=== PATIENT | female | born 1975 | race Hispanic/Latino ===

== ENCOUNTER 2020-02-18 09:48 | Emergency (ER) | payer OTHER ==
[2020-02-18] MEDS ORDERED: KETOROLAC 30 MG/ML INJ ONE (10:41)
[2020-02-18 10:46] LABS: Absolute Lymphocytes (CBC) 1.8 K/uL (0.7-4.9); Basophils % 0.7 % (0-1.3); Hematocrit 38.1 % (36.0-45.0); Lymphocytes % 20.5 % (15.3-44.8); MPV 9.2 fL (7.6-11.3); RBC Red Blood Cell Count 4.45 M/uL (3.86-4.86)
[2020-02-18 11:02] LABS: Potassium 4.1 mmol/L (3.5-5.1)
--- NOTE | 2020-02-18 11:31 | RAD REPORT ---
EXAM DESCRIPTION: CT - Chest For Pe Angio - 02/18/2020 11:22 am CLINICAL HISTORY: CHEST PAIN COMPARISON: Chest Single View dated 02/18/2020 TECHNIQUE: Dynamically enhanced 3 mm thick images of the chest were obtained during administration o f approximately 150mL Isovue 370 IV contrast. Coronal and oblique MIP reconstruction images were gene rated and reviewed. Exam utilizes a protocol to evaluate the pulmonary arterial tree. All CT scans are performed using dose optimization technique as appropriate and may include automated exposure control or mA/KV adjustment according to patient size. FINDINGS: No pulmonary emboli are identified. The aorta as imaged shows no acute or suspicious finding. No pericardial thickening or effusion. No infiltrate or suspicious mass lesion identified. No interstitial edema suspected. Patient has a fe w small subpleural nodules 4 mm or less in size. The size these are not regarded as significant. No p leural effusion or pleural thickening. No mediastinal or hilar suspicious masses. No chest wall masses or abnormal axillary lymphadenopathy. No sub clinical rib fracture or pathologic rib process identifiable. IMPRESSION: No pulmonary emboli identified. As detailed above, no acute or significant findings identifiable.
[2020-02-18] MEDS ORDERED: ONDANSETRON 4 MG/2 ML VIAL ONE (11:43)
[2020-02-18] MEDS ORDERED: MEPERIDINE HCL 25 MG/ML SYR ONE (11:43)
--- NOTE | 2020-02-18 12:06 | RAD REPORT ---
EXAM DESCRIPTION: RAD - Chest Single View - 02/18/2020 11:07 am CLINICAL HISTORY: CHEST PAIN, left-sided rib pain COMPARISON: June 2014 TECHNIQUE: AP portable chest image was obtained 02/18/2020 11:07 am . FINDINGS: Lungs are clear. Heart and vasculature are normal. No measurable pleural effusion and no p neumothorax. No acute bony abnormality seen. No acute aortic findings suspected. IMPRESSION: No acute cardiopulmonary process. No significant interval change.
--- NOTE | 2020-02-18 12:12 | EDPHYS ---
Physician Documentation [facility] Name: Rody Carroll Age: 44 yrs Sex: Female : 1975 Arrival Date: 02/18/2020 Time: 09:49 Bed 5 Private MD: ED Physician Nic Bates HPI: 02/17 10:26 This 44 yrs old Female presents to ER via Ambulatory with complaints of Back rn Pain, Rib Pain. 10:26 This 44 yrs old Female presents to ER via Ambulatory with complaints of rib rn pain. 10:26 The patient presents with pain that is acute, with no known mechanism of injury. rn 10:27 The patient or guardian reports chest pain that is located primarily in the left rn lateral posterior chest. Onset: 2 week(s) ago. The pain does not radiate. Associated signs and symptoms: Pertinent positives: cough, Pertinent negatives: abdominal pain, diaphoresis, lightheadedness, near syncope, recent travel, shortness of breath, syncope. The chest pain is described as sharp, stabbing. Duration: The patient or guardian reports multiple episodes, that are intermittent. Modifying factors: The symptoms are alleviated by nothing. the symptoms are aggravated by deep breath, movement, palpation of area. Severity of pain: At its worst the pain was moderate in the emergency department the pain is unchanged. The patient has not experienced similar symptoms in the past. Reports left posterior lateral rib pain, no trauma, + smoker, no hemoptysis. Reports pain with deep breath and palpation. Does not feel ill. . 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 - Social history:: Smoking status: Patient reports the use of cigarette tobacco products, smokes one pack cigarettes per day. - Family history:: not pertinent. - Hospitalizations: : No recent hospitalization is reported. ROS: 10:27 Constitutional: Negative for fever, chills, and weight loss, Eyes: Negative for injury, rn pain, redness, and discharge, Cardiovascular: Negative for palpitations, and edema, Respiratory: Negative for shortness of breath, wheezing Abdomen/GI: Negative for abdominal pain, nausea, vomiting, diarrhea, and constipation, Back: Negative for injury and pain, MS/Extremity: Negative for injury and deformity, Skin: Negative for injury, rash, and discoloration, Neuro: Negative for headache, weakness, numbness, tingling, and seizure. Exam: 10:27 Constitutional: This is a well developed, well nourished patient who is awake, alert, rn and in no acute distress. Head/Face: Normocephalic, atraumatic. Chest/axilla: Normal chest wall appearance and motion. Cardiovascular: Regular rate and rhythm. No pulse deficits. Respiratory: No increased work of breathing, no retractions or nasal flaring. Clear bilateral breath sounds. Abdomen/GI: soft, non-tender Back: No spinal tenderness. No costovertebral tenderness. Full range of motion. Skin: Warm, dry with normal turgor. Normal color with no rashes, no lesions, and no evidence of cellulitis. MS/ Extremity: Pulses equal, no cyanosis. Neurovascular intact. Full, normal range of motion. Equal circumference. Neuro: Awake and alert, GCS 15 Vital Signs: 09:55 BP 138 / 86; Pulse 101; Resp 19; Temp 98.0(O); Pulse Ox 99% on R/A; Weight 90.72 kg; ss Height 5 ft. 5 in. (165.10 cm); Pain 10/10; 10:40 BP 109 / 98; Pulse 89; Resp 18; Pulse Ox 98% on R/A; tw2 11:00 BP 111 / 84; Pulse 87; Resp 17; Pulse Ox 100% on R/A; tw2 11:27 Pain 9/10; tw2 12:00 BP 104 / 72; Pulse 85; Resp 20; Pulse Ox 98% ; tw2 09:55 Body Mass Index 33.28 (90.72 kg, 165.10 cm) ss MDM: 09:58 Patient medically screened. rn 12:09 Differential diagnosis: acute pericarditis, anxiety, chest wall pain, costochondritis, rn gastroesophageal reflux disease (GERD), pericarditis, pleurisy, pneumonia, pneumothorax, pulmonary embolus. Data reviewed: vital signs, nurses notes, lab test result(s), EKG, radiologic studies, CT scan, plain films, and as a result, I will discharge patient. Counseling: I had a detailed discussion with the patient and/or guardian regarding: the historical points, exam findings, and any diagnostic results supporting the discharge/admit diagnosis, lab results, radiology results, the need for outpatient follow up, to return to the emergency department if symptoms worsen or persist or if there are any questions or concerns that arise at home. Response to treatment: the patient's symptoms have mildly improved after treatment, and as a result, I will discharge patient. Special discussion: I discussed with the patient/guardian in detail that at this point there is no indication for admission to the hospital. It is understood, however, that if the symptoms persist or worsen the patient needs to return immediately for re-evaluation. ED course: No acute findings on bloodwork or CT PE protocol. Will dc home with recommendation to quit smoking and anti-inflammatories. . 12:12 Counseling: I had a detailed discussion with the patient and/or guardian regarding: rn smoking cessation. 02/17 10:16 Order name: CBC with Diff; Complete Time: 11: rn 02/17 10:16 Order name: Basic Metabolic Panel; Complete Time: 11: rn 02/17 10:16 Order name: XRAY Chest (1 view); Complete Time: 12:07 rn 02/17 10:16 Order name: D-Dimer; Complete Time: 11: rn 02/17 11:03 Order name: CT Chest For PE Angio; Complete Time: 12:07 rn 02/17 10:16 Order name: IV Start; Complete Time: 10:38 rn 02/17 10:16 Order name: EKG; Complete Time: 10:17 rn 02/17 10:16 Order name: EKG - Nurse/Tech; Complete Time: 11:02 rn Administered Medications: 10:38 Drug: TORadol - Ketorolac 15 mg Route: IVP; Site: left antecubital; tw2 11:27 Follow up: Pain 12/24 Adult; Response: No adverse reaction; Pain is unchanged, physician tw2 notified 11:32 Drug: Zofran (Ondansetron) 4 mg Route: IVP; Site: left antecubital; tw2 12:00 Follow up: Response: No adverse reaction tw2 11:34 Drug: Demerol 25 mg {Note: RASS 0.} Route: IVP; Site: left antecubital; tw2 12:00 Follow up: Response: No adverse reaction; Pain is decreased; RASS: Alert and Calm (0) tw2 Disposition: 02/18/20 12:11 Discharged to Home. Impression: Pleurisy. - Condition is Stable. - Discharge Instructions: Pleurisy. - Prescriptions for Ibuprofen 800 mg Oral Tablet - take 1 tablet by ORAL route every 12 hours As needed take with food; 20 tablet. - Medication Reconciliation Form, Thank You Letter, Antibiotic Education, Prescription Opioid Use, Work release form form. - Follow up: Private Physician; When: As needed; Reason: Recheck today's complaints, Re-evaluation by your physician. - Problem is new. - Symptoms have improved. Signatures: Dispatcher [employer] EDMS Nic Bates MD MD rn Smirch, Shelby, RN RN ss Wise, Tara, RN RN tw2 Corrections: (The following items were deleted from the chart) 12:29 12:11 02/18/2020 12:11 Discharged to Home. Impression: Pleurisy. Condition is Stable. tw2 Forms are Medication Reconciliation Form, Thank You Letter, Antibiotic Education, Prescription Opioid Use. Follow up: Private Physician; When: As needed; Reason: Recheck today's complaints, Re-evaluation by your physician. Problem is new. Symptoms have improved. rn
--- NOTE | 2020-02-18 12:12 | ER ---
Nurse's Notes [facility] Name: Rody Carroll Age: 44 yrs Sex: Female : 1975 Arrival Date: 02/18/2020 Time: 09:49 Bed 5 Private MD: Diagnosis: Pleurisy Presentation: 02/17 09:55 Chief complaint: Patient states: pain to L side of ribs x 2 weeks. No known injury. Pt ss states. "I just woke up like this one day." Denies fever, cough and/or SOB. Coronavirus screen: Client denies travel out of the [place] in the last 14 days. At this time, the client does not indicate any symptoms associated with coronavirus-19. Ebola Screen: Patient denies exposure to infectious person. Patient denies travel to an Ebola-affected area in the 21 days before illness onset. Initial Sepsis Screen: Does the patient meet any 2 criteria? HR > 90 bpm. No. Patient's initial sepsis screen is negative. Does the patient have a suspected source of infection? No. Patient's initial sepsis screen is negative. Risk Assessment: Do you want to hurt yourself or someone else? Patient reports no desire to harm self or others. Onset of symptoms was February 04, 2020. 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 - Social history:: Smoking status: Patient reports the use of cigarette tobacco products, smokes one pack cigarettes per day. - Family history:: not pertinent. - Hospitalizations: : No recent hospitalization is reported. Screenin:00 Abuse screen: Denies threats or abuse. Nutritional screening: No deficits noted. tw2 Tuberculosis screening: No symptoms or risk factors identified. Fall Risk None identified. Assessment: 10:10 General: Appears in no apparent distress. well groomed, Behavior is calm, cooperative, tw2 appropriate for age. Pain: Complains of pain in left lateral posterior chest. Neuro: Level of Consciousness is awake, alert, obeys commands, Oriented to person, place, time, situation. Cardiovascular: Heart tones S1 S2 Capillary refill < 3 seconds Patient's skin is warm and dry. Respiratory: Airway is patent Respiratory effort is even, unlabored, Respiratory pattern is regular, agonal Breath sounds are clear bilaterally. Respiratory: Reports cough that is non-productive. GI: No signs and/or symptoms were reported involving the gastrointestinal system. Abdomen is round non-distended, Bowel sounds present X 4 quads. : No signs and/or symptoms were reported regarding the genitourinary system. EENT: No signs and/or symptoms were reported regarding the EENT system. Derm: No signs and/or symptoms reported regarding the dermatologic system. Musculoskeletal: Reports pain in left lateral posterior chest. 11:00 Reassessment: Patient appears in no apparent distress at this time. No changes from tw2 previously documented assessment. Patient and/or family updated on plan of care and expected duration. Pain level reassessed. Patient is alert, oriented x 3, equal unlabored respirations, skin warm/dry/pink. xray at bedside at this time. 11:27 Reassessment: pt back from CT at this time, states "my pain is still the same not tw2 better, can i get something else for pain", provider notified and medicated as ordered. 12:15 Reassessment: Patient appears in no apparent distress at this time. No changes from tw2 previously documented assessment. Patient and/or family updated on plan of care and expected duration. Pain level reassessed. Patient is alert, oriented x 3, equal unlabored respirations, skin warm/dry/pink. 12:15 Reassessment: provider at bedside at this time discussing results. tw2 12:20 Reassessment: pt in restroom at this time. tw2 12:28 Reassessment: Patient appears in no apparent distress at this time. No changes from tw2 previously documented assessment. Patient and/or family updated on plan of care and expected duration. Pain level reassessed. Patient is alert, oriented x 3, equal unlabored respirations, skin warm/dry/pink. Vital Signs: 09:55 BP 138 / 86; Pulse 101; Resp 19; Temp 98.0(O); Pulse Ox 99% on R/A; Weight 90.72 kg; ss Height 5 ft. 5 in. (165.10 cm); Pain 10/10; 10:40 BP 109 / 98; Pulse 89; Resp 18; Pulse Ox 98% on R/A; tw2 11:00 BP 111 / 84; Pulse 87; Resp 17; Pulse Ox 100% on R/A; tw2 11:27 Pain 9/10; tw2 12:00 BP 104 / 72; Pulse 85; Resp 20; Pulse Ox 98% ; tw2 09:55 Body Mass Index 33.28 (90.72 kg, 165.10 cm) ED Course: 09:49 Patient arrived in ED. as 09:56 Triage completed. ss 09:57 Arm band placed on right wrist. ss 09:58 Nic Bates MD is Attending Physician. rn 09:59 Kaley Blanco RN is Primary Nurse. tw2 10:00 Placed in gown. Bed in low position. Call light in reach. Pulse ox on. NIBP on. Warm tw2 blanket given. 10:35 Inserted saline lock: 20 gauge in left antecubital area, using aseptic technique. Blood tw2 collected. 10:59 Notified ED physician of a critical lab result(s). D-Dimer 815 per Mer Morales Tech. tw2 11:07 XRAY Chest (1 view) In Process Unspecified. EDMS 11:23 CT Chest For PE Angio In Process Unspecified. EDMS 12:29 No provider procedures requiring assistance completed. IV discontinued, intact, tw2 bleeding controlled, No redness/swelling at site. Pressure dressing applied. Administered Medications: 10:38 Drug: TORadol - Ketorolac 15 mg Route: IVP; Site: left antecubital; tw2 11:27 Follow up: Pain 9/10 Adult; Response: No adverse reaction; Pain is unchanged, physician tw2 notified 11:32 Drug: Zofran (Ondansetron) 4 mg Route: IVP; Site: left antecubital; tw2 12:00 Follow up: Response: No adverse reaction tw2 11:34 Drug: Demerol 25 mg {Note: RASS 0.} Route: IVP; Site: left antecubital; tw2 12:00 Follow up: Response: No adverse reaction; Pain is decreased; RASS: Alert and Calm (0) tw2 Outcome: 12:11 Discharge ordered by . rn 12:29 Discharged to home ambulatory, with friend. tw2 12:29 Condition: stable 12:29 Discharge instructions given to patient, friend, Instructed on discharge instructions, follow up and referral plans. medication usage, Demonstrated understanding of instructions, follow-up care, medications, Prescriptions given X 1. 12:29 Patient left the ED. tw2 Signatures: Dispatcher [employer] EDAyleen Palencia Roman, MD MD rn Smirch, Shelby, RN RN Kaley Blanco RN RN tw2 Corrections: (The following items were deleted from the chart) 11:35 10:34 Demerol 25 mg IVP in left antecubital tw2 tw2
[2020-02-18 12:59] VITALS: TEMP 98
[2020-02-18 13:12] VITALS: BP 104/72; O2SAT 98
--- NOTE | 2020-02-19 07:35 | EKG ---
Test Date: 2020-02-18 Test Time: 10:30:34 Driver Wheelchair: BONITA MEASUREMENT RESULTS: Intervals: Rate: 81 CO: 132 QRSD: 76 QT: 376 QTc: 436 [place]: P: 62 CO: 132 QRS: 70 T: 51 INTERPRETIVE STATEMENTS: Normal sinus rhythm Normal ECG Compared to ECG 01/31/2015 20:56:26 No significant changes Electronically Signed On 02-19-20 07:32:34 PORTABLE PINCH RIVETER by Saji Heard
== END 2020-02-18 12:29 | disposition home or self-care (01) ==
LOC: ER 09:48
DX: R09.1 Pleurisy (principal); I10 Essential (primary) hypertension; F17.210 Nicotine dependence, cigarettes, uncomplicated
CPT/HCPCS: 93005; 85025; 80048; 36415; 85379; 71275; 71045; 96375; 96374; 99284; Q9967; J2175; J2405

== ENCOUNTER 2020-03-29 19:21 | Emergency (ER) | payer OTHER ==
--- OUTSIDE RECORDS SUMMARY | 2020-03-29 19:22 | XMS REPORT | Summary of Care ---
:1975 Author Organization [address] [address] Care Team Providers Name Role Phone Pcp, Does Not Have A Primary Care Provider Reason for Visit Reason Comments Refill Request Encounter Details Date Type Department Care Team Description 01/27/2020 Refill [facility] Internal Yolande Saldivar, AGRONOMY LOCATION MANAGER Refill Request Medicine- [address] [facility] [place] [address] [facility] Baljit Kate, [address] [place] [address] Allergies No Known Allergiesdocumented as of this encounter (statuses as of 01/29/2020) Medications Medication Sig Dispensed Refills Start End Status Date Date albuterol 90 Inhale 2 8.5 g 2 Active mcg/actuation inhaler Puffs every 6 8 (six) hours as needed for Wheezing or Shortness of Breath. famotidine (PEPCID AC) Take 1 tablet 60 tablet 2 Active 20 mg by mouth 2 0 tabletIndications: (two) times Gastroesophageal reflux daily. disease, esophagitis presence not specified phenytoin Extended Take 4 360 capsule 3 Active (DILANTIN) 100 mg capsules by 0 capsuleIndications: mouth daily. Schizophrenia, unspecified type levothyroxine 150 mcg Take 1 tablet 90 tablet 3 Active tabletIndications: by mouth 0 Hypothyroidism, every unspecified type morning. cholestyramine 4 gram Take 0.5 180 g 2 Active powderIndications: Packets by 0 Postcholecystectomy mouth 3 diarrhea (three) times daily with meals. lithium carbonate 300 Take 100 mg 0 Active mg tablet by mouth 2 0 (two) times daily. FLUoxetine 60 mg tablet Take 60 mg by 0 Active mouth daily. 0 QUEtiapine 200 mg Take 200 mg 0 Active tablet by mouth at 0 bedtime. pantoprazole 40 mg EC Take 1 tablet 90 tablet 1 Active tabletIndications: by mouth once 0 Gastroesophageal reflux daily as disease, esophagitis needed for presence not specified Indigestion. LORazepam 1 mg Take 1 tablet 10 tablet 0 A ctive tabletIndications: by mouth once 0 Panic disorder daily as needed for Anxiety or Agitation. doxycycline monohydrate Take 1 28 capsule 0 Active 100 mg capsule by 0 capsuleIndications: mouth 2 (two) Hidradenitis times daily. suppurativa FLUTICASONE PROPIONATE SHAKE LIQUID 16 g 3 Active 50 mcg/actuation nasal AND USE 2 0 sprayIndications: SPRAYS IN Allergic rhinitis, EACH NOSTRIL unspecified DAILY seasonality, unspecified trigger fluticasone propionate Use 2 Sprays 16 g 3 01/14 5/2 Discontinued (FLONASE ALLERGY in each 0 020 RELIEF) 50 nostril mcg/actuation nasal daily. sprayIndications: Allergic rhinitis, unspecified seasonality, unspecified trigger documented as of this encounter (statuses as of 01/29/2020) Active Problems Problem Noted Date Other specified complication of , unspecified as to episode of 11/05/2008 care documented as of this encounter (statuses as of 01/29/2020) Social History Tobacco Use Types Packs/Day Years Used Date Current Every Day Smoker Smokeless Tobacco: Never Used Alcohol Use Drinks/Week oz/Week Comments No Sex Assigned at Date Recorded Not on file documented as of this encounter Last Filed Vital Signs Not on filedocumented in this encounter Plan of Treatment Health Maintenance Due Date Last Done Comments PNEUMOCOCCAL 0-64 YEARS COMBINED SERIES (1 1982 of 1 - PPSV23) DTaP,Tdap,and Td Vaccines (1 - Tdap) 12/12/1995 Breast Cancer Screening (MAMMOGRAM) 04/05/2019 04/05/2018 INFLUENZA VACCINE (#1) 2019 Depression Screening 04/04/2020 04/04/2019, 04/04/2019 PAP SMEAR 03/16/2021 03/16/2018 documented as of this encounter Results Not on filedocumented in this encounter Visit Diagnoses Diagnosis Allergic rhinitis, unspecified seasonali ty, unspecified trigger documented in this encounter Insurance Payer Benefit Plan / Subscriber ID Effective Phone Address T ype Group Dates [facility] MEDICAID OF [id number] 2019-Pres [phone] [facility] [id number] [place] [address] [facility] MEDICAID OF [id number] 2019-Pres [phone] [address] Medi [facility] ent [phone] [place] [address] [employer] [id number] 2019-Pres [address] [place] [id number] [place] [address] [employer] VISION - [employer] VISION [id number] 2017-Pre ELKR IDGE Vision MANAGED sent [address] MEDICAID [address] [place] [id number] [facility] TDCJ [id number] 2018-Pres [place] [address] documented as of this encounter
--- OUTSIDE RECORDS SUMMARY | 2020-03-29 19:22 | XMS REPORT | Continuity of Care Document ---
:1975 Author Organization [facility] t Address [address] [place] [address] [address] [place] [address] Care Team Providers Name Role Phone Liyah Pinto Attending Clinician Saba CARLOS Attending Clinician Samuel Rice Attending Clinician Problems This patient has no known problems. Allergies, Adverse Reactions, Alerts This patient has no known allergies or adverse reactions. Medications This patient has no known medications. Procedures This patient has no known procedures. Encounters Start End Encounter Admission Attending Care Care Encounter Source Date/Time Date/Time Type Type Clinicians Facility Department ID 2020-03-09 2020-03-09 Refill Yariel [facility] [id number] 00:00:00 00:00:00 Qi Pelletier PRIMARY [id number] CARE [id number] PAVILLION [id number] 2020-01-27 2020-01-27 Refill Yariel [facility] [id number] 00:00:00 00:00:00 Qi M PRIMARY [id number] CARE [id number] PAVILLION [id number] 2019-12-28 2019-12-28 RefKENDAL Reynaga [id number] 00:00:00 00:00:00 Magda PRIMARY [id number] CARE [id number] PAVILLION [id number] 2019-12-24 2019-12-24 [facility] [id number] 00:00:00 00:00:00 Magda PRIMARY [id number] CARE [id number] PAVILLION [id number] 2019-12-12 2019-12-12 Refill Nba, [facility] [id number] 00:00:00 00:00:00 Maria L J PRIMARY [id number] CARE [id number] PAVILLION [id number] 2019-12-09 2019-12-09 Refill Nba, [facility] [id number] 00:00:00 00:00:00 Maria L J PRIMARY [id number] CARE [id number] PAVILLION [id number] 2019-12-09 2019-12-09 [facility] [id number] 00:00:00 00:00:00 Qi M PRIMARY [id number] CARE [id number] PAVILLION [id number] 2019-12-04 2019-12-04 [place] [facility] [id number] 00:00:00 00:00:00 Magda PRIMARY [id number] CARE [id number] PAVILLION [id number] 2019-12-02 2019-12-02 [facility] [id number] 09:06:15 10:45:17 Visit Maria L J PRIMARY [id number] CARE [id number] PAVILLION [id number] 2017-09-05 2017-10-23 [facility] [id number] [place] 00:00:00 00:00:00 [facility] 2017-10-18 2017-10-18 [facility] [id number] [place] 21:09:01 21:09:01 [facility] 2016-04-27 2016-09-27 Outpatient [facility] [id number] [address] [place] [address] 00:00:00 00:00:00 [facility] Results This patient has no known results.
--- OUTSIDE RECORDS SUMMARY | 2020-03-29 19:23 | XMS REPORT | Summary of Care ---
:1975 Author Organization [address] [address] Care Team Providers Name Role Phone Pcp, Does Not Have A Primary Care Provider Reason for Visit Reason Comments Refill Request Encounter Details Date Type Department Care Team Description 03/09/2020 Refill [facility] [place] Internal Yolande Saldivar, ACCOUNTS OFFICER Refill Request Medicine- [address] [facility] [place] [address] [facility] Baljit Kate, [address] [place] [address] Allergies No Known Allergiesdocumented as of this encounter (statuses as of 03/09/2020) Medications Medication Sig Dispensed Refills Start Date End Date Status albuterol 90 Inhale 2 Puffs 8.5 g 2 08/30/2017 A ctive mcg/actuation inhaler every 6 (six) hours as needed for Wheezing or Shortness of Breath. famotidine (PEPCID AC) 20 Take 1 tablet 60 tablet 2 07/08/2019 Active mg tabletIndications: by mouth 2 Gastroesophageal reflux (two) times disease, esophagitis daily. presence not specified phenytoin Extended Take 4 360 capsule 3 09/02/2019 Active (DILANTIN) 100 mg capsules by capsuleIndications: mouth daily. Schizophrenia, unspecified type levothyroxine 150 mcg Take 1 tablet 90 tablet 3 09/02/2019 Active tabletIndications: by mouth every Hypothyroidism, morning. unspecified type cholestyramine 4 gram Take 0.5 180 g 2 09/02/2019 Active powderIndications: Packets by Postcholecystectomy mouth 3 diarrhea (three) times daily with meals. lithium carbonate 300 mg Take 100 mg by 0 09/28/2019 Active tablet mouth 2 (two) times daily. FLUoxetine 60 mg tablet Take 60 mg by 0 11/06/2019 Active mouth daily. QUEtiapine 200 mg tablet Take 200 mg by 0 11/04/2019 Active mouth at bedtime. pantoprazole 40 mg EC Take 1 tablet 90 tablet 1 12/02/2019 Active tabletIndications: by mouth once Gastroesophageal reflux daily as disease, esophagitis needed for presence not specified Indigestion. LORazepam 1 mg Take 1 tablet 10 tablet 0 12/02/2019 Active tabletIndications: Panic by mouth once disorder daily as needed for Anxiety or Agitation. doxycycline monohydrate Take 1 capsule 28 capsule 0 12/04/2019 Active 100 mg by mouth 2 capsuleIndications: (two) times Hidradenitis suppurativa daily. FLUTICASONE PROPIONATE 50 SHAKE LIQUID 16 g 3 01/29/2020 Active mcg/actuation nasal AND USE 2 sprayIndications: SPRAYS IN EACH Allergic rhinitis, NOSTRIL DAILY unspecified seasonality, unspecified trigger documented as of this encounter (statuses as of 03/09/2020) Active Problems Problem Noted Date Other specified complication of , unspecified as to episode of 11/05/2008 care documented as of this encounter (statuses as of 03/09/2020) Social History Tobacco Use Types Packs/Day Years Used Date Current Every Day Smoker Smokeless Tobacco: Never Used Alcohol Use Drinks/Week oz/Week Comments No Sex Assigned at Date Recorded Not on file documented as of this encounter Last Filed Vital Signs Not on filedocumented in this encounter Miscellaneous Notes Telephone Encounter - Dannie Gonzalez MA - 03/09/2020 1:07 PM 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ICA[facility] OF [id number] 2019-Pres [phone] [facility] ent [phone] [place] [address] [facility] [id number] 2019-Pres [phone] [facility] ent [phone] [place] [address] [employer] [id number] 2019-Pres [address] [place] [id number] [place] [address] BLOCK VISION - BLOCK VISION [id number] 2017-Pre ELKR IDGE Vision MANAGED sent [address] MEDICAID [address] [place] [id number] [facility] TDCJ [id number] 2018-Pres [address] [place] [address] [place] [address] documented as of this encounter
--- NOTE | 2020-03-29 21:23 | RAD REPORT ---
EXAM DESCRIPTION: RAD - Hip Right 2 View - 03/29/2020 9:16 pm CLINICAL HISTORY: PAIN COMPARISON: Hip Right 2 View dated 06/19/2012 FINDINGS: No fracture, dislocation or AVN.
--- NOTE | 2020-03-29 21:24 | RAD REPORT ---
EXAM DESCRIPTION: RAD - Pelvis - 03/29/2020 9:16 pm CLINICAL HISTORY: PAIN COMPARISON: No comparisons FINDINGS: Metallic clip like structure superimposed on the midline of the sacrum. No acute bony abno rmality of the pelvis is seen. No AVN pattern.
[2020-03-29 21:28] LABS: Basophils % 0.9 % (0-1.3); Hematocrit 32.6 % (36.0-45.0); Lymphocytes % 21.9 % (15.3-44.8); MPV 9.1 fL (7.6-11.3); RBC Red Blood Cell Count 3.77 M/uL (3.86-4.86)
[2020-03-29] MEDS ORDERED: MEPERIDINE HCL 50 MG/ML ONE (21:34)
[2020-03-29] MEDS ORDERED: dexAMETHasone 10 MG/ML VIAL ONE (21:34)
[2020-03-29 21:41] LABS: C-Reactive Protein 8.49 mg/L (<3.00); Potassium 3.9 mmol/L (3.5-5.1)
[2020-03-29] MEDS ORDERED: MORPHINE 4 MG/ML SYR ONE (22:16)
--- NOTE | 2020-03-29 23:28 | ER ---
Nurse's Notes [facility] Name: Rody Doan Age: 44 yrs Sex: Female : 1975 Arrival Date: 03/29/2020 Time: 19:21 Bed 7 Private MD: Diagnosis: Radiculopathy, lumbosacral region;Pain in right hip Presentation: 03/29 19:35 Chief complaint: Patient states: R hip pain x 3 days. Hurts more with movement. Started ca1 with stiffness and sore, now I can't even walk. Denies injury. Pt crying in triage. Coronavirus screen: Client denies travel out of the [place] in the last 14 days. At this time, the client does not indicate any symptoms associated with coronavirus-19. Ebola Screen: Patient negative for fever greater than or equal to 101.5 degrees Fahrenheit, and additional compatible Ebola Virus Disease symptoms Patient denies exposure to infectious person. Patient denies travel to an Ebola-affected area in the 21 days before illness onset. No symptoms or risks identified at this time. Initial Sepsis Screen: Does the patient meet any 2 criteria? No. Patient's initial sepsis screen is negative. Does the patient have a suspected source of infection? No. Patient's initial sepsis screen is negative. Risk Assessment: Do you want to hurt yourself or someone else? Patient reports no desire to harm self or others. Onset of symptoms was March 29, 2020. 19:35 Method Of Arrival: Wheelchair ca1 19:35 Acuity: MEGHA 3 wh [employer]: 19:38 LMP N/A - Hysterectomy ca1 Historical: - Allergies: 23:43 Toradol; mg2 - PMHx: 19:37 Anxiety; Bipolar disorder; Depression; Hypertension; Hypothyroidism; ca1 - PSHx: 19:37 Cholecystectomy; Hysterectomy; ca1 - Immunization history:: Adult Immunizations up to date, Flu vaccine is not up to date. - Social history:: Smoking status: Patient reports the use of cigarette tobacco products, smokes one pack cigarettes per day. - Family history:: not pertinent. - Hospitalizations: : No recent hospitalization is reported. Screenin:00 Abuse screen: Denies threats or abuse. Denies injuries from another. Nutritional wh screening: No deficits noted. Tuberculosis screening: No symptoms or risk factors identified. Fall Risk None identified. Assessment: 21:00 General: Appears in no apparent distress. uncomfortable, Behavior is calm, cooperative, wh appropriate for age. Pain: Complains of pain in RIGHT HIP Pain radiates to right leg Pain currently is 9 out of 10 on a pain scale. Quality of pain is described as stabbing, Pain began 2-3 days ago. Neuro: Level of Consciousness is awake, alert, obeys commands, Oriented to person, place, time, situation, Appropriate for age. Cardiovascular: Capillary refill < 3 seconds. Respiratory: Airway is patent Respiratory effort is even, unlabored, Respiratory pattern is regular, symmetrical. GI: Abdomen is non-distended. : No signs and/or symptoms were reported regarding the genitourinary system. EENT: No signs and/or symptoms were reported regarding the EENT system. Derm: Skin is intact, is healthy with good turgor, Skin is pink, warm \T\ dry. normal. Musculoskeletal: Circulation, motion, and sensation intact. 21:52 Reassessment: Patient appears in no apparent distress at this time. No changes from previously documented assessment. Patient and/or family updated on plan of care and expected duration. Pain level reassessed. Patient is alert, oriented x 3, equal unlabored respirations, skin warm/dry/pink. 22:07 Reassessment: Ultrasound at bedside. 23:30 Reassessment: Patient appears in no apparent distress at this time. Patient and/or family updated on plan of care and expected duration. Pain level reassessed. Patient is alert, oriented x 3, equal unlabored respirations, skin warm/dry/pink. Vital Signs: 19:35 BP 120 / 79; Pulse 96; Resp 16 S; Temp 98.7(TE); Pulse Ox 99% on R/A; Weight 90.72 kg ca1 (R); Height 5 ft. 4 in. (162.56 cm) (R); Pain 10/10; 22:00 BP 117 / 63; Pulse 91; Resp 18; Pulse Ox 96% on R/A; wh 23:15 BP 115 / 75; Pulse 86; Resp 18; Pulse Ox 100% on R/A; wh 19:35 Body Mass Index 34.33 (90.72 kg, 162.56 cm) ca1 ED Course: 19:21 Patient arrived in ED. cl3 19:37 Triage completed. ca1 19:37 Arm band placed on right wrist. ca1 20:50 Nic Bates MD is Attending Physician. rn 20:59 Kathi Wallace is Primary Nurse. wh 21:00 Patient has correct armband on for positive identification. Bed in low position. Call light in reach. Side rails up X 1. Pulse ox on. NIBP on. 21:16 XRAY Hip RIGHT 2 view In Process Unspecified. EDMS 21:16 XRAY Pelvis In Process Unspecified. EDMS 21:20 Inserted saline lock: 20 gauge in right antecubital area, using aseptic technique. Blood collected. 22:21 US Extrmty Nonvasular Limited In Process Unspecified. EDMS 22:52 Hip Right W Con In Process Unspecified. EDMS 23:51 No provider procedures requiring assistance completed. IV discontinued, intact, mg2 bleeding controlled, No redness/swelling at site. Pressure dressing applied. 23:51 Crutch training done. mg2 Administered Medications: 21:24 Drug: Demerol 50 mg {Note: RASS 0.} Route: IVP; Site: right antecubital; 22:07 Follow up: Response: No adverse reaction; Pain is decreased; RASS: Alert and Calm (0) 21:26 Drug: Decadron - Dexamethasone 10 mg Route: IVP; Site: right antecubital; 22:07 Follow up: Response: No adverse reaction 22:07 Drug: morphine 4 mg {Note: RASS 0.} Route: IVP; Site: right antecubital; 23:04 Follow up: Response: No adverse reaction mg2 23:42 Not Given (Physician Discretion): TORadol - Ketorolac 15 mg IVP once mg2 23:48 CANCELLED (intended to order one): [place] 5 mg-325 mg 2 tabs PO once; RASS on ADMIN: ll2 Combtv4, Very Agttd3, Agttd2, Rstlss1, AlertClm0, Drwsy-1, Lt Sdtn-2, Mod Sdtn-3, Dp Sdtn-4, UnArsble-5 23:48 Drug: [place] 5 mg-325 mg 1 tabs Route: PO; ll2 Outcome: 23:27 Discharge ordered by . rn 23:51 Discharged to home via wheelchair, with crutches, with family. mg2 23:51 Condition: stable 23:51 Discharge instructions given to patient, family, Instructed on discharge instructions, follow up and referral plans. medication usage, crutch walking, Demonstrated understanding of instructions, follow-up care, medications, crutch walking, Prescriptions given X 2. 23:51 Patient left the ED. mg2 Signatures: Dispatcher [employer] EDMS Nic Bates MD MD rn [place], [facility] João Joiner RN RN mg2 Nicole Howe RN RN ca1 Virginia Maier cl3 Amanda Lynne RN RN ll2 Corrections: (The following items were deleted from the chart) 19:38 19:35 Pulse 105bpm; Resp 16bpm; Spontaneous; Pulse Ox 99% RA; Temp 98.7F Temporal; ca1 90.72 kg Reported; Height 5 ft. 4 in. Reported; BMI: 34.3; Pain 10/10; ca1 20:59 19:35 Acuity: MEGHA 4 [facility] 23:41 21:54 BP 117 / 63; Pulse 91bpm; Resp 18bpm; Pulse Ox 96% RA; [facility] 23:43 19:37 Allergies: No Known Allergies; ca1 mg2
--- NOTE | 2020-03-29 23:28 | EDPHYS ---
Physician Documentation [facility] Name: Rody Doan Age: 44 yrs Sex: Female : 1975 Arrival Date: 03/29/2020 Time: 19:21 Bed 7 Private MD: ED Physician Nic Bates HPI: 03/29 21:00 This 44 yrs old Female presents to ER via Wheelchair with complaints of Hip rn Pain. 21:00 The patient or guardian reports pain. that occurred at home, sustained from unknown rn reason, There is no obvious deformity, The patient is able to ambulate with assistance. The patient is able to bear partial body weight. The complaints affect the right hip. Onset: The symptoms/episode began/occurred 3 day(s) ago. Modifying factors: The symptoms are alleviated by nothing, the symptoms are aggravated by weight bearing. Associated signs and symptoms: Pertinent negatives: dysuria, fever, weakness. Severity of symptoms: At their worst the symptoms were moderate, in the emergency department the symptoms are unchanged. The patient has not experienced similar symptoms in the past. The patient has not recently seen a physician. Reports right hip pain, no injury, began 3 days ago, no fever. Reports worse with ambulating. Better when sitting. No hx of joint infections or inflammatory processes. Reports chronically bad back. No recent injury, began slow and getting worse. Taking baclofen and not helping. . 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 - Social history:: Smoking status: Patient reports the use of cigarette tobacco products, smokes one pack cigarettes per day. - Family history:: not pertinent. - Hospitalizations: : No recent hospitalization is reported. ROS: 21:00 Constitutional: Negative for fever, chills, and weight loss, Eyes: Negative for injury, rn pain, redness, and discharge, Neck: Negative for injury, pain, and swelling, Cardiovascular: Negative for chest pain, palpitations, and edema, Respiratory: Negative for shortness of breath, cough, wheezing, and pleuritic chest pain, Abdomen/GI: Negative for abdominal pain, nausea, vomiting, diarrhea, and constipation, Back: Negative for injury and pain, : Negative for injury, bleeding, discharge, and swelling, MS/Extremity: + right hip and thigh pain Skin: Negative for injury, rash, and discoloration, Neuro: Negative for headache, weakness, numbness, tingling, and seizure. Exam: 21:00 Constitutional: This is a well developed, well nourished patient who is awake, alert, rn seems uncomfortable when walking. Head/Face: Normocephalic, atraumatic. Neck: Trachea midline, no masses palpated, and no cervical lymphadenopathy. Supple, full range of motion without nuchal rigidity, or vertebral point tenderness. No Meningismus. Cardiovascular: Regular rate and rhythm. No pulse deficits. Respiratory: No increased work of breathing, no retractions or nasal flaring. Abdomen/GI: soft, non-tender Back: No spinal tenderness. No costovertebral tenderness. Full range of motion. Skin: Warm, dry, no lesions or fluctuance near hip MS/ Extremity: Pulses equal, no cyanosis. Neurovascular intact. Pain with ambulation, but able to let me flex/extend passively without pain. Neuro: Awake and alert, GCS 15, oriented to person, place, time, and situation. Cranial nerves II-XII grossly intact. Motor strength 5/5 in all extremities. Sensory grossly intact. Vital Signs: 19:35 BP 120 / 79; Pulse 96; Resp 16 S; Temp 98.7(TE); Pulse Ox 99% on R/A; Weight 90.72 kg ca1 (R); Height 5 ft. 4 in. (162.56 cm) (R); Pain 10/10; 22:00 BP 117 / 63; Pulse 91; Resp 18; Pulse Ox 96% on R/A; wh 23:15 BP 115 / 75; Pulse 86; Resp 18; Pulse Ox 100% on R/A; wh 19:35 Body Mass Index 34.33 (90.72 kg, 162.56 cm) ca1 MDM: 20:51 Patient medically screened. rn 21:55 Differential diagnosis: bursitis, arthritis, strain, radiculopathy, hip effusion. Data rn reviewed: vital signs, nurses notes, lab test result(s). ED course: WBC normal, slight elevation of CRP, ordered ct hip and u/s right hip to eval for effusion/possible infection right hip.. 23:00 ED course: P[place] checked, 190/351/151/340. No active pain medication currently. rn Will dc home with tramadol and steroids. has muscle relaxers. No fluid collection on U/S, WBC and procal neg. . 23:27 ED course: No acute findings on CT either. Will dc home with return precautions. . rn 03/29 20:59 Order name: CBC with Diff; Complete Time: 21:37 rn 03/29 20:59 Order name: Basic Metabolic Panel; Complete Time: 21:52 rn 03/29 19:44 Order name: XRAY Hip RIGHT 2 view; Complete Time: 21:30 rn 03/29 19:44 Order name: XRAY Pelvis; Complete Time: 21:30 rn 03/29 20:59 Order name: Procalcitonin; Complete Time: 22:12 rn 03/29 20:59 Order name: CRP; Complete Time: 21:52 rn 03/29 21:55 Order name: US Extrmty Nonvasular Limited rn 03/29 21:57 Order name: Hip Right W Con EDMS 03/29 20:59 Order name: IV Start; Complete Time: 21:18 rn 03/29 23:31 Order name: Crutches; Complete Time: 23:40 Administered Medications: 21:24 Drug: Demerol 50 mg {Note: RASS 0.} Route: IVP; Site: right antecubital; 22:07 Follow up: Response: No adverse reaction; Pain is decreased; RASS: Alert and Calm (0) 21:26 Drug: Decadron - Dexamethasone 10 mg Route: IVP; Site: right antecubital; 22:07 Follow up: Response: No adverse reaction 22:07 Drug: morphine 4 mg {Note: RASS 0.} Route: IVP; Site: right antecubital; 23:04 Follow up: Response: No adverse reaction mg2 23:42 Not Given (Physician Discretion): TORadol - Ketorolac 15 mg IVP once mg2 23:48 CANCELLED (intended to order one): [place] 5 mg-325 mg 2 tabs PO once; RASS on ADMIN: ll2 Combtv4, Very Agttd3, Agttd2, Rstlss1, AlertClm0, Drwsy-1, Lt Sdtn-2, Mod Sdtn-3, Dp Sdtn-4, UnArsble-5 23:48 Drug: [place] 5 mg-325 mg 1 tabs Route: PO; ll2 Disposition: 03/29/20 23:27 Discharged to Home. Impression: Radiculopathy, lumbosacral region, Pain in right hip. - Condition is Stable. - Discharge Instructions: Joint Pain, Lumbosacral Radiculopathy, Musculoskeletal Pain. - Prescriptions for Tramadol 50 mg Oral Tablet - take 1 tablet by ORAL route every 8 hours as needed; 15 tablet. Medrol (Chente) 4 mg Oral Tablets, Dose Pack - take 1 tablet by ORAL route as directed - follow package instructions; 1 packet. - Medication Reconciliation Form, Thank You Letter, Antibiotic Education, Prescription Opioid Use form. - Follow up: Private Physician; When: As needed; Reason: Recheck today's complaints, Re-evaluation by your physician. - Problem is new. - Symptoms have improved. Signatures: Dispatcher [employer] EDMS Nic Bates MD MD rn [place], João Hampton RN RN mg2 Nicole Howe RN RN ca1 Amanda Lynne RN RN ll2 Corrections: (The following items were deleted from the chart) 23:43 19:37 Allergies: No Known Allergies; ca1 mg2 23:48 23:42 [place] 5 mg-325 mg 2 tabs PO once; RASS on ADMIN: Combtv4, Very Agttd3, Agttd2, ll2 Rstlss1, AlertClm0, Drwsy-1, Lt Sdtn-2, Mod Sdtn-3, Dp Sdtn-4, UnArsble-5 ordered. mg2 23:51 23:27 03/29/2020 23:27 Discharged to Home. Impression: Radiculopathy, lumbosacral mg2 region; Pain in right hip. Condition is Stable. Discharge Instructions: Joint Pain, Lumbosacral Radiculopathy, Musculoskeletal Pain. Prescriptions for Tramadol 50 mg Oral Tablet - take 1 tablet by ORAL route every 8 hours as needed; 15 tablet, Medrol (Chente) 4 mg Oral Tablets, Dose Pack - take 1 tablet by ORAL route as directed - follow package instructions; 1 packet. and Forms are Medication Reconciliation Form, Thank You Letter, Antibiotic Education, Prescription Opioid Use. Follow up: Private Physician; When: As needed; Reason: Recheck today's complaints, Re-evaluation by your physician. Problem is new. Symptoms have improved. rn
[2020-03-29] MEDS ORDERED: KETOROLAC 30 MG/ML INJ ONE (23:51)
[2020-03-29] MEDS ORDERED: HYDROCODONE/APAP 5/325 MG TAB ONE (23:58)
--- NOTE | 2020-03-30 11:26 | RAD REPORT ---
EXAM DESCRIPTION: CT - Hip Right W Con - 03/30/2020 6:54 am CLINICAL HISTORY: 44-year-old female with hip pain. COMPARISON: RIGHT hip sonography. TECHNIQUE: CT of the RIGHT side pelvis was performed following intravenous administration of contras t. Oral contrast was not administered. Multiplanar reformatted images were provided. This exam was pe rformed according to our departmental dose optimization program which includes use of automated expos ure control, adjustment of the mA and/or kV according to patient size and/or use of iterative reconst ruction technique. FINDINGS: Visualized pelvic contents: The vessels are patent and normal in caliber. No abdominopelvic lymph nodes are noted to be pathologically enlarged by CT measurement criteria. The bowel is within normal limits without abnormal bowel wall thickness or bowel dilation. No free air. No free abdominopelvic fluid collections. The appendix is not identified. RIGHT adnexal cyst versus dominant follicle measures 2 cm. Bones/soft tissues: The osseous structures are within normal limits. The soft tissues appear to be wi thin normal limits of a contrast-enhanced CT examination. IMPRESSION: 1. No specific acute intra-abdominal findings are noted to suggest etiology of the patie nt's right-sided hip pain. If the patient's symptoms persist, increase sensitivity evaluation follow- up MRI may be considered. 2. 2 cm benign appearing ovarian cyst. No follow-up imaging is recommended. Reference: J Am Lloyd Radiol 2013;10:[id number] Electronically signed by: Sofia Cazares MD 03/29/2020 11:18 PM FURNACE ERECTOR Due to temporary technical issues with the PACS/Fluency reporting system, reports are being signed by the in house radiologist without review as a courtesy to ensure prompt reporting. The interpreting r adiologist is fully responsible for the content of the report.
--- NOTE | 2020-03-30 11:35 | RAD REPORT ---
EXAM DESCRIPTION: US - Extremity Nonvascular Limited - 03/29/2020 10:28 pm CLINICAL HISTORY: Hip pain, eval for hip effusion TECHNIQUE: Real time mcconnell scale sonographic images of the right hip were submitted. COMPARISON: None available for comparison FINDINGS: No appreciable joint effusion. No focal fluid collection. IMPRESSION: No focal fluid collection or joint effusion. Electronically signed by: Cat Michel MD 03/29/2020 10:46 PM TOOL DRESSER Due to temporary technical issues with the PACS/Fluency reporting system, reports are being signed by the in house radiologist without review as a courtesy to ensure prompt reporting. The interpreting r adiologist is fully responsible for the content of the report.
[2020-04-01 14:19] VITALS: TEMP 98.7
[2020-04-01 14:22] VITALS: BP 115/75; O2SAT 100
== END 2020-03-29 23:51 | disposition home or self-care (01) ==
LOC: ER 19:21
DX: M54.17 Radiculopathy, lumbosacral region (principal); I10 Essential (primary) hypertension; F17.210 Nicotine dependence, cigarettes, uncomplicated; Z88.5 Allergy status to narcotic agent
CPT/HCPCS: 85025; 80048; 36415; 84145; 86140; 73701; 72170; 73502; 76882; 96375; 96374; 99284; Q9967; J1100; J2175

== ENCOUNTER 2020-03-31 08:16 | Emergency (ER) | payer OTHER ==
--- OUTSIDE RECORDS SUMMARY | 2020-03-31 08:18 | XMS REPORT | Continuity of Care Document ---
:1975 Author Organization [facility] t Address [address] [place] [address] Care Team Providers Name Role Phone Liyah [...] Type Clinicians Facility Department ID 2020-03-09 2020-03-09 RefKENDAL Casas 1.2.840.114 [id number] 00:00:00 00:00:00 Qi Pelletier PRIMARY [id number] CARE [id number] PAVILLION [id number] 2020-01-27 2020-01-27 RefKENDAL Casas 1.2.840.114 [id number] 00:00:00 00:00:00 [place] M PRIMARY [id number] CARE [id number] PAVILLION [id number] 2019-12-28 2019-12-28 KENDAL Pizarro 1.2.840.114 [id number] 00:00:00 00:00:00 Magda PRIMARY [id number] CARE [id number] PAVILLION [id number] 2019-12-24 2019-12-24 KENDAL Pizarro 1.2.840.114 [id number] 00:00:00 00:00:00 Magda PRIMARY [id number] CARE [id number] PAVILLION [id number] 2019-12-12 2019-12-12 Refill Nba, [facility] 1.2.840.114 [id number] 00:00:00 00:00:00 Maria L J PRIMARY [id number] CARE [id number] PAVILLION [id number] 2019-12-09 2019-12-09 Refill Nba, [facility] 1.2.840.114 [id number] 00:00:00 00:00:00 Maria L J PRIMARY [id number] CARE [id number] PAVILLION [id number] 2019-12-09 2019-12-09 Refill Yariel, [facility] 1.2.840.114 [id number] 00:00:00 00:00:00 [place] M PRIMARY [id number] CARE [id number] PAVILLION [id number] 2019-12-04 2019-12-04 [place] Saba [facility] 1.2.840.114 [id number] 00:00:00 00:00:00 Magda PRIMARY [id number] CARE [id number] PAVILLION [id number] 2019-12-02 2019-12-[address] [facility] 1.2.840.114 [id number] 09:06:15 10:45:17 Visit Maria L J PRIMARY [id number] CARE [id number] PAVILLION [id number] 2017-09-05 2017-10-23 [facility] [id number] [place] 00:00:00 00:00:00 [facility] 2017-10-18 2017-10-18 Out[facility] [id number] [place] 21:09:01 21:09:01 [facility] 2016-04-27 2016-09-27 [facility] [id number] [address] [place] [address] 00:00:00 00:00:00 [facility] Results This patient has no known results.
--- NOTE | 2020-03-31 09:36 | RAD REPORT ---
EXAM DESCRIPTION: CT - Spine Lumbar Wo Con - 03/31/2020 9:14 am CLINICAL HISTORY: Radiculopathy. Pain;Radiculopathy COMPARISON: No comparisons TECHNIQUE: Axial noncontrast CT imaging of the lumbar spine was performed with coronal and sagittal re-formatted images. All CT scans are performed using dose optimization technique as appropriate and may include automated exposure control or mA/KV adjustment according to patient size. FINDINGS: No acute lumbar spine fracture seen. No aggressive marrow pattern or malalignment. Paraspinal tissues are normal in thickness. No paraspinal abscess or hematoma seen. Vacuum disc degeneration with a posterior disc bulge at L5-S1 seen. There is mild narrowing of both e xit foramina caused by this. Severe canal or foraminal stenosis not seen at any level. IMPRESSION: No acute lumbar spine abnormality. Mild spondylosis L5-S1.
[2020-03-31] MEDS ORDERED: MORPHINE 4 MG/ML SYR ONE (09:46)
[2020-03-31] MEDS ORDERED: dexAMETHasone 10 MG/ML VIAL ONE (09:46)
[2020-03-31] MEDS ORDERED: NA CHLORIDE 0.9% 1,000 ML ONE (09:47)
[2020-03-31] MEDS ORDERED: KETOROLAC 30 MG/ML INJ ONE (09:47)
[2020-03-31] MEDS ORDERED: ONDANSETRON 4 MG/2 ML VIAL ONE (09:47)
[2020-03-31] MEDS ORDERED: DIAZEPAM 5 MG TABLET ONE (09:48)
[2020-03-31 09:55] LABS: Absolute Lymphocytes (CBC) 1.7 K/uL (0.7-4.9); Basophils % 0.7 % (0-1.3); Hematocrit 36.5 % (36.0-45.0); Lymphocytes % 14.4 % (15.3-44.8); MPV 9.6 fL (7.6-11.3); RBC Red Blood Cell Count 4.22 M/uL (3.86-4.86)
[2020-03-31 10:02] LABS: Albumin 4.5 g/dL (3.4-5.0); Bilirubin Total 0.4 mg/dL (0.2-1.0); Potassium 3.1 mmol/L (3.5-5.1); Protein, Total 8.8 g/dL (6.4-8.2)
--- NOTE | 2020-03-31 11:22 | ER ---
Nurse's Notes [facility] Name: Rody Doan Age: 44 yrs Sex: Female : 1975 Arrival Date: 03/31/2020 Time: 08:18 Bed 18 Private MD: Diagnosis: Sciatica, right side;Spondylolysis, lumbar region;Bipolar disorder;Hypokalemia Presentation: 03/31 08:40 Chief complaint: Patient states: "I am in so much pain. I was seen recently and was jd3 told I have a pinched nerve and it is getting worse. I was given Tramadol and Ibuprofen and it is not helping.". Coronavirus screen: At this time, the client does not indicate any symptoms associated with coronavirus-19. Ebola Screen: Patient negative for fever greater than or equal to 101.5 degrees Fahrenheit, and additional compatible Ebola Virus Disease symptoms. Initial Sepsis Screen: Does the patient meet any 2 criteria? No. Patient's initial sepsis screen is negative. Does the patient have a suspected source of infection? No. Patient's initial sepsis screen is negative. Risk Assessment: Do you want to hurt yourself or someone else? Patient reports no desire to harm self or others. Onset of symptoms was March 30, 2020. 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 - Social history:: Smoking status: unknown. - Family history:: not pertinent. Screenin:49 Abuse screen: Denies threats or abuse. Denies injuries from another. Nutritional zb screening: No deficits noted. Tuberculosis screening: No symptoms or risk factors identified. Fall Risk None identified. Fall in past 12 months (25 points). No secondary diagnosis (0 pts). IV access (20 points). Ambulatory Aid- Crutches/Cane/Walker (15 pts). Gait- Weak (10 pts.). Mental Status- Oriented to own ability (0 pts). Total Cobb Fall Scale indicates High Risk Score (45 or more points). Fall prevention measures have been instituted. Side Rails Up X 2 Placed Close to Nursing Station Frequent Obs/Assessments Occuring Family Present and informed to notify staff if the need to leave the bedside As available patient and family educated on Fall Prevention Program and Strategies. Assessment: 09:30 General: Appears in no apparent distress. uncomfortable, Behavior is cooperative, zb anxious, fussy. Pain: Complains of pain in Right low back Pain radiates to Right leg Pain currently is 10 out of 10 on a pain scale. Quality of pain is described as radiating, sharp, Pain began 3 hours ago. Is continuous, Alleviated by nothing. Aggravated by increased activity, repositioning, weight bearing. Neuro: Level of Consciousness is awake, alert, obeys commands, Oriented to person, place, time, situation. Cardiovascular: Capillary refill < 3 seconds in bilateral fingers Patient's skin is warm and dry. Respiratory: Airway is patent Respiratory effort is even, unlabored, Respiratory pattern is regular, symmetrical. GI: Abdomen is round non-distended. : No signs and/or symptoms were reported regarding the genitourinary system. EENT: No signs and/or symptoms were reported regarding the EENT system. Derm: No signs and/or symptoms reported regarding the dermatologic system. Skin is intact, is healthy with good turgor, Skin is normal. Musculoskeletal: Circulation, motion, and sensation intact. Capillary refill Range of motion: limited in RLE. 10:30 Reassessment: Patient appears in no apparent distress at this time. No changes from zb previously documented assessment. Patient is alert, oriented x 3, equal unlabored respirations, skin warm/dry/pink. pt expresses pain. friend at bedside. 11:30 Reassessment: Patient appears in no apparent distress at this time. No changes from zb previously documented assessment. Patient is alert, oriented x 3, equal unlabored respirations, skin warm/dry/pink. pt talking with friend at bedside. states her pain is feeling better Patient states feeling better. Patient states symptoms have improved. Vital Signs: 08:44 BP 129 / 99; Pulse 110; Resp 20 S; Temp 97.3(TE); Pulse Ox 100% on R/A; Weight 90.72 kg jd3 (R); Height 5 ft. 5 in. (165.10 cm) (R); Pain 10/10; 11:54 BP 147 / 65; Pulse 120; Resp 18; Pulse Ox 100% on R/A; zb 08:44 Body Mass Index 33.28 (90.72 kg, 165.10 cm) jd3 ED Course: 08:18 Patient arrived in ED. as 08:35 Perry Rueda MD is Attending Physician. olya 08:43 Triage completed. jd3 08:44 Arm band placed on. jd3 08:59 Christie Baird, BONIFACIO is Primary Nurse. zb 09:[address] via wheelchair. sw 09:12 CT completed. Pt tolerated procedure poorly. Patient moved back from CT. sw 09:13 CT Lumbar Spine Wo Con In Process Unspecified. EDMS 09:30 Inserted saline lock: 20 gauge in right antecubital area, using aseptic technique. zb 09:50 No provider procedures requiring assistance completed. zb 09:52 Patient has correct armband on for positive identification. Bed in low position. Call zb light in reach. Side rails up X 1. Door closed. Noise minimized. Warm blanket given. 11:21 Vince Kohli MD is Referral Physician. olya 11:56 IV discontinued, intact, bleeding controlled, No redness/swelling at site. Pressure zb dressing applied. Administered Medications: 09:43 Drug: morphine 4 mg Route: IVP; Site: right antecubital; zb 11:47 Follow up: Response: Pain is decreased; RASS: Alert and Calm (0) zb 09:43 Drug: Zofran (Ondansetron) 4 mg Route: IVP; Site: right antecubital; zb 10:00 Follow up: Response: No adverse reaction zb 09:43 Drug: Valium 5 mg Route: PO; zb 10:00 Follow up: Response: No adverse reaction zb 09:44 Drug: TORadol 30 mg Route: IVP; Site: right antecubital; zb 10:00 Follow up: Response: No adverse reaction; Pain is decreased zb 11:47 Follow up: Response: No adverse reaction zb 09:46 Drug: NS 0.9% 1000 ml Route: IV; Rate: 1 bolus; Site: right antecubital; zb 10:30 Follow up: Response: No adverse reaction; IV Status: Completed infusion; IV Intake: zb 1000ml 09:46 Drug: Decadron - Dexamethasone 10 mg Route: IVP; Site: right antecubital; zb 11:48 Follow up: Response: No adverse reaction zb 11:45 Drug: Potassium Effervescent Tablet 50 mEq Route: PO; zb 11:48 Follow up: Response: No adverse reaction zb Intake: 10:30 IV: 1000ml; Total: 1000ml. zb Outcome: 11:21 Discharge ordered by MD. dobson 11:55 Discharged to home ambulatory, via wheelchair, with family. zb 11:55 Condition: good 11:55 Discharge instructions given to patient, Instructed on discharge instructions, follow up and referral plans. medication usage, Demonstrated understanding of instructions, follow-up care, medications, Prescriptions given X 3. 11:57 Patient left the ED. zb Signatures: Dispatcher [employer] Perry Maguire MD MD cha Martinez, Ayleen Hawkins, Sonny Johnson RN RN Christie Medina RN BONIFACIO white
--- NOTE | 2020-03-31 11:22 | EDPHYS ---
Physician Documentation [facility] Name: Rody Doan Age: 44 yrs Sex: Female : 1975 Arrival Date: 03/31/2020 Time: 08:18 Bed 18 Private MD: JOSHUA Physician Perry Rueda HPI: 03/31 09:40 This 44 yrs old Female presents to ER via Wheelchair with complaints of olya Sciatica. 09:40 The patient presents with pain that is acute, with no known mechanism of injury, and olya decreased range of motion. The symptoms are located in the low back. Onset: The symptoms/episode began/occurred 2 day(s) ago. The pain radiates to the right low back. Associated signs and symptoms: The patient has no apparent associated signs or symptoms. The problem was sustained from unknown cause. Modifying factors: The patient symptoms are alleviated by nothing, remaining still, the patient symptoms are aggravated by any movement, bending. Severity of symptoms: At their worst the symptoms were moderate, severe, in the emergency department the symptoms are unchanged. The patient has experienced similar episodes in the past, several times. 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 - Social history:: Smoking status: unknown. - Family history:: not pertinent. ROS: 09:40 Constitutional: Negative for fever, chills, and weight loss, Eyes: Negative for injury, olya pain, redness, and discharge, ENT: Negative for injury, pain, and discharge, Neck: Negative for injury, pain, and swelling, Cardiovascular: Negative for chest pain, palpitations, and edema, Respiratory: Negative for shortness of breath, cough, wheezing, and pleuritic chest pain, Abdomen/GI: Negative for abdominal pain, nausea, vomiting, diarrhea, and constipation, : Negative for injury, bleeding, discharge, and swelling, MS/Extremity: Negative for injury and deformity, Skin: Negative for injury, rash, and discoloration, Neuro: Negative for headache, weakness, numbness, tingling, and seizure, Psych: Negative for depression, anxiety, suicide ideation, homicidal ideation, and hallucinations, Allergy/Immunology: Negative for hives, rash, and allergies, Endocrine: Negative for neck swelling, polydipsia, polyuria, polyphagia, and marked weight changes, Hematologic/Lymphatic: Negative for swollen nodes, abnormal bleeding, and unusual bruising. 09:40 Back: Positive for decreased range of motion, radiated pain. Exam: 09:40 Constitutional: This is a well developed, well nourished patient who is awake, alert, olya and in no acute distress. Head/Face: Normocephalic, atraumatic. Eyes: Pupils equal round and reactive to light, extra-ocular motions intact. Lids and lashes normal. Conjunctiva and sclera are non-icteric and not injected. Cornea within normal limits. Periorbital areas with no swelling, redness, or edema. ENT: Nares patent. No nasal discharge, no septal abnormalities noted. Tympanic membranes are normal and external auditory canals are clear. Oropharynx with no redness, swelling, or masses, exudates, or evidence of obstruction, uvula midline. Mucous membranes moist. Neck: Trachea midline, no thyromegaly or masses palpated, and no cervical lymphadenopathy. Supple, full range of motion without nuchal rigidity, or vertebral point tenderness. No Meningismus. Chest/axilla: Normal chest wall appearance and motion. Nontender with no deformity. No lesions are appreciated. Cardiovascular: Regular rate and rhythm with a normal S1 and S2. No gallops, murmurs, or rubs. Normal PMI, no JVD. No pulse deficits. Respiratory: Lungs have equal breath sounds bilaterally, clear to auscultation and percussion. No rales, rhonchi or wheezes noted. No increased work of breathing, no retractions or nasal flaring. Abdomen/GI: Soft, non-tender, with normal bowel sounds. No distension or tympany. No guarding or rebound. No evidence of tenderness throughout. Skin: Warm, dry with normal turgor. Normal color with no rashes, no lesions, and no evidence of cellulitis. MS/ Extremity: Pulses equal, no cyanosis. Neurovascular intact. Full, normal range of motion. Neuro: Awake and alert, GCS 15, oriented to person, place, time, and situation. Cranial nerves II-XII grossly intact. Motor strength 5/5 in all extremities. Sensory grossly intact. Cerebellar exam normal. Normal gait. Psych: Awake, alert, with orientation to person, place and time. Behavior, mood, and affect are within normal limits. 09:40 Back: pain, that is mild, ROM is painful, normal spinal alignment noted, CVA tenderness, is absent, vertebral tenderness, is not appreciated, muscle spasm, is appreciated in the right mid back and right low back. Vital Signs: 08:44 BP 129 / 99; Pulse 110; Resp 20 S; Temp 97.3(TE); Pulse Ox 100% on R/A; Weight 90.72 kg jd3 (R); Height 5 ft. 5 in. (165.10 cm) (R); Pain 10/10; 11:54 BP 147 / 65; Pulse 120; Resp 18; Pulse Ox 100% on R/A; zb 08:44 Body Mass Index 33.28 (90.72 kg, 165.10 cm) jd3 MDM: 08:35 Patient medically screened. olya 09:42 Differential diagnosis: chronic back pain, Fatigue Fracture Obesity ruptured disc, olya Scoliosis spinal injury, Ureterolithiasis vertebral fracture. Data reviewed: vital signs, nurses notes, lab test result(s), radiologic studies, CT scan. Data interpreted: shelter monitor: rate is 110 beats/min, rhythm is regular, Pulse oximetry: on. Counseling: I had a detailed discussion with the patient and/or guardian regarding: the historical points, exam findings, and any diagnostic results supporting the discharge/admit diagnosis, lab results, radiology results, the need for outpatient follow up, for definitive care, a family practitioner, a neurologist. 03/31 08:38 Order name: CBC with Diff; Complete Time: 11:19 [facility] 03/31 08:38 Order name: Comprehensive Metabolic Panel; Complete Time: 11:19 [facility] 03/31 08:38 Order name: CT Lumbar Spine Wo Con; Complete Time: 11:19 [facility] 03/31 09:40 Order name: [place]; Complete Time: 11:19 [facility] 03/31 09:40 Order name: Dilantin; Complete Time: 11:19 [facility] Administered Medications: 09:43 Drug: morphine 4 mg Route: IVP; Site: right antecubital; zb 11:47 Follow up: Response: Pain is decreased; RASS: Alert and Calm (0) zb 09:43 Drug: Zofran (Ondansetron) 4 mg Route: IVP; Site: right antecubital; zb 10:00 Follow up: Response: No adverse reaction zb 09:43 Drug: Valium 5 mg Route: PO; zb 10:00 Follow up: Response: No adverse reaction zb 09:44 Drug: TORadol 30 mg Route: IVP; Site: right antecubital; zb 10:00 Follow up: Response: No adverse reaction; Pain is decreased zb 11:47 Follow up: Response: No adverse reaction zb 09:46 Drug: NS 0.9% 1000 ml Route: IV; Rate: 1 bolus; Site: right antecubital; zb 10:30 Follow up: Response: No adverse reaction; IV Status: Completed infusion; IV Intake: zb 1000ml 09:46 Drug: Decadron - Dexamethasone 10 mg Route: IVP; Site: right antecubital; zb 11:48 Follow up: Response: No adverse reaction zb 11:45 Drug: Potassium Effervescent Tablet 50 mEq Route: PO; zb 11:48 Follow up: Response: No adverse reaction zb Disposition: 03/31/20 11:21 Discharged to Home. Impression: Sciatica, right side, Spondylolysis, lumbar region, Bipolar disorder, Hypokalemia. - Condition is Stable. - Discharge Instructions: Potassium Content of Foods, Sciatica, Sciatica, [id number], Hypokalemia, Radicular Pain, Back Exercises. - Prescriptions for Ibuprofen 600 mg Oral Tablet - take 1 tablet by ORAL route every 8 hours As needed take with food; 21 tablet. Medrol (Chente) 4 mg Oral Tablets, Dose Pack - take 1 tablet by ORAL route as directed - follow package instructions; 1 packet. Cyclobenzaprine 5 mg Oral Tablet - take 1 tablet by ORAL route 3 times per day As needed; 15 tablet. - Medication Reconciliation Form, Thank You Letter, Antibiotic Education, Prescription Opioid Use form. - Follow up: Private Physician; When: 2 - 3 days; Reason: Recheck today's complaints, Continuance of care, Re-evaluation by your physician. Follow up: Vince Kohli MD; When: 5 - 6 days; Reason: Recheck today's complaints, Re-evaluation by your physician. - Problem is new. - Symptoms have improved. Signatures: Dispatcher [employer] EDPerry Mcgill MD MD cha Davies, Jonathon RN RN Christie Medina RN RN zb Corrections: (The following items were deleted from the chart) 11:57 11:21 03/31/2020 11:21 Discharged to Home. Impression: Sciatica, right side; zb Spondylolysis, lumbar region; Bipolar disorder; Hypokalemia. Condition is Stable. Forms are Medication Reconciliation Form, Thank You Letter, Antibiotic Education, Prescription Opioid Use. Follow up: Private Physician; When: 2 - 3 days; Reason: Recheck today's complaints, Continuance of care, Re-evaluation by your physician. Follow up: Vince Kohli; When: 5 - 6 days; Reason: Recheck today's complaints, Re-evaluation by your physician. Problem is new. Symptoms have improved. olya
[2020-03-31] MEDS ORDERED: POTASSIUM 25 MEQ EFFERV TAB ONE (11:42)
[2020-04-02 02:14] VITALS: TEMP 97.3; O2SAT 100
[2020-04-02 02:15] VITALS: BP 147/65
== END 2020-03-31 11:57 | disposition home or self-care (01) ==
LOC: ER 08:16
DX: M54.31 Sciatica, right side (principal); M47.896 Other spondylosis, lumbar region; E87.6 Hypokalemia; F31.9 Bipolar disorder, unspecified; I10 Essential (primary) hypertension; Z88.5 Allergy status to narcotic agent
CPT/HCPCS: 96361; 85025; 36415; 80178; 80185; 80053; 72131; 96375; 96374; 99284; J1100; J7030; J2405

== ENCOUNTER 2020-07-14 07:13 | Emergency (ER) | payer OTHER ==
--- OUTSIDE RECORDS SUMMARY | 2020-07-14 07:15 | XMS REPORT | Continuity of Care Document ---
:1975 Author Organization [facility] t Address [address] [place] [address] Care Team Providers Name Role Phone Josep Montgomery DO Attending Clinician Liyah Pinto Attending Clinician Saba CARLOS Attending [...] Date/Time Type Type Clinicians Facility Department ID 2020-07-01 2020-07-01 Patient Ulises [facility] 1.2.840.114 [id number] 00:00:00 00:00:00 Outreach Kirk PRIMARY [id number] Josep CARE [id number] PAVILLION [id number] 2020-03-09 2020-03-09 [facility] 1.2.840.114 [id number] 00:00:00 00:00:00 Qi Pelletier PRIMARY [id number] CARE [id number] PAVILLION [id number] 2020-01-27 2020-01-27 [facility] 1.2.840.114 [id number] 00:00:00 00:00:00 Qi Pelletier PRIMARY 350.1.13.10 CARE [id number] PAVILLION [id number] 2019-12-28 2019-12-28 [facility] 1.2.840.114 [id number] 00:00:00 00:00:00 Magda PRIMARY 350.1.13.10 CARE [id number] PAVILLION [id number] 2019-12-24 2019-12-24 [facility] 1.2.840.114 [id number] 00:00:00 00:00:00 Magda PRIMARY 350.1.13.10 CARE [id number] PAVILLION [id number] 2019-12-12 2019-12-12 [facility] 1.2.840.114 [id number] 00:00:00 00:00:00 Maria L J PRIMARY 350.1.13.10 CARE [id number] PAVILLION [id number] 2019-12-09 2019-12-09 [facility] 1.2.840.114 [id number] 00:00:00 00:00:00 Maria L J PRIMARY 350.1.13.10 CARE [id number] PAVILLION [id number] 2019-12-09 2019-12-09 [facility] 1.2.840.114 [id number] 00:00:00 00:00:00 Qi M PRIMARY 350.1.13.10 CARE [id number] PAVILLION [id number] 2019-12-04 2019-12-04 [place] [facility] 1.2.840.114 [id number] 00:00:00 00:00:00 Magda PRIMARY 350.1.13.10 CARE [id number] PAVILLION [id number] 2019-12-02 2019-12-02 Office [facility] 1.2.840.114 [id number] 09:06:15 10:45:17 Visit Maria L J PRIMARY [id number] CARE [id number] PAVILLION [id number] 2017-09-05 2017-10-23 Outpatient [facility] [id number] [place] 00:00:00 00:00:00 [facility] 2017-10-18 2017-10-18 [facility] [id number] [place] 21:09:01 21:09:01 [facility] 2016-04-27 2016-09-27 Outpatient [facility] [id number] [place] 00:00:00 00:00:00 [facility] Results This patient has no known results.
--- NOTE | 2020-07-14 08:30 | RAD REPORT ---
EXAM DESCRIPTION: RAD - Chest Pa And Lat (2 Views) - 07/14/2020 8:21 am CLINICAL HISTORY: Cough;Congestion Chest pain. COMPARISON: Chest Single View dated 02/18/2020; CHEST SINGLE VIEW dated 07/12/2014; CHEST SINGLE VIEW dated 02/06/2014; CHEST SINGLE VIEW dated 08/03/2012 FINDINGS: The lungs are clear. The heart is normal in size. No displaced fractures. IMPRESSION: No acute or concerning finding suspected.
--- NOTE | 2020-07-14 08:48 | ER ---
Nurse's Notes [facility] Name: Rody Doan Age: 44 yrs Sex: Female : 1975 Arrival Date: 07/14/2020 Time: 07:20 Bed 2 Private MD: Diagnosis: Cough;Bronchitis, not specified as acute or chronic;Tobacco abuse counseling;Tobacco use;Chronic laryngitis Presentation: 07/14 07:32 Chief complaint: Patient states: headache \T\ dry cough x 2 months. Hoarseness and chest ss soreness that began 3 weeks ago. Denies fever. Coronavirus screen: Client denies travel out of the [place] in the last 14 days. Client presents with at least one sign or symptom that may indicate coronavirus-19. Standard/surgical mask placed on the client. Provider contacted for isolation considerations. Ebola Screen: Patient denies exposure to infectious person. Patient denies travel to an Ebola-affected area in the 21 days before illness onset. Initial Sepsis Screen: Does the patient meet any 2 criteria? No. Patient's initial sepsis screen is negative. Does the patient have a suspected source of infection? No. Patient's initial sepsis screen is negative. Risk Assessment: Do you want to hurt yourself or someone else? Patient reports no desire to harm self or others. Onset of symptoms was May 15, 2020. 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 - Social history:: Smoking status: Patient reports the use of cigarette tobacco products, smokes one pack cigarettes per day. - Family history:: not pertinent. Screenin:55 Abuse screen: Denies threats or abuse. Denies injuries from another. Nutritional sv screening: No deficits noted. Tuberculosis screening: No symptoms or risk factors identified. Fall Risk None identified. Assessment: 08:40 General: Appears in no apparent distress. uncomfortable, well developed, Behavior is sv calm, cooperative, appropriate for age. Pain: Complains of pain in chest Pain currently is 7 out of 10 on a pain scale. Neuro: Level of Consciousness is awake, alert, obeys commands, Oriented to person, place, time, situation, Moves all extremities. Full function. Respiratory: Respiratory effort is even, unlabored, Respiratory pattern is regular, symmetrical. Derm: Skin is intact, Skin is pink, warm \T\ dry. Musculoskeletal: Range of motion: intact in all extremities. 09:05 Reassessment: Patient appears in no apparent distress at this time. No changes from sv previously documented assessment. Patient and/or family updated on plan of care and expected duration. Pain level reassessed. Patient is alert, oriented x 3, equal unlabored respirations, skin warm/dry/pink. Vital Signs: 07:32 BP 142 / 92; Pulse 68; Resp 16; Temp 97.7(O); Pulse Ox 100% on R/A; Weight 90.72 kg; ss Height 5 ft. 4 in. (162.56 cm); Pain 7/10; 07:32 Body Mass Index 34.33 (90.72 kg, 162.56 cm) ss ED Course: 07:20 Patient arrived in ED. ds1 07:35 Triage completed. ss 07:35 Arm band placed on right wrist. ss 07:41 Karla Morley, BONIFACIO is Primary Nurse. sv 07:43 Perry Rueda MD is Attending Physician. olya 07:55 ED physician to see patient. sv 07:55 Patient has correct armband on for positive identification. Bed in low position. Call sv light in reach. Door closed. Head of bed elevated. 08:22 Chest Pa And Lat (2 Views) XRAY In Process Unspecified. EDMS 08:39 EKG done, by ED staff, reviewed by Perry Rueda MD. sv 08:47 London Heredia MD is Referral Physician. olya 09:05 No provider procedures requiring assistance completed. Patient did not have IV access sv during this emergency room visit. Administered Medications: 08:44 Drug: Zithromax (azithromycin) 500 mg Route: PO; sv 09:04 Follow up: Response: No adverse reaction sv 08:45 Drug: Xopenex 1.25 mg Route: Inhalation; sv 08:45 Drug: AtroVENT Aerosol 0.5 mg Route: Inhalation; sv 09:04 Drug: Tussionex Pennkinetic ER (chlorpheniramine-hydrocodone) 5 ml Route: PO; sv 09:04 Follow up: Response: Medication administered at discharge. Outcome: 08:47 Discharge ordered by . olya 09:05 Patient left the ED. sv 09:05 Condition: good ss 09:05 Discharge instructions given to patient, Instructed on discharge instructions, follow up and referral plans. medication usage, Demonstrated understanding of instructions, follow-up care, medications, Prescriptions given X 4. Signatures: Dispatcher [employer] Karla Peres RN RN Perry Amos MD MD cha Sanford, Demi ds1 Earlene Osei RN RN ss Corrections: (The following items were deleted from the chart) 07:36 07:32 Chief complaint: Patient states: dry cough x 2 months. Hoarseness and chest ss soreness that began 3 weeks ago. Denies fever. ss
--- NOTE | 2020-07-14 08:49 | EDPHYS ---
Physician Documentation [facility] Name: Rody Doan Age: 44 yrs Sex: Female : 1975 Arrival Date: 07/14/2020 Time: 07:20 Bed 2 Private MD: JOSHUA Physician Perry Rueda HPI: 07/14 07:57 This 44 yrs old Female presents to ER via Wheelchair with complaints of Cough. olya 07:57 The patient or guardian reports cough, described as mild, difficulty breathing. Onset: olya The symptoms/episode began/occurred 14 day(s) ago. Severity of symptoms: At their worst the symptoms were mild, in the emergency department the symptoms are unchanged. Associated signs and symptoms: Pertinent positives: rhinorrhea, sore throat. The patient has experienced similar episodes in the past, several times. 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 - Social history:: Smoking status: Patient reports the use of cigarette tobacco products, smokes one pack cigarettes per day. - Family history:: not pertinent. ROS: 07:57 Constitutional: Negative for fever, chills, and weight loss, Eyes: Negative for injury, olya pain, redness, and discharge, ENT: Negative for injury, pain, and discharge, Neck: Negative for injury, pain, and swelling, Cardiovascular: Negative for chest pain, palpitations, and edema, Abdomen/GI: Negative for abdominal pain, nausea, vomiting, diarrhea, and constipation, Back: Negative for injury and pain, : Negative for injury, bleeding, discharge, and swelling, MS/Extremity: Negative for injury and deformity, Skin: Negative for injury, rash, and discoloration, Neuro: Negative for headache, weakness, numbness, tingling, and seizure, Psych: Negative for depression, anxiety, suicide ideation, homicidal ideation, and hallucinations, Allergy/Immunology: Negative for hives, rash, and allergies, Endocrine: Negative for neck swelling, polydipsia, polyuria, polyphagia, and marked weight changes, Hematologic/Lymphatic: Negative for swollen nodes, abnormal bleeding, and unusual bruising. 07:57 Respiratory: Positive for cough, shortness of breath, at rest. Exam: 07:57 Constitutional: This is a well developed, well nourished patient who is awake, alert, olya and in no acute distress. Head/Face: Normocephalic, atraumatic. Eyes: Pupils equal round and reactive to light, extra-ocular motions intact. Lids and lashes normal. Conjunctiva and sclera are non-icteric and not injected. Cornea within normal limits. Periorbital areas with no swelling, redness, or edema. ENT: Nares patent. No nasal discharge, no septal abnormalities noted. Tympanic membranes are normal and external auditory canals are clear. Oropharynx with no redness, swelling, or masses, exudates, or evidence of obstruction, uvula midline. Mucous membranes moist. Neck: Trachea midline, no thyromegaly or masses palpated, and no cervical lymphadenopathy. Supple, full range of motion without nuchal rigidity, or vertebral point tenderness. No Meningismus. Chest/axilla: Normal chest wall appearance and motion. Nontender with no deformity. No lesions are appreciated. Cardiovascular: Regular rate and rhythm with a normal S1 and S2. No gallops, murmurs, or rubs. Normal PMI, no JVD. No pulse deficits. Abdomen/GI: Soft, non-tender, with normal bowel sounds. No distension or tympany. No guarding or rebound. No evidence of tenderness throughout. Back: No spinal tenderness. No costovertebral tenderness. Full range of motion. Pelvic Exam: Normal external genitalia. Speculum exam with closed cervical os, no discharge or bleeding noted. Bimanual exam with normal adnexa, no adnexal or cervical motion tenderness. Normal uterus. Female : Normal external genitalia. Skin: Warm, dry with normal turgor. Normal color with no rashes, no lesions, and no evidence of cellulitis. MS/ Extremity: Pulses equal, no cyanosis. Neurovascular intact. Full, normal range of motion. Neuro: Awake and alert, GCS 15, oriented to person, place, time, and situation. Cranial nerves II-XII grossly intact. Motor strength 5/5 in all extremities. Sensory grossly intact. Cerebellar exam normal. Normal gait. Psych: Awake, alert, with orientation to person, place and time. Behavior, mood, and affect are within normal limits. 07:57 Respiratory: the patient does not display signs of respiratory distress, Respirations: normal, no acute changes, labored breathing, is not present, Breath sounds: rhonchi, that are mild, are scattered, Respiratory rate: 16 08:05 Musculoskeletal/extremity: DVT Exam: No signs of deep vein thrombosis. no pain, no olya swelling, no tenderness, negative Homans' sign noted on exam, no appreciated bluish discoloration, no erythema, no increased warmth. 08:47 ECG was reviewed by the Attending Physician. [facility] Vital Signs: 07:32 BP 142 / 92; Pulse 68; Resp 16; Temp 97.7(O); Pulse Ox 100% on R/A; Weight 90.72 kg; ss Height 5 ft. 4 in. (162.56 cm); Pain 7/10; 07:32 Body Mass Index 34.33 (90.72 kg, 162.56 cm) ss MDM: 07:43 Patient medically screened. [facility] 08:03 Differential Diagnosis: Bronchitis Upper Respiratory Infection Sinusitis Pharyngitis olya Viral Syndrome Pneumonia. Data reviewed: vital signs, nurses notes, radiologic studies, plain films. Data interpreted: zoning assistant: rate is 68 beats/min, rhythm is regular, Pulse oximetry: on room air is 100 %. Test interpretation: by ED physician or midlevel provider: ECG, plain radiologic studies. Counseling: I had a detailed discussion with the patient and/or guardian regarding: the historical points, exam findings, and any diagnostic results supporting the discharge/admit diagnosis, lab results, radiology results, the need for outpatient follow up, for definitive care, a family practitioner, a director airport operations. 07/14 07:57 Order name: Chest Pa And Lat (2 Views) XRAY; Complete Time: 08:34 [facility] 07/14 07:57 Order name: EKG; Complete Time: 07:57 [facility] 07/14 07:57 Order name: EKG - Nurse/Tech; Complete Time: 08:45 [facility] EC:47 Rate is 54 beats/min. Rhythm is regular. QRS [place] is Normal. MI interval is normal. QRS olya interval is normal. QT interval is normal. No Q waves. T waves are Normal. No ST changes noted. Clinical impression: Normal ECG and No evidence of ischemia. Interpreted by me. Reviewed by me. Administered Medications: 08:44 Drug: Zithromax (azithromycin) 500 mg Route: PO; sv 09:04 Follow up: Response: No adverse reaction sv 08:45 Drug: Xopenex 1.25 mg Route: Inhalation; sv 08:45 Drug: AtroVENT Aerosol 0.5 mg Route: Inhalation; sv 09:04 Drug: Tussionex Pennkinetic ER (chlorpheniramine-hydrocodone) 5 ml Route: PO; sv 09:04 Follow up: Response: Medication administered at discharge. sv Disposition: 07/14/20 08:47 Discharged to Home. Impression: Cough, Bronchitis, not specified as acute or chronic, Tobacco abuse counseling, Tobacco use, Chronic laryngitis. - Condition is Stable. - Discharge Instructions: Acute Bronchitis, Adult, Steps to Quit Smoking, Upper Respiratory Infection, Adult, Cool Mist Vaporizer, Cough, Adult, [id number], Cough, Adult. - Prescriptions for Bromfed DM 2- 30-10 mg/5 mL Oral syrup - take 10 milliliter by ORAL route every 6 hours; 180 milliliter. dexamethasone 2 mg Oral tablet - take 1 tablet by ORAL route 3 times per day; 15 tablet. Albuterol Sulfate 90 mcg/actuation - inhale 1-2 puff by INHALATION route every 4-6 hours; 1 Inhaler. Zithromax 500 mg Oral Tablet - take 1 tablet by ORAL route once daily for 4 days; 4 tablet. - Medication Reconciliation Form, Thank You Letter, Antibiotic Education, Prescription Opioid Use form. - Follow up: Private Physician; When: 2 - 3 days; Reason: Recheck today's complaints, Continuance of care, Re-evaluation by your physician. Follow up: London Heredia; When: 2 - 3 days; Reason: Recheck today's complaints, Re-evaluation by your physician. - Problem is new. - Symptoms have improved. Signatures: Dispatcher [employer] Karla Peres, BONIFACIO RN Perry Amos MD MD cha Smirch, Shelby, RN RN ss Corrections: (The following items were deleted from the chart) 09:05 08:47 07/14/2020 08:47 Discharged to Home. Impression: Cough; Bronchitis, not specified sv as acute or chronic; Tobacco abuse counseling; Tobacco use; Chronic laryngitis. Condition is Stable. Discharge Instructions: Acute Bronchitis, Adult, Steps to Quit Smoking, Upper Respiratory Infection, Adult, Cool Mist Vaporizer, Cough, Adult, [id number], Cough, Adult. Prescriptions for Bromfed DM 2-30-10 mg/5 mL Oral syrup - take 10 milliliter by ORAL route every 6 hours; 180 milliliter, dexamethasone 2 mg Oral tablet - take 1 tablet by ORAL route 3 times per day; 15 tablet, Albuterol Sulfate 90 mcg/actuation - inhale 1-2 puff by INHALATION route every 4-6 hours; 1 Inhaler, Zithromax 500 mg Oral Tablet - take 1 tablet by ORAL route once daily for 4 days; 4 tablet. and Forms are Medication Reconciliation Form, Thank You Letter, Antibiotic Education, Prescription Opioid Use. Follow up: Private Physician; When: 2 - 3 days; Reason: Recheck today's complaints, Continuance of care, Re-evaluation by your physician. Follow up: London Heredia; When: 2 - 3 days; Reason: Recheck today's complaints, Re-evaluation by your physician. Problem is new. Symptoms have improved. olya
[2020-07-14] MEDS ORDERED: LEVALBUTEROL 1.25 MG/3 ML NEB ONE (08:50)
[2020-07-14] MEDS ORDERED: AZITHROMYCIN 250 MG TAB ONE (08:50)
[2020-07-14] MEDS ORDERED: IPRATROPIUM BROM 0.5MG/2.5ML ONE (08:50)
[2020-07-14] MEDS ORDERED: HYDROCODONE/CHLORPHEN 5 ML/OSYR ONE (09:18)
[2020-07-14 09:23] VITALS: BP 142/92; TEMP 97.7; O2SAT 100
--- NOTE | 2020-07-15 06:54 | EKG ---
Test Date: 2020-07-14 Test Time: 08:39:28 Titrator: SV MEASUREMENT RESULTS: Intervals: Rate: 54 ID: [id number] QRSD: 76 QT: 422 QTc: 400 Mccamey: P: 49 ID: [id number] QRS: 54 T: 50 INTERPRETIVE STATEMENTS: Sinus bradycardia Otherwise normal ECG Compared to ECG 11/29/2014 03:26:35 No significant changes Electronically Signed On 07-15-20 06:52:52 CDT by Saji Heard
== END 2020-07-14 09:05 | disposition home or self-care (01) ==
LOC: ER 07:13
DX: J40 Bronchitis, not specified as acute or chronic (principal); J37.0 Chronic laryngitis; Z72.0 Tobacco use; Z71.6 Tobacco abuse counseling; I10 Essential (primary) hypertension; Z88.5 Allergy status to narcotic agent; Z88.6 Allergy status to analgesic agent
CPT/HCPCS: 71046; 93005; 99284

== ENCOUNTER 2021-11-29 07:07 | Emergency (ER) | payer OTHER ==
--- OUTSIDE RECORDS SUMMARY | 2021-11-29 07:20 | XMS REPORT | Continuity of Care Document ---
:1975 Author Organization [facility] t Address [address] [place] [address] Care Team Providers Name Role Phone PCP, PATIENT DOES NOT HAVE A Primary Care Physician UnavailQI Hood Attending Clinician Unavailable UNKNOWN, ATTENDING Attending Clinician Unavailable Kirk Montgomery DO Attending Clinician SREEKANTH MONSALVE Attending Clinician Unavailable JUAN CARLOS ARANGO Attending Clinician Unavailable Qi Pinto Attending Clinician Lynda Shultz MD Attending Clinician STEFANIA HOPKINS Attending Clinician Unavailable Juan Carlos Rice Attending Clinician LYNDA SHULTZ Attending Clinician Unavailable [facility] Attending Clinician Unavailable JV RANDHAWA Attending Clinician Unavailable Mick Jaime MD Attending Clinician KAYA ZAMORA Attending Clinician Unavailable Kaya Zamora MD Attending Clinician Mariangel Vogel RN Attending Clinician Unavailable Gee Baptiste MD Attending Clinician BRADEN DEAN Attending Clinician Unavailable Yolande CARLOS, [facility] Attending Clinician Aparna Rowley Attending Clinician Payers Payer Name Policy Type Policy Number Effective Date Expiration Date S chelsey [facility] CRISTINA WALLACE [id number] 2020 00:00:00 PLUS Problems Condition Condition Condition Status Onset Resolution Last Treating Co mments Source Name Details Category Date Date Treatment Clinician Date Other Other Disease Active Univers specified specified 11-05 [facility] complic[place] [facility] unspecifie unspecifie d as to d as to episode of episode of care care Allergies, Adverse Reactions, Alerts Allergy Allergy Status Severity Reaction(s) Onset Inactive Treating Comm ents Source Name Type Date Date Clinician NO KNOWN Drug Active Univers ALLERGIE Class ity of [facility] Social History Social Habit Start Date Stop Date Quantity Comments Source Exposure to Not sure [facility] SARS-CoV-2 [facility] (event) Branch Alcohol intake 2019-12-02 2019-12-02 Current [facility] 00:00:00 00:00:00 non-drinker of [facility] alcohol Frakes (finding) Tobacco use and 2019-12-02 2019-12-02 Never used Universit y of exposure 00:00:00 00:00:00 [facility] Sex Ass[birth year] At [birth year] [facility] 00:00:00 00:00:00 [facility] Smoking Status Start Date Stop Date Source Current every day smoker 2019-12-02 00:00:00 Uni versity of [facility] Medications Ordered Filled Start Stop Current Ordering Indication Dosage Frequency Signature Comments Components Source Medication Medication Date Date Medication? Clinician (SIG) Name Name Miralax 17 0 No gram/do gram/dose 8-12 se oral powder 00:00: 00 ProAir HFA 2021-0 No 2mcg/ac 90 8-12 tuation mcg/actuati 00:00: on aerosol 00 inhaler docusate 2021-0 No 1mg sodium 100 8-12 mg capsule 00:00: 00 &lt 2021-0 No 400 8-12 00:00: 00 TAKE 1 TAB 2021-0 No 10 ONCE A DAY 8-12 (DAILY) FOR 00:00: HYPERTENSIO 00 N TAKE 1 2021-0 No 5 TABLET BY 8-12 MOUTH EVERY 00:00: DAY 00 &lt 2021-0 No 400 8-12 00:00: 00 TAKE 1 2021-0 No 5 TABLET BY 8-12 MOUTH EVERY 00:00: DAY 00 TAKE 1 2021-0 No 20 CAPSULE BY 8-11 MOUTH EVERY 00:00: DAY 00 TAKE 1 2022-0 No TABLET BY 8-11 MOUTH EVERY 00:00: DAY IN THE 00 MORNING TAKE 1 TAB 2022-0 No 10 ONCE A DAY 8-11 (DAILY) FOR 00:00: ASTHMA 00 &lt 2022-0 No 8- 00:00: 00 &lt 2022-0 No 8- 00:00: 00 Dose 2022-0 No 1 Unknown 8 00:00: 00 TAKE 1 2022-0 No 300 CAPSULE BY 8-10 MOUTH TWICE 00:00: A DAY 00 TAKE 1 2022-0 No 20 CAPSULE BY 8-08 MOUTH EVERY 00:00: DAY 00 &lt 2022-0 No 300 11-21 00:00: 00 &lt 2022-0 No 10 11-21 00:00: 00 TAKE 3 2022-0 No 20 CAPSULES BY 8-08 MOUTH EVERY 00:00: DAY 00 TAKE 1 2022-0 No 30 CAPSULE - EVERY DAY 00:00: AT 8AM AND 00 2 PM FOR ADD OR ADHD TAKE 1 2022-0 No 30 TABLET BY 8-04 MOUTH TWICE 00:00: A DAY 00 TAKE 1 2022-0 No 40 CAPSULE BY 8-04 MOUTH EVERY 00:00: DAY 00 Dose 2022-0 No 20 Unknown 11-17 00:00: 00 TAKE 1 2022-0 No 400 CAPSULE BY 8-04 MOUTH TWICE 00:00: A DAY FOR 00 SCIATICA PAIN &lt 2022-0 No 10 11-17 00:00: 00 Dose 2022-0 No 300 Unknown 11-17 00:00: 00 TAKE 1 2022-0 No 30 CAPSULE 11-16 EVERY DAY 00:00: AT 8AM AND 00 2 PM FOR ADD OR ADHD &lt 2022-0 No 60 11-16 00:00: 00 &lt 2022-0 No 11-15 00:00: 00 Dose 2022-0 No 1 Unknown 11-15 00:00: 00 TAKE 1 2022-0 No TABLET BY 8- MOUTH EVERY 00:00: DAY IN THE 00 MORNING TAKE 1 2022-0 No 1 TABLET BY 8 MOUTH THREE 00:00: TIMES A DAY 00 NEEDED Dose 2022-0 No 300 Unknown 11-15 00:00: 00 budesonide- 2-0 No 2mcg/ac formoterol 11-13 tuation HFA 160 00:00: mcg-4.5 00 mcg/actuati on aerosol inhaler cyclobenzap 2021-0 No 1mg rine 5 mg 11-13 tablet 00:00: 00 &lt 2022-0 No 300 11-13 00:00: 00 &lt 2022-0 No 300 11-11 00:00: 00 &lt 2022-0 No 7 00:00: 00 &lt 2022-0 No 10 11-10 00:00: 00 Dose 2022-0 No 1 Unknown 11-10 00:00: 00 TAKE 1 2021-0 No 15 TABLET BY 11-10 MOUTH THREE 00:00: TIMES A DAY 00 Dose 2021-0 No 1 Unknown 11-10 00:00: 00 TAKE 1 2021-0 No 10 TABLET BY 11-08 MOUTH EVERY 00:00: DAY 00 &lt 2022-0 No 40 11-08 00:00: 00 &lt 2022-0 No 300 11-08 00:00: 00 Dose 2-0 No 1 Unknown 11-08 00:00: 00 &lt 2022-0 No 400 11-08 00:00: 00 &lt 2022-0 No 400 11-08 00:00: 00 TAKE 1 2021-0 No 10 TABLET BY 11-08 MOUTH EVERY 00:00: DAY 00 &lt 2022-0 No 40 11-08 00:00: 00 &lt 2022-0 No 300 11-08 00:00: 00 Dose 2022-0 No 1 Unknown 11-08 00:00: 00 &lt 2022-0 No 400 11-08 00:00: 00 &lt 2022-0 No 400 11-08 00:00: 00 TAKE 3 2021-0 No 20 CAPSULES BY 7- MOUTH EVERY 00:00: DAY 00 &lt 2022-0 No 1 11-01 00:00: 00 TAKE 1 2021-0 No 30 CAPSULE - EVERY DAY 00:00: AT 8AM AND 00 2 PM FOR ADD OR ADHD TAKE 3 2021-0 No 20 CAPSULES BY 7-19 MOUTH EVERY 00:00: DAY 00 &lt 2022-0 No 1 11-01 00:00: 00 TAKE 1 2021-0 No 30 CAPSULE - EVERY DAY 00:00: AT 8AM AND 00 2 PM FOR ADD OR ADHD &lt 2022-0 No 30 7-15 00:00: 00 &lt 2022-0 No 30 7-15 00:00: 00 &lt 2022-0 No 40 7-05 00:00: 00 TAKE 1 2022-0 No 1 TABLET BY 7-05 MOUTH THREE 00:00: TIMES A DAY 00 NEEDED &lt 2022-0 No 40 7-05 00:00: 00 TAKE 1 2022-0 No 1 TABLET BY 7-05 MOUTH THREE 00:00: TIMES A DAY 00 NEEDED &lt 2022-0 No 6-24 00:00: 00 TAKE 1 2022-0 No TABLET BY 6-24 MOUTH EVERY 00:00: DAY AT 8PM 00 &lt 2022-0 No 6-24 00:00: 00 TAKE 1 2022-0 No TABLET BY 6-24 MOUTH EVERY 00:00: DAY AT 8PM 00 TAKE 1 2022-0 No CAPSULE 6-17 EVERY DAY 00:00: AT 8AM AND 00 2 PM FOR ADD OR ADHD TAKE 1 2022-0 No CAPSULE 6-17 EVERY DAY 00:00: AT 8AM AND 00 2 PM FOR ADD OR ADHD lisinopril 2022-0 No 1mg 10 mg 6-10 tablet 00:00: 00 cyclobenzap 2022-0 No 1mg rine 5 mg 6-10 tablet 00:00: 00 ibuprofen 2022-0 No 1mg 600 mg 6-10 tablet 00:00: 00 levothyroxi 2022-0 No 1mcg ne 150 mcg 6-10 tablet 00:00: 00 omeprazole 2022-0 No 1mg 40 mg 6-10 capsule,del 00:00: ayed 00 release &lt 2022-0 No 6-10 00:00: 00 &lt 2022-0 No 6-10 00:00: 00 &lt 2022-0 No 6-10 00:00: 00 INHALE 2 2022-0 No PUFFS BY 6-10 MOUTH EVERY 00:00: 4-6 HOURS 00 NEEDED FOR WHEEZING lisinopril 2022-0 No 1mg 10 mg 6-10 tablet 00:00: 00 cyclobenzap 2022-0 No 1mg rine 5 mg 6-10 tablet 00:00: 00 ibuprofen 2022-0 No 1mg 600 mg 6-10 tablet 00:00: 00 levothyroxi 2022-0 No 1mcg ne 150 mcg 6-10 tablet 00:00: 00 omeprazole 2022-0 No 1mg 40 mg 6-10 capsule,del 00:00: ayed 00 release &lt 2022-0 No 6-10 00:00: 00 &lt 2022-0 No 6-10 00:00: 00 &lt 2022-0 No 6-10 00:00: 00 INHALE 2 2-0 No PUFFS BY 6-10 MOUTH EVERY 00:00: 4-6 HOURS 00 NEEDED FOR WHEEZING Dose 2022-0 No Unknown 4-16 00:00: 00 Dose 2022-0 No Unknown 4-16 00:00: 00 Strattera 2022-0 No 1mg 40 mg 4-15 capsule 00:00: 00 Strattera 2022-0 No 1mg 40 mg 4-15 capsule 00:00: 00 clonazepam 2022-0 No 1mg 1 mg tablet 4-08 00:00: 00 Vyvanse 40 2022-0 No 1mg mg capsule 4-08 00:00: 00 Dose 2022-0 No Unknown 4-08 00:00: 00 Dose 2022-0 No Unknown 4-08 00:00: 00 Dose 2022-0 No Unknown 4-08 00:00: 00 Dose 2022-0 No Unknown 4-08 00:00: 00 Dose 2022-0 No Unknown 4-08 00:00: 00 Dose 2022-0 No Unknown 4-08 00:00: 00 clonazepam 2022-0 No 1mg 1 mg tablet 4-08 00:00: 00 Vyvanse 40 2-0 No 1mg mg capsule 4-08 00:00: 00 Dose 2022-0 No Unknown 4-08 00:00: 00 Dose 2022-0 No Unknown 4-08 00:00: 00 Dose 2022-0 No Unknown 4-08 00:00: 00 Dose 2022-0 No Unknown 4-08 00:00: 00 Dose 2022-0 No Unknown 4-08 00:00: 00 Dose 2022-0 No Unknown 4-08 00:00: 00 Dose 2022-0 No Unknown 3-23 00:00: 00 Dose 2022-0 No Unknown 3-23 00:00: 00 Dose 2022-0 No Unknown 3-23 00:00: 00 Dose 2022-0 No Unknown 3-23 00:00: 00 Dose 2022-0 No Unknown 3-23 00:00: 00 Dose 2022-0 No Unknown 3-23 00:00: 00 Dose 2022-0 No Unknown 3-23 00:00: 00 Dose 2022-0 No Unknown 3-23 00:00: 00 Dose 2022-0 No Unknown 3-23 00:00: 00 Dose 2022-0 No Unknown 3-23 00:00: 00 Dose 2022-0 No Unknown 3-23 00:00: 00 Dose 2022-0 No Unknown 3-23 00:00: 00 Dose 2022-0 No Unknown 3-23 00:00: 00 Dose 2022-0 No Unknown 3-23 00:00: 00 Dose 2022-0 No Unknown 3-23 00:00: 00 Dose 2022-0 No Unknown 3-23 00:00: 00 Dose 2022-0 No Unknown 3-23 00:00: 00 Dose 2022-0 No Unknown 3-23 00:00: 00 Dose 2022-0 No Unknown 3-23 00:00: 00 Dose 2022-0 No Unknown 3-23 00:00: 00 Dose 2022-0 No Unknown 3-23 00:00: 00 Dose 2022-0 No Unknown 3-23 00:00: 00 Dose 2022-0 No Unknown 3-23 00:00: 00 Dose 2022-0 No Unknown 3-23 00:00: 00 Dose 2022-0 No Unknown 3-23 00:00: 00 Dose 2022-0 No Unknown 3-23 00:00: 00 Dose 2022-0 No Unknown 3-23 00:00: 00 Dose 2022-0 No Unknown 3-23 00:00: 00 Dose 2022-0 No Unknown 3-23 00:00: 00 Dose 2022-0 No Unknown 3-23 00:00: 00 Dose 2022-0 No Unknown 3-23 00:00: 00 Dose 2022-0 No Unknown 3-23 00:00: 00 Dose 2022-0 No Unknown 3-23 00:00: 00 Dose 2022-0 No Unknown 3-23 00:00: 00 Dose 2022-0 No Unknown 3-23 00:00: 00 Dose 2022-0 No Unknown 3-23 00:00: 00 Dose 2022-0 No Unknown 3-23 00:00: 00 Dose 2022-0 No Unknown 3-23 00:00: 00 Dose 2022-0 No Unknown 3-23 00:00: 00 Dose 2022-0 No Unknown 3-23 00:00: 00 Dose 2022-0 No Unknown 3-23 00:00: 00 Dose 2022-0 No Unknown 3-23 00:00: 00 Dose 2022-0 No Unknown 3-23 00:00: 00 Dose 2022-0 No Unknown 3-23 00:00: 00 Dose 2022-0 No Unknown 3-16 00:00: 00 Dose 2022-0 No Unknown 3-16 00:00: 00 Dose 2022-0 No Unknown 3-16 00:00: 00 Dose 2022-0 No Unknown 3-16 00:00: 00 Dose 2022-0 No Unknown 3-16 00:00: 00 Dose 2022-0 No Unknown 3-16 00:00: 00 Dose 2022-0 No Unknown 3-16 00:00: 00 Dose 2022-0 No Unknown 3-16 00:00: 00 Dose 2022-0 No Unknown 3-16 00:00: 00 Dose 2022-0 No Unknown 3-16 00:00: 00 Dose 2022-0 No Unknown 3-16 00:00: 00 Dose 2022-0 No Unknown 3-16 00:00: 00 Dose 2022-0 No Unknown 3-16 00:00: 00 Dose 2022-0 No Unknown 3-16 00:00: 00 Dose 2022-0 No Unknown 3-16 00:00: 00 Dose 2022-0 No Unknown 3-16 00:00: 00 Dose 2022-0 No Unknown 3-16 00:00: 00 Dose 2022-0 No Unknown 3-16 00:00: 00 Dose 2022-0 No Unknown 3-16 00:00: 00 Dose 2022-0 No Unknown 3-16 00:00: 00 Dose 2022-0 No Unknown 3-16 00:00: 00 Dose 2022-0 No Unknown 3-16 00:00: 00 Prozac 20 2022-0 No 3mg mg capsule 2-15 00:00: 00 lithium 2022-0 No 1mg carbonate 2-15 300 mg 00:00: capsule 00 buspirone 2022-0 No 1mg 15 mg 2-15 tablet 00:00: 00 Seroquel 2022-0 No 5mg 400 mg 2-15 tablet 00:00: 00 benztropine 2022-0 No 1mg 1 mg tablet 2-15 00:00: 00 Prozac 20 2022-0 No 3mg mg capsule 2-15 00:00: 00 lithium 2022-0 No 1mg carbonate 2-15 300 mg 00:00: capsule 00 buspirone 2022-0 No 1mg 15 mg 2-15 tablet 00:00: 00 Seroquel 2022-0 No 5mg 400 mg 2-15 tablet 00:00: 00 benztropine 2022-0 No 1mg 1 mg tablet 2-15 00:00: 00 lisinopril 2022-0 No 1mg 10 mg 2-02 tablet 00:00: 00 omeprazole 2022-0 No 1mg 40 mg 2-02 capsule,del 00:00: ayed 00 release lisinopril 2022-0 No 1mg 10 mg 2-02 tablet 00:00: 00 omeprazole 2022-0 No 1mg 40 mg 2-02 capsule,del 00:00: ayed 00 release trazodone 2022-0 No 12mg 50 mg 1-30 tablet 00:00: 00 trazodone 2022-0 No 12mg 50 mg 1-30 tablet 00:00: 00 buspirone 2022-0 No 1mg 15 mg 1-20 tablet 00:00: 00 Seroquel 2022-0 No 5mg 400 mg 1-20 tablet 00:00: 00 Prozac 20 2022-0 No 3mg mg capsule 1-20 00:00: 00 lithium 2022-0 No 1mg carbonate 1-20 300 mg 00:00: capsule 00 buspirone 2022-0 No 1mg 15 mg 1-20 tablet 00:00: 00 Seroquel 2022-0 No 5mg 400 mg 1-20 tablet 00:00: 00 Prozac 20 2022-0 No 3mg mg capsule 1-20 00:00: 00 lithium 2022-0 No 1mg carbonate 1-20 300 mg 00:00: capsule 00 ibuprofen 2021-1 No 1mg 600 mg 2-31 tablet 00:00: 00 cyclobenzap 2021-1 No 1mg rine 7.5 mg 2-31 tablet 00:00: 00 levothyroxi 2020-1 No 1mcg ne 150 mcg 2-31 tablet 00:00: 00 ibuprofen 2020-1 No 1mg 600 mg 2-31 tablet 00:00: 00 cyclobenzap 2020-1 No 1mg rine 7.5 mg 2-31 tablet 00:00: 00 levothyroxi 2020-1 No 1mcg ne 150 mcg 2-31 tablet 00:00: 00 ibuprofen 2020-1 No 1mg 600 mg 2-16 tablet 00:00: 00 cyclobenzap 2020-1 No 1mg rine 7.5 mg 2-16 tablet 00:00: 00 ibuprofen 2020-1 No 1mg 600 mg 2-16 tablet 00:00: 00 cyclobenzap 2020-1 No 1mg rine 7.5 mg 2-16 tablet 00:00: 00 sumatriptan 2020-1 No 1mg 50 mg 2-10 tablet 00:00: 00 sumatriptan 2020-1 No 1mg 50 mg 2-10 tablet 00:00: 00 Dose 2020-1 No Unknown 2-08 00:00: 00 Seroquel 2020-1 No 5mg 400 mg 2-08 tablet 00:00: 00 Prozac 20 2020-1 No 3mg mg capsule 2-08 00:00: 00 lithium 2020-1 No 1mg carbonate 2-08 300 mg 00:00: capsule 00 Dose 2020-1 No Unknown 2-08 00:00: 00 Seroquel 2020-1 No 5mg 400 mg 2-08 tablet 00:00: 00 Prozac 20 2020-1 No 3mg mg capsule 2-08 00:00: 00 lithium 1-1 No 1mg carbonate 2-08 300 mg 00:00: capsule 00 amlodipine 2020-1 No 1mg 5 mg tablet 2-07 00:00: 00 gemfibrozil 2020-1 No 1mg 600 mg 2-07 tablet 00:00: 00 Dose 2020-1 No Unknown 2-07 00:00: 00 levothyroxi 2020-1 No 1mcg ne 150 mcg 2-07 tablet 00:00: 00 Dose 2020-1 No Unknown 2-07 00:00: 00 gabapentin 2020-1 No 1mg 300 mg 2-07 capsule 00:00: 00 amlodipine 2020-1 No 1mg 5 mg tablet 2-07 00:00: 00 gemfibrozil 2020-1 No 1mg 600 mg 2-07 tablet 00:00: 00 Dose 2020-1 No Unknown 2-07 00:00: 00 levothyroxi 2020-1 No 1mcg ne 150 mcg 2-07 tablet 00:00: 00 Dose 2020-1 No Unknown 2-07 00:00: 00 gabapentin 2020-1 No 1mg 300 mg 2-07 capsule 00:00: 00 Dose 2020-1 No Unknown 1-12 00:00: 00 Dose 2020-1 No Unknown 1-12 00:00: 00 Symbicort 2020-1 No 2mcg/ac 160 mcg-4.5 1-08 tuation mcg/actuati 00:00: on HFA 00 aerosol inhaler Dose 2020-1 No Unknown 1-08 00:00: 00 Symbicort 2020-1 No 2mcg/ac 160 mcg-4.5 1-08 tuation mcg/actuati 00:00: on HFA 00 aerosol inhaler Dose 2020-1 No Unknown 1-08 00:00: 00 buspirone 2020-1 No 1mg 10 mg 0-11 tablet 00:00: 00 Seroquel 2020-1 No 5mg 400 mg 0-11 tablet 00:00: 00 Prozac 20 2020-1 No 3mg mg capsule 0-11 00:00: 00 lithium 2020-1 No 1mg carbonate 0-11 300 mg 00:00: capsule 00 buspirone 2020-1 No 1mg 10 mg 0-11 tablet 00:00: 00 Seroquel 2020-1 No 5mg 400 mg 0-11 tablet 00:00: 00 Prozac 20 2020-1 No 3mg mg capsule 0-11 00:00: 00 lithium 2020-1 No 1mg carbonate 0-11 300 mg 00:00: capsule 00 Symbicort 2020-1 No 2mcg/ac 160 mcg-4.5 0-06 tuation mcg/actuati 00:00: on HFA 00 aerosol inhaler ProAir HFA 2020- No 2mcg/ac 90 0-06 tuation mcg/actuati 00:00: on aerosol 00 inhaler lisinopril 2020-1 No 1mg 10 mg 0-06 tablet 00:00: 00 Singulair 2020-1 No 1mg 10 mg 0-06 tablet 00:00: 00 ibuprofen 1-1 No 1mg 600 mg 0-06 tablet 00:00: 00 Symbicort 2020-1 No 2mcg/ac 160 mcg-4.5 0-06 tuation mcg/actuati 00:00: on HFA 00 aerosol inhaler ProAir HFA 2020- No 2mcg/ac 90 0-06 tuation mcg/actuati 00:00: on aerosol 00 inhaler lisinopril 2020-1 No 1mg 10 mg 0-06 tablet 00:00: 00 Singulair 2020-1 No 1mg 10 mg 0-06 tablet 00:00: 00 ibuprofen 2020-1 No 1mg 600 mg 0-06 tablet 00:00: 00 Dose 1-0 No Unknown 9-16 00:00: 00 Dose 1-0 No Unknown 9-16 00:00: 00 Dose 1-0 No Unknown 9-16 00:00: 00 Dose 1-0 No Unknown 9-16 00:00: 00 Dose 1-0 No Unknown 9-16 00:00: 00 Dose 1-0 No Unknown 9-16 00:00: 00 Dose 1-0 No Unknown 9-16 00:00: 00 Dose 1-0 No Unknown 9-16 00:00: 00 Dose 1-0 No Unknown 9-16 00:00: 00 Dose 1-0 No Unknown 9-16 00:00: 00 Dose 1-0 No Unknown 9-16 00:00: 00 Dose 1-0 No Unknown 9-16 00:00: 00 Dose 1-0 No Unknown 9-13 00:00: 00 Dose 1-0 No Unknown 9-13 00:00: 00 Dose 1-0 No Unknown 9-13 00:00: 00 Dose 1-0 No Unknown 9-13 00:00: 00 Dose 1-0 No Unknown 9-10 00:00: 00 Dose 1-0 No Unknown 9-10 00:00: 00 omeprazole 1-0 No 1mg 40 mg 8-19 capsule,del 00:00: ayed 00 release omeprazole 1-0 No 1mg 40 mg 8-19 capsule,del 00:00: ayed 00 release lisinopril 2021-0 No 1mg 10 mg 8-13 tablet 00:00: 00 Dose 2021-0 No Unknown 8-13 00:00: 00 ibuprofen 2021-0 No 1mg 600 mg 8-13 tablet 00:00: 00 lisinopril 2021-0 No 1mg 10 mg 8-13 tablet 00:00: 00 Dose 2021-0 No Unknown 8-13 00:00: 00 ibuprofen 2021-0 No 1mg 600 mg 8-13 tablet 00:00: 00 buspirone 2021-0 No 1mg 10 mg 8-06 tablet 00:00: 00 Seroquel 2021-0 No 5mg 400 mg 8-06 tablet 00:00: 00 Prozac 20 2021-0 No 3mg mg capsule 806 00:00: 00 lithium 2021-0 No 1mg carbonate 8-06 300 mg 00:00: capsule 00 buspirone 2021-0 No 1mg 10 mg 8-06 tablet 00:00: 00 Seroquel 2021-0 No 5mg 400 mg 8-06 tablet 00:00: 00 Prozac 20 2021-0 No 3mg mg capsule 8 00:00: 00 lithium 2021-0 No 1mg carbonate 8-06 300 mg 00:00: capsule 00 Dose 2021-0 No Unknown 7-23 00:00: 00 Dose 2021-0 No Unknown 7-23 00:00: 00 Dose 2021-0 No Unknown 7-23 00:00: 00 Dose 2021-0 No Unknown 7-23 00:00: 00 buspirone 2021-0 No 1mg 10 mg 6-22 tablet 00:00: 00 buspirone 2021-0 No 1mg 10 mg 6-22 tablet 00:00: 00 Dose 2021-0 No Unknown 6-18 00:00: 00 cyclobenzap 2021-0 No 1mg rine 10 mg 6-18 tablet 00:00: 00 naproxen 2021-0 No 1mg 500 mg 6-18 tablet 00:00: 00 Seroquel 2021-0 No 5mg 400 mg 6-18 tablet 00:00: 00 Prozac 20 2021-0 No 3mg mg capsule 6-18 00:00: 00 lithium 2021-0 No 1mg carbonate 6-18 300 mg 00:00: capsule 00 Dose 2021-0 No Unknown 6-18 00:00: 00 cyclobenzap 2021-0 No 1mg rine 10 mg 6-18 tablet 00:00: 00 naproxen 2021-0 No 1mg 500 mg 6-18 tablet 00:00: 00 Seroquel 2021-0 No 5mg 400 mg 6-18 tablet 00:00: 00 Prozac 20 2021-0 No 3mg mg capsule 6-18 00:00: 00 lithium 2021-0 No 1mg carbonate 6-18 300 mg 00:00: capsule 00 Dose 2021-0 No Unknown 6-10 00:00: 00 Dose 2021-0 No Unknown 6-10 00:00: 00 hydroxyzine 2021-0 No 1mg HCl 10 mg 6-07 tablet 00:00: 00 Seroquel 2021-0 No 5mg 400 mg 6-07 tablet 00:00: 00 Prozac 20 2021-0 No 3mg mg capsule 6-07 00:00: 00 lithium 2021-0 No 1mg carbonate 6-07 300 mg 00:00: capsule 00 hydroxyzine 2021-0 No 1mg HCl 10 mg 6-07 tablet 00:00: 00 Seroquel 2021-0 No 5mg 400 mg 6-07 tablet 00:00: 00 Prozac 20 2021-0 No 3mg mg capsule 6- 00:00: 00 lithium 2021-0 No 1mg carbonate 6-07 300 mg 00:00: capsule 00 ibuprofen 2021-0 No 1mg 800 mg 6-04 tablet 00:00: 00 ibuprofen 2021-0 No 1mg 800 mg 6-04 tablet 00:00: 00 buspirone 5 1-0 No 1mg mg tablet - 00:00: 00 Seroquel 2021-0 No 1mg 400 mg 5-26 tablet 00:00: 00 buspirone 5 1-0 No 1mg mg tablet - 00:00: 00 Seroquel 2021-0 No 1mg 400 mg 5-26 tablet 00:00: 00 Prozac 20 2021-0 No 3mg mg capsule - 00:00: 00 lithium 2021-0 No 1mg carbonate 5-26 300 mg 00:00: capsule 00 Prozac 20 2021-0 No 3mg mg capsule 5-26 00:00: 00 lithium 2021-0 No 1mg carbonate 5-26 300 mg 00:00: capsule 00 Seroquel 2021-0 No 1mg 400 mg 5-23 tablet 00:00: 00 Prozac 20 2021-0 No 3mg mg capsule 5-23 00:00: 00 lithium 2021-0 No 1mg carbonate 5-23 300 mg 00:00: capsule 00 Seroquel 2021-0 No 1mg 400 mg 5-23 tablet 00:00: 00 Prozac 20 2021-0 No 3mg mg capsule 5-23 00:00: 00 lithium 2021-0 No 1mg carbonate 5-23 300 mg 00:00: capsule 00 lorazepam 2021-0 No 1mg 0.5 mg 5-20 tablet 00:00: 00 montelukast 2021-0 No 1mg 10 mg 5-20 tablet 00:00: 00 Dose 2021-0 No Unknown 5-20 00:00: 00 levothyroxi 2021-0 No 1mcg ne 150 mcg 5-20 tablet 00:00: 00 levothyroxi 2021-0 No 1mcg ne 150 mcg 5-20 tablet 00:00: 00 Dose 2021-0 No Unknown 5-20 00:00: 00 Dose 2021-0 No Unknown 5-20 00:00: 00 gabapentin 2021-0 No 1mg 300 mg 5-20 capsule 00:00: 00 gabapentin 2021-0 No 1mg 300 mg 5-20 capsule 00:00: 00 Dose 2021-0 No Unknown 5-20 00:00: 00 phenytoin 2021-0 No 1(21)/7 100 mg/4 mL 5-20 5 mg oral 00:00: (7) suspension 00 phenytoin 1-0 No 1(21)/7 100 mg/4 mL 5-20 5 mg oral 00:00: (7) suspension 00 phenytoin 2021-0 No 1(21)/7 100 mg/4 mL 5-20 5 mg oral 00:00: (7) suspension 00 lisinopril 1-0 No 1mg 10 mg 5-20 tablet 00:00: 00 ibuprofen 2021-0 No 1mg 600 mg 5-20 tablet 00:00: 00 ibuprofen 2021-0 No 1mg 600 mg 5-20 tablet 00:00: 00 lisinopril 2021-0 No 1mg 10 mg 5-20 tablet 00:00: 00 lisinopril 2021-0 No 1mg 10 mg 5-20 tablet 00:00: 00 Dose 2021-0 No Unknown 5-20 00:00: 00 montelukast 2021-0 No 1mg 10 mg 5-20 tablet 00:00: 00 lorazepam 2021-0 No 1mg 0.5 mg 5-20 tablet 00:00: 00 montelukast 2021-0 No 1mg 10 mg 5-20 tablet 00:00: 00 Dose 2021-0 No Unknown 5-20 00:00: 00 levothyroxi 2021-0 No 1mcg ne 150 mcg 5-20 tablet 00:00: 00 levothyroxi 2021-0 No 1mcg ne 150 mcg 5-20 tablet 00:00: 00 Dose 2021-0 No Unknown 5-20 00:00: 00 Dose 2021-0 No Unknown 5-20 00:00: 00 gabapentin 2021-0 No 1mg 300 mg 5-20 capsule 00:00: 00 gabapentin 2021-0 No 1mg 300 mg 5-20 capsule 00:00: 00 Dose 2021-0 No Unknown 5-20 00:00: 00 phenytoin 2021-0 No 1(21)/7 100 mg/4 mL 5-20 5 mg oral 00:00: (7) suspension 00 phenytoin 1-0 No 1(21)/7 100 mg/4 mL 5-20 5 mg oral 00:00: (7) suspension 00 phenytoin 2021-0 No 1(21)/7 100 mg/4 mL 5-20 5 mg oral 00:00: (7) suspension 00 lisinopril 2021-0 No 1mg 10 mg 5-20 tablet 00:00: 00 ibuprofen 2021-0 No 1mg 600 mg 5-20 tablet 00:00: 00 ibuprofen 2021-0 No 1mg 600 mg 5-20 tablet 00:00: 00 lisinopril 2021-0 No 1mg 10 mg 5-20 tablet 00:00: 00 lisinopril 2021-0 No 1mg 10 mg 5-20 tablet 00:00: 00 Dose 2021-0 No Unknown 5-20 00:00: 00 montelukast 2020-0 No 1mg 10 mg 5-20 tablet 00:00: 00 FLUTICASONE 2019- Yes [id number] SHAKE U nivers PROPIONATE 0-15 LIQUID AND ity of 50 00:00: USE 2 [place] mcg/actuati 00 SPRAYS IN Med ical on nasal EACH Branch spray NOSTRIL DAILY FLUTICASONE 2019- Yes [id number] SHAKE U nivers PROPIONATE 0-15 LIQUID AND ity of 50 00:00: USE 2 [place] mcg/actuati 00 SPRAYS IN Med ical on nasal EACH [facility] spray NOSTRIL DAILY FLUTICASONE 2019-04 Yes [id number] SHAKE U nivers PROPIONATE 0-15 LIQUID AND ity of 50 00:00: USE 2 [place] mcg/actuati 00 SPRAYS IN Med ical on nasal EACH [facility] spray NOSTRIL DAILY doxycycline 2019-0 Yes [id number] 100mg Take 1 [facility] monohydrate 8-20 capsule by it y of 100 mg 00:00: mouth 2 [place] capsule 00 (two) Medical times [facility] daily. doxycycline 2020-0 Yes [id number] 100mg Take 1 [facility] monohydrate 8-20 capsule by it y of 100 mg 00:00: mouth 2 [place] capsule 00 (two) Medical times [facility] daily. doxycycline 2020-0 Yes [id number] 100mg Take 1 [facility] monohydrate 8-20 capsule by it y of 100 mg 00:00: mouth 2 [place] capsule 00 (two) Medical times [facility] daily. doxycycline 2020-0 Yes [id number] 100mg Take 1 [facility] monohydrate 8-20 capsule by it y of 100 mg 00:00: mouth 2 [place] capsule 00 (two) Medical times [facility] daily. doxycycline 2020-0 Yes [id number] 100mg Take 1 [facility] monohydrate 8-20 capsule by it y of 100 mg 00:00: mouth 2 [place] capsule 00 (two) Medical times [facility] daily. doxycycline 2020-0 Yes [id number] 100mg Take 1 [facility] monohydrate 8-20 capsule by it y of 100 mg 00:00: mouth 2 [place] capsule 00 (two) Medical times [facility] daily. doxycycline 2020-0 Yes [id number] 100mg Take 1 [facility] monohydrate 8-20 capsule by it y of 100 mg 00:00: mouth 2 [place] capsule 00 (two) Medical times [facility] daily. doxycycline 2020-0 Yes [id number] 100mg Take 1 [facility] monohydrate 8-20 capsule by it y of 100 mg 00:00: mouth 2 [place] capsule 00 (two) Medical times [facility] daily. doxycycline 2020-0 Yes [id number] 100mg Take 1 [facility] monohydrate 8-20 capsule by it y of 100 mg 00:00: mouth 2 [place] capsule 00 (two) Medical times [facility] daily. pantoprazol 2020-0 Yes [id number] 40mg Take 1 [facility] e 40 mg EC 8-18 tablet by ity of tablet 00:00: mouth once [place] 00 daily as Medical needed for Branch Indigestio n. LORazepam 1 2019-0 Yes [id number] 1mg Take 1 [facility] mg tablet 8-18 tablet by ity o f 00:00: mouth once [place] 00 daily as Medical needed for [facility] Anxiety or Agitation. pantoprazol 2019-0 Yes [id number] 40mg Take 1 [facility] e 40 mg EC 8-18 tablet by ity of tablet 00:00: mouth once [place] 00 daily as Medical needed for Branch Indigestio n. LORazepam 1 2019-0 Yes [id number] 1mg Take 1 [facility] mg tablet 8-18 tablet by ity o f 00:00: mouth once [place] 00 daily as Medical needed for [facility] Anxiety or Agitation. pantoprazol 2019-0 Yes [id number] 40mg Take 1 [facility] e 40 mg EC 8-18 tablet by ity of tablet 00:00: mouth once [place] 00 daily as Medical needed for Branch Indigestio n. LORazepam 1 2019-0 Yes [id number] 1mg Take 1 [facility] mg tablet 8-18 tablet by ity o f 00:00: mouth once [place] 00 daily as Medical needed for Branch Anxiety or Agitation. pantoprazol 2019-0 Yes [id number] 40mg Take 1 [facility] e 40 mg EC 8-18 tablet by ity of tablet 00:00: mouth once [place] 00 daily as Medical needed for Branch Indigestio n. LORazepam 1 2019-0 Yes [id number] 1mg Take 1 [facility] mg tablet 8-18 tablet by ity o f 00:00: mouth once [place] 00 daily as Medical needed for Branch Anxiety or Agitation. pantoprazol 2020-0 Yes [id number] 40mg Take 1 [facility] e 40 mg EC 8-18 tablet by ity of tablet 00:00: mouth once [place] 00 daily as Medical needed for Branch Indigestio n. LORazepam 1 2019-0 Yes [id number] 1mg Take 1 [facility] mg tablet 8-18 tablet by ity o f 00:00: mouth once [place] 00 daily as Medical needed for Branch Anxiety or Agitation. pantoprazol 2019-0 Yes [id number] 40mg Take 1 [facility] e 40 mg EC 8-18 tablet by ity of tablet 00:00: mouth once 00 daily as Medical needed for Branch Indigestio n. LORazepam 1 2019-0 Yes [id number] 1mg Take 1 [facility] mg tablet 8-18 tablet by ity o f 00:00: mouth once [place] 00 daily as Medical needed for Branch Anxiety or Agitation. pantoprazol 2019-0 Yes [id number] 40mg Take 1 [facility] e 40 mg EC 8-18 tablet by ity of tablet 00:00: mouth once daily as Medical needed for Branch Indigestio n. LORazepam 1 2019-0 Yes [id number] 1mg Take 1 [facility] mg tablet 8-18 tablet by ity o f 00:00: mouth once 00 daily as Medical needed for Branch Anxiety or Agitation. pantoprazol 2019-0 Yes [id number] 40mg Take 1 [facility] e 40 mg EC 8-18 tablet by ity of tablet 00:00: mouth once daily as Medical needed for Branch Indigestio n. LORazepam 1 2019-0 Yes [id number] 1mg Take 1 [facility] mg tablet 8-18 tablet by ity o f 00:00: mouth once 00 daily as Medical needed for Branch Anxiety or Agitation. pantoprazol 2019-0 Yes [id number] 40mg Take 1 [facility] e 40 mg EC 8-18 tablet by ity of tablet 00:00: mouth once daily as Medical needed for Branch Indigestio n. LORazepam 1 2019-0 Yes [id number] 1mg Take 1 [facility] mg tablet 8-18 tablet by ity o f 00:00: mouth once 00 daily as Medical needed for Branch Anxiety or Agitation. pantoprazol 2019-0 Yes [id number] 40mg Take 1 [facility] e 40 mg EC 8-18 tablet by ity of tablet 00:00: mouth once 00 daily as Medical needed for Branch Indigestio n. LORazepam 1 2019-0 Yes [id number] 1mg Take 1 [facility] mg tablet 8-18 tablet by ity o f 00:00: mouth once [place] 00 daily as Medical needed for Branch Anxiety or Agitation. pantoprazol 2020-0 Yes [id number] 40mg Take 1 [facility] e 40 mg EC 8-18 tablet by ity of tablet 00:00: mouth once [place] 00 daily as Medical needed for Branch Indigestio n. LORazepam 1 2020-0 Yes [id number] 1mg Take 1 [facility] mg tablet 8-18 tablet by ity o f 00:00: mouth once [place] 00 daily as Medical needed for Branch Anxiety or Agitation. pantoprazol 2020-0 Yes [id number] 40mg Take 1 [facility] e 40 mg EC 8-18 tablet by ity of tablet 00:00: mouth once [place] 00 daily as Medical needed for Branch Indigestio n. LORazepam 1 2020-0 Yes [id number] 1mg Take 1 [facility] mg tablet 8-18 tablet by ity o f 00:00: mouth once [place] 00 daily as Medical needed for Branch Anxiety or Agitation. doxycycline 2020-0 2020- No [id number] 100mg Take 1 [facility] hyclate 100 8-18 -02 capsule by i ty of mg capsule 00:00: 04:59 mouth [place] 00 :00 every 12 Medical (twelve) Branch hours for 14 days. doxycycline 2020-0 2020- No [id number] 100mg Take 1 [facility] hyclate 100 8-18 09-02 capsule by i ty of mg capsule 00:00: 04:59 mouth [place] 00 :00 every 12 Medical (twelve) Branch hours for 14 days. doxycycline 2020-0 2020- No [id number] 100mg Take 1 [facility] hyclate 100 8-18 09-02 capsule by i ty of mg capsule 00:00: 04:59 mouth [place] 00 :00 every 12 Medical (twelve) Branch hours for 14 days. doxycycline 2020-0 2020- No [id number] 100mg Take 1 [facility] hyclate 100 8-18 08-20 capsule by i ty of mg capsule 00:00: 00:00 mouth [place] 00 :00 every 12 Medical (twelve) Branch hours for 14 days. FLUoxetine 2020-0 Yes 60mg Take 60 mg [facility] nivers 60 mg 7-23 by mouth ity of tablet 00:00: daily. [place] 00 Medical Branch FLUoxetine 2020-0 Yes 60mg Take 60 mg U nivers 60 mg 7-23 by mouth ity of tablet 00:00: daily. [place] 00 Medical Branch FLUoxetine 2020-0 Yes 60mg Take 60 mg U nivers 60 mg 7-23 by mouth ity of tablet 00:00: daily. [place] [facility] FLUoxetine 2020-0 Yes 60mg Take 60 mg U nivers 60 mg 7-23 by mouth ity of tablet 00:00: daily. [place] [facility] FLUoxetine 2020-0 Yes 60mg Take 60 mg U nivers 60 mg 7-23 by mouth ity of tablet 00:00: daily. [place] [facility] FLUoxetine 2020-0 Yes 60mg Take 60 mg U nivers 60 mg 7-23 by mouth ity of tablet 00:00: daily. [place] [facility] FLUoxetine 2020-0 Yes 60mg Take 60 mg [facility] nivers 60 mg 7-23 by mouth ity of tablet 00:00: daily. [place] [facility] FLUoxetine 2020-0 Yes 60mg Take 60 mg [facility] nivers 60 mg 7-23 by mouth ity of tablet 00:00: daily. [place] [facility] FLUoxetine 2020-0 Yes 60mg Take 60 mg U nivers 60 mg 7-23 by mouth ity of tablet 00:00: daily. [place] [facility] FLUoxetine 2020-0 Yes 60mg Take 60 mg [facility] nivers 60 mg 7-23 by mouth ity of tablet 00:00: daily. [place] [facility] FLUoxetine 2020-0 Yes 60mg Take 60 mg U nivers 60 mg 7-23 by mouth ity of tablet 00:00: daily. [place] [facility] FLUoxetine 2020-0 Yes 60mg Take 60 mg U nivers 60 mg 7-23 by mouth ity of tablet 00:00: daily. [place] [address] Medical Branch QUEtiapine 2020-0 Yes 200mg Take 200 [facility] [place] 200 mg 7-21 mg by ity of tablet 00:00: mouth at [place] [address] bedtime. Medical Branch QUEtiapine 2020-0 Yes 200mg Take 200 [facility] [place] 200 mg 7-21 mg by ity of tablet 00:00: mouth at [place] [address] bedtime. Medical Branch QUEtiapine 2020-0 Yes 200mg Take 200 [facility] 200 mg 7-21 mg by ity of tablet 00:00: mouth at [place] [address] bedtime. Medical Branch QUEtiapine 2020-0 Yes 200mg Take 200 [facility] [place] 200 mg 7-21 mg by ity of tablet 00:00: mouth at [place] [address] bedtime. Medical Branch QUEtiapine 2020-0 Yes 200mg Take 200 [facility] 200 mg 7-21 mg by ity of tablet 00:00: mouth at [place] [address] bedtime. Medical Branch QUEtiapine 2020-0 Yes 200mg Take 200 [facility] [place] 200 mg 7-21 mg by ity of tablet 00:00: mouth at [place] [address] bedtime. Medical Branch QUEtiapine 2020-0 Yes 200mg Take 200 [facility] [place] 200 mg 7-21 mg by ity of tablet 00:00: mouth at [place] [address] bedtime. Medical Branch QUEtiapine 2020-0 Yes 200mg Take 200 [facility] 200 mg 7-21 mg by ity of tablet 00:00: mouth at [place] bedtime. Medical Branch QUEtiapine 2020-0 Yes 200mg Take 200 [facility] [place] 200 mg 7-21 mg by ity of tablet 00:00: mouth at [place] [address] bedtime. Medical Branch QUEtiapine 2020-0 Yes 200mg Take 200 [facility] [place] 200 mg 7-21 mg by ity of tablet 00:00: mouth at [place] [address] bedtime. Medical Branch QUEtiapine 2020-0 Yes 200mg Take 200 [facility] [place] 200 mg 7-21 mg by ity of tablet 00:00: mouth at [place] [address] bedtime. Medical Branch QUEtiapine 2020-0 Yes 200mg Take 200 [facility] [place] 200 mg 7-21 mg by ity of tablet 00:00: mouth at [place] [address] bedtime. Medical Branch pantoprazol 2020-0 Yes [id number] 40mg Take 1 [facility] e 40 mg EC 6-23 tablet by ity of tablet 00:00: mouth once daily as Medical needed for Branch Indigestio n. pantoprazol 2020-0 Yes [id number] 40mg Take 1 [facility] e 40 mg EC 6-23 tablet by ity of tablet 00:00: mouth once daily as Medical needed for Branch Indigestio n. pantoprazol 2020-0 Yes [id number] 40mg Take 1 [facility] e 40 mg EC 6-23 tablet by ity of tablet 00:00: mouth once daily as Medical needed for Branch Indigestio n. pantoprazol 2020-0 2020- No [id number] 40mg Take 1 [facility] e 40 mg EC 6-23 08-18 tablet by [facility] tablet 00:00: 00:00 mouth once [place] 00 :00 daily as Medical needed for Branch Indigestio n. pantoprazol 2020-0 2020- No [id number] 40mg Take 1 [facility] e 40 mg EC 6 08-18 tablet by it[facility] of tablet 00:00: 00:00 mouth once [place] 00 :00 daily as Medical needed for Branch Indigestio n. fluticasone 2019-0 Yes [id number] 2{spray Use 2 [facility] propionate 6-16 } Sprays in ity of (FLONASE 00:00: each [place] ALLERGY 00 nostril Medical RELIEF) 50 daily. Branch mcg/actuati on nasal spray LORazepam 1 2019-0 Yes [id number] 1mg Take 1 [facility] mg tablet 6-16 tablet by ity o f 00:00: mouth once [place] 00 daily as Medical needed for Branch Anxiety or Agitation. fluticasone 2019- Yes [id number] 2{spray Use 2 [facility] propionate 6-16 } Sprays in ity of (FLONASE 00:00: each [place] ALLERGY 00 nostril Medical RELIEF) 50 daily. Branch mcg/actuati on nasal spray LORazepam 1 2019- Yes [id number] 1mg Take 1 [facility] mg tablet 6-16 tablet by ity o f 00:00: mouth once [place] 00 daily as Medical needed for Branch Anxiety or Agitation. fluticasone 2019-0 Yes [id number] 2{spray Use 2 [facility] propionate 6-16 } Sprays in ity of (FLONASE 00:00: each [place] ALLERGY 00 nostril Medical RELIEF) 50 daily. Branch mcg/actuati on nasal spray LORazepam 1 2019-0 Yes [id number] 1mg Take 1 [facility] mg tablet 6-16 tablet by ity o f 00:00: mouth once [place] 00 daily as Medical needed for Branch Anxiety or Agitation. fluticasone 2019- Yes [id number] 2{spray Use 2 [facility] propionate 6-16 } Sprays in ity of (FLONASE 00:00: each [place] ALLERGY 00 nostril Medical RELIEF) 50 daily. Branch mcg/actuati on nasal spray LORazepam 1 2019- Yes [id number] 1mg Take 1 [facility] mg tablet 6-16 tablet by ity o f 00:00: mouth once [place] 00 daily as Medical needed for Branch Anxiety or Agitation. fluticasone 2019-0 Yes [id number] 2{spray Use 2 [facility] propionate 6-16 } Sprays in ity of (FLONASE 00:00: each [place] ALLERGY 00 nostril Medical RELIEF) 50 daily. Branch mcg/actuati on nasal spray fluticasone 2020-0 Yes [id number] 2{spray Use 2 [facility] propionate 6-16 } Sprays in ity of (FLONASE 00:00: each [place] ALLERGY 00 nostril Medical RELIEF) 50 daily. Branch mcg/actuati on nasal spray fluticasone 2020-0 Yes [id number] 2{spray Use 2 [facility] propionate 6-16 } Sprays in ity of (FLONASE 00:00: each [place] ALLERGY 00 nostril Medical RELIEF) 50 daily. Branch mcg/actuati on nasal spray fluticasone 2020-0 Yes [id number] 2{spray Use 2 [facility] propionate 6-16 } Sprays in ity of (FLONASE 00:00: each [place] ALLERGY 00 nostril Medical RELIEF) 50 daily. Branch mcg/actuati on nasal spray fluticasone 2020-0 Yes [id number] 2{spray Use 2 [facility] propionate 6-16 } Sprays in ity of (FLONASE 00:00: each [place] ALLERGY 00 nostril Medical RELIEF) 50 daily. Branch mcg/actuati on nasal spray fluticasone 2020-0 Yes [id number] 2{spray Use 2 [facility] propionate 6-16 } Sprays in ity of (FLONASE 00:00: each [place] ALLERGY 00 nostril Medical RELIEF) 50 daily. Branch mcg/actuati on nasal spray fluticasone 2020-0 Yes [id number] 2{spray Use 2 [facility] propionate 6-16 } Sprays in ity of (FLONASE 00:00: each [place] ALLERGY 00 nostril Medical RELIEF) 50 daily. Branch mcg/actuati on nasal spray fluticasone 2020-0 Yes [id number] 2{spray Use 2 [facility] propionate 6-16 } Sprays in ity of (FLONASE 00:00: each [place] ALLERGY 00 nostril Medical RELIEF) 50 daily. Branch mcg/actuati on nasal spray fluticasone 2020-0 Yes [id number] 2{spray Use 2 [facility] propionate 6-16 } Sprays in ity of (FLONASE 00:00: each [place] ALLERGY 00 nostril Medical RELIEF) 50 daily. Branch mcg/actuati on nasal spray fluticasone 2020-0 2020- No [id number] 2{spray Use 2 [facility] propionate 6-16 10-15 } Sprays in ity of (FLONASE 00:00: 00:00 each [place] ALLERGY 00 :00 nostril Medical RELIEF) 50 daily. Branch mcg/actuati on nasal spray LORazepam 1 2019-2019- No [id number] 1mg Take 1 [facility] mg tablet 6-16 08-18 tablet by ity of 00:00: 00:00 mouth once [place] 00 :00 daily as Medical needed for Branch Anxiety or Agitation. LORazepam 1 2019- No [id number] 1mg Take 1 [facility] mg tablet 6-16 08-18 tablet by ity of 00:00: 00:00 mouth once [place] 00 :00 daily as Medical needed for Branch Anxiety or Agitation. lithium 2020-0 Yes 100mg Take 100 Un[facility] rs carbonate 6-14 mg by ity of 300 mg 00:00: mouth 2 [place] tablet 00 (two) Medical times Branch daily. lithium 2020-0 Yes 100mg Take 100 [facility] rs carbonate 6-14 mg by ity of 300 mg 00:00: mouth 2 [place] tablet 00 (two) Medical times Branch daily. lithium 2020-0 Yes 100mg Take 100 [facility] rs carbonate 6-14 mg by ity of 300 mg 00:00: mouth 2 [place] tablet 00 (two) Medical times Branch daily. lithium 2020-0 Yes 100mg Take 100 [facility] rs carbonate 6-14 mg by ity of 300 mg 00:00: mouth 2 [place] tablet 00 (two) Medical times Branch daily. lithium 2020-0 Yes 100mg Take 100 [facility] rs carbonate 6-14 mg by ity of 300 mg 00:00: mouth 2 [place] tablet 00 (two) Medical times Branch daily. lithium 2020-0 Yes 100mg Take 100 [facility] rs carbonate 6-14 mg by ity of 300 mg 00:00: mouth 2 [place] tablet 00 (two) Medical times Branch daily. lithium 2020-0 Yes 100mg Take 100 [facility] rs carbonate 6-14 mg by ity of 300 mg 00:00: mouth 2 [place] tablet 00 (two) Medical times Branch daily. lithium 2020-0 Yes 100mg Take 100 [facility] rs carbonate 6-14 mg by ity of 300 mg 00:00: mouth 2 [place] tablet 00 (two) Medical times Branch daily. lithium 2020-0 Yes 100mg Take 100 [facility] rs carbonate 6-14 mg by ity of 300 mg 00:00: mouth 2 [place] tablet 00 (two) Medical times Branch daily. lithium 2020-0 Yes 100mg Take 100 [facility] carbonate 6-14 mg by ity of 300 mg 00:00: mouth 2 [place] tablet 00 (two) Medical times Branch daily. lithium 2020-0 Yes 100mg Take 100 [facility] rs carbonate 6-14 mg by ity of 300 mg 00:00: mouth 2 [place] tablet 00 (two) Medical times Branch daily. lithium 2020-0 Yes 100mg Take 100 [facility] rs carbonate 6-14 mg by ity of 300 mg 00:00: mouth 2 [place] tablet 00 (two) Medical times Branch daily. FLUoxetine 2020-0 Yes [id number] 60mg Take 3 [facility] nivers 20 mg 6-11 capsules ity of capsule 00:00: by mouth [place] 00 daily. Medical Branch FLUoxetine 2020-0 Yes [id number] 60mg Take 3 [facility] nivers 20 mg 6-11 capsules ity of capsule 00:00: by mouth [place] 00 daily. Medical Branch FLUoxetine 2020-0 Yes [id number] 60mg Take 3 [facility] nivers 20 mg 6-11 capsules ity of capsule 00:00: by mouth [place] 00 daily. Medical Branch FLUoxetine 2020-0 Yes [id number] 60mg Take 3 [facility] nivers 20 mg 6-11 capsules ity of capsule 00:00: by mouth [place] 00 daily. Medical Branch FLUoxetine 2020-0 Yes [id number] 60mg Take 3 [facility] nivers 20 mg 6-11 capsules ity of capsule 00:00: by mouth [place] 00 daily. Medical Branch FLUoxetine 2020-0 2020- No [id number] 60mg Take 3 [facility] 20 mg 6-11 08-18 capsules ity of capsule 00:00: 00:00 by mouth [place] 00 :00 daily. Medical Branch FLUoxetine 2020-0 2020- No [id number] 60mg Take 3 [facility] 20 mg 6-11 08-18 capsules ity of capsule 00:00: 00:00 by mouth [place] 00 :00 daily. Medical Branch pantoprazol 2020-0 Yes [id number] 40mg Take 1 [facility] e 40 mg EC 5-21 tablet by ity of tablet 00:00: mouth once [place] 00 daily as Medical needed for Branch Indigestio n. pantoprazol 2020-0 Yes [id number] 40mg Take 1 [facility] e 40 mg EC 5-21 tablet by ity of tablet 00:00: mouth once [place] 00 daily as Medical needed for Branch Indigestio n. pantoprazol 2019-0 Yes [id number] 40mg Take 1 [facility] e 40 mg EC 5-21 tablet by ity of tablet 00:00: mouth once 00 daily as Medical needed for Branch Indigestio n. pantoprazol 2019-0 2020- No [id number] 40mg Take 1 [facility] e 40 mg EC 5-21 06-23 tablet by ity of tablet 00:00: 00:00 mouth once [place] 00 :00 daily as Medical needed for Branch Indigestio n. cariprazine 2019-0 2020- No 10mg Take 10 mg [facility] HCl 5-19 05-19 by mouth ity of (VRAYLAR 16:24: 00:00 at [place] ORAL) 07 :00 bedtime. Medical Branch phenytoin 2019-0 Yes [id number] 400mg Take 4 U nivers Extended 5-19 capsules ity of (DILANTIN) 00:00: by mouth [place] 100 mg 00 daily. Medical capsule Branch FLUoxetine 2019-0 Yes 60mg Take 3 [facility] rs 20 mg 5-19 capsules ity of capsule 00:00: by mouth [place] 00 daily. Medical Branch levothyroxi 2019-0 Yes [id number] 150ug Take 1 [facility] ne 150 mcg 5-19 tablet by ity of tablet 00:00: mouth [place] 00 every Medical morning. Branch cholestyram 2019-0 Yes [id number] 2g Take 0.5 [facility] ine 4 gram 5-19 Packets by ity of powder 00:00: mouth 3 [place] 00 (three) Medical times Branch daily with meals. LORazepam 1 2019-0 Yes [id number] 1mg Take 1 [facility] mg tablet 5-19 tablet by ity o f 00:00: mouth once [place] 00 daily as Medical needed for Branch Anxiety or Agitation. nystatin 2019-0 Yes [id number] Apply to U nivers 100,000 5-19 area(s) 2 ity of unit/gram 00:00: (two) [place] powder 00 times Medical daily. Branch phenytoin 2019-0 Yes [id number] 400mg Take 4 U nivers Extended 5-19 capsules ity of (DILANTIN) 00:00: by mouth [place] 100 mg 00 daily. Medical capsule Branch levothyroxi 2019-0 Yes [id number] 150ug Take 1 [facility] ne 150 mcg 5-19 tablet by ity of tablet 00:00: mouth [place] 00 every Medical morning. Branch cholestyram 2020-0 Yes [id number] 2g Take 0.5 [facility] ine 4 gram 5-19 Packets by ity of powder 00:00: mouth 3 (three) Medical times Branch daily with meals. LORazepam 1 2019-0 Yes [id number] 1mg Take 1 [facility] mg tablet 5-19 tablet by ity o f 00:00: mouth once [place] 00 daily as Medical needed for Branch Anxiety or Agitation. nystatin 2020-0 Yes [id number] Apply to U nivers 100,000 5-19 area(s) 2 ity of unit/gram 00:00: (two) [place] powder 00 times Medical daily. Branch phenytoin 2020-0 Yes [id number] 400mg Take 4 U nivers Extended 5-19 capsules ity of (DILANTIN) 00:00: by mouth [place] 100 mg 00 daily. Medical capsule Branch levothyroxi 2020-0 Yes [id number] 150ug Take 1 [facility] ne 150 mcg 5-19 tablet by ity of tablet 00:00: mouth 00 every Medical morning. Branch cholestyram 2020-0 Yes [id number] 2g Take 0.5 [facility] ine 4 gram 5-19 Packets by ity of powder 00:00: mouth 3 (three) Medical times [place] daily with meals. nystatin 2020-0 Yes [id number] Apply to U nivers 100,000 5-19 area(s) 2 ity of unit/gram 00:00: (two) [place] powder 00 times Medical daily. Branch phenytoin 2020-0 Yes [id number] 400mg Take 4 U nivers Extended 5-19 capsules ity of (DILANTIN) 00:00: by mouth [place] 100 mg 00 daily. Medical capsule Branch levothyroxi 2020-0 Yes [id number] 150ug Take 1 [facility] ne 150 mcg 5-19 tablet by ity of tablet 00:00: mouth [place] 00 every Medical morning. Branch cholestyram 2020-0 Yes [id number] 2g Take 0.5 [facility] ine 4 gram 5-19 Packets by ity of powder 00:00: mouth 3 00 (three) Medical times Branch daily with meals. nystatin 2020-0 Yes [id number] Apply to U nivers 100,000 5-19 area(s) 2 ity of unit/gram 00:00: (two) [place] powder 00 times Medical daily. Branch phenytoin 2020-0 Yes [id number] 400mg Take 4 U nivers Extended 5-19 capsules ity of (DILANTIN) 00:00: by mouth [place] 100 mg 00 daily. Medical capsule Branch levothyroxi 2020-0 Yes [id number] 150ug Take 1 [facility] ne 150 mcg 5-19 tablet by ity of tablet 00:00: mouth [place] 00 every Medical morning. Branch cholestyram 2020-0 Yes [id number] 2g Take 0.5 [facility] ine 4 gram 5-19 Packets by ity of powder 00:00: mouth 3 00 (three) Medical times Branch daily with meals. nystatin 2020-0 Yes [id number] Apply to U nivers 100,000 5-19 area(s) 2 ity of unit/gram 00:00: (two) [place] powder 00 times Medical daily. Branch phenytoin 2020-0 Yes [id number] 400mg Take 4 U nivers Extended 5-19 capsules ity of (DILANTIN) 00:00: by mouth [place] 100 mg 00 daily. Medical capsule Branch levothyroxi 2020-0 Yes [id number] 150ug Take 1 [facility] ne 150 mcg 5-19 tablet by ity of tablet 00:00: mouth [place] 00 every Medical morning. Branch cholestyram 2020-0 Yes [id number] 2g Take 0.5 [facility] ine 4 gram 5-19 Packets by ity of powder 00:00: mouth 3 (three) Medical times [place] daily with meals. nystatin 2020-0 Yes [id number] Apply to U nivers 100,000 5-19 area(s) 2 ity of unit/gram 00:00: (two) [place] powder 00 times Medical daily. Branch phenytoin 2020-0 Yes [id number] 400mg Take 4 U nivers Extended 5-19 capsules ity of (DILANTIN) 00:00: by mouth [place] 100 mg 00 daily. Medical capsule Branch levothyroxi 2020-0 Yes [id number] 150ug Take 1 [facility] ne 150 mcg 5-19 tablet by ity of tablet 00:00: mouth [place] 00 every Medical morning. Branch cholestyram 2020-0 Yes [id number] 2g Take 0.5 [facility] ine 4 gram 5-19 Packets by ity of powder 00:00: mouth 3 [place] 00 (three) Medical times Branch daily with meals. phenytoin 2020-0 Yes [id number] 400mg Take 4 [facility] nivers Extended 5-19 capsules ity of (DILANTIN) 00:00: by mouth [place] 100 mg 00 daily. Medical capsule Branch levothyroxi 2020-0 Yes [id number] 150ug Take 1 [facility] ne 150 mcg 5-19 tablet by ity of tablet 00:00: mouth [place] every Medical morning. Branch cholestyram 2020-0 Yes [id number] 2g Take 0.5 [facility] ine 4 gram 5-19 Packets by ity of powder 00:00: mouth 3 [place] (three) Medical times Branch daily with meals. phenytoin 2020-0 Yes [id number] 400mg Take 4 [facility] nivers Extended 5-19 capsules ity of (DILANTIN) 00:00: by mouth [place] 100 mg 00 daily. Medical capsule Branch levothyroxi 2020-0 Yes [id number] 150ug Take 1 [facility] ne 150 mcg 5-19 tablet by ity of tablet 00:00: mouth [place] every Medical morning. Branch cholestyram 2020-0 Yes [id number] 2g Take 0.5 [facility] ine 4 gram 5-19 Packets by ity of powder 00:00: mouth [place] (three) Medical times Branch daily with meals. phenytoin 2020-0 Yes [id number] 400mg Take 4 [facility] nivers Extended 5-19 capsules ity of (DILANTIN) 00:00: by mouth [place] 100 mg 00 daily. Medical capsule Branch levothyroxi 2020-0 Yes [id number] 150ug Take 1 [facility] ne 150 mcg 5-19 tablet by ity of tablet 00:00: mouth [place] every Medical morning. Branch cholestyram 2020-0 Yes [id number] 2g Take 0.5 [facility] ine 4 gram 5-19 Packets by ity of powder 00:00: mouth 3 [place] (three) Medical times Branch daily with meals. phenytoin 2020-0 Yes [id number] 400mg Take 4 [facility] nivers Extended 5-19 capsules ity of (DILANTIN) 00:00: by mouth [place] 100 mg 00 daily. Medical capsule Branch levothyroxi 2020-0 Yes [id number] 150ug Take 1 [facility] ne 150 mcg 5-19 tablet by ity of tablet 00:00: mouth [place] every Medical morning. Branch cholestyram 2020-0 Yes [id number] 2g Take 0.5 [facility] ine 4 gram 5-19 Packets by ity of powder 00:00: mouth 3 (three) Medical times Branch daily with meals. phenytoin 2020-0 Yes [id number] 400mg Take 4 [facility] nivers Extended 5-19 capsules ity of (DILANTIN) 00:00: by mouth [place] 100 mg 00 daily. Medical capsule Branch levothyroxi 2020-0 Yes [id number] 150ug Take 1 [facility] ne 150 mcg 5-19 tablet by ity of tablet 00:00: mouth 00 every Medical morning. Branch cholestyram 2020-0 Yes [id number] 2g Take 0.5 [facility] ine 4 gram 5-19 Packets by ity of powder 00:00: mouth (three) Medical times Branch daily with meals. phenytoin 2020-0 Yes [id number] 400mg Take 4 [facility] nivers Extended 5-19 capsules ity of (DILANTIN) 00:00: by mouth [place] 100 mg 00 daily. Medical capsule Branch levothyroxi 2019-0 Yes [id number] 150ug Take 1 [facility] ne 150 mcg 5-19 tablet by ity of tablet 00:00: mouth every Medical morning. Branch cholestyram 2019-0 Yes [id number] 2g Take 0.5 [facility] ine 4 gram 5-19 Packets by ity of powder 00:00: mouth (three) Medical times Branch daily with meals. phenytoin 2020-0 Yes [id number] 400mg Take 4 [facility] nivers Extended 5-19 capsules ity of (DILANTIN) 00:00: by mouth [place] 100 mg 00 daily. Medical capsule Branch levothyroxi 2020-0 Yes [id number] 150ug Take 1 [facility] ne 150 mcg 5-19 tablet by ity of tablet 00:00: mouth every Medical morning. Branch cholestyram 2020-0 Yes [id number] 2g Take 0.5 [facility] ine 4 gram 5-19 Packets by ity of powder 00:00: mouth (three) Medical times Branch daily with meals. phenytoin 2020-0 Yes [id number] 400mg Take 4 [facility] nivers Extended 5-19 capsules ity of (DILANTIN) 00:00: by mouth [place] 100 mg 00 daily. Medical capsule Branch levothyroxi 2020-0 Yes [id number] 150ug Take 1 [facility] ne 150 mcg 5-19 tablet by ity of tablet 00:00: mouth 00 every Medical morning. Branch cholestyram 2020-0 Yes [id number] 2g Take 0.5 [facility] ine 4 gram 5-19 Packets by ity of powder 00:00: mouth 3 (three) Medical times Branch daily with meals. phenytoin 2020-0 Yes [id number] 400mg Take 4 [facility] nivers Extended 5-19 capsules ity of (DILANTIN) 00:00: by mouth [place] 100 mg 00 daily. Medical capsule Branch levothyroxi 2020-0 Yes [id number] 150ug Take 1 [facility] ne 150 mcg 5-19 tablet by ity of tablet 00:00: mouth every Medical morning. Branch cholestyram 2020-0 Yes [id number] 2g Take 0.5 [facility] ine 4 gram 5-19 Packets by ity of powder 00:00: mouth (three) Medical times Branch daily with meals. phenytoin 2020-0 Yes [id number] 400mg Take 4 [facility] Extended 5-19 capsules ity of (DILANTIN) 00:00: by mouth [place] 100 mg 00 daily. Medical capsule Branch levothyroxi 2020-0 Yes [id number] 150ug Take 1 [facility] ne 150 mcg 5-19 tablet by ity of tablet 00:00: mouth every Medical morning. Branch cholestyram 2020-0 Yes [id number] 2g Take 0.5 [facility] ine 4 gram 5-19 Packets by ity of powder 00:00: mouth (three) Medical times Branch daily with meals. phenytoin 2020-0 Yes [id number] 400mg Take 4 [facility] Extended 5-19 capsules ity of (DILANTIN) 00:00: by mouth [place] 100 mg 00 daily. Medical capsule Branch levothyroxi 2020-0 Yes [id number] 150ug Take 1 [facility] ne 150 mcg 5-19 tablet by ity of tablet 00:00: mouth every Medical morning. Branch cholestyram 2020-0 Yes [id number] 2g Take 0.5 [facility] ine 4 gram 5-19 Packets by ity of powder 00:00: mouth 3 (three) Medical times Branch daily with meals. phenytoin 2020-0 Yes [id number] 400mg Take 4 [facility] Extended 5-19 capsules ity of (DILANTIN) 00:00: by mouth [place] 100 mg 00 daily. Medical capsule Branch levothyroxi 2020-0 Yes [id number] 150ug Take 1 [facility] ne 150 mcg 5-19 tablet by ity of tablet 00:00: mouth [place] 00 every Medical morning. Branch cholestyram 2019-0 Yes [id number] 2g Take 0.5 [facility] ine 4 gram 5-19 Packets by ity of powder 00:00: mouth 3 [place] 00 (three) Medical times Branch daily with meals. nystatin 2019-0 Yes [id number] Apply to [facility] nivers 100,000 5-19 area(s) 2 ity of unit/gram 00:00: (two) [place] powder 00 times Medical daily. Branch nystatin 2019- 2020- No [id number] Apply to [facility] 100,000 5-19 08-18 area(s) 2 ity of unit/gram 00:00: 00:00 (two) [place] powder 00 :00 times Medical daily. Branch nystatin 2019- 2020- No [id number] Apply to [facility] 100,000 5-19 08-18 area(s) 2 ity of unit/gram 00:00: 00:00 (two) [place] powder 00 :00 times Medical daily. Branch LORazepam 1 2019- 2020- No [id number] 1mg Take 1 [facility] mg tablet -02 10-16 tablet by ity of 00:00: 00:00 mouth once [place] 00 :00 daily as Medical needed for Branch Anxiety or Agitation. LORazepam 1 2020- No [id number] 1mg Take 1 [facility] mg tablet -02 10-16 tablet by ity of 00:00: 00:00 mouth once [place] 00 :00 daily as Medical needed for Branch Anxiety or Agitation. FLUoxetine 2019- 2020- No 60mg Take 3 [facility] ers 20 mg - 06-08 capsules ity of capsule 00:00: 00:00 by mouth [place] 00 :00 daily. Medical Branch FLUoxetine 2019-0 2020- No 60mg Take 3 [facility] ers 20 mg 5-19 06-08 capsules ity of capsule 00:00: 00:00 by mouth [place] 00 :00 daily. Medical Branch pantoprazol 2019- 2020- No [id number] 40mg Take 1 [facility] e 40 mg EC - 05-21 tablet by ity of tablet 00:00: 00:00 mouth [place] 00 :00 daily as Medical needed for Branch Indigestio n. pantoprazol 2019-0 2020- No [id number] 40mg Take 1 [facility] e 40 mg EC -01 09- tablet by ity of tablet 00:00: 00:00 mouth [place] 00 :00 daily as Medical needed for Branch Indigestio n. LORazepam 1 2020- No [id number] 1mg Take 1 [facility] mg tablet 09-01- tablet by ity of 00:00: 00:00 mouth [place] 00 :00 every Medical other day. Branch PANTOPRAZOL 2019- Yes [id number] TAKE 1 [facility] E 40 mg EC 5-12 TABLET BY ity of tablet 00:00: MOUTH [place] 00 TWICE A Medical DAY Branch PANTOPRAZOL Yes [id number] TAKE 1 [facility] E 40 mg EC 5-12 TABLET BY ity of tablet 00:00: MOUTH [place] 00 TWICE A Medical DAY Branch PANTOPRAZOL 2020- No [id number] TAKE 1 [facility] E 40 mg EC 5-03 20- TABLET BY ity of tablet 00:00: 00:00 MOUTH [place] 00 :00 TWICE A Medical DAY Branch levothyroxi 2019- Yes [id number] 150ug Take 1 [facility] ne 150 mcg 4-27 tablet by ity of tablet 00:00: mouth [place] 00 every Medical morning. Branch levothyroxi Yes [id number] 150ug Take 1 [facility] ne 150 mcg 4-27 tablet by ity of tablet 00:00: mouth [place] 00 every Medical morning. Branch levothyroxi 2020- No [id number] 150ug Take 1 [facility] ne 150 mcg 4-27 -19 tablet by ity of tablet 00:00: 00:00 mouth [place] 00 :00 every Medical morning. Branch acetaminoph Yes [id number] .5{tbl} Take 0.5-1 [facility] en-codeine 4-24 [id number] tablets by it y of (TYLENOL-CO 00:00: mouth [place] DEINE #3) 00 every 4 Medical 300-30 mg (four) Branch tablet hours as needed (pain). Pt medicaid is under her maiden name Cyndie Doan acetaminoph 2019- Yes [id number] .5{tbl} Take 0.5-1 [facility] en-codeine 4-24 [id number] tablets by it y of (TYLENOL-CO 00:00: mouth [place] DEINE #3) 00 every 4 Medical 300-30 mg (four) Branch tablet hours as needed (pain). Pt medicaid is under her maiden name Cyndie cruzaminoph 2020-0 Yes [id number] .5{tbl} Take 0.5-1 [facility] en-codeine 4-24 [id number] tablets by it y of (TYLENOL-CO 00:00: mouth [place] DEINE #3) 00 every 4 Medical 300-30 mg (four) Branch tablet hours as needed (pain). Pt medicaid is under her maiden name Cyndie Doan acetaminoph 2020-0 Yes [id number] .5{tbl} Take 0.5-1 [facility] en-codeine 4-24 [id number] tablets by it y of (TYLENOL-CO 00:00: mouth [place] DEINE #3) 00 every 4 Medical 300-30 mg (four) Branch tablet hours as needed (pain). Pt medicaid is under her maiden name Cyndie Doan acetaminoph 2020-0 Yes [id number] .5{tbl} Take 0.5-1 [facility] en-codeine 4-24 [id number] tablets by it y of (TYLENOL-CO 00:00: mouth [place] DEINE #3) 00 every 4 Medical 300-30 mg (four) Branch tablet hours as needed (pain). Pt medicaid is under her maiden name Cyndie cruzaminoph 2020-0 Yes [id number] .5{tbl} Take 0.5-1 [facility] en-codeine 4-24 [id number] tablets by it y of (TYLENOL-CO 00:00: mouth [place] DEINE #3) 00 every 4 Medical 300-30 mg (four) Branch tablet hours as needed (pain). Pt medicaid is under her maiden name Cyndie Doan acetaminoph 2020-0 Yes [id number] .5{tbl} Take 0.5-1 [facility] en-codeine 4-24 [id number] tablets by it y of (TYLENOL-CO 00:00: mouth [place] DEINE #3) 00 every 4 Medical 300-30 mg (four) Branch tablet hours as needed (pain). Pt medicaid is under her maiden name Cyndie Doan acetaminoph 2020-0 Yes [id number] .5{tbl} Take 0.5-1 [facility] en-codeine 4-24 [id number] tablets by it y of (TYLENOL-CO 00:00: mouth [place] DEINE #3) 00 every 4 Medical 300-30 mg (four) Branch tablet hours as needed (pain). Pt medicaid is under her maiden name Cyndie Doan acetaminoph 2020-0 Yes [id number] .5{tbl} Take 0.5-1 [facility] en-codeine 4-24 [id number] tablets by it y of (TYLENOL-CO 00:00: mouth [place] DEINE #3) 00 every 4 Medical 300-30 mg (four) Branch tablet hours as needed (pain). Pt medicaid is under her maiden name Cyndie Doan acetaminoph 2020-0 2020- No [id number] .5{tbl} Take 0.5-1 [facility] en-codeine 4-24 -18 [id number] tablets by i ty of (TYLENOL-CO 00:00: 00:00 mouth [place] DEINE #3[place] 00 :00 every 4 Medical 300-30 mg (four) Branch tablet hours as needed (pain). Pt medicaid is under her maiden name Cyndie Doan acetaminoph 2020-0 2020- No [id number] .5{tbl} Take 0.5-1 [facility] en-codeine 4-24 -18 [id number] tablets by i ty of (TYLENOL-CO 00:00: 00:00 mouth [place] DEINE #3) 00 :00 every 4 Medical 300-30 mg (four) Branch tablet hours as needed (pain). Pt medicaid is under her maiden name Cyndie Doan clotrimazol 2020-0 Yes [id number] Apply to [facility] e 1 % 4-21 area(s) 2 ity of topical 00:00: (two) [place] cream 00 times Medical daily. Branch clotrimazol 2020-0 Yes [id number] Apply to [facility] e 1 % 4-21 area(s) 2 ity of topical 00:00: (two) [place] cream 00 times Medical daily. Branch clotrimazol 2020-0 Yes [id number] Apply to [facility] e 1 % 4-21 area(s) 2 ity of topical 00:00: (two) [place] cream 00 times Medical daily. Branch clotrimazol 2020-0 Yes [id number] Apply to [facility] e 1 % 4-21 area(s) 2 ity of topical 00:00: (two) [place] cream 00 times Medical daily. Branch clotrimazol 2020-0 Yes [id number] Apply to [facility] e 1 % 4-21 area(s) 2 ity of topical 00:00: (two) [place] cream 00 times Medical daily. Branch clotrimazol 2020-0 Yes [id number] Apply to [facility] e 1 % 4-21 area(s) 2 ity of topical 00:00: (two) [place] cream 00 times Medical daily. Branch clotrimazol 2020-0 Yes [id number] Apply to [facility] e 1 % 4-21 area(s) 2 ity of topical 00:00: (two) [place] cream 00 times Medical daily. Branch clotrimazol 2020-0 2020- No [id number] Apply to [facility] e 1 % 4-21 05-19 area(s) 2 ity of topical 00:00: 00:00 (two) [place] cream 00 :00 times Medical daily. Branch ketoconazol 2020-0 Yes [id number] Apply to [facility] e 2 % cream 4-17 area(s) 2 ity of 00:00: (two) [place] 00 times Medical daily. Branch ketoconazol 2020-0 Yes [id number] Apply to [facility] e 2 % cream 4-17 area(s) 2 ity of 00:00: (two) [place] 00 times Medical daily. Branch ketoconazol 2020-0 2020- No [id number] Apply to [facility] e 2 % cream 4-17 04-21 area(s) 2 it y of 00:00: 00:00 (two) [place] 00 :00 times Medical daily. Branch ketoconazol 2020-0 2020- No [id number] Apply to [facility] e 2 % cream 4-17 04-21 area(s) 2 it y of 00:00: 00:00 (two) [place] 00 :00 times Medical daily. [place] LORazepam 1 2020-0 Yes [id number] 1mg Take 1 [facility] mg tablet 4-07 tablet by ity o f 00:00: mouth 2 (two) Medical times per Branch week for Anxiety or Agitation. LORazepam 1 2020-0 Yes [id number] 1mg Take 1 [facility] mg tablet 4-07 tablet by ity o f 00:00: mouth 2 (two) Medical times per Branch week for Anxiety or Agitation. LORazepam 1 2020-0 Yes [id number] 1mg Take 1 [facility] mg tablet 4-07 tablet by ity o f 00:00: mouth 2 (two) Medical times per Branch week for Anxiety or Agitation. LORazepam 1 2020-0 Yes [id number] 1mg Take 1 [facility] mg tablet 4-07 tablet by ity o f 00:00: mouth 2 (two) Medical times per Branch week for Anxiety or Agitation. LORazepam 1 2020-0 Yes [id number] 1mg Take 1 [facility] mg tablet 4-07 tablet by ity o f 00:00: mouth (two) Medical times per Branch week for Anxiety or Agitation. LORazepam 1 2020-0 Yes [id number] 1mg Take 1 [facility] mg tablet 4-07 tablet by ity o f 00:00: mouth (two) Medical times per Branch week for Anxiety or Agitation. LORazepam 1 2020-0 Yes [id number] 1mg Take 1 [facility] mg tablet 4-07 tablet by ity o f 00:00: mouth (two) Medical times per Branch week for Anxiety or Agitation. LORazepam 1 2020-0 Yes [id number] 1mg Take 1 [facility] mg tablet 4-07 tablet by ity o f 00:00: mouth (two) Medical times per Branch week for Anxiety or Agitation. LORazepam 1 2020-0 Yes [id number] 1mg Take 1 [facility] mg tablet 4-07 tablet by ity o f 00:00: mouth (two) Medical times per Branch week for Anxiety or Agitation. LORazepam 1 2020-0 Yes [id number] 1mg Take 1 [facility] mg tablet 4-07 tablet by ity o f 00:00: mouth (two) Medical times per Branch week for Anxiety or Agitation. LORazepam 1 2020-0 Yes [id number] 1mg Take 1 [facility] mg tablet 4-07 tablet by ity o f 00:00: mouth (two) Medical times per Branch week for Anxiety or Agitation. LORazepam 1 2020-0 Yes [id number] 1mg Take 1 [facility] mg tablet 4-07 tablet by ity o f 00:00: mouth (two) Medical times per Branch week for Anxiety or Agitation. LORazepam 1 2020-0 2020- No [id number] 1mg Take 1 [facility] mg tablet 07-21 05-19 tablet by ity of 00:00: 00:00 mouth 2 [place] 00 :00 (two) Medical times per Branch week for Anxiety or Agitation. cariprazine 2020-0 Yes 10mg Take 10 mg [facility] HCl 3-24 by mouth ity of (VRAYLAR 13:57: at [place] ORAL) 55 bedtime. [facility] Branch cariprazine 2020-0 Yes 10mg Take 10 mg [facility] HCl 3-24 by mouth ity of (VRAYLAR 13:57: at [place] ORAL) 55 bedtime. [facility] Branch cariprazine 2020-0 Yes 10mg Take 10 mg [facility] HCl 3-24 by mouth ity of (VRAYLAR 13:57: at [place] ORAL) 55 bedtime. [facility] Branch cariprazine 2020-0 Yes 10mg Take 10 mg [facility] HCl 3-24 by mouth ity of (VRAYLAR 13:57: at [place] ORAL) 55 bedtime. [facility] Branch cariprazine 2020-0 Yes 10mg Take 10 mg [facility] HCl 3-24 by mouth ity of (VRAYLAR 13:57: at [place] ORAL) 55 bedtime. [facility] Branch cariprazine 2020-0 Yes 10mg Take 10 mg [facility] HCl 3-24 by mouth ity of (VRAYLAR 13:57: at [place] ORAL) 55 bedtime. [facility] Branch cariprazine 2020-0 Yes 10mg Take 10 mg [facility] HCl 3-24 by mouth ity of (VRAYLAR 13:57: at [place] ORAL) 55 bedtime. [facility] Branch cariprazine 2020-0 Yes 10mg Take 10 mg [facility] HCl 3-24 by mouth ity of (VRAYLAR 13:57: at [place] ORAL) 55 bedtime. [facility] Branch cariprazine 2020-0 Yes 10mg Take 10 mg [facility] HCl 3-24 by mouth ity of (VRAYLAR 13:57: at [place] ORAL) 55 bedtime. [facility] Branch cariprazine 2020-0 Yes 10mg Take 10 mg [facility] HCl 3-24 by mouth ity of (VRAYLAR 13:57: at [place] ORAL) 55 bedtime. [facility] cariprazine 2020-0 Yes 10mg Take 10 mg [facility] HCl 3-24 by mouth ity of (VRAYLAR 13:57: at [place] ORAL) 55 bedtime. Medical Branch cariprazine 2020-0 Yes 10mg Take 10 mg [facility] HCl 3-24 by mouth ity of (VRAYLAR 13:57: at [place] ORAL) 55 bedtime. Medical Branch cariprazine 2020-0 Yes 10mg Take 10 mg [facility] HCl 3-24 by mouth ity of (VRAYLAR 13:57: at [place] ORAL) 55 bedtime. Medical Branch cariprazine 2020-0 Yes 10mg Take 10 mg [facility] HCl 3-24 by mouth ity of (VRAYLAR 13:57: at [place] ORAL) 55 bedtime. Medical Branch cariprazine 2020-0 Yes 10mg Take 10 mg [facility] HCl 3-24 by mouth ity of (VRAYLAR 13:57: at [place] ORAL) 55 bedtime. Medical Branch cariprazine 2020-0 Yes 10mg Take 10 mg [facility] HCl 3-24 by mouth ity of (VRAYLAR 13:57: at [place] ORAL) 55 bedtime. Medical Branch cariprazine 2020-0 Yes 10mg Take 10 mg [facility] HCl 3-24 by mouth ity of (VRAYLAR 13:57: at [place] ORAL) 55 bedtime. Medical Branch cariprazine 2020-0 Yes 10mg Take 10 mg [facility] HCl 3-24 by mouth ity of (VRAYLAR 13:57: at [place] ORAL) 55 bedtime. Medical Branch cariprazine 2020-0 Yes 10mg Take 10 mg [facility] HCl 3-24 by mouth ity of (VRAYLAR 13:57: at [place] ORAL) 55 bedtime. Medical Branch cariprazine 2020-0 Yes 10mg Take 10 mg [facility] HCl 3-24 by mouth ity of (VRAYLAR 13:57: at [place] ORAL) 55 bedtime. Medical Branch cariprazine 2020-0 Yes 10mg Take 10 mg [facility] HCl 3-24 by mouth ity of (VRAYLAR 13:57: at [place] ORAL) 55 bedtime. Medical Branch cariprazine 2020-0 Yes 10mg Take 10 mg [facility] HCl 3-24 by mouth ity of (VRAYLAR 13:57: at [place] ORAL) 55 bedtime. Medical Branch cariprazine 2020-0 Yes 10mg Take 10 mg [facility] HCl 3-24 by mouth ity of (VRAYLAR 13:57: at [place] ORAL) 55 bedtime. Medical Branch pantoprazol 2020-0 2020- No 40mg Take 40 mg [facility] e 40 mg EC 3-24 03-24 by mouth 2 it y of tablet 13:52: 00:00 (two) [place] 30 :00 times Medical daily. Branch phenytoin 2020-0 Yes [id number] 400mg Take 4 U nivers Extended 3-24 capsules ity of (DILANTIN) 00:00: by mouth [place] 100 mg 00 daily. Medical capsule Branch FLUoxetine 2019-0 Yes 40mg Take 1 Unive rs (PROZAC) 40 3-24 capsule by it y of mg capsule 00:00: mouth [place] 00 daily. Medical Branch cholestyram 2020-0 Yes [id number] 2g Take 0.5 [facility] ine 4 gram 3-24 Packets by ity of powder 00:00: mouth 3 [place] 00 (three) Medical times Branch daily with meals. clonazePAM 2020-0 Yes [id number] 1mg Take 1 [facility] 1 mg tablet 3-24 tablet by ity of 00:00: mouth once [place] 00 daily as Medical needed Branch (panic attack). pantoprazol 2020-0 Yes [id number] 40mg Take 1 [facility] e 40 mg EC 3-24 tablet by ity of tablet 00:00: mouth 2 [place] 00 (two) Medical times Branch daily. famotidine 2020-0 Yes [id number] 20mg Take 1 [facility] (PEPCID AC) 3-24 tablet by ity of 20 mg 00:00: mouth 2 [place] tablet 00 (two) Medical times Branch daily. phenytoin 2020-0 Yes [id number] 400mg Take 4 U nivers Extended 3-24 capsules ity of (DILANTIN) 00:00: by mouth [place] 100 mg 00 daily. Medical capsule Branch FLUoxetine 2019-0 Yes 40mg Take 1 Unive rs (PROZAC) 40 3-24 capsule by it y of mg capsule 00:00: mouth [place] 00 daily. Medical Branch cholestyram 2020-0 Yes [id number] 2g Take 0.5 [facility] ine 4 gram 3-24 Packets by ity of powder 00:00: mouth 3 [place] 00 (three) Medical times Branch daily with meals. clonazePAM 2020-0 Yes [id number] 1mg Take 1 [facility] 1 mg tablet 3-24 tablet by ity of 00:00: mouth once [place] 00 daily as Medical needed Branch (panic attack). pantoprazol 2020-0 Yes [id number] 40mg Take 1 [facility] e 40 mg EC 3-24 tablet by ity of tablet 00:00: mouth 2 [place] 00 (two) Medical times Branch daily. famotidine 2020-0 Yes [id number] 20mg Take 1 [facility] (PEPCID AC) 3-24 tablet by ity of 20 mg 00:00: mouth 2 [place] tablet 00 (two) Medical times Branch daily. phenytoin 2020-0 Yes [id number] 400mg Take 4 U nivers Extended 3-24 capsules ity of (DILANTIN) 00:00: by mouth [place] 100 mg 00 daily. Medical capsule Branch FLUoxetine 2020-0 Yes 40mg Take 1 Unive rs (PROZAC) 40 3-24 capsule by it y of mg capsule 00:00: mouth [place] 00 daily. Medical Branch cholestyram 2020-0 Yes [id number] 2g Take 0.5 [facility] ine 4 gram 3-24 Packets by ity of powder 00:00: mouth 3 (three) Medical times Branch daily with meals. clonazePAM 2020-0 Yes [id number] 1mg Take 1 [facility] 1 mg tablet 3-24 tablet by ity of 00:00: mouth once [place] 00 daily as Medical needed Branch (panic attack). pantoprazol 2020-0 Yes [id number] 40mg Take 1 [facility] e 40 mg EC 3-24 tablet by ity of tablet 00:00: mouth 2 [place] 00 (two) Medical times Branch daily. famotidine 2020-0 Yes [id number] 20mg Take 1 [facility] (PEPCID AC) 3-24 tablet by ity of 20 mg 00:00: mouth 2 [place] tablet 00 (two) Medical times Branch daily. phenytoin 2020-0 Yes [id number] 400mg Take 4 U nivers Extended 3-24 capsules ity of (DILANTIN) 00:00: by mouth [place] 100 mg 00 daily. Medical capsule Branch FLUoxetine 2020-0 Yes 40mg Take 1 Unive rs (PROZAC) 40 3-24 capsule by it y of mg capsule 00:00: mouth [place] 00 daily. Medical Branch cholestyram 2020-0 Yes [id number] 2g Take 0.5 [facility] ine 4 gram 3-24 Packets by ity of powder 00:00: mouth 3 00 (three) Medical times Branch daily with meals. clonazePAM 2020-0 Yes [id number] 1mg Take 1 [facility] 1 mg tablet 3-24 tablet by ity of 00:00: mouth once [place] 00 daily as Medical needed Branch (panic attack). pantoprazol 2020-0 Yes [id number] 40mg Take 1 [facility] e 40 mg EC 3-24 tablet by ity of tablet 00:00: mouth 2 [place] 00 (two) Medical times Branch daily. famotidine 2020-0 Yes [id number] 20mg Take 1 [facility] (PEPCID AC) 3-24 tablet by ity of 20 mg 00:00: mouth 2 [place] tablet 00 (two) Medical times Branch daily. phenytoin 2020-0 Yes [id number] 400mg Take 4 U nivers Extended 3-24 capsules ity of (DILANTIN) 00:00: by mouth [place] 100 mg 00 daily. Medical capsule Branch FLUoxetine 2020-0 Yes 40mg Take 1 Unive rs (PROZAC) 40 3-24 capsule by it y of mg capsule 00:00: mouth [place] 00 daily. Medical Branch cholestyram 2020-0 Yes [id number] 2g Take 0.5 [facility] ine 4 gram 3-24 Packets by ity of powder 00:00: mouth 3 [place] 00 (three) Medical times Branch daily with meals. clonazePAM 2020-0 Yes [id number] 1mg Take 1 [facility] 1 mg tablet 3-24 tablet by ity of 00:00: mouth once 00 daily as Medical needed Branch (panic attack). pantoprazol 2020-0 Yes [id number] 40mg Take 1 [facility] e 40 mg EC 3-24 tablet by ity of tablet 00:00: mouth 2 [place] 00 (two) Medical times Branch daily. famotidine 2020-0 Yes [id number] 20mg Take 1 [facility] (PEPCID AC) 3-24 tablet by ity of 20 mg 00:00: mouth 2 [place] tablet 00 (two) Medical times Branch daily. phenytoin 2020-0 Yes [id number] 400mg Take 4 U nivers Extended 3-24 capsules ity of (DILANTIN) 00:00: by mouth [place] 100 mg 00 daily. Medical capsule Branch FLUoxetine 2020-0 Yes 40mg Take 1 Unive rs (PROZAC) 40 3-24 capsule by it y of mg capsule 00:00: mouth [place] 00 daily. Medical Branch cholestyram 2020-0 Yes [id number] 2g Take 0.5 [facility] ine 4 gram 3-24 Packets by ity of powder 00:00: mouth 3 [place] 00 (three) Medical times Branch daily with meals. clonazePAM 2020-0 Yes [id number] 1mg Take 1 [facility] 1 mg tablet 3-24 tablet by ity of 00:00: mouth once [place] 00 daily as Medical needed Branch (panic attack). pantoprazol 2020-0 Yes [id number] 40mg Take 1 [facility] e 40 mg EC 3-24 tablet by ity of tablet 00:00: mouth 2 [place] 00 (two) Medical times Branch daily. famotidine 2020-0 Yes [id number] 20mg Take 1 [facility] (PEPCID AC) 3-24 tablet by ity of 20 mg 00:00: mouth 2 [place] tablet 00 (two) Medical times Branch daily. phenytoin 2020-0 Yes [id number] 400mg Take 4 U nivers Extended 3-24 capsules ity of (DILANTIN) 00:00: by mouth [place] 100 mg 00 daily. Medical capsule Branch FLUoxetine 2020-0 Yes 40mg Take 1 Unive rs (PROZAC) 40 3-24 capsule by it y of mg capsule 00:00: mouth [place] 00 daily. Medical Branch cholestyram 2020-0 Yes [id number] 2g Take 0.5 [facility] ine 4 gram 3-24 Packets by ity of powder 00:00: mouth 3 (three) Medical times Branch daily with meals. clonazePAM 2020-0 Yes [id number] 1mg Take 1 [facility] 1 mg tablet 3-24 tablet by ity of 00:00: mouth once [place] 00 daily as Medical needed Branch (panic attack). pantoprazol 2020-0 Yes [id number] 40mg Take 1 [facility] e 40 mg EC 3-24 tablet by ity of tablet 00:00: mouth 2 [place] 00 (two) Medical times Branch daily. famotidine 2020-0 Yes [id number] 20mg Take 1 [facility] (PEPCID AC) 3-24 tablet by ity of 20 mg 00:00: mouth 2 [place] tablet 00 (two) Medical times Branch daily. phenytoin 2020-0 Yes [id number] 400mg Take 4 U nivers Extended 3-24 capsules ity of (DILANTIN) 00:00: by mouth [place] 100 mg 00 daily. Medical capsule Branch FLUoxetine 2020-0 Yes 40mg Take 1 Unive rs (PROZAC) 40 3-24 capsule by it y of mg capsule 00:00: mouth [place] 00 daily. Medical Branch cholestyram 2020-0 Yes [id number] 2g Take 0.5 [facility] ine 4 gram 3-24 Packets by ity of powder 00:00: mouth 3 [place] (three) Medical times Branch daily with meals. clonazePAM 2020-0 Yes [id number] 1mg Take 1 [facility] 1 mg tablet 3-24 tablet by ity of 00:00: mouth once [place] 00 daily as Medical needed Branch (panic attack). pantoprazol 2020-0 Yes [id number] 40mg Take 1 [facility] e 40 mg EC 3-24 tablet by ity of tablet 00:00: mouth 2 [place] 00 (two) Medical times Branch daily. famotidine 2020-0 Yes [id number] 20mg Take 1 [facility] (PEPCID AC) 3-24 tablet by ity of 20 mg 00:00: mouth 2 [place] tablet 00 (two) Medical times Branch daily. phenytoin 2020-0 Yes [id number] 400mg Take 4 U nivers Extended 3-24 capsules ity of (DILANTIN) 00:00: by mouth [place] 100 mg 00 daily. Medical capsule Branch FLUoxetine 2020-0 Yes 40mg Take 1 Unive rs (PROZAC) 40 3-24 capsule by it y of mg capsule 00:00: mouth [place] 00 daily. Medical Branch cholestyram 2020-0 Yes [id number] 2g Take 0.5 [facility] ine 4 gram 3-24 Packets by ity of powder 00:00: mouth 3 [place] 00 (three) Medical times Branch daily with meals. pantoprazol 2020-0 Yes [id number] 40mg Take 1 [facility] e 40 mg EC 3-24 tablet by ity of tablet 00:00: mouth 2 [place] 00 (two) Medical times Branch daily. famotidine 2020-0 Yes [id number] 20mg Take 1 [facility] (PEPCID AC) 3-24 tablet by ity of 20 mg 00:00: mouth 2 [place] tablet 00 (two) Medical times Branch daily. phenytoin 2020-0 Yes [id number] 400mg Take 4 U nivers Extended 3-24 capsules ity of (DILANTIN) 00:00: by mouth [place] 100 mg 00 daily. Medical capsule Branch FLUoxetine 2020-0 Yes 40mg Take 1 Unive rs (PROZAC) 40 3-24 capsule by it y of mg capsule 00:00: mouth [place] 00 daily. Medical Branch cholestyram 2020-0 Yes [id number] 2g Take 0.5 [facility] ine 4 gram 3-24 Packets by ity of powder 00:00: mouth 3 (three) Medical times Branch daily with meals. pantoprazol 2020-0 Yes [id number] 40mg Take 1 [facility] e 40 mg EC 3-24 tablet by ity of tablet 00:00: mouth 2 [place] 00 (two) Medical times Branch daily. famotidine 2020-0 Yes [id number] 20mg Take 1 [facility] (PEPCID AC) 3-24 tablet by ity of 20 mg 00:00: mouth 2 [place] tablet 00 (two) Medical times Branch daily. phenytoin 2020-0 Yes [id number] 400mg Take 4 U nivers Extended 3-24 capsules ity of (DILANTIN) 00:00: by mouth [place] 100 mg 00 daily. Medical capsule Branch FLUoxetine 2020-0 Yes 40mg Take 1 Unive rs (PROZAC) 40 3-24 capsule by it y of mg capsule 00:00: mouth 00 daily. Medical Branch cholestyram 2020-0 Yes [id number] 2g Take 0.5 [facility] ine 4 gram 3-24 Packets by ity of powder 00:00: mouth 3 (three) Medical times Branch daily with meals. pantoprazol 2020-0 Yes [id number] 40mg Take 1 [facility] e 40 mg EC 3-24 tablet by ity of tablet 00:00: mouth 2 [place] 00 (two) Medical times Branch daily. famotidine 2020-0 Yes [id number] 20mg Take 1 [facility] (PEPCID AC) 3-24 tablet by ity of 20 mg 00:00: mouth 2 [place] tablet 00 (two) Medical times Branch daily. phenytoin 2020-0 Yes [id number] 400mg Take 4 U nivers Extended 3-24 capsules ity of (DILANTIN) 00:00: by mouth [place] 100 mg 00 daily. Medical capsule Branch FLUoxetine 2020-0 Yes 40mg Take 1 Unive rs (PROZAC) 40 3-24 capsule by it y of mg capsule 00:00: mouth [place] 00 daily. Medical Branch cholestyram 2020-0 Yes [id number] 2g Take 0.5 [facility] 4 gram 3-24 Packets by ity of powder 00:00: mouth 3 [place] 00 (three) Medical times Branch daily with meals. pantoprazol 2020-0 Yes [id number] 40mg Take 1 [facility] e 40 mg EC 3-24 tablet by ity of tablet 00:00: mouth 2 [place] 00 (two) Medical times Branch daily. famotidine 2020-0 Yes [id number] 20mg Take 1 [facility] (PEPCID AC) 3-24 tablet by ity of 20 mg 00:00: mouth 2 [place] tablet 00 (two) Medical times Branch daily. phenytoin 2020-0 Yes [id number] 400mg Take 4 [facility] Extended 3-24 capsules ity of (DILANTIN) 00:00: by mouth [place] 100 mg 00 daily. Medical capsule Branch FLUoxetine 2020-0 Yes 40mg Take 1 [facility] (PROZAC) 40 3-24 capsule by it y of mg capsule 00:00: mouth [place] 00 daily. Medical Branch cholestyram 2020-0 Yes [id number] 2g Take 0.5 [facility] 4 gram 3-24 Packets by ity of powder 00:00: mouth 00 (three) Medical times Branch daily with meals. pantoprazol 2020-0 Yes [id number] 40mg Take 1 [facility] e 40 mg EC 3-24 tablet by ity of tablet 00:00: mouth 2 [place] 00 (two) Medical times Branch daily. famotidine 2020-0 Yes [id number] 20mg Take 1 [facility] (PEPCID AC) 3-24 tablet by ity of 20 mg 00:00: mouth 2 [place] tablet 00 (two) Medical times Branch daily. phenytoin 2020-0 Yes [id number] 400mg Take 4 [facility] n[facility] Extended 3-24 capsules ity of (DILANTIN) 00:00: by mouth [place] 100 mg 00 daily. Medical capsule Branch FLUoxetine 2020-0 Yes 40mg Take 1 [facility] (PROZAC) 40 3-24 capsule by it y of mg capsule 00:00: mouth 00 daily. Medical Branch cholestyram 2020-0 Yes [id number] 2g Take 0.5 [facility] 4 gram 3-24 Packets by ity of powder 00:00: mouth 3 00 (three) Medical times Branch daily with meals. pantoprazol 2020-0 Yes [id number] 40mg Take 1 [facility] e 40 mg EC 3-24 tablet by ity of tablet 00:00: mouth 2 [place] 00 (two) Medical times Branch daily. famotidine 2020-0 Yes [id number] 20mg Take 1 [facility] (PEPCID AC) 3-24 tablet by ity of 20 mg 00:00: mouth 2 [place] tablet 00 (two) Medical times Branch daily. phenytoin 2020-0 Yes [id number] 400mg Take 4 [facility] Extended 3-24 capsules ity of (DILANTIN) 00:00: by mouth [place] 100 mg 00 daily. Medical capsule Branch FLUoxetine 2020-0 Yes 40mg Take 1 [facility] (PROZAC) 40 3-24 capsule by it y of mg capsule 00:00: mouth [place] 00 daily. Medical Branch cholestyram 2020-0 Yes [id number] 2g Take 0.5 [facility] 4 gram 3-24 Packets by ity of powder 00:00: mouth 3 (three) Medical times Branch daily with meals. pantoprazol 2020-0 Yes [id number] 40mg Take 1 [facility] e 40 mg EC 3-24 tablet by ity of tablet 00:00: mouth 2 [place] (two) Medical times Branch daily. famotidine 2020-0 Yes [id number] 20mg Take 1 [facility] (PEPCID AC) 3-24 tablet by ity of 20 mg 00:00: mouth 2 [place] tablet 00 (two) Medical times Branch daily. phenytoin 2020-0 Yes [id number] 400mg Take 4 [facility] Extended 3-24 capsules ity of (DILANTIN) 00:00: by mouth [place] 100 mg 00 daily. Medical capsule Branch FLUoxetine 2020-0 Yes 40mg Take 1 [facility] (PROZAC) 40 3-24 capsule by it y of mg capsule 00:00: mouth 00 daily. Medical Branch cholestyram 2020-0 Yes [id number] 2g Take 0.5 [facility] 4 gram 3-24 Packets by ity of powder 00:00: mouth 3 (three) Medical times Branch daily with meals. pantoprazol 2020-0 Yes [id number] 40mg Take 1 [facility] e 40 mg EC 3-24 tablet by ity of tablet 00:00: mouth 2 [place] 00 (two) Medical times Branch daily. famotidine 2020-0 Yes [id number] 20mg Take 1 [facility] (PEPCID AC) 3-24 tablet by ity of 20 mg 00:00: mouth 2 [place] tablet 00 (two) Medical times Branch daily. phenytoin 2020-0 Yes [id number] 400mg Take 4 [facility] Extended 3-24 capsules ity of (DILANTIN) 00:00: by mouth [place] 100 mg 00 daily. Medical capsule Branch FLUoxetine 2020-0 Yes 40mg Take 1 [facility] (PROZAC) 40 3-24 capsule by it y of mg capsule 00:00: mouth [place] 00 daily. Medical Branch cholestyram 2020-0 Yes [id number] 2g Take 0.5 [facility] 4 gram 3-24 Packets by ity of powder 00:00: mouth 3 (three) Medical times Branch daily with meals. pantoprazol 2020-0 Yes [id number] 40mg Take 1 [facility] e 40 mg EC 3-24 tablet by ity of tablet 00:00: mouth 2 [place] (two) Medical times Branch daily. famotidine 2020-0 Yes [id number] 20mg Take 1 [facility] (PEPCID AC) 3-24 tablet by ity of 20 mg 00:00: mouth 2 [place] tablet (two) Medical times Branch daily. phenytoin 2020-0 Yes [id number] 400mg Take 4 [facility] Extended 3-24 capsules ity of (DILANTIN) 00:00: by mouth [place] 100 mg 00 daily. Medical capsule Branch FLUoxetine 2020-0 Yes 40mg Take 1 [facility] (PROZAC) 40 3-24 capsule by it y of mg capsule 00:00: mouth [place] 00 daily. Medical Branch cholestyram 2020-0 Yes [id number] 2g Take 0.5 [facility] 4 gram 3-24 Packets by ity of powder 00:00: mouth 3 (three) Medical times Branch daily with meals. pantoprazol 2020-0 Yes [id number] 40mg Take 1 [facility] e 40 mg EC 3-24 tablet by ity of tablet 00:00: mouth 2 [place] 00 (two) Medical times Branch daily. famotidine 2020-0 Yes [id number] 20mg Take 1 [facility] (PEPCID AC) 3-24 tablet by ity of 20 mg 00:00: mouth 2 [place] tablet 00 (two) Medical times Branch daily. phenytoin 2020-0 Yes [id number] 400mg Take 4 [facility] Extended 3-24 capsules ity of (DILANTIN) 00:00: by mouth [place] 100 mg 00 daily. Medical capsule Branch FLUoxetine 2020-0 Yes 40mg Take 1 [facility] (PROZAC) 40 3-24 capsule by it y of mg capsule 00:00: mouth [place] 00 daily. Medical Branch cholestyram 2020-0 Yes [id number] 2g Take 0.5 [facility] 4 gram 3-24 Packets by ity of powder 00:00: mouth 3 [place] 00 (three) Medical times Branch daily with meals. pantoprazol 2020-0 Yes [id number] 40mg Take 1 [facility] e 40 mg EC 3-24 tablet by ity of tablet 00:00: mouth 2 [place] 00 (two) Medical times Branch daily. famotidine 2020-0 Yes [id number] 20mg Take 1 [facility] (PEPCID AC) 3-24 tablet by ity of 20 mg 00:00: mouth 2 [place] tablet 00 (two) Medical times Branch daily. phenytoin 2020-0 Yes [id number] 400mg Take 4 [facility] Extended 3-24 capsules ity of (DILANTIN) 00:00: by mouth [place] 100 mg 00 daily. Medical capsule Branch FLUoxetine 2020-0 Yes 40mg Take 1 [facility] (PROZAC) 40 3-24 capsule by it y of mg capsule 00:00: mouth [place] 00 daily. Medical Branch cholestyram 2020-0 Yes [id number] 2g Take 0.5 [facility] 4 gram 3-24 Packets by ity of powder 00:00: mouth 3 (three) Medical times Branch daily with meals. famotidine 2020-0 Yes [id number] 20mg Take 1 [facility] (PEPCID AC) 3-24 tablet by ity of 20 mg 00:00: mouth 2 [place] tablet 00 (two) Medical times Branch daily. phenytoin 2020-0 Yes [id number] 400mg Take 4 [facility] Extended 3-24 capsules ity of (DILANTIN) 00:00: by mouth [place] 100 mg 00 daily. Medical capsule Branch FLUoxetine 2020-0 Yes 40mg Take 1 [facility] (PROZAC) 40 3-24 capsule by it y of mg capsule 00:00: mouth [place] 00 daily. Medical Branch cholestyram 2020-0 Yes [id number] 2g Take 0.5 [facility] 4 gram 3-24 Packets by ity of powder 00:00: mouth 3 [place] 00 (three) Medical times Branch daily with meals. famotidine 2020-0 Yes [id number] 20mg Take 1 [facility] (PEPCID AC) 3-24 tablet by ity of 20 mg 00:00: mouth 2 [place] tablet 00 (two) Medical times Branch daily. phenytoin 2020-0 Yes [id number] 400mg Take 4 [facility] Extended 3-24 capsules ity of (DILANTIN) 00:00: by mouth [place] 100 mg 00 daily. Medical capsule Branch FLUoxetine 2020-0 Yes 40mg Take 1 [facility] (PROZAC) 40 3-24 capsule by it y of mg capsule 00:00: mouth [place] 00 daily. Medical Branch cholestyram 2020-0 Yes [id number] 2g Take 0.5 [facility] 4 gram 3-24 Packets by ity of powder 00:00: mouth 3 [place] 00 (three) Medical times Branch daily with meals. famotidine 2020-0 Yes [id number] 20mg Take 1 [facility] (PEPCID AC) 3-24 tablet by ity of 20 mg 00:00: mouth 2 [place] tablet 00 (two) Medical times Branch daily. famotidine 2020-0 Yes [id number] 20mg Take 1 [facility] (PEPCID AC) 3-24 tablet by ity of 20 mg 00:00: mouth 2 [place] tablet 00 (two) Medical times Branch daily. famotidine 2020-0 Yes [id number] 20mg Take 1 [facility] (PEPCID AC) 3-24 tablet by ity of 20 mg 00:00: mouth 2 [place] tablet 00 (two) Medical times Branch daily. famotidine 2020-0 Yes [id number] 20mg Take 1 [facility] (PEPCID AC) 3-24 tablet by ity of 20 mg 00:00: mouth 2 [place] tablet 00 (two) Medical times Branch daily. famotidine 2020-0 Yes [id number] 20mg Take 1 [facility] (PEPCID AC) 3-24 tablet by ity of 20 mg 00:00: mouth 2 [place] tablet 00 (two) Medical times Branch daily. famotidine 2020-0 Yes [id number] 20mg Take 1 [facility] (PEPCID AC) 3-24 tablet by ity of 20 mg 00:00: mouth 2 [place] tablet 00 (two) Medical times Branch daily. famotidine 2020-0 Yes [id number] 20mg Take 1 [facility] (PEPCID AC) 3-24 tablet by ity of 20 mg 00:00: mouth 2 [place] tablet 00 (two) Medical times Branch daily. famotidine 2020-0 Yes [id number] 20mg Take 1 [facility] (PEPCID AC) 3-24 tablet by ity of 20 mg 00:00: mouth 2 [place] tablet 00 (two) Medical times Branch daily. famotidine 2020-0 Yes [id number] 20mg Take 1 [facility] (PEPCID AC) 3-24 tablet by ity of 20 mg 00:00: mouth 2 [place] tablet 00 (two) Medical times Branch daily. famotidine 2020-0 Yes [id number] 20mg Take 1 [facility] (PEPCID AC) 3-24 tablet by ity of 20 mg 00:00: mouth 2 [place] tablet 00 (two) Medical times Branch daily. famotidine 2020-0 Yes [id number] 20mg Take 1 [facility] (PEPCID AC) 3-24 tablet by ity of 20 mg 00:00: mouth 2 [place] tablet 00 (two) Medical times Branch daily. famotidine 2020-0 Yes [id number] 20mg Take 1 [facility] (PEPCID AC) 3-24 tablet by ity of 20 mg 00:00: mouth 2 [place] tablet 00 (two) Medical times Branch daily. famotidine 2020-0 Yes [id number] 20mg Take 1 [facility] (PEPCID AC) 3-24 tablet by ity of 20 mg 00:00: mouth 2 [place] tablet 00 (two) Medical times Branch daily. famotidine 2020-0 Yes [id number] 20mg Take 1 [facility] (PEPCID AC) 3-24 tablet by ity of 20 mg 00:00: mouth 2 [place] tablet 00 (two) Medical times Branch daily. famotidine 2020-0 Yes [id number] 20mg Take 1 [facility] (PEPCID AC) 3-24 tablet by ity of 20 mg 00:00: mouth 2 [place] tablet 00 (two) Medical times Branch daily. famotidine 2020-0 Yes [id number] 20mg Take 1 [facility] (PEPCID AC) 3-24 tablet by ity of 20 mg 00:00: mouth 2 [place] tablet 00 (two) Medical times Branch daily. famotidine 2020-0 Yes [id number] 20mg Take 1 [facility] (PEPCID AC) 3-24 tablet by ity of 20 mg 00:00: mouth 2 [place] tablet 00 (two) Medical times Branch daily. famotidine 2020-0 Yes [id number] 20mg Take 1 [facility] (PEPCID AC) 3-24 tablet by ity of 20 mg 00:00: mouth 2 [place] tablet 00 (two) Medical times Branch daily. famotidine 2020-0 Yes [id number] 20mg Take 1 [facility] (PEPCID AC) 3-24 tablet by ity of 20 mg 00:00: mouth 2 [place] tablet 00 (two) Medical times Branch daily. pantoprazol 2020-0 Yes [id number] 40mg Take 1 [facility] e 40 mg EC 3-24 tablet by ity of tablet 00:00: mouth 2 [place] 00 (two) Medical times Branch daily. famotidine 2020-0 Yes [id number] 20mg Take 1 [facility] (PEPCID AC) 3-24 tablet by ity of 20 mg 00:00: mouth 2 [place] tablet 00 (two) Medical times Branch daily. phenytoin 2020-0 Yes [id number] 400mg Take 4 [facility] Extended 3-24 capsules ity of (DILANTIN) 00:00: by mouth [place] 100 mg 00 daily. Medical capsule Branch FLUoxetine 2020-0 Yes 40mg Take 1 [facility] (PROZAC) 40 3-24 capsule by it y of mg capsule 00:00: mouth [place] 00 daily. Medical Branch cholestyram 2020-0 Yes [id number] 2g Take 0.5 [facility] 4 gram 3-24 Packets by ity of powder 00:00: mouth 3 00 (three) Medical times Branch daily with meals. clonazePAM 2020-0 Yes [id number] 1mg Take 1 [facility] 1 mg tablet 3-24 tablet by ity of 00:00: mouth once 00 daily as Medical needed Branch (panic attack). pantoprazol 2020-0 Yes [id number] 40mg Take 1 [facility] e 40 mg EC 3-24 tablet by ity of tablet 00:00: mouth 2 [place] 00 (two) Medical times Branch daily. famotidine 2020-0 Yes [id number] 20mg Take 1 [facility] (PEPCID AC) 3-24 tablet by ity of 20 mg 00:00: mouth 2 [place] tablet 00 (two) Medical times Branch daily. phenytoin 2020-0 2020- No [id number] 400mg Take 4 [facility] Extended 3-24 05-19 capsules ity of (DILANTIN) 00:00: 00:00 by mouth [place] 100 mg 00 :00 daily. Medical capsule Branch FLUoxetine 2019- No 40mg Take 1 [facility] ers (PROZAC) 40 07-07 capsule by i ty of mg capsule 00:00: 00:00 mouth [place] 00 :00 daily. Medical Branch cholestyram 2019- No [id number] 2g Take 0.5 [facility] 4 gram 07-07 Packets by it y of powder 00:00: 00:00 mouth 3 [place] 00 :00 (three) Medical times Branch daily with meals. pantoprazol 2019- No [id number] 40mg Take 1 [facility] e 40 mg EC 07-07 tablet by ity of tablet 00:00: 00:00 mouth 2 [place] 00 :00 (two) Medical times Branch daily. clonazePAM 2019- No [id number] 1mg Take 1 [facility] 1 mg tablet 07-07 tablet by it y of 00:00: 00:00 mouth once [place] 00 :00 daily as Medical needed Branch (panic attack). clonazePAM 2019- No [id number] 1mg Take 1 [facility] 1 mg tablet 07-07 tablet by it y of 00:00: 00:00 mouth 3 [place] 00 :00 (three) Medical times Branch daily. levothyroxi Yes [id number] 150ug Take 1 [facility] ne 150 mcg 3-12 tablet by ity of tablet 00:00: mouth [place] 00 every Medical morning. Branch levothyroxi 0 Yes [id number] 150ug Take 1 [facility] ne 150 mcg 3-12 tablet by ity of tablet 00:00: mouth [place] 00 every Medical morning. Branch levothyroxi 2019-0 Yes [id number] 150ug Take 1 [facility] ne 150 mcg 3-12 tablet by ity of tablet 00:00: mouth [place] 00 every Medical morning. Branch levothyroxi 0 Yes [id number] 150ug Take 1 [facility] ne 150 mcg 3-12 tablet by ity of tablet 00:00: mouth [place] 00 every Medical morning. Branch levothyroxi Yes [id number] 150ug Take 1 [facility] ne 150 mcg 3-12 tablet by ity of tablet 00:00: mouth [place] 00 every Medical morning. Branch levothyroxi 2020-0 Yes [id number] 150ug Take 1 [facility] ne 150 mcg 3-12 tablet by ity of tablet 00:00: mouth [place] 00 every Medical morning. Branch levothyroxi 2020-0 Yes [id number] 150ug Take 1 [facility] ne 150 mcg 3-12 tablet by ity of tablet 00:00: mouth [place] 00 every Medical morning. Branch levothyroxi 2020-0 Yes [id number] 150ug Take 1 [facility] ne 150 mcg 3-12 tablet by ity of tablet 00:00: mouth [place] 00 every Medical morning. Branch levothyroxi 2020-0 Yes [id number] 150ug Take 1 [facility] ne 150 mcg 3-12 tablet by ity of tablet 00:00: mouth [place] 00 every Medical morning. Branch levothyroxi 2020-0 Yes [id number] 150ug Take 1 [facility] ne 150 mcg 3-12 tablet by ity of tablet 00:00: mouth [place] 00 every Medical morning. Branch levothyroxi 2020-0 Yes [id number] 150ug Take 1 [facility] ne 150 mcg 3-12 tablet by ity of tablet 00:00: mouth [place] 00 every Medical morning. Branch levothyroxi 2020-0 Yes [id number] 150ug Take 1 [facility] ne 150 mcg 3-12 tablet by ity of tablet 00:00: mouth [place] 00 every Medical morning. Branch levothyroxi 2020-0 Yes [id number] 150ug Take 1 [facility] ne 150 mcg 3-12 tablet by ity of tablet 00:00: mouth [place] 00 every Medical morning. Branch levothyroxi 2020-0 Yes [id number] 150ug Take 1 [facility] ne 150 mcg 3-12 tablet by ity of tablet 00:00: mouth [place] 00 every Medical morning. Branch levothyroxi 2020-0 Yes [id number] 150ug Take 1 [facility] ne 150 mcg 3-12 tablet by ity of tablet 00:00: mouth [place] 00 every Medical morning. Branch levothyroxi 2020-0 Yes [id number] 150ug Take 1 [facility] ne 150 mcg 3-12 tablet by ity of tablet 00:00: mouth [place] 00 every Medical morning. Branch levothyroxi 2020-0 Yes [id number] 150ug Take 1 [facility] ne 150 mcg 3-12 tablet by ity of tablet 00:00: mouth [place] 00 every Medical morning. Branch levothyroxi 2020-0 Yes [id number] 150ug Take 1 [facility] ne 150 mcg 3-12 tablet by ity of tablet 00:00: mouth [place] 00 every Medical morning. Branch levothyroxi 2020-0 Yes [id number] 150ug Take 1 [facility] ne 150 mcg 3-12 tablet by ity of tablet 00:00: mouth [place] 00 every Medical morning. Branch levothyroxi 2020-0 Yes [id number] 150ug Take 1 [facility] ne 150 mcg 3-12 tablet by ity of tablet 00:00: mouth [place] 00 every Medical morning. Branch levothyroxi 2020-0 Yes [id number] 150ug Take 1 [facility] ne 150 mcg 3-12 tablet by ity of tablet 00:00: mouth [place] 00 every Medical morning. Branch levothyroxi 2020-0 Yes [id number] 150ug Take 1 [facility] ne 150 mcg 3-12 tablet by ity of tablet 00:00: mouth [place] 00 every Medical morning. Branch levothyroxi 2020-0 2020- No [id number] 150ug Take 1 [facility] ne 150 mcg 3-12 04-24 tablet by ity of tablet 00:00: 00:00 mouth [place] 00 :00 every Medical morning. Branch levothyroxi 2020-0 2020- No [id number] 150ug Take 1 [facility] ne 150 mcg 3-12 04-24 tablet by ity of tablet 00:00: 00:00 mouth [place] 00 :00 every Medical morning. Branch oseltamivir 2020-0 Yes [id number] 75mg Take 1 [facility] 75 mg 1-28 capsule by ity of capsule 00:00: mouth 2 (two) Medical times Branch daily. oseltamivir 2020-0 Yes [id number] 75mg Take 1 [facility] 75 mg 1-28 capsule by ity of capsule 00:00: mouth 2 (two) Medical times Branch daily. oseltamivir 2020-0 Yes [id number] 75mg Take 1 [facility] 75 mg 1-28 capsule by ity of capsule 00:00: mouth 2 00 (two) Medical times Branch daily. oseltamivir 2020-0 Yes [id number] 75mg Take 1 [facility] 75 mg 1-28 capsule by ity of capsule 00:00: mouth 2 [place] 00 (two) Medical times Branch daily. oseltamivir 2020-0 Yes [id number] 75mg Take 1 [facility] 75 mg 1-28 capsule by ity of capsule 00:00: mouth 2 (two) Medical times Branch daily. oseltamivir 2020-0 Yes [id number] 75mg Take 1 [facility] 75 mg 1-28 capsule by ity of capsule 00:00: mouth (two) Medical times Branch daily. oseltamivir 2020-0 Yes [id number] 75mg Take 1 [facility] 75 mg 1-28 capsule by ity of capsule 00:00: mouth (two) Medical times Branch daily. oseltamivir 2020-0 Yes [id number] 75mg Take 1 [facility] 75 mg 1-28 capsule by ity of capsule 00:00: mouth (two) Medical times Branch daily. oseltamivir 2020-0 Yes [id number] 75mg Take 1 [facility] 75 mg 1-28 capsule by ity of capsule 00:00: mouth [place] (two) Medical times Branch daily. oseltamivir 2020-0 Yes [id number] 75mg Take 1 [facility] n[facility] 75 mg 1-28 capsule by ity of capsule 00:00: mouth [place] (two) Medical times Branch daily. oseltamivir 2020-0 Yes [id number] 75mg Take 1 [facility] 75 mg 1-28 capsule by ity of capsule 00:00: mouth [place] (two) Medical times Branch daily. oseltamivir 2020-0 Yes [id number] 75mg Take 1 [facility] 75 mg 1-28 capsule by ity of capsule 00:00: mouth [place] (two) Medical times Branch daily. oseltamivir 2020-0 Yes [id number] 75mg Take 1 [facility] 75 mg 1-28 capsule by ity of capsule 00:00: mouth [place] (two) Medical times Branch daily. oseltamivir 2020-0 Yes [id number] 75mg Take 1 [facility] 75 mg 1-28 capsule by ity of capsule 00:00: mouth [place] (two) Medical times Branch daily. oseltamivir 2020-0 Yes [id number] 75mg Take 1 [facility] 75 mg 1-28 capsule by ity of capsule 00:00: mouth [place] (two) Medical times Branch daily. oseltamivir 2020-0 Yes [id number] 75mg Take 1 [facility] 75 mg 1-28 capsule by ity of capsule 00:00: mouth 2 [place] (two) Medical times Branch daily. oseltamivir 2020-0 Yes [id number] 75mg Take 1 [facility] 75 mg 1-28 capsule by ity of capsule 00:00: mouth (two) Medical times Branch daily. oseltamivir 2020-0 Yes [id number] 75mg Take 1 [facility] 75 mg 1-28 capsule by ity of capsule 00:00: mouth (two) Medical times Branch daily. oseltamivir 2020-0 Yes [id number] 75mg Take 1 [facility] 75 mg 1-28 capsule by ity of capsule 00:00: mouth (two) Medical times Branch daily. oseltamivir 2020-0 Yes [id number] 75mg Take 1 [facility] 75 mg 1-28 capsule by ity of capsule 00:00: mouth (two) Medical times Branch daily. oseltamivir 2020-0 Yes [id number] 75mg Take 1 [facility] 75 mg 1-28 capsule by ity of capsule 00:00: mouth (two) Medical times Branch daily. oseltamivir 2020-0 Yes [id number] 75mg Take 1 [facility] 75 mg 1-28 capsule by ity of capsule 00:00: mouth (two) Medical times Branch daily. oseltamivir 2020-0 Yes [id number] 75mg Take 1 [facility] 75 mg 1-28 capsule by ity of capsule 00:00: mouth (two) Medical times Branch daily. oseltamivir 2020-0 Yes [id number] 75mg Take 1 [facility] 75 mg 1-28 capsule by ity of capsule 00:00: mouth (two) Medical times Branch daily. oseltamivir 2020-0 Yes [id number] 75mg Take 1 [facility] 75 mg 1-28 capsule by ity of capsule 00:00: mouth (two) Medical times Branch daily. oseltamivir 2020-0 Yes [id number] 75mg Take 1 [facility] 75 mg 1-28 capsule by ity of capsule 00:00: mouth (two) Medical times Branch daily. oseltamivir 2020-0 Yes [id number] 75mg Take 1 [facility] 75 mg 1-28 capsule by ity of capsule 00:00: mouth (two) Medical times Branch daily. oseltamivir 2020-0 Yes [id number] 75mg Take 1 [facility] 75 mg 1-28 capsule by ity of capsule 00:00: mouth (two) Medical times Branch daily. oseltamivir 2020- No [id number] 75mg Take 1 [facility] 75 mg 05-1319 capsule by ity of capsule 00:00: 00:00 mouth 2 [place] 00 :00 (two) Medical times Branch daily. pantoprazol 2018-04- No [id number] 40mg Take 1 [facility] e 40 mg EC 2-20 03-20 tablet by ity of tablet 00:00: 04:59 mouth [place] 00 :00 daily for Medical 90 days. Branch pantoprazol 2018-04- No [id number] 40mg Take 1 [facility] e 40 mg EC 2-20 03-20 tablet by ity of tablet 00:00: 04:59 mouth [place] 00 :00 daily for Medical 90 days. Branch pantoprazol 2018-04- No [id number] 40mg Take 1 [facility] e 40 mg EC 2-20 -20 tablet by ity of tablet 00:00: 04:59 mouth [place] 00 :00 daily for Medical 90 days. Branch albuterol Yes 2{puff} Inhale 2 [facility] n[facility] 90 5-17 Puffs ity of mcg/actuati 00:00: every 6 [place] on inhaler 00 (six) Medical hours as Branch needed for Wheezing or Shortness of Breath. albuterol Yes 2{puff} Inhale 2 [facility] n[facility] 90 5-17 Puffs ity of mcg/actuati 00:00: every 6 [place] on inhaler 00 (six) Medical hours as Branch needed for Wheezing or Shortness of Breath. albuterol Yes 2{puff} Inhale 2 [facility] n[facility] 90 5-17 Puffs ity of mcg/actuati 00:00: every 6 [place] on inhaler 00 (six) Medical hours as Branch needed for Wheezing or Shortness of Breath. albuterol 2017-0 Yes 2{puff} Inhale 2 [facility] n[facility] 90 5-17 Puffs ity of mcg/actuati 00:00: every 6 [place] on inhaler 00 (six) Medical hours as Branch needed for Wheezing or Shortness of Breath. albuterol Yes 2{puff} Inhale 2 [facility] n[facility] 90 5-17 Puffs ity of mcg/actuati 00:00: every 6 [place] on inhaler 00 (six) Medical hours as Branch needed for Wheezing or Shortness of Breath. levothyroxi 2018-0 Yes 150ug Take 1 [facility] vers ne 150 mcg 5-17 tablet by ity of tablet 00:00: mouth [place] 00 every Medical morning. Branch albuterol 2017-0 Yes 2{puff} Inhale 2 [facility] n[facility] 90 5-17 Puffs ity of mcg/actuati 00:00: every 6 [place] on inhaler 00 (six) Medical hours as Branch needed for Wheezing or Shortness of Breath. phenytoin 2018-0 Yes 100mg Take 1 [facility] rs Extended 5-17 capsule by ity o f 100 mg 00:00: mouth 3 [place] capsule 00 (three) Medical times Branch daily. albuterol 2017-0 Yes 2{puff} Inhale 2 [facility] nivers 90 5-17 Puffs ity of mcg/actuati 00:00: every 6 [place] on inhaler 00 (six) Medical hours as Branch needed for Wheezing or Shortness of Breath. QUEtiapine 2017-0 Yes Take 25 mg U nivers 50 mg 5-17 ( half a ity of tablet 00:00: tablet) in [place] 00 the Medical morning Branch and 150mg (3 tablets) at night albuterol 2017-0 Yes 2{puff} Inhale 2 U nivers 90 5-17 Puffs ity of mcg/actuati 00:00: every 6 [place] on inhaler 00 (six) Medical hours as Branch needed for Wheezing or Shortness of Breath. traZODone 2018-0 Yes 225mg Take 1.5 [facility] vers 150 mg 5-17 tablets by ity of tablet 00:00: mouth at [place] 00 bedtime. Medical Branch albuterol 2017-0 Yes 2{puff} Inhale 2 [facility] nivers 90 5-17 Puffs ity of mcg/actuati 00:00: every 6 [place] on inhaler 00 (six) Medical hours as Branch needed for Wheezing or Shortness of Breath. pantoprazol 2018-0 Yes 40mg Take 1 [facility] ers e 40 mg EC 5-17 tablet by ity of tablet 00:00: mouth [place] 00 daily. Medical Branch clonazePAM 2017-0 Yes [id number] 1 tablet [facility] 1 mg tablet 5-17 with ity of 00:00: breakfast 00 and lunch, Medical and 2 Branch tablet at dinner albuterol 2018-0 Yes 2{puff} Inhale 2 [facility] nivers 90 5-17 Puffs ity of mcg/actuati 00:00: every 6 [place] on inhaler 00 (six) Medical hours as Branch needed for Wheezing or Shortness of Breath. albuterol Yes 2{puff} Inhale 2 [facility] n[facility] 90 5-17 Puffs ity of mcg/actuati 00:00: every 6 [place] on inhaler 00 (six) Medical hours as Branch needed for Wheezing or Shortness of Breath. albuterol Yes 2{puff} Inhale 2 [facility] nivers 90 5-17 Puffs ity of mcg/actuati 00:00: every 6 [place] on inhaler 00 (six) Medical hours as Branch needed for Wheezing or Shortness of Breath. albuterol Yes 2{puff} Inhale 2 [facility] nivers 90 5-17 Puffs ity of mcg/actuati 00:00: every 6 [place] on inhaler 00 (six) Medical hours as Branch needed for Wheezing or Shortness of Breath. levothyroxi 2017- Yes 150ug Take 1 Uni vers ne 150 mcg 5-17 tablet by ity of tablet 00:00: mouth [place] 00 every Medical morning. Branch albuterol Yes 2{puff} Inhale 2 U nivers 90 5-17 Puffs ity of mcg/actuati 00:00: every 6 Dany as on inhaler 00 (six) Medical hours as Branch needed for Wheezing or Shortness of Breath. phenytoin 2017- Yes 100mg Take 1 Unive rs Extended 5-17 capsule by ity o f 100 mg 00:00: mouth 3 [place] capsule 00 (three) Medical times Branch daily. albuterol Yes 2{puff} Inhale 2 U nivers 90 5-17 Puffs ity of mcg/actuati 00:00: every 6 Dany as on inhaler 00 (six) Medical hours as Branch needed for Wheezing or Shortness of Breath. QUEtiapine Yes Take 25 mg U nivers 50 mg 5-17 ( half a ity of tablet 00:00: tablet) in [place] 00 the Medical morning Branch and 150mg (3 tablets) at night albuterol 2017- Yes 2{puff} Inhale 2 U nivers 90 5-17 Puffs ity of mcg/actuati 00:00: every 6 Day[place] as on inhaler 00 (six) Medical hours as Branch needed for Wheezing or Shortness of Breath. traZODone 2018- Yes 225mg Take 1.5 Uni vers 150 mg 5-17 tablets by ity of tablet 00:00: mouth at [place] 00 bedtime. Medical Branch pantoprazol 2017- Yes 40mg Take 1 Univ ers e 40 mg EC 5-17 tablet by ity of tablet 00:00: mouth [place] 00 daily. Medical Branch albuterol Yes 2{puff} Inhale 2 U nivers 90 5-17 Puffs ity of mcg/actuati 00:00: every 6 Dany as on inhaler 00 (six) Medical hours as Branch needed for Wheezing or Shortness of Breath. clonazePAM 2017- Yes [id number] 1 tablet Univers 1 mg tablet 5-17 with ity of 00:00: breakfast 00 and lunch, Medical and 2 Branch tablet at dinner albuterol 2017- Yes 2{puff} Inhale 2 U nivers 90 5-17 Puffs ity of mcg/actuati 00:00: every 6 [place] as on inhaler 00 (six) Medical hours as Branch needed for Wheezing or Shortness of Breath. albuterol Yes 2{puff} Inhale 2 U nivers 90 5-17 Puffs ity of mcg/actuati 00:00: every 6 [place] as on inhaler 00 (six) Medical hours as Branch needed for Wheezing or Shortness of Breath. albuterol Yes 2{puff} Inhale 2 U nivers 90 5-17 Puffs ity of mcg/actuati 00:00: every 6 [place] as on inhaler 00 (six) Medical hours as Branch needed for Wheezing or Shortness of Breath. albuterol 2017-0 Yes 2{puff} Inhale 2 U nivers 90 5-17 Puffs ity of mcg/actuati 00:00: every 6 [place] as on inhaler 00 (six) Medical hours as Branch needed for Wheezing or Shortness of Breath. albuterol 2017- Yes 2{puff} Inhale 2 U nivers 90 5-17 Puffs ity of mcg/actuati 00:00: every 6 [place] as on inhaler 00 (six) Medical hours as Branch needed for Wheezing or Shortness of Breath. levothyroxi 2017- Yes 150ug Take 1 Uni vers ne 150 mcg 5-17 tablet by ity of tablet 00:00: mouth [place] 00 every Medical morning. Branch QUEtiapine Yes Take 25 mg U nivers 50 mg 5-17 ( half a ity of tablet 00:00: tablet) in [place] 00 the Medical morning Branch and 150mg (3 tablets) at night albuterol Yes 2{puff} Inhale 2 U nivers 90 5-17 Puffs ity of mcg/actuati 00:00: every 6 [place] as on inhaler 00 (six) Medical hours as Branch needed for Wheezing or Shortness of Breath. traZODone 2017- Yes 225mg Take 1.5 Uni vers 150 mg 5-17 tablets by ity of tablet 00:00: mouth at [place] 00 bedtime. Medical Branch albuterol Yes 2{puff} Inhale 2 U nivers 90 5-17 Puffs ity of mcg/actuati 00:00: every 6 [place] as on inhaler 00 (six) Medical hours as Branch needed for Wheezing or Shortness of Breath. albuterol Yes 2{puff} Inhale 2 U nivers 90 5-17 Puffs ity of mcg/actuati 00:00: every 6 [place] as on inhaler 00 (six) Medical hours as Branch needed for Wheezing or Shortness of Breath. albuterol Yes 2{puff} Inhale 2 U nivers 90 5-17 Puffs ity of mcg/actuati 00:00: every 6 [place] as on inhaler 00 (six) Medical hours as Branch needed for Wheezing or Shortness of Breath. albuterol Yes 2{puff} Inhale 2 U nivers 90 5-17 Puffs ity of mcg/actuati 00:00: every 6 [place] as on inhaler 00 (six) Medical hours as Branch needed for Wheezing or Shortness of Breath. albuterol 0 Yes 2{puff} Inhale 2 U nivers 90 5-17 Puffs ity of mcg/actuati 00:00: every 6 [place] as on inhaler 00 (six) Medical hours as Branch needed for Wheezing or Shortness of Breath. levothyroxi 2017- Yes 150ug Take 1 Uni vers ne 150 mcg 5-17 tablet by ity of tablet 00:00: mouth [place] 00 every Medical morning. Branch albuterol Yes 2{puff} Inhale 2 U nivers 90 5-17 Puffs ity of mcg/actuati 00:00: every 6 [place] as on inhaler 00 (six) Medical hours as Branch needed for Wheezing or Shortness of Breath. QUEtiapine Yes Take 25 mg U nivers 50 mg 5-17 ( half a ity of tablet 00:00: tablet) in [place] 00 the Medical morning Branch and 150mg (3 tablets) at night traZODone 2017- Yes 225mg Take 1.5 Uni vers 150 mg 5-17 tablets by ity of tablet 00:00: mouth at [place] 00 bedtime. Medical Branch albuterol Yes 2{puff} Inhale 2 U nivers 90 5-17 Puffs ity of mcg/actuati 00:00: every 6 [place] as on inhaler 00 (six) Medical hours as Branch needed for Wheezing or Shortness of Breath. albuterol Yes 2{puff} Inhale 2 U nivers 90 5-17 Puffs ity of mcg/actuati 00:00: every 6 [place] as on inhaler 00 (six) Medical hours as Branch needed for Wheezing or Shortness of Breath. albuterol Yes 2{puff} Inhale 2 U nivers 90 5-17 Puffs ity of mcg/actuati 00:00: every 6 [place] as on inhaler 00 (six) Medical hours as Branch needed for Wheezing or Shortness of Breath. albuterol 2017- Yes 2{puff} Inhale 2 U nivers 90 5-17 Puffs ity of mcg/actuati 00:00: every 6 [place] as on inhaler 00 (six) Medical hours as Branch needed for Wheezing or Shortness of Breath. albuterol 2017-0 Yes 2{puff} Inhale 2 U nivers 90 5-17 Puffs ity of mcg/actuati 00:00: every 6 [place] as on inhaler 00 (six) Medical hours as Branch needed for Wheezing or Shortness of Breath. albuterol 2017- Yes 2{puff} Inhale 2 U nivers 90 5-17 Puffs ity of mcg/actuati 00:00: every 6 [place] as on inhaler 00 (six) Medical hours as Branch needed for Wheezing or Shortness of Breath. QUEtiapine 2017- Yes Take 25 mg U nivers 50 mg 5-17 ( half a ity of tablet 00:00: tablet) in [place] 00 the Medical morning Branch and 150mg (3 tablets) at night traZODone 2017-0 Yes 225mg Take 1.5 Uni vers 150 mg 5-17 tablets by ity of tablet 00:00: mouth at [place] 00 bedtime. Medical Branch albuterol 2017- Yes 2{puff} Inhale 2 U nivers 90 5-17 Puffs ity of mcg/actuati 00:00: every 6 [place] as on inhaler 00 (six) Medical hours as Branch needed for Wheezing or Shortness of Breath. albuterol 2017-0 Yes 2{puff} Inhale 2 U nivers 90 5-17 Puffs ity of mcg/actuati 00:00: every 6 [place] as on inhaler 00 (six) Medical hours as Branch needed for Wheezing or Shortness of Breath. albuterol 2017-0 Yes 2{puff} Inhale 2 U nivers 90 5-17 Puffs ity of mcg/actuati 00:00: every 6 [place] as on inhaler 00 (six) Medical hours as Branch needed for Wheezing or Shortness of Breath. albuterol 2017-0 Yes 2{puff} Inhale 2 U nivers 90 5-17 Puffs ity of mcg/actuati 00:00: every 6 [place] as on inhaler 00 (six) Medical hours as Branch needed for Wheezing or Shortness of Breath. albuterol 2017-0 Yes 2{puff} Inhale 2 U nivers 90 5-17 Puffs ity of mcg/actuati 00:00: every 6 [place] as on inhaler 00 (six) Medical hours as Branch needed for Wheezing or Shortness of Breath. QUEtiapine 2017- Yes Take 25 mg U nivers 50 mg 5-17 ( half a ity of tablet 00:00: tablet) in [place] 00 the Medical morning Branch and 150mg (3 tablets) at night albuterol 2017-0 Yes 2{puff} Inhale 2 U nivers 90 5-17 Puffs ity of mcg/actuati 00:00: every 6 [place] as on inhaler 00 (six) Medical hours as Branch needed for Wheezing or Shortness of Breath. traZODone 2018-0 Yes 225mg Take 1.5 Uni vers 150 mg 5-17 tablets by ity of tablet 00:00: mouth at [place] 00 bedtime. Medical Branch albuterol 2018-0 Yes 2{puff} Inhale 2 U nivers 90 5-17 Puffs ity of mcg/actuati 00:00: every 6 [place] as on inhaler 00 (six) Medical hours as Branch needed for Wheezing or Shortness of Breath. albuterol 2018-0 Yes 2{puff} Inhale 2 U nivers 90 5-17 Puffs ity of mcg/actuati 00:00: every 6 [place] as on inhaler 00 (six) Medical hours as Branch needed for Wheezing or Shortness of Breath. albuterol 2017-0 Yes 2{puff} Inhale 2 U nivers 90 5-17 Puffs ity of mcg/actuati 00:00: every 6 [place] as on inhaler 00 (six) Medical hours as Branch needed for Wheezing or Shortness of Breath. albuterol 2017-0 Yes 2{puff} Inhale 2 U nivers 90 5-17 Puffs ity of mcg/actuati 00:00: every 6 [place] as on inhaler 00 (six) Medical hours as Branch needed for Wheezing or Shortness of Breath. albuterol 2017-0 Yes 2{puff} Inhale 2 U nivers 90 5-17 Puffs ity of mcg/actuati 00:00: every 6 [place] as on inhaler 00 (six) Medical hours as Branch needed for Wheezing or Shortness of Breath. QUEtiapine 2017-0 Yes Take 25 mg U nivers 50 mg 5-17 ( half a ity of tablet 00:00: tablet) in [place] 00 the Medical morning Branch and 150mg (3 tablets) at night traZODone 2018-0 Yes 225mg Take 1.5 Uni vers 150 mg 5-17 tablets by ity of tablet 00:00: mouth at [place] 00 bedtime. Medical Branch albuterol 2018-0 Yes 2{puff} Inhale 2 U nivers 90 5-17 Puffs ity of mcg/actuati 00:00: every 6 [place] as on inhaler 00 (six) Medical hours as Branch needed for Wheezing or Shortness of Breath. albuterol 2018-0 Yes 2{puff} Inhale 2 U nivers 90 5-17 Puffs ity of mcg/actuati 00:00: every 6 [place] as on inhaler 00 (six) Medical hours as Branch needed for Wheezing or Shortness of Breath. albuterol Yes 2{puff} Inhale 2 U nivers 90 5-17 Puffs ity of mcg/actuati 00:00: every 6 [place] as on inhaler 00 (six) Medical hours as Branch needed for Wheezing or Shortness of Breath. QUEtiapine 2019- No Take 25 mg Univers 50 mg 5-17 -24 ( half a ity of tablet 00:00: 00:00 tablet) in [facility] 00 :00 the Medical morning Branch and 150mg (3 tablets) at night traZODone 2019- No 225mg Take 1.5 Un maria isabel 150 mg 5-17 -24 tablets by ity of tablet 00:00: 00:00 mouth at [place] 00 :00 bedtime. Medical Branch levothyroxi 2019- No 150ug Take 1 Un maria isabel ne 150 mcg 5-17 -12 tablet by ity of tablet 00:00: 00:00 mouth [place] 00 :00 every Medical morning. Branch Vital Signs Vital Name Observation Time Observation Value Comments Source Systolic blood 2019-12-02 14:54:00 133 [facility]Hg[facility] 2019-12-02 14:54:00 87 mm[Hg] [facility] Heart rate 2019-12-02 14:54:00 73 /min [facility] Body temperature 2019-12-02 14:12:00 36.56 Rachel [facility] Body height 2019-12-02 14:12:00 165.1 cm [facility] Body weight 2019-12-02 14:12:00 94.167 kg [facility] BMI 2019-12-02 14:12:00 34.55 kg/m2 [facility] Oxygen saturation in 2019-12-02 14:12:00 100 /min room air [facility] Arterial blood by [facility] Pulse oximetry Branch Systolic blood 2019-12-02 14:54:00 133 mm[Hg] [facility] Di[facility] blood 2019-12-02 14:54:00 87 mm[Hg] Unive rsity of pressure [facility] Heart rate 2019-12-02 14:54:00 73 /min Universi ty of [facility] Body temperature 2019-12-02 14:12:00 36.56 Rachel Univ ersity of [facility] Body height 2019-12-02 14:12:00 165.1 cm Universi ty of [facility] Body weight 2019-12-02 14:12:00 94.167 kg Universi ty of [facility] BMI 2019-12-02 14:12:00 34.55 kg/m2 Universi ty [facility] Oxygen saturation in 2019-12-02 14:12:00 100 /min room air University of Arterial blood by [facility] Pulse oximetry Branch BP Systolic 2021-11-25 19:02:00 BP Diastolic 2021-11-25 19:02:00 Weight Measured 2021-11-25 19:02:00 183.80 pounds Height Measured 2021-11-25 19:02:00 65.00 inches Body Temperature 2021-11-25 19:02:00 Heart Rate 2021-11-25 19:02:00 Respiratory Rate 2021-11-25 19:02:00 BP Systolic 2021-03-25 11:17:00 131 mm[Hg] BP Diastolic 2021-03-25 11:17:00 84 mm[Hg] Weight Measured 2021-03-25 11:17:00 183.80 pounds Height Measured 2021-03-25 11:17:00 65.00 inches Body Temperature 2021-03-25 11:17:00 98.30 degrees Heart Rate 2021-03-25 11:17:00 80.00 /min Respiratory Rate 2021-03-25 11:17:00 18.00 /min BP Systolic 2021-03-15 16:18:00 BP Diastolic 2021-03-15 16:18:00 Weight Measured 2021-03-15 16:18:00 200.00 pounds Height Measured 2021-03-15 16:18:00 65.00 inches Body Temperature 2021-03-15 16:18:00 Heart Rate 2021-03-15 16:18:00 Respiratory Rate 2021-03-15 16:18:00 BP Systolic 2021-01-19 09:51:00 BP Diastolic 2021-01-19 09:51:00 Weight Measured 2021-01-19 09:51:00 200.00 pounds Height Measured 2021-01-19 09:51:00 65.00 inches Body Temperature 2021-01-19 09:51:00 Heart Rate 2021-01-19 09:51:00 Respiratory Rate 2021-01-19 09:51:00 BP Systolic 2020-11-05 09:52:00 BP Diastolic 2020-11-05 09:52:00 Weight Measured 2020-11-05 09:52:00 200.00 pounds Height Measured 2020-11-05 09:52:00 65.00 inches Body Temperature 2020-11-05 09:52:00 Heart Rate 2020-11-05 09:52:00 Respiratory Rate 2020-11-05 09:52:00 BP Systolic 2020-09-05 09:10:00 BP Diastolic 2020-09-05 09:10:00 Weight Measured 2020-09-05 09:10:00 200.00 pounds Height Measured 2020-09-05 09:10:00 65.00 inches Body Temperature 2020-09-05 09:10:00 Heart Rate 2020-09-05 09:10:00 Respiratory Rate 2020-09-05 09:10:00 BP Systolic 2020-09-02 13:54:00 BP Diastolic 2020-09-02 13:54:00 Weight Measured 2020-09-02 13:54:00 200.00 pounds Height Measured 2020-09-02 13:54:00 65.00 inches Body Temperature 2020-09-02 13:54:00 Heart Rate 2020-09-02 13:54:00 Respiratory Rate 2020-09-02 13:54:00 Procedures This patient has no known procedures. Plan of Care Planned Activity Planned Date Details Comments Source Goal Plan of Care Note [code = 24730-6] Goal Plan of Care Note [code = 66731-9] Goal Plan of Care Note [code = 39865-3] Goal Plan of Care Note [code = 60322-0] Goal Plan of Care Note [code = 70391-6] Goal Plan of Care Note [code = 07512-8] Goal Plan of Care Note [code = 88009-4] Goal Plan of Care Note [code = 51442-8] Goal Plan of Care Note [code = 35656-6] Goal Plan of Care Note [code = 41487-2] Goal Plan of Care Note [code = 52587-8] Goal Plan of Care Note [code = 38835-0] Goal Plan of Care Note [code = 02681-4] Goal Plan of Care Note [code = 63557-3] Goal Plan of Care Note [code = 52804-6] Goal Plan of Care Note [code = 98435-2] Goal Plan of Care Note [code = 94527-6] Goal Plan of Care Note [code = 14083-3] Goal Plan of Care Note [code = 54339-2] Goal Plan of Care Note [code = 54574-7] Goal Plan of Care Note [code = 75046-2] Goal Plan of Care Note [code = 09123-3] Goal Plan of Care Note [code = 98997-9] Goal Plan of Care Note [code = 81550-2] Goal Plan of Care Note [code = 89389-3] Goal Plan of Care Note [code = 30571-3] Goal Plan of Care Note [code = 47385-2] Goal Plan of Care Note [code = 47039-6] Goal Plan of Care Note [code = 26170-0] Goal Plan of Care Note [code = 83742-0] Goal Plan of Care Note [code = 40932-9] Goal Plan of Care Note [code = 38907-4] Goal Plan of Care Note [code = 23724-2] Goal Plan of Care Note [code = 14701-4] Goal Plan of Care Note [code = 01905-1] Goal Plan of Care Note [code = 12774-4] Goal Plan of Care Note [code = 12212-5] Goal Plan of Care Note [code = 36518-8] Goal Plan of Care Note [code = 66965-6] Goal Plan of Care Note [code = 85642-4] Goal Plan of Care Note [code = 16107-7] Goal Plan of Care Note [code = 37059-9] Goal Plan of Care Note [code = 96086-3] Goal Plan of Care Note [code = 07238-2] Goal Plan of Care Note [code = 42405-2] Goal Plan of Care Note [code = 77586-2] Goal Plan of Care Note [code = 09505-0] Goal Plan of Care Note [code = 27267-4] Goal Plan of Care Note [code = 01109-7] Goal Plan of Care Note [code = 27565-3] Goal Plan of Care Note [code = 01370-1] Encounters Start End Encounter Admission Attending Care Care Encounter Source Date/Time Date/Time Type Type Clinicians Facility Department ID 2021-11-25 2021-11-25 Outpatient [id number] 00:00:00 00:00:00 Visit [id number] 2021-11-08 Outpatient [id number] 00:00:00 00:00:00 Visit [id number] 2021-06-21 2021-06-21 Outpatient R YARIEL [facility] [id number] Q-20 Univers 11:00:00 11:00:00 QI [id number] [facility] 2021-06-21 2021-06-21 Outpatient R YARIEL [facility] [id number] Univers 11:00:00 11:00:00 QI [facility] 2020-07-12 2020-07-12 Outpatient R [facility] [id number] Univers 09:30:00 09:30:00 [id number] [facility] 2020-07-12 2020-07-12 Outpatient R LALA [facility] [id number] Univers 09:30:00 09:30:00 ATTENDING [facility] 2020-07-01 2020-07-01 [facility] 1.2.840.114 [id number] 00:00:00 00:00:00 Outreach [facility] [id number] [facility] 4.2.7.2.686 PAVILLION [id number] 2020-07-01 2020-07-01 Patient Ulises, [facility] 1.2.840.114 [id number] Univers 00:00:00 00:00:00 Outreach Kirk PRIMARY [id number] i ty [place] [id number] [address] 2020-06-30 2020-06-30 Outpatient R [facility] [id number] Univers 10:40:00 10:40:00 [id number] [facility] 2020-06-30 2020-06-30 Outpatient R BELLO, [facility] [id number] Univers 10:40:00 10:40:00 SREEKANTH [facility] 2020-05-06 2020-05-06 Outpatient R NBA, [facility] [id number] Q-20 Univers 11:00:00 11:00:00 JUAN CARLOS [id number] [facility] 2020-05-06 2020-05-06 [facility] [id number] Univers 11:00:00 11:00:00 [facility] 2020-03-09 2020-03-09 [facility] 1.2.840.114 [id number] 00:00:00 00:00:00 Qi M PRIMARY [id number] CARE 4.2.7.2.686 PAVILLION [id number] 2020-03-09 2020-03-09 [facility] 1.2.840.114 [id number] Univers 00:00:00 00:00:00 Qi M PRIMARY [id number] [place] [id number] [address] 2020-01-27 2020-01-27 [facility] 1.2.840.114 [id number] 00:00:00 00:00:00 Hooper M PRIMARY [id number] CARE 4.2.7.2.686 PAVILLION [id number] 2020-01-27 2020-01-27 [facility] 1.2.840.114 [id number] Univers 00:00:00 00:00:00 Qi M PRIMARY [id number] [place] [id number] [address] 2019-12-28 2019-12-28 [facility] 1.2.840.114 [id number] 00:00:00 00:00:00 Lynda PRIMARY [id number] CARE 4.2.7.2.686 PAVILLION [id number] [facility] 2019-12-28 2019-12-28 [facility] 1.2.840.114 [id number] Univers 00:00:00 00:00:00 Lynda PRIMARY [id number] [place] [id number] [address] 2019-12-25 2019-12-25 Outpatient Iss[facility] [id number] Univers 13:30:00 13:30:00 STEFANIA [id number] [facility] 2019-12-25 2019-12-25 Outpatient Issa [facility] [id number] Univers 13:30:00 13:30:00 STEFANIA [facility] 2019-12-24 2019-12-24 [facility] 1.2.840.114 [id number] 00:00:00 00:00:00 Lynda PRIMARY [id number] CARE 4.2.7.2.686 PAVILLION [id number] [facility] 2019-12-24 2019-12-24 [facility] 1.2.840.114 [id number] Univers 00:00:00 00:00:00 Lynda PRIMARY 350.1.13.10 [place] [id number] [address] 2019-12-18 2019-12-18 [facility] [id number] Q-[id number] Univers 08:30:00 08:30:00 QI [id number] [facility] 2019-12-18 2019-12-18 Outpatient Issa HOYOSMark [facility] [id number] Univers 08:30:00 08:30:00 QI [facility] 2019-12-12 2019-12-12 Refill Nba, [facility] 1.2.840.114 [id number] 00:00:00 00:00:00 Juan Carlos J PRIMARY [id number] CARE 4.2.7.2.686 PAVILLION [id number] 388 2019-12-12 2019-12-12 Refill Arango, [facility] 1.2.840.114 [id number] Univers 00:00:00 00:00:00 Juan Carlos J PRIMARY [id number] it y of CARE 4.2.7.2.686 [address] PAVILLION [id number] Md dic[address] 2019-12-10 2019-12-10 Outpatient Issa YARIEL [facility] [id number] Q-[id number] Univers 11:00:00 11:00:00 QI [id number] [facility] 2019-12-10 2019-12-10 Outpatient Issa YARIEL [facility] [id number] Univers 11:00:00 11:00:00 QI [facility] 2019-12-09 2019-12-09 [facility] 1.2.840.114 [id number] 00:00:00 00:00:00 Juan Carlos J PRIMARY [id number] CARE 4.2.7.2.686 PAVILLION [id number] 2019-12-09 2019-12-09 [facility] 1.2.840.114 [id number] 00:00:00 00:00:00 Qi Pelletier PRIMARY 350.1.13.10 CARE 4.2.7.2.686 PAVILLION [id number] 2019-12-09 2019-12-09 Refill Arango, [facility] 1.2.840.114 [id number] Univers 00:00:00 00:00:00 Juan Carlos J PRIMARY 350.1.13.10 [place] [id number] Md dical [address] 2019-12-09 2019-12-09 Refcarlitos [facility] 1.2.840.114 [id number] Univers 00:00:00 00:00:00 Hooper M PRIMARY 350.1.13.10 [place] [id number] [facility] [address] 2019-12-04 2019-12-04 Telephone [facility] 1.2.840.114 [id number] 00:00:00 00:00:00 Lynda PRIMARY 350.1.13.10 CARE 4.2.7.2.686 PAVILLION [id number] [facility] 2019-12-04 2019-12-04 Telephone [facility] 1.2.840.114 [id number] [facility] 00:00:00 00:00:00 Lynda PRIMARY [id number] [place] [id number] [address] 2019-12-03 2019-12-03 Outpatient R [facility] [id number] Univers 08:30:00 08:30:[id number] [place] [address] 2019-12-02 2019-12-02 Office [facility] 1.2.840.114 [id number] 09:06:15 10:45:17 Visit Juan Carlos J PRIMARY 350.1.13.10 CARE 4.2.7.2.686 PAVILLION [id number] [facility] 2019-12-02 2019-12-02 Office [facility] 1.2.840.114 [id number] Univers 09:06:15 10:45:17 Visit Juan Carlos J PRIMARY 350.1.13.10 [place] [id number] [address] 2019-12-02 2019-12-02 Outpatient R [facility] [id number] [facility] 09:30:00 09:30:00 JUAN CARLOS ity [facility] 2019-12-02 2019-12-02 Outpatient R [facility] [id number] Univers 08:40:00 08:40:00 [id number] ity [facility] 2019-12-02 2019-12-02 Telephone [facility] 1.2.840.114 [id number] Univers 00:00:00 00:00:00 Juan Carlos J PRIMARY [id number] [place] [id number] [address] 2019-12-01 2019-12-01 Outpatient R YARIEL, [facility] [id number] Univers 10:00:00 10:00:00 [id number] [place] [facility] 2019-12-01 Outpatient R YARIEL, [facility] [id number] Univers 10:00:00 10:00:00 [facility] 2019-10-15 Outpatient R [facility] [id number] Univers 13:30:00 13:30:00 [facility] 2019-10-15 2019-10-15 Outpatient R UNKNOWN, [facility] [id number] Univers 13:30:00 13:30:00 ATTENDING ity [facility] 2019-10-09 2019-10-09 [facility] [id number] [facility] 00:00:00 00:00:00 Lynda PRIMARY [id number] it y [place] [id number] [id number] [address] 2019-10-08 2019-10-08 Telephone [facility] [id number] [facility] 00:00:00 00:00:00 Lynda PRIMARY [id number] [place] [id number] [id number] [address] 2019-10-06 2019-10-06 [facility]carlitos [facility] [id number] Univers 00:00:00 00:00:00 Qi Pelletier PRIMARY [id number] [id number] [id number] [facility] [address] 2019-09-30 2019-09-30 [place] Issa [place] [facility] [id number] Q-20 Univers 11:00:00 11:00:00 JUAN CARLOS [id number] ity [facility] 2019-09-30 2019-09-[address] [facility] 1.2.840.114 [id number] Univers 09:56:40 10:26:40 ne Visit Qi Pelletier PRIMARY [id number] i [id number] [phone] [address] 2019-09-30 2019-09-30 [facility] [id number] Univers 09:30:00 09:30:00 [facility] [place] [facility] 2019[facility]22 [facility] 1.2.840.114 [id number] Univers 00:00:00 00:00:00 Lynda PRIMARY [id number] it [id number] [id number] [address] 2019-09-02 2019-09-04 [facility] 1.2.840.114 [id number] Univers 07:24:21 09:05:02 ne Visit Lynda PRIMARY [id number] i [id number] [id number] [address] 2019-09-04 2019-09-04 Iam [facility] 1.2.840.114 [id number] Univers 00:00:00 00:00:00 Lynda PRIMARY [id number] it [id number] [id number] [address] 2019-09-02 2019-09-02 [facility]patient [facility] [id number] Q-20 Univers 11:00:00 11:00:00 LYNDA [id number] ity [facility] 2019-09-02 2019-09-02 [facility] [id number] Univers 11:00:00 11:00:00 LYNDA ity [facility] 2019-09-01 2019-09-01 [employer] [facility] 1.2.840.114 [id number] Univers 08:58:21 09:13:21 Visit Juan Carlos Arango [facility] [id number] it[place] of [id number] [phone] [address] 2019-09-01 2019-09-01 Outpatient R [facility] [id number] -[id number] Univers 09:00:00 09:00:00 [id number] ity [facility] 2019-09-01 2019-09-01 [facility] [id number] Univers 09:00:00 09:00:00 JUAN CARLOS [facility] 2019-08-24 2019-08-24 Refill [facility] 1.2.840.114 [id number] Univers 00:00:00 00:00:00 Lynda PRIMARY [id number] it [id number] [id number] [address] 2019-08-11 2019-08-11 Outpatient [facility] [id number] -[id number] Univers 09:30:00 09:30:00 [id number] ity [facility] 2019-08-08 2019-08-08 Outpatient R [facility] [id number] -[id number] Univers 14:20:00 14:20:00 [id number] ity [facility] 2019-08-08 2019-08-08 [facility] [id number] Univers 14:20:00 14:20:00 JV ity [facility] 2019-08-07 2019-08-07 Elpidio [facility] 1.2.840.114 [id number] Univers 00:00:00 00:00:00 Lynda PRIMARY [id number] it [id number] [phone] Md katlyn[address] 2019-08-07 2019-08-07 Telephone [facility] 1.2.152.251 [id number] Univers 00:00:00 00:00:00 Deep PRIMARY [id number] it y [id number] [id number] [address] 2019-08-06 2019-08-06 Refcarlitos [facility] 1.2.840.114 [id number] Univers 00:00:00 00:00:00 Lynda PRIMARY [id number] it y [id number] [id number] [address] 2019-08-05 2019-08-05 Telephone [facility] [id number] Univers 00:00:00 00:00:00 [facility] PRIMARY [id number] it y [id number] [id number] [address] 2019-08-01 2019-08-01 Outpatient R [facility] [id number] -[id number] Univers 15:10:00 15:10:00 [id number] [facility] 2019-08-01 2019-08-01 Outpatient R [facility] [id number] Univers 15:10:00 15:10:00 [facility] [place] [facility]-08-01 2019-08-01 [facility]ici [facility] 1.2.840. 114 [id number] Univers 13:53:58 14:23:58 ne Visit Jocelyne Kaya K PRIMARY 350.1.13. 10 ity [id number] [phone] [address] 2019-08-01 2019-08-01 [facility] 1.2.840.114 [id number] Univers 00:00:00 00:00:00 Lynda PRIMARY [id number] it y [id number] [id number] [address] 2019-08-01 2019-08-01 Telephone [facility] 1.2.840.114 [id number] Univers 00:00:00 00:00:00 Lynda PRIMARY [id number] it y [id number] [phone] Md katlyn[address] 2019-07-28 2019-07-28 [facility] 1.2.840.114 [id number] Univers 00:00:00 00:00:00 Lynda PRIMARY [id number] it y [id number] [phone] [address] 2019-07-21 2019-07-21 [facility] 1.2.840.114 [id number] Univers 00:00:00 00:00:00 Lynda PRIMARY [id number] it y [id number] [id number] [address] 2019-07-18 2019-07-18 [facility] 1.2.840.114 [id number] Univers 00:00:00 00:00:00 Lynda PRIMARY [id number] it y [id number] [phone] [address] 2019-07-17 2019-07-17 [facility] 1.2.840.114 [id number] Univers 00:00:00 00:00:00 Lynda PRIMARY 350.1.13.10 it y [id number] [id number] [address] 2019-07-16 2019-07-16 [facility] 1.2.840.114 [id number] Univers 00:00:00 00:00:00 Lynda PRIMARY 350.1.13.10 it y [id number] [id number] [address] 2019-07-14 2019-07-14 Telephone [facility] 1.2.840.114 [id number] Univers 00:00:00 00:00:00 Lynda PRIMARY 350.1.13.10 it y [id number] [id number] [address] 2019-07-14 2019-07-14 Refill [facility] 1.2.840.114 [id number] Univers 00:00:00 00:00:00 Lynda PRIMARY 350.1.13.10 it y [id number] [id number] [address] 2019-07-08 2019-07-08 Telemedici [facility] 1.2.840.114 [id number] Univers 08:06:45 08:36:45 ne Visit Lynda PRIMARY 350.1.13.10 i ty of [id number] [phone] [address] 2019-07-08 2019-07-08 [facility] [id number] Q-20 Univers 08:30:00 08:30:[address] [facility] [id number] [place] [address] 2019-07-08 2019-07-08 Outpatient [facility] [id number] Univers 08:30:00 08:30:00 [facility] 2019-07-06 2019-07-06 Nurse ROBIN Vogel 1.2.840.114 [id number] Univers 00:00:00 00:00:00 Triage Mariangel Elnea ANTONIOY 350.1.13.10 i ty of HOSPITAL 4.2.7.2.686 Dany as [id number] [address] 2019-07-06 2019-07-06 Telephone [facility] 1.2.840.114 [id number] Univers 00:00:00 00:00:00 Lynda PRIMARY 350.1.13.10 it y [id number] [id number] [address] 2019-06-24 2019-06-24 Refill [facility] 1.2.840.114 [id number] Univers 00:00:00 00:00:00 Lynda PRIMARY 350.1.13.10 it y [id number] [phone] [facility] [address] 2019-05-13 2019-05-13 Telephone Carrington, [facility] 1.2.840.114 [id number] Univers 00:00:00 00:00:00 Lynda PRIMARY 350.1.13.10 it y [id number] [id number] [facility] [address] 2019-05-13 2019-05-13 Telephone [facility] 1.2.201.293 [id number] Univers 00:00:00 00:00:00 Christopher PRIMARY 350.1.13.10 ity [id number] [phone] [facility] [address] 2019-04-04 2019-04-04 Outpatient Iss[facility] [id number] Univers 14:50:00 15:10:33 BRADEN ity of [facility] 2018-12-30 2018-12-30 Telephone [facility] 1.2.650.131 [id number] Univers 00:00:00 00:00:00 Jasson-Monika PRIMARY [id number] ity of [id number] [phone] [facility] [address] 2018-11-25 2018-11-25 [facility] Arturo Rowley 1.2.840.114 [id number] Univers 06:56:56 23:59:00 Encounter Aparna Sarmeinto [facility] [id number] ity [id number] [id number] [facility] [address] 2017-09-05 2017-10-23 Outpatient [facility] [id number] 00:00:00 00:00:00 [facility] 2017-10-18 2017-10-18 Outpatient [facility] [id number] 21:09:01 21:09:01 [facility] Office 2016-04-27 2016-09-27 Outpatient [facility] [id number] 00:00:00 00:00:00 [facility] Results Test Description Test Time Test Comments Results Result Comments Source COMPREHENSIVE METABOLIC PANEL 2020-09-16 00:00:00 Test Item Value Reference Range Interpretation Comme nts GLUCOSE (test code = 2217) 93 MG/DL BUN (test code = 2208) 10 MG/DL CREATININE (test code = 2214) 0.81 MG/DL eGFR AMER. (test code = 39184) 103 ML/MIN/1.73 eGFR NON- AMER. (test code = 59430) 89 ML/MIN/1.73 CALC BUN/CREAT (test code = 2235) 12 RATIO SODIUM (test code = 2231) 140 MEQ/L POTASSIUM (test code = 2228) 4.5 MEQ/L CHLORIDE (test code = 2215) 101 MEQ/L CARBON DIOXIDE (test code = 2206) 27 MEQ/L CALCIUM (test code = 2209) 10.4 MG/DL PROTEIN, TOTAL (test code = 2229) 7.9 G/DL ALBUMIN (test code = 2201) 5.0 G/DL CALC GLOBULIN (test code = 2240) 2.9 G/DL CALC A/G RATIO (test code = 2234) 1.7 RATIO BILIRUBIN, TOTAL (test code = 2207) <0.2 MG/DL ALKALINE PHOSPHATASE (test code = 2204) 104 U/L AST (test code = 2218) 24 U/L ALT (test code = 2219) 22 U/L CBC W/AUTO [id number] 00:00:00 Test Item Value Reference Range Interpretation Comments WBC (test code = 1001) 11.6 K/UL RBC (test code = 1002) 4.41 M/UL HEMOGLOBIN (test code = 1003) 12.9 G/DL HEMATOCRIT (test code = 1004) 38.5 % MCV (test code = 1005) 87.3 fL MCH (test code = 1006) 29.3 PG MCHC (test code = 1007) 33.5 G/DL RDW (test code = 1038) 13.9 % NEUTROPHILS (test code = 1008) 75.7 % LYMPHOCYTES (test code = 1010) 17.0 % MONOCYTES (test code = 1011) 5.4 % EOSINOPHILS (test code = 1012) 1.2 % BASOPHILS (test code = 1013) 0.3 % IMMATURE GRANULOCYTES (test 0.4 % code = 1036) NUCLEATED RBCS (test code = 0.0 /100WBC'S 1065) PLATELET COUNT (test code = 418 K/UL 1015) ABSOLUTE NEUTROPHILS (test code 8.76 K/UL = 1066) ABSOLUTE LYMPHOCYTES (test code 1.97 K/UL = 1067) ABSOLUTE MONOCYTES (test code = 0.63 K/UL 1068) ABSOLUTE EOSINOPHILS (test code 0.14 K/UL = 1040) ABSOLUTE BASOPHILS (test code = 0.04 K/UL 1069) ABS IMMATURE GRANULOCYTES (test 0.05 K/UL code = 1020) ABS NUCLEATED RBCS (test code = 0.00 K/UL 78058) CBC W/AUTO [id number] 00:00:00 Test Item Value Reference Range Interpretation Comments WBC (test code = 1001) 11.6 K/UL RBC (test code = 1002) 4.41 M/UL HEMOGLOBIN (test code = 1003) 12.9 G/DL HEMATOCRIT (test code = 1004) 38.5 % MCV (test code = 1005) 87.3 fL MCH (test code = 1006) 29.3 PG MCHC (test code = 1007) 33.5 G/DL RDW (test code = 1038) 13.9 % NEUTROPHILS (test code = 1008) 75.7 % LYMPHOCYTES (test code = 1010) 17.0 % MONOCYTES (test code = 1011) 5.4 % EOSINOPHILS (test code = 1012) 1.2 % BASOPHILS (test code = 1013) 0.3 % IMMATURE GRANULOCYTES (test 0.4 % code = 1036) NUCLEATED RBCS (test code = 0.0 /100WBC'S 1065) PLATELET COUNT (test code = 418 K/UL 1015) ABSOLUTE NEUTROPHILS (test code 8.76 K/UL = 1066) ABSOLUTE LYMPHOCYTES (test code 1.97 K/UL = 1067) ABSOLUTE MONOCYTES (test code = 0.63 K/UL 1068) ABSOLUTE EOSINOPHILS (test code 0.14 K/UL = 1040) ABSOLUTE BASOPHILS (test code = 0.04 K/UL 1069) ABS IMMATURE GRANULOCYTES (test 0.05 K/UL code = 1020) ABS NUCLEATED RBCS (test code = 0.00 K/UL 64864) LIPID [id number] 00:00:00 Test Item Value Reference Range Interpretation Comments CHOLESTEROL (test code = 2210) 328 MG/DL TRIGLYCERIDES (test code = 2232) 614 MG/DL HDL CHOLESTEROL (test code = 42 MG/DL 2219) CALC LDL CHOL (test code = 2237) (NOTE) MG/DL RISK RATIO LDL/HDL (test code = (NOTE) RATIO 2238) [id number] 00:00:00 Test Item Value Reference Range Interpretation Comments TSH, THIRD GENERATION (test code 4.310 UIU/ML = 2821) [id number] 00:00:00 Test Item Value Reference Range Interpretation Comments TSH, THIRD GENERATION (test code 4.310 UIU/ML = 2821) HEMOGLOBIN [id number] 00:00:00 Test Item Value Reference Range Interpretation Comments HEMOGLOBIN A1c (test code = 48015) 5.4 % HEMOGLOBIN [id number] 00:00:00 Test Item Value Reference Range Interpretation Comments HEMOGLOBIN A1c (test code = 08701) 5.4 % [id number] 00:00:00 Test Item Value Reference Range Interpretation Comments LITHIUM (test code = 2039) 0.63 MEQ/L [id number] 00:00:00 Test Item Value Reference Range Interpretation Comments LITHIUM (test code = 2039) 0.63 MEQ/L COMPREHENSIVE METABOLIC [id number] 00:00:00 Test Item Value Reference Range Interpretation Comments GLUCOSE (test code = 2217) 93 MG/DL BUN (test code = 2208) 10 MG/DL CREATININE (test code = 2214) 0.81 MG/DL eGFR AMER. (test code 103 ML/MIN/1.73 = 39486) eGFR NON- AMER. (test 89 ML/MIN/1.73 code = 71717) CALC BUN/CREAT (test code = 12 RATIO 2235) SODIUM (test code = 2231) 140 MEQ/L POTASSIUM (test code = 2228) 4.5 MEQ/L CHLORIDE (test code = 2215) 101 MEQ/L CARBON DIOXIDE (test code = 27 MEQ/L 6) CALCIUM (test code = 2209) 10.4 MG/DL PROTEIN, TOTAL (test code = 7.9 G/DL 2228) ALBUMIN (test code = 2201) 5.0 G/DL CALC GLOBULIN (test code = 2.9 G/DL 2240) CALC A/G RATIO (test code = 1.7 RATIO 2234) BILIRUBIN, TOTAL (test code = <0.2 MG/DL 2206) ALKALINE PHOSPHATASE (test 104 U/L code = 2204) AST (test code = 2218) 24 U/L ALT (test code = 2219) 22 U/L COMPREHENSIVE METABOLIC [id number] 00:00:00 Test Item Value Reference Range Interpretation Comments GLUCOSE (test code = 2217) 93 MG/DL BUN (test code = 2208) 10 MG/DL CREATININE (test code = 2214) 0.81 MG/DL eGFR AMER. (test code 103 ML/MIN/1.73 = 23523) eGFR NON- AMER. (test 89 ML/MIN/1.73 code = 60925) CALC BUN/CREAT (test code = 12 RATIO 2235) SODIUM (test code = 2231) 140 MEQ/L POTASSIUM (test code = 2228) 4.5 MEQ/L CHLORIDE (test code = 2215) 101 MEQ/L CARBON DIOXIDE (test code = 27 MEQ/L 2205) CALCIUM (test code = 2209) 10.4 MG/DL PROTEIN, TOTAL (test code = 7.9 G/DL 2228) ALBUMIN (test code = 2201) 5.0 G/DL CALC GLOBULIN (test code = 2.9 G/DL 2240) CALC A/G RATIO (test code = 1.7 RATIO 2234) BILIRUBIN, TOTAL (test code = <0.2 MG/DL 2206) ALKALINE PHOSPHATASE (test 104 U/L code = 2204) AST (test code = 2218) 24 U/L ALT (test code = 2219) 22 U/L CBC W/AUTO [id number] 00:00:00 Test Item Value Reference Range Interpretation Comments WBC (test code = 1001) 11.6 K/UL RBC (test code = 1002) 4.41 M/UL HEMOGLOBIN (test code = 1003) 12.9 G/DL HEMATOCRIT (test code = 1004) 38.5 % MCV (test code = 1005) 87.3 fL MCH (test code = 1006) 29.3 PG MCHC (test code = 1007) 33.5 G/DL RDW (test code = 1038) 13.9 % NEUTROPHILS (test code = 1008) 75.7 % LYMPHOCYTES (test code = 1010) 17.0 % MONOCYTES (test code = 1011) 5.4 % EOSINOPHILS (test code = 1012) 1.2 % BASOPHILS (test code = 1013) 0.3 % IMMATURE GRANULOCYTES (test 0.4 % code = 1036) NUCLEATED RBCS (test code = 0.0 /100WBC'S 1065) PLATELET COUNT (test code = 418 K/UL 1015) ABSOLUTE NEUTROPHILS (test code 8.76 K/UL = 1066) ABSOLUTE LYMPHOCYTES (test code 1.97 K/UL = 1067) ABSOLUTE MONOCYTES (test code = 0.63 K/UL 1068) ABSOLUTE EOSINOPHILS (test code 0.14 K/UL = 1040) ABSOLUTE BASOPHILS (test code = 0.04 K/UL 1069) ABS IMMATURE GRANULOCYTES (test 0.05 K/UL code = 1020) ABS NUCLEATED RBCS (test code = 0.00 K/UL 33427) CBC W/AUTO [id number] 00:00:00 Test Item Value Reference Range Interpretation Comments WBC (test code = 1001) 11.6 K/UL RBC (test code = 1002) 4.41 M/UL HEMOGLOBIN (test code = 1003) 12.9 G/DL HEMATOCRIT (test code = 1004) 38.5 % MCV (test code = 1005) 87.3 fL MCH (test code = 1006) 29.3 PG MCHC (test code = 1007) 33.5 G/DL RDW (test code = 1038) 13.9 % NEUTROPHILS (test code = 1008) 75.7 % LYMPHOCYTES (test code = 1010) 17.0 % MONOCYTES (test code = 1011) 5.4 % EOSINOPHILS (test code = 1012) 1.2 % BASOPHILS (test code = 1013) 0.3 % IMMATURE GRANULOCYTES (test 0.4 % code = 1036) NUCLEATED RBCS (test code = 0.0 /100WBC'S 1065) PLATELET COUNT (test code = 418 K/UL 1015) ABSOLUTE NEUTROPHILS (test code 8.76 K/UL = 1066) ABSOLUTE LYMPHOCYTES (test code 1.97 K/UL = 1067) ABSOLUTE MONOCYTES (test code = 0.63 K/UL 1068) ABSOLUTE EOSINOPHILS (test code 0.14 K/UL = 1040) ABSOLUTE BASOPHILS (test code = 0.04 K/UL 1069) ABS IMMATURE GRANULOCYTES (test 0.05 K/UL code = 1020) ABS NUCLEATED RBCS (test code = 0.00 K/UL 23144) CBC W/AUTO [id number] 00:00:00 Test Item Value Reference Range Interpretation Comments WBC (test code = 1001) 11.6 K/UL RBC (test code = 1002) 4.41 M/UL HEMOGLOBIN (test code = 1003) 12.9 G/DL HEMATOCRIT (test code = 1004) 38.5 % MCV (test code = 1005) 87.3 fL MCH (test code = 1006) 29.3 PG MCHC (test code = 1007) 33.5 G/DL RDW (test code = 1038) 13.9 % NEUTROPHILS (test code = 1008) 75.7 % LYMPHOCYTES (test code = 1010) 17.0 % MONOCYTES (test code = 1011) 5.4 % EOSINOPHILS (test code = 1012) 1.2 % BASOPHILS (test code = 1013) 0.3 % IMMATURE GRANULOCYTES (test 0.4 % code = 1036) NUCLEATED RBCS (test code = 0.0 /100WBC'S 1065) PLATELET COUNT (test code = 418 K/UL 1015) ABSOLUTE NEUTROPHILS (test code 8.76 K/UL = 1066) ABSOLUTE LYMPHOCYTES (test code 1.97 K/UL = 1067) ABSOLUTE MONOCYTES (test code = 0.63 K/UL 1068) ABSOLUTE EOSINOPHILS (test code 0.14 K/UL = 1040) ABSOLUTE BASOPHILS (test code = 0.04 K/UL 1069) ABS IMMATURE GRANULOCYTES (test 0.05 K/UL code = 1020) ABS NUCLEATED RBCS (test code = 0.00 K/UL 69929) LIPID [id number] 00:00:00 Test Item Value Reference Range Interpretation Comments CHOLESTEROL (test code = 2210) 328 MG/DL TRIGLYCERIDES (test code = 2232) 614 MG/DL HDL CHOLESTEROL (test code = 42 MG/DL 2220) CALC LDL CHOL (test code = 2237) (NOTE) MG/DL RISK RATIO LDL/HDL (test code = (NOTE) RATIO 2238) LIPID [id number] 00:00:00 Test Item Value Reference Range Interpretation Comments CHOLESTEROL (test code = 2210) 328 MG/DL TRIGLYCERIDES (test code = 2232) 614 MG/DL HDL CHOLESTEROL (test code = 42 MG/DL 2220) CALC LDL CHOL (test code = 2237) (NOTE) MG/DL RISK RATIO LDL/HDL (test code = (NOTE) RATIO 2238) [id number] 00:00:00 Test Item Value Reference Range Interpretation Comments TSH, THIRD GENERATION (test code 4.310 UIU/ML = 2821) [id number] 00:00:00 Test Item Value Reference Range Interpretation Comments TSH, THIRD GENERATION (test code 4.310 UIU/ML = 2821) [id number] 00:00:00 Test Item Value Reference Range Interpretation Comments TSH, THIRD GENERATION (test code 4.310 UIU/ML = 2821) HEMOGLOBIN [id number] 00:00:00 Test Item Value Reference Range Interpretation Comments HEMOGLOBIN A1c (test code = 68842) 5.4 % HEMOGLOBIN [id number] 00:00:00 Test Item Value Reference Range Interpretation Comments HEMOGLOBIN A1c (test code = 74697) 5.4 % HEMOGLOBIN [id number] 00:00:00 Test Item Value Reference Range Interpretation Comments HEMOGLOBIN A1c (test code = 78832) 5.4 % [id number] 00:00:00 Test Item Value Reference Range Interpretation Comments LITHIUM (test code = 2039) 0.63 MEQ/L [id number] 00:00:00 Test Item Value Reference Range Interpretation Comments LITHIUM (test code = 2039) 0.63 MEQ/L [id number] 00:00:00 Test Item Value Reference Range Interpretation Comments LITHIUM (test code = 2039) 0.63 MEQ/L
[2021-11-29] MEDS ORDERED: DIAZEPAM 5 MG TABLET ONE (07:55)
[2021-11-29] MEDS ORDERED: HYDROCODONE/APAP 5/325 MG TAB ONE (07:55)
--- NOTE | 2021-11-29 08:27 | ER ---
Nurse's Notes [facility] Name: Rody Doan Age: 45 yrs Sex: Female : 1975 Arrival Date: 11/29/2021 Time: 07:10 Bed 13 Private MD: Diagnosis: Sciatica, left side;Pain in left leg;Low back pain Presentation: 11/29 07:24 Chief complaint: Patient states: right leg pain since tearing right hamstring last iw March, last night pain got worse. Coronavirus screen: At this time, the client does not indicate any symptoms associated with coronavirus-19. Ebola Screen: Patient negative for fever greater than or equal to 101.5 degrees Fahrenheit, and additional compatible Ebola Virus Disease symptoms Patient denies exposure to infectious person. Patient denies travel to an Ebola-affected area in the 21 days before illness onset. No symptoms or risks identified at this time. Initial Sepsis Screen: Does the patient meet any 2 criteria? No. Patient's initial sepsis screen is negative. Does the patient have a suspected source of infection? No. Patient's initial sepsis screen is negative. Risk Assessment: Do you want to hurt yourself or someone else? Patient reports no desire to harm self or others. Onset of symptoms was November 29, 2021. 07:24 Method Of Arrival: Wheelchair iw 07:24 Acuity: MEGHA 3 iw Triage Assessment: 08:00 General: Appears distressed, Behavior is anxious, crying. Pain: Complains of pain in jg9 right leg Pain currently is 10 out of 10 on a pain scale. 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 - Social history:: Smoking status: Patient reports the use of cigarette tobacco products, smokes one pack cigarettes per day. Screenin:00 Abuse screen: Denies threats or abuse. Denies injuries from another. Has been jg9 threatened or abused. Nutritional screening: No deficits noted. Tuberculosis screening: No symptoms or risk factors identified. Fall Risk None identified. Vital Signs: 07:27 Temp 97.9; Pain 10/10; iw 07:34 BP 131 / 86; Pulse 103; Resp 18; Temp 97.7; Pulse Ox 97% on R/A; Weight 67.13 kg (R); em1 Height 5 ft. 4 in. (162.56 cm); Pain 10/10; 08:26 BP 121 / 95; Pulse 100; Pulse Ox 99% on R/A; Pain 6/10; jg9 07:34 Body Mass Index 25.40 (67.13 kg, 162.56 cm) em1 ED Course: 07:10 Patient arrived in ED. am2 07:12 Duran Westfall DO is Attending Physician. ms3 07:24 Yolette Vasquez, BONIFACIO is Primary Nurse. jg9 07:26 Triage completed. iw 07:26 Arm band placed on. iw 08:15 Patient has correct armband on for positive identification. Bed in low position. Call jg9 light in reach. Door closed. Warm blanket given. 08:25 Trevor Gonzalez DO is Referral Physician. ms3 08:28 No provider procedures requiring assistance completed. jg9 08:29 Patient did not have IV access during this emergency room visit. jg9 Administered Medications: 07:50 Drug: HYDROcodone-acetaminophen 5 mg-325 mg 1 tabs {Note: pain 10/10 right leg, jg9 RASS-0.} Route: PO; 08:29 Follow up: Response: No adverse reaction; Pain is decreased; RASS: Alert and Calm (0) jg9 07:50 Drug: Valium (diazepam) 5 mg {Note: pain 10/10, RASS-0.} Route: PO; jg9 08:28 Follow up: Response: Anxiety unchanged jg9 Medication: 08:28 VIS not applicable for this client. jg9 Outcome: 08:27 Discharge ordered by . ms3 08:29 Discharged to home ambulatory. jg9 08:29 Condition: improved 08:29 Discharge instructions given to patient, Instructed on discharge instructions, follow up and referral plans. Demonstrated understanding of instructions, follow-up care. 08:29 Prescriptions given X 1. jg9 08:41 Patient left the ED. jg9 Signatures: Cara Louis RN RN iw Vernon Regalado em1 Keila Campos am2 Duran Westfall DO DO ms3 Yolette Vasquez, RN RN jg9
--- NOTE | 2021-11-29 08:28 | EDPHYS ---
Physician Documentation [facility] Name: Rody Doan Age: 45 yrs Sex: Female : 1975 Arrival Date: 11/29/2021 Time: 07:10 Bed 13 Private MD: ED Physician Duran Westfall HPI: 11/29 07:39 This 45 yrs old Female presents to ER via Wheelchair with complaints of Leg ms3 Pain. 07:39 The patient presents with pain, that is chronic. The complaints affect the Left leg. ms3 Context: The problem was sustained at an unknown site, resulted from an unknown cause, the patient can fully bear weight, the patient is able to ambulate. Onset: The symptoms/episode began/occurred 1 year(s) ago. Modifying factors: The symptoms are alleviated by nothing. the symptoms are aggravated by nothing. Associated signs and symptoms: Pertinent negatives calf tenderness, nausea, numbness, swelling, tingling, vomiting, weakness. Treatment prior to arrival includes: no previous treatment. Severity of symptoms: At their worst the symptoms were severe, in the emergency department the symptoms are unchanged. 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 - Social history:: Smoking status: Patient reports the use of cigarette tobacco products, smokes one pack cigarettes per day. ROS: 07:39 Constitutional: Negative for fever, and chills. ENT: Negative for injury, pain, and ms3 discharge, Neck: Negative for injury, pain, and swelling, Cardiovascular: Negative for chest pain, and palpitations. Respiratory: Negative for shortness of breath, cough, wheezing, and pleuritic chest pain, Abdomen/GI: Negative for abdominal pain, nausea, vomiting, diarrhea, and constipation. 07:39 MS/extremity: Positive for pain. 07:39 All other systems are negative. Exam: 07:39 Constitutional: This is a well developed, well nourished patient who is awake, alert, ms3 and in no acute distress. Head/Face: Normocephalic, atraumatic. Neck: Trachea midline, no cervical lymphadenopathy. Supple, full range of motion without nuchal rigidity, or vertebral point tenderness. No Meningismus. Chest/axilla: Normal chest wall appearance and motion. Nontender with no deformity. Cardiovascular: Regular rate and rhythm with a normal S1 and S2. No gallops, murmurs, or rubs. Normal PMI, no JVD. No pulse deficits. Respiratory: Lungs have equal breath sounds bilaterally, clear to auscultation and percussion. No rales, rhonchi or wheezes noted. No increased work of breathing, no retractions or nasal flaring. Abdomen/GI: Soft, non-tender, with normal bowel sounds. No distension or tympany. No guarding or rebound. No evidence of tenderness throughout. Skin: Warm, dry with normal turgor. Normal color with no rashes, no lesions, and no evidence of cellulitis. MS/ Extremity: Pulses equal, no cyanosis. Neurovascular intact. Full, normal range of motion. Neuro: Awake and alert, GCS 15, oriented to person, place, time, and situation. Cranial nerves II-XII grossly intact. Motor strength 5/5 in all extremities. Sensory grossly intact. Cerebellar exam normal. Normal gait. Psych: Awake, alert, with orientation to person, place and time. Behavior, mood, and affect are within normal limits. Vital Signs: 07:27 Temp 97.9; Pain 10/10; iw 07:34 BP 131 / 86; Pulse 103; Resp 18; Temp 97.7; Pulse Ox 97% on R/A; Weight 67.13 kg (R); em1 Height 5 ft. 4 in. (162.56 cm); Pain 10/10; 08:26 BP 121 / 95; Pulse 100; Pulse Ox 99% on R/A; Pain 6/10; jg9 07:34 Body Mass Index 25.40 (67.13 kg, 162.56 cm) em1 MDM: 07:31 Patient medically screened. ms3 07:39 Differential diagnosis: sciatica vs DDD vs herniated disc. Counseling: I had a detailed ms3 discussion with the patient and/or guardian regarding: smoking cessation. 08:31 Data reviewed: vital signs, nurses notes, and as a result, I will discharge patient. ms3 Special discussion: I discussed with the patient/guardian in detail that at this point there is no indication for admission to the hospital. It is understood, however, that if the symptoms persist or worsen the patient needs to return immediately for re-evaluation. ED course: Discussed physical exam findings with patient. Patient to follow-up with primary care physician in 2 to 3 days. Patient understands and agrees with plan. All questions were answered. Return precautions discussed include worsening symptoms, or any other concerns. On reevaluation patient is alert and oriented x4, in no apparent distress, nontoxic-appearing, speaking full sentences, ambulatory in emergency department.. Administered Medications: 07:50 Drug: HYDROcodone-acetaminophen 5 mg-325 mg 1 tabs {Note: pain 10/10 right leg, jg9 RASS-0.} Route: PO; 08:29 Follow up: Response: No adverse reaction; Pain is decreased; RASS: Alert and Calm (0) jg9 07:50 Drug: Valium (diazepam) 5 mg {Note: pain 10/10, RASS-0.} Route: PO; jg9 08:28 Follow up: Response: Anxiety unchanged jg9 Disposition Summary: 11/29/21 08:27 Discharge Ordered Location: Home ms3 Condition: Stable ms3 Diagnosis - Sciatica, left side ms3 - Pain in left leg ms3 - Low back pain ms3 Followup: ms3 - With: Trevor Gonzalez DO - When: 2 - 3 days - Reason: Recheck today's complaints Discharge Instructions: - Discharge Summary Sheet ms3 - Sciatica ms3 Forms: - Medication Reconciliation Form ms3 - Thank You Letter ms3 - Antibiotic Education ms3 - Prescription Opioid Use ms3 Signatures: Cara Louis, RN Duran Carrillo DO DO ms3 Yolette Vasquez RN RN jg9
[2021-11-29 09:19] VITALS: TEMP 97.7
[2021-11-29 09:22] VITALS: BP 121/95; O2SAT 99
== END 2021-11-29 08:41 | disposition home or self-care (01) ==
LOC: ER 07:07
DX: M54.32 Sciatica, left side (principal); M54.50 Low back pain, unspecified; F17.210 Nicotine dependence, cigarettes, uncomplicated; I10 Essential (primary) hypertension; Z88.6 Allergy status to analgesic agent

== ENCOUNTER 2022-08-08 23:10 | Emergency (ER) | payer OTHER ==
--- OUTSIDE RECORDS SUMMARY | 2022-08-08 23:33 | XMS REPORT | Continuity of Care Document ---
:1975 Author Organization [facility] t Address [address] [facility]. [address] [place] [address] Care Team Providers Name Role Phone Justo Keyla BENDER Primary Care Physician [phone] LUTHER JOSE Attending Clinician Unavailable BEBA_Oral_Cody Attending Clinician Unavailable Seth Ariza MD Attending Clinician STEFANIA TOBAR Attending Clinician Unavailable Stefania Tobar MD Attending Clinician LISA MURILLO Attending Clinician Unavailable Lisa Lopez Attending Clinician STEFANIA HERNADEZ Attending Clinician Unavailable Stefania Jones DO Attending Clinician ANDERSON ALATORRE Attending Clinician Unavailable Anderson Alatorre MD Attending Clinician Dionisio Freeman MD Attending Clinician Doctor Unassigned, [place] Attending Clinician Unavailable Kristine Ojeda MD Attending Clinician Pcp-Lab Attending Clinician Unavailable Lex Ochoa MD Attending Clinician LEX OCHOA Attending Clinician Unavailable El Scales Attending Clinician Unavailable DOROTEO RUBIO Attending Clinician Unavailable NINA SALGADO Attending Clinician Unavailable NINA SALGADO Attending Clinician Unavailable ILA SALDIVAR Attending Clinician Unavailable UNKNOWN, ATTENDING Attending Clinician Unavailable Kirk Montgomery DO Attending Clinician SREEKANTH MONSALVE Attending Clinician Unavailable JUAN CARLOS ARANGO Attending Clinician Unavailable Ila Pinto Attending Clinician Carrington CARLOS, Lynda Attending Clinician STEFANIA HOPKINS Attending Clinician Unavailable Dorothea BENDER, Juan Carlos Baker Attending Clinician LYNDA SHULTZ Attending Clinician Unavailable [facility] Attending Clinician Unavailable JV RANDHAWA Attending Clinician Unavailable Addison CARLOS, Mick Attending Clinician PAULINA ZAMORA Attending Clinician Unavailable Paulina Zamora MD Attending Clinician Jaspreet VALDOVINOS, Mariangel Parker Attending Clinician Unavailable Emile CARLOS, Gee Attending Clinician BRADEN DEAN Attending Clinician Unavailable Yolande CARLOS, [facility] Halima Attending Clinician Aparna Rowley Attending Clinician BEBA_Mayra Admitting Clinician Unavailable LISA MURILLO Admitting Clinician Unavailable ANDERSON ALATORRE Admitting Clinician Unavailable Payers Payer Name Policy Type Policy Number Effective Date Expiration Date [facility] [id number] [facility] [id number] DH - DUAL (MEDICARE REPLACEMENT HMO) [facility] [id number] 2020 00:00:00 Problems Condition Condition Condition Status Onset Resolution [...] Active Univers ALLERGIE Class ity of [facility] Social History Social Habit Start Date Stop Date Quantity Comments Source History of tobacco Cigarette Smoker [facility] Gender identity [facility] Sexual orientation [facility] Exposure to 2022-07-18 2022-07-28 Not sure [facility] SARS-CoV-2 (event) 00:00:00 08:24:00 [facility] Alcohol intake 2022-07-28 2022-07-28 Current University 00:00:00 00:00:00 non-drinker of [facility] alcohol Branch (finding) History of Social 2022-07-28 2022-07-[address] function 00:00:00 00:00:00 Hospital Tobacco use and 2022-04-25 2022-04-25 Smokeless Universit y of exposure 00:00:00 00:00:00 tobacco non-user [facility] [place] [facility] dical Branch Cigarettes smoked 2022-04-25 2022-04-25 [facility] of current (pack per 00:00:00 00:00:00 [facility] ) - Reported Branch Cigarette 2022-04-25 2022-04-25 University of pack-years 00:00:00 00:00:00 [facility] Sex Ass[birth year] At [birth year] [facility] 00:00:00 00:00:00 [facility] Smoking Status Start Date Stop Date Source Tobacco smoking consumption [facility] [place] [facility] unknown Smokes tobacco daily 2022-04-25 00:00:00 Univers ity of [facility] Medications Ordered Filled Start Stop Current Ordering Indication Dosage Frequency Signature Comments Components Source Medication Medication Date Date Medication? Clinician (SIG) Name Name ondansetron 2022- No 4mg Q8H Take 1 Met hodi ODT -14 04-20 tablet (4 st (ZOFRAN-ODT 00:00: 04:59 mg total) Hospita ) 4 MG 00 :00 by mouth l disintegrat every 8 ing tablet (eight) hours as needed for nausea or vomiting for up to 5 days. acetaminoph 2022- [place] [address] 1{tbl} Q6H Take 1-2 Methodi en-codeine 4-14 04-[address] (TYLENOL 00:00: 04:59 mouth Hospita WITH 00 :00 every 6 l CODEINE #3) (six) 300-30 mg hours as per tablet needed for moderate pain for up to 5 days .acute pain. keTOROlac 2022- No 10mg Q6H Take 1 Metho di (TORadol) 07-28-19 tablet (10 st 10 mg 00:00: 04:59 mg total) Hospit a tablet 00 :00 by mouth l every 6 (six) hours as needed for moderate pain for up to 4 days. FENTanyl PF 2022- No 50ug 50 mcg, Un maria isabel (SUBLIMAZE 07-23 Slow IV ity o f (PF)) 04:30: 03:54 Push, [place] injection 00 :00 ONCE, 1 Medical 50 mcg dose, On Branch 07/22/22 at 2330, NUZHAT ondansetron 2022- No 4mg 4 mg, Slow Univers (ZOFRAN 07-23 IV Push, ity of (PF)) 01:45: 02:03 ONCE, 1 [place] injection 4 00 :00 dose, On Medi selin mg 07/22/22 Branch at 2045, NUZHAT NaCl 0.9% 2022- No 1000mL at 999 Uni vers (NS) bolus 07-23 mL/hr, ity of infusion 01:45: 05:12 1,000 mL, Dany as 1,000 mL 00 :00 IV Medical Infusion, Branch ONCE, 1 dose, On 07/22/22 at 204, NUZHAT USE 1 UNIT No DOSE IN -18 NEBULIZER 00:00: EVERY 4 TO 00 6 HOURS NEEDED. BUDESONIDE/ 0 No FORMOTEROL -18 FUMARATE 00:00: DIHY DRATE 00 160-4.5 MCG/ACT AERO amLODIPine 2022-0 Yes [id number] 5mg Take 5 mg Univers 5 mg tablet 1-10 by mouth ity of 14:05: in the [place] [address] morning. Medical Branch amLODIPine 2022-0 Yes [id number] 5mg Take 5 mg Univers 5 mg tablet 1-10 by mouth ity of 14:05: in the [place] [address] morning. Medical Branch amLODIPine 2022-0 Yes [id number] 5mg Take 5 mg Univers 5 mg tablet 1-10 by mouth ity of 14:05: in the [place] [address] morning. Medical Branch amLODIPine 2022-0 Yes [id number] 5mg Take 5 mg Univers 5 mg tablet 1-10 by mouth ity of 14:05: in the [place] [address] morning. Medical Branch amLODIPine 3-0 Yes [id number] 5mg Take 5 mg Univers 5 mg tablet 1-10 by mouth ity of 14:05: in the [place] [address] morning. Medical Branch amLODIPine 3-0 Yes [id number] 5mg Take 5 mg Univers 5 mg tablet 1-10 by mouth ity of 14:05: in the [place] [address] morning. Medical Branch amLODIPine 3-0 Yes [id number] 5mg Take 5 mg Univers 5 mg tablet 1-10 by mouth ity of 14:05: in the [place] [address] morning. Medical Branch amLODIPine 3-0 Yes [id number] 5mg Take 5 mg Univers 5 mg tablet 1-10 by mouth ity of 14:05: in the [place] [address] morning. Medical Branch amLODIPine 3-0 Yes [id number] 5mg Take 5 mg Univers 5 mg tablet 1-10 by mouth ity of 14:05: in the [place] [address] morning. Medical Branch amLODIPine 3-0 Yes [id number] 5mg Take 5 mg Univers 5 mg tablet 1-10 by mouth ity of 14:05: in the [place] [address] morning. Medical Branch amLODIPine 2022-0 Yes [id number] 5mg Take 5 mg Univers 5 mg tablet 1-10 by mouth ity of 14:05: in the [place] [address] morning. Medical Branch amLODIPine 3-0 Yes [id number] 5mg Take 5 mg Univers 5 mg tablet 1-10 by mouth ity of 14:05: in the [place] [address] morning. Medical Branch amLODIPine 3-0 Yes [id number] 5mg Take 5 mg Univers 5 mg tablet 1-10 by mouth ity of 14:05: in the [place] [address] morning. Medical Branch amLODIPine 3-0 Yes [id number] 5mg Take 5 mg Univers 5 mg tablet 1-10 by mouth ity of 14:05: in the [place] [address] morning. Medical Branch amLODIPine 3-0 Yes [id number] 5mg Take 5 mg Univers 5 mg tablet 1-10 by mouth ity of 14:05: in the [place] [address] morning. Medical Branch amLODIPine 3-0 Yes [id number] 5mg Take 5 mg Univers 5 mg tablet 1-10 by mouth ity of 14:05: in the [place] [address] morning. Medical Branch amLODIPine 3-0 Yes [id number] 5mg Take 5 mg Univers 5 mg tablet 1-10 by mouth ity of 14:05: in the [place] [address] morning. Medical Branch omeprazole 3-0 Yes [id number] 40mg Take 40 mg Univers 40 mg 1-10 by mouth ity of capsule 13:52: in the [place] [address] morning. Medical Branch omeprazole 2023-0 Yes [id number] 40mg Take 40 mg Univers 40 mg 1-10 by mouth ity of capsule 13:52: in the [place] [address] morning. Medical Branch omeprazole 3-0 Yes [id number] 40mg Take 40 mg Univers 40 mg 1-10 by mouth ity of capsule 13:52: in the [place] [address] morning. Medical Branch omeprazole 3-0 Yes [id number] 40mg Take 40 mg Univers 40 mg 1-10 by mouth ity of capsule 13:52: in the [place] [address] morning. Medical Branch omeprazole 3-0 Yes [id number] 40mg Take 40 mg Univers 40 mg 1-10 by mouth ity of capsule 13:52: in the [place] [address] morning. Medical Branch omeprazole 3-0 Yes [id number] 40mg Take 40 mg Univers 40 mg 1-10 by mouth ity of capsule 13:52: in the [place] [address] morning. Medical Branch omeprazole 3-0 Yes [id number] 40mg Take 40 mg Univers 40 mg 1-10 by mouth ity of capsule 13:52: in the [place] [address] morning. Medical Branch omeprazole 3-0 Yes [id number] 40mg Take 40 mg Univers 40 mg 1-10 by mouth ity of capsule 13:52: in the [place] [address] morning. Medical Branch omeprazole 2023-0 Yes [id number] 40mg Take 40 mg Univers 40 mg 1-10 by mouth ity of capsule 13:52: in the [place] [address] morning. Medical Branch omeprazole 2023-0 Yes [id number] 40mg Take 40 mg Univers 40 mg 1-10 by mouth ity of capsule 13:52: in the [place] [address] morning. Medical Branch omeprazole 2023-0 Yes [id number] 40mg Take 40 mg Univers 40 mg 1-10 by mouth ity of capsule 13:52: in the [place] [address] morning. Medical Branch omeprazole 2023-0 Yes [id number] 40mg Take 40 mg Univers 40 mg 1-10 by mouth ity of capsule 13:52: in the [place] [address] morning. Medical Branch omeprazole 2023-0 Yes [id number] 40mg Take 40 mg Univers 40 mg 1-10 by mouth ity of capsule 13:52: in the [place] [address] morning. Medical Branch omeprazole 2023-0 Yes [id number] 40mg Take 40 mg Univers 40 mg 1-10 by mouth ity of capsule 13:52: in the [place] [address] morning. Medical Branch omeprazole 2023-0 Yes [id number] 40mg Take 40 mg Univers 40 mg 1-10 by mouth ity of capsule 13:52: in the [place] [address] morning. Medical Branch omeprazole 2023-0 Yes [id number] 40mg Take 40 mg Univers 40 mg 1-10 by mouth ity of capsule 13:52: in the [place] [address] morning. Medical Branch omeprazole 2023-0 Yes [id number] 40mg Take 40 mg Univers 40 mg 1-10 by mouth ity of capsule 13:52: in the [place] [address] morning. Medical Branch clonazePAM 3-0 Yes [id number] 1mg Take 1 mg Univers 1 mg tablet 1-10 by mouth 3 it y of 13:51: (three) [place] 23 times Medical daily as Branch needed. clonazePAM 2023-0 Yes [id number] 1mg Take 1 mg Univers 1 mg tablet 1-10 by mouth 3 it y of 13:51: (three) [place] 23 times Medical daily as Branch needed. clonazePAM 3-0 Yes [id number] 1mg Take 1 mg Univers 1 mg tablet 1-10 by mouth 3 it y of 13:51: (three) [place] 23 times Medical daily as Branch needed. clonazePAM 2023-0 Yes [id number] 1mg Take 1 mg Univers 1 mg tablet 1-10 by mouth 3 it y of 13:51: (three) [place] 23 times Medical daily as Branch needed. clonazePAM 2023-0 Yes [id number] 1mg Take 1 mg Univers 1 mg tablet 1-10 by mouth 3 it y of 13:51: (three) [place] 23 times Medical daily as Branch needed. clonazePAM 2023-0 Yes [id number] 1mg Take 1 mg Univers 1 mg tablet 1-10 by mouth 3 it y of 13:51: (three) [place] 23 times Medical daily as Branch needed. clonazePAM 2023-0 Yes [id number] 1mg Take 1 mg Univers 1 mg tablet 1-10 by mouth 3 it y of 13:51: (three) [place] 23 times Medical daily as Branch needed. clonazePAM 2023-0 Yes [id number] 1mg Take 1 mg Univers 1 mg tablet 1-10 by mouth 3 it y of 13:51: (three) [place] 23 times Medical daily as Branch needed. clonazePAM 2023-0 Yes [id number] 1mg Take 1 mg Univers 1 mg tablet 1-10 by mouth 3 it y of 13:51: (three) [place] 23 times Medical daily as Branch needed. clonazePAM 2023-0 Yes [id number] 1mg Take 1 mg Univers 1 mg tablet 1-10 by mouth 3 it y of 13:51: (three) [place] 23 times Medical daily as Branch needed. clonazePAM 3-0 Yes [id number] 1mg Take 1 mg Univers 1 mg tablet 1-10 by mouth 3 it y of 13:51: (three) [place] 23 times Medical daily as Branch needed. clonazePAM 3-0 Yes [id number] 1mg Take 1 mg Univers 1 mg tablet 1-10 by mouth 3 it y of 13:51: (three) [place] 23 times Medical daily as Branch needed. clonazePAM 3-0 Yes [id number] 1mg Take 1 mg Univers 1 mg tablet 1-10 by mouth 3 it y of 13:51: (three) [place] 23 times Medical daily as Branch needed. clonazePAM 3-0 Yes [id number] 1mg Take 1 mg Univers 1 mg tablet 1-10 by mouth 3 it y of 13:51: (three) [place] 23 times Medical daily as Branch needed. clonazePAM 3-0 Yes [id number] 1mg Take 1 mg Univers 1 mg tablet 1-10 by mouth 3 it y of 13:51: (three) [place] 23 times Medical daily as Branch needed. clonazePAM 3-0 Yes [id number] 1mg Take 1 mg Univers 1 mg tablet 1-10 by mouth 3 it y of 13:51: (three) [place] 23 times Medical daily as Branch needed. clonazePAM 3-0 Yes [id number] 1mg Take 1 mg Univers 1 mg tablet 1-10 by mouth 3 it y of 13:51: (three) [place] 23 times Medical daily as Branch needed. lithium 3-0 Yes [id number] 150mg Take 0.5 Univers carbonate 1-10 tablets by ity of 300 mg 00:00: mouth in [place] tablet 00 the Medical morning. Branch QUEtiapine 2023-0 Yes [id number] 50mg Take 1 Univers 50 mg 1-10 tablet by ity of tablet 00:00: mouth at [place] 00 bedtime as Medical needed for Branch Insomnia. gabapentin 2023-0 Yes [id number] 600mg Take 2 Univers 300 mg 1-10 9102 capsules ity of capsule 00:00: by mouth [place] 00 in the Medical morning Branch and 2 capsules at noon and 2 capsules in the evening. hydrOXYzine 2023-0 Yes [id number] 25mg Take 1 Univers 25 mg 1-10 tablet by ity of tablet 00:00: mouth [place] 00 every 6 Medical (six) Branch hours as needed for Anxiety. lithium 2023-0 Yes [id number] 150mg Take 0.5 Univers carbonate 1-10 tablets by ity of 300 mg 00:00: mouth in [place] tablet 00 the Medical morning. Branch QUEtiapine 2023-0 Yes [id number] 50mg Take 1 Univers 50 mg 1-10 tablet by ity of tablet 00:00: mouth at [place] 00 bedtime as Medical needed for Branch Insomnia. gabapentin 2023-0 Yes [id number] 600mg Take 2 Univers 300 mg 1-10 9102 capsules ity of capsule 00:00: by mouth [place] 00 in the Medical morning Branch and 2 capsules at noon and 2 capsules in the evening. hydrOXYzine 2023-0 Yes [id number] 25mg Take 1 Univers 25 mg 1-10 tablet by ity of tablet 00:00: mouth [place] 00 every 6 Medical (six) Branch hours as needed for Anxiety. lithium 2023-0 Yes [id number] 150mg Take 0.5 Univers carbonate 1-10 tablets by ity of 300 mg 00:00: mouth in [place] tablet 00 the Medical morning. Branch QUEtiapine 2023-0 Yes [id number] 50mg Take 1 Univers 50 mg 1-10 tablet by ity of tablet 00:00: mouth at [place] 00 bedtime as Medical needed for Branch Insomnia. gabapentin 2023-0 Yes [id number] 600mg Take 2 Univers 300 mg 1-10 9102 capsules ity of capsule 00:00: by mouth [place] 00 in the Medical morning Branch and 2 capsules at noon and 2 capsules in the evening. hydrOXYzine 2023-0 Yes [id number] 25mg Take 1 Univers 25 mg 1-10 tablet by ity of tablet 00:00: mouth [place] 00 every 6 Medical (six) Branch hours as needed for Anxiety. lithium 2023-0 Yes [id number] 150mg Take 0.5 Univers carbonate 1-10 tablets by ity of 300 mg 00:00: mouth in [place] tablet 00 the Medical morning. Branch QUEtiapine 3-0 Yes [id number] 50mg Take 1 Univers 50 mg 1-10 tablet by ity of tablet 00:00: mouth at [place] 00 bedtime as Medical needed for Branch Insomnia. gabapentin 2022-0 Yes [id number] 600mg Take 2 Univers 300 mg 1-10 9102 capsules ity of capsule 00:00: by mouth [place] 00 in the Medical morning Branch and 2 capsules at noon and 2 capsules in the evening. hydrOXYzine 3-0 Yes [id number] 25mg Take 1 Univers 25 mg 1-10 tablet by ity of tablet 00:00: mouth [place] 00 every 6 Medical (six) Branch hours as needed for Anxiety. lithium 2022-0 Yes [id number] 150mg Take 0.5 Univers carbonate 1-10 tablets by ity of 300 mg 00:00: mouth in [place] tablet 00 the Medical morning. Branch QUEtiapine 2022-0 Yes [id number] 50mg Take 1 Univers 50 mg 1-10 tablet by ity of tablet 00:00: mouth at [place] 00 bedtime as Medical needed for Branch Insomnia. gabapentin 2022-0 Yes [id number] 600mg Take 2 Univers 300 mg 1-10 9102 capsules ity of capsule 00:00: by mouth [place] 00 in the Medical morning Branch and 2 capsules at noon and 2 capsules in the evening. hydrOXYzine 2023-0 Yes [id number] 25mg Take 1 Univers 25 mg 1-10 tablet by ity of tablet 00:00: mouth [place] 00 every 6 Medical (six) Branch hours as needed for Anxiety. lithium 3-0 Yes [id number] 150mg Take 0.5 Univers carbonate 1-10 tablets by ity of 300 mg 00:00: mouth in [place] tablet 00 the Medical morning. Branch QUEtiapine 3-0 Yes [id number] 50mg Take 1 Univers 50 mg 1-10 tablet by ity of tablet 00:00: mouth at [place] 00 bedtime as Medical needed for Branch Insomnia. gabapentin 2023-0 Yes [id number] 600mg Take 2 Univers 300 mg 1-10 9102 capsules ity of capsule 00:00: by mouth [place] 00 in the Medical morning Branch and 2 capsules at noon and 2 capsules in the evening. hydrOXYzine 2023-0 Yes [id number] 25mg Take 1 Univers 25 mg 1-10 tablet by ity of tablet 00:00: mouth [place] 00 every 6 Medical (six) Branch hours as needed for Anxiety. lithium 2023-0 Yes [id number] 150mg Take 0.5 Univers carbonate 1-10 tablets by ity of 300 mg 00:00: mouth in [place] tablet 00 the Medical morning. Branch QUEtiapine 3-0 Yes [id number] 50mg Take 1 Univers 50 mg 1-10 tablet by ity of tablet 00:00: mouth at [place] 00 bedtime as Medical needed for Branch Insomnia. gabapentin 3-0 Yes [id number] 600mg Take 2 Univers 300 mg 1-10 9102 capsules ity of capsule 00:00: by mouth [place] 00 in the Medical morning Branch and 2 capsules at noon and 2 capsules in the evening. hydrOXYzine 3-0 Yes [id number] 25mg Take 1 Univers 25 mg 1-10 tablet by ity of tablet 00:00: mouth [place] 00 every 6 Medical (six) Branch hours as needed for Anxiety. lithium 3-0 Yes [id number] 150mg Take 0.5 Univers carbonate 1-10 tablets by ity of 300 mg 00:00: mouth in [place] tablet 00 the Medical morning. Branch QUEtiapine 2022-0 Yes [id number] 50mg Take 1 Univers 50 mg 1-10 tablet by ity of tablet 00:00: mouth at [place] 00 bedtime as Medical needed for Branch Insomnia. gabapentin 3-0 Yes [id number] 600mg Take 2 Univers 300 mg 1-10 9102 capsules ity of capsule 00:00: by mouth [place] 00 in the Medical morning Branch and 2 capsules at noon and 2 capsules in the evening. hydrOXYzine 2023-0 Yes [id number] 25mg Take 1 Univers 25 mg 1-10 tablet by ity of tablet 00:00: mouth [place] 00 every 6 Medical (six) Branch hours as needed for Anxiety. lithium 2023-0 Yes [id number] 150mg Take 0.5 Univers carbonate 1-10 tablets by ity of 300 mg 00:00: mouth in [place] tablet 00 the Medical morning. Branch QUEtiapine 3-0 Yes [id number] 50mg Take 1 Univers 50 mg 1-10 tablet by ity of tablet 00:00: mouth at [place] 00 bedtime as Medical needed for Branch Insomnia. gabapentin 2023-0 Yes [id number] 600mg Take 2 Univers 300 mg 1-10 9102 capsules ity of capsule 00:00: by mouth [place] 00 in the Medical morning Branch and 2 capsules at noon and 2 capsules in the evening. hydrOXYzine 2023-0 Yes [id number] 25mg Take 1 Univers 25 mg 1-10 tablet by ity of tablet 00:00: mouth [place] 00 every 6 Medical (six) Branch hours as needed for Anxiety. lithium 2023-0 Yes [id number] 150mg Take 0.5 Univers carbonate 1-10 tablets by ity of 300 mg 00:00: mouth in [place] tablet 00 the Medical morning. Branch QUEtiapine 2023-0 Yes [id number] 50mg Take 1 Univers 50 mg 1-10 tablet by ity of tablet 00:00: mouth at [place] 00 bedtime as Medical needed for Branch Insomnia. gabapentin 2023-0 Yes [id number] 600mg Take 2 Univers 300 mg 1-10 9102 capsules ity of capsule 00:00: by mouth [place] 00 in the Medical morning Branch and 2 capsules at noon and 2 capsules in the evening. hydrOXYzine 2023-0 Yes [id number] 25mg Take 1 Univers 25 mg 1-10 tablet by ity of tablet 00:00: mouth [place] 00 every 6 Medical (six) Branch hours as needed for Anxiety. lithium 2023-0 Yes [id number] 150mg Take 0.5 Univers carbonate 1-10 tablets by ity of 300 mg 00:00: mouth in [place] tablet 00 the Medical morning. Branch QUEtiapine 2023-0 Yes [id number] 50mg Take 1 Univers 50 mg 1-10 tablet by ity of tablet 00:00: mouth at [place] 00 bedtime as Medical needed for Branch Insomnia. gabapentin 2023-0 Yes [id number] 600mg Take 2 Univers 300 mg 1-10 9102 capsules ity of capsule 00:00: by mouth [place] 00 in the Medical morning Branch and 2 capsules at noon and 2 capsules in the evening. hydrOXYzine 2023-0 Yes [id number] 25mg Take 1 Univers 25 mg 1-10 tablet by ity of tablet 00:00: mouth [place] 00 every 6 Medical (six) Branch hours as needed for Anxiety. lithium 2023-0 Yes [id number] 150mg Take 0.5 Univers carbonate 1-10 tablets by ity of 300 mg 00:00: mouth in [place] tablet 00 the Medical morning. Branch QUEtiapine 3-0 Yes [id number] 50mg Take 1 Univers 50 mg 1-10 tablet by ity of tablet 00:00: mouth at [place] 00 bedtime as Medical needed for Branch Insomnia. gabapentin 2023-0 Yes [id number] 600mg Take 2 Univers 300 mg 1-10 9102 capsules ity of capsule 00:00: by mouth [place] 00 in the Medical morning Branch and 2 capsules at noon and 2 capsules in the evening. hydrOXYzine 2023-0 Yes [id number] 25mg Take 1 Univers 25 mg 1-10 tablet by ity of tablet 00:00: mouth [place] 00 every 6 Medical (six) Branch hours as needed for Anxiety. lithium 3-0 Yes [id number] 150mg Take 0.5 Univers carbonate 1-10 tablets by ity of 300 mg 00:00: mouth in [place] tablet 00 the Medical morning. Branch QUEtiapine 2022-0 Yes [id number] 50mg Take 1 Univers 50 mg 1-10 tablet by ity of tablet 00:00: mouth at [place] 00 bedtime as Medical needed for Branch Insomnia. gabapentin 3-0 Yes [id number] 600mg Take 2 Univers 300 mg 1-10 9102 capsules ity of capsule 00:00: by mouth [place] 00 in the Medical morning Branch and 2 capsules at noon and 2 capsules in the evening. hydrOXYzine 2023-0 Yes [id number] 25mg Take 1 Univers 25 mg 1-10 tablet by ity of tablet 00:00: mouth [place] 00 every 6 Medical (six) Branch hours as needed for Anxiety. lithium 2023-0 Yes [id number] 150mg Take 0.5 Univers carbonate 1-10 tablets by ity of 300 mg 00:00: mouth in [place] tablet 00 the Medical morning. Branch QUEtiapine 2023-0 Yes [id number] 50mg Take 1 Univers 50 mg 1-10 tablet by ity of tablet 00:00: mouth at [place] 00 bedtime as Medical needed for Branch Insomnia. gabapentin 2023-0 Yes [id number] 600mg Take 2 Univers 300 mg 1-10 9102 capsules ity of capsule 00:00: by mouth [place] 00 in the Medical morning Branch and 2 capsules at noon and 2 capsules in the evening. hydrOXYzine 2023-0 Yes [id number] 25mg Take 1 Univers 25 mg 1-10 tablet by ity of tablet 00:00: mouth [place] 00 every 6 Medical (six) Branch hours as needed for Anxiety. lithium 2023-0 Yes [id number] 150mg Take 0.5 Univers carbonate 1-10 tablets by ity of 300 mg 00:00: mouth in [place] tablet 00 the Medical morning. Branch QUEtiapine 3-0 Yes [id number] 50mg Take 1 Univers 50 mg 1-10 tablet by ity of tablet 00:00: mouth at [place] 00 bedtime as Medical needed for Branch Insomnia. gabapentin 2023-0 Yes [id number] 600mg Take 2 Univers 300 mg 1-10 9102 capsules ity of capsule 00:00: by mouth [place] 00 in the Medical morning Branch and 2 capsules at noon and 2 capsules in the evening. hydrOXYzine 2023-0 Yes [id number] 25mg Take 1 Univers 25 mg 1-10 tablet by ity of tablet 00:00: mouth [place] 00 every 6 Medical (six) Branch hours as needed for Anxiety. lithium 3-0 Yes [id number] 150mg Take 0.5 Univers carbonate 1-10 tablets by ity of 300 mg 00:00: mouth in [place] tablet 00 the Medical morning. Branch QUEtiapine 3-0 Yes [id number] 50mg Take 1 Univers 50 mg 1-10 tablet by ity of tablet 00:00: mouth at [place] 00 bedtime as Medical needed for Branch Insomnia. gabapentin 2023-0 Yes [id number] 600mg Take 2 Univers 300 mg 1-10 9102 capsules ity of capsule 00:00: by mouth [place] 00 in the Medical morning Branch and 2 capsules at noon and 2 capsules in the evening. hydrOXYzine 2023-0 Yes [id number] 25mg Take 1 Univers 25 mg 1-10 tablet by ity of tablet 00:00: mouth [place] 00 every 6 Medical (six) Branch hours as needed for Anxiety. lithium 2023-0 Yes [id number] 150mg Take 0.5 [facility] carbonate 1-10 tablets by ity of 300 mg 00:00: mouth in [place] tablet 00 the Medical morning. Branch QUEtiapine 2023-0 Yes [id number] 50mg Take 1 [facility] 50 mg 1-10 tablet by ity of tablet 00:00: mouth at [place] 00 bedtime as Medical needed for Branch Insomnia. gabapentin 2022-0 Yes [id number] 600mg Take 2 [facility] 300 mg 04-25 9102 capsules ity of capsule 00:00: by mouth [place] 00 in the Medical morning Branch and 2 capsules at noon and 2 capsules in the evening. hydrOXYzine 2022-0 Yes [id number] 25mg Take 1 [facility] 25 mg 1-10 tablet by ity of tablet 00:00: mouth [place] 00 every 6 Medical (six) Branch hours as needed for Anxiety. methocarbam 2022- No [id number] 750mg Take 1 [facility] oL 750 mg 04-25 9102 tablet by ity of tablet 00:00: 05:59 mouth 4 [place] 00 :00 (four) Medical times Branch daily for 30 days. methocarbam 2022- No [id number] 750mg Take 1 [facility] oL 750 mg 04-25 9102 tablet by ity of tablet 00:00: 05:59 mouth 4 [place] 00 :[address] ([facility]) Medical times Branch daily for 30 days. methocarbam 2022- No [id number] 750mg Take 1 [facility] oL 750 mg 04-25 9102 tablet by ity of tablet 00:00: 05:59 mouth 4 [place] 00 :[address]) Medical times Branch daily for 30 days. methocarbam 0 2022- No [id number] 750mg Take 1 [facility] oL 750 mg 04-25 9102 tablet by ity of tablet 00:00: 05:59 mouth 4 [place] 00 :[address] [facility]) Medical times Branch daily for 30 days. methocarbam 0 2022- No [id number] 750mg Take 1 [facility] oL 750 mg 04-25 9102 tablet by ity of tablet 00:00: 05:59 mouth 4 [place] 00 :[address] [facility]) Medical times Branch daily for 30 days. methocarbam 2022-0 2022- No [id number] 750mg Take 1 [facility] oL 750 mg 04-25 9102 tablet by ity of tablet 00:00: 05:59 mouth 4 [place] 00 :00 (four) Medical times Branch daily for 30 days. methocarbam 2022- No [id number] 750mg Take 1 [facility] oL 750 mg 04-25 9102 tablet by ity of tablet 00:00: 05:59 mouth 4 [place] 00 :00 (four) Medical times Branch daily for 30 days. methocarbam 2022- No [id number] 750mg Take 1 [facility] oL 750 mg 04-25 9102 tablet by ity of tablet 00:00: 05:59 mouth 4 [place] 00 :00 (four) Medical times [place] daily for 30 days. MONTELUKAST 2021-04 No 10 SODIUM 10 2-22 MG TABS 00:00: 00 BUSPIRONE 2021-04 No HCL 15 MG 2-21 TABS 00:00: 00 TAKE 2021-04 No TABLET 2-14 EVERY 4 00:00: HOURS 00 NEEDED. TAKE 5 ML 2021-04 No EVERY 4 TO 2-14 6 HOURS 00:00: NEEDED. 00 INHALE 1 TO 2021-04 No 2 PUFFS 2-14 EVERY 4 TO 00:00: 6 HOURS 00 NEEDED. USE 2 2021-04 No SPRAYS IN 2-14 EACH 00:00: NOSTRIL 00 ONCE DAILY TAKE 2021-04 No CAPSULE 3 2-14 TIMES DAILY 00:00: NEEDED. 00 TAKE 2021-04 No CAPSULE BY 2-14 MOUTH ONCE 00:00: DAILY 00 GABAPENTIN 2021-04 No 300 MG CAPS 2-14 00:00: 00 LITHIUM 2021-04 No CARBONATE 2-14 300 MG CAPS 00:00: 00 QUETIAPINE 2021-04 No FUMARATE 2-14 100 MG TABS 00:00: 00 NAPROXEN 2021-04 No 500 500 MG TABS 2-14 00:00: 00 FLUTICASONE 2021-04 No PROPIONATE 2-14 50 MCG/ACT 00:00: SUSP 00 CYCLOBENZAP 2021-04 No RINE 2-14 HYDROCHLORI 00:00: DE 10 MG 00 TABS METHOCARBAM 2021-04 No OL 750 MG 2-14 TABS 00:00: 00 TAKE 2021-04 No 50 TABLET BY 2-14 MOUTH FOUR 00:00: TIMES DAILY 00 Dose 2021- No Unknown 2-14 00:00: 00 Dose 2021-04 No Unknown 2-14 00:00: 00 PREDNISONE 2021-04 No 10 20 MG TABS 2-14 00:00: 00 TAKE 1 2021-04 No TABLET BY 2-14 MOUTH EVERY 00:00: DAY 00 LITHIUM 2021-04 No CARBONATE 2-14 300 MG TABS 00:00: 00 PROMETHAZIN 2021-04 No E 2-14 HYDROCHLORI 00:00: DE 25 MG 00 TABS TAKE 1 TAB 2021-04 No DAILY AT 6 2-14 PM FOR MOOD 00:00: 00 FLUOXETINE 2021-04 No HYDROCHLORI 2-14 DE 60 MG 00:00: TABS 00 FLUOXETINE 2021-04 No HCL 20 MG 2-14 CAPS 00:00: 00 Dose 2021-04 No Unknown 2-14 00:00: 00 Dose 2021-04 No Unknown 2-14 00:00: 00 Dose 2021-04 No Unknown 2-14 00:00: 00 Dose 2021-04 No Unknown 2-14 00:00: 00 Dose 2021-04 No Unknown 2-14 00:00: 00 HYDROXYZINE 2021-04 No PAMOATE 50 2-14 MG CAPS 00:00: 00 BENZONATATE 2021-04 No 100 MG CAPS 2-14 00:00: 00 TAKE 1 2021-04 No TABLET BY 2-14 MOUTH EVERY 00:00: 8 HOURS 00 NEEDED Dose 2021-04 No Unknown 2-14 00:00: 00 TAKE 04/17 No TABLET BY 2-14 MOUTH EVERY 00:00: DAY 00 Dose 2021-04 No Unknown 2-14 00:00: 00 Dose 2021-04 No Unknown 2-14 00:00: 00 Dose 2021-04 No Unknown 2-14 00:00: 00 TAKE 1 2021-04 No 750 TABLET BY 2-14 MOUTH 00:00: NIGHTLY 00 Dose 2021-04 No Unknown 2-14 00:00: 00 Dose 2021-04 No Unknown 2-14 00:00: 00 FLUOXETINE 2021-04 No 40 HYDROCHLORI 2-14 DE 40 MG 00:00: CAPS 00 DIAZEPAM 5 2021-04 No 750 MG TABS 2-14 00:00: 00 CELECOXIB 2021-04 No 750 400 MG CAPS 2-14 00:00: 00 Dose 2021-04 No Unknown 2-14 00:00: 00 Dose 2021-04 No Unknown 2-14 00:00: 00 GABAPENTIN 2022-1 No 800 MG TABS 2-14 00:00: 00 Dose 2021-04 No Unknown 2-14 00:00: 00 Dose 2021-04 No Unknown 2-14 00:00: 00 Dose 2021-04 No Unknown 2-14 00:00: 00 ACETAMINOPH 2021-04 No EN/CODEINE 2-14 300-30 MG 00:00: TABS 00 Dose 2021-04 No Unknown 2-14 00:00: 00 HYDROCODONE 2021-04 No BITARTRATE/ 2-14 ACETAMINOPH 00:00: E N 5-325 00 MG TABS TAKE 2021-04 No CAPSULE BY 2-14 MOUTH EVERY 00:00: DAY 00 SYMBICORT 2021-04 No 160-4.5 2-14 MCG/ACT 00:00: AERO 00 QUETIAPINE 2021-04 No FUMARATE 50 2-14 MG TABS 00:00: 00 DOCUSATE 2021-04 No SODIUM 100 2-14 MG CAPS 00:00: 00 TAKE 2021-04 No TABLET BY 2-14 MOUTH EVERY 00:00: DAY IN THE 00 MORNING TAKE 3 2021-04 No TABLETS 2-14 DAILY FOR 5 00:00: DAYS 2 00 TABLETS DAILY FOR 5 DAYS,THEN 1 TABLET DAILY FOR 5 DAYS. TAKE 2021-04 No TABLET BY 2-14 MOUTH TWICE 00:00: A DAY TAKE 00 30 MINUTES BEFORE BREAKFAST AND DINNER ADDERALL XR 2021-04 No 20 MG CP24 2-14 00:00: 00 Dose 2021-04 No Unknown 2-14 00:00: 00 INHALE 2 2021-04 No PUFFS TWICE 2-14 A DAY 00:00: 00 BROMPHEN/PS 2021-04 No EUDOEPHEDRI 2-14 NE 00:00: HCL/DEXTRO 00 METHORPHAN HBR 30-2-10 MG/5ML SYRP INHALE 2 2021-04 No PUFFS BY 2-14 MOUTH EVERY 00:00: 4 HOURS 00 NEEDED FOR SHORTNESS OF BREATH/WHEE ZING VYVANSE 30 2021-04 No MG CAPS 2-14 00:00: 00 NALTREXONE 2021-04 No HCL 50 MG 2-14 TABS 00:00: 00 TAKE 2021-04 No TABLET BY 2-14 MOUTH EVERY 00:00: 12 HOURS 00 TAKE 1 2021-04 No CAPSULE BY 2-14 MOUTH EVERY 00:00: 8 HOURS 00 NEEDED DISSOLVE 1 2021-04 No CAPFUL IN 2-14 4-8 OZ OF 00:00: LIQUID AND 00 DRINK BY MOUTH EVERY DAY (HOLD FOR LOOSE STOOL) CYCLOBENZAP 2021-04 No 5 RINE 2-14 HYDROCHLORI 00:00: DE 5 MG 00 TABS Dose 2021-04 No 1 Unknown 2-14 00:00: 00 TAKE 2021-04 No CAPSULE BY 2-14 MOUTH TWICE 00:00: A DAY 00 TAKE 2021-04 No TABLET BY 2-14 MOUTH 3 00:00: TIMES A DAY 00 WITH FOOD Dose 2021-04 No Unknown 2-14 00:00: 00 SPRAY 2 2021-04 No SPRAYS INTO 2-14 EACH 00:00: NOSTRIL 00 EVERY DAY TAKE 2021-04 No TABLET BY 2-14 MOUTH TWICE 00:00: DAILY 00 TAKE 2021-04 No TABLET BY 2-14 MOUTH EVERY 00:00: DAY IN THE 00 MORNING TAKE 2021-04 No TABLET BY 2-14 MOUTH THREE 00:00: TIMES A DAY 00 KETOROLAC 2021-04 No 10 TROMETHAMIN 2-14 E 10 MG 00:00: TABS 00 INHALE THE 2021-04 No 25 CONTENTS OF 2-14 1 UNIT DOSE 00:00: BY 00 NEBULIZATIO N ROUTE EVERY 4-6 HOURS NEEDED DULOXETINE 2021-04 No 30 HCL 30 MG 2-14 CPEP 00:00: 00 TAKE 2021-04 No 40 CAPSULE BY 2-14 MOUTH EVERY 00:00: DAY 00 TAKE 2021-04 No 25 TABLET BY 2-14 MOUTH EVERY 00:00: 4 HOURS FOR 00 10 DAYS BENZTROPINE 2021-04 No 1 MESYLATE 1 2-14 MG TABS 00:00: 00 TAKE 2021-04 No TABLET BY 2-14 MOUTH 45 00:00: MINUTES 00 BEFORE PROCEDURE TAKE 2021-04 No 40 CAPSULE BY 2-14 MOUTH TWICE 00:00: DAILY 00 TAKE 5 ML 2021-04 No BY MOUTH 2-14 EVERY 4 TO 00:00: 6 HOURS 00 NEEDED TAKE 2021-04 No TABLET BY 2-14 MOUTH THREE 00:00: TIMES DAILY 00 Dose 2021-04 No Unknown 2 00:00: 00 AMPHETAMINE 2021-04 No 30 /DEXTROAMPH 2-01 ETAMINE 30 00:00: MG TABS 00 Dose 2021-04 No Unknown 2- 00:00: 00 Dose 2021-04 No Unknown 2- 00:00: 00 AMPHETAMINE 2021-04 No 30 /DEXTROAMPH 2-01 ETAMINE 30 00:00: MG TABS 00 TAKE 1 2021-04 No TABLET BY 2- MOUTH THREE 00:00: TIMES A DAY 00 ETODOLAC 2021-04 No 400 MG TABS 1- 00:00: 00 ETODOLAC 2021-04 No 400 MG TABS 1-23 00:00: 00 Dose 2021-04 No Unknown 1-15 00:00: 00 Dose 2021-04 No 30 Unknown 1- 00:00: 00 LEVOTHYROXI 2021-04 No NE SODIUM 1-03 150 MCG 00:00: TABS 00 LEVOTHYROXI 2021-04 No NE SODIUM 1-03 150 MCG 00:00: TABS 00 amphetamine 2021-04 Yes [id number] 30mg Take 30 mg Univers -dextroamph 0-20 by mouth ity of etamine 30 00:00: in the [place] mg 24 hr 00 morning Medical capsule and 30 mg Branch in the evening. amphetamine 2021-04 Yes [id number] 30mg Take 30 mg Univers -dextroamph 0-20 by mouth ity of etamine 30 00:00: in the [place] mg 24 hr 00 morning Medical capsule and 30 mg Branch in the evening. amphetamine 2021-04 Yes [id number] 30mg Take 30 mg Univers -dextroamph 0-20 by mouth ity of etamine 30 00:00: in the [place] mg 24 hr 00 morning Medical capsule and 30 mg Branch in the evening. amphetamine 2021-04 Yes [id number] 30mg Take 30 mg Univers -dextroamph 0-20 by mouth ity of etamine 30 00:00: in the [place] mg 24 hr 00 morning Medical capsule and 30 mg Branch in the evening. amphetamine 2021-04 Yes [id number] 30mg Take 30 mg Univers -dextroamph 0-20 by mouth ity of etamine 30 00:00: in the [place] mg 24 hr 00 morning Medical capsule and 30 mg Branch in the evening. amphetamine 2021-04 Yes [id number] 30mg Take 30 mg Univers -dextroamph 0-20 by mouth ity of etamine 30 00:00: in the [place] mg 24 hr 00 morning Medical capsule and 30 mg Branch in the evening. amphetamine 2021-1 Yes [id number] 30mg Take 30 mg Univers -dextroamph 0-20 by mouth ity of etamine 30 00:00: in the [place] mg 24 hr 00 morning Medical capsule and 30 mg Branch in the evening. amphetamine 2021-1 Yes [id number] 30mg Take 30 mg Univers -dextroamph 0-20 by mouth ity of etamine 30 00:00: in the [place] mg 24 hr 00 morning Medical capsule and 30 mg Branch in the evening. amphetamine 2021-1 Yes [id number] 30mg Take 30 mg Univers -dextroamph 0-20 by mouth ity of etamine 30 00:00: in the [place] mg 24 hr 00 morning Medical capsule and 30 mg Branch in the evening. amphetamine 2021-1 Yes [id number] 30mg Take 30 mg Univers -dextroamph 0-20 by mouth ity of etamine 30 00:00: in the [place] mg 24 hr 00 morning Medical capsule and 30 mg Branch in the evening. amphetamine 2021-1 Yes [id number] 30mg Take 30 mg Univers -dextroamph 0-20 by mouth ity of etamine 30 00:00: in the [place] mg 24 hr 00 morning Medical capsule and 30 mg Branch in the evening. amphetamine 2021-1 Yes [id number] 30mg Take 30 mg Univers -dextroamph 0-20 by mouth ity of etamine 30 00:00: in the [place] mg 24 hr 00 morning Medical capsule and 30 mg Branch in the evening. amphetamine 2021-1 Yes [id number] 30mg Take 30 mg Univers -dextroamph 0-20 by mouth ity of etamine 30 00:00: in the [place] mg 24 hr 00 morning Medical capsule and 30 mg Branch in the evening. amphetamine 2021-1 Yes [id number] 30mg Take 30 mg Univers -dextroamph 0-20 by mouth ity of etamine 30 00:00: in the [place] mg 24 hr 00 morning Medical capsule and 30 mg Branch in the evening. amphetamine 2021-1 Yes [id number] 30mg Take 30 mg Univers -dextroamph 0-20 by mouth ity of etamine 30 00:00: in the [place] mg 24 hr 00 morning Medical capsule and 30 mg Branch in the evening. amphetamine 2021-04 Yes [id number] 30mg Take 30 mg Univers -dextroamph 0-20 by mouth ity of etamine 30 00:00: in the [place] mg 24 hr 00 morning Medical capsule and 30 mg Branch in the evening. amphetamine 2021-04 Yes [id number] 30mg Take 30 mg Univers -dextroamph 0-20 by mouth ity of etamine 30 00:00: in the [place] mg 24 hr 00 morning Medical capsule and 30 mg Branch in the evening. TAKE 2021-04 No 100 CAPSULE 0-20 TWICE 00:00: DAILY. 00 TAKE 2021-04 No 1unit CAPSULE 0-20 TWICE 00:00: DAILY. 00 QUETIAPINE 2021-04 No FUMARATE 0-19 400 MG TABS 00:00: 00 LISINOPRIL 2021-04 No 10 MG TABS 0-19 00:00: 00 TAKE 3 2021-04 No 20 CAPSULES BY 0-19 MOUTH EVERY 00:00: DAY 00 Dose 2021-04 No Unknown 0-19 00:00: 00 QUETIAPINE 2021-04 No FUMARATE 0-19 400 MG TABS 00:00: 00 Dose 2021-04 No Unknown 0-19 00:00: 00 TAKE 3 2021-04 No 20 CAPSULES BY 0-19 MOUTH EVERY 00:00: DAY 00 Dose 2021-04 No Unknown 0-19 00:00: 00 Dose 2021-04 No Unknown 0-19 00:00: 00 LISINOPRIL 2021-04 No 10 MG TABS 0-19 00:00: 00 TAKE 3 2021-04 No CAPSULES BY 0-19 MOUTH EVERY 00:00: DAY 00 Dose 2021-04 No 1 Unknown 0-19 00:00: 00 methocarbam 2021-04- No Unive rs oL 750 mg 0-19 01-10 ity of tablet 00:00: 00:00 [place] 00 :00 Medical Branch methocarbam 2021-04- No Unive rs oL 750 mg 0-19 01-10 ity of tablet 00:00: 00:00 [place] 00 :00 Medical Branch methocarbam 2021-04- No Unive rs oL 750 mg 0-19 -10 ity of tablet 00:00: 00:00 [place] 00 :00 Medical Branch methocarbam 2021-04- No Unive rs oL 750 mg 0-19 01-10 ity of tablet 00:00: 00:00 [place] 00 :00 Medical Branch methocarbam 2021-04- No Unive rs oL 750 mg 0-19 01-10 ity of tablet 00:00: 00:00 [place] 00 :00 Medical Branch methocarbam 2021-04- No Unive rs oL 750 mg 0-19 01-10 ity of tablet 00:00: 00:00 [place] 00 :00 Medical Branch SYMBICORT 2021-04 Yes INHALE 2 Univ ers 160-4.5 0-14 PUFFS ity of mcg/actuati 00:00: TWICE [place] on inhaler 00 DAILY. Medical RINSE Branch MOUTH AFTER USE. SYMBICORT 2021-04 Yes INHALE 2 Univ ers 160-4.5 0-14 PUFFS ity of mcg/actuati 00:00: TWICE [place] on inhaler 00 DAILY. Medical RINSE Branch MOUTH AFTER USE. SYMBICORT 2021-04 Yes INHALE 2 Univ ers 160-4.5 0-14 PUFFS ity of mcg/actuati 00:00: TWICE [place] on inhaler 00 DAILY. Medical RINSE Branch MOUTH AFTER USE. SYMBICORT 2021-04 Yes INHALE 2 Univ ers 160-4.5 0-14 PUFFS ity of mcg/actuati 00:00: TWICE [place] on inhaler 00 DAILY. Medical RINSE Branch MOUTH AFTER USE. SYMBICORT 2021-04 Yes INHALE 2 Univ ers 160-4.5 0-14 PUFFS ity of mcg/actuati 00:00: TWICE [place] on inhaler 00 DAILY. Medical RINSE Branch MOUTH AFTER USE. SYMBICORT 2021-04 Yes INHALE 2 Univ ers 160-4.5 0-14 PUFFS ity of mcg/actuati 00:00: TWICE [place] on inhaler 00 DAILY. Medical RINSE Branch MOUTH AFTER USE. SYMBICORT 2021-04 Yes INHALE 2 Univ ers 160-4.5 0-14 PUFFS ity of mcg/actuati 00:00: TWICE [place] on inhaler 00 DAILY. Medical RINSE Branch MOUTH AFTER USE. SYMBICORT 2021-04 Yes INHALE 2 Univ ers 160-4.5 0-14 PUFFS ity of mcg/actuati 00:00: TWICE [place] on inhaler 00 DAILY. Medical RINSE Branch MOUTH AFTER USE. SYMBICORT 2021-04 Yes INHALE 2 Univ ers 160-4.5 0-14 PUFFS ity of mcg/actuati 00:00: TWICE [place] on inhaler 00 DAILY. Medical RINSE Branch MOUTH AFTER USE. SYMBICORT 2021-04 Yes INHALE 2 Univ ers 160-4.5 0-14 PUFFS ity of mcg/actuati 00:00: TWICE [place] on inhaler 00 DAILY. Medical RINSE Branch MOUTH AFTER USE. SYMBICORT 2021-04 Yes INHALE 2 Univ ers 160-4.5 0-14 PUFFS ity of mcg/actuati 00:00: TWICE [place] on inhaler 00 DAILY. Medical RINSE Branch MOUTH AFTER USE. SYMBICORT 2021-04 Yes INHALE 2 Univ ers 160-4.5 0-14 PUFFS ity of mcg/actuati 00:00: TWICE [place] on inhaler 00 DAILY. Medical RINSE Branch MOUTH AFTER USE. SYMBICORT 2021-04 Yes INHALE 2 Univ ers 160-4.5 0-14 PUFFS ity of mcg/actuati 00:00: TWICE [place] on inhaler 00 DAILY. Medical RINSE Branch MOUTH AFTER USE. SYMBICORT 2021-04 Yes INHALE 2 Univ ers 160-4.5 0-14 PUFFS ity of mcg/actuati 00:00: TWICE [place] on inhaler 00 DAILY. Medical RINSE Branch MOUTH AFTER USE. SYMBICORT 2021-04 Yes INHALE 2 Univ ers 160-4.5 0-14 PUFFS ity of mcg/actuati 00:00: TWICE [place] on inhaler 00 DAILY. Medical RINSE Branch MOUTH AFTER USE. SYMBICORT 2021-04 Yes INHALE 2 Univ ers 160-4.5 0-14 PUFFS ity of mcg/actuati 00:00: TWICE [place] on inhaler 00 DAILY. Medical RINSE Branch MOUTH AFTER USE. SYMBICORT 2021-04 Yes INHALE 2 Univ ers 160-4.5 0-14 PUFFS ity of mcg/actuati 00:00: TWICE [place] on inhaler 00 DAILY. Medical RINSE Branch MOUTH AFTER USE. BUSPIRONE 2021-04 No HYDROCHLORI 0-14 DE 10 MG 00:00: TABS 00 BUSPIRONE 2021-04 No HYDROCHLORI 0-14 DE 10 MG 00:00: TABS 00 BUSPIRONE 2021-04 No HYDROCHLORI 0-14 DE 10 MG 00:00: TABS 00 BUSPIRONE 2021- No HYDROCHLORI 0-14 DE 10 MG 00:00: TABS 00 gabapentin 2021-2022- No Univer s 300 mg 0-14 01-10 ity of capsule 00:00: 00:00 [place] 00 :00 Medical Branch gabapentin 2021-2022- No Univer s 300 mg 0-14 01-10 ity of capsule 00:00: 00:00 [place] 00 :00 Medical Branch gabapentin 2021-2022- No Univer s 300 mg 0-14 01-10 ity of capsule 00:00: 00:00 [place] 00 :00 Medical Branch gabapentin 2021-1 2022- No Univer s 300 mg 0-14 -10 ity of capsule 00:00: 00:00 [place] 00 :00 Medical Branch gabapentin 2021-1 2022- No Univer s 300 mg 0-14 -10 ity of capsule 00:00: 00:00 [place] 00 :00 Medical Branch gabapentin 2021-1 2022- No Univer s 300 mg 0-14 -10 ity of capsule 00:00: 00:00 [place] 00 :00 Medical Branch PROAIR HFA 2021- No 108 (90 0-04 Base) 00:00: MCG/ACT 00 AERS TAKE 2021-04 No 50 TABLET ONCE 0-04 A DAY 00:00: (DAILY) 00 NEEDED FOR MIGRAINES PROAIR HFA 2021- No 108 (90 0-04 Base) 00:00: MCG/ACT 00 AERS TAKE 2021- No 50 TABLET ONCE 0-04 A DAY 00:00: (DAILY) 00 NEEDED FOR MIGRAINES PROAIR HFA 2021- No 108 (90 0-04 Base) 00:00: MCG/ACT 00 AERS TAKE 2021- No 50 TABLET ONCE 0-04 A DAY 00:00: (DAILY) 00 NEEDED FOR MIGRAINES PROAIR HFA 2021- No 300 108 (90 0-04 Base) 00:00: MCG/ACT 00 AERS TAKE 2021-04 No 25 TABLET ONCE 0-04 A DAY 00:00: (DAILY) 00 NEEDED FOR MIGRAINES TRAZODONE 0 No 50 HYDROCHLORI 9-29 DE 50 MG 00:00: TABS 00 TRAZODONE 2-0 No 50 HYDROCHLORI 9-29 DE 50 MG 00:00: TABS 00 TRAZODONE 2022-0 No 50 HYDROCHLORI 9-29 DE 50 MG 00:00: TABS 00 TRAZODONE 2022-0 No 50 HYDROCHLORI 9-29 DE 50 MG 00:00: TABS 00 TAKE 1 CAP 2022-0 No 30 ONCE A DAY 01-10 (DAILY) FOR 00:00: DEPRESSION 00 TAKE 1 CAP 2022-0 No 30 ONCE A DAY 01-10 (DAILY) FOR 00:00: DEPRESSION 00 TAKE 1 CAP 2022-0 No 30 ONCE A DAY 01-10 (DAILY) FOR 00:00: DEPRESSION 00 TAKE 1 CAP 2022-0 No 30 ONCE A DAY 01-10 (DAILY) FOR 00:00: DEPRESSION 00 TAKE 1 CAP 2022-0 No 30 ONCE A DAY 01-10 (DAILY) FOR 00:00: DEPRESSION 00 Dose 2-0 No Unknown 01-09 00:00: 00 Dose 2-0 No Unknown 01-09 00:00: 00 Dose 2022-0 No Unknown 01-09 00:00: 00 Dose 2022-0 No Unknown 01-09 00:00: 00 Dose 2-0 No Unknown 01-09 00:00: 00 OMEPRAZOLE 2-0 No 40 40 MG CPDR 01-07 00:00: 00 Dose 2-0 No Unknown 01-07 00:00: 00 Dose 2-0 No Unknown 01-07 00:00: 00 Dose 2022-0 No Unknown 01-07 00:00: 00 OMEPRAZOLE 2022-0 No 40 MG CPDR 01-07 00:00: 00 OMEPRAZOLE 2022-0 No 40 40 MG CPDR 01-07 00:00: 00 SUMATRIPTAN 2022-0 No 50 SUCCINATE 9-22 50 MG TABS 00:00: 00 SUMATRIPTAN 2022-0 No SUCCINATE 9-22 50 MG TABS 00:00: 00 SUMATRIPTAN 2022-0 No SUCCINATE 9-22 50 MG TABS 00:00: 00 SUMATRIPTAN 2022-0 No SUCCINATE 9-22 50 MG TABS 00:00: 00 SUMATRIPTAN 2022-0 No SUCCINATE 9-22 50 MG TABS 00:00: 00 SUMATRIPTAN 2022-0 No 50 SUCCINATE 9-22 50 MG TABS 00:00: 00 TAKE 2-0 No 400 0.5/HALF 9-20 TABLETS BY 00:00: MOUTH 00 NIGHTLY QUETIAPINE 2-0 No FUMARATE ER 9-20 400 MG TB24 00:00: 00 TAKE 1 2-0 No 40 CAPSULE BY 9-20 MOUTH EVERY 00:00: DAY 00 TAKE 2-0 No 400 0.5/HALF 9-20 TABLETS BY 00:00: MOUTH 00 NIGHTLY QUETIAPINE 2-0 No FUMARATE ER 9-20 400 MG TB24 00:00: 00 TAKE 1 2-0 No 40 CAPSULE BY 9-20 MOUTH EVERY 00:00: DAY 00 TAKE 2-0 No 400 0.5/HALF 9-20 TABLETS BY 00:00: MOUTH 00 NIGHTLY QUETIAPINE 2-0 No FUMARATE ER 9-20 400 MG TB24 00:00: 00 TAKE 1 2-0 No 40 CAPSULE BY 9-20 MOUTH EVERY 00:00: DAY 00 TAKE 2-0 No 400 0.5/HALF 9-20 TABLETS BY 00:00: MOUTH 00 NIGHTLY QUETIAPINE 2-0 No FUMARATE ER 9-20 400 MG TB24 00:00: 00 TAKE 1 2021-0 No 40 CAPSULE BY 9-20 MOUTH EVERY 00:00: DAY 00 TAKE /2 2-0 No TABLET BY 9-20 MOUTH 00:00: NIGHTLY 00 QUETIAPINE 2-0 No FUMARATE ER 9-20 400 MG TB24 00:00: 00 TAKE 1 2-0 No 40 CAPSULE BY 9-20 MOUTH EVERY 00:00: DAY 00 TAKE 2-0 No 400 0.5/HALF 9-20 TABLETS BY 00:00: MOUTH 00 NIGHTLY QUETIAPINE 2-0 No FUMARATE ER 9-20 400 MG TB24 00:00: 00 TAKE 1 2-0 No 40 CAPSULE BY 9-20 MOUTH EVERY 00:00: DAY 00 PANTOPRAZOL 2-0 No 40 E SODIUM 40 8-31 MG TBEC 00:00: 00 AMLODIPINE 2-0 No BESYLATE 5 8-31 MG TABS 00:00: 00 INHALE 2 2-0 No PUFFS TWICE 8-31 A DAY 00:00: 00 PANTOPRAZOL 2-0 No 40 E SODIUM 40 8-31 MG TBEC 00:00: 00 AMLODIPINE 2022-0 No BESYLATE 5 8-31 MG TABS 00:00: 00 INHALE 2 2-0 No PUFFS TWICE 8-31 A DAY 00:00: 00 PANTOPRAZOL 2022-0 No 40 E SODIUM 40 8-31 MG TBEC 00:00: 00 AMLODIPINE 2022-0 No BESYLATE 5 8-31 MG TABS 00:00: 00 INHALE 2 2-0 No PUFFS TWICE 8-31 A DAY 00:00: 00 PANTOPRAZOL 2022-0 No 40 E SODIUM 40 8-31 MG TBEC 00:00: 00 AMLODIPINE 2-0 No BESYLATE 5 8-31 MG TABS 00:00: 00 INHALE 2 2-0 No PUFFS BY 8-31 MOUTH TWICE 00:00: A DAY 00 Dose 2022-0 No Unknown 8-31 00:00: 00 AMLODIPINE 2-0 No BESYLATE 5 8-31 MG TABS 00:00: 00 INHALE 2 2-0 No PUFFS BY 8-31 MOUTH TWICE 00:00: A DAY 00 (RINSE MOUTH AFTER USE) PANTOPRAZOL 2-0 No 40 E SODIUM 40 8-31 MG TBEC 00:00: 00 AMLODIPINE 2-0 No BESYLATE 5 8-31 MG TABS 00:00: 00 INHALE 2 2-0 No PUFFS TWICE 8-31 A DAY 00:00: 00 TAKE 1 2021-0 No 400 TABLET BY 8-25 MOUTH TWICE 00:00: A DAY 00 NEEDED FOR BACK PAIN TAKE 1 2021-0 No 400 TABLET BY 8-25 MOUTH TWICE 00:00: A DAY 00 NEEDED FOR BACK PAIN TAKE 1 2021-0 No 400 TABLET BY 8-25 MOUTH TWICE 00:00: A DAY 00 NEEDED FOR BACK PAIN TAKE 1 2-0 No 400 TABLET BY 8-25 MOUTH TWICE 00:00: A DAY 00 NEEDED FOR BACK PAIN TAKE 1 2021-0 No 400 TABLET BY 8-25 MOUTH TWICE 00:00: A DAY 00 NEEDED FOR BACK PAIN TAKE 1 2021-0 No 400 TABLET BY 8-25 MOUTH TWICE 00:00: A DAY 00 NEEDED FOR BACK PAIN LITHIUM 2022-0 No 300 CARBONATE 8-23 300 MG TABS 00:00: 00 LITHIUM 2022-0 No 300 CARBONATE 8-23 300 MG TABS 00:00: 00 LITHIUM 2022-0 No 300 CARBONATE 8-23 300 MG TABS 00:00: 00 LITHIUM 2022-0 No 300 CARBONATE 8-23 300 MG TABS 00:00: 00 LITHIUM 2022-0 No 300 CARBONATE 8-23 300 MG TABS 00:00: 00 LITHIUM 2022-0 No 300 CARBONATE 8-23 300 MG TABS 00:00: 00 TAKE 1 2022-0 No 5 TABLET BY 8-14 MOUTH EVERY 00:00: DAY 00 TAKE 1 2022-0 No 5 TABLET BY 8-14 MOUTH EVERY 00:00: DAY 00 TAKE 1 2022-0 No 5 TABLET BY 8-14 MOUTH EVERY 00:00: DAY 00 TAKE 1 2022-0 No 5 TABLET BY 8-14 MOUTH EVERY 00:00: DAY 00 TAKE 1 2022-0 No 5 TABLET BY 8-14 MOUTH EVERY 00:00: DAY 00 TAKE 1 2022-0 No 5 TABLET BY 8-14 MOUTH EVERY 00:00: DAY 00 TAKE 1 2022-0 No 5 TABLET BY 8-14 MOUTH EVERY 00:00: DAY 00 Miralax 17 2022-0 No gram/do gram/dose 8-12 se oral powder 00:00: 00 ProAir HFA 2022-0 No 2mcg/ac 90 8-12 tuation mcg/actuati 00:00: on aerosol 00 inhaler docusate 2022-0 No 1mg sodium 100 8-12 mg capsule 00:00: 00 &lt 2022-0 No 400 8-12 00:00: 00 TAKE 1 TAB 2022-0 No 10 ONCE A DAY 8-12 (DAILY) FOR 00:00: HYPERTENSIO 00 N TAKE 1 2022-0 No 5 TABLET BY 8-12 MOUTH EVERY 00:00: DAY 00 &lt 2022-0 No 400 8-12 00:00: 00 TAKE 1 2022-0 No 5 TABLET BY 8-12 MOUTH EVERY 00:00: DAY 00 Miralax 17 2022-0 No gram/do gram/dose 8-12 se oral powder 00:00: 00 ProAir HFA 2022-0 No 2mcg/ac 90 8-12 tuation mcg/actuati 00:00: on aerosol 00 inhaler docusate 2022-0 No 1mg sodium 100 8-12 mg capsule 00:00: 00 &lt 2022-0 No 400 8-12 00:00: 00 TAKE 1 TAB 2022-0 No 10 ONCE A DAY 8-12 (DAILY) FOR 00:00: HYPERTENSIO 00 N TAKE 1 2022-0 No 5 TABLET BY 8-12 MOUTH EVERY 00:00: DAY 00 &lt 2022-0 No 400 8- 00:00: 00 TAKE 1 2022-0 No 5 TABLET BY 8-12 MOUTH EVERY 00:00: DAY 00 Miralax 17 2022-0 No gram/do gram/dose 8-12 se oral powder 00:00: 00 ProAir HFA 2022-0 No 2mcg/ac 90 8-12 tuation mcg/actuati 00:00: on aerosol 00 inhaler docusate 2022-0 No 1mg sodium 100 8-12 mg capsule 00:00: 00 &lt 2022-0 No 400 8- 00:00: 00 TAKE 1 TAB 2022-0 No 10 ONCE A DAY 8-12 (DAILY) FOR 00:00: HYPERTENSIO 00 N TAKE 1 2022-0 No 5 TABLET BY 8-12 MOUTH EVERY 00:00: DAY 00 &lt 2022-0 No 400 8 00:00: 00 TAKE 1 2022-0 No 5 TABLET BY 8-12 MOUTH EVERY 00:00: DAY 00 Miralax 17 2022-0 No gram/do gram/dose 8-12 se oral powder 00:00: 00 Dose 2022-0 No Unknown 11-25 00:00: 00 docusate 2022-0 No 1mg sodium 100 8-12 mg capsule 00:00: 00 &lt 2022-0 No 400 8 00:00: 00 TAKE 1 TAB 2022-0 No 10 ONCE A DAY 8-12 (DAILY) FOR 00:00: HYPERTENSIO 00 N TAKE 1 2022-0 No 5 TABLET BY 8-12 MOUTH EVERY 00:00: DAY 00 &lt 2022-0 No 400 8 00:00: 00 TAKE 1 2022-0 No 5 TABLET BY 8-12 MOUTH EVERY 00:00: DAY 00 Dose 2022-0 No Unknown 11-25 00:00: 00 Dose 2022-0 No Unknown 8 00:00: 00 TAKE 1 2022-0 No 1unit CAPSULE 8-12 TWICE 00:00: DAILY. 00 &lt 2022-0 No 400 8-12 00:00: 00 TAKE 1 TAB 2022-0 No 10 ONCE A DAY 8-12 (DAILY) FOR 00:00: HYPERTENSIO 00 N TAKE 1 2022-0 No 5 TABLET BY 8-12 MOUTH EVERY 00:00: DAY 00 &lt 2022-0 No 400 8-12 00:00: 00 TAKE 1 2022-0 No 5 TABLET BY 8-12 MOUTH EVERY 00:00: DAY 00 Miralax 17 2022-0 No gram/do gram/dose 8-12 se oral powder 00:00: 00 ProAir HFA 2022-0 No 2mcg/ac 90 8-12 tuation mcg/actuati 00:00: on aerosol 00 inhaler docusate 2022-0 No 1mg sodium 100 8-12 mg capsule 00:00: 00 &lt 2022-0 No 400 8-12 00:00: 00 TAKE 1 TAB 2022-0 No 10 ONCE A DAY 8-12 (DAILY) FOR 00:00: HYPERTENSIO 00 N TAKE 1 2022-0 No 5 TABLET BY 8-12 MOUTH EVERY 00:00: DAY 00 &lt 2022-0 No 400 8-12 00:00: 00 TAKE 1 2022-0 No 5 TABLET BY 8-12 MOUTH EVERY 00:00: DAY 00 Miralax 17 2022-0 No gram/do gram/dose 8-12 se oral powder 00:00: 00 ProAir HFA 2022-0 No 2mcg/ac 90 8-12 tuation mcg/actuati 00:00: on aerosol 00 inhaler docusate 2022-0 No 1mg sodium 100 8-12 mg capsule 00:00: 00 &lt 2022-0 No 400 8-12 00:00: 00 TAKE 1 TAB 2022-0 No 10 ONCE A DAY 8-12 (DAILY) FOR 00:00: HYPERTENSIO 00 N TAKE 1 2022-0 No 5 TABLET BY 8-12 MOUTH EVERY 00:00: DAY 00 &lt 2022-0 No 400 8-12 00:00: 00 TAKE 1 2022-0 No 5 TABLET BY 8-12 MOUTH EVERY 00:00: DAY 00 Miralax 17 2022-0 No gram/do gram/dose 8-12 se oral powder 00:00: 00 ProAir HFA 2022-0 No 2mcg/ac 90 8-12 tuation mcg/actuati 00:00: on aerosol 00 inhaler docusate 2022-0 No 1mg sodium 100 8-12 mg capsule 00:00: 00 &lt 2022-0 No 400 812 00:00: 00 TAKE 1 TAB 2022-0 No 10 ONCE A DAY 8-12 (DAILY) FOR 00:00: HYPERTENSIO 00 N TAKE 1 2022-0 No 5 TABLET BY 8-12 MOUTH EVERY 00:00: DAY 00 &lt 2022-0 No 400 8 00:00: 00 TAKE 1 2022-0 No 5 TABLET BY 8-12 MOUTH EVERY 00:00: DAY 00 TAKE 1 2022-0 No 20 CAPSULE BY 8-11 MOUTH EVERY 00:00: DAY 00 TAKE 1 2022-0 No TABLET BY 8-11 MOUTH EVERY 00:00: DAY IN THE 00 MORNING TAKE 1 TAB 2022-0 No 10 ONCE A DAY 8-11 (DAILY) FOR 00:00: ASTHMA 00 TAKE 1 2022-0 No 20 CAPSULE BY 8-11 MOUTH EVERY 00:00: DAY 00 TAKE 1 2022-0 No TABLET BY 8-11 MOUTH EVERY 00:00: DAY IN THE 00 MORNING TAKE 1 TAB 2022-0 No 10 ONCE A DAY 8-11 (DAILY) FOR 00:00: ASTHMA 00 TAKE 1 2022-0 No 20 CAPSULE BY 8-11 MOUTH EVERY 00:00: DAY 00 TAKE 1 2022-0 No TABLET BY 8-11 MOUTH EVERY 00:00: DAY IN THE 00 MORNING TAKE 1 TAB 2022-0 No 10 ONCE A DAY 8-11 (DAILY) FOR 00:00: ASTHMA 00 TAKE 1 2022-0 No 20 CAPSULE BY 8-11 MOUTH EVERY 00:00: DAY 00 TAKE 1 2022-0 No TABLET BY 8-11 MOUTH EVERY 00:00: DAY IN THE 00 MORNING TAKE 1 TAB 2022-0 No 10 ONCE A DAY 8-11 (DAILY) FOR 00:00: ASTHMA 00 TAKE 1 2022-0 No 20 CAPSULE BY 8-11 MOUTH EVERY 00:00: DAY 00 TAKE 1 2022-0 No TABLET BY 8-11 MOUTH EVERY 00:00: DAY IN THE 00 MORNING TAKE 1 TAB 2022-0 No 10 ONCE A DAY 8-11 (DAILY) FOR 00:00: ASTHMA 00 TAKE 1 2022-0 No 20 CAPSULE BY 8-11 MOUTH EVERY 00:00: DAY 00 TAKE 1 2022-0 No TABLET BY 8-11 MOUTH EVERY 00:00: DAY IN THE 00 MORNING TAKE 1 TAB 2022-0 No 10 ONCE A DAY 8-11 (DAILY) FOR 00:00: ASTHMA 00 TAKE 1 2022-0 No 20 CAPSULE BY 8-11 MOUTH EVERY 00:00: DAY 00 TAKE 1 2022-0 No TABLET BY 8-11 MOUTH EVERY 00:00: DAY IN THE 00 MORNING TAKE 1 TAB 2022-0 No 10 ONCE A DAY 8-11 (DAILY) FOR 00:00: ASTHMA 00 TAKE 1 2022-0 No 20 CAPSULE BY 8-11 MOUTH EVERY 00:00: DAY 00 TAKE 1 2022-0 No TABLET BY 8-11 MOUTH EVERY 00:00: DAY IN THE 00 MORNING TAKE 1 TAB 2022-0 No 10 ONCE A DAY 8-11 (DAILY) FOR 00:00: ASTHMA 00 &lt 2022-0 No 8-10 00:00: 00 &lt 2022-0 No 8-10 00:00: 00 Dose 2022-0 No 1 Unknown 8-10 00:00: 00 TAKE 1 2022-0 No 300 CAPSULE BY 8-10 MOUTH TWICE 00:00: A DAY 00 &lt 2022-0 No 8-10 00:00: 00 &lt 2022-0 No 8-10 00:00: 00 Dose 2022-0 No 1 Unknown 8-10 00:00: 00 TAKE 1 2022-0 No 300 CAPSULE BY 8-10 MOUTH TWICE 00:00: A DAY 00 &lt 2022-0 No 8-10 00:00: 00 &lt 2022-0 No 8-10 00:00: 00 Dose 2022-0 No 1 Unknown 8-10 00:00: 00 TAKE 1 2022-0 No 300 CAPSULE BY 8-10 MOUTH TWICE 00:00: A DAY 00 &lt 2022-0 No 8-10 00:00: 00 &lt 2022-0 No 8-10 00:00: 00 Dose 2022-0 No 1 Unknown 8-10 00:00: 00 TAKE 1 2022-0 No 300 CAPSULE BY 8-10 MOUTH TWICE 00:00: A DAY 00 &lt 2022-0 No 8-10 00:00: 00 &lt 2022-0 No 8-10 00:00: 00 Dose 2022-0 No 1 Unknown 8-10 00:00: 00 TAKE 1 2022-0 No 300 CAPSULE BY 8-10 MOUTH TWICE 00:00: A DAY 00 &lt 2022-0 No 8-10 00:00: 00 &lt 2022-0 No 8-10 00:00: 00 Dose 2022-0 No 1 Unknown 8-10 00:00: 00 TAKE 1 2022-0 No 300 CAPSULE BY 8-10 MOUTH TWICE 00:00: A DAY 00 &lt 2022-0 No 8-10 00:00: 00 &lt 2022-0 No 8-10 00:00: 00 Dose 2022-0 No 1 Unknown 8-10 00:00: 00 TAKE 1 2022-0 No 300 CAPSULE BY 8-10 MOUTH TWICE 00:00: A DAY 00 &lt 2022-0 No 8-10 00:00: 00 &lt 2022-0 No 8-10 00:00: 00 Dose 2022-0 No 1 Unknown 8-10 00:00: 00 TAKE 1 2022-0 No 300 CAPSULE BY 8-10 MOUTH TWICE 00:00: A DAY 00 TAKE 1 2022-0 No 20 CAPSULE BY 8-08 MOUTH EVERY 00:00: DAY 00 &lt 2022-0 No 300 8 00:00: 00 &lt 2022-0 No 10 8 00:00: 00 TAKE 3 2022-0 No 20 CAPSULES BY 8-08 MOUTH EVERY 00:00: DAY 00 TAKE 1 2022-0 No 20 CAPSULE BY 8-08 MOUTH EVERY 00:00: DAY 00 &lt 2022-0 No 300 8 00:00: 00 &lt 2022-0 No 10 8 00:00: 00 TAKE 3 2022-0 No 20 CAPSULES BY 8-08 MOUTH EVERY 00:00: DAY 00 TAKE 1 2022-0 No 20 CAPSULE BY 8-08 MOUTH EVERY 00:00: DAY 00 &lt 2022-0 No 300 8 00:00: 00 &lt 2022-0 No 10 8 00:00: 00 TAKE 3 2022-0 No 20 CAPSULES BY 8-08 MOUTH EVERY 00:00: DAY 00 TAKE 1 2022-0 No 20 CAPSULE BY 8-08 MOUTH EVERY 00:00: DAY 00 &lt 2022-0 No 300 8-08 00:00: 00 &lt 2022-0 No 10 8-08 00:00: 00 TAKE 3 2022-0 No 20 CAPSULES BY 8-08 MOUTH EVERY 00:00: DAY 00 TAKE 1 2022-0 No 20 CAPSULE BY 8-08 MOUTH EVERY 00:00: DAY 00 &lt 2022-0 No 300 8-08 00:00: 00 &lt 2022-0 No 10 8-08 00:00: 00 TAKE 3 2022-0 No 20 CAPSULES BY 8-08 MOUTH EVERY 00:00: DAY 00 TAKE 1 2022-0 No 20 CAPSULE BY 8-08 MOUTH EVERY 00:00: DAY 00 &lt 2022-0 No 300 8-08 00:00: 00 &lt 2022-0 No 10 8-08 00:00: 00 TAKE 3 2022-0 No 20 CAPSULES BY 8-08 MOUTH EVERY 00:00: DAY 00 TAKE 1 2022-0 No 20 CAPSULE BY 8-08 MOUTH EVERY 00:00: DAY 00 &lt 2022-0 No 300 8- 00:00: 00 &lt 2022-0 No 10 8- 00:00: 00 TAKE 3 2022-0 No 20 CAPSULES BY 8-08 MOUTH EVERY 00:00: DAY 00 TAKE 1 2022-0 No 20 CAPSULE BY 8-08 MOUTH EVERY 00:00: DAY 00 &lt 2022-0 No 300 8- 00:00: 00 &lt 2022-0 No 10 8- 00:00: 00 TAKE 3 2022-0 No 20 CAPSULES BY 8-08 MOUTH EVERY 00:00: DAY 00 TAKE 1 2022-0 No 30 CAPSULE 8-05 EVERY DAY 00:00: AT 8AM AND 00 2 PM FOR ADD OR ADHD TAKE 1 2022-0 No 30 CAPSULE 8-05 EVERY DAY 00:00: AT 8AM AND 00 2 PM FOR ADD OR ADHD TAKE 1 2022-0 No 30 CAPSULE 8-05 EVERY DAY 00:00: AT 8AM AND 00 2 PM FOR ADD OR ADHD TAKE 1 2022-0 No 30 CAPSULE 8-05 EVERY DAY 00:00: AT 8AM AND 00 2 PM FOR ADD OR ADHD TAKE 1 2022-0 No 30 CAPSULE 8-05 EVERY DAY 00:00: AT 8AM AND 00 2 PM FOR ADD OR ADHD TAKE 1 2022-0 No 30 CAPSULE 8-05 EVERY DAY 00:00: AT 8AM AND 00 2 PM FOR ADD OR ADHD TAKE 1 2-0 No 30 CAPSULE - EVERY DAY 00:00: AT 8AM AND 00 2 PM FOR ADD OR ADHD TAKE 1 2-0 No 30 CAPSULE - EVERY DAY 00:00: AT 8AM AND 00 2 PM FOR ADD OR ADHD TAKE 1 2-0 No 30 TABLET BY 8 MOUTH TWICE 00:00: A DAY 00 TAKE 1 2-0 No 40 CAPSULE BY 8- MOUTH EVERY 00:00: DAY 00 Dose 2022-0 No 20 Unknown 11-17 00:00: 00 TAKE 1 2-0 No 400 CAPSULE BY 8 MOUTH TWICE 00:00: A DAY FOR 00 SCIATICA PAIN &lt 2022-0 No 10 11-17 00:00: 00 Dose 2-0 No 300 Unknown 11-17 00:00: 00 TAKE 1 2-0 No 30 TABLET BY 8 MOUTH TWICE 00:00: A DAY 00 TAKE 1 2-0 No 40 CAPSULE BY 8 MOUTH EVERY 00:00: DAY 00 Dose 2022-0 No 20 Unknown 11-17 00:00: 00 TAKE 1 2-0 No 400 CAPSULE BY 8 MOUTH TWICE 00:00: A DAY FOR 00 SCIATICA PAIN &lt 2-0 No 10 11-17 00:00: 00 Dose 2022-0 No 300 Unknown 11-17 00:00: 00 TAKE 1 2-0 No 30 TABLET BY 8 MOUTH TWICE 00:00: A DAY 00 TAKE 1 2-0 No 40 CAPSULE BY 11-17 MOUTH EVERY 00:00: DAY 00 Dose 2022-0 No 20 Unknown 11-17 00:00: 00 TAKE 1 2-0 No 400 CAPSULE BY 8-04 MOUTH TWICE 00:00: A DAY FOR 00 SCIATICA PAIN &lt 2-0 No 10 11-17 00:00: 00 Dose 2022-0 No 300 Unknown 11-17 00:00: 00 TAKE 1 2-0 No 30 TABLET BY 8- MOUTH TWICE 00:00: A DAY 00 TAKE 1 2-0 No 40 CAPSULE BY 8- MOUTH EVERY 00:00: DAY 00 Dose 2022-0 No 20 Unknown 11-17 00:00: 00 TAKE 1 2-0 No 400 CAPSULE BY 8-04 MOUTH TWICE 00:00: A DAY FOR 00 SCIATICA PAIN &lt 2022-0 No 10 11-17 00:00: 00 Dose 2022-0 No 300 Unknown 11-17 00:00: 00 TAKE 1 2022-0 No 30 TABLET BY [...] 300 Unknown 11-17 00:00: 00 TAKE 1 2-0 No 30 TABLET BY 8- MOUTH TWICE 00:00: A DAY 00 TAKE 1 2022-0 No 40 CAPSULE BY 8 MOUTH EVERY 00:00: DAY 00 Dose 2022-0 No 20 Unknown 11-17 00:00: 00 TAKE 1 2-0 No 400 CAPSULE BY 8 MOUTH TWICE 00:00: A DAY FOR 00 SCIATICA PAIN &lt 2-0 No 10 11-17 00:00: 00 Dose 2022-0 No 300 Unknown 11-17 00:00: 00 TAKE 1 2-0 No 30 TABLET BY 8 MOUTH TWICE 00:00: A DAY 00 TAKE 1 2-0 No 40 CAPSULE BY 8 MOUTH EVERY 00:00: DAY 00 Dose 2022-0 No 20 Unknown 11-17 00:00: 00 TAKE 1 2-0 No 400 CAPSULE BY 8 MOUTH TWICE 00:00: A DAY FOR 00 SCIATICA PAIN &lt 2022-0 No 10 11-17 00:00: 00 Dose 2022-0 No 300 Unknown 11-17 00:00: 00 TAKE 1 2-0 No 30 TABLET BY 8-04 MOUTH TWICE 00:00: A DAY 00 TAKE 1 2022-0 No 40 CAPSULE BY 8 MOUTH EVERY 00:00: DAY 00 Dose 2022-0 No 20 Unknown 11-17 00:00: 00 TAKE 1 2-0 No 400 CAPSULE BY 8-04 MOUTH TWICE 00:00: A DAY FOR 00 SCIATICA PAIN &lt 2022-0 No 10 11-17 00:00: 00 Dose 2022-0 No 300 Unknown 11-17 00:00: 00 TAKE 1 2022-0 No 30 CAPSULE 8- EVERY DAY 00:00: AT 8AM AND 00 2 PM FOR ADD OR ADHD &lt 2022-0 No 60 11-16 00:00: 00 TAKE 1 2022-0 No 30 CAPSULE 8- EVERY DAY 00:00: AT 8AM AND 00 2 PM FOR ADD OR ADHD &lt 2022-0 No 60 11-16 00:00: 00 TAKE 1 2022-0 No 30 CAPSULE 8- EVERY DAY 00:00: AT 8AM AND 00 2 PM FOR ADD OR ADHD &lt 2022-0 No 60 11-16 00:00: 00 TAKE 1 2022-0 No 30 CAPSULE 8- EVERY DAY 00:00: AT 8AM AND 00 2 PM FOR ADD OR ADHD &lt 2022-0 No 60 11-16 00:00: 00 TAKE 1 2022-0 No 30 CAPSULE - EVERY DAY 00:00: AT 8AM AND 00 2 PM FOR ADD OR ADHD &lt 2022-0 No 60 11-16 00:00: 00 TAKE 1 2022-0 No 30 CAPSULE 8- EVERY DAY 00:00: AT 8AM AND 00 2 PM FOR ADD OR ADHD &lt 2022-0 No 60 11-16 00:00: 00 TAKE 1 2022-0 No 30 CAPSULE - EVERY DAY 00:00: AT 8AM AND 00 2 PM FOR ADD OR ADHD &lt 2022-0 No 60 11-16 00:00: 00 TAKE 1 2022-0 No 30 CAPSULE - EVERY DAY 00:00: AT 8AM AND 00 2 PM FOR ADD OR ADHD &lt 2022-0 No 60 11-16 00:00: 00 &lt 2022-0 No - 00:00: 00 Dose 2022-0 No 1 Unknown 11-15 00:00: 00 TAKE 1 2022-0 No TABLET BY 11-15 MOUTH EVERY 00:00: DAY IN THE 00 MORNING TAKE 1 2022-0 No 1 TABLET BY 11-15 MOUTH THREE 00:00: TIMES A DAY 00 NEEDED Dose 2022-0 No 300 Unknown 11-15 00:00: 00 &lt 2022-0 No 8- 00:00: 00 Dose 2022-0 No 1 Unknown 11-15 00:00: 00 TAKE 1 2022-0 No TABLET BY 8- MOUTH EVERY 00:00: DAY IN THE 00 MORNING TAKE 1 2022-0 No 1 TABLET BY 8- MOUTH THREE 00:00: TIMES A DAY 00 NEEDED Dose 2022-0 No 300 Unknown 11-15 00:00: 00 &lt 2022-0 No - 00:00: 00 Dose 2022-0 No 1 Unknown 11-15 00:00: 00 TAKE 1 2022-0 No TABLET BY 8- MOUTH EVERY 00:00: DAY IN THE 00 MORNING TAKE 1 2022-0 No 1 TABLET BY 8- MOUTH THREE 00:00: TIMES A DAY 00 NEEDED Dose 2022-0 No 300 Unknown 11-15 00:00: 00 &lt 2022-0 No - 00:00: 00 Dose 2022-0 No 1 Unknown 11-15 00:00: 00 TAKE 1 2022-0 No TABLET BY 8- MOUTH EVERY 00:00: DAY IN THE 00 MORNING TAKE 1 2022-0 No 1 TABLET BY 8- MOUTH THREE 00:00: TIMES A DAY 00 NEEDED Dose 2022-0 No 300 Unknown 11-15 00:00: 00 &lt 2022-0 No 11-15 00:00: 00 Dose 2022-0 No 1 Unknown 11-15 00:00: 00 TAKE 1 2022-0 No TABLET BY 8- MOUTH EVERY 00:00: DAY IN THE 00 MORNING TAKE 1 2022-0 No 1 TABLET BY 8- MOUTH THREE 00:00: TIMES A DAY 00 NEEDED Dose 2022-0 No 300 Unknown 11-15 00:00: 00 &lt 2022-0 No - 00:00: 00 Dose 2022-0 No 1 Unknown 11-15 00:00: 00 TAKE 1 2022-0 No TABLET BY 8- MOUTH EVERY 00:00: DAY IN THE 00 MORNING TAKE 1 2022-0 No 1 TABLET BY 8- MOUTH THREE 00:00: TIMES A DAY 00 NEEDED Dose 2022-0 No 300 Unknown 11-15 00:00: 00 &lt 2022-0 No - 00:00: 00 Dose 2022-0 No 1 Unknown 11-15 00:00: 00 TAKE 1 2022-0 No TABLET BY 8- MOUTH EVERY 00:00: DAY IN THE 00 MORNING TAKE 1 2022-0 No 1 TABLET BY 8 MOUTH THREE 00:00: TIMES A DAY 00 NEEDED Dose 2-0 No 300 Unknown 11-15 00:00: 00 &lt 2022-0 No 8- 00:00: 00 Dose 2-0 No 1 Unknown 11-15 00:00: 00 TAKE 1 2021-0 No TABLET BY 11-15 MOUTH EVERY 00:00: DAY IN THE 00 MORNING TAKE 1 2021-0 No 1 TABLET BY 8 MOUTH THREE 00:00: TIMES A DAY 00 NEEDED Dose 2-0 No 300 Unknown 11-15 00:00: 00 budesonide- 2-0 No 2mcg/ac formoterol 7-31 tuation HFA 160 00:00: mcg-4.5 00 mcg/actuati on aerosol inhaler cyclobenzap 2021-0 No 1mg rine 5 mg 7-31 tablet 00:00: 00 &lt 2-0 No 300 7-31 00:00: 00 budesonide- 2-0 No 2mcg/ac formoterol 7-31 tuation HFA 160 00:00: mcg-4.5 00 mcg/actuati on aerosol inhaler cyclobenzap 2021-0 No 1mg rine 5 mg 7-31 tablet 00:00: 00 &lt 2-0 No 300 7-31 00:00: 00 budesonide- 2-0 No 2mcg/ac formoterol 7-31 tuation HFA 160 00:00: mcg-4.5 00 mcg/actuati on aerosol inhaler cyclobenzap 2021-0 No 1mg rine 5 mg 7-31 tablet 00:00: 00 &lt 2022-0 No 300 7-31 00:00: 00 budesonide- 2-0 No 2mcg/ac formoterol 7-31 tuation HFA 160 00:00: mcg-4.5 00 mcg/actuati on aerosol inhaler Dose 2021-0 No Unknown 7- 00:00: 00 &lt 2022-0 No 300 7-31 00:00: 00 Dose 2-0 No Unknown 7-31 00:00: 00 &lt 2-0 No 300 7-31 00:00: 00 budesonide- 2-0 No 2mcg/ac formoterol 7-31 tuation HFA 160 00:00: mcg-4.5 00 mcg/actuati on aerosol inhaler cyclobenzap 2021-0 No 1mg rine 5 mg 7-31 tablet 00:00: 00 &lt 2-0 No 300 7-31 00:00: 00 budesonide- 2021-0 No 2mcg/ac formoterol 7-31 tuation HFA 160 00:00: mcg-4.5 00 mcg/actuati on aerosol inhaler cyclobenzap 2021-0 No 1mg rine 5 mg 7-31 tablet 00:00: 00 &lt 2-0 No 300 7-31 00:00: 00 budesonide- 2021-0 No 2mcg/ac formoterol 7- tuation HFA 160 00:00: mcg-4.5 00 mcg/actuati on aerosol inhaler cyclobenzap 2021-0 No 1mg rine 5 mg 7-31 tablet 00:00: 00 &lt 2-0 No 300 7-31 00:00: 00 &lt 2022-0 No 300 7-29 00:00: 00 &lt 2022-0 No 300 7-29 00:00: 00 &lt 2022-0 No 300 7-29 00:00: 00 &lt 2022-0 No 300 7-29 00:00: 00 &lt 2022-0 No 300 7-29 00:00: 00 &lt 2022-0 No 300 7-29 00:00: 00 &lt 2022-0 No 300 7-29 00:00: 00 &lt 2022-0 No 300 7-29 00:00: 00 &lt 2022-0 No 10 7-28 00:00: 00 Dose 2022-0 No 1 Unknown 7 00:00: 00 TAKE 1 2-0 No 15 TABLET BY 11-10 MOUTH THREE 00:00: TIMES A DAY 00 Dose 2022-0 No 1 Unknown 7 00:00: 00 &lt 2022-0 No 7- 00:00: 00 &lt 2022-0 No 10 7- 00:00: 00 Dose 2022-0 No 1 Unknown 11-10 00:00: 00 TAKE 1 2-0 No 15 TABLET BY 7 MOUTH THREE 00:00: TIMES A DAY 00 Dose 2022-0 No 1 Unknown 11-10 00:00: 00 &lt 2022-0 No 11-10 00:00: 00 &lt 2022-0 No 10 11-10 00:00: 00 Dose 2022-0 No 1 Unknown 11-10 00:00: 00 TAKE 1 2022-0 No 15 TABLET BY 11-10 MOUTH THREE 00:00: TIMES A DAY 00 Dose 2022-0 No 1 Unknown 11-10 00:00: 00 &lt 2022-0 No 11-10 00:00: 00 &lt 2022-0 No 10 11-10 00:00: 00 Dose 2022-0 No 1 Unknown 11-10 00:00: 00 TAKE 1 2022-0 No 15 TABLET BY 11-10 MOUTH THREE 00:00: TIMES A DAY 00 Dose 2022-0 No 1 Unknown 11-10 00:00: 00 &lt 2022-0 No 11-10 00:00: 00 &lt 2022-0 No 10 11-10 00:00: 00 Dose 2022-0 No 1 Unknown 11-10 00:00: 00 TAKE 1 2022-0 No 15 TABLET BY 11-10 MOUTH THREE 00:00: TIMES A DAY 00 Dose 2022-0 No 1 Unknown 11-10 00:00: 00 &lt 2022-0 No 11-10 00:00: 00 &lt 2022-0 No 10 11-10 00:00: 00 Dose 2022-0 No 1 Unknown 11-10 00:00: 00 TAKE 1 2022-0 No 15 TABLET BY 11-10 MOUTH THREE 00:00: TIMES A DAY 00 Dose 2022-0 No 1 Unknown 11-10 00:00: 00 &lt 2022-0 No 11-10 00:00: 00 &lt 2022-0 No 10 11-10 00:00: 00 Dose 2022-0 No 1 Unknown 11-10 00:00: 00 TAKE 1 2022-0 No 15 TABLET BY - MOUTH THREE 00:00: TIMES A DAY 00 Dose 2022-0 No 1 Unknown 11-10 00:00: 00 &lt 2022-0 No 11-10 00:00: 00 &lt 2022-0 No 10 11-10 00:00: 00 Dose 2022-0 No 1 Unknown 11-10 00:00: 00 TAKE 1 2022-0 No 15 TABLET BY 11-10 MOUTH THREE 00:00: TIMES A DAY 00 Dose 2022-0 No 1 Unknown 11-10 00:00: 00 &lt 2022-0 No 11-10 00:00: 00 TAKE 1 2022-0 No 10 TABLET BY 11-08 MOUTH EVERY 00:00: DAY 00 &lt 2022-0 No 40 11-08 00:00: 00 &lt 2022-0 No 300 11-08 00:00: 00 Dose 2022-0 No 1 Unknown 11-08 00:00: 00 &lt 2022-0 No 400 11-08 00:00: 00 &lt 2022-0 No 400 11-08 00:00: 00 TAKE 1 2022-0 No 10 TABLET BY 11-08 MOUTH EVERY 00:00: DAY 00 &lt 2022-0 No 40 11-08 00:00: 00 &lt 2022-0 No 300 11-08 00:00: 00 Dose 2022-0 No 1 Unknown 11-08 00:00: 00 &lt 2022-0 No 400 11-08 00:00: 00 &lt 2022-0 No 400 11-08 00:00: 00 TAKE 1 2022-0 No 10 TABLET BY 11-08 MOUTH EVERY 00:00: DAY 00 &lt 2022-0 No 40 11-08 00:00: 00 &lt 2022-0 No 300 11-08 00:00: 00 Dose 2022-0 No 1 Unknown 11-08 00:00: 00 &lt 2022-0 No 400 11-08 00:00: 00 &lt 2022-0 No 400 11-08 00:00: 00 TAKE 1 2022-0 No 10 TABLET BY 11-08 MOUTH EVERY 00:00: DAY 00 &lt 2022-0 No 40 11-08 00:00: 00 &lt 2022-0 No 300 11-08 00:00: 00 Dose 2022-0 No 1 Unknown 11-08 00:00: 00 &lt 2022-0 No 400 11-08 00:00: 00 &lt 2022-0 No 400 11-08 00:00: 00 TAKE 1 2022-0 No 10 TABLET BY 11-08 MOUTH EVERY 00:00: DAY 00 &lt 2022-0 No 40 11-08 00:00: 00 &lt 2022-0 No 300 11-08 00:00: 00 Dose 2022-0 No 1 Unknown 11-08 00:00: 00 &lt 2022-0 No 400 11-08 00:00: 00 &lt 2022-0 No 400 11-08 00:00: 00 TAKE 1 2022-0 No 10 TABLET BY 11-08 MOUTH EVERY 00:00: DAY 00 &lt 2022-0 No 40 11-08 00:00: 00 &lt 2022-0 No 300 11-08 00:00: 00 Dose 2022-0 No 1 Unknown 11-08 00:00: 00 &lt 2022-0 No 400 11-08 00:00: 00 &lt 2022-0 No 400 11-08 00:00: 00 TAKE 1 2022-0 No 10 TABLET BY 11-08 MOUTH EVERY 00:00: DAY 00 &lt 2022-0 No 40 11-08 00:00: 00 &lt 2022-0 No 300 11-08 00:00: 00 Dose 2022-0 No 1 Unknown 11-08 00:00: 00 &lt 2022-0 No 400 11-08 00:00: 00 &lt 2022-0 No 400 11-08 00:00: 00 TAKE 1 2022-0 No 10 TABLET BY 11-08 MOUTH EVERY 00:00: DAY 00 &lt 2022-0 No 40 11-08 00:00: 00 &lt 2022-0 No 300 11-08 00:00: 00 Dose 2022-0 No 1 Unknown 11-08 00:00: 00 &lt 2022-0 No 400 11-08 00:00: 00 &lt 2022-0 No 400 11-08 00:00: 00 TAKE 1 2022-0 No 10 TABLET BY 11-08 MOUTH EVERY 00:00: DAY 00 &lt 2022-0 No 40 11-08 00:00: 00 &lt 2022-0 No 300 11-08 00:00: 00 Dose 2022-0 No 1 Unknown 11-08 00:00: 00 &lt 2022-0 No 400 11-08 00:00: 00 &lt 2022-0 No 400 11-08 00:00: 00 TAKE 3 2022-0 No 20 CAPSULES BY 11-01 MOUTH EVERY 00:00: DAY 00 &lt 2022-0 No 1 11-01 00:00: 00 TAKE 1 2022-0 No 30 CAPSULE 11-01 EVERY DAY 00:00: AT 8AM AND 00 2 PM FOR ADD OR ADHD TAKE 3 2022-0 No 20 CAPSULES BY 7-19 MOUTH EVERY 00:00: DAY 00 &lt 2022-0 No 1 11-01 00:00: 00 TAKE 1 2022-0 No 30 CAPSULE - EVERY DAY 00:00: AT 8AM AND 00 2 PM FOR ADD OR ADHD TAKE 3 2022-0 No 20 CAPSULES BY 7-19 MOUTH EVERY 00:00: DAY 00 &lt 2022-0 No 1 11-01 00:00: 00 TAKE 1 2022-0 No 30 CAPSULE - EVERY DAY 00:00: AT 8AM AND 00 2 PM FOR ADD OR ADHD TAKE 3 2-0 No 20 CAPSULES BY 7-19 MOUTH EVERY 00:00: DAY 00 &lt 2022-0 No 1 11-01 00:00: 00 TAKE 1 2022-0 No 30 CAPSULE - EVERY DAY 00:00: AT 8AM AND 00 2 PM FOR ADD OR ADHD TAKE 3 2-0 No 20 CAPSULES BY 7-19 MOUTH EVERY 00:00: DAY 00 &lt 2022-0 No 1 11-01 00:00: 00 TAKE 1 2022-0 No 30 CAPSULE 11-01 EVERY DAY 00:00: AT 8AM AND 00 2 PM FOR ADD OR ADHD TAKE 3 2-0 No 20 CAPSULES BY 7-19 MOUTH EVERY 00:00: DAY 00 &lt 2022-0 No 1 11-01 00:00: 00 TAKE 1 2022-0 No 30 CAPSULE - EVERY DAY 00:00: AT 8AM AND 00 2 PM FOR ADD OR ADHD TAKE 3 2-0 No 20 CAPSULES BY 7-19 MOUTH EVERY 00:00: DAY 00 &lt 2022-0 No 1 11-01 00:00: 00 TAKE 1 2022-0 No 30 CAPSULE - EVERY DAY 00:00: AT 8AM AND 00 2 PM FOR ADD OR ADHD TAKE 3 2-0 No 20 CAPSULES BY 7-19 MOUTH EVERY 00:00: DAY 00 &lt 2022-0 No 1 11-01 00:00: 00 TAKE 1 2022-0 No 30 CAPSULE - EVERY DAY 00:00: AT 8AM AND 00 2 PM FOR ADD OR ADHD TAKE 3 2-0 No 20 CAPSULES BY 7-19 MOUTH EVERY 00:00: DAY 00 &lt 2022-0 No 1 7-19 00:00: 00 TAKE 1 2022-0 No 30 CAPSULE 7-19 EVERY DAY 00:00: AT 8AM AND 00 [...] 1mg 600 mg 6-10 tablet 00:00: 00 Dose 2022-0 No Unknown 6-10 00:00: 00 omeprazole 2022-0 No 1mg 40 [...] rine 5 mg 6-10 tablet 00:00: 00 Dose 2022-0 No Unknown 6-10 00:00: 00 Dose 2022-0 No Unknown 6-10 00:00: 00 omeprazole 2022-0 No 1mg 40 [...] rine 5 mg 6-10 tablet 00:00: 00 Dose 2022-0 No Unknown 6-10 00:00: 00 Dose 2022-0 No Unknown 6-10 00:00: 00 omeprazole 2022-0 No 1mg 40 [...] rine 5 mg 6-10 tablet 00:00: 00 Dose 2022-0 No Unknown 6-10 00:00: 00 Dose 2022-0 No Unknown 6-10 00:00: 00 omeprazole 2022-0 No 1mg 40 mg 6-10 capsule,del 00:00: ayed 00 release &lt 2022-0 No 6-10 00:00: 00 &lt 2022-0 No 6-10 00:00: 00 &lt 2022-0 No 6-10 00:00: 00 INHALE 2 2022-0 No PUFFS BY 6-10 MOUTH EVERY 00:00: 4-6 HOURS 00 NEEDED FOR WHEEZING Dose 2022-0 No Unknown 6-10 00:00: 00 cyclobenzap 2022-0 No 1mg rine 5 mg 6-10 tablet 00:00: 00 Dose 2022-0 No 50 Unknown 6-10 00:00: 00 Dose 2022-0 No Unknown 6-10 00:00: 00 omeprazole 2022-0 No 1mg 40 [...] 1mg 600 mg 6-10 tablet 00:00: 00 Dose 2022-0 No Unknown 6-10 00:00: 00 omeprazole 2022-0 No 1mg 40 mg 6-10 capsule,del 00:00: ay 00 release &lt 2022-0 No 6-10 00:00: [...] 1mg 40 mg 4-15 capsule 00:00: 00 Dose 2022-0 No Unknown 4-15 00:00: 00 Strattera 2022-0 No 1mg 40 [...] 1mg 1 mg tablet 4-08 00:00: 00 Dose 2022-0 No Unknown [...] carbonate 2-15 300 mg 00:00: capsule 00 Dose 2022-0 No Unknown 2-15 00:00: 00 Seroquel 2022-0 No 5mg 400 mg 2-15 tablet 00:00: 00 benztropine 2022-0 No 1mg 1 mg tablet 2-15 00:00: 00 Prozac 20 2022-0 No 3mg mg capsule 2-15 00:00: 00 lithium 2022-0 No 1mg carbonate 2-15 300 mg 00:00: capsule 00 Dose 2022-0 No Unknown 2-15 00:00: 00 Seroquel 2022-0 No 5mg 400 mg 2-15 tablet 00:00: 00 benztropine 2022-0 No 1mg 1 mg tablet 2-15 00:00: 00 Prozac 20 2022-0 No 3mg mg capsule 2-15 00:00: 00 lithium 2022-0 No 1mg carbonate 2-15 300 mg 00:00: capsule 00 Dose 2022-0 No Unknown 2-15 00:00: 00 Seroquel 2022-0 No 5mg 400 mg 2-15 tablet 00:00: 00 benztropine 2022-0 No 1mg 1 mg tablet 2-15 00:00: 00 Dose 2022-0 No Unknown 2-15 00:00: 00 lithium 2022-0 No 1mg carbonate 2-15 300 mg 00:00: capsule 00 Dose 2022-0 No Unknown 2-15 00:00: 00 Dose 2022-0 No Unknown 2-15 00:00: 00 Dose 2022-0 No Unknown 2-15 00:00: 00 lithium 2022-0 No 1mg carbonate 2-15 300 mg 00:00: capsule 00 Dose 2022-0 No Unknown 2-15 00:00: 00 buspirone 2022-0 No 1mg 15 [...] mg 2-02 capsule,del 00:00: ayed 00 release Dose 2022-0 No Unknown 2-02 00:00: 00 omeprazole 2022-0 No 1mg 40 [...] 12mg 50 mg 1-30 tablet 00:00: 00 Dose 2022-0 No Unknown 1-30 00:00: 00 trazodone 2022-0 No 12mg 50 [...] 600 mg 2-31 tablet 00:00: 00 cyclobenzap 2020- No 1mg rine 7.5 mg 2-31 tablet 00:00: 00 Dose 2020- No Unknown 2-31 00:00: 00 Dose 2020- No Unknown 2-31 00:00: 00 cyclobenzap 2020-04 No 1mg rine 7.5 mg 2-31 tablet 00:00: 00 Dose 2020- No Unknown 2-31 00:00: 00 Dose 2020- No Unknown 2-31 00:00: 00 cyclobenzap 2020-04 No 1mg rine 7.5 mg 2-31 tablet 00:00: 00 Dose 2020- No Unknown 2-31 00:00: 00 Dose 2020- No Unknown 2-31 00:00: 00 Dose 2020- No Unknown 2-31 00:00: 00 Dose 2020- No Unknown 2-31 00:00: 00 Dose 2020- No Unknown 2-31 00:00: 00 Dose 2020- No Unknown 2-31 00:00: 00 Dose 2020- No 50 Unknown 2-31 00:00: 00 ibuprofen 2020-04 No 1mg 600 mg 2-31 tablet 00:00: 00 cyclobenzap 2020-04 No 1mg rine 7.5 mg 2-31 tablet 00:00: 00 levothyroxi 2020-04 No 1mcg ne 150 mcg 2-31 tablet 00:00: 00 ibuprofen 2020- No 1mg 600 mg 2-31 tablet 00:00: 00 cyclobenzap 2020-04 No 1mg rine 7.5 mg 2-31 tablet 00:00: 00 levothyroxi 2020-04 No 1mcg ne 150 mcg 2-31 tablet 00:00: 00 ibuprofen 2020- No 1mg 600 mg 2-31 tablet 00:00: 00 cyclobenzap 2020-04 No 1mg rine 7.5 mg 2-31 tablet 00:00: 00 Dose 2020- No Unknown 2-31 00:00: 00 ibuprofen 2020- No 1mg 600 mg 2-31 tablet 00:00: 00 cyclobenzap 2020-04 No 1mg rine 7.5 mg 2-31 tablet 00:00: 00 levothyroxi 2020-04 No 1mcg ne 150 mcg 2-31 tablet 00:00: 00 ibuprofen 2020- No 1mg 600 mg 2-16 tablet 00:00: 00 cyclobenzap 2020- No 1mg rine 7.5 mg 2-16 tablet 00:00: 00 ibuprofen 2020- No 1mg 600 mg 2-16 tablet 00:00: 00 cyclobenzap 2020- No 1mg rine 7.5 mg 2-16 tablet 00:00: 00 ibuprofen 2020-1 No 1mg 600 mg 2-16 tablet 00:00: 00 cyclobenzap 2020- No 1mg rine 7.5 mg 2-16 tablet 00:00: 00 ibuprofen 2020- No 1mg 600 mg 2-16 tablet 00:00: 00 cyclobenzap 2020- No 1mg rine 7.5 mg 2-16 tablet 00:00: 00 ibuprofen 2020-1 No 1mg 600 mg 2-16 tablet 00:00: 00 cyclobenzap 2020- No 1mg rine 7.5 mg 2-16 tablet 00:00: 00 ibuprofen 2020-1 No 1mg 600 mg 2-16 tablet 00:00: 00 cyclobenzap 2020-1 No 1mg rine 7.5 mg 2-16 tablet 00:00: 00 ibuprofen 2020-1 No 1mg 600 mg 2-16 tablet 00:00: 00 cyclobenzap 2020- No 1mg rine 7.5 mg 2-16 tablet 00:00: 00 ibuprofen 2020-1 No 1mg 600 mg 2-16 tablet 00:00: 00 cyclobenzap 2020-1 No 1mg rine 7.5 mg 2-16 tablet 00:00: 00 ibuprofen 2020-1 No 1mg 600 mg 2-16 tablet 00:00: 00 cyclobenzap 2020- No 1mg rine 7.5 mg 2-16 tablet 00:00: 00 sumatriptan 2020- No 1mg 50 mg 2-10 tablet 00:00: 00 sumatriptan 2020- No 1mg 50 mg 2-10 tablet 00:00: 00 sumatriptan 2020-1 No 1mg 50 mg 2-10 tablet 00:00: 00 sumatriptan 2020- No 1mg 50 mg 2-10 tablet 00:00: 00 Dose 2020-1 No Unknown 2-10 00:00: 00 sumatriptan 2020-1 No 1mg 50 [...] 2020-1 No Unknown 2-08 00:00: 00 Seroquel 2020- No 5mg 400 mg 2-08 tablet 00:00: 00 Prozac 20 2020- No 3mg mg capsule 2-08 00:00: 00 lithium 2020-1 No 1mg carbonate 2-08 300 mg 00:00: capsule 00 Dose 2020- No Unknown 2-08 00:00: 00 Seroquel 2020- No 5mg 400 mg 2-08 tablet 00:00: 00 Prozac 20 2020- No 3mg mg capsule 2-08 00:00: 00 lithium 2020- No 1mg carbonate 2-08 300 mg 00:00: capsule 00 Dose 2020- No Unknown 2-08 00:00: 00 Seroquel 2020- No 5mg 400 mg 2-08 tablet 00:00: 00 Prozac 20 2020-04 No 3mg mg capsule 2-08 00:00: 00 lithium 2020- No 1mg carbonate 2-08 300 mg 00:00: capsule 00 Dose 2020- No Unknown 2-08 00:00: 00 Seroquel 2020-04 No 5mg 400 mg 2-08 tablet 00:00: 00 Prozac 20 2020-04 No 3mg mg capsule 2-08 00:00: 00 lithium 2020- No 1mg carbonate 2-08 300 mg 00:00: capsule 00 Dose 2020- No Unknown 2-07 00:00: 00 gemfibrozil 2020- No 1mg 600 mg 2-07 tablet 00:00: 00 Dose 2020- No Unknown 2-07 00:00: 00 levothyroxi 2020- No 1mcg ne 150 mcg 2-07 tablet 00:00: 00 Dose 2020-1 No Unknown 2-07 00:00: 00 gabapentin 2020- No 1mg 300 mg 2-07 capsule 00:00: 00 Dose 2020- No Unknown 2-07 00:00: 00 gemfibrozil 2020- No 1mg 600 mg 2-07 tablet 00:00: 00 Dose 2020- No Unknown 2-07 00:00: 00 levothyroxi 2020- No 1mcg ne 150 mcg 2-07 tablet 00:00: 00 Dose 2020-1 No Unknown 2-07 00:00: 00 gabapentin 2020-1 No 1mg 300 mg 2-07 capsule 00:00: 00 Dose 2020-1 No Unknown 2-07 00:00: 00 gemfibrozil 2020-1 No 1mg 600 mg 2-07 tablet 00:00: 00 Dose 2020-1 No Unknown 2-07 00:00: 00 levothyroxi 2020- No 1mcg ne 150 mcg 2-07 tablet 00:00: 00 Dose 2020-1 No Unknown 2-07 00:00: 00 gabapentin 2020-1 No 1mg 300 mg 2-07 capsule 00:00: 00 Dose 2020-1 No Unknown 2-07 00:00: 00 gemfibrozil 2020- No 1mg 600 mg 2-07 tablet 00:00: 00 Dose 2020-1 No Unknown 2-07 00:00: 00 levothyroxi 2020- No 1mcg ne 150 mcg 2-07 tablet 00:00: 00 Dose 2020-1 No Unknown 2-07 00:00: 00 gabapentin 2020-1 No 1mg 300 mg 2-07 capsule 00:00: 00 Dose 2020-1 No Unknown 2-07 00:00: 00 levothyroxi 2020- No 1mcg ne 150 mcg 2-07 tablet 00:00: 00 Dose 2020-1 No Unknown 2-07 00:00: 00 Dose 2020-1 No Unknown 2-07 00:00: 00 Dose 2020-1 No Unknown 2-07 00:00: 00 gabapentin 2020-1 No 1mg 300 mg 2-07 capsule 00:00: 00 amlodipine 2020-1 No 1mg 5 mg tablet 2-07 00:00: 00 gemfibrozil 2020-1 No 1mg 600 mg 2-07 tablet 00:00: 00 Dose 2020-1 No Unknown 2-07 00:00: 00 levothyroxi 2020- No 1mcg ne 150 mcg 2-07 tablet 00:00: 00 Dose 2020-1 No Unknown 2-07 00:00: 00 gabapentin 2020-1 No 1mg 300 mg 2-07 capsule 00:00: 00 amlodipine 2020-1 No 1mg 5 mg tablet 2-07 00:00: 00 gemfibrozil 2021-1 No 1mg 600 mg 2-07 tablet 00:00: 00 Dose 2020- No Unknown 2-07 00:00: 00 levothyroxi 2020-04 No 1mcg ne 150 mcg 2-07 tablet 00:00: 00 Dose 2020- No Unknown 2-07 00:00: 00 gabapentin 2020-04 No 1mg 300 mg 2-07 capsule 00:00: 00 amlodipine 2020-04 No 1mg 5 mg tablet 2-07 00:00: 00 gemfibrozil 2020-04 No 1mg 600 mg 2-07 tablet 00:00: 00 Dose 2020-04 No Unknown 2-07 00:00: 00 levothyroxi 2020-04 No 1mcg ne 150 mcg 2-07 tablet 00:00: 00 Dose 2020-04 No Unknown 2-07 00:00: 00 gabapentin 2020-04 No 1mg 300 mg 2-07 capsule 00:00: 00 Dose 2020-04 No Unknown 2-07 00:00: 00 gemfibrozil 2020-04 No 1mg 600 mg 2-07 tablet 00:00: 00 Dose 2020-04 No Unknown 2-07 00:00: 00 levothyroxi 2020-04 No 1mcg ne 150 mcg 2-07 tablet 00:00: 00 Dose 2020-04 No Unknown 2-07 00:00: 00 gabapentin 2020-04 No 1mg 300 mg 2-07 capsule 00:00: 00 Dose 2020-04 No Unknown 1-12 00:00: 00 Dose 2020- No Unknown 1-12 00:00: 00 Dose 2020- No Unknown 1-12 00:00: 00 Dose 2020- No Unknown 1-12 00:00: 00 Dose 2020- No Unknown 1-12 00:00: 00 Dose 2020- No Unknown 1-12 00:00: 00 Dose 2020- No Unknown 1-12 00:00: 00 Dose 2020- No Unknown 1-12 00:00: 00 Dose 2020- No Unknown 1-12 00:00: 00 Symbicort 2020-04 No 2mcg/ac 160 mcg-4.5 1-08 tuation mcg/actuati 00:00: on HFA 00 aerosol inhaler Dose 2020-04 No Unknown 1-08 00:00: 00 Symbicort 2020- No 2mcg/ac 160 mcg-4.5 1-08 tuation mcg/actuati 00:00: on HFA aerosol inhaler Dose 2020- No Unknown 1-08 00:00: 00 Symbicort 2020-1 No 2mcg/ac 160 mcg-4.5 1-08 tuation mcg/actuati 00:00: on HF aerosol inhaler Dose 2020- No Unknown 1-08 00:00: 00 Symbicort 2020- No 2mcg/ac 160 mcg-4.5 1-08 tuation mcg/actuati 00:00: on HFA aerosol inhaler Dose 2020- No Unknown 1-08 00:00: 00 Dose 2020- No Unknown 1-08 00:00: 00 Symbicort 2020- No 2mcg/ac 160 mcg-4.5 1-08 tuation mcg/actuati 00:00: on HFA aerosol inhaler Dose 2020- No Unknown 1-08 00:00: 00 Symbicort 2020- No 2mcg/ac 160 mcg-4.5 1-08 tuation mcg/actuati 00:00: on HFA aerosol inhaler Dose 2020- No Unknown 1-08 00:00: 00 Symbicort 2020- No 2mcg/ac 160 mcg-4.5 1-08 tuation mcg/actuati 00:00: on HFA aerosol inhaler Dose 2020- No Unknown 1-08 00:00: 00 Symbicort 2020- No 2mcg/ac 160 mcg-4.5 1-08 tuation mcg/actuati 00:00: on HFA aerosol inhaler Dose 2020- No Unknown 1-08 00:00: 00 buspirone 2020- No 1mg 10 mg 0-11 tablet 00:00: 00 Seroquel 2020- No 5mg 400 mg 0-11 tablet 00:00: 00 Prozac 20 2020- No 3mg mg capsule 0-11 00:00: 00 lithium 2020-1 No 1mg carbonate 0-11 300 mg 00:00: capsule 00 buspirone 2020- No 1mg 10 mg 0-11 tablet 00:00: 00 Seroquel 2020-1 No 5mg 400 mg 0-11 tablet 00:00: 00 Prozac 20 2020-1 No 3mg mg capsule 0-11 00:00: 00 lithium 1-1 No 1mg carbonate 0-11 300 mg 00:00: [...] 3mg mg capsule 0-11 00:00: 00 lithium 1-1 No 1mg carbonate 0-11 300 mg 00:00: capsule 00 buspirone 2020-1 No 1mg 10 mg 0-11 tablet 00:00: 00 Seroquel 2020-1 No 5mg 400 mg 0-11 tablet 00:00: 00 Prozac 20 2020-1 No 3mg mg capsule 0-11 00:00: 00 lithium 2020-1 No 1mg carbonate 0-11 300 mg 00:00: capsule 00 buspirone 2020-1 No 1mg 10 mg 0-11 tablet 00:00: 00 Seroquel 2020- No 5mg 400 mg 0-11 tablet 00:00: 00 Prozac 20 2020- No 3mg mg capsule 0-11 00:00: 00 lithium 2020- No 1mg carbonate 0-11 300 mg 00:00: capsule 00 buspirone 2020- No 1mg 10 mg 0-11 tablet 00:00: 00 Seroquel 2020- No 5mg 400 mg 0-11 tablet 00:00: 00 Prozac 20 2020- No 3mg mg capsule 0-11 00:00: 00 lithium 2020- No 1mg carbonate 0-11 300 mg 00:00: capsule 00 Symbicort 2020-04 No 2mcg/ac 160 mcg-4.5 0-06 tuation mcg/actuati 00:00: on HFA 00 aerosol inhaler ProAir HFA 2020-04 No 2mcg/ac 90 0-06 tuation mcg/actuati 00:00: on aerosol 00 inhaler lisinopril 2020-04 No 1mg 10 mg 0-06 tablet 00:00: 00 Singulair 2020-04 No 1mg 10 mg 0-06 tablet 00:00: 00 ibuprofen 2020- No 1mg 600 mg 0-06 tablet 00:00: 00 Symbicort 2020-04 No 2mcg/ac 160 mcg-4.5 0-06 tuation mcg/actuati 00:00: on HFA 00 aerosol inhaler ProAir HFA 2020-04 No 2mcg/ac 90 0-06 tuation mcg/actuati 00:00: on aerosol 00 inhaler lisinopril 2020- No 1mg 10 mg 0-06 tablet 00:00: 00 Singulair 2020- No 1mg 10 mg 0-06 tablet 00:00: 00 ibuprofen 2020- No 1mg 600 mg 0-06 tablet 00:00: 00 Symbicort 2020-04 No 2mcg/ac 160 mcg-4.5 0-06 tuation mcg/actuati 00:00: on HFA 00 aerosol inhaler ProAir HFA 2020-04 No 2mcg/ac 90 0-06 tuation mcg/actuati 00:00: on aerosol 00 inhaler lisinopril 2020- No 1mg 10 mg 0-06 tablet 00:00: 00 Dose 2020-1 No Unknown 0-06 00:00: 00 ibuprofen 2020-1 No 1mg 600 mg 0-06 tablet 00:00: 00 Symbicort 2020-1 No 2mcg/ac 160 mcg-4.5 0-06 tuation mcg/actuati 00:00: on HFA 00 aerosol inhaler Dose 2020- No Unknown 0-06 00:00: 00 lisinopril 2020- No 1mg 10 mg 0-06 tablet 00:00: 00 Dose 2020-1 No Unknown 0-06 00:00: 00 ibuprofen 2020-1 No 1mg 600 mg 0-06 tablet 00:00: 00 Symbicort 2020- No 2mcg/ac 160 mcg-4.5 0-06 tuation mcg/actuati 00:00: on HFA 00 aerosol inhaler Dose 2020- No Unknown 0-06 00:00: 00 lisinopril 2020- No 1mg 10 mg 0-06 tablet 00:00: 00 ibuprofen 2020-1 No 1mg 600 mg 0-06 tablet 00:00: 00 Dose 2020-1 No Unknown 0-06 00:00: 00 Symbicort 2020-1 No 2mcg/ac 160 mcg-4.5 0-06 tuation mcg/actuati 00:00: on HFA 00 aerosol inhaler ProAir HFA 2020-04 No 2mcg/ac 90 0-06 tuation mcg/actuati 00:00: on aerosol 00 inhaler lisinopril 2020- No 1mg 10 mg 0-06 tablet 00:00: 00 Singulair 2020-1 No 1mg 10 mg 0-06 tablet 00:00: 00 ibuprofen 2020-1 No 1mg 600 mg 0-06 tablet 00:00: 00 Symbicort 2020-1 No 2mcg/ac 160 mcg-4.5 0-06 tuation mcg/actuati 00:00: on HFA 00 aerosol inhaler ProAir HFA 2020-04 No 2mcg/ac 90 0-06 tuation mcg/actuati 00:00: on aerosol 00 inhaler lisinopril 2020- No 1mg 10 mg 0-06 tablet 00:00: 00 Singulair 2020-1 No 1mg 10 mg 0-06 tablet 00:00: 00 ibuprofen 2020-1 No 1mg 600 mg 0-06 tablet 00:00: 00 Symbicort 2020-1 No 2mcg/ac 160 mcg-4.5 0-06 tuation mcg/actuati 00:00: on HFA 00 aerosol inhaler ProAir HFA 2020-04 No 2mcg/ac 90 0-06 tuation mcg/actuati 00:00: on aerosol 00 inhaler lisinopril 2020-1 No 1mg 10 mg 0-06 tablet 00:00: 00 Singulair 2020-1 No 1mg 10 mg 0-06 tablet 00:00: 00 ibuprofen 2020-1 No 1mg 600 mg 0-06 tablet 00:00: 00 Symbicort 2020-1 No 2mcg/ac 160 mcg-4.5 0-06 tuation mcg/actuati 00:00: on HFA 00 aerosol inhaler ProAir HFA 2020-04 No 2mcg/ac 90 0-06 tuation mcg/actuati 00:00: on aerosol 00 inhaler lisinopril 2020-1 No 1mg 10 mg 0-06 tablet 00:00: 00 Singulair 2020-1 No 1mg 10 mg 0-06 tablet 00:00: 00 ibuprofen 2020-1 No 1mg 600 mg 0-06 tablet 00:00: 00 Dose 1-0 No Unknown 916 00:00: 00 Dose 1-0 No Unknown 916 00:00: 00 Dose 1-0 No Unknown 916 00:00: 00 Dose 1-0 No Unknown 16 00:00: 00 Dose 1-0 No Unknown 916 00:00: 00 Dose 1-0 No Unknown 16 00:00: 00 Dose 1-0 No Unknown 16 00:00: 00 Dose 1-0 No Unknown 16 00:00: 00 Dose 1-0 No Unknown 12-30 00:00: 00 Dose 1-0 No Unknown 12-30 00:00: 00 Dose 1-0 No Unknown 12-30 00:00: 00 Dose 1-0 No Unknown 12-30 00:00: 00 Dose 2021-0 No Unknown 916 00:00: 00 Dose 2021-0 No Unknown 916 00:00: 00 Dose 2021-0 No Unknown 916 00:00: 00 Dose 2021-0 No Unknown 916 00:00: 00 Dose 2021-0 No Unknown 16 00:00: 00 Dose 2021-0 No Unknown 16 00:00: 00 Dose 2021-0 No Unknown 916 00:00: 00 Dose 2021-0 No Unknown 916 00:00: 00 Dose 2021-0 No Unknown 916 00:00: 00 Dose 2021-0 No Unknown 12-30 00:00: 00 Dose 2021-0 No Unknown 16 00:00: 00 Dose 2021-0 No Unknown 12-30 00:00: 00 Dose 2021-0 No Unknown 12-30 00:00: 00 Dose 2021-0 No Unknown 12-30 00:00: 00 Dose 2021-0 No Unknown 916 00:00: 00 Dose 2021-0 No Unknown 916 00:00: 00 Dose 2021-0 No Unknown 9 00:00: 00 Dose 2021-0 No Unknown 916 00:00: 00 Dose 2021-0 No Unknown 916 00:00: 00 Dose 2021-0 No Unknown 916 00:00: 00 Dose 2021-0 No Unknown 12-30 00:00: 00 Dose 2021-0 No Unknown 16 00:00: 00 Dose 2021-0 No Unknown 916 00:00: 00 Dose 2021-0 No Unknown 916 00:00: 00 Dose 2021-0 No Unknown 916 00:00: 00 Dose 2021-0 No Unknown 916 00:00: 00 Dose 2021-0 No Unknown 916 00:00: 00 Dose 2021-0 No Unknown 916 00:00: 00 Dose 2021-0 No Unknown 916 00:00: 00 Dose 2021-0 No Unknown 916 00:00: 00 Dose 2021-0 No Unknown 916 00:00: 00 Dose 2021-0 No Unknown 916 00:00: 00 Dose 2021-0 No Unknown 916 00:00: 00 Dose 2021-0 No Unknown 9-16 00:00: 00 Dose 2021-0 No Unknown 9-16 00:00: 00 Dose 2021-0 No Unknown 9-16 00:00: 00 Dose 2021-0 No Unknown 9-16 00:00: 00 Dose 2021-0 No Unknown 916 00:00: 00 Dose 2021-0 No Unknown 916 00:00: 00 Dose 2021-0 No Unknown 9-16 00:00: 00 Dose 2021-0 No Unknown 916 00:00: 00 Dose 2021-0 No Unknown 916 00:00: 00 Dose 2021-0 No Unknown 9 00:00: 00 Dose 2021-0 No Unknown 9 00:00: 00 Dose 2021-0 No Unknown 9 00:00: 00 Dose 2021-0 No Unknown 9 00:00: 00 Dose 2021-0 No Unknown 9 00:00: 00 Dose 2021-0 No Unknown 9- 00:00: 00 Dose 2021-0 No Unknown 9- 00:00: 00 Dose 2021-0 No Unknown 9- 00:00: 00 Dose 2021-0 No Unknown 9- 00:00: 00 Dose 2021-0 No Unknown 9- 00:00: 00 Dose 2021-0 No Unknown 9- 00:00: 00 Dose 2021-0 No Unknown 9- 00:00: 00 Dose 2021-0 No Unknown 9- 00:00: 00 Dose 2021-0 No Unknown 9- 00:00: 00 Dose 2021-0 No Unknown 9- 00:00: 00 Dose 2021-0 No Unknown 9- 00:00: 00 Dose 2021-0 No Unknown 9- 00:00: 00 Dose 2021-0 No Unknown 9- 00:00: 00 Dose 2021-0 No Unknown 9- 00:00: 00 Dose 2021-0 No Unknown 9- 00:00: 00 Dose 2021-0 No Unknown 9- 00:00: 00 Dose 2021-0 No Unknown 9- 00:00: 00 Dose 2021-0 No Unknown 9- 00:00: 00 Dose 2021-0 No Unknown 9- 00:00: 00 Dose 2021-0 No Unknown 9- 00:00: 00 Dose 2021-0 No Unknown 9-10 00:00: 00 Dose 2021-0 No Unknown 9-10 00:00: 00 omeprazole 2021-0 No 1mg 40 mg 8-19 capsule,del 00:00: ayed 00 release omeprazole 2021-0 No 1mg 40 mg 8-19 capsule,del 00:00: ayed 00 release omeprazole 2021-0 No 1mg 40 mg 8-19 capsule,del 00:00: ayed 00 release omeprazole 2021-0 No 1mg 40 mg 8-19 capsule,del 00:00: ayed 00 release omeprazole 2021-0 No 1mg 40 mg 8-19 capsule,del 00:00: ayed 00 release omeprazole 2021-0 No 1mg 40 mg 8-19 capsule,del 00:00: ayed 00 release omeprazole 2021-0 No 1mg 40 mg 8-19 capsule,del 00:00: ayed 00 release omeprazole 2021-0 No 1mg 40 mg 8-19 capsule,del 00:00: ayed 00 release omeprazole 2021-0 No 1mg 40 mg 8-19 capsule,del 00:00: [...] Prozac 20 2021-0 No 3mg mg capsule 8-06 00:00: 00 lithium 2021-0 No 1mg carbonate 8-06 300 mg 00:00: capsule 00 buspirone 2021-0 No 1mg 10 mg 8-06 tablet 00:00: 00 Seroquel 2021-0 No 5mg 400 mg 8-06 tablet 00:00: 00 Prozac 20 2021-0 No 3mg mg capsule 8-06 00:00: 00 lithium 2021-0 No 1mg carbonate 8-06 300 mg 00:00: capsule 00 buspirone 2021-0 No 1mg 10 mg 8-06 tablet 00:00: 00 Seroquel 2021-0 No 5mg 400 mg 8-06 tablet 00:00: 00 Prozac 20 2021-0 No 3mg mg capsule 11-19 00:00: 00 lithium 2021-0 No 1mg carbonate 8-06 300 mg 00:00: capsule 00 buspirone 2021-0 No 1mg 10 mg 8-06 tablet 00:00: 00 Seroquel 2021-0 No 5mg 400 mg 8-06 tablet 00:00: 00 Prozac 20 2021-0 No 3mg mg capsule 11-19 00:00: 00 lithium 2021-0 No 1mg carbonate 8-06 300 mg 00:00: capsule 00 buspirone 2021-0 No 1mg 10 mg 8-06 tablet 00:00: 00 Seroquel 2021-0 No 5mg 400 mg 8-06 tablet 00:00: 00 Prozac 20 2021-0 No 3mg mg capsule 11-19 00:00: 00 lithium 2021-0 No 1mg carbonate 8-06 300 mg 00:00: capsule 00 buspirone 2021-0 No 1mg 10 mg 8-06 tablet 00:00: 00 Seroquel 2021-0 No 5mg 400 mg 8-06 tablet 00:00: 00 Prozac 20 2021-0 No 3mg mg capsule 11-19 00:00: 00 lithium 2021-0 No 1mg carbonate 8-06 300 mg 00:00: capsule 00 buspirone 2021-0 No 1mg 10 mg 8-06 tablet 00:00: 00 Seroquel 2021-0 No 5mg 400 mg 8-06 tablet 00:00: 00 Prozac 20 2021-0 No 3mg mg capsule 11-19 00:00: 00 lithium 2021-0 No 1mg carbonate 8-06 300 mg 00:00: capsule 00 buspirone 2021-0 No 1mg 10 mg 8-06 tablet 00:00: 00 Seroquel 2021-0 No 5mg 400 mg 8-06 tablet 00:00: 00 Prozac 20 2021-0 No 3mg mg capsule 8-06 00:00: 00 lithium 2021-0 No 1mg carbonate 8-06 300 mg 00:00: capsule 00 Dose 2021-0 No Unknown 7-23 00:00: 00 Dose 2021-0 No Unknown 7-23 00:00: 00 Dose 2021-0 No Unknown 7-23 00:00: 00 Dose 2021-0 No Unknown 7- 00:00: 00 Dose 2021-0 No Unknown 7-23 00:00: 00 Dose 2021-0 No Unknown 7-23 00:00: 00 Dose 2021-0 No Unknown 7- 00:00: 00 Dose 2021-0 No Unknown 7- 00:00: 00 Dose 2021-0 No Unknown 7-23 00:00: 00 Dose 1-0 No Unknown 7- 00:00: 00 Dose 1-0 No Unknown 7- 00:00: 00 Dose 1-0 No Unknown 7- 00:00: 00 Dose 2021-0 No Unknown 7- 00:00: 00 Dose 1-0 No Unknown 7- 00:00: 00 Dose 1-0 No Unknown 7- 00:00: 00 Dose 2021-0 No Unknown 7- 00:00: 00 Dose 1-0 No Unknown 7-23 00:00: 00 Dose 1-0 No Unknown 7-23 00:00: 00 buspirone 1-0 No 1mg 10 mg 6-22 tablet 00:00: [...] rine 10 mg 6-18 tablet 00:00: 00 Seroquel 2021-0 No 5mg 400 mg 6-18 tablet 00:00: 00 Dose 2021-0 No Unknown 6-18 00:00: 00 Prozac 20 2021-0 No 3mg [...] Prozac 20 2021-0 No 3mg mg capsule 6 00:00: 00 lithium 2021-0 No 1mg carbonate 6-07 300 mg 00:00: capsule 00 Seroquel 2021-0 No 5mg 400 mg 6-07 tablet 00:00: 00 Dose 2021-0 No Unknown 6-07 00:00: 00 Prozac 20 2021-0 No 3mg mg capsule 09-20 00:00: 00 lithium 2021-0 No 1mg carbonate 6-07 300 mg 00:00: capsule 00 hydroxyzine 2021-0 No 1mg HCl 10 mg 6-07 tablet 00:00: 00 Seroquel 2021-0 No 5mg 400 mg 6-07 tablet 00:00: 00 Prozac 20 2021-0 No 3mg mg capsule 09-20 00:00: 00 lithium 2021-0 No 1mg carbonate 6-07 300 mg 00:00: capsule 00 hydroxyzine 2021-0 No 1mg HCl 10 mg 6-07 tablet 00:00: 00 Seroquel 2021-0 No 5mg 400 mg 6-07 tablet 00:00: 00 Prozac 20 2021-0 No 3mg mg capsule 09-20 00:00: 00 lithium 2021-0 No 1mg carbonate 6-07 300 mg 00:00: capsule 00 hydroxyzine 2021-0 No 1mg HCl 10 mg 6-07 tablet 00:00: 00 Seroquel 2021-0 No 5mg 400 mg 6-07 tablet 00:00: 00 Prozac 20 2021-0 No 3mg mg capsule 607 00:00: 00 lithium 2021-0 No 1mg carbonate 6-07 300 mg 00:00: capsule 00 hydroxyzine 2021-0 No 1mg HCl 10 mg 6-07 tablet 00:00: 00 Seroquel 2021-0 No 5mg 400 mg 6-07 tablet 00:00: 00 Prozac 20 2021-0 No 3mg mg capsule 607 00:00: 00 lithium 2021-0 No 1mg carbonate [...] mg 5-26 tablet 00:00: 00 Prozac 20 2020-0 No 3mg mg capsule 09-08 00:00: 00 lithium 1-0 No 1mg carbonate 5-26 300 mg 00:00: capsule 00 buspirone 5 2020-0 No 1mg mg tablet 09-08 00:00: 00 Seroquel 1-0 No 1mg 400 mg 5-26 tablet 00:00: 00 Prozac 20 2020-0 No 3mg mg capsule 09-08 00:00: 00 lithium 1-0 No 1mg carbonate 5-26 300 mg 00:00: capsule 00 buspirone 5 2020-0 No 1mg mg tablet 09-08 00:00: 00 Seroquel 1-0 No 1mg 400 mg 5-26 tablet 00:00: 00 Prozac 20 2020-0 No 3mg mg capsule 09-08 00:00: 00 lithium 1-0 No 1mg carbonate 5-26 300 mg 00:00: capsule 00 buspirone 5 2020-0 No 1mg mg tablet 09-08 00:00: 00 Seroquel 2021-0 No 1mg 400 mg 5-26 tablet 00:00: 00 Prozac 20 2020-0 No 3mg mg capsule 09-08 00:00: 00 lithium 1-0 No 1mg carbonate 5-26 300 mg 00:00: capsule 00 buspirone 5 2020-0 No 1mg mg tablet 09-08 00:00: 00 Seroquel 1-0 No 1mg 400 mg 5-26 tablet 00:00: 00 Prozac 20 2020-0 No 3mg mg capsule 09-08 00:00: 00 lithium 1-0 No 1mg carbonate 5-26 300 mg 00:00: capsule 00 buspirone 5 2020-0 No 1mg mg tablet 09-08 00:00: 00 Seroquel 1-0 No 1mg 400 mg 5-26 tablet 00:00: 00 buspirone 5 2020-0 No 1mg mg tablet 09-08 00:00: 00 Seroquel 1-0 No 1mg 400 mg 5-26 tablet 00:00: 00 Prozac 20 2020-0 No 3mg mg capsule 09-08 00:00: 00 lithium 1-0 No 1mg carbonate 5-26 300 mg 00:00: capsule 00 Prozac 20 2020-0 No 3mg mg capsule 09-08 00:00: 00 lithium 1-0 No 1mg carbonate 5-26 300 mg 00:00: capsule 00 buspirone 5 2020-0 No 1mg mg tablet 09-08 00:00: 00 Seroquel 1-0 No 1mg 400 mg 5- tablet 00:00: 00 Prozac 20 2020-0 No 3mg mg capsule 09-08 00:00: 00 lithium 1-0 No 1mg carbonate 5-26 300 mg 00:00: capsule 00 buspirone 5 2020-0 No 1mg mg tablet 09-08 00:00: 00 Seroquel 1-0 No 1mg 400 mg 5-26 tablet 00:00: 00 Prozac 20 1-0 No 3mg mg capsule 09-08 00:00: 00 lithium 2021-0 No 1mg carbonate 5-26 300 mg 00:00: capsule 00 Seroquel 1-0 No 1mg 400 mg 5- tablet 00:00: 00 Prozac 20 1-0 No 3mg mg capsule 5- 00:00: 00 lithium 1-0 No 1mg carbonate 5-23 300 mg 00:00: capsule 00 Seroquel 1-0 No 1mg 400 mg 5-23 tablet 00:00: [...] 1mg 0.5 mg 5-20 tablet 00:00: 00 lisinopril 2021-0 [...] 5 mg oral 00:00: (7) suspension 00 montelukast 2021-0 No 1mg 10 mg 5-20 tablet 00:00: 00 Dose 2021-0 No Unknown 5-20 00:00: 00 lisinopril 2021-0 No 1mg 10 mg 5-20 tablet 00:00: 00 levothyroxi 2021-0 No 1mcg ne 150 mcg 5-20 tablet 00:00: 00 ibuprofen 2021-0 No [...] 5 mg oral 00:00: (7) suspension 00 levothyroxi 2021-0 No 1mcg ne 150 mcg 5-20 tablet 00:00: 00 Dose 2021-0 No Unknown 5-20 00:00: 00 lisinopril 2021-0 No 1mg 10 [...] 5 mg oral 00:00: (7) suspension 00 Dose 2021-0 No Unknown 5-20 00:00: 00 gabapentin 2021-0 No 1mg 300 mg 5-20 capsule 00:00: 00 gabapentin 2021-0 No 1mg 300 mg 5-20 capsule 00:00: 00 lisinopril 2021-0 No 1mg 10 [...] 5 mg oral 00:00: (7) suspension 00 Dose 2021-0 No Unknown 5-20 00:00: [...] 2021-0 No Unknown 5-20 00:00: 00 montelukast 1-0 No 1mg 10 mg 5-20 tablet 00:00: 00 lorazepam 1-0 No 1mg 0.5 mg 5-20 tablet 00:00: 00 montelukast 1-0 No 1mg 10 mg 5-20 tablet 00:00: 00 Dose 1-0 No Unknown 5-20 00:00: 00 levothyroxi 1-0 No 1mcg ne 150 mcg 5-20 tablet 00:00: 00 levothyroxi 1-0 No 1mcg ne 150 mcg 5-20 tablet 00:00: 00 Dose 2021-0 No Unknown 5-20 00:00: 00 Dose 1-0 No Unknown 5-20 00:00: 00 gabapentin 1-0 No 1mg 300 mg 5-20 capsule 00:00: 00 gabapentin 1-0 No 1mg 300 mg 5-20 capsule 00:00: 00 Dose 1-0 No Unknown 5-20 00:00: 00 phenytoin 1-0 No 1(21)/7 100 mg/4 mL 5-20 5 mg oral 00:00: (7) suspension 00 phenytoin 2020-0 No 1(21)/7 100 mg/4 mL 5-20 5 mg oral 00:00: (7) suspension 00 phenytoin 1-0 No 1(21)/7 100 mg/4 mL 5-20 5 mg oral 00:00: (7) suspension 00 Dose 2020-0 No Unknown 5-20 00:00: 00 montelukast 1-0 No 1mg 10 mg 5-20 tablet 00:00: 00 FLUTICASONE 2019- Yes [id number] SHAKE U nivers PROPIONATE 0-15 LIQUID AND ity of 50 00:00: USE 2 [place] mcg/actuati 00 SPRAYS IN Med ical on nasal EACH Branch spray NOSTRIL DAILY FLUTICASONE 2019- Yes [id number] SHAKE U nivers PROPIONATE 0-15 LIQUID AND ity of 50 00:00: USE 2 [place] mcg/actuati 00 SPRAYS IN Med ical on nasal EACH Branch spray NOSTRIL DAILY FLUTICASONE 2019- Yes [id number] SHAKE U nivers PROPIONATE 0-15 LIQUID AND ity of 50 00:00: USE 2 [place] mcg/actuati 00 SPRAYS IN Med ical on nasal EACH Branch spray NOSTRIL DAILY FLUTICASONE 2019-04 Yes [id number] SHAKE U nivers PROPIONATE 0-15 LIQUID AND ity of 50 00:00: USE 2 [place] mcg/actuati 00 SPRAYS IN Med ical on nasal EACH Branch spray NOSTRIL DAILY FLUTICASONE 2019-04 Yes [id number] SHAKE U nivers PROPIONATE 0-15 LIQUID AND ity of 50 00:00: USE 2 [place] mcg/actuati 00 SPRAYS IN Med ical on nasal EACH Branch spray NOSTRIL DAILY FLUTICASONE 2019-04 Yes [id number] SHAKE U nivers PROPIONATE 0-15 LIQUID AND ity of 50 00:00: USE 2 [place] mcg/actuati 00 SPRAYS IN Med ical on nasal EACH Branch spray NOSTRIL DAILY FLUTICASONE 2019-04 Yes [id number] SHAKE U nivers PROPIONATE 0-15 LIQUID AND ity of 50 00:00: USE 2 [place] mcg/actuati 00 SPRAYS IN Med ical on nasal EACH Branch spray NOSTRIL DAILY FLUTICASONE 2019-04 Yes [id number] SHAKE U nivers PROPIONATE 0-15 LIQUID AND ity of 50 00:00: USE 2 [place] mcg/actuati 00 SPRAYS IN Med ical on nasal EACH Branch spray NOSTRIL DAILY FLUTICASONE 2019-04 Yes [id number] SHAKE U nivers PROPIONATE 0-15 LIQUID AND ity of 50 00:00: USE 2 [place] mcg/actuati 00 SPRAYS IN Med ical on nasal EACH Branch spray NOSTRIL DAILY FLUTICASONE 2019-04 Yes [id number] SHAKE [facility] nivers PROPIONATE 0-15 LIQUID AND ity of 50 00:00: USE 2 [place] mcg/actuati 00 SPRAYS IN Med ical on nasal EACH Branch spray NOSTRIL DAILY FLUTICASONE 2019-04 Yes [id number] SHAKE [facility] n[facility] PROPIONATE 0-15 LIQUID AND ity of 50 00:00: USE 2 [place] mcg/actuati 00 SPRAYS IN Med ical on nasal EACH Branch spray NOSTRIL DAILY FLUTICASONE 2019-04 Yes [id number] SHAKE [facility] nivers PROPIONATE 0-15 LIQUID AND ity of 50 00:00: USE 2 [place] mcg/actuati 00 SPRAYS IN Med ical on nasal EACH Branch spray NOSTRIL DAILY FLUTICASONE 2019-04 Yes [id number] SHAKE [facility] n[facility] PROPIONATE 0-15 LIQUID AND ity of 50 00:00: USE 2 [place] mcg/actuati 00 SPRAYS IN Med ical on nasal EACH Branch spray NOSTRIL DAILY FLUTICASONE 2019-04 Yes [id number] SHAKE [facility] nivers PROPIONATE 0-15 LIQUID AND ity of 50 00:00: USE 2 [place] mcg/actuati 00 SPRAYS IN Med ical on nasal EACH Branch spray NOSTRIL DAILY FLUTICASONE 2019-04 Yes [id number] SHAKE [facility] n[facility] PROPIONATE 0-15 LIQUID AND ity of 50 00:00: USE 2 [place] mcg/actuati 00 SPRAYS IN Med ical on nasal EACH Branch spray NOSTRIL DAILY FLUTICASONE 2019-04 Yes [id number] SHAKE [facility] nivers PROPIONATE 0-15 LIQUID AND ity of 50 00:00: USE 2 [place] mcg/actuati 00 SPRAYS IN Med ical on nasal EACH Branch spray NOSTRIL DAILY FLUTICASONE 2019-04 Yes [id number] SHAKE [facility] nivers PROPIONATE 0-15 LIQUID AND ity of 50 00:00: USE 2 [place] mcg/actuati 00 SPRAYS IN Med ical on nasal EACH Branch spray NOSTRIL DAILY FLUTICASONE 2019-04 Yes [id number] SHAKE [facility] nivers PROPIONATE 0-15 LIQUID AND ity of 50 00:00: USE 2 [place] mcg/actuati 00 SPRAYS IN Med ical on nasal EACH Branch spray NOSTRIL DAILY FLUTICASONE 2019-04 Yes [id number] SHAKE [facility] nivers PROPIONATE 0-15 LIQUID AND ity of 50 00:00: USE 2 [place] mcg/actuati 00 SPRAYS IN Med ical on nasal EACH Branch spray NOSTRIL DAILY FLUTICASONE 2019-04 Yes [id number] SHAKE [facility] nivers PROPIONATE 0-15 LIQUID AND ity of 50 00:00: USE 2 [place] mcg/actuati 00 SPRAYS IN Med ical on nasal EACH Branch spray NOSTRIL DAILY FLUTICASONE 2019-04 Yes [id number] SHAKE [facility] n[facility] PROPIONATE 0-15 LIQUID AND ity of 50 00:00: USE 2 [place] mcg/actuati 00 SPRAYS IN Med ical on nasal EACH Branch spray NOSTRIL DAILY doxycycline Yes [id number] 100mg Take 1 [facility] monohydrate 8-20 capsule by it y of 100 mg 00:00: mouth 2 [place] capsule 00 (two) Medical times [facility] daily. doxycycline 2020-0 Yes [id number] 100mg Take 1 [facility] monohydrate 8-20 capsule by it y of 100 mg 00:00: mouth 2 [place] capsule 00 (two) Medical times [facility] daily. doxycycline 2020-0 Yes [id number] 100mg Take 1 [facility] monohydrate 8-20 capsule by it y of 100 mg 00:00: mouth 2 [place] capsule 00 (two) Medical times [facility] daily. doxycycline 2020-0 Yes [id number] 100mg Take 1 [facility] monohydrate 8-20 capsule by it y of 100 mg 00:00: mouth 2 [place] capsule 00 (two) Medical times [facility] daily. doxycycline 2020-0 Yes [id number] 100mg Take 1 [facility] monohydrate 8-20 capsule by it y of 100 mg 00:00: mouth 2 [place] capsule 00 (two) Medical times Branch daily. doxycycline 2020-0 Yes [id number] 100mg Take 1 [facility] monohydrate 8-20 capsule by it y of 100 mg 00:00: mouth 2 [place] capsule 00 (two) Medical times Branch daily. doxycycline 2020-0 Yes [id number] 100mg Take 1 [facility] monohydrate 8-20 capsule by it y of 100 mg 00:00: mouth 2 [place] capsule 00 (two) Medical times Branch daily. doxycycline 2020-0 Yes [id number] 100mg Take 1 [facility] monohydrate 8-20 capsule by it y of 100 mg 00:00: mouth 2 [place] capsule 00 (two) Medical times Branch daily. doxycycline 2020-0 Yes [id number] 100mg Take 1 [facility] monohydrate 8-20 capsule by it y of 100 mg 00:00: mouth 2 [place] capsule 00 (two) Medical times Branch daily. doxycycline 2020-0 Yes [id number] 100mg Take 1 [facility] monohydrate 8-20 capsule by it y of 100 mg 00:00: mouth 2 [place] capsule 00 (two) Medical times Branch daily. doxycycline 2020-0 2023- No [id number] 100mg Take 1 [facility] monohydrate 8-20 01-10 capsule by i ty of 100 mg 00:00: 00:00 mouth 2 [place] capsule 00 :00 (two) Medical times Branch daily. doxycycline 2020-0 3- No [id number] 100mg Take 1 [facility] monohydrate 8-20 01-10 capsule by i ty of 100 mg 00:00: 00:00 mouth 2 [place] capsule 00 :00 (two) Medical times Branch daily. doxycycline 2019-2022- No [id number] 100mg Take 1 [facility] monohydrate 8-20 01-10 capsule by i ty of 100 mg 00:00: 00:00 mouth 2 [place] capsule 00 :00 (two) Medical times Branch daily. doxycycline 2019-2022- No [id number] 100mg Take 1 [facility] monohydrate 8-20 01-10 capsule by i ty of 100 mg 00:00: 00:00 mouth 2 [place] capsule 00 :00 (two) Medical times Branch daily. doxycycline 2019-2022- No [id number] 100mg Take 1 [facility] monohydrate 8-20 01-10 capsule by i ty of 100 mg 00:00: 00:00 mouth 2 [place] capsule 00 :00 (two) Medical times Branch daily. doxycycline 2022- No [id number] 100mg Take 1 [facility] monohydrate 8-20 -10 capsule by i ty of 100 mg 00:00: 00:00 mouth 2 [place] capsule 00 :00 (two) Medical times Branch daily. pantoprazol 2019-0 Yes [id number] 40mg Take 1 [facility] e 40 mg EC 8-18 tablet by ity of tablet 00:00: mouth once 00 daily as Medical needed for Branch Indigestio n. LORazepam 1 2019-0 Yes [id number] 1mg Take 1 [facility] mg tablet 8-18 tablet by ity o f 00:00: mouth once 00 daily as Medical needed for Branch Anxiety or Agitation. pantoprazol 2019-0 Yes [id number] 40mg Take 1 [facility] e 40 mg EC 8-18 tablet by ity of tablet 00:00: mouth once 00 daily as Medical needed for Branch Indigestio n. LORazepam 1 2019-0 Yes [id number] 1mg Take 1 [facility] mg tablet 8-18 tablet by ity o f 00:00: mouth once 00 daily as Medical needed for Branch Anxiety or Agitation. pantoprazol 2020-0 Yes [id number] 40mg Take 1 [facility] e 40 mg EC 8-18 tablet by ity of tablet 00:00: mouth once 00 daily as Medical needed for Branch Indigestio n. LORazepam 1 2019-0 Yes [id number] 1mg Take 1 [facility] mg tablet 8-18 tablet by ity o f 00:00: mouth once [place] 00 daily as Medical needed for Branch Anxiety or Agitation. pantoprazol 2020-0 Yes [id number] 40mg Take 1 [facility] e 40 mg EC 8-18 tablet by ity of tablet 00:00: mouth once [place] 00 daily as Medical needed for Branch Indigestio n. LORazepam 1 2020-0 Yes [id number] 1mg Take 1 [facility] mg tablet 8-18 tablet by ity o f 00:00: mouth once [place] 00 daily as Medical needed for Branch Anxiety or Agitation. pantoprazol 2020-0 Yes [id number] 40mg Take 1 [facility] e 40 mg EC 8-18 tablet by ity of tablet 00:00: mouth once [place] 00 daily as Medical needed for Branch Indigestio n. LORazepam 1 2019-0 Yes [id number] 1mg Take 1 [facility] mg tablet 8-18 tablet by ity o f 00:00: mouth once [place] 00 daily as Medical needed for Branch Anxiety or Agitation. pantoprazol 2020-0 Yes [id number] 40mg Take 1 [facility] e 40 mg EC 8-18 tablet by ity of tablet 00:00: mouth once [place] 00 daily as Medical needed for Branch Indigestio n. LORazepam 1 2019-0 Yes [id number] 1mg Take 1 [facility] mg tablet 8-18 tablet by ity o f 00:00: mouth once [place] 00 daily as Medical needed for Branch Anxiety or Agitation. pantoprazol 2020-0 Yes [id number] 40mg Take 1 [facility] e 40 mg EC 8-18 tablet by ity of tablet 00:00: mouth once [place] 00 daily as Medical needed for Branch Indigestio n. LORazepam 1 2020-0 Yes [id number] 1mg Take 1 [facility] mg tablet 8-18 tablet by ity o f 00:00: mouth once [place] 00 daily as Medical needed for Branch Anxiety or Agitation. pantoprazol 2020-0 Yes [id number] 40mg Take 1 [facility] e 40 mg EC 8-18 tablet by ity of tablet 00:00: mouth once [place] 00 daily as Medical needed for Branch Indigestio n. LORazepam 1 2019-0 Yes [id number] 1mg Take 1 [facility] mg tablet 8-18 tablet by ity o f 00:00: mouth once [place] 00 daily as Medical needed for Branch Anxiety or Agitation. pantoprazol 2020-0 Yes [id number] 40mg Take 1 [facility] e 40 mg EC 8-18 tablet by ity of tablet 00:00: mouth once [place] 00 daily as Medical needed for Branch Indigestio n. LORazepam 1 2019-0 Yes [id number] 1mg Take 1 [facility] mg tablet 8-18 tablet by ity o f 00:00: mouth once [place] 00 daily as Medical needed for Branch Anxiety or Agitation. pantoprazol 2019-0 Yes [id number] 40mg Take 1 [facility] e 40 mg EC 8-18 tablet by ity of tablet 00:00: mouth once [place] 00 daily as Medical needed for Branch Indigestio n. LORazepam 1 2019- Yes [id number] 1mg Take 1 [facility] mg tablet 8-18 tablet by ity o f 00:00: mouth once [place] 00 daily as Medical needed for Branch Anxiety or Agitation. pantoprazol 2019- Yes [id number] 40mg Take 1 [facility] e 40 mg EC 8-18 tablet by ity of tablet 00:00: mouth once [place] 00 daily as Medical needed for Branch Indigestio n. LORazepam 1 2019- Yes [id number] 1mg Take 1 [facility] mg tablet 8-18 tablet by ity o f 00:00: mouth once [place] 00 daily as Medical needed for Branch Anxiety or Agitation. pantoprazol 2019-0 Yes [id number] 40mg Take 1 [facility] e 40 mg EC 8-18 tablet by ity of tablet 00:00: mouth once [place] 00 daily as Medical needed for Branch Indigestio n. LORazepam 1 2019-0 Yes [id number] 1mg Take 1 [facility] mg tablet 8-18 tablet by ity o f 00:00: mouth once [place] 00 daily as Medical needed for Branch Anxiety or Agitation. pantoprazol 2019-0 Yes [id number] 40mg Take 1 [facility] e 40 mg EC 8-18 tablet by ity of tablet 00:00: mouth once [place] 00 daily as Medical needed for Branch Indigestio n. LORazepam 1 2019- Yes [id number] 1mg Take 1 [facility] mg tablet 8-18 tablet by ity o f 00:00: mouth once [place] 00 daily as Medical needed for Branch Anxiety or Agitation. pantoprazol 2019-0 2022- No [id number] 40mg Take 1 [facility] e 40 mg EC 8-18 01-10 tablet by ity of tablet 00:00: 00:00 mouth once [place] 00 :00 daily as Medical needed for Branch Indigestio n. LORazepam 1 No [id number] 1mg Take 1 [facility] mg tablet 12-0110 tablet by ity of 00:00: 00:00 mouth once [place] 00 :00 daily as Medical needed for Branch Anxiety or Agitation. pantoprazol No [id number] 40mg Take 1 [facility] e 40 mg EC 810 tablet by ity of tablet 00:00: 00:00 mouth once [place] 00 :00 daily as Medical needed for Branch Indigestio n. LORazepam 1 No [id number] 1mg Take 1 [facility] mg tablet 12-0110 tablet by ity of 00:00: 00:00 mouth once [place] 00 :00 daily as Medical needed for Branch Anxiety or Agitation. pantoprazol No [id number] 40mg Take 1 [facility] e 40 mg EC 12-0110 tablet by ity of tablet 00:00: 00:00 mouth once [place] 00 :00 daily as Medical needed for Branch Indigestio n. LORazepam 1 No [id number] 1mg Take 1 [facility] mg tablet 12-01 tablet by ity of 00:00: 00:00 mouth once [place] 00 :00 daily as Medical needed for Branch Anxiety or Agitation. pantoprazol No [id number] 40mg Take 1 [facility] e 40 mg EC 12-0110 tablet by ity of tablet 00:00: 00:00 mouth once [place] 00 :00 daily as Medical needed for Branch Indigestio n. LORazepam 1 No [id number] 1mg Take 1 [facility] mg tablet 12-0110 tablet by ity of 00:00: 00:00 mouth once [place] 00 :00 daily as Medical needed for Branch Anxiety or Agitation. pantoprazol No [id number] 40mg Take 1 [facility] e 40 mg EC 810 tablet by ity of tablet 00:00: 00:00 mouth once [place] 00 :00 daily as Medical needed for Branch Indigestio n. LORazepam 1 No [id number] 1mg Take 1 [facility] mg tablet 12-0110 tablet by ity of 00:00: 00:00 mouth once [place] 00 :00 daily as Medical needed for Branch Anxiety or Agitation. pantoprazol 2022- No [id number] 40mg Take 1 [facility] e 40 mg EC 12-01 tablet by ity of tablet 00:00: 00:00 mouth once [place] 00 :00 daily as Medical needed for Branch Indigestio n. LORazepam 1 2022- No [id number] 1mg Take 1 [facility] mg tablet 12-01 tablet by ity of 00:00: 00:00 mouth once [place] 00 :00 daily as Medical needed for Branch Anxiety or Agitation. doxycycline 2019- No [id number] 100mg Take 1 [facility] hyclate 100 12-01 capsule by i ty of mg capsule 00:00: 04:59 mouth [place] 00 :00 every 12 Medical (twelve) Branch hours for 14 days. doxycycline 2019- No [id number] 100mg Take 1 [facility] hyclate 100 12-01 capsule by i ty of mg capsule 00:00: 04:59 mouth [place] 00 :00 every 12 Medical (twelve) Branch hours for 14 days. doxycycline 2019- No [id number] 100mg Take 1 [facility] hyclate 100 12-01 capsule by i ty of mg capsule 00:00: 04:59 mouth [place] 00 :00 every 12 Medical (twelve) Branch hours for 14 days. doxycycline 2019- No [id number] 100mg Take 1 [facility] hyclate 100 12-01 08-20 capsule by i ty of mg capsule 00:00: 00:00 mouth [place] 00 :00 every 12 Medical (twelve) Branch hours for 14 days. FLUoxetine 2020-0 Yes 60mg Take 60 mg U nivers 60 mg 7-23 by mouth ity of tablet 00:00: daily. [place] [facility] FLUoxetine 2020-0 Yes 60mg Take 60 mg U nivers 60 mg 7-23 by mouth ity of tablet 00:00: daily. [place] [facility] FLUoxetine 2020-0 Yes 60mg Take 60 mg U nivers 60 mg 7-23 by mouth ity of tablet 00:00: daily. [place] [facility] FLUoxetine 2020-0 Yes 60mg Take 60 mg U nivers 60 mg 7-23 by mouth ity of tablet 00:00: daily. [place] 00 Medical Branch FLUoxetine 2020-0 Yes 60mg Take 60 mg U nivers 60 mg 7-23 by mouth ity of tablet 00:00: daily. [place] [facility] FLUoxetine 2020-0 Yes 60mg Take 60 mg U nivers 60 mg 7-23 by mouth ity of tablet 00:00: daily. [address] FLUoxetine 2020-0 Yes 60mg Take 60 mg U nivers 60 mg 7-23 by mouth ity of tablet 00:00: daily. [place] [facility] FLUoxetine 2020-0 Yes 60mg Take 60 mg U nivers 60 mg 7-23 by mouth ity of tablet 00:00: daily. [address] FLUoxetine 2020-0 Yes 60mg Take 60 mg U nivers 60 mg 7-23 by mouth ity of tablet 00:00: daily. [address] FLUoxetine 2020-0 Yes 60mg Take 60 mg U nivers 60 mg 7-23 by mouth ity of tablet 00:00: daily. [address] FLUoxetine 2020-0 Yes 60mg Take 60 mg U nivers 60 mg 7-23 by mouth ity of tablet 00:00: daily. [address] FLUoxetine 2020-0 Yes 60mg Take 60 mg U nivers 60 mg 7-23 by mouth ity of tablet 00:00: daily. [address] FLUoxetine 2020-0 Yes 60mg Take 60 mg U nivers 60 mg 7-23 by mouth ity of tablet 00:00: daily. [address] FLUoxetine 2020-0 Yes 60mg Take 60 mg U nivers 60 mg 7-23 by mouth ity of tablet 00:00: daily. [address] FLUoxetine 2020-0 Yes 60mg Take 60 mg U nivers 60 mg 7-23 by mouth ity of tablet 00:00: daily. [address] FLUoxetine 2020-0 Yes 60mg Take 60 mg U nivers 60 mg 7-23 by mouth ity of tablet 00:00: daily. [address] FLUoxetine 2020-0 Yes 60mg Take 60 mg U nivers 60 mg 7-23 by mouth ity of tablet 00:00: daily. [address] FLUoxetine 2020-0 Yes 60mg Take 60 mg U nivers 60 mg 7-23 by mouth ity of tablet 00:00: daily. [address] FLUoxetine 2020-0 Yes 60mg Take 60 mg U nivers 60 mg 7-23 by mouth ity of tablet 00:00: daily. [place] [facility] FLUoxetine 2020-0 Yes 60mg Take 60 mg U nivers 60 mg 7-23 by mouth ity of tablet 00:00: daily. [place] [facility] FLUoxetine 2020-0 Yes 60mg Take 60 mg U nivers 60 mg 7-23 by mouth ity of tablet 00:00: daily. [place] [facility] FLUoxetine 2020-0 Yes 60mg Take 60 mg U nivers 60 mg 7-23 by mouth ity of tablet 00:00: daily. [place] [facility] FLUoxetine 2020-0 Yes 60mg Take 60 mg U nivers 60 mg 7-23 by mouth ity of tablet 00:00: daily. [place] [facility] FLUoxetine 2020-0 Yes 60mg Take 60 mg U nivers 60 mg 7-23 by mouth ity of tablet 00:00: daily. [place] [facility] FLUoxetine 2020-0 Yes 60mg Take 60 mg U nivers 60 mg 7-23 by mouth ity of tablet 00:00: daily. [place] [facility] FLUoxetine 2020-0 Yes 60mg Take 60 mg U nivers 60 mg 7-23 by mouth ity of tablet 00:00: daily. [place] [facility] FLUoxetine 2020-0 Yes 60mg Take 60 mg U nivers 60 mg 7-23 by mouth ity of tablet 00:00: daily. [place] [facility] FLUoxetine 2020-0 Yes 60mg Take 60 mg U nivers 60 mg 7-23 by mouth ity of tablet 00:00: daily. [place] [facility] FLUoxetine 2020-0 Yes 60mg Take 60 mg U nivers 60 mg 7-23 by mouth ity of tablet 00:00: daily. [place] [facility] FLUoxetine 2020-0 Yes 60mg Take 60 mg U nivers 60 mg 7-23 by mouth ity of tablet 00:00: daily. [address] QUEtiapine 2020-0 Yes 200mg Take 200 [facility] [place] 200 mg 7-21 mg by ity of tablet 00:00: mouth at [place] [address] [facility] QUEtiapine 2020-0 Yes 200mg Take 200 [facility] [place] 200 mg 7-21 mg by ity of tablet 00:00: mouth at [place] [address] [facility] Branch QUEtiapine 2020-0 Yes 200mg Take 200 [facility] [place] 200 mg 7-21 mg by ity of tablet 00:00: mouth at [place] [address] bedtime. Medical Branch QUEtiapine 2020-0 Yes 200mg Take 200 [place] 200 mg 7-21 mg by ity of tablet 00:00: mouth at [place] [address] bedtime. Medical Branch QUEtiapine 2020-0 Yes 200mg Take 200 [place] 200 mg 7-21 mg by ity of tablet 00:00: mouth at [place] [address] bedtime. Medical Branch QUEtiapine 2020-0 Yes 200mg Take 200 [facility] [place] 200 mg 7-21 mg by ity of tablet 00:00: mouth at [place] [address] bedtime. Medical Branch QUEtiapine 2020-0 Yes 200mg Take 200 [place] 200 mg 7-21 mg by ity of tablet 00:00: mouth at [place] [address] bedtime. Medical Branch QUEtiapine 2020-0 Yes 200mg Take 200 [place] 200 mg 7-21 mg by ity of tablet 00:00: mouth at [place] [address] bedtime. Medical Branch QUEtiapine 2020-0 Yes 200mg Take 200 [facility] [place] 200 mg 7-21 mg by ity of tablet 00:00: mouth at [place] [address] bedtime. Medical Branch QUEtiapine 2020-0 Yes 200mg Take 200 [place] 200 mg 7-21 mg by ity of tablet 00:00: mouth at [place] [address] bedtime. Medical Branch QUEtiapine 2020-0 Yes 200mg Take 200 [place] 200 mg 7-21 mg by ity of tablet 00:00: mouth at [place] [address] bedtime. Medical Branch QUEtiapine 2020-0 Yes 200mg Take 200 [facility] [place] 200 mg 7-21 mg by ity of tablet 00:00: mouth at [place] [address] bedtime. Medical Branch QUEtiapine 2020-0 Yes 200mg Take 200 [facility] [place] 200 mg 7-21 mg by ity of tablet 00:00: mouth at [place] [address] bedtime. Medical Branch QUEtiapine 2020-0 2023- No 200mg Take 200 U nivers 200 mg 7-21 01-10 mg by ity of tablet 00:00: 00:00 mouth at [place] 00 :00 bedtime. Medical Branch QUEtiapine 2020-0 2023- No 200mg Take 200 U nivers 200 mg 7-21 01-10 mg by ity of tablet 00:00: 00:00 mouth at [place] 00 :00 bedtime. Medical Branch QUEtiapine 2020-0 2023- No 200mg Take 200 U nivers 200 mg 7-21 01-10 mg by ity of tablet 00:00: 00:00 mouth at [place] 00 :00 bedtime. Medical Branch QUEtiapine 2022- No 200mg Take 200 U nivers 200 mg 7-21 01-10 mg by ity of tablet 00:00: 00:00 mouth at [place] 00 :00 bedtime. Medical Branch QUEtiapine 2022- No 200mg Take 200 U nivers 200 mg 7-21 01-10 mg by ity of tablet 00:00: 00:00 mouth at [place] 00 :00 bedtime. Medical Branch QUEtiapine 2022- No 200mg Take 200 U nivers 200 mg 7-21 01-10 mg by ity of tablet 00:00: 00:00 mouth at [place] 00 :00 bedtime. Medical Branch pantoprazol Yes [id number] 40mg Take 1 [facility] e 40 mg EC 6-23 tablet by ity of tablet 00:00: mouth once 00 daily as Medical needed for Branch Indigestio n. pantoprazol Yes [id number] 40mg Take 1 [facility] e 40 mg EC 6-23 tablet by ity of tablet 00:00: mouth once [place] 00 daily as Medical needed for Branch Indigestio n. pantoprazol Yes [id number] 40mg Take 1 [facility] e 40 mg EC 6-23 tablet by ity of tablet 00:00: mouth once [place] 00 daily as Medical needed for Branch Indigestio n. pantoprazol 2019- No [id number] 40mg Take 1 [facility] e 40 mg EC 6-23 08-18 tablet by ity of tablet 00:00: 00:00 mouth once [place] 00 :00 daily as Medical needed for Branch Indigestio n. pantoprazol 2020- No [id number] 40mg Take 1 [facility] e 40 mg EC 6-23 08-18 tablet by ity of tablet 00:00: 00:00 mouth once [place] 00 :00 daily as Medical needed for Branch Indigestio n. fluticasone Yes [id number] 2{spray Use 2 [facility] propionate 6-16 } Sprays in ity of (FLONASE 00:00: each [facility] 00 nostril Medical RELIEF) 50 daily. Branch mcg/actuati on nasal spray LORazepam 1 Yes [id number] 1mg Take 1 [facility] mg tablet 6-16 tablet by ity o f 00:00: mouth once [place] 00 daily as Medical needed for Branch Anxiety or Agitation. fluticasone 2020-0 Yes [id number] 2{spray Use 2 [facility] propionate 6-16 } Sprays in ity of (FLONASE 00:00: each [place] ALLERGY 00 nostril Medical RELIEF) 50 daily. Branch mcg/actuati on nasal spray LORazepam 1 2019-0 Yes [id number] 1mg Take 1 [facility] mg tablet 6-16 tablet by ity o f 00:00: mouth once [place] 00 daily as Medical needed for Branch Anxiety or Agitation. fluticasone 2020-0 Yes [id number] 2{spray Use 2 [facility] propionate 6-16 } Sprays in ity of (FLONASE 00:00: each [place] ALLERGY 00 nostril Medical RELIEF) 50 daily. Branch mcg/actuati on nasal spray LORazepam 1 2019-0 Yes [id number] 1mg Take 1 [facility] mg tablet 6-16 tablet by ity o f 00:00: mouth once [place] 00 daily as Medical needed for Branch Anxiety or Agitation. fluticasone 2020-0 Yes [id number] 2{spray Use 2 [facility] propionate 6-16 } Sprays in ity of (FLONASE 00:00: each [place] ALLERGY 00 nostril Medical RELIEF) 50 daily. Branch mcg/actuati on nasal spray LORazepam 1 2019-0 Yes [id number] 1mg Take 1 [facility] mg tablet 6-16 tablet by ity o f 00:00: mouth once [place] 00 daily as Medical needed for Branch Anxiety or Agitation. fluticasone 2020-0 Yes [id number] 2{spray Use 2 [facility] propionate 6-16 } Sprays in ity of (FLONASE 00:00: each [place] ALLERGY 00 nostril Medical RELIEF) 50 daily. Branch mcg/actuati on nasal spray fluticasone 2020-0 Yes [id number] 2{spray Use 2 [facility] propionate 6-16 } Sprays in ity of (FLONASE 00:00: each [place] ALLERGY 00 nostril Medical RELIEF) 50 daily. Branch mcg/actuati on nasal spray fluticasone 2020-0 Yes [id number] 2{spray Use 2 [facility] propionate 6-16 } Sprays in ity of (FLONASE 00:00: each [place] ALLERGY 00 nostril Medical RELIEF) 50 daily. Branch mcg/actuati on nasal spray fluticasone 2020-0 Yes [id number] 2{spray Use 2 [facility] propionate 6-16 } Sprays in ity of (FLONASE 00:00: each [place] ALLERGY 00 nostril Medical RELIEF) 50 daily. Branch mcg/actuati on nasal spray fluticasone 2020-0 Yes [id number] 2{spray Use 2 [facility] propionate 6-16 } Sprays in ity of (FLONASE 00:00: each [place] ALLERGY 00 nostril Medical RELIEF) 50 daily. Branch mcg/actuati on nasal spray fluticasone 2020-0 Yes [id number] 2{spray Use 2 [facility] propionate 6-16 } Sprays in ity of (FLONASE 00:00: each [place] ALLERGY 00 nostril Medical RELIEF) 50 daily. Branch mcg/actuati on nasal spray fluticasone 2020-0 Yes [id number] 2{spray Use 2 [facility] propionate 6-16 } Sprays in ity of (FLONASE 00:00: each [place] ALLERGY 00 nostril Medical RELIEF) 50 daily. Branch mcg/actuati on nasal spray fluticasone 2020-0 Yes [id number] 2{spray Use 2 [facility] propionate 6-16 } Sprays in ity of (FLONASE 00:00: each [place] ALLERGY 00 nostril Medical RELIEF) 50 daily. Branch mcg/actuati on nasal spray fluticasone 2020-0 Yes [id number] 2{spray Use 2 [facility] propionate 6-16 } Sprays in ity of (FLONASE 00:00: each [place] ALLERGY 00 nostril Medical RELIEF) 50 daily. Branch mcg/actuati on nasal spray fluticasone 2020-0 2020- No [id number] 2{spray Use 2 [facility] propionate 6-16 10-15 } Sprays in ity of (FLONASE 00:00: 00:00 each [place] ALLERGY 00 :00 nostril Medical RELIEF) 50 daily. Branch mcg/actuati on nasal spray LORazepam 1 2020- No [id number] 1mg Take 1 [facility] mg tablet 6-16 08-18 tablet by ity of 00:00: 00:00 mouth once [place] 00 :00 daily as Medical needed for Branch Anxiety or Agitation. LORazepam 1 2020- No [id number] 1mg Take 1 [facility] mg tablet 6-16 [...] (two) Medical times Branch daily. lithium 2020-0 2023- No 100mg Take 100 [facility] ers carbonate 6-14 01-10 mg by ity of 300 mg 00:00: 00:00 mouth 2 [place] tablet 00 :00 (two) Medical times Branch daily. lithium 2020-0 2023- No 100mg Take 100 [facility] ers carbonate 6-14 01-10 mg by ity of 300 mg 00:00: 00:00 mouth 2 [place] tablet 00 :00 (two) Medical times Branch daily. lithium 2020-0 2023- No 100mg Take 100 [facility] ers carbonate 6-14 01-10 mg by ity of 300 mg 00:00: 00:00 mouth 2 [place] tablet 00 :00 (two) Medical times Branch daily. lithium 2020-0 2023- No 100mg Take 100 [facility] ers carbonate 6-14 01-10 mg by ity of 300 mg 00:00: 00:00 mouth 2 [place] tablet 00 :00 (two) Medical times Branch daily. lithium 2020-0 2023- No 100mg Take 100 [facility] ers carbonate 6-14 01-10 mg by ity of 300 mg 00:00: 00:00 mouth 2 [place] tablet 00 :00 (two) Medical times Branch daily. lithium 2020-0 2023- No 100mg Take 100 [facility] ers carbonate 6-14 01-10 mg by ity of 300 mg 00:00: 00:00 mouth 2 [place] tablet 00 :00 (two) Medical times Branch daily. FLUoxetine 2020-0 Yes [id number] 60mg Take 3 U nivers 20 mg 6-11 capsules ity of capsule 00:00: by mouth [place] 00 daily. Medical Branch FLUoxetine 2020-0 Yes [id number] 60mg Take 3 U nivers 20 mg 6-11 capsules ity of capsule 00:00: by mouth [place] 00 daily. Medical Branch FLUoxetine 2020-0 Yes [id number] 60mg Take 3 U nivers 20 mg 6-11 capsules ity of capsule 00:00: by mouth [place] 00 daily. Medical Branch FLUoxetine 2020-0 Yes [id number] 60mg Take 3 U nivers 20 mg 6-11 capsules ity of capsule 00:00: by mouth [place] 00 daily. Medical Branch FLUoxetine 2019-0 Yes [id number] 60mg Take 3 U nivers 20 mg 6-11 capsules ity of capsule 00:00: by mouth [place] 00 daily. Medical Branch FLUoxetine 0 2020- No [id number] 60mg Take 3 [facility] 20 mg 6-11 08-18 capsules ity of capsule 00:00: 00:00 by mouth [place] 00 :00 daily. Medical Branch FLUoxetine 0 2020- No [id number] 60mg Take 3 [facility] 20 mg 6-11 08-18 capsules ity of capsule 00:00: 00:00 by mouth [place] 00 :00 daily. Medical Branch pantoprazol 2019-0 Yes [id number] 40mg Take 1 [facility] e 40 mg EC 5-21 tablet by ity of tablet 00:00: mouth once [place] 00 daily as Medical needed for Branch Indigestio n. pantoprazol 0 Yes [id number] 40mg Take 1 [facility] e 40 mg EC 5-21 tablet by ity of tablet 00:00: mouth once [place] 00 daily as Medical needed for Branch Indigestio n. pantoprazol 0 Yes [id number] 40mg Take 1 [facility] e 40 mg EC 5-21 tablet by ity of tablet 00:00: mouth once [place] 00 daily as Medical needed for Branch Indigestio n. pantoprazol 0 2020- No [id number] 40mg Take 1 [facility] e 40 mg EC 5-21 06-23 tablet by ity of tablet 00:00: 00:00 mouth once [place] 00 :00 daily as Medical needed for Branch Indigestio n. cariprazine 0 2020- No 10mg Take 10 mg [facility] HCl 5-19 05-19 by mouth ity of (VRAYLAR 16:24: 00:00 at [place] ORAL) 07 :00 bedtime. Medical Branch phenytoin 2019-0 Yes [id number] 400mg Take 4 U nivers Extended 5-19 capsules ity of (DILANTIN) 00:00: by mouth [place] 100 mg 00 daily. Medical capsule Branch levothyroxi 2019-0 Yes [id number] 150ug Take 1 [facility] ne 150 mcg 5-19 tablet by ity of tablet 00:00: mouth [place] 00 every Medical morning. Branch cholestyram 2020-0 Yes [id number] 2g Take 0.5 [facility] ine 4 gram 5-19 Packets by ity of powder 00:00: mouth (three) Medical times Branch daily with meals. phenytoin 2020-0 Yes [id number] 400mg Take 4 U nivers Extended 5-19 capsules ity of (DILANTIN) 00:00: by mouth [place] 100 mg 00 daily. Medical capsule Branch levothyroxi 2020-0 Yes [id number] 150ug Take 1 [facility] ne 150 mcg 5-19 tablet by ity of tablet 00:00: mouth 00 every Medical morning. Branch cholestyram 2020-0 Yes [id number] 2g Take 0.5 [facility] ine 4 gram 5-19 Packets by ity of powder 00:00: mouth (three) Medical times Branch daily with meals. phenytoin 2020-0 Yes [id number] 400mg Take 4 U nivers Extended 5-19 capsules ity of (DILANTIN) 00:00: by mouth [place] 100 mg 00 daily. Medical capsule Branch levothyroxi 2020-0 Yes [id number] 150ug Take 1 [facility] ne 150 mcg 5-19 tablet by ity of tablet 00:00: mouth [place] every Medical morning. Branch cholestyram 2020-0 Yes [id number] 2g Take 0.5 [facility] ine 4 gram 5-19 Packets by ity of powder 00:00: mouth (three) Medical times Branch daily with meals. phenytoin 2020-0 Yes [id number] 400mg Take 4 [facility] n[facility] Extended 5-19 capsules ity of (DILANTIN) 00:00: by mouth [place] 100 mg 00 daily. Medical capsule Branch levothyroxi 2020-0 Yes [id number] 150ug Take 1 [facility] ne 150 mcg 5-19 tablet by ity of tablet 00:00: mouth [place] every Medical morning. Branch cholestyram 2020-0 Yes [id number] 2g Take 0.5 [facility] ine 4 gram 5-19 Packets by ity of powder 00:00: mouth (three) Medical times Branch daily with meals. phenytoin 2020-0 Yes [id number] 400mg Take 4 [facility] n[facility] Extended 5-19 capsules ity of (DILANTIN) 00:00: by mouth [place] 100 mg 00 daily. Medical capsule Branch levothyroxi 2020-0 Yes [id number] 150ug Take 1 [facility] ne 150 mcg 5-19 tablet by ity of tablet 00:00: mouth 00 every Medical morning. Branch cholestyram 2020-0 Yes [id number] 2g Take 0.5 [facility] ine 4 gram 5-19 Packets by ity of powder 00:00: mouth 3 (three) Medical times Branch daily with meals. phenytoin 2020-0 Yes [id number] 400mg Take 4 [facility] n[facility] Extended 5-19 capsules ity of (DILANTIN) 00:00: by mouth [place] 100 mg 00 daily. Medical capsule Branch levothyroxi 2020-0 Yes [id number] 150ug Take 1 [facility] ne 150 mcg 5-19 tablet by ity of tablet 00:00: mouth 00 every Medical morning. Branch cholestyram 2020-0 Yes [id number] 2g Take 0.5 [facility] ine 4 gram 5-19 Packets by ity of powder 00:00: mouth 3 (three) Medical times [place] daily with meals. phenytoin 2020-0 Yes [id number] 400mg Take 4 [facility] n[facility] Extended 5-19 capsules ity of (DILANTIN) 00:00: by mouth [place] 100 mg 00 daily. Medical capsule Branch levothyroxi 2020-0 Yes [id number] 150ug Take 1 [facility] ne 150 mcg 5-19 tablet by ity of tablet 00:00: mouth every Medical morning. Branch cholestyram 2020-0 Yes [id number] 2g Take 0.5 [facility] ine 4 gram 5-19 Packets by ity of powder 00:00: mouth (three) Medical times [place] daily with meals. phenytoin 2020-0 Yes [id number] 400mg Take 4 [facility] Extended 5-19 capsules ity of (DILANTIN) 00:00: by mouth [place] 100 mg 00 daily. Medical capsule Branch levothyroxi 2020-0 Yes [id number] 150ug Take 1 [facility] ne 150 mcg 5-19 tablet by ity of tablet 00:00: mouth every Medical morning. Branch cholestyram 2020-0 Yes [id number] 2g Take 0.5 [facility] ine 4 gram 5-19 Packets by ity of powder 00:00: mouth 3 (three) Medical times [place] daily with meals. phenytoin 2020-0 Yes [id number] 400mg Take 4 [facility] Extended 5-19 capsules ity of (DILANTIN) 00:00: by mouth [place] 100 mg 00 daily. Medical capsule Branch levothyroxi 2020-0 Yes [id number] 150ug Take 1 [facility] ne 150 mcg 5-19 tablet by ity of tablet 00:00: mouth [place] 00 every Medical morning. Branch cholestyram 2020-0 Yes [id number] 2g Take 0.5 [facility] ine 4 gram 5-19 Packets by ity of powder 00:00: mouth 3 [place] 00 (three) Medical times [place] daily with meals. nystatin 2020-0 Yes [id number] Apply to [facility] nivers 100,000 5-19 area(s) 2 ity of unit/gram 00:00: (two) [place] powder 00 times Medical daily. Branch phenytoin 2020-0 Yes [id number] 400mg Take 4 [facility] n[facility] Extended 5-19 capsules ity of (DILANTIN) 00:00: by mouth [place] 100 mg 00 daily. Medical capsule Branch FLUoxetine 2019-0 Yes 60mg Take 3 [facility] 20 mg 5-19 capsules ity of capsule 00:00: by mouth [place] 00 daily. Medical Branch levothyroxi 2020-0 Yes [id number] 150ug Take 1 [facility] ne 150 mcg 5-19 tablet by ity of tablet 00:00: mouth [place] 00 every Medical morning. Branch cholestyram 2020-0 Yes [id number] 2g Take 0.5 [facility] ine 4 gram 5-19 Packets by ity of powder 00:00: mouth 3 00 (three) Medical times [place] daily with meals. LORazepam 1 2019-0 Yes [id number] 1mg Take 1 [facility] mg tablet 5-19 tablet by ity o f 00:00: mouth once [place] 00 daily as Medical needed for Branch Anxiety or Agitation. nystatin 2020-0 Yes [id number] Apply to [facility] nivers 100,000 5-19 area(s) 2 ity of unit/gram 00:00: (two) [place] powder 00 times Medical daily. Branch phenytoin 2020-0 Yes [id number] 400mg Take 4 [facility] n[facility] Extended 5-19 capsules ity of (DILANTIN) 00:00: by mouth [place] 100 mg 00 daily. Medical capsule Branch levothyroxi 2020-0 Yes [id number] 150ug Take 1 [facility] ne 150 mcg 5-19 tablet by ity of tablet 00:00: mouth [place] 00 every Medical morning. Branch cholestyram 2020-0 Yes [id number] 2g Take 0.5 [facility] ine 4 gram 5-19 Packets by ity of powder 00:00: mouth 3 00 (three) Medical times Branch daily with meals. LORazepam 1 2020-0 Yes [id number] 1mg Take 1 [facility] mg tablet 5-19 tablet by ity o f 00:00: mouth once [place] 00 daily as Medical needed for Branch Anxiety or Agitation. nystatin 2020-0 Yes [id number] Apply to [facility] nivers 100,000 5-19 area(s) 2 ity of unit/gram 00:00: (two) [place] powder 00 times Medical daily. Branch phenytoin 2020-0 Yes [id number] 400mg Take 4 [facility] nivers Extended 5-19 capsules ity of (DILANTIN) 00:00: by mouth [place] 100 mg 00 daily. Medical capsule Branch levothyroxi 2020-0 Yes [id number] 150ug Take 1 [facility] ne 150 mcg 5-19 tablet by ity of tablet 00:00: mouth [place] 00 every Medical morning. Branch cholestyram 2020-0 Yes [id number] 2g Take 0.5 [facility] ine 4 gram 5-19 Packets by ity of powder 00:00: mouth 3 00 (three) Medical times [place] daily with meals. nystatin 2020-0 Yes [id number] Apply to [facility] nivers 100,000 5-19 area(s) 2 ity of unit/gram 00:00: (two) [place] powder 00 times Medical daily. Branch phenytoin 2020-0 Yes [id number] 400mg Take 4 [facility] n[facility] Extended 5-19 capsules ity of (DILANTIN) 00:00: by mouth [place] 100 mg 00 daily. Medical capsule Branch levothyroxi 2020-0 Yes [id number] 150ug Take 1 [facility] ne 150 mcg 5-19 tablet by ity of tablet 00:00: mouth [place] 00 every Medical morning. Branch cholestyram 2020-0 Yes [id number] 2g Take 0.5 [facility] ine 4 gram 5-19 Packets by ity of powder 00:00: mouth 3 (three) Medical times [place] daily with meals. nystatin 2020-0 Yes [id number] Apply to [facility] nivers 100,000 5-19 area(s) 2 ity of unit/gram 00:00: (two) [place] powder 00 times Medical daily. Branch phenytoin 2020-0 Yes [id number] 400mg Take 4 [facility] n[facility] Extended 5-19 capsules ity of (DILANTIN) 00:00: by mouth [place] 100 mg 00 daily. Medical capsule Branch levothyroxi 2020-0 Yes [id number] 150ug Take 1 [facility] ne 150 mcg 5-19 tablet by ity of tablet 00:00: mouth [place] 00 every Medical morning. Branch cholestyram 2020-0 Yes [id number] 2g Take 0.5 [facility] ine 4 gram 5-19 Packets by ity of powder 00:00: mouth 3 00 (three) Medical times Branch daily with meals. nystatin 2020-0 Yes [id number] Apply to [facility] nivers 100,000 5-19 area(s) 2 ity of unit/gram 00:00: (two) [place] powder 00 times Medical daily. Branch phenytoin 2020-0 Yes [id number] 400mg Take 4 [facility] n[facility] Extended 5-19 capsules ity of (DILANTIN) 00:00: by mouth [place] 100 mg 00 daily. Medical capsule Branch levothyroxi 2020-0 Yes [id number] 150ug Take 1 [facility] ne 150 mcg 5-19 tablet by ity of tablet 00:00: mouth [place] 00 every Medical morning. Branch cholestyram 2020-0 Yes [id number] 2g Take 0.5 [facility] ine 4 gram 5-19 Packets by ity of powder 00:00: mouth 3 (three) Medical times Branch daily with meals. nystatin 2020-0 Yes [id number] Apply to [facility] nivers 100,000 5-19 area(s) 2 ity of unit/gram 00:00: (two) [place] powder 00 times Medical daily. Branch phenytoin 2020-0 Yes [id number] 400mg Take 4 [facility] n[facility] Extended 5-19 capsules ity of (DILANTIN) 00:00: by mouth [place] 100 mg 00 daily. Medical capsule Branch levothyroxi 2020-0 Yes [id number] 150ug Take 1 [facility] ne 150 mcg 5-19 tablet by ity of tablet 00:00: mouth [place] 00 every Medical morning. Branch cholestyram 2020-0 Yes [id number] 2g Take 0.5 [facility] ine 4 gram 5-19 Packets by ity of powder 00:00: mouth 3 00 (three) Medical times Branch daily with meals. phenytoin 2020-0 Yes [id number] 400mg Take 4 [facility] Extended 5-19 capsules ity of (DILANTIN) 00:00: by mouth [place] 100 mg 00 daily. Medical capsule Branch levothyroxi 2020-0 Yes [id number] 150ug Take 1 [facility] ne 150 mcg 5-19 tablet by ity of tablet 00:00: mouth every Medical morning. Branch cholestyram 2020-0 Yes [id number] 2g Take 0.5 [facility] ine 4 gram 5-19 Packets by ity of powder 00:00: mouth 3 (three) Medical times Branch daily with meals. phenytoin 2020-0 Yes [id number] 400mg Take 4 [facility] n[facility] Extended 5-19 capsules ity of (DILANTIN) 00:00: by mouth [place] 100 mg 00 daily. Medical capsule Branch levothyroxi 2020-0 Yes [id number] 150ug Take 1 [facility] ne 150 mcg 5-19 tablet by ity of tablet 00:00: mouth every Medical morning. Branch cholestyram 2020-0 Yes [id number] 2g Take 0.5 [facility] ine 4 gram 5-19 Packets by ity of powder 00:00: mouth (three) Medical times Branch daily with meals. phenytoin 2020-0 Yes [id number] 400mg Take 4 [facility] Extended 5-19 capsules ity of (DILANTIN) 00:00: by mouth [place] 100 mg 00 daily. Medical capsule Branch levothyroxi 2020-0 Yes [id number] 150ug Take 1 [facility] ne 150 mcg 5-19 tablet by ity of tablet 00:00: mouth every Medical morning. Branch cholestyram 2020-0 Yes [id number] 2g Take 0.5 [facility] ine 4 gram 5-19 Packets by ity of powder 00:00: mouth (three) Medical times Branch daily with meals. phenytoin 2020-0 Yes [id number] 400mg Take 4 [facility] Extended 5-19 capsules ity of (DILANTIN) 00:00: by mouth [place] 100 mg 00 daily. Medical capsule Branch levothyroxi 2020-0 Yes [id number] 150ug Take 1 [facility] ne 150 mcg 5-19 tablet by ity of tablet 00:00: mouth every Medical morning. Branch cholestyram 2020-0 Yes [id number] 2g Take 0.5 [facility] ine 4 gram 5-19 Packets by ity of powder 00:00: mouth (three) Medical times Branch daily with meals. phenytoin 2020-0 Yes [id number] 400mg Take 4 [facility] Extended 5-19 capsules ity of (DILANTIN) 00:00: by mouth [place] 100 mg 00 daily. Medical capsule Branch levothyroxi 2020-0 Yes [id number] 150ug Take 1 [facility] ne 150 mcg 5-19 tablet by ity of tablet 00:00: mouth [place] 00 every Medical morning. Branch cholestyram 2020-0 Yes [id number] 2g Take 0.5 [facility] ine 4 gram 5-19 Packets by ity of powder 00:00: mouth 3 (three) Medical times Branch daily with meals. phenytoin 2020-0 Yes [id number] 400mg Take 4 [facility] n[facility] Extended 5-19 capsules ity of (DILANTIN) 00:00: by mouth [place] 100 mg 00 daily. Medical capsule Branch levothyroxi 2020-0 Yes [id number] 150ug Take 1 [facility] ne 150 mcg 5-19 tablet by ity of tablet 00:00: mouth every Medical morning. Branch cholestyram 2020-0 Yes [id number] 2g Take 0.5 [facility] ine 4 gram 5-19 Packets by ity of powder 00:00: mouth 3 (three) Medical times Branch daily with meals. phenytoin 2020-0 Yes [id number] 400mg Take 4 [facility] n[facility] Extended 5-19 capsules ity of (DILANTIN) 00:00: by mouth [place] 100 mg 00 daily. Medical capsule Branch levothyroxi 2020-0 Yes [id number] 150ug Take 1 [facility] ne 150 mcg 5-19 tablet by ity of tablet 00:00: mouth [place] every Medical morning. Branch cholestyram 2020-0 Yes [id number] 2g Take 0.5 [facility] ine 4 gram 5-19 Packets by ity of powder 00:00: mouth 3 (three) Medical times Branch daily with meals. phenytoin 2020-0 Yes [id number] 400mg Take 4 [facility] n[facility] Extended 5-19 capsules ity of (DILANTIN) 00:00: by mouth [place] 100 mg 00 daily. Medical capsule Branch levothyroxi 2020-0 Yes [id number] 150ug Take 1 [facility] ne 150 mcg 5-19 tablet by ity of tablet 00:00: mouth [place] 00 every Medical morning. Branch cholestyram 2020-0 Yes [id number] 2g Take 0.5 [facility] ine 4 gram 5-19 Packets by ity of powder 00:00: mouth 3 (three) Medical times Branch daily with meals. phenytoin 2020-0 Yes [id number] 400mg Take 4 [facility] n[facility] Extended 5-19 capsules ity of (DILANTIN) 00:00: by mouth [place] 100 mg 00 daily. Medical capsule Branch levothyroxi 2020-0 Yes [id number] 150ug Take 1 [facility] ne 150 mcg 5-19 tablet by ity of tablet 00:00: mouth every Medical morning. Branch cholestyram 2020-0 Yes [id number] 2g Take 0.5 [facility] ine 4 gram 5-19 Packets by ity of powder 00:00: mouth (three) Medical times Branch daily with meals. phenytoin 2020-0 Yes [id number] 400mg Take 4 [facility] n[facility] Extended 5-19 capsules ity of (DILANTIN) 00:00: by mouth [place] 100 mg 00 daily. Medical capsule Branch levothyroxi 2019-0 Yes [id number] 150ug Take 1 [facility] ne 150 mcg 5-19 tablet by ity of tablet 00:00: mouth every Medical morning. Branch cholestyram 2020-0 Yes [id number] 2g Take 0.5 [facility] ine 4 gram 5-19 Packets by ity of powder 00:00: mouth (three) Medical times Branch daily with meals. phenytoin 2020-0 Yes [id number] 400mg Take 4 [facility] n[facility] Extended 5-19 capsules ity of (DILANTIN) 00:00: by mouth [place] 100 mg 00 daily. Medical capsule Branch levothyroxi 2020-0 Yes [id number] 150ug Take 1 [facility] ne 150 mcg 5-19 tablet by ity of tablet 00:00: mouth every Medical morning. Branch cholestyram 2020-0 Yes [id number] 2g Take 0.5 [facility] ine 4 gram 5-19 Packets by ity of powder 00:00: mouth (three) Medical times Branch daily with meals. phenytoin 2020-0 Yes [id number] 400mg Take 4 [facility] n[facility] Extended 5-19 capsules ity of (DILANTIN) 00:00: by mouth [place] 100 mg 00 daily. Medical capsule Branch levothyroxi 2020-0 Yes [id number] 150ug Take 1 [facility] ne 150 mcg 5-19 tablet by ity of tablet 00:00: mouth 00 every Medical morning. Branch cholestyram 2020-0 Yes [id number] 2g Take 0.5 [facility] ine 4 gram 5-19 Packets by ity of powder 00:00: mouth 3 (three) Medical times Branch daily with meals. phenytoin 2020-0 Yes [id number] 400mg Take 4 [facility] Extended 5-19 capsules ity of (DILANTIN) 00:00: by mouth [place] 100 mg 00 daily. Medical capsule Branch levothyroxi 2020-0 Yes [id number] 150ug Take 1 [facility] ne 150 mcg 5-19 tablet by ity of tablet 00:00: mouth every Medical morning. Branch cholestyram 2020-0 Yes [id number] 2g Take 0.5 [facility] ine 4 gram 5-19 Packets by ity of powder 00:00: mouth (three) Medical times Branch daily with meals. phenytoin 2020-0 Yes [id number] 400mg Take 4 [facility] n[facility] Extended 5-19 capsules ity of (DILANTIN) 00:00: by mouth [place] 100 mg 00 daily. Medical capsule Branch levothyroxi 2020-0 Yes [id number] 150ug Take 1 [facility] ne 150 mcg 5-19 tablet by ity of tablet 00:00: mouth [place] every Medical morning. Branch cholestyram 2020-0 Yes [id number] 2g Take 0.5 [facility] ine 4 gram 5-19 Packets by ity of powder 00:00: mouth (three) Medical times Branch daily with meals. phenytoin 2020-0 Yes [id number] 400mg Take 4 [facility] n[facility] Extended 5-19 capsules ity of (DILANTIN) 00:00: by mouth [place] 100 mg 00 daily. Medical capsule Branch levothyroxi 2020-0 Yes [id number] 150ug Take 1 [facility] ne 150 mcg 5-19 tablet by ity of tablet 00:00: mouth [place] every Medical morning. Branch cholestyram 2020-0 Yes [id number] 2g Take 0.5 [facility] ine 4 gram 5-19 Packets by ity of powder 00:00: mouth 3 (three) Medical times Branch daily with meals. phenytoin 2020-0 Yes [id number] 400mg Take 4 [facility] n[facility] Extended 5-19 capsules ity of (DILANTIN) 00:00: by mouth [place] 100 mg 00 daily. Medical capsule Branch levothyroxi 2020-0 Yes [id number] 150ug Take 1 [facility] ne 150 mcg 5-19 tablet by ity of tablet 00:00: mouth 00 every Medical morning. Branch cholestyram 2020-0 Yes [id number] 2g Take 0.5 [facility] ine 4 gram 5-19 Packets by ity of powder 00:00: mouth 3 (three) Medical times Branch daily with meals. phenytoin 2020-0 Yes [id number] 400mg Take 4 [facility] n[facility] Extended 5-19 capsules ity of (DILANTIN) 00:00: by mouth [place] 100 mg 00 daily. Medical capsule Branch levothyroxi 2020-0 Yes [id number] 150ug Take 1 [facility] ne 150 mcg 5-19 tablet by ity of tablet 00:00: mouth every Medical morning. Branch cholestyram 2020-0 Yes [id number] 2g Take 0.5 [facility] ine 4 gram 5-19 Packets by ity of powder 00:00: mouth (three) Medical times [facility] daily with meals. phenytoin 2020-0 Yes [id number] 400mg Take 4 [facility] n[facility] Extended 5-19 capsules ity of (DILANTIN) 00:00: by mouth [place] 100 mg 00 daily. Medical capsule Branch levothyroxi 2020-0 Yes [id number] 150ug Take 1 [facility] ne 150 mcg 5-19 tablet by ity of tablet 00:00: mouth every Medical morning. Branch cholestyram 2020-0 Yes [id number] 2g Take 0.5 [facility] ine 4 gram 5-19 Packets by ity of powder 00:00: mouth (three) Medical times [facility] daily with meals. phenytoin 2020-0 Yes [id number] 400mg Take 4 [facility] n[facility] Extended 5-19 capsules ity of (DILANTIN) 00:00: by mouth [place] 100 mg 00 daily. Medical capsule Branch levothyroxi 2020-0 Yes [id number] 150ug Take 1 [facility] ne 150 mcg 5-19 tablet by ity of tablet 00:00: mouth every Medical morning. Branch cholestyram 2020-0 Yes [id number] 2g Take 0.5 [facility] ine 4 gram 5-19 Packets by ity of powder 00:00: mouth (three) Medical times [facility] daily with meals. phenytoin 2020-0 Yes [id number] 400mg Take 4 [facility] n[facility] Extended 5-19 capsules ity of (DILANTIN) 00:00: by mouth [place] 100 mg 00 daily. Medical capsule Branch levothyroxi 2020-0 Yes [id number] 150ug Take 1 [facility] ne 150 mcg 5-19 tablet by ity of tablet 00:00: mouth [place] 00 every Medical morning. Branch cholestyram 2020-0 Yes [id number] 2g Take 0.5 [facility] ine 4 gram 5-19 Packets by ity of powder 00:00: mouth 3 [place] 00 (three) Medical times Branch daily with meals. phenytoin 2019-0 Yes [id number] 400mg Take 4 [facility] n[facility] Extended 5-19 capsules ity of (DILANTIN) 00:00: by mouth [place] 100 mg 00 daily. Medical capsule Branch levothyroxi 2019-0 Yes [id number] 150ug Take 1 [facility] ne 150 mcg 5-19 tablet by ity of tablet 00:00: mouth [place] 00 every Medical morning. Branch cholestyram 2019-0 Yes [id number] 2g Take 0.5 [facility] ine 4 gram 5-19 Packets by ity of powder 00:00: mouth 3 [place] 00 (three) Medical times Branch daily with meals. nystatin 2019- 2020- No [id number] Apply to [facility] 100,000 5-19 08-18 area(s) 2 ity of unit/gram 00:00: 00:00 (two) [place] powder 00 :00 times Medical daily. Branch nystatin 2020-0 2020- No [id number] Apply to [facility] 100,000 5-19 08-18 area(s) 2 ity of unit/gram 00:00: 00:00 (two) [place] powder 00 :00 times Medical daily. Branch LORazepam 1 2019- 2020- No [id number] 1mg Take 1 [facility] mg tablet -02 10-16 tablet by ity of 00:00: 00:00 mouth once [place] 00 :00 daily as Medical needed for Branch Anxiety or Agitation. LORazepam 1 2020- 2020- No [id number] 1mg Take 1 [facility] mg tablet 5-02 10-16 tablet by ity of 00:00: 00:00 mouth once [place] 00 :00 daily as Medical needed for Branch Anxiety or Agitation. FLUoxetine 2020-0 2020- No 60mg Take 3 [facility] ers 20 mg 5- 06-08 capsules ity of capsule 00:00: 00:00 by mouth [place] 00 :00 daily. Medical Branch FLUoxetine 2019- No 60mg Take 3 [facility] ers 20 mg 09-01- capsules ity of capsule 00:00: 00:00 by mouth [place] 00 :00 daily. Medical Branch pantoprazol 2019- No [id number] 40mg Take 1 [facility] e 40 mg EC 5-01 09-21 tablet by ity of tablet 00:00: 00:00 mouth [place] 00 :00 daily as Medical needed for Branch Indigestio n. pantoprazol 2019- No [id number] 40mg Take 1 [facility] e 40 mg EC 5-01 09-21 tablet by ity of tablet 00:00: 00:00 mouth once [place] 00 :00 daily as Medical needed for Branch Indigestio n. LORazepam 1 2019- No [id number] 1mg Take 1 [facility] mg tablet 09-01- tablet by ity of 00:00: 00:00 mouth [place] 00 :00 every Medical other day. Branch PANTOPRAZOL Yes [id number] TAKE 1 [facility] E 40 mg EC 5-12 TABLET BY ity of tablet 00:00: MOUTH [place] 00 TWICE A Medical DAY Branch PANTOPRAZOL 2019-0 Yes [id number] TAKE 1 [facility] E 40 mg EC 5-12 TABLET BY ity of tablet 00:00: MOUTH [place] 00 TWICE A Medical DAY Branch PANTOPRAZOL 2019- No [id number] TAKE 1 [facility] E 40 mg EC 5-12 -19 TABLET BY ity of tablet 00:00: 00:00 MOUTH [place] 00 :00 TWICE A Medical DAY Branch levothyroxi 2019-0 Yes [id number] 150ug Take 1 [facility] ne 150 mcg 4-27 tablet by ity of tablet 00:00: mouth [place] 00 every Medical morning. Branch levothyroxi 2019-0 Yes [id number] 150ug Take 1 [facility] ne 150 mcg 4-27 tablet by ity of tablet 00:00: mouth [place] 00 every Medical morning. Branch levothyroxi 2020- No [id number] 150ug Take 1 [facility] ne 150 mcg 4-27 05-19 tablet by ity of tablet 00:00: 00:00 mouth [place] 00 :00 every Medical morning. Branch acetaminoph 2019-0 Yes [id number] .5{tbl} Take 0.5-1 [facility] en-codeine 4-24 [id number] tablets by it y of (TYLENOL-CO 00:00: mouth [place] DEINE #3) 00 every 4 Medical 300-30 mg (four) Branch tablet hours as needed (pain). Pt medicaid is under her maiden name Cyndie Doan acetaminoph 2020-0 Yes [id number] .5{tbl} Take 0.5-1 [facility] en-codeine 4-24 [id number] tablets by it y of (TYLENOL-CO 00:00: mouth [place] DEINE #3) 00 every 4 Medical 300-30 mg (four) Branch tablet hours as needed (pain). Pt medicaid is under her maiden name Cyndie Doan acetaminoph 2020-0 Yes [id number] .5{tbl} Take 0.5-1 [facility] en-codeine 4-24 [id number] tablets by it y of (TYLENOL-CO 00:00: mouth [place] DEINE #3) 00 every 4 Medical 300-30 mg (four) Branch tablet hours as needed (pain). Pt medicaid is under her maiden name Cyndie Doan acetaminoph 2019-0 Yes [id number] .5{tbl} Take 0.5-1 [facility] en-codeine 4-24 [id number] tablets by it y of (TYLENOL-CO 00:00: mouth [place] DEINE #3) 00 every 4 Medical 300-30 mg (four) Branch tablet hours as needed (pain). Pt medicaid is under her maiden name Cyndie Doan acetaminoph 2019-0 Yes [id number] .5{tbl} Take 0.5-1 [facility] en-codeine 4-24 [id number] tablets by it y of (TYLENOL-CO 00:00: mouth [place] DEINE #3) 00 every 4 Medical 300-30 mg (four) Branch tablet hours as needed (pain). Pt medicaid is under her maiden name Cyndie Doan acetaminoph 2020-0 Yes [id number] .5{tbl} Take 0.5-1 [facility] en-codeine 4-24 [id number] tablets by it y of (TYLENOL-CO 00:00: mouth [place] DEINE #3) 00 every 4 Medical 300-30 mg (four) Branch tablet hours as needed (pain). Pt medicaid is under her maiden name Cyndie Doan acetaminoph 2019-0 Yes [id number] .5{tbl} Take 0.5-1 [facility] en-codeine 4-24 [id number] tablets by it y of (TYLENOL-CO 00:00: mouth [place] DEINE #3) 00 every 4 Medical 300-30 mg (four) Branch tablet hours as needed (pain). Pt medicaid is under her maiden name Cyndie cruzaminoph 2019-0 Yes [id number] .5{tbl} Take 0.5-1 [facility] en-codeine 4-24 [id number] tablets by it y of (TYLENOL-CO 00:00: mouth [place] DEINE #3) 00 every 4 Medical 300-30 mg (four) Branch tablet hours as needed (pain). Pt medicaid is under her maiden name Cyndie Doan acetaminoph 2019-0 Yes [id number] .5{tbl} Take 0.5-1 [facility] en-codeine 4-24 [id number] tablets by it y of (TYLENOL-CO 00:00: mouth [place] DEINE #3) 00 every 4 Medical 300-30 mg (four) Branch tablet hours as needed (pain). Pt medicaid is under her maiden name Cyndie cruzaminoph 0 2020- No [id number] .5{tbl} Take 0.5-1 [facility] en-codeine 4-24 -18 [id number] tablets by i ty of (TYLENOL-CO 00:00: 00:00 mouth [place] DEINE #3) 00 :00 every 4 Medical 300-30 mg (four) Branch tablet hours as needed (pain). Pt medicaid is under her maiden name Cyndie Doan acetaminoph 0 2020- No [id number] .5{tbl} Take 0.5-1 [facility] en-codeine 4-24 08-18 [id number] tablets by i ty of (TYLENOL-CO 00:00: 00:00 mouth [place] DEINE #3) 00 :00 every 4 Medical 300-30 mg (four) Branch tablet hours as needed (pain). Pt medicaid is under her maiden name Cyndie Doan clotrimazol 2019-0 Yes [id number] Apply to [facility] e 1 % 4-21 area(s) 2 ity of topical 00:00: (two) [place] cream 00 times Medical daily. Branch clotrimazol 2020-0 Yes [id number] Apply to [facility] e 1 % 4-21 area(s) 2 ity of topical 00:00: (two) [place] cream 00 times Medical daily. Branch clotrimazol 2020-0 Yes [id number] Apply to [facility] e 1 % 4-21 area(s) 2 ity of topical 00:00: (two) [place] cream 00 times Medical daily. Branch clotrimazol 2020-0 Yes [id number] Apply to [facility] e 1 % 4-21 area(s) 2 ity of topical 00:00: (two) [place] cream 00 times Medical daily. Branch clotrimazol 2020-0 Yes [id number] Apply to [facility] e 1 % 4-21 area(s) 2 ity of topical 00:00: (two) [place] cream 00 times Medical daily. Branch clotrimazol 2020-0 Yes [id number] Apply to [facility] e 1 % 4-21 area(s) 2 ity of topical 00:00: (two) [place] cream 00 times Medical daily. Branch clotrimazol 2020-0 Yes [id number] Apply to [facility] e 1 % 4-21 area(s) 2 ity of topical 00:00: (two) [place] cream 00 times Medical daily. Branch clotrimazol 2020-0 2020- No [id number] Apply to [facility] e 1 % 4-21 05-19 area(s) 2 ity of topical 00:00: 00:00 (two) [place] cream 00 :00 times Medical daily. Branch ketoconazol 2020-0 Yes [id number] Apply to [facility] e 2 % cream 4-17 area(s) 2 ity of 00:00: (two) [place] 00 times Medical daily. Branch ketoconazol 2020-0 Yes [id number] Apply to [facility] e 2 % cream 4-17 area(s) 2 ity of 00:00: (two) [place] 00 times Medical daily. Branch ketoconazol 2020-0 2020- No [id number] Apply to [facility] e 2 % cream 4-17 04-21 area(s) 2 it y of 00:00: 00:00 (two) [place] 00 :00 times Medical daily. Branch ketoconazol 2020-0 2020- No [id number] Apply to [facility] e 2 % cream 4-17 04-21 area(s) 2 it y 00:00: 00:00 (two) [place] 00 :00 times Medical daily. Branch LORazepam 1 2020-0 Yes [id number] 1mg Take 1 [facility] mg tablet 4-07 tablet by ity o f 00:00: mouth 2 (two) Medical times per Branch week for Anxiety or Agitation. LORazepam 1 2020-0 Yes [id number] 1mg Take 1 [facility] mg tablet 4-07 tablet by ity o f 00:00: mouth 2 (two) Medical times per Branch week for Anxiety or Agitation. LORazepam 1 2020-0 Yes [id number] 1mg Take 1 [facility] mg tablet 4-07 tablet by ity o f 00:00: mouth (two) Medical times per Branch week for Anxiety or Agitation. LORazepam 1 2020-0 Yes [id number] 1mg Take 1 [facility] mg tablet 4-07 tablet by ity o f 00:00: mouth (two) Medical times per Branch week for Anxiety or Agitation. LORazepam 1 2020-0 Yes [id number] 1mg Take 1 [facility] mg tablet 4-07 tablet by ity o f 00:00: mouth (two) Medical times per Branch week for Anxiety or Agitation. LORazepam 1 2020-0 Yes [id number] 1mg Take 1 [facility] mg tablet 4-07 tablet by ity o f 00:00: mouth (two) Medical times per Branch week for Anxiety or Agitation. LORazepam 1 2020-0 Yes [id number] 1mg Take 1 [facility] mg tablet 4-07 tablet by ity o f 00:00: mouth (two) Medical times per Branch week for Anxiety or Agitation. LORazepam 1 2020-0 Yes [id number] 1mg Take 1 [facility] mg tablet 4-07 tablet by ity o f 00:00: mouth (two) Medical times per Branch week for Anxiety or Agitation. LORazepam 1 2020-0 Yes [id number] 1mg Take 1 [facility] mg tablet 4-07 tablet by ity o f 00:00: mouth 2 (two) Medical times per Branch week for Anxiety or Agitation. LORazepam 1 2020-0 Yes [id number] 1mg Take 1 [facility] mg tablet 4-07 tablet by ity o f 00:00: mouth 2 (two) Medical times per Branch week for Anxiety or Agitation. LORazepam 1 2020-0 Yes [id number] 1mg Take 1 [facility] mg tablet 4-07 tablet by ity o f 00:00: mouth 2 00 (two) Medical times per Branch week for Anxiety or Agitation. LORazepam 1 2020-0 Yes [id number] 1mg Take 1 [facility] mg tablet 4-07 tablet by ity o f 00:00: mouth 2 00 (two) Medical times per Branch week for Anxiety or Agitation. LORazepam 1 2020-0 2020- No [id number] 1mg Take 1 [facility] mg tablet 4-07 05-19 tablet by ity of 00:00: 00:00 mouth 2 [place] 00 :00 (two) Medical times per Branch week for Anxiety or Agitation. cariprazine 2020-0 Yes 10mg Take 10 mg [facility] HCl 3-24 by mouth ity of (VRAYLAR 13:57: at [place] ORAL) 55 bedtime. Medical Branch cariprazine 2020-0 Yes 10mg Take 10 mg [facility] HCl 3-24 by mouth ity of (VRAYLAR 13:57: at [place] ORAL) 55 bedtime. Medical Branch cariprazine 2020-0 Yes 10mg Take 10 mg [facility] HCl 3-24 by mouth ity of (VRAYLAR 13:57: at [place] ORAL) 55 bedtime. Medical Branch cariprazine 2020-0 Yes 10mg Take 10 mg [facility] HCl 3-24 by mouth ity of (VRAYLAR 13:57: at [place] ORAL) 55 bedtime. Medical Branch cariprazine 2020-0 Yes 10mg Take 10 mg [facility] HCl 3-24 by mouth ity of (VRAYLAR 13:57: at [place] ORAL) 55 bedtime. Medical Branch cariprazine 2020-0 Yes 10mg Take 10 mg [facility] HCl 3-24 by mouth ity of (VRAYLAR 13:57: at [place] ORAL) [address] [facility] Branch cariprazine 2020-0 Yes 10mg Take 10 mg [facility] HCl 3-24 by mouth ity of (VRAYLAR 13:57: at [place] ORAL) [address] [facility] Branch cariprazine 2020-0 Yes 10mg Take 10 mg [facility] HCl 3-24 by mouth ity of (VRAYLAR 13:57: at [place] ORAL) 55 bedtime. Medical Branch cariprazine 2020-0 [...] [place] ORAL) 55 bedtime. Medical Branch pantoprazol 2019-0 2020- No 40mg Take 40 mg [facility] e 40 mg EC 3-24 03-24 by mouth 2 it y of tablet 13:52: 00:00 (two) [place] 30 :00 times Medical daily. Branch phenytoin 2020-0 Yes [id number] 400mg Take 4 U nivers Extended 3-24 capsules ity of (DILANTIN) 00:00: by mouth [place] 100 mg 00 daily. Medical capsule Branch FLUoxetine 2019-0 Yes 40mg Take 1 Un[facility] rs (PROZAC) 40 3-24 capsule by it y of mg capsule 00:00: mouth [place] 00 daily. Medical Branch cholestyram 2020-0 Yes [id number] 2g Take 0.5 [facility] ine 4 gram 3-24 Packets by ity of powder 00:00: mouth 3 [place] 00 (three) Medical times Branch daily with meals. clonazePAM 2020-0 Yes [id number] 1mg Take 1 [facility] 1 mg tablet 3-24 tablet by ity of 00:00: mouth once [place] 00 daily as Medical needed Branch (panic attack). pantoprazol 2020-0 Yes [id number] 40mg Take 1 [facility] e 40 mg EC 3-24 tablet by ity of tablet 00:00: mouth 2 [place] 00 (two) Medical times Branch daily. famotidine 2020-0 Yes [id number] 20mg Take 1 [facility] (PEPCID AC) 3-24 tablet by ity of 20 mg 00:00: mouth 2 [place] tablet 00 (two) Medical times Branch daily. phenytoin 2020-0 Yes [id number] 400mg Take 4 U nivers Extended 3-24 capsules ity of (DILANTIN) 00:00: by mouth [place] 100 mg 00 daily. Medical capsule Branch FLUoxetine 2019-0 Yes 40mg Take 1 [facility] rs (PROZAC) 40 3-24 capsule by it y of mg capsule 00:00: mouth [place] 00 daily. Medical Branch cholestyram 2020-0 Yes [id number] 2g Take 0.5 [facility] ine 4 gram 3-24 Packets by ity of powder 00:00: mouth 3 (three) Medical times Branch daily with meals. clonazePAM 2020-0 Yes [id number] 1mg Take 1 [facility] 1 mg tablet 3-24 tablet by ity of 00:00: mouth once 00 daily as Medical needed Branch (panic attack). pantoprazol 2020-0 Yes [id number] 40mg Take 1 [facility] e 40 mg EC 3-24 tablet by ity of tablet 00:00: mouth 2 [place] 00 (two) Medical times Branch daily. famotidine 2020-0 Yes [id number] 20mg Take 1 [facility] (PEPCID AC) 3-24 tablet by ity of 20 mg 00:00: mouth 2 [place] tablet 00 (two) Medical times Branch daily. phenytoin 2020-0 Yes [id number] 400mg Take 4 U nivers Extended 3-24 capsules ity of (DILANTIN) 00:00: by mouth [place] 100 mg 00 daily. Medical capsule Branch FLUoxetine 2020-0 Yes 40mg Take 1 [facility] rs (PROZAC) 40 3-24 capsule by it y of mg capsule 00:00: mouth 00 daily. Medical Branch cholestyram 2020-0 Yes [id number] 2g Take 0.5 [facility] ine 4 gram 3-24 Packets by ity of powder 00:00: mouth 3 (three) Medical times Branch daily with meals. clonazePAM 2020-0 Yes [id number] 1mg Take 1 [facility] 1 mg tablet 3-24 tablet by ity of 00:00: mouth once 00 daily as Medical needed Branch (panic attack). pantoprazol 2020-0 Yes [id number] 40mg Take 1 [facility] e 40 mg EC 3-24 tablet by ity of tablet 00:00: mouth 2 [place] 00 (two) Medical times Branch daily. famotidine 2020-0 Yes [id number] 20mg Take 1 [facility] (PEPCID AC) 3-24 tablet by ity of 20 mg 00:00: mouth 2 [place] tablet 00 (two) Medical times Branch daily. phenytoin 2020-0 Yes [id number] 400mg Take 4 U nivers Extended 3-24 capsules ity of (DILANTIN) 00:00: by mouth [place] 100 mg 00 daily. Medical capsule Branch FLUoxetine 2020-0 Yes 40mg Take 1 Unive rs (PROZAC) 40 3-24 capsule by it y of mg capsule 00:00: mouth [place] 00 daily. Medical Branch cholestyram 2020-0 Yes [id number] 2g Take 0.5 [facility] ine 4 gram 3-24 Packets by ity of powder 00:00: mouth 3 [place] 00 (three) Medical times Branch daily with meals. clonazePAM 2020-0 Yes [id number] 1mg Take 1 [facility] 1 mg tablet 3-24 tablet by ity of 00:00: mouth once [place] 00 daily as Medical needed Branch (panic attack). pantoprazol 2020-0 Yes [id number] 40mg Take 1 [facility] e 40 mg EC 3-24 tablet by ity of tablet 00:00: mouth 2 [place] 00 (two) Medical times Branch daily. famotidine 2020-0 Yes [id number] 20mg Take 1 [facility] (PEPCID AC) 3-24 tablet by ity of 20 mg 00:00: mouth 2 [place] tablet 00 (two) Medical times Branch daily. phenytoin 2020-0 Yes [id number] 400mg Take 4 U nivers Extended 3-24 capsules ity of (DILANTIN) 00:00: by mouth [place] 100 mg 00 daily. Medical capsule Branch FLUoxetine 2020-0 Yes 40mg Take 1 Unive rs (PROZAC) 40 3-24 capsule by it y of mg capsule 00:00: mouth [place] 00 daily. Medical Branch cholestyram 2020-0 Yes [id number] 2g Take 0.5 [facility] ine 4 gram 3-24 Packets by ity of powder 00:00: mouth 3 00 (three) Medical times Branch daily with meals. clonazePAM 2020-0 Yes [id number] 1mg Take 1 [facility] 1 mg tablet 3-24 tablet by ity of 00:00: mouth once [place] 00 daily as Medical needed Branch (panic attack). pantoprazol 2020-0 Yes [id number] 40mg Take 1 [facility] e 40 mg EC 3-24 tablet by ity of tablet 00:00: mouth 2 [place] 00 (two) Medical times Branch daily. famotidine 2020-0 Yes [id number] 20mg Take 1 [facility] (PEPCID AC) 3-24 tablet by ity of 20 mg 00:00: mouth 2 [place] tablet 00 (two) Medical times Branch daily. phenytoin 2020-0 Yes [id number] 400mg Take 4 U nivers Extended 3-24 capsules ity of (DILANTIN) 00:00: by mouth [place] 100 mg 00 daily. Medical capsule Branch FLUoxetine 2020-0 Yes 40mg Take 1 Unive rs (PROZAC) 40 3-24 capsule by it y of mg capsule 00:00: mouth [place] 00 daily. Medical Branch cholestyram 2020-0 Yes [id number] 2g Take 0.5 [facility] ine 4 gram 3-24 Packets by ity of powder 00:00: mouth 3 [place] 00 (three) Medical times Branch daily with meals. clonazePAM 2020-0 Yes [id number] 1mg Take 1 [facility] 1 mg tablet 3-24 tablet by ity of 00:00: mouth once 00 daily as Medical needed Branch (panic attack). pantoprazol 2020-0 Yes [id number] 40mg Take 1 [facility] e 40 mg EC 3-24 tablet by ity of tablet 00:00: mouth 2 [place] 00 (two) Medical times Branch daily. famotidine 2020-0 Yes [id number] 20mg Take 1 [facility] (PEPCID AC) 3-24 tablet by ity of 20 mg 00:00: mouth 2 [place] tablet 00 (two) Medical times Branch daily. phenytoin 2020-0 Yes [id number] 400mg Take 4 U nivers Extended 3-24 capsules ity of (DILANTIN) 00:00: by mouth [place] 100 mg 00 daily. Medical capsule Branch FLUoxetine 2020-0 Yes 40mg Take 1 Unive rs (PROZAC) 40 3-24 capsule by it y of mg capsule 00:00: mouth [place] 00 daily. Medical Branch cholestyram 2020-0 Yes [id number] 2g Take 0.5 [facility] ine 4 gram 3-24 Packets by ity of powder 00:00: mouth 3 [place] 00 (three) Medical times Branch daily with meals. clonazePAM 2020-0 Yes [id number] 1mg Take 1 [facility] 1 mg tablet 3-24 tablet by ity of 00:00: mouth once [place] 00 daily as Medical needed Branch (panic attack). pantoprazol 2020-0 Yes [id number] 40mg Take 1 [facility] e 40 mg EC 3-24 tablet by ity of tablet 00:00: mouth 2 [place] 00 (two) Medical times Branch daily. famotidine 2020-0 Yes [id number] 20mg Take 1 [facility] (PEPCID AC) 3-24 tablet by ity of 20 mg 00:00: mouth 2 [place] tablet 00 (two) Medical times Branch daily. phenytoin 2020-0 Yes [id number] 400mg Take 4 U nivers Extended 3-24 capsules ity of (DILANTIN) 00:00: by mouth [place] 100 mg 00 daily. Medical capsule Branch FLUoxetine 2020-0 Yes 40mg Take 1 Un[facility] rs (PROZAC) 40 3-24 capsule by it y of mg capsule 00:00: mouth [place] 00 daily. Medical Branch cholestyram 2020-0 Yes [id number] 2g Take 0.5 [facility] ine 4 gram 3-24 Packets by ity of powder 00:00: mouth 3 00 (three) Medical times Branch daily with meals. clonazePAM 2020-0 Yes [id number] 1mg Take 1 [facility] 1 mg tablet 3-24 tablet by ity of 00:00: mouth once [place] 00 daily as Medical needed Branch (panic attack). pantoprazol 2020-0 Yes [id number] 40mg Take 1 [facility] e 40 mg EC 3-24 tablet by ity of tablet 00:00: mouth 2 [place] 00 (two) Medical times Branch daily. famotidine 2020-0 Yes [id number] 20mg Take 1 [facility] (PEPCID AC) 3-24 tablet by ity of 20 mg 00:00: mouth 2 [place] tablet 00 (two) Medical times Branch daily. phenytoin 2020-0 Yes [id number] 400mg Take 4 U nivers Extended 3-24 capsules ity of (DILANTIN) 00:00: by mouth [place] 100 mg 00 daily. Medical capsule Branch FLUoxetine 2020-0 Yes 40mg Take 1 Unive rs (PROZAC) 40 3-24 capsule by it y of mg capsule 00:00: mouth [place] 00 daily. Medical Branch cholestyram 2020-0 Yes [id number] 2g Take 0.5 [facility] ine 4 gram 3-24 Packets by ity of powder 00:00: mouth 3 [place] 00 (three) Medical times Branch daily with meals. pantoprazol 2020-0 Yes [id number] 40mg Take 1 [facility] e 40 mg EC 3-24 tablet by ity of tablet 00:00: mouth 2 [place] 00 (two) Medical times Branch daily. famotidine 2020-0 Yes [id number] 20mg Take 1 [facility] (PEPCID AC) 3-24 tablet by ity of 20 mg 00:00: mouth 2 [place] tablet 00 (two) Medical times Branch daily. phenytoin 2020-0 Yes [id number] 400mg Take 4 U nivers Extended 3-24 capsules ity of (DILANTIN) 00:00: by mouth [place] 100 mg 00 daily. Medical capsule Branch FLUoxetine 2020-0 Yes 40mg Take 1 Unive rs (PROZAC) 40 3-24 capsule by it y of mg capsule 00:00: mouth [place] 00 daily. Medical Branch cholestyram 2020-0 Yes [id number] 2g Take 0.5 [facility] ine 4 gram 3-24 Packets by ity of powder 00:00: mouth 3 (three) Medical times Branch daily with meals. pantoprazol 2020-0 Yes [id number] 40mg Take 1 [facility] e 40 mg EC 3-24 tablet by ity of tablet 00:00: mouth 2 [place] 00 (two) Medical times Branch daily. famotidine 2020-0 Yes [id number] 20mg Take 1 [facility] (PEPCID AC) 3-24 tablet by ity of 20 mg 00:00: mouth 2 [place] tablet 00 (two) Medical times Branch daily. phenytoin 2020-0 Yes [id number] 400mg Take 4 U nivers Extended 3-24 capsules ity of (DILANTIN) 00:00: by mouth [place] 100 mg 00 daily. Medical capsule Branch FLUoxetine 2020-0 Yes 40mg Take 1 Unive rs (PROZAC) 40 3-24 capsule by it y of mg capsule 00:00: mouth [place] 00 daily. Medical Branch cholestyram 2020-0 Yes [id number] 2g Take 0.5 [facility] ine 4 gram 3-24 Packets by ity of powder 00:00: mouth 3 [place] (three) Medical times Branch daily with meals. pantoprazol 2020-0 Yes [id number] 40mg Take 1 [facility] e 40 mg EC 3-24 tablet by ity of tablet 00:00: mouth 2 [place] 00 (two) Medical times Branch daily. famotidine 2020-0 Yes [id number] 20mg Take 1 [facility] (PEPCID AC) 3-24 tablet by ity of 20 mg 00:00: mouth 2 [place] tablet 00 (two) Medical times Branch daily. phenytoin 2020-0 Yes [id number] 400mg Take 4 U nivers Extended 3-24 capsules ity of (DILANTIN) 00:00: by mouth [place] 100 mg 00 daily. Medical capsule Branch FLUoxetine 2020-0 Yes 40mg Take 1 Unive rs (PROZAC) 40 3-24 capsule by it y of mg capsule 00:00: mouth [place] 00 daily. Medical Branch cholestyram 2020-0 Yes [id number] 2g Take 0.5 [facility] ine 4 gram 3-24 Packets by ity of powder 00:00: mouth 3 (three) Medical times Branch daily with meals. pantoprazol 2020-0 Yes [id number] 40mg Take 1 [facility] e 40 mg EC 3-24 tablet by ity of tablet 00:00: mouth 2 [place] (two) Medical times Branch daily. famotidine 2020-0 Yes [id number] 20mg Take 1 [facility] (PEPCID AC) 3-24 tablet by ity of 20 mg 00:00: mouth 2 [place] tablet 00 (two) Medical times Branch daily. phenytoin 2020-0 Yes [id number] 400mg Take 4 U nivers Extended 3-24 capsules ity of (DILANTIN) 00:00: by mouth [place] 100 mg 00 daily. Medical capsule Branch FLUoxetine 2020-0 Yes 40mg Take 1 Unive rs (PROZAC) 40 3-24 capsule by it y of mg capsule 00:00: mouth [place] 00 daily. Medical Branch cholestyram 2020-0 Yes [id number] 2g Take 0.5 [facility] ine 4 gram 3-24 Packets by ity of powder 00:00: mouth (three) Medical times Branch daily with meals. pantoprazol 2020-0 Yes [id number] 40mg Take 1 [facility] e 40 mg EC 3-24 tablet by ity of tablet 00:00: mouth 2 [place] 00 (two) Medical times Branch daily. famotidine 2020-0 Yes [id number] 20mg Take 1 [facility] (PEPCID AC) 3-24 tablet by ity of 20 mg 00:00: mouth 2 [place] tablet 00 (two) Medical times Branch daily. phenytoin 2020-0 Yes [id number] 400mg Take 4 U nivers Extended 3-24 capsules ity of (DILANTIN) 00:00: by mouth [place] 100 mg 00 daily. Medical capsule Branch FLUoxetine 2020-0 Yes 40mg Take 1 Unive rs (PROZAC) 40 3-24 capsule by it y of mg capsule 00:00: mouth 00 daily. Medical Branch cholestyram 2020-0 Yes [id number] 2g Take 0.5 [facility] ine 4 gram 3-24 Packets by ity of powder 00:00: mouth 3 (three) Medical times Branch daily with meals. pantoprazol 2020-0 Yes [id number] 40mg Take 1 [facility] e 40 mg EC 3-24 tablet by ity of tablet 00:00: mouth 2 [place] 00 (two) Medical times Branch daily. famotidine 2020-0 Yes [id number] 20mg Take 1 [facility] (PEPCID AC) 3-24 tablet by ity of 20 mg 00:00: mouth 2 [place] tablet 00 (two) Medical times Branch daily. phenytoin 2020-0 Yes [id number] 400mg Take 4 U nivers Extended 3-24 capsules ity of (DILANTIN) 00:00: by mouth [place] 100 mg 00 daily. Medical capsule Branch FLUoxetine 2020-0 Yes 40mg Take 1 Unive rs (PROZAC) 40 3-24 capsule by it y of mg capsule 00:00: mouth [place] 00 daily. Medical Branch cholestyram 2020-0 Yes [id number] 2g Take 0.5 [facility] ine 4 gram 3-24 Packets by ity of powder 00:00: mouth 3 (three) Medical times Branch daily with meals. pantoprazol 2020-0 Yes [id number] 40mg Take 1 [facility] e 40 mg EC 3-24 tablet by ity of tablet 00:00: mouth 2 [place] 00 (two) Medical times Branch daily. famotidine 2020-0 Yes [id number] 20mg Take 1 [facility] (PEPCID AC) 3-24 tablet by ity of 20 mg 00:00: mouth 2 [place] tablet 00 (two) Medical times Branch daily. phenytoin 2020-0 Yes [id number] 400mg Take 4 U nivers Extended 3-24 capsules ity of (DILANTIN) 00:00: by mouth [place] 100 mg 00 daily. Medical capsule Branch FLUoxetine 2020-0 Yes 40mg Take 1 Un[facility] rs (PROZAC) 40 3-24 capsule by it y of mg capsule 00:00: mouth [place] 00 daily. Medical Branch cholestyram 2020-0 Yes [id number] 2g Take 0.5 [facility] ine 4 gram 3-24 Packets by ity of powder 00:00: mouth 3 [place] 00 (three) Medical times Branch daily with meals. pantoprazol 2020-0 Yes [id number] 40mg Take 1 [facility] e 40 mg EC 3-24 tablet by ity of tablet 00:00: mouth 2 [place] 00 (two) Medical times Branch daily. famotidine 2020-0 Yes [id number] 20mg Take 1 [facility] (PEPCID AC) 3-24 tablet by ity of 20 mg 00:00: mouth 2 [place] tablet 00 (two) Medical times Branch daily. phenytoin 2020-0 Yes [id number] 400mg Take 4 U nivers Extended 3-24 capsules ity of (DILANTIN) 00:00: by mouth [place] 100 mg 00 daily. Medical capsule Branch FLUoxetine 2020-0 Yes 40mg Take 1 [facility] rs (PROZAC) 40 3-24 capsule by it y of mg capsule 00:00: mouth 00 daily. Medical Branch cholestyram 2020-0 Yes [id number] 2g Take 0.5 [facility] ine 4 gram 3-24 Packets by ity of powder 00:00: mouth 3 (three) Medical times Branch daily with meals. pantoprazol 2020-0 Yes [id number] 40mg Take 1 [facility] e 40 mg EC 3-24 tablet by ity of tablet 00:00: mouth 2 00 (two) Medical times Branch daily. famotidine 2020-0 Yes [id number] 20mg Take 1 [facility] (PEPCID AC) 3-24 tablet by ity of 20 mg 00:00: mouth 2 [place] tablet 00 (two) Medical times Branch daily. phenytoin 2020-0 Yes [id number] 400mg Take 4 U nivers Extended 3-24 capsules ity of (DILANTIN) 00:00: by mouth [place] 100 mg 00 daily. Medical capsule Branch FLUoxetine 2020-0 Yes 40mg Take 1 [facility] rs (PROZAC) 40 3-24 capsule by it y of mg capsule 00:00: mouth 00 daily. Medical Branch cholestyram 2020-0 Yes [id number] 2g Take 0.5 [facility] ine 4 gram 3-24 Packets by ity of powder 00:00: mouth 3 00 (three) Medical times Branch daily with meals. pantoprazol 2020-0 Yes [id number] 40mg Take 1 [facility] e 40 mg EC 3-24 tablet by ity of tablet 00:00: mouth 2 [place] 00 (two) Medical times Branch daily. famotidine 2020-0 Yes [id number] 20mg Take 1 [facility] (PEPCID AC) 3-24 tablet by ity of 20 mg 00:00: mouth 2 [place] tablet 00 (two) Medical times Branch daily. phenytoin 2020-0 Yes [id number] 400mg Take 4 U nivers Extended 3-24 capsules ity of (DILANTIN) 00:00: by mouth [place] 100 mg 00 daily. Medical capsule Branch FLUoxetine 2020-0 Yes 40mg Take 1 Un[facility] rs (PROZAC) 40 3-24 capsule by it y of mg capsule 00:00: mouth [place] 00 daily. Medical Branch cholestyram 2020-0 Yes [id number] 2g Take 0.5 [facility] ine 4 gram 3-24 Packets by ity of powder 00:00: mouth 3 (three) Medical times Branch daily with meals. pantoprazol 2020-0 Yes [id number] 40mg Take 1 [facility] e 40 mg EC 3-24 tablet by ity of tablet 00:00: mouth 2 [place] 00 (two) Medical times Branch daily. famotidine 2020-0 Yes [id number] 20mg Take 1 [facility] (PEPCID AC) 3-24 tablet by ity of 20 mg 00:00: mouth 2 [place] tablet 00 (two) Medical times Branch daily. phenytoin 2020-0 Yes [id number] 400mg Take 4 U nivers Extended 3-24 capsules ity of (DILANTIN) 00:00: by mouth [place] 100 mg 00 daily. Medical capsule Branch FLUoxetine 2020-0 Yes 40mg Take 1 Un[facility] rs (PROZAC) 40 3-24 capsule by it y of mg capsule 00:00: mouth [place] 00 daily. Medical Branch cholestyram 2020-0 Yes [id number] 2g Take 0.5 [facility] ine 4 gram 3-24 Packets by ity of powder 00:00: mouth 3 00 (three) Medical times Branch daily with meals. famotidine 2020-0 Yes [id number] 20mg Take 1 [facility] (PEPCID AC) 3-24 tablet by ity of 20 mg 00:00: mouth 2 [place] tablet 00 (two) Medical times Branch daily. phenytoin 2020-0 Yes [id number] 400mg Take 4 U nivers Extended 3-24 capsules ity of (DILANTIN) 00:00: by mouth [place] 100 mg 00 daily. Medical capsule Branch FLUoxetine 2020-0 Yes 40mg Take 1 Un[facility] rs (PROZAC) 40 3-24 capsule by it y of mg capsule 00:00: mouth [place] 00 daily. Medical Branch cholestyram 2020-0 Yes [id number] 2g Take 0.5 [facility] ine 4 gram 3-24 Packets by ity of powder 00:00: mouth 3 (three) Medical times Branch daily with meals. famotidine 2020-0 Yes [id number] 20mg Take 1 [facility] (PEPCID AC) 3-24 tablet by ity of 20 mg 00:00: mouth 2 [place] tablet 00 (two) Medical times Branch daily. phenytoin 2020-0 Yes [id number] 400mg Take 4 U nivers Extended 3-24 capsules ity of (DILANTIN) 00:00: by mouth [place] 100 mg 00 daily. Medical capsule Branch FLUoxetine 2020-0 Yes 40mg Take 1 [facility] rs (PROZAC) 40 3-24 capsule by it y of mg capsule 00:00: mouth 00 daily. Medical Branch cholestyram 2020-0 Yes [id number] 2g Take 0.5 [facility] ine 4 gram 3-24 Packets by ity of powder 00:00: mouth 3 (three) Medical times Branch daily with meals. famotidine 2020-0 Yes [id number] 20mg Take 1 [facility] (PEPCID AC) 3-24 tablet by ity of 20 mg 00:00: mouth 2 [place] tablet 00 (two) Medical times Branch daily. famotidine 2020-0 Yes [id number] 20mg Take 1 [facility] (PEPCID AC) 3-24 tablet by ity of 20 mg 00:00: mouth 2 [place] tablet 00 (two) Medical times Branch daily. famotidine 2020-0 Yes [id number] 20mg Take 1 [facility] (PEPCID AC) 3-24 tablet by ity of 20 mg 00:00: mouth 2 [place] tablet 00 (two) Medical times Branch daily. famotidine 2020-0 Yes [id number] 20mg Take 1 [facility] (PEPCID AC) 3-24 tablet by ity of 20 mg 00:00: mouth 2 [place] tablet 00 (two) Medical times Branch daily. famotidine 2020-0 Yes [id number] 20mg Take 1 [facility] (PEPCID AC) 3-24 tablet by ity of 20 mg 00:00: mouth 2 [place] tablet 00 (two) Medical times Branch daily. famotidine 2020-0 Yes [id number] 20mg Take 1 [facility] (PEPCID AC) 3-24 tablet by ity of 20 mg 00:00: mouth 2 [place] tablet 00 (two) Medical times Branch daily. famotidine 2020-0 Yes [id number] 20mg Take 1 [facility] (PEPCID AC) 3-24 tablet by ity of 20 mg 00:00: mouth 2 [place] tablet 00 (two) Medical times Branch daily. famotidine 2020-0 Yes [id number] 20mg Take 1 [facility] (PEPCID AC) 3-24 tablet by ity of 20 mg 00:00: mouth 2 [place] tablet 00 (two) Medical times Branch daily. famotidine 2020-0 Yes [id number] 20mg Take 1 [facility] (PEPCID AC) 3-24 tablet by ity of 20 mg 00:00: mouth 2 [place] tablet 00 (two) Medical times Branch daily. famotidine 2020-0 Yes [id number] 20mg Take 1 [facility] (PEPCID AC) 3-24 tablet by ity of 20 mg 00:00: mouth 2 [place] tablet 00 (two) Medical times Branch daily. famotidine 2020-0 Yes [id number] 20mg Take 1 [facility] (PEPCID AC) 3-24 tablet by ity of 20 mg 00:00: mouth 2 [place] tablet 00 (two) Medical times Branch daily. famotidine 2020-0 Yes [id number] 20mg Take 1 [facility] (PEPCID AC) 3-24 tablet by ity of 20 mg 00:00: mouth 2 [place] tablet 00 (two) Medical times Branch daily. famotidine 2020-0 Yes [id number] 20mg Take 1 [facility] (PEPCID AC) 3-24 tablet by ity of 20 mg 00:00: mouth 2 [place] tablet 00 (two) Medical times Branch daily. famotidine 2020-0 Yes [id number] 20mg Take 1 [facility] (PEPCID AC) 3-24 tablet by ity of 20 mg 00:00: mouth 2 [place] tablet 00 (two) Medical times Branch daily. famotidine 2020-0 Yes [id number] 20mg Take 1 [facility] (PEPCID AC) 3-24 tablet by ity of 20 mg 00:00: mouth 2 [place] tablet 00 (two) Medical times Branch daily. famotidine 2020-0 Yes [id number] 20mg Take 1 [facility] (PEPCID AC) 3-24 tablet by ity of 20 mg 00:00: mouth 2 [place] tablet 00 (two) Medical times Branch daily. famotidine 2020-0 Yes [id number] 20mg Take 1 [facility] (PEPCID AC) 3-24 tablet by ity of 20 mg 00:00: mouth 2 [place] tablet 00 (two) Medical times Branch daily. famotidine 2020-0 Yes [id number] 20mg Take 1 [facility] (PEPCID AC) 3-24 tablet by ity of 20 mg 00:00: mouth 2 [place] tablet 00 (two) Medical times Branch daily. famotidine 2020-0 Yes [id number] 20mg Take 1 [facility] (PEPCID AC) 3-24 tablet by ity of 20 mg 00:00: mouth 2 [place] tablet 00 (two) Medical times Branch daily. famotidine 2020-0 Yes [id number] 20mg Take 1 [facility] (PEPCID AC) 3-24 tablet by ity of 20 mg 00:00: mouth 2 [place] tablet 00 (two) Medical times Branch daily. pantoprazol 2020-0 Yes [id number] 40mg Take 1 [facility] e 40 mg EC 3-24 tablet by ity of tablet 00:00: mouth 2 [place] 00 (two) Medical times Branch daily. famotidine 2020-0 Yes [id number] 20mg Take 1 Univers (PEPCID AC) 3-24 tablet by ity of 20 mg 00:00: mouth 2 [place] tablet 00 (two) Medical times Branch daily. phenytoin 2020-0 Yes [id number] 400mg Take 4 U nivers Extended 3-24 capsules ity of (DILANTIN) 00:00: by mouth [place] 100 mg 00 daily. Medical capsule Branch FLUoxetine 2020-0 Yes 40mg Take 1 Unive rs (PROZAC) 40 3-24 capsule by it y of mg capsule 00:00: mouth [place] 00 daily. Medical Branch cholestyram 2020-0 Yes [id number] 2g Take 0.5 [facility] ine 4 gram 3-24 Packets by ity of powder 00:00: mouth 3 00 (three) Medical times Branch daily with meals. clonazePAM 2020-0 Yes [id number] 1mg Take 1 [facility] 1 mg tablet 3-24 tablet by ity of 00:00: mouth once [place] 00 daily as Medical needed Branch (panic attack). pantoprazol 2020-0 Yes [id number] 40mg Take 1 [facility] e 40 mg EC 3-24 tablet by ity of tablet 00:00: mouth 2 [place] 00 (two) Medical times Branch daily. famotidine 2020-0 Yes [id number] 20mg Take 1 [facility] (PEPCID AC) 3-24 tablet by ity of 20 mg 00:00: mouth 2 [place] tablet 00 (two) Medical times Branch daily. famotidine 2020-0 2022- No [id number] 20mg Take 1 [facility] (PEPCID AC) 3-24 -10 tablet by it y of 20 mg 00:00: 00:00 mouth 2 [place] tablet 00 :00 (two) Medical times Branch daily. famotidine 2020-0 2022- No [id number] 20mg Take 1 [facility] (PEPCID AC) 3-24 -10 tablet by it y of 20 mg 00:00: 00:00 mouth 2 [place] tablet 00 :00 (two) Medical times Branch daily. famotidine 2020-0 3- No [id number] 20mg Take 1 [facility] (PEPCID AC) 3-24 -10 tablet by it y of 20 mg 00:00: 00:00 mouth 2 [place] tablet 00 :00 (two) Medical times Branch daily. famotidine 2020-0 3- No [id number] 20mg Take 1 Univers (PEPCID AC) 3-24 -10 tablet by it y of 20 mg 00:00: 00:00 mouth 2 [place] tablet 00 :00 (two) Medical times Branch daily. famotidine 2020-0 3- No [id number] 20mg Take 1 [facility] (PEPCID AC) 3-24 -10 tablet by it y of 20 mg 00:00: 00:00 mouth 2 [place] tablet 00 :00 (two) Medical times Branch daily. famotidine 2020-0 3- No [id number] 20mg Take 1 [facility] (PEPCID AC) 3-24 -10 tablet by it y of 20 mg 00:00: 00:00 mouth 2 [place] tablet 00 :00 (two) Medical times Branch daily. phenytoin 2019- No [id number] 400mg Take 4 [facility] Extended 07-07- capsules ity of (DILANTIN) 00:00: 00:00 by mouth [place] 100 mg 00 :00 daily. Medical capsule Branch FLUoxetine 2019- No 40mg Take 1 Univ ers (PROZAC) 40 07-07 capsule by i ty of mg capsule 00:00: 00:00 mouth [place] 00 :00 daily. Medical Branch cholestyram 2019- No [id number] 2g Take 0.5 [facility] ine 4 gram 07-07 Packets by it y of powder 00:00: 00:00 mouth 3 [place] 00 :00 (three) Medical times Branch daily with meals. pantoprazol 2019- No [id number] 40mg Take 1 [facility] e 40 mg EC 07-07 tablet by ity of tablet 00:00: 00:00 mouth 2 [place] 00 :00 (two) Medical times Branch daily. clonazePAM 2019- No [id number] 1mg Take 1 [facility] 1 mg tablet 07-07- tablet by it y of 00:00: 00:00 mouth once [place] 00 :00 daily as Medical needed Branch (panic attack). clonazePAM 2019- No [id number] 1mg Take 1 [facility] 1 mg tablet 07-07 tablet by it y of 00:00: 00:00 mouth 3 [place] 00 :00 (three) Medical times Branch daily. levothyroxi 2019-0 Yes [id number] 150ug Take 1 [facility] ne 150 mcg 3-12 tablet by ity of tablet 00:00: mouth [place] 00 every Medical morning. Branch levothyroxi 2019-0 Yes [id number] 150ug Take 1 [facility] ne 150 mcg 3-12 tablet by ity of tablet 00:00: mouth [place] 00 every Medical morning. Branch levothyroxi 2019-0 Yes [id number] 150ug Take 1 [facility] ne 150 mcg 3-12 tablet by ity of tablet 00:00: mouth [place] 00 every Medical morning. Branch levothyroxi 0 Yes [id number] 150ug Take 1 [facility] ne 150 mcg 3-12 tablet by ity of tablet 00:00: mouth [place] 00 every Medical morning. Branch levothyroxi 2019-0 Yes [id number] 150ug Take 1 [facility] ne 150 mcg 3-12 tablet by ity of tablet 00:00: mouth [place] 00 every Medical morning. Branch levothyroxi 2020-0 Yes [id number] 150ug Take 1 [facility] ne 150 mcg 3-12 tablet by ity of tablet 00:00: mouth [place] 00 every Medical morning. Branch levothyroxi 2020-0 Yes [id number] 150ug Take 1 [facility] ne 150 mcg 3-12 tablet by ity of tablet 00:00: mouth [place] 00 every Medical morning. Branch levothyroxi 2020-0 Yes [id number] 150ug Take 1 [facility] ne 150 mcg 3-12 tablet by ity of tablet 00:00: mouth [place] 00 every Medical morning. Branch levothyroxi 2020-0 Yes [id number] 150ug Take 1 [facility] ne 150 mcg 3-12 tablet by ity of tablet 00:00: mouth [place] 00 every Medical morning. Branch levothyroxi 2020-0 Yes [id number] 150ug Take 1 [facility] ne 150 mcg 3-12 tablet by ity of tablet 00:00: mouth [place] 00 every Medical morning. Branch levothyroxi 2020-0 Yes [id number] 150ug Take 1 [facility] ne 150 mcg 3-12 tablet by ity of tablet 00:00: mouth [place] 00 every Medical morning. Branch levothyroxi 2020-0 Yes [id number] 150ug Take 1 [facility] ne 150 mcg 3-12 tablet by ity of tablet 00:00: mouth [place] 00 every Medical morning. Branch levothyroxi 2020-0 Yes [id number] 150ug Take 1 [facility] ne 150 mcg 3-12 tablet by ity of tablet 00:00: mouth [place] 00 every Medical morning. Branch levothyroxi 2020-0 Yes [id number] 150ug Take 1 [facility] ne 150 mcg 3-12 tablet by ity of tablet 00:00: mouth [place] 00 every Medical morning. Branch levothyroxi 2020-0 Yes [id number] 150ug Take 1 [facility] ne 150 mcg 3-12 tablet by ity of tablet 00:00: mouth [place] 00 every Medical morning. Branch levothyroxi 2020-0 Yes [id number] 150ug Take 1 [facility] ne 150 mcg 3-12 tablet by ity of tablet 00:00: mouth [place] 00 every Medical morning. Branch levothyroxi 2020-0 Yes [id number] 150ug Take 1 [facility] ne 150 mcg 3-12 tablet by ity of tablet 00:00: mouth [place] 00 every Medical morning. Branch levothyroxi 2020-0 Yes [id number] 150ug Take 1 [facility] ne 150 mcg 3-12 tablet by ity of tablet 00:00: mouth [place] 00 every Medical morning. Branch levothyroxi 2020-0 Yes [id number] 150ug Take 1 [facility] ne 150 mcg 3-12 tablet by ity of tablet 00:00: mouth [place] 00 every Medical morning. Branch levothyroxi 2020-0 Yes [id number] 150ug Take 1 [facility] ne 150 mcg 3-12 tablet by ity of tablet 00:00: mouth [place] 00 every Medical morning. Branch levothyroxi 2020-0 Yes [id number] 150ug Take 1 [facility] ne 150 mcg 3-12 tablet by ity of tablet 00:00: mouth [place] 00 every Medical morning. Branch levothyroxi 2020-0 Yes [id number] 150ug Take 1 [facility] ne 150 mcg 3-12 tablet by ity of tablet 00:00: mouth [place] 00 every Medical morning. Branch levothyroxi 2020-0 2020- No [id number] 150ug Take 1 [facility] ne 150 mcg 3-12 04-24 tablet by ity of tablet 00:00: 00:00 mouth [place] 00 :00 every Medical morning. Branch levothyroxi 2020-0 2020- No [id number] 150ug Take 1 [facility] ne 150 mcg 3-12 04-24 tablet by ity of tablet 00:00: 00:00 mouth [place] 00 :00 every Medical morning. Branch oseltamivir 2020-0 Yes [id number] 75mg Take 1 U nivers 75 mg 1-28 capsule by ity of capsule 00:00: mouth 2 [place] 00 (two) Medical times Branch daily. oseltamivir 2020-0 Yes [id number] 75mg Take 1 U nivers 75 mg 1-28 capsule by ity of capsule 00:00: mouth 2 [place] (two) Medical times Branch daily. oseltamivir 2020-0 Yes [id number] 75mg Take 1 U nivers 75 mg 1-28 capsule by ity of capsule 00:00: mouth 2 [place] 00 (two) Medical times Branch daily. oseltamivir 2020-0 Yes [id number] 75mg Take 1 U nivers 75 mg 1-28 capsule by ity of capsule 00:00: mouth 2 [place] 00 (two) Medical times Branch daily. oseltamivir 2020-0 Yes [id number] 75mg Take 1 U nivers 75 mg 1-28 capsule by ity of capsule 00:00: mouth (two) Medical times Branch daily. oseltamivir 2020-0 Yes [id number] 75mg Take 1 U nivers 75 mg 1-28 capsule by ity of capsule 00:00: mouth (two) Medical times Branch daily. oseltamivir 2020-0 Yes [id number] 75mg Take 1 U nivers 75 mg 1-28 capsule by ity of capsule 00:00: mouth (two) Medical times Branch daily. oseltamivir 2020-0 Yes [id number] 75mg Take 1 U nivers 75 mg 1-28 capsule by ity of capsule 00:00: mouth (two) Medical times Branch daily. oseltamivir 2020-0 Yes [id number] 75mg Take 1 U nivers 75 mg 1-28 capsule by ity of capsule 00:00: mouth (two) Medical times Branch daily. oseltamivir 2020-0 Yes [id number] 75mg Take 1 U nivers 75 mg 1-28 capsule by ity of capsule 00:00: mouth [place] (two) Medical times Branch daily. oseltamivir 2020-0 Yes [id number] 75mg Take 1 U nivers 75 mg 1-28 capsule by ity of capsule 00:00: mouth [place] (two) Medical times Branch daily. oseltamivir 2020-0 Yes [id number] 75mg Take 1 U nivers 75 mg 1-28 capsule by ity of capsule 00:00: mouth [place] (two) Medical times Branch daily. oseltamivir 2020-0 Yes [id number] 75mg Take 1 U nivers 75 mg 1-28 capsule by ity of capsule 00:00: mouth [place] (two) Medical times Branch daily. oseltamivir 2020-0 Yes [id number] 75mg Take 1 U nivers 75 mg 1-28 capsule by ity of capsule 00:00: mouth (two) Medical times Branch daily. oseltamivir 2020-0 Yes [id number] 75mg Take 1 U nivers 75 mg 1-28 capsule by ity of capsule 00:00: mouth [place] (two) Medical times Branch daily. oseltamivir 2020-0 Yes [id number] 75mg Take 1 U nivers 75 mg 1-28 capsule by ity of capsule 00:00: mouth (two) Medical times Branch daily. oseltamivir 2020-0 Yes [id number] 75mg Take 1 U nivers 75 mg 1-28 capsule by ity of capsule 00:00: mouth (two) Medical times Branch daily. oseltamivir 2020-0 Yes [id number] 75mg Take 1 U nivers 75 mg 1-28 capsule by ity of capsule 00:00: mouth (two) Medical times Branch daily. oseltamivir 2020-0 Yes [id number] 75mg Take 1 U nivers 75 mg 1-28 capsule by ity of capsule 00:00: mouth (two) Medical times Branch daily. oseltamivir 2020-0 Yes [id number] 75mg Take 1 U nivers 75 mg 1-28 capsule by ity of capsule 00:00: mouth [place] (two) Medical times Branch daily. oseltamivir 2020-0 Yes [id number] 75mg Take 1 U nivers 75 mg 1-28 capsule by ity of capsule 00:00: mouth [place] (two) Medical times Branch daily. oseltamivir 2020-0 Yes [id number] 75mg Take 1 U nivers 75 mg 1-28 capsule by ity of capsule 00:00: mouth (two) Medical times Branch daily. oseltamivir 2020-0 Yes [id number] 75mg Take 1 U nivers 75 mg 1-28 capsule by ity of capsule 00:00: mouth [place] (two) Medical times Branch daily. oseltamivir 2020-0 Yes [id number] 75mg Take 1 U nivers 75 mg 1-28 capsule by ity of capsule 00:00: mouth [place] (two) Medical times Branch daily. oseltamivir 2020-0 Yes [id number] 75mg Take 1 U nivers 75 mg 1-28 capsule by ity of capsule 00:00: mouth [place] (two) Medical times Branch daily. oseltamivir 2020-0 Yes [id number] 75mg Take 1 U nivers 75 mg 1-28 capsule by ity of capsule 00:00: mouth [place] (two) Medical times Branch daily. oseltamivir 2020-0 Yes [id number] 75mg Take 1 U nivers 75 mg 1-28 capsule by ity of capsule 00:00: mouth [place] (two) Medical times Branch daily. oseltamivir 2020-0 Yes [id number] 75mg Take 1 U nivers 75 mg 1-28 capsule by ity of capsule 00:00: mouth 2 [place] 00 (two) Medical times Branch daily. oseltamivir 2020- No [id number] 75mg Take 1 [facility] 75 mg 1-28 05-19 capsule by ity of capsule 00:00: 00:00 mouth 2 [place] 00 :00 (two) Medical times Branch daily. pantoprazol 2018-04- No [id number] 40mg Take 1 [facility] e 40 mg EC 2-20 03-20 tablet by ity of tablet 00:00: 04:59 mouth [place] 00 :00 daily for Medical 90 days. Branch pantoprazol 2018-04- No [id number] 40mg Take 1 [facility] e 40 mg EC 2-20 03-20 tablet by ity of tablet 00:00: 04:59 mouth [place] 00 :00 daily for Medical 90 days. Branch pantoprazol 2018-04- No [id number] 40mg Take 1 [facility] e 40 mg [...] for Wheezing or Shortness of Breath. traZODone 2017-0 Yes 225mg Take 1.5 Uni vers 150 mg 5-17 tablets by ity of tablet 00:00: mouth at [place] 00 bedtime. Medical Branch albuterol 2017-0 Yes [...] mouth [place] 00 daily. Medical Branch clonazePAM 2017- Yes [id number] 1 tablet [facility] 1 mg tablet 5-17 with ity of 00:00: breakfast [place] 00 and lunch, Medical and 2 Branch [...] [place] 00 every Medical morning. Branch albuterol 2017- Yes 2{puff} Inhale 2 U nivers 90 5-17 Puffs ity of mcg/actuati 00:00: every 6 [place] on inhaler 00 (six) Medical hours as Branch needed for Wheezing or Shortness of Breath. phenytoin 2017-0 Yes 100mg Take 1 Unive rs Extended 5-17 capsule by ity o f 100 mg 00:00: mouth 3 [place] capsule 00 (three) Medical times Branch daily. albuterol 2017- Yes 2{puff} Inhale 2 U [...] by ity of tablet 00:00: mouth at [place] 00 bedtime. Medical Branch pantoprazol Yes 40mg Take 1 Univ ers e 40 mg EC 5-17 tablet by ity of tablet 00:00: mouth [place] 00 daily. Medical Branch albuterol Yes 2{puff} Inhale 2 U nivers 90 5-17 Puffs ity of mcg/actuati 00:00: every 6 [place] on inhaler 00 (six) Medical hours as Branch needed for Wheezing or Shortness of Breath. clonazePAM 2017- Yes [id number] 1 tablet [facility] 1 mg tablet 5-17 with ity of 00:00: breakfast [place] 00 and lunch, Medical and 2 Branch tablet at dinner albuterol Yes 2{puff} Inhale 2 U nivers [...] for Wheezing or Shortness of Breath. levothyroxi 2018- Yes 150ug Take 1 Uni vers ne 150 mcg 5-17 tablet by ity of tablet 00:00: mouth [place] 00 every Medical morning. Branch QUEtiapine Yes Take 25 mg U nivers 50 mg 5-17 ( half a ity of tablet 00:00: tablet) in [place] 00 the Medical morning Branch and 150mg (3 tablets) at night albuterol Yes 2{puff} Inhale 2 U nivers 90 5-17 Puffs ity of mcg/actuati 00:00: every 6 [place] on inhaler 00 (six) Medical hours as Branch needed for Wheezing or Shortness of Breath. traZODone Yes 225mg Take 1.5 Uni vers 150 mg 5-17 tablets by ity of tablet 00:00: mouth at [place] 00 bedtime. Medical Branch albuterol Yes 2{puff} [...] tablet by ity of tablet 00:00: mouth [place] 00 every Medical morning. Branch albuterol 2017- Yes 2{puff} Inhale 2 U nivers 90 5-17 Puffs ity of mcg/actuati 00:00: every 6 [place] on inhaler 00 (six) Medical hours as Branch needed for Wheezing or Shortness of Breath. QUEtiapine 2017- Yes Take 25 mg U nivers 50 mg 5-17 ( half a ity of tablet 00:00: tablet) in [place] 00 the Medical morning Branch and 150mg (3 tablets) at night traZODone 2017-0 Yes 225mg Take 1.5 Uni vers 150 mg 5-17 tablets by ity of tablet 00:00: mouth at [place] 00 bedtime. Medical Branch albuterol Yes 2{puff} [...] a ity of tablet 00:00: tablet) in [place] 00 the Medical morning Branch and 150mg (3 tablets) at night traZODone 2018-0 Yes 225mg Take 1.5 Uni vers 150 mg 5-17 tablets by ity of tablet 00:00: mouth at [place] 00 bedtime. Medical Branch albuterol 2017-0 Yes [...] by ity of tablet 00:00: mouth at [place] 00 bedtime. Medical Branch albuterol 2017- Yes [...] a ity of tablet 00:00: tablet) in [place] 00 the Medical morning Branch and 150mg (3 tablets) at night traZODone 2018-0 Yes 225mg Take 1.5 Uni vers 150 mg 5-17 tablets by ity of tablet 00:00: mouth at [place] [address] bedtime. Medical Branch albuterol 2017-0 Yes 2{puff} [...] ity of tablet 00:00: 00:00 tablet) in [facility] 00 :00 the Medical morning Branch and 150mg (3 tablets) at night traZODone 2019- No 225mg Take 1.5 Un maria isabel 150 mg 5-17 03-24 tablets by ity of tablet 00:00: 00:00 mouth at [place] 00 :00 bedtime. Medical Branch levothyroxi 2019- No 150ug Take 1 Un maria isabel ne 150 mcg 5-17 03-12 tablet by ity of tablet 00:00: 00:00 mouth [place] 00 :00 every Medical morning. Branch Vital Signs Vital Name Observation Time Observation Value Comments Source Systolic blood 2022-07-28 13:43:00 157 mm[Hg] Univer sity of pressure [facility] Diastolic blood 2022-07-28 13:43:00 85 mm[Hg] [facility] Heart rate 2022-07-28 13:43:00 78 /min [facility] Body temperature 2022-07-28 13:43:00 [facility].94 [facility] 2022-07-28 13:43:00 162.6 cm [facility] Body weight 2022-07-28 13:43:00 74.844 kg [facility] [place] [facility] BMI 2022-07-28 13:43:00 28.32 kg/m2 [facility] [place] [facility] Systolic blood 2022-07-23 04:56:00 125 mm[Hg] Univer sity of pressure [place] [facility] Diastolic blood 2022-07-23 04:56:00 83 mm[Hg] Unive rsity of pressure [place] [facility] Heart rate 2022-07-23 04:56:00 67 /min [facility] [place] [facility] Respiratory rate 2022-07-23 04:56:00 18 /min [facility] ers[facility] [place] [facility] Oxygen saturation in 2022-07-23 04:56:00 97 /min [facility] of Arterial blood by [facility]xim[facility] Branch Body temperature 2022-07-23 00:40:00 37.06 Rachel [facility] [place] [facility] Body weight 2022-07-23 00:40:00 79.379 kg [facility] [place] [facility] BMI 2022-07-23 00:40:00 30.04 kg/m2 [facility] [place] [facility] Systolic blood 2022-04-25 18:59:00 133 mm[Hg] Univer sity of pressure [place] [facility] Diastolic blood 2022-04-25 18:59:00 82 mm[Hg] Unive rsity of pressure [place] [facility] Heart rate 2022-04-25 18:55:00 81 /min [facility] [place] [facility] Body temperature 2022-04-25 18:55:00 36.61 Rachel [facility] [place] [facility] Respiratory rate 2022-04-25 18:55:00 20 /min [facility] [place] [facility] Body height 2022-04-25 18:55:00 162.6 cm [facility] [place] [facility] Body weight 2022-04-25 18:55:00 78.291 kg [facility] [place] [facility] BMI 2022-04-25 18:55:00 29.63 kg/m2 [facility] [place] [facility] Oxygen saturation in 2022-04-25 18:55:00 99 /min room air University of Arterial blood by [facility]xim[facility] Branch Systolic blood 2019-12-02 14:54:00 133 mm[Hg] Univer sity of pressure [place] [facility] Diastolic blood 2019-12-02 14:54:00 87 mm[Hg] Unive rsity of pressure [facility] Heart rate 2019-12-02 14:54:00 73 /min Universi ty of [facility] [place] [facility] Branch Body temperature 2019-12-02 14:12:00 36.56 Rachel Univ ersity of [facility] Body height 2019-12-02 14:12:00 165.1 cm [facility] [place] [facility] Body weight 2019-12-02 14:12:00 94.167 kg [facility] [place] [facility] BMI 2019-12-02 14:12:00 34.55 kg/m2 Universi ty of [facility] [place] [facility] Branch Oxygen saturation in 2019-12-02 14:12:00 100 /min room air University of Arterial blood by [facility] Pulse oximetry Branch Systolic blood 2019-12-02 14:54:00 133 mm[Hg] Univer sity of pressure [facility] Diastolic blood 2019-12-02 14:54:00 87 mm[Hg] Unive rsity of pressure [facility] Heart rate 2019-12-02 14:54:00 73 /min [facility]i ty of [facility] [place] [facility] Branch Body temperature 2019-12-02 14:12:00 36.56 Rachel Univ ersity of [facility] Body height 2019-12-02 14:12:00 165.1 cm [facility] [place] [facility] Body weight 2019-12-02 14:12:00 94.167 kg [facility] [place] [facility] BMI 2019-12-02 14:12:00 34.55 kg/m2 [facility] [place] [facility] Oxygen saturation in 2019-12-02 14:12:00 100 /min room air University of Arterial blood by [facility] Pulse oximetry Branch Systolic blood 2022-07-28 19:11:27 132 mm[Hg] [facility] [place] [facility] pressure Diastolic blood 2022-07-28 19:11:27 90 mm[Hg] [facility] pressure Heart rate 2022-07-28 19:11:27 86 /min [facility] Body temperature 2022-07-28 19:11:27 36.67 Rachel [facility] [place] [facility] Respiratory rate 2022-07-28 19:11:27 18 /min [facility] [place] [facility] Oxygen saturation in 2022-07-28 19:11:27 97 /min [facility] Arterial blood by Pulse oximetry Body height 2022-07-28 15:47:[address] [facility] Body weight 2022-07-28 15:47:[address] [facility] BMI 2022-07-28 15:47:00 28.32 kg/m2 [facility] BP Systolic 2021-11-25 19:02:00 BP Diastolic 2021-11-25 [...] 2020-09-02 13:54:00 Respiratory Rate 2020-09-02 13:54:00 Procedures Procedure Date / Time Performing Clinician Source Performed CT PELVIS WO CONTRAST [facility]22-07-28 [facility]22-[facility]-28 [facility]22-[facility]-28 16:40[facility] [place] [facility] 2022-07-28 16:40:00 Yasmany Ghotra [facility] spital XR FEMUR 2 VW RIGHT 2022-07-28 [facility]:20[facility] 2 VW 2022-07-28 16:20:[facility] COMP. METABOLIC PANEL 2022-07-23 02:02:00 [facility] [place] [facility] ([id number]) Medical Branch CBC WITH DIFF 2022-07-23 02:02:00 Lisa Murillo [facility] URINALYSIS 2022-07-23 01:59:00 Lisa Murillo [facility] CONSENT/REFUSAL FOR 2022-07-23 00:34:52 [facility] ASSIGNMENT OF BENEFITS 2022-06-15 19:19:00 Doctor Unassigned, No [facility] Name [facility] Branch REFERRAL- 2022-01-10 05:01:00 [facility] No [facility] REQUEST/RESPONSE Name [facility] Plan of Care Planned Activity Planned Date Details Comments Source Future Scheduled 2022-08-08 COVID-19 VACCINE (#1) [facility] Test 01:29:04 [code = COVID-19 VACCINE (#1)] Future Scheduled 2022-08-08 Hepatitis C screening [facility] Test 01:29:04 (procedure) [code = 393338710] Future Scheduled 2022-08-08 Screening for [facility] Test 01:29:04 malignant neoplasm of cervix (procedure) [code = 581248615] Future Scheduled 2022-08-08 BREAST CANCER [facility] Test 01:29:04 SCREENING [code = BREAST CANCER SCREENING] Future Scheduled 2022-08-08 COLONOSCOPY SCREENING [facility] Test 01:29:04 [code = COLONOSCOPY SCREENING] Future Scheduled 2022-08-08 IN[facility]UEN[facility]ACCINE [facility] Test 01:29:04 [code = INFLUENZA VACCINE] Goal Plan of Care Note [code = 24657-9] Goal Plan of Care Note [code = 87780-4] Goal Plan of Care Note [code = 52912-4] Goal Plan of Care Note [code = 77113-4] Goal Plan of Care Note [code = 25623-3] Goal Plan of Care Note [code = 55386-4] Goal Plan of Care Note [code = 00184-2] Goal Plan of Care Note [code = 35049-4] Goal Plan of Care Note [code = 90821-7] Goal Plan of Care Note [code = 12231-4] Goal Plan of Care Note [code = 19049-4] Goal Plan of Care Note [code = 52681-0] Goal Plan of Care Note [code = 06935-0] Goal Plan of Care Note [code = 34661-6] Goal Plan of Care Note [code = 93349-8] Goal Plan of Care Note [code = 66737-6] Goal Plan of Care Note [code = 76049-2] Goal Plan of Care Note [code = 37761-5] Goal Plan of Care Note [code = 84701-8] Goal Plan of Care Note [code = 00058-6] Goal Plan of Care Note [code = 50492-6] Goal Plan of Care Note [code = 98037-2] Goal Plan of Care Note [code = 30771-7] Goal Plan of Care Note [code = 07035-6] Goal Plan of Care Note [code = 90831-9] Goal Plan of Care Note [code = 16914-0] Goal Plan of Care Note [code = 53624-3] Goal Plan of Care Note [code = 59370-4] Goal Plan of Care Note [code = 37461-7] Goal Plan of Care Note [code = 97756-0] Goal Plan of Care Note [code = 47763-0] Goal Plan of Care Note [code = 80006-5] Goal Plan of Care Note [code = 53464-0] Goal Plan of Care Note [code = 36824-5] Goal Plan of Care Note [code = 06506-4] Goal Plan of Care Note [code = 21997-7] Goal Plan of Care Note [code = 04570-4] Goal Plan of Care Note [code = 33790-1] Goal Plan of Care Note [code = 36874-2] Goal Plan of Care Note [code = 11647-6] Goal Plan of Care Note [code = 27235-3] Goal Plan of Care Note [code = 71691-9] Goal Plan of Care Note [code = 57843-6] Goal Plan of Care Note [code = 63401-1] Goal Plan of Care Note [code = 97513-3] Goal Plan of Care Note [code = 64407-6] Goal Plan of Care Note [code = 19133-0] Goal Plan of Care Note [code = 16493-8] Goal Plan of Care Note [code = 35753-2] Goal Plan of Care Note [code = 98177-4] Goal Plan of Care Note [code = 90949-1] Goal Plan of Care Note [code = 13033-9] Goal Plan of Care Note [code = 22963-7] Goal Plan of Care Note [code = 79582-1] Goal Plan of Care Note [code = 84162-0] Goal Plan of Care Note [code = 03679-6] Goal Plan of Care Note [code = 75586-2] Goal Plan of Care Note [code = 67684-3] Goal Plan of Care Note [code = 47298-6] Goal Plan of Care Note [code = 56706-2] Goal Plan of Care Note [code = 36416-7] Goal Plan of Care Note [code = 44523-2] Goal Plan of Care Note [code = 26487-2] Goal Plan of Care Note [code = 80897-9] Goal Plan of Care Note [code = 12241-4] Goal Plan of Care Note [code = 19945-9] Goal Plan of Care Note [code = 08182-3] Goal Plan of Care Note [code = 16711-2] Goal Plan of Care Note [code = 57876-9] Goal Plan of Care Note [code = 47290-4] Goal Plan of Care Note [code = 69640-1] Goal Plan of Care Note [code = 43319-9] Goal Plan of Care Note [code = 45046-8] Goal Plan of Care Note [code = 33633-0] Goal Plan of Care Note [code = 24758-3] Goal Plan of Care Note [code = 68848-2] Goal Plan of Care Note [code = 60250-5] Goal Plan of Care Note [code = 34827-6] Goal Plan of Care Note [code = 50178-3] Goal Plan of Care Note [code = 29862-8] Goal Plan of Care Note [code = 60386-6] Goal Plan of Care Note [code = 15682-2] Goal Plan of Care Note [code = 25741-1] Goal Plan of Care Note [code = 34578-9] Goal Plan of Care Note [code = 95486-8] Goal Plan of Care Note [code = 66128-4] Goal Plan of Care Note [code = 44711-1] Goal Plan of Care Note [code = 85428-9] Goal Plan of Care Note [code = 77273-3] Goal Plan of Care Note [code = 18218-5] Goal Plan of Care Note [code = 93017-2] Goal Plan of Care Note [code = 83732-0] Goal Plan of Care Note [code = 54148-9] Goal Plan of Care Note [code = 18890-6] Goal Plan of Care Note [code = 23572-1] Goal Plan of Care Note [code = 32496-4] Goal Plan of Care Note [code = 62714-7] Goal Plan of Care Note [code = 74589-0] Goal Plan of Care Note [code = 78156-4] Goal Plan of Care Note [code = 68545-4] Goal Plan of Care Note [code = 03557-5] Goal Plan of Care Note [code = 56433-9] Goal Plan of Care Note [code = 83382-8] Goal Plan of Care Note [code = 46518-3] Goal Plan of Care Note [code = 04109-9] Goal Plan of Care Note [code = 13416-2] Goal Plan of Care Note [code = 49790-6] Goal Plan of Care Note [code = 73926-0] Goal Plan of Care Note [code = 67424-9] Goal Plan of Care Note [code = 92636-1] Goal Plan of Care Note [code = 09524-0] Goal Plan of Care Note [code = 98100-1] Goal Plan of Care Note [code = 52133-6] Goal Plan of Care Note [code = 24820-9] Goal Plan of Care Note [code = 99801-9] Goal Plan of Care Note [code = 35635-4] Goal Plan of Care Note [code = 72786-5] Goal Plan of Care Note [code = 53685-8] Goal Plan of Care Note [code = 00769-3] Goal Plan of Care Note [code = 01555-3] Goal Plan of Care Note [code = 41648-3] Goal Plan of Care Note [code = 87661-8] Goal Plan of Care Note [code = 97609-8] Goal Plan of Care Note [code = 54630-2] Goal Plan of Care Note [code = 42037-5] Goal Plan of Care Note [code = 55315-1] Goal Plan of Care Note [code = 71051-0] Goal Plan of Care Note [code = 89123-7] Goal Plan of Care Note [code = 99424-0] Goal Plan of Care Note [code = 15350-4] Goal Plan of Care Note [code = 96965-0] Goal Plan of Care Note [code = 19717-6] Goal Plan of Care Note [code = 40484-3] Goal Plan of Care Note [code = 95829-8] Goal Plan of Care Note [code = 09110-8] Goal Plan of Care Note [code = 91160-9] Goal Plan of Care Note [code = 01802-3] Goal Plan of Care Note [code = 22312-4] Goal Plan of Care Note [code = 20458-9] Goal Plan of Care Note [code = 50823-5] Goal Plan of Care Note [code = 01888-6] Goal Plan of Care Note [code = 27950-3] Goal Plan of Care Note [code = 35525-1] Goal Plan of Care Note [code = 31496-7] Goal Plan of Care Note [code = 02314-5] Goal Plan of Care Note [code = 10332-1] Goal Plan of Care Note [code = 76041-2] Goal Plan of Care Note [code = 51887-4] Goal Plan of Care Note [code = 02284-4] Goal Plan of Care Note [code = 76614-3] Goal Plan of Care Note [code = 18574-2] Goal Plan of Care Note [code = 48806-5] Goal Plan of Care Note [code = 82773-5] Goal Plan of Care Note [code = 40698-9] Goal Plan of Care Note [code = 73275-4] Goal Plan of Care Note [code = 66746-0] Goal Plan of Care Note [code = 05322-0] Goal Plan of Care Note [code = 52970-0] Goal Plan of Care Note [code = 64473-7] Goal Plan of Care Note [code = 18630-1] Goal Plan of Care Note [code = 83777-3] Goal Plan of Care Note [code = 11322-4] Goal Plan of Care Note [code = 93008-6] Goal Plan of Care Note [code = 64494-3] Goal Plan of Care Note [code = 36347-4] Goal Plan of Care Note [code = 55961-0] Goal Plan of Care Note [code = 51413-9] Goal Plan of Care Note [code = 33713-3] Goal Plan of Care Note [code = 68665-2] Goal Plan of Care Note [code = 58431-3] Goal Plan of Care Note [code = 33223-3] Goal Plan of Care Note [code = 19234-0] Goal Plan of Care Note [code = 93474-1] Goal Plan of Care Note [code = 81923-3] Goal Plan of Care Note [code = 20777-1] Goal Plan of Care Note [code = 36157-7] Goal Plan of Care Note [code = 24318-0] Goal Plan of Care Note [code = 24419-8] Goal Plan of Care Note [code = 24956-7] Goal Plan of Care Note [code = 92728-6] Goal Plan of Care Note [code = 91826-4] Goal Plan of Care Note [code = 72989-1] Goal Plan of Care Note [code = 05617-0] Goal Plan of Care Note [code = 45508-3] Goal Plan of Care Note [code = 68970-0] Goal Plan of Care Note [code = 77156-3] Goal Plan of Care Note [code = 28364-5] Goal Plan of Care Note [code = 82350-1] Goal Plan of Care Note [code = 53554-3] Goal Plan of Care Note [code = 80872-5] Goal Plan of Care Note [code = 42368-9] Goal Plan of Care Note [code = 73901-3] Goal Plan of Care Note [code = 45535-5] Goal Plan of Care Note [code = 16115-5] Goal Plan of Care Note [code = 82927-5] Goal Plan of Care Note [code = 47313-2] Goal Plan of Care Note [code = 88473-7] Goal Plan of Care Note [code = 70252-9] Goal Plan of Care Note [code = 45013-4] Goal Plan of Care Note [code = 27967-7] Goal Plan of Care Note [code = 60723-2] Goal Plan of Care Note [code = 80001-9] Goal Plan of Care Note [code = 42995-0] Goal Plan of Care Note [code = 60371-9] Goal Plan of Care Note [code = 69616-7] Goal Plan of Care Note [code = 87158-4] Goal Plan of Care Note [code = 64737-3] Goal Plan of Care Note [code = 09054-0] Goal Plan of Care Note [code = 52949-2] Goal Plan of Care Note [code = 20791-9] Goal Plan of Care Note [code = 14751-8] Goal Plan of Care Note [code = 96500-9] Goal Plan of Care Note [code = 63662-1] Goal Plan of Care Note [code = 20715-9] Goal Plan of Care Note [code = 33608-1] Goal Plan of Care Note [code = 58177-4] Goal Plan of Care Note [code = 65790-3] Goal Plan of Care Note [code = 64509-0] Goal Plan of Care Note [code = 46503-4] Goal Plan of Care Note [code = 89380-8] Goal Plan of Care Note [code = 83018-6] Goal Plan of Care Note [code = 08082-2] Goal Plan of Care Note [code = 06548-0] Goal Plan of Care Note [code = 82890-5] Goal Plan of Care Note [code = 74501-2] Goal Plan of Care Note [code = 48944-8] Goal Plan of Care Note [code = 62828-8] Goal Plan of Care Note [code = 24028-3] Goal Plan of Care Note [code = 32402-3] Goal Plan of Care Note [code = 60768-4] Goal Plan of Care Note [code = 34783-7] Goal Plan of Care Note [code = 66713-8] Goal Plan of Care Note [code = 49208-1] Goal Plan of Care Note [code = 63303-2] Goal Plan of Care Note [code = 27446-4] Goal Plan of Care Note [code = 63249-5] Goal Plan of Care Note [code = 13510-8] Goal Plan of Care Note [code = 67618-4] Goal Plan of Care Note [code = 77513-8] Goal Plan of Care Note [code = 89688-6] Goal Plan of Care Note [code = 80363-6] Goal Plan of Care Note [code = 22346-1] Goal Plan of Care Note [code = 79359-2] Goal Plan of Care Note [code = 84584-3] Goal Plan of Care Note [code = 64385-9] Goal Plan of Care Note [code = 60281-3] Goal Plan of Care Note [code = 67301-2] Goal Plan of Care Note [code = 43141-3] Goal Plan of Care Note [code = 98230-7] Goal Plan of Care Note [code = 32895-5] Goal Plan of Care Note [code = 18704-9] Goal Plan of Care Note [code = 98199-8] Goal Plan of Care Note [code = 91890-5] Goal Plan of Care Note [code = 67486-7] Goal Plan of Care Note [code = 75556-0] Goal Plan of Care Note [code = 91325-6] Goal Plan of Care Note [code = 26865-7] Goal Plan of Care Note [code = 95034-0] Goal Plan of Care Note [code = 75249-3] Goal Plan of Care Note [code = 12628-4] Goal Plan of Care Note [code = 28416-6] Goal Plan of Care Note [code = 17392-3] Goal Plan of Care Note [code = 09525-2] Goal Plan of Care Note [code = 60109-9] Goal Plan of Care Note [code = 81958-7] Goal Plan of Care Note [code = 25359-3] Goal Plan of Care Note [code = 92624-7] Goal Plan of Care Note [code = 37537-1] Encounters Start End Encounter Admission Attending Care Care Encounter Source Date/Time Date/Time Type Type Clinicians Facility Department ID 2021-07-15 Outpatient [facility] [id number] Kidder 14:49:46 [id number] [facility] 2021-07-13 Outpatient [facility] [id number] Kidder 13:18:38 [id number] [facility] 2022-08-07 2022-08-07 Outpatient FOG_Goytia_ AOSM AOSM 652 5538-20 Sowmya 00:00:00 00:00:00 Cody 318882 Ortho pe dic Sports [facility] e 2022-07-28 2022-07-28 Emergency Zuleyma, 1.2.840.1 [id number] 2100 690332 Methodi 10:49:00 14:17:[address] 3.430.2.7 Hospit a .3.371224 l .8 2022-07-28 2022-07-28 Outpatient R BETINATHE [facility] [id number] Univers 09:00:00 09:20:09 STEFANIA víctor [facility] 2022-07-28 2022-07-28 Office [facility] 1.2.840.114 [id number] Univers 09:00:00 09:20:09 Visit Stefania Carter SPECIALTY 350.1.13.10 [id number] Ms kush WALKER [address] [place] [address] 2022-07-28 2022-07-28 Telephone [facility] 1.2.414.826 2495 [id number] Univers 00:00:00 00:00:00 Stefania Carter SPECIALTY 350.1.13.10 [place] [id number] Ms kush Martinez [facility] 2022-07-28 2022-07-28 Emergency ZULEYMA, [facility] 064 [id number] [address] [place] 00:00:00 00:00:00 SETH Duggan [facility] 2022-07-28 2022-07-28 Travel 1.2.840.1 1.2.674.653 6039 [id number] Methodi 00:00:00 00:00:[address] 3.430.2.7 0.2.7.3.698 spita .3.155380 084.8 l .8 2022-07-22 2022-07-23 Emergency X JANE, [facility] ERT [id number] Univers 19:42:00 00:14:00 LISA wylieshelley [facility] 2022-07-22 2022-07-23 Emergency Cacace, TRAUMA 1.2.829.298 [id number] Univers 19:42:00 00:14:00 Lisa [facility] 350.1.13.10 i [place] [id number] [address] 2022-07-06 2022-07-06 Outpatient R MARICARMEN [facility] [id number] Univers 16:10:00 16:10:00 STEFANIA ity of [facility] 2022-07-04 2022-07-04 Outpatient R [facility] [id number] Univers 15:00:00 15:00:00 ity of [facility] 2022-06-30 2022-06-30 Outpatient R [facility] [id number] Univers 09:00:00 09:00:00 ity of [facility] 2022-06-29 2022-06-29 [facility] 1.2.840.114 1 [id number] Univers 00:00:00 00:00:00 Stefania TOBIN 350.1.13.10 it y [facility] 4.2.7.2.686 [phone] [address] 2022-06-15 2022-06-15 [facility] [id number] Univers 13:20:23 23:59:00 ANDERSON ity [facility] 2022-06-15 2022-06-15 [facility] 1.2.840.114 101 [id number] Univers 13:20:23 23:59:00 Encounter Anderson TREJO 350.1.13.10 ity of [place] 4.2.7.2.686 [facility] [id number] [facility] [address] 2022-06-15 2022-06-15 Telephone Lydia [facility] 1.2.840.114 1 [id number] Univers 00:00:00 00:00:00 Dionisio MULTISPEC 350.1.13.10 ity of IALTY 4.2.7.2.686 [facility] [id number] [facility] AND [facility] [address] [facility] 2022-06-15 2022-06-15 Orders Doctor ROBIN 1.2.840.114 [id number] Univers 00:00:00 00:00:00 Only Unassigned, AISHA 350.1.13.10 ity of [facility] 4.2.7.2.686 Dany [id number] [facility] [address] 2022-05-302022-05-30 Outpatient R [facility] [id number] Univers 15:30:00 15:30:00 [facility] 2022-05-04 2022-05-04 Outpatient SFA [facility] [id number] 202 Seth 14:40:00 14:40:00 75976 F Kristian 2022-05-03 2022-05-03 Outpatient [id number]- [id number] e3 5u5877-0 00:00:00 00:00:00 Visit 261b-4edf 61b-4edf-8 -8139-75d 139-01f375 2927767oy 9190eb 2022-04-26 2022-04-26 [facility]phone [facility] 1.2.323.723 5252 1467 Univers 00:00:00 00:00:00 Shermeen PRIMARY 350.1.13.10 i [place] [id number] [facility] [address] 2022-04-25 2022-04-25 Sheet Hanger Pcp-Lab [facility] 1.2.840.114 [id number] [id number] Univers 15:15:00 15:30:00 Visit Lex Ochoa PRIMARY 350.1.13.10 [place] [id number] Ms dical [address] 2022-04-25 2022-04-25 Outpatient R [facility] 1043 [id number] Univers 14:00:00 15:08:22 LEX [facility] 2022-04-25 2022-04-25 Office El Scales Team [facility] 1.2.840. 114 [id number] Univers 14:00:00 15:08:22 Visit Lex Ochoa PRIMARY 350.1.13.10 [place] [id number] Ms dical [address] 2022-03-16 2022-03-16 Outpatient [id number]- [id number] 0200d6-1 00:00:00 00:00:00 Visit 43f0-3672 9p2-8930-3 -19h0-16k 3s9-21j090 3236v77r0 2c67e7 2022-02-27 2022-02-27 Outpatient Issa RUBIO [facility] [id number] [id number] Univers 08:00:00 08:00:00 DOROTEO itshelley [facility] 2022-02-06 2022-02-06 Outpatient Issa SALGADO NINA [facility] 10 [id number] Univers 10:30:00 10:30:00 NINA SALGADO i ty [facility] 2022-02-01 2022-02-01 Outpatient [id number]- [id number] 2m8h09-e 00:00:00 00:00:00 Visit fce7-452a ce7-452a-9 -924a-d2a 24a-e2d095 772b0n308 b1l663 2022-01-27 2022-01-27 Outpatient [id number]- [id number] 42 64io29-e 00:00:00 00:00:00 Visit z6x7-367x 3g8-703c-x -eo9j-j96 d2j-b72t8t w4r876x28 394e27 2022-01-10 2022-01-10 Orders Doctor ROBIN 1.2.840.114 [id number] Univers 00:00:00 00:00:00 Only Unassigned, AISHA 350.1.13.10 ity of [facility] 4.2.7.2.686 Dany as [id number] [address] 2022-01-10 2022-01-10 Outpatient [id number]- [id number] 1f 78129c-5 00:00:00 00:00:00 Visit 7a63-0l7l d85-1o6u-f -n41o-pvm 06b-baa1f0 4v1cy10z1 fa00b2 2022-01-07 2022-01-07 Outpatient z862cd81- [id number] f3 02kx45-7 00:00:00 00:00:00 Visit 2661-44e8 661-44e8-8 -8e11-795 t90-164t79 g57nv900a ri229a 2021-11-30 2021-11-30 Outpatient 1fp5475n- [id number] 6a u5485y-0 00:00:00 00:00:00 Visit 9076-5291 202-4562-8 -9m65-237 v20-013027 7483l8336 6d3631 2021-11-25 2021-11-25 Outpatient zfcby775- [id number] ca cmq249-4 00:00:00 00:00:00 Visit 1694-4ca5 694-4ca5-9 -57o2-819 9g3-7879r9 5q0947968 984780 0135-07-26 2021-11-08 Outpatient 42io5u48- [id number] 42 zp4w03-6 00:00:00 00:00:00 Visit 3yx3-97x6 ce1-48a3-b -d588-3n2 658-7a18e3 6y8690mlf 625efb 2021-06-21 2021-06-21 Out[facility] [id number] Univers 11:00:00 11:00:00 ILA [facility] 2020-07-12 2020-07-12 Outpatient R LALA [facility] [id number] Univers 09:30:00 09:30:00 ATTENDING [facility] 2020-07-01 2020-07-01 [facility] 1.2.840.114 [id number] Univers 00:00:00 00:00:00 Outreach Kirk PRIMARY 350.1.13.10 i ty of Josep CARE 4.2.7.2.686 [place] s PAVILLION [id number] Ms dic[address] 2020-07-01 2020-07-01 Patient [facility] 1.2.840.114 [id number] 00:00:00 00:00:00 Outreach Kirk PRIMARY 350.1.13.10 Josep CARE 4.2.7.2.686 PAVILLION [id number] [facility] 2020-06-30 2020-06-30 Outpatient R BELLO [facility] [id number] Univers 10:40:00 10:40:00 SREEKANTH [facility] 2020-05-06 2020-05-06 Outpatient R DOROTHEA, [facility] [id number] Univers 11:00:00 11:00:00 JUAN CARLOS renee [facility] 2020-03-09 2020-03-09 Iam [facility] 1.2.840.114 [id number] Univers 00:00:00 00:00:00 [place] M PRIMARY 350.1.13.10 [place] [id number] [facility] [address] 2020-03-09 2020-03-09 Iam [facility] 1.2.840.114 [id number] 133 00:00:00 00:00:00 [place] M PRIMARY 350.1.13.10 CARE 4.2.7.2.686 PAVILLION [id number] 390 2020-01-27 2020-01-27 Iam [facility] 1.2.840.114 [id number] 652 Univers 00:00:00 00:00:00 [place] M PRIMARY 350.1.13.10 [place] [id number] [facility] [address] 2020-01-27 2020-01-27 Iam [facility] 1.2.840.114 [id number] 652 00:00:00 00:00:00 Ila M PRIMARY 350.1.13.10 CARE 4.2.7.2.686 PAVILLION [id number] 390 2019-12-28 2019-12-28 Iam FuenteslaniUN[facility] 1.2.840.114 [id number] Univers 00:00:00 00:00:00 Lynda PRIMARY 350.1.13.10 [place] [id number] [facility] [address] 2019-12-28 2019-12-28 Iam Car[facility] 1.2.840.114 [id number] 350 00:00:00 00:00:00 Lynda PRIMARY 350.1.13.10 CARE 4.2.7.2.686 PAVILLION [id number] [facility] 2019-12-25 2019-12-25 Outpatient R KE[facility]ETHE [facility] [id number] Univers 13:30:00 13:30:00 STEFANIA shelley [facility] 2019-12-24 2019-12-24 Iam ShultzUN[facility] 1.2.840.114 [id number] Univers 00:00:00 00:00:00 Lynda PRIMARY 350.1.13.10 [place] [id number] [address] 2019-12-24 2019-12-24 Hectorcarlitos AlfredolaniUNM CHIL[facility] 1.2.840.114 [id number] 00:00:00 00:00:00 Lydna PRIMARY 350.1.13.10 CARE 4.2.7.2.686 PAVILLION [id number] [facility] 2019-12-18 2019-12-18 Outpatient Issa SALDIVARTHE [facility] [id number] Univers 08:30:00 08:30:00 [facility] 2019-12-12 2019-12-12 Iam [facility] 1.2.840.114 [id number] 078 [facility] 00:00:00 00:00:00 Juan Carlos J PRIMARY 350.1.13.10 it [place] [id number] [address] 2019-12-12 2019-12-12 [facility] 1.2.840.114 [id number] 078 00:00:00 00:00:00 Juan Carlos J PRIMARY 350.1.13.10 CARE 4.2.7.2.686 PAVILLION [id number] [facility] 2019-12-10 2019-12-10 Outpatient Issa [facility]DIVARTHE [facility] [id number] Univers 11:00:00 11:00:00 ILA [facility] 2019-12-09 2019-12-09 Iam [facility] 1.2.840.114 [id number] Univers 00:00:00 00:00:00 Juan Carlos J PRIMARY 350.1.13.10 it [place] [id number] Ms dical [address] 2019-12-09 2019-12-09 Refill [facility] 1.2.840.114 [id number] 832 [facility] 00:00:00 00:00:00 Ila M PRIMARY 350.1.13.10 it [place] [id number] Ms dical [address] 2019-12-09 2019-12-09 Refill [facility] 1.2.840.114 [id number] 474 00:00:00 00:00:00 Juan Carlos J PRIMARY 350.1.13.10 CARE 4.2.7.2.686 PAVILLION [id number] [facility] 2019-12-09 2019-12-09 [facility] 1.2.840.114 [id number] 832 00:00:00 00:00:00 Ila M PRIMARY 350.1.13.10 CARE 4.2.7.2.686 PAVILLION [id number] [facility] 2019-12-04 2019-12-04 Telephone [facility] 1.2.840.114 [id number] [id number] [facility] 00:00:00 00:00:00 Lynda PRIMARY 350.1.13.10 it [place] [id number] Ms dical [address] 2019-12-04 2019-12-04 [facility] 1.2.840.114 776 [id number] 00:00:00 00:00:00 Lynda PRIMARY 350.1.13.10 CARE 4.2.7.2.686 PAVILLION [id number] [facility] 2019-12-02 2019-12-02 Office [facility] 1.2.840.114 [id number] 213 [facility] 09:06:15 10:45:17 Visit Juan Carlos J PRIMARY 350.1.13.10 it [place] of [place] [id number] Ms dical [address] 2019-12-02 2019-12-02 Office Dorothea [facility] 1.2.840.114 [id number] 213 09:06:15 10:45:17 Visit Juan Carlos J PRIMARY 350.1.13.10 CARE 4.2.7.2.686 PAVILLION [id number] [facility] 2019-12-02 2019-12-02 Outpatient R DOROTHEA [facility] [id number] Univers 09:30:00 09:30:00 [facility] 2019-12-02 2019-12-02 Telephone [facility] 1.2.840.114 [id number] [id number] Univers 00:00:00 00:00:00 Juan Carlos J PRIMARY 350.1.13.10 it [place] [id number] [address] 2019-12-01 2019-12-01 Outpatient R YARIEL [facility] [id number] Univers 10:00:00 10:00:[facility]15 2019-10-15 Outpatient R LALA, [facility] [id number] Univers 13:30:00 13:30:00 ATTENDING [facility] 2019-10-09 2019-10-09 Refcarlitos [facility]UN[facility] 1.2.840.114 [id number] Univers 00:00:00 00:00:00 Lynda PRIMARY [id number] [id number] [id number] [address] 2019-10-08 2019-10-08 Telephone [facility] 1.2.840.114 [id number] Univers 00:00:00 00:00:00 Lynda PRIMARY [id number] [id number] [phone] [facility] [address] 2019-10-06 2019-10-06 Iam [facility] 1.2.840.114 [id number] Univers 00:00:00 00:00:00 Ila M PRIMARY [id number] [id number] [id number] [facility] [address] 2019-09-30 2019-09-30 Telemedici [facility]ielUN[facility] 1.2.840.114 [id number] Univers 09:56:40 10:26:40 ne Visit Ila Pelletier PRIMARY [id number] i ty of [place] [id number] [id number] [facility] [address] 2019-09-30 2019-09-30 [facility] [id number] Univers 09:30:00 09:30:00 [facility] 2019-09-22 2019-09-22 [facility] 1.2.840.114 [id number] Univers 00:00:00 00:00:00 Lynda PRIMARY [id number] [id number] [id number] [facility] [address] 2019-09-02 2019-09-04 [facility] 1.2.840.114 [id number] Univers 07:24:21 09:05:02 ne Visit Lynda PRIMARY [id number] i ty of [place] [id number] [phone] [facility] [address] 2019-09-04 2019-09-04 [facility] AlfredolaniUN[facility] 1.2.840.114 [id number] Univers 00:00:00 00:00:00 Lynda PRIMARY [id number] [id number] [id number] [facility] [address] 2019-09-02 2019-09-02 Outpatient Issa [facility] [id number] Univers 11:00:00 11:00:00 LYNDA ity [facility] 2019-09-01 2019-09-01 Sheet [facility] UN[facility]ERSIT 1.2.840.114 [id number] Univers 08:58:21 09:13:21 Visit Juan Carlos Arango [facility] [id number] ity of [id number] [id number] [address] 2019-09-01 2019-09-01 Outpatient R DOROTHEA [facility] [id number] Univers 09:00:00 09:00:00 JUAN CARLOS renee [facility] 2019-08-24 2019-08-24 [facility]ultzUN[facility] 1.2.840.114 [id number] Univers 00:00:00 00:00:00 Lynda PRIMARY 350.1.13.10 it [id number] [id number] [address] 2019-08-08 2019-08-08 Outpatient Iss[facility] [id number] Univers 14:20:00 14:20:00 JVJOEL renee [facility] 2019-08-07 2019-08-07 [facility]phone [facility] 1.2.840.114 [id number] Univers 00:00:00 00:00:00 Lynda PRIMARY 350.1.13.10 [place] [id number] [address] 2019-08-07 2019-08-07 [place] [facility] [id number] Univers 00:00:00 00:00:00 Deepam PRIMARY 350.1.13.10 [place] [id number] [address] 2019-08-06 2019-08-06 [facility] [place] 1.2.840.114 [id number] Univers 00:00:00 00:00:00 Lynda PRIMARY 350.1.13.10 [place] [id number] [address] 2019-08-05 2019-08-05 Telephone [facility] 1.2.650.050 [id number] Univers 00:00:00 00:00:00 Deepam PRIMARY 350.1.13.10 [place] [id number] [address] 2019-08-01 2019-08-01 Outpatient R [facility] [id number] [facility] 15:10:00 15:10:00 PAULINA ity of [facility] 2019-08-01 2019-08-01 Telemedici Mick Jaime [facility] 1.2.840. 114 [id number] [facility] 13:53:58 14:23:58 [facility] PRIMARY 350.1.13. 10 [place] [id number] [address] 2019-08-01 2019-08-01 [facility] 1.2.840.114 [id number] Univers 00:00:00 00:00:00 Lynda PRIMARY 350.1.13.10 [place] [id number] [address] 2019-08-01 2019-08-01 Telephone [facility] 1.2.840.114 [id number] Univers 00:00:00 00:00:00 Lynda PRIMARY 350.1.13.10 [place] [id number] [address] 2019-07-28 2019-07-28 [facility] 1.2.840.114 [id number] Univers 00:00:00 00:00:00 Lynda PRIMARY 350.1.13.10 it [place] [id number] [address] 2019-07-21 2019-07-21 [facility] 1.2.840.114 [id number] Univers 00:00:00 00:00:00 Lynda PRIMARY 350.1.13.10 it [place] [phone] [address] 2019-07-18 2019-07-18 [facility] 1.2.840.114 [id number] Univers 00:00:00 00:00:00 Lynda PRIMARY 350.1.13.10 [place] [id number] [address] 2019-07-17 2019-07-17 Refill [facility] 1.2.840.114 [id number] Univers 00:00:00 00:00:00 Lynda PRIMARY 350.1.13.10 it y [place] [id number] [address] 2019-07-16 2019-07-16 [facility] 1.2.840.114 [id number] Univers 00:00:00 00:00:00 Lynda PRIMARY 350.1.13.10 it y [place] [id number] [address] 2019-07-14 2019-07-14 Telephone [facility] 1.2.840.114 [id number] Univers 00:00:00 00:00:00 Lynda PRIMARY 350.1.13.10 it y [place] [id number] [address] 2019-07-14 2019-07-14 [facility] 1.2.840.114 [id number] Univers 00:00:00 00:00:00 Lynda PRIMARY 350.1.13.10 it [place] [id number] [address] 2019-07-08 2019-07-08 Telemedici [facility] 1.2.840.114 [id number] Univers 08:06:45 08:36:45 ne Visit Lynda PRIMARY 350.1.13.10 i ty of C[place] [id number] [address] 2019-07-08 2019-07-08 Outpatient R CARRINGTON [facility] [id number] Univers 08:30:00 08:30:00 LYNDA ity of [facility] 2019-07-06 2019-07-06 Nurse ROBIN Vogel 1.2.840.114 [id number] Univers 00:00:00 00:00:00 Triage Mariangel A AISHA 350.1.13.10 i ty of [facility] 4.2.7.2.686 Dany as [id number] [facility] [address] 2019-07-06 2019-07-06 Telephone [facility] 1.2.840.114 [id number] Univers 00:00:00 00:00:00 Lynda PRIMARY 350.1.13.10 it [place] [phone] [facility] [address] 2019-06-24 2019-06-24 Refill [facility] 1.2.840.114 [id number] Univers 00:00:00 00:00:00 Lynda PRIMARY 350.1.13.10 it [place] [id number] [facility] [address] 2019-05-13 2019-05-13 Telephone [facility] 1.2.840.114 [id number] Univers 00:00:00 00:00:00 Lynda PRIMARY 350.1.13.10 it [place] [id number] [address] 2019-05-13 2019-05-13 Telephone [facility] 1.2.331.731 [id number] Univers 00:00:00 00:00:00 Christopher PRIMARY 350.1.13.10 ity of [place] [id number] [address] 2019-04-04 2019-04-04 Outpatient Issa DEAN [facility] [id number] Univers 14:50:00 15:10:33 BRADEN ity of [facility] 2018-12-30 2018-12-30 Telephone [facility] 1.2.945.737 [id number] Univers 00:00:00 00:00:00 Jasson-Monika PRIMARY 350.1.13.10 ity of [place] [phone] [facility] [address] 2018-11-25 2018-11-25 [facility] Arturo Rowley 1.2.840.114 [id number] Univers 06:56:56 23:59:00 Encounter Aparna Mathur [facility] 350.1.13.10 ity of Unit 4.2.7.2.686 [facility] [id number] [facility] selin [address] 2017-09-05 2017-10-23 Outpatient [facility] [id number] [place] 00:00:00 00:00:[address] [facility] 2017-10-18 2017-10-18 [facility] [id number] [place] 21:09:01 21:09:[address] [facility] 2016-04-27 2016-09-27 [facility] [id number] [place] 00:00:00 00:00:[address] [facility] Results Test Description Test Time Test Comments Results Result Comments Source COMP. METABOLIC PANEL (38655) 2022-07-23 02:32:10 Test Item Value Reference Range Interpretation Comme nts NA (test code = 7118788188) 139 mmol/L 135-145 K (test code = 4981433495) 3.4 mmol/L 3.5-5.0 L CL (test code = 6811727007) 103 mmol/L 98-108 CO2 TOTAL (test code = 3556372950) 28 mmol/L 23-31 AGAP (test code = 0371443340) 8 2-16 BUN (test code = 9085690380) 9 mg/dL 7-23 GLUCOSE (test code = 6256267873) 77 mg/dL 70-110 CREATININE (test code = 0.82 mg/dL 0.50-1.04 0549971438) TOTAL BILI (test code = 0.4 mg/dL 0.1-1.1 1477623396) CALCIUM (test code = 4869744004) 9.0 mg/dL 8.6-10.6 T PROTEIN (test code = 5835532519) 7.3 g/dL 6.3-8.2 ALBUMIN (test code = 4983729074) 4.3 g/dL 3.5-5.0 ALK PHOS (test code = 9897306775) 98 U/L 34-122 ALTv (test code = 1742-6) 20 U/L 5-35 AST(SGOT) (test code = 3464874974) 23 U/L 13-40 eGFR (test code = 5868013755) 75.4 mL/min/1.73m2 JAQUELIN (test code = JAQUELIN) Association of Glomerular Filtration Rate (GFR) and Staging of Kidney Disease* + +-------- + ------+| GFR (mL/min/1.73 m2) ?| With Kidney Damage ?| ?Without Kidney Damage+ +-- + +| ?>90 ?| ?Stage one ?| ? Normal ?+ +------- + -------+| ?60-89 ?| ?Stage two ?| ? Decreased GFR ? + +-------- + ------+| ?30-59 ?| ?Stage three ?| ? Stage three ? + +-------- + ------+| ?15-29 ?| ?Stage four ? | ? Stage four ?+ +------- + -------+| ?<15 (or dialysis) ? ?| ?Stage five ? | ? Stage five ?+ +------- + -------+ *Each stage assumes the associated GFR level has been in effect for at least three months. ?Stages 1 to 5, with or without kidney disease, indicate chronic kidney disease. Notes: Determination of stages one and two (with eGFR >59mL/min/1.73 m2) requires estimation of kidney damage for at least three months as defined by structural or functional abnormalities of the kidney, manifested by either:Pathological abnormalities or Markers of kidney damage (including abnormalities in the composition of the blood or urine or abnormalities in imaging tests). Lab Interpretation (test code = Abnormal 95093-8) [facility] WITH [id number] 02:21:48 Test Item Value Reference Range Interpretation Comments WBC (test code = 10.63 See_Comment [Automated 1811-2) message] The sy stem which generated this result transmitted reference range : 4.30 - 11.10 10*3/?L. The reference range was not used to interpret this result as normal/abnormal . RBC (test code = 4.30 See_Comment [Automated 948-9) message] The sy stem which generated this result transmitted reference range : 3.93 - 5.25 10*6/?L. The reference range was not used to interpret this result as normal/abnormal . HGB (test code = 12.4 g/dL 11.6-15.0 718-7) HCT (test code = 37.4 % 35.7-45.2 4544-3) MCV (test code = 87.0 fL 80.6-95.5 787-2) MCH (test code = 28.8 pg 25.9-32.8 785-6) MCHC (test code = 33.2 g/dL 31.6-35.1 786-4) RDW-SD (test code = 47.6 fL 39.0-49.9 57938-1) RDW-CV (test code = 15.1 % 12.0-15.5 788-0) PLT (test code = 341 See_Comment [Automated 777-3) message] The sy stem which generated this result transmitted reference range : 166 - 358 10*3/ ?L. The reference r shahana was not used to interpret this result as normal/abnormal . MPV (test code = 9.8 fL 9.5-12.9 18608-4) NRBC/100 WBC (test 0.0 See_Comment [Automat ed code = 3645147808) message] The system which generated this result transmitted reference range : 0.0 - 10.0 /100 WBCs. The refer ence range was not u sed to interpret th is result as normal/abnormal . NRBC x10^3 (test code See_Comment [Auto mated = 5366831341) message] The s ystem which generated this result transmitted reference range : 10*3/?L. The reference range was not used to interpret this result as normal/abnormal . GRAN MAT (NEUT) % 67.0 % (test code = 770-8) IMM GRAN % (test code 0.30 % = 0761235120) LYMPH % (test code = 24.5 % 736-9) MONO % (test code = 6.9 % 5905-5) EOS % (test code = 0.7 % 713-8) BASO % (test code = 0.6 % 706-2) GRAN MAT x10^3(ANC) 7.14 10*3/uL 1.88-7.09 H (test code = 9384789060) IMM GRAN x10^3 (test 0.03 10*3/uL 0.00-0.06 code = 2600222446) LYMPH x10^3 (test code 2.60 10*3/uL 1.32-3.29 = 731-0) MONO x10^3 (test code 0.73 10*3/uL 0.33-0.92 = 742-7) EOS x10^3 (test code = 0.07 10*3/uL 0.03-0.39 711-2) BASO x10^3 (test code 0.06 10*3/uL 0.01-0.07 = 704-7) Lab Interpretation Abnormal (test code = 03985-5) [facility] [id number] 00:00:00 Test Item Value Reference Range Interpretation Comments GLUCOSE (test code = 2217) 93 MG/DL BUN (test code = 2208) 10 MG/DL CREATININE (test code = 2214) 0.81 MG/DL eGFR AMER. (test code 103 ML/MIN/1.73 = 90415) eGFR NON- AMER. (test 89 ML/MIN/1.73 code = 25881) CALC BUN/CREAT (test code = 12 RATIO 2235) SODIUM (test code = 2231) 140 MEQ/L POTASSIUM (test code = 2228) 4.5 MEQ/L CHLORIDE (test code = 2215) 101 MEQ/L CARBON DIOXIDE (test code = 27 MEQ/L 2206) CALCIUM (test code = 2209) 10.4 MG/DL PROTEIN, TOTAL (test code = 7.9 G/DL 2229) ALBUMIN (test code = 2201) 5.0 G/DL CALC GLOBULIN (test code = 2.9 G/DL 2240) CALC A/G RATIO (test code = 1.7 RATIO 2234) BILIRUBIN, TOTAL (test code = <0.2 MG/DL 220) ALKALINE PHOSPHATASE (test 104 U/L code = 2204) AST (test code = 2218) 24 U/L ALT (test code = 2219) 22 U/L COMPREHENSIVE METABOLIC [id number] 00:00:00 Test Item Value Reference Range Interpretation Comments GLUCOSE (test code = 2217) 93 MG/DL BUN (test code = 2208) 10 MG/DL CREATININE (test code = 2214) 0.81 MG/DL eGFR AMER. (test code 103 ML/MIN/1.73 = 85590) eGFR NON- AMER. (test 89 ML/MIN/1.73 code = 26297) CALC BUN/CREAT (test code = 12 RATIO 2235) SODIUM (test code = 2231) 140 MEQ/L POTASSIUM (test code = 2228) 4.5 MEQ/L CHLORIDE (test code = 2215) 101 MEQ/L CARBON DIOXIDE (test code = 27 MEQ/L 220) CALCIUM (test code = 2209) 10.4 MG/DL PROTEIN, TOTAL (test code = 7.9 G/DL 2228) ALBUMIN (test code = 2201) 5.0 G/DL CALC GLOBULIN (test code = 2.9 G/DL 2240) CALC A/G RATIO (test code = 1.7 RATIO 4) BILIRUBIN, TOTAL (test code = <0.2 MG/DL 2206) ALKALINE PHOSPHATASE (test 104 U/L code = 2204) AST (test code = 2218) 24 U/L ALT (test code = 2219) 22 U/L CBC W/AUTO [id number] 00:00:00 Test Item Value Reference Range Interpretation [...] NUCLEATED RBCS (test code = 0.00 K/UL 65900) CBC W/AUTO [id number] 00:00:00 Test Item Value Reference Range Interpretation [...] NUCLEATED RBCS (test code = 0.00 K/UL 24804) CBC W/AUTO [id number] 00:00:00 Test Item Value Reference Range Interpretation [...] NUCLEATED RBCS (test code = 0.00 K/UL 90214) LIPID [id number] 00:00:00 Test Item Value Reference Range Interpretation Comments CHOLESTEROL (test code = 2210) 328 MG/DL TRIGLYCERIDES (test code = 2232) 614 MG/DL HDL CHOLESTEROL (test code = 42 MG/DL 2220) CALC LDL CHOL (test code = 2237) (NOTE) MG/DL RISK RATIO LDL/HDL (test code = (NOTE) RATIO 2238) LIPID [id number] 00:00:00 Test Item Value Reference Range Interpretation Comments CHOLESTEROL (test code = 2210) 328 MG/DL TRIGLYCERIDES (test code = 2232) 614 MG/DL HDL CHOLESTEROL (test code = 42 MG/DL 2220) CALC LDL CHOL (test code = 2237) (NOTE) MG/DL RISK RATIO LDL/HDL (test code = (NOTE) RATIO 2238) [id number] 00:00:00 Test Item Value Reference Range Interpretation Comments TSH, THIRD GENERATION (test code 4.310 UIU/ML = 2821) [id number] 00:00:00 Test Item Value Reference Range Interpretation Comments TSH, THIRD GENERATION (test code 4.310 UIU/ML = 2821) [id number] 00:00:00 Test Item Value Reference Range Interpretation Comments TSH, THIRD GENERATION (test code 4.310 UIU/ML = 2821) HEMOGLOBIN [id number] 00:00:00 Test Item Value Reference Range Interpretation Comments HEMOGLOBIN A1c (test code = 75556) 5.4 % HEMOGLOBIN [id number] 00:00:00 Test Item Value Reference Range Interpretation Comments HEMOGLOBIN A1c (test code = 71193) 5.4 % HEMOGLOBIN [id number] 00:00:00 Test Item Value Reference Range Interpretation Comments HEMOGLOBIN A1c (test code = 44014) 5.4 % [id number] 00:00:00 Test Item Value Reference Range Interpretation Comments LITHIUM (test code = 2039) 0.63 MEQ/L [id number] 00:00:00 Test Item Value Reference Range Interpretation Comments LITHIUM (test code = 2039) 0.63 MEQ/L [id number] 00:00:00 Test Item Value Reference Range Interpretation Comments LITHIUM (test code = 2039) 0.63 MEQ/L COMPREHENSIVE METABOLIC [id number] 00:00:00 Test Item Value Reference Range Interpretation Comments GLUCOSE (test code = 2217) 93 MG/DL BUN (test code = 2208) 10 MG/DL CREATININE (test code = 2214) 0.81 MG/DL eGFR AMER. (test code 103 ML/MIN/1.73 = 62849) eGFR NON- AMER. (test 89 ML/MIN/1.73 code = 69197) CALC BUN/CREAT (test code = 12 RATIO [...] CALC GLOBULIN (test code = 2.9 G/DL 2239) CALC A/G RATIO (test code = 1.7 RATIO 223) BILIRUBIN, TOTAL (test code = <0.2 MG/DL 2206) ALKALINE PHOSPHATASE (test 104 U/L code = 2204) AST (test code = 2218) 24 U/L ALT (test code = 2219) 22 U/L COMPREHENSIVE METABOLIC [id number] 00:00:00 Test Item Value Reference Range Interpretation Comments GLUCOSE (test code = 2217) 93 MG/DL BUN (test code = 2208) 10 MG/DL CREATININE (test code = 2214) 0.81 MG/DL eGFR AMER. (test code 103 ML/MIN/1.73 = 28986) eGFR NON- AMER. (test 89 ML/MIN/1.73 code = 11997) CALC BUN/CREAT (test code = 12 RATIO 2235) SODIUM (test code = 2231) 140 MEQ/L POTASSIUM (test code = 2228) 4.5 MEQ/L CHLORIDE (test code = 2215) 101 MEQ/L CARBON DIOXIDE (test code = 27 MEQ/L 220) CALCIUM (test code = 2209) 10.4 MG/DL [...] code = 2219) 22 U/L CBC W/AUTO [id number] 00:00:00 Test Item Value Reference Range Interpretation [...] NUCLEATED RBCS (test code = 0.00 K/UL 86289) CBC W/AUTO [id number] 00:00:00 Test Item Value Reference Range Interpretation [...] NUCLEATED RBCS (test code = 0.00 K/UL 90547) CBC W/AUTO [id number] 00:00:00 Test Item Value Reference Range Interpretation [...] NUCLEATED RBCS (test code = 0.00 K/UL 23881) LIPID [id number] 00:00:00 Test Item Value Reference Range Interpretation Comments CHOLESTEROL (test code = 2210) 328 MG/DL TRIGLYCERIDES (test code = 2232) 614 MG/DL HDL CHOLESTEROL (test code = 42 MG/DL 2220) CALC LDL CHOL (test code = 2237) (NOTE) MG/DL RISK RATIO LDL/HDL (test code = (NOTE) RATIO 2238) LIPID [id number] 00:00:00 Test Item Value Reference Range Interpretation Comments CHOLESTEROL (test code = 2210) 328 MG/DL TRIGLYCERIDES (test code = 2232) 614 MG/DL HDL CHOLESTEROL (test code = 42 MG/DL 2220) CALC LDL CHOL (test code = 2237) (NOTE) MG/DL RISK RATIO LDL/HDL (test code = (NOTE) RATIO 2238) [id number] 00:00:00 Test Item Value Reference Range Interpretation Comments TSH, THIRD GENERATION (test code 4.310 UIU/ML = 2821) [id number] 00:00:00 Test Item Value Reference Range Interpretation Comments TSH, THIRD GENERATION (test code 4.310 UIU/ML = 2821) [id number] 00:00:00 Test Item Value Reference Range Interpretation Comments TSH, THIRD GENERATION (test code 4.310 UIU/ML = 2821) HEMOGLOBIN [id number] 00:00:00 Test Item Value Reference Range Interpretation Comments HEMOGLOBIN A1c (test code = 51626) 5.4 % HEMOGLOBIN [id number] 00:00:00 Test Item Value Reference Range Interpretation Comments HEMOGLOBIN A1c (test code = 63454) 5.4 % HEMOGLOBIN [id number] 00:00:00 Test Item Value Reference Range Interpretation Comments HEMOGLOBIN A1c (test code = 23265) 5.4 % [id number] 00:00:00 Test Item Value Reference Range Interpretation Comments LITHIUM (test code = 2039) 0.63 MEQ/L [id number] 00:00:00 Test Item Value Reference Range Interpretation Comments LITHIUM (test code = 2039) 0.63 MEQ/L [id number] 00:00:00 Test Item Value Reference Range Interpretation Comments LITHIUM (test code = 2039) 0.63 MEQ/L COMPREHENSIVE METABOLIC [id number] 00:00:00 Test Item Value Reference Range Interpretation Comments GLUCOSE (test code = 2217) 93 MG/DL BUN (test code = 2208) 10 MG/DL CREATININE (test code = 2214) 0.81 MG/DL eGFR AMER. (test code 103 ML/MIN/1.73 = 92312) eGFR NON- AMER. (test 89 ML/MIN/1.73 code = 72374) CALC BUN/CREAT (test code = 12 RATIO 2235) SODIUM (test code = 2231) 140 MEQ/L POTASSIUM (test code = 2228) 4.5 MEQ/L CHLORIDE (test code = 2215) 101 MEQ/L CARBON DIOXIDE (test code = 27 MEQ/L 220) CALCIUM (test code = 2209) 10.4 MG/DL PROTEIN, TOTAL (test code = 7.9 G/DL 2229) ALBUMIN (test code = 2201) 5.0 G/DL CALC GLOBULIN (test code = 2.9 G/DL 2240) CALC A/G RATIO (test code = 1.7 RATIO 2234) BILIRUBIN, TOTAL (test code = <0.2 MG/DL 2207) ALKALINE PHOSPHATASE (test 104 U/L code = 2204) AST (test code = 2218) 24 U/L ALT (test code = 2219) 22 U/L CBC W/AUTO [id number] 00:00:00 Test Item Value Reference Range Interpretation [...] NUCLEATED RBCS (test code = 0.00 K/UL 52601) CBC W/AUTO [id number] 00:00:00 Test Item Value Reference Range Interpretation [...] NUCLEATED RBCS (test code = 0.00 K/UL 12564) LIPID [id number] 00:00:00 Test Item Value Reference Range Interpretation Comments CHOLESTEROL (test code = 2210) 328 MG/DL TRIGLYCERIDES (test code = 2232) 614 MG/DL HDL CHOLESTEROL (test code = 42 MG/DL 2220) CALC LDL CHOL (test code = 2237) (NOTE) MG/DL RISK RATIO LDL/HDL (test code = (NOTE) RATIO 2238) [id number] 00:00:00 Test Item Value Reference Range Interpretation Comments TSH, THIRD GENERATION (test code 4.310 UIU/ML = 2821) [id number] 00:00:00 Test Item Value Reference Range Interpretation Comments TSH, THIRD GENERATION (test code 4.310 UIU/ML = 2821) HEMOGLOBIN [id number] 00:00:00 Test Item Value Reference Range Interpretation Comments HEMOGLOBIN A1c (test code = 12461) 5.4 % HEMOGLOBIN [id number] 00:00:00 Test Item Value Reference Range Interpretation Comments HEMOGLOBIN A1c (test code = 85440) 5.4 % [id number] 00:00:00 Test Item Value Reference Range Interpretation Comments LITHIUM (test code = 2038) 0.63 MEQ/L [id number] 00:00:00 Test Item Value Reference Range Interpretation Comments LITHIUM (test code = 203) 0.63 MEQ/L COMPREHENSIVE METABOLIC [id number] 00:00:00 Test Item Value Reference Range Interpretation Comments GLUCOSE (test code = 2217) 93 MG/DL BUN (test code = 2208) 10 MG/DL CREATININE (test code = 2214) 0.81 MG/DL eGFR AMER. (test code 103 ML/MIN/1.73 = 28717) eGFR NON- AMER. (test 89 ML/MIN/1.73 code = 21799) CALC BUN/CREAT (test code = 12 RATIO [...] CALC GLOBULIN (test code = 2.9 G/DL 0) CALC A/G RATIO (test code = 1.7 RATIO 2234) BILIRUBIN, TOTAL (test code = <0.2 MG/DL 2206) ALKALINE PHOSPHATASE (test 104 U/L code = 2204) AST (test code = 2218) 24 U/L ALT (test code = 2219) 22 U/L COMPREHENSIVE METABOLIC [id number] 00:00:00 Test Item Value Reference Range Interpretation Comments GLUCOSE (test code = 2217) 93 MG/DL BUN (test code = 2208) 10 MG/DL CREATININE (test code = 2214) 0.81 MG/DL eGFR AMER. (test code 103 ML/MIN/1.73 = 04936) eGFR NON- AMER. (test 89 ML/MIN/1.73 code = 53480) CALC BUN/CREAT (test code = 12 RATIO [...] A/G RATIO (test code = 1.7 RATIO 2233) BILIRUBIN, TOTAL (test code = <0.2 MG/DL 2206) ALKALINE PHOSPHATASE (test 104 U/L code = 2204) AST (test code = 2218) 24 U/L ALT (test code = 2219) 22 U/L CBC W/AUTO [id number] 00:00:00 Test Item Value Reference Range Interpretation [...] NUCLEATED RBCS (test code = 0.00 K/UL 15129) CBC W/AUTO [id number] 00:00:00 Test Item Value Reference Range Interpretation [...] NUCLEATED RBCS (test code = 0.00 K/UL 90867) CBC W/AUTO [id number] 00:00:00 Test Item Value Reference Range Interpretation [...] NUCLEATED RBCS (test code = 0.00 K/UL 41732) LIPID [id number] 00:00:00 Test Item Value Reference Range Interpretation Comments CHOLESTEROL (test code = 2210) 328 MG/DL TRIGLYCERIDES (test code = 2232) 614 MG/DL HDL CHOLESTEROL (test code = 42 MG/DL 2220) CALC LDL CHOL (test code = 2237) (NOTE) MG/DL RISK RATIO LDL/HDL (test code = (NOTE) RATIO 2238) LIPID [id number] 00:00:00 Test Item Value Reference Range Interpretation Comments CHOLESTEROL (test code = 2210) 328 MG/DL TRIGLYCERIDES (test code = 2232) 614 MG/DL HDL CHOLESTEROL (test code = 42 MG/DL 2220) CALC LDL CHOL (test code = 2237) (NOTE) MG/DL RISK RATIO LDL/HDL (test code = (NOTE) RATIO 2238) [id number] 00:00:00 Test Item Value Reference Range Interpretation Comments TSH, THIRD GENERATION (test code 4.310 UIU/ML = 2821) [id number] 00:00:00 Test Item Value Reference Range Interpretation Comments TSH, THIRD GENERATION (test code 4.310 UIU/ML = 2821) [id number] 00:00:00 Test Item Value Reference Range Interpretation Comments TSH, THIRD GENERATION (test code 4.310 UIU/ML = 2821) HEMOGLOBIN [id number] 00:00:00 Test Item Value Reference Range Interpretation Comments HEMOGLOBIN A1c (test code = 42707) 5.4 % HEMOGLOBIN [id number] 00:00:00 Test Item Value Reference Range Interpretation Comments HEMOGLOBIN A1c (test code = 63801) 5.4 % HEMOGLOBIN [id number] 00:00:00 Test Item Value Reference Range Interpretation Comments HEMOGLOBIN A1c (test code = 98126) 5.4 % [id number] 00:00:00 Test Item Value Reference Range Interpretation Comments LITHIUM (test code = 2039) 0.63 MEQ/L [id number] 00:00:00 Test Item Value Reference Range Interpretation Comments LITHIUM (test code = 203) 0.63 MEQ/L [id number] 00:00:00 Test Item Value Reference Range Interpretation Comments LITHIUM (test code = 203) 0.63 MEQ/L COMPREHENSIVE METABOLIC [id number] 00:00:00 Test Item Value Reference Range Interpretation Comments GLUCOSE (test code = 2217) 93 MG/DL BUN (test code = 2208) 10 MG/DL CREATININE (test code = 2214) 0.81 MG/DL eGFR AMER. (test code 103 ML/MIN/1.73 = 53410) eGFR NON- AMER. (test 89 ML/MIN/1.73 code = 11793) CALC BUN/CREAT (test code = 12 RATIO 5) SODIUM (test code = 2231) 140 MEQ/L POTASSIUM (test code = 2228) 4.5 MEQ/L CHLORIDE (test code = 2215) 101 MEQ/L CARBON DIOXIDE (test code = 27 MEQ/L 2205) CALCIUM (test code = 2209) 10.4 MG/DL PROTEIN, TOTAL (test code = 7.9 G/DL 2228) ALBUMIN (test code = 2201) 5.0 G/DL CALC GLOBULIN (test code = 2.9 G/DL 0) CALC A/G RATIO (test code = 1.7 RATIO 2233) BILIRUBIN, TOTAL (test code = <0.2 MG/DL 2206) ALKALINE PHOSPHATASE (test 104 U/L code = 2204) AST (test code = 2218) 24 U/L ALT (test code = 2219) 22 U/L COMPREHENSIVE METABOLIC [id number] 00:00:00 Test Item Value Reference Range Interpretation Comments GLUCOSE (test code = 2217) 93 MG/DL BUN (test code = 2208) 10 MG/DL CREATININE (test code = 2214) 0.81 MG/DL eGFR AMER. (test code 103 ML/MIN/1.73 = 98528) eGFR NON- AMER. (test 89 ML/MIN/1.73 code = 52197) CALC BUN/CREAT (test code = 12 RATIO 2235) SODIUM (test code = 2231) 140 MEQ/L POTASSIUM (test code = 2228) 4.5 MEQ/L CHLORIDE (test code = 2215) 101 MEQ/L CARBON DIOXIDE (test code = 27 MEQ/L 220) CALCIUM (test code = 2209) 10.4 MG/DL PROTEIN, TOTAL (test code = 7.9 G/DL 2228) ALBUMIN (test code = 2201) 5.0 G/DL CALC GLOBULIN (test code = 2.9 G/DL 2240) CALC A/G RATIO (test code = 1.7 RATIO 4) BILIRUBIN, TOTAL (test code = <0.2 MG/DL 2206) ALKALINE PHOSPHATASE (test 104 U/L code = 2204) AST (test code = 2218) 24 U/L ALT (test code = 2219) 22 U/L CBC W/AUTO [id number] 00:00:00 Test Item Value Reference Range Interpretation [...] NUCLEATED RBCS (test code = 0.00 K/UL 17093) CBC W/AUTO [id number] 00:00:00 Test Item Value Reference Range Interpretation [...] NUCLEATED RBCS (test code = 0.00 K/UL 80336) CBC W/AUTO [id number] 00:00:00 Test Item Value Reference Range Interpretation [...] NUCLEATED RBCS (test code = 0.00 K/UL 67005) LIPID [id number] 00:00:00 Test Item Value Reference Range Interpretation Comments CHOLESTEROL (test code = 2210) 328 MG/DL TRIGLYCERIDES (test code = 2232) 614 MG/DL HDL CHOLESTEROL (test code = 42 MG/DL 2220) CALC LDL CHOL (test code = 2237) (NOTE) MG/DL RISK RATIO LDL/HDL (test code = (NOTE) RATIO 2238) LIPID [id number] 00:00:00 Test Item Value Reference Range Interpretation Comments CHOLESTEROL (test code = 2210) 328 MG/DL TRIGLYCERIDES (test code = 2232) 614 MG/DL HDL CHOLESTEROL (test code = 42 MG/DL 2220) CALC LDL CHOL (test code = 2237) (NOTE) MG/DL RISK RATIO LDL/HDL (test code = (NOTE) RATIO 2238) [id number] 00:00:00 Test Item Value Reference Range Interpretation Comments TSH, THIRD GENERATION (test code 4.310 UIU/ML = 2821) [id number] 00:00:00 Test Item Value Reference Range Interpretation Comments TSH, THIRD GENERATION (test code 4.310 UIU/ML = 2821) [id number] 00:00:00 Test Item Value Reference Range Interpretation Comments TSH, THIRD GENERATION (test code 4.310 UIU/ML = 2821) HEMOGLOBIN [id number] 00:00:00 Test Item Value Reference Range Interpretation Comments HEMOGLOBIN A1c (test code = 64357) 5.4 % HEMOGLOBIN [id number] 00:00:00 Test Item Value Reference Range Interpretation Comments HEMOGLOBIN A1c (test code = 87229) 5.4 % HEMOGLOBIN [id number] 00:00:00 Test Item Value Reference Range Interpretation Comments HEMOGLOBIN A1c (test code = 96805) 5.4 % [id number] 00:00:00 Test Item Value Reference Range Interpretation Comments LITHIUM (test code = 2039) 0.63 MEQ/L [id number] 00:00:00 Test Item Value Reference Range Interpretation Comments LITHIUM (test code = 2039) 0.63 MEQ/L [id number] 00:00:00 Test Item Value Reference Range Interpretation Comments LITHIUM (test code = 2039) 0.63 MEQ/L COMPREHENSIVE METABOLIC [id number] 00:00:00 Test Item Value Reference Range Interpretation Comments GLUCOSE (test code = 2217) 93 MG/DL BUN (test code = 2208) 10 MG/DL CREATININE (test code = 2214) 0.81 MG/DL eGFR AMER. (test code 103 ML/MIN/1.73 = 29522) eGFR NON- AMER. (test 89 ML/MIN/1.73 code = 00310) CALC BUN/CREAT (test code = 12 RATIO [...] CALC GLOBULIN (test code = 2.9 G/DL 2239) CALC A/G RATIO (test code = 1.7 RATIO 2234) BILIRUBIN, TOTAL (test code = <0.2 MG/DL 2207) ALKALINE PHOSPHATASE (test 104 U/L code = 2204) AST (test code = 2218) 24 U/L ALT (test code = 2219) 22 U/L COMPREHENSIVE METABOLIC [id number] 00:00:00 Test Item Value Reference Range Interpretation Comments GLUCOSE (test code = 2217) 93 MG/DL BUN (test code = 2208) 10 MG/DL CREATININE (test code = 2214) 0.81 MG/DL eGFR AMER. (test code 103 ML/MIN/1.73 = 82788) eGFR NON- AMER. (test 89 ML/MIN/1.73 code = 87804) CALC BUN/CREAT (test code = 12 RATIO [...] code = 2219) 22 U/L CBC W/AUTO [id number] 00:00:00 Test Item Value Reference Range Interpretation [...] NUCLEATED RBCS (test code = 0.00 K/UL 65871) CBC W/AUTO [id number] 00:00:00 Test Item Value Reference Range Interpretation [...] NUCLEATED RBCS (test code = 0.00 K/UL 74844) CBC W/AUTO [id number] 00:00:00 Test Item Value Reference Range Interpretation [...] NUCLEATED RBCS (test code = 0.00 K/UL 84888) LIPID [id number] 00:00:00 Test Item Value Reference Range Interpretation Comments CHOLESTEROL (test code = 2210) 328 MG/DL TRIGLYCERIDES (test code = 2232) 614 MG/DL HDL CHOLESTEROL (test code = 42 MG/DL 2220) CALC LDL CHOL (test code = 2237) (NOTE) MG/DL RISK RATIO LDL/HDL (test code = (NOTE) RATIO 2238) LIPID [id number] 00:00:00 Test Item Value Reference Range Interpretation Comments CHOLESTEROL (test code = 2210) 328 MG/DL TRIGLYCERIDES (test code = 2232) 614 MG/DL HDL CHOLESTEROL (test code = 42 MG/DL 2220) CALC LDL CHOL (test code = 2237) (NOTE) MG/DL RISK RATIO LDL/HDL (test code = (NOTE) RATIO 2238) [id number] 00:00:00 Test Item Value Reference Range Interpretation Comments TSH, THIRD GENERATION (test code 4.310 UIU/ML = 2821) [id number] 00:00:00 Test Item Value Reference Range Interpretation Comments TSH, THIRD GENERATION (test code 4.310 UIU/ML = 2821) [id number] 00:00:00 Test Item Value Reference Range Interpretation Comments TSH, THIRD GENERATION (test code 4.310 UIU/ML = 2821) HEMOGLOBIN [id number] 00:00:00 Test Item Value Reference Range Interpretation Comments HEMOGLOBIN A1c (test code = 16025) 5.4 % HEMOGLOBIN [id number] 00:00:00 Test Item Value Reference Range Interpretation Comments HEMOGLOBIN A1c (test code = 90817) 5.4 % HEMOGLOBIN [id number] 00:00:00 Test Item Value Reference Range Interpretation Comments HEMOGLOBIN A1c (test code = 34686) 5.4 % [id number] 00:00:00 Test Item Value Reference Range Interpretation Comments LITHIUM (test code = 2039) 0.63 MEQ/L [id number] 00:00:00 Test Item Value Reference Range Interpretation Comments LITHIUM (test code = 2039) 0.63 MEQ/L [id number] 00:00:00 Test Item Value Reference Range Interpretation Comments LITHIUM (test code = 2039) 0.63 MEQ/L COMPREHENSIVE METABOLIC [id number] 00:00:00 Test Item Value Reference Range Interpretation Comments GLUCOSE (test code = 2217) 93 MG/DL BUN (test code = 2208) 10 MG/DL CREATININE (test code = 2214) 0.81 MG/DL eGFR AMER. (test code 103 ML/MIN/1.73 = 34096) eGFR NON- AMER. (test 89 ML/MIN/1.73 code = 80040) CALC BUN/CREAT (test code = 12 RATIO 2235) SODIUM (test code = 2231) 140 MEQ/L POTASSIUM (test code = 2228) 4.5 MEQ/L CHLORIDE (test code = 2215) 101 MEQ/L CARBON DIOXIDE (test code = 27 MEQ/L 220) CALCIUM (test code = 2209) 10.4 MG/DL [...] code = 2219) 22 U/L COMPREHENSIVE METABOLIC [id number] 00:00:00 Test Item Value Reference Range Interpretation Comments GLUCOSE (test code = 2217) 93 MG/DL BUN (test code = 2208) 10 MG/DL CREATININE (test code = 2214) 0.81 MG/DL eGFR AMER. (test code 103 ML/MIN/1.73 = 40285) eGFR NON- AMER. (test 89 ML/MIN/1.73 code = 41939) CALC BUN/CREAT (test code = 12 RATIO [...] code = 2219) 22 U/L CBC W/AUTO [id number] 00:00:00 Test Item Value Reference Range Interpretation [...] NUCLEATED RBCS (test code = 0.00 K/UL 56412) CBC W/AUTO [id number] 00:00:00 Test Item Value Reference Range Interpretation [...] NUCLEATED RBCS (test code = 0.00 K/UL 35575) CBC W/AUTO [id number] 00:00:00 Test Item Value Reference Range Interpretation [...] NUCLEATED RBCS (test code = 0.00 K/UL 67653) LIPID [id number] 00:00:00 Test Item Value Reference Range Interpretation Comments CHOLESTEROL (test code = 2210) 328 MG/DL TRIGLYCERIDES (test code = 2232) 614 MG/DL HDL CHOLESTEROL (test code = 42 MG/DL 2220) CALC LDL CHOL (test code = 2237) (NOTE) MG/DL RISK RATIO LDL/HDL (test code = (NOTE) RATIO 2238) LIPID [id number] 00:00:00 Test Item Value Reference Range Interpretation Comments CHOLESTEROL (test code = 2210) 328 MG/DL TRIGLYCERIDES (test code = 2232) 614 MG/DL HDL CHOLESTEROL (test code = 42 MG/DL 2220) CALC LDL CHOL (test code = 2237) (NOTE) MG/DL RISK RATIO LDL/HDL (test code = (NOTE) RATIO 2238) [id number] 00:00:00 Test Item Value Reference Range Interpretation Comments TSH, THIRD GENERATION (test code 4.310 UIU/ML = 2821) [id number] 00:00:00 Test Item Value Reference Range Interpretation Comments TSH, THIRD GENERATION (test code 4.310 UIU/ML = 2821) [id number] 00:00:00 Test Item Value Reference Range Interpretation Comments TSH, THIRD GENERATION (test code 4.310 UIU/ML = 2821) HEMOGLOBIN [id number] 00:00:00 Test Item Value Reference Range Interpretation Comments HEMOGLOBIN A1c (test code = 13209) 5.4 % HEMOGLOBIN [id number] 00:00:00 Test Item Value Reference Range Interpretation Comments HEMOGLOBIN A1c (test code = 71388) 5.4 % HEMOGLOBIN [id number] 00:00:00 Test Item Value Reference Range Interpretation Comments HEMOGLOBIN A1c (test code = 25577) 5.4 % [id number] 00:00:00 Test Item Value Reference Range Interpretation Comments LITHIUM (test code = 2039) 0.63 MEQ/L [id number] 00:00:00 Test Item Value Reference Range Interpretation Comments LITHIUM (test code = 2039) 0.63 MEQ/L [id number] 00:00:00 Test Item Value Reference Range Interpretation Comments LITHIUM (test code = 2039) 0.63 MEQ/L COMPREHENSIVE METABOLIC [id number] 00:00:00 Test Item Value Reference Range Interpretation Comments GLUCOSE (test code = 2217) 93 MG/DL BUN (test code = 2208) 10 MG/DL CREATININE (test code = 2214) 0.81 MG/DL eGFR AMER. (test code 103 ML/MIN/1.73 = 93404) eGFR NON- AMER. (test 89 ML/MIN/1.73 code = 26225) CALC BUN/CREAT (test code = 12 RATIO 2235) SODIUM (test code = 2231) 140 MEQ/L POTASSIUM (test code = 2228) 4.5 MEQ/L CHLORIDE (test code = 2215) 101 MEQ/L CARBON DIOXIDE (test code = 27 MEQ/L 220) CALCIUM (test code = 2209) 10.4 MG/DL [...] code = 2219) 22 U/L COMPREHENSIVE METABOLIC [id number] 00:00:00 Test Item Value Reference Range Interpretation Comments GLUCOSE (test code = 2217) 93 MG/DL BUN (test code = 2208) 10 MG/DL CREATININE (test code = 2214) 0.81 MG/DL eGFR AMER. (test code 103 ML/MIN/1.73 = 74372) eGFR NON- AMER. (test 89 ML/MIN/1.73 code = 72128) CALC BUN/CREAT (test code = 12 RATIO 2235) SODIUM (test code = 2231) 140 MEQ/L POTASSIUM (test code = 2228) 4.5 MEQ/L CHLORIDE (test code = 2215) 101 MEQ/L CARBON DIOXIDE (test code = 27 MEQ/L 2206) CALCIUM (test code = 2209) 10.4 MG/DL [...] code = 2219) 22 U/L CBC W/AUTO [id number] 00:00:00 Test Item Value Reference Range Interpretation [...] NUCLEATED RBCS (test code = 0.00 K/UL 88673) CBC W/AUTO [id number] 00:00:00 Test Item Value Reference Range Interpretation [...] NUCLEATED RBCS (test code = 0.00 K/UL 15602) CBC W/AUTO [id number] 00:00:00 Test Item Value Reference Range Interpretation [...] NUCLEATED RBCS (test code = 0.00 K/UL 27334) LIPID [id number] 00:00:00 Test Item Value Reference Range Interpretation Comments CHOLESTEROL (test code = 2210) 328 MG/DL TRIGLYCERIDES (test code = 2232) 614 MG/DL HDL CHOLESTEROL (test code = 42 MG/DL 2220) CALC LDL CHOL (test code = 2237) (NOTE) MG/DL RISK RATIO LDL/HDL (test code = (NOTE) RATIO 2238) LIPID [id number] 00:00:00 Test Item Value Reference Range Interpretation Comments CHOLESTEROL (test code = 2210) 328 MG/DL TRIGLYCERIDES (test code = 2232) 614 MG/DL HDL CHOLESTEROL (test code = 42 MG/DL 2220) CALC LDL CHOL (test code = 2237) (NOTE) MG/DL RISK RATIO LDL/HDL (test code = (NOTE) RATIO 2238) [id number] 00:00:00 Test Item Value Reference Range Interpretation Comments TSH, THIRD GENERATION (test code 4.310 UIU/ML = 2821) [id number] 00:00:00 Test Item Value Reference Range Interpretation Comments TSH, THIRD GENERATION (test code 4.310 UIU/ML = 2821) [id number] 00:00:00 Test Item Value Reference Range Interpretation Comments TSH, THIRD GENERATION (test code 4.310 UIU/ML = 2821) HEMOGLOBIN [id number] 00:00:00 Test Item Value Reference Range Interpretation Comments HEMOGLOBIN A1c (test code = 14356) 5.4 % HEMOGLOBIN [id number] 00:00:00 Test Item Value Reference Range Interpretation Comments HEMOGLOBIN A1c (test code = 39790) 5.4 % HEMOGLOBIN [id number] 00:00:00 Test Item Value Reference Range Interpretation Comments HEMOGLOBIN A1c (test code = 55900) 5.4 % [id number] 00:00:00 Test Item Value Reference Range Interpretation Comments LITHIUM (test code = 2039) 0.63 MEQ/L [id number] 00:00:00 Test Item Value Reference Range Interpretation Comments LITHIUM (test code = 2039) 0.63 MEQ/L [id number] 00:00:00 Test Item Value Reference Range Interpretation Comments LITHIUM (test code = 2039) 0.63 MEQ/L COMPREHENSIVE METABOLIC [id number] 00:00:00 Test Item Value Reference Range Interpretation Comments GLUCOSE (test code = 2217) 93 MG/DL BUN (test code = 2208) 10 MG/DL CREATININE (test code = 2214) 0.81 MG/DL eGFR AMER. (test code 103 ML/MIN/1.73 = 50904) eGFR NON- AMER. (test 89 ML/MIN/1.73 code = 85390) CALC BUN/CREAT (test code = 12 RATIO 2235) SODIUM (test code = 2231) 140 MEQ/L POTASSIUM (test code = 2228) 4.5 MEQ/L CHLORIDE (test code = 2215) 101 MEQ/L CARBON DIOXIDE (test code = 27 MEQ/L 220) CALCIUM (test code = 2209) 10.4 MG/DL PROTEIN, TOTAL (test code = 7.9 G/DL 2228) ALBUMIN (test code = 2201) 5.0 G/DL CALC GLOBULIN (test code = 2.9 G/DL 2240) CALC A/G RATIO (test code = 1.7 RATIO 4) BILIRUBIN, TOTAL (test code = <0.2 MG/DL 2206) ALKALINE PHOSPHATASE (test 104 U/L code = 2204) AST (test code = 2218) 24 U/L ALT (test code = 2219) 22 U/L COMPREHENSIVE METABOLIC [id number] 00:00:00 Test Item Value Reference Range Interpretation Comments GLUCOSE (test code = 2217) 93 MG/DL BUN (test code = 2208) 10 MG/DL CREATININE (test code = 2214) 0.81 MG/DL eGFR AMER. (test code 103 ML/MIN/1.73 = 90525) eGFR NON- AMER. (test 89 ML/MIN/1.73 code = 28710) CALC BUN/CREAT (test code = 12 RATIO 2235) SODIUM (test code = 2231) 140 MEQ/L POTASSIUM (test code = 2228) 4.5 MEQ/L CHLORIDE (test code = 2215) 101 MEQ/L CARBON DIOXIDE (test code = 27 MEQ/L 2206) CALCIUM (test code = 2209) 10.4 MG/DL PROTEIN, TOTAL (test code = 7.9 G/DL 2229) ALBUMIN (test code = 2201) 5.0 G/DL CALC GLOBULIN (test code = 2.9 G/DL 2240) CALC A/G RATIO (test code = 1.7 RATIO 2234) BILIRUBIN, TOTAL (test code = <0.2 MG/DL 2207) ALKALINE PHOSPHATASE (test 104 U/L code = 2204) AST (test code = 2218) 24 U/L ALT (test code = 2219) 22 U/L CBC W/AUTO [id number] 00:00:00 Test Item Value Reference Range Interpretation [...] NUCLEATED RBCS (test code = 0.00 K/UL 47867) CBC W/AUTO [id number] 00:00:00 Test Item Value Reference Range Interpretation [...] NUCLEATED RBCS (test code = 0.00 K/UL 39101) CBC W/AUTO [id number] 00:00:00 Test Item Value Reference Range Interpretation [...] NUCLEATED RBCS (test code = 0.00 K/UL 79548) LIPID [id number] 00:00:00 Test Item Value Reference Range Interpretation Comments CHOLESTEROL (test code = 2210) 328 MG/DL TRIGLYCERIDES (test code = 2232) 614 MG/DL HDL CHOLESTEROL (test code = 42 MG/DL 2220) CALC LDL CHOL (test code = 2237) (NOTE) MG/DL RISK RATIO LDL/HDL (test code = (NOTE) RATIO 2238) LIPID [id number] 00:00:00 Test Item Value Reference Range Interpretation Comments CHOLESTEROL (test code = 2210) 328 MG/DL TRIGLYCERIDES (test code = 2232) 614 MG/DL HDL CHOLESTEROL (test code = 42 MG/DL 2220) CALC LDL CHOL (test code = 2237) (NOTE) MG/DL RISK RATIO LDL/HDL (test code = (NOTE) RATIO 2238) [id number] 00:00:00 Test Item Value Reference Range Interpretation Comments TSH, THIRD GENERATION (test code 4.310 UIU/ML = 2821) [id number] 00:00:00 Test Item Value Reference Range Interpretation Comments TSH, THIRD GENERATION (test code 4.310 UIU/ML = 2821) [id number] 00:00:00 Test Item Value Reference Range Interpretation Comments TSH, THIRD GENERATION (test code 4.310 UIU/ML = 2821) HEMOGLOBIN [id number] 00:00:00 Test Item Value Reference Range Interpretation Comments HEMOGLOBIN A1c (test code = 10954) 5.4 % HEMOGLOBIN [id number] 00:00:00 Test Item Value Reference Range Interpretation Comments HEMOGLOBIN A1c (test code = 07014) 5.4 % HEMOGLOBIN [id number] 00:00:00 Test Item Value Reference Range Interpretation Comments HEMOGLOBIN A1c (test code = 72720) 5.4 % [id number] 00:00:00 Test Item Value Reference Range Interpretation Comments LITHIUM (test code = 203) 0.63 MEQ/L [id number] 00:00:00 Test Item Value Reference Range Interpretation Comments LITHIUM (test code = 2038) 0.63 MEQ/L [id number] 00:00:00 Test Item Value Reference Range Interpretation Comments LITHIUM (test code = 203) 0.63 MEQ/L"
[2022-08-09] MEDS ORDERED: FENTANYL CITR 100 MCG/2 ML ONE (01:46)
--- NOTE | 2022-08-09 02:48 | EDPHYS ---
Physician Documentation [facility] Name: Rody Doan Age: 46 yrs Sex: Female : 1975 Arrival Date: 08/08/2022 Time: 23:10 Bed 3 Private MD: ED Physician Nba Marie HPI: 08/09 00:00 This 46 yrs old Female presents to ER via Wheelchair with complaints of Fall cp Injury. 00:00 The patient or guardian reports pain. cp 00:00 sustained from previous injury. The complaints affect the right hip. Onset: The cp symptoms/episode began/occurred chronically. Associated signs and symptoms: Pertinent negatives: abdominal pain, chest pain, dysuria, fever, weakness. Severity of symptoms: in the emergency department the symptoms are unchanged, despite home interventions. 00:00 Patient reports recent ortho evaluation with DR Quinn and plan for hip replacement cp surgery. Patient does not have scheduled surgery date but is prescribed pain medications. 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 - Social history:: Smoking status: Patient reports the use of cigarette tobacco products, smokes one-half pack cigarettes per day. ROS: 08/09 00:05 Constitutional: Negative for body aches, chills, fever, poor PO intake. cp 00:05 Eyes: Negative for injury, pain, redness, and discharge. cp 00:05 Abdomen/GI: Negative for abdominal pain, vomiting, diarrhea, constipation. 00:05 MS/extremity: Positive for decreased range of motion, pain, tenderness, of the right hip. 00:05 Neck: Negative for pain with movement, pain at rest, stiffness. cp 00:05 Cardiovascular: Negative for chest pain. 00:05 Respiratory: Negative for cough, shortness of breath, wheezing. 00:05 Back: Negative for pain at rest, pain with movement. 00:05 Neuro: Negative for altered mental status, dizziness, headache, weakness. 00:05 Skin: Negative for cellulitis, rash. cp 00:05 All other systems are negative. cp Exam: 00:10 Constitutional: The patient appears in no acute distress, alert, awake, non-toxic, well cp developed, well nourished, uncomfortable. 00:10 Head/Face: Normocephalic, atraumatic. cp 00:10 Eyes: Periorbital structures: appear normal, Conjunctiva: normal, no exudate, no injection, Sclera: no appreciated abnormality, Lids and lashes: appear normal, bilaterally. 00:10 ENT: External ear(s): are unremarkable, Nose: is normal, Mouth: Lips: moist, Oral mucosa: moist, Posterior pharynx: is normal, airway is patent, no erythema, no exudate. 00:10 Chest/axilla: Inspection: normal. 00:10 Cardiovascular: Rate: normal, Rhythm: regular. 00:10 Respiratory: the patient does not display signs of respiratory distress, Respirations: normal, no use of accessory muscles, no retractions, labored breathing, is not present, Breath sounds: are clear throughout, no decreased breath sounds, no stridor, no wheezing. 00:10 Abdomen/GI: Inspection: abdomen appears normal, Palpation: abdomen is soft and non-tender, in all quadrants. 00:10 Back: pain, is absent, ROM is normal. 00:10 Musculoskeletal/extremity: Extremities: grossly normal except: noted in the right hip: pain, tenderness, ROM: limited passive range of motion due to pain, in the right hip, Pulses: noted to be 2+ in the right dorsalis pedis artery. 00:10 Neuro: Orientation: to person, place \T\ time. Mentation: is normal. Vital Signs: 08/08 23:48 Weight 68.95 kg (R); Height 5 ft. 4 in. (R); Pain 10/10; aa9 23:59 BP 101 / 66; Resp 18; Temp 98.2; Pulse Ox 99% on R/A; aa9 08/09 00:00 Pulse 80; aa9 01:47 BP 114 / 87; Pulse 73; Resp 16 S; Pulse Ox 98% on R/A; lg3 08/08 23:48 Body Mass Index 26.09 (68.95 kg, 162.56 cm) aa9 08/08 23:48 Pain Scale: Adult aa9 MDM: 08/08 23:47 Patient medically screened. cp 08/09 02:46 Data reviewed: vital signs, nurses notes, radiologic studies, plain films. cp 02:46 Differential diagnosis: hip fracture, femur fracture, dislocation. Consideration of cp Admission/Observation Escalation of care including admission/observation considered. I considered the following discharge prescriptions or medication management in the emergency department Medications were administered in the Emergency Department. See MAR. Care significantly affected by the following chronic conditions: fracture of right hip. Counseling: I had a detailed discussion with the patient and/or guardian regarding: the historical points, exam findings, and any diagnostic results supporting the discharge/admit diagnosis, radiology results, the need for outpatient follow up, for definitive care, a orthopedic surgeon, to return to the emergency department if symptoms worsen or persist or if there are any questions or concerns that arise at home. Response to treatment: the patient's symptoms have markedly improved after treatment, Pain improved, patient observed sleeping in exam room, and as a result, I will discharge patient. 08/08 23:53 Order name: XRAY Pelvis cp 08/09 01:23 Order name: XRAY Femur RIGHT cp 08/08 23:53 Order name: IV; Complete Time: 00:33 cp Administered Medications: 01:44 Drug: fentaNYL (PF) IVP 25 mcg Route: IVP; Site: left antecubital; aa9 02:49 Follow up: Response: No adverse reaction aa9 Disposition: 05:17 Co-signature as Attending Physician, Nba Marie MD I agree with the assessment and kdr plan of care. 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
--- NOTE | 2022-08-09 02:48 | ER ---
Nurse's Notes [facility] Name: Rody Doan Age: 46 yrs Sex: Female : 1975 Arrival Date: 08/08/2022 Time: 23:10 Bed 3 Private MD: Diagnosis: Pain in right hip;Fracture of unspecified part of neck of right femur, subsequent encounter for closed fracture with nonunion Presentation: 08/08 23:43 Chief complaint: Patient states: I broke my R hip a couple months ago, I am suppose to aa9 have sx on it in a few weeks. But the pain now is awful, I feel like my hip is just gonna break my skin. I have no bone mass to hold the hip together. Coronavirus screen: Vaccine status: Patient reports receiving the 2nd dose of the covid vaccine. Ebola Screen: No symptoms or risks identified at this time. Initial Sepsis Screen: Does the patient meet any 2 criteria? No. Patient's initial sepsis screen is negative. Does the patient have a suspected source of infection? No. Patient's initial sepsis screen is negative. Risk Assessment: Do you want to hurt yourself or someone else? Patient reports no desire to harm self or others. Onset of symptoms was August 08, 2022. 23:43 Method Of Arrival: Wheelchair aa9 23:43 Acuity: MEGHA 3 aa9 Triage Assessment: 23:45 General: Appears uncomfortable, Behavior is cooperative, anxious. Pain: Complains of aa9 pain in right hip Pain does not radiate. Pain currently is 10 out of 10 on a pain scale. Noted to be crying, moaning, resistant to movement. Neuro: Level of Consciousness is awake, alert, obeys commands, Oriented to person, place, time, situation. Cardiovascular: Patient's skin is warm and dry. Respiratory: Airway is patent Respiratory effort is even, unlabored. GI: No signs and/or symptoms were reported involving the gastrointestinal system. : No signs and/or symptoms were reported regarding the genitourinary system. Derm: Skin is intact, is healthy with good turgor. 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 - Social history:: Smoking status: Patient reports the use of cigarette tobacco products, smokes one-half pack cigarettes per day. Screenin/26 00:33 [facility] ED Fall Risk Assessment (Adult) History of falling in the last 3 months, lg3 including since admission Yes- fall prone (multiple falls) (3 pts). Abuse screen: Denies threats or abuse. Denies injuries from another. Nutritional screening: No deficits noted. Tuberculosis screening: No symptoms or risk factors identified. Assessment: 00:33 General: Appears in no apparent distress. uncomfortable, Behavior is cooperative, lg3 fussy. Pain: Complains of pain in right hip Pain currently is 10 out of 10 on a pain scale. Noted to be crying, grimacing, guarding, moaning, resistant to movement. Neuro: No deficits noted. [place]os Agitation-Sedation Scale (RASS): +1 Restless Level of Consciousness is awake, alert, obeys commands, Oriented to person, place, time, situation. Cardiovascular: No deficits noted. Denies chest pain, shortness of breath, Capillary refill. Respiratory: No deficits noted. Airway is patent Respiratory effort is even, unlabored, Respiratory pattern is regular, symmetrical. GI: No deficits noted. No signs and/or symptoms were reported involving the gastrointestinal system. Abdomen is round non-distended. : No deficits noted. No signs and/or symptoms were reported regarding the genitourinary system. EENT: No deficits noted. No signs and/or symptoms were reported regarding the EENT system. Derm: No deficits noted. No signs and/or symptoms reported regarding the dermatologic system. Skin is intact, is healthy with good turgor, Skin is dry, Skin is normal, Skin temperature is warm. Musculoskeletal: Circulation, motion, and sensation intact. Range of motion: limited in right hip Reports pain in right hip. 01:47 Reassessment: Patient appears in no apparent distress at this time. No changes from lg3 previously documented assessment. Patient and/or family updated on plan of care and expected duration. Pain level reassessed. Patient is alert, oriented x 3, equal unlabored respirations, skin warm/dry/pink. 02:49 Reassessment: Patient appears in no apparent distress at this time. Patient and/or aa9 family updated on plan of care and expected duration. Pain level reassessed. pt in bed, eyes closed, breathing equal and regular. Vital Signs: 08/08 23:48 Weight 68.95 kg (R); Height 5 ft. 4 in. (R); Pain 10/10; aa9 23:59 BP 101 / 66; Resp 18; Temp 98.2; Pulse Ox 99% on R/A; aa9 08/09 00:00 Pulse 80; aa9 01:47 BP 114 / 87; Pulse 73; Resp 16 S; Pulse Ox 98% on R/A; lg3 08/08 23:48 Body Mass Index 26.09 (68.95 kg, 162.56 cm) aa9 08/08 23:48 Pain Scale: Adult aa9 ED Course: 08/08 23:13 Patient arrived in ED. [email or web address] 23:19 Perry Mart PA is PHCP. cp 23:19 Nba Marie MD is Attending Physician. cp 23:41 Tanika Almaguer, BONIFACIO is Primary Nurse. aa9 23:44 Triage completed. aa9 23:46 Arm band placed on. aa9 08/09 00:33 Patient has correct armband on for positive identification. Placed in gown. Bed in low lg3 position. Call light in reach. Side rails up X 1. Client placed on continuous cardiac and pulse oximetry monitoring. NIBP monitoring applied. Door closed. Noise minimized. Warm blanket given. Family accompanied patient. 00:33 Inserted saline lock: 22 gauge in left antecubital area, using aseptic technique. lg3 00:50 XRAY Pelvis In Process Unspecified. EDMS 01:44 XRAY Femur RIGHT In Process Unspecified. EDMS 02:43 London Quinn MD is Referral Physician. cp 02:50 No provider procedures requiring assistance completed. aa9 03:05 IV discontinued, intact, bleeding controlled, No redness/swelling at site. Pressure aa9 dressing applied. Administered Medications: 01:44 Drug: fentaNYL (PF) IVP 25 mcg Route: IVP; Site: left antecubital; aa9 02:49 Follow up: Response: No adverse reaction aa9 Medication: 02:50 VIS not applicable for this client. aa9 Outcome: 02:47 Discharge ordered by . kizzy 02:50 Condition: stable aa9 03:05 Discharged to home via wheelchair, with family. aa9 03:05 Discharge instructions given to patient, Instructed on discharge instructions, follow up and referral plans. medication usage, Demonstrated understanding of instructions, follow-up care, medications, Prescriptions given X 1. 03:05 Patient left the ED. aa9 Signatures: Dispatcher [employer] EDMS Perry Mart PA PA cp Gibson, Lacie, RN RN lg3 Yolette Zambrano [email or web address] Tanika Almaguer, RN RN aa9
[2022-08-09 04:41] VITALS: TEMP 98.2
[2022-08-09 04:44] VITALS: BP 114/87; O2SAT 98
--- NOTE | 2022-08-10 11:40 | RAD REPORT ---
EXAM DESCRIPTION: RAD - Pelvis - 08/09/2022 12:48 am CLINICAL HISTORY: 46 years Female, right hip pain TECHNIQUE: 1 view COMPARISON: None. FINDINGS: BONES/JOINT: Right femoral neck basicervical fracture. Mild superolateral displacement of the femoral component. Remaining osseous structures are intact without fracture or dislocation. Joint spaces are unremarkable. SOFT TISSUES: Unremarkable. No radiopaque foreign body. IMPRESSION: 1. Right femoral neck basicervical fracture. Electronically signed by: Rajesh Rollins MD 08/09/2022 9:04 PM CDT Due to temporary technical issues with the PACS/Fluency reporting system, reports are being signed by the in house radiologists without review as a courtesy to insure prompt reporting. The interpreting radiologist is fully responsible for the content of the report.
--- NOTE | 2022-08-10 12:07 | RAD REPORT ---
EXAM DESCRIPTION: RAD - Femur Right - 08/09/2022 1:42 am CLINICAL HISTORY: 46 years Female, PAIN Femur Right TECHNIQUE: 2 views COMPARISON: None. FINDINGS: BONES/JOINT: Right femoral neck basicervical fracture. Mild superolateral displacement of the femoral component. Remaining of the femur is otherwise intact. SOFT TISSUES: Unremarkable. No radiopaque foreign body. IMPRESSION: 1. Right femoral neck basicervical fracture. Electronically signed by: Rajesh Rollins MD 08/09/2022 9:05 PM CDT Due to temporary technical issues with the PACS/Fluency reporting system, reports are being signed by the in house radiologists without review as a courtesy to insure prompt reporting. The interpreting radiologist is fully responsible for the content of the report.
== END 2022-08-09 03:05 | disposition home or self-care (01) ==
LOC: ER 23:10
DX: S72.001K Fracture of unspecified part of neck of right femur, subsequent encounter for closed fracture with nonunion (principal); F17.210 Nicotine dependence, cigarettes, uncomplicated; Z88.5 Allergy status to narcotic agent; Z88.6 Allergy status to analgesic agent
CPT/HCPCS: 72170; 73552; J3010; 96374; 99284

== ENCOUNTER 2022-09-06 00:29 | Emergency (ER) | payer OTHER ==
--- OUTSIDE RECORDS SUMMARY | 2022-09-06 00:51 | XMS REPORT | Continuity of Care Document ---
:1975 Author Organization [facility] t Address [address] [place] [address] Care Team Providers Name Role Phone Asked, No Pcp Primary Care Physician Unavailable LUTHER JOSE Attending Clinician Unavailable BEBA_Oral_Cody Attending Clinician Unavailable Seth Ariza MD Attending Clinician STEFANIA TOBAR Attending Clinician Unavailable Stefania Tobar MD Attending Clinician LISA MURILLO Attending Clinician Unavailable Lisa Lopez Attending Clinician STEFANIA HERNADEZ Attending Clinician Unavailable Stefania Jones DO Attending Clinician ANDERSON ALATORRE Attending Clinician Unavailable Anderson Alatorre MD Attending Clinician Dionisio Freeman MD Attending Clinician Doctor Unassigned, [place] Attending Clinician Unavailable Kristine Ojeda MD Attending [...] Attending Clinician Unavailable Ila Pinto Attending Clinician Lynda Shultz MD Attending Clinician STEFANIA HOPKINS Attending Clinician Unavailable Juan Carlos Rice Attending Clinician LYNDA SHULTZ Attending Clinician Unavailable [facility] Attending Clinician Unavailable JV RANDHAWA Attending Clinician Unavailable Addison CARLOS, Mick Attending Clinician PAULINA ZAMORA Attending Clinician Unavailable Paulina Zamora MD Attending Clinician Jaspreet VALDOVINOS, Mariangel Parker Attending Clinician Unavailable Gee Baptiste MD Attending Clinician BRADEN DEAN Attending Clinician Unavailable Yolande CARLOS, [facility] Attending Clinician Aparna Rowley Attending Clinician BEBA_Mayra Admitting Clinician Unavailable LISA MURILLO Admitting Clinician Unavailable ANDERSON ALATORRE Admitting Clinician Unavailable Payers Payer Name Policy Type Policy Number Effective Date Expiration Date [facility] [id number] [facility] [id number] DH - DUAL (MEDICARE REPLACEMENT HMO) [facility] [id number] 2020 00:00:00 Problems Condition Condition Condition Status Onset Resolution Last Treating Co mments Source Name Details Category Date Date Treatment Clinician Date Other Other Disease Active Univers specified specified 11-05 [facility] [place] [facility] , , [place] [facility] unspecifie unspecifie d as to d as to episode of episode of care care Allergies, Adverse Reactions, Alerts Allergy Allergy Status Severity Reaction(s) Onset Inactive Treating Comm ents Source Name Type Date Date Clinician NO KNOWN Drug Active Univers ALLERGIE Class ity of S [facility] [place] [facility] Social History Social Habit Start Date Stop Date Quantity Comments Source History of tobacco Cigarette Smoker [facility] Gender identity [facility] Exposure to 2022-07-18 2022-07-28 Not sure [facility] SARS-CoV-2 (event) 00:00:00 08:24:00 [facility] [place] [facility] Alcohol intake 2022-07-28 2022-07-28 Current University of 00:00:00 00:00:00 non-drinker of [facility] alcohol Branch (finding) History of Social 2022-07-28 2022-07-[address] function 00:00:00 00:00:00 Hospital Tobacco use and 2022-04-25 2022-04-25 Smokeless Universit y of exposure 00:00:00 00:00:00 tobacco non-user [facility] dical Branch Cigarettes smoked 2022-04-25 2022-04-25 [facility] ity of current (pack per 00:00:00 00:00:00 [facility] ) - Reported Branch Cigarette 2022-04-25 2022-04-25 [place] of pack-years 00:00:00 00:00:00 [facility] [place] [facility] Sex Ass[birth year] At [birth year] [facility] 00:00:[facility] 00:[facility]:00 [facility] Smoking Status Start Date Stop Date Source Tobacco smoking consumption [facility] unknown Smokes tobacco daily 2022-04-25 00:00:00 Univers ity of [facility] Medications Ordered Filled Start Stop Current Ordering Indication Dosage Frequency Signature Comments Components Source Medication Medication Date Date Medication? Clinician (SIG) Name Name ondansetron 2022- No 4mg Q8H Take 1 Met hodi ODT 4-14 04-20 tablet (4 st (ZOFRAN-ODT 00:00: 04:59 mg total) Hospita ) 4 MG 00 :00 by mouth l disintegrat every 8 ing tablet (eight) hours as needed for nausea or vomiting for up to 5 days. acetaminoph 2022- [place] [id number] 1{tbl} Q6H Take 1-2 Methodi en-codeine 4-14 04-[address] (TYLENOL 00:00: 04:59 mouth [facility]ospita WITH 00 :00 every 6 l CODEINE #3) (six) 300-30 mg hours as per tablet needed for moderate pain for up to 5 days .acute pain. ondansetron 2022- No 4mg Q8H Take 1 Met hodi ODT 4-14 04-20 tablet (4 st (ZOFRAN-ODT 00:00: 04:59 mg total) Hospita ) 4 MG 00 :00 by mouth l disintegrat every 8 ing tablet (eight) hours as needed for nausea or vomiting for up to 5 days. acetaminoph 2022- [place] [id number] 1{tbl} Q6H Take 1-2 Methodi en-codeine 07-[address] (TYLENOL 00:00: 04:59 mouth [facility]ospita WITH 00 :00 every 6 l CODEINE #3) (six) 300-30 mg hours as per tablet needed for moderate pain for up to 5 days .acute pain. keTOROlac 2022- No 10mg Q6H Take 1 Metho di (TORadol) 07-28 tablet (10 st 10 mg 00:00: 04:59 mg total) Hospit a tablet 00 :00 by mouth l every 6 (six) hours as needed for moderate pain for up to 4 days. keTOROlac 0 2022- No 10mg Q6H Take 1 Metho di (TORadol) 07-28 tablet (10 st 10 mg 00:00: 04:59 mg total) Hospit a tablet 00 :00 by mouth l every 6 (six) hours as needed for moderate pain for up to 4 days. FENTanyl PF No 50ug 50 mcg, Un maria isabel [...] Branch ONCE, 1 dose, On 07/22/22 at 2045, NUZHAT USE 1 UNIT 2022-0 No DOSE IN -18 NEBULIZER 00:00: EVERY 4 TO 00 6 HOURS NEEDED. BUDESONIDE/ 2022-0 No FORMOTEROL -18 FUMARATE 00:00: DIHY DRATE 00 160-4.5 MCG/ACT AERO amLODIPine 2022-0 Yes [id number] 5mg Take 5 mg Univers 5 mg tablet 1-10 by mouth ity of 14:05: in the [place] [address] morning. Medical Branch amLODIPine 2022-0 Yes [id number] 5mg Take 5 mg Univers 5 mg tablet 1-10 by mouth ity of 14:05: in the [place] [address] morning. Medical Branch amLODIPine 2022-0 Yes [id number] 5mg Take 5 mg Univers 5 mg tablet 1-10 by mouth ity of 14:05: in the [place] [address] morning. Medical Branch amLODIPine 2022-0 Yes [id number] 5mg Take 5 mg Univers 5 mg tablet 1-10 by mouth ity of 14:05: in the [place] [address] morning. Medical Branch amLODIPine 2022-0 Yes [id number] 5mg Take 5 mg Univers 5 mg tablet 1-10 by mouth ity of 14:05: in the [place] [address] morning. Medical Branch amLODIPine 2022-0 Yes [id number] 5mg Take 5 mg Univers 5 mg tablet 1-10 by mouth ity of 14:05: in the [place] [address] morning. Medical Branch amLODIPine 2022-0 Yes [id number] 5mg Take 5 mg Univers 5 mg tablet 1-10 by mouth ity of 14:05: in the [place] [address] morning. Medical Branch amLODIPine 2022-0 Yes [id number] 5mg Take 5 mg Univers 5 mg tablet 1-10 by mouth ity of 14:05: in the [place] [address] morning. Medical Branch amLODIPine 2022-0 Yes [id number] 5mg Take 5 mg Univers 5 mg tablet 1-10 by mouth ity of 14:05: in the [place] [address] morning. Medical Branch amLODIPine 2022-0 Yes [id number] 5mg Take 5 mg Univers 5 mg tablet 1-10 by mouth ity of 14:05: in the [place] [address] morning. Medical Branch amLODIPine 2022-0 Yes [id number] 5mg Take 5 mg Univers 5 mg tablet 1-10 by mouth ity of 14:05: in the [place] [address] morning. Medical Branch amLODIPine 3-0 Yes [id number] 5mg Take 5 mg Univers 5 mg tablet 1-10 by mouth ity of 14:05: in the [place] [address] morning. Medical Branch amLODIPine 3-0 Yes [id number] 5mg Take 5 mg Univers 5 mg tablet 1-10 by mouth ity of 14:05: in the [place] [address] morning. Medical Branch amLODIPine 3-0 Yes [id number] 5mg Take 5 mg Univers 5 mg tablet 1-10 by mouth ity of 14:05: in the [place] [address] morning. Medical Branch amLODIPine 3-0 Yes [id number] 5mg Take 5 mg Univers 5 mg tablet 1-10 by mouth ity of 14:05: in the [place] [address] morning. Medical Branch amLODIPine 3-0 Yes [id number] 5mg Take 5 mg Univers 5 mg tablet 1-10 by mouth ity of 14:05: in the [place] [address] morning. Medical Branch amLODIPine 3-0 Yes [id number] 5mg Take 5 mg Univers 5 mg tablet 1-10 by mouth ity of 14:05: in the [place] [address] morning. Medical Branch omeprazole 3-0 Yes [id number] 40mg Take 40 mg Univers 40 mg 1-10 by mouth ity of capsule 13:52: in the [place] [address] morning. Medical Branch omeprazole 3-0 Yes [id number] 40mg Take 40 mg Univers 40 mg 1-10 by mouth ity of capsule 13:52: in the [place] [address] morning. Medical Branch omeprazole 3-0 Yes [id number] 40mg Take 40 mg Univers 40 mg 1-10 by mouth ity of capsule 13:52: in the [place] [address] morning. Medical Branch omeprazole 2023-0 Yes [id number] 40mg Take 40 mg Univers 40 mg 1-10 by mouth ity of capsule 13:52: in the [place] [address] morning. Medical Branch omeprazole 2023-0 Yes [id number] 40mg Take 40 mg Univers 40 mg 1-10 by mouth ity of capsule 13:52: in the [place] [address] morning. Medical Branch omeprazole 2023-0 Yes [id number] 40mg Take 40 mg Univers 40 mg 1-10 by mouth ity of capsule 13:52: in the [place] [address] morning. Medical Branch omeprazole 2023-0 Yes [id number] 40mg Take 40 mg Univers 40 mg 1-10 by mouth ity of capsule 13:52: in the [place] [address] morning. Medical Branch omeprazole 3-0 Yes [id number] 40mg Take 40 mg Univers 40 mg 1-10 by mouth ity of capsule 13:52: in the [place] [address] morning. Medical Branch omeprazole 3-0 Yes [id number] 40mg Take 40 mg Univers 40 mg 1-10 by mouth ity of capsule 13:52: in the [place] [address] morning. Medical Branch omeprazole 3-0 Yes [id number] 40mg Take 40 mg Univers 40 mg 1-10 by mouth ity of capsule 13:52: in the [place] [address] morning. Medical Branch omeprazole 3-0 Yes [id number] 40mg Take 40 mg Univers 40 mg 1-10 by mouth ity of capsule 13:52: in the [place] [address] morning. Medical Branch omeprazole 3-0 Yes [id number] 40mg Take 40 mg Univers 40 mg 1-10 by mouth ity of capsule 13:52: in the [place] [address] morning. Medical Branch omeprazole 3-0 Yes [id number] 40mg Take 40 mg Univers 40 mg 1-10 by mouth ity of capsule 13:52: in the [place] [address] morning. Medical Branch omeprazole 3-0 Yes [id number] 40mg Take 40 mg Univers 40 mg 1-10 by mouth ity of capsule 13:52: in the [place] [address] morning. Medical Branch omeprazole 3-0 Yes [id number] 40mg Take 40 mg Univers 40 mg 1-10 by mouth ity of capsule 13:52: in the [place] [address] morning. Medical Branch omeprazole 3-0 Yes [id number] 40mg Take 40 mg Univers 40 mg 1-10 by mouth ity of capsule 13:52: in the [place] [address] morning. Medical Branch omeprazole 2023-0 Yes [id number] 40mg Take 40 mg Univers 40 mg 1-10 by mouth ity of capsule 13:52: in the [place] [address] morning. Medical Branch clonazePAM 2023-0 Yes [id number] 1mg Take 1 mg Univers 1 mg tablet 1-10 by mouth 3 it y of 13:51: (three) [place] 23 times Medical daily as Branch needed. clonazePAM 2023-0 Yes [id number] 1mg Take 1 mg Univers 1 mg tablet 1-10 by mouth 3 it y of 13:51: (three) [place] 23 times Medical daily as Branch needed. clonazePAM 2023-0 Yes [id number] 1mg Take 1 mg Univers 1 mg tablet 1-10 by mouth 3 it y of 13:51: (three) [place] 23 times Medical daily as Branch needed. clonazePAM 2023-0 Yes [id number] 1mg Take 1 mg Univers 1 mg tablet 1-10 by mouth 3 it y of 13:51: (three) [place] 23 times Medical daily as Branch needed. clonazePAM 2023-0 Yes [id number] 1mg Take 1 mg Univers 1 mg tablet 1-10 by mouth 3 it y of 13:51: (three) [place] 23 times Medical daily as Branch needed. clonazePAM 2023-0 Yes [id number] 1mg Take 1 mg Univers 1 mg tablet 1-10 by mouth 3 it y of 13:51: (three) [place] 23 times Medical daily as Branch needed. clonazePAM 2023-0 Yes [id number] 1mg Take 1 mg Univers 1 mg tablet 1-10 by mouth 3 it y of 13:51: (three) [place] 23 times Medical daily as Branch needed. clonazePAM 2023-0 Yes [id number] 1mg Take 1 mg Univers 1 mg tablet 1-10 by mouth 3 it y of 13:51: (three) [place] 23 times Medical daily as Branch needed. clonazePAM 2023-0 Yes [id number] 1mg Take 1 mg Univers 1 mg tablet 1-10 by mouth 3 it y of 13:51: (three) [place] 23 times Medical daily as Branch needed. clonazePAM 2023-0 Yes [id number] 1mg Take 1 mg Univers 1 mg tablet 1-10 by mouth 3 it y of 13:51: (three) [place] 23 times Medical daily as Branch needed. clonazePAM 2023-0 Yes [id number] 1mg Take 1 mg Univers 1 mg tablet 1-10 by mouth 3 it y of 13:51: (three) [place] 23 times Medical daily as Branch needed. clonazePAM 2023-0 Yes [id number] 1mg Take 1 mg Univers 1 mg tablet 1-10 by mouth 3 it y of 13:51: (three) [place] 23 times Medical daily as Branch needed. clonazePAM 2023-0 Yes [id number] 1mg Take 1 mg Univers 1 mg tablet 1-10 by mouth 3 it y of 13:51: (three) [place] 23 times Medical daily as Branch needed. clonazePAM 2023-0 Yes [id number] 1mg Take 1 mg Univers 1 mg tablet 1-10 by mouth 3 it y of 13:51: (three) [place] 23 times Medical daily as Branch needed. clonazePAM 2023-0 Yes [id number] 1mg Take 1 mg Univers 1 mg tablet 1-10 by mouth 3 it y of 13:51: (three) [place] 23 times Medical daily as Branch needed. clonazePAM 2023-0 Yes [id number] 1mg Take 1 mg Univers 1 mg tablet 1-10 by mouth 3 it y of 13:51: (three) [place] 23 times Medical daily as Branch needed. clonazePAM 3-0 Yes [id number] 1mg Take 1 mg Univers 1 mg tablet 1-10 by mouth 3 it y of 13:51: (three) [place] 23 times Medical daily as Branch needed. lithium 3-0 Yes [id number] 150mg Take 0.5 Univers carbonate 1-10 tablets by ity of 300 mg 00:00: mouth in [place] tablet 00 the Medical morning. Branch QUEtiapine 2022-0 Yes [id number] 50mg Take 1 Univers 50 mg 1-10 tablet by ity of tablet 00:00: mouth at [place] 00 bedtime as Medical needed for Branch Insomnia. gabapentin 2023-0 Yes [id number] 600mg Take 2 Univers 300 mg 1-10 9102 capsules ity of capsule 00:00: by mouth [place] 00 in the Medical morning Branch and 2 capsules at noon and 2 capsules in the evening. hydrOXYzine 3-0 Yes [id number] 25mg Take 1 Univers 25 mg 1-10 tablet by ity of tablet 00:00: mouth [place] 00 every 6 Medical (six) Branch hours as needed for Anxiety. lithium 2023-0 Yes [id number] 150mg Take 0.5 Univers carbonate 1-10 tablets by ity of 300 mg 00:00: mouth in [place] tablet 00 the Medical morning. Branch QUEtiapine 2023-0 Yes [id number] 50mg Take 1 Univers 50 mg 1-10 tablet by ity of tablet 00:00: mouth at [place] 00 bedtime as Medical needed for Branch Insomnia. gabapentin 2023-0 Yes [id number] 600mg Take 2 Univers 300 mg 1-10 9102 capsules ity of capsule 00:00: by mouth [place] 00 in the Medical morning Branch and 2 capsules at noon and 2 capsules in the evening. hydrOXYzine 2023-0 Yes [id number] 25mg Take 1 Univers 25 mg 1-10 tablet by ity of tablet 00:00: mouth [place] 00 every 6 Medical (six) Branch hours as needed for Anxiety. lithium 2023-0 Yes [id number] 150mg Take 0.5 Univers carbonate 1-10 tablets by ity of 300 mg 00:00: mouth in [place] tablet 00 the Medical morning. Branch QUEtiapine 2022-0 Yes [id number] 50mg Take 1 Univers 50 mg 1-10 tablet by ity of tablet 00:00: mouth at [place] 00 bedtime as Medical needed for Branch Insomnia. gabapentin 3-0 Yes [id number] 600mg Take 2 Univers 300 mg 1-10 9102 capsules ity of capsule 00:00: by mouth [place] 00 in the Medical morning Branch and 2 capsules at noon and 2 capsules in the evening. hydrOXYzine 3-0 Yes [id number] 25mg Take 1 Univers 25 mg 1-10 tablet by ity of tablet 00:00: mouth [place] 00 every 6 Medical (six) Branch hours as needed for Anxiety. lithium 3-0 Yes [id number] 150mg Take 0.5 Univers carbonate 1-10 tablets by ity of 300 mg 00:00: mouth in [place] tablet 00 the Medical morning. Branch QUEtiapine 2022-0 Yes [id number] 50mg Take 1 Univers 50 mg 1-10 tablet by ity of tablet 00:00: mouth at [place] 00 bedtime as Medical needed for Branch Insomnia. gabapentin 3-0 Yes [id number] 600mg Take 2 Univers 300 mg 1-10 9102 capsules ity of capsule 00:00: by mouth [place] 00 in the Medical morning Branch and 2 capsules at noon and 2 capsules in the evening. hydrOXYzine 2023-0 Yes [id number] 25mg Take 1 Univers 25 mg 1-10 tablet by ity of tablet 00:00: mouth [place] 00 every 6 Medical (six) Branch hours as needed for Anxiety. lithium 2023-0 Yes [id number] 150mg Take 0.5 Univers carbonate 1-10 tablets by ity of 300 mg 00:00: mouth in [place] tablet 00 the Medical morning. Branch QUEtiapine 3-0 Yes [id number] 50mg Take 1 Univers 50 mg 1-10 tablet by ity of tablet 00:00: mouth at [place] 00 bedtime as Medical needed for Branch Insomnia. gabapentin 2023-0 Yes [id number] 600mg Take 2 Univers 300 mg 1-10 9102 capsules ity of capsule 00:00: by mouth [place] 00 in the Medical morning Branch and 2 capsules at noon and 2 capsules in the evening. hydrOXYzine 2023-0 Yes [id number] 25mg Take 1 Univers 25 mg 1-10 tablet by ity of tablet 00:00: mouth [place] 00 every 6 Medical (six) Branch hours as needed for Anxiety. lithium 2023-0 Yes [id number] 150mg Take 0.5 Univers carbonate 1-10 tablets by ity of 300 mg 00:00: mouth in [place] tablet 00 the Medical morning. Branch QUEtiapine 2023-0 Yes [id number] 50mg Take 1 Univers 50 mg 1-10 tablet by ity of tablet 00:00: mouth at [place] 00 bedtime as Medical needed for Branch Insomnia. gabapentin 2023-0 Yes [id number] 600mg Take 2 Univers 300 mg 1-10 9102 capsules ity of capsule 00:00: by mouth [place] 00 in the Medical morning Branch and 2 capsules at noon and 2 capsules in the evening. hydrOXYzine 2023-0 Yes [id number] 25mg Take 1 Univers 25 mg 1-10 tablet by ity of tablet 00:00: mouth [place] 00 every 6 Medical (six) Branch hours as needed for Anxiety. lithium 2023-0 Yes [id number] 150mg Take 0.5 Univers carbonate 1-10 tablets by ity of 300 mg 00:00: mouth in [place] tablet 00 the Medical morning. Branch QUEtiapine 2023-0 Yes [id number] 50mg Take 1 Univers 50 mg 1-10 tablet by ity of tablet 00:00: mouth at [place] 00 bedtime as Medical needed for Branch Insomnia. gabapentin 2023-0 Yes [id number] 600mg Take 2 Univers 300 mg 1-10 9102 capsules ity of capsule 00:00: by mouth [place] 00 in the Medical morning Branch and 2 capsules at noon and 2 capsules in the evening. hydrOXYzine 2023-0 Yes [id number] 25mg Take 1 Univers 25 mg 1-10 tablet by ity of tablet 00:00: mouth [place] 00 every 6 Medical (six) Branch hours as needed for Anxiety. lithium 2023-0 Yes [id number] 150mg Take 0.5 Univers carbonate 1-10 tablets by ity of 300 mg 00:00: mouth in [place] tablet 00 the Medical morning. Branch QUEtiapine 3-0 Yes [id number] 50mg Take 1 Univers 50 mg 1-10 tablet by ity of tablet 00:00: mouth at [place] 00 bedtime as Medical needed for Branch Insomnia. gabapentin 3-0 Yes [id number] 600mg Take 2 Univers 300 mg 1-10 9102 capsules ity of capsule 00:00: by mouth [place] 00 in the Medical morning Branch and 2 capsules at noon and 2 capsules in the evening. hydrOXYzine 2023-0 Yes [id number] 25mg Take 1 Univers 25 mg 1-10 tablet by ity of tablet 00:00: mouth [place] 00 every 6 Medical (six) Branch hours as needed for Anxiety. lithium 3-0 Yes [id number] 150mg Take 0.5 Univers carbonate 1-10 tablets by ity of 300 mg 00:00: mouth in [place] tablet 00 the Medical morning. Branch QUEtiapine 2022-0 Yes [id number] 50mg Take 1 Univers 50 mg 1-10 tablet by ity of tablet 00:00: mouth at [place] 00 bedtime as Medical needed for Branch Insomnia. gabapentin 3-0 Yes [id number] 600mg Take 2 Univers 300 mg 1-10 9102 capsules ity of capsule 00:00: by mouth [place] 00 in the Medical morning Branch and 2 capsules at noon and 2 capsules in the evening. hydrOXYzine 2023-0 Yes [id number] 25mg Take 1 Univers 25 mg 1-10 tablet by ity of tablet 00:00: mouth [place] 00 every 6 Medical (six) Branch hours as needed for Anxiety. lithium 3-0 Yes [id number] 150mg Take 0.5 Univers carbonate 1-10 tablets by ity of 300 mg 00:00: mouth in [place] tablet 00 the Medical morning. Branch QUEtiapine 3-0 Yes [id number] 50mg Take 1 Univers 50 mg 1-10 tablet by ity of tablet 00:00: mouth at [place] 00 bedtime as Medical needed for Branch Insomnia. gabapentin 3-0 Yes [id number] 600mg Take 2 Univers 300 mg 1-10 9102 capsules ity of capsule 00:00: by mouth [place] 00 in the Medical morning Branch and 2 capsules at noon and 2 capsules in the evening. hydrOXYzine 2023-0 Yes [id number] 25mg Take 1 Univers 25 mg 1-10 tablet by ity of tablet 00:00: mouth [place] 00 every 6 Medical (six) Branch hours as needed for Anxiety. lithium 3-0 Yes [id number] 150mg Take 0.5 Univers carbonate 1-10 tablets by ity of 300 mg 00:00: mouth in [place] tablet 00 the Medical morning. Branch QUEtiapine 2022-0 Yes [id number] 50mg Take 1 Univers 50 mg 1-10 tablet by ity of tablet 00:00: mouth at [place] 00 bedtime as Medical needed for Branch Insomnia. gabapentin 2022-0 Yes [id number] 600mg Take 2 Univers 300 mg 1-10 9102 capsules ity of capsule 00:00: by mouth [place] 00 in the Medical morning Branch and 2 capsules at noon and 2 capsules in the evening. hydrOXYzine 2022-0 Yes [id number] 25mg Take 1 Univers 25 mg 1-10 tablet by ity of tablet 00:00: mouth [place] 00 every 6 Medical (six) Branch hours as needed for Anxiety. lithium 3-0 Yes [id number] 150mg Take 0.5 Univers carbonate 1-10 tablets by ity of 300 mg 00:00: mouth in [place] tablet 00 the Medical morning. Branch QUEtiapine 2022-0 Yes [id number] 50mg Take 1 Univers 50 mg 1-10 tablet by ity of tablet 00:00: mouth at [place] 00 bedtime as Medical needed for Branch Insomnia. gabapentin 3-0 Yes [id number] 600mg Take 2 Univers 300 mg 1-10 9102 capsules ity of capsule 00:00: by mouth [place] 00 in the Medical morning Branch and 2 capsules at noon and 2 capsules in the evening. hydrOXYzine 3-0 Yes [id number] 25mg Take 1 Univers 25 mg 1-10 tablet by ity of tablet 00:00: mouth [place] 00 every 6 Medical (six) Branch hours as needed for Anxiety. lithium 2023-0 Yes [id number] 150mg Take 0.5 Univers carbonate 1-10 tablets by ity of 300 mg 00:00: mouth in [place] tablet 00 the Medical morning. Branch QUEtiapine 3-0 Yes [id number] 50mg Take 1 Univers 50 mg 1-10 tablet by ity of tablet 00:00: mouth at [place] 00 bedtime as Medical needed for Branch Insomnia. gabapentin 2023-0 Yes [id number] 600mg Take 2 Univers 300 mg 1-10 9102 capsules ity of capsule 00:00: by mouth [place] 00 in the Medical morning Branch and 2 capsules at noon and 2 capsules in the evening. hydrOXYzine 2023-0 Yes [id number] 25mg Take 1 Univers 25 mg 1-10 tablet by ity of tablet 00:00: mouth [place] 00 every 6 Medical (six) Branch hours as needed for Anxiety. lithium 2023-0 Yes [id number] 150mg Take 0.5 Univers carbonate 1-10 tablets by ity of 300 mg 00:00: mouth in [place] tablet 00 the Medical morning. Branch QUEtiapine 2023-0 Yes [id number] 50mg Take 1 Univers 50 mg 1-10 tablet by ity of tablet 00:00: mouth at [place] 00 bedtime as Medical needed for Branch Insomnia. gabapentin 3-0 Yes [id number] 600mg Take 2 Univers 300 mg 1-10 9102 capsules ity of capsule 00:00: by mouth [place] 00 in the Medical morning Branch and 2 capsules at noon and 2 capsules in the evening. hydrOXYzine 2023-0 Yes [id number] 25mg Take 1 Univers 25 mg 1-10 tablet by ity of tablet 00:00: mouth [place] 00 every 6 Medical (six) Branch hours as needed for Anxiety. lithium 2023-0 Yes [id number] 150mg Take 0.5 Univers carbonate 1-10 tablets by ity of 300 mg 00:00: mouth in [place] tablet 00 the Medical morning. Branch QUEtiapine 2023-0 Yes [id number] 50mg Take 1 Univers 50 mg 1-10 tablet by ity of tablet 00:00: mouth at [place] 00 bedtime as Medical needed for Branch Insomnia. gabapentin 2023-0 Yes [id number] 600mg Take 2 Univers 300 mg 1-10 9102 capsules ity of capsule 00:00: by mouth [place] 00 in the Medical morning Branch and 2 capsules at noon and 2 capsules in the evening. hydrOXYzine 2023-0 Yes [id number] 25mg Take 1 Univers 25 mg 1-10 tablet by ity of tablet 00:00: mouth [place] 00 every 6 Medical (six) Branch hours as needed for Anxiety. lithium 2023-0 Yes [id number] 150mg Take 0.5 Univers carbonate 1-10 tablets by ity of 300 mg 00:00: mouth in [place] tablet 00 the Medical morning. Branch QUEtiapine 2022-0 Yes [id number] 50mg Take 1 Univers 50 mg 1-10 tablet by ity of tablet 00:00: mouth at [place] 00 bedtime as Medical needed for Branch Insomnia. gabapentin 2022-0 Yes [id number] 600mg Take 2 Univers 300 mg 1-10 9102 capsules ity of capsule 00:00: by mouth [place] 00 in the Medical morning Branch and 2 capsules at noon and 2 capsules in the evening. hydrOXYzine 2022-0 Yes [id number] 25mg Take 1 [facility] 25 mg 1-10 tablet by ity of tablet 00:00: mouth [place] 00 every 6 Medical (six) Branch hours as needed for Anxiety. lithium 2022-0 Yes [id number] 150mg Take 0.5 [facility] carbonate 1-10 tablets by ity of 300 mg 00:00: mouth in [place] tablet 00 the Medical morning. Branch QUEtiapine 2022-0 Yes [id number] 50mg Take 1 [facility] 50 mg 1-10 tablet by ity of tablet 00:00: mouth at [place] 00 bedtime as Medical needed for Branch Insomnia. gabapentin 2022-0 Yes [id number] 600mg Take 2 [facility] 300 mg 1-10 9102 capsules ity of capsule 00:00: by mouth [place] 00 in the Medical morning Branch and 2 capsules at noon and 2 capsules in the evening. hydrOXYzine 2022-0 Yes [id number] 25mg Take 1 [facility] 25 mg 1-10 tablet by ity of tablet 00:00: mouth [place] 00 every 6 Medical (six) Branch hours as needed for Anxiety. methocarbam 2022-0 2022- No [id number] 750mg Take 1 [facility] oL 750 mg 1-10 02-10 9102 tablet by ity of tablet 00:00: 05:59 mouth 4 [place] 00 :00 (four) Medical times Branch daily for 30 days. methocarbam 2022-0 2022- No [id number] 750mg Take 1 [facility] oL 750 mg 1-10 02-10 9102 tablet by ity of tablet 00:00: 05:59 mouth 4 [place] 00 :00 (four) Medical times Branch daily for 30 days. methocarbam 2022-0 2022- No [id number] 750mg Take 1 [facility] oL 750 mg 1-10 02-10 9102 tablet by ity of tablet 00:00: 05:59 mouth 4 [place] 00 :00 (four) Medical times Branch daily for 30 days. methocarbam No [id number] 750mg Take 1 [facility] oL 750 mg 04-25 9102 tablet by ity of tablet 00:00: 05:59 mouth 4 [place] 00 :00 (four) Medical times Branch daily for 30 days. methocarbam 2022- No [id number] 750mg Take 1 [facility] oL 750 mg 04-25 9102 tablet by ity of tablet 00:00: 05:59 mouth 4 [place] 00 :00 (four) Medical times Branch daily for 30 days. methocarbam No [id number] 750mg Take 1 [facility] oL 750 mg 04-25 9102 tablet by ity of tablet 00:00: 05:59 mouth 4 [place] 00 :00 (four) Medical times Branch daily for 30 days. methocarbam No [id number] 750mg Take 1 [facility] oL 750 mg 04-25 9102 tablet by ity of tablet 00:00: 05:59 mouth 4 [place] 00 :00 (four) Medical times Branch daily for 30 days. methocarbam 2022- No [id number] 750mg Take 1 [facility] oL 750 mg 04-25 9102 tablet by ity of tablet 00:00: 05:59 mouth 4 [place] 00 :00 (four) Medical times Branch daily for 30 days. MONTELUKAST 2021-04 No 10 SODIUM 10 2-22 MG TABS 00:00: 00 BUSPIRONE 2021-04 No HCL 15 MG 2-21 TABS 00:00: 00 TAKE 1 2021-04 No TABLET 2-14 EVERY 4 00:00: HOURS 00 NEEDED. TAKE 5 ML 2021-04 No EVERY 4 TO 2-14 6 HOURS 00:00: NEEDED. 00 INHALE 1 TO 2021-04 No 2 PUFFS 2-14 EVERY 4 TO 00:00: 6 HOURS 00 NEEDED. USE 2 2021-04 No SPRAYS IN 2-14 EACH 00:00: NOSTRIL 00 ONCE DAILY TAKE 1 2021-04 No CAPSULE 3 2-14 TIMES DAILY [...] MOUTH FOUR 00:00: TIMES DAILY 00 Dose 2021-04 No Unknown 2-14 00:00: [...] 100 MG CAPS 2-14 00:00: 00 TAKE 2021-04 No TABLET BY [...] 2021-04 No Unknown 2-14 00:00: 00 GABAPENTIN 2021-04 No 800 MG TABS 2-14 00:00: 00 [...] 2-14 00:00: 00 Dose 2021-04 No Unknown 214 00:00: 00 INHALE 2 2021-04 No PUFFS TWICE 2-14 A DAY 00:00: 00 BROMPHEN/PS 2021-04 No EUDOEPHEDRI 05-30 NE 00:00: HCL/DEXTRO 00 METHORPHAN HBR 30-2-10 MG/5ML SYRP INHALE 2 2021-04 No PUFFS BY 2-14 MOUTH EVERY 00:00: 4 HOURS 00 NEEDED FOR SHORTNESS OF BREATH/WHEE ZING VYVANSE 30 2021-04 No MG CAPS 05-30 00:00: 00 NALTREXONE 2021-04 No HCL 50 MG 2-14 TABS 00:00: 00 TAKE 2021-04 No TABLET BY 2-14 MOUTH EVERY 00:00: 12 HOURS 00 TAKE 2021-04 No CAPSULE BY 2-14 MOUTH EVERY 00:00: 8 HOURS 00 NEEDED DISSOLVE 2021-04 No CAPFUL IN 2-14 4-8 OZ OF 00:00: LIQUID AND 00 DRINK BY MOUTH EVERY DAY (HOLD FOR LOOSE STOOL) CYCLOBENZAP 2021-04 No 5 RINE -14 HYDROCHLORI 00:00: DE 5 MG 00 TABS Dose 2021-04 No 1 Unknown 14 00:00: 00 TAKE 2021-04 No CAPSULE BY 2-14 MOUTH TWICE 00:00: A DAY 00 TAKE 2021-04 No TABLET BY 2-14 MOUTH 3 00:00: TIMES A DAY 00 WITH FOOD Dose 2021-04 No Unknown 14 00:00: 00 SPRAY 2 2021-04 No SPRAYS [...] TIMES DAILY 00 Dose 2021-04 No Unknown 2-01 00:00: 00 AMPHETAMINE 2021-04 No 30 /DEXTROAMPH 2-01 ETAMINE 30 00:00: MG TABS 00 Dose 2021-04 No Unknown 2-01 00:00: 00 Dose 2021-04 No Unknown 2-01 00:00: 00 AMPHETAMINE 2021-04 No 30 /DEXTROAMPH 2-01 ETAMINE 30 00:00: MG TABS 00 TAKE 2021-04 No TABLET BY 2-01 MOUTH THREE 00:00: TIMES A DAY 00 ETODOLAC 2021-04 No 400 MG TABS 1-23 00:00: 00 ETODOLAC 2021-04 No 400 MG TABS 1-23 00:00: 00 Dose 2021-04 No Unknown 1-15 00:00: 00 Dose 2021-04 No 30 Unknown 1-15 00:00: 00 LEVOTHYROXI 2021-04 No NE SODIUM 1-03 150 MCG 00:00: TABS 00 LEVOTHYROXI 2021-04 No NE SODIUM 1-03 150 MCG 00:00: TABS 00 amphetamine 2021-04 Yes [id number] 30mg Take 30 mg [facility] -dextroamph 0-20 by mouth ity of etamine 30 00:00: in the [place] mg 24 hr 00 morning Medical capsule and 30 mg Branch in the evening. amphetamine 2021- Yes [id number] 30mg Take 30 mg [facility] -dextroamph 0-20 by mouth ity of etamine 30 00:00: in the [place] mg 24 hr 00 morning Medical capsule and 30 mg Branch in the evening. amphetamine 2021-1 Yes [id number] 30mg Take 30 mg [facility] -dextroamph 0-20 by mouth ity of etamine 30 00:00: in the [place] mg 24 hr 00 morning Medical capsule and 30 mg Branch in the evening. amphetamine 2021-1 Yes [id number] 30mg Take 30 mg [facility] -dextroamph 0-20 by mouth ity of etamine 30 00:00: in the [place] mg 24 hr 00 morning Medical capsule and 30 mg Branch in the evening. amphetamine 2021-1 Yes [id number] 30mg Take 30 mg [facility] -dextroamph 0-20 by mouth ity of etamine 30 00:00: in the [place] mg 24 hr 00 morning Medical capsule and 30 mg Branch in the evening. amphetamine 2021-1 Yes [id number] 30mg Take 30 mg [facility] -dextroamph 0-20 by mouth ity of etamine 30 00:00: in the [place] mg 24 hr 00 morning Medical capsule and 30 mg Branch in the evening. amphetamine 2021-1 Yes [id number] 30mg Take 30 mg [facility] -dextroamph 0-20 by mouth ity of etamine 30 00:00: in the [place] mg 24 hr 00 morning Medical capsule and 30 mg Branch in the evening. amphetamine 2021-1 Yes [id number] 30mg Take 30 mg [facility] -dextroamph 0-20 by mouth ity of etamine 30 00:00: in the [place] mg 24 hr 00 morning Medical capsule and 30 mg Branch in the evening. amphetamine 2021-1 Yes [id number] 30mg Take 30 mg [facility] -dextroamph 0-20 by mouth ity of etamine 30 00:00: in the [place] mg 24 hr 00 morning Medical capsule and 30 mg Branch in the evening. amphetamine 2021-1 Yes [id number] 30mg Take 30 mg [facility] -dextroamph 0-20 by mouth ity of etamine 30 00:00: in the [place] mg 24 hr 00 morning Medical capsule and 30 mg Branch in the evening. amphetamine 2021-1 Yes [id number] 30mg Take 30 mg [facility] -dextroamph 0-20 by mouth ity of etamine 30 00:00: in the [place] mg 24 hr 00 morning Medical capsule and 30 mg Branch in the evening. amphetamine 2021-04 Yes [id number] 30mg Take 30 mg [facility] -dextroamph 0-20 by mouth ity of etamine 30 00:00: in the [place] mg 24 hr 00 morning Medical capsule and 30 mg Branch in the evening. amphetamine 2021-04 Yes [id number] 30mg Take 30 mg [facility] -dextroamph 0-20 by mouth ity of etamine 30 00:00: in the [place] mg 24 hr 00 morning Medical capsule and 30 mg Branch in the evening. amphetamine 2021-04 Yes [id number] 30mg Take 30 mg [facility] -dextroamph 0-20 by mouth ity of etamine 30 00:00: in the [place] mg 24 hr 00 morning Medical capsule and 30 mg Branch in the evening. amphetamine 2021-04 Yes [id number] 30mg Take 30 mg [facility] -dextroamph 0-20 by mouth ity of etamine 30 00:00: in the [place] mg 24 hr 00 morning Medical capsule and 30 mg Branch in the evening. amphetamine 2021-04 Yes [id number] 30mg Take 30 mg [facility] -dextroamph 0-20 by mouth ity of etamine 30 00:00: in the [place] mg 24 hr 00 morning Medical capsule and 30 mg Branch in the evening. amphetamine 2021-04 Yes [id number] 30mg Take 30 mg [facility] -dextroamph 0-20 by mouth ity of etamine 30 00:00: in the [place] mg 24 hr 00 morning Medical capsule and 30 mg Branch in the evening. TAKE 2021-04 No 100 CAPSULE 0-20 TWICE 00:00: DAILY. 00 TAKE 1 2021-04 No 1unit CAPSULE 0-20 TWICE 00:00: DAILY. 00 QUETIAPINE 2021-04 No FUMARATE 0-19 400 MG TABS 00:00: 00 LISINOPRIL 2021- No 10 MG TABS 0-19 00:00: 00 TAKE 3 2021- No 20 CAPSULES BY 0-19 MOUTH EVERY 00:00: DAY 00 Dose 2021- No Unknown 0-19 00:00: 00 QUETIAPINE 2021- No FUMARATE 0-19 400 MG TABS 00:00: 00 Dose 2021-1 No Unknown 0-19 00:00: 00 TAKE 3 2021-04 No 20 CAPSULES BY 0-19 MOUTH EVERY 00:00: DAY 00 Dose 2021- No Unknown 0-19 00:00: 00 Dose 2021- No Unknown 0-19 00:00: 00 LISINOPRIL 2021-04 No 10 MG TABS 0-19 00:00: 00 TAKE 3 2021-04 No CAPSULES BY 0-19 MOUTH EVERY 00:00: DAY 00 Dose 2021- No 1 Unknown 0-19 00:00: 00 methocarbam 2021-2022- No [facility] rs oL 750 mg 0-19 01-10 ity of tablet 00:00: 00:00 [place] 00 :00 Medical Branch methocarbam 2021-04- No [facility] rs oL 750 mg 0-19 01-10 ity of tablet 00:00: 00:00 [place] 00 :00 Medical Branch methocarbam 2021-04- No Un[facility] rs oL 750 mg 0-19 01-10 ity of tablet 00:00: 00:00 [place] 00 :00 Medical Branch methocarbam 2021-04- No Un[facility] rs oL 750 mg 0-19 01-10 ity of tablet 00:00: 00:00 [place] 00 :00 Medical Branch methocarbam 2021-04- No Un[facility] rs oL 750 mg 0-19 01-10 ity of tablet 00:00: 00:00 [place] 00 :00 Medical Branch methocarbam 2021-04- No Unive rs oL 750 mg 0-19 01-10 ity of tablet 00:00: 00:00 [place] 00 :00 Medical Branch SYMBICORT 2021-04 Yes INHALE 2 Univ ers 160-4.5 0-14 PUFFS ity of mcg/actuati 00:00: TWICE [place] on inhaler 00 DAILY. Medical RINSE Branch MOUTH AFTER USE. SYMBICORT 2021-04 Yes INHALE 2 Univ ers 160-4.5 0-14 PUFFS ity of mcg/actuati 00:00: TWICE [place] on inhaler 00 DAILY. Medical RINSE Branch MOUTH AFTER USE. SYMBICORT 2021-04 Yes INHALE 2 Univ ers 160-4.5 0-14 PUFFS ity of mcg/actuati 00:00: TWICE [place] on inhaler 00 DAILY. Medical RINSE Branch [...] DE 10 MG 00:00: TABS 00 BUSPIRONE 2021-1 No HYDROCHLORI 0-14 DE 10 MG 00:00: TABS 00 BUSPIRONE 2021-1 No HYDROCHLORI 0-14 DE 10 MG 00:00: TABS 00 gabapentin 2-1 2022- No Univer s 300 mg 0-14 01-10 ity of capsule 00:00: 00:00 [place] 00 :00 Medical Branch gabapentin 2-1 202- No Univer s 300 mg 0-14 01-10 ity of capsule 00:00: 00:00 [place] 00 :00 Medical Branch gabapentin 2022-1 2023- No Univer s 300 mg 0-14 01-10 ity of capsule 00:00: 00:00 [place] 00 :00 Medical Branch gabapentin 2022-1 2023- No Univer s 300 mg 0-14 01-10 ity of capsule 00:00: 00:00 [place] 00 :00 Medical Branch gabapentin 2022-1 2023- No Univer s 300 mg 0-14 01-10 ity of capsule 00:00: 00:00 [place] 00 :00 Medical Branch gabapentin 2022-1 202- No Univer s 300 mg 0-14 01-10 ity of capsule 00:00: 00:00 [place] 00 :00 Medical Branch PROAIR HFA 2021-04 No 108 (90 0-04 Base) 00:00: MCG/ACT 00 AERS TAKE 2021-04 No 50 TABLET ONCE 0-04 A DAY 00:00: (DAILY) 00 NEEDED FOR MIGRAINES PROAIR HFA 2021-04 No 108 (90 0-04 Base) 00:00: MCG/ACT 00 AERS TAKE 2021-04 No 50 TABLET ONCE 0-04 A DAY 00:00: (DAILY) 00 NEEDED FOR MIGRAINES PROAIR A 2021-04 No 108 (90 0-04 Base) 00:00: MCG/ACT 00 AERS TAKE 2021-04 No 50 TABLET ONCE 0-04 A DAY 00:00: (DAILY) 00 NEEDED FOR MIGRAINES PROAIR A 2021-04 No 300 108 (90 0-04 Base) 00:00: MCG/ACT 00 AERS TAKE 2021-04 No 25 TABLET ONCE 0-04 A DAY 00:00: (DAILY) 00 NEEDED FOR MIGRAINES TRAZODONE 2021-0 No 50 HYDROCHLORI 9-29 DE 50 MG 00:00: TABS 00 TRAZODONE 2021-0 No 50 HYDROCHLORI 9-29 DE 50 MG 00:00: TABS 00 TRAZODONE 2021-0 No 50 HYDROCHLORI 9-29 DE 50 MG 00:00: TABS 00 TRAZODONE 2021-0 No 50 HYDROCHLORI 9-29 DE 50 MG 00:00: TABS 00 TAKE 1 CAP 2-0 No 30 ONCE A DAY 01-10 (DAILY) FOR 00:00: DEPRESSION 00 TAKE 1 CAP 2-0 No 30 ONCE A DAY 01-10 (DAILY) FOR 00:00: DEPRESSION 00 TAKE 1 CAP 2-0 No 30 ONCE A DAY 01-10 (DAILY) FOR 00:00: DEPRESSION 00 TAKE 1 CAP 2-0 No 30 ONCE A DAY 01-10 (DAILY) FOR 00:00: DEPRESSION 00 TAKE 1 CAP 2022-0 No 30 ONCE A DAY 01-10 (DAILY) FOR 00:00: DEPRESSION 00 Dose 2021-0 No Unknown 01-09 00:00: 00 Dose 2-0 [...] Dose 2-0 No Unknown 01-07 00:00: 00 OMEPRAZOLE 2022-0 [...] 9-22 50 MG TABS 00:00: 00 SUMATRIPTAN 2-0 No 50 SUCCINATE 9-22 50 MG TABS [...] 9-20 MOUTH EVERY 00:00: DAY 00 TAKE 1/2 2-0 No TABLET BY 9-20 MOUTH 00:00: NIGHTLY 00 QUETIAPINE 2022-0 No FUMARATE ER 9-20 400 MG TB24 00:00: 00 TAKE 1 2-0 No 40 CAPSULE BY 9-20 MOUTH EVERY 00:00: DAY 00 TAKE 2022-0 No 400 0.5/HALF 9-20 TABLETS BY 00:00: MOUTH 00 NIGHTLY QUETIAPINE 2022-0 No FUMARATE ER 9-20 400 MG TB24 [...] 2022-0 No Unknown 8-31 00:00: 00 AMLODIPINE 2022-0 No BESYLATE 5 8-31 MG TABS 00:00: 00 INHALE 2 2022-0 No PUFFS BY 8-31 MOUTH TWICE 00:00: A DAY 00 (RINSE MOUTH AFTER USE) PANTOPRAZOL 2-0 No 40 E SODIUM 40 8-31 MG TBEC 00:00: 00 AMLODIPINE 2022-0 No BESYLATE 5 8-31 MG TABS 00:00: 00 INHALE 2 2022-0 No PUFFS TWICE 8- A 00:00: 00 TAKE 1 2022-0 No 400 TABLET BY 8-25 MOUTH TWICE 00:00: A DAY 00 NEEDED FOR BACK PAIN TAKE 1 2-0 No 400 TABLET BY 8-25 MOUTH TWICE 00:00: A DAY 00 NEEDED FOR BACK PAIN TAKE 1 2022-0 No 400 TABLET BY 8-25 MOUTH TWICE [...] powder 00:00: 00 Dose 2022-0 No Unknown 8 00:00: 00 docusate 2022-0 No 1mg sodium [...] 2022-0 No Unknown 11-25 00:00: 00 Dose 2-0 No Unknown 11-25 00:00: 00 TAKE 1 2-0 No 1unit CAPSULE 8-12 TWICE 00:00: DAILY. 00 &lt 2-0 No 400 11-25 00:00: 00 TAKE 1 TAB 2022-0 No 10 ONCE A DAY 8-12 (DAILY) FOR 00:00: HYPERTENSIO 00 N TAKE 1 2-0 No 5 TABLET BY 8-12 MOUTH EVERY 00:00: DAY 00 &lt 2-0 No 400 11-25 00:00: 00 TAKE 1 2022-0 No 5 TABLET BY 8-12 MOUTH EVERY 00:00: DAY 00 Miralax 17 2022-0 No gram/do gram/dose 8-12 se oral powder 00:00: 00 ProAir HFA 2-0 No 2mcg/ac 90 8-12 tuation mcg/actuati 00:00: on aerosol 00 inhaler docusate 2-0 No 1mg sodium 100 8-12 mg capsule 00:00: 00 &lt 2022-0 No 400 8 00:00: 00 TAKE 1 TAB 2022-0 No 10 ONCE A DAY 8-12 (DAILY) FOR 00:00: HYPERTENSIO 00 N TAKE 1 2-0 No 5 TABLET BY 8-12 MOUTH EVERY [...] 00:00: DAY 00 &lt 2022-0 No 400 812 00:00: 00 TAKE 1 2022-0 No 5 [...] TAB 2022-0 No 10 ONCE A DAY 811 (DAILY) FOR 00:00: ASTHMA 00 TAKE 1 2022-0 No 20 CAPSULE BY 8-11 MOUTH EVERY 00:00: DAY 00 TAKE 1 2022-0 No TABLET BY 8-11 MOUTH EVERY 00:00: DAY IN THE 00 MORNING TAKE 1 TAB 2022-0 No 10 ONCE A DAY 811 (DAILY) FOR 00:00: ASTHMA 00 TAKE 1 [...] ADHD TAKE 1 2-0 No 30 CAPSULE 8-05 EVERY DAY 00:00: AT 8AM AND 00 2 PM FOR ADD OR ADHD TAKE 1 2-0 No 30 CAPSULE 8-05 EVERY DAY 00:00: AT 8AM AND 00 2 PM FOR ADD OR ADHD TAKE 1 2-0 No 30 CAPSULE 8-05 EVERY DAY 00:00: AT 8AM AND 00 2 PM FOR ADD OR ADHD TAKE 1 2021-0 No 30 CAPSULE 8-05 EVERY DAY 00:00: AT 8AM AND 00 2 PM FOR ADD OR ADHD TAKE 1 2-0 No 30 CAPSULE 8-05 EVERY DAY 00:00: AT 8AM AND 00 2 PM FOR ADD OR ADHD TAKE 1 2-0 No 30 CAPSULE 8-05 EVERY DAY 00:00: AT 8AM AND 00 2 PM FOR ADD OR ADHD TAKE 1 2-0 No 30 CAPSULE 8-05 EVERY DAY 00:00: AT 8AM AND 00 2 PM FOR ADD OR ADHD TAKE 1 2021-0 No 30 TABLET BY 8 MOUTH TWICE 00:00: A DAY 00 TAKE 1 2-0 No 40 CAPSULE BY 8-04 MOUTH EVERY 00:00: DAY 00 Dose 2022-0 No 20 Unknown 11-17 00:00: 00 TAKE 1 2-0 No 400 CAPSULE BY 8- MOUTH TWICE 00:00: A DAY FOR 00 [...] TAKE 1 2-0 No 40 CAPSULE BY 8-04 MOUTH EVERY [...] TAKE 1 2022-0 No 40 CAPSULE BY 8- MOUTH EVERY 00:00: DAY 00 Dose 2022-0 No 20 Unknown 11-17 00:00: 00 TAKE 1 2-0 No 400 CAPSULE BY 8-04 MOUTH TWICE 00:00: A DAY FOR 00 SCIATICA PAIN &lt 2022-0 No 10 11-17 00:00: 00 Dose 2022-0 No 300 Unknown 11-17 00:00: 00 TAKE 1 2022-0 No 30 TABLET BY 11-17 MOUTH TWICE 00:00: A DAY 00 TAKE 1 2022-0 No 40 CAPSULE BY 11-17 MOUTH EVERY 00:00: DAY 00 Dose 2022-0 No 20 Unknown 11-17 00:00: 00 TAKE 1 2022-0 No 400 CAPSULE BY 11-17 MOUTH TWICE 00:00: A DAY FOR 00 SCIATICA PAIN &lt 2022-0 No 10 11-17 00:00: 00 Dose 2022-0 No 300 Unknown 11-17 00:00: 00 TAKE 1 2022-0 No 30 TABLET BY 11-17 MOUTH TWICE 00:00: A DAY 00 TAKE 1 2022-0 No 40 CAPSULE BY 11-17 MOUTH EVERY 00:00: DAY 00 Dose 2022-0 No 20 Unknown 11-17 00:00: 00 TAKE 1 2022-0 No 400 CAPSULE BY 11-17 MOUTH TWICE 00:00: A DAY FOR 00 [...] 00 TAKE 1 2022-0 No TABLET BY - MOUTH EVERY 00:00: DAY IN THE 00 MORNING TAKE 1 2022-0 No 1 TABLET BY - MOUTH THREE 00:00: TIMES [...] 00 TAKE 1 2022-0 No TABLET BY 8 MOUTH EVERY 00:00: DAY IN THE 00 MORNING TAKE 1 2-0 No 1 TABLET BY 11-15 MOUTH THREE 00:00: TIMES A DAY 00 NEEDED Dose 2022-0 No 300 Unknown 11-15 00:00: 00 &lt 2022-0 No 11-15 00:00: 00 Dose 2022-0 No 1 Unknown 11-15 00:00: 00 TAKE 1 2-0 No TABLET BY 8 MOUTH EVERY 00:00: DAY IN THE 00 MORNING TAKE 1 2-0 No 1 TABLET BY 8 MOUTH THREE 00:00: TIMES A DAY 00 NEEDED Dose 2022-0 No 300 Unknown 11-15 00:00: 00 &lt 2022-0 No 11-15 00:00: 00 Dose 2022-0 No 1 Unknown 11-15 00:00: 00 TAKE 1 2022-0 No TABLET BY 8 MOUTH EVERY 00:00: DAY IN THE 00 MORNING TAKE 1 2-0 No 1 TABLET BY 11-15 MOUTH THREE 00:00: TIMES A DAY 00 NEEDED Dose 2022-0 No 300 Unknown 11-15 00:00: 00 budesonide- 2-0 No 2mcg/ac formoterol 7- tuation HFA 160 00:00: mcg-4.5 00 mcg/actuati on aerosol inhaler cyclobenzap 2021-0 No 1mg rine 5 mg 7-31 tablet 00:00: 00 &lt 2022-0 No 300 7- 00:00: 00 budesonide- 2-0 No 2mcg/ac formoterol 7-31 tuation HFA 160 00:00: mcg-4.5 00 mcg/actuati on aerosol inhaler cyclobenzap 2021-0 No 1mg rine 5 mg 7- tablet 00:00: 00 &lt 2-0 No 300 7- 00:00: 00 budesonide- 2-0 No 2mcg/ac formoterol - tuation HFA 160 00:00: mcg-4.5 00 mcg/actuati on aerosol inhaler Dose 2-0 No Unknown 7- 00:00: 00 &lt 2-0 No 300 7- 00:00: 00 Dose 2-0 No Unknown 7- 00:00: 00 &lt 2-0 No 300 7- 00:00: 00 budesonide- 2021-0 No 2mcg/ac formoterol - tuation HFA 160 00:00: mcg-4.5 00 mcg/actuati on aerosol inhaler cyclobenzap 2021-0 No 1mg rine 5 mg - tablet 00:00: 00 &lt 2021-0 No 300 7- 00:00: 00 budesonide- 2021-0 No 2mcg/ac formoterol - tuation HFA 160 00:00: mcg-4.5 00 mcg/actuati on aerosol inhaler cyclobenzap 2021-0 No 1mg rine 5 mg - tablet 00:00: 00 &lt 2-0 No 300 7- 00:00: 00 budesonide- 2021-0 No 2mcg/ac formoterol - tuation HFA 160 00:00: mcg-4.5 00 mcg/actuati on aerosol inhaler cyclobenzap 2021-0 No 1mg rine 5 mg - tablet 00:00: 00 &lt 2-0 No 300 7- 00:00: 00 budesonide- 2-0 No 2mcg/ac formoterol - tuation HFA 160 00:00: mcg-4.5 00 mcg/actuati on aerosol inhaler cyclobenzap 2021-0 No 1mg rine 5 mg - tablet 00:00: 00 &lt 2-0 No 300 7- 00:00: 00 &lt 2022-0 No 300 7-29 00:00: 00 &lt 2-0 No 300 7-29 00:00: 00 &lt 2022-0 No 300 7- 00:00: 00 &lt 2022-0 No 300 7- 00:00: 00 &lt 2022-0 No 300 7- 00:00: 00 &lt 2022-0 No 300 7- 00:00: 00 &lt 2022-0 No 300 7- 00:00: 00 &lt 2022-0 No 300 7- 00:00: 00 &lt 2022-0 No 7- 00:00: 00 &lt 2022-0 No 10 7 00:00: 00 Dose 2022-0 No 1 Unknown 11-10 00:00: 00 TAKE 1 2022-0 No 15 TABLET BY 11-10 MOUTH THREE 00:00: TIMES A DAY 00 Dose 2022-0 No 1 Unknown 11-10 00:00: 00 &lt 2022-0 No 7 00:00: [...] Unknown 11-10 00:00: 00 &lt 2022-0 No 7- 00:00: 00 &lt 2022-0 No 10 11-10 00:00: 00 Dose 2022-0 No 1 Unknown 11-10 00:00: 00 TAKE 1 2022-0 No 15 TABLET BY - MOUTH THREE 00:00: TIMES A DAY 00 Dose 2022-0 No 1 Unknown 11-10 00:00: 00 &lt 2022-0 No 7- 00:00: 00 &lt 2022-0 No 10 11-10 00:00: 00 Dose 2022-0 No 1 Unknown 11-10 00:00: 00 TAKE 1 2022-0 No 15 TABLET BY 7-28 MOUTH THREE 00:00: TIMES A DAY 00 [...] No 400 11-08 00:00: 00 TAKE 1 2-0 No 10 TABLET BY 11-08 MOUTH EVERY 00:00: DAY 00 &lt 2022-0 No 40 11-08 00:00: 00 &lt 2022-0 No 300 11-08 00:00: 00 Dose 2022-0 No 1 Unknown 11-08 00:00: 00 &lt 2022-0 No 400 11-08 00:00: 00 &lt 2022-0 No 400 11-08 00:00: 00 TAKE 3 2021-0 No 20 CAPSULES BY 7 MOUTH EVERY 00:00: DAY 00 &lt 2022-0 No 1 11-01 00:00: 00 TAKE 1 2021-0 No 30 CAPSULE 11-01 EVERY DAY 00:00: AT 8AM AND 00 2 PM FOR ADD OR ADHD TAKE 3 2021-0 No 20 CAPSULES BY 7- MOUTH EVERY 00:00: DAY 00 &lt 2-0 No 1 11-01 00:00: 00 TAKE 1 2021-0 No 30 CAPSULE 11-01 EVERY DAY 00:00: AT 8AM AND 00 2 PM FOR ADD OR ADHD TAKE 3 2021-0 No 20 CAPSULES BY 7- MOUTH EVERY 00:00: DAY 00 &lt 2022-0 No 1 11-01 00:00: 00 TAKE 1 2021-0 No 30 CAPSULE 11-01 EVERY DAY 00:00: AT 8AM AND 00 2 PM FOR ADD OR ADHD TAKE 3 2021-0 No 20 CAPSULES BY 7-19 MOUTH EVERY 00:00: DAY 00 &lt 2022-0 No 1 11-01 00:00: 00 TAKE 1 2021-0 No 30 CAPSULE 11-01 EVERY DAY 00:00: [...] TAKE 3 2022-0 No 20 CAPSULES BY 7- MOUTH EVERY 00:00: DAY 00 &lt 2022-0 No 1 11-01 00:00: 00 TAKE 1 2022-0 No 30 CAPSULE - EVERY DAY 00:00: AT 8AM AND 00 2 PM FOR ADD OR ADHD TAKE 3 2-0 No 20 CAPSULES BY 7- MOUTH EVERY 00:00: DAY 00 &lt 2022-0 No 1 11-01 00:00: 00 TAKE 1 2022-0 No 30 CAPSULE 11-01 EVERY DAY 00:00: AT 8AM AND 00 2 PM FOR ADD OR ADHD TAKE 3 2-0 No 20 CAPSULES BY 7- MOUTH EVERY [...] ADD OR ADHD TAKE 1 2-0 No CAPSULE 6-17 EVERY DAY 00:00: AT 8AM AND 00 2 PM FOR ADD OR ADHD TAKE 1 2-0 No CAPSULE 6-17 EVERY DAY 00:00: AT 8AM AND 00 2 PM FOR ADD OR ADHD TAKE 1 2-0 No CAPSULE 6-17 EVERY DAY 00:00: AT 8AM AND 00 2 PM FOR ADD OR ADHD TAKE 1 2-0 No CAPSULE 6-17 EVERY DAY 00:00: AT 8AM AND 00 2 PM FOR ADD OR ADHD TAKE 1 2022-0 No CAPSULE 6-17 EVERY DAY 00:00: AT 8AM AND 00 2 PM FOR ADD OR ADHD TAKE 1 2-0 No CAPSULE 6-17 EVERY DAY 00:00: AT 8AM AND 00 2 PM FOR ADD OR ADHD TAKE 1 2-0 No CAPSULE 6-17 EVERY DAY 00:00: AT [...] 2022-0 No Unknown 6-10 00:00: 00 omeprazole 2-0 No 1mg 40 mg 6-10 capsule,del 00:00: [...] 1-20 300 mg 00:00: capsule 00 ibuprofen 1-1 No 1mg 600 mg 2-31 tablet 00:00: 00 cyclobenzap 2020-1 No 1mg rine 7.5 mg 2-31 tablet 00:00: 00 Dose 2020-1 No Unknown 2-31 00:00: 00 Dose 2020-1 No Unknown 2-31 00:00: 00 cyclobenzap 2020-1 No 1mg rine 7.5 mg 2-31 tablet 00:00: 00 Dose 2020-1 No Unknown 2-31 00:00: 00 Dose 2020-1 No Unknown 2-31 00:00: 00 cyclobenzap 2020-1 No 1mg rine 7.5 mg 2-31 tablet 00:00: 00 Dose 2020-1 No Unknown 2-31 00:00: 00 Dose 2020-1 No Unknown 2-31 00:00: 00 Dose 2020-1 No Unknown 2-31 00:00: 00 Dose 2020-1 No Unknown 2-31 00:00: 00 Dose 2020-1 No Unknown 2-31 00:00: 00 Dose 2020-1 No Unknown 2-31 00:00: 00 Dose 2020-1 No 50 Unknown 2-31 00:00: 00 ibuprofen 2021-1 No 1mg 600 mg [...] 7.5 mg 2-31 tablet 00:00: 00 Dose 2020-1 No Unknown 2-31 00:00: 00 ibuprofen 2020-1 No 1mg 600 [...] 2-08 300 mg 00:00: capsule 00 Dose 1-1 No Unknown 2-08 00:00: 00 Seroquel 2020-1 [...] 00:00: capsule 00 Dose 2020-1 No Unknown 2-07 00:00: [...] 2020-1 No Unknown 2-07 00:00: 00 levothyroxi 2020-04 No 1mcg ne 150 mcg 2-07 tablet 00:00: 00 Dose 2020-1 No Unknown 2-07 00:00: 00 Dose 2020-1 No Unknown 2-07 00:00: 00 Dose 2020-1 No Unknown 2-07 00:00: 00 gabapentin 2020-1 No 1mg 300 mg 2-07 capsule 00:00: 00 amlodipine 2020- No 1mg 5 mg tablet 2-07 00:00: 00 gemfibrozil 2020-1 No 1mg 600 mg 2-07 tablet 00:00: 00 Dose 2020-1 No Unknown 2-07 00:00: 00 levothyroxi 2020-04 No 1mcg ne 150 mcg 2-07 tablet 00:00: 00 Dose 2020-1 No Unknown 2-07 00:00: 00 gabapentin 2020- No 1mg 300 mg 2-07 capsule 00:00: 00 amlodipine 2020- No 1mg 5 mg tablet 2-07 00:00: 00 gemfibrozil 2020-1 No 1mg 600 mg 2-07 tablet 00:00: 00 Dose 2020-1 No Unknown 2-07 00:00: 00 levothyroxi 2020-04 [...] 2020-1 No Unknown 2-07 00:00: 00 levothyroxi 2020-04 No 1mcg ne 150 mcg 2-07 tablet 00:00: 00 Dose 2020-04 No Unknown 2-07 00:00: 00 gabapentin 2020-04 No 1mg 300 mg 2-07 capsule 00:00: 00 Dose 2020-04 No Unknown 1-12 00:00: 00 Dose 2020-04 No Unknown 1-12 00:00: 00 Dose 2020-04 No Unknown 1-12 00:00: 00 Dose 2020-04 No Unknown 1-12 00:00: 00 Dose 2020-04 No Unknown 1-12 00:00: 00 Dose 2020-04 No Unknown 1-12 00:00: 00 Dose 2020-04 No Unknown 1-12 00:00: 00 Dose 2020-04 No Unknown 1-12 00:00: 00 Dose 2020-04 No Unknown 1-12 00:00: 00 Symbicort 2020-04 No 2mcg/ac 160 mcg-4.5 1-08 tuation mcg/actuati 00:00: on HFA aerosol inhaler Dose 2020-04 No Unknown 1-08 00:00: 00 Symbicort 2020-04 No 2mcg/ac 160 mcg-4.5 1-08 tuation mcg/actuati 00:00: on HFA aerosol inhaler Dose 2020-04 No Unknown 1-08 00:00: 00 Symbicort 2020-04 No 2mcg/ac 160 mcg-4.5 1-08 tuation mcg/actuati 00:00: on HFA aerosol inhaler Dose 2020-04 No Unknown 1-08 00:00: 00 Symbicort 2020-04 No 2mcg/ac 160 mcg-4.5 1-08 tuation mcg/actuati 00:00: on HFA 00 aerosol inhaler Dose 2020-04 No Unknown 1-08 00:00: 00 Dose 2020-04 No Unknown 1-08 00:00: 00 Symbicort 2020-04 No 2mcg/ac 160 mcg-4.5 1-08 tuation mcg/actuati 00:00: on HFA 00 aerosol inhaler Dose 2020-04 No Unknown 1-08 00:00: 00 Symbicort 2020-04 No 2mcg/ac 160 mcg-4.5 1-08 tuation mcg/actuati 00:00: on HFA 00 aerosol inhaler Dose 2020- No Unknown 1-08 00:00: 00 Symbicort 2020-1 No 2mcg/ac 160 mcg-4.5 1-08 tuation mcg/actuati 00:00: on HFA 00 aerosol inhaler Dose 2020-1 No Unknown 1-08 00:00: 00 Symbicort 2020-1 No 2mcg/ac 160 mcg-4.5 1-08 tuation mcg/actuati 00:00: on HFA 00 aerosol inhaler Dose 2020- No Unknown 1-08 [...] mg 0-11 tablet 00:00: 00 Prozac 20 2020-04 No 3mg mg capsule 0-11 00:00: 00 [...] 0-11 300 mg 00:00: capsule 00 Symbicort 2020- No 2mcg/ac 160 mcg-4.5 [...] 10 mg 0-06 tablet 00:00: 00 ibuprofen 2020-04 No 1mg 600 mg 0-06 tablet 00:00: 00 Symbicort 2020-04 No 2mcg/ac 160 mcg-4.5 0-06 tuation mcg/actuati 00:00: on HFA 00 aerosol inhaler ProAir HFA 2020-04 No 2mcg/ac 90 0-06 tuation mcg/actuati 00:00: on aerosol 00 inhaler lisinopril 2020-04 No 1mg 10 mg 0-06 tablet 00:00: 00 Dose 2020- No Unknown 0-06 00:00: 00 ibuprofen 2020- No 1mg 600 mg 0-06 tablet 00:00: 00 Symbicort 2020-04 No 2mcg/ac 160 mcg-4.5 0-06 tuation mcg/actuati 00:00: on HFA 00 aerosol inhaler Dose 2020-04 No Unknown 0-06 00:00: 00 lisinopril 2020- [...] 600 mg 0-06 tablet 00:00: 00 Dose 2020- No Unknown 0-06 00:00: 00 Symbicort 2020- No 2mcg/ac 160 [...] mcg/actuati 00:00: on aerosol 00 inhaler lisinopril 2021-1 No 1mg 10 mg 0-06 tablet 00:00: 00 Singulair 2021-1 No 1mg 10 mg 0-06 tablet 00:00: 00 ibuprofen 2021-1 No 1mg 600 mg 0-06 tablet 00:00: 00 Dose 2021-0 No Unknown 9-16 00:00: 00 Dose 2021-0 No Unknown 9-16 00:00: 00 Dose 2021-0 No Unknown 9-16 00:00: 00 Dose 2021-0 No Unknown 9-16 00:00: 00 Dose 2021-0 No Unknown 9-16 00:00: 00 Dose 2021-0 No Unknown 16 [...] 16 00:00: 00 Dose 2021-0 No Unknown 9 00:00: 00 Dose 2021-0 No Unknown 12-27 00:00: 00 Dose 2021-0 No Unknown 12-27 00:00: 00 Dose 2021-0 No Unknown 9 00:00: 00 Dose 2021-0 No Unknown 12-27 00:00: 00 Dose 2021-0 No Unknown 12-27 00:00: 00 Dose 2021-0 No Unknown 12-27 00:00: 00 Dose 2021-0 No Unknown 12-27 00:00: 00 Dose 2021-0 No Unknown 12-27 00:00: 00 Dose 2021-0 No Unknown 9-13 00:00: 00 Dose 2021-0 No Unknown 9-13 00:00: 00 Dose 2021-0 No Unknown 9-13 00:00: 00 Dose 2021-0 No Unknown 9-13 00:00: 00 Dose 2021-0 No Unknown 9-13 00:00: 00 Dose 2021-0 No Unknown 9-13 00:00: 00 Dose 2021-0 No Unknown 9-13 00:00: 00 Dose 2021-0 No Unknown 9-13 00:00: 00 Dose 2021-0 No Unknown 9-13 00:00: 00 Dose 2021-0 No Unknown 9-10 [...] mg 8-06 tablet 00:00: 00 Prozac 20 1-0 No 3mg mg capsule 11-19 00:00: 00 lithium 2021-0 No 1mg carbonate 8-06 300 mg 00:00: capsule 00 Dose 2021-0 No Unknown 7-23 00:00: 00 Dose 2021-0 No Unknown 7-23 00:00: 00 Dose 1-0 No Unknown 7-23 00:00: 00 Dose 2021-0 No Unknown 7-23 00:00: 00 Dose 2021-0 No Unknown 7-23 00:00: 00 Dose 1-0 No Unknown 7-23 00:00: 00 Dose 2021-0 No Unknown 7-23 00:00: 00 Dose 2021-0 No Unknown 7-23 00:00: 00 Dose 2021-0 No Unknown 7-23 00:00: 00 Dose 2021-0 No Unknown 7-23 00:00: 00 Dose 1-0 No Unknown 7-23 00:00: 00 Dose 1-0 No Unknown 7-23 00:00: 00 Dose 2021-0 No Unknown 7-23 00:00: 00 Dose 2021-0 No Unknown 7-23 00:00: 00 Dose 1-0 No Unknown 7-23 00:00: 00 Dose 2021-0 [...] buspirone 5 1-0 No 1mg mg tablet 09-08 00:00: 00 Seroquel 2021-0 No 1mg 400 mg 5-26 tablet 00:00: 00 Prozac 20 1-0 No 3mg mg capsule 09-08 00:00: 00 lithium 2021-0 No 1mg carbonate 5-26 300 mg 00:00: capsule 00 buspirone 5 1-0 No 1mg mg tablet 09-08 00:00: 00 Seroquel 2021-0 No 1mg 400 mg 5-26 tablet 00:00: 00 Prozac 20 2020-0 No 3mg mg capsule 09-08 00:00: 00 lithium 1-0 No 1mg carbonate 5- 300 mg 00:00: capsule 00 buspirone 5 2020-0 No 1mg mg tablet 09-08 00:00: 00 Seroquel 1-0 No 1mg 400 mg - tablet 00:00: 00 Prozac 20 2020-0 No 3mg mg capsule 09-08 00:00: 00 lithium 1-0 No 1mg carbonate 5- 300 mg 00:00: capsule 00 buspirone 5 2020-0 No 1mg mg tablet 09-08 00:00: 00 Seroquel 1-0 No 1mg 400 mg - tablet 00:00: 00 Prozac 20 2020-0 No 3mg mg capsule 09-08 00:00: 00 lithium 1-0 No 1mg carbonate 5- 300 mg 00:00: capsule 00 buspirone 5 2020-0 No 1mg mg tablet 09-08 00:00: 00 Seroquel 1-0 No 1mg 400 mg - tablet 00:00: 00 Prozac 20 2020-0 No 3mg mg capsule 09-08 00:00: 00 lithium 1-0 No 1mg carbonate 5- 300 mg 00:00: capsule 00 buspirone 5 2020-0 No 1mg mg tablet 09-08 00:00: 00 Seroquel 1-0 No 1mg 400 mg - tablet 00:00: 00 buspirone 5 2020-0 No 1mg mg tablet 09-08 00:00: 00 Seroquel 1-0 No 1mg 400 mg - tablet 00:00: 00 Prozac 20 2020-0 No 3mg mg capsule 09-08 00:00: 00 lithium 1-0 No 1mg carbonate 5-26 300 mg 00:00: capsule 00 Prozac 20 2020-0 No 3mg mg capsule 09-08 00:00: 00 lithium 1-0 No 1mg carbonate 5-26 300 mg 00:00: capsule 00 buspirone 5 2020-0 No 1mg mg tablet 5-26 00:00: 00 Seroquel 2021-0 No 1mg 400 mg 5-26 tablet 00:00: 00 Prozac 20 1-0 No 3mg mg capsule 5- 00:00: 00 lithium 2021-0 No 1mg carbonate 5-26 300 mg 00:00: capsule 00 buspirone 5 1-0 No 1mg mg tablet 5- 00:00: 00 Seroquel 2021-0 No 1mg 400 mg 5-26 tablet 00:00: 00 Prozac 20 1-0 No 3mg mg capsule 5 00:00: 00 lithium 2021-0 No 1mg carbonate 5-26 300 mg 00:00: capsule 00 Seroquel 1-0 No 1mg 400 mg 5-23 tablet 00:00: 00 Prozac 20 1-0 No 3mg mg capsule 5- 00:00: 00 lithium 2021-0 No 1mg carbonate 5-23 300 mg 00:00: capsule 00 Seroquel 2021-0 No 1mg 400 mg 5-23 tablet 00:00: 00 Prozac 20 1-0 No 3mg mg capsule 5- 00:00: 00 lithium 2021-0 No 1mg carbonate 5-23 300 mg 00:00: capsule 00 Seroquel 2021-0 No 1mg 400 mg 5-23 tablet 00:00: 00 Prozac 20 1-0 No 3mg mg capsule 5- 00:00: 00 lithium 2021-0 No 1mg carbonate 5-23 300 mg 00:00: capsule 00 Seroquel 2021-0 No 1mg 400 mg 5-23 tablet 00:00: 00 Prozac 20 1-0 No 3mg mg capsule 5- 00:00: 00 lithium 2021-0 No 1mg carbonate [...] mg oral 00:00: (7) suspension 00 levothyroxi 1-0 No 1mcg ne 150 [...] 2021-0 No Unknown 5-20 00:00: 00 phenytoin 1-0 No 1(21)/7 100 mg/4 mL 5-20 5 mg oral 00:00: (7) suspension 00 phenytoin 1-0 No 1(21)/7 100 mg/4 mL 5-20 5 mg oral 00:00: (7) suspension 00 phenytoin No 1(21)/7 100 mg/4 mL 5-20 5 mg oral 00:00: (7) suspension 00 Dose No Unknown 5-20 00:00: 00 montelukast No 1mg 10 mg 5-20 tablet 00:00: 00 FLUTICASONE 2019-04 Yes [id number] SHAKE U nivers PROPIONATE 0-15 LIQUID AND ity of 50 00:00: USE 2 [place] mcg/actuati 00 SPRAYS IN Med ical on nasal EACH Branch spray NOSTRIL DAILY FLUTICASONE 2019-04 Yes [id number] SHAKE U nivers PROPIONATE 0-15 LIQUID AND ity of 50 00:00: USE 2 [place] mcg/actuati 00 SPRAYS IN Med ical on nasal EACH Branch spray NOSTRIL DAILY FLUTICASONE 2019-04 Yes [id number] SHAKE U nivers PROPIONATE 0-15 LIQUID AND ity of 50 00:00: USE 2 [place] mcg/actuati 00 SPRAYS IN Med ical on nasal EACH Branch spray NOSTRIL DAILY FLUTICASONE 2019-04 Yes [id number] SHAKE U nivers PROPIONATE 0-15 LIQUID AND ity of 50 00:00: USE 2 [place] mcg/actuati 00 SPRAYS IN Med ical on nasal EACH Branch spray NOSTRIL DAILY FLUTICASONE 2019-04 Yes [id number] SHAKE U nivers PROPIONATE 0-15 LIQUID AND ity of 50 00:00: USE 2 [place] mcg/actuati 00 SPRAYS IN Med ical on nasal EACH Branch spray NOSTRIL DAILY FLUTICASONE 2019-04 Yes [id number] SHAKE U nivers PROPIONATE 0-15 LIQUID AND ity of 50 00:00: USE 2 [place] mcg/actuati 00 SPRAYS IN Med ical on nasal EACH Branch spray NOSTRIL DAILY FLUTICASONE 2019-04 Yes [id number] SHAKE U nivers PROPIONATE 0-15 LIQUID AND ity of 50 00:00: USE 2 [place] mcg/actuati 00 SPRAYS IN Med ical on nasal EACH Branch spray NOSTRIL DAILY FLUTICASONE 2019-04 Yes [id number] SHAKE U nivers PROPIONATE 0-15 LIQUID AND ity of 50 00:00: USE 2 [place] mcg/actuati 00 SPRAYS IN Med ical on nasal EACH Branch spray NOSTRIL DAILY FLUTICASONE 2020- Yes [id number] SHAKE U nivers PROPIONATE 0-15 LIQUID AND ity of 50 00:00: USE 2 [place] mcg/actuati 00 SPRAYS IN Med ical on nasal EACH Branch spray NOSTRIL DAILY FLUTICASONE 2019-04 Yes [id number] SHAKE U nivers PROPIONATE 0-15 LIQUID AND ity of 50 00:00: USE 2 [place] mcg/actuati 00 SPRAYS IN Med ical on nasal EACH Branch spray NOSTRIL DAILY FLUTICASONE 2019-04 Yes [id number] SHAKE U nivers PROPIONATE 0-15 LIQUID AND ity of 50 00:00: USE 2 [place] mcg/actuati 00 SPRAYS IN Med ical on nasal EACH Branch spray NOSTRIL DAILY FLUTICASONE 2019-04 Yes [id number] SHAKE U nivers PROPIONATE 0-15 LIQUID AND ity of 50 00:00: USE 2 [place] mcg/actuati 00 SPRAYS IN Med ical on nasal EACH Branch spray NOSTRIL DAILY FLUTICASONE 2019-04 Yes [id number] SHAKE U nivers PROPIONATE 0-15 LIQUID AND ity of 50 00:00: USE 2 [place] mcg/actuati 00 SPRAYS IN Med ical on nasal EACH Branch spray NOSTRIL DAILY FLUTICASONE 2019-04 Yes [id number] SHAKE U nivers PROPIONATE 0-15 LIQUID AND ity of 50 00:00: USE 2 [place] mcg/actuati 00 SPRAYS IN Med ical on nasal EACH Branch spray NOSTRIL DAILY FLUTICASONE 2019- Yes [id number] SHAKE U nivers PROPIONATE 0-15 LIQUID AND ity of 50 00:00: USE 2 [place] mcg/actuati 00 SPRAYS IN Med ical on nasal EACH Branch spray NOSTRIL DAILY FLUTICASONE 2019-04 Yes [id number] SHAKE U nivers PROPIONATE 0-15 LIQUID AND ity of 50 00:00: USE 2 [place] mcg/actuati 00 SPRAYS IN Med ical on nasal EACH Branch spray NOSTRIL DAILY FLUTICASONE 2019- Yes [id number] SHAKE U nivers PROPIONATE 0-15 LIQUID AND ity of 50 00:00: USE 2 [place] mcg/actuati 00 SPRAYS IN Med ical on nasal EACH Branch spray NOSTRIL DAILY FLUTICASONE 2019-04 Yes [id number] SHAKE U nivers PROPIONATE 0-15 LIQUID AND ity of 50 00:00: USE 2 [place] mcg/actuati 00 SPRAYS IN Med ical on nasal EACH Branch spray NOSTRIL DAILY FLUTICASONE 2019-04 Yes [id number] SHAKE U nivers PROPIONATE 0-15 LIQUID AND ity of 50 00:00: USE 2 [place] mcg/actuati 00 SPRAYS IN Med ical on nasal EACH Branch spray NOSTRIL DAILY FLUTICASONE 2019-04 Yes [id number] SHAKE U nivers PROPIONATE 0-15 LIQUID AND ity of 50 00:00: USE 2 [place] mcg/actuati 00 SPRAYS IN Med ical on nasal EACH Branch spray NOSTRIL DAILY FLUTICASONE 2019-04 Yes [id number] SHAKE U nivers PROPIONATE 0-15 LIQUID AND ity of 50 00:00: USE 2 [place] mcg/actuati 00 SPRAYS IN Med ical on nasal EACH Branch spray NOSTRIL DAILY doxycycline 2019-0 Yes [id number] 100mg Take 1 [facility] monohydrate 8-20 capsule by it y of 100 mg 00:00: mouth 2 [place] capsule 00 (two) Medical times Branch daily. doxycycline 2020-0 Yes [id number] 100mg Take 1 [facility] monohydrate 8-20 capsule by it y of 100 mg 00:00: mouth 2 [place] capsule 00 (two) Medical times Branch daily. doxycycline 2020-0 Yes [id number] 100mg Take 1 [facility] monohydrate 8-20 capsule by it y of 100 mg 00:00: mouth 2 [place] capsule 00 (two) Medical times Branch daily. doxycycline 2020-0 Yes [id number] 100mg Take 1 [facility] monohydrate 8-20 capsule by it y of 100 mg 00:00: mouth 2 [place] capsule 00 (two) Medical times Branch daily. doxycycline 2020-0 Yes [id number] 100mg Take 1 [facility] monohydrate 8-20 capsule by it y of 100 mg 00:00: mouth 2 [place] capsule 00 (two) Medical times Branch daily. doxycycline 2020-0 Yes [id number] 100mg Take 1 [facility] monohydrate 8-20 capsule by it y of 100 mg 00:00: mouth 2 [place] capsule 00 (two) Medical times Branch daily. doxycycline 2020-0 Yes [id number] 100mg Take 1 [facility] monohydrate 8-20 capsule by it y of 100 mg 00:00: mouth 2 [place] capsule 00 (two) Medical times Branch daily. doxycycline 2020-0 Yes [id number] 100mg Take 1 [facility] monohydrate 8-20 capsule by it y of 100 mg 00:00: mouth 2 [place] capsule 00 (two) Medical times Branch daily. doxycycline 2020-0 Yes [id number] 100mg Take 1 [facility] monohydrate 8-20 capsule by it y of 100 mg 00:00: mouth 2 [place] capsule 00 (two) Medical times Branch daily. doxycycline 2020-0 Yes [id number] 100mg Take 1 [facility] monohydrate 8-20 capsule by it y of 100 mg 00:00: mouth 2 [place] capsule 00 (two) Medical times Branch daily. doxycycline 2022- No [id number] 100mg Take 1 [facility] monohydrate 8-20 01-10 capsule by i ty of 100 mg 00:00: 00:00 mouth 2 [place] capsule 00 :00 (two) Medical times Branch daily. doxycycline 2019-2022- No [id number] 100mg Take 1 [facility] monohydrate 8-20 01-10 capsule by i ty of 100 mg 00:00: 00:00 mouth 2 [place] capsule 00 :00 (two) Medical times Branch daily. doxycycline 2019-0 2022- No [id number] 100mg Take 1 [facility] monohydrate 8-20 01-10 capsule by i ty of 100 mg 00:00: 00:00 mouth 2 [place] capsule 00 :00 (two) Medical times Branch daily. doxycycline 2019-0 2022- No [id number] 100mg Take 1 [facility] monohydrate 8-20 01-10 capsule by i ty of 100 mg 00:00: 00:00 mouth 2 [place] capsule 00 :00 (two) Medical times Branch daily. doxycycline 2019-2022- No [id number] 100mg Take 1 [facility] monohydrate 8-20 01-10 capsule by i ty of 100 mg 00:00: 00:00 mouth 2 [place] capsule 00 :00 (two) Medical times Branch daily. doxycycline 2019-3- No [id number] 100mg Take 1 [facility] monohydrate 8-20 01-10 capsule by i ty of 100 mg 00:00: 00:00 mouth 2 [place] capsule 00 :00 (two) Medical times Branch daily. pantoprazol 2019-0 Yes [id number] 40mg Take 1 [facility] e 40 mg EC 8-18 tablet by ity of tablet 00:00: mouth once [place] 00 daily as Medical needed for Branch Indigestio n. LORazepam 1 2019-0 Yes [id number] 1mg Take 1 [facility] mg tablet 8-18 tablet by ity o f 00:00: mouth once [place] 00 daily as Medical needed for Branch Anxiety or Agitation. pantoprazol 2020-0 Yes [id number] 40mg Take 1 [facility] e 40 mg EC 8-18 tablet by ity of tablet 00:00: mouth once [place] 00 daily as Medical needed for Branch Indigestio n. LORazepam 1 2019-0 Yes [id number] 1mg Take 1 [facility] mg tablet 8-18 tablet by ity o f 00:00: mouth once [place] 00 daily as Medical needed for Branch Anxiety or Agitation. pantoprazol 2019-0 Yes [id number] 40mg Take 1 [facility] e 40 mg EC 8-18 tablet by ity of tablet 00:00: mouth once [place] 00 daily as Medical needed for Branch Indigestio n. LORazepam 1 2019-0 Yes [id number] 1mg Take 1 [facility] mg tablet 8-18 tablet by ity o f 00:00: mouth once [place] 00 daily as Medical needed for Branch Anxiety or Agitation. pantoprazol 2019-0 Yes [id number] 40mg Take 1 [facility] e 40 mg EC 8-18 tablet by ity of tablet 00:00: mouth once [place] 00 daily as Medical needed for Branch Indigestio n. LORazepam 1 2019-0 Yes [id number] 1mg Take 1 [facility] mg tablet 8-18 tablet by ity o f 00:00: mouth once [place] 00 daily as Medical needed for Branch Anxiety or Agitation. pantoprazol 2019-0 Yes [id number] 40mg Take 1 [facility] e 40 mg EC 8-18 tablet by ity of tablet 00:00: mouth once [place] 00 daily as Medical needed for Branch Indigestio n. LORazepam 1 2019-0 Yes [id number] 1mg Take 1 [facility] mg tablet 8-18 tablet by ity o f 00:00: mouth once [place] 00 daily as Medical needed for Branch Anxiety or Agitation. pantoprazol 2019-0 Yes [id number] 40mg Take 1 [facility] e 40 mg EC 8-18 tablet by ity of tablet 00:00: mouth once [place] 00 daily as Medical needed for Branch Indigestio n. LORazepam 1 2019-0 Yes [id number] 1mg Take 1 [facility] mg tablet 8-18 tablet by ity o f 00:00: mouth once [place] 00 daily as Medical needed for Branch Anxiety or Agitation. pantoprazol 2020-0 Yes [id number] 40mg Take 1 [facility] e 40 mg EC 8-18 tablet by ity of tablet 00:00: mouth once [place] 00 daily as Medical needed for Branch Indigestio n. LORazepam 1 2019-0 Yes [id number] 1mg Take 1 [facility] mg tablet 8-18 tablet by ity o f 00:00: mouth once [place] 00 daily as Medical needed for Branch Anxiety or Agitation. pantoprazol 2020-0 Yes [id number] 40mg Take 1 [facility] e 40 mg EC 8-18 tablet by ity of tablet 00:00: mouth once [place] 00 daily as Medical needed for Branch Indigestio n. LORazepam 1 2019-0 Yes [id number] 1mg Take 1 [facility] mg tablet 8-18 tablet by ity o f 00:00: mouth once [place] 00 daily as Medical needed for Branch Anxiety or Agitation. pantoprazol 2019-0 Yes [id number] 40mg Take 1 [facility] e 40 mg EC 8-18 tablet by ity of tablet 00:00: mouth once [place] 00 daily as Medical needed for Branch Indigestio n. LORazepam 1 2019-0 Yes [id number] 1mg Take 1 [facility] mg tablet 8-18 tablet by ity o f 00:00: mouth once [place] 00 daily as Medical needed for Branch Anxiety or Agitation. pantoprazol 2020-0 Yes [id number] 40mg Take 1 [facility] e 40 mg EC 8-18 tablet by ity of tablet 00:00: mouth once [place] 00 daily as Medical needed for Branch Indigestio n. LORazepam 1 2019-0 Yes [id number] 1mg Take 1 [facility] mg tablet 8-18 tablet by ity o f 00:00: mouth once [place] 00 daily as Medical needed for Branch Anxiety or Agitation. pantoprazol 2020-0 Yes [id number] 40mg Take 1 [facility] e 40 mg EC 8-18 tablet by ity of tablet 00:00: mouth once [place] 00 daily as Medical needed for Branch Indigestio n. LORazepam 1 2019-0 Yes [id number] 1mg Take 1 [facility] mg tablet 8-18 tablet by ity o f 00:00: mouth once [place] 00 daily as Medical needed for Branch Anxiety or Agitation. pantoprazol Yes [id number] 40mg Take 1 [facility] e 40 mg EC 8-18 tablet by ity of tablet 00:00: mouth once [place] 00 daily as Medical needed for Branch Indigestio n. LORazepam 1 Yes [id number] 1mg Take 1 [facility] mg tablet 8-18 tablet by ity o f 00:00: mouth once [place] 00 daily as Medical needed for Branch Anxiety or Agitation. pantoprazol Yes [id number] 40mg Take 1 [facility] e 40 mg EC 8-18 tablet by ity of tablet 00:00: mouth once [place] 00 daily as Medical needed for Branch Indigestio n. LORazepam 1 Yes [id number] 1mg Take 1 [facility] mg tablet 8-18 tablet by ity o f 00:00: mouth once [place] 00 daily as Medical needed for Branch Anxiety or Agitation. pantoprazol No [id number] 40mg Take 1 [facility] e 40 mg EC 8-18 -10 tablet by ity of tablet 00:00: 00:00 mouth [place] 00 :00 daily as Medical needed for Branch Indigestio n. LORazepam 1 2022- No [id number] 1mg Take 1 [facility] mg tablet 804-25 tablet by ity of 00:00: 00:00 mouth once [place] 00 :00 daily as Medical needed for Branch Anxiety or Agitation. pantoprazol No [id number] 40mg Take 1 [facility] e 40 mg EC 8-18 10 tablet by ity of tablet 00:00: 00:00 mouth [place] 00 :00 daily as Medical needed for Branch Indigestio n. LORazepam 1 2022- No [id number] 1mg Take 1 [facility] mg tablet 8-18 -10 tablet by ity of 00:00: 00:00 mouth once [place] 00 :00 daily as Medical needed for Branch Anxiety or Agitation. pantoprazol 2022- No [id number] 40mg Take 1 [facility] e 40 mg EC 8-18 -10 tablet by ity of tablet 00:00: 00:00 mouth once [place] 00 :00 daily as Medical needed for Branch Indigestio n. LORazepam 1 2022- No [id number] 1mg Take 1 [facility] mg tablet 8-18 04-25 tablet by ity of 00:00: 00:00 mouth once [place] 00 :00 daily as Medical needed for Branch Anxiety or Agitation. pantoprazol No [id number] 40mg Take 1 [facility] e 40 mg EC 12-0110 tablet by ity of tablet 00:00: 00:00 mouth [place] 00 :00 daily as Medical needed for Branch Indigestio n. LORazepam 1 No [id number] 1mg Take 1 [facility] mg tablet 12-0110 tablet by ity of 00:00: 00:00 mouth once [place] 00 :00 daily as Medical needed for Branch Anxiety or Agitation. pantoprazol No [id number] 40mg Take 1 [facility] e 40 mg EC 12-01 tablet by ity of tablet 00:00: 00:00 mouth [place] 00 :00 daily as Medical needed for Branch Indigestio n. LORazepam 1 No [id number] 1mg Take 1 [facility] mg tablet 12-01 tablet by ity of 00:00: 00:00 mouth once [place] 00 :00 daily as Medical needed for Branch Anxiety or Agitation. pantoprazol No [id number] 40mg Take 1 [facility] e 40 mg EC 12-01 tablet by ity of tablet 00:00: 00:00 mouth once [place] 00 :00 daily as Medical needed for Branch Indigestio n. LORazepam 1 No [id number] 1mg Take 1 [facility] mg tablet 12-01 tablet by ity of 00:00: 00:00 mouth once [place] 00 :00 daily as Medical needed for Branch Anxiety or Agitation. doxycycline 2019- No [id number] 100mg Take 1 [facility] hyclate 100 12-01- capsule by i ty of mg capsule 00:00: 04:59 mouth [place] 00 :00 every 12 Medical (twelve) Branch hours for 14 days. doxycycline 2019- No [id number] 100mg Take 1 [facility] hyclate 100 12-01- capsule by i ty of mg capsule 00:00: 04:59 mouth [place] 00 :00 every 12 Medical (twelve) Branch hours for 14 days. doxycycline 2020-0 2020- No [id number] 100mg Take 1 [facility] hyclate 100 818 09-02 capsule by i ty of mg capsule 00:00: 04:59 mouth [place] 00 :00 every 12 Medical (twelve) Branch hours for 14 days. doxycycline 2020-0 2020- No [id number] 100mg Take 1 [facility] hyclate 100 818 08-20 capsule by i ty of mg capsule 00:00: 00:00 mouth [place] 00 :00 every 12 Medical (twelve) Branch hours for 14 days. FLUoxetine 2020-0 Yes 60mg Take 60 mg U nivers 60 mg 7-23 by mouth ity of tablet 00:00: daily. [address] FLUoxetine 2020-0 Yes 60mg Take 60 mg U nivers 60 mg 7-23 by mouth ity of tablet 00:00: daily. [address] FLUoxetine 2020-0 Yes 60mg Take 60 mg U nivers 60 mg 7-23 by mouth ity of tablet 00:00: daily. [address] FLUoxetine 2020-0 Yes 60mg Take 60 mg U nivers 60 mg 7-23 by mouth ity of tablet 00:00: daily. [address] FLUoxetine 2020-0 Yes 60mg Take 60 mg U nivers 60 mg 7-23 by mouth ity of tablet 00:00: daily. [address] FLUoxetine 2020-0 Yes 60mg Take 60 mg U nivers 60 mg 7-23 by mouth ity of tablet 00:00: daily. [address] FLUoxetine 2020-0 Yes 60mg Take 60 mg U nivers 60 mg 7-23 by mouth ity of tablet 00:00: daily. [address] FLUoxetine 2020-0 Yes 60mg Take 60 mg U nivers 60 mg 7-23 by mouth ity of tablet 00:00: daily. [address] FLUoxetine 2020-0 Yes 60mg Take 60 mg U nivers 60 mg 7-23 by mouth ity of tablet 00:00: daily. [address] FLUoxetine 2020-0 Yes 60mg Take 60 mg U nivers 60 mg 7-23 by mouth ity of tablet 00:00: daily. [address] FLUoxetine 2020-0 Yes 60mg Take 60 mg U nivers 60 mg 7-23 by mouth ity of tablet 00:00: daily. [address] FLUoxetine 2020-0 Yes 60mg Take 60 mg U nivers 60 mg 7-23 by mouth ity of tablet 00:00: daily. [address] FLUoxetine 2020-0 Yes 60mg Take 60 mg U nivers 60 mg 7-23 by mouth ity of tablet 00:00: daily. [place] [facility] FLUoxetine 2020-0 Yes 60mg Take 60 mg U nivers 60 mg 7-23 by mouth ity of tablet 00:00: daily. [place] [facility] FLUoxetine 2020-0 Yes 60mg Take 60 mg U nivers 60 mg 7-23 by mouth ity of tablet 00:00: daily. [place] [facility] FLUoxetine 2020-0 Yes 60mg Take 60 mg U nivers 60 mg 7-23 by mouth ity of tablet 00:00: daily. [address] FLUoxetine 2020-0 Yes 60mg Take 60 mg U nivers 60 mg 7-23 by mouth ity of tablet 00:00: daily. [address] FLUoxetine 2020-0 Yes 60mg Take 60 mg U nivers 60 mg 7-23 by mouth ity of tablet 00:00: daily. [address] FLUoxetine 2020-0 Yes 60mg Take 60 mg U nivers 60 mg 7-23 by mouth ity of tablet 00:00: daily. [address] FLUoxetine 2020-0 Yes 60mg Take 60 mg U nivers 60 mg 7-23 by mouth ity of tablet 00:00: daily. [address] FLUoxetine 2020-0 Yes 60mg Take 60 mg U nivers 60 mg 7-23 by mouth ity of tablet 00:00: daily. [address] FLUoxetine 2020-0 Yes 60mg Take 60 mg U nivers 60 mg 7-23 by mouth ity of tablet 00:00: daily. [address] FLUoxetine 2020-0 Yes 60mg Take 60 mg U nivers 60 mg 7-23 by mouth ity of tablet 00:00: daily. [address] FLUoxetine 2020-0 Yes 60mg Take 60 mg U nivers 60 mg 7-23 by mouth ity of tablet 00:00: daily. [address] FLUoxetine 2020-0 Yes 60mg Take 60 mg U nivers 60 mg 7-23 by mouth ity of tablet 00:00: daily. [address] FLUoxetine 2020-0 Yes 60mg Take 60 mg U nivers 60 mg 7-23 by mouth ity of tablet 00:00: daily. [address] FLUoxetine 2020-0 Yes 60mg Take 60 mg U nivers 60 mg 7-23 by mouth ity of tablet 00:00: daily. [place] [facility] FLUoxetine 2020-0 Yes 60mg Take 60 mg U nivers 60 mg 7-23 by mouth ity of tablet 00:00: daily. [place] [facility] FLUoxetine 2020-0 Yes 60mg Take 60 mg U nivers 60 mg 7-23 by mouth ity of tablet 00:00: daily. [place] [facility] FLUoxetine 2020-0 Yes 60mg Take 60 mg U nivers 60 mg 7-23 by mouth ity of tablet 00:00: daily. [place] [facility] QUEtiapine 2020-0 Yes 200mg Take 200 Un maria [place] 200 mg 7-21 mg by ity of tablet 00:00: mouth at [place] [address] bedtime. Medical Branch QUEtiapine 2020-0 Yes 200mg Take 200 [facility] [place] 200 mg 7-21 mg by ity of tablet 00:00: mouth at [place] [address] bedtime. Medical Branch QUEtiapine 2020-0 Yes 200mg Take 200 [facility] [place] 200 mg 7-21 mg by ity of tablet 00:00: mouth at [place] [address] bedtime. Medical Branch QUEtiapine 2020-0 Yes 200mg Take 200 [facility] [place] 200 mg 7-21 mg by ity of tablet 00:00: mouth at [place] [address] bedtime. Medical Branch QUEtiapine 2020-0 Yes 200mg Take 200 [facility] [place] [place] 200 mg 7-21 mg by ity of tablet 00:00: mouth at [place] [address] bedtime. Medical Branch QUEtiapine 2020-0 Yes 200mg Take 200 [facility] [place] 200 mg 7-21 mg by ity of tablet 00:00: mouth at [place] [address] bedtime. Medical Branch QUEtiapine 2020-0 Yes 200mg Take 200 [facility] [place] [place] 200 mg 7-21 mg by ity of tablet 00:00: mouth at [place] [address] bedtime. Medical Branch QUEtiapine 2020-0 Yes 200mg Take 200 Un maria isabel 200 mg 7-21 mg by ity of tablet 00:00: mouth at [place] [address] bedtime. Medical Branch QUEtiapine 2020-0 Yes 200mg Take 200 [facility] [place]abel 200 mg 7-21 mg by ity of tablet 00:00: mouth at [place] [address] bedtime. Medical Branch QUEtiapine 2020-0 Yes 200mg Take 200 [facility] [place] 200 mg 7-21 mg by ity of tablet 00:00: mouth at [place] [address] bedtime. Medical Branch QUEtiapine 2020-0 Yes 200mg Take 200 [facility] [place] 200 mg 7-21 mg by ity of tablet 00:00: mouth at [place] [address] bedtime. Medical Branch QUEtiapine 2020-0 Yes 200mg Take 200 [facility] [place] 200 mg 7-21 mg by ity of tablet 00:00: mouth at [place] [address] bedtime. Medical Branch QUEtiapine 2020-0 Yes 200mg Take 200 [facility] [place] 200 mg 7-21 mg by ity of tablet 00:00: mouth at [place] [address] bedtime. Medical Branch QUEtiapine 2020-0 3- No 200mg Take 200 [facility] n[facility] 200 mg 7-21 01-10 mg by ity of tablet 00:00: 00:00 mouth at [place] 00 :00 bedtime. Medical Branch QUEtiapine 2019-0 3- No 200mg Take 200 [facility] nivers 200 mg 7-21 01-10 mg by ity of tablet 00:00: 00:00 mouth at [place] 00 :00 bedtime. Medical Branch QUEtiapine 2019-0 3- No 200mg Take 200 [facility] nivers 200 mg 7-21 01-10 mg by ity of tablet 00:00: 00:00 mouth at [place] 00 :00 bedtime. Medical Branch QUEtiapine 2019-0 3- No 200mg Take 200 [facility] nivers 200 mg 7-21 01-10 mg by ity of tablet 00:00: 00:00 mouth at [place] 00 :00 bedtime. Medical Branch QUEtiapine 2019-0 3- No 200mg Take 200 [facility] nivers 200 mg 7-21 01-10 mg by ity of tablet 00:00: 00:00 mouth at [place] 00 :00 bedtime. Medical Branch QUEtiapine 2020-0 2023- No 200mg Take 200 [facility] nivers 200 mg 7-21 01-10 mg by ity of tablet 00:00: 00:00 mouth at [place] 00 :00 bedtime. Medical Branch pantoprazol 2020-0 Yes [id number] 40mg Take 1 [facility] 40 mg EC 6-23 tablet by ity of tablet 00:00: mouth once [place] 00 daily as Medical needed for Branch Indigestio n. pantoprazol 2020-0 Yes [id number] 40mg Take 1 [facility] e 40 mg EC 6-23 tablet by ity of tablet 00:00: mouth once [place] 00 daily as Medical needed for Branch Indigestio n. pantoprazol 2019-0 Yes [id number] 40mg Take 1 [facility] e 40 mg EC 6-23 tablet by ity of tablet 00:00: mouth once [place] 00 daily as Medical needed for Branch Indigestio n. pantoprazol 2019-0 2020- No [id number] 40mg Take 1 [facility] e 40 mg EC 6-23 08-18 tablet by it[facility] tablet 00:00: 00:00 mouth [place] 00 :00 daily as Medical needed for Branch Indigestio n. pantoprazol 2019-0 2020- No [id number] 40mg Take 1 [facility] e 40 mg EC 6-23 08-18 tablet by it[facility] of tablet 00:00: 00:00 mouth once [place] 00 :00 daily as Medical needed for Branch Indigestio n. fluticasone 2019-0 Yes [id number] 2{spray Use 2 [facility] propionate 6-16 } Sprays in ity of (FLONASE 00:00: each [place] ALLERGY 00 nostril Medical RELIEF) 50 daily. Branch mcg/actuati on nasal spray LORazepam 1 2019-0 Yes [id number] 1mg Take 1 [facility] mg tablet 6-16 tablet by ity o f 00:00: mouth once [place] 00 daily as Medical needed for Branch Anxiety or Agitation. fluticasone 2020-0 Yes [id number] 2{spray Use 2 [facility] propionate 6-16 } Sprays in ity of (FLONASE 00:00: each [place] ALLERGY 00 nostril Medical RELIEF) 50 daily. Branch mcg/actuati on nasal spray LORazepam 1 2019-0 Yes [id number] 1mg Take 1 [facility] mg tablet 6-16 tablet by ity o f 00:00: mouth once [place] 00 daily as Medical needed for Branch Anxiety or Agitation. fluticasone 2020-0 Yes [id number] 2{spray Use 2 [facility] propionate 6-16 } Sprays in ity of (FLONASE 00:00: each [place] ALLERGY 00 nostril Medical RELIEF) 50 daily. Branch mcg/actuati on nasal spray LORazepam 1 2019-0 Yes [id number] 1mg Take 1 [facility] mg tablet 6-16 tablet by ity o f 00:00: mouth once [place] 00 daily as Medical needed for Branch Anxiety or Agitation. fluticasone 2020-0 Yes [id number] 2{spray Use 2 [facility] propionate 6-16 } Sprays in ity of (FLONASE 00:00: each [place] ALLERGY 00 nostril Medical RELIEF) 50 daily. Branch mcg/actuati on nasal spray LORazepam 1 2019-0 Yes [id number] 1mg Take 1 [facility] mg tablet 6-16 tablet by ity o f 00:00: mouth once [place] 00 daily as Medical needed for Branch Anxiety or Agitation. fluticasone 2020-0 Yes [id number] 2{spray Use 2 [facility] propionate 6-16 } Sprays in ity of (FLONASE 00:00: each [place] ALLERGY 00 nostril Medical RELIEF) 50 daily. Branch mcg/actuati on nasal spray fluticasone 2020-0 Yes [id number] 2{spray Use 2 [facility] propionate 6-16 } Sprays in ity of (FLONASE 00:00: each [place] ALLERGY 00 nostril Medical RELIEF) 50 daily. Branch mcg/actuati on nasal spray fluticasone 2020-0 Yes [id number] 2{spray Use 2 [facility] propionate 6-16 } Sprays in ity of (FLONASE 00:00: each [place] ALLERGY 00 nostril Medical RELIEF) 50 daily. Branch mcg/actuati on nasal spray fluticasone 2020-0 Yes [id number] 2{spray Use 2 [facility] propionate 6-16 } Sprays in ity of (FLONASE 00:00: each [place] ALLERGY 00 nostril Medical RELIEF) 50 daily. Branch mcg/actuati on nasal spray fluticasone 2020-0 Yes [id number] 2{spray Use 2 [facility] propionate 6-16 } Sprays in ity of (FLONASE 00:00: each [place] ALLERGY 00 nostril Medical RELIEF) 50 daily. Branch mcg/actuati on nasal spray fluticasone 2020-0 Yes [id number] 2{spray Use 2 [facility] propionate 6-16 } Sprays in ity of (FLONASE 00:00: each [place] ALLERGY 00 nostril Medical RELIEF) 50 daily. Branch mcg/actuati on nasal spray fluticasone 2020-0 Yes [id number] 2{spray Use 2 [facility] propionate 6-16 } Sprays in ity of (FLONASE 00:00: each [place] ALLERGY 00 nostril Medical RELIEF) 50 daily. Branch mcg/actuati on nasal spray fluticasone 2020-0 Yes [id number] 2{spray Use 2 [facility] propionate 6-16 } Sprays in ity of (FLONASE 00:00: each [place] ALLERGY 00 nostril Medical RELIEF) 50 daily. Branch mcg/actuati on nasal spray fluticasone 2020-0 Yes [id number] 2{spray Use 2 [facility] propionate 6-16 } Sprays in ity of (FLONASE 00:00: each [place] ALLERGY 00 nostril Medical RELIEF) 50 daily. Branch mcg/actuati on nasal spray fluticasone 2020-0 2020- No [id number] 2{spray Use 2 [facility] propionate 6-16 10-15 } Sprays in ity of (FLONASE 00:00: 00:00 each [place] ALLERGY 00 :00 nostril Medical RELIEF) 50 daily. Branch mcg/actuati on nasal spray LORazepam 1 2019-0 2020- No [id number] 1mg Take 1 [facility] mg tablet 6-16 08-18 tablet by ity of 00:00: 00:00 mouth once [place] 00 :00 daily as Medical needed for Branch Anxiety or Agitation. LORazepam 1 2019- 2020- No [id number] 1mg Take 1 [facility] mg tablet 6-16 [...] (two) Medical times Branch daily. lithium 2020-0 2022- No 100mg Take 100 [facility] ers carbonate 6-14 01-10 mg by ity of 300 mg 00:00: 00:00 mouth 2 [place] tablet 00 :00 (two) Medical times Branch daily. lithium 2020-0 2022- No 100mg Take 100 [facility] ers carbonate 6-14 01-10 mg by ity of 300 mg 00:00: 00:00 mouth 2 [place] tablet 00 :00 (two) Medical times Branch daily. FLUoxetine 2020-0 Yes [id number] 60mg Take 3 [facility] 20 mg 6-11 capsules ity of capsule 00:00: by mouth [place] 00 daily. Medical Branch FLUoxetine 2020-0 Yes [id number] 60mg Take 3 [facility]ivers 20 mg 6-11 capsules ity of capsule 00:00: by mouth [place] 00 daily. Medical Branch FLUoxetine 2020-0 Yes [id number] 60mg Take 3 [facility]ivers 20 mg 6-11 capsules ity of capsule 00:00: by mouth [place] 00 daily. Medical Branch FLUoxetine 2020-0 Yes [id number] 60mg Take 3 [facility] 20 mg 6-11 capsules ity of capsule 00:00: by mouth [place] 00 daily. Medical Branch FLUoxetine 2020-0 Yes [id number] 60mg Take 3 [facility]ivers 20 mg 6-11 capsules ity of capsule 00:00: by mouth [place] 00 daily. Medical Branch FLUoxetine 2020-0 2020- No [id number] 60mg Take 3 [facility] 20 mg 6-11 08-18 capsules ity of capsule 00:00: 00:00 by mouth [place] 00 :00 daily. Medical Branch FLUoxetine 2020-0 2020- No [id number] 60mg Take 3 [facility] 20 mg 6-11 08-18 capsules ity of capsule 00:00: 00:00 by mouth [place] 00 :00 daily. Medical Branch pantoprazol 2019-0 Yes [id number] 40mg Take 1 [facility] e 40 mg EC 5-21 tablet by ity of tablet 00:00: mouth once [place] 00 daily as Medical needed for Branch Indigestio n. pantoprazol 2020-0 Yes [id number] 40mg Take 1 [facility] e 40 mg EC 5-21 tablet by ity of tablet 00:00: mouth once [place] 00 daily as Medical needed for Branch Indigestio n. pantoprazol 2019-0 Yes [id number] 40mg Take 1 [facility] e 40 mg EC 5-21 tablet by ity of tablet 00:00: mouth once [place] 00 daily as Medical needed for Branch Indigestio n. pantoprazol 2019-0 2020- No [id number] 40mg Take 1 [facility] e 40 mg EC 5-21 06-23 tablet by ity of tablet 00:00: 00:00 mouth once [place] 00 :00 daily as Medical needed for Branch Indigestio n. cariprazine 0 2020- No 10mg Take 10 mg [facility] HCl 5-19 05-19 by mouth ity of (VRAYLAR 16:24: 00:00 at [place] ORAL) 07 :00 bedtime. Medical Branch phenytoin 2020-0 Yes [id number] 400mg Take 4 [facility] nivers Extended 5-19 capsules ity of (DILANTIN) 00:00: by mouth [place] 100 mg 00 daily. Medical capsule Branch levothyroxi 2019-0 Yes [id number] 150ug Take 1 [facility] ne 150 mcg 5-19 tablet by ity of tablet 00:00: mouth [place] 00 every Medical morning. Branch cholestyram 2019-0 Yes [id number] 2g Take 0.5 [facility] ine 4 gram 5-19 Packets by ity of powder 00:00: mouth 3 (three) Medical times Branch daily with meals. phenytoin 2019-0 Yes [id number] 400mg Take 4 [facility] nivers Extended 5-19 capsules ity of (DILANTIN) 00:00: by mouth [place] 100 mg 00 daily. Medical capsule Branch levothyroxi 2019-0 Yes [id number] 150ug Take 1 [facility] ne 150 mcg 5-19 tablet by ity of tablet 00:00: mouth [place] 00 every Medical morning. Branch cholestyram 2019-0 Yes [id number] 2g Take 0.5 [facility] ine 4 gram 5-19 Packets by ity of powder 00:00: mouth 3 (three) Medical times Branch daily with meals. phenytoin 2020-0 Yes [id number] 400mg Take 4 [facility] nivers Extended 5-19 capsules ity of (DILANTIN) 00:00: by mouth [place] 100 mg 00 daily. Medical capsule Branch levothyroxi 2019-0 Yes [id number] 150ug Take 1 [facility] ne 150 mcg 5-19 tablet by ity of tablet 00:00: mouth [place] 00 every Medical morning. Branch cholestyram 2019-0 Yes [id number] 2g Take 0.5 [facility] ine 4 gram 5-19 Packets by ity of powder 00:00: mouth 3 (three) Medical times Branch daily with meals. phenytoin 2020-0 Yes [id number] 400mg Take 4 [facility] nivers Extended 5-19 capsules ity of (DILANTIN) 00:00: by mouth [place] 100 mg 00 daily. Medical capsule Branch levothyroxi 2020-0 Yes [id number] 150ug Take 1 [facility] ne 150 mcg 5-19 tablet by ity of tablet 00:00: mouth every Medical morning. Branch cholestyram 2020-0 Yes [id number] 2g Take 0.5 [facility] ine 4 gram 5-19 Packets by ity of powder 00:00: mouth (three) Medical times Branch daily with meals. phenytoin 2020-0 Yes [id number] 400mg Take 4 [facility] nivers Extended 5-19 capsules ity of (DILANTIN) 00:00: by mouth [place] 100 mg 00 daily. Medical capsule Branch levothyroxi 2019-0 Yes [id number] 150ug Take 1 [facility] ne 150 mcg 5-19 tablet by ity of tablet 00:00: mouth every Medical morning. Branch cholestyram 2020-0 Yes [id number] 2g Take 0.5 [facility] ine 4 gram 5-19 Packets by ity of powder 00:00: mouth (three) Medical times Branch daily with meals. phenytoin 2020-0 Yes [id number] 400mg Take 4 [facility] nivers Extended 5-19 capsules ity of (DILANTIN) 00:00: by mouth [place] 100 mg 00 daily. Medical capsule Branch levothyroxi 2020-0 Yes [id number] 150ug Take 1 [facility] ne 150 mcg 5-19 tablet by ity of tablet 00:00: mouth every Medical morning. Branch cholestyram 2020-0 Yes [id number] 2g Take 0.5 [facility] ine 4 gram 5-19 Packets by ity of powder 00:00: mouth (three) Medical times Branch daily with meals. phenytoin 2020-0 Yes [id number] 400mg Take 4 U nivers Extended 5-19 capsules ity of (DILANTIN) 00:00: by mouth [place] 100 mg 00 daily. Medical capsule Branch levothyroxi 2020-0 Yes [id number] 150ug Take 1 [facility] ne 150 mcg 5-19 tablet by ity of tablet 00:00: mouth [place] 00 every Medical morning. Branch cholestyram 2020-0 Yes [id number] 2g Take 0.5 [facility] ine 4 gram 5-19 Packets by ity of powder 00:00: mouth 3 (three) Medical times Branch daily with meals. phenytoin 2020-0 Yes [id number] 400mg Take 4 [facility] nivers Extended 5-19 capsules ity of (DILANTIN) 00:00: by mouth [place] 100 mg 00 daily. Medical capsule Branch levothyroxi 2020-0 Yes [id number] 150ug Take 1 [facility] ne 150 mcg 5-19 tablet by ity of tablet 00:00: mouth [place] 00 every Medical morning. Branch cholestyram 2020-0 Yes [id number] 2g Take 0.5 [facility] ine 4 gram 5-19 Packets by ity of powder 00:00: mouth 3 (three) Medical times Branch daily with meals. phenytoin 2020-0 Yes [id number] 400mg Take 4 [facility] nivers Extended 5-19 capsules ity of (DILANTIN) 00:00: by mouth [place] 100 mg 00 daily. Medical capsule Branch levothyroxi 2020-0 Yes [id number] 150ug Take 1 [facility] ne 150 mcg 5-19 tablet by ity of tablet 00:00: mouth [place] 00 every Medical morning. Branch cholestyram 2020-0 Yes [id number] 2g Take 0.5 [facility] ine 4 gram 5-19 Packets by ity of powder 00:00: mouth 3 (three) Medical times Branch daily with meals. nystatin 2020-0 Yes [id number] Apply to [facility] n[facility] 100,000 5-19 area(s) 2 ity of unit/gram 00:00: (two) [place] powder 00 times Medical daily. Branch phenytoin 2020-0 Yes [id number] 400mg Take 4 [facility] nivers Extended 5-19 capsules ity of (DILANTIN) 00:00: by mouth [place] 100 mg 00 daily. Medical capsule Branch FLUoxetine 2020-0 Yes 60mg Take 3 [facility] 20 mg 5-19 capsules ity of capsule 00:00: by mouth [place] 00 daily. Medical Branch levothyroxi 2020-0 Yes [id number] 150ug Take 1 [facility] ne 150 mcg 5-19 tablet by ity of tablet 00:00: mouth [place] 00 every Medical morning. Branch cholestyram 2020-0 Yes [id number] 2g Take 0.5 [facility] ine 4 gram 5-19 Packets by ity of powder 00:00: mouth 3 (three) Medical times Branch daily with meals. LORazepam 1 2020-0 Yes [id number] 1mg Take 1 [facility] mg tablet 5-19 tablet by ity o f 00:00: mouth once [place] 00 daily as Medical needed for Branch Anxiety or Agitation. nystatin 2020-0 Yes [id number] Apply to [facility] 100,000 5-19 area(s) 2 ity of unit/gram 00:00: (two) [place] powder 00 times Medical daily. Branch phenytoin 2020-0 Yes [id number] 400mg Take 4 [facility] nivers Extended 5-19 capsules ity of (DILANTIN) 00:00: by mouth [place] 100 mg 00 daily. Medical capsule Branch levothyroxi 2020-0 Yes [id number] 150ug Take 1 [facility] ne 150 mcg 5-19 tablet by ity of tablet 00:00: mouth [place] 00 every Medical morning. Branch cholestyram 2020-0 Yes [id number] 2g Take 0.5 [facility] ine 4 gram 5-19 Packets by ity of powder 00:00: mouth 3 (three) Medical times Branch daily with meals. LORazepam 1 2020-0 Yes [id number] 1mg Take 1 [facility] mg tablet 5-19 tablet by ity o f 00:00: mouth once [place] 00 daily as Medical needed for Branch Anxiety or Agitation. nystatin 2020-0 Yes [id number] Apply to [facility] n[facility] 100,000 5-19 area(s) 2 ity of unit/gram 00:00: (two) [place] powder 00 times Medical daily. Branch phenytoin 2020-0 Yes [id number] 400mg Take 4 U nivers Extended 5-19 capsules ity of (DILANTIN) 00:00: by mouth [place] 100 mg 00 daily. Medical capsule Branch levothyroxi 2020-0 Yes [id number] 150ug Take 1 [facility] ne 150 mcg 5-19 tablet by ity of tablet 00:00: mouth [place] 00 every Medical morning. Branch cholestyram 2020-0 Yes [id number] 2g Take 0.5 [facility] ine 4 gram 5-19 Packets by ity of powder 00:00: mouth 3 00 (three) Medical times Branch daily with meals. nystatin 2020-0 Yes [id number] Apply to [facility] 100,000 5-19 area(s) 2 ity of unit/gram 00:00: (two) [place] powder 00 times Medical daily. Branch phenytoin 2020-0 Yes [id number] 400mg Take 4 U nivers Extended 5-19 capsules ity of (DILANTIN) 00:00: by mouth [place] 100 mg 00 daily. Medical capsule Branch levothyroxi 2020-0 Yes [id number] 150ug Take 1 [facility] ne 150 mcg 5-19 tablet by ity of tablet 00:00: mouth [place] 00 every Medical morning. Branch cholestyram 2020-0 Yes [id number] 2g Take 0.5 [facility] ine 4 gram 5-19 Packets by ity of powder 00:00: mouth 3 00 (three) Medical times [place] daily with meals. nystatin 2020-0 Yes [id number] Apply to [facility] 100,000 5-19 area(s) 2 ity of unit/gram 00:00: (two) [place] powder 00 times Medical daily. Branch phenytoin 2020-0 Yes [id number] 400mg Take 4 U nivers Extended 5-19 capsules ity of (DILANTIN) 00:00: by mouth [place] 100 mg 00 daily. Medical capsule Branch levothyroxi 2020-0 Yes [id number] 150ug Take 1 [facility] ne 150 mcg 5-19 tablet by ity of tablet 00:00: mouth [place] 00 every Medical morning. Branch cholestyram 2020-0 Yes [id number] 2g Take 0.5 [facility] ine 4 gram 5-19 Packets by ity of powder 00:00: mouth 3 00 (three) Medical [facility] daily with meals. nystatin 2020-0 Yes [id number] Apply to [facility] 100,000 5-19 area(s) 2 ity of unit/gram 00:00: (two) [place] powder 00 times Medical daily. Branch phenytoin 2020-0 Yes [id number] 400mg Take 4 U nivers Extended 5-19 capsules ity of (DILANTIN) 00:00: by mouth [place] 100 mg 00 daily. Medical capsule Branch levothyroxi 2020-0 Yes [id number] 150ug Take 1 [facility] ne 150 mcg 5-19 tablet by ity of tablet 00:00: mouth [place] 00 every Medical morning. Branch cholestyram 2020-0 Yes [id number] 2g Take 0.5 [facility] ine 4 gram 5-19 Packets by ity of powder 00:00: mouth 3 (three) Medical times Branch daily with meals. nystatin 2020-0 Yes [id number] Apply to [facility] n[facility] 100,000 5-19 area(s) 2 ity of unit/gram 00:00: (two) [place] powder 00 times Medical daily. Branch phenytoin 2020-0 Yes [id number] 400mg Take 4 U nivers Extended 5-19 capsules ity of (DILANTIN) 00:00: by mouth [place] 100 mg 00 daily. Medical capsule Branch levothyroxi 2020-0 Yes [id number] 150ug Take 1 [facility] ne 150 mcg 5-19 tablet by ity of tablet 00:00: mouth every Medical morning. Branch cholestyram 2020-0 Yes [id number] 2g Take 0.5 [facility] ine 4 gram 5-19 Packets by ity of powder 00:00: mouth 3 (three) Medical times Branch daily with meals. phenytoin 2020-0 Yes [id number] 400mg Take 4 U nivers Extended 5-19 capsules ity of (DILANTIN) 00:00: by mouth [place] 100 mg 00 daily. Medical capsule Branch levothyroxi 2020-0 Yes [id number] 150ug Take 1 [facility] ne 150 mcg 5-19 tablet by ity of tablet 00:00: mouth every Medical morning. Branch cholestyram 2020-0 Yes [id number] 2g Take 0.5 [facility] ine 4 gram 5-19 Packets by ity of powder 00:00: mouth (three) Medical times Branch daily with meals. phenytoin 2020-0 Yes [id number] 400mg Take 4 [facility] nivers Extended 5-19 capsules ity of (DILANTIN) 00:00: by mouth [place] 100 mg 00 daily. Medical capsule Branch levothyroxi 2020-0 Yes [id number] 150ug Take 1 [facility] ne 150 mcg 5-19 tablet by ity of tablet 00:00: mouth every Medical morning. Branch cholestyram 2020-0 Yes [id number] 2g Take 0.5 [facility] ine 4 gram 5-19 Packets by ity of powder 00:00: mouth 3 (three) Medical times Branch daily with meals. phenytoin 2020-0 Yes [id number] 400mg Take 4 [facility] nivers Extended 5-19 capsules ity of (DILANTIN) 00:00: by mouth [place] 100 mg 00 daily. Medical capsule Branch levothyroxi 2020-0 Yes [id number] 150ug Take 1 [facility] ne 150 mcg 5-19 tablet by ity of tablet 00:00: mouth [place] 00 every Medical morning. Branch cholestyram 2020-0 Yes [id number] 2g Take 0.5 [facility] ine 4 gram 5-19 Packets by ity of powder 00:00: mouth 3 (three) Medical times Branch daily with meals. phenytoin 2020-0 Yes [id number] 400mg Take 4 [facility] nivers Extended 5-19 capsules ity of (DILANTIN) 00:00: by mouth [place] 100 mg 00 daily. Medical capsule Branch levothyroxi 2020-0 Yes [id number] 150ug Take 1 [facility] ne 150 mcg 5-19 tablet by ity of tablet 00:00: mouth 00 every Medical morning. Branch cholestyram 2020-0 Yes [id number] 2g Take 0.5 [facility] ine 4 gram 5-19 Packets by ity of powder 00:00: mouth 3 (three) Medical times Branch daily with meals. phenytoin 2020-0 Yes [id number] 400mg Take 4 U nivers Extended 5-19 capsules ity of (DILANTIN) 00:00: by mouth [place] 100 mg 00 daily. Medical capsule Branch levothyroxi 2020-0 Yes [id number] 150ug Take 1 [facility] ne 150 mcg 5-19 tablet by ity of tablet 00:00: mouth [place] 00 every Medical morning. Branch cholestyram 2020-0 Yes [id number] 2g Take 0.5 [facility] ine 4 gram 5-19 Packets by ity of powder 00:00: mouth 3 (three) Medical times Branch daily with meals. phenytoin 2020-0 Yes [id number] 400mg Take 4 U nivers Extended 5-19 capsules ity of (DILANTIN) 00:00: by mouth [place] 100 mg 00 daily. Medical capsule Branch levothyroxi 2020-0 Yes [id number] 150ug Take 1 [facility] ne 150 mcg 5-19 tablet by ity of tablet 00:00: mouth [place] 00 every Medical morning. Branch cholestyram 2020-0 Yes [id number] 2g Take 0.5 [facility] ine 4 gram 5-19 Packets by ity of powder 00:00: mouth 3 (three) Medical times Branch daily with meals. phenytoin 2020-0 Yes [id number] 400mg Take 4 U nivers Extended 5-19 capsules ity of (DILANTIN) 00:00: by mouth [place] 100 mg 00 daily. Medical capsule Branch levothyroxi 2020-0 Yes [id number] 150ug Take 1 [facility] ne 150 mcg 5-19 tablet by ity of tablet 00:00: mouth 00 every Medical morning. Branch cholestyram 2020-0 Yes [id number] 2g Take 0.5 [facility] ine 4 gram 5-19 Packets by ity of powder 00:00: mouth 3 (three) Medical times Branch daily with meals. phenytoin 2020-0 Yes [id number] 400mg Take 4 U nivers Extended 5-19 capsules ity of (DILANTIN) 00:00: by mouth [place] 100 mg 00 daily. Medical capsule Branch levothyroxi 2020-0 Yes [id number] 150ug Take 1 [facility] ne 150 mcg 5-19 tablet by ity of tablet 00:00: mouth [place] every Medical morning. Branch cholestyram 2020-0 Yes [id number] 2g Take 0.5 [facility] ine 4 gram 5-19 Packets by ity of powder 00:00: mouth (three) Medical times Branch daily with meals. phenytoin 2020-0 Yes [id number] 400mg Take 4 U nivers Extended 5-19 capsules ity of (DILANTIN) 00:00: by mouth [place] 100 mg 00 daily. Medical capsule Branch levothyroxi 2020-0 Yes [id number] 150ug Take 1 [facility] ne 150 mcg 5-19 tablet by ity of tablet 00:00: mouth [place] every Medical morning. Branch cholestyram 2020-0 Yes [id number] 2g Take 0.5 [facility] ine 4 gram 5-19 Packets by ity of powder 00:00: mouth (three) Medical times Branch daily with meals. phenytoin 2020-0 Yes [id number] 400mg Take 4 U nivers Extended 5-19 capsules ity of (DILANTIN) 00:00: by mouth [place] 100 mg 00 daily. Medical capsule Branch levothyroxi 2020-0 Yes [id number] 150ug Take 1 [facility] ne 150 mcg 5-19 tablet by ity of tablet 00:00: mouth [place] every Medical morning. Branch cholestyram 2020-0 Yes [id number] 2g Take 0.5 [facility] ine 4 gram 5-19 Packets by ity of powder 00:00: mouth 3 (three) Medical times Branch daily with meals. phenytoin 2020-0 Yes [id number] 400mg Take 4 U nivers Extended 5-19 capsules ity of (DILANTIN) 00:00: by mouth [place] 100 mg 00 daily. Medical capsule Branch levothyroxi 2020-0 Yes [id number] 150ug Take 1 [facility] ne 150 mcg 5-19 tablet by ity of tablet 00:00: mouth 00 every Medical morning. Branch cholestyram 2019-0 Yes [id number] 2g Take 0.5 [facility] ine 4 gram 5-19 Packets by ity of powder 00:00: mouth (three) Medical times Branch daily with meals. phenytoin 2020-0 Yes [id number] 400mg Take 4 U nivers Extended 5-19 capsules ity of (DILANTIN) 00:00: by mouth [place] 100 mg 00 daily. Medical capsule Branch levothyroxi 2019-0 Yes [id number] 150ug Take 1 [facility] ne 150 mcg 5-19 tablet by ity of tablet 00:00: mouth every Medical morning. Branch cholestyram 2019-0 Yes [id number] 2g Take 0.5 [facility] ine 4 gram 5-19 Packets by ity of powder 00:00: mouth (three) Medical times Branch daily with meals. phenytoin 2020-0 Yes [id number] 400mg Take 4 U nivers Extended 5-19 capsules ity of (DILANTIN) 00:00: by mouth [place] 100 mg 00 daily. Medical capsule Branch levothyroxi 2020-0 Yes [id number] 150ug Take 1 [facility] ne 150 mcg 5-19 tablet by ity of tablet 00:00: mouth 00 every Medical morning. Branch cholestyram 2019-0 Yes [id number] 2g Take 0.5 [facility] ine 4 gram 5-19 Packets by ity of powder 00:00: mouth 3 (three) Medical times Branch daily with meals. phenytoin 2020-0 Yes [id number] 400mg Take 4 U nivers Extended 5-19 capsules ity of (DILANTIN) 00:00: by mouth [place] 100 mg 00 daily. Medical capsule Branch levothyroxi 2020-0 Yes [id number] 150ug Take 1 [facility] ne 150 mcg 5-19 tablet by ity of tablet 00:00: mouth every Medical morning. Branch cholestyram 2020-0 Yes [id number] 2g Take 0.5 [facility] ine 4 gram 5-19 Packets by ity of powder 00:00: mouth 3 (three) Medical times Branch daily with meals. phenytoin 2020-0 Yes [id number] 400mg Take 4 U nivers Extended 5-19 capsules ity of (DILANTIN) 00:00: by mouth [place] 100 mg 00 daily. Medical capsule Branch levothyroxi 2020-0 Yes [id number] 150ug Take 1 [facility] ne 150 mcg 5-19 tablet by ity of tablet 00:00: mouth every Medical morning. Branch cholestyram 2020-0 Yes [id number] 2g Take 0.5 [facility] ine 4 gram 5-19 Packets by ity of powder 00:00: mouth (three) Medical times Branch daily with meals. phenytoin 2020-0 Yes [id number] 400mg Take 4 [facility] n[facility] Extended 5-19 capsules ity of (DILANTIN) 00:00: by mouth [place] 100 mg 00 daily. Medical capsule Branch levothyroxi 2020-0 Yes [id number] 150ug Take 1 [facility] ne 150 mcg 5-19 tablet by ity of tablet 00:00: mouth every Medical morning. Branch cholestyram 2020-0 Yes [id number] 2g Take 0.5 [facility] ine 4 gram 5-19 Packets by ity of powder 00:00: mouth (three) Medical times Branch daily with meals. phenytoin 2020-0 Yes [id number] 400mg Take 4 [facility] Extended 5-19 capsules ity of (DILANTIN) 00:00: by mouth [place] 100 mg 00 daily. Medical capsule Branch levothyroxi 2020-0 Yes [id number] 150ug Take 1 [facility] ne 150 mcg 5-19 tablet by ity of tablet 00:00: mouth every Medical morning. Branch cholestyram 2020-0 Yes [id number] 2g Take 0.5 [facility] ine 4 gram 5-19 Packets by ity of powder 00:00: mouth 3 (three) Medical times Branch daily with meals. phenytoin 2020-0 Yes [id number] 400mg Take 4 [facility] Extended 5-19 capsules ity of (DILANTIN) 00:00: by mouth [place] 100 mg 00 daily. Medical capsule Branch levothyroxi 2020-0 Yes [id number] 150ug Take 1 [facility] ne 150 mcg 5-19 tablet by ity of tablet 00:00: mouth every Medical morning. Branch cholestyram 2020-0 Yes [id number] 2g Take 0.5 [facility] ine 4 gram 5-19 Packets by ity of powder 00:00: mouth 3 (three) Medical times Branch daily with meals. phenytoin 2020-0 Yes [id number] 400mg Take 4 [facility] Extended 5-19 capsules ity of (DILANTIN) 00:00: by mouth [place] 100 mg 00 daily. Medical capsule Branch levothyroxi 2020-0 Yes [id number] 150ug Take 1 [facility] ne 150 mcg 5-19 tablet by ity of tablet 00:00: mouth every Medical morning. Branch cholestyram 2020-0 Yes [id number] 2g Take 0.5 [facility] in[facility] 4 gram 5-19 Packets by ity of powder 00:00: mouth (three) Medical times Branch daily with meals. phenytoin 2020-0 Yes [id number] 400mg Take 4 [facility] Extended 5-19 capsules ity of (DILANTIN) 00:00: by mouth [place] 100 mg 00 daily. Medical capsule Branch levothyroxi 2020-0 Yes [id number] 150ug Take 1 [facility] ne 150 mcg 5-19 tablet by ity of tablet 00:00: mouth every Medical morning. Branch cholestyram 2020-0 Yes [id number] 2g Take 0.5 [facility] ine 4 gram 5-19 Packets by ity of powder 00:00: mouth (three) Medical times Branch daily with meals. phenytoin 2020-0 Yes [id number] 400mg Take 4 [facility] Extended 5-19 capsules ity of (DILANTIN) 00:00: by mouth [place] 100 mg 00 daily. Medical capsule Branch levothyroxi 2020-0 Yes [id number] 150ug Take 1 [facility] ne 150 mcg 5-19 tablet by ity of tablet 00:00: mouth every Medical morning. Branch cholestyram 2020-0 Yes [id number] 2g Take 0.5 [facility] ine 4 gram 5-19 Packets by ity of powder 00:00: mouth (three) Medical times Branch daily with meals. nystatin 2019-2019- No [id number] Apply to [facility] 100,000 5-19 08-18 area(s) 2 ity of unit/gram 00:00: 00:00 (two) [place] powder 00 :00 times Medical daily. Branch nystatin 2019- No [id number] Apply to [facility] 100,000 5-19 08-18 area(s) 2 ity of unit/gram 00:00: 00:00 (two) [place] powder 00 :00 times Medical daily. Branch LORazepam 1 2019- No [id number] 1mg Take 1 [facility] mg tablet 09-01-16 tablet by ity of 00:00: 00:00 mouth once [place] 00 :00 daily as Medical needed for Branch Anxiety or Agitation. LORazepam 1 2019- No [id number] 1mg Take 1 [facility] mg tablet 09-01-16 tablet by ity of 00:00: 00:00 mouth once [place] 00 :00 daily as Medical needed for Branch Anxiety or Agitation. FLUoxetine 2020- No 60mg Take 3 [facility] ers 20 mg -02 10-08 capsules ity of capsule 00:00: 00:00 by mouth [place] 00 :00 daily. Medical Branch FLUoxetine 2019- 2020- No 60mg Take 3 [facility] ers 20 mg -02 10-08 capsules ity of capsule 00:00: 00:00 by mouth [place] 00 :00 daily. Medical Branch pantoprazol 2019- No [id number] 40mg Take 1 [facility] e 40 mg EC 5- 05-21 tablet by [facility] of tablet 00:00: 00:00 mouth once [place] 00 :00 daily as Medical needed for Branch Indigestio n. pantoprazol 2019-2019- No [id number] 40mg Take 1 [facility] e 40 mg EC 5- 05-21 tablet by ity of tablet 00:00: 00:00 mouth once [place] 00 :00 daily as Medical needed for Branch Indigestio n. LORazepam 1 2019- No [id number] 1mg Take 1 [facility] mg tablet 5- 05-19 tablet by ity of 00:00: 00:00 mouth [place] 00 :00 every Medical other day. Branch PANTOPRAZOL 2019- Yes [id number] TAKE 1 [facility] E 40 mg EC 5-12 TABLET BY ity of tablet 00:00: MOUTH [place] 00 TWICE A Medical DAY Branch PANTOPRAZOL 2019-0 Yes [id number] TAKE 1 [facility] E 40 mg EC 5-12 TABLET BY ity of tablet 00:00: MOUTH [place] 00 TWICE A Medical DAY Branch PANTOPRAZOL 2020-0 2020- No [id number] TAKE 1 [facility] E 40 mg EC 5-12 05-19 TABLET BY ity of tablet 00:00: 00:00 MOUTH [place] 00 :00 TWICE A Medical DAY Branch levothyroxi 2020-0 Yes [id number] 150ug Take 1 [facility] ne 150 mcg 4-27 tablet by ity of tablet 00:00: mouth [place] 00 every Medical morning. Branch levothyroxi 2019-0 Yes [id number] 150ug Take 1 [facility] ne 150 mcg 4-27 tablet by ity of tablet 00:00: mouth [place] 00 every Medical morning. Branch levothyroxi 2019-0 2020- No [id number] 150ug Take 1 [facility] ne 150 mcg 4-27 05-19 tablet by ity of tablet 00:00: 00:00 mouth [place] 00 :00 every Medical morning. Branch acetaminoph 2020-0 Yes [id number] .5{tbl} Take 0.5-1 [facility] en-codeine 4-24 [id number] tablets by it y of (TYLENOL-CO 00:00: mouth [place] DEINE #3) 00 every 4 Medical 300-30 mg (four) Branch tablet hours as needed (pain). Pt medicaid is under her maiden name Cyndie Doan acetaminoph 2020-0 Yes [id number] .5{tbl} Take 0.5-1 [facility] en-codeine 4-24 [id number] tablets by it y of (TYLENOL-CO 00:00: mouth [place] DEINE #3) 00 every 4 Medical 300-30 mg (four) Branch tablet hours as needed (pain). Pt medicaid is under her maiden name Cyndie Doan acetaminoph 2020-0 Yes [id number] .5{tbl} Take 0.5-1 [facility] en-codeine 4-24 [id number] tablets by it y of (TYLENOL-CO 00:00: mouth [place] DEINE #3) 00 every 4 Medical 300-30 mg (four) Branch tablet hours as needed (pain). Pt medicaid is under her maiden name Cyndie Doan acetaminoph 2020-0 Yes [id number] .5{tbl} Take 0.5-1 [facility] en-codeine 4-24 [id number] tablets by it y of (TYLENOL-CO 00:00: mouth [place] DEINE #3) 00 every 4 Medical 300-30 mg (four) Branch tablet hours as needed (pain). Pt medicaid is under her maiden name Cyndie Doan acetaminoph 2020-0 Yes [id number] .5{tbl} Take 0.5-1 [facility] en-codeine 4-24 [id number] tablets by it y of (TYLENOL-CO 00:00: mouth [place] DEINE #3) 00 every 4 Medical 300-30 mg (four) Branch tablet hours as needed (pain). Pt medicaid is under her maiden name Cyndie Doan acetaminoph 2020-0 Yes [id number] .5{tbl} Take 0.5-1 [facility] en-codeine 4-24 [id number] tablets by it y of (TYLENOL-CO 00:00: mouth [place] DEINE #3) 00 every 4 Medical 300-30 mg (four) Branch tablet hours as needed (pain). Pt medicaid is under her maiden name Cyndie Doan acetaminoph 2019-0 Yes [id number] .5{tbl} Take 0.5-1 [facility] en-codeine 4-24 [id number] tablets by it y of (TYLENOL-CO 00:00: mouth [place] DEINE #3) 00 every 4 Medical 300-30 mg (four) Branch tablet hours as needed (pain). Pt medicaid is under her maiden name Cyndie Doan acetaminoph 2019-0 Yes [id number] .5{tbl} Take 0.5-1 [facility] en-codeine 4-24 [id number] tablets by it y of (TYLENOL-CO 00:00: mouth [place] DEINE #3) 00 every 4 Medical 300-30 mg (four) Branch tablet hours as needed (pain). Pt medicaid is under her maiden name Cyndie Doan acetaminoph 2020-0 Yes [id number] .5{tbl} Take 0.5-1 [facility] en-codeine 4-24 [id number] tablets by it y of (TYLENOL-CO 00:00: mouth [place] DEINE #3) 00 every 4 Medical 300-30 mg (four) Branch tablet hours as needed (pain). Pt medicaid is under her maiden name Cyndie Doan acetaminoph 2020-0 2020- No [id number] .5{tbl} Take 0.5-1 [facility] en-codeine 08-07 [id number] tablets by i ty of (TYLENOL-CO 00:00: 00:00 mouth [place] DEINE #3[place] 00 :00 every 4 Medical 300-30 mg (four) Branch tablet hours as needed (pain). Pt medicaid is under her maiden name Cyndie Doan acetaminoph 2020-0 2020- No [id number] .5{tbl} Take 0.5-1 [facility] en-codeine 08-07 [id number] tablets by i ty of (TYLENOL-CO 00:00: 00:00 mouth [place] DEINE #3) 00 :00 every 4 Medical 300-30 mg (four) Branch tablet hours as needed (pain). Pt medicaid is under her maiden name Cyndie Doan clotrimazol 2020-0 Yes [id number] Apply to [facility] e 1 % 4-21 area(s) 2 ity of topical 00:00: (two) [place] cream 00 times Medical daily. Branch clotrimazol 2020-0 Yes [id number] Apply to [facility] e 1 % 4-21 area(s) 2 ity of topical 00:00: (two) [place] cream 00 times Medical daily. Branch clotrimazol 2020-0 Yes [id number] Apply to [facility] e 1 % 4-21 area(s) 2 ity of topical 00:00: (two) [place] cream 00 times Medical daily. Branch clotrimazol 2020-0 Yes [id number] Apply to [facility] e 1 % 4-21 area(s) 2 ity of topical 00:00: (two) [place] cream 00 times Medical daily. Branch clotrimazol 2020-0 Yes [id number] Apply to [facility] e 1 % 4-21 area(s) 2 ity of topical 00:00: (two) [place] cream 00 times Medical daily. Branch clotrimazol 2020-0 Yes [id number] Apply to [facility] e 1 % 4-21 area(s) 2 ity of topical 00:00: (two) [place] cream 00 times Medical daily. Branch clotrimazol 2020-0 Yes [id number] Apply to [facility] e 1 % 4-21 area(s) 2 ity of topical 00:00: (two) [place] cream 00 times Medical daily. Branch clotrimazol 2020-0 2020- No [id number] Apply to [facility] e 1 % 4-21 05-19 area(s) 2 ity of topical 00:00: 00:00 (two) [place] cream 00 :00 times Medical daily. Branch ketoconazol 2020-0 Yes [id number] Apply to [facility] e 2 % cream 4-17 area(s) 2 ity of 00:00: (two) [place] 00 times Medical daily. Branch ketoconazol 2020-0 Yes [id number] Apply to [facility] e 2 % cream 4-17 area(s) 2 ity of 00:00: (two) [place] 00 times Medical daily. Branch ketoconazol 2020-0 2020- No [id number] Apply to [facility] e 2 % cream 4-17 04-21 area(s) 2 it y of 00:00: 00:00 (two) [place] 00 :00 times Medical daily. Branch ketoconazol 2020-0 2020- No [id number] Apply to [facility] e 2 % cream 4-17 04-21 area(s) 2 it y of 00:00: 00:00 (two) [place] 00 :00 times Medical daily. Branch LORazepam 1 2019-0 Yes [id number] 1mg Take 1 [facility] mg tablet 4-07 tablet by ity o f 00:00: mouth 2 (two) Medical times per Branch week for Anxiety or Agitation. LORazepam 1 2020-0 Yes [id number] 1mg Take 1 [facility] mg tablet 4-07 tablet by ity o f 00:00: mouth 2 (two) Medical times per Branch week for Anxiety or Agitation. LORazepam 1 2020-0 Yes [id number] 1mg Take 1 [facility] mg tablet 4-07 tablet by ity o f 00:00: mouth 2 (two) Medical times per Branch week for Anxiety or Agitation. LORazepam 1 2020-0 Yes [id number] 1mg Take 1 [facility] mg tablet 4-07 tablet by ity o f 00:00: mouth 2 (two) Medical times per Branch week for Anxiety or Agitation. LORazepam 1 2020-0 Yes [id number] 1mg Take 1 [facility] mg tablet 4-07 tablet by ity o f 00:00: mouth 2 (two) Medical times per Branch week for Anxiety or Agitation. LORazepam 1 2020-0 Yes [id number] 1mg Take 1 [facility] mg tablet 4-07 tablet by ity o f 00:00: mouth 2 (two) Medical times per Branch week for Anxiety or Agitation. LORazepam 1 2020-0 Yes [id number] 1mg Take 1 [facility] mg tablet 4-07 tablet by ity o f 00:00: mouth 2 (two) Medical times per Branch week for Anxiety or Agitation. LORazepam 1 2020-0 Yes [id number] 1mg Take 1 [facility] mg tablet 4-07 tablet by ity o f 00:00: mouth 2 (two) Medical times per Branch week for Anxiety or Agitation. LORazepam 1 2020-0 Yes [id number] 1mg Take 1 [facility] mg tablet 4-07 tablet by ity o f 00:00: mouth 2 (two) Medical times per Branch week for Anxiety or Agitation. LORazepam 1 2020-0 Yes [id number] 1mg Take 1 [facility] mg tablet 4-07 tablet by ity o f 00:00: mouth 2 (two) Medical times per Branch week for Anxiety or Agitation. LORazepam 1 2020-0 Yes [id number] 1mg Take 1 [facility] mg tablet 4-07 tablet by ity o f 00:00: mouth 2 (two) Medical times per Branch week for Anxiety or Agitation. LORazepam 1 2020-0 Yes [id number] 1mg Take 1 [facility] mg tablet 4-07 tablet by ity o f 00:00: mouth 2 (two) Medical times per Branch week for Anxiety or Agitation. LORazepam 1 2019-0 2020- No [id number] 1mg Take 1 [facility] mg tablet 4-07 [...] by mouth ity of (VRAYLAR 13:57: at [place] ORAL) 55 bedtime. Medical Branch cariprazine 2020-0 [...] by mouth ity of (VRAYLAR 13:57: at [place] ORAL) 55 bedtime. Medical Branch cariprazine 2020-0 Yes 10mg Take 10 mg [facility] HCl 3-24 by mouth ity of (VRAYLAR 13:57: at [place] ORAL) 55 bedtime. Medical Branch cariprazine 2020-0 Yes 10mg Take 10 mg [facility] HCl 3-24 by mouth ity of (VRAYLAR 13:57: at [place] ORAL) 55 bedtime. Medical Branch cariprazine 2019-0 Yes 10mg Take 10 mg [facility] HCl 3-24 by mouth ity of (VRAYLAR 13:57: at [place] ORAL) 55 bedtime. Medical Branch pantoprazol 2019-0 2020- No 40mg Take 40 mg [facility] e 40 mg EC 3-24 03-24 by mouth 2 it y of tablet 13:52: 00:00 (two) [place] 30 :00 times Medical daily. Branch phenytoin 2020-0 Yes [id number] 400mg Take 4 [facility] nivers Extended 3-24 capsules ity of (DILANTIN) 00:00: by mouth [place] 100 mg 00 daily. Medical capsule Branch FLUoxetine 2019-0 Yes 40mg Take 1 [facility] rs (PROZAC) 40 3-24 capsule by it y of mg capsule 00:00: mouth [place] 00 daily. Medical Branch cholestyram 2020-0 Yes [id number] 2g Take 0.5 [facility] ine 4 gram 3-24 Packets by ity of powder 00:00: mouth 3 [place] 00 (three) Medical times Branch daily with meals. clonazePAM 2020-0 Yes [id number] 1mg Take 1 [facility] 1 mg tablet 3-24 tablet by ity of 00:00: mouth once [place] 00 daily as Medical needed Branch (panic attack). pantoprazol 2020-0 Yes [id number] 40mg Take 1 [facility] e 40 mg EC 3-24 tablet by ity of tablet 00:00: mouth 2 [place] 00 (two) Medical times Branch daily. famotidine 2020-0 Yes [id number] 20mg Take 1 [facility] (PEPCID AC) 3-24 tablet by ity of 20 mg 00:00: mouth 2 [place] tablet 00 (two) Medical times Branch daily. phenytoin 2020-0 Yes [id number] 400mg Take 4 [facility] nivers Extended 3-24 capsules ity of (DILANTIN) 00:00: by mouth [place] 100 mg 00 daily. Medical capsule Branch FLUoxetine 2020-0 Yes 40mg Take 1 [facility] rs (PROZAC) 40 3-24 capsule by it y of mg capsule 00:00: mouth [place] 00 daily. Medical Branch cholestyram 2020-0 Yes [id number] 2g Take 0.5 [facility] ine 4 gram 3-24 Packets by ity of powder 00:00: mouth 3 (three) Medical times Branch daily with meals. clonazePAM 2020-0 Yes [id number] 1mg Take 1 [facility] 1 mg tablet 3-24 tablet by ity of 00:00: mouth once 00 daily as Medical needed Branch (panic attack). pantoprazol 2020-0 Yes [id number] 40mg Take 1 [facility] e 40 mg EC 3-24 tablet by ity of tablet 00:00: mouth 2 [place] 00 (two) Medical times Branch daily. famotidine 2020-0 Yes [id number] 20mg Take 1 [facility] (PEPCID AC) 3-24 tablet by ity of 20 mg 00:00: mouth 2 [place] tablet 00 (two) Medical times Branch daily. phenytoin 2020-0 Yes [id number] 400mg Take 4 [facility] nivers Extended 3-24 capsules ity of (DILANTIN) 00:00: by mouth [place] 100 mg 00 daily. Medical capsule Branch FLUoxetine 2020-0 Yes 40mg Take 1 [facility] rs (PROZAC) 40 3-24 capsule by it y of mg capsule 00:00: mouth [place] 00 daily. Medical Branch cholestyram 2020-0 Yes [id number] 2g Take 0.5 [facility] ine 4 gram 3-24 Packets by ity of powder 00:00: mouth 3 00 (three) Medical times Branch daily with meals. clonazePAM 2020-0 Yes [id number] 1mg Take 1 [facility] 1 mg tablet 3-24 tablet by ity of 00:00: mouth once 00 daily as Medical needed Branch (panic attack). pantoprazol 2020-0 Yes [id number] 40mg Take 1 [facility] e 40 mg EC 3-24 tablet by ity of tablet 00:00: mouth 2 [place] 00 (two) Medical times Branch daily. famotidine 2020-0 Yes [id number] 20mg Take 1 [facility] (PEPCID AC) 3-24 tablet by ity of 20 mg 00:00: mouth 2 [place] tablet 00 (two) Medical times Branch daily. phenytoin 2020-0 Yes [id number] 400mg Take 4 [facility] nivers Extended 3-24 capsules ity of (DILANTIN) 00:00: by mouth [place] 100 mg 00 daily. Medical capsule Branch FLUoxetine 2020-0 Yes 40mg Take 1 [facility] rs (PROZAC) 40 3-24 capsule by it y of mg capsule 00:00: mouth 00 daily. Medical Branch cholestyram 2020-0 Yes [id number] 2g Take 0.5 [facility] ine 4 gram 3-24 Packets by ity of powder 00:00: mouth 3 00 (three) Medical times Branch daily with meals. clonazePAM 2020-0 Yes [id number] 1mg Take 1 [facility] 1 mg tablet 3-24 tablet by ity of 00:00: mouth once 00 daily as Medical needed Branch (panic attack). pantoprazol 2020-0 Yes [id number] 40mg Take 1 [facility] e 40 mg EC 3-24 tablet by ity of tablet 00:00: mouth 2 [place] 00 (two) Medical times Branch daily. famotidine 2020-0 Yes [id number] 20mg Take 1 [facility] (PEPCID AC) 3-24 tablet by ity of 20 mg 00:00: mouth 2 [place] tablet 00 (two) Medical times Branch daily. phenytoin 2020-0 Yes [id number] 400mg Take 4 [facility] nivers Extended 3-24 capsules ity of (DILANTIN) 00:00: by mouth [place] 100 mg 00 daily. Medical capsule Branch FLUoxetine 2020-0 Yes 40mg Take 1 [facility] rs (PROZAC) 40 3-24 capsule by it y of mg capsule 00:00: mouth [place] 00 daily. Medical Branch cholestyram 2020-0 Yes [id number] 2g Take 0.5 [facility] ine 4 gram 3-24 Packets by ity of powder 00:00: mouth 3 [place] 00 (three) Medical times Branch daily with meals. clonazePAM 2020-0 Yes [id number] 1mg Take 1 [facility] 1 mg tablet 3-24 tablet by ity of 00:00: mouth once [place] 00 daily as Medical needed Branch (panic attack). pantoprazol 2020-0 Yes [id number] 40mg Take 1 [facility] e 40 mg EC 3-24 tablet by ity of tablet 00:00: mouth 2 [place] 00 (two) Medical times Branch daily. famotidine 2020-0 Yes [id number] 20mg Take 1 [facility] (PEPCID AC) 3-24 tablet by ity of 20 mg 00:00: mouth 2 [place] tablet 00 (two) Medical times Branch daily. phenytoin 2020-0 Yes [id number] 400mg Take 4 [facility] nivers Extended 3-24 capsules ity of (DILANTIN) 00:00: by mouth [place] 100 mg 00 daily. Medical capsule Branch FLUoxetine 2020-0 Yes 40mg Take 1 [facility] rs (PROZAC) 40 3-24 capsule by it y of mg capsule 00:00: mouth [place] 00 daily. Medical Branch cholestyram 2020-0 Yes [id number] 2g Take 0.5 [facility] ine 4 gram 3-24 Packets by ity of powder 00:00: mouth 3 [place] 00 (three) Medical times Branch daily with meals. clonazePAM 2020-0 Yes [id number] 1mg Take 1 [facility] 1 mg tablet 3-24 tablet by ity of 00:00: mouth once [place] 00 daily as Medical needed Branch (panic attack). pantoprazol 2020-0 Yes [id number] 40mg Take 1 [facility] e 40 mg EC 3-24 tablet by ity of tablet 00:00: mouth 2 [place] 00 (two) Medical times Branch daily. famotidine 2020-0 Yes [id number] 20mg Take 1 [facility] (PEPCID AC) 3-24 tablet by ity of 20 mg 00:00: mouth 2 [place] tablet 00 (two) Medical times Branch daily. phenytoin 2020-0 Yes [id number] 400mg Take 4 [facility] nivers Extended 3-24 capsules ity of (DILANTIN) 00:00: by mouth [place] 100 mg 00 daily. Medical capsule Branch FLUoxetine 2020-0 Yes 40mg Take 1 [facility] rs (PROZAC) 40 3-24 capsule by it y of mg capsule 00:00: mouth [place] 00 daily. Medical Branch cholestyram 2020-0 Yes [id number] 2g Take 0.5 [facility] ine 4 gram 3-24 Packets by ity of powder 00:00: mouth 3 [place] 00 (three) Medical times Branch daily with meals. clonazePAM 2020-0 Yes [id number] 1mg Take 1 [facility] 1 mg tablet 3-24 tablet by ity of 00:00: mouth once [place] 00 daily as Medical needed Branch (panic attack). pantoprazol 2020-0 Yes [id number] 40mg Take 1 [facility] e 40 mg EC 3-24 tablet by ity of tablet 00:00: mouth 2 [place] 00 (two) Medical times Branch daily. famotidine 2020-0 Yes [id number] 20mg Take 1 [facility] (PEPCID AC) 3-24 tablet by ity of 20 mg 00:00: mouth 2 [place] tablet 00 (two) Medical times Branch daily. phenytoin 2020-0 Yes [id number] 400mg Take 4 [facility] nivers Extended 3-24 capsules ity of (DILANTIN) 00:00: by mouth [place] 100 mg 00 daily. Medical capsule Branch FLUoxetine 2020-0 Yes 40mg Take 1 [facility] rs (PROZAC) 40 3-24 capsule by it y of mg capsule 00:00: mouth [place] 00 daily. Medical Branch cholestyram 2020-0 Yes [id number] 2g Take 0.5 [facility] ine 4 gram 3-24 Packets by ity of powder 00:00: mouth 3 [place] 00 (three) Medical times Branch daily with meals. clonazePAM 2020-0 Yes [id number] 1mg Take 1 [facility] 1 mg tablet 3-24 tablet by ity of 00:00: mouth once [place] 00 daily as Medical needed Branch (panic attack). pantoprazol 2020-0 Yes [id number] 40mg Take 1 [facility] e 40 mg EC 3-24 tablet by ity of tablet 00:00: mouth 2 [place] 00 (two) Medical times Branch daily. famotidine 2020-0 Yes [id number] 20mg Take 1 [facility] (PEPCID AC) 3-24 tablet by ity of 20 mg 00:00: mouth 2 [place] tablet 00 (two) Medical times Branch daily. phenytoin 2020-0 Yes [id number] 400mg Take 4 [facility] nivers Extended 3-24 capsules ity of (DILANTIN) 00:00: by mouth [place] 100 mg 00 daily. Medical capsule Branch FLUoxetine 2020-0 Yes 40mg Take 1 [facility] rs (PROZAC) 40 3-24 capsule by it y of mg capsule 00:00: mouth [place] 00 daily. Medical Branch cholestyram 2020-0 Yes [id number] 2g Take 0.5 [facility] ine 4 gram 3-24 Packets by ity of powder 00:00: mouth 3 (three) Medical times Branch daily with meals. pantoprazol 2020-0 Yes [id number] 40mg Take 1 [facility] e 40 mg EC 3-24 tablet by ity of tablet 00:00: mouth 2 (two) Medical times Branch daily. famotidine 2020-0 Yes [id number] 20mg Take 1 [facility] (PEPCID AC) 3-24 tablet by ity of 20 mg 00:00: mouth 2 [place] tablet 00 (two) Medical times Branch daily. phenytoin 2020-0 Yes [id number] 400mg Take 4 [facility] nivers Extended 3-24 capsules ity of (DILANTIN) 00:00: by mouth [place] 100 mg 00 daily. Medical capsule Branch FLUoxetine 2020-0 Yes 40mg Take 1 [facility] rs (PROZAC) 40 3-24 capsule by it y of mg capsule 00:00: mouth 00 daily. Medical Branch cholestyram 2020-0 Yes [id number] 2g Take 0.5 [facility] ine 4 gram 3-24 Packets by ity of powder 00:00: mouth 3 (three) Medical times Branch daily with meals. pantoprazol 2020-0 Yes [id number] 40mg Take 1 [facility] e 40 mg EC 3-24 tablet by ity of tablet 00:00: mouth 2 [place] 00 (two) Medical times Branch daily. famotidine 2020-0 Yes [id number] 20mg Take 1 [facility] (PEPCID AC) 3-24 tablet by ity of 20 mg 00:00: mouth 2 [place] tablet 00 (two) Medical times Branch daily. phenytoin 2020-0 Yes [id number] 400mg Take 4 [facility] nivers Extended 3-24 capsules ity of (DILANTIN) 00:00: by mouth [place] 100 mg 00 daily. Medical capsule Branch FLUoxetine 2020-0 Yes 40mg Take 1 [facility] rs (PROZAC) 40 3-24 capsule by it y of mg capsule 00:00: mouth 00 daily. Medical Branch cholestyram 2020-0 Yes [id number] 2g Take 0.5 [facility] ine 4 gram 3-24 Packets by ity of powder 00:00: mouth 3 (three) Medical times Branch daily with meals. pantoprazol 2020-0 Yes [id number] 40mg Take 1 [facility] e 40 mg EC 3-24 tablet by ity of tablet 00:00: mouth 2 (two) Medical times Branch daily. famotidine 2020-0 Yes [id number] 20mg Take 1 [facility] (PEPCID AC) 3-24 tablet by ity of 20 mg 00:00: mouth 2 [place] tablet (two) Medical times Branch daily. phenytoin 2020-0 Yes [id number] 400mg Take 4 [facility] nivers Extended 3-24 capsules ity of (DILANTIN) 00:00: by mouth [place] 100 mg 00 daily. Medical capsule Branch FLUoxetine 2020-0 Yes 40mg Take 1 [facility] rs (PROZAC) 40 3-24 capsule by it y of mg capsule 00:00: mouth 00 daily. Medical Branch cholestyram 2020-0 Yes [id number] 2g Take 0.5 [facility] ine 4 gram 3-24 Packets by ity of powder 00:00: mouth (three) Medical times Branch daily with meals. pantoprazol 2020-0 Yes [id number] 40mg Take 1 [facility] e 40 mg EC 3-24 tablet by ity of tablet 00:00: mouth 2 [place] 00 (two) Medical times Branch daily. famotidine 2020-0 Yes [id number] 20mg Take 1 [facility] (PEPCID AC) 3-24 tablet by ity of 20 mg 00:00: mouth 2 [place] tablet 00 (two) Medical times Branch daily. phenytoin 2020-0 Yes [id number] 400mg Take 4 [facility] nivers Extended 3-24 capsules ity of (DILANTIN) 00:00: by mouth [place] 100 mg 00 daily. Medical capsule Branch FLUoxetine 2020-0 Yes 40mg Take 1 [facility] rs (PROZAC) 40 3-24 capsule by it y of mg capsule 00:00: mouth [place] 00 daily. Medical Branch cholestyram 2020-0 Yes [id number] 2g Take 0.5 [facility] ine 4 gram 3-24 Packets by ity of powder 00:00: mouth 3 [place] (three) Medical times Branch daily with meals. pantoprazol 2020-0 Yes [id number] 40mg Take 1 [facility] e 40 mg EC 3-24 tablet by ity of tablet 00:00: mouth 2 [place] 00 (two) Medical times Branch daily. famotidine 2020-0 Yes [id number] 20mg Take 1 [facility] (PEPCID AC) 3-24 tablet by ity of 20 mg 00:00: mouth 2 [place] tablet 00 (two) Medical times Branch daily. phenytoin 2020-0 Yes [id number] 400mg Take 4 [facility] nivers Extended 3-24 capsules ity of (DILANTIN) 00:00: by mouth [place] 100 mg 00 daily. Medical capsule Branch FLUoxetine 2020-0 Yes 40mg Take 1 [facility] rs (PROZAC) 40 3-24 capsule by it y of mg capsule 00:00: mouth [place] 00 daily. Medical Branch cholestyram 2020-0 Yes [id number] 2g Take 0.5 [facility] in[facility] 4 gram 3-24 Packets by ity of powder 00:00: mouth 3 (three) Medical times Branch daily with meals. pantoprazol 2020-0 Yes [id number] 40mg Take 1 [facility] e 40 mg EC 3-24 tablet by ity of tablet 00:00: mouth 2 [place] 00 (two) Medical times Branch daily. famotidine 2020-0 Yes [id number] 20mg Take 1 [facility] (PEPCID AC) 3-24 tablet by ity of 20 mg 00:00: mouth 2 [place] tablet 00 (two) Medical times Branch daily. phenytoin 2020-0 Yes [id number] 400mg Take 4 [facility] nivers Extended 3-24 capsules ity of (DILANTIN) 00:00: by mouth [place] 100 mg 00 daily. Medical capsule Branch FLUoxetine 2020-0 Yes 40mg Take 1 [facility] (PROZAC) 40 3-24 capsule by it y of mg capsule 00:00: mouth [place] 00 daily. Medical Branch cholestyram 2020-0 Yes [id number] 2g Take 0.5 [facility] in[facility] 4 gram 3-24 Packets by ity of powder 00:00: mouth 3 [place] (three) Medical times Branch daily with meals. pantoprazol 2020-0 Yes [id number] 40mg Take 1 [facility] e 40 mg EC 3-24 tablet by ity of tablet 00:00: mouth 2 [place] 00 (two) Medical times Branch daily. famotidine 2020-0 Yes [id number] 20mg Take 1 [facility] (PEPCID AC) 3-24 tablet by ity of 20 mg 00:00: mouth 2 [place] tablet 00 (two) Medical times Branch daily. phenytoin 2020-0 Yes [id number] 400mg Take 4 [facility] nivers Extended 3-24 capsules ity of (DILANTIN) 00:00: by mouth [place] 100 mg 00 daily. Medical capsule Branch FLUoxetine 2020-0 Yes 40mg Take 1 [facility] (PROZAC) 40 3-24 capsule by it y of mg capsule 00:00: mouth 00 daily. Medical Branch cholestyram 2020-0 Yes [id number] 2g Take 0.5 [facility] in[facility] 4 gram 3-24 Packets by ity of powder 00:00: mouth 3 (three) Medical times Branch daily with meals. pantoprazol 2020-0 Yes [id number] 40mg Take 1 [facility] e 40 mg EC 3-24 tablet by ity of tablet 00:00: mouth 2 [place] 00 (two) Medical times Branch daily. famotidine 2020-0 Yes [id number] 20mg Take 1 [facility] (PEPCID AC) 3-24 tablet by ity of 20 mg 00:00: mouth 2 [place] tablet 00 (two) Medical times Branch daily. phenytoin 2020-0 Yes [id number] 400mg Take 4 [facility] nivers Extended 3-24 capsules ity of (DILANTIN) 00:00: by mouth [place] 100 mg 00 daily. Medical capsule Branch FLUoxetine 2020-0 Yes 40mg Take 1 [facility] (PROZAC) 40 3-24 capsule by it y of mg capsule 00:00: mouth [place] 00 daily. Medical Branch cholestyram 2020-0 Yes [id number] 2g Take 0.5 [facility] in[facility] 4 gram 3-24 Packets by ity of powder 00:00: mouth 3 00 (three) Medical times Branch daily with meals. pantoprazol 2020-0 Yes [id number] 40mg Take 1 [facility] e 40 mg EC 3-24 tablet by ity of tablet 00:00: mouth 2 [place] 00 (two) Medical times Branch daily. famotidine 2020-0 Yes [id number] 20mg Take 1 [facility] (PEPCID AC) 3-24 tablet by ity of 20 mg 00:00: mouth 2 [place] tablet 00 (two) Medical times Branch daily. phenytoin 2020-0 Yes [id number] 400mg Take 4 [facility] nivers Extended 3-24 capsules ity of (DILANTIN) 00:00: by mouth [place] 100 mg 00 daily. Medical capsule Branch FLUoxetine 2020-0 Yes 40mg Take 1 [facility] (PROZAC) 40 3-24 capsule by it y of mg capsule 00:00: mouth 00 daily. Medical Branch cholestyram 2020-0 Yes [id number] 2g Take 0.5 [facility] 4 gram 3-24 Packets by ity of powder 00:00: mouth 3 (three) Medical times Branch daily with meals. pantoprazol 2020-0 Yes [id number] 40mg Take 1 [facility] e 40 mg EC 3-24 tablet by ity of tablet 00:00: mouth 2 00 (two) Medical times Branch daily. famotidine 2020-0 Yes [id number] 20mg Take 1 [facility] (PEPCID AC) 3-24 tablet by ity of 20 mg 00:00: mouth 2 [place] tablet 00 (two) Medical times Branch daily. phenytoin 2020-0 Yes [id number] 400mg Take 4 [facility] nivers Extended 3-24 capsules ity of (DILANTIN) 00:00: by mouth [place] 100 mg 00 daily. Medical capsule Branch FLUoxetine 2020-0 Yes 40mg Take 1 [facility] (PROZAC) 40 3-24 capsule by it y of mg capsule 00:00: mouth 00 daily. Medical Branch cholestyram 2020-0 Yes [id number] 2g Take 0.5 [facility] 4 gram 3-24 Packets by ity of powder 00:00: mouth 3 00 (three) Medical times Branch daily with meals. pantoprazol 2020-0 Yes [id number] 40mg Take 1 [facility] e 40 mg EC 3-24 tablet by ity of tablet 00:00: mouth 2 [place] 00 (two) Medical times Branch daily. famotidine 2020-0 Yes [id number] 20mg Take 1 [facility] (PEPCID AC) 3-24 tablet by ity of 20 mg 00:00: mouth 2 [place] tablet 00 (two) Medical times Branch daily. phenytoin 2020-0 Yes [id number] 400mg Take 4 [facility] nivers Extended 3-24 capsules ity of (DILANTIN) 00:00: by mouth [place] 100 mg 00 daily. Medical capsule Branch FLUoxetine 2020-0 Yes 40mg Take 1 [facility] (PROZAC) 40 3-24 capsule by it y of mg capsule 00:00: mouth [place] 00 daily. Medical Branch cholestyram 2020-0 Yes [id number] 2g Take 0.5 [facility] in[facility] 4 gram 3-24 Packets by ity of powder 00:00: mouth 3 [place] 00 (three) Medical times Branch daily with meals. famotidine 2020-0 Yes [id number] 20mg Take 1 [facility] (PEPCID AC) 3-24 tablet by ity of 20 mg 00:00: mouth 2 [place] tablet 00 (two) Medical times Branch daily. phenytoin 2020-0 Yes [id number] 400mg Take 4 [facility] Extended 3-24 capsules ity of (DILANTIN) 00:00: by mouth [place] 100 mg 00 daily. Medical capsule Branch FLUoxetine 2020-0 Yes 40mg Take 1 [facility] (PROZAC) 40 3-24 capsule by it y of mg capsule 00:00: mouth [place] 00 daily. Medical Branch cholestyram 2020-0 Yes [id number] 2g Take 0.5 [facility] 4 gram 3-24 Packets by ity of powder 00:00: mouth 3 [place] (three) Medical times Branch daily with meals. famotidine 2020-0 Yes [id number] 20mg Take 1 [facility] (PEPCID AC) 3-24 tablet by ity of 20 mg 00:00: mouth 2 [place] tablet 00 (two) Medical times Branch daily. phenytoin 2020-0 Yes [id number] 400mg Take 4 [facility] Extended 3-24 capsules ity of (DILANTIN) 00:00: by mouth [place] 100 mg 00 daily. Medical capsule Branch FLUoxetine 2020-0 Yes 40mg Take 1 [facility] (PROZAC) 40 3-24 capsule by it y of mg capsule 00:00: mouth [place] 00 daily. Medical Branch cholestyram 2020-0 Yes [id number] 2g Take 0.5 [facility] 4 gram 3-24 Packets by ity of powder 00:00: mouth 3 [place] 00 (three) Medical times Branch daily with meals. famotidine 2020-0 Yes [id number] 20mg Take 1 [facility] (PEPCID AC) 3-24 tablet by ity of 20 mg 00:00: mouth 2 [place] tablet 00 (two) Medical times Branch daily. famotidine 2020-0 Yes [id number] 20mg Take 1 [facility] (PEPCID AC) 3-24 tablet by ity of 20 mg 00:00: mouth 2 [place] tablet 00 (two) Medical times Branch daily. famotidine 2020-0 Yes [id number] 20mg Take 1 [facility] (PEPCID AC) 3-24 tablet by ity of 20 mg 00:00: mouth 2 [place] tablet 00 (two) Medical times Branch daily. famotidine 2020-0 Yes [id number] 20mg Take 1 [facility] (PEPCID AC) 3-24 tablet by ity of 20 mg 00:00: mouth 2 [place] tablet 00 (two) Medical times Branch daily. famotidine 2020-0 Yes [id number] 20mg Take 1 [facility] (PEPCID AC) 3-24 tablet by ity of 20 mg 00:00: mouth 2 [place] tablet 00 (two) Medical times Branch daily. famotidine 2020-0 Yes [id number] 20mg Take 1 [facility] (PEPCID AC) 3-24 tablet by ity of 20 mg 00:00: mouth 2 [place] tablet 00 (two) Medical times Branch daily. famotidine 2020-0 Yes [id number] 20mg Take 1 [facility] (PEPCID AC) 3-24 tablet by ity of 20 mg 00:00: mouth 2 [place] tablet 00 (two) Medical times Branch daily. famotidine 2020-0 Yes [id number] 20mg Take 1 [facility] (PEPCID AC) 3-24 tablet by ity of 20 mg 00:00: mouth 2 [place] tablet 00 (two) Medical times Branch daily. famotidine 2020-0 Yes [id number] 20mg Take 1 [facility] (PEPCID AC) 3-24 tablet by ity of 20 mg 00:00: mouth 2 [place] tablet 00 (two) Medical times Branch daily. famotidine 2020-0 Yes [id number] 20mg Take 1 [facility] (PEPCID AC) 3-24 tablet by ity of 20 mg 00:00: mouth 2 [place] tablet 00 (two) Medical times Branch daily. famotidine 2020-0 Yes [id number] 20mg Take 1 [facility] (PEPCID AC) 3-24 tablet by ity of 20 mg 00:00: mouth 2 [place] tablet 00 (two) Medical times Branch daily. famotidine 2020-0 Yes [id number] 20mg Take 1 [facility] (PEPCID AC) 3-24 tablet by ity of 20 mg 00:00: mouth 2 [place] tablet 00 (two) Medical times Branch daily. famotidine 2020-0 Yes [id number] 20mg Take 1 [facility] (PEPCID AC) 3-24 tablet by ity of 20 mg 00:00: mouth 2 [place] tablet 00 (two) Medical times Branch daily. famotidine 2020-0 Yes [id number] 20mg Take 1 [facility] (PEPCID AC) 3-24 tablet by ity of 20 mg 00:00: mouth 2 [place] tablet 00 (two) Medical times Branch daily. famotidine 2020-0 Yes [id number] 20mg Take 1 [facility] (PEPCID AC) 3-24 tablet by ity of 20 mg 00:00: mouth 2 [place] tablet 00 (two) Medical times Branch daily. famotidine 2020-0 Yes [id number] 20mg Take 1 [facility] (PEPCID AC) 3-24 tablet by ity of 20 mg 00:00: mouth 2 [place] tablet 00 (two) Medical times Branch daily. famotidine 2020-0 Yes [id number] 20mg Take 1 [facility] (PEPCID AC) 3-24 tablet by ity of 20 mg 00:00: mouth 2 [place] tablet 00 (two) Medical times Branch daily. famotidine 2020-0 Yes [id number] 20mg Take 1 [facility] (PEPCID AC) 3-24 tablet by ity of 20 mg 00:00: mouth 2 [place] tablet 00 (two) Medical times Branch daily. famotidine 2020-0 Yes [id number] 20mg Take 1 [facility] (PEPCID AC) 3-24 tablet by ity of 20 mg 00:00: mouth 2 [place] tablet 00 (two) Medical times Branch daily. famotidine 2020-0 Yes [id number] 20mg Take 1 [facility] (PEPCID AC) 3-24 tablet by ity of 20 mg 00:00: mouth 2 [place] tablet 00 (two) Medical times Branch daily. pantoprazol 2020-0 Yes [id number] 40mg Take 1 [facility] e 40 mg EC 3-24 tablet by ity of tablet 00:00: mouth 2 [place] 00 (two) Medical times Branch daily. famotidine 2020-0 Yes [id number] 20mg Take 1 [facility] (PEPCID AC) 3-24 tablet by ity of 20 mg 00:00: mouth 2 [place] tablet 00 (two) Medical times Branch daily. phenytoin 2020-0 Yes [id number] 400mg Take 4 [facility] Extended 3-24 capsules ity of (DILANTIN) 00:00: by mouth [place] 100 mg 00 daily. Medical capsule Branch FLUoxetine 2020-0 Yes 40mg Take 1 [facility] (PROZAC) 40 3-24 capsule by it y of mg capsule 00:00: mouth [place] 00 daily. Medical Branch cholestyram 2020-0 Yes [id number] 2g Take 0.5 [facility] in[facility] 4 gram 3-24 Packets by ity of powder 00:00: mouth 3 [place] 00 (three) Medical times Branch daily with meals. clonazePAM 2020-0 Yes [id number] 1mg Take 1 [facility] 1 mg tablet 3-24 tablet by ity of 00:00: mouth once 00 daily as Medical needed Branch (panic attack). pantoprazol 2020-0 Yes [id number] 40mg Take 1 [facility] e 40 mg EC 3-24 tablet by ity of tablet 00:00: mouth 2 [place] 00 (two) Medical times Branch daily. famotidine 2020-0 Yes [id number] 20mg Take 1 [facility] (PEPCID AC) 3-24 tablet by ity of 20 mg 00:00: mouth 2 [place] tablet 00 (two) Medical times Branch daily. famotidine 2020-0 2023- No [id number] 20mg Take 1 [facility] (PEPCID AC) 3-24 01-10 tablet by it y of 20 mg 00:00: 00:00 mouth 2 [place] tablet 00 :00 (two) Medical times Branch daily. famotidine 2020-0 2023- No [id number] 20mg Take 1 [facility] (PEPCID AC) 3-24 01-10 tablet by it y of 20 mg 00:00: 00:00 mouth 2 [place] tablet 00 :00 (two) Medical times Branch daily. famotidine 2019-2022- No [id number] 20mg Take 1 [facility] (PEPCID AC) 07-07- tablet by it y of 20 mg 00:00: 00:00 mouth 2 [place] tablet 00 :00 (two) Medical times Branch daily. famotidine 2022- No [id number] 20mg Take 1 [facility] (PEPCID AC) 07-07 tablet by it y of 20 mg 00:00: 00:00 mouth 2 [place] tablet 00 :00 (two) Medical times Branch daily. famotidine 2022- No [id number] 20mg Take 1 [facility] (PEPCID AC) 07-07 tablet by it y of 20 mg 00:00: 00:00 mouth 2 [place] tablet 00 :00 (two) Medical times Branch daily. famotidine No [id number] 20mg Take 1 [facility] (PEPCID AC) 07-07 tablet by it y of 20 mg 00:00: 00:00 mouth 2 [place] tablet 00 :00 (two) Medical times Branch daily. phenytoin 2019- No [id number] 400mg Take 4 [facility] Extended 07-07- capsules ity of (DILANTIN) 00:00: 00:00 by mouth [place] 100 mg 00 :00 daily. Medical capsule Branch FLUoxetine 2019- No 40mg Take 1 [facility] ers (PROZAC) 40 07-07 capsule by i ty of mg capsule 00:00: 00:00 mouth [place] 00 :00 daily. Medical Branch cholestyram 2019- No [id number] 2g Take 0.5 [facility] in[facility] 4 gram 07-07 Packets by it y of powder 00:00: 00:00 mouth 3 [place] 00 :00 (three) Medical times Branch daily with meals. pantoprazol 2019-2019- No [id number] 40mg Take 1 [facility] e 40 mg EC 07-07 tablet by ity of tablet 00:00: 00:00 mouth 2 [place] 00 :00 (two) Medical times Branch daily. clonazePAM 2019-2019- No [id number] 1mg Take 1 [facility] 1 mg tablet 07-07- tablet by it y of 00:00: 00:00 mouth once [place] 00 :00 daily as Medical needed Branch (panic attack). clonazePAM 2020-0 2020- No [id number] 1mg Take 1 [facility] 1 mg tablet 3-24 03-24 tablet by it y of 00:00: 00:00 mouth 3 [place] 00 :00 (three) Medical times Branch daily. levothyroxi 2020-0 Yes [id number] 150ug Take 1 [facility] ne 150 mcg 3-12 tablet by ity of tablet 00:00: mouth [place] 00 every Medical morning. Branch levothyroxi 2020-0 Yes [id number] 150ug Take 1 [facility] ne 150 mcg 3-12 tablet by ity of tablet 00:00: mouth [place] 00 every Medical morning. Branch levothyroxi 2020-0 Yes [id number] 150ug Take 1 [facility] ne 150 mcg 3-12 tablet by ity of tablet 00:00: mouth [place] 00 every Medical morning. Branch levothyroxi 2020-0 Yes [id number] 150ug Take 1 [facility] ne 150 mcg 3-12 tablet by ity of tablet 00:00: mouth [place] 00 every Medical morning. Branch levothyroxi 2020-0 Yes [id number] 150ug Take 1 [facility] ne 150 mcg 3-12 tablet by ity of tablet 00:00: mouth [place] 00 every Medical morning. Branch levothyroxi 2020-0 Yes [id number] 150ug Take 1 [facility] ne 150 mcg 3-12 tablet by ity of tablet 00:00: mouth [place] 00 every Medical morning. Branch levothyroxi 2020-0 Yes [id number] 150ug Take 1 [facility] ne 150 mcg 3-12 tablet by ity of tablet 00:00: mouth [place] 00 every Medical morning. Branch levothyroxi 2020-0 Yes [id number] 150ug Take 1 [facility] ne 150 mcg 3-12 tablet by ity of tablet 00:00: mouth [place] 00 every Medical morning. Branch levothyroxi 2020-0 Yes [id number] 150ug Take 1 [facility] ne 150 mcg 3-12 tablet by ity of tablet 00:00: mouth [place] 00 every Medical morning. Branch levothyroxi 2020-0 Yes [id number] 150ug Take 1 [facility] ne 150 mcg 3-12 tablet by ity of tablet 00:00: mouth [place] 00 every Medical morning. Branch levothyroxi 2020-0 Yes [id number] 150ug Take 1 [facility] ne 150 mcg 3-12 tablet by ity of tablet 00:00: mouth [place] 00 every Medical morning. Branch levothyroxi 2020-0 Yes [id number] 150ug Take 1 [facility] ne 150 mcg 3-12 tablet by ity of tablet 00:00: mouth [place] 00 every Medical morning. Branch levothyroxi 2020-0 Yes [id number] 150ug Take 1 [facility] ne 150 mcg 3-12 tablet by ity of tablet 00:00: mouth [place] 00 every Medical morning. Branch levothyroxi 2020-0 Yes [id number] 150ug Take 1 [facility] ne 150 mcg 3-12 tablet by ity of tablet 00:00: mouth [place] 00 every Medical morning. Branch levothyroxi 2020-0 Yes [id number] 150ug Take 1 [facility] ne 150 mcg 3-12 tablet by ity of tablet 00:00: mouth [place] 00 every Medical morning. Branch levothyroxi 2020-0 Yes [id number] 150ug Take 1 [facility] ne 150 mcg 3-12 tablet by ity of tablet 00:00: mouth [place] 00 every Medical morning. Branch levothyroxi 2020-0 Yes [id number] 150ug Take 1 [facility] ne 150 mcg 3-12 tablet by ity of tablet 00:00: mouth [place] 00 every Medical morning. Branch levothyroxi 2020-0 Yes [id number] 150ug Take 1 [facility] ne 150 mcg 3-12 tablet by ity of tablet 00:00: mouth [place] 00 every Medical morning. Branch levothyroxi 2020-0 Yes [id number] 150ug Take 1 [facility] ne 150 mcg 3-12 tablet by ity of tablet 00:00: mouth [place] 00 every Medical morning. Branch levothyroxi 2020-0 Yes [id number] 150ug Take 1 [facility] ne 150 mcg 3-12 tablet by ity of tablet 00:00: mouth [place] 00 every Medical morning. Branch levothyroxi 2020-0 Yes [id number] 150ug Take 1 [facility] ne 150 mcg 3-12 tablet by ity of tablet 00:00: mouth [place] 00 every Medical morning. Branch levothyroxi 2020-0 Yes [id number] 150ug Take 1 [facility] ne 150 mcg 3-12 tablet by ity of tablet 00:00: mouth [place] 00 every Medical morning. Branch levothyroxi 2020-0 2020- No [id number] 150ug Take 1 [facility] ne 150 mcg 3-12 04-24 tablet by ity of tablet 00:00: 00:00 mouth [place] 00 :00 every Medical morning. Branch levothyroxi 2020-0 2020- No [id number] 150ug Take 1 [facility] ne 150 mcg 3-12 24 tablet by ity of tablet 00:00: 00:00 mouth [place] 00 :00 every Medical morning. Branch oseltamivir 2020-0 Yes [id number] 75mg Take 1 [facility] nivers 75 mg 1-28 capsule by ity of capsule 00:00: mouth [place] (two) Medical times Branch daily. oseltamivir 2020-0 Yes [id number] 75mg Take 1 [facility] nivers 75 mg 1-28 capsule by ity of capsule 00:00: mouth [place] (two) Medical times Branch daily. oseltamivir 2020-0 Yes [id number] 75mg Take 1 [facility] nivers 75 mg 1-28 capsule by ity of capsule 00:00: mouth [place] (two) Medical times Branch daily. oseltamivir 2020-0 Yes [id number] 75mg Take 1 [facility] nivers 75 mg 1-28 capsule by ity of capsule 00:00: mouth [place] (two) Medical times Branch daily. oseltamivir 2020-0 Yes [id number] 75mg Take 1 [facility] nivers 75 mg 1-28 capsule by ity of capsule 00:00: mouth [place] (two) Medical times Branch daily. oseltamivir 2020-0 Yes [id number] 75mg Take 1 [facility] nivers 75 mg 1-28 capsule by ity of capsule 00:00: mouth [place] (two) Medical times Branch daily. oseltamivir 2020-0 Yes [id number] 75mg Take 1 [facility] nivers 75 mg 1-28 capsule by ity of capsule 00:00: mouth [place] (two) Medical times Branch daily. oseltamivir 2020-0 Yes [id number] 75mg Take 1 [facility] nivers 75 mg 1-28 capsule by ity of capsule 00:00: mouth [place] (two) Medical times Branch daily. oseltamivir 2020-0 Yes [id number] 75mg Take 1 [facility] nivers 75 mg 1-28 capsule by ity of capsule 00:00: mouth [place] (two) Medical times Branch daily. oseltamivir 2020-0 Yes [id number] 75mg Take 1 [facility] nivers 75 mg 1-28 capsule by ity of capsule 00:00: mouth [place] (two) Medical times Branch daily. oseltamivir 2020-0 Yes [id number] 75mg Take 1 [facility] nivers 75 mg 1-28 capsule by ity of capsule 00:00: mouth (two) Medical times Branch daily. oseltamivir 2020-0 Yes [id number] 75mg Take 1 [facility] nivers 75 mg 1-28 capsule by ity of capsule 00:00: mouth (two) Medical times Branch daily. oseltamivir 2020-0 Yes [id number] 75mg Take 1 [facility] nivers 75 mg 1-28 capsule by ity of capsule 00:00: mouth (two) Medical times Branch daily. oseltamivir 2020-0 Yes [id number] 75mg Take 1 [facility] nivers 75 mg 1-28 capsule by ity of capsule 00:00: mouth (two) Medical times Branch daily. oseltamivir 2020-0 Yes [id number] 75mg Take 1 [facility] nivers 75 mg 1-28 capsule by ity of capsule 00:00: mouth (two) Medical times Branch daily. oseltamivir 2020-0 Yes [id number] 75mg Take 1 [facility] nivers 75 mg 1-28 capsule by ity of capsule 00:00: mouth (two) Medical times Branch daily. oseltamivir 2020-0 Yes [id number] 75mg Take 1 [facility] nivers 75 mg 1-28 capsule by ity of capsule 00:00: mouth (two) Medical times Branch daily. oseltamivir 2020-0 Yes [id number] 75mg Take 1 [facility] nivers 75 mg 1-28 capsule by ity of capsule 00:00: mouth (two) Medical times Branch daily. oseltamivir 2020-0 Yes [id number] 75mg Take 1 [facility] nivers 75 mg 1-28 capsule by ity of capsule 00:00: mouth (two) Medical times Branch daily. oseltamivir 2020-0 Yes [id number] 75mg Take 1 [facility] nivers 75 mg 1-28 capsule by ity of capsule 00:00: mouth (two) Medical times Branch daily. oseltamivir 2020-0 Yes [id number] 75mg Take 1 [facility] nivers 75 mg 1-28 capsule by ity of capsule 00:00: mouth (two) Medical times Branch daily. oseltamivir 2020-0 Yes [id number] 75mg Take 1 [facility] nivers 75 mg 1-28 capsule by ity of capsule 00:00: mouth 2 [place] 00 (two) Medical times Branch daily. oseltamivir 2020-0 Yes [id number] 75mg Take 1 [facility] nivers 75 mg 1-28 capsule by ity of capsule 00:00: mouth 2 [place] 00 (two) Medical times Branch daily. oseltamivir 2020-0 Yes [id number] 75mg Take 1 [facility] nivers 75 mg 1-28 capsule by ity of capsule 00:00: mouth 2 [place] 00 (two) Medical times Branch daily. oseltamivir 2020-0 Yes [id number] 75mg Take 1 [facility] nivers 75 mg 1-28 capsule by ity of capsule 00:00: mouth 2 [place] 00 (two) Medical times Branch daily. oseltamivir 2020-0 Yes [id number] 75mg Take 1 [facility] nivers 75 mg 1-28 capsule by ity of capsule 00:00: mouth 2 [place] 00 (two) Medical times Branch daily. oseltamivir 2020-0 Yes [id number] 75mg Take 1 [facility] nivers 75 mg 1-28 capsule by ity of capsule 00:00: mouth [address] [place] [address] 00 (two) Medical times Branch daily. oseltamivir 2020-0 Yes [id number] 75mg Take 1 [facility] nivers 75 mg 1-28 capsule by ity of capsule 00:00: mouth 2 [place] 00 (two) Medical times Branch daily. oseltamivir 2020-0 2020- No [id number] 75mg Take 1 [facility] 75 mg 1-28 05-19 capsule by ity of capsule 00:00: 00:[address] [place] [address] 00 :00 (two) Medical times Branch daily. pantoprazol 2018-04 2020- No [id number] 40mg Take 1 [facility] e 40 mg EC 2-20 03-20 tablet by ity of tablet 00:00: 04:59 mouth [place] 00 :00 daily for Medical 90 days. Branch pantoprazol 2018-04 2020- No [id number] 40mg Take 1 [facility] e 40 mg EC 2-20 03-20 tablet by ity of tablet 00:00: 04:59 mouth [place] 00 :00 daily for Medical 90 days. Branch pantoprazol 2018-04 2020- No [id number] 40mg Take 1 [facility] e 40 mg [...] for Wheezing or Shortness of Breath. levothyroxi 2017-0 Yes 150ug Take 1 [facility] vers ne [...] 00 (three) Medical times Branch daily. albuterol 0 Yes 2{puff} Inhale 2 U nivers 90 5-17 Puffs ity of mcg/actuati 00:00: every 6 [place] on inhaler 00 (six) Medical hours as Branch needed for Wheezing or Shortness of Breath. QUEtiapine 2017- Yes Take 25 mg U nivers 50 mg 5-17 ( half a ity of tablet 00:00: tablet) in [place] 00 the Medical morning Branch and 150mg (3 tablets) at night albuterol Yes 2{puff} Inhale 2 U nivers 90 5-17 Puffs ity of mcg/actuati 00:00: every 6 [place] on inhaler 00 (six) Medical hours as Branch needed for Wheezing or Shortness of Breath. traZODone 2017- Yes 225mg Take 1.5 [facility] vers 150 mg 5-17 tablets by ity of tablet 00:00: mouth at [place] [address] bedtime. Medical Branch albuterol Yes 2{puff} Inhale 2 U nivers 90 5-17 Puffs ity of mcg/actuati 00:00: every 6 [place] on inhaler 00 (six) Medical hours as Branch needed for Wheezing or Shortness of Breath. pantoprazol 2017- Yes 40mg Take 1 [facility] ers e 40 mg EC 5-17 tablet by ity of tablet 00:00: mouth [place] [address] daily. Medical Branch clonazePAM 2017- Yes [id number] 1 tablet [facility] 1 mg tablet 5-17 with ity of 00:00: breakfast [place] 00 and lunch, Medical and 2 Branch [...] by ity of tablet 00:00: mouth at [place] 00 bedtime. Medical Branch pantoprazol 2017- Yes 40mg Take 1 [facility] ers e 40 mg EC 5-17 tablet by ity of tablet 00:00: mouth [place] 00 daily. Medical Branch albuterol 2017-0 Yes 2{puff} Inhale 2 U nivers 90 5-17 Puffs ity of mcg/actuati 00:00: every 6 [place] on inhaler 00 (six) Medical hours as Branch needed for Wheezing or Shortness of Breath. clonazePAM 2018-0 Yes [id number] 1 tablet [facility] 1 mg tablet 5-17 [...] tablet by ity of tablet 00:00: mouth [place] 00 every Medical morning. Branch QUEtiapine Yes Take 25 mg U nivers 50 mg 5-17 ( half a ity of tablet 00:00: tablet) in [place] 00 the Medical morning Branch and 150mg [...] by ity of tablet 00:00: mouth at [place] 00 bedtime. Medical Branch albuterol 2017-0 Yes [...] for Wheezing or Shortness of Breath. levothyroxi 2017-0 Yes 150ug Take 1 [facility] vers ne [...] by ity of tablet 00:00: mouth at [place] 00 bedtime. Medical Branch albuterol 2018-0 Yes [...] for Wheezing or Shortness of Breath. QUEtiapine 2018-0 Yes Take 25 mg U nivers 50 mg 5-17 ( half a ity of tablet 00:00: tablet) in [place] 00 the Medical morning Branch and 150mg (3 tablets) at night traZODone 2018-0 Yes 225mg Take 1.5 [facility] vers 150 mg 5-17 tablets by ity of tablet 00:00: mouth at [place] 00 bedtime. Medical Branch albuterol 2018-0 Yes [...] a ity of tablet 00:00: tablet) in [place] 00 the Medical morning Branch and 150mg [...] by ity of tablet 00:00: mouth at [place] 00 bedtime. Medical Branch albuterol 2017-0 Yes [...] a ity of tablet 00:00: tablet) in [place] 00 the Medical morning Branch and 150mg (3 tablets) at night traZODone 2018-0 Yes 225mg Take 1.5 [facility] vers 150 mg 5-17 tablets by ity of tablet 00:00: mouth at [place] 00 bedtime. Medical Branch albuterol 2017-0 Yes [...] No Take 25 mg [facility] 50 mg 517 03-24 ( half a ity of tablet 00:00: 00:00 tablet) [place] :00 the Medical morning Branch and 150mg (3 tablets) at night traZODone 2019- No 225mg Take 1.5 [facility] maria isabel 150 mg 5-17 03-24 tablets by ity of tablet 00:00: 00:00 mouth at [place] 00 :00 bedtime. Medical Branch levothyroxi 2019- No 150ug Take 1 Un maria isabel ne 150 mcg 5-17 03-12 tablet by ity of tablet 00:00: 00:00 mouth [place] 00 :00 every Medical morning. Branch Vital Signs Vital Name Observation Time Observation Value Comments Source Systolic blood 2022-07-28 13:43:00 157 mm[Hg] Univer sity of [facility] Diastolic blood 2022-07-28 13:43:00 85 mm[Hg] [facility] Heart rate 2022-07-28 13:43:00 78 /min [facility] Body temperature 2022-07-28 13:43:00 35.94 Rachel [facility] Body height 2022-07-28 13:43:00 162.6 cm Universi [facility] Body weight 2022-07-28 13:43:00 74.844 kg Universi [facility] BMI 2022-07-28 13:43:00 28.32 kg/m2 Universi [facility] Systolic blood 2022-07-23 04:56:00 125 mm[Hg] Univer sity of [facility] Diastolic blood 2022-07-23 04:56:00 83 mm[Hg] [facility] Heart rate 2022-07-23 04:56:00 67 /min [facility] Respiratory rate 2022-07-23 04:56:00 18 /min [facility] Oxygen saturation in 2022-07-23 04:56:00 97 /min [facility] Arterial blood by [facility] Pulse oximetry Branch Body temperature 2022-07-23 00:40:00 37.06 Rachel [facility] Body weight 2022-07-23 00:40:00 79.379 kg Universi ty [facility] BMI 2022-07-23 00:40:00 30.04 kg/m2 Universi [facility] Systolic blood 2022-04-25 18:59:00 133 mm[Hg] Univer sity of [facility] Diastolic blood 2022-04-25 18:59:00 82 mm[Hg] Unive rsity of pressure [facility] Heart rate 2022-04-25 18:55:00 81 /min [facility]i [facility] Body temperature 2022-04-25 18:55:00 36.61 Rachel [facility] ers[facility] Respiratory rate 2022-04-25 18:55:00 20 /min Univ ers[facility] Body height 2022-04-25 18:55:00 162.6 cm [facility] Body weight 2022-04-25 18:55:00 78.291 kg [facility] BMI 2022-04-25 18:55:00 29.63 kg/m2 [facility] Oxygen saturation in 2022-04-25 18:55:00 99 /min room air University of Arterial blood by [facility] selin Pulse oximetry Branch Systolic blood 2019-12-02 14:54:00 133 mm[Hg] Univer sity of pressure [facility] Diastolic blood 2019-12-02 14:54:00 87 mm[Hg] Unive rsity of [facility] Heart rate 2019-12-02 14:54:00 73 /min [facility] Body temperature 2019-12-02 14:12:00 36.56 Rachel [facility] Body height 2019-12-02 14:12:00 165.1 cm [facility] Body weight 2019-12-02 14:12:00 94.167 kg [facility] [place] [facility] BMI 2019-12-02 14:12:00 34.55 kg/m2 [facility] Oxygen saturation in 2019-12-02 14:12:00 100 /min room air University of Arterial blood by [facility] selin Pulse oximetry Branch Systolic blood 2019-12-02 14:54:00 133 mm[Hg] Univer sity of [facility] Diastolic blood 2019-12-02 14:54:00 87 mm[Hg] Unive rsity of pressure [facility] Heart rate 2019-12-02 14:54:00 73 /min [facility] Body temperature 2019-12-02 14:12:00 36.56 Rachel [facility] Body height 2019-12-02 14:12:00 165.1 cm Universi ty [facility] Body weight 2019-12-02 14:12:00 94.167 kg Universi ty [facility] BMI 2019-12-02 14:12:00 34.55 kg/m2 Universi [facility] Oxygen saturation in 2019-12-02 14:12:00 100 /min room air University of Arterial blood by [facility] Pulse oximetry Branch Systolic blood 2022-07-28 19:11:27 132 mm[Hg] [facility] pressure Diastolic blood 2022-07-28 19:11:27 90 mm[Hg] [facility] pressure Heart rate 2022-07-28 19:11:27 86 /min [facility] Body temperature 2022-07-28 19:11:27 36.67 Rachel [facility] Respiratory rate 2022-07-28 19:11:27 18 /min [facility] Oxygen saturation in 2022-07-28 19:11:27 97 /min [facility] Arterial blood by Pulse oximetry Body height 2022-07-28 15:47:00 162.6 cm [facility] Body weight 2022-07-28 15:47:00 74.844 kg [facility] BMI 2022-07-28 15:47:00 28.32 kg/m2 [facility] BP Systolic 2021-11-25 19:02:00 BP Diastolic 2021-11-25 [...] Performed CT PELVIS WO CONTRAST 2022-07-28 17:40[facility] AND 2022-07-28 16:40:00 [facility] DIFFERENTIAL COMPREHENSIVE METABOLIC 2022-07-28 16:40:00 [facility] PANEL ESTIMATED GFR 2022-07-28 16:40:00 Brandin [facility] spital XR FEMUR 2 VW RIGHT 2022-07-28 16:20:00 [facility] XR PELVIS 1 OR 2 VW 2022-07-28 16:20:00 [facility] COMP. METABOLIC PANEL 2022-07-23 02:02:00 Lisa Murillo [facility] ([id number]) [facility] CBC WITH DIFF 2022-07-23 02:02:00 Lisa Murillo [facility] URINALYSIS 2022-07-23 01:59:00 Lisa Murillo [facility] CONSENT/REFUSAL FOR 2022-07-23 00:34:52 Doctor Unassigned, No [facility] DIAGNOSIS AND TREATMENT Name [facility] ASSIGNMENT OF BENEFITS 2022-06-15 19:19:00 Doctor Unassigned, No [facility] Name [facility] REFERRAL- 2022-01-10 05:01:00 Doctor Unassigned, No [facility] REQUEST/RESPONSE Name [facility] Plan of Care Planned Activity Planned Date Details Comments Source Future Scheduled 2022-08-10 COVID-19 VACCINE (#1) [facility] Test 13:16:26 [code = COVID-19 VACCINE (#1)] Future Scheduled 2022-08-10 Hepatitis C screening [facility] Test 13:16:26 (procedure) [code = 822736598] Future Scheduled 2022-08-10 Screening for [facility] Test 13:16:26 malignant neoplasm of cervix (procedure) [code = 290291264] Future Scheduled 2022-08-10 BREAST CANCER [facility] Test 13:16:26 SCREENING [code = BREAST CANCER SCREENING] Future Scheduled 2022-08-10 COLONOSCOPY SCREENING [facility] Test 13:16:26 [code = COLONOSCOPY SCREENING] Future Scheduled 2022-08-10 INFLUENZA VACCINE [facility] Test 13:16:26 [code = INFLUENZA VACCINE] Future Scheduled 2022-08-08 COVID-19 VACCINE (#1) [facility] Test 01:29:04 [code = COVID-19 VACCINE (#1)] Future Scheduled 2022-08-08 Hepatitis C screening [facility] Test 01:29:04 (procedure) [code = 114325125] Future Scheduled 2022-08-08 Screening for [facility] Test 01:29:04 malignant neoplasm of cervix (procedure) [code = 325880733] Future Scheduled 2022-08-08 BREAST CANCER [facility] Test 01:29:04 SCREENING [code = BREAST CANCER SCREENING] Future Scheduled 2022-08-08 COLONOSCOPY SCREENING [facility] Test 01:29:04 [code = COLONOSCOPY SCREENING] Future Scheduled 2022-08-08 INFLUENZA VACCINE [facility] Test 01:29:04 [code = INFLUENZA VACCINE] Goal Plan of Care Note [code = 59493-1] Goal Plan of Care Note [code = 20426-5] Goal Plan of Care Note [code = 65652-7] Goal Plan of Care Note [code = 35968-1] Goal Plan of Care Note [code = 58328-2] Goal Plan of Care Note [code = 31820-7] Goal Plan of Care Note [code = 77152-6] Goal Plan of Care Note [code = 61978-4] Goal Plan of Care Note [code = 59354-7] Goal Plan of Care Note [code = 34428-6] Goal Plan of Care Note [code = 04678-0] Goal Plan of Care Note [code = 50674-0] Goal Plan of Care Note [code = 52628-3] Goal Plan of Care Note [code = 63313-3] Goal Plan of Care Note [code = 13049-8] Goal Plan of Care Note [code = 09691-4] Goal Plan of Care Note [code = 51871-3] Goal Plan of Care Note [code = 67072-9] Goal Plan of Care Note [code = 50822-7] Goal Plan of Care Note [code = 15594-3] Goal Plan of Care Note [code = 48988-5] Goal Plan of Care Note [code = 70950-4] Goal Plan of Care Note [code = 40115-1] Goal Plan of Care Note [code = 73201-6] Goal Plan of Care Note [code = 08378-0] Goal Plan of Care Note [code = 39230-1] Goal Plan of Care Note [code = 23432-2] Goal Plan of Care Note [code = 52939-1] Goal Plan of Care Note [code = 22949-3] Goal Plan of Care Note [code = 94668-2] Goal Plan of Care Note [code = 44362-2] Goal Plan of Care Note [code = 56082-5] Goal Plan of Care Note [code = 86565-4] Goal Plan of Care Note [code = 29687-0] Goal Plan of Care Note [code = 96538-2] Goal Plan of Care Note [code = 28859-7] Goal Plan of Care Note [code = 84159-1] Goal Plan of Care Note [code = 24281-8] Goal Plan of Care Note [code = 31081-2] Goal Plan of Care Note [code = 69400-5] Goal Plan of Care Note [code = 02773-8] Goal Plan of Care Note [code = 52892-8] Goal Plan of Care Note [code = 17321-0] Goal Plan of Care Note [code = 32853-4] Goal Plan of Care Note [code = 63878-2] Goal Plan of Care Note [code = 55556-3] Goal Plan of Care Note [code = 80917-1] Goal Plan of Care Note [code = 37079-4] Goal Plan of Care Note [code = 34170-3] Goal Plan of Care Note [code = 50116-2] Goal Plan of Care Note [code = 38677-5] Goal Plan of Care Note [code = 10872-4] Goal Plan of Care Note [code = 21304-5] Goal Plan of Care Note [code = 47582-1] Goal Plan of Care Note [code = 23540-3] Goal Plan of Care Note [code = 36005-8] Goal Plan of Care Note [code = 55887-0] Goal Plan of Care Note [code = 96954-6] Goal Plan of Care Note [code = 70096-1] Goal Plan of Care Note [code = 41522-5] Goal Plan of Care Note [code = 46806-8] Goal Plan of Care Note [code = 60175-6] Goal Plan of Care Note [code = 62760-9] Goal Plan of Care Note [code = 05810-4] Goal Plan of Care Note [code = 33343-4] Goal Plan of Care Note [code = 39996-3] Goal Plan of Care Note [code = 42197-3] Goal Plan of Care Note [code = 70085-9] Goal Plan of Care Note [code = 42696-5] Goal Plan of Care Note [code = 90963-3] Goal Plan of Care Note [code = 24750-1] Goal Plan of Care Note [code = 88656-5] Goal Plan of Care Note [code = 53777-2] Goal Plan of Care Note [code = 92846-3] Goal Plan of Care Note [code = 90852-8] Goal Plan of Care Note [code = 98660-8] Goal Plan of Care Note [code = 28049-5] Goal Plan of Care Note [code = 34792-3] Goal Plan of Care Note [code = 57024-6] Goal Plan of Care Note [code = 54147-5] Goal Plan of Care Note [code = 84155-3] Goal Plan of Care Note [code = 26681-0] Goal Plan of Care Note [code = 22920-5] Goal Plan of Care Note [code = 54552-2] Goal Plan of Care Note [code = 38819-6] Goal Plan of Care Note [code = 70251-9] Goal Plan of Care Note [code = 35495-9] Goal Plan of Care Note [code = 44028-2] Goal Plan of Care Note [code = 14753-9] Goal Plan of Care Note [code = 89954-4] Goal Plan of Care Note [code = 64103-7] Goal Plan of Care Note [code = 62179-0] Goal Plan of Care Note [code = 55451-9] Goal Plan of Care Note [code = 65017-8] Goal Plan of Care Note [code = 53926-3] Goal Plan of Care Note [code = 40745-7] Goal Plan of Care Note [code = 95234-0] Goal Plan of Care Note [code = 91190-5] Goal Plan of Care Note [code = 34652-4] Goal Plan of Care Note [code = 67355-5] Goal Plan of Care Note [code = 14953-6] Goal Plan of Care Note [code = 08149-1] Goal Plan of Care Note [code = 52683-2] Goal Plan of Care Note [code = 06974-5] Goal Plan of Care Note [code = 61957-8] Goal Plan of Care Note [code = 38196-0] Goal Plan of Care Note [code = 64787-6] Goal Plan of Care Note [code = 99526-0] Goal Plan of Care Note [code = 85944-1] Goal Plan of Care Note [code = 97239-2] Goal Plan of Care Note [code = 99755-1] Goal Plan of Care Note [code = 97865-3] Goal Plan of Care Note [code = 82556-7] Goal Plan of Care Note [code = 71311-4] Goal Plan of Care Note [code = 02877-2] Goal Plan of Care Note [code = 64677-8] Goal Plan of Care Note [code = 37107-1] Goal Plan of Care Note [code = 17777-3] Goal Plan of Care Note [code = 17441-7] Goal Plan of Care Note [code = 77852-9] Goal Plan of Care Note [code = 04476-4] Goal Plan of Care Note [code = 73183-1] Goal Plan of Care Note [code = 43439-3] Goal Plan of Care Note [code = 47088-5] Goal Plan of Care Note [code = 87373-5] Goal Plan of Care Note [code = 43088-2] Goal Plan of Care Note [code = 23796-8] Goal Plan of Care Note [code = 40808-1] Goal Plan of Care Note [code = 80604-2] Goal Plan of Care Note [code = 76194-1] Goal Plan of Care Note [code = 12771-6] Goal Plan of Care Note [code = 45648-4] Goal Plan of Care Note [code = 21861-3] Goal Plan of Care Note [code = 33069-0] Goal Plan of Care Note [code = 27093-2] Goal Plan of Care Note [code = 80634-1] Goal Plan of Care Note [code = 40410-5] Goal Plan of Care Note [code = 60726-4] Goal Plan of Care Note [code = 54239-1] Goal Plan of Care Note [code = 73241-6] Goal Plan of Care Note [code = 12458-1] Goal Plan of Care Note [code = 94688-0] Goal Plan of Care Note [code = 22780-1] Goal Plan of Care Note [code = 57642-9] Goal Plan of Care Note [code = 27037-7] Goal Plan of Care Note [code = 63319-9] Goal Plan of Care Note [code = 07656-6] Goal Plan of Care Note [code = 58636-4] Goal Plan of Care Note [code = 65458-9] Goal Plan of Care Note [code = 81652-5] Goal Plan of Care Note [code = 75600-4] Goal Plan of Care Note [code = 73185-0] Goal Plan of Care Note [code = 89700-2] Goal Plan of Care Note [code = 37027-9] Goal Plan of Care Note [code = 55823-6] Goal Plan of Care Note [code = 74031-0] Goal Plan of Care Note [code = 12311-5] Goal Plan of Care Note [code = 76840-1] Goal Plan of Care Note [code = 79688-3] Goal Plan of Care Note [code = 23389-7] Goal Plan of Care Note [code = 38437-4] Goal Plan of Care Note [code = 05601-6] Goal Plan of Care Note [code = 62332-3] Goal Plan of Care Note [code = 64461-3] Goal Plan of Care Note [code = 21477-7] Goal Plan of Care Note [code = 78981-8] Goal Plan of Care Note [code = 38169-9] Goal Plan of Care Note [code = 65510-7] Goal Plan of Care Note [code = 49383-8] Goal Plan of Care Note [code = 70506-8] Goal Plan of Care Note [code = 13964-9] Goal Plan of Care Note [code = 85451-8] Goal Plan of Care Note [code = 38578-9] Goal Plan of Care Note [code = 09550-2] Goal Plan of Care Note [code = 75684-8] Goal Plan of Care Note [code = 37786-0] Goal Plan of Care Note [code = 04624-1] Goal Plan of Care Note [code = 88495-0] Goal Plan of Care Note [code = 25563-9] Goal Plan of Care Note [code = 65354-7] Goal Plan of Care Note [code = 42892-8] Goal Plan of Care Note [code = 92807-5] Goal Plan of Care Note [code = 84823-5] Goal Plan of Care Note [code = 05406-2] Goal Plan of Care Note [code = 45881-5] Goal Plan of Care Note [code = 66929-7] Goal Plan of Care Note [code = 12055-4] Goal Plan of Care Note [code = 83947-1] Goal Plan of Care Note [code = 06121-2] Goal Plan of Care Note [code = 05342-9] Goal Plan of Care Note [code = 79204-9] Goal Plan of Care Note [code = 05793-8] Goal Plan of Care Note [code = 40507-5] Goal Plan of Care Note [code = 88159-8] Goal Plan of Care Note [code = 45758-6] Goal Plan of Care Note [code = 22980-2] Goal Plan of Care Note [code = 49923-9] Goal Plan of Care Note [code = 42344-5] Goal Plan of Care Note [code = 24525-4] Goal Plan of Care Note [code = 34915-4] Goal Plan of Care Note [code = 85309-6] Goal Plan of Care Note [code = 72891-9] Goal Plan of Care Note [code = 96859-6] Goal Plan of Care Note [code = 62237-5] Goal Plan of Care Note [code = 94546-0] Goal Plan of Care Note [code = 11580-4] Goal Plan of Care Note [code = 98284-6] Goal Plan of Care Note [code = 02420-3] Goal Plan of Care Note [code = 51688-9] Goal Plan of Care Note [code = 24075-4] Goal Plan of Care Note [code = 64707-1] Goal Plan of Care Note [code = 52202-8] Goal Plan of Care Note [code = 58213-7] Goal Plan of Care Note [code = 18943-4] Goal Plan of Care Note [code = 74307-5] Goal Plan of Care Note [code = 26419-8] Goal Plan of Care Note [code = 65580-4] Goal Plan of Care Note [code = 74445-1] Goal Plan of Care Note [code = 71365-5] Goal Plan of Care Note [code = 96628-8] Goal Plan of Care Note [code = 70413-4] Goal Plan of Care Note [code = 58464-7] Goal Plan of Care Note [code = 33207-9] Goal Plan of Care Note [code = 77823-5] Goal Plan of Care Note [code = 83790-0] Goal Plan of Care Note [code = 00539-0] Goal Plan of Care Note [code = 89068-8] Goal Plan of Care Note [code = 04102-3] Goal Plan of Care Note [code = 56612-6] Goal Plan of Care Note [code = 23923-3] Goal Plan of Care Note [code = 15425-6] Goal Plan of Care Note [code = 81554-3] Goal Plan of Care Note [code = 41228-7] Goal Plan of Care Note [code = 97112-7] Goal Plan of Care Note [code = 01349-6] Goal Plan of Care Note [code = 25309-7] Goal Plan of Care Note [code = 64752-5] Goal Plan of Care Note [code = 21833-6] Goal Plan of Care Note [code = 59916-7] Goal Plan of Care Note [code = 36472-3] Goal Plan of Care Note [code = 91144-7] Goal Plan of Care Note [code = 47248-2] Goal Plan of Care Note [code = 56985-2] Goal Plan of Care Note [code = 98727-6] Goal Plan of Care Note [code = 66139-6] Goal Plan of Care Note [code = 43402-2] Goal Plan of Care Note [code = 09274-8] Goal Plan of Care Note [code = 01908-2] Goal Plan of Care Note [code = 86863-7] Goal Plan of Care Note [code = 70254-7] Goal Plan of Care Note [code = 65817-4] Goal Plan of Care Note [code = 87426-3] Goal Plan of Care Note [code = 66616-1] Goal Plan of Care Note [code = 47187-6] Goal Plan of Care Note [code = 69611-1] Goal Plan of Care Note [code = 22328-9] Goal Plan of Care Note [code = 93609-1] Goal Plan of Care Note [code = 15729-3] Goal Plan of Care Note [code = 24404-9] Goal Plan of Care Note [code = 20033-4] Goal Plan of Care Note [code = 70606-9] Goal Plan of Care Note [code = 36491-9] Goal Plan of Care Note [code = 99650-6] Goal Plan of Care Note [code = 39433-8] Goal Plan of Care Note [code = 46769-2] Goal Plan of Care Note [code = 62725-3] Goal Plan of Care Note [code = 99217-3] Goal Plan of Care Note [code = 41758-2] Encounters Start End Encounter Admission Attending Care Care Encounter Source Date/Time Date/Time Type Type Clinicians Facility Department ID 2021-07-15 Outpatient [facility] [id number] [place] 14:49:46 [id number] [facility] 2021-07-13 Outpatient [facility] [id number] [place] 13:18:38 [id number] [facility] 2022-08-07 2022-08-07 Outpatient FOG_Goytia_ AOSM AOSM [id number] [place] 00:00:00 00:00:00 Cody [id number] Ortho pe dic Sports Medicin e 2022-07-28 2022-07-28 Emergency Annita, 1.2.840.1 [id number] Methodi 10:49:00 14:17:[address] 3.430.2.7 Hospit a .3.199560 l .8 2022-07-28 2022-07-28 Emergency Annita, 1.2.840.1 [id number] Methodi 10:49:00 14:17:[address] 3.430.2.7 Hospit a .3.817496 l .8 2022-07-28 2022-07-28 Outpatient R EKATERINA [facility] [id number] Univers 09:00:00 09:20:09 STEFANIA víctor [facility] 2022-07-28 2022-07-28 [facility] 1.2.840.114 [id number] Univers 09:00:00 09:20:09 Visit Stefania Carter SPECIALTY 350.1.13.10 [place] [id number] [facility] [address] 2022-07-28 2022-07-28 Travel 1.2.840.1 1.2.420.899 [id number] Methodi 00:00:00 00:00:[address] 3.430.2.7 0.2.7.3.698 Ho spita .3.436607 084.8 l .8 2022-07-28 2022-07-28 Telephone [facility] 1.2.696.986 [id number] Univers 00:00:00 00:00:00 Stefania Raul SPECIALTY 350.1.13.10 ity of CARE 4.2.7.2.686 [facility] [id number] Ia kush [address] 2022-07-28 2022-07-28 Travel 1.2.840.1 1.2.857.845 [id number] Methodi 00:00:00 00:00:[address] 3.430.2.7 0.2.7.3.698 Ho spita .3.346180 084.8 l .8 2022-07-22 2022-07-23 Emergency X JANE, [facility] ERT [id number] Univers 19:42:00 00:14:00 LISA víctor [facility] 2022-07-22 2022-07-23 Emergency Cacace, TRAUMA 1.2.224.958 [id number] Univers 19:42:00 00:14:00 Lisa Baker [place] 350.1.13.10 [place] [id number] [facility] [address] 2022-07-06 2022-07-06 Outpatient R MARICARMEN [facility] [id number] Univers 16:10:00 16:10:00 STEFANIA ity [facility] 2022-07-04 2022-07-04 Outpatient R [facility] [id number] Univers 15:00:00 15:00:00 ity [facility] 2022-06-30 2022-06-30 Outpatient R [facility] [id number] Univers 09:00:00 09:00:00 ity [facility] 2022-06-29 2022-06-29 [facility] 1.2.840.114 1 [id number] Univers 00:00:00 00:00:00 [facility] 350.1.13.10 it [place] [id number] Ia dical [address] 2022-06-15 2022-06-15 [facility] [id number] Univers 13:20:23 23:59:00 ANDERSON ity [facility] 2022-06-15 2022-06-15 [facility] 1.2.840.114 [id number] Univers 13:20:23 23:59:00 Encounter Anderson TREJO 350.1.13.10 ity of [place] [id number] [facility] [address] 2022-06-15 2022-06-15 [facility] 1.2.840.114 1 [id number] Univers 00:00:00 00:00:00 Dionisio TRANPEC 350.1.13.10 it[place] [id number] [facility] AND LEMUS [address] [facility] 2022-06-15 2022-06-15 Orders Doctor KELLY 1.2.840.114 [id number] Univers 00:00:00 00:00:00 Only Unassigned, AISHA 350.1.13.10 ity of [facility] 4.2.7.2.686 Dany as [id number] [address] 2022-05-30 2022-05-30 Outpatient R [facility] [id number] Univers 15:30:00 15:30:00 ity [facility] 2022-05-04 2022-05-04 Outpatient SFA [facility] 100144- 202 Seth 14:40:00 14:40:00 28768 F Kristian 2022-05-03 2022-05-03 Outpatient [id number] [id number] 00:00:00 00:00:00 Visit 261b-4edf 61b-4edf-8 -8139-75d [id number] [id number] 2022-04-26 2022-04-26 [facility]phone [facility] 1.2.787.533 [id number] Univers 00:00:00 00:00:00 Shermeen PRIMARY 350.1.13.10 i [place] [id number] Ia dical [address] 2022-04-25 2022-04-25 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 114 [id number] Univers 14:00:00 15:08:22 Visit Lex Ochoa PRIMARY 350.1.13.10 [place] [id number] [place] dical [address] [place] 2022-03-16 2022-03-16 Outpatient [id number] 00:00:00 00:00:00 Visit [id number] 2022-02-27 2022-02-27 Outpatient Issa RAMIRO [facility] [id number] Univers 08:00:00 08:00:00 DOROTEO renee [facility] 2022-02-06 2022-02-06 Outpatient R NINA SALGADO [facility] 10 [id number] Univers 10:30:00 10:30:00 NINA SALGADO i [facility] 2022-02-01 2022-02-01 Outpatient [id number]- [id number] 3g0v19-c 00:00:00 00:00:00 Visit fce7-452a ce7-452a-9 -924a-d2a 24a-b4i784 359k1e525 u7q591 2022-01-27 2022-01-27 Outpatient [id number]- [id number] 14va86-n 00:00:00 00:00:00 Visit j6j4-503b 6j7-039f-c -vv2q-l27 a4t-i82w4t y8c217s77 394e27 2022-01-10 2022-01-10 Outpatient 0n26533b- [id number] 1f 49382p-2 00:00:00 00:00:00 Visit 6r10-6c0f o78-5h6o-k -r55s-bjt 06b-baa1f0 8c5iv31w3 fa00b2 2022-01-10 2022-01-10 Orders Doctor ROBIN 1.2.840.114 [id number] Univers 00:00:00 00:00:00 Only Unassigned, AISHA 350.1.13.10 ity of [place] [facility] 4.2.7.2.686 Dany as [id number] [address] 2022-01-07 2022-01-07 Outpatient i196yn41- [id number] f3 59xc34-0 00:00:00 00:00:00 Visit 2661-44e8 661-44e8-8 -9x24-634 a44-523l47 y60ti346p av094v 2021-11-30 2021-11-30 Outpatient 5bm6869v- [id number] 6a f3771p-1 00:00:00 00:00:00 Visit 2454-7390 202-4562-8 -9e33-908 k27-998845 4738x8720 3y1832 2021-11-25 2021-11-25 Outpatient roged089- [id number] ca yzp652-3 00:00:00 00:00:00 Visit 1694-4ca5 694-4ca5-9 -42w0-240 9k2-0631k2 5e9928884 961277 9639-07-26 2021-11-08 Outpatient 96pw8x68- [id number] 42 ab9j85-5 00:00:00 00:00:00 Visit 6vt5-57q3 ce1-48a3-b -b916-6h4 658-7a18e3 3h9773iyr 625efb 2021-06-21 2021-06-21 Outpatient R YARIEL [facility] [id number] Univers 11:00:00 11:00:[address] [facility] 2020-07-12 2020-07-12 Outpatient R LALA, [facility] [id number] Univers 09:30:00 09:30:[address] [facility] 2020-07-01 2020-07-01 [facility] 1.2.840.114 [id number] Univers 00:00:00 00:00:00 Outreach Kirk PRIMARY 350.1.13.10 i ty of Josep CARE 4.2.7.2.686 Danya s PAVILLION [id number] Ia [address] 2020-07-01 2020-07-01 [facility] 1.2.840.114 [id number] 00:00:00 00:00:00 Outreach Kirk PRIMARY 350.1.13.10 [place] CARE 4.2.7.2.686 PAVILLION [id number] [facility] 2020-06-302020-06-30 Outpatient R BELLO, [facility] [id number] Univers 10:40:00 10:40:[address] [facility] 2020-05-06 2020-05-06 Outpatient R ARANGO, [facility] [id number] Univers 11:00:00 11:00:[address] [facility] 2020-03-09 2020-03-09 [facility] 1.2.840.114 [id number] Univers 00:00:00 00:00:00 Ila M PRIMARY 350.1.13.10 it [place] [id number] [facility] [address] 2020-03-09 2020-03-09 [facility] 1.2.840.114 [id number] 133 00:00:00 00:00:00 [place] M PRIMARY 350.1.13.10 CARE 4.2.7.2.686 PAVILLION [id number] [facility] 2020-01-27 2020-01-27 [facility] 1.2.840.114 [id number] Univers 00:00:00 00:00:00 [place] M PRIMARY 350.1.13.10 it y [place] [id number] [facility] [address] 2020-01-27 2020-01-27 [facility] 1.2.840.114 [id number] 00:00:00 00:00:00 [place] M PRIMARY 350.1.13.10 CARE 4.2.7.2.686 PAVILLION [id number] [facility] 2019-12-28 2019-12-28 Iam [facility] 1.2.840.114 [id number] Univers 00:00:00 00:00:00 Lynda PRIMARY 350.1.13.10 it y of [place] [id number] [facility] [address] 2019-12-28 2019-12-28 I[facility] 1.2.840.114 [id number] 00:00:00 00:00:00 Lynda PRIMARY 350.1.13.10 CARE 4.2.7.2.686 PAVILLION [id number] [facility] 2019-12-25 2019-12-25 [facility]patient [facility] [id number] Univers 13:30:00 13:30:[address] [facility] 2019-12-24 2019-12-24 Iam [facility] 1.2.840.114 [id number] [facility] 00:00:00 00:00:00 Lynda PRIMARY 350.1.13.10 it [place] [id number] [address] 2019-12-24 2019-12-24 Iam [facility] 1.2.840.114 [id number] 00:00:00 00:00:00 Lynda PRIMARY 350.1.13.10 CARE 4.2.7.2.686 PAVILLION [id number] [facility] 2019-12-18 2019-12-18 [facility] Issa [facility] [id number] Univers 08:30:00 08:30:00 [facility] 2019-12-12 2019-12-12 Iam [facility] 1.2.840.114 [id number] [facility] 00:00:00 00:00:00 Juan Carlos J PRIMARY 350.1.13.10 it y of [place] [id number] [address] 2019-12-12 2019-12-12 Iam [facility] 1.2.840.114 [id number] 00:00:00 00:00:00 Juan Carlos J PRIMARY 350.1.13.10 CARE 4.2.7.2.686 PAVILLION [id number] [facility] 2019-12-10 2019-12-10 Outpatient Issa [facility] [id number] Univers 11:00:00 11:00:00 [facility] 2019-12-09 2019-12-09 Iam [facility] 1.2.840.114 [id number] Univers 00:00:00 00:00:00 Juan Carlos J PRIMARY 350.1.13.10 it y of [place]2.[place] [id number] [facility] [address] 2019-12-09 2019-12-09 [facility] 1.2.840.114 [id number] [facility] 00:00:00 00:00:00 Ila M PRIMARY 350.1.13.10 it y of [place]2.[place] [id number] [facility] [address] 2019-12-09 2019-12-09 [facility] ArangoCentinela [facility] 1.2.840.114 [id number] 474 00:00:00 00:00:00 Juan Carlos J PRIMARY 350.1.13.10 CARE 4.2.7.2.686 PAVILLION [id number] [facility] 2019-12-09 2019-12-09 [facility] 1.2.840.114 [id number] 00:00:00 00:00:00 Ila M PRIMARY 350.1.13.10 CARE 4.2.7.2.686 PAVILLION [id number] [facility] 2019-12-04 2019-12-04 [facility] 1.2.840.114 [id number] [facility] 00:00:00 00:00:00 Lynda PRIMARY 350.1.13.10 it y of [place]2.[place] [phone] [facility] [address] 2019-12-04 2019-12-04 [facility] 1.2.840.114 [id number] 00:00:00 00:00:00 Lynda PRIMARY 350.1.13.10 CARE 4.2.7.2.686 PAVILLION [id number] [facility] 2019-12-02 2019-12-02 [facility] 1.2.840.114 [id number] [facility] 09:06:15 10:45:17 Visit Juan Carlos J PRIMARY 350.1.13.10 it y of [place]2.[place] [id number] [address] 2019-12-02 2019-12-02 Office [facility] 1.2.840.114 [id number] 213 09:06:15 10:45:17 Visit Juan Carlos J PRIMARY 350.1.13.10 CARE 4.2.7.2.686 PAVILLION [id number] [facility] 2019-12-02 2019-12-02 Outpatient R DOROTHEA [facility] [id number] Univers 09:30:00 09:30:00 [facility] 2019-12-02 2019-12-02 Telephone [facility] 1.2.840.114 [id number] Univers 00:00:00 00:00:00 Juan Carlos J PRIMARY 350.1.13.10 it y of [place] [id number] [address] 2019-12-01 2019-12-01 [facility] [id number] Univers 10:00:00 10:00:[address] [facility] 2019-10-15 2019-10-15 Outpatient R LALA [facility] [id number] Univers 13:30:00 13:30:[address] [facility] 2019-10-09 2019-10-09 Refcarlitos [facility] 1.2.840.114 [id number] Univers 00:00:00 00:00:00 Lynda PRIMARY 350.1.13.10 it y of [place] [id number] [address] 2019-10-08 2019-10-08 Telephone [facility] 1.2.840.114 [id number] Univers 00:00:00 00:00:00 Lynda PRIMARY 350.1.13.10 it y of [place]2.7[place]2.[place] [id number] [address] 2019-10-06 2019-10-06 Refill [facility] 1.2.840.114 [id number] Univers 00:00:00 00:00:00 Ila Pelletier PRIMARY 350.1.13.10 it y of [place]2.7.2.[place] [id number] [facility] [address] 2019-09-30 2019-09-30 Telemedici [facility] 1.2.840.114 [id number] Univers 09:56:40 10:26:40 ne Visit Ila Pelletier PRIMARY 350.1.13.10 i ty of C[place] 4.2.7.2.[place] [id number] [facility] [address] 2019-09-30 2019-09-30 Outpatient [facility]a [facility] [id number] Univers 09:30:00 09:30:00 [facility] 2019-09-22 2019-09-22 Iam [facility] 1.2.840.114 [id number] [facility] 00:00:00 00:00:00 Lynda PRIMARY 350.1.13.10 it y of [place]2.[place] [id number] [address] 2019-09-02 2019-09-04 [facility] 1.2.840.114 [id number] Univers 07:24:21 09:05:02 ne Visit Lynda PRIMARY 350.1.13.10 i ty of CARE 4.2.7.2.[place] [id number] [address] 2019-09-04 2019-09-04 Iam [facility] 1.2.840.114 [id number] Univers 00:00:00 00:00:00 Lynda PRIMARY 350.1.13.10 it y of [place] 4.2.7.2.[place] [id number] [address] 2019-09-02 2019-09-02 Outpatient [facility] [id number] Univers 11:00:00 11:00:00 LYNDA renee [facility] 2019-09-01 2019-09-01 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 [facility]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 1.2.840.114 [id number] Univers 08:58:21 09:13:21 Visit Arango, Juan Carlos [facility] 350.1.13.10 ity of CLINICS [place].2.7.2.[place] [id number] [address] 2019-09-01 2019-09-01 Outpatient R DOROTHEA [facility] [id number] Univers 09:00:00 09:00:00 JUAN CARLOS itshelley [facility] 2019-08-24 2019-08-24 Refcarlitos [facility] 1.2.840.114 [id number] Univers 00:00:00 00:00:00 Lynda PRIMARY 350.1.13.10 it y of [place]2.7.2.[place] [id number] [address] 2019-08-08 2019-08-08 Outpatient R EDIS [facility] [id number] Univers 14:20:00 14:20:00 [facility] 2019-08-07 2019-08-07 Telephone [facility] 1.2.840.114 [id number] Univers 00:00:00 00:00:00 Lynda PRIMARY 350.1.13.10 it y of C[place]2.7.2.[place] [id number] [address] 2019-08-07 2019-08-07 Telephone [facility] 1.2.255.596 [id number] Univers 00:00:00 00:00:00 Deepam PRIMARY 350.1.13.10 it y of [place]2.7.2.[place] [id number] [address] 2019-08-06 2019-08-06 [facility] 1.2.840.114 [id number] Univers 00:00:00 00:00:00 Lynda PRIMARY 350.1.13.10 it y of C[place]2.7.2.[place] [id number] [address] 2019-08-05 2019-08-05 Telephone [facility] 1.2.628.324 [id number] Univers 00:00:00 00:00:00 Deepam PRIMARY 350.1.13.10 it y of C[place].2.7.2.[place] [id number] [facility] [address] 2019-08-01 2019-08-01 Outpatient R NOAH [facility] [id number] Univers 15:10:00 15:10:00 PAULINA ity of [facility] 2019-08-01 2019-08-01 Telemedici Mick Jaime [facility] 1.2.840. 114 [id number] Univers 13:53:58 14:23:58 ne Visit Paulina Zamora K PRIMARY 350.1.13. 10 ity of C[place]2.7.2.[place] [id number] [address] 2019-08-01 2019-08-01 [facility] 1.2.840.114 [id number] Univers 00:00:00 00:00:00 Lynda PRIMARY 350.1.13.10 it y of C[place]2.7.2.[place] [id number] [address] 2019-08-01 2019-08-01 [facility]phone [facility] 1.2.840.114 [id number] Univers 00:00:00 00:00:00 Lynda PRIMARY 350.1.13.10 it y of CARE [place]2.7.2.[place] [id number] [address] 2019-07-28 2019-07-28 [facility] 1.2.840.114 [id number] Univers 00:00:00 00:00:00 Lynda PRIMARY 350.1.13.10 it y of CARE 4.2.7.2.[place] [id number] [address] 2019-07-21 2019-07-21 Telephone [facility] 1.2.840.114 [id number] Univers 00:00:00 00:00:00 Lynda PRIMARY 350.1.13.10 it y of CARE 4.2.7.2.[place] [id number] [address] 2019-07-18 2019-07-18 Iam [facility] 1.2.840.114 [id number] Univers 00:00:00 00:00:00 Lynda PRIMARY 350.1.13.10 it y of CARE 4.2.7.2.[place] [id number] [address] 2019-07-17 2019-07-17 [facility] 1.2.840.114 [id number] Univers 00:00:00 00:00:00 Lynda PRIMARY 350.1.13.10 it y of CARE 4.2.7.2.[place] [id number] [address] 2019-07-16 2019-07-16 [facility] 1.2.840.114 [id number] Univers 00:00:00 00:00:00 Lynda PRIMARY 350.1.13.10 it y of CARE 4.2.7.2.[place] [id number] [address] 2019-07-14 2019-07-14 Telephone [facility] 1.2.840.114 [id number] Univers 00:00:00 00:00:00 Lynda PRIMARY 350.1.13.10 it y of CARE 4.2.7.2.[place] [id number] [address] 2019-07-14 2019-07-14 [facility] 1.2.840.114 [id number] Univers 00:00:00 00:00:00 Lynda PRIMARY 350.1.13.10 it y of CARE 4.2.7.2.[place] [id number] [address] 2019-07-08 2019-07-08 Telemedici [facility] 1.2.840.114 [id number] Univers 08:06:45 08:36:45 ne Visit Lynda PRIMARY 350.1.13.10 i ty of CARE [place].2.7.2.[place] [id number] [address] 2019-07-08 2019-07-08 Outpatient [facility] [id number] Univers 08:30:00 08:30:00 LYNDA ity [facility] 2019-07-06 2019-07-06 Nurse Jaspreet ROBIN 1.2.840.114 [id number] Univers 00:00:00 00:00:00 Triage Mariangel LEONARD 350.1.13.10 i [facility] 4.2.7.2.686 Dany as [id number] [address] 2019-07-06 2019-07-06 Telephone [facility] 1.2.840.114 [id number] Univers 00:00:00 00:00:00 Lynda PRIMARY 350.1.13.10 it y of C[place]2.7.2.[place] [id number] [address] 2019-06-24 2019-06-24 Refill [facility] 1.2.840.114 [id number] Univers 00:00:00 00:00:00 Lynda PRIMARY 350.1.13.10 it y of CARE 4[place]2.7.2.[place] [id number] [address] 2019-05-13 2019-05-13 Telephone [facility] 1.2.840.114 [id number] Univers 00:00:00 00:00:00 Lynda PRIMARY 350.1.13.10 it y of CARE 4[place]2.7.2.[place] [id number] [address] 2019-05-13 2019-05-13 Telephone [facility] 1.2.643.800 [id number] Univers 00:00:00 00:00:00 Christopher PRIMARY 350.1.13.10 ity of C[place]2.7.2.[place] [id number] [address] 2019-04-04 2019-04-04 Outpatient Issa DEAN [facility] [id number] Univers 14:50:00 15:10:33 BRADEN ity [facility] 2018-12-30 2018-12-30 Telephone [facility] 1.2.950.410 [id number] Univers 00:00:00 00:00:00 Jasson-Monika PRIMARY 350.1.13.10 ity of Thi CARE 4.2.7.2.686 Zia HERMOSILLO [id number] Ia dical [address] 2018-11-25 2018-11-25 [facility] Arturo Rowley 1.2.840.114 [id number] [facility] 06:56:56 23:59:00 Encounter Aparna Mathur [facility] 350.1.13.10 ity of Unit 4.2.7.2.686 Zia ward [id number] [facility] [address] 2017-09-05 2017-10-23 Outpatient [facility] [id number] [address] [place] 00:00:00 00:00:00 [facility] 2017-10-18 2017-10-18 Outpatient [facility] [id number] [address] [place] 21:09:01 21:09:01 [facility] 2016-04-27 2016-09-27 Outpatient [facility] [id number] [address] [place] 00:00:00 00:00:00 [facility] Results Test Description Test Time Test Comments Results Result Comments Source COMP. METABOLIC PANEL (97096) 2022-07-23 02:32:10 Test Item Value Reference Range Interpretation Comme nts NA (test code = 5321649032) 139 mmol/L 135-145 K (test code = 4103893737) 3.4 mmol/L 3.5-5.0 L CL (test code = 1890996862) 103 mmol/L 98-108 CO2 TOTAL (test code = 8255028308) 28 mmol/L 23-31 AGAP (test code = 0315679942) 8 2-16 BUN (test code = 2002322417) 9 mg/dL 7-23 GLUCOSE (test code = 7176312410) 77 mg/dL 70-110 CREATININE (test code = 0.82 mg/dL 0.50-1.04 4549723569) TOTAL BILI (test code = 0.4 mg/dL 0.1-1.9 4862869936) CALCIUM (test code = 5031623875) 9.0 mg/dL 8.6-10.6 T PROTEIN (test code = 5036343337) 7.3 g/dL 6.3-8.2 ALBUMIN (test code = 3597621953) 4.3 g/dL 3.5-5.0 ALK PHOS (test code = 7341975606) 98 U/L 34-122 ALTv (test code = 1742-6) 20 U/L 5-35 AST(SGOT) (test code = 9607619882) 23 U/L 13-40 eGFR (test code = 8456609111) 75.4 mL/min/1.73m2 JAQUELIN (test code = JAQUELIN) [...] tests). Lab Interpretation (test code = Abnormal 45627-1) [facility] WITH [id number] 02:21:48 Test Item Value Reference Range Interpretation Comments WBC (test code = 10.63 See_Comment [Automated 3862-2) message] The sy stem which generated this result transmitted reference range : 4.30 - 11.10 10*3/?L. The reference range was not used to interpret this result as normal/abnormal . RBC (test code = 4.30 See_Comment [Automated 789-8) message] The sy stem which generated this [...] RDW-SD (test code = 47.6 fL 39.0-49.9 58821-3) RDW-CV (test code = 15.1 % 12.0-15.5 788-0) PLT (test code = 341 See_Comment [Automated 777-3) message] The sy stem which generated this result transmitted reference range : 166 - 358 10*3/ ?L. The reference r shahana was not used to interpret this result as normal/abnormal . MPV (test code = 9.8 fL 9.5-12.9 62785-1) NRBC/100 WBC (test 0.0 See_Comment [Automat ed code = 9085664211) message] The system which generated this result transmitted reference range : 0.0 - 10.0 /100 WBCs. The refer ence range was not u sed to interpret th is result as normal/abnormal . NRBC x10^3 (test code See_Comment [Auto mated = 6478708006) message] The s ystem which generated this result transmitted reference range : 10*3/?L. The reference range was not used to interpret this result as normal/abnormal . GRAN MAT (NEUT) % 67.0 % (test code = 770-8) IMM GRAN % (test code 0.30 % = 8753245385) LYMPH % (test code = 24.5 % 736-9) MONO % (test code = 6.9 % 5905-5) EOS % (test code = 0.7 % 713-8) BASO % (test code = 0.6 % 706-2) GRAN MAT x10^3(ANC) 7.14 10*3/uL 1.88-7.09 H (test code = 6845961952) IMM GRAN x10^3 (test 0.03 10*3/uL 0.00-0.06 code = 2198426545) LYMPH x10^3 (test code 2.60 10*3/uL 1.32-3.29 = 731-0) MONO x10^3 (test code 0.73 10*3/uL 0.33-0.92 = 742-7) EOS x10^3 (test code = 0.07 10*3/uL 0.03-0.39 711-2) BASO x10^3 (test code 0.06 10*3/uL 0.01-0.07 = 704-7) Lab Interpretation Abnormal (test code = 38019-4) [facility] [id number] 00:00:00 Test Item Value Reference Range Interpretation Comments GLUCOSE (test code = 2217) 93 MG/DL BUN (test code = 2208) 10 MG/DL CREATININE (test code = 2214) 0.81 MG/DL eGFR AMER. (test code 103 ML/MIN/1.73 = 34780) eGFR NON- AMER. (test 89 ML/MIN/1.73 code = 78309) CALC BUN/CREAT (test code = 12 RATIO [...] code = 2219) 22 U/L COMPREHENSIVE METABOLIC [id number] 00:00:00 Test Item Value Reference Range Interpretation Comments GLUCOSE (test code = 2217) 93 MG/DL BUN (test code = 2208) 10 MG/DL CREATININE (test code = 2214) 0.81 MG/DL eGFR AMER. (test code 103 ML/MIN/1.73 = 76047) eGFR NON- AMER. (test 89 ML/MIN/1.73 code = 20401) CALC BUN/CREAT (test code = 12 RATIO [...] code = 2219) 22 U/L CBC W/AUTO [id number] 00:00:00 Test Item Value Reference Range Interpretation [...] NUCLEATED RBCS (test code = 0.00 K/UL 32425) CBC W/AUTO [id number] 00:00:00 Test Item Value Reference Range Interpretation [...] NUCLEATED RBCS (test code = 0.00 K/UL 73394) CBC W/AUTO [id number] 00:00:00 Test Item Value Reference Range Interpretation [...] NUCLEATED RBCS (test code = 0.00 K/UL 32665) LIPID [id number] 00:00:00 Test Item Value Reference Range Interpretation Comments CHOLESTEROL (test code = 2210) 328 MG/DL TRIGLYCERIDES (test code = 2232) 614 MG/DL HDL CHOLESTEROL (test code = 42 MG/DL 2220) CALC LDL CHOL (test code = 2237) (NOTE) MG/DL RISK RATIO LDL/HDL (test code = (NOTE) RATIO 2238) LIPID [id number] 00:00:00 Test Item Value Reference Range Interpretation Comments CHOLESTEROL (test code = 2210) 328 MG/DL TRIGLYCERIDES (test code = 2232) 614 MG/DL HDL CHOLESTEROL (test code = 42 MG/DL 2220) CALC LDL CHOL (test code = 2237) (NOTE) MG/DL RISK RATIO LDL/HDL (test code = (NOTE) RATIO 2238) [id number] 00:00:00 Test Item Value Reference Range Interpretation Comments TSH, THIRD GENERATION (test code 4.310 UIU/ML = 2821) [id number] 00:00:00 Test Item Value Reference Range Interpretation Comments TSH, THIRD GENERATION (test code 4.310 UIU/ML = 2821) [id number] 00:00:00 Test Item Value Reference Range Interpretation Comments TSH, THIRD GENERATION (test code 4.310 UIU/ML = 2821) HEMOGLOBIN [id number] 00:00:00 Test Item Value Reference Range Interpretation Comments HEMOGLOBIN A1c (test code = 88769) 5.4 % HEMOGLOBIN [id number] 00:00:00 Test Item Value Reference Range Interpretation Comments HEMOGLOBIN A1c (test code = 71391) 5.4 % HEMOGLOBIN [id number] 00:00:00 Test Item Value Reference Range Interpretation Comments HEMOGLOBIN A1c (test code = 82732) 5.4 % [id number] 00:00:00 Test Item Value Reference Range Interpretation Comments LITHIUM (test code = 2039) 0.63 MEQ/L [id number] 00:00:00 Test Item Value Reference Range Interpretation Comments LITHIUM (test code = 2039) 0.63 MEQ/L [id number] 00:00:00 Test Item Value Reference Range Interpretation Comments LITHIUM (test code = 2039) 0.63 MEQ/L COMPREHENSIVE METABOLIC [id number] 00:00:00 Test Item Value Reference Range Interpretation Comments GLUCOSE (test code = 2217) 93 MG/DL BUN (test code = 2208) 10 MG/DL CREATININE (test code = 2214) 0.81 MG/DL eGFR AMER. (test code 103 ML/MIN/1.73 = 96013) eGFR NON- AMER. (test 89 ML/MIN/1.73 code = 93212) CALC BUN/CREAT (test code = 12 RATIO [...] code = 2219) 22 U/L COMPREHENSIVE METABOLIC [id number] 00:00:00 Test Item Value Reference Range Interpretation Comments GLUCOSE (test code = 2217) 93 MG/DL BUN (test code = 2208) 10 MG/DL CREATININE (test code = 2214) 0.81 MG/DL eGFR AMER. (test code 103 ML/MIN/1.73 = 47414) eGFR NON- AMER. (test 89 ML/MIN/1.73 code = 15309) CALC BUN/CREAT (test code = 12 RATIO [...] BILIRUBIN, TOTAL (test code = <0.2 MG/DL 7) ALKALINE PHOSPHATASE (test 104 U/L code = 2204) AST (test code = 2218) 24 U/L ALT (test code = 2219) 22 U/L CBC W/AUTO [id number] 00:00:00 Test Item Value Reference Range Interpretation [...] NUCLEATED RBCS (test code = 0.00 K/UL 01820) CBC W/AUTO [id number] 00:00:00 Test Item Value Reference Range Interpretation [...] NUCLEATED RBCS (test code = 0.00 K/UL 61705) CBC W/AUTO [id number] 00:00:00 Test Item Value Reference Range Interpretation [...] NUCLEATED RBCS (test code = 0.00 K/UL 81513) LIPID [id number] 00:00:00 Test Item Value Reference Range Interpretation Comments CHOLESTEROL (test code = 2210) 328 MG/DL TRIGLYCERIDES (test code = 2232) 614 MG/DL HDL CHOLESTEROL (test code = 42 MG/DL 2220) CALC LDL CHOL (test code = 2237) (NOTE) MG/DL RISK RATIO LDL/HDL (test code = (NOTE) RATIO 2238) LIPID [id number] 00:00:00 Test Item Value Reference Range Interpretation Comments CHOLESTEROL (test code = 2210) 328 MG/DL TRIGLYCERIDES (test code = 2232) 614 MG/DL HDL CHOLESTEROL (test code = 42 MG/DL 2220) CALC LDL CHOL (test code = 2237) (NOTE) MG/DL RISK RATIO LDL/HDL (test code = (NOTE) RATIO 2238) [id number] 00:00:00 Test Item Value Reference Range Interpretation Comments TSH, THIRD GENERATION (test code 4.310 UIU/ML = 2821) [id number] 00:00:00 Test Item Value Reference Range Interpretation Comments TSH, THIRD GENERATION (test code 4.310 UIU/ML = 2821) [id number] 00:00:00 Test Item Value Reference Range Interpretation Comments TSH, THIRD GENERATION (test code 4.310 UIU/ML = 2821) HEMOGLOBIN [id number] 00:00:00 Test Item Value Reference Range Interpretation Comments HEMOGLOBIN A1c (test code = 35380) 5.4 % HEMOGLOBIN [id number] 00:00:00 Test Item Value Reference Range Interpretation Comments HEMOGLOBIN A1c (test code = 10259) 5.4 % HEMOGLOBIN [id number] 00:00:00 Test Item Value Reference Range Interpretation Comments HEMOGLOBIN A1c (test code = 78130) 5.4 % [id number] 00:00:00 Test Item Value Reference Range Interpretation Comments LITHIUM (test code = 2039) 0.63 MEQ/L [id number] 00:00:00 Test Item Value Reference Range Interpretation Comments LITHIUM (test code = 2039) 0.63 MEQ/L [id number] 00:00:00 Test Item Value Reference Range Interpretation Comments LITHIUM (test code = 2039) 0.63 MEQ/L COMPREHENSIVE METABOLIC [id number] 00:00:00 Test Item Value Reference Range Interpretation Comments GLUCOSE (test code = 2217) 93 MG/DL BUN (test code = 2208) 10 MG/DL CREATININE (test code = 2214) 0.81 MG/DL eGFR AMER. (test code 103 ML/MIN/1.73 = 18546) eGFR NON- AMER. (test 89 ML/MIN/1.73 code = 38179) CALC BUN/CREAT (test code = 12 RATIO [...] code = 2219) 22 U/L CBC W/AUTO [id number] 00:00:00 Test Item Value Reference Range Interpretation [...] NUCLEATED RBCS (test code = 0.00 K/UL 79937) CBC W/AUTO [id number] 00:00:00 Test Item Value Reference Range Interpretation [...] NUCLEATED RBCS (test code = 0.00 K/UL 21220) LIPID [id number] 00:00:00 Test Item Value Reference Range Interpretation Comments CHOLESTEROL (test code = 2210) 328 MG/DL TRIGLYCERIDES (test code = 2232) 614 MG/DL HDL CHOLESTEROL (test code = 42 MG/DL 2220) CALC LDL CHOL (test code = 2237) (NOTE) MG/DL RISK RATIO LDL/HDL (test code = (NOTE) RATIO 2238) [id number] 00:00:00 Test Item Value Reference Range Interpretation Comments TSH, THIRD GENERATION (test code 4.310 UIU/ML = 2821) [id number] 00:00:00 Test Item Value Reference Range Interpretation Comments TSH, THIRD GENERATION (test code 4.310 UIU/ML = 2821) HEMOGLOBIN [id number] 00:00:00 Test Item Value Reference Range Interpretation Comments HEMOGLOBIN A1c (test code = 97880) 5.4 % HEMOGLOBIN [id number] 00:00:00 Test Item Value Reference Range Interpretation Comments HEMOGLOBIN A1c (test code = 57789) 5.4 % [id number] 00:00:00 Test Item Value Reference Range Interpretation Comments LITHIUM (test code = 203) 0.63 MEQ/L [id number] 00:00:00 Test Item Value Reference Range Interpretation Comments LITHIUM (test code = 203) 0.63 MEQ/L COMPREHENSIVE METABOLIC [id number] 00:00:00 Test Item Value Reference Range Interpretation Comments GLUCOSE (test code = 2217) 93 MG/DL BUN (test code = 2208) 10 MG/DL CREATININE (test code = 2214) 0.81 MG/DL eGFR AMER. (test code 103 ML/MIN/1.73 = 36553) eGFR NON- AMER. (test 89 ML/MIN/1.73 code = 60532) CALC BUN/CREAT (test code = 12 RATIO [...] code = 2219) 22 U/L COMPREHENSIVE METABOLIC [id number] 00:00:00 Test Item Value Reference Range Interpretation Comments GLUCOSE (test code = 2217) 93 MG/DL BUN (test code = 2208) 10 MG/DL CREATININE (test code = 2214) 0.81 MG/DL eGFR AMER. (test code 103 ML/MIN/1.73 = 27164) eGFR NON- AMER. (test 89 ML/MIN/1.73 code = 23424) CALC BUN/CREAT (test code = 12 RATIO [...] code = 2219) 22 U/L CBC W/AUTO [id number] 00:00:00 Test Item Value Reference Range Interpretation [...] NUCLEATED RBCS (test code = 0.00 K/UL 10719) CBC W/AUTO [id number] 00:00:00 Test Item Value Reference Range Interpretation [...] NUCLEATED RBCS (test code = 0.00 K/UL 51757) CBC W/AUTO [id number] 00:00:00 Test Item Value Reference Range Interpretation [...] NUCLEATED RBCS (test code = 0.00 K/UL 58006) LIPID [id number] 00:00:00 Test Item Value Reference Range Interpretation Comments CHOLESTEROL (test code = 2210) 328 MG/DL TRIGLYCERIDES (test code = 2232) 614 MG/DL HDL CHOLESTEROL (test code = 42 MG/DL 2220) CALC LDL CHOL (test code = 2237) (NOTE) MG/DL RISK RATIO LDL/HDL (test code = (NOTE) RATIO 2238) LIPID [id number] 00:00:00 Test Item Value Reference Range Interpretation Comments CHOLESTEROL (test code = 2210) 328 MG/DL TRIGLYCERIDES (test code = 2232) 614 MG/DL HDL CHOLESTEROL (test code = 42 MG/DL 2220) CALC LDL CHOL (test code = 2237) (NOTE) MG/DL RISK RATIO LDL/HDL (test code = (NOTE) RATIO 2238) [id number] 00:00:00 Test Item Value Reference Range Interpretation Comments TSH, THIRD GENERATION (test code 4.310 UIU/ML = 2821) [id number] 00:00:00 Test Item Value Reference Range Interpretation Comments TSH, THIRD GENERATION (test code 4.310 UIU/ML = 2821) [id number] 00:00:00 Test Item Value Reference Range Interpretation Comments TSH, THIRD GENERATION (test code 4.310 UIU/ML = 2821) HEMOGLOBIN [id number] 00:00:00 Test Item Value Reference Range Interpretation Comments HEMOGLOBIN A1c (test code = 08830) 5.4 % HEMOGLOBIN [id number] 00:00:00 Test Item Value Reference Range Interpretation Comments HEMOGLOBIN A1c (test code = 49799) 5.4 % HEMOGLOBIN [id number] 00:00:00 Test Item Value Reference Range Interpretation Comments HEMOGLOBIN A1c (test code = 68320) 5.4 % [id number] 00:00:00 Test Item Value Reference Range Interpretation Comments LITHIUM (test code = 2039) 0.63 MEQ/L [id number] 00:00:00 Test Item Value Reference Range Interpretation Comments LITHIUM (test code = 2039) 0.63 MEQ/L [id number] 00:00:00 Test Item Value Reference Range Interpretation Comments LITHIUM (test code = 2039) 0.63 MEQ/L COMPREHENSIVE METABOLIC [id number] 00:00:00 Test Item Value Reference Range Interpretation Comments GLUCOSE (test code = 2217) 93 MG/DL BUN (test code = 2208) 10 MG/DL CREATININE (test code = 2214) 0.81 MG/DL eGFR AMER. (test code 103 ML/MIN/1.73 = 21994) eGFR NON- AMER. (test 89 ML/MIN/1.73 code = 65544) CALC BUN/CREAT (test code = 12 RATIO [...] code = 2219) 22 U/L COMPREHENSIVE METABOLIC [id number] 00:00:00 Test Item Value Reference Range Interpretation Comments GLUCOSE (test code = 2217) 93 MG/DL BUN (test code = 2208) 10 MG/DL CREATININE (test code = 2214) 0.81 MG/DL eGFR AMER. (test code 103 ML/MIN/1.73 = 61741) eGFR NON- AMER. (test 89 ML/MIN/1.73 code = 77508) CALC BUN/CREAT (test code = 12 RATIO [...] code = 2219) 22 U/L CBC W/AUTO [id number] 00:00:00 Test Item Value Reference Range Interpretation [...] NUCLEATED RBCS (test code = 0.00 K/UL 24127) CBC W/AUTO [id number] 00:00:00 Test Item Value Reference Range Interpretation [...] NUCLEATED RBCS (test code = 0.00 K/UL 44806) CBC W/AUTO [id number] 00:00:00 Test Item Value Reference Range Interpretation [...] NUCLEATED RBCS (test code = 0.00 K/UL 02731) LIPID [id number] 00:00:00 Test Item Value Reference Range Interpretation Comments CHOLESTEROL (test code = 2210) 328 MG/DL TRIGLYCERIDES (test code = 2232) 614 MG/DL HDL CHOLESTEROL (test code = 42 MG/DL 2220) CALC LDL CHOL (test code = 2237) (NOTE) MG/DL RISK RATIO LDL/HDL (test code = (NOTE) RATIO 2238) LIPID [id number] 00:00:00 Test Item Value Reference Range Interpretation Comments CHOLESTEROL (test code = 2210) 328 MG/DL TRIGLYCERIDES (test code = 2232) 614 MG/DL HDL CHOLESTEROL (test code = 42 MG/DL 2220) CALC LDL CHOL (test code = 2237) (NOTE) MG/DL RISK RATIO LDL/HDL (test code = (NOTE) RATIO 2238) [id number] 00:00:00 Test Item Value Reference Range Interpretation Comments TSH, THIRD GENERATION (test code 4.310 UIU/ML = 2821) [id number] 00:00:00 Test Item Value Reference Range Interpretation Comments TSH, THIRD GENERATION (test code 4.310 UIU/ML = 2821) [id number] 00:00:00 Test Item Value Reference Range Interpretation Comments TSH, THIRD GENERATION (test code 4.310 UIU/ML = 2821) HEMOGLOBIN [id number] 00:00:00 Test Item Value Reference Range Interpretation Comments HEMOGLOBIN A1c (test code = 79374) 5.4 % HEMOGLOBIN [id number] 00:00:00 Test Item Value Reference Range Interpretation Comments HEMOGLOBIN A1c (test code = 39206) 5.4 % HEMOGLOBIN [id number] 00:00:00 Test Item Value Reference Range Interpretation Comments HEMOGLOBIN A1c (test code = 92961) 5.4 % [id number] 00:00:00 Test Item Value Reference Range Interpretation Comments LITHIUM (test code = 2039) 0.63 MEQ/L [id number] 00:00:00 Test Item Value Reference Range Interpretation Comments LITHIUM (test code = 2039) 0.63 MEQ/L [id number] 00:00:00 Test Item Value Reference Range Interpretation Comments LITHIUM (test code = 2039) 0.63 MEQ/L COMPREHENSIVE METABOLIC [id number] 00:00:00 Test Item Value Reference Range Interpretation Comments GLUCOSE (test code = 2217) 93 MG/DL BUN (test code = 2208) 10 MG/DL CREATININE (test code = 2214) 0.81 MG/DL eGFR AMER. (test code 103 ML/MIN/1.73 = 19780) eGFR NON- AMER. (test 89 ML/MIN/1.73 code = 11164) CALC BUN/CREAT (test code = 12 RATIO 2235) SODIUM (test code = 2231) 140 MEQ/L POTASSIUM (test code = 2228) 4.5 MEQ/L CHLORIDE (test code = 2215) 101 MEQ/L CARBON DIOXIDE (test code = 27 MEQ/L 220) CALCIUM (test code = 2209) 10.4 MG/DL PROTEIN, TOTAL (test code = 7.9 G/DL 222) ALBUMIN (test code = 2201) 5.0 G/DL CALC GLOBULIN (test code = 2.9 G/DL 2240) CALC A/G RATIO (test code = 1.7 RATIO 2234) BILIRUBIN, TOTAL (test code = <0.2 MG/DL 220) ALKALINE PHOSPHATASE (test 104 U/L code = 2204) AST (test code = 2218) 24 U/L ALT (test code = 2219) 22 U/L COMPREHENSIVE METABOLIC [id number] 00:00:00 Test Item Value Reference Range Interpretation Comments GLUCOSE (test code = 2217) 93 MG/DL BUN (test code = 2208) 10 MG/DL CREATININE (test code = 2214) 0.81 MG/DL eGFR AMER. (test code 103 ML/MIN/1.73 = 98013) eGFR NON- AMER. (test 89 ML/MIN/1.73 code = 37953) CALC BUN/CREAT (test code = 12 RATIO [...] code = 2219) 22 U/L CBC W/AUTO [id number] 00:00:00 Test Item Value Reference Range Interpretation [...] NUCLEATED RBCS (test code = 0.00 K/UL 30349) CBC W/AUTO [id number] 00:00:00 Test Item Value Reference Range Interpretation [...] NUCLEATED RBCS (test code = 0.00 K/UL 39338) CBC W/AUTO [id number] 00:00:00 Test Item Value Reference Range Interpretation [...] NUCLEATED RBCS (test code = 0.00 K/UL 39655) LIPID [id number] 00:00:00 Test Item Value Reference Range Interpretation Comments CHOLESTEROL (test code = 2210) 328 MG/DL TRIGLYCERIDES (test code = 2232) 614 MG/DL HDL CHOLESTEROL (test code = 42 MG/DL 2220) CALC LDL CHOL (test code = 2237) (NOTE) MG/DL RISK RATIO LDL/HDL (test code = (NOTE) RATIO 2238) LIPID [id number] 00:00:00 Test Item Value Reference Range Interpretation Comments CHOLESTEROL (test code = 2210) 328 MG/DL TRIGLYCERIDES (test code = 2232) 614 MG/DL HDL CHOLESTEROL (test code = 42 MG/DL 2220) CALC LDL CHOL (test code = 2237) (NOTE) MG/DL RISK RATIO LDL/HDL (test code = (NOTE) RATIO 2238) [id number] 00:00:00 Test Item Value Reference Range Interpretation Comments TSH, THIRD GENERATION (test code 4.310 UIU/ML = 2821) [id number] 00:00:00 Test Item Value Reference Range Interpretation Comments TSH, THIRD GENERATION (test code 4.310 UIU/ML = 2821) [id number] 00:00:00 Test Item Value Reference Range Interpretation Comments TSH, THIRD GENERATION (test code 4.310 UIU/ML = 2821) HEMOGLOBIN [id number] 00:00:00 Test Item Value Reference Range Interpretation Comments HEMOGLOBIN A1c (test code = 62866) 5.4 % HEMOGLOBIN [id number] 00:00:00 Test Item Value Reference Range Interpretation Comments HEMOGLOBIN A1c (test code = 71504) 5.4 % HEMOGLOBIN [id number] 00:00:00 Test Item Value Reference Range Interpretation Comments HEMOGLOBIN A1c (test code = 74246) 5.4 % [id number] 00:00:00 Test Item Value Reference Range Interpretation Comments LITHIUM (test code = 2039) 0.63 MEQ/L [id number] 00:00:00 Test Item Value Reference Range Interpretation Comments LITHIUM (test code = 2039) 0.63 MEQ/L [id number] 00:00:00 Test Item Value Reference Range Interpretation Comments LITHIUM (test code = 2039) 0.63 MEQ/L COMPREHENSIVE METABOLIC [id number] 00:00:00 Test Item Value Reference Range Interpretation Comments GLUCOSE (test code = 2217) 93 MG/DL BUN (test code = 2208) 10 MG/DL CREATININE (test code = 2214) 0.81 MG/DL eGFR AMER. (test code 103 ML/MIN/1.73 = 20800) eGFR NON- AMER. (test 89 ML/MIN/1.73 code = 56648) CALC BUN/CREAT (test code = 12 RATIO 2235) SODIUM (test code = 2231) 140 MEQ/L POTASSIUM (test code = 2228) 4.5 MEQ/L CHLORIDE (test code = 2215) 101 MEQ/L CARBON DIOXIDE (test code = 27 MEQ/L 2206) CALCIUM (test code = 2209) 10.4 MG/DL PROTEIN, TOTAL (test code = 7.9 G/DL 222) ALBUMIN (test code = 2201) 5.0 G/DL CALC GLOBULIN (test code = 2.9 G/DL 2240) CALC A/G RATIO (test code = 1.7 RATIO 2234) BILIRUBIN, TOTAL (test code = <0.2 MG/DL 2206) ALKALINE PHOSPHATASE (test 104 U/L code = 2204) AST (test code = 2218) 24 U/L ALT (test code = 2219) 22 U/L COMPREHENSIVE METABOLIC [id number] 00:00:00 Test Item Value Reference Range Interpretation Comments GLUCOSE (test code = 2217) 93 MG/DL BUN (test code = 2208) 10 MG/DL CREATININE (test code = 2214) 0.81 MG/DL eGFR AMER. (test code 103 ML/MIN/1.73 = 83126) eGFR NON- AMER. (test 89 ML/MIN/1.73 code = 04948) CALC BUN/CREAT (test code = 12 RATIO 2235) SODIUM (test code = 2231) 140 MEQ/L POTASSIUM (test code = 2228) 4.5 MEQ/L CHLORIDE (test code = 2215) 101 MEQ/L CARBON DIOXIDE (test code = 27 MEQ/L 2206) CALCIUM (test code = 2209) 10.4 MG/DL PROTEIN, TOTAL (test code = 7.9 G/DL 222) ALBUMIN (test code = 2201) 5.0 G/DL CALC GLOBULIN (test code = 2.9 G/DL 2240) CALC A/G RATIO (test code = 1.7 RATIO 2234) BILIRUBIN, TOTAL (test code = <0.2 MG/DL 2206) ALKALINE PHOSPHATASE (test 104 U/L code = 2204) AST (test code = 2218) 24 U/L ALT (test code = 2219) 22 U/L CBC W/AUTO [id number] 00:00:00 Test Item Value Reference Range Interpretation [...] NUCLEATED RBCS (test code = 0.00 K/UL 77933) CBC W/AUTO [id number] 00:00:00 Test Item Value Reference Range Interpretation [...] NUCLEATED RBCS (test code = 0.00 K/UL 45445) CBC W/AUTO [id number] 00:00:00 Test Item Value Reference Range Interpretation [...] NUCLEATED RBCS (test code = 0.00 K/UL 73639) LIPID [id number] 00:00:00 Test Item Value Reference Range Interpretation Comments CHOLESTEROL (test code = 2210) 328 MG/DL TRIGLYCERIDES (test code = 2232) 614 MG/DL HDL CHOLESTEROL (test code = 42 MG/DL 2220) CALC LDL CHOL (test code = 2237) (NOTE) MG/DL RISK RATIO LDL/HDL (test code = (NOTE) RATIO 2238) LIPID [id number] 00:00:00 Test Item Value Reference Range Interpretation Comments CHOLESTEROL (test code = 2210) 328 MG/DL TRIGLYCERIDES (test code = 2232) 614 MG/DL HDL CHOLESTEROL (test code = 42 MG/DL 2220) CALC LDL CHOL (test code = 2237) (NOTE) MG/DL RISK RATIO LDL/HDL (test code = (NOTE) RATIO 2238) [id number] 00:00:00 Test Item Value Reference Range Interpretation Comments TSH, THIRD GENERATION (test code 4.310 UIU/ML = 2821) [id number] 00:00:00 Test Item Value Reference Range Interpretation Comments TSH, THIRD GENERATION (test code 4.310 UIU/ML = 2821) [id number] 00:00:00 Test Item Value Reference Range Interpretation Comments TSH, THIRD GENERATION (test code 4.310 UIU/ML = 2821) HEMOGLOBIN [id number] 00:00:00 Test Item Value Reference Range Interpretation Comments HEMOGLOBIN A1c (test code = 11051) 5.4 % HEMOGLOBIN [id number] 00:00:00 Test Item Value Reference Range Interpretation Comments HEMOGLOBIN A1c (test code = 88952) 5.4 % HEMOGLOBIN [id number] 00:00:00 Test Item Value Reference Range Interpretation Comments HEMOGLOBIN A1c (test code = 13594) 5.4 % [id number] 00:00:00 Test Item Value Reference Range Interpretation Comments LITHIUM (test code = 2039) 0.63 MEQ/L [id number] 00:00:00 Test Item Value Reference Range Interpretation Comments LITHIUM (test code = 2039) 0.63 MEQ/L [id number] 00:00:00 Test Item Value Reference Range Interpretation Comments LITHIUM (test code = 2039) 0.63 MEQ/L COMPREHENSIVE METABOLIC [id number] 00:00:00 Test Item Value Reference Range Interpretation Comments GLUCOSE (test code = 2217) 93 MG/DL BUN (test code = 2208) 10 MG/DL CREATININE (test code = 2214) 0.81 MG/DL eGFR AMER. (test code 103 ML/MIN/1.73 = 61054) eGFR NON- AMER. (test 89 ML/MIN/1.73 code = 09790) CALC BUN/CREAT (test code = 12 RATIO 2235) SODIUM (test code = 2231) 140 MEQ/L POTASSIUM (test code = 2228) 4.5 MEQ/L CHLORIDE (test code = 2215) 101 MEQ/L CARBON DIOXIDE (test code = 27 MEQ/L 220) CALCIUM (test code = 2209) 10.4 MG/DL PROTEIN, TOTAL (test code = 7.9 G/DL 222) ALBUMIN (test code = 2201) 5.0 G/DL CALC GLOBULIN (test code = 2.9 G/DL 2240) CALC A/G RATIO (test code = 1.7 RATIO 2234) BILIRUBIN, TOTAL (test code = <0.2 MG/DL 2206) ALKALINE PHOSPHATASE (test 104 U/L code = 2204) AST (test code = 2218) 24 U/L ALT (test code = 2219) 22 U/L COMPREHENSIVE METABOLIC [id number] 00:00:00 Test Item Value Reference Range Interpretation Comments GLUCOSE (test code = 2217) 93 MG/DL BUN (test code = 2208) 10 MG/DL CREATININE (test code = 2214) 0.81 MG/DL eGFR AMER. (test code 103 ML/MIN/1.73 = 94477) eGFR NON- AMER. (test 89 ML/MIN/1.73 code = 21029) CALC BUN/CREAT (test code = 12 RATIO 2235) SODIUM (test code = 2231) 140 MEQ/L POTASSIUM (test code = 2228) 4.5 MEQ/L CHLORIDE (test code = 2215) 101 MEQ/L CARBON DIOXIDE (test code = 27 MEQ/L 2206) CALCIUM (test code = 2209) 10.4 MG/DL PROTEIN, TOTAL (test code = 7.9 G/DL 222) ALBUMIN (test code = 2201) 5.0 G/DL CALC GLOBULIN (test code = 2.9 G/DL 2240) CALC A/G RATIO (test code = 1.7 RATIO 2234) BILIRUBIN, TOTAL (test code = <0.2 MG/DL 2207) ALKALINE PHOSPHATASE (test 104 U/L code = 2204) AST (test code = 2218) 24 U/L ALT (test code = 2219) 22 U/L CBC W/AUTO [id number] 00:00:00 Test Item Value Reference Range Interpretation [...] NUCLEATED RBCS (test code = 0.00 K/UL 14933) CBC W/AUTO [id number] 00:00:00 Test Item Value Reference Range Interpretation [...] NUCLEATED RBCS (test code = 0.00 K/UL 03119) CBC W/AUTO [id number] 00:00:00 Test Item Value Reference Range Interpretation [...] NUCLEATED RBCS (test code = 0.00 K/UL 34090) LIPID [id number] 00:00:00 Test Item Value Reference Range Interpretation Comments CHOLESTEROL (test code = 2210) 328 MG/DL TRIGLYCERIDES (test code = 2232) 614 MG/DL HDL CHOLESTEROL (test code = 42 MG/DL 2220) CALC LDL CHOL (test code = 2237) (NOTE) MG/DL RISK RATIO LDL/HDL (test code = (NOTE) RATIO 2238) LIPID [id number] 00:00:00 Test Item Value Reference Range Interpretation Comments CHOLESTEROL (test code = 2210) 328 MG/DL TRIGLYCERIDES (test code = 2232) 614 MG/DL HDL CHOLESTEROL (test code = 42 MG/DL 2220) CALC LDL CHOL (test code = 2237) (NOTE) MG/DL RISK RATIO LDL/HDL (test code = (NOTE) RATIO 2238) [id number] 00:00:00 Test Item Value Reference Range Interpretation Comments TSH, THIRD GENERATION (test code 4.310 UIU/ML = 2821) [id number] 00:00:00 Test Item Value Reference Range Interpretation Comments TSH, THIRD GENERATION (test code 4.310 UIU/ML = 2821) [id number] 00:00:00 Test Item Value Reference Range Interpretation Comments TSH, THIRD GENERATION (test code 4.310 UIU/ML = 2821) HEMOGLOBIN [id number] 00:00:00 Test Item Value Reference Range Interpretation Comments HEMOGLOBIN A1c (test code = 69020) 5.4 % HEMOGLOBIN [id number] 00:00:00 Test Item Value Reference Range Interpretation Comments HEMOGLOBIN A1c (test code = 19201) 5.4 % HEMOGLOBIN [id number] 00:00:00 Test Item Value Reference Range Interpretation Comments HEMOGLOBIN A1c (test code = 94608) 5.4 % [id number] 00:00:00 Test Item Value Reference Range Interpretation Comments LITHIUM (test code = 203) 0.63 MEQ/L [id number] 00:00:00 Test Item Value Reference Range Interpretation Comments LITHIUM (test code = 203) 0.63 MEQ/L [id number] 00:00:00 Test Item Value Reference Range Interpretation Comments LITHIUM (test code = 203) 0.63 MEQ/L COMPREHENSIVE METABOLIC [id number] 00:00:00 Test Item Value Reference Range Interpretation Comments GLUCOSE (test code = 2217) 93 MG/DL BUN (test code = 2208) 10 MG/DL CREATININE (test code = 2214) 0.81 MG/DL eGFR AMER. (test code 103 ML/MIN/1.73 = 04306) eGFR NON- AMER. (test 89 ML/MIN/1.73 code = 59045) CALC BUN/CREAT (test code = 12 RATIO [...] code = 2219) 22 U/L COMPREHENSIVE METABOLIC [id number] 00:00:00 Test Item Value Reference Range Interpretation Comments GLUCOSE (test code = 2217) 93 MG/DL BUN (test code = 2208) 10 MG/DL CREATININE (test code = 2214) 0.81 MG/DL eGFR AMER. (test code 103 ML/MIN/1.73 = 87804) eGFR NON- AMER. (test 89 ML/MIN/1.73 code = 62451) CALC BUN/CREAT (test code = 12 RATIO [...] code = 2219) 22 U/L CBC W/AUTO [id number] 00:00:00 Test Item Value Reference Range Interpretation [...] NUCLEATED RBCS (test code = 0.00 K/UL 12941) CBC W/AUTO [id number] 00:00:00 Test Item Value Reference Range Interpretation [...] NUCLEATED RBCS (test code = 0.00 K/UL 62809) CBC W/AUTO [id number] 00:00:00 Test Item Value Reference Range Interpretation [...] NUCLEATED RBCS (test code = 0.00 K/UL 12115) LIPID [id number] 00:00:00 Test Item Value Reference Range Interpretation Comments CHOLESTEROL (test code = 2210) 328 MG/DL TRIGLYCERIDES (test code = 2232) 614 MG/DL HDL CHOLESTEROL (test code = 42 MG/DL 2220) CALC LDL CHOL (test code = 2237) (NOTE) MG/DL RISK RATIO LDL/HDL (test code = (NOTE) RATIO 2238) LIPID [id number] 00:00:00 Test Item Value Reference Range Interpretation Comments CHOLESTEROL (test code = 2210) 328 MG/DL TRIGLYCERIDES (test code = 2232) 614 MG/DL HDL CHOLESTEROL (test code = 42 MG/DL 2220) CALC LDL CHOL (test code = 2237) (NOTE) MG/DL RISK RATIO LDL/HDL (test code = (NOTE) RATIO 2238) [id number] 00:00:00 Test Item Value Reference Range Interpretation Comments TSH, THIRD GENERATION (test code 4.310 UIU/ML = 2821) [id number] 00:00:00 Test Item Value Reference Range Interpretation Comments TSH, THIRD GENERATION (test code 4.310 UIU/ML = 2821) [id number] 00:00:00 Test Item Value Reference Range Interpretation Comments TSH, THIRD GENERATION (test code 4.310 UIU/ML = 2821) HEMOGLOBIN [id number] 00:00:00 Test Item Value Reference Range Interpretation Comments HEMOGLOBIN A1c (test code = 32721) 5.4 % HEMOGLOBIN [id number] 00:00:00 Test Item Value Reference Range Interpretation Comments HEMOGLOBIN A1c (test code = 07376) 5.4 % HEMOGLOBIN [id number] 00:00:00 Test Item Value Reference Range Interpretation Comments HEMOGLOBIN A1c (test code = 85457) 5.4 % [id number] 00:00:00 Test Item Value Reference Range Interpretation Comments LITHIUM (test code = 2039) 0.63 MEQ/L [id number] 00:00:00 Test Item Value Reference Range Interpretation Comments LITHIUM (test code = 203) 0.63 MEQ/L [id number] 00:00:00 Test Item Value Reference Range Interpretation Comments LITHIUM (test code = 2039) 0.63 MEQ/L"
[2022-09-06] MEDS ORDERED: ACETAMINOPHEN 500 MG TAB ONE (01:28)
[2022-09-06] MEDS ORDERED: methocarbamoL 750 MG TAB ONE (01:29)
[2022-09-06] MEDS ORDERED: IBUPROFEN 400 MG TAB ONE (01:29)
--- NOTE | 2022-09-06 03:19 | EDPHYS ---
Physician Documentation [facility] Name: Rody Doan Age: 46 yrs Sex: Female : 1975 Arrival Date: 09/06/2022 Time: 00:29 Bed 13 Private MD: ED Physician Guillermo Guzman HPI: 09/06 00:40 This 46 yrs old Female presents to ER via Unassigned with complaints of sp4 Shoulder Pain. 03:01 46-year-old female with a history of chronic right femoral neck fracture that has sp4 occurred 2 years ago with malunion of the right hip fracture presents with acute right shoulder pain and the right hip pain after she reported she slept awkwardly on her right side. Historical: - Allergies: 00:45 Flexeril; kl 00:45 Morphine; kl 00:45 Toradol; kl - PMHx: 00:45 Anxiety; Bipolar disorder; Depression; Hypertension; Hypothyroidism; Seizures; chronic kl pain; - PSHx: 00:45 Cholecystectomy; hysterectomy; kl - Immunization history:: Adult Immunizations not up to date. - Social history:: Smoking status: Patient reports the use of cigarette tobacco products, smokes one-half pack cigarettes per day, Patient uses. - Family history:: not pertinent. ROS: 03:01 Constitutional: Negative for fever, chills, and weight loss, Eyes: Negative for injury, sp4 pain, redness, and discharge, ENT: Negative for injury, pain, and discharge, Neck: Negative for injury, pain, and swelling, Cardiovascular: Negative for chest pain, palpitations, and edema, Respiratory: Negative for shortness of breath, cough, wheezing, and pleuritic chest pain. 03:12 Abdomen/GI: Negative for abdominal pain, nausea, vomiting, diarrhea, and constipation, sp4 Back: Negative for injury and pain, : Negative for injury, bleeding, discharge, and swelling, MS/Extremity: Negative for injury and deformity, positive for right shoulder pain and the right chronic hip pain Skin: Negative for injury, rash, and discoloration, Neuro: Negative for headache, weakness, numbness, tingling, and seizure, Psych: Negative for depression, anxiety, Allergy/Immunology: Negative for hives, rash, and allergies Endocrine: Negative for neck swelling, polydipsia, polyuria, polyphagia, and weight changes Hematologic/Lymphatic: Negative for swollen nodes, abnormal bleeding, and unusual bruising Exam: 03:12 Constitutional: This is a well developed, well nourished patient who is awake, alert, sp4 and in no acute distress. Head/Face: Normocephalic, atraumatic. Eyes: Pupils equal round and reactive to light, extra-ocular motions intact. Lids and lashes normal. Conjunctiva and sclera are not injected. Cornea within normal limits. Periorbital areas with no swelling, redness, or edema. ENT: Nares patent. No nasal discharge, no septal abnormalities noted. Tympanic membranes are normal and external auditory canals are clear. Oropharynx with no redness, swelling, or masses, exudates, or evidence of obstruction, uvula midline. Mucous membranes moist. Neck: Trachea midline, no thyromegaly or masses palpated, and no cervical lymphadenopathy. Supple, full range of motion without nuchal rigidity, or vertebral point tenderness. No Meningismus. Chest/axilla: Normal chest wall appearance and motion. Nontender with no deformity. No lesions are appreciated. Cardiovascular: Regular rate and rhythm with a normal S1 and S2. No gallops, murmurs, or rubs. Normal PMI, no JVD. No pulse deficits. Respiratory: Lungs have equal breath sounds bilaterally, clear to auscultation and percussion. No rales, rhonchi or wheezes noted. No increased work of breathing, no retractions or nasal flaring. Abdomen/GI: Soft, non-tender, with normal bowel sounds. No distension or tympany. No guarding or rebound. No evidence of tenderness throughout. Back: No spinal tenderness. No costovertebral tenderness. Skin: Warm, dry with normal turgor. Normal color with no rashes, no lesions, and no evidence of cellulitis. MS/ Extremity: Pulses equal, no cyanosis. Neurovascular intact. Full, normal range of motion. Right shoulder tenderness Neuro: Awake and alert, GCS 15, oriented to person, place, time, and situation. Cranial nerves II-XII grossly intact. Motor strength 5/5 in all extremities. Sensory grossly intact. Psych: Awake, alert, with orientation to person, place and time. Behavior, mood, and affect are within normal limits Vital Signs: 00:42 BP 111 / 84; Pulse 92; Resp 18; Temp 99.3; Pulse Ox 100% ; Weight 69.85 kg (R); Height kl 5 ft. 4 in. ; Pain 10/10; 03:00 BP 108 / 80; Pulse 96; Resp 17; Pulse Ox 99% ; vc1 00:42 Body Mass Index 26.43 (69.85 kg, 162.56 cm) kl 00:42 Pain Scale: Adult kl MDM: 01:20 Patient medically screened. sp4 03:12 Differential diagnosis: DJD, tendonitis, Soft tissue compression. Data reviewed: vital sp4 signs. 03:17 ED course: Right shoulder x-ray revealed no acute bony abnormality, right femur x-ray sp4 revealed chronic right femoral neck fracture with irregularity at the fracture site. No evidence to suggest healing is noted. This is patient's chronic problem. Patient will be advised to take Robaxin as needed for muscle soreness ibuprofen as needed for pain and follow-up with Dr. Quinn with the orthopedic surgery . 09/06 01:15 Order name: Shoulder Right (2 View) XRAY sp4 09/06 01:47 Order name: Pelvis XRAY sp4 09/06 01:47 Order name: Femur Right XRAY sp4 09/06 03:01 Order name: Sling; Complete Time: 03:17 sp4 Administered Medications: 01:37 Drug: Methocarbamol PO 1500 mg Route: PO; vc1 03:19 Follow up: Response: No adverse reaction vc1 01:37 Drug: Ibuprofen PO 800 mg Route: PO; vc1 03:17 Follow up: Response: No adverse reaction vc1 01:37 Drug: Acetaminophen PO 1000 mg Route: PO; vc1 03:19 Follow up: Response: No adverse reaction vc1 03:18 Not Given (pt allergicc): HYDROcodone-acetaminophen PO 10 mg-325 mg 1 tabs PO once vc1 Disposition Summary: 09/06/22 03:19 Discharge Ordered Location: Home sp4 Problem: new sp4 Symptoms: have improved sp4 Condition: Stable sp4 Diagnosis - Right shoulder soft tissue injury, acute right shoulder pain, chronic right hip sp4 pain, chronic right humeral neck fracture Followup: sp4 - With: London Quinn MD - When: 7 - 10 days - Reason: Recheck today's complaints Discharge Instructions: - Discharge Summary Sheet sp4 - Shoulder Pain, [id number] sp4 Prescriptions: - methocarbamol 750 mg Oral Tablet - take 2 tablets by ORAL route 3 times per day PRN pain or muscle soreness; 60 sp4 tablet; Refills: 0, Product Selection Permitted Signatures: Dispatcher [employer] Dai Madrid, RN RN Sheyla Ott RN RN vc1 Guillermo Guzman MD MD sp4
--- NOTE | 2022-09-06 03:19 | ER ---
Nurse's Notes [facility] Name: Rody Doan Age: 46 yrs Sex: Female : 1975 Arrival Date: 09/06/2022 Time: 00:29 Bed 13 Private MD: Diagnosis: Right shoulder soft tissue injury, acute right shoulder pain, chronic right hip pain, chronic right humeral neck fracture Presentation: 09/06 00:42 Chief complaint: Patient states: right shoulder pain and right hip pain began today kl after cleaning home scheduled for hip replacement also reports right hip pain. Coronavirus screen: Vaccine status:. Ebola Screen: Patient negative for fever greater than or equal to 101.5 degrees Fahrenheit, and additional compatible Ebola Virus Disease symptoms. Initial Sepsis Screen: Does the patient meet any 2 criteria? HR > 90 bpm. No. Patient's initial sepsis screen is negative. Does the patient have a suspected source of infection? No. Patient's initial sepsis screen is negative. Risk Assessment: Do you want to hurt yourself or someone else? Patient reports no desire to harm self or others. 00:42 Method Of Arrival: Wheelchair kl 00:42 Acuity: MGEHA 4 kl Triage Assessment: 00:46 General: Appears uncomfortable, Behavior is cooperative. Pain: Complains of pain in kl anterior aspect of right shoulder. Historical: - Allergies: 00:45 Flexeril; kl 00:45 Morphine; kl 00:45 Toradol; kl - PMHx: 00:45 Anxiety; Bipolar disorder; Depression; Hypertension; Hypothyroidism; Seizures; chronic kl pain; - PSHx: 00:45 Cholecystectomy; hysterectomy; kl - Immunization history:: Adult Immunizations not up to date. - Social history:: Smoking status: Patient reports the use of cigarette tobacco products, smokes one-half pack cigarettes per day, Patient uses. - Family history:: not pertinent. Screenin:31 [facility] ED Fall Risk Assessment (Adult) History of falling in the last 3 months, vc1 including since admission Yes- fall prone (multiple falls) (3 pts) Confusion or Disorientation No (0 pts) Intoxicated or Sedated No (0 pts) Impaired Gait No (0 pts) Mobility Assist Device Used No (0 pt) Altered Elimination No (0 pt) Score/Fall Risk Level 0 - 2 = Low Risk Oriented to surroundings, Maintained a safe environment, Educated pt \\T\\ family on fall prevention, incl call for assistance when getting out of bed. Abuse screen: Denies threats or abuse. Nutritional screening: No deficits noted. Tuberculosis screening: No symptoms or risk factors identified. Assessment: 01:23 Reassessment: Pt states she is allergic to hydrocodone, " Last time my prescribed vc1 it it made me itch all over so they told me to stop taking it and changed it to oxy ughh what was is called, oxy contin." states, "well last time she was here they gave her fentanyl", Provider notified. 01:28 Reassessment: Pt asks, "Can I just get a morphine shot with some Benadryl" Pt informed vc1 that provider stated he was ordering pills only. Pt is allergic to morphine. 03:19 Reassessment: Pt states she doesn't want to wait for discharge paperwork since the Dr. english already told her all scans were negative. Vital Signs: 00:42 BP 111 / 84; Pulse 92; Resp 18; Temp 99.3; Pulse Ox 100% ; Weight 69.85 kg (R); Height kl 5 ft. 4 in. ; Pain 10/10; 03:00 BP 108 / 80; Pulse 96; Resp 17; Pulse Ox 99% ; vc1 00:42 Body Mass Index 26.43 (69.85 kg, 162.56 cm) kl 00:42 Pain Scale: Adult kl ED Course: 00:33 Patient arrived in ED. ag3 00:40 Guillermo Guzman MD is Attending Physician. sp4 00:45 Triage completed. kl 01:31 Arm band placed on right wrist. vc1 01:33 Patient has correct armband on for positive identification. Bed in low position. Call vc1 light in reach. 01:35 Shoulder Right (2 View) XRAY In Process Unspecified. EDMS 01:57 Sheyla Mascorro, BONIFACIO is Primary Nurse. vc1 02:30 Pelvis XRAY In Process Unspecified. EDMS 02:30 Femur Right XRAY In Process Unspecified. EDMS 03:19 London Quinn MD is Referral Physician. sp4 03:21 No provider procedures requiring assistance completed. Patient did not have IV access vc1 during this emergency room visit. Administered Medications: 01:37 Drug: Methocarbamol PO 1500 mg Route: PO; vc1 03:19 Follow up: Response: No adverse reaction vc1 01:37 Drug: Ibuprofen PO 800 mg Route: PO; vc1 03:17 Follow up: Response: No adverse reaction vc1 01:37 Drug: Acetaminophen PO 1000 mg Route: PO; vc1 03:19 Follow up: Response: No adverse reaction vc1 03:18 Not Given (pt allergicc): HYDROcodone-acetaminophen PO 10 mg-325 mg 1 tabs PO once vc1 Medication: 01:32 VIS not applicable for this client. vc1 Outcome: 03:19 Discharge ordered by . sp4 03:21 Discharged to home via wheelchair. vc1 03:21 Condition: good 03:21 Discharge instructions given to patient, Instructed on discharge instructions, follow up and referral plans. sling use 03:22 Patient left the ED. vc1 Signatures: Dispatcher [employer] EDMS Dai Maier RN RN Sarah Morneo ag3 Sheyla Mascorro RN RN vc1 Guillermo Guzman MD MD sp4 Corrections: (The following items were deleted from the chart) 03:17 01:37 HYDROcodone-acetaminophen PO 10 mg-325 mg 1 tabs PO vc1 vc1
[2022-09-06 04:21] VITALS: TEMP 99.3
[2022-09-06 04:22] VITALS: BP 108/80; O2SAT 99
--- NOTE | 2022-09-07 13:08 | RAD REPORT ---
EXAM DESCRIPTION: RAD - Shoulder Right 2 View - 09/06/2022 1:34 am CLINICAL HISTORY: 46 years, Female, acute pain Shoulder Right 2 View COMPARISON: None FINDINGS: 2 X-ray views of the right shoulder (internal rotation and external rotation views) were p erformed. There is no evidence for fracture or dislocation. No gross articular or soft tissue abnormality is identified. There are no gross intraosseous lesions. The AC joint demonstrate to be within normal l imits. There is no evidence for separation. IMPRESSION: Unremarkable right shoulder radiographs. Electronically signed by: Fabien Ga MD 09/06/2022 1:50 AM CDT Due to temporary technical issues with the PACS/Fluency reporting system, reports are being signed by the in house radiologists without review as a courtesy to insure prompt reporting. The interpreting radiologist is fully responsible for the content of the report.
--- NOTE | 2022-09-07 13:26 | RAD REPORT ---
EXAM DESCRIPTION: RAD - Pelvis - 09/06/2022 2:28 am CLINICAL HISTORY: The patient is 46 years old and is Female; PAIN TECHNIQUE: Frontal view of the pelvis. COMPARISON: XR Pelvis dated August 09 2022 FINDINGS: BONES/JOINTS: The femoral heads are located. SI joints and pubic symphysis are intact wi thout evidence of diastases. Redemonstration of the chronic right femoral neck fracture is noted. Irr egularity at the fracture site is present. There has been no interval healing since prior exam. No dislocation. SOFT TISSUES: Unremarkable. IMPRESSION: Chronic right femoral neck fracture as described. Electronically signed by: Mila Humphrey MD 09/06/2022 2:49 AM CDT Due to temporary technical issues with the PACS/Fluency reporting system, reports are being signed by the in house radiologists without review as a courtesy to insure prompt reporting. The interpreting radiologist is fully responsible for the content of the report.
--- NOTE | 2022-09-07 21:25 | RAD REPORT ---
EXAM DESCRIPTION: RAD - Femur Right - 09/06/2022 2:28 am CLINICAL HISTORY: The patient is 46 years old and is Female; pain and chronic pain TECHNIQUE: Frontal and lateral views of the right femur. COMPARISON: XR Femur dated August 09 2022 FINDINGS: BONES/JOINTS: Redemonstration of the right femoral neck fracture is noted. Irregularity at the fracture plane is again seen. The femoral head remains located. The bones are osteopenic. No dislocation. SOFT TISSUES: Unremarkable. IMPRESSION: Redemonstration of the chronic right femoral neck fracture with irregularity at the frac ture site. No evidence to suggest healing is noted. Electronically signed by: Mila Humphrey MD 09/06/2022 2:49 AM CDT Due to temporary technical issues with the PACS/Fluency reporting system, reports are being signed by the in house radiologists without review as a courtesy to insure prompt reporting. The interpreting radiologist is fully responsible for the content of the report.
== END 2022-09-06 03:22 | disposition home or self-care (01) ==
LOC: ER 00:29
DX: M25.511 Pain in right shoulder (principal); S42.211S Unspecified displaced fracture of surgical neck of right humerus, sequela; M25.551 Pain in right hip; F17.210 Nicotine dependence, cigarettes, uncomplicated; Z88.5 Allergy status to narcotic agent; Z88.8 Allergy status to other drugs, medicaments and biological substances
CPT/HCPCS: 72170

== ENCOUNTER 2022-09-11 14:07 | Emergency (ER) | payer OTHER ==
--- OUTSIDE RECORDS SUMMARY | 2022-09-11 14:24 | XMS REPORT | Continuity of Care Document ---
:1975 Author Organization [facility] t Address [address] [facility]. [address] [place] [address] Care Team Providers Name Role Phone Asked, [...] Dionisio Freeman MD Attending Clinician Doctor Unassigned, [place] Attending Clinician Unavailable Kristine Ojeda MD Attending [...] Attending Clinician LYNDA SHULTZ Attending Clinician Unavailable [facility] Attending Clinician Unavailable JV RANDHAWA Attending Clinician Unavailable Addison CARLOS, Mick Attending Clinician PAULINA ZAMORA Attending Clinician Unavailable Paulina Zamora MD Attending Clinician Jaspreet VALDOVINOS, Mariangel Parker Attending Clinician Unavailable Gee Baptiste MD Attending Clinician BRADEN DEAN Attending Clinician Unavailable Yolande CARLOS, Replaced By [facility] Attending Clinician Aparna Rowley Attending Clinician BEBA_Mayra Admitting Clinician Unavailable LISA MURILLO Admitting Clinician Unavailable ANDERSON ALATORRE Admitting Clinician Unavailable Payers Payer Name Policy Type Policy Number Effective Date Expiration Date [facility] [id number] [facility] [id number] DH - DUAL (MEDICARE REPLACEMENT HMO) [facility] [id number] 2020 00:00:00 Problems Condition Condition Condition Status [...] Active Univers ALLERGIE Class ity of [facility] Social History Social Habit Start Date Stop Date Quantity Comments Source History of tobacco Cigarette Smoker [facility] Exposure to 2022-07-18 2022-07-28 Not sure [facility] SARS-CoV-2 (event) 00:00:00 08:24:00 [facility] Alcohol intake 2022-07-28 2022-07-28 Current University of 00:00:00 00:00:00 non-drinker of [facility] alcohol Branch (finding) History of Social 2022-07-28 2022-07-[address] function 00:00:00 00:00:00 Hospital Tobacco use and 2022-04-25 2022-04-25 Smokeless Universit y of exposure 00:00:00 00:00:00 tobacco non-user [facility] dical Branch Cigarettes smoked 2022-04-25 2022-04-25 [facility] ity of current (pack per 00:00:00 00:00:00 [facility] ) - Reported Branch Cigarette 2022-04-25 2022-04-25 [facility] of pack-years 00:00:00 00:00:00 [facility] Sex Ass[birth year] At [birth year] [facility] 00:00[facility] 00:00:00 Hospital Smoking Status Start Date Stop Date Source Tobacco smoking consumption [facility] unknown Smokes tobacco daily 2022-04-25 00:00:00 Univers ity of [facility] Medications Ordered Filled Start Stop Current Ordering [...] up to 5 days. [place] 2022[place] [address] 1{tbl} Q6H Take 1-2 Methodi en-codeine 4-14 [...] up to 5 days. acetamin[place] 2022- [place] [id number] 1{tbl} Q6H Take 1-2 Methodi en-codeine 07-28 [...] 00 160-4.5 MCG/ACT AERO amLODIPine 2022-0 Yes [id number] 5mg Take 5 mg Univers 5 mg tablet 1-10 by mouth ity of 14:05: in the [place] [address] morning. Medical Branch amLODIPine 2022-0 Yes [id number] 5mg Take 5 mg Univers 5 mg tablet 1-10 by mouth ity of 14:05: in the [place] [address] morning. Medical Branch amLODIPine 2022-0 Yes [id number] 5mg Take 5 mg Univers 5 mg tablet 1-10 by mouth ity of 14:05: in the [place] [address] morning. Medical Branch amLODIPine 2022-0 Yes [id number] 5mg Take 5 mg Univers 5 mg tablet 1-10 by mouth ity of 14:05: in the [place] [address] morning. Medical Branch amLODIPine 2022-0 Yes [id number] 5mg Take 5 mg Univers 5 mg tablet 1-10 by mouth ity of 14:05: in the [place] [address] morning. Medical Branch amLODIPine 2022-0 Yes [id number] 5mg Take 5 mg Univers 5 mg tablet 1-10 by mouth ity of 14:05: in the [place] [address] morning. Medical Branch amLODIPine 2022-0 Yes [id number] 5mg Take 5 mg Univers 5 mg tablet 1-10 by mouth ity of 14:05: in the [place] [address] morning. Medical Branch amLODIPine 2022-0 Yes [id number] 5mg Take 5 mg Univers 5 mg tablet 1-10 by mouth ity of 14:05: in the [place] [address] morning. Medical Branch amLODIPine 2022-0 Yes [id number] 5mg Take 5 mg Univers 5 mg tablet 1-10 by mouth ity of 14:05: in the [place] [address] morning. Medical Branch amLODIPine 2022-0 Yes [id number] 5mg Take 5 mg Univers 5 mg tablet 1-10 by mouth ity of 14:05: in the [place] [address] morning. Medical Branch amLODIPine 2022-0 Yes [id number] 5mg Take 5 mg Univers 5 mg tablet 1-10 by mouth ity of 14:05: in the [place] [address] morning. Medical Branch amLODIPine 3-0 Yes [id number] 5mg Take 5 mg Univers 5 mg tablet 1-10 by mouth ity of 14:05: in the [place] [address] morning. Medical Branch amLODIPine 3-0 Yes [id number] 5mg Take 5 mg Univers 5 mg tablet 1-10 by mouth ity of 14:05: in the [place] [address] morning. Medical Branch amLODIPine 3-0 Yes [id number] 5mg Take 5 mg Univers 5 mg tablet 1-10 by mouth ity of 14:05: in the [place] [address] morning. Medical Branch amLODIPine 3-0 Yes [id number] 5mg Take 5 mg Univers 5 mg tablet 1-10 by mouth ity of 14:05: in the [place] [address] morning. Medical Branch amLODIPine 3-0 Yes [id number] 5mg Take 5 mg Univers 5 mg tablet 1-10 by mouth ity of 14:05: in the [place] [address] morning. Medical Branch amLODIPine 3-0 Yes [id number] 5mg Take 5 mg Univers 5 mg tablet 1-10 by mouth ity of 14:05: in the [place] [address] morning. Medical Branch omeprazole 3-0 Yes [id number] 40mg Take 40 mg Univers 40 mg 1-10 by mouth ity of capsule 13:52: in the [place] [address] morning. Medical Branch omeprazole 3-0 Yes [id number] 40mg Take 40 mg Univers 40 mg 1-10 by mouth ity of capsule 13:52: in the [place] [address] morning. Medical Branch omeprazole 3-0 Yes [id number] 40mg Take 40 mg Univers 40 mg 1-10 by mouth ity of capsule 13:52: in the [place] [address] morning. Medical Branch omeprazole 2023-0 Yes [id number] 40mg Take 40 mg Univers 40 mg 1-10 by mouth ity of capsule 13:52: in the [place] [address] morning. Medical Branch omeprazole 2023-0 Yes [id number] 40mg Take 40 mg Univers 40 mg 1-10 by mouth ity of capsule 13:52: in the [place] [address] morning. Medical Branch omeprazole 2023-0 Yes [id number] 40mg Take 40 mg Univers 40 mg 1-10 by mouth ity of capsule 13:52: in the [place] [address] morning. Medical Branch omeprazole 2023-0 Yes [id number] 40mg Take 40 mg Univers 40 mg 1-10 by mouth ity of capsule 13:52: in the [place] [address] morning. Medical Branch omeprazole 3-0 Yes [id number] 40mg Take 40 mg Univers 40 mg 1-10 by mouth ity of capsule 13:52: in the [place] [address] morning. Medical Branch omeprazole 3-0 Yes [id number] 40mg Take 40 mg Univers 40 mg 1-10 by mouth ity of capsule 13:52: in the [place] [address] morning. Medical Branch omeprazole 3-0 Yes [id number] 40mg Take 40 mg Univers 40 mg 1-10 by mouth ity of capsule 13:52: in the [place] [address] morning. Medical Branch omeprazole 3-0 Yes [id number] 40mg Take 40 mg Univers 40 mg 1-10 by mouth ity of capsule 13:52: in the [place] [address] morning. Medical Branch omeprazole 3-0 Yes [id number] 40mg Take 40 mg Univers 40 mg 1-10 by mouth ity of capsule 13:52: in the [place] [address] morning. Medical Branch omeprazole 3-0 Yes [id number] 40mg Take 40 mg Univers 40 mg 1-10 by mouth ity of capsule 13:52: in the [place] [address] morning. Medical Branch omeprazole 3-0 Yes [id number] 40mg Take 40 mg Univers 40 mg 1-10 by mouth ity of capsule 13:52: in the [place] [address] morning. Medical Branch omeprazole 3-0 Yes [id number] 40mg Take 40 mg Univers 40 mg 1-10 by mouth ity of capsule 13:52: in the [place] [address] morning. Medical Branch omeprazole 3-0 Yes [id number] 40mg Take 40 mg Univers 40 mg 1-10 by mouth ity of capsule 13:52: in the [place] [address] morning. Medical Branch omeprazole 2023-0 Yes [id number] 40mg Take 40 mg Univers 40 mg 1-10 by mouth ity of capsule 13:52: in the [place] [address] morning. Medical Branch clonazePAM 2023-0 Yes [id number] 1mg Take 1 mg Univers 1 mg tablet 1-10 by mouth 3 it y of 13:51: (three) [place] 23 times Medical daily as Branch needed. clonazePAM 2023-0 Yes [id number] 1mg Take 1 mg Univers 1 mg tablet 1-10 by mouth 3 it y of 13:51: (three) [place] 23 times Medical daily as Branch needed. clonazePAM 2023-0 Yes [id number] 1mg Take 1 mg Univers 1 mg tablet 1-10 by mouth 3 it y of 13:51: (three) [place] 23 times Medical daily as Branch needed. clonazePAM 2023-0 Yes [id number] 1mg Take 1 mg Univers 1 mg tablet 1-10 by mouth 3 it y of 13:51: (three) [place] 23 times Medical daily as Branch needed. clonazePAM 2023-0 Yes [id number] 1mg Take 1 mg Univers 1 mg tablet 1-10 by mouth 3 it y of 13:51: (three) [place] 23 times Medical daily as Branch needed. clonazePAM 2023-0 Yes [id number] 1mg Take 1 mg Univers 1 mg tablet 1-10 by mouth 3 it y of 13:51: (three) [place] 23 times Medical daily as Branch needed. clonazePAM 2023-0 Yes [id number] 1mg Take 1 mg Univers 1 mg tablet 1-10 by mouth 3 it y of 13:51: (three) [place] 23 times Medical daily as Branch needed. clonazePAM 2023-0 Yes [id number] 1mg Take 1 mg Univers 1 mg tablet 1-10 by mouth 3 it y of 13:51: (three) [place] 23 times Medical daily as Branch needed. clonazePAM 2023-0 Yes [id number] 1mg Take 1 mg Univers 1 mg tablet 1-10 by mouth 3 it y of 13:51: (three) [place] 23 times Medical daily as Branch needed. clonazePAM 2023-0 Yes [id number] 1mg Take 1 mg Univers 1 mg tablet 1-10 by mouth 3 it y of 13:51: (three) [place] 23 times Medical daily as Branch needed. clonazePAM 2023-0 Yes [id number] 1mg Take 1 mg Univers 1 mg tablet 1-10 by mouth 3 it y of 13:51: (three) [place] 23 times Medical daily as Branch needed. clonazePAM 2023-0 Yes [id number] 1mg Take 1 mg Univers 1 mg tablet 1-10 by mouth 3 it y of 13:51: (three) [place] 23 times Medical daily as Branch needed. clonazePAM 2023-0 Yes [id number] 1mg Take 1 mg Univers 1 mg tablet 1-10 by mouth 3 it y of 13:51: (three) [place] 23 times Medical daily as Branch needed. clonazePAM 2023-0 Yes [id number] 1mg Take 1 mg Univers 1 mg tablet 1-10 by mouth 3 it y of 13:51: (three) [place] 23 times Medical daily as Branch needed. clonazePAM 2023-0 Yes [id number] 1mg Take 1 mg Univers 1 mg tablet 1-10 by mouth 3 it y of 13:51: (three) [place] 23 times Medical daily as Branch needed. clonazePAM 2023-0 Yes [id number] 1mg Take 1 mg Univers 1 mg tablet 1-10 by mouth 3 it y of 13:51: (three) [place] 23 times Medical daily as Branch needed. clonazePAM 3-0 Yes [id number] 1mg Take 1 mg Univers 1 mg tablet 1-10 by mouth 3 it y of 13:51: (three) [place] 23 times Medical daily as Branch needed. lithium 3-0 Yes [id number] 150mg Take 0.5 Univers carbonate 1-10 tablets by ity of 300 mg 00:00: mouth in [place] tablet 00 the Medical morning. Branch QUEtiapine 2022-0 Yes [id number] 50mg Take 1 Univers 50 mg 1-10 tablet by ity of tablet 00:00: mouth at [place] 00 bedtime as Medical needed for Branch Insomnia. gabapentin 2023-0 Yes [id number] 600mg Take 2 Univers 300 mg 1-10 9102 capsules ity of capsule 00:00: by mouth [place] 00 in the Medical morning Branch and 2 capsules at noon and 2 capsules in the evening. hydrOXYzine 3-0 Yes [id number] 25mg Take 1 Univers 25 mg 1-10 tablet by ity of tablet 00:00: mouth [place] 00 every 6 Medical (six) Branch hours as needed for Anxiety. lithium 2023-0 Yes [id number] 150mg Take 0.5 Univers carbonate 1-10 tablets by ity of 300 mg 00:00: mouth in [place] tablet 00 the Medical morning. Branch QUEtiapine 2023-0 Yes [id number] 50mg Take 1 Univers 50 mg 1-10 tablet by ity of tablet 00:00: mouth at [place] 00 bedtime as Medical needed for Branch Insomnia. gabapentin 2023-0 Yes [id number] 600mg Take 2 Univers 300 mg 1-10 9102 capsules ity of capsule 00:00: by mouth [place] 00 in the Medical morning Branch and 2 capsules at noon and 2 capsules in the evening. hydrOXYzine 2023-0 Yes [id number] 25mg Take 1 Univers 25 mg 1-10 tablet by ity of tablet 00:00: mouth [place] 00 every 6 Medical (six) Branch hours as needed for Anxiety. lithium 2023-0 Yes [id number] 150mg Take 0.5 Univers carbonate 1-10 tablets by ity of 300 mg 00:00: mouth in [place] tablet 00 the Medical morning. Branch QUEtiapine 2022-0 Yes [id number] 50mg Take 1 Univers 50 mg 1-10 tablet by ity of tablet 00:00: mouth at [place] 00 bedtime as Medical needed for Branch Insomnia. gabapentin 3-0 Yes [id number] 600mg Take 2 Univers 300 mg 1-10 9102 capsules ity of capsule 00:00: by mouth [place] 00 in the Medical morning Branch and 2 capsules at noon and 2 capsules in the evening. hydrOXYzine 3-0 Yes [id number] 25mg Take 1 Univers 25 mg 1-10 tablet by ity of tablet 00:00: mouth [place] 00 every 6 Medical (six) Branch hours as needed for Anxiety. lithium 3-0 Yes [id number] 150mg Take 0.5 Univers carbonate 1-10 tablets by ity of 300 mg 00:00: mouth in [place] tablet 00 the Medical morning. Branch QUEtiapine 2022-0 Yes [id number] 50mg Take 1 Univers 50 mg 1-10 tablet by ity of tablet 00:00: mouth at [place] 00 bedtime as Medical needed for Branch Insomnia. gabapentin 3-0 Yes [id number] 600mg Take 2 Univers 300 mg 1-10 9102 capsules ity of capsule 00:00: by mouth [place] 00 in the Medical morning Branch and 2 capsules at noon and 2 capsules in the evening. hydrOXYzine 2023-0 Yes [id number] 25mg Take 1 Univers 25 mg 1-10 tablet by ity of tablet 00:00: mouth [place] 00 every 6 Medical (six) Branch hours as needed for Anxiety. lithium 2023-0 Yes [id number] 150mg Take 0.5 Univers carbonate 1-10 tablets by ity of 300 mg 00:00: mouth in [place] tablet 00 the Medical morning. Branch QUEtiapine 3-0 Yes [id number] 50mg Take 1 Univers 50 mg 1-10 tablet by ity of tablet 00:00: mouth at [place] 00 bedtime as Medical needed for Branch Insomnia. gabapentin 2023-0 Yes [id number] 600mg Take 2 Univers 300 mg 1-10 9102 capsules ity of capsule 00:00: by mouth [place] 00 in the Medical morning Branch and 2 capsules at noon and 2 capsules in the evening. hydrOXYzine 2023-0 Yes [id number] 25mg Take 1 Univers 25 mg 1-10 tablet by ity of tablet 00:00: mouth [place] 00 every 6 Medical (six) Branch hours as needed for Anxiety. lithium 2023-0 Yes [id number] 150mg Take 0.5 Univers carbonate 1-10 tablets by ity of 300 mg 00:00: mouth in [place] tablet 00 the Medical morning. Branch QUEtiapine 2023-0 Yes [id number] 50mg Take 1 Univers 50 mg 1-10 tablet by ity of tablet 00:00: mouth at [place] 00 bedtime as Medical needed for Branch Insomnia. gabapentin 2023-0 Yes [id number] 600mg Take 2 Univers 300 mg 1-10 9102 capsules ity of capsule 00:00: by mouth [place] 00 in the Medical morning Branch and 2 capsules at noon and 2 capsules in the evening. hydrOXYzine 2023-0 Yes [id number] 25mg Take 1 Univers 25 mg 1-10 tablet by ity of tablet 00:00: mouth [place] 00 every 6 Medical (six) Branch hours as needed for Anxiety. lithium 2023-0 Yes [id number] 150mg Take 0.5 Univers carbonate 1-10 tablets by ity of 300 mg 00:00: mouth in [place] tablet 00 the Medical morning. Branch QUEtiapine 2023-0 Yes [id number] 50mg Take 1 Univers 50 mg 1-10 tablet by ity of tablet 00:00: mouth at [place] 00 bedtime as Medical needed for Branch Insomnia. gabapentin 2023-0 Yes [id number] 600mg Take 2 Univers 300 mg 1-10 9102 capsules ity of capsule 00:00: by mouth [place] 00 in the Medical morning Branch and 2 capsules at noon and 2 capsules in the evening. hydrOXYzine 2023-0 Yes [id number] 25mg Take 1 Univers 25 mg 1-10 tablet by ity of tablet 00:00: mouth [place] 00 every 6 Medical (six) Branch hours as needed for Anxiety. lithium 2023-0 Yes [id number] 150mg Take 0.5 Univers carbonate 1-10 tablets by ity of 300 mg 00:00: mouth in [place] tablet 00 the Medical morning. Branch QUEtiapine 3-0 Yes [id number] 50mg Take 1 Univers 50 mg 1-10 tablet by ity of tablet 00:00: mouth at [place] 00 bedtime as Medical needed for Branch Insomnia. gabapentin 3-0 Yes [id number] 600mg Take 2 Univers 300 mg 1-10 9102 capsules ity of capsule 00:00: by mouth [place] 00 in the Medical morning Branch and 2 capsules at noon and 2 capsules in the evening. hydrOXYzine 2023-0 Yes [id number] 25mg Take 1 Univers 25 mg 1-10 tablet by ity of tablet 00:00: mouth [place] 00 every 6 Medical (six) Branch hours as needed for Anxiety. lithium 3-0 Yes [id number] 150mg Take 0.5 Univers carbonate 1-10 tablets by ity of 300 mg 00:00: mouth in [place] tablet 00 the Medical morning. Branch QUEtiapine 2022-0 Yes [id number] 50mg Take 1 Univers 50 mg 1-10 tablet by ity of tablet 00:00: mouth at [place] 00 bedtime as Medical needed for Branch Insomnia. gabapentin 3-0 Yes [id number] 600mg Take 2 Univers 300 mg 1-10 9102 capsules ity of capsule 00:00: by mouth [place] 00 in the Medical morning Branch and 2 capsules at noon and 2 capsules in the evening. hydrOXYzine 2023-0 Yes [id number] 25mg Take 1 Univers 25 mg 1-10 tablet by ity of tablet 00:00: mouth [place] 00 every 6 Medical (six) Branch hours as needed for Anxiety. lithium 3-0 Yes [id number] 150mg Take 0.5 Univers carbonate 1-10 tablets by ity of 300 mg 00:00: mouth in [place] tablet 00 the Medical morning. Branch QUEtiapine 3-0 Yes [id number] 50mg Take 1 Univers 50 mg 1-10 tablet by ity of tablet 00:00: mouth at [place] 00 bedtime as Medical needed for Branch Insomnia. gabapentin 3-0 Yes [id number] 600mg Take 2 Univers 300 mg 1-10 9102 capsules ity of capsule 00:00: by mouth [place] 00 in the Medical morning Branch and 2 capsules at noon and 2 capsules in the evening. hydrOXYzine 2023-0 Yes [id number] 25mg Take 1 Univers 25 mg 1-10 tablet by ity of tablet 00:00: mouth [place] 00 every 6 Medical (six) Branch hours as needed for Anxiety. lithium 3-0 Yes [id number] 150mg Take 0.5 Univers carbonate 1-10 tablets by ity of 300 mg 00:00: mouth in [place] tablet 00 the Medical morning. Branch QUEtiapine 2022-0 Yes [id number] 50mg Take 1 Univers 50 mg 1-10 tablet by ity of tablet 00:00: mouth at [place] 00 bedtime as Medical needed for Branch Insomnia. gabapentin 2022-0 Yes [id number] 600mg Take 2 Univers 300 mg 1-10 9102 capsules ity of capsule 00:00: by mouth [place] 00 in the Medical morning Branch and 2 capsules at noon and 2 capsules in the evening. hydrOXYzine 2022-0 Yes [id number] 25mg Take 1 Univers 25 mg 1-10 tablet by ity of tablet 00:00: mouth [place] 00 every 6 Medical (six) Branch hours as needed for Anxiety. lithium 3-0 Yes [id number] 150mg Take 0.5 Univers carbonate 1-10 tablets by ity of 300 mg 00:00: mouth in [place] tablet 00 the Medical morning. Branch QUEtiapine 2022-0 Yes [id number] 50mg Take 1 Univers 50 mg 1-10 tablet by ity of tablet 00:00: mouth at [place] 00 bedtime as Medical needed for Branch Insomnia. gabapentin 3-0 Yes [id number] 600mg Take 2 Univers 300 mg 1-10 9102 capsules ity of capsule 00:00: by mouth [place] 00 in the Medical morning Branch and 2 capsules at noon and 2 capsules in the evening. hydrOXYzine 3-0 Yes [id number] 25mg Take 1 Univers 25 mg 1-10 tablet by ity of tablet 00:00: mouth [place] 00 every 6 Medical (six) Branch hours as needed for Anxiety. lithium 2023-0 Yes [id number] 150mg Take 0.5 Univers carbonate 1-10 tablets by ity of 300 mg 00:00: mouth in [place] tablet 00 the Medical morning. Branch QUEtiapine 3-0 Yes [id number] 50mg Take 1 Univers 50 mg 1-10 tablet by ity of tablet 00:00: mouth at [place] 00 bedtime as Medical needed for Branch Insomnia. gabapentin 2023-0 Yes [id number] 600mg Take 2 Univers 300 mg 1-10 9102 capsules ity of capsule 00:00: by mouth [place] 00 in the Medical morning Branch and 2 capsules at noon and 2 capsules in the evening. hydrOXYzine 2023-0 Yes [id number] 25mg Take 1 Univers 25 mg 1-10 tablet by ity of tablet 00:00: mouth [place] 00 every 6 Medical (six) Branch hours as needed for Anxiety. lithium 2023-0 Yes [id number] 150mg Take 0.5 Univers carbonate 1-10 tablets by ity of 300 mg 00:00: mouth in [place] tablet 00 the Medical morning. Branch QUEtiapine 2023-0 Yes [id number] 50mg Take 1 Univers 50 mg 1-10 tablet by ity of tablet 00:00: mouth at [place] 00 bedtime as Medical needed for Branch Insomnia. gabapentin 3-0 Yes [id number] 600mg Take 2 Univers 300 mg 1-10 9102 capsules ity of capsule 00:00: by mouth [place] 00 in the Medical morning Branch and 2 capsules at noon and 2 capsules in the evening. hydrOXYzine 2023-0 Yes [id number] 25mg Take 1 Univers 25 mg 1-10 tablet by ity of tablet 00:00: mouth [place] 00 every 6 Medical (six) Branch hours as needed for Anxiety. lithium 2023-0 Yes [id number] 150mg Take 0.5 Univers carbonate 1-10 tablets by ity of 300 mg 00:00: mouth in [place] tablet 00 the Medical morning. Branch QUEtiapine 2023-0 Yes [id number] 50mg Take 1 Univers 50 mg 1-10 tablet by ity of tablet 00:00: mouth at [place] 00 bedtime as Medical needed for Branch Insomnia. gabapentin 2023-0 Yes [id number] 600mg Take 2 Univers 300 mg 1-10 9102 capsules ity of capsule 00:00: by mouth [place] 00 in the Medical morning Branch and 2 capsules at noon and 2 capsules in the evening. hydrOXYzine 2023-0 Yes [id number] 25mg Take 1 Univers 25 mg 1-10 tablet by ity of tablet 00:00: mouth [place] 00 every 6 Medical (six) Branch hours as needed for Anxiety. lithium 2023-0 Yes [id number] 150mg Take 0.5 Univers carbonate 1-10 tablets by ity of 300 mg 00:00: mouth in [place] tablet 00 the Medical morning. Branch QUEtiapine 2022-0 Yes [id number] 50mg Take 1 Univers 50 mg 1-10 tablet by ity of tablet 00:00: mouth at [place] 00 bedtime as Medical needed for Branch Insomnia. gabapentin 2022-0 Yes [id number] 600mg Take 2 Univers 300 mg 1-10 9102 capsules ity of capsule 00:00: by mouth [place] 00 in the Medical morning Branch and 2 capsules at noon and 2 capsules in the evening. hydrOXYzine 2022-0 Yes [id number] 25mg Take 1 Univers 25 mg 1-10 tablet by ity of tablet 00:00: mouth [place] 00 every 6 Medical (six) Branch hours as needed for Anxiety. lithium 2022-0 Yes [id number] 150mg Take 0.5 Univers carbonate 1-10 tablets by ity of 300 mg 00:00: mouth in [place] tablet 00 the Medical morning. Branch QUEtiapine 2022-0 Yes [id number] 50mg Take 1 Univers 50 mg 1-10 tablet by ity of tablet 00:00: mouth at [place] 00 bedtime as Medical needed for Branch Insomnia. gabapentin 2022-0 Yes [id number] 600mg Take 2 Univers 300 mg 1-10 9102 capsules ity of capsule 00:00: by mouth [place] 00 in the Medical morning Branch and 2 capsules at noon and 2 capsules in the evening. hydrOXYzine 2022-0 Yes [id number] 25mg Take 1 Univers 25 mg 1-10 tablet by ity of tablet 00:00: mouth [place] 00 every 6 Medical (six) Branch hours as needed for Anxiety. methocarbam 2022-0 2022- No [id number] 750mg Take 1 Univers oL 750 mg 1-10 02-10 9102 tablet by ity of tablet 00:00: 05:59 mouth 4 [place] 00 :00 (four) Medical times Branch daily for 30 days. methocarbam 2022-0 2022- No [id number] 750mg Take 1 Univers oL 750 mg 1-10 02-10 9102 tablet by ity of tablet 00:00: 05:59 mouth 4 [place] 00 :00 (four) Medical times Branch daily for 30 days. methocarbam 2022-0 2022- No [id number] 750mg Take 1 Univers oL 750 mg 1-10 02-10 9102 tablet by ity of tablet 00:00: 05:59 mouth 4 [place] 00 :00 (four) Medical times Branch daily for 30 days. methocarbam No [id number] 750mg Take 1 Univers oL 750 mg 04-25 9102 tablet by ity of tablet 00:00: 05:59 mouth 4 [place] 00 :00 (four) Medical times Branch daily for 30 days. methocarbam 2022- No [id number] 750mg Take 1 Univers oL 750 mg 04-25 9102 tablet by ity of tablet 00:00: 05:59 mouth 4 [place] 00 :00 (four) Medical times Branch daily for 30 days. methocarbam No [id number] 750mg Take 1 Univers oL 750 mg 04-25 9102 tablet by ity of tablet 00:00: 05:59 mouth 4 [place] 00 :00 (four) Medical times Branch daily for 30 days. methocarbam No [id number] 750mg Take 1 Univers oL 750 mg 04-25 9102 tablet by ity of tablet 00:00: 05:59 mouth 4 [place] 00 :00 (four) Medical times Branch daily for 30 days. methocarbam 2022- No [id number] 750mg Take 1 Univers oL 750 mg [...] MCG 00:00: TABS 00 amphetamine 2021-04 Yes [id number] 30mg Take 30 mg Univers -dextroamph 0-20 by mouth ity of etamine 30 00:00: in the [place] mg 24 hr 00 morning Medical capsule and 30 mg Branch in the evening. amphetamine 2021- Yes [id number] 30mg Take 30 mg Univers -dextroamph 0-20 by mouth ity of etamine 30 00:00: in the [place] mg 24 hr 00 morning Medical capsule and 30 mg Branch in the evening. amphetamine 2021-1 Yes [id number] 30mg Take 30 mg Univers -dextroamph 0-20 by mouth ity of etamine 30 00:00: in the [place] mg 24 hr 00 morning Medical capsule and 30 mg Branch in the evening. amphetamine 2021-1 Yes [id number] 30mg Take 30 mg Univers -dextroamph 0-20 by mouth ity of etamine 30 00:00: in the [place] mg 24 hr 00 morning Medical capsule and 30 mg Branch in the evening. amphetamine 2021-1 Yes [id number] 30mg Take 30 mg [facility] -dextroamph 0-20 by mouth ity of etamine 30 00:00: in the [place] mg 24 hr 00 morning Medical capsule and 30 mg Branch in the evening. amphetamine 2021-1 Yes [id number] 30mg Take 30 mg [facility] -dextroamph 0-20 by mouth ity of etamine 30 00:00: in the [place] mg 24 hr 00 morning Medical capsule and 30 mg Branch in the evening. amphetamine 2021-1 Yes [id number] 30mg Take 30 mg [facility] -dextroamph 0-20 by mouth ity of etamine 30 00:00: in the [place] mg 24 hr 00 morning Medical capsule and 30 mg Branch in the evening. amphetamine 2021-1 Yes [id number] 30mg Take 30 mg [facility] -dextroamph 0-20 by mouth ity of etamine 30 00:00: in the [place] mg 24 hr 00 morning Medical capsule and 30 mg Branch in the evening. amphetamine 2021-1 Yes [id number] 30mg Take 30 mg [facility] -dextroamph 0-20 by mouth ity of etamine 30 00:00: in the [place] mg 24 hr 00 morning Medical capsule and 30 mg Branch in the evening. amphetamine 2021-1 Yes [id number] 30mg Take 30 mg [facility] -dextroamph 0-20 by mouth ity of etamine 30 00:00: in the [place] mg 24 hr 00 morning Medical capsule and 30 mg Branch in the evening. amphetamine 2021-1 Yes [id number] 30mg Take 30 mg [facility] -dextroamph 0-20 by mouth ity of etamine 30 00:00: in the [place] mg 24 hr 00 morning Medical capsule and 30 mg Branch in the evening. amphetamine 2021-04 Yes [id number] 30mg Take 30 mg [facility] -dextroamph 0-20 by mouth ity of etamine 30 00:00: in the [place] mg 24 hr 00 morning Medical capsule and 30 mg Branch in the evening. amphetamine 2021-04 Yes [id number] 30mg Take 30 mg [facility] -dextroamph 0-20 by mouth ity of etamine 30 00:00: in the [place] mg 24 hr 00 morning Medical capsule and 30 mg Branch in the evening. amphetamine 2021-04 Yes [id number] 30mg Take 30 mg [facility] -dextroamph 0-20 by mouth ity of etamine 30 00:00: in the [place] mg 24 hr 00 morning Medical capsule and 30 mg Branch in the evening. amphetamine 2021-04 Yes [id number] 30mg Take 30 mg [facility] -dextroamph 0-20 by mouth ity of etamine 30 00:00: in the [place] mg 24 hr 00 morning Medical capsule and 30 mg Branch in the evening. amphetamine 2021-04 Yes [id number] 30mg Take 30 mg [facility] -dextroamph 0-20 by mouth ity of etamine 30 00:00: in the [place] mg 24 hr 00 morning Medical capsule and 30 mg Branch in the evening. amphetamine 2021-04 Yes [id number] 30mg Take 30 mg [facility] -dextroamph 0-20 [...] 00:00: 00:00 [place] 00 :00 Medical Branch SYMBICORT 2021-04 Yes INHALE 2 Univ ers 160-4.5 0-14 PUFFS ity of mcg/actuati 00:00: TWICE [place] on inhaler 00 DAILY. Medical RINSE Branch MOUTH AFTER USE. SYMBICORT 2021-04 Yes INHALE 2 Univ ers 160-4.5 0-14 PUFFS ity of mcg/actuati 00:00: TWICE [place] on inhaler 00 DAILY. Medical RINSE Branch MOUTH AFTER USE. SYMBICORT 2021-04 Yes INHALE 2 Univ ers 160-4.5 0-14 PUFFS ity of mcg/actuati 00:00: TWICE [place] on inhaler 00 DAILY. Medical RINSE Branch [...] [place] 00 :00 Medical Branch PROAIR HFA 2021-04 [...] TAB 2022-0 No 10 ONCE A DAY 8 (DAILY) FOR 00:00: ASTHMA 00 TAKE 1 [...] DAY 8-11 (DAILY) FOR 00:00: ASTHMA 00 Dose 2022-0 No 1 Unknown 8-10 [...] 00 &lt 2022-0 No 8-10 00:00: 00 TAKE 1 2022-0 No 20 CAPSULE [...] 2021-0 No Unknown 7- 00:00: 00 &lt 2-0 No 300 7- 00:00: 00 Dose 2021-0 No Unknown 7- 00:00: 00 &lt 2021-0 No 300 7- [...] 5-20 tablet 00:00: 00 FLUTICASONE 2019-04 Yes [id number] SHAKE U nivers PROPIONATE 0-15 LIQUID AND ity of 50 00:00: USE 2 [place] mcg/actuati 00 SPRAYS IN Med ical on nasal EACH Branch spray NOSTRIL DAILY FLUTICASONE 2019-04 Yes [id number] SHAKE U nivers PROPIONATE 0-15 LIQUID AND ity of 50 00:00: USE 2 [place] mcg/actuati 00 SPRAYS IN Med ical on nasal EACH Branch spray NOSTRIL DAILY FLUTICASONE 2019-04 Yes [id number] SHAKE U nivers PROPIONATE 0-15 LIQUID AND ity of 50 00:00: USE 2 [place] mcg/actuati 00 SPRAYS IN Med ical on nasal EACH Branch spray NOSTRIL DAILY FLUTICASONE 2019-04 Yes [id number] SHAKE U nivers PROPIONATE 0-15 LIQUID AND ity of 50 00:00: USE 2 [place] mcg/actuati 00 SPRAYS IN Med ical on nasal EACH Branch spray NOSTRIL DAILY FLUTICASONE 2019-04 Yes [id number] SHAKE U nivers PROPIONATE 0-15 LIQUID AND ity of 50 00:00: USE 2 [place] mcg/actuati 00 SPRAYS IN Med ical on nasal EACH Branch spray NOSTRIL DAILY FLUTICASONE 2019-04 Yes [id number] SHAKE U nivers PROPIONATE 0-15 LIQUID AND ity of 50 00:00: USE 2 [place] mcg/actuati 00 SPRAYS IN Med ical on nasal EACH Branch spray NOSTRIL DAILY FLUTICASONE 2019-04 Yes [id number] SHAKE U nivers PROPIONATE 0-15 LIQUID AND ity of 50 00:00: USE 2 [place] mcg/actuati 00 SPRAYS IN Med ical on nasal EACH Branch spray NOSTRIL DAILY FLUTICASONE 2019-04 Yes [id number] SHAKE U nivers PROPIONATE 0-15 LIQUID AND ity of 50 00:00: USE 2 [place] mcg/actuati 00 SPRAYS IN Med ical on nasal EACH Branch spray NOSTRIL DAILY FLUTICASONE 2020- Yes [id number] SHAKE U nivers PROPIONATE 0-15 LIQUID AND ity of 50 00:00: USE 2 [place] mcg/actuati 00 SPRAYS IN Med ical on nasal EACH Branch spray NOSTRIL DAILY FLUTICASONE 2019-04 Yes [id number] SHAKE U nivers PROPIONATE 0-15 LIQUID AND ity of 50 00:00: USE 2 [place] mcg/actuati 00 SPRAYS IN Med ical on nasal EACH Branch spray NOSTRIL DAILY FLUTICASONE 2019-04 Yes [id number] SHAKE U nivers PROPIONATE 0-15 LIQUID AND ity of 50 00:00: USE 2 [place] mcg/actuati 00 SPRAYS IN Med ical on nasal EACH Branch spray NOSTRIL DAILY FLUTICASONE 2019-04 Yes [id number] SHAKE U nivers PROPIONATE 0-15 LIQUID AND ity of 50 00:00: USE 2 [place] mcg/actuati 00 SPRAYS IN Med ical on nasal EACH Branch spray NOSTRIL DAILY FLUTICASONE 2019-04 Yes [id number] SHAKE U nivers PROPIONATE 0-15 LIQUID AND ity of 50 00:00: USE 2 [place] mcg/actuati 00 SPRAYS IN Med ical on nasal EACH Branch spray NOSTRIL DAILY FLUTICASONE 2019-04 Yes [id number] SHAKE U nivers PROPIONATE 0-15 LIQUID AND ity of 50 00:00: USE 2 [place] mcg/actuati 00 SPRAYS IN Med ical on nasal EACH Branch spray NOSTRIL DAILY FLUTICASONE 2019- Yes [id number] SHAKE U nivers PROPIONATE 0-15 LIQUID AND ity of 50 00:00: USE 2 [place] mcg/actuati 00 SPRAYS IN Med ical on nasal EACH Branch spray NOSTRIL DAILY FLUTICASONE 2019-04 Yes [id number] SHAKE U nivers PROPIONATE 0-15 LIQUID AND ity of 50 00:00: USE 2 [place] mcg/actuati 00 SPRAYS IN Med ical on nasal EACH Branch spray NOSTRIL DAILY FLUTICASONE 2019- Yes [id number] SHAKE U nivers PROPIONATE 0-15 LIQUID AND ity of 50 00:00: USE 2 [place] mcg/actuati 00 SPRAYS IN Med ical on nasal EACH Branch spray NOSTRIL DAILY FLUTICASONE 2019-04 Yes [id number] SHAKE U nivers PROPIONATE 0-15 LIQUID AND ity of 50 00:00: USE 2 [place] mcg/actuati 00 SPRAYS IN Med ical on nasal EACH Branch spray NOSTRIL DAILY FLUTICASONE 2019-04 Yes [id number] SHAKE U nivers PROPIONATE 0-15 LIQUID AND ity of 50 00:00: USE 2 [place] mcg/actuati 00 SPRAYS IN Med ical on nasal EACH Branch spray NOSTRIL DAILY FLUTICASONE 2019-04 Yes [id number] SHAKE U nivers PROPIONATE 0-15 LIQUID AND ity of 50 00:00: USE 2 [place] mcg/actuati 00 SPRAYS IN Med ical on nasal EACH Branch spray NOSTRIL DAILY FLUTICASONE 2019-04 Yes [id number] SHAKE U nivers PROPIONATE 0-15 LIQUID AND ity of 50 00:00: USE 2 [place] mcg/actuati 00 SPRAYS IN Med ical on nasal EACH Branch spray NOSTRIL DAILY doxycycline 2019-0 Yes [id number] 100mg Take 1 [facility] monohydrate 8-20 capsule by it y of 100 mg 00:00: mouth 2 [place] capsule 00 (two) Medical times Branch daily. doxycycline 2020-0 Yes [id number] 100mg Take 1 [facility] monohydrate 8-20 capsule by it y of 100 mg 00:00: mouth 2 [place] capsule 00 (two) Medical times Branch daily. doxycycline 2020-0 Yes [id number] 100mg Take 1 [facility] monohydrate 8-20 capsule by it y of 100 mg 00:00: mouth 2 [place] capsule 00 (two) Medical times Branch daily. doxycycline 2020-0 Yes [id number] 100mg Take 1 [facility] monohydrate 8-20 capsule by it y of 100 mg 00:00: mouth 2 [place] capsule 00 (two) Medical times Branch daily. doxycycline 2020-0 Yes [id number] 100mg Take 1 [facility] monohydrate 8-20 capsule by it y of 100 mg 00:00: mouth 2 [place] capsule 00 (two) Medical times Branch daily. doxycycline 2020-0 Yes [id number] 100mg Take 1 [facility] monohydrate 8-20 capsule by it y of 100 mg 00:00: mouth 2 [place] capsule 00 (two) Medical times Branch daily. doxycycline 2020-0 Yes [id number] 100mg Take 1 [facility] monohydrate 8-20 capsule by it y of 100 mg 00:00: mouth 2 [place] capsule 00 (two) Medical times Branch daily. doxycycline 2020-0 Yes [id number] 100mg Take 1 [facility] monohydrate 8-20 capsule by it y of 100 mg 00:00: mouth 2 [place] capsule 00 (two) Medical times Branch daily. doxycycline 2020-0 Yes [id number] 100mg Take 1 [facility] monohydrate 8-20 capsule by it y of 100 mg 00:00: mouth 2 [place] capsule 00 (two) Medical times Branch daily. doxycycline 2020-0 Yes [id number] 100mg Take 1 [facility] monohydrate 8-20 capsule by it y of 100 mg 00:00: mouth 2 [place] capsule 00 (two) Medical times Branch daily. doxycycline 2022- No [id number] 100mg Take 1 [facility] monohydrate 8-20 01-10 capsule by i ty of 100 mg 00:00: 00:00 mouth 2 [place] capsule 00 :00 (two) Medical times Branch daily. doxycycline 2019-2022- No [id number] 100mg Take 1 [facility] monohydrate 8-20 01-10 capsule by i ty of 100 mg 00:00: 00:00 mouth 2 [place] capsule 00 :00 (two) Medical times Branch daily. doxycycline 2019-0 2022- No [id number] 100mg Take 1 [facility] monohydrate 8-20 01-10 capsule by i ty of 100 mg 00:00: 00:00 mouth 2 [place] capsule 00 :00 (two) Medical times Branch daily. doxycycline 2019-0 2022- No [id number] 100mg Take 1 [facility] monohydrate 8-20 01-10 capsule by i ty of 100 mg 00:00: 00:00 mouth 2 [place] capsule 00 :00 (two) Medical times Branch daily. doxycycline 2019-2022- No [id number] 100mg Take 1 [facility] monohydrate 8-20 01-10 capsule by i ty of 100 mg 00:00: 00:00 mouth 2 [place] capsule 00 :00 (two) Medical times Branch daily. doxycycline 2019-3- No [id number] 100mg Take 1 [facility] monohydrate 8-20 01-10 capsule by i ty of 100 mg 00:00: 00:00 mouth 2 [place] capsule 00 :00 (two) Medical times Branch daily. pantoprazol 2019-0 Yes [id number] 40mg Take 1 [facility] e 40 mg EC 8-18 tablet by ity of tablet 00:00: mouth once [place] 00 daily as Medical needed for Branch Indigestio n. LORazepam 1 2019-0 Yes [id number] 1mg Take 1 [facility] mg tablet 8-18 tablet by ity o f 00:00: mouth once [place] 00 daily as Medical needed for Branch Anxiety or Agitation. pantoprazol 2020-0 Yes [id number] 40mg Take 1 [facility] e 40 mg EC 8-18 tablet by ity of tablet 00:00: mouth once [place] 00 daily as Medical needed for Branch Indigestio n. LORazepam 1 2019-0 Yes [id number] 1mg Take 1 [facility] mg tablet 8-18 tablet by ity o f 00:00: mouth once [place] 00 daily as Medical needed for Branch Anxiety or Agitation. pantoprazol 2019-0 Yes [id number] 40mg Take 1 [facility] e 40 mg EC 8-18 tablet by ity of tablet 00:00: mouth once [place] 00 daily as Medical needed for Branch Indigestio n. LORazepam 1 2019-0 Yes [id number] 1mg Take 1 [facility] mg tablet 8-18 tablet by ity o f 00:00: mouth once [place] 00 daily as Medical needed for Branch Anxiety or Agitation. pantoprazol 2019-0 Yes [id number] 40mg Take 1 [facility] e 40 mg EC 8-18 tablet by ity of tablet 00:00: mouth once [place] 00 daily as Medical needed for Branch Indigestio n. LORazepam 1 2019-0 Yes [id number] 1mg Take 1 [facility] mg tablet 8-18 tablet by ity o f 00:00: mouth once [place] 00 daily as Medical needed for Branch Anxiety or Agitation. pantoprazol 2019-0 Yes [id number] 40mg Take 1 [facility] e 40 mg EC 8-18 tablet by ity of tablet 00:00: mouth once [place] 00 daily as Medical needed for Branch Indigestio n. LORazepam 1 2019-0 Yes [id number] 1mg Take 1 [facility] mg tablet 8-18 tablet by ity o f 00:00: mouth once [place] 00 daily as Medical needed for Branch Anxiety or Agitation. pantoprazol 2019-0 Yes [id number] 40mg Take 1 [facility] e 40 mg EC 8-18 tablet by ity of tablet 00:00: mouth once [place] 00 daily as Medical needed for Branch Indigestio n. LORazepam 1 2019-0 Yes [id number] 1mg Take 1 [facility] mg tablet 8-18 tablet by ity o f 00:00: mouth once [place] 00 daily as Medical needed for Branch Anxiety or Agitation. pantoprazol 2020-0 Yes [id number] 40mg Take 1 [facility] e 40 mg EC 8-18 tablet by ity of tablet 00:00: mouth once [place] 00 daily as Medical needed for Branch Indigestio n. LORazepam 1 2019-0 Yes [id number] 1mg Take 1 [facility] mg tablet 8-18 tablet by ity o f 00:00: mouth once [place] 00 daily as Medical needed for Branch Anxiety or Agitation. pantoprazol 2020-0 Yes [id number] 40mg Take 1 [facility] e 40 mg EC 8-18 tablet by ity of tablet 00:00: mouth once [place] 00 daily as Medical needed for Branch Indigestio n. LORazepam 1 2019-0 Yes [id number] 1mg Take 1 [facility] mg tablet 8-18 tablet by ity o f 00:00: mouth once [place] 00 daily as Medical needed for Branch Anxiety or Agitation. pantoprazol 2019-0 Yes [id number] 40mg Take 1 [facility] e 40 mg EC 8-18 tablet by ity of tablet 00:00: mouth once [place] 00 daily as Medical needed for Branch Indigestio n. LORazepam 1 2019-0 Yes [id number] 1mg Take 1 [facility] mg tablet 8-18 tablet by ity o f 00:00: mouth once [place] 00 daily as Medical needed for Branch Anxiety or Agitation. pantoprazol 2020-0 Yes [id number] 40mg Take 1 [facility] e 40 mg EC 8-18 tablet by ity of tablet 00:00: mouth once [place] 00 daily as Medical needed for Branch Indigestio n. LORazepam 1 2019-0 Yes [id number] 1mg Take 1 [facility] mg tablet 8-18 tablet by ity o f 00:00: mouth once [place] 00 daily as Medical needed for Branch Anxiety or Agitation. pantoprazol 2020-0 Yes [id number] 40mg Take 1 [facility] e 40 mg EC 8-18 tablet by ity of tablet 00:00: mouth once [place] 00 daily as Medical needed for Branch Indigestio n. LORazepam 1 2019-0 Yes [id number] 1mg Take 1 [facility] mg tablet 8-18 tablet by ity o f 00:00: mouth once [place] 00 daily as Medical needed for Branch Anxiety or Agitation. pantoprazol Yes [id number] 40mg Take 1 [facility] e 40 mg EC 8-18 tablet by ity of tablet 00:00: mouth once [place] 00 daily as Medical needed for Branch Indigestio n. LORazepam 1 Yes [id number] 1mg Take 1 [facility] mg tablet 8-18 tablet by ity o f 00:00: mouth once [place] 00 daily as Medical needed for Branch Anxiety or Agitation. pantoprazol Yes [id number] 40mg Take 1 [facility] e 40 mg EC 8-18 tablet by ity of tablet 00:00: mouth once [place] 00 daily as Medical needed for Branch Indigestio n. LORazepam 1 Yes [id number] 1mg Take 1 [facility] mg tablet 8-18 tablet by ity o f 00:00: mouth once [place] 00 daily as Medical needed for Branch Anxiety or Agitation. pantoprazol No [id number] 40mg Take 1 [facility] e 40 mg EC 8-18 -10 tablet by ity of tablet 00:00: 00:00 mouth once [place] 00 :00 daily as Medical needed for Branch Indigestio n. LORazepam 1 2022- No [id number] 1mg Take 1 [facility] mg tablet 804-25 tablet by ity of 00:00: 00:00 mouth once [place] 00 :00 daily as Medical needed for Branch Anxiety or Agitation. pantoprazol No [id number] 40mg Take 1 [facility] e 40 mg EC 8-18 10 tablet by ity of tablet 00:00: 00:00 mouth once [place] 00 :00 daily as Medical needed for Branch Indigestio n. LORazepam 1 2022- No [id number] 1mg Take 1 [facility] mg tablet 8-18 -10 tablet by ity of 00:00: 00:00 mouth once [place] 00 :00 daily as Medical needed for Branch Anxiety or Agitation. pantoprazol 2022- No [id number] 40mg Take 1 [facility] e 40 mg EC 8-18 -10 tablet by ity of tablet 00:00: 00:00 mouth once [place] 00 :00 daily as Medical needed for Branch Indigestio n. LORazepam 1 2022- No [id number] 1mg Take 1 [facility] mg tablet 8-18 04-25 tablet by ity of 00:00: 00:00 mouth once [place] 00 :00 daily as Medical needed for Branch Anxiety or Agitation. pantoprazol No [id number] 40mg Take 1 [facility] e 40 mg EC 12-0110 tablet by ity of tablet 00:00: 00:00 mouth once [place] 00 :00 daily as Medical needed for Branch Indigestio n. LORazepam 1 No [id number] 1mg Take 1 [facility] mg tablet 12-0110 tablet by ity of 00:00: 00:00 mouth once [place] 00 :00 daily as Medical needed for Branch Anxiety or Agitation. pantoprazol No [id number] 40mg Take 1 [facility] e 40 mg EC 12-01 tablet by ity of tablet 00:00: 00:00 mouth once [place] 00 :00 daily as Medical needed for Branch Indigestio n. LORazepam 1 No [id number] 1mg Take 1 [facility] mg tablet 12-01 tablet by ity of 00:00: 00:00 mouth once [place] 00 :00 daily as Medical needed for Branch Anxiety or Agitation. pantoprazol No [id number] 40mg Take 1 [facility] e 40 mg EC 12-01 tablet by ity of tablet 00:00: 00:00 mouth once [place] 00 :00 daily as Medical needed for Branch Indigestio n. LORazepam 1 No [id number] 1mg Take 1 [facility] mg tablet 12-01 tablet by ity of 00:00: 00:00 mouth once [place] 00 :00 daily as Medical needed for Branch Anxiety or Agitation. doxycycline 2019- No [id number] 100mg Take 1 [facility] hyclate 100 12-01- capsule by i ty of mg capsule 00:00: 04:59 mouth [place] 00 :00 every 12 Medical (twelve) Branch hours for 14 days. doxycycline 2019- No [id number] 100mg Take 1 [facility] hyclate 100 12-01- capsule by i ty of mg capsule 00:00: 04:59 mouth [place] 00 :00 every 12 Medical (twelve) Branch hours for 14 days. doxycycline 2020-0 2020- No [id number] 100mg Take 1 [facility] hyclate 100 818 09-02 capsule by i ty of mg capsule 00:00: 04:59 mouth [place] 00 :00 every 12 Medical (twelve) Branch hours for 14 days. doxycycline 2020-0 2020- No [id number] 100mg Take 1 [facility] hyclate 100 818 08-20 capsule by i ty of mg capsule 00:00: 00:00 mouth [place] 00 :00 every 12 Medical (twelve) Branch hours for 14 days. FLUoxetine 2020-0 Yes 60mg Take 60 mg U nivers 60 mg 7-23 by mouth ity of tablet 00:00: daily. [address] FLUoxetine 2020-0 Yes 60mg Take 60 mg U nivers 60 mg 7-23 by mouth ity of tablet 00:00: daily. [address] FLUoxetine 2020-0 Yes 60mg Take 60 mg U nivers 60 mg 7-23 by mouth ity of tablet 00:00: daily. [address] FLUoxetine 2020-0 Yes 60mg Take 60 mg U nivers 60 mg 7-23 by mouth ity of tablet 00:00: daily. [address] FLUoxetine 2020-0 Yes 60mg Take 60 mg U nivers 60 mg 7-23 by mouth ity of tablet 00:00: daily. [address] FLUoxetine 2020-0 Yes 60mg Take 60 mg U nivers 60 mg 7-23 by mouth ity of tablet 00:00: daily. [address] FLUoxetine 2020-0 Yes 60mg Take 60 mg U nivers 60 mg 7-23 by mouth ity of tablet 00:00: daily. [address] FLUoxetine 2020-0 Yes 60mg Take 60 mg U nivers 60 mg 7-23 by mouth ity of tablet 00:00: daily. [address] FLUoxetine 2020-0 Yes 60mg Take 60 mg U nivers 60 mg 7-23 by mouth ity of tablet 00:00: daily. [address] FLUoxetine 2020-0 Yes 60mg Take 60 mg U nivers 60 mg 7-23 by mouth ity of tablet 00:00: daily. [address] FLUoxetine 2020-0 Yes 60mg Take 60 mg U nivers 60 mg 7-23 by mouth ity of tablet 00:00: daily. [address] FLUoxetine 2020-0 Yes 60mg Take 60 mg U nivers 60 mg 7-23 by mouth ity of tablet 00:00: daily. [address] FLUoxetine 2020-0 Yes 60mg Take 60 mg U nivers 60 mg 7-23 by mouth ity of tablet 00:00: daily. [place] [facility] FLUoxetine 2020-0 Yes 60mg Take 60 mg U nivers 60 mg 7-23 by mouth ity of tablet 00:00: daily. [place] [facility] FLUoxetine 2020-0 Yes 60mg Take 60 mg U nivers 60 mg 7-23 by mouth ity of tablet 00:00: daily. [place] [facility] FLUoxetine 2020-0 Yes 60mg Take 60 mg U nivers 60 mg 7-23 by mouth ity of tablet 00:00: daily. [address] FLUoxetine 2020-0 Yes 60mg Take 60 mg U nivers 60 mg 7-23 by mouth ity of tablet 00:00: daily. [address] FLUoxetine 2020-0 Yes 60mg Take 60 mg U nivers 60 mg 7-23 by mouth ity of tablet 00:00: daily. [address] FLUoxetine 2020-0 Yes 60mg Take 60 mg U nivers 60 mg 7-23 by mouth ity of tablet 00:00: daily. [address] FLUoxetine 2020-0 Yes 60mg Take 60 mg U nivers 60 mg 7-23 by mouth ity of tablet 00:00: daily. [address] FLUoxetine 2020-0 Yes 60mg Take 60 mg U nivers 60 mg 7-23 by mouth ity of tablet 00:00: daily. [address] FLUoxetine 2020-0 Yes 60mg Take 60 mg U nivers 60 mg 7-23 by mouth ity of tablet 00:00: daily. [address] FLUoxetine 2020-0 Yes 60mg Take 60 mg U nivers 60 mg 7-23 by mouth ity of tablet 00:00: daily. [address] FLUoxetine 2020-0 Yes 60mg Take 60 mg U nivers 60 mg 7-23 by mouth ity of tablet 00:00: daily. [address] FLUoxetine 2020-0 Yes 60mg Take 60 mg U nivers 60 mg 7-23 by mouth ity of tablet 00:00: daily. [address] FLUoxetine 2020-0 Yes 60mg Take 60 mg U nivers 60 mg 7-23 by mouth ity of tablet 00:00: daily. [address] FLUoxetine 2020-0 Yes 60mg Take 60 [...] of tablet 00:00: daily. [place] [facility] QUEtiapine 2020-0 Yes 200mg Take 200 Un maria isabel 200 mg 7-21 mg by ity of tablet 00:00: mouth at [place] [address] bedtime. Medical Branch QUEtiapine 2020-0 Yes 200mg Take 200 Un maria [place] 200 mg 7-21 mg by ity of tablet 00:00: mouth at [place] [address] bedtime. Medical Branch QUEtiapine 2020-0 Yes 200mg Take 200 Un mar[place] 200 mg 7-21 mg by ity of tablet 00:00: mouth at [place] [address] bedtime. Medical Branch QUEtiapine 2020-0 Yes 200mg Take 200 Un mar[place] 200 mg 7-21 mg by ity of tablet 00:00: mouth at [place] [address] bedtime. Medical Branch QUEtiapine 2020-0 Yes 200mg Take 200 Un mar[place] 200 mg 7-21 mg by ity of tablet 00:00: mouth at [place] [address] bedtime. Medical Branch QUEtiapine 2020-0 Yes 200mg Take 200 Un mar[place] 200 mg 7-21 mg by ity of tablet 00:00: mouth at [place] [address] bedtime. Medical Branch QUEtiapine 2020-0 Yes 200mg Take 200 Un mar[place] 200 mg 7-21 mg by ity of tablet 00:00: mouth at [place] [address] bedtime. Medical Branch QUEtiapine 2020-0 Yes 200mg Take 200 Un [place] 200 mg 7-21 mg by ity of tablet 00:00: mouth at [place] [address] bedtime. Medical Branch QUEtiapine 2020-0 Yes 200mg Take 200 Un mar[place] 200 mg 7-21 mg by ity of tablet 00:00: mouth at [place] [address] bedtime. Medical Branch QUEtiapine 2020-0 Yes 200mg Take 200 Un [place] 200 mg 7-21 mg by ity of tablet 00:00: mouth at [place] [address] bedtime. Medical Branch QUEtiapine 2020-0 Yes 200mg Take 200 Un [place] 200 mg 7-21 mg by ity of tablet 00:00: mouth at [place] [address] bedtime. Medical Branch QUEtiapine 2020-0 Yes 200mg Take 200 Un [place] 200 mg 7-21 mg by ity of tablet 00:00: mouth at [place] [address] bedtime. Medical Branch QUEtiapine 2020-0 Yes 200mg Take 200 Un [place] 200 mg 7-21 mg by ity of tablet 00:00: mouth at [place] [address] bedtime. Medical Branch QUEtiapine 2020-0 3- No 200mg Take 200 U nivers 200 mg 7-21 01-10 mg by ity of tablet 00:00: 00:00 mouth at [place] 00 :00 bedtime. Medical Branch QUEtiapine 2019-0 3- No 200mg Take 200 U nivers 200 mg 7-21 01-10 mg by ity of tablet 00:00: 00:00 mouth at [place] 00 :00 bedtime. Medical Branch QUEtiapine 2019-0 3- No 200mg Take 200 U nivers 200 mg 7-21 01-10 mg by ity of tablet 00:00: 00:00 mouth at [place] 00 :00 bedtime. Medical Branch QUEtiapine 2019-0 3- No 200mg Take 200 U nivers 200 mg 7-21 01-10 mg by ity of tablet 00:00: 00:00 mouth at [place] 00 :00 bedtime. Medical Branch QUEtiapine 2019-0 3- No 200mg Take 200 U nivers 200 mg 7-21 01-10 mg by ity of tablet 00:00: 00:00 mouth at [place] 00 :00 bedtime. Medical Branch QUEtiapine 2020-0 2023- No 200mg Take 200 U nivers 200 mg 7-21 01-10 mg by ity of tablet 00:00: 00:00 mouth at [place] 00 :00 bedtime. Medical Branch pantoprazol 2020-0 Yes [id number] 40mg Take 1 [facility] e 40 mg EC 6-23 tablet by ity of tablet 00:00: mouth once [place] 00 daily as Medical needed for Branch Indigestio n. pantoprazol 2020-0 Yes [id number] 40mg Take 1 [facility] e 40 mg EC 6-23 tablet by ity of tablet 00:00: mouth once [place] 00 daily as Medical needed for Branch Indigestio n. pantoprazol 2019-0 Yes [id number] 40mg Take 1 [facility] e 40 mg EC 6-23 tablet by ity of tablet 00:00: mouth once [place] 00 daily as Medical needed for Branch Indigestio n. pantoprazol 2019-0 2020- No [id number] 40mg Take 1 [facility] e 40 mg EC 6-23 08-18 tablet by ity of tablet 00:00: 00:00 mouth once [place] 00 :00 daily as Medical needed for Branch Indigestio n. pantoprazol 2019-0 2020- No [id number] 40mg Take 1 [facility] e 40 mg EC 6-23 08-18 tablet by ity of tablet 00:00: 00:00 mouth once [place] 00 :00 daily as Medical needed for Branch Indigestio n. fluticasone 2019-0 Yes [id number] 2{spray Use 2 [facility] propionate 6-16 } Sprays in ity of (FLONASE 00:00: each [place] ALLERGY 00 nostril Medical RELIEF) 50 daily. Branch mcg/actuati on nasal spray LORazepam 1 2019-0 Yes [id number] 1mg Take 1 [facility] mg tablet 6-16 tablet by ity o f 00:00: mouth once [place] 00 daily as Medical needed for Branch Anxiety or Agitation. fluticasone 2020-0 Yes [id number] 2{spray Use 2 [facility] propionate 6-16 } Sprays in ity of (FLONASE 00:00: each [place] ALLERGY 00 nostril Medical RELIEF) 50 daily. Branch mcg/actuati on nasal spray LORazepam 1 2019-0 Yes [id number] 1mg Take 1 [facility] mg tablet 6-16 tablet by ity o f 00:00: mouth once [place] 00 daily as Medical needed for Branch Anxiety or Agitation. fluticasone 2020-0 Yes [id number] 2{spray Use 2 [facility] propionate 6-16 } Sprays in ity of (FLONASE 00:00: each [place] ALLERGY 00 nostril Medical RELIEF) 50 daily. Branch mcg/actuati on nasal spray LORazepam 1 2019-0 Yes [id number] 1mg Take 1 [facility] mg tablet 6-16 tablet by ity o f 00:00: mouth once [place] 00 daily as Medical needed for Branch Anxiety or Agitation. fluticasone 2020-0 Yes [id number] 2{spray Use 2 [facility] propionate 6-16 } Sprays in ity of (FLONASE 00:00: each [place] ALLERGY 00 nostril Medical RELIEF) 50 daily. Branch mcg/actuati on nasal spray LORazepam 1 2019-0 Yes [id number] 1mg Take 1 [facility] mg tablet 6-16 tablet by ity o f 00:00: mouth once [place] 00 daily as Medical needed for Branch Anxiety or Agitation. fluticasone 2020-0 Yes [id number] 2{spray Use 2 [facility] propionate 6-16 } Sprays in ity of (FLONASE 00:00: each [place] ALLERGY 00 nostril Medical RELIEF) 50 daily. Branch mcg/actuati on nasal spray fluticasone 2020-0 Yes [id number] 2{spray Use 2 [facility] propionate 6-16 } Sprays in ity of (FLONASE 00:00: each [place] ALLERGY 00 nostril Medical RELIEF) 50 daily. Branch mcg/actuati on nasal spray fluticasone 2020-0 Yes [id number] 2{spray Use 2 [facility] propionate 6-16 } Sprays in ity of (FLONASE 00:00: each [place] ALLERGY 00 nostril Medical RELIEF) 50 daily. Branch mcg/actuati on nasal spray fluticasone 2020-0 Yes [id number] 2{spray Use 2 [facility] propionate 6-16 } Sprays in ity of (FLONASE 00:00: each [place] ALLERGY 00 nostril Medical RELIEF) 50 daily. Branch mcg/actuati on nasal spray fluticasone 2020-0 Yes [id number] 2{spray Use 2 [facility] propionate 6-16 } Sprays in ity of (FLONASE 00:00: each [place] ALLERGY 00 nostril Medical RELIEF) 50 daily. Branch mcg/actuati on nasal spray fluticasone 2020-0 Yes [id number] 2{spray Use 2 [facility] propionate 6-16 } Sprays in ity of (FLONASE 00:00: each [place] ALLERGY 00 nostril Medical RELIEF) 50 daily. Branch mcg/actuati on nasal spray fluticasone 2020-0 Yes [id number] 2{spray Use 2 [facility] propionate 6-16 } Sprays in ity of (FLONASE 00:00: each [place] ALLERGY 00 nostril Medical RELIEF) 50 daily. Branch mcg/actuati on nasal spray fluticasone 2020-0 Yes [id number] 2{spray Use 2 [facility] propionate 6-16 } Sprays in ity of (FLONASE 00:00: each [place] ALLERGY 00 nostril Medical RELIEF) 50 daily. Branch mcg/actuati on nasal spray fluticasone 2020-0 Yes [id number] 2{spray Use 2 [facility] propionate 6-16 } Sprays in ity of (FLONASE 00:00: each [place] ALLERGY 00 nostril Medical RELIEF) 50 daily. Branch mcg/actuati on nasal spray fluticasone 2020-0 2020- No [id number] 2{spray Use 2 [facility] propionate 6-16 10-15 } Sprays in ity of (FLONASE 00:00: 00:00 each [place] ALLERGY 00 :00 nostril Medical RELIEF) 50 daily. Branch mcg/actuati on nasal spray LORazepam 1 2019-0 2020- No [id number] 1mg Take 1 [facility] mg tablet 6-16 08-18 tablet by ity of 00:00: 00:00 mouth once [place] 00 :00 daily as Medical needed for Branch Anxiety or Agitation. LORazepam 1 2019- 2020- No [id number] 1mg Take 1 [facility] mg tablet 6-16 [...] Medical times Branch daily. FLUoxetine 2020-0 Yes [id number] 60mg Take 3 [facility] 20 mg 6-11 capsules ity of capsule 00:00: by mouth [place] 00 daily. Medical Branch FLUoxetine 2020-0 Yes [id number] 60mg Take 3 [facility] 20 mg 6-11 capsules ity of capsule 00:00: by mouth [place] 00 daily. Medical Branch FLUoxetine 2020-0 Yes [id number] 60mg Take 3 [facility] 20 mg 6-11 capsules ity of capsule 00:00: by mouth [place] 00 daily. Medical Branch FLUoxetine 2020-0 Yes [id number] 60mg Take 3 [facility] n[facility] 20 mg 6-11 capsules ity of capsule 00:00: by mouth [place] 00 daily. Medical Branch FLUoxetine 2020-0 Yes [id number] 60mg Take 3 [facility] 20 mg 6-11 capsules ity of capsule 00:00: by mouth [place] 00 daily. Medical Branch FLUoxetine 2020-0 2020- No [id number] 60mg Take 3 [facility] 20 mg 6-11 08-18 capsules ity of capsule 00:00: 00:00 by mouth [place] 00 :00 daily. Medical Branch FLUoxetine 2020-0 2020- No [id number] 60mg Take 3 [facility] 20 mg 6-11 08-18 capsules ity of capsule 00:00: 00:00 by mouth [place] 00 :00 daily. Medical Branch pantoprazol 2019-0 Yes [id number] 40mg Take 1 [facility] e 40 mg EC 5-21 tablet by ity of tablet 00:00: mouth once [place] 00 daily as Medical needed for Branch Indigestio n. pantoprazol 2020-0 Yes [id number] 40mg Take 1 [facility] e 40 mg EC 5-21 tablet by ity of tablet 00:00: mouth once [place] 00 daily as Medical needed for Branch Indigestio n. pantoprazol 2019-0 Yes [id number] 40mg Take 1 [facility] e 40 mg EC 5-21 tablet by ity of tablet 00:00: mouth once [place] 00 daily as Medical needed for Branch Indigestio n. pantoprazol 2019-0 2020- No [id number] 40mg Take 1 [facility] e 40 mg EC 5-21 06-23 tablet by ity of tablet 00:00: 00:00 mouth once [place] 00 :00 daily as Medical needed for Branch Indigestio n. cariprazine 0 2020- No 10mg Take 10 mg [facility] HCl 5-19 05-19 by mouth ity of (VRAYLAR 16:24: 00:00 at [place] ORAL) 07 :00 bedtime. Medical Branch phenytoin 2020-0 Yes [id number] 400mg Take 4 [facility] Extended 5-19 capsules ity of (DILANTIN) 00:00: by mouth [place] 100 mg 00 daily. Medical capsule Branch levothyroxi 2019-0 Yes [id number] 150ug Take 1 [facility] ne 150 mcg 5-19 tablet by ity of tablet 00:00: mouth [place] 00 every Medical morning. Branch cholestyram 2019-0 Yes [id number] 2g Take 0.5 [facility] ine 4 gram 5-19 Packets by ity of powder 00:00: mouth 3 (three) Medical times Branch daily with meals. phenytoin 2019-0 Yes [id number] 400mg Take 4 [facility] Extended 5-19 capsules ity of (DILANTIN) 00:00: by mouth [place] 100 mg 00 daily. Medical capsule Branch levothyroxi 2019-0 Yes [id number] 150ug Take 1 [facility] ne 150 mcg 5-19 tablet by ity of tablet 00:00: mouth [place] 00 every Medical morning. Branch cholestyram 2019-0 Yes [id number] 2g Take 0.5 [facility] ine 4 gram 5-19 Packets by ity of powder 00:00: mouth 3 (three) Medical times Branch daily with meals. phenytoin 2020-0 Yes [id number] 400mg Take 4 [facility] n[facility] Extended 5-19 capsules ity of (DILANTIN) 00:00: by mouth [place] 100 mg 00 daily. Medical capsule Branch levothyroxi 2019-0 Yes [id number] 150ug Take 1 [facility] ne 150 mcg 5-19 tablet by ity of tablet 00:00: mouth [place] 00 every Medical morning. Branch cholestyram 2019-0 Yes [id number] 2g Take 0.5 [facility] ine 4 gram 5-19 Packets by ity of powder 00:00: mouth 3 (three) Medical times Branch daily with meals. phenytoin 2020-0 Yes [id number] 400mg Take 4 [facility] n[facility] Extended 5-19 capsules ity of (DILANTIN) 00:00: by mouth [place] 100 mg 00 daily. Medical capsule Branch levothyroxi 2020-0 Yes [id number] 150ug Take 1 [facility] ne 150 mcg 5-19 tablet by ity of tablet 00:00: mouth every Medical morning. Branch cholestyram 2020-0 Yes [id number] 2g Take 0.5 [facility] ine 4 gram 5-19 Packets by ity of powder 00:00: mouth (three) Medical times Branch daily with meals. phenytoin 2020-0 Yes [id number] 400mg Take 4 [facility] n[facility] Extended 5-19 capsules ity of (DILANTIN) 00:00: by mouth [place] 100 mg 00 daily. Medical capsule Branch levothyroxi 2019-0 Yes [id number] 150ug Take 1 [facility] ne 150 mcg 5-19 tablet by ity of tablet 00:00: mouth every Medical morning. Branch cholestyram 2020-0 Yes [id number] 2g Take 0.5 [facility] ine 4 gram 5-19 Packets by ity of powder 00:00: mouth (three) Medical times Branch daily with meals. phenytoin 2020-0 Yes [id number] 400mg Take 4 [facility] n[facility] Extended 5-19 capsules ity of (DILANTIN) 00:00: by mouth [place] 100 mg 00 daily. Medical capsule Branch levothyroxi 2020-0 Yes [id number] 150ug Take 1 [facility] ne 150 mcg 5-19 tablet by ity of tablet 00:00: mouth every Medical morning. Branch cholestyram 2020-0 Yes [id number] 2g Take 0.5 [facility] ine 4 gram 5-19 Packets by ity of powder 00:00: mouth (three) Medical times Branch daily with meals. phenytoin 2020-0 Yes [id number] 400mg Take 4 [facility] nivers Extended 5-19 capsules ity of (DILANTIN) 00:00: by mouth [place] 100 mg 00 daily. Medical capsule Branch levothyroxi 2020-0 Yes [id number] 150ug Take 1 [facility] ne 150 mcg 5-19 tablet by ity of tablet 00:00: mouth [place] 00 every Medical morning. Branch cholestyram 2020-0 Yes [id number] 2g Take 0.5 [facility] ine 4 gram 5-19 Packets by ity of powder 00:00: mouth 3 (three) Medical times Branch daily with meals. phenytoin 2020-0 Yes [id number] 400mg Take 4 [facility] nivers Extended 5-19 capsules ity of (DILANTIN) 00:00: by mouth [place] 100 mg 00 daily. Medical capsule Branch levothyroxi 2020-0 Yes [id number] 150ug Take 1 [facility] ne 150 mcg 5-19 tablet by ity of tablet 00:00: mouth [place] 00 every Medical morning. Branch cholestyram 2020-0 Yes [id number] 2g Take 0.5 [facility] ine 4 gram 5-19 Packets by ity of powder 00:00: mouth 3 (three) Medical times Branch daily with meals. phenytoin 2020-0 Yes [id number] 400mg Take 4 [facility] nivers Extended 5-19 capsules ity of (DILANTIN) 00:00: by mouth [place] 100 mg 00 daily. Medical capsule Branch levothyroxi 2020-0 Yes [id number] 150ug Take 1 [facility] ne 150 mcg 5-19 tablet by ity of tablet 00:00: mouth [place] 00 every Medical morning. Branch cholestyram 2020-0 Yes [id number] 2g Take 0.5 [facility] ine 4 gram 5-19 Packets by ity of powder 00:00: mouth 3 (three) Medical times Branch daily with meals. nystatin 2020-0 Yes [id number] Apply to [facility] 100,000 5-19 area(s) 2 ity of unit/gram 00:00: (two) [place] powder 00 times Medical daily. Branch phenytoin 2020-0 Yes [id number] 400mg Take 4 [facility] nivers Extended 5-19 capsules ity of (DILANTIN) 00:00: by mouth [place] 100 mg 00 daily. Medical capsule Branch FLUoxetine 2020-0 Yes 60mg Take 3 [facility] 20 mg 5-19 capsules ity of capsule 00:00: by mouth [place] 00 daily. Medical Branch levothyroxi 2020-0 Yes [id number] 150ug Take 1 [facility] ne 150 mcg 5-19 tablet by ity of tablet 00:00: mouth [place] 00 every Medical morning. Branch cholestyram 2020-0 Yes [id number] 2g Take 0.5 [facility] ine 4 gram 5-19 Packets by ity of powder 00:00: mouth 3 (three) Medical times Branch daily with meals. LORazepam 1 2020-0 Yes [id number] 1mg Take 1 [facility] mg tablet 5-19 tablet by ity o f 00:00: mouth once [place] 00 daily as Medical needed for Branch Anxiety or Agitation. nystatin 2020-0 Yes [id number] Apply to [facility] 100,000 5-19 area(s) 2 ity of unit/gram 00:00: (two) [place] powder 00 times Medical daily. Branch phenytoin 2020-0 Yes [id number] 400mg Take 4 [facility] nivers Extended 5-19 capsules ity of (DILANTIN) 00:00: by mouth [place] 100 mg 00 daily. Medical capsule Branch levothyroxi 2020-0 Yes [id number] 150ug Take 1 [facility] ne 150 mcg 5-19 tablet by ity of tablet 00:00: mouth [place] 00 every Medical morning. Branch cholestyram 2020-0 Yes [id number] 2g Take 0.5 [facility] ine 4 gram 5-19 Packets by ity of powder 00:00: mouth 3 (three) Medical times Branch daily with meals. LORazepam 1 2020-0 Yes [id number] 1mg Take 1 [facility] mg tablet 5-19 tablet by ity o f 00:00: mouth once [place] 00 daily as Medical needed for Branch Anxiety or Agitation. nystatin 2020-0 Yes [id number] Apply to [facility] 100,000 5-19 area(s) 2 ity of unit/gram 00:00: (two) [place] powder 00 times Medical daily. Branch phenytoin 2020-0 Yes [id number] 400mg Take 4 [facility] nivers Extended 5-19 capsules ity of (DILANTIN) 00:00: by mouth [place] 100 mg 00 daily. Medical capsule Branch levothyroxi 2020-0 Yes [id number] 150ug Take 1 [facility] ne 150 mcg 5-19 tablet by ity of tablet 00:00: mouth [place] 00 every Medical morning. Branch cholestyram 2020-0 Yes [id number] 2g Take 0.5 [facility] ine 4 gram 5-19 Packets by ity of powder 00:00: mouth 3 00 (three) Medical times Branch daily with meals. nystatin 2020-0 Yes [id number] Apply to [facility] 100,000 5-19 area(s) 2 ity of unit/gram 00:00: (two) [place] powder 00 times Medical daily. Branch phenytoin 2020-0 Yes [id number] 400mg Take 4 U nivers Extended 5-19 capsules ity of (DILANTIN) 00:00: by mouth [place] 100 mg 00 daily. Medical capsule Branch levothyroxi 2020-0 Yes [id number] 150ug Take 1 [facility] ne 150 mcg 5-19 tablet by ity of tablet 00:00: mouth [place] 00 every Medical morning. Branch cholestyram 2020-0 Yes [id number] 2g Take 0.5 [facility] ine 4 gram 5-19 Packets by ity of powder 00:00: mouth 3 00 (three) Medical times [place] daily with meals. nystatin 2020-0 Yes [id number] Apply to [facility] 100,000 5-19 area(s) 2 ity of unit/gram 00:00: (two) [place] powder 00 times Medical daily. Branch phenytoin 2020-0 Yes [id number] 400mg Take 4 [facility] nivers Extended 5-19 capsules ity of (DILANTIN) 00:00: by mouth [place] 100 mg 00 daily. Medical capsule Branch levothyroxi 2020-0 Yes [id number] 150ug Take 1 [facility] ne 150 mcg 5-19 tablet by ity of tablet 00:00: mouth [place] 00 every Medical morning. Branch cholestyram 2020-0 Yes [id number] 2g Take 0.5 [facility] ine 4 gram 5-19 Packets by ity of powder 00:00: mouth 3 00 (three) Medical [facility] daily with meals. nystatin 2020-0 Yes [id number] Apply to [facility] 100,000 5-19 area(s) 2 ity of unit/gram 00:00: (two) [place] powder 00 times Medical daily. Branch phenytoin 2020-0 Yes [id number] 400mg Take 4 [facility] nivers Extended 5-19 capsules ity of (DILANTIN) 00:00: by mouth [place] 100 mg 00 daily. Medical capsule Branch levothyroxi 2020-0 Yes [id number] 150ug Take 1 [facility] ne 150 mcg 5-19 tablet by ity of tablet 00:00: mouth [place] 00 every Medical morning. Branch cholestyram 2020-0 Yes [id number] 2g Take 0.5 [facility] ine 4 gram 5-19 Packets by ity of powder 00:00: mouth 3 (three) Medical times Branch daily with meals. nystatin 2020-0 Yes [id number] Apply to [facility] n[facility] 100,000 5-19 area(s) 2 ity of unit/gram 00:00: (two) [place] powder 00 times Medical daily. Branch phenytoin 2020-0 Yes [id number] 400mg Take 4 [facility] nivers Extended 5-19 capsules ity of (DILANTIN) 00:00: by mouth [place] 100 mg 00 daily. Medical capsule Branch levothyroxi 2020-0 Yes [id number] 150ug Take 1 [facility] ne 150 mcg 5-19 tablet by ity of tablet 00:00: mouth every Medical morning. Branch cholestyram 2020-0 Yes [id number] 2g Take 0.5 [facility] ine 4 gram 5-19 Packets by ity of powder 00:00: mouth 3 (three) Medical times Branch daily with meals. phenytoin 2020-0 Yes [id number] 400mg Take 4 [facility] nivers Extended 5-19 capsules ity of (DILANTIN) 00:00: by mouth [place] 100 mg 00 daily. Medical capsule Branch levothyroxi 2020-0 Yes [id number] 150ug Take 1 [facility] ne 150 mcg 5-19 tablet by ity of tablet 00:00: mouth every Medical morning. Branch cholestyram 2020-0 Yes [id number] 2g Take 0.5 [facility] ine 4 gram 5-19 Packets by ity of powder 00:00: mouth (three) Medical times Branch daily with meals. phenytoin 2020-0 Yes [id number] 400mg Take 4 [facility] nivers Extended 5-19 capsules ity of (DILANTIN) 00:00: by mouth [place] 100 mg 00 daily. Medical capsule Branch levothyroxi 2020-0 Yes [id number] 150ug Take 1 [facility] ne 150 mcg 5-19 tablet by ity of tablet 00:00: mouth every Medical morning. Branch cholestyram 2020-0 Yes [id number] 2g Take 0.5 [facility] ine 4 gram 5-19 Packets by ity of powder 00:00: mouth 3 (three) Medical times Branch daily with meals. phenytoin 2020-0 Yes [id number] 400mg Take 4 [facility] nivers Extended 5-19 capsules ity of (DILANTIN) 00:00: by mouth [place] 100 mg 00 daily. Medical capsule Branch levothyroxi 2020-0 Yes [id number] 150ug Take 1 [facility] ne 150 mcg 5-19 tablet by ity of tablet 00:00: mouth [place] 00 every Medical morning. Branch cholestyram 2020-0 Yes [id number] 2g Take 0.5 [facility] ine 4 gram 5-19 Packets by ity of powder 00:00: mouth 3 (three) Medical times Branch daily with meals. phenytoin 2020-0 Yes [id number] 400mg Take 4 [facility] nivers Extended 5-19 capsules ity of (DILANTIN) 00:00: by mouth [place] 100 mg 00 daily. Medical capsule Branch levothyroxi 2020-0 Yes [id number] 150ug Take 1 [facility] ne 150 mcg 5-19 tablet by ity of tablet 00:00: mouth 00 every Medical morning. Branch cholestyram 2020-0 Yes [id number] 2g Take 0.5 [facility] ine 4 gram 5-19 Packets by ity of powder 00:00: mouth 3 (three) Medical times Branch daily with meals. phenytoin 2020-0 Yes [id number] 400mg Take 4 U nivers Extended 5-19 capsules ity of (DILANTIN) 00:00: by mouth [place] 100 mg 00 daily. Medical capsule Branch levothyroxi 2020-0 Yes [id number] 150ug Take 1 [facility] ne 150 mcg 5-19 tablet by ity of tablet 00:00: mouth [place] 00 every Medical morning. Branch cholestyram 2020-0 Yes [id number] 2g Take 0.5 [facility] ine 4 gram 5-19 Packets by ity of powder 00:00: mouth 3 (three) Medical times Branch daily with meals. phenytoin 2020-0 Yes [id number] 400mg Take 4 U nivers Extended 5-19 capsules ity of (DILANTIN) 00:00: by mouth [place] 100 mg 00 daily. Medical capsule Branch levothyroxi 2020-0 Yes [id number] 150ug Take 1 [facility] ne 150 mcg 5-19 tablet by ity of tablet 00:00: mouth [place] 00 every Medical morning. Branch cholestyram 2020-0 Yes [id number] 2g Take 0.5 [facility] ine 4 gram 5-19 Packets by ity of powder 00:00: mouth 3 (three) Medical times Branch daily with meals. phenytoin 2020-0 Yes [id number] 400mg Take 4 U nivers Extended 5-19 capsules ity of (DILANTIN) 00:00: by mouth [place] 100 mg 00 daily. Medical capsule Branch levothyroxi 2020-0 Yes [id number] 150ug Take 1 [facility] ne 150 mcg 5-19 tablet by ity of tablet 00:00: mouth 00 every Medical morning. Branch cholestyram 2020-0 Yes [id number] 2g Take 0.5 [facility] ine 4 gram 5-19 Packets by ity of powder 00:00: mouth 3 (three) Medical times Branch daily with meals. phenytoin 2020-0 Yes [id number] 400mg Take 4 U nivers Extended 5-19 capsules ity of (DILANTIN) 00:00: by mouth [place] 100 mg 00 daily. Medical capsule Branch levothyroxi 2020-0 Yes [id number] 150ug Take 1 [facility] ne 150 mcg 5-19 tablet by ity of tablet 00:00: mouth [place] every Medical morning. Branch cholestyram 2020-0 Yes [id number] 2g Take 0.5 [facility] ine 4 gram 5-19 Packets by ity of powder 00:00: mouth (three) Medical times Branch daily with meals. phenytoin 2020-0 Yes [id number] 400mg Take 4 U nivers Extended 5-19 capsules ity of (DILANTIN) 00:00: by mouth [place] 100 mg 00 daily. Medical capsule Branch levothyroxi 2020-0 Yes [id number] 150ug Take 1 [facility] ne 150 mcg 5-19 tablet by ity of tablet 00:00: mouth [place] every Medical morning. Branch cholestyram 2020-0 Yes [id number] 2g Take 0.5 [facility] ine 4 gram 5-19 Packets by ity of powder 00:00: mouth (three) Medical times Branch daily with meals. phenytoin 2020-0 Yes [id number] 400mg Take 4 U nivers Extended 5-19 capsules ity of (DILANTIN) 00:00: by mouth [place] 100 mg 00 daily. Medical capsule Branch levothyroxi 2020-0 Yes [id number] 150ug Take 1 [facility] ne 150 mcg 5-19 tablet by ity of tablet 00:00: mouth [place] every Medical morning. Branch cholestyram 2020-0 Yes [id number] 2g Take 0.5 [facility] ine 4 gram 5-19 Packets by ity of powder 00:00: mouth 3 (three) Medical times Branch daily with meals. phenytoin 2020-0 Yes [id number] 400mg Take 4 U nivers Extended 5-19 capsules ity of (DILANTIN) 00:00: by mouth [place] 100 mg 00 daily. Medical capsule Branch levothyroxi 2020-0 Yes [id number] 150ug Take 1 [facility] ne 150 mcg 5-19 tablet by ity of tablet 00:00: mouth 00 every Medical morning. Branch cholestyram 2019-0 Yes [id number] 2g Take 0.5 [facility] ine 4 gram 5-19 Packets by ity of powder 00:00: mouth (three) Medical times Branch daily with meals. phenytoin 2020-0 Yes [id number] 400mg Take 4 U nivers Extended 5-19 capsules ity of (DILANTIN) 00:00: by mouth [place] 100 mg 00 daily. Medical capsule Branch levothyroxi 2019-0 Yes [id number] 150ug Take 1 [facility] ne 150 mcg 5-19 tablet by ity of tablet 00:00: mouth every Medical morning. Branch cholestyram 2019-0 Yes [id number] 2g Take 0.5 [facility] ine 4 gram 5-19 Packets by ity of powder 00:00: mouth (three) Medical times Branch daily with meals. phenytoin 2020-0 Yes [id number] 400mg Take 4 U nivers Extended 5-19 capsules ity of (DILANTIN) 00:00: by mouth [place] 100 mg 00 daily. Medical capsule Branch levothyroxi 2020-0 Yes [id number] 150ug Take 1 [facility] ne 150 mcg 5-19 tablet by ity of tablet 00:00: mouth 00 every Medical morning. Branch cholestyram 2019-0 Yes [id number] 2g Take 0.5 [facility] ine 4 gram 5-19 Packets by ity of powder 00:00: mouth 3 (three) Medical times Branch daily with meals. phenytoin 2020-0 Yes [id number] 400mg Take 4 U nivers Extended 5-19 capsules ity of (DILANTIN) 00:00: by mouth [place] 100 mg 00 daily. Medical capsule Branch levothyroxi 2020-0 Yes [id number] 150ug Take 1 [facility] ne 150 mcg 5-19 tablet by ity of tablet 00:00: mouth every Medical morning. Branch cholestyram 2020-0 Yes [id number] 2g Take 0.5 [facility] ine 4 gram 5-19 Packets by ity of powder 00:00: mouth 3 (three) Medical times Branch daily with meals. phenytoin 2020-0 Yes [id number] 400mg Take 4 U nivers Extended 5-19 capsules ity of (DILANTIN) 00:00: by mouth [place] 100 mg 00 daily. Medical capsule Branch levothyroxi 2020-0 Yes [id number] 150ug Take 1 [facility] ne 150 mcg 5-19 tablet by ity of tablet 00:00: mouth every Medical morning. Branch cholestyram 2020-0 Yes [id number] 2g Take 0.5 [facility] ine 4 gram 5-19 Packets by ity of powder 00:00: mouth (three) Medical times Branch daily with meals. phenytoin 2020-0 Yes [id number] 400mg Take 4 U nivers Extended 5-19 capsules ity of (DILANTIN) 00:00: by mouth [place] 100 mg 00 daily. Medical capsule Branch levothyroxi 2020-0 Yes [id number] 150ug Take 1 [facility] ne 150 mcg 5-19 tablet by ity of tablet 00:00: mouth every Medical morning. Branch cholestyram 2020-0 Yes [id number] 2g Take 0.5 [facility] ine 4 gram 5-19 Packets by ity of powder 00:00: mouth (three) Medical times Branch daily with meals. phenytoin 2020-0 Yes [id number] 400mg Take 4 U nivers Extended 5-19 capsules ity of (DILANTIN) 00:00: by mouth [place] 100 mg 00 daily. Medical capsule Branch levothyroxi 2020-0 Yes [id number] 150ug Take 1 [facility] ne 150 mcg 5-19 tablet by ity of tablet 00:00: mouth every Medical morning. Branch cholestyram 2020-0 Yes [id number] 2g Take 0.5 [facility] ine 4 gram 5-19 Packets by ity of powder 00:00: mouth 3 (three) Medical times Branch daily with meals. phenytoin 2020-0 Yes [id number] 400mg Take 4 U nivers Extended 5-19 capsules ity of (DILANTIN) 00:00: by mouth [place] 100 mg 00 daily. Medical capsule Branch levothyroxi 2020-0 Yes [id number] 150ug Take 1 [facility] ne 150 mcg 5-19 tablet by ity of tablet 00:00: mouth every Medical morning. Branch cholestyram 2020-0 Yes [id number] 2g Take 0.5 [facility] ine 4 gram 5-19 Packets by ity of powder 00:00: mouth 3 (three) Medical times Branch daily with meals. phenytoin 2020-0 Yes [id number] 400mg Take 4 U nivers Extended 5-19 capsules ity of (DILANTIN) 00:00: by mouth [place] 100 mg 00 daily. Medical capsule Branch levothyroxi 2020-0 Yes [id number] 150ug Take 1 [facility] ne 150 mcg 5-19 tablet by ity of tablet 00:00: mouth every Medical morning. Branch cholestyram 2020-0 Yes [id number] 2g Take 0.5 [facility] ine 4 gram 5-19 Packets by ity of powder 00:00: mouth (three) Medical times Branch daily with meals. phenytoin 2020-0 Yes [id number] 400mg Take 4 U nivers Extended 5-19 capsules ity of (DILANTIN) 00:00: by mouth [place] 100 mg 00 daily. Medical capsule Branch levothyroxi 2020-0 Yes [id number] 150ug Take 1 [facility] ne 150 mcg 5-19 tablet by ity of tablet 00:00: mouth every Medical morning. Branch cholestyram 2020-0 Yes [id number] 2g Take 0.5 [facility] ine 4 gram 5-19 Packets by ity of powder 00:00: mouth (three) Medical times Branch daily with meals. phenytoin 2020-0 Yes [id number] 400mg Take 4 U nivers Extended 5-19 capsules ity of (DILANTIN) 00:00: by mouth [place] 100 mg 00 daily. Medical capsule Branch levothyroxi 2020-0 Yes [id number] 150ug Take 1 [facility] ne 150 mcg 5-19 tablet by ity of tablet 00:00: mouth every Medical morning. Branch cholestyram 2020-0 Yes [id number] 2g Take 0.5 [facility] ine 4 gram 5-19 Packets by ity of powder 00:00: mouth (three) Medical times Branch daily with meals. nystatin 2019-2019- No [id number] Apply to [facility] 100,000 5-19 08-18 area(s) 2 ity of unit/gram 00:00: 00:00 (two) [place] powder 00 :00 times Medical daily. Branch nystatin 2019- No [id number] Apply to [facility] 100,000 5-19 08-18 area(s) 2 ity of unit/gram 00:00: 00:00 (two) [place] powder 00 :00 times Medical daily. Branch LORazepam 1 2019- No [id number] 1mg Take 1 [facility] mg tablet 09-01-16 tablet by ity of 00:00: 00:00 mouth once [place] 00 :00 daily as Medical needed for Branch Anxiety or Agitation. LORazepam 1 2019- No [id number] 1mg Take 1 [facility] mg tablet 09-01-16 [...] :00 daily. Medical Branch pantoprazol 2019- No [id number] 40mg Take 1 [facility] e 40 mg EC 5- 05-21 tablet by [facility] tablet 00:00: 00:[place] mouth [place] 00 :[place] daily as Medical needed for Branch Indigestio n. pantoprazol 2019-2019- No [id number] 40mg Take 1 [facility] e 40 mg EC 5- 05-21 tablet by it[facility] tablet 00:00: 00:00 mouth [place] 00 :00 daily as Medical needed for Branch Indigestio n. LORazepam 1 2019- No [id number] 1mg Take 1 [facility] mg tablet 5- 05-19 tablet by ity of 00:00: 00:00 mouth [place] 00 :00 every Medical other day. Branch PANTOPRAZOL 2019- Yes [id number] TAKE 1 [facility] E 40 mg EC 5-12 TABLET BY ity of tablet 00:00: MOUTH [place] 00 TWICE A Medical DAY Branch PANTOPRAZOL 2019-0 Yes [id number] TAKE 1 [facility] E 40 mg EC 5-12 TABLET BY ity of tablet 00:00: MOUTH [place] 00 TWICE A Medical DAY Branch PANTOPRAZOL 2020-0 2020- No [id number] TAKE 1 [facility] E 40 mg EC 5-12 05-19 TABLET BY ity of tablet 00:00: 00:00 MOUTH [place] 00 :00 TWICE A Medical DAY Branch levothyroxi 2020-0 Yes [id number] 150ug Take 1 [facility] ne 150 mcg 4-27 tablet by ity of tablet 00:00: mouth [place] 00 every Medical morning. Branch levothyroxi 2019-0 Yes [id number] 150ug Take 1 [facility] ne 150 mcg 4-27 tablet by ity of tablet 00:00: mouth [place] 00 every Medical morning. Branch levothyroxi 2019-0 2020- No [id number] 150ug Take 1 [facility] ne 150 mcg 4-27 05-19 tablet by ity of tablet 00:00: 00:00 mouth [place] 00 :00 every Medical morning. Branch acetaminoph 2020-0 Yes [id number] .5{tbl} Take 0.5-1 [facility] en-codeine 4-24 [id number] tablets by it y of (TYLENOL-CO 00:00: mouth [place] DEINE #3) 00 every 4 Medical 300-30 mg (four) Branch tablet hours as needed (pain). Pt medicaid is under her maiden name Cyndie Doan acetaminoph 2020-0 Yes [id number] .5{tbl} Take 0.5-1 [facility] en-codeine 4-24 [id number] tablets by it y of (TYLENOL-CO 00:00: mouth [place] DEINE #3) 00 every 4 Medical 300-30 mg (four) Branch tablet hours as needed (pain). Pt medicaid is under her maiden name Cyndie Doan acetaminoph 2020-0 Yes [id number] .5{tbl} Take 0.5-1 [facility] en-codeine 4-24 [id number] tablets by it y of (TYLENOL-CO 00:00: mouth [place] DEINE #3) 00 every 4 Medical 300-30 mg (four) Branch tablet hours as needed (pain). Pt medicaid is under her maiden name Cyndie Doan acetaminoph 2020-0 Yes [id number] .5{tbl} Take 0.5-1 [facility] en-codeine 4-24 11047 tablets by it y of (TYLENOL-CO 00:00: mouth [place] DEINE #3) 00 every 4 Medical 300-30 mg (four) Branch tablet hours as needed (pain). Pt medicaid is under her maiden name Cyndie Doan acetaminoph 2020-0 Yes [id number] .5{tbl} Take 0.5-1 [facility] en-codeine 4-24 02135 tablets by it y of (TYLENOL-CO 00:00: mouth [place] DEINE #3) 00 every 4 Medical 300-30 mg (four) Branch tablet hours as needed (pain). Pt medicaid is under her maiden name Cyndie Doan acetaminoph 2020-0 Yes [id number] .5{tbl} Take 0.5-1 [facility] en-codeine 4-24 [id number] tablets by it y of (TYLENOL-CO 00:00: mouth [place] DEINE #3) 00 every 4 Medical 300-30 mg (four) Branch tablet hours as needed (pain). Pt medicaid is under her maiden name Cyndie Doan acetaminoph 2019-0 Yes [id number] .5{tbl} Take 0.5-1 [facility] en-codeine 4-24 [id number] tablets by it y of (TYLENOL-CO 00:00: mouth [place] DEINE #3) 00 every 4 Medical 300-30 mg (four) Branch tablet hours as needed (pain). Pt medicaid is under her maiden name Cyndie Doan acetaminoph 2019-0 Yes [id number] .5{tbl} Take 0.5-1 [facility] en-codeine 4-24 [id number] tablets by it y of (TYLENOL-CO 00:00: mouth [place] DEINE #3) 00 every 4 Medical 300-30 mg (four) Branch tablet hours as needed (pain). Pt medicaid is under her maiden name Cyndie Doan acetaminoph 2020-0 Yes [id number] .5{tbl} Take 0.5-1 [facility] en-codeine 4-24 [id number] tablets by it y of (TYLENOL-CO 00:00: mouth [place] DEINE #3) 00 every 4 Medical 300-30 mg (four) Branch tablet hours as needed (pain). Pt medicaid is under her maiden name Cyndie Doan acetaminoph 2020-0 2020- No [id number] .5{tbl} Take 0.5-1 [facility] en-codeine 08-07 01737 tablets by i ty of (TYLENOL-CO 00:00: 00:00 mouth [place] DEINE #3[place] 00 :00 every 4 Medical 300-30 mg (four) Branch tablet hours as needed (pain). Pt medicaid is under her maiden name Cyndie Doan acetaminoph 2020-0 2020- No [id number] .5{tbl} Take 0.5-1 [facility] en-codeine 08-07 [id number] tablets by i ty of (TYLENOL-CO 00:00: 00:00 mouth [place] DEINE #3) 00 :00 every 4 Medical 300-30 mg (four) Branch tablet hours as needed (pain). Pt medicaid is under her maiden name Cyndie Doan clotrimazol 2020-0 Yes [id number] Apply to [facility] e 1 % 4-21 area(s) 2 ity of topical 00:00: (two) [place] cream 00 times Medical daily. Branch clotrimazol 2020-0 Yes [id number] Apply to [facility] e 1 % 4-21 area(s) 2 ity of topical 00:00: (two) [place] cream 00 times Medical daily. Branch clotrimazol 2020-0 Yes [id number] Apply to [facility] e 1 % 4-21 area(s) 2 ity of topical 00:00: (two) [place] cream 00 times Medical daily. Branch clotrimazol 2020-0 Yes [id number] Apply to [facility] e 1 % 4-21 area(s) 2 ity of topical 00:00: (two) [place] cream 00 times Medical daily. Branch clotrimazol 2020-0 Yes [id number] Apply to [facility] e 1 % 4-21 area(s) 2 ity of topical 00:00: (two) [place] cream 00 times Medical daily. Branch clotrimazol 2020-0 Yes [id number] Apply to [facility] e 1 % 4-21 area(s) 2 ity of topical 00:00: (two) [place] cream 00 times Medical daily. Branch clotrimazol 2020-0 Yes [id number] Apply to [facility] e 1 % 4-21 area(s) 2 ity of topical 00:00: (two) [place] cream 00 times Medical daily. Branch clotrimazol 2020-0 2020- No [id number] Apply to [facility] e 1 % 4-21 05-19 area(s) 2 ity of topical 00:00: 00:00 (two) [place] cream 00 :00 times Medical daily. Branch ketoconazol 2020-0 Yes [id number] Apply to [facility] e 2 % cream 4-17 area(s) 2 ity of 00:00: (two) [place] 00 times Medical daily. Branch ketoconazol 2020-0 Yes [id number] Apply to [facility] e 2 % cream 4-17 area(s) 2 ity of 00:00: (two) [place] 00 times Medical daily. Branch ketoconazol 2020-0 2020- No [id number] Apply to [facility] e 2 % cream 4-17 04-21 area(s) 2 it y of 00:00: 00:00 (two) [place] 00 :00 times Medical daily. Branch ketoconazol 2020-0 2020- No [id number] Apply to [facility] e 2 % cream 4-17 04-21 area(s) 2 it y of 00:00: 00:00 (two) [place] 00 :00 times Medical daily. Branch LORazepam 1 2019-0 Yes [id number] 1mg Take 1 [facility] mg tablet 4-07 tablet by ity o f 00:00: mouth 2 (two) Medical times per Branch week for Anxiety or Agitation. LORazepam 1 2020-0 Yes [id number] 1mg Take 1 [facility] mg tablet 4-07 tablet by ity o f 00:00: mouth 2 (two) Medical times per Branch week for Anxiety or Agitation. LORazepam 1 2020-0 Yes [id number] 1mg Take 1 [facility] mg tablet 4-07 tablet by ity o f 00:00: mouth 2 (two) Medical times per Branch week for Anxiety or Agitation. LORazepam 1 2020-0 Yes [id number] 1mg Take 1 [facility] mg tablet 4-07 tablet by ity o f 00:00: mouth 2 (two) Medical times per Branch week for Anxiety or Agitation. LORazepam 1 2020-0 Yes [id number] 1mg Take 1 [facility] mg tablet 4-07 tablet by ity o f 00:00: mouth 2 (two) Medical times per Branch week for Anxiety or Agitation. LORazepam 1 2020-0 Yes [id number] 1mg Take 1 [facility] mg tablet 4-07 tablet by ity o f 00:00: mouth 2 (two) Medical times per Branch week for Anxiety or Agitation. LORazepam 1 2020-0 Yes [id number] 1mg Take 1 [facility] mg tablet 4-07 tablet by ity o f 00:00: mouth 2 (two) Medical times per Branch week for Anxiety or Agitation. LORazepam 1 2020-0 Yes [id number] 1mg Take 1 [facility] mg tablet 4-07 tablet by ity o f 00:00: mouth 2 (two) Medical times per Branch week for Anxiety or Agitation. LORazepam 1 2020-0 Yes [id number] 1mg Take 1 [facility] mg tablet 4-07 tablet by ity o f 00:00: mouth 2 (two) Medical times per Branch week for Anxiety or Agitation. LORazepam 1 2020-0 Yes [id number] 1mg Take 1 [facility] mg tablet 4-07 tablet by ity o f 00:00: mouth 2 (two) Medical times per Branch week for Anxiety or Agitation. LORazepam 1 2020-0 Yes [id number] 1mg Take 1 [facility] mg tablet 4-07 tablet by ity o f 00:00: mouth 2 (two) Medical times per Branch week for Anxiety or Agitation. LORazepam 1 2020-0 Yes [id number] 1mg Take 1 [facility] mg tablet 4-07 tablet by ity o f 00:00: mouth 2 (two) Medical times per Branch week for Anxiety or Agitation. LORazepam 1 2019-0 2020- No [id number] 1mg Take 1 [facility] mg tablet 4-07 [...] times Medical daily. Branch phenytoin 2020-0 Yes [id number] 400mg Take 4 [facility] Extended 3-24 capsules ity of (DILANTIN) 00:00: by mouth [place] 100 mg 00 daily. Medical capsule Branch FLUoxetine 2019-0 Yes 40mg Take 1 [facility] rs (PROZAC) 40 3-24 capsule by it y of mg capsule 00:00: mouth [place] 00 daily. Medical Branch cholestyram 2020-0 Yes [id number] 2g Take 0.5 [facility] ine 4 gram 3-24 Packets by ity of powder 00:00: mouth 3 [place] 00 (three) Medical times Branch daily with meals. clonazePAM 2020-0 Yes [id number] 1mg Take 1 [facility] 1 mg tablet 3-24 tablet by ity of 00:00: mouth once [place] 00 daily as Medical needed Branch (panic attack). pantoprazol 2020-0 Yes [id number] 40mg Take 1 [facility] e 40 mg EC 3-24 tablet by ity of tablet 00:00: mouth 2 [place] 00 (two) Medical times Branch daily. famotidine 2020-0 Yes [id number] 20mg Take 1 [facility] (PEPCID AC) 3-24 tablet by ity of 20 mg 00:00: mouth 2 [place] tablet 00 (two) Medical times Branch daily. phenytoin 2020-0 Yes [id number] 400mg Take 4 [facility] nivers Extended 3-24 capsules ity of (DILANTIN) 00:00: by mouth [place] 100 mg 00 daily. Medical capsule Branch FLUoxetine 2020-0 Yes 40mg Take 1 [facility] rs (PROZAC) 40 3-24 capsule by it y of mg capsule 00:00: mouth [place] 00 daily. Medical Branch cholestyram 2020-0 Yes [id number] 2g Take 0.5 [facility] ine 4 gram 3-24 Packets by ity of powder 00:00: mouth 3 (three) Medical times Branch daily with meals. clonazePAM 2020-0 Yes [id number] 1mg Take 1 [facility] 1 mg tablet 3-24 tablet by ity of 00:00: mouth once 00 daily as Medical needed Branch (panic attack). pantoprazol 2020-0 Yes [id number] 40mg Take 1 [facility] e 40 mg EC 3-24 tablet by ity of tablet 00:00: mouth 2 [place] 00 (two) Medical times Branch daily. famotidine 2020-0 Yes [id number] 20mg Take 1 [facility] (PEPCID AC) 3-24 tablet by ity of 20 mg 00:00: mouth 2 [place] tablet 00 (two) Medical times Branch daily. phenytoin 2020-0 Yes [id number] 400mg Take 4 [facility] nivers Extended 3-24 capsules ity of (DILANTIN) 00:00: by mouth [place] 100 mg 00 daily. Medical capsule Branch FLUoxetine 2020-0 Yes 40mg Take 1 [facility] rs (PROZAC) 40 3-24 capsule by it y of mg capsule 00:00: mouth [place] 00 daily. Medical Branch cholestyram 2020-0 Yes [id number] 2g Take 0.5 [facility] ine 4 gram 3-24 Packets by ity of powder 00:00: mouth 3 00 (three) Medical times Branch daily with meals. clonazePAM 2020-0 Yes [id number] 1mg Take 1 [facility] 1 mg tablet 3-24 tablet by ity of 00:00: mouth once 00 daily as Medical needed Branch (panic attack). pantoprazol 2020-0 Yes [id number] 40mg Take 1 [facility] e 40 mg EC 3-24 tablet by ity of tablet 00:00: mouth 2 [place] 00 (two) Medical times Branch daily. famotidine 2020-0 Yes [id number] 20mg Take 1 [facility] (PEPCID AC) 3-24 tablet by ity of 20 mg 00:00: mouth 2 [place] tablet 00 (two) Medical times Branch daily. phenytoin 2020-0 Yes [id number] 400mg Take 4 [facility] nivers Extended 3-24 capsules ity of (DILANTIN) 00:00: by mouth [place] 100 mg 00 daily. Medical capsule Branch FLUoxetine 2020-0 Yes 40mg Take 1 [facility] rs (PROZAC) 40 3-24 capsule by it y of mg capsule 00:00: mouth 00 daily. Medical Branch cholestyram 2020-0 Yes [id number] 2g Take 0.5 [facility] ine 4 gram 3-24 Packets by ity of powder 00:00: mouth 3 00 (three) Medical times Branch daily with meals. clonazePAM 2020-0 Yes [id number] 1mg Take 1 [facility] 1 mg tablet 3-24 tablet by ity of 00:00: mouth once 00 daily as Medical needed Branch (panic attack). pantoprazol 2020-0 Yes [id number] 40mg Take 1 [facility] e 40 mg EC 3-24 tablet by ity of tablet 00:00: mouth 2 [place] 00 (two) Medical times Branch daily. famotidine 2020-0 Yes [id number] 20mg Take 1 [facility] (PEPCID AC) 3-24 tablet by ity of 20 mg 00:00: mouth 2 [place] tablet 00 (two) Medical times Branch daily. phenytoin 2020-0 Yes [id number] 400mg Take 4 [facility] nivers Extended 3-24 capsules ity of (DILANTIN) 00:00: by mouth [place] 100 mg 00 daily. Medical capsule Branch FLUoxetine 2020-0 Yes 40mg Take 1 [facility] rs (PROZAC) 40 3-24 capsule by it y of mg capsule 00:00: mouth [place] 00 daily. Medical Branch cholestyram 2020-0 Yes [id number] 2g Take 0.5 [facility] ine 4 gram 3-24 Packets by ity of powder 00:00: mouth 3 [place] 00 (three) Medical times Branch daily with meals. clonazePAM 2020-0 Yes [id number] 1mg Take 1 [facility] 1 mg tablet 3-24 tablet by ity of 00:00: mouth once [place] 00 daily as Medical needed Branch (panic attack). pantoprazol 2020-0 Yes [id number] 40mg Take 1 [facility] e 40 mg EC 3-24 tablet by ity of tablet 00:00: mouth 2 [place] 00 (two) Medical times Branch daily. famotidine 2020-0 Yes [id number] 20mg Take 1 [facility] (PEPCID AC) 3-24 tablet by ity of 20 mg 00:00: mouth 2 [place] tablet 00 (two) Medical times Branch daily. phenytoin 2020-0 Yes [id number] 400mg Take 4 [facility] nivers Extended 3-24 capsules ity of (DILANTIN) 00:00: by mouth [place] 100 mg 00 daily. Medical capsule Branch FLUoxetine 2020-0 Yes 40mg Take 1 [facility] rs (PROZAC) 40 3-24 capsule by it y of mg capsule 00:00: mouth [place] 00 daily. Medical Branch cholestyram 2020-0 Yes [id number] 2g Take 0.5 [facility] ine 4 gram 3-24 Packets by ity of powder 00:00: mouth 3 [place] 00 (three) Medical times Branch daily with meals. clonazePAM 2020-0 Yes [id number] 1mg Take 1 [facility] 1 mg tablet 3-24 tablet by ity of 00:00: mouth once [place] 00 daily as Medical needed Branch (panic attack). pantoprazol 2020-0 Yes [id number] 40mg Take 1 [facility] e 40 mg EC 3-24 tablet by ity of tablet 00:00: mouth 2 [place] 00 (two) Medical times Branch daily. famotidine 2020-0 Yes [id number] 20mg Take 1 [facility] (PEPCID AC) 3-24 tablet by ity of 20 mg 00:00: mouth 2 [place] tablet 00 (two) Medical times Branch daily. phenytoin 2020-0 Yes [id number] 400mg Take 4 [facility] nivers Extended 3-24 capsules ity of (DILANTIN) 00:00: by mouth [place] 100 mg 00 daily. Medical capsule Branch FLUoxetine 2020-0 Yes 40mg Take 1 [facility] rs (PROZAC) 40 3-24 capsule by it y of mg capsule 00:00: mouth [place] 00 daily. Medical Branch cholestyram 2020-0 Yes [id number] 2g Take 0.5 [facility] ine 4 gram 3-24 Packets by ity of powder 00:00: mouth 3 [place] 00 (three) Medical times Branch daily with meals. clonazePAM 2020-0 Yes [id number] 1mg Take 1 [facility] 1 mg tablet 3-24 tablet by ity of 00:00: mouth once [place] 00 daily as Medical needed Branch (panic attack). pantoprazol 2020-0 Yes [id number] 40mg Take 1 [facility] e 40 mg EC 3-24 tablet by ity of tablet 00:00: mouth 2 [place] 00 (two) Medical times Branch daily. famotidine 2020-0 Yes [id number] 20mg Take 1 [facility] (PEPCID AC) 3-24 tablet by ity of 20 mg 00:00: mouth 2 [place] tablet 00 (two) Medical times Branch daily. phenytoin 2020-0 Yes [id number] 400mg Take 4 [facility] nivers Extended 3-24 capsules ity of (DILANTIN) 00:00: by mouth [place] 100 mg 00 daily. Medical capsule Branch FLUoxetine 2020-0 Yes 40mg Take 1 [facility] rs (PROZAC) 40 3-24 capsule by it y of mg capsule 00:00: mouth [place] 00 daily. Medical Branch cholestyram 2020-0 Yes [id number] 2g Take 0.5 [facility] ine 4 gram 3-24 Packets by ity of powder 00:00: mouth 3 [place] 00 (three) Medical times Branch daily with meals. clonazePAM 2020-0 Yes [id number] 1mg Take 1 [facility] 1 mg tablet 3-24 tablet by ity of 00:00: mouth once [place] 00 daily as Medical needed Branch (panic attack). pantoprazol 2020-0 Yes [id number] 40mg Take 1 [facility] e 40 mg EC 3-24 tablet by ity of tablet 00:00: mouth 2 [place] 00 (two) Medical times Branch daily. famotidine 2020-0 Yes [id number] 20mg Take 1 [facility] (PEPCID AC) 3-24 tablet by ity of 20 mg 00:00: mouth 2 [place] tablet 00 (two) Medical times Branch daily. phenytoin 2020-0 Yes [id number] 400mg Take 4 [facility] nivers Extended 3-24 capsules ity of (DILANTIN) 00:00: by mouth [place] 100 mg 00 daily. Medical capsule Branch FLUoxetine 2020-0 Yes 40mg Take 1 [facility] rs (PROZAC) 40 3-24 capsule by it y of mg capsule 00:00: mouth [place] 00 daily. Medical Branch cholestyram 2020-0 Yes [id number] 2g Take 0.5 [facility] ine 4 gram 3-24 Packets by ity of powder 00:00: mouth 3 (three) Medical times Branch daily with meals. pantoprazol 2020-0 Yes [id number] 40mg Take 1 [facility] e 40 mg EC 3-24 tablet by ity of tablet 00:00: mouth 2 (two) Medical times Branch daily. famotidine 2020-0 Yes [id number] 20mg Take 1 [facility] (PEPCID AC) 3-24 tablet by ity of 20 mg 00:00: mouth 2 [place] tablet 00 (two) Medical times Branch daily. phenytoin 2020-0 Yes [id number] 400mg Take 4 [facility] nivers Extended 3-24 capsules ity of (DILANTIN) 00:00: by mouth [place] 100 mg 00 daily. Medical capsule Branch FLUoxetine 2020-0 Yes 40mg Take 1 [facility] rs (PROZAC) 40 3-24 capsule by it y of mg capsule 00:00: mouth 00 daily. Medical Branch cholestyram 2020-0 Yes [id number] 2g Take 0.5 [facility] ine 4 gram 3-24 Packets by ity of powder 00:00: mouth 3 (three) Medical times Branch daily with meals. pantoprazol 2020-0 Yes [id number] 40mg Take 1 [facility] e 40 mg EC 3-24 tablet by ity of tablet 00:00: mouth 2 [place] 00 (two) Medical times Branch daily. famotidine 2020-0 Yes [id number] 20mg Take 1 [facility] (PEPCID AC) 3-24 tablet by ity of 20 mg 00:00: mouth 2 [place] tablet 00 (two) Medical times Branch daily. phenytoin 2020-0 Yes [id number] 400mg Take 4 [facility] nivers Extended 3-24 capsules ity of (DILANTIN) 00:00: by mouth [place] 100 mg 00 daily. Medical capsule Branch FLUoxetine 2020-0 Yes 40mg Take 1 [facility] rs (PROZAC) 40 3-24 capsule by it y of mg capsule 00:00: mouth 00 daily. Medical Branch cholestyram 2020-0 Yes [id number] 2g Take 0.5 [facility] ine 4 gram 3-24 Packets by ity of powder 00:00: mouth 3 (three) Medical times Branch daily with meals. pantoprazol 2020-0 Yes [id number] 40mg Take 1 [facility] e 40 mg EC 3-24 tablet by ity of tablet 00:00: mouth 2 (two) Medical times Branch daily. famotidine 2020-0 Yes [id number] 20mg Take 1 [facility] (PEPCID AC) 3-24 tablet by ity of 20 mg 00:00: mouth 2 [place] tablet (two) Medical times Branch daily. phenytoin 2020-0 Yes [id number] 400mg Take 4 [facility] nivers Extended 3-24 capsules ity of (DILANTIN) 00:00: by mouth [place] 100 mg 00 daily. Medical capsule Branch FLUoxetine 2020-0 Yes 40mg Take 1 [facility] rs (PROZAC) 40 3-24 capsule by it y of mg capsule 00:00: mouth 00 daily. Medical Branch cholestyram 2020-0 Yes [id number] 2g Take 0.5 [facility] ine 4 gram 3-24 Packets by ity of powder 00:00: mouth (three) Medical times Branch daily with meals. pantoprazol 2020-0 Yes [id number] 40mg Take 1 [facility] e 40 mg EC 3-24 tablet by ity of tablet 00:00: mouth 2 [place] 00 (two) Medical times Branch daily. famotidine 2020-0 Yes [id number] 20mg Take 1 [facility] (PEPCID AC) 3-24 tablet by ity of 20 mg 00:00: mouth 2 [place] tablet 00 (two) Medical times Branch daily. phenytoin 2020-0 Yes [id number] 400mg Take 4 [facility] nivers Extended 3-24 capsules ity of (DILANTIN) 00:00: by mouth [place] 100 mg 00 daily. Medical capsule Branch FLUoxetine 2020-0 Yes 40mg Take 1 [facility] rs (PROZAC) 40 3-24 capsule by it y of mg capsule 00:00: mouth [place] 00 daily. Medical Branch cholestyram 2020-0 Yes [id number] 2g Take 0.5 [facility] ine 4 gram 3-24 Packets by ity of powder 00:00: mouth 3 [place] (three) Medical times Branch daily with meals. pantoprazol 2020-0 Yes [id number] 40mg Take 1 [facility] e 40 mg EC 3-24 tablet by ity of tablet 00:00: mouth 2 [place] 00 (two) Medical times Branch daily. famotidine 2020-0 Yes [id number] 20mg Take 1 [facility] (PEPCID AC) 3-24 tablet by ity of 20 mg 00:00: mouth 2 [place] tablet 00 (two) Medical times Branch daily. phenytoin 2020-0 Yes [id number] 400mg Take 4 [facility] nivers Extended 3-24 capsules ity of (DILANTIN) 00:00: by mouth [place] 100 mg 00 daily. Medical capsule Branch FLUoxetine 2020-0 Yes 40mg Take 1 [facility] rs (PROZAC) 40 3-24 capsule by it y of mg capsule 00:00: mouth [place] 00 daily. Medical Branch cholestyram 2020-0 Yes [id number] 2g Take 0.5 [facility] ine 4 gram 3-24 Packets by ity of powder 00:00: mouth 3 (three) Medical times Branch daily with meals. pantoprazol 2020-0 Yes [id number] 40mg Take 1 [facility] e 40 mg EC 3-24 tablet by ity of tablet 00:00: mouth 2 [place] 00 (two) Medical times Branch daily. famotidine 2020-0 Yes [id number] 20mg Take 1 [facility] (PEPCID AC) 3-24 tablet by ity of 20 mg 00:00: mouth 2 [place] tablet 00 (two) Medical times Branch daily. phenytoin 2020-0 Yes [id number] 400mg Take 4 [facility] nivers Extended 3-24 capsules ity of (DILANTIN) 00:00: by mouth [place] 100 mg 00 daily. Medical capsule Branch FLUoxetine 2020-0 Yes 40mg Take 1 [facility] rs (PROZAC) 40 3-24 capsule by it y of mg capsule 00:00: mouth [place] 00 daily. Medical Branch cholestyram 2020-0 Yes [id number] 2g Take 0.5 [facility] ine 4 gram 3-24 Packets by ity of powder 00:00: mouth 3 [place] (three) Medical times Branch daily with meals. pantoprazol 2020-0 Yes [id number] 40mg Take 1 [facility] e 40 mg EC 3-24 tablet by ity of tablet 00:00: mouth 2 [place] 00 (two) Medical times Branch daily. famotidine 2020-0 Yes [id number] 20mg Take 1 [facility] (PEPCID AC) 3-24 tablet by ity of 20 mg 00:00: mouth 2 [place] tablet 00 (two) Medical times Branch daily. phenytoin 2020-0 Yes [id number] 400mg Take 4 [facility] nivers Extended 3-24 capsules ity of (DILANTIN) 00:00: by mouth [place] 100 mg 00 daily. Medical capsule Branch FLUoxetine 2020-0 Yes 40mg Take 1 [facility] rs (PROZAC) 40 3-24 capsule by it y of mg capsule 00:00: mouth 00 daily. Medical Branch cholestyram 2020-0 Yes [id number] 2g Take 0.5 [facility] ine 4 gram 3-24 Packets by ity of powder 00:00: mouth 3 (three) Medical times Branch daily with meals. pantoprazol 2020-0 Yes [id number] 40mg Take 1 [facility] e 40 mg EC 3-24 tablet by ity of tablet 00:00: mouth 2 [place] 00 (two) Medical times Branch daily. famotidine 2020-0 Yes [id number] 20mg Take 1 [facility] (PEPCID AC) 3-24 tablet by ity of 20 mg 00:00: mouth 2 [place] tablet 00 (two) Medical times Branch daily. phenytoin 2020-0 Yes [id number] 400mg Take 4 [facility] nivers Extended 3-24 capsules ity of (DILANTIN) 00:00: by mouth [place] 100 mg 00 daily. Medical capsule Branch FLUoxetine 2020-0 Yes 40mg Take 1 [facility] rs (PROZAC) 40 3-24 capsule by it y of mg capsule 00:00: mouth [place] 00 daily. Medical Branch cholestyram 2020-0 Yes [id number] 2g Take 0.5 [facility] ine 4 gram 3-24 Packets by ity of powder 00:00: mouth 3 00 (three) Medical times Branch daily with meals. pantoprazol 2020-0 Yes [id number] 40mg Take 1 [facility] e 40 mg EC 3-24 tablet by ity of tablet 00:00: mouth 2 [place] 00 (two) Medical times Branch daily. famotidine 2020-0 Yes [id number] 20mg Take 1 [facility] (PEPCID AC) 3-24 tablet by ity of 20 mg 00:00: mouth 2 [place] tablet 00 (two) Medical times Branch daily. phenytoin 2020-0 Yes [id number] 400mg Take 4 [facility] nivers Extended 3-24 capsules ity of (DILANTIN) 00:00: by mouth [place] 100 mg 00 daily. Medical capsule Branch FLUoxetine 2020-0 Yes 40mg Take 1 [facility] rs (PROZAC) 40 3-24 capsule by it y of mg capsule 00:00: mouth 00 daily. Medical Branch cholestyram 2020-0 Yes [id number] 2g Take 0.5 [facility] ine 4 gram 3-24 Packets by ity of powder 00:00: mouth 3 (three) Medical times Branch daily with meals. pantoprazol 2020-0 Yes [id number] 40mg Take 1 [facility] e 40 mg EC 3-24 tablet by ity of tablet 00:00: mouth 2 00 (two) Medical times Branch daily. famotidine 2020-0 Yes [id number] 20mg Take 1 [facility] (PEPCID AC) 3-24 tablet by ity of 20 mg 00:00: mouth 2 [place] tablet 00 (two) Medical times Branch daily. phenytoin 2020-0 Yes [id number] 400mg Take 4 [facility] nivers Extended 3-24 capsules ity of (DILANTIN) 00:00: by mouth [place] 100 mg 00 daily. Medical capsule Branch FLUoxetine 2020-0 Yes 40mg Take 1 [facility] rs (PROZAC) 40 3-24 capsule by it y of mg capsule 00:00: mouth 00 daily. Medical Branch cholestyram 2020-0 Yes [id number] 2g Take 0.5 [facility] ine 4 gram 3-24 Packets by ity of powder 00:00: mouth 3 00 (three) Medical times Branch daily with meals. pantoprazol 2020-0 Yes [id number] 40mg Take 1 [facility] e 40 mg EC 3-24 tablet by ity of tablet 00:00: mouth 2 [place] 00 (two) Medical times Branch daily. famotidine 2020-0 Yes [id number] 20mg Take 1 [facility] (PEPCID AC) 3-24 tablet by ity of 20 mg 00:00: mouth 2 [place] tablet 00 (two) Medical times Branch daily. phenytoin 2020-0 Yes [id number] 400mg Take 4 U nivers Extended 3-24 capsules ity of (DILANTIN) 00:00: by mouth [place] 100 mg 00 daily. Medical capsule Branch FLUoxetine 2020-0 Yes 40mg Take 1 Unive rs (PROZAC) 40 3-24 capsule by it y of mg capsule 00:00: mouth [place] 00 daily. Medical Branch cholestyram 2020-0 Yes [id number] 2g Take 0.5 [facility] ine 4 gram 3-24 Packets by ity of powder 00:00: mouth 3 [place] 00 (three) Medical times Branch daily with meals. famotidine 2020-0 Yes [id number] 20mg Take 1 Univers (PEPCID AC) 3-24 tablet by ity of 20 mg 00:00: mouth 2 [place] tablet 00 (two) Medical times Branch daily. phenytoin 2020-0 Yes [id number] 400mg Take 4 U nivers Extended 3-24 capsules ity of (DILANTIN) 00:00: by mouth [place] 100 mg 00 daily. Medical capsule Branch FLUoxetine 2020-0 Yes 40mg Take 1 Unive rs (PROZAC) 40 3-24 capsule by it y of mg capsule 00:00: mouth [place] 00 daily. Medical Branch cholestyram 2020-0 Yes [id number] 2g Take 0.5 [facility] ine 4 gram 3-24 Packets by ity of powder 00:00: mouth 3 [place] (three) Medical times Branch daily with meals. famotidine 2020-0 Yes [id number] 20mg Take 1 Univers (PEPCID AC) 3-24 tablet by ity of 20 mg 00:00: mouth 2 [place] tablet 00 (two) Medical times Branch daily. phenytoin 2020-0 Yes [id number] 400mg Take 4 U nivers Extended 3-24 capsules ity of (DILANTIN) 00:00: by mouth [place] 100 mg 00 daily. Medical capsule Branch FLUoxetine 2020-0 Yes 40mg Take 1 Unive rs (PROZAC) 40 3-24 capsule by it y of mg capsule 00:00: mouth [place] 00 daily. Medical Branch cholestyram 2020-0 Yes [id number] 2g Take 0.5 [facility] ine 4 gram 3-24 Packets by ity of powder 00:00: mouth 3 [place] 00 (three) Medical times Branch daily with meals. famotidine 2020-0 Yes [id number] 20mg Take 1 Univers (PEPCID AC) 3-24 tablet by ity of 20 mg 00:00: mouth 2 [place] tablet 00 (two) Medical times Branch daily. famotidine 2020-0 Yes [id number] 20mg Take 1 Univers (PEPCID AC) 3-24 tablet by ity of 20 mg 00:00: mouth 2 [place] tablet 00 (two) Medical times Branch daily. famotidine 2020-0 Yes [id number] 20mg Take 1 Univers (PEPCID AC) 3-24 tablet by ity of 20 mg 00:00: mouth 2 [place] tablet 00 (two) Medical times Branch daily. famotidine 2020-0 Yes [id number] 20mg Take 1 Univers (PEPCID AC) 3-24 tablet by ity of 20 mg 00:00: mouth 2 [place] tablet 00 (two) Medical times Branch daily. famotidine 2020-0 Yes [id number] 20mg Take 1 Univers (PEPCID AC) 3-24 tablet by ity of 20 mg 00:00: mouth 2 [place] tablet 00 (two) Medical times Branch daily. famotidine 2020-0 Yes [id number] 20mg Take 1 Univers (PEPCID AC) 3-24 tablet by ity of 20 mg 00:00: mouth 2 [place] tablet 00 (two) Medical times Branch daily. famotidine 2020-0 Yes [id number] 20mg Take 1 Univers (PEPCID AC) 3-24 tablet by ity of 20 mg 00:00: mouth 2 [place] tablet 00 (two) Medical times Branch daily. famotidine 2020-0 Yes [id number] 20mg Take 1 Univers (PEPCID AC) 3-24 tablet by ity of 20 mg 00:00: mouth 2 [place] tablet 00 (two) Medical times Branch daily. famotidine 2020-0 Yes [id number] 20mg Take 1 Univers (PEPCID AC) 3-24 tablet by ity of 20 mg 00:00: mouth 2 [place] tablet 00 (two) Medical times Branch daily. famotidine 2020-0 Yes [id number] 20mg Take 1 Univers (PEPCID AC) 3-24 tablet by ity of 20 mg 00:00: mouth 2 [place] tablet 00 (two) Medical times Branch daily. famotidine 2020-0 Yes [id number] 20mg Take 1 Univers (PEPCID AC) 3-24 tablet by ity of 20 mg 00:00: mouth 2 [place] tablet 00 (two) Medical times Branch daily. famotidine 2020-0 Yes [id number] 20mg Take 1 Univers (PEPCID AC) 3-24 tablet by ity of 20 mg 00:00: mouth 2 [place] tablet 00 (two) Medical times Branch daily. famotidine 2020-0 Yes [id number] 20mg Take 1 Univers (PEPCID AC) 3-24 tablet by ity of 20 mg 00:00: mouth 2 [place] tablet 00 (two) Medical times Branch daily. famotidine 2020-0 Yes [id number] 20mg Take 1 Univers (PEPCID AC) 3-24 tablet by ity of 20 mg 00:00: mouth 2 [place] tablet 00 (two) Medical times Branch daily. famotidine 2020-0 Yes [id number] 20mg Take 1 Univers (PEPCID AC) 3-24 tablet by ity of 20 mg 00:00: mouth 2 [place] tablet 00 (two) Medical times Branch daily. famotidine 2020-0 Yes [id number] 20mg Take 1 Univers (PEPCID AC) 3-24 tablet by ity of 20 mg 00:00: mouth 2 [place] tablet 00 (two) Medical times Branch daily. famotidine 2020-0 Yes [id number] 20mg Take 1 Univers (PEPCID AC) 3-24 tablet by ity of 20 mg 00:00: mouth 2 [place] tablet 00 (two) Medical times Branch daily. famotidine 2020-0 Yes [id number] 20mg Take 1 Univers (PEPCID AC) 3-24 tablet by ity of 20 mg 00:00: mouth 2 [place] tablet 00 (two) Medical times Branch daily. famotidine 2020-0 Yes [id number] 20mg Take 1 Univers (PEPCID AC) 3-24 tablet by ity of 20 mg 00:00: mouth 2 [place] tablet 00 (two) Medical times Branch daily. famotidine 2020-0 Yes [id number] 20mg Take 1 Univers (PEPCID AC) 3-24 tablet by ity of 20 mg 00:00: mouth 2 [place] tablet 00 (two) Medical times Branch daily. pantoprazol 2020-0 Yes [id number] 40mg Take 1 Univers e 40 mg EC 3-24 tablet by ity of tablet 00:00: mouth 2 [place] 00 (two) Medical times Branch daily. famotidine 2020-0 Yes [id number] 20mg Take 1 Univers (PEPCID AC) 3-24 tablet by ity of 20 mg 00:00: mouth 2 [place] tablet 00 (two) Medical times Branch daily. phenytoin 2020-0 Yes [id number] 400mg Take 4 U nivers Extended 3-24 capsules ity of (DILANTIN) 00:00: by mouth [place] 100 mg 00 daily. Medical capsule Branch FLUoxetine 2020-0 Yes 40mg Take 1 [facility] rs (PROZAC) 40 3-24 capsule by it y of mg capsule 00:00: mouth [place] 00 daily. Medical Branch cholestyram 2020-0 Yes [id number] 2g Take 0.5 [facility] ine 4 gram 3-24 Packets by ity of powder 00:00: mouth 3 [place] 00 (three) Medical times Branch daily with meals. clonazePAM 2020-0 Yes [id number] 1mg Take 1 [facility] 1 mg tablet 3-24 tablet by ity of 00:00: mouth once 00 daily as Medical needed Branch (panic attack). pantoprazol 2020-0 Yes [id number] 40mg Take 1 [facility] e 40 mg EC 3-24 tablet by ity of tablet 00:00: mouth 2 [place] 00 (two) Medical times Branch daily. famotidine 2020-0 Yes [id number] 20mg Take 1 Univers (PEPCID AC) 3-24 tablet by ity of 20 mg 00:00: mouth 2 [place] tablet 00 (two) Medical times Branch daily. famotidine 2020-0 2023- No [id number] 20mg Take 1 Univers (PEPCID AC) 3-24 01-10 tablet by it y of 20 mg 00:00: 00:00 mouth 2 [place] tablet 00 :00 (two) Medical times Branch daily. famotidine 2020-0 2023- No [id number] 20mg Take 1 Univers (PEPCID AC) 3-24 01-10 tablet by it y of 20 mg 00:00: 00:00 mouth 2 [place] tablet 00 :00 (two) Medical times Branch daily. famotidine 2019-2022- No [id number] 20mg Take 1 Univers (PEPCID AC) 07-07- tablet by it y of 20 mg 00:00: 00:00 mouth 2 [place] tablet 00 :00 (two) Medical times Branch daily. famotidine 2022- No [id number] 20mg Take 1 Univers (PEPCID AC) 07-07 tablet by it y of 20 mg 00:00: 00:00 mouth 2 [place] tablet 00 :00 (two) Medical times Branch daily. famotidine 2022- No [id number] 20mg Take 1 [facility] (PEPCID AC) 07-07 tablet by it y of 20 mg 00:00: 00:00 mouth 2 [place] tablet 00 :00 (two) Medical times Branch daily. famotidine No [id number] 20mg Take 1 [facility] (PEPCID AC) 07-07 tablet by it y of 20 mg 00:00: 00:00 mouth 2 [place] tablet 00 :00 (two) Medical times Branch daily. phenytoin 2019- No [id number] 400mg Take 4 [facility] Extended 07-07- capsules ity of (DILANTIN) 00:00: 00:00 by mouth [place] 100 mg 00 :00 daily. Medical capsule Branch FLUoxetine 2019- No 40mg Take 1 Univ ers (PROZAC) 40 07-07 capsule by i ty of mg capsule 00:00: 00:00 mouth [place] 00 :00 daily. Medical Branch cholestyram 2019- No [id number] 2g Take 0.5 [facility] ine 4 gram 07-07 Packets by it y of powder 00:00: 00:00 mouth 3 [place] 00 :00 (three) Medical times Branch daily with meals. pantoprazol 2019-2019- No [id number] 40mg Take 1 [facility] e 40 mg EC 07-07 tablet by ity of tablet 00:00: 00:00 mouth 2 [place] 00 :00 (two) Medical times Branch daily. clonazePAM 2019-2019- No [id number] 1mg Take 1 [facility] 1 mg tablet 07-07- tablet by it y of 00:00: 00:00 mouth once [place] 00 :00 daily as Medical needed Branch (panic attack). clonazePAM 2020-0 2020- No [id number] 1mg Take 1 [facility] 1 mg tablet 3-24 03-24 tablet by it y of 00:00: 00:00 mouth 3 [place] 00 :00 (three) Medical times Branch daily. levothyroxi 2020-0 Yes [id number] 150ug Take 1 [facility] ne 150 mcg 3-12 tablet by ity of tablet 00:00: mouth [place] 00 every Medical morning. Branch levothyroxi 2020-0 Yes [id number] 150ug Take 1 [facility] ne 150 mcg 3-12 tablet by ity of tablet 00:00: mouth [place] 00 every Medical morning. Branch levothyroxi 2020-0 Yes [id number] 150ug Take 1 [facility] ne 150 mcg 3-12 tablet by ity of tablet 00:00: mouth [place] 00 every Medical morning. Branch levothyroxi 2020-0 Yes [id number] 150ug Take 1 [facility] ne 150 mcg 3-12 tablet by ity of tablet 00:00: mouth [place] 00 every Medical morning. Branch levothyroxi 2020-0 Yes [id number] 150ug Take 1 [facility] ne 150 mcg 3-12 tablet by ity of tablet 00:00: mouth [place] 00 every Medical morning. Branch levothyroxi 2020-0 Yes [id number] 150ug Take 1 [facility] ne 150 mcg 3-12 tablet by ity of tablet 00:00: mouth [place] 00 every Medical morning. Branch levothyroxi 2020-0 Yes [id number] 150ug Take 1 [facility] ne 150 mcg 3-12 tablet by ity of tablet 00:00: mouth [place] 00 every Medical morning. Branch levothyroxi 2020-0 Yes [id number] 150ug Take 1 [facility] ne 150 mcg 3-12 tablet by ity of tablet 00:00: mouth [place] 00 every Medical morning. Branch levothyroxi 2020-0 Yes [id number] 150ug Take 1 [facility] ne 150 mcg 3-12 tablet by ity of tablet 00:00: mouth [place] 00 every Medical morning. Branch levothyroxi 2020-0 Yes [id number] 150ug Take 1 [facility] ne 150 mcg 3-12 tablet by ity of tablet 00:00: mouth [place] 00 every Medical morning. Branch levothyroxi 2020-0 Yes [id number] 150ug Take 1 [facility] ne 150 mcg 3-12 tablet by ity of tablet 00:00: mouth [place] 00 every Medical morning. Branch levothyroxi 2020-0 Yes [id number] 150ug Take 1 [facility] ne 150 mcg 3-12 tablet by ity of tablet 00:00: mouth [place] 00 every Medical morning. Branch levothyroxi 2020-0 Yes [id number] 150ug Take 1 [facility] ne 150 mcg 3-12 tablet by ity of tablet 00:00: mouth [place] 00 every Medical morning. Branch levothyroxi 2020-0 Yes [id number] 150ug Take 1 [facility] ne 150 mcg 3-12 tablet by ity of tablet 00:00: mouth [place] 00 every Medical morning. Branch levothyroxi 2020-0 Yes [id number] 150ug Take 1 [facility] ne 150 mcg 3-12 tablet by ity of tablet 00:00: mouth [place] 00 every Medical morning. Branch levothyroxi 2020-0 Yes [id number] 150ug Take 1 [facility] ne 150 mcg 3-12 tablet by ity of tablet 00:00: mouth [place] 00 every Medical morning. Branch levothyroxi 2020-0 Yes [id number] 150ug Take 1 [facility] ne 150 mcg 3-12 tablet by ity of tablet 00:00: mouth [place] 00 every Medical morning. Branch levothyroxi 2020-0 Yes [id number] 150ug Take 1 [facility] ne 150 mcg 3-12 tablet by ity of tablet 00:00: mouth [place] 00 every Medical morning. Branch levothyroxi 2020-0 Yes [id number] 150ug Take 1 [facility] ne 150 mcg 3-12 tablet by ity of tablet 00:00: mouth [place] 00 every Medical morning. Branch levothyroxi 2020-0 Yes [id number] 150ug Take 1 [facility] ne 150 mcg 3-12 tablet by ity of tablet 00:00: mouth [place] 00 every Medical morning. Branch levothyroxi 2020-0 Yes [id number] 150ug Take 1 [facility] ne 150 mcg 3-12 tablet by ity of tablet 00:00: mouth [place] 00 every Medical morning. Branch levothyroxi 2020-0 Yes [id number] 150ug Take 1 [facility] ne 150 mcg 3-12 tablet by ity of tablet 00:00: mouth [place] 00 every Medical morning. Branch levothyroxi 2020-0 2020- No [id number] 150ug Take 1 [facility] ne 150 mcg 3-12 04-24 tablet by ity of tablet 00:00: 00:00 mouth [place] 00 :00 every Medical morning. Branch levothyroxi 2020-0 2020- No [id number] 150ug Take 1 [facility] ne 150 mcg 3-12 24 tablet by ity of tablet 00:00: 00:00 mouth [place] 00 :00 every Medical morning. Branch oseltamivir 2020-0 Yes [id number] 75mg Take 1 U nivers 75 mg 1-28 capsule by ity of capsule 00:00: mouth [place] (two) Medical times Branch daily. oseltamivir 2020-0 Yes [id number] 75mg Take 1 U nivers 75 mg 1-28 capsule by ity of capsule 00:00: mouth [place] (two) Medical times Branch daily. oseltamivir 2020-0 Yes [id number] 75mg Take 1 U nivers 75 mg 1-28 capsule by ity of capsule 00:00: mouth [place] (two) Medical times Branch daily. oseltamivir 2020-0 Yes [id number] 75mg Take 1 U nivers 75 mg 1-28 capsule by ity of capsule 00:00: mouth [place] (two) Medical times Branch daily. oseltamivir 2020-0 Yes [id number] 75mg Take 1 U nivers 75 mg 1-28 capsule by ity of capsule 00:00: mouth [place] (two) Medical times Branch daily. oseltamivir 2020-0 Yes [id number] 75mg Take 1 U nivers 75 mg 1-28 capsule by ity of capsule 00:00: mouth [place] (two) Medical times Branch daily. oseltamivir 2020-0 Yes [id number] 75mg Take 1 U nivers 75 mg 1-28 capsule by ity of capsule 00:00: mouth [place] (two) Medical times Branch daily. oseltamivir 2020-0 Yes [id number] 75mg Take 1 U nivers 75 mg 1-28 capsule by ity of capsule 00:00: mouth [place] (two) Medical times Branch daily. oseltamivir 2020-0 Yes [id number] 75mg Take 1 U nivers 75 mg 1-28 capsule by ity of capsule 00:00: mouth [place] (two) Medical times Branch daily. oseltamivir 2020-0 Yes [id number] 75mg Take 1 U nivers 75 mg 1-28 capsule by ity of capsule 00:00: mouth [place] (two) Medical times Branch daily. oseltamivir 2020-0 Yes [id number] 75mg Take 1 U nivers 75 mg 1-28 capsule by ity of capsule 00:00: mouth (two) Medical times Branch daily. oseltamivir 2020-0 Yes [id number] 75mg Take 1 U nivers 75 mg 1-28 capsule by ity of capsule 00:00: mouth (two) Medical times Branch daily. oseltamivir 2020-0 Yes [id number] 75mg Take 1 U nivers 75 mg 1-28 capsule by ity of capsule 00:00: mouth (two) Medical times Branch daily. oseltamivir 2020-0 Yes [id number] 75mg Take 1 U nivers 75 mg 1-28 capsule by ity of capsule 00:00: mouth (two) Medical times Branch daily. oseltamivir 2020-0 Yes [id number] 75mg Take 1 U nivers 75 mg 1-28 capsule by ity of capsule 00:00: mouth (two) Medical times Branch daily. oseltamivir 2020-0 Yes [id number] 75mg Take 1 U nivers 75 mg 1-28 capsule by ity of capsule 00:00: mouth (two) Medical times Branch daily. oseltamivir 2020-0 Yes [id number] 75mg Take 1 U nivers 75 mg 1-28 capsule by ity of capsule 00:00: mouth (two) Medical times Branch daily. oseltamivir 2020-0 Yes [id number] 75mg Take 1 U nivers 75 mg 1-28 capsule by ity of capsule 00:00: mouth (two) Medical times Branch daily. oseltamivir 2020-0 Yes [id number] 75mg Take 1 U nivers 75 mg 1-28 capsule by ity of capsule 00:00: mouth (two) Medical times Branch daily. oseltamivir 2020-0 Yes [id number] 75mg Take 1 U nivers 75 mg 1-28 capsule by ity of capsule 00:00: mouth (two) Medical times Branch daily. oseltamivir 2020-0 Yes [id number] 75mg Take 1 U nivers 75 mg 1-28 capsule by ity of capsule 00:00: mouth (two) Medical times Branch daily. oseltamivir 2020-0 Yes [id number] 75mg Take 1 U nivers 75 mg 1-28 capsule by ity of capsule 00:00: mouth 2 [place] 00 (two) Medical times Branch daily. oseltamivir 2020-0 Yes [id number] 75mg Take 1 U nivers 75 mg 1-28 capsule by ity of capsule 00:00: mouth 2 [place] 00 (two) Medical times Branch daily. oseltamivir 2020-0 Yes [id number] 75mg Take 1 U nivers 75 mg 1-28 capsule by ity of capsule 00:00: mouth 2 [place] 00 (two) Medical times Branch daily. oseltamivir 2020-0 Yes [id number] 75mg Take 1 U nivers 75 mg 1-28 capsule by ity of capsule 00:00: mouth 2 [place] 00 (two) Medical times Branch daily. oseltamivir 2020-0 Yes [id number] 75mg Take 1 U nivers 75 mg 1-28 capsule by ity of capsule 00:00: mouth 2 [place] 00 (two) Medical times Branch daily. oseltamivir 2020-0 Yes [id number] 75mg Take 1 U nivers 75 mg 1-28 capsule by ity of capsule 00:00: mouth [address] [place] [address] 00 (two) Medical times Branch daily. oseltamivir 2020-0 Yes [id number] 75mg Take 1 U nivers 75 mg 1-28 capsule by ity of capsule 00:00: mouth 2 [place] 00 (two) Medical times Branch daily. oseltamivir 2020-0 2020- No [id number] 75mg Take 1 Univers 75 mg 1-28 05-19 capsule by ity of capsule 00:00: 00:[address] [place] [address] 00 :00 (two) Medical times Branch daily. pantoprazol 2018-04 2020- No [id number] 40mg Take 1 Univers e 40 mg EC 2-20 03-20 tablet by ity of tablet 00:00: 04:59 mouth [place] 00 :00 daily for Medical 90 days. Branch pantoprazol 2018-04 2020- No [id number] 40mg Take 1 Univers e 40 mg EC 2-20 03-20 tablet by ity of tablet 00:00: 04:59 mouth [place] 00 :00 daily for Medical 90 days. Branch pantoprazol 2018-04 2020- No [id number] 40mg Take 1 Univers e 40 mg [...] by ity of tablet 00:00: mouth at [place] [address] bedtime. Medical Branch albuterol Yes 2{puff} Inhale 2 U nivers 90 5-17 Puffs ity of mcg/actuati 00:00: every 6 [place] as on inhaler 00 (six) Medical hours as Branch needed for Wheezing or Shortness of Breath. pantoprazol 2017- Yes 40mg Take 1 Univ ers e 40 mg EC 5-17 tablet by ity of tablet 00:00: mouth [place] [address] daily. Medical Branch clonazePAM 2017- Yes [id number] 1 tablet Univers 1 mg tablet 5-17 [...] at [place] 00 bedtime. Medical Branch pantoprazol 2017- Yes [...] or Shortness of Breath. clonazePAM 2018-0 Yes [id number] 1 tablet Univers 1 mg tablet 5-17 [...] at [place] 00 bedtime. Medical Branch albuterol 2018-0 Yes [...] at [place] 00 bedtime. Medical Branch albuterol 2018-0 Yes [...] 2022-07-28 13:43:00 157 mm[Hg] Univer sity of [facility] Diastolic blood 2022-07-28 13:43:00 85 mm[Hg] [facility] Heart rate 2022-07-28 13:43:00 78 /min [facility] Body temperature 2022-07-28 13:43:00 35.94 Rachel [facility] Body height 2022-07-28 13:43:00 162.6 cm Universi [facility] Body weight 2022-07-28 13:43:00 74.844 kg Universi [facility] BMI 2022-07-28 13:43:00 28.32 kg/m2 Universi [facility] Systolic blood 2022-07-23 04:56:00 125 mm[Hg] Univer sity of [facility] Diastolic blood 2022-07-23 04:56:00 83 mm[Hg] [facility] Heart rate 2022-07-23 04:56:00 67 /min [facility] Respiratory rate 2022-07-23 04:56:00 18 /min [facility] Oxygen saturation in 2022-07-23 04:56:00 97 /min [facility] Arterial blood by [facility] Pulse oximetry Branch Body temperature 2022-07-23 00:40:00 37.06 Rachel [facility] Body weight 2022-07-23 00:40:00 79.379 kg Universi ty [facility] BMI 2022-07-23 00:40:00 30.04 kg/m2 Universi [facility] Systolic blood 2022-04-25 18:59:00 133 mm[Hg] Univer [...] room air University of Arterial blood by [facility] selin Pulse oximetry Branch Systolic blood 2019-12-02 14:54:00 133 mm[Hg] Univer sity of pressure [place] [facility] Diastolic blood 2019-12-02 14:54:00 87 mm[Hg] Unive rsity of pressure [place] [facility] Heart rate 2019-12-02 14:54:00 73 /min Universi ty of [place] [facility] Body temperature 2019-12-02 14:12:00 36.56 Rachel [facility] ersity [facility] [place] [facility] Body height 2019-12-02 14:12:00 165.1 cm Universi ty [facility] [place] [facility] Body weight 2019-12-02 14:12:00 94.167 kg Universi ty of [place] [facility] BMI 2019-12-02 14:12:00 34.55 kg/m2 Universi ty [facility] [place] [facility] Oxygen saturation in 2019-12-02 14:12:00 100 /min room air University of Arterial blood by [facility] selin Pulse oximetry Branch Systolic blood 2019-12-02 14:54:00 133 mm[Hg] Univer sity of pressure [place] [facility] Diastolic blood 2019-12-02 14:54:00 87 mm[Hg] Unive rsity of pressure [place] [facility] Heart rate 2019-12-02 14:54:00 73 /min [facility]i ty [facility] [place] [facility] Body temperature 2019-12-02 14:12:00 36.56 Rachel [facility] Body height 2019-12-02 14:12:00 165.1 cm Universi ty [facility] Body weight 2019-12-02 14:12:00 94.167 kg Universi ty [facility] BMI 2019-12-02 14:12:00 34.55 kg/m2 Universi [facility] Oxygen saturation in 2019-12-02 14:12:00 100 /min room air University of Arterial blood by [facility] Pulse oximetry Branch Systolic blood 2022-07-28 19:11:27 132 mm[Hg] [facility] pressure Diastolic blood 2022-07-28 19:11:27 90 mm[Hg] [facility] pressure Heart rate 2022-07-28 19:11:27 86 /min [facility] Body temperature 2022-07-28 19:11:27 36.67 Rachel [facility] Respiratory rate 2022-07-28 19:11:27 18 /min [facility] Oxygen saturation in 2022-07-28 19:11:27 97 /min [facility] Arterial blood by Pulse oximetry Body height 2022-07-28 15:47:00 162.6 cm [facility] Body weight 2022-07-28 15:47:00 74.844 kg [facility] BMI 2022-07-28 15:47:00 28.32 kg/m2 [facility] BP Systolic 2021-11-25 19:02:00 BP [...] Performed CT PELVIS WO CONTRAST 2022-07-28 17:40[facility] AND 2022-07-28 16:40:00 [facility] DIFFERENTIAL COMPREHENSIVE METABOLIC 2022-07-28 16:40:00 [facility] PANEL ESTIMATED GFR 2022-07-28 16:40:00 [facility] spital XR FEMUR 2 VW RIGHT 2022-07-28 16:20:00 [facility] XR PELVIS 1 OR 2 VW 2022-07-28 16:20:00 [facility] COMP. METABOLIC PANEL 2022-07-23 02:02:00 Lisa Murillo [facility] ([id number]) [facility] CBC WITH DIFF 2022-07-23 02:02:00 Lisa Murillo [facility] URINALYSIS 2022-07-23 01:59:00 Lisa Murillo [facility] CONSENT/REFUSAL FOR 2022-07-23 00:34:52 Doctor Unassigned, No [facility] DIAGNOSIS AND TREATMENT Name [facility] ASSIGNMENT OF BENEFITS 2022-06-15 19:19:00 Doctor Unassigned, No [facility] Name [facility] REFERRAL- 2022-01-10 05:01:00 Doctor Unassigned, No [facility] REQUEST/RESPONSE Name [facility] Plan of Care Planned Activity Planned Date Details Comments Source Future Scheduled 2022-08-10 COVID-19 VACCINE (#1) [facility] Test 13:16:26 [code = COVID-19 VACCINE (#1)] Future Scheduled 2022-08-10 Hepatitis C screening [facility] Test 13:16:26 (procedure) [code = 902503347] Future Scheduled 2022-08-10 Screening for [facility] Test 13:16:26 malignant neoplasm of cervix (procedure) [code = 857073143] Future Scheduled 2022-08-10 BREAST CANCER [facility] Test 13:16:26 SCREENING [code = BREAST CANCER SCREENING] Future Scheduled 2022-08-[address] [facility] Test 13:16:26 [code = COLONOSCOPY SCREENING] Future Scheduled 2022-08-10 INFLUENZA VACCINE [facility] Test 13:16:26 [code = INFLUENZA VACCINE] Future Scheduled 2022-08-08 COVID-19 VACCINE (#1) [facility] Test 01:29:04 [code = COVID-19 VACCINE (#1)] Future Scheduled 2022-08-08 Hepatitis C screening [facility] Test 01:29:04 (procedure) [code = 956583367] Future Scheduled 2022-08-08 Screening for [facility] Test 01:29:04 malignant neoplasm of cervix (procedure) [code = 124472346] Future Scheduled 2022-08-08 BREAST CANCER [facility] Test 01:29:04 SCREENING [code = BREAST CANCER SCREENING] Future Scheduled 2022-08-[address] [facility] Test 01:29:04 [code = COLONOSCOPY SCREENING] Future Scheduled 2022-08-08 INFLUENZA VACCINE [facility] Test 01:29:04 [code = INFLUENZA VACCINE] Goal Plan of Care Note [code = 78600-1] Goal Plan of Care Note [code = 78974-7] Goal Plan of Care Note [code = 72269-4] Goal Plan of Care Note [code = 38536-6] Goal Plan of Care Note [code = 52727-0] Goal Plan of Care Note [code = 68138-5] Goal Plan of Care Note [code = 55848-5] Goal Plan of Care Note [code = 62023-4] Goal Plan of Care Note [code = 45585-3] Goal Plan of Care Note [code = 27493-9] Goal Plan of Care Note [code = 31070-7] Goal Plan of Care Note [code = 59977-2] Goal Plan of Care Note [code = 89726-7] Goal Plan of Care Note [code = 46670-2] Goal Plan of Care Note [code = 37533-6] Goal Plan of Care Note [code = 06407-0] Goal Plan of Care Note [code = 68932-7] Goal Plan of Care Note [code = 96943-0] Goal Plan of Care Note [code = 82004-8] Goal Plan of Care Note [code = 92739-3] Goal Plan of Care Note [code = 81990-1] Goal Plan of Care Note [code = 04262-9] Goal Plan of Care Note [code = 98707-7] Goal Plan of Care Note [code = 04269-8] Goal Plan of Care Note [code = 90170-2] Goal Plan of Care Note [code = 01549-1] Goal Plan of Care Note [code = 15780-8] Goal Plan of Care Note [code = 27384-8] Goal Plan of Care Note [code = 30229-5] Goal Plan of Care Note [code = 30563-8] Goal Plan of Care Note [code = 80019-3] Goal Plan of Care Note [code = 41484-8] Goal Plan of Care Note [code = 70237-0] Goal Plan of Care Note [code = 41938-6] Goal Plan of Care Note [code = 08291-0] Goal Plan of Care Note [code = 88297-5] Goal Plan of Care Note [code = 53376-2] Goal Plan of Care Note [code = 65796-4] Goal Plan of Care Note [code = 80023-3] Goal Plan of Care Note [code = 96489-5] Goal Plan of Care Note [code = 97122-6] Goal Plan of Care Note [code = 49973-7] Goal Plan of Care Note [code = 27818-9] Goal Plan of Care Note [code = 07461-2] Goal Plan of Care Note [code = 13606-5] Goal Plan of Care Note [code = 56936-6] Goal Plan of Care Note [code = 43544-4] Goal Plan of Care Note [code = 01896-6] Goal Plan of Care Note [code = 38735-3] Goal Plan of Care Note [code = 06827-7] Goal Plan of Care Note [code = 16511-5] Goal Plan of Care Note [code = 92058-1] Goal Plan of Care Note [code = 32360-3] Goal Plan of Care Note [code = 01202-4] Goal Plan of Care Note [code = 98856-4] Goal Plan of Care Note [code = 41442-4] Goal Plan of Care Note [code = 12156-7] Goal Plan of Care Note [code = 43690-9] Goal Plan of Care Note [code = 54533-9] Goal Plan of Care Note [code = 55634-7] Goal Plan of Care Note [code = 86168-2] Goal Plan of Care Note [code = 07901-1] Goal Plan of Care Note [code = 39928-9] Goal Plan of Care Note [code = 10834-2] Goal Plan of Care Note [code = 88750-5] Goal Plan of Care Note [code = 41038-0] Goal Plan of Care Note [code = 61141-2] Goal Plan of Care Note [code = 79588-5] Goal Plan of Care Note [code = 78823-2] Goal Plan of Care Note [code = 18481-8] Goal Plan of Care Note [code = 78981-0] Goal Plan of Care Note [code = 99434-9] Goal Plan of Care Note [code = 74306-9] Goal Plan of Care Note [code = 55558-1] Goal Plan of Care Note [code = 94308-4] Goal Plan of Care Note [code = 39017-6] Goal Plan of Care Note [code = 95394-8] Goal Plan of Care Note [code = 40450-5] Goal Plan of Care Note [code = 30740-4] Goal Plan of Care Note [code = 99365-1] Goal Plan of Care Note [code = 96422-7] Goal Plan of Care Note [code = 02590-3] Goal Plan of Care Note [code = 60475-1] Goal Plan of Care Note [code = 84355-3] Goal Plan of Care Note [code = 28847-3] Goal Plan of Care Note [code = 73006-0] Goal Plan of Care Note [code = 12073-1] Goal Plan of Care Note [code = 99020-3] Goal Plan of Care Note [code = 70724-7] Goal Plan of Care Note [code = 39616-8] Goal Plan of Care Note [code = 94781-2] Goal Plan of Care Note [code = 92132-8] Goal Plan of Care Note [code = 85943-7] Goal Plan of Care Note [code = 11658-9] Goal Plan of Care Note [code = 73606-8] Goal Plan of Care Note [code = 04735-2] Goal Plan of Care Note [code = 72189-0] Goal Plan of Care Note [code = 58617-9] Goal Plan of Care Note [code = 64122-9] Goal Plan of Care Note [code = 17284-9] Goal Plan of Care Note [code = 52981-7] Goal Plan of Care Note [code = 73164-8] Goal Plan of Care Note [code = 07365-7] Goal Plan of Care Note [code = 12679-0] Goal Plan of Care Note [code = 83772-6] Goal Plan of Care Note [code = 70151-4] Goal Plan of Care Note [code = 92390-8] Goal Plan of Care Note [code = 95529-7] Goal Plan of Care Note [code = 83966-2] Goal Plan of Care Note [code = 18963-4] Goal Plan of Care Note [code = 83966-0] Goal Plan of Care Note [code = 53835-8] Goal Plan of Care Note [code = 60690-9] Goal Plan of Care Note [code = 16142-8] Goal Plan of Care Note [code = 64956-8] Goal Plan of Care Note [code = 78022-6] Goal Plan of Care Note [code = 92148-9] Goal Plan of Care Note [code = 15761-8] Goal Plan of Care Note [code = 73560-2] Goal Plan of Care Note [code = 53774-3] Goal Plan of Care Note [code = 97592-2] Goal Plan of Care Note [code = 34238-6] Goal Plan of Care Note [code = 72569-6] Goal Plan of Care Note [code = 44570-4] Goal Plan of Care Note [code = 53252-2] Goal Plan of Care Note [code = 32534-7] Goal Plan of Care Note [code = 71884-0] Goal Plan of Care Note [code = 32685-6] Goal Plan of Care Note [code = 13703-1] Goal Plan of Care Note [code = 87070-2] Goal Plan of Care Note [code = 74759-1] Goal Plan of Care Note [code = 30481-2] Goal Plan of Care Note [code = 61907-1] Goal Plan of Care Note [code = 25746-4] Goal Plan of Care Note [code = 52417-9] Goal Plan of Care Note [code = 26383-1] Goal Plan of Care Note [code = 38410-4] Goal Plan of Care Note [code = 99746-1] Goal Plan of Care Note [code = 53235-2] Goal Plan of Care Note [code = 67725-2] Goal Plan of Care Note [code = 04407-1] Goal Plan of Care Note [code = 61385-5] Goal Plan of Care Note [code = 28829-5] Goal Plan of Care Note [code = 73003-8] Goal Plan of Care Note [code = 84397-5] Goal Plan of Care Note [code = 51045-7] Goal Plan of Care Note [code = 05689-9] Goal Plan of Care Note [code = 18063-5] Goal Plan of Care Note [code = 52367-6] Goal Plan of Care Note [code = 34311-6] Goal Plan of Care Note [code = 50397-6] Goal Plan of Care Note [code = 41925-4] Goal Plan of Care Note [code = 41167-1] Goal Plan of Care Note [code = 95733-6] Goal Plan of Care Note [code = 20645-4] Goal Plan of Care Note [code = 73351-2] Goal Plan of Care Note [code = 32589-6] Goal Plan of Care Note [code = 44696-5] Goal Plan of Care Note [code = 95925-5] Goal Plan of Care Note [code = 55992-4] Goal Plan of Care Note [code = 90408-7] Goal Plan of Care Note [code = 44089-0] Goal Plan of Care Note [code = 31782-0] Goal Plan of Care Note [code = 62595-5] Goal Plan of Care Note [code = 35466-9] Goal Plan of Care Note [code = 62335-5] Goal Plan of Care Note [code = 39265-1] Goal Plan of Care Note [code = 05935-8] Goal Plan of Care Note [code = 76578-8] Goal Plan of Care Note [code = 26224-4] Goal Plan of Care Note [code = 44611-1] Goal Plan of Care Note [code = 95451-9] Goal Plan of Care Note [code = 54745-5] Goal Plan of Care Note [code = 02751-9] Goal Plan of Care Note [code = 51640-5] Goal Plan of Care Note [code = 37303-1] Goal Plan of Care Note [code = 59439-6] Goal Plan of Care Note [code = 32926-0] Goal Plan of Care Note [code = 94929-9] Goal Plan of Care Note [code = 05660-1] Goal Plan of Care Note [code = 95810-2] Goal Plan of Care Note [code = 35720-0] Goal Plan of Care Note [code = 27204-4] Goal Plan of Care Note [code = 66257-3] Goal Plan of Care Note [code = 34271-3] Goal Plan of Care Note [code = 55611-4] Goal Plan of Care Note [code = 98840-4] Goal Plan of Care Note [code = 49910-9] Goal Plan of Care Note [code = 17826-2] Goal Plan of Care Note [code = 57887-5] Goal Plan of Care Note [code = 40629-3] Goal Plan of Care Note [code = 60251-3] Goal Plan of Care Note [code = 40722-1] Goal Plan of Care Note [code = 43778-3] Goal Plan of Care Note [code = 74197-2] Goal Plan of Care Note [code = 19256-9] Goal Plan of Care Note [code = 00337-2] Goal Plan of Care Note [code = 81026-6] Goal Plan of Care Note [code = 65583-2] Goal Plan of Care Note [code = 29709-0] Goal Plan of Care Note [code = 97549-0] Goal Plan of Care Note [code = 25539-1] Goal Plan of Care Note [code = 26840-3] Goal Plan of Care Note [code = 32804-2] Goal Plan of Care Note [code = 76810-9] Goal Plan of Care Note [code = 80755-4] Goal Plan of Care Note [code = 22785-5] Goal Plan of Care Note [code = 25162-8] Goal Plan of Care Note [code = 73355-4] Goal Plan of Care Note [code = 54282-2] Goal Plan of Care Note [code = 64956-1] Goal Plan of Care Note [code = 93752-9] Goal Plan of Care Note [code = 10132-6] Goal Plan of Care Note [code = 41300-6] Goal Plan of Care Note [code = 06453-3] Goal Plan of Care Note [code = 69555-0] Goal Plan of Care Note [code = 08630-9] Goal Plan of Care Note [code = 65805-6] Goal Plan of Care Note [code = 20670-5] Goal Plan of Care Note [code = 81695-5] Goal Plan of Care Note [code = 97523-3] Goal Plan of Care Note [code = 99366-5] Goal Plan of Care Note [code = 72469-0] Goal Plan of Care Note [code = 19144-6] Goal Plan of Care Note [code = 44774-7] Goal Plan of Care Note [code = 69185-3] Goal Plan of Care Note [code = 99055-3] Goal Plan of Care Note [code = 13273-8] Goal Plan of Care Note [code = 80540-4] Goal Plan of Care Note [code = 57188-6] Goal Plan of Care Note [code = 52997-0] Goal Plan of Care Note [code = 77282-1] Goal Plan of Care Note [code = 06322-7] Goal Plan of Care Note [code = 84403-0] Goal Plan of Care Note [code = 99449-1] Goal Plan of Care Note [code = 88298-5] Goal Plan of Care Note [code = 37204-8] Goal Plan of Care Note [code = 29043-1] Goal Plan of Care Note [code = 40744-7] Goal Plan of Care Note [code = 24213-6] Goal Plan of Care Note [code = 06124-1] Goal Plan of Care Note [code = 27932-7] Goal Plan of Care Note [code = 85806-3] Goal Plan of Care Note [code = 64786-0] Goal Plan of Care Note [code = 28215-1] Goal Plan of Care Note [code = 10415-1] Goal Plan of Care Note [code = 44715-1] Goal Plan of Care Note [code = 72919-7] Goal Plan of Care Note [code = 33929-6] Goal Plan of Care Note [code = 02373-4] Goal Plan of Care Note [code = 98281-8] Goal Plan of Care Note [code = 21789-0] Goal Plan of Care Note [code = 98049-8] Goal Plan of Care Note [code = 85332-7] Goal Plan of Care Note [code = 59380-1] Goal Plan of Care Note [code = 49576-1] Goal Plan of Care Note [code = 68678-5] Goal Plan of Care Note [code = 00695-5] Goal Plan of Care Note [code = 19045-6] Goal Plan of Care Note [code = 67756-9] Goal Plan of Care Note [code = 84435-6] Goal Plan of Care Note [code = 17770-7] Goal Plan of Care Note [code = 87660-6] Goal Plan of Care Note [code = 39194-8] Goal Plan of Care Note [code = 42283-4] Goal Plan of Care Note [code = 82332-9] Goal Plan of Care Note [code = 63094-8] Goal Plan of Care Note [code = 70505-2] Encounters Start End Encounter Admission Attending Care Care Encounter Source Date/Time Date/Time Type Type Clinicians Facility Department ID 2021-07-15 Outpatient [facility] [id number] [place] 14:49:46 [id number] [facility] 2021-07-13 Outpatient [facility] [id number] [place] 13:18:38 [id number] [facility] 2022-08-07 2022-08-07 Outpatient FOG_Goytia_ AOSM AOSM 652 5538-20 Sowmya 00:00:00 00:00:00 Cody [id number] [facility] 2022-07-28 2022-07-28 Emergency Annita, 1.2.840.1 [id number] [id number] Methodi 10:49:00 14:17:[address] 3.430.2.7 Hospit a .3.160057 l .8 2022-07-28 2022-07-28 Outpatient Issa TOBAR [facility] [id number] Univers 09:00:00 09:20:09 STEFANIA renee [facility] 2022-07-28 2022-07-28 [facility] 1.2.840.114 [id number] Univers 09:00:00 09:20:09 Visit Stefania W SPECIALTY 350.1.13.10 [id number] Ut kush [place] [address] [facility] 2022-07-28 2022-07-28 Telephone [facility] 1.2.609.116 7332 73197 Univers 00:00:00 00:00:00 Stefania W SPECIALTY 350.1.13.10 [place] [id number] Ut kush [place] [address] [facility] 2022-07-28 2022-07-28 Travel 1.2.840.1 1.2.266.426 6943 [id number] Methodi 00:00:00 00:00:[address] 3.430.2.7 0.2.7.3.698 Ho spita .3.875142 084.8 l .8 2022-07-22 2022-07-23 Emergency X CACACE, [facility] ERT [id number] Univers 19:42:00 00:14:00 LISA [facility] 2022-07-22 2022-07-23 Emergency Cacace, TRAUMA 1.2.998.603 [id number] [id number] Univers 19:42:00 00:14:00 Lisa [facility] 350.1.13.10 [place] [id number] [address] 2022-07-06 2022-07-06 Outpatient R MARICARMEN [facility] [id number] Univers 16:10:00 16:10:00 STEFANIA shelley [facility] 2022-07-04 2022-07-04 Outpatient R [facility] [id number] Univers 15:00:00 15:00:00 [facility] 2022-06-30 2022-06-30 Outpatient R [facility] [id number] Univers 09:00:00 09:00:00 [facility] 2022-06-29 2022-06-29 [facility]phone [facility] 1.2.840.114 1 [id number] Univers 00:00:00 00:00:00 Stefania PRIMARY 350.1.13.10 it y of CARE 4.2.7.2.686 [facility] [id number] Ut dical [address] 2022-06-15 2022-06-15 Outpatient R [facility] [id number] Univers 13:20:23 23:59:00 ANDERSON ity of [facility] 2022-06-15 2022-06-15 [facility] 1.2.840.114 101 [id number] Univers 13:20:23 23:59:00 Encounter Anderson Ta NEIL 350.1.13.10 ity of [place] [facility].2.7.2.686 [facility] [id number] [facility] [address] 2022-06-15 2022-06-15 Telephone [facility] 1.2.840.114 1 [id number] Univers 00:00:00 00:00:00 Dionisio MULTISPEC 350.1.13.10 ity of IALTY 4.2.7.2.686 [facility] [id number] [facility] AND [place] [address] [facility] 2022-06-15 2022-06-15 Orders Doctor ROBIN 1.2.840.114 [id number] Univers 00:00:00 00:00:00 Only Unassigned, AISHA 350.1.13.10 ity of [place] [facility] 4.2.7.2.686 Dany [id number] [facility] [address] 2022-05-30 2022-05-30 Outpatient R [facility] [id number] Univers 15:30:00 15:30:00 ity of [facility] 2022-05-04 2022-05-04 Outpatient [facility] [id number]- 202 Seth 14:40:00 14:40:00 99999 F Kristian 2022-05-03 2022-05-03 Outpatient o71q8192- [id number] e3 6y1724-9 00:00:00 00:00:00 Visit 261b-4edf 61b-4edf-8 -8139-75d 139-17v926 4345808zt 9190eb 2022-04-26 2022-04-26 [facility]phone [facility] 1.2.902.993 5853 1467 Univers 00:00:00 00:00:00 Shermeen PRIMARY 350.1.13.10 i [place] [id number] [facility] [address] 2022-04-25 2022-04-25 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 1043 [id number] Univers 14:00:00 15:08:22 [facility] 2022-04-25 2022-04-25 Office Yordy El Team [facility] 1.2.840. 114 [id number] Univers 14:00:00 15:08:22 Visit Lex Ochoa PRIMARY 350.1.13.10 [place] [id number] [address] 2022-03-16 2022-03-16 Outpatient [id number]- [id number] 2008v4-8 00:00:00 00:00:00 Visit 09w6-4633 3k7-7162-8 -60c8-59g 8p2-11y368 2003t14j0 2c67e7 2022-02-27 2022-02-27 Outpatient Issa RUBIO [facility] [id number] Univers 08:00:00 08:00:00 [facility] 2022-02-06 2022-02-06 Outpatient R NINA SALGADO [facility] 10 [id number] Univers 10:30:00 10:30:00 NINA SALGADO i [facility] 2022-02-01 2022-02-01 Outpatient 806r3a49- [id number] 7s2d12-b 00:00:00 00:00:00 Visit fce7-452a ce7-452a-9 -924a-d2a 24a-d6f860 063x0l559 z0w398 2022-01-27 2022-01-27 Outpatient 4739ut85- [id number] 42 02fu43-c 00:00:00 00:00:00 Visit k7c0-908c 9e1-272k-f -os5f-n17 n5m-o79u0h i4l885l61 394e27 2022-01-10 2022-01-10 Outpatient 6f00548c- [id number] 1f 37749r-0 00:00:00 00:00:00 Visit 9o23-9c7h w33-6w8w-v -v08l-sak 06b-baa1f0 7e8wi15l0 fa00b2 2022-01-10 2022-01-10 Orders Doctor ROBIN 1.2.840.114 [id number] [facility] 00:00:00 00:00:00 Only Unassigned, AISHA 350.1.13.10 ity of [place] [facility] 4.2.7.2.686 Dany as [id number] [address] 2022-01-07 2022-01-07 Outpatient q716ga54- [id number] f3 01mg98-3 00:00:00 00:00:00 Visit 2661-44e8 661-44e8-8 -6k60-206 k54-600f65 c84vf517m oj822t 2021-11-30 2021-11-30 Outpatient 9ly2767r- [id number] 6a p3446u-5 00:00:00 00:00:00 Visit 0644-6358 202-4562-8 -9z39-089 o50-954657 5584t8679 8l7757 2021-11-25 2021-11-25 Outpatient suiwa663- [id number] ca lwf492-8 00:00:00 00:00:00 Visit 1694-4ca5 694-4ca5-9 -90t7-448 0w7-1814a5 [id number] 101257 1358-07-26 2021-11-08 Outpatient 31so0c25- [id number] 42 va9n53-1 00:00:00 00:00:00 Visit 0oz2-86i9 ce1-48a3-b -m700-4v3 658-7a18e3 9g1983yro 625efb 2021-06-21 2021-06-21 [facility] [id number] Univers 11:00:00 11:00:00 ILA [facility] 2020-07-12 2020-07-12 Outpatient R LALA [facility] [id number] Univers 09:30:00 09:30:00 ATTENDING [facility] 2020-07-01 2020-07-01 [facility] 1.2.840.114 [id number] Univers 00:00:00 00:00:00 Outreach Kirk PRIMARY 350.1.13.10 i ty of [place] [id number] Me dical [address] 2020-07-01 2020-07-01 Patient Ulises [facility] 1.2.840.114 [id number] 82 00:00:00 00:00:00 Outreach Kirk PRIMARY 350.1.13.10 Jose[place] CARE 4.2.7.2.686 PAVILLION [id number] 388 2020-06-30 2020-06-30 Outpatient R BELLO [facility] [id number] Univers 10:40:00 10:40:00 SREEKANTH [facility] 2020-05-06 2020-05-06 Outpatient R DOROTHEA [facility] [id number] Univers 11:00:00 11:00:00 JUAN CARLOS [facility] 2020-03-09 2020-03-09 Refill [facility] 1.2.840.114 [id number] Univers 00:00:00 00:00:00 Ila M PRIMARY 350.1.13.10 it [place] [id number] Me dical [address] 2020-03-09 2020-03-09 Iam [facility] 1.2.840.114 [id number] 133 00:00:00 00:00:00 [place] M PRIMARY 350.1.13.10 CARE 4.2.7.2.686 PAVILLION [id number] 390 2020-01-27 2020-01-27 Iam [facility] 1.2.840.114 [id number] 652 Univers 00:00:00 00:00:00 Ila M PRIMARY 350.1.13.10 it [place] [id number] [address] 2020-01-27 2020-01-27 [facility] 1.2.840.114 [id number] 652 00:00:00 00:00:00 [place] PRIMARY 350.1.13.10 CARE 4.2.7.2.686 PAVILLION [id number] [facility] 2019-12-28 2019-12-28 Iam [facility] 1.2.840.114 [id number] 350 Univers 00:00:00 00:00:00 Lynda PRIMARY 350.1.13.10 it [place] [id number] [address] 2019-12-28 2019-12-28 Iam [facility] 1.2.840.114 [id number] 350 00:00:00 00:00:00 Lynda PRIMARY 350.1.13.10 CARE 4.2.7.2.686 PAVILLION [id number] [facility] 2019-12-25 2019-12-25 Outpatient R KELLIE [facility] [id number] Univers 13:30:00 13:30:00 STEFANIA renee [facility] 2019-12-24 2019-12-24 Iam [facility] 1.2.840.114 [id number] Univers 00:00:00 00:00:00 Lynda PRIMARY 350.1.13.10 [place] [id number] [address] 2019-12-24 2019-12-24 Refill [facility] 1.2.840.114 [id number] 956 00:00:00 00:00:00 Lynda PRIMARY 350.1.13.10 CARE 4.2.7.2.686 PAVILLION [id number] [facility] 2019-12-18 2019-12-18 Outpatient Issa SALDIVAR, [facility] [id number] Univers 08:30:00 08:30:00 [facility] 2019-12-12 2019-12-12 Refill [facility] 1.2.840.114 [id number] Univers 00:00:00 00:00:00 Juan Carlos J PRIMARY 350.1.13.10 it [place] [id number] [address] 2019-12-12 2019-12-12 Refill [facility] 1.2.840.114 [id number] 078 00:00:00 00:00:00 Juan Carlos J PRIMARY 350.1.13.10 CARE 4.2.7.2.686 PAVILLION [id number] [facility] 2019-12-10 2019-12-10 [facility] [id number] [id number] Univers 11:00:00 11:00:00 [facility] 2019-12-09 2019-12-09 Refill [facility] 1.2.840.114 11541 474 Univers 00:00:00 00:00:00 Juan Carlos J PRIMARY 350.1.13.10 [place] [id number] [address] 2019-12-09 2019-12-09 Refill Chalpatriciab[facility] 1.2.840.114 [id number] 832 Univers 00:00:00 00:00:00 [place] M PRIMARY 350.1.13.10 it [place] [id number] [address] 2019-12-09 2019-12-09 Refill [facility] 1.2.840.114 [id number] 474 00:00:00 00:00:00 Juan Carlos J PRIMARY 350.1.13.10 CARE 4.2.7.2.686 PAVILLION [id number] 388 2019-12-09 2019-12-09 Refcarlitos [facility] 1.2.840.114 [id number] 832 00:00:00 00:00:00 Ila M PRIMARY 350.1.13.10 CARE 4.2.7.2.686 PAVILLION [id number] 390 2019-12-04 2019-12-04 Telephone [facility] 1.2.840.114 776 [id number] Univers 00:00:00 00:00:00 Lynda PRIMARY 350.1.13.10 it [place] [id number] [address] 2019-12-04 2019-12-04 [facility]phone [facility] 1.2.840.114 [id number] 00:00:00 00:00:00 Lynda PRIMARY [id number] CARE 4.2.7.2.686 PAVILLION [id number] [facility] 2019-12-02 2019-12-02 Office [facility] 1.2.840.114 [id number] [facility] 09:06:15 10:45:17 Visit Juan Carlos J PRIMARY 350.1.13.10 it y [place] [id number] [address] 2019-12-02 2019-12-02 [facility] 1.2.840.114 [id number] 09:06:15 10:45:17 Visit Juan Carlos J PRIMARY 350.1.13.10 CARE 4.2.7.2.686 PAVILLION [id number] [facility] 2019-12-02 2019-12-02 Outpatient R DROOTHEA [facility] [id number] Univers 09:30:00 09:30:00 JUAN CARLOS ity of [facility] 2019-12-02 2019-12-02 Telephone Dor[facility]a [facility] 1.2.840.114 [id number] Univers 00:00:00 00:00:00 Juan Carlos J PRIMARY 350.1.13.10 it [place] [id number] [facility] [address] 2019-12-01 2019-12-01 Outpatient R YARIEL, [facility] [id number] Univers 10:00:00 10:00:00 ILA ity [facility] 2019-10-15 2019-10-15 Outpatient R UNKNOWN, [facility] [id number] Univers 13:30:00 13:30:00 ATTENDING ity [facility] 2019-10-09 2019-10-09 [facility]os [facility] 1.2.840.114 [id number] [facility] 00:00:00 00:00:00 Lynda PRIMARY 350.1.13.10 it [place] [id number] [facility] [address] 2019-10-08 2019-10-08 Telephone [facility] 1.2.840.114 [id number] Univers 00:00:00 00:00:00 Lynda PRIMARY 350.1.13.10 it [place] 4[place] [id number] [facility] [address] 2019-10-06 2019-10-06 [facility] 1.2.840.114 [id number] Univers 00:00:00 00:00:00 Ila Pelletier PRIMARY 350.1.13.10 it [place] 4[place] [id number] [facility] [address] 2019-09-30 2019-09-30 Telemedici [facility] 1.2.840.114 [id number] Univers 09:56:40 10:26:40 ne Visit Ila Pelletier PRIMARY 350.1.13.10 i ty of C[place] 4[place] [id number] [facility] [address] 2019-09-30 2019-09-30 Outpatient R YARIEL [facility] [id number] Univers 09:30:00 09:30:00 ILA renee [facility] 2019-09-22 2019-09-22 [facility]os [facility] 1.2.840.114 [id number] [facility] 00:00:00 00:00:00 Lynda PRIMARY 350.1.13.10 it [place] 4[place] [id number] [address] 2019-09-02 2019-09-04 [facility]ici [facility] 1.2.840.114 [id number] Univers 07:24:21 09:05:02 ne Visit Lynda PRIMARY 350.1.13.10 i ty of C[place] 4[place]2.7.2.[place] [id number] [address] 2019-09-04 2019-09-04 Iam [facility] 1.2.840.114 [id number] [facility] 00:00:00 00:00:00 Lynda PRIMARY 350.1.13.10 it y of [place] 4[place]2.7.2.[place] [id number] [address] 2019-09-02 2019-09-02 Outpatient R CARRINGTON [facility] [id number] Univers 11:00:00 11:00:00 LYNDAROSE renee [facility] 2019-09-01 2019-09-01 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 [facility] UNIVERSIT 1.2.840.114 [id number] Univers 08:58:21 09:13:21 Visit Juan Carlos Arango [facility] 350.1.13.10 it[id number] [address] 2019-09-01 2019-09-01 Outpatient R DOROTHEA [facility] [id number] Univers 09:00:00 09:00:00 JUAN CARLOS wylieshelley [facility] 2019-08-24 2019-08-24 [facility]carlitos [facility] 1.2.840.114 [id number] Univers 00:00:00 00:00:00 Lynda PRIMARY 350.1.13.10 [place] [id number] [address] 2019-08-08 2019-08-08 Outpatient R EDIS [facility] [id number] Univers 14:20:00 14:20:00 JV renee [facility] 2019-08-07 2019-08-07 Telephone [facility] 1.2.840.114 [id number] Univers 00:00:00 00:00:00 Lynda PRIMARY 350.1.13.10 [place] [id number] [address] 2019-08-07 2019-08-07 [facility]phone [facility] 1.2.380.171 [id number] Univers 00:00:00 00:00:00 Deepam PRIMARY 350.1.13.10 it [place] [id number] [address] 2019-08-06 2019-08-06 [facility]ill [facility] 1.2.840.114 [id number] Univers 00:00:00 00:00:00 Lynda PRIMARY 350.1.13.10 it [place] [id number] [address] 2019-08-05 2019-08-05 [facility]phone [facility] 1.2.762.278 [id number] Univers 00:00:00 00:00:00 Deepam PRIMARY 350.1.13.10 [place] [id number] [address] 2019-08-01 2019-08-01 Outpatient R NOAH [facility] [id number] Univers 15:10:00 15:10:00 PAULINA renee [facility] 2019-08-01 2019-08-01 Telemedici Addison [facility] 1.2.840. 114 [id number] Univers 13:53:58 14:23:58 ne Visit Paulina Zamora K PRIMARY 350.1.13. 10 it[place] [phone] [address] 2019-08-01 2019-08-01 [facility] 1.2.840.114 [id number] Univers 00:00:00 00:00:00 Lynda PRIMARY 350.1.13.10 it [place] [id number] [address] 2019-08-01 2019-08-01 Telephone [facility] 1.2.840.114 [id number] Univers 00:00:00 00:00:00 Lynda PRIMARY 350.1.13.10 it [place] [id number] [address] 2019-07-28 2019-07-28 [facility] 1.2.840.114 [id number] Univers 00:00:00 00:00:00 Lynda PRIMARY 350.1.13.10 it [place] [id number] [address] 2019-07-21 2019-07-21 [facility] 1.2.840.114 [id number] Univers 00:00:00 00:00:00 Lynda PRIMARY 350.1.13.10 it [place] [id number] [address] 2019-07-18 2019-07-18 [facility] 1.2.840.114 [id number] Univers 00:00:00 00:00:00 Lynda PRIMARY 350.1.13.10 it [place] [id number] [address] 2019-07-17 2019-07-17 [facility] 1.2.840.114 [id number] Univers 00:00:00 00:00:00 Lynda PRIMARY 350.1.13.10 it [place] [id number] [address] 2019-07-16 2019-07-16 [facility] 1.2.840.114 [id number] Univers 00:00:00 00:00:00 Lynda PRIMARY 350.1.13.10 it [place] [id number] [facility] [address] 2019-07-14 2019-07-14 Telephone [facility] 1.2.840.114 [id number] Univers 00:00:00 00:00:00 Lynda PRIMARY 350.1.13.10 it [place] [id number] [address] 2019-07-14 2019-07-14 Refill [facility] 1.2.840.114 [id number] Univers 00:00:00 00:00:00 Lynda PRIMARY 350.1.13.10 it [place] [id number] [address] 2019-07-08 2019-07-08 Telemedici [facility] 1.2.840.114 [id number] Univers 08:06:45 08:36:45 ne Visit Lynda PRIMARY 350.1.13.10 i ty of [place] [id number] [address] 2019-07-08 2019-07-08 Outpatient R [facility] [id number] Univers 08:30:00 08:30:00 LYNDA ity of [facility] 2019-07-06 2019-07-06 Nurse ROBIN Vogel 1.2.840.114 [id number] Univers 00:00:00 00:00:00 Triage Mariangel Elena AISHA 350.1.13.10 i ty of HOSPITAL 4.2.7.2.686 Dany as [id number] [address] 2019-07-06 2019-07-06 Telephone [facility] 1.2.840.114 [id number] Univers 00:00:00 00:00:00 Lynda PRIMARY 350.1.13.10 it [place] [id number] [address] 2019-06-24 2019-06-24 Refill [facility] 1.2.840.114 [id number] Univers 00:00:00 00:00:00 Lynda PRIMARY 350.1.13.10 it [place] [id number] [address] 2019-05-13 2019-05-13 Telephone [facility] 1.2.840.114 [id number] Univers 00:00:00 00:00:00 Lynda PRIMARY 350.1.13.10 it [place] [id number] [address] 2019-05-13 2019-05-13 Telephone [facility] 1.2.254.630 [id number] Univers 00:00:00 00:00:00 Christopher PRIMARY 350.1.13.10 [place] [id number] [facility] [address] 2019-04-04 2019-04-04 [facility] [id number] Univers 14:50:00 15:10:33 BRADEN ity of [facility] 2018-12-30 2018-12-30 Telephone [facility] 1.2.653.740 [id number] Univers 00:00:00 00:00:00 Jasson-Monika PRIMARY 350.1.13.10 ity of [place] [id number] [address] 2018-11-25 2018-11-25 [facility] Arturo Rowley 1.2.840.114 [id number] Univers 06:56:56 23:59:00 Encounter Aparna Mathur [facility] 350.1.13.10 ity [place] [id number] [facility] [address] 2017-09-05 2017-10-23 Outpatient [facility] [id number] [address] 00:00:00 00:00:00 [facility] 2017-10-18 2017-10-18 Outpatient [facility] [id number] [place] 21:09:01 21:09:01 [facility] 2016-04-27 2016-09-27 Outpatient [facility] [id number] [address] 00:00:00 00:00:00 [facility] Results Test Description Test Time Test Comments Results Result Comments Source COMP. METABOLIC PANEL (71958) 2022-07-23 02:32:10 Test Item Value Reference Range Interpretation Comme nts NA (test code = 4002979698) 139 mmol/L 135-145 K (test code = 4118506894) 3.4 mmol/L 3.5-5.0 L CL (test code = 0393073649) 103 mmol/L 98-108 CO2 TOTAL (test code = 7348616729) 28 mmol/L 23-31 AGAP (test code = 9951204240) 8 2-16 BUN (test code = 8149553643) 9 mg/dL 7-23 GLUCOSE (test code = 5141254625) 77 mg/dL 70-110 CREATININE (test code = 0.82 mg/dL 0.50-1.04 4793329739) TOTAL BILI (test code = 0.4 mg/dL 0.1-1.8 3107883295) CALCIUM (test code = 9825994031) 9.0 mg/dL 8.6-10.6 T PROTEIN (test code = 6884996093) 7.3 g/dL 6.3-8.2 ALBUMIN (test code = 1042454394) 4.3 g/dL 3.5-5.0 ALK PHOS (test code = 4540614272) 98 U/L 34-122 ALTv (test code = 1742-6) 20 U/L 5-35 AST(SGOT) (test code = 4674998463) 23 U/L 13-40 eGFR (test code = 2301359059) 75.4 mL/min/1.73m2 JAQUELIN (test code = JAQUELIN) [...] tests). Lab Interpretation (test code = Abnormal 46991-2) General acute hospital WITH [id number] 02:21:48 Test Item Value Reference Range Interpretation Comments WBC (test code = 10.63 See_Comment [Automated 8206-2) message] The sy stem which generated this result transmitted reference range : 4.30 - 11.10 10*3/?L. The reference range was not used to interpret this result as normal/abnormal . RBC (test code = 4.30 See_Comment [Automated 426-8) message] The sy stem which generated this [...] RDW-SD (test code = 47.6 fL 39.0-49.9 98210-1) RDW-CV (test code = 15.1 % 12.0-15.5 788-0) PLT (test code = 341 See_Comment [Automated 777-3) message] The sy stem which generated this result transmitted reference range : 166 - 358 10*3/ ?L. The reference r shahana was not used to interpret this result as normal/abnormal . MPV (test code = 9.8 fL 9.5-12.9 69643-4) NRBC/100 WBC (test 0.0 See_Comment [Automat ed code = 2594351807) message] The system which generated this result transmitted reference range : 0.0 - 10.0 /100 WBCs. The refer ence range was not u sed to interpret th is result as normal/abnormal . NRBC x10^3 (test code See_Comment [Auto mated = 7436937678) message] The s ystem which generated this result transmitted reference range : 10*3/?L. The reference range was not used to interpret this result as normal/abnormal . GRAN MAT (NEUT) % 67.0 % (test code = 770-8) IMM GRAN % (test code 0.30 % = 7130859572) LYMPH % (test code = 24.5 % 736-9) MONO % (test code = 6.9 % 5905-5) EOS % (test code = 0.7 % 713-8) BASO % (test code = 0.6 % 706-2) GRAN MAT x10^3(ANC) 7.14 10*3/uL 1.88-7.09 H (test code = 0370177623) IMM GRAN x10^3 (test 0.03 10*3/uL 0.00-0.06 code = 3211868938) LYMPH x10^3 (test code 2.60 10*3/uL 1.32-3.29 = 731-0) MONO x10^3 (test code 0.73 10*3/uL 0.33-0.92 = 742-7) EOS x10^3 (test code = 0.07 10*3/uL 0.03-0.39 711-2) BASO x10^3 (test code 0.06 10*3/uL 0.01-0.07 = 704-7) Lab Interpretation Abnormal (test code = 64710-9) [facility] [id number] 00:00:00 Test Item Value Reference Range Interpretation Comments GLUCOSE (test code = 2217) 93 MG/DL BUN (test code = 2208) 10 MG/DL CREATININE (test code = 2214) 0.81 MG/DL eGFR AMER. (test code 103 ML/MIN/1.73 = 35135) eGFR NON- AMER. (test 89 ML/MIN/1.73 code = 51153) CALC BUN/CREAT (test code = 12 RATIO [...] code = 2219) 22 U/L COMPREHENSIVE METABOLIC [id number] 00:00:00 Test Item Value Reference Range Interpretation Comments GLUCOSE (test code = 2217) 93 MG/DL BUN (test code = 2208) 10 MG/DL CREATININE (test code = 2214) 0.81 MG/DL eGFR AMER. (test code 103 ML/MIN/1.73 = 63681) eGFR NON- AMER. (test 89 ML/MIN/1.73 code = 86623) CALC BUN/CREAT (test code = 12 RATIO [...] code = 2219) 22 U/L CBC W/AUTO [id number] 00:00:00 Test Item Value Reference Range Interpretation [...] NUCLEATED RBCS (test code = 0.00 K/UL 93546) CBC W/AUTO [id number] 00:00:00 Test Item Value Reference Range Interpretation [...] NUCLEATED RBCS (test code = 0.00 K/UL 85452) CBC W/AUTO [id number] 00:00:00 Test Item Value Reference Range Interpretation [...] NUCLEATED RBCS (test code = 0.00 K/UL 20246) LIPID [id number] 00:00:00 Test Item Value Reference Range Interpretation Comments CHOLESTEROL (test code = 2210) 328 MG/DL TRIGLYCERIDES (test code = 2232) 614 MG/DL HDL CHOLESTEROL (test code = 42 MG/DL 2220) CALC LDL CHOL (test code = 2237) (NOTE) MG/DL RISK RATIO LDL/HDL (test code = (NOTE) RATIO 2238) LIPID [id number] 00:00:00 Test Item Value Reference Range Interpretation Comments CHOLESTEROL (test code = 2210) 328 MG/DL TRIGLYCERIDES (test code = 2232) 614 MG/DL HDL CHOLESTEROL (test code = 42 MG/DL 2220) CALC LDL CHOL (test code = 2237) (NOTE) MG/DL RISK RATIO LDL/HDL (test code = (NOTE) RATIO 2238) [id number] 00:00:00 Test Item Value Reference Range Interpretation Comments TSH, THIRD GENERATION (test code 4.310 UIU/ML = 2821) [id number] 00:00:00 Test Item Value Reference Range Interpretation Comments TSH, THIRD GENERATION (test code 4.310 UIU/ML = 2821) [id number] 00:00:00 Test Item Value Reference Range Interpretation Comments TSH, THIRD GENERATION (test code 4.310 UIU/ML = 2821) HEMOGLOBIN [id number] 00:00:00 Test Item Value Reference Range Interpretation Comments HEMOGLOBIN A1c (test code = 83199) 5.4 % HEMOGLOBIN [id number] 00:00:00 Test Item Value Reference Range Interpretation Comments HEMOGLOBIN A1c (test code = 02379) 5.4 % HEMOGLOBIN [id number] 00:00:00 Test Item Value Reference Range Interpretation Comments HEMOGLOBIN A1c (test code = 24085) 5.4 % [id number] 00:00:00 Test Item Value Reference Range Interpretation Comments LITHIUM (test code = 2038) 0.63 MEQ/L [id number] 00:00:00 Test Item Value Reference Range Interpretation Comments LITHIUM (test code = 2038) 0.63 MEQ/L [id number] 00:00:00 Test Item Value Reference Range Interpretation Comments LITHIUM (test code = 2038) 0.63 MEQ/L COMPREHENSIVE METABOLIC [id number] 00:00:00 Test Item Value Reference Range Interpretation Comments GLUCOSE (test code = 2217) 93 MG/DL BUN (test code = 2208) 10 MG/DL CREATININE (test code = 2214) 0.81 MG/DL eGFR AMER. (test code 103 ML/MIN/1.73 = 48889) eGFR NON- AMER. (test 89 ML/MIN/1.73 code = 10410) CALC BUN/CREAT (test code = 12 RATIO 2234) SODIUM (test code = 2231) 140 MEQ/L [...] code = 2219) 22 U/L COMPREHENSIVE METABOLIC [id number] 00:00:00 Test Item Value Reference Range Interpretation Comments GLUCOSE (test code = 2217) 93 MG/DL BUN (test code = 2208) 10 MG/DL CREATININE (test code = 2214) 0.81 MG/DL eGFR AMER. (test code 103 ML/MIN/1.73 = 80217) eGFR NON- AMER. (test 89 ML/MIN/1.73 code = 50183) CALC BUN/CREAT (test code = 12 RATIO [...] code = 2219) 22 U/L CBC W/AUTO [id number] 00:00:00 Test Item Value Reference Range Interpretation [...] NUCLEATED RBCS (test code = 0.00 K/UL 74359) CBC W/AUTO [id number] 00:00:00 Test Item Value Reference Range Interpretation [...] NUCLEATED RBCS (test code = 0.00 K/UL 90057) CBC W/AUTO [id number] 00:00:00 Test Item Value Reference Range Interpretation [...] NUCLEATED RBCS (test code = 0.00 K/UL 28602) LIPID [id number] 00:00:00 Test Item Value Reference Range Interpretation Comments CHOLESTEROL (test code = 2210) 328 MG/DL TRIGLYCERIDES (test code = 2232) 614 MG/DL HDL CHOLESTEROL (test code = 42 MG/DL 2220) CALC LDL CHOL (test code = 2237) (NOTE) MG/DL RISK RATIO LDL/HDL (test code = (NOTE) RATIO 2238) LIPID [id number] 00:00:00 Test Item Value Reference Range Interpretation Comments CHOLESTEROL (test code = 2210) 328 MG/DL TRIGLYCERIDES (test code = 2232) 614 MG/DL HDL CHOLESTEROL (test code = 42 MG/DL 2220) CALC LDL CHOL (test code = 2237) (NOTE) MG/DL RISK RATIO LDL/HDL (test code = (NOTE) RATIO 2238) [id number] 00:00:00 Test Item Value Reference Range Interpretation Comments TSH, THIRD GENERATION (test code 4.310 UIU/ML = 2821) [id number] 00:00:00 Test Item Value Reference Range Interpretation Comments TSH, THIRD GENERATION (test code 4.310 UIU/ML = 2821) [id number] 00:00:00 Test Item Value Reference Range Interpretation Comments TSH, THIRD GENERATION (test code 4.310 UIU/ML = 2821) HEMOGLOBIN [id number] 00:00:00 Test Item Value Reference Range Interpretation Comments HEMOGLOBIN A1c (test code = 63534) 5.4 % HEMOGLOBIN [id number] 00:00:00 Test Item Value Reference Range Interpretation Comments HEMOGLOBIN A1c (test code = 16720) 5.4 % HEMOGLOBIN [id number] 00:00:00 Test Item Value Reference Range Interpretation Comments HEMOGLOBIN A1c (test code = 60547) 5.4 % [id number] 00:00:00 Test Item Value Reference Range Interpretation Comments LITHIUM (test code = 2039) 0.63 MEQ/L [id number] 00:00:00 Test Item Value Reference Range Interpretation Comments LITHIUM (test code = 2039) 0.63 MEQ/L [id number] 00:00:00 Test Item Value Reference Range Interpretation Comments LITHIUM (test code = 2039) 0.63 MEQ/L COMPREHENSIVE METABOLIC [id number] 00:00:00 Test Item Value Reference Range Interpretation Comments GLUCOSE (test code = 2217) 93 MG/DL BUN (test code = 2208) 10 MG/DL CREATININE (test code = 2214) 0.81 MG/DL eGFR AMER. (test code 103 ML/MIN/1.73 = 01829) eGFR NON- AMER. (test 89 ML/MIN/1.73 code = 18935) CALC BUN/CREAT (test code = 12 RATIO [...] code = 2219) 22 U/L CBC W/AUTO [id number] 00:00:00 Test Item Value Reference Range Interpretation [...] NUCLEATED RBCS (test code = 0.00 K/UL 05333) CBC W/AUTO [id number] 00:00:00 Test Item Value Reference Range Interpretation [...] NUCLEATED RBCS (test code = 0.00 K/UL 70092) LIPID [id number] 00:00:00 Test Item Value Reference Range Interpretation Comments CHOLESTEROL (test code = 2210) 328 MG/DL TRIGLYCERIDES (test code = 2232) 614 MG/DL HDL CHOLESTEROL (test code = 42 MG/DL 2220) CALC LDL CHOL (test code = 2237) (NOTE) MG/DL RISK RATIO LDL/HDL (test code = (NOTE) RATIO 2238) [id number] 00:00:00 Test Item Value Reference Range Interpretation Comments TSH, THIRD GENERATION (test code 4.310 UIU/ML = 2821) [id number] 00:00:00 Test Item Value Reference Range Interpretation Comments TSH, THIRD GENERATION (test code 4.310 UIU/ML = 2821) HEMOGLOBIN [id number] 00:00:00 Test Item Value Reference Range Interpretation Comments HEMOGLOBIN A1c (test code = 07305) 5.4 % HEMOGLOBIN [id number] 00:00:00 Test Item Value Reference Range Interpretation Comments HEMOGLOBIN A1c (test code = 98591) 5.4 % [id number] 00:00:00 Test Item Value Reference Range Interpretation Comments LITHIUM (test code = 2039) 0.63 MEQ/L [id number] 00:00:00 Test Item Value Reference Range Interpretation Comments LITHIUM (test code = 2039) 0.63 MEQ/L COMPREHENSIVE METABOLIC [id number] 00:00:00 Test Item Value Reference Range Interpretation Comments GLUCOSE (test code = 2217) 93 MG/DL BUN (test code = 2208) 10 MG/DL CREATININE (test code = 2214) 0.81 MG/DL eGFR AMER. (test code 103 ML/MIN/1.73 = 45404) eGFR NON- AMER. (test 89 ML/MIN/1.73 code = 29631) CALC BUN/CREAT (test code = 12 RATIO [...] code = 2219) 22 U/L COMPREHENSIVE METABOLIC [id number] 00:00:00 Test Item Value Reference Range Interpretation Comments GLUCOSE (test code = 2217) 93 MG/DL BUN (test code = 2208) 10 MG/DL CREATININE (test code = 2214) 0.81 MG/DL eGFR AMER. (test code 103 ML/MIN/1.73 = 15982) eGFR NON- AMER. (test 89 ML/MIN/1.73 code = 53900) CALC BUN/CREAT (test code = 12 RATIO [...] code = 2219) 22 U/L CBC W/AUTO [id number] 00:00:00 Test Item Value Reference Range Interpretation [...] NUCLEATED RBCS (test code = 0.00 K/UL 68322) CBC W/AUTO [id number] 00:00:00 Test Item Value Reference Range Interpretation [...] NUCLEATED RBCS (test code = 0.00 K/UL 83666) CBC W/AUTO [id number] 00:00:00 Test Item Value Reference Range Interpretation [...] NUCLEATED RBCS (test code = 0.00 K/UL 09151) LIPID [id number] 00:00:00 Test Item Value Reference Range Interpretation Comments CHOLESTEROL (test code = 2210) 328 MG/DL TRIGLYCERIDES (test code = 2232) 614 MG/DL HDL CHOLESTEROL (test code = 42 MG/DL 2220) CALC LDL CHOL (test code = 2237) (NOTE) MG/DL RISK RATIO LDL/HDL (test code = (NOTE) RATIO 2238) LIPID [id number] 00:00:00 Test Item Value Reference Range Interpretation Comments CHOLESTEROL (test code = 2210) 328 MG/DL TRIGLYCERIDES (test code = 2232) 614 MG/DL HDL CHOLESTEROL (test code = 42 MG/DL 2220) CALC LDL CHOL (test code = 2237) (NOTE) MG/DL RISK RATIO LDL/HDL (test code = (NOTE) RATIO 2238) [id number] 00:00:00 Test Item Value Reference Range Interpretation Comments TSH, THIRD GENERATION (test code 4.310 UIU/ML = 2821) [id number] 00:00:00 Test Item Value Reference Range Interpretation Comments TSH, THIRD GENERATION (test code 4.310 UIU/ML = 2821) [id number] 00:00:00 Test Item Value Reference Range Interpretation Comments TSH, THIRD GENERATION (test code 4.310 UIU/ML = 2821) HEMOGLOBIN [id number] 00:00:00 Test Item Value Reference Range Interpretation Comments HEMOGLOBIN A1c (test code = 21960) 5.4 % HEMOGLOBIN [id number] 00:00:00 Test Item Value Reference Range Interpretation Comments HEMOGLOBIN A1c (test code = 46792) 5.4 % HEMOGLOBIN [id number] 00:00:00 Test Item Value Reference Range Interpretation Comments HEMOGLOBIN A1c (test code = 89547) 5.4 % [id number] 00:00:00 Test Item Value Reference Range Interpretation Comments LITHIUM (test code = 2039) 0.63 MEQ/L [id number] 00:00:00 Test Item Value Reference Range Interpretation Comments LITHIUM (test code = 203) 0.63 MEQ/L [id number] 00:00:00 Test Item Value Reference Range Interpretation Comments LITHIUM (test code = 203) 0.63 MEQ/L COMPREHENSIVE METABOLIC [id number] 00:00:00 Test Item Value Reference Range Interpretation Comments GLUCOSE (test code = 2217) 93 MG/DL BUN (test code = 2208) 10 MG/DL CREATININE (test code = 2214) 0.81 MG/DL eGFR AMER. (test code 103 ML/MIN/1.73 = 84126) eGFR NON- AMER. (test 89 ML/MIN/1.73 code = 44999) CALC BUN/CREAT (test code = 12 RATIO [...] code = 2219) 22 U/L COMPREHENSIVE METABOLIC [id number] 00:00:00 Test Item Value Reference Range Interpretation Comments GLUCOSE (test code = 2217) 93 MG/DL BUN (test code = 2208) 10 MG/DL CREATININE (test code = 2214) 0.81 MG/DL eGFR AMER. (test code 103 ML/MIN/1.73 = 99302) eGFR NON- AMER. (test 89 ML/MIN/1.73 code = 26571) CALC BUN/CREAT (test code = 12 RATIO 2235) SODIUM (test code = 2231) 140 MEQ/L POTASSIUM (test code = 2228) 4.5 MEQ/L CHLORIDE (test code = 2215) 101 MEQ/L CARBON DIOXIDE (test code = 27 MEQ/L 2205) CALCIUM (test code = 2209) 10.4 MG/DL PROTEIN, TOTAL (test code = 7.9 G/DL 9) ALBUMIN (test code = 2201) 5.0 G/DL CALC GLOBULIN (test code = 2.9 G/DL 2240) CALC A/G RATIO (test code = 1.7 RATIO 4) BILIRUBIN, TOTAL (test code = <0.2 MG/DL 2206) ALKALINE PHOSPHATASE (test 104 U/L code = 2204) AST (test code = 2218) 24 U/L ALT (test code = 2219) 22 U/L CBC W/AUTO [id number] 00:00:00 Test Item Value Reference Range Interpretation [...] NUCLEATED RBCS (test code = 0.00 K/UL 52802) CBC W/AUTO [id number] 00:00:00 Test Item Value Reference Range Interpretation [...] NUCLEATED RBCS (test code = 0.00 K/UL 46288) CBC W/AUTO [id number] 00:00:00 Test Item Value Reference Range Interpretation [...] NUCLEATED RBCS (test code = 0.00 K/UL 68099) LIPID [id number] 00:00:00 Test Item Value Reference Range Interpretation Comments CHOLESTEROL (test code = 2210) 328 MG/DL TRIGLYCERIDES (test code = 2232) 614 MG/DL HDL CHOLESTEROL (test code = 42 MG/DL 2220) CALC LDL CHOL (test code = 2237) (NOTE) MG/DL RISK RATIO LDL/HDL (test code = (NOTE) RATIO 2238) LIPID [id number] 00:00:00 Test Item Value Reference Range Interpretation Comments CHOLESTEROL (test code = 2210) 328 MG/DL TRIGLYCERIDES (test code = 2232) 614 MG/DL HDL CHOLESTEROL (test code = 42 MG/DL 2220) CALC LDL CHOL (test code = 2237) (NOTE) MG/DL RISK RATIO LDL/HDL (test code = (NOTE) RATIO 2238) [id number] 00:00:00 Test Item Value Reference Range Interpretation Comments TSH, THIRD GENERATION (test code 4.310 UIU/ML = 2821) [id number] 00:00:00 Test Item Value Reference Range Interpretation Comments TSH, THIRD GENERATION (test code 4.310 UIU/ML = 2821) [id number] 00:00:00 Test Item Value Reference Range Interpretation Comments TSH, THIRD GENERATION (test code 4.310 UIU/ML = 2821) HEMOGLOBIN [id number] 00:00:00 Test Item Value Reference Range Interpretation Comments HEMOGLOBIN A1c (test code = 71968) 5.4 % HEMOGLOBIN [id number] 00:00:00 Test Item Value Reference Range Interpretation Comments HEMOGLOBIN A1c (test code = 19312) 5.4 % HEMOGLOBIN [id number] 00:00:00 Test Item Value Reference Range Interpretation Comments HEMOGLOBIN A1c (test code = 31219) 5.4 % [id number] 00:00:00 Test Item Value Reference Range Interpretation Comments LITHIUM (test code = 203) 0.63 MEQ/L [id number] 00:00:00 Test Item Value Reference Range Interpretation Comments LITHIUM (test code = 203) 0.63 MEQ/L [id number] 00:00:00 Test Item Value Reference Range Interpretation Comments LITHIUM (test code = 2039) 0.63 MEQ/L COMPREHENSIVE METABOLIC [id number] 00:00:00 Test Item Value Reference Range Interpretation Comments GLUCOSE (test code = 2217) 93 MG/DL BUN (test code = 2208) 10 MG/DL CREATININE (test code = 2214) 0.81 MG/DL eGFR AMER. (test code 103 ML/MIN/1.73 = 81152) eGFR NON- AMER. (test 89 ML/MIN/1.73 code = 41322) CALC BUN/CREAT (test code = 12 RATIO [...] code = 2219) 22 U/L COMPREHENSIVE METABOLIC [id number] 00:00:00 Test Item Value Reference Range Interpretation Comments GLUCOSE (test code = 2217) 93 MG/DL BUN (test code = 2208) 10 MG/DL CREATININE (test code = 2214) 0.81 MG/DL eGFR AMER. (test code 103 ML/MIN/1.73 = 40415) eGFR NON- AMER. (test 89 ML/MIN/1.73 code = 89048) CALC BUN/CREAT (test code = 12 RATIO [...] CALC GLOBULIN (test code = 2.9 G/DL 224) CALC A/G RATIO (test code = 1.7 RATIO 2233) BILIRUBIN, TOTAL (test code = <0.2 MG/DL 2206) ALKALINE PHOSPHATASE (test 104 U/L code = 2204) AST (test code = 2218) 24 U/L ALT (test code = 2219) 22 U/L CBC W/AUTO [id number] 00:00:00 Test Item Value Reference Range Interpretation [...] NUCLEATED RBCS (test code = 0.00 K/UL 87865) CBC W/AUTO [id number] 00:00:00 Test Item Value Reference Range Interpretation [...] NUCLEATED RBCS (test code = 0.00 K/UL 18860) CBC W/AUTO [id number] 00:00:00 Test Item Value Reference Range Interpretation [...] NUCLEATED RBCS (test code = 0.00 K/UL 11657) LIPID [id number] 00:00:00 Test Item Value Reference Range Interpretation Comments CHOLESTEROL (test code = 2210) 328 MG/DL TRIGLYCERIDES (test code = 2232) 614 MG/DL HDL CHOLESTEROL (test code = 42 MG/DL 2220) CALC LDL CHOL (test code = 2237) (NOTE) MG/DL RISK RATIO LDL/HDL (test code = (NOTE) RATIO 2238) LIPID [id number] 00:00:00 Test Item Value Reference Range Interpretation Comments CHOLESTEROL (test code = 2210) 328 MG/DL TRIGLYCERIDES (test code = 2232) 614 MG/DL HDL CHOLESTEROL (test code = 42 MG/DL 2220) CALC LDL CHOL (test code = 2237) (NOTE) MG/DL RISK RATIO LDL/HDL (test code = (NOTE) RATIO 2238) [id number] 00:00:00 Test Item Value Reference Range Interpretation Comments TSH, THIRD GENERATION (test code 4.310 UIU/ML = 2821) [id number] 00:00:00 Test Item Value Reference Range Interpretation Comments TSH, THIRD GENERATION (test code 4.310 UIU/ML = 2821) [id number] 00:00:00 Test Item Value Reference Range Interpretation Comments TSH, THIRD GENERATION (test code 4.310 UIU/ML = 2821) HEMOGLOBIN [id number] 00:00:00 Test Item Value Reference Range Interpretation Comments HEMOGLOBIN A1c (test code = 41817) 5.4 % HEMOGLOBIN [id number] 00:00:00 Test Item Value Reference Range Interpretation Comments HEMOGLOBIN A1c (test code = 03260) 5.4 % HEMOGLOBIN [id number] 00:00:00 Test Item Value Reference Range Interpretation Comments HEMOGLOBIN A1c (test code = 50749) 5.4 % [id number] 00:00:00 Test Item Value Reference Range Interpretation Comments LITHIUM (test code = 2039) 0.63 MEQ/L [id number] 00:00:00 Test Item Value Reference Range Interpretation Comments LITHIUM (test code = 2039) 0.63 MEQ/L [id number] 00:00:00 Test Item Value Reference Range Interpretation Comments LITHIUM (test code = 2039) 0.63 MEQ/L COMPREHENSIVE METABOLIC [id number] 00:00:00 Test Item Value Reference Range Interpretation Comments GLUCOSE (test code = 2217) 93 MG/DL BUN (test code = 2208) 10 MG/DL CREATININE (test code = 2214) 0.81 MG/DL eGFR AMER. (test code 103 ML/MIN/1.73 = 30646) eGFR NON- AMER. (test 89 ML/MIN/1.73 code = 79172) CALC BUN/CREAT (test code = 12 RATIO [...] code = 2219) 22 U/L COMPREHENSIVE METABOLIC [id number] 00:00:00 Test Item Value Reference Range Interpretation Comments GLUCOSE (test code = 2217) 93 MG/DL BUN (test code = 2208) 10 MG/DL CREATININE (test code = 2214) 0.81 MG/DL eGFR AMER. (test code 103 ML/MIN/1.73 = 92958) eGFR NON- AMER. (test 89 ML/MIN/1.73 code = 07998) CALC BUN/CREAT (test code = 12 RATIO [...] code = 2219) 22 U/L CBC W/AUTO [id number] 00:00:00 Test Item Value Reference Range Interpretation [...] NUCLEATED RBCS (test code = 0.00 K/UL 63312) CBC W/AUTO [id number] 00:00:00 Test Item Value Reference Range Interpretation [...] NUCLEATED RBCS (test code = 0.00 K/UL 19862) CBC W/AUTO [id number] 00:00:00 Test Item Value Reference Range Interpretation [...] NUCLEATED RBCS (test code = 0.00 K/UL 37151) LIPID [id number] 00:00:00 Test Item Value Reference Range Interpretation Comments CHOLESTEROL (test code = 2210) 328 MG/DL TRIGLYCERIDES (test code = 2232) 614 MG/DL HDL CHOLESTEROL (test code = 42 MG/DL 2220) CALC LDL CHOL (test code = 2237) (NOTE) MG/DL RISK RATIO LDL/HDL (test code = (NOTE) RATIO 2238) LIPID [id number] 00:00:00 Test Item Value Reference Range Interpretation Comments CHOLESTEROL (test code = 2210) 328 MG/DL TRIGLYCERIDES (test code = 2232) 614 MG/DL HDL CHOLESTEROL (test code = 42 MG/DL 2220) CALC LDL CHOL (test code = 2237) (NOTE) MG/DL RISK RATIO LDL/HDL (test code = (NOTE) RATIO 2238) [id number] 00:00:00 Test Item Value Reference Range Interpretation Comments TSH, THIRD GENERATION (test code 4.310 UIU/ML = 2821) [id number] 00:00:00 Test Item Value Reference Range Interpretation Comments TSH, THIRD GENERATION (test code 4.310 UIU/ML = 2821) [id number] 00:00:00 Test Item Value Reference Range Interpretation Comments TSH, THIRD GENERATION (test code 4.310 UIU/ML = 2821) HEMOGLOBIN [id number] 00:00:00 Test Item Value Reference Range Interpretation Comments HEMOGLOBIN A1c (test code = 43263) 5.4 % HEMOGLOBIN [id number] 00:00:00 Test Item Value Reference Range Interpretation Comments HEMOGLOBIN A1c (test code = 40098) 5.4 % HEMOGLOBIN [id number] 00:00:00 Test Item Value Reference Range Interpretation Comments HEMOGLOBIN A1c (test code = 13474) 5.4 % [id number] 00:00:00 Test Item Value Reference Range Interpretation Comments LITHIUM (test code = 2039) 0.63 MEQ/L [id number] 00:00:00 Test Item Value Reference Range Interpretation Comments LITHIUM (test code = 2039) 0.63 MEQ/L [id number] 00:00:00 Test Item Value Reference Range Interpretation Comments LITHIUM (test code = 2039) 0.63 MEQ/L COMPREHENSIVE METABOLIC [id number] 00:00:00 Test Item Value Reference Range Interpretation Comments GLUCOSE (test code = 2217) 93 MG/DL BUN (test code = 2208) 10 MG/DL CREATININE (test code = 2214) 0.81 MG/DL eGFR AMER. (test code 103 ML/MIN/1.73 = 23569) eGFR NON- AMER. (test 89 ML/MIN/1.73 code = 80061) CALC BUN/CREAT (test code = 12 RATIO [...] code = 2219) 22 U/L COMPREHENSIVE METABOLIC [id number] 00:00:00 Test Item Value Reference Range Interpretation Comments GLUCOSE (test code = 2217) 93 MG/DL BUN (test code = 2208) 10 MG/DL CREATININE (test code = 2214) 0.81 MG/DL eGFR AMER. (test code 103 ML/MIN/1.73 = 17566) eGFR NON- AMER. (test 89 ML/MIN/1.73 code = 11980) CALC BUN/CREAT (test code = 12 RATIO [...] code = 2219) 22 U/L CBC W/AUTO [id number] 00:00:00 Test Item Value Reference Range Interpretation [...] NUCLEATED RBCS (test code = 0.00 K/UL 59970) CBC W/AUTO [id number] 00:00:00 Test Item Value Reference Range Interpretation [...] NUCLEATED RBCS (test code = 0.00 K/UL 82918) CBC W/AUTO [id number] 00:00:00 Test Item Value Reference Range Interpretation [...] NUCLEATED RBCS (test code = 0.00 K/UL 10214) LIPID [id number] 00:00:00 Test Item Value Reference Range Interpretation Comments CHOLESTEROL (test code = 2210) 328 MG/DL TRIGLYCERIDES (test code = 2232) 614 MG/DL HDL CHOLESTEROL (test code = 42 MG/DL 2220) CALC LDL CHOL (test code = 2237) (NOTE) MG/DL RISK RATIO LDL/HDL (test code = (NOTE) RATIO 2238) LIPID [id number] 00:00:00 Test Item Value Reference Range Interpretation Comments CHOLESTEROL (test code = 2210) 328 MG/DL TRIGLYCERIDES (test code = 2232) 614 MG/DL HDL CHOLESTEROL (test code = 42 MG/DL 2220) CALC LDL CHOL (test code = 2237) (NOTE) MG/DL RISK RATIO LDL/HDL (test code = (NOTE) RATIO 2238) [id number] 00:00:00 Test Item Value Reference Range Interpretation Comments TSH, THIRD GENERATION (test code 4.310 UIU/ML = 2821) [id number] 00:00:00 Test Item Value Reference Range Interpretation Comments TSH, THIRD GENERATION (test code 4.310 UIU/ML = 2821) [id number] 00:00:00 Test Item Value Reference Range Interpretation Comments TSH, THIRD GENERATION (test code 4.310 UIU/ML = 2821) HEMOGLOBIN [id number] 00:00:00 Test Item Value Reference Range Interpretation Comments HEMOGLOBIN A1c (test code = 36203) 5.4 % HEMOGLOBIN [id number] 00:00:00 Test Item Value Reference Range Interpretation Comments HEMOGLOBIN A1c (test code = 03589) 5.4 % HEMOGLOBIN [id number] 00:00:00 Test Item Value Reference Range Interpretation Comments HEMOGLOBIN A1c (test code = 01506) 5.4 % [id number] 00:00:00 Test Item Value Reference Range Interpretation Comments LITHIUM (test code = 2039) 0.63 MEQ/L [id number] 00:00:00 Test Item Value Reference Range Interpretation Comments LITHIUM (test code = 2039) 0.63 MEQ/L [id number] 00:00:00 Test Item Value Reference Range Interpretation Comments LITHIUM (test code = 2039) 0.63 MEQ/L COMPREHENSIVE METABOLIC [id number] 00:00:00 Test Item Value Reference Range Interpretation Comments GLUCOSE (test code = 2217) 93 MG/DL BUN (test code = 2208) 10 MG/DL CREATININE (test code = 2214) 0.81 MG/DL eGFR AMER. (test code 103 ML/MIN/1.73 = 41361) eGFR NON- AMER. (test 89 ML/MIN/1.73 code = 54258) CALC BUN/CREAT (test code = 12 RATIO [...] ALKALINE PHOSPHATASE (test 104 U/L code = 220) AST (test code = 2218) 24 U/L ALT (test code = 2219) 22 U/L COMPREHENSIVE METABOLIC [id number] 00:00:00 Test Item Value Reference Range Interpretation Comments GLUCOSE (test code = 2217) 93 MG/DL BUN (test code = 2208) 10 MG/DL CREATININE (test code = 2214) 0.81 MG/DL eGFR AMER. (test code 103 ML/MIN/1.73 = 10671) eGFR NON- AMER. (test 89 ML/MIN/1.73 code = 16413) CALC BUN/CREAT (test code = 12 RATIO [...] code = 2219) 22 U/L CBC W/AUTO [id number] 00:00:00 Test Item Value Reference Range Interpretation [...] NUCLEATED RBCS (test code = 0.00 K/UL 59721) CBC W/AUTO [id number] 00:00:00 Test Item Value Reference Range Interpretation [...] NUCLEATED RBCS (test code = 0.00 K/UL 13420) CBC W/AUTO [id number] 00:00:00 Test Item Value Reference Range Interpretation [...] NUCLEATED RBCS (test code = 0.00 K/UL 69785) LIPID [id number] 00:00:00 Test Item Value Reference Range Interpretation Comments CHOLESTEROL (test code = 2210) 328 MG/DL TRIGLYCERIDES (test code = 2232) 614 MG/DL HDL CHOLESTEROL (test code = 42 MG/DL 2220) CALC LDL CHOL (test code = 2237) (NOTE) MG/DL RISK RATIO LDL/HDL (test code = (NOTE) RATIO 2238) LIPID [id number] 00:00:00 Test Item Value Reference Range Interpretation Comments CHOLESTEROL (test code = 2210) 328 MG/DL TRIGLYCERIDES (test code = 2232) 614 MG/DL HDL CHOLESTEROL (test code = 42 MG/DL 2220) CALC LDL CHOL (test code = 2237) (NOTE) MG/DL RISK RATIO LDL/HDL (test code = (NOTE) RATIO 2238) [id number] 00:00:00 Test Item Value Reference Range Interpretation Comments TSH, THIRD GENERATION (test code 4.310 UIU/ML = 2821) [id number] 00:00:00 Test Item Value Reference Range Interpretation Comments TSH, THIRD GENERATION (test code 4.310 UIU/ML = 2821) [id number] 00:00:00 Test Item Value Reference Range Interpretation Comments TSH, THIRD GENERATION (test code 4.310 UIU/ML = 2821) HEMOGLOBIN [id number] 00:00:00 Test Item Value Reference Range Interpretation Comments HEMOGLOBIN A1c (test code = 04944) 5.4 % HEMOGLOBIN [id number] 00:00:00 Test Item Value Reference Range Interpretation Comments HEMOGLOBIN A1c (test code = 75274) 5.4 % HEMOGLOBIN [id number] 00:00:00 Test Item Value Reference Range Interpretation Comments HEMOGLOBIN A1c (test code = 77522) 5.4 % [id number] 00:00:00 Test Item Value Reference Range Interpretation Comments LITHIUM (test code = 2039) 0.63 MEQ/L [id number] 00:00:00 Test Item Value Reference Range Interpretation Comments LITHIUM (test code = 2039) 0.63 MEQ/L [id number] 00:00:00 Test Item Value Reference Range Interpretation Comments LITHIUM (test code = 2039) 0.63 MEQ/L"
[2022-09-11] MEDS ORDERED: FENTANYL CITR 100 MCG/2 ML ONE ×2 (14:34→16:02)
[2022-09-11] MEDS ORDERED: ONDANSETRON 4 MG/2 ML VIAL ONE (14:34)
[2022-09-11 14:50] LABS: Absolute Lymphocytes (CBC) 3.2 K/uL (0.7-4.9); Hematocrit 31.7 % (36.0-45.0); Lymphocytes % 23.3 % (15.3-44.8); MCV 87.1 fL (80-100); MPV 8.3 fL (7.6-11.3); RBC Red Blood Cell Count 3.64 M/uL (3.86-4.86)
[2022-09-11 15:01] LABS: Potassium 3.4 mEq/L (3.5-5.1)
--- NOTE | 2022-09-11 15:07 | RAD REPORT ---
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 The femoral hea d remains located. No new fractures are identified.
--- NOTE | 2022-09-11 15:28 | RAD REPORT ---
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 No acute fractures identified. 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 No acute fracture.
[2022-09-11] MEDS ORDERED: MEPERIDINE HCL 25 MG/ML SYR ONE (17:33)
--- NOTE | 2022-09-11 17:33 | EDPHYS ---
Physician Documentation [facility] Name: Rody Doan Age: 46 yrs Sex: Female : 1975 Arrival Date: 09/11/2022 Time: 14:07 Bed 9 Private MD: ED Physician Nic Bates HPI: 09/11 14:31 This 46 yrs old Female presents to ER via EMS with unknown complaint. jr8 15:05 The patient or guardian reports decreased range of motion, pain. that occurred at home, jr8 There is no obvious deformity, The patient is not able to ambulate. Patient is not able to bear weight. The complaints affect the right hip. Onset: The symptoms/episode began/occurred acutely, today. Modifying factors: The symptoms are alleviated by nothing, the symptoms are aggravated by any movement. Associated signs and symptoms: Pertinent positives: None. Severity of symptoms: At their worst the symptoms were moderate, in the emergency department the symptoms are unchanged. The patient has not experienced similar symptoms in the past. The patient has not recently seen a physician. Patient stated that she was walking and felt a pop in her hip. Since then has not been able to mobilize or bear weight to the hip. Patient stated that she has been having problems with that hip for some time and recently found that she had a chronic hip fracture present with degenerative changes. Spoke with orthopedics and was told that she needs a total hip replacement which has not happened as of yet.. 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 - Social history:: Smoking status: Patient reports the use of cigarette tobacco products, smokes one-half pack cigarettes per day. ROS: 15:05 Eyes: Negative for injury, pain, redness, and discharge, ENT: Negative for injury, jr8 pain, and discharge, Neck: Negative for injury, pain, and swelling, Cardiovascular: Negative for chest pain, palpitations, and edema, Respiratory: Negative for shortness of breath, cough, wheezing, and pleuritic chest pain, Abdomen/GI: Negative for abdominal pain, nausea, vomiting, diarrhea, and constipation, Back: Negative for injury and pain, Skin: Negative for injury, rash, and discoloration, Neuro: Negative for headache, weakness, numbness, tingling, and seizure. 15:05 MS/extremity: Positive for decreased range of motion, pain, tenderness, of the right hip. Exam: 16:13 Cardiovascular: Regular rate and rhythm with a normal S1 and S2. No gallops, murmurs, jr8 or rubs. Normal PMI, no JVD. No pulse deficits. Respiratory: Lungs have equal breath sounds bilaterally, clear to auscultation and percussion. No rales, rhonchi or wheezes noted. No increased work of breathing, no retractions or nasal flaring. Abdomen/GI: Soft, non-tender, with normal bowel sounds. No distension or tympany. No guarding or rebound. No evidence of tenderness throughout. Back: No spinal tenderness. No costovertebral tenderness. Full range of motion. Skin: Warm, dry with normal turgor. Normal color with no rashes, no lesions, and no evidence of cellulitis. Neuro: Awake and alert, GCS 15, oriented to person, place, time, and situation. Motor strength 5/5 in all extremities. Sensory grossly intact. 16:13 Constitutional: The patient appears alert, awake, in obvious pain. 16:13 Musculoskeletal/extremity: Extremities: grossly normal except: noted in the right leg: decreased ROM, pain, tenderness, To right inguinal region , ROM: limited passive range of motion, in the right leg, limited active range of motion due to pain, in the right leg, limited passive range of motion due to pain, in the right leg, Circulation is intact in all extremities. Sensation intact. Vital Signs: 14:19 BP 97 / 57; Pulse 79; Resp 19; Temp 98.8; Pulse Ox 99% ; Weight 71.67 kg; Height 5 ft. ap3 4 in. ; Pain 10/10; 14:51 BP 128 / 87; ap3 15:09 BP 111 / 68; ap3 14:19 Body Mass Index 27.12 (71.67 kg, 162.56 cm) ap3 14:19 Pain Scale: Adult ap3 MDM: 14:12 Patient medically screened. jr8 16:13 Data reviewed: vital signs, nurses notes, lab test result(s), radiologic studies, CT jr8 scan, plain films. Consideration of Admission/Observation Escalation of care including admission/observation considered. I considered the following discharge prescriptions or medication management in the emergency department Medications were administered in the Emergency Department. See MAR. Care significantly affected by the following chronic conditions: Hypertension, Obesity. Counseling: I had a detailed discussion with the patient and/or guardian regarding: the historical points, exam findings, and any diagnostic results supporting the discharge/admit diagnosis, lab results, radiology results. 17:23 ED course: Talked with Dr. Garnica at [facility] about patient condition. jr8 Patient has 2 options at this point. If she can get her pain pain controlled enough here we can let her go home as long as she can still semiweight-bear and transfer enough at home and wait for surgery down here. Second option is to go see them which is fine as well. Discussed this with patient and is agreeable to controlling pain here and seeing if she can continue to have surgery down here instead of going to [place].. 17:32 ED course: Patient's pain has improved. Able to transfer from wheelchair to bathroom jr8 and back. While in bed able to bend hip. Hemodynamically stable and safe to go home to try and manage with her oxycodones at home and follow-up with Dr. Woodward. Knows that if she gets worse to come back. Patient is good with plan at this time. 09/11 14:13 Order name: CBC with Diff; Complete Time: 15: jr8 09/11 14:13 Order name: Basic Metabolic Panel; Complete Time: 15: jr8 09/11 14:13 Order name: Hip Right 2 View XRAY; Complete Time: : jr8 09/11 15:06 Order name: Hip Right Wo Con; Complete Time: 15: EDMS 09/11 14:13 Order name: IV Saline Lock; Complete Time: 14:36 jr8 Administered Medications: 14:36 Drug: fentaNYL (PF) IVP 75 mcg Route: IVP; Site: right antecubital; ap3 15:09 Follow up: Response: No adverse reaction; Pain is decreased ap3 14:36 Drug: Ondansetron IVP 4 mg Route: IVP; Site: right antecubital; ap3 15:09 Follow up: Response: No adverse reaction ap3 16:00 Drug: fentaNYL (PF) IVP 75 mcg Route: IVP; Site: right antecubital; ap3 17:31 Follow up: Response: No adverse reaction; Pain is decreased; RASS: Alert and Calm (0) ll1 17:30 Drug: Meperidine IVP 50 mg {Note: Pain 10/10, RASS 0.} Route: IVP; Site: right ll1 antecubital; 18:00 Follow up: Response: No adverse reaction; Pain is decreased jl7 Disposition: 09/12 07:14 Co-signature as Attending Physician, Nic Bates MD I reviewed the patient's care rn provided by the Advanced Practice Provider and agree with the diagnosis and treatment plan. Disposition Summary: 09/11/22 17:32 Discharge Ordered Location: [facility] Problem: new jr8 Symptoms: have improved jr8 Condition: Stable jr8 Diagnosis - Chronic Right hip fracture jr8 Followup: jr8 - With: Jose Woodward MD - When: 5 - 6 days - Reason: Recheck today's complaints, Continuance of care, Re-evaluation by your physician Discharge Instructions: - Discharge Summary Sheet jr8 - Hip Fracture jr8 Forms: - Medication Reconciliation Form jr8 - Thank You Letter jr8 - Antibiotic Education jr8 - Prescription Opioid Use jr8 Signatures: Dispatcher [employer] EDNic Lara MD MD rn Roszak, Josh, PA PA jr8 Keila Dow RN RN ap3 Marco Maier RN RN ll1 Kasandra Epperson RN jl7
--- NOTE | 2022-09-11 17:33 | ER ---
Nurse's Notes [facility] Name: Rody Doan Age: 46 yrs Sex: Female : 1975 Arrival Date: 09/11/2022 Time: 14:07 Bed 9 Private MD: Diagnosis: Chronic Right hip fracture Presentation: 09/11 14:19 Chief complaint: Patient states: she stood up this morning and felt/heard a "pop" in ap3 her right hip, and now has pain rated 10/10 on the pain scale. Coronavirus screen: At this time, the client does not indicate any symptoms associated with coronavirus-19. Ebola Screen: No symptoms or risks identified at this time. Initial Sepsis Screen: Does the patient meet any 2 criteria? No. Patient's initial sepsis screen is negative. Does the patient have a suspected source of infection? No. Patient's initial sepsis screen is negative. Risk Assessment: Do you want to hurt yourself or someone else? Patient reports no desire to harm self or others. Onset of symptoms was September 11, 2022. 14:19 Method Of Arrival: EMS: [facility] ap3 14:19 Acuity: MEGHA 3 ap3 Triage Assessment: 14:21 General: Appears uncomfortable, Behavior is restless. Pain: Complains of pain in right ap3 hip. Neuro: Level of Consciousness is awake, alert, obeys commands, Oriented to person, place, time, situation. Cardiovascular: Patient's skin is warm and dry. Pulses are palpable in right dorsalis pedis artery and left dorsalis pedis artery. Respiratory: Airway is patent Respiratory effort is even, unlabored. 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 - Social history:: Smoking status: Patient reports the use of cigarette tobacco products, smokes one-half pack cigarettes per day. Screenin:22 Abuse screen: Denies threats or abuse. Nutritional screening: No deficits noted. ap3 Tuberculosis screening: No symptoms or risk factors identified. 14:23 [facility] ED Fall Risk Assessment (Adult) History of falling in the last 3 months, ap3 including since admission No falls in past 3 months (0 pts) Confusion or Disorientation No (0 pts) Intoxicated or Sedated No (0 pts) Impaired Gait Yes (1 pt) Mobility Assist Device Used No (0 pt) Altered Elimination No (0 pt). Vital Signs: 14:19 BP 97 / 57; Pulse 79; Resp 19; Temp 98.8; Pulse Ox 99% ; Weight 71.67 kg; Height 5 ft. ap3 4 in. ; Pain 10/10; 14:51 BP 128 / 87; ap3 15:09 BP 111 / 68; ap3 14:19 Body Mass Index 27.12 (71.67 kg, 162.56 cm) ap3 14:19 Pain Scale: Adult ap3 ED Course: 14:12 Patient arrived in ED. jr8 14:12 Kenny Soto PA is PHCP. jr8 14:12 Nic Bates MD is Attending Physician. jr8 14:19 Keila Dow, BONIFACIO is Primary Nurse. ap3 14:21 Triage completed. ap3 14:22 Arm band placed on right wrist. ap3 14:22 Patient has correct armband on for positive identification. Bed in low position. Call ap3 light in reach. Side rails up X2. Pulse ox on. NIBP on. Door closed. Noise minimized. Warm blanket given. 14:36 Initial lab(s) drawn, by me, sent to lab. Inserted saline lock: 20 gauge in right ap3 antecubital area, using aseptic technique. Blood collected. 14:58 Hip Right 2 View XRAY In Process Unspecified. EDMS 15:20 Hip Right Wo Con In Process Unspecified. EDMS 16:19 initiated transfer to [facility]. bd 17:24 Jose Woodward MD is Referral Physician. jr8 18:23 No provider procedures requiring assistance completed. IV discontinued, intact, jl7 bleeding controlled, No redness/swelling at site. Pressure dressing applied. Administered Medications: 14:36 Drug: fentaNYL (PF) IVP 75 mcg Route: IVP; Site: right antecubital; ap3 15:09 Follow up: Response: No adverse reaction; Pain is decreased ap3 14:36 Drug: Ondansetron IVP 4 mg Route: IVP; Site: right antecubital; ap3 15:09 Follow up: Response: No adverse reaction ap3 16:00 Drug: fentaNYL (PF) IVP 75 mcg Route: IVP; Site: right antecubital; ap3 17:31 Follow up: Response: No adverse reaction; Pain is decreased; RASS: Alert and Calm (0) ll1 17:30 Drug: Meperidine IVP 50 mg {Note: Pain 10/10, RASS 0.} Route: IVP; Site: right ll1 antecubital; 18:00 Follow up: Response: No adverse reaction; Pain is decreased jl7 Medication: 18:23 VIS not applicable for this client. jl7 Outcome: 17:32 Discharge ordered by . magan 18:22 Discharged to home with family. jl7 18:22 Condition: stable 18:22 Discharge instructions given to patient, family, Instructed on discharge instructions, follow up and referral plans. Demonstrated understanding of instructions, follow-up care. 18:24 Patient left the ED. jl7 Signatures: Dispatcher [employer] EDMS Leonarda Cevallos Josh, PA PA jr8 Kasandra Epperson RN RN jl7 Keila Dow RN RN ap3 Marco Maier RN RN ll1
[2022-09-11] MEDS ORDERED: LACTULOSE 20 GM/30 ML UCUP ONE (18:35)
[2022-09-11 18:53] VITALS: TEMP 98.8; O2SAT 99
[2022-09-11 19:02] VITALS: BP 111/68
== END 2022-09-11 18:24 | disposition home or self-care (01) ==
LOC: ER 14:07
DX: S72.001A Fracture of unspecified part of neck of right femur, initial encounter for closed fracture (principal); F17.210 Nicotine dependence, cigarettes, uncomplicated; Z88.5 Allergy status to narcotic agent; Z88.8 Allergy status to other drugs, medicaments and biological substances
CPT/HCPCS: 85025; 80048; 36415; 73700; 73502; 96375; 96374; 99284; J3010 ×2; J2175; J2405

== ENCOUNTER 2022-10-09 09:43 | Emergency (ER) | payer OTHER ==
--- OUTSIDE RECORDS SUMMARY | 2022-10-09 10:06 | XMS REPORT | Continuity of Care Document ---
:1975 Author Organization [facility] t Address [address] [facility] [place] [address] Care Team Providers Name Role Phone Asked, No Pcp Primary Care Physician Unavailable YENNI BECERRA Attending Clinician Unavailable YENNI BECERRA Attending Clinician Unavailable MARIIA CURRAN Attending Clinician Unavailable Mariia Landry Attending Clinician Stefania Tobar MD Attending Clinician LUTHER JOSE Attending Clinician Unavailable BEBA_Mayra Attending Clinician Unavailable Seth Ariza MD Attending Clinician STEFANIA TOBAR Attending Clinician Unavailable LISA MURILLO Attending Clinician Unavailable Lisa Lopez Attending Clinician STEFANIA HERNADEZ Attending Clinician Unavailable Stefania Jones DO Attending Clinician ANDERSON ALATORRE Attending Clinician Unavailable Anderson Alatorre MD Attending Clinician Dionisio Freeman MD Attending Clinician Doctor Unassigned, [place] Attending Clinician Unavailable Kristine Ojeda MD Attending Clinician Pcp-Lab Attending Clinician Unavailable Lex Ochoa MD Attending Clinician LEX OCHOA Attending Clinician Unavailable [place] [facility] Attending Clinician Unavailable DOROTEO RUBIO Attending Clinician [...] Attending Clinician LYNDA SHULTZ Attending Clinician Unavailable [facility] Attending Clinician Unavailable JV RANDHAWA Attending Clinician Unavailable Mick Jamie MD Attending Clinician PAULINA ZAMORA Attending Clinician Unavailable Paulina Zamora MD Attending Clinician Jaspreet VALDOVINOS, Mariangel Parker Attending Clinician Unavailable Gee Baptiste MD Attending Clinician BRADEN DEAN Attending Clinician Unavailable Yolande CARLOS, [facility] Attending Clinician Aparna Rowley Attending Clinician BEBA_Oral_Ezequiel_ Admitting Clinician Unavailable LISA MURILLO Admitting Clinician Unavailable ANDERSON ALATORRE Admitting Clinician Unavailable Payers Payer Name Policy Type Policy Number Effective Date Expiration Date [facility] [id number] [facility] PLUS [id number] 2020 00:00:00 [facility] COMM[facility] [id number] DH - DUAL (MEDICARE REPLACEMENT HMO) Problems Condition Condition Condition Status Onset Resolution [...] Active Univers ALLERGIE Class ity of S [facility] Social History Social Habit Start Date Stop Date Quantity Comments Source History of tobacco Cigarette Smoker University of use [facility] Gender identity [facility] Sexual orientation [facility] Exposure to 2022-07-18 2022-07-28 Not sure University SARS-CoV-2 (event) 00:00:00 08:24:00 [facility] Alcohol intake 2022-07-28 2022-07-28 Current University of 00:00:00 00:00:00 non-drinker of [facility] alcohol Branch (finding) History of Social 2022-07-28 2022-07-[address] function 00:00:00 00:00:00 Hospital Tobacco use and 2022-04-25 2022-04-25 Smokeless Universit y of exposure 00:00:00 00:00:00 tobacco non-user [facility] dical [place] Cigarettes smoked 2022-04-25 2022-04-25 [facility] of current (pack per 00:00:00 00:00:00 [facility] ) - Reported Branch Cigarette 2022-04-25 2022-04-25 University of pack-years 00:00:00 00:00:00 [facility] Sex Ass[birth year] At [birth year] [employer] 00:00:00 00:00:00 Hospital Smoking Status Start Date Stop Date Source Tobacco smoking consumption Meth [facility] unknown Smokes tobacco daily 2022-04-25 00:00[facility]00 [facility]dered Filled Start Stop Current Ordering [...] up to 5 days. acetamin[place] 2022- [place] [address] 1{tbl} Q6H Take 1-2 Methodi en-codeine 4-14 04-[address] (TYLENOL 00:00: 04:59 [facility] WITH 00 :00 every 6 l CODEINE #3) (six) 300-30 mg hours as per tablet needed for moderate pain for up to 5 days .acute pain. ondansetron 3-0 2023- No 4mg Q8H Take 1 Met hodi ODT 4-14 04-20 tablet (4 st (ZOFRAN-ODT 00:00: 04:59 mg total) Hospita ) 4 MG 00 :00 by mouth l disintegrat every 8 ing tablet (eight) hours as needed for nausea or vomiting for up to 5 days. acetaminoph 2022-2022- [place] [id number] 1{tbl} Q6H Take 1-2 Methodi en-codeine 4-14 04-[address] (TYLENOL 00:00: 04:59 mouth [facility] WITH 00 :00 every 6 l CODEINE #3) (six) 300-30 mg hours as per tablet needed for moderate pain for up to 5 days .acute pain. ondansetron 2022-0 2022- No 4mg Q8H Take 1 Met hodi ODT 4-14 04-20 tablet (4 st (ZOFRAN-ODT 00:00: 04:59 mg total) Hospita ) 4 MG 00 :00 by mouth l disintegrat every 8 ing tablet (eight) hours as needed for nausea or vomiting for up to 5 days. acetaminoph 2022-0 2022- [place] [id number] 1{tbl} Q6H Take 1-2 Methodi en-codeine 4-14 04-[address] (TYLENOL 00:00: 04:59 mouth [facility] WITH 00 :00 every 6 l CODEINE #3) (six) 300-30 mg hours as per tablet needed for moderate pain for up to 5 days .acute pain. keTOROlac 3-0 3- No 10mg Q6H Take 1 Metho di (TORadol) 4-28 07-19 tablet (10 st 10 mg 00:00: 04:59 mg total) Hospit a tablet 00 :00 by mouth l every 6 (six) hours as needed for moderate pain for up to 4 days. keTOROlac 2023-0 2023- No 10mg Q6H Take 1 Metho di (TORadol) -28 07-19 tablet (10 st 10 mg 00:00: 04:59 mg total) Hospit a tablet 00 :00 by mouth l every 6 (six) hours as needed for moderate pain for up to 4 days. keTOROlac 2022- No 10mg Q6H Take 1 [...] 07/22/22 at 2045, NUZHAT USE 1 UNIT No DOSE IN 1-18 NEBULIZER 00:00: EVERY 4 TO 00 6 HOURS NEEDED. BUDESONIDE/ 2022-0 No FORMOTEROL 1-18 FUMARATE 00:00: DIHY DRATE 00 160-4.5 MCG/ACT AERO amLODIPine 2022-0 Yes [id number] 5mg Take 5 mg Univers 5 mg tablet 1-10 by mouth ity of 14:05: in the [place] [address] morning. Medical Branch amLODIPine 2022-0 Yes [id number] 5mg Take 5 mg Univers 5 mg tablet 1-10 by mouth ity of 14:05: in the [place] [address] morning. Medical Branch amLODIPine 2022-0 Yes [id number] 5mg Take 5 mg Univers 5 mg tablet 1-10 by mouth ity of 14:05: in the [place] [address] morning. Medical Branch amLODIPine 3-0 Yes [id number] 5mg Take 5 mg Univers 5 mg tablet 1-10 by mouth ity of 14:05: in the [place] [address] morning. Medical Branch amLODIPine 3-0 Yes [id number] 5mg Take 5 mg Univers 5 mg tablet 1-10 by mouth ity of 14:05: in the [place] [address] morning. Medical Branch amLODIPine 3-0 Yes [id number] 5mg Take 5 mg Univers 5 mg tablet 1-10 by mouth ity of 14:05: in the [place] [address] morning. Medical Branch amLODIPine 3-0 Yes [id number] 5mg Take 5 mg Univers 5 mg tablet 1-10 by mouth ity of 14:05: in the [place] [address] morning. Medical Branch amLODIPine 3-0 Yes [id number] 5mg Take 5 mg Univers 5 mg tablet 1-10 by mouth ity of 14:05: in the [place] [address] morning. Medical Branch amLODIPine 3-0 Yes [id number] 5mg Take 5 mg Univers 5 mg tablet 1-10 by mouth ity of 14:05: in the [place] [address] morning. Medical Branch amLODIPine 2022-0 Yes [id number] 5mg Take 5 mg Univers 5 mg tablet 1-10 by mouth ity of 14:05: in the [place] [address] morning. Medical Branch amLODIPine 2022-0 Yes [id number] 5mg Take 5 mg Univers 5 mg tablet 1-10 by mouth ity of 14:05: in the [place] [address] morning. Medical Branch amLODIPine 3-0 Yes [id number] 5mg Take 5 mg Univers 5 mg tablet 1-10 by mouth ity of 14:05: in the [place] [address] morning. Medical Branch amLODIPine 3-0 Yes [id number] 5mg Take 5 mg Univers 5 mg tablet 1-10 by mouth ity of 14:05: in the [place] [address] morning. Medical Branch amLODIPine 3-0 Yes [id number] 5mg Take 5 mg Univers 5 mg tablet 1-10 by mouth ity of 14:05: in the [place] [address] morning. Medical Branch amLODIPine 3-0 Yes [id number] 5mg Take 5 mg Univers 5 mg tablet 1-10 by mouth ity of 14:05: in the [place] [address] morning. Medical Branch amLODIPine 3-0 Yes [id number] 5mg Take 5 mg Univers 5 mg tablet 1-10 by mouth ity of 14:05: in the [place] [address] morning. Medical Branch amLODIPine 3-0 Yes [id number] 5mg Take 5 mg Univers 5 mg tablet 1-10 by mouth ity of 14:05: in the [place] [address] morning. Medical Branch amLODIPine 3-0 Yes [id number] 5mg Take 5 mg Univers 5 mg tablet 1-10 by mouth ity of 14:05: in the [place] [address] morning. Medical Branch amLODIPine 3-0 Yes [id number] 5mg Take 5 mg Univers 5 mg tablet 1-10 by mouth ity of 14:05: in the [place] [address] morning. Medical Branch omeprazole 3-0 Yes [id number] 40mg Take 40 mg Univers 40 mg 1-10 by mouth ity of capsule 13:52: in the [place] [address] morning. Medical Branch omeprazole 3-0 Yes [id number] 40mg Take 40 mg Univers 40 mg 1-10 by mouth ity of capsule 13:52: in the [place] [address] morning. Medical Branch omeprazole 3-0 Yes [id number] 40mg Take 40 mg Univers 40 mg 1-10 by mouth ity of capsule 13:52: in the [place] [address] morning. Medical Branch omeprazole 3-0 Yes [id number] 40mg Take 40 mg Univers 40 mg 1-10 by mouth ity of capsule 13:52: in the [place] [address] morning. Medical Branch omeprazole 3-0 Yes [id number] 40mg Take 40 mg Univers 40 mg 1-10 by mouth ity of capsule 13:52: in the [place] [address] morning. Medical Branch omeprazole 3-0 Yes [id number] 40mg Take 40 mg Univers 40 mg 1-10 by mouth ity of capsule 13:52: in the [place] [address] morning. Medical Branch omeprazole 3-0 Yes [id number] 40mg Take 40 mg Univers 40 mg 1-10 by mouth ity of capsule 13:52: in the [place] [address] morning. Medical Branch omeprazole 2023-0 Yes [id number] 40mg Take 40 mg Univers 40 mg 1-10 by mouth ity of capsule 13:52: in the [place] [address] morning. Medical Branch omeprazole 2023-0 Yes [id number] 40mg Take 40 mg Univers 40 mg 1-10 by mouth ity of capsule 13:52: in the [place] [address] morning. Medical Branch omeprazole 2023-0 Yes [id number] 40mg Take 40 mg Univers 40 mg 1-10 by mouth ity of capsule 13:52: in the [place] [address] morning. Medical Branch omeprazole 2023-0 Yes [id number] 40mg Take 40 mg Univers 40 mg 1-10 by mouth ity of capsule 13:52: in the [place] [address] morning. Medical Branch omeprazole 2023-0 Yes [id number] 40mg Take 40 mg Univers 40 mg 1-10 by mouth ity of capsule 13:52: in the [place] [address] morning. Medical Branch omeprazole 2023-0 Yes [id number] 40mg Take 40 mg Univers 40 mg 1-10 by mouth ity of capsule 13:52: in the [place] [address] morning. Medical Branch omeprazole 2023-0 Yes [id number] 40mg Take 40 mg Univers 40 mg 1-10 by mouth ity of capsule 13:52: in the [place] [address] morning. Medical Branch omeprazole 2023-0 Yes [id number] 40mg Take 40 mg Univers 40 mg 1-10 by mouth ity of capsule 13:52: in the [place] [address] morning. Medical Branch omeprazole 2023-0 Yes [id number] 40mg Take 40 mg Univers 40 mg 1-10 by mouth ity of capsule 13:52: in the [place] [address] morning. Medical Branch omeprazole 2023-0 Yes [id number] 40mg Take 40 mg Univers 40 mg 1-10 by mouth ity of capsule 13:52: in the [place] [address] morning. Medical Branch omeprazole 2023-0 Yes [id number] 40mg Take 40 mg Univers 40 mg 1-10 by mouth ity of capsule 13:52: in the [place] [address] morning. Medical Branch omeprazole 2023-0 Yes [id number] 40mg Take 40 mg Univers 40 mg 1-10 by mouth ity of capsule 13:52: in the [place] [address] morning. Medical Branch clonazePAM 2023-0 Yes [id number] 1mg Take 1 mg Univers 1 mg tablet 1-10 by mouth 3 it y of 13:51: (three) [place] 23 times Medical daily as Branch needed. clonazePAM 2023-0 Yes [id number] 1mg Take 1 mg Univers 1 mg tablet 1-10 by mouth 3 it y of 13:51: (three) [place] 23 times Medical daily as Branch needed. clonazePAM 2023-0 Yes [id number] 1mg Take 1 mg Univers 1 mg tablet 1-10 by mouth 3 it y of 13:51: (three) [place] 23 times Medical daily as Branch needed. clonazePAM 2023-0 Yes [id number] 1mg Take 1 mg Univers 1 mg tablet 1-10 by mouth 3 it y of 13:51: (three) [place] 23 times Medical daily as Branch needed. clonazePAM 2023-0 Yes [id number] 1mg Take 1 mg Univers 1 mg tablet 1-10 by mouth 3 it y of 13:51: (three) [place] 23 times Medical daily as Branch needed. clonazePAM 2023-0 Yes [id number] 1mg Take 1 mg Univers 1 mg tablet 1-10 by mouth 3 it y of 13:51: (three) [place] 23 times Medical daily as Branch needed. clonazePAM 2023-0 Yes [id number] 1mg Take 1 mg Univers 1 mg tablet 1-10 by mouth 3 it y of 13:51: (three) [place] 23 times Medical daily as Branch needed. clonazePAM 2023-0 Yes [id number] 1mg Take 1 mg Univers 1 mg tablet 1-10 by mouth 3 it y of 13:51: (three) [place] 23 times Medical daily as Branch needed. clonazePAM 2023-0 Yes [id number] 1mg Take 1 mg Univers 1 mg tablet 1-10 by mouth 3 it y of 13:51: (three) [place] 23 times Medical daily as Branch needed. clonazePAM 2023-0 Yes [id number] 1mg Take 1 mg Univers 1 mg tablet 1-10 by mouth 3 it y of 13:51: (three) [place] 23 times Medical daily as Branch needed. clonazePAM 2023-0 Yes [id number] 1mg Take 1 mg Univers 1 mg tablet 1-10 by mouth 3 it y of 13:51: (three) [place] 23 times Medical daily as Branch needed. clonazePAM 2023-0 Yes [id number] 1mg Take 1 mg Univers 1 mg tablet 1-10 by mouth 3 it y of 13:51: (three) [place] 23 times Medical daily as Branch needed. clonazePAM 2023-0 Yes [id number] 1mg Take 1 mg Univers 1 mg tablet 1-10 by mouth 3 it y of 13:51: (three) [place] 23 times Medical daily as Branch needed. clonazePAM 2023-0 Yes [id number] 1mg Take 1 mg Univers 1 mg tablet 1-10 by mouth 3 it y of 13:51: (three) [place] 23 times Medical daily as Branch needed. clonazePAM 2023-0 Yes [id number] 1mg Take 1 mg Univers 1 mg tablet 1-10 by mouth 3 it y of 13:51: (three) [place] 23 times Medical daily as Branch needed. clonazePAM 2023-0 Yes [id number] 1mg Take 1 mg Univers 1 mg tablet 1-10 by mouth 3 it y of 13:51: (three) [place] 23 times Medical daily as Branch needed. clonazePAM 2023-0 Yes [id number] 1mg Take 1 mg Univers 1 mg tablet 1-10 by mouth 3 it y of 13:51: (three) [place] 23 times Medical daily as Branch needed. clonazePAM 3-0 Yes [id number] 1mg Take 1 mg Univers 1 mg tablet 1-10 by mouth 3 it y of 13:51: (three) [place] 23 times Medical daily as Branch needed. clonazePAM 3-0 Yes [id number] 1mg Take 1 mg Univers 1 mg tablet 1-10 by mouth 3 it y of 13:51: (three) [place] 23 times Medical daily as Branch needed. lithium 3-0 Yes [id number] 150mg Take 0.5 Univers carbonate 1-10 tablets by ity of 300 mg 00:00: mouth in [place] tablet 00 the Medical morning. Branch QUEtiapine 2022-0 Yes [id number] 50mg Take 1 Univers 50 mg 1-10 tablet by ity of tablet 00:00: mouth at [place] 00 bedtime as Medical needed for Branch Insomnia. gabapentin 3-0 Yes [id number] 600mg Take 2 Univers 300 mg 1-10 9102 capsules ity of capsule 00:00: by mouth [place] 00 in the Medical morning Branch and 2 capsules at noon and 2 capsules in the evening. hydrOXYzine 3-0 Yes [id number] 25mg Take 1 Univers 25 mg 1-10 tablet by ity of tablet 00:00: mouth [place] 00 every 6 Medical (six) Branch hours as needed for Anxiety. lithium 2023-0 Yes [id number] 150mg Take 0.5 Univers carbonate 1-10 tablets by ity of 300 mg 00:00: mouth in [place] tablet 00 the Medical morning. Branch QUEtiapine 2023-0 Yes [id number] 50mg Take 1 Univers 50 mg 1-10 tablet by ity of tablet 00:00: mouth at [place] 00 bedtime as Medical needed for Branch Insomnia. gabapentin 2023-0 Yes [id number] 600mg Take 2 Univers 300 mg 1-10 9102 capsules ity of capsule 00:00: by mouth [place] 00 in the Medical morning Branch and 2 capsules at noon and 2 capsules in the evening. hydrOXYzine 2023-0 Yes [id number] 25mg Take 1 Univers 25 mg 1-10 tablet by ity of tablet 00:00: mouth [place] 00 every 6 Medical (six) Branch hours as needed for Anxiety. lithium 2023-0 Yes [id number] 150mg Take 0.5 Univers carbonate 1-10 tablets by ity of 300 mg 00:00: mouth in [place] tablet 00 the Medical morning. Branch QUEtiapine 2023-0 Yes [id number] 50mg Take 1 Univers 50 mg 1-10 tablet by ity of tablet 00:00: mouth at [place] 00 bedtime as Medical needed for Branch Insomnia. gabapentin 2023-0 Yes [id number] 600mg Take 2 Univers 300 mg 1-10 9102 capsules ity of capsule 00:00: by mouth [place] 00 in the Medical morning Branch and 2 capsules at noon and 2 capsules in the evening. hydrOXYzine 2023-0 Yes [id number] 25mg Take 1 Univers 25 mg 1-10 tablet by ity of tablet 00:00: mouth [place] 00 every 6 Medical (six) Branch hours as needed for Anxiety. lithium 2023-0 Yes [id number] 150mg Take 0.5 Univers carbonate 1-10 tablets by ity of 300 mg 00:00: mouth in [place] tablet 00 the Medical morning. Branch QUEtiapine 2023-0 Yes [id number] 50mg Take 1 Univers 50 mg 1-10 tablet by ity of tablet 00:00: mouth at [place] 00 bedtime as Medical needed for Branch Insomnia. gabapentin 2023-0 Yes [id number] 600mg Take 2 Univers 300 mg 1-10 9102 capsules ity of capsule 00:00: by mouth [place] 00 in the Medical morning Branch and 2 capsules at noon and 2 capsules in the evening. hydrOXYzine 2023-0 Yes [id number] 25mg Take 1 Univers 25 mg 1-10 tablet by ity of tablet 00:00: mouth [place] 00 every 6 Medical (six) Branch hours as needed for Anxiety. lithium 2023-0 Yes [id number] 150mg Take 0.5 Univers carbonate 1-10 tablets by ity of 300 mg 00:00: mouth in [place] tablet 00 the Medical morning. Branch QUEtiapine 2023-0 Yes [id number] 50mg Take 1 Univers 50 mg 1-10 tablet by ity of tablet 00:00: mouth at [place] 00 bedtime as Medical needed for Branch Insomnia. gabapentin 2023-0 Yes [id number] 600mg Take 2 Univers 300 mg 1-10 9102 capsules ity of capsule 00:00: by mouth [place] 00 in the Medical morning Branch and 2 capsules at noon and 2 capsules in the evening. hydrOXYzine 2023-0 Yes [id number] 25mg Take 1 Univers 25 mg 1-10 tablet by ity of tablet 00:00: mouth [place] 00 every 6 Medical (six) Branch hours as needed for Anxiety. lithium 2023-0 Yes [id number] 150mg Take 0.5 Univers carbonate 1-10 tablets by ity of 300 mg 00:00: mouth in [place] tablet 00 the Medical morning. Branch QUEtiapine 3-0 Yes [id number] 50mg Take 1 Univers 50 mg 1-10 tablet by ity of tablet 00:00: mouth at [place] 00 bedtime as Medical needed for Branch Insomnia. gabapentin 3-0 Yes [id number] 600mg Take 2 Univers 300 mg 1-10 9102 capsules ity of capsule 00:00: by mouth [place] 00 in the Medical morning Branch and 2 capsules at noon and 2 capsules in the evening. hydrOXYzine 2023-0 Yes [id number] 25mg Take 1 Univers 25 mg 1-10 tablet by ity of tablet 00:00: mouth [place] 00 every 6 Medical (six) Branch hours as needed for Anxiety. lithium 2023-0 Yes [id number] 150mg Take 0.5 Univers carbonate 1-10 tablets by ity of 300 mg 00:00: mouth in [place] tablet 00 the Medical morning. Branch QUEtiapine 2023-0 Yes [id number] 50mg Take 1 Univers 50 mg 1-10 tablet by ity of tablet 00:00: mouth at [place] 00 bedtime as Medical needed for Branch Insomnia. gabapentin 2023-0 Yes [id number] 600mg Take 2 Univers 300 mg 1-10 9102 capsules ity of capsule 00:00: by mouth [place] 00 in the Medical morning Branch and 2 capsules at noon and 2 capsules in the evening. hydrOXYzine 2023-0 Yes [id number] 25mg Take 1 Univers 25 mg 1-10 tablet by ity of tablet 00:00: mouth [place] 00 every 6 Medical (six) Branch hours as needed for Anxiety. lithium 2023-0 Yes [id number] 150mg Take 0.5 Univers carbonate 1-10 tablets by ity of 300 mg 00:00: mouth in [place] tablet 00 the Medical morning. Branch QUEtiapine 2023-0 Yes [id number] 50mg Take 1 Univers 50 mg 1-10 tablet by ity of tablet 00:00: mouth at [place] 00 bedtime as Medical needed for Branch Insomnia. gabapentin 2022-0 Yes [id number] 600mg Take 2 Univers 300 mg 1-10 9102 capsules ity of capsule 00:00: by mouth [place] 00 in the Medical morning Branch and 2 capsules at noon and 2 capsules in the evening. hydrOXYzine 2023-0 Yes [id number] 25mg Take 1 Univers 25 mg 1-10 tablet by ity of tablet 00:00: mouth [place] 00 every 6 Medical (six) Branch hours as needed for Anxiety. lithium 3-0 Yes [id number] 150mg Take 0.5 Univers carbonate 1-10 tablets by ity of 300 mg 00:00: mouth in [place] tablet 00 the Medical morning. Branch QUEtiapine 2022-0 Yes [id number] 50mg Take 1 Univers 50 mg 1-10 tablet by ity of tablet 00:00: mouth at [place] 00 bedtime as Medical needed for Branch Insomnia. gabapentin 3-0 Yes [id number] 600mg Take 2 Univers 300 mg 1-10 9102 capsules ity of capsule 00:00: by mouth [place] 00 in the Medical morning Branch and 2 capsules at noon and 2 capsules in the evening. hydrOXYzine 2023-0 Yes [id number] 25mg Take 1 Univers 25 mg 1-10 tablet by ity of tablet 00:00: mouth [place] 00 every 6 Medical (six) Branch hours as needed for Anxiety. lithium 2023-0 Yes [id number] 150mg Take 0.5 Univers carbonate 1-10 tablets by ity of 300 mg 00:00: mouth in [place] tablet 00 the Medical morning. Branch QUEtiapine 2023-0 Yes [id number] 50mg Take 1 Univers 50 mg 1-10 tablet by ity of tablet 00:00: mouth at [place] 00 bedtime as Medical needed for Branch Insomnia. gabapentin 2023-0 Yes [id number] 600mg Take 2 Univers 300 mg 1-10 9102 capsules ity of capsule 00:00: by mouth [place] 00 in the Medical morning Branch and 2 capsules at noon and 2 capsules in the evening. hydrOXYzine 2023-0 Yes [id number] 25mg Take 1 Univers 25 mg 1-10 tablet by ity of tablet 00:00: mouth [place] 00 every 6 Medical (six) Branch hours as needed for Anxiety. lithium 2023-0 Yes [id number] 150mg Take 0.5 Univers carbonate 1-10 tablets by ity of 300 mg 00:00: mouth in [place] tablet 00 the Medical morning. Branch QUEtiapine 2023-0 Yes [id number] 50mg Take 1 Univers 50 mg 1-10 tablet by ity of tablet 00:00: mouth at [place] 00 bedtime as Medical needed for Branch Insomnia. gabapentin 3-0 Yes [id number] 600mg Take 2 Univers 300 mg 1-10 9102 capsules ity of capsule 00:00: by mouth [place] 00 in the Medical morning Branch and 2 capsules at noon and 2 capsules in the evening. hydrOXYzine 2023-0 Yes [id number] 25mg Take 1 Univers 25 mg 1-10 tablet by ity of tablet 00:00: mouth [place] 00 every 6 Medical (six) Branch hours as needed for Anxiety. lithium 2023-0 Yes [id number] 150mg Take 0.5 Univers carbonate 1-10 tablets by ity of 300 mg 00:00: mouth in [place] tablet 00 the Medical morning. Branch QUEtiapine 2023-0 Yes [id number] 50mg Take 1 Univers 50 mg 1-10 tablet by ity of tablet 00:00: mouth at [place] 00 bedtime as Medical needed for Branch Insomnia. gabapentin 2023-0 Yes [id number] 600mg Take 2 Univers 300 mg 1-10 9102 capsules ity of capsule 00:00: by mouth [place] 00 in the Medical morning Branch and 2 capsules at noon and 2 capsules in the evening. hydrOXYzine 2023-0 Yes [id number] 25mg Take 1 Univers 25 mg 1-10 tablet by ity of tablet 00:00: mouth [place] 00 every 6 Medical (six) Branch hours as needed for Anxiety. lithium 2023-0 Yes [id number] 150mg Take 0.5 Univers carbonate 1-10 tablets by ity of 300 mg 00:00: mouth in [place] tablet 00 the Medical morning. Branch QUEtiapine 2023-0 Yes [id number] 50mg Take 1 Univers 50 mg 1-10 tablet by ity of tablet 00:00: mouth at [place] 00 bedtime as Medical needed for Branch Insomnia. gabapentin 2023-0 Yes [id number] 600mg Take 2 Univers 300 mg 1-10 9102 capsules ity of capsule 00:00: by mouth [place] 00 in the Medical morning Branch and 2 capsules at noon and 2 capsules in the evening. hydrOXYzine 2023-0 Yes [id number] 25mg Take 1 Univers 25 mg 1-10 tablet by ity of tablet 00:00: mouth [place] 00 every 6 Medical (six) Branch hours as needed for Anxiety. lithium 2023-0 Yes [id number] 150mg Take 0.5 Univers carbonate 1-10 tablets by ity of 300 mg 00:00: mouth in [place] tablet 00 the Medical morning. Branch QUEtiapine 3-0 Yes [id number] 50mg Take 1 Univers 50 mg 1-10 tablet by ity of tablet 00:00: mouth at [place] 00 bedtime as Medical needed for Branch Insomnia. gabapentin 3-0 Yes [id number] 600mg Take 2 Univers 300 mg 1-10 9102 capsules ity of capsule 00:00: by mouth [place] 00 in the Medical morning Branch and 2 capsules at noon and 2 capsules in the evening. hydrOXYzine 2023-0 Yes [id number] 25mg Take 1 Univers 25 mg 1-10 tablet by ity of tablet 00:00: mouth [place] 00 every 6 Medical (six) Branch hours as needed for Anxiety. lithium 2023-0 Yes [id number] 150mg Take 0.5 Univers carbonate 1-10 tablets by ity of 300 mg 00:00: mouth in [place] tablet 00 the Medical morning. Branch QUEtiapine 2023-0 Yes [id number] 50mg Take 1 Univers 50 mg 1-10 tablet by ity of tablet 00:00: mouth at [place] 00 bedtime as Medical needed for Branch Insomnia. gabapentin 2023-0 Yes [id number] 600mg Take 2 Univers 300 mg 1-10 9102 capsules ity of capsule 00:00: by mouth [place] 00 in the Medical morning Branch and 2 capsules at noon and 2 capsules in the evening. hydrOXYzine 2023-0 Yes [id number] 25mg Take 1 [facility] 25 mg 1-10 tablet by ity of tablet 00:00: mouth [place] 00 every 6 Medical (six) Branch hours as needed for Anxiety. lithium 2023-0 Yes [id number] 150mg Take 0.5 [facility] carbonate 1-10 tablets by ity of 300 mg 00:00: mouth in [place] tablet 00 the Medical morning. Branch QUEtiapine 3-0 Yes [id number] 50mg Take 1 [facility] 50 mg 1-10 tablet by ity of tablet 00:00: mouth at [place] 00 bedtime as Medical needed for Branch Insomnia. gabapentin 2022-0 Yes [id number] 600mg Take 2 [facility] 300 mg 1-10 9102 capsules ity of capsule 00:00: by mouth [place] 00 in the Medical morning Branch and 2 capsules at noon and 2 capsules in the evening. hydrOXYzine 2022-0 Yes [id number] 25mg Take 1 [facility] 25 mg 1-10 tablet by ity of tablet 00:00: mouth [place] 00 every 6 Medical (six) Branch hours as needed for Anxiety. lithium 2022-0 Yes [id number] 150mg Take 0.5 [facility] carbonate 1-10 tablets by ity of 300 mg 00:00: mouth in [place] tablet 00 the Medical morning. Branch QUEtiapine 2022-0 Yes [id number] 50mg Take 1 [facility] 50 mg 1-10 tablet by ity of tablet 00:00: mouth at [place] 00 bedtime as Medical needed for Branch Insomnia. gabapentin 2022-0 Yes [id number] 600mg Take 2 [facility] 300 mg 1-10 9102 capsules ity of capsule 00:00: by mouth [place] 00 in the Medical morning Branch and 2 capsules at noon and 2 capsules in the evening. hydrOXYzine 2023-0 Yes [id number] 25mg Take 1 [facility] 25 mg 1-10 tablet by ity of tablet 00:00: mouth [place] 00 every 6 Medical (six) Branch hours as needed for Anxiety. lithium 2023-0 Yes [id number] 150mg Take 0.5 [facility] carbonate 1-10 tablets by ity of 300 mg 00:00: mouth in [place] tablet 00 the Medical morning. Branch QUEtiapine 2023-0 Yes [id number] 50mg Take 1 [facility] 50 mg 1-10 tablet by ity of tablet 00:00: mouth at [place] 00 bedtime as Medical needed for Branch Insomnia. gabapentin 2023-0 Yes [id number] 600mg Take 2 [facility] 300 mg 1-10 9102 capsules ity of capsule 00:00: by mouth [place] 00 in the Medical morning Branch and 2 capsules at noon and 2 capsules in the evening. hydrOXYzine 2022-0 Yes [id number] 25mg Take 1 [facility] 25 mg 1-10 tablet by ity of tablet 00:00: mouth [place] 00 every 6 Medical (six) Branch hours as needed for Anxiety. lithium 2022-0 Yes [id number] 150mg Take 0.5 [facility] carbonate 1-10 tablets by ity of 300 mg 00:00: mouth in [place] tablet 00 the Medical morning. Branch QUEtiapine 2022-0 Yes [id number] 50mg Take 1 [facility] 50 mg 1-10 tablet by ity of tablet 00:00: mouth at [place] 00 bedtime as Medical needed for Branch Insomnia. gabapentin 2022-0 Yes [id number] 600mg Take 2 [facility] 300 mg 1-10 9102 capsules ity of capsule 00:00: by mouth [place] 00 in the Medical morning Branch and 2 capsules at noon and 2 capsules in the evening. hydrOXYzine 2022-0 Yes [id number] 25mg Take 1 [facility] 25 mg 1-10 tablet by ity of tablet 00:00: mouth [place] 00 every 6 Medical (six) Branch hours as needed for Anxiety. methocarbam 2022-0 2022- No [id number] 750mg Take 1 [facility] oL 750 mg 1-10 - 9102 tablet by ity of tablet 00:00: 05:59 mouth 4 [place] 00 :00 ([facility]) Medical times Branch daily for 30 days. methocarbam 2022-0 2022- No [id number] 750mg Take 1 [facility] oL 750 mg 1-10 - 9102 tablet by ity of tablet 00:00: 05:59 mouth 4 [place] 00 :00 ([facility]) Medical times Branch daily for 30 days. methocarbam 2022-0 2022- No [id number] 750mg Take 1 [facility] oL 750 mg 1-10 -10 9102 tablet by ity of tablet 00:00: 05:59 mouth 4 [place] 00 :00 (four) Medical times Branch daily for 30 days. methocarbam 2022-0 2022- No [id number] 750mg Take 1 [facility] oL 750 mg 1-10 -10 9102 tablet by ity of tablet 00:00: 05:59 mouth 4 [place] 00 :00 (four) Medical times Branch daily for 30 days. methocarbam 2022- No [id number] 750mg Take 1 [facility] oL 750 mg 04-25 9102 tablet by ity of tablet 00:00: 05:59 mouth 4 [place] 00 :00 (four) Medical times Branch daily for 30 days. methocarbam 2022- No [id number] 750mg Take 1 [facility] oL 750 mg 04-25 9102 tablet by ity of tablet 00:00: 05:59 mouth 4 [place] 00 :00 ([facility]) Medical times Branch daily for 30 days. methocarbam 2022- No [id number] 750mg Take 1 [facility] oL 750 mg 04-2502 tablet by ity of tablet 00:00: 05:59 mouth 4 [place] 00 :00 ([facility]) Medical times [place] daily for 30 days. methocarbam 2022- No [id number] 750mg Take 1 [facility] oL 750 mg 04-2502 tablet by ity of tablet 00:00: 05:59 mouth 4 [place] 00 :00 ([facility]) Medical times [place] daily for 30 days. MONTELUKAST 2021-04 No [...] 00:00: 6 HOURS 00 NEEDED. USE 2 2021- No SPRAYS IN 2-14 EACH 00:00: NOSTRIL 00 ONCE DAILY TAKE 1 2021-04 No CAPSULE 3 2-14 TIMES DAILY 00:00: NEEDED. 00 TAKE 1 2021-04 No CAPSULE BY 2-14 MOUTH ONCE 00:00: DAILY 00 GABAPENTIN 2021-04 No 300 MG CAPS 2-14 00:00: 00 LITHIUM 2021- No CARBONATE 2-14 300 MG CAPS 00:00: [...] 20 MG TABS 2-14 00:00: 00 TAKE 2021-04 No TABLET [...] E N 5-325 00 MG TABS TAKE 1 2021-04 No CAPSULE BY 2-14 MOUTH EVERY 00:00: DAY 00 SYMBICORT 2021-04 No 160-4.5 2-14 MCG/ACT 00:00: AERO 00 QUETIAPINE 2021-04 No FUMARATE 50 2-14 MG TABS 00:00: 00 DOCUSATE 2021-04 No SODIUM 100 2-14 MG CAPS 00:00: 00 TAKE 1 2021-04 No TABLET BY 2-14 MOUTH EVERY 00:00: DAY IN THE 00 MORNING TAKE 3 2021-04 No TABLETS 2-14 DAILY FOR 5 00:00: DAYS 2 00 TABLETS DAILY FOR 5 DAYS,THEN 1 TABLET DAILY FOR 5 DAYS. TAKE 1 2021-04 No TABLET BY 2-14 MOUTH TWICE [...] 00 WITH FOOD Dose 2021-04 No Unknown 214 00:00: 00 SPRAY 2 2021-04 No SPRAYS [...] TIMES DAILY 00 Dose 2021-04 No Unknown 2- 00:00: [...] MCG 00:00: TABS 00 amphetamine 2021-04 Yes [id number] 30mg Take 30 mg [facility] -dextroamph 0-20 by mouth ity of etamine 30 00:00: in the [place] mg 24 hr 00 morning Medical capsule and 30 mg Branch in the evening. amphetamine 2021-04 Yes [id number] 30mg Take 30 mg [facility] -dextroamph 0-20 by mouth ity of etamine 30 00:00: in the [place] mg 24 hr 00 morning Medical capsule and 30 mg Branch in the evening. amphetamine 2021-04 Yes [id number] 30mg Take 30 mg [facility] -dextroamph 0-20 by mouth ity of etamine 30 00:00: in the [place] mg 24 hr 00 morning Medical capsule and 30 mg Branch in the evening. amphetamine 2021-1 Yes [id number] 30mg Take 30 mg [facility] -dextroamph 0-20 by mouth ity of etamine 30 00:00: in the [place] mg 24 hr 00 morning Medical capsule and 30 mg Branch in the evening. amphetamine 2021-1 Yes [id number] 30mg Take 30 mg [facility] -dextroamph 0-20 by mouth ity of etamine 30 00:00: in the [place] mg 24 hr 00 morning Medical capsule and 30 mg Branch in the evening. amphetamine 2021-1 Yes [id number] 30mg Take 30 mg [facility] -dextroamph 0-20 by mouth ity of etamine 30 00:00: in the [place] mg 24 hr 00 morning Medical capsule and 30 mg Branch in the evening. amphetamine 2021-1 Yes [id number] 30mg Take 30 mg [facility] -dextroamph 0-20 by mouth ity of etamine 30 00:00: in the [place] mg 24 hr 00 morning Medical capsule and 30 mg Branch in the evening. amphetamine 2021-1 Yes [id number] 30mg Take 30 mg [facility] -dextroamph 0-20 by mouth ity of etamine 30 00:00: in the [place] mg 24 hr 00 morning Medical capsule and 30 mg Branch in the evening. amphetamine 2021-1 Yes [id number] 30mg Take 30 mg [facility] -dextroamph 0-20 by mouth ity of etamine 30 00:00: in the [place] mg 24 hr 00 morning Medical capsule and 30 mg Branch in the evening. amphetamine 2021-1 Yes [id number] 30mg Take 30 mg [facility] -dextroamph 0-20 by mouth ity of etamine 30 00:00: in the [place] mg 24 hr 00 morning Medical capsule and 30 mg Branch in the evening. amphetamine 2021-1 Yes [id number] 30mg Take 30 mg [facility] -dextroamph 0-20 by mouth ity of etamine 30 00:00: in the [place] mg 24 hr 00 morning Medical capsule and 30 mg Branch in the evening. amphetamine 2021-1 Yes [id number] 30mg Take 30 mg [facility] -dextroamph 0-20 by mouth ity of etamine 30 00:00: in the [place] mg 24 hr 00 morning Medical capsule and 30 mg Branch in the evening. amphetamine 2021-04 Yes [id number] 30mg Take 30 mg [facility] -dextroamph 0-20 by mouth ity of etamine 30 00:00: in the [place] mg 24 hr 00 morning Medical capsule and 30 mg Branch in the evening. amphetamine 2021-04 Yes [id number] 30mg Take 30 mg [facility] -dextroamph 0-20 by mouth ity of etamine 30 00:00: in the [place] mg 24 hr 00 morning Medical capsule and 30 mg Branch in the evening. amphetamine 2021-04 Yes [id number] 30mg Take 30 mg [facility] -dextroamph 0-20 by mouth ity of etamine 30 00:00: in the [place] mg 24 hr 00 morning Medical capsule and 30 mg Branch in the evening. amphetamine 2021-04 Yes [id number] 30mg Take 30 mg [facility] -dextroamph 0-20 by mouth ity of etamine 30 00:00: in the [place] mg 24 hr 00 morning Medical capsule and 30 mg Branch in the evening. amphetamine 2021-04 Yes [id number] 30mg Take 30 mg [facility] -dextroamph 0-20 by mouth ity of etamine 30 00:00: in the [place] mg 24 hr 00 morning Medical capsule and 30 mg Branch in the evening. amphetamine 2021-04 Yes [id number] 30mg Take 30 mg [facility] -dextroamph 0-20 by mouth ity of etamine 30 00:00: in the [place] mg 24 hr 00 morning Medical capsule and 30 mg Branch in the evening. amphetamine 2021-04 Yes [id number] 30mg Take 30 mg [facility] -dextroamph 0-20 by mouth ity of etamine 30 00:00: in the [place] mg 24 hr 00 morning Medical capsule and 30 mg Branch in the evening. TAKE 1 2021-04 No 100 CAPSULE 0-20 TWICE 00:00: DAILY. 00 TAKE 1 2021-04 No 1unit CAPSULE 0-20 TWICE 00:00: DAILY. 00 QUETIAPINE 2021-04 No FUMARATE 0-19 400 MG TABS 00:00: 00 LISINOPRIL 2021-04 No 10 MG TABS 0-19 00:00: 00 TAKE 3 2021-04 No 20 CAPSULES BY 0-19 MOUTH EVERY 00:00: DAY 00 Dose 2021- No Unknown 0-19 00:00: 00 QUETIAPINE 2021-04 No FUMARATE 0-19 400 MG TABS 00:00: 00 Dose 2021- No Unknown 0-19 00:00: 00 TAKE 3 2021- No 20 CAPSULES BY 0-19 MOUTH EVERY 00:00: DAY 00 Dose 2021- No Unknown 0-19 00:00: 00 Dose 2021- No Unknown 0-19 00:00: 00 LISINOPRIL 2021- No 10 MG TABS 0-19 00:00: 00 TAKE 3 2021- No CAPSULES BY 0-19 MOUTH EVERY 00:00: DAY 00 Dose 2021- No 1 Unknown 0-19 00:00: 00 methocarbam 2021-2022- No Unive rs oL 750 mg 0-19 01-10 ity of tablet 00:00: 00:00 [place] 00 :00 Medical Branch methocarbam 2021-04- No Unive rs oL 750 mg 0-19 01-10 ity of tablet 00:00: 00:00 [place] 00 :00 Medical Branch methocarbam 2021-2022- No Unive rs oL 750 mg 0-19 01-10 ity of tablet 00:00: 00:00 [place] 00 :00 Medical Branch methocarbam 2021-04- No Unive rs oL 750 mg 0-19 01-10 ity of tablet 00:00: 00:00 [place] 00 :00 Medical Branch methocarbam 2021-2022- No Unive rs oL 750 mg 0-19 01-10 ity of tablet 00:00: 00:00 [place] 00 :00 Medical Branch methocarbam 2021-2022- No Unive rs oL 750 mg 0-19 01-10 ity of tablet 00:00: 00:00 [place] 00 :00 Medical Branch SYMBICORT 2021-04 Yes [...] 00:00 [place] 00 :00 Medical Branch gabapentin 2021-2022- No Univer s 300 mg 0-14 01-10 ity of capsule 00:00: 00:00 [place] 00 :00 Medical Branch gabapentin 2021-2022- No Univer s 300 mg 0-14 01-10 ity of capsule 00:00: 00:00 [place] 00 :00 Medical Branch gabapentin 2021-1 2022- No Univer s 300 mg 0-14 -10 ity of capsule 00:00: 00:00 [place] 00 :00 Medical Branch gabapentin 2021-1 2022- No Univer s 300 mg 0-14 -10 ity of capsule 00:00: 00:00 [place] 00 :00 Medical Branch gabapentin 2021-1 2022- No Univer s 300 mg 0-14 -10 ity of capsule 00:00: 00:00 [place] 00 :00 Medical Branch PROAIR HFA 2021-1 No 108 (90 0-04 Base) 00:00: MCG/ACT 00 AERS TAKE 2021-04 No 50 TABLET ONCE 0-04 A DAY 00:00: (DAILY) 00 NEEDED FOR MIGRAINES PROAIR HFA 2021- No 108 (90 0-04 Base) 00:00: MCG/ACT 00 AERS TAKE 2021-04 No 50 TABLET ONCE 0-04 A DAY 00:00: (DAILY) 00 NEEDED FOR MIGRAINES PROAIR HFA 2021-1 No 108 (90 0-04 Base) 00:00: MCG/ACT 00 AERS TAKE 2021-04 No 50 TABLET ONCE 0-04 A DAY 00:00: (DAILY) 00 NEEDED FOR MIGRAINES PROAIR HFA 2021-1 No 300 108 (90 0-04 Base) 00:00: [...] FOR 00:00: DEPRESSION 00 TAKE 1 CAP 2021-0 No 30 ONCE A DAY 01-10 (DAILY) FOR 00:00: DEPRESSION 00 TAKE 1 CAP 2021-0 No 30 ONCE A DAY 01-10 (DAILY) FOR 00:00: DEPRESSION 00 TAKE 1 CAP 2021-0 No 30 ONCE A DAY 01-10 (DAILY) FOR 00:00: DEPRESSION 00 TAKE 1 CAP 2021-0 No 30 ONCE A DAY 01-10 (DAILY) FOR 00:00: DEPRESSION 00 Dose 2021-0 No Unknown 01-09 00:00: 00 Dose 2-0 No Unknown 01-09 00:00: 00 Dose 2021-0 No Unknown 01-09 00:00: 00 Dose 2021-0 No Unknown 01-09 00:00: 00 Dose 2021-0 No Unknown 01-09 00:00: 00 OMEPRAZOLE 2-0 No 40 40 MG CPDR 01-07 00:00: 00 Dose 2021-0 No Unknown 01-07 00:00: 00 Dose 2-0 No Unknown 01-07 00:00: 00 Dose 2-0 No Unknown 01-07 00:00: 00 OMEPRAZOLE 2-0 No 40 MG CPDR 01-07 00:00: 00 OMEPRAZOLE 2-0 No 40 40 MG CPDR 01-07 00:00: 00 SUMATRIPTAN 2-0 No 50 SUCCINATE 9-22 50 MG TABS 00:00: 00 SUMATRIPTAN 2-0 No SUCCINATE 9-22 50 MG TABS 00:00: 00 SUMATRIPTAN 2-0 No SUCCINATE 9-22 50 MG TABS 00:00: 00 SUMATRIPTAN 2-0 No SUCCINATE 9-22 50 MG TABS 00:00: 00 SUMATRIPTAN 2-0 No SUCCINATE 9-22 50 MG TABS 00:00: [...] 400 MG TB24 00:00: 00 TAKE 1 2022-0 No 40 CAPSULE BY 9-20 MOUTH EVERY [...] 00 INHALE 2 2022-0 No PUFFS TWICE 8-31 A DAY 00:00: [...] 8-31 A DAY 00:00: 00 TAKE 1 2022-0 No 400 [...] MOUTH EVERY 00:00: DAY 00 Miralax 17 2-0 No gram/do gram/dose 8-12 se oral powder 00:00: 00 Dose 2-0 No Unknown 8 00:00: 00 docusate 2022-0 No 1mg sodium 100 8-12 mg capsule 00:00: 00 &lt 2022-0 No 400 8 00:00: 00 TAKE 1 TAB 2022-0 No 10 ONCE A DAY 8-12 (DAILY) FOR 00:00: HYPERTENSIO 00 N TAKE 1 2-0 No 5 TABLET BY 8-12 MOUTH EVERY 00:00: DAY 00 &lt 2022-0 No 400 8 00:00: 00 TAKE 1 2-0 No 5 TABLET BY 8-12 MOUTH EVERY 00:00: DAY 00 Dose 2022-0 No Unknown 8 00:00: 00 Dose 2022-0 No Unknown 11-25 00:00: 00 TAKE 1 2-0 No 1unit CAPSULE 8-12 TWICE 00:00: DAILY. 00 &lt 2022-0 No 400 8- 00:00: 00 TAKE 1 TAB 2022-0 No 10 ONCE A DAY 8-12 (DAILY) FOR 00:00: HYPERTENSIO 00 N TAKE 1 2022-0 No 5 TABLET BY 8-12 MOUTH EVERY 00:00: DAY 00 &lt 2022-0 No 400 8 00:00: 00 TAKE 1 2022-0 No 5 TABLET BY 8-12 MOUTH EVERY 00:00: DAY 00 Miralax 17 2-0 No gram/do gram/dose 8-12 se oral powder [...] MOUTH EVERY 00:00: DAY 00 Miralax 17 2-0 No gram/do gram/dose 8-12 se oral powder [...] No 400 8-12 00:00: 00 TAKE 1 2-0 No 5 TABLET BY [...] 8 00:00: 00 &lt 2022-0 No 10 11-21 00:00: 00 TAKE 3 2022-0 No 20 CAPSULES BY 8-08 MOUTH EVERY 00:00: DAY 00 TAKE 1 2022-0 No 20 CAPSULE BY 8-08 MOUTH EVERY 00:00: DAY 00 &lt 2022-0 No 300 8 00:00: 00 &lt 2022-0 No 10 11-21 00:00: 00 TAKE 3 2022-0 No 20 CAPSULES BY 8-08 MOUTH EVERY 00:00: DAY 00 TAKE 1 2022-0 No 20 CAPSULE BY 8-08 MOUTH EVERY 00:00: DAY 00 &lt 2022-0 No 300 8 00:00: 00 &lt 2022-0 No 10 11-21 [...] 8- 00:00: 00 &lt 2022-0 No 10 8 00:00: 00 TAKE 3 2022-0 No 20 CAPSULES BY 8-08 MOUTH EVERY 00:00: DAY 00 TAKE 1 2022-0 No 20 CAPSULE BY 8-08 MOUTH EVERY 00:00: DAY 00 &lt 2022-0 No 300 8- 00:00: 00 &lt 2022-0 No 10 8 [...] DAY 00 Dose 2022-0 No 20 Unknown 8-04 00:00: 00 TAKE 1 2022-0 No 400 CAPSULE BY 8-04 MOUTH TWICE 00:00: A DAY FOR 00 SCIATICA PAIN &lt 2022-0 No 10 11-17 00:00: 00 Dose 2022-0 No 300 Unknown 11-17 00:00: 00 TAKE 1 2022-0 No 30 TABLET BY 8- MOUTH TWICE [...] TAKE 1 2-0 No 30 TABLET BY 11-17 MOUTH TWICE [...] TAKE 1 2022-0 No 400 CAPSULE BY 8 MOUTH TWICE 00:00: A DAY FOR 00 SCIATICA PAIN &lt 2022-0 No 10 11-17 00:00: 00 Dose 2022-0 No 300 Unknown 11-17 00:00: 00 TAKE 1 2-0 No 30 TABLET BY 11-17 MOUTH TWICE 00:00: A DAY 00 TAKE 1 2-0 No 40 CAPSULE BY 11-17 MOUTH EVERY 00:00: DAY 00 Dose 2022-0 No 20 Unknown 11-17 00:00: 00 TAKE 1 2-0 No 400 CAPSULE BY 11-17 MOUTH TWICE [...] &lt 2022-0 No 60 11-16 00:00: 00 Dose 2022-0 No 300 Unknown 11-15 00:00: [...] THREE 00:00: TIMES A DAY 00 NEEDED budesonide- 2-0 No 2mcg/ac formoterol 7-31 tuation [...] 00:00: 00 budesonide- 2021-0 No 2mcg/ac formoterol 11-13 tuation HFA 160 00:00: mcg-4.5 00 mcg/actuati on aerosol inhaler cyclobenzap 2021-0 No 1mg rine 5 mg 11-13 tablet 00:00: 00 &lt 2022-0 No 300 7- 00:00: 00 &lt 2022-0 No 300 7 00:00: 00 &lt 2022-0 No 300 7 00:00: 00 &lt 2022-0 No 300 7- 00:00: 00 &lt 2022-0 No 300 7 00:00: 00 &lt 2-0 No 300 7 00:00: 00 &lt 2-0 No 300 7 00:00: 00 &lt 2022-0 No 300 7 00:00: 00 &lt 2022-0 No 300 7 00:00: 00 &lt 2022-0 No 7 00:00: 00 &lt 2022-0 No 10 7 00:00: 00 Dose 2022-0 No 1 Unknown 11-10 00:00: 00 TAKE 1 2021-0 No 15 TABLET BY 7 MOUTH THREE [...] TAKE 1 2-0 No 15 TABLET BY 7-28 MOUTH THREE [...] TAKE 3 2021-0 No 20 CAPSULES BY 11-01 MOUTH EVERY 00:00: DAY 00 &lt 2022-0 No 1 11-01 00:00: 00 TAKE 1 2-0 No 30 CAPSULE 11-01 EVERY DAY 00:00: AT 8AM AND 00 2 PM FOR ADD OR ADHD TAKE 3 2021-0 No 20 CAPSULES BY 7 MOUTH EVERY 00:00: DAY 00 &lt 2022-0 No 1 11-01 00:00: 00 TAKE 1 2-0 No 30 CAPSULE 11-01 EVERY DAY 00:00: AT 8AM AND 00 2 PM FOR ADD OR ADHD TAKE 3 2021-0 No 20 CAPSULES BY 7- MOUTH EVERY 00:00: DAY 00 &lt 2022-0 No 1 11-01 00:00: 00 TAKE 1 2-0 No 30 CAPSULE - EVERY DAY 00:00: AT 8AM AND 00 2 PM FOR ADD OR ADHD TAKE 3 2022-0 No 20 CAPSULES BY 7-19 MOUTH EVERY 00:00: DAY 00 &lt 2022-0 No 1 7 00:00: 00 TAKE 1 2022-0 No 30 CAPSULE 7- EVERY DAY 00:00: AT 8AM AND 00 2 PM FOR ADD OR ADHD TAKE 3 2022-0 No 20 CAPSULES BY 7-19 MOUTH EVERY 00:00: DAY 00 &lt 2022-0 No 1 11-01 00:00: 00 TAKE 1 2022-0 No 30 CAPSULE 7- EVERY DAY 00:00: AT 8AM AND 00 2 PM FOR ADD OR ADHD TAKE 3 2-0 No 20 CAPSULES BY 7-19 MOUTH EVERY 00:00: DAY 00 &lt 2022-0 No 1 11-01 00:00: 00 TAKE 1 2022-0 No 30 CAPSULE 7- EVERY DAY 00:00: AT 8AM AND 00 2 PM FOR ADD OR ADHD TAKE 3 2-0 No 20 CAPSULES BY 7-19 MOUTH EVERY 00:00: DAY 00 &lt 2022-0 No 1 11-01 00:00: 00 TAKE 1 2022-0 No 30 CAPSULE 7- EVERY DAY 00:00: AT 8AM AND 00 [...] 00 TAKE 1 2022-0 No 30 CAPSULE 7- EVERY DAY 00:00: AT 8AM AND 00 [...] 1mg 40 mg 6-10 capsule,del 00:00: ay release &lt 2022-0 No 6-10 00:00: 00 [...] 600 mg 2-31 tablet 00:00: 00 cyclobenzap 1-1 No 1mg rine 7.5 mg 2-31 tablet 00:00: 00 Dose 2021-1 No Unknown 2-31 00:00: 00 Dose 2021-1 No Unknown 2-31 00:00: 00 cyclobenzap 1-1 No 1mg rine 7.5 mg 2-31 tablet 00:00: 00 Dose 2021-1 No Unknown 2-31 00:00: 00 Dose 2021-1 No Unknown 2-31 00:00: 00 cyclobenzap 1-1 No 1mg rine 7.5 mg 2-31 tablet 00:00: 00 Dose 2020-1 No Unknown 2-31 00:00: 00 Dose 2020-1 No Unknown 2-31 00:00: 00 Dose 2020-1 No Unknown 2-31 00:00: 00 Dose 2020-1 No Unknown 2-31 00:00: 00 Dose 2020-1 No Unknown 2-31 00:00: 00 Dose 2020-1 No Unknown 2-31 00:00: 00 Dose 2020-1 No 50 Unknown 2-31 00:00: 00 ibuprofen 2020- No 1mg 600 mg 2-31 tablet 00:00: 00 cyclobenzap 2020- No 1mg rine 7.5 mg 2-31 tablet 00:00: 00 levothyroxi 2020- No 1mcg ne 150 mcg 2-31 tablet 00:00: 00 ibuprofen 2020- No 1mg 600 mg 2-31 tablet 00:00: 00 cyclobenzap 2020- No 1mg rine 7.5 mg 2-31 tablet 00:00: 00 levothyroxi 2020- No 1mcg ne 150 mcg 2-31 tablet 00:00: 00 ibuprofen 2020- No 1mg 600 mg 2-31 tablet 00:00: 00 cyclobenzap 2020- No 1mg rine 7.5 mg 2-31 tablet 00:00: 00 Dose 2020- No Unknown 2-31 00:00: 00 ibuprofen 2020- No 1mg 600 mg 2-31 tablet 00:00: 00 cyclobenzap 2020- No 1mg rine 7.5 mg 2-31 tablet 00:00: 00 levothyroxi 2020- No 1mcg ne 150 mcg 2-31 tablet [...] 7.5 mg 2-16 tablet 00:00: 00 ibuprofen 1-1 No 1mg 600 mg 2-16 tablet 00:00: 00 cyclobenzap 2020-1 No 1mg rine 7.5 mg 2-16 tablet 00:00: 00 ibuprofen 1-1 No 1mg 600 mg 2-16 tablet 00:00: 00 cyclobenzap 2020-1 No 1mg rine 7.5 mg 2-16 tablet 00:00: 00 ibuprofen 2020-1 No 1mg 600 mg 2-16 tablet 00:00: 00 cyclobenzap 2020-1 No 1mg rine 7.5 mg 2-16 tablet 00:00: 00 ibuprofen 1-1 No 1mg 600 mg 2-16 tablet 00:00: 00 cyclobenzap 2020-1 No 1mg rine 7.5 mg 2-16 tablet 00:00: 00 ibuprofen 2020-1 No 1mg 600 mg 2-16 tablet 00:00: 00 cyclobenzap 2020-1 No 1mg rine 7.5 mg 2-16 tablet 00:00: 00 ibuprofen 2020-1 No 1mg 600 mg 2-16 tablet 00:00: 00 cyclobenzap 2020-1 No 1mg rine 7.5 mg 2-16 tablet 00:00: 00 sumatriptan 1-1 No 1mg 50 mg 2-10 tablet 00:00: 00 sumatriptan 1-1 No 1mg 50 mg 2-10 tablet 00:00: 00 sumatriptan 1-1 No 1mg 50 mg 2-10 tablet 00:00: 00 sumatriptan 1-1 No 1mg 50 mg 2-10 tablet 00:00: 00 Dose 1-1 No Unknown 2-10 00:00: 00 sumatriptan 1-1 No 1mg 50 mg 2-10 tablet 00:00: 00 sumatriptan 1-1 No 1mg 50 mg 2-10 tablet 00:00: 00 sumatriptan 1-1 No 1mg 50 mg 2-10 tablet 00:00: 00 sumatriptan 1-1 No 1mg 50 mg 2-10 tablet 00:00: 00 Dose 1-1 No Unknown 2-08 00:00: 00 Seroquel 1-1 No 5mg 400 mg 2-08 tablet 00:00: [...] 2020- No Unknown 2-07 00:00: 00 gabapentin 2020-1 [...] 2020- No Unknown 2-07 00:00: 00 gabapentin 2020-1 [...] 2020- No Unknown 2-07 00:00: 00 gabapentin 2020- No 1mg 300 mg 2-07 capsule 00:00: 00 Dose 2020-04 No Unknown 2-07 00:00: 00 gemfibrozil 2020- [...] 2020- No Unknown 1-08 00:00: 00 Dose 2020-1 No Unknown 1-08 00:00: 00 Symbicort 2020-1 No 2mcg/ac 160 mcg-4.5 1-08 tuation mcg/actuati 00:00: on HFA aerosol inhaler Dose 2020-1 No Unknown 1-08 00:00: 00 Symbicort 2020-1 No 2mcg/ac 160 mcg-4.5 1-08 tuation mcg/actuati 00:00: on HFA aerosol inhaler Dose 2020-1 No Unknown 1-08 00:00: 00 Symbicort 2020-1 No 2mcg/ac 160 mcg-4.5 1-08 tuation mcg/actuati 00:00: on HFA aerosol inhaler Dose 2020-1 No Unknown 1-08 00:00: 00 Symbicort 2020-1 No 2mcg/ac 160 mcg-4.5 1-08 tuation mcg/actuati 00:00: on HFA aerosol inhaler Dose 2020- No Unknown 1-08 00:00: 00 buspirone 2020-1 [...] 2020- No Unknown 0-06 00:00: 00 ibuprofen 2020-04 No 1mg 600 mg 0-06 tablet 00:00: 00 Symbicort 2020-04 No 2mcg/ac 160 mcg-4.5 0-06 tuation mcg/actuati 00:00: on HFA 00 aerosol inhaler Dose 2020-04 No Unknown 0-06 00:00: 00 lisinopril 2020-04 No 1mg 10 mg 0-06 [...] 2020-1 No Unknown 0-06 00:00: 00 Symbicort 2020-04 No 2mcg/ac 160 [...] 916 00:00: 00 Dose 1-0 No Unknown 9 00:00: 00 Dose 1-0 No Unknown 916 00:00: 00 Dose 1-0 No Unknown 9 00:00: 00 Dose 1-0 No Unknown 9 00:00: 00 Dose 1-0 No Unknown 916 00:00: 00 Dose 1-0 No Unknown 916 00:00: 00 Dose 1-0 No Unknown 9 00:00: 00 Dose 1-0 No Unknown 9 00:00: 00 Dose 1-0 No Unknown 916 [...] 916 00:00: 00 Dose 1-0 No Unknown 9-16 00:00: 00 Dose 2021-0 [...] 16 00:00: 00 Dose 2021-0 No Unknown 12-27 [...] Dose 2021-0 No Unknown 7- 00:00: 00 buspirone 2021-0 No 1mg 10 [...] mg 6-04 tablet 00:00: 00 buspirone 5 2020-0 No 1mg mg tablet 09-08 00:00: 00 Seroquel 2020-0 No 1mg 400 mg - tablet 00:00: 00 Prozac 20 2020-0 No 3mg mg capsule 09-08 00:00: 00 lithium 1-0 No 1mg carbonate 5-26 300 mg 00:00: capsule 00 buspirone 5 2020-0 No 1mg mg tablet 09-08 00:00: 00 Seroquel 2020-0 No 1mg 400 mg - tablet 00:00: 00 Prozac 20 2020-0 No 3mg mg capsule 09-08 00:00: 00 lithium 2020-0 No 1mg carbonate - 300 mg 00:00: capsule 00 buspirone 5 2020-0 No 1mg mg tablet 09-08 00:00: 00 Seroquel 2020-0 No 1mg 400 mg - tablet 00:00: 00 Prozac 20 2020-0 No 3mg mg capsule 09-08 00:00: 00 lithium 2020-0 No 1mg carbonate - 300 mg 00:00: capsule 00 buspirone 5 2020-0 No 1mg mg tablet 09-08 00:00: 00 Seroquel 2020-0 No 1mg 400 mg - tablet 00:00: 00 Prozac 20 2020-0 No 3mg mg capsule 09-08 00:00: 00 lithium 1-0 No 1mg carbonate - 300 mg 00:00: capsule 00 buspirone 5 2020-0 No 1mg mg tablet 09-08 00:00: 00 Seroquel 2020-0 No 1mg 400 mg - tablet 00:00: [...] 300 mg 00:00: capsule 00 Prozac 20 1-0 No 3mg mg capsule 5- 00:00: 00 lithium 2021-0 No 1mg carbonate 5-26 300 mg 00:00: capsule 00 buspirone 5 1-0 No 1mg mg tablet 5 00:00: 00 Seroquel 2021-0 No 1mg 400 [...] Prozac 20 1-0 No 3mg mg capsule 5-23 00:00: 00 [...] mg oral 00:00: (7) suspension 00 montelukast 1-0 No 1mg 10 mg 5-20 tablet 00:00: 00 Dose 2021-0 No Unknown 5-20 00:00: 00 lisinopril 2021-0 No 1mg 10 mg 5-20 tablet 00:00: 00 levothyroxi 1-0 No [...] 2021-0 No Unknown 5-20 00:00: 00 levothyroxi 1-0 [...] mg oral 00:00: (7) suspension 00 Dose 1-0 No Unknown 5-20 00:00: [...] 2021-0 No Unknown 5-20 00:00: 00 Dose 2020-0 No Unknown 5-20 00:00: 00 gabapentin 1-0 No 1mg 300 mg 5-20 capsule 00:00: 00 gabapentin 1-0 No 1mg 300 mg 5-20 capsule 00:00: 00 Dose 1-0 No Unknown 5-20 00:00: 00 phenytoin 2020-0 No 1(21)/7 100 mg/4 mL 5-20 5 mg oral 00:00: (7) suspension 00 phenytoin 2020-0 No 1(21)/7 100 mg/4 mL 5-20 5 mg oral 00:00: (7) suspension 00 phenytoin 2020-0 No 1(21)/7 100 mg/4 mL 5-20 5 mg oral 00:00: (7) suspension 00 Dose 2020-0 No Unknown 5-20 00:00: 00 montelukast 2020-0 No 1mg 10 mg 5-20 tablet 00:00: 00 FLUTICASONE 2019-04 Yes [id number] SHAKE U nivers PROPIONATE 0-15 LIQUID AND ity of 50 00:00: USE 2 [place] mcg/actuati 00 SPRAYS IN Med ical on nasal EACH Branch spray NOSTRIL DAILY FLUTICASONE 2019-04 Yes [id number] SHAKE U nivers PROPIONATE 0-15 LIQUID AND ity of 50 00:00: USE 2 [place] mcg/actuati 00 SPRAYS IN Med ical on nasal EACH Branch spray NOSTRIL DAILY FLUTICASONE 2019-04 Yes [id number] SHAKE U nivers PROPIONATE 0-15 LIQUID AND ity of 50 00:00: USE 2 [place] mcg/actuati 00 SPRAYS IN Med ical on nasal EACH Branch spray NOSTRIL DAILY FLUTICASONE 2019-04 Yes [id number] SHAKE U nivers PROPIONATE 0-15 LIQUID AND ity of 50 00:00: USE 2 [place] mcg/actuati 00 SPRAYS IN Med ical on nasal EACH Branch spray NOSTRIL DAILY FLUTICASONE 2019-04 Yes [id number] SHAKE U nivers PROPIONATE 0-15 LIQUID AND ity of 50 00:00: USE 2 [place] mcg/actuati 00 SPRAYS IN Med ical on nasal EACH Branch spray NOSTRIL DAILY FLUTICASONE 2019-04 Yes [id number] SHAKE U nivers PROPIONATE 0-15 LIQUID AND ity of 50 00:00: USE 2 [place] mcg/actuati 00 SPRAYS IN Med ical on nasal EACH Branch spray NOSTRIL DAILY FLUTICASONE 2019-04 Yes [id number] SHAKE U nivers PROPIONATE 0-15 LIQUID AND ity of 50 00:00: USE 2 [place] mcg/actuati 00 SPRAYS IN Med ical on nasal EACH Branch spray NOSTRIL DAILY FLUTICASONE 2019-04 Yes [id number] SHAKE U nivers PROPIONATE 0-15 LIQUID AND ity of 50 00:00: USE 2 [place] mcg/actuati 00 SPRAYS IN Med ical on nasal EACH Branch spray NOSTRIL DAILY FLUTICASONE 2019-04 Yes [id number] SHAKE U nivers PROPIONATE 0-15 LIQUID AND ity of 50 00:00: USE 2 [place] mcg/actuati 00 SPRAYS IN Med ical on nasal EACH Branch spray NOSTRIL DAILY FLUTICASONE 2019-04 Yes [id number] SHAKE U nivers PROPIONATE 0-15 LIQUID AND ity of 50 00:00: USE 2 [place] mcg/actuati 00 SPRAYS IN Med ical on nasal EACH Branch spray NOSTRIL DAILY FLUTICASONE 2019-04 Yes [id number] SHAKE U nivers PROPIONATE 0-15 LIQUID AND ity of 50 00:00: USE 2 [place] mcg/actuati 00 SPRAYS IN Med ical on nasal EACH Branch spray NOSTRIL DAILY FLUTICASONE 2019-04 Yes [id number] SHAKE U nivers PROPIONATE 0-15 LIQUID AND ity of 50 00:00: USE 2 [place] mcg/actuati 00 SPRAYS IN Med ical on nasal EACH Branch spray NOSTRIL DAILY FLUTICASONE 2019-04 Yes [id number] SHAKE U nivers PROPIONATE 0-15 LIQUID AND ity of 50 00:00: USE 2 [place] mcg/actuati 00 SPRAYS IN Med ical on nasal EACH Branch spray NOSTRIL DAILY FLUTICASONE 2019-04 Yes [id number] SHAKE U nivers PROPIONATE 0-15 LIQUID AND ity of 50 00:00: USE 2 [place] mcg/actuati 00 SPRAYS IN Med ical on nasal EACH Branch spray NOSTRIL DAILY FLUTICASONE 2019-04 Yes [id number] SHAKE U nivers PROPIONATE 0-15 LIQUID AND ity of 50 00:00: USE 2 [place] mcg/actuati 00 SPRAYS IN Med ical on nasal EACH Branch spray NOSTRIL DAILY FLUTICASONE 2019-04 Yes [id number] SHAKE U nivers PROPIONATE 0-15 LIQUID AND ity of 50 00:00: USE 2 [place] mcg/actuati 00 SPRAYS IN Med ical on nasal EACH Branch spray NOSTRIL DAILY FLUTICASONE 2019-04 Yes [id number] SHAKE U nivers PROPIONATE 0-15 LIQUID AND ity of 50 00:00: USE 2 [place] mcg/actuati 00 SPRAYS IN Med ical on nasal EACH Branch spray NOSTRIL DAILY FLUTICASONE 2019-04 Yes [id number] SHAKE U nivers PROPIONATE 0-15 LIQUID AND ity of 50 00:00: USE 2 [place] mcg/actuati 00 SPRAYS IN Med ical on nasal EACH Branch spray NOSTRIL DAILY FLUTICASONE 2019-04 Yes [id number] SHAKE U nivers PROPIONATE 0-15 LIQUID AND ity of 50 00:00: USE 2 [place] mcg/actuati 00 SPRAYS IN Med ical on nasal EACH Branch spray NOSTRIL DAILY FLUTICASONE 2019-04 Yes [id number] SHAKE U nivers PROPIONATE 0-15 LIQUID AND ity of 50 00:00: USE 2 [place] mcg/actuati 00 SPRAYS IN Med ical on nasal EACH Branch spray NOSTRIL DAILY FLUTICASONE 2019-04 Yes [id number] SHAKE U nivers PROPIONATE 0-15 LIQUID AND ity of 50 00:00: USE 2 [place] mcg/actuati 00 SPRAYS IN Med ical on nasal EACH Branch spray NOSTRIL DAILY FLUTICASONE 2019-04 Yes [id number] SHAKE U nivers PROPIONATE 0-15 LIQUID AND ity of 50 00:00: USE 2 [place] mcg/actuati 00 SPRAYS IN Med ical on nasal EACH Branch spray NOSTRIL DAILY FLUTICASONE 2019-04 Yes [id number] SHAKE U nivers PROPIONATE 0-15 LIQUID AND ity of 50 00:00: USE 2 [place] mcg/actuati 00 SPRAYS IN Med ical on nasal EACH Branch spray NOSTRIL DAILY doxycycline Yes [id number] 100mg Take 1 [facility] monohydrate 8-20 capsule by it y of 100 mg 00:00: mouth 2 [place] capsule 00 (two) Medical times Branch daily. doxycycline 2020-0 Yes [id number] 100mg Take 1 [facility] monohydrate 8-20 capsule by it y of 100 mg 00:00: mouth 2 [place] capsule 00 (two) Medical times Branch daily. doxycycline 2020-0 Yes [id number] 100mg Take 1 [facility] monohydrate 8-20 capsule by it y of 100 mg 00:00: mouth 2 [place] capsule 00 (two) Medical times Branch daily. doxycycline 2020-0 Yes [id number] 100mg Take 1 [facility] monohydrate 8-20 capsule by it y of 100 mg 00:00: mouth 2 [place] capsule 00 (two) Medical times Branch daily. doxycycline 2020-0 Yes [id number] 100mg Take 1 [facility] monohydrate 8-20 capsule by it y of 100 mg 00:00: mouth 2 [place] capsule 00 (two) Medical times Branch daily. doxycycline 2020-0 Yes [id number] 100mg Take 1 [facility] monohydrate 8-20 capsule by it y of 100 mg 00:00: mouth 2 [place] capsule 00 (two) Medical times Branch daily. doxycycline 2020-0 Yes [id number] 100mg Take 1 [facility] monohydrate 8-20 capsule by it y of 100 mg 00:00: mouth 2 [place] capsule 00 (two) Medical times Branch daily. doxycycline 2020-0 Yes [id number] 100mg Take 1 [facility] monohydrate 8-20 capsule by it y of 100 mg 00:00: mouth 2 [place] capsule 00 (two) Medical times Branch daily. doxycycline 2020-0 Yes [id number] 100mg Take 1 [facility] monohydrate 8-20 capsule by it y of 100 mg 00:00: mouth 2 [place] capsule 00 (two) Medical times Branch daily. doxycycline 2020-0 Yes [id number] 100mg Take 1 [facility] monohydrate 8-20 capsule by it y of 100 mg 00:00: mouth 2 [place] capsule 00 (two) Medical times Branch daily. doxycycline 2020-0 2023- No [id number] 100mg Take 1 [facility] monohydrate 8-20 01-10 capsule by i ty of 100 mg 00:00: 00:00 mouth 2 [place] capsule 00 :00 (two) Medical times Branch daily. doxycycline 2020-0 2023- No [id number] 100mg Take 1 [facility] monohydrate 8-20 01-10 capsule by i ty of 100 mg 00:00: 00:00 mouth 2 [place] capsule 00 :00 (two) Medical times Branch daily. doxycycline 2020-0 2023- No [id number] 100mg Take 1 [facility] monohydrate 8-20 -10 capsule by i ty of 100 mg 00:00: 00:00 mouth 2 [place] capsule 00 :00 (two) Medical times Branch daily. doxycycline 2022- No [id number] 100mg Take 1 [facility] monohydrate 8-20 01-10 capsule by i ty of 100 mg 00:00: 00:00 mouth 2 [place] capsule 00 :00 (two) Medical times Branch daily. doxycycline 2022- No [id number] 100mg Take 1 [facility] monohydrate 8-20 -10 capsule by i ty of 100 mg 00:00: 00:00 mouth 2 [place] capsule 00 :00 (two) Medical times Branch daily. doxycycline 2022- No [id number] 100mg Take 1 [facility] monohydrate 8-20 -10 capsule by i ty of 100 mg 00:00: 00:00 mouth 2 [place] capsule 00 :00 (two) Medical times Branch daily. pantoprazol Yes [id number] 40mg Take 1 [facility] e 40 mg EC 8-18 tablet by ity of tablet 00:00: mouth once [place] 00 daily as Medical needed for Branch Indigestio n. LORazepam 1 Yes [id number] 1mg Take 1 [facility] mg tablet 8-18 tablet by ity o f 00:00: mouth once [place] 00 daily as Medical needed for Branch Anxiety or Agitation. pantoprazol Yes [id number] 40mg Take 1 [facility] e 40 mg EC 8-18 tablet by ity of tablet 00:00: mouth once [place] 00 daily as Medical needed for Branch Indigestio n. LORazepam 1 Yes [id number] 1mg Take 1 [facility] mg tablet 8-18 tablet by ity o f 00:00: mouth once [place] 00 daily as Medical needed for Branch Anxiety or Agitation. pantoprazol Yes [id number] 40mg Take 1 [facility] e 40 mg EC 8-18 tablet by ity of tablet 00:00: mouth once [place] 00 daily as Medical needed for Branch Indigestio n. LORazepam 1 Yes [id number] 1mg Take 1 [facility] mg tablet 8-18 tablet by ity o f 00:00: mouth once [place] 00 daily as Medical needed for Branch Anxiety or Agitation. pantoprazol Yes [id number] 40mg Take 1 [facility] e 40 mg EC 8-18 tablet by ity of tablet 00:00: mouth once [place] 00 daily as Medical needed for Branch Indigestio n. LORazepam 1 2019-0 Yes [id number] 1mg Take 1 [facility] mg tablet 8-18 tablet by ity o f 00:00: mouth once [place] 00 daily as Medical needed for Branch Anxiety or Agitation. pantoprazol 2020-0 Yes [id number] 40mg Take 1 [facility] e 40 mg EC 8-18 tablet by ity of tablet 00:00: mouth once [place] 00 daily as Medical needed for Branch Indigestio n. LORazepam 1 2019-0 Yes [id number] 1mg Take 1 [facility] mg tablet 8-18 tablet by ity o f 00:00: mouth once [place] 00 daily as Medical needed for Branch Anxiety or Agitation. pantoprazol 2019-0 Yes [id number] 40mg Take 1 [facility] e 40 mg EC 8-18 tablet by ity of tablet 00:00: mouth once [place] 00 daily as Medical needed for Branch Indigestio n. LORazepam 1 2019-0 Yes [id number] 1mg Take 1 [facility] mg tablet 8-18 tablet by ity o f 00:00: mouth once [place] 00 daily as Medical needed for Branch Anxiety or Agitation. pantoprazol 2019-0 Yes [id number] 40mg Take 1 [facility] e 40 mg EC 8-18 tablet by ity of tablet 00:00: mouth once [place] 00 daily as Medical needed for Branch Indigestio n. LORazepam 1 2019-0 Yes [id number] 1mg Take 1 [facility] mg tablet 8-18 tablet by ity o f 00:00: mouth once [place] 00 daily as Medical needed for Branch Anxiety or Agitation. pantoprazol 2020-0 Yes [id number] 40mg Take 1 [facility] e 40 mg EC 8-18 tablet by ity of tablet 00:00: mouth once [place] 00 daily as Medical needed for Branch Indigestio n. LORazepam 1 2019-0 Yes [id number] 1mg Take 1 [facility] mg tablet 8-18 tablet by ity o f 00:00: mouth once [place] 00 daily as Medical needed for Branch Anxiety or Agitation. pantoprazol 2020-0 Yes [id number] 40mg Take 1 [facility] e 40 mg EC 8-18 tablet by ity of tablet 00:00: mouth once [place] 00 daily as Medical needed for Branch Indigestio n. LORazepam 1 2019-0 Yes [id number] 1mg Take 1 [facility] mg tablet 8-18 tablet by ity o f 00:00: mouth once [place] 00 daily as Medical needed for Branch Anxiety or Agitation. pantoprazol 2019- Yes [id number] 40mg Take 1 [facility] e 40 mg EC 8-18 tablet by ity of tablet 00:00: mouth once [place] 00 daily as Medical needed for Branch Indigestio n. LORazepam 1 2019- Yes [id number] 1mg Take 1 [facility] mg tablet 8-18 tablet by ity o f 00:00: mouth once [place] 00 daily as Medical needed for Branch Anxiety or Agitation. pantoprazol 2019- Yes [id number] 40mg Take 1 [facility] e 40 mg EC 8-18 tablet by ity of tablet 00:00: mouth once 00 daily as Medical needed for Branch Indigestio n. LORazepam 1 Yes [id number] 1mg Take 1 [facility] mg tablet 8-18 tablet by ity o f 00:00: mouth once [place] 00 daily as Medical needed for Branch Anxiety or Agitation. pantoprazol Yes [id number] 40mg Take 1 [facility] e 40 mg EC 8-18 tablet by ity of tablet 00:00: mouth once 00 daily as Medical needed for Branch Indigestio n. LORazepam 1 2019- Yes [id number] 1mg Take 1 [facility] mg tablet 8-18 tablet by ity o f 00:00: mouth once [place] 00 daily as Medical needed for Branch Anxiety or Agitation. pantoprazol 2019- Yes [id number] 40mg Take 1 [facility] e 40 mg EC 8-18 tablet by ity of tablet 00:00: mouth once 00 daily as Medical needed for Branch Indigestio n. LORazepam 1 Yes [id number] 1mg Take 1 [facility] mg tablet 8-18 tablet by ity o f 00:00: mouth once [place] 00 daily as Medical needed for Branch Anxiety or Agitation. pantoprazol 2022- No [id number] 40mg Take 1 [facility] e 40 mg EC 8-18 01-10 tablet by ity of tablet 00:00: 00:00 mouth [place] 00 :00 daily as Medical needed for Branch Indigestio n. LORazepam 1 2022- No [id number] 1mg Take 1 [facility] mg tablet 8-18 01-10 tablet by ity of 00:00: 00:00 mouth once [place] 00 :00 daily as Medical needed for Branch Anxiety or Agitation. pantoprazol No [id number] 40mg Take 1 [facility] e 40 mg EC 12-0110 tablet by ity of tablet 00:00: 00:00 mouth [place] 00 :00 daily as Medical needed for Branch Indigestio n. LORazepam 1 No [id number] 1mg Take 1 [facility] mg tablet 12-0110 tablet by ity of 00:00: 00:00 mouth once [place] 00 :00 daily as Medical needed for Branch Anxiety or Agitation. pantoprazol No [id number] 40mg Take 1 [facility] e 40 mg EC 12-01 tablet by ity of tablet 00:00: 00:00 mouth once [place] 00 :00 daily as Medical needed for Branch Indigestio n. LORazepam 1 No [id number] 1mg Take 1 [facility] mg tablet 12-01 tablet by ity of 00:00: 00:00 mouth once [place] 00 :00 daily as Medical needed for Branch Anxiety or Agitation. pantoprazol No [id number] 40mg Take 1 [facility] e 40 mg EC 12-01 tablet by ity of tablet 00:00: 00:00 mouth once [place] 00 :00 daily as Medical needed for Branch Indigestio n. LORazepam 1 No [id number] 1mg Take 1 [facility] mg tablet 12-01 tablet by ity of 00:00: 00:00 mouth once [place] 00 :00 daily as Medical needed for Branch Anxiety or Agitation. pantoprazol No [id number] 40mg Take 1 [facility] e 40 mg EC 12-0110 tablet by ity of tablet 00:00: 00:00 mouth once [place] 00 :00 daily as Medical needed for Branch Indigestio n. LORazepam 1 No [id number] 1mg Take 1 [facility] mg tablet 12-01 tablet by ity of 00:00: 00:00 mouth once [place] 00 :00 daily as Medical needed for Branch Anxiety or Agitation. pantoprazol No [id number] 40mg Take 1 [facility] e 40 mg EC 12-01 tablet by ity of tablet 00:00: 00:00 mouth once [place] 00 :00 daily as Medical needed for Branch Indigestio n. LORazepam 1 2022- No [id number] 1mg Take 1 [facility] mg tablet 12-01 tablet by ity of 00:00: 00:00 mouth once [place] 00 :00 daily as Medical needed for Branch Anxiety or Agitation. doxycycline 2019- No [id number] 100mg Take 1 [facility] hyclate 100 12-01 capsule by i ty of mg capsule 00:00: 04:59 mouth [place] 00 :00 every 12 Medical (twelve) Branch hours for 14 days. doxycycline 2019- No [id number] 100mg Take 1 [facility] hyclate 100 12-01 capsule by i ty of mg capsule 00:00: 04:59 mouth [place] 00 :00 every 12 Medical (twelve) Branch hours for 14 days. doxycycline 2019- No [id number] 100mg Take 1 [facility] hyclate 100 12-01 capsule by i ty of mg capsule 00:00: 04:59 mouth [place] 00 :00 every 12 Medical (twelve) Branch hours for 14 days. doxycycline 2019- No [id number] 100mg Take 1 [facility] hyclate 100 12-01 08-20 capsule by i ty of mg capsule 00:00: 00:00 mouth [place] 00 :00 every 12 Medical (twelve) Branch hours for 14 days. FLUoxetine 2020-0 Yes 60mg Take 60 mg U nivers 60 mg 7-23 by mouth ity of tablet 00:00: daily. [facility] Branch FLUoxetine 2020-0 Yes 60mg Take 60 mg U nivers 60 mg 7-23 by mouth ity of tablet 00:00: daily. [place] [facility] Branch FLUoxetine 2020-0 Yes 60mg Take 60 mg U nivers 60 mg 7-23 by mouth ity of tablet 00:00: daily. [facility] Branch FLUoxetine 2020-0 Yes 60mg Take 60 mg U nivers 60 mg 7-23 by mouth ity of tablet 00:00: daily. [place] [facility] Branch FLUoxetine 2020-0 Yes 60mg Take 60 mg U nivers 60 mg 7-23 by mouth ity of tablet 00:00: daily. [address] FLUoxetine 2020-0 Yes 60mg Take 60 mg U nivers 60 mg 7-23 by mouth ity of tablet 00:00: daily. [place] [facility] FLUoxetine 2020-0 Yes 60mg Take 60 mg U nivers 60 mg 7-23 by mouth ity of tablet 00:00: daily. [address] FLUoxetine 2020-0 Yes 60mg Take 60 mg U nivers 60 mg 7-23 by mouth ity of tablet 00:00: daily. [place] [facility] FLUoxetine 2020-0 Yes 60mg Take 60 mg U nivers 60 mg 7-23 by mouth ity of tablet 00:00: daily. [address] FLUoxetine 2020-0 Yes 60mg Take 60 mg U nivers 60 mg 7-23 by mouth ity of tablet 00:00: daily. [address] FLUoxetine 2020-0 Yes 60mg Take 60 mg U nivers 60 mg 7-23 by mouth ity of tablet 00:00: daily. [address] FLUoxetine 2020-0 Yes 60mg Take 60 mg U nivers 60 mg 7-23 by mouth ity of tablet 00:00: daily. [address] FLUoxetine 2020-0 Yes 60mg Take 60 mg U nivers 60 mg 7-23 by mouth ity of tablet 00:00: daily. [address] FLUoxetine 2020-0 Yes 60mg Take 60 mg U nivers 60 mg 7-23 by mouth ity of tablet 00:00: daily. [address] FLUoxetine 2020-0 Yes 60mg Take 60 mg U nivers 60 mg 7-23 by mouth ity of tablet 00:00: daily. [address] FLUoxetine 2020-0 Yes 60mg Take 60 mg U nivers 60 mg 7-23 by mouth ity of tablet 00:00: daily. [address] FLUoxetine 2020-0 Yes 60mg Take 60 mg U nivers 60 mg 7-23 by mouth ity of tablet 00:00: daily. [address] FLUoxetine 2020-0 Yes 60mg Take 60 mg U nivers 60 mg 7-23 by mouth ity of tablet 00:00: daily. [address] FLUoxetine 2020-0 Yes 60mg Take 60 mg U nivers 60 mg 7-23 by mouth ity of tablet 00:00: daily. [address] FLUoxetine 2020-0 Yes 60mg Take 60 mg U nivers 60 mg 7-23 by mouth ity of tablet 00:00: daily. [place] [facility] FLUoxetine 2020-0 Yes 60mg Take 60 mg U nivers 60 mg 7-23 by mouth ity of tablet 00:00: daily. [place] [facility] FLUoxetine 2020-0 Yes 60mg Take 60 mg U nivers 60 mg 7-23 by mouth ity of tablet 00:00: daily. [place] [facility] FLUoxetine 2020-0 Yes 60mg Take 60 mg U nivers 60 mg 7-23 by mouth ity of tablet 00:00: daily. [place] [facility] FLUoxetine 2020-0 Yes 60mg Take 60 mg U nivers 60 mg 7-23 by mouth ity of tablet 00:00: daily. [place] [facility] FLUoxetine 2020-0 Yes 60mg Take 60 mg U nivers 60 mg 7-23 by mouth ity of tablet 00:00: daily. [place] [facility] FLUoxetine 2020-0 Yes 60mg Take 60 mg U nivers 60 mg 7-23 by mouth ity of tablet 00:00: daily. [address] FLUoxetine 2020-0 Yes 60mg Take 60 mg U nivers 60 mg 7-23 by mouth ity of tablet 00:00: daily. [place] [facility] FLUoxetine 2020-0 Yes 60mg Take 60 mg U nivers 60 mg 7-23 by mouth ity of tablet 00:00: daily. [place] [facility] FLUoxetine 2020-0 Yes 60mg Take 60 mg U nivers 60 mg 7-23 by mouth ity of tablet 00:00: daily. [place] [facility] FLUoxetine 2020-0 Yes 60mg Take 60 mg U nivers 60 mg 7-23 by mouth ity of tablet 00:00: daily. [address] FLUoxetine 2020-0 Yes 60mg Take 60 mg U nivers 60 mg 7-23 by mouth ity of tablet 00:00: daily. [address] FLUoxetine 2020-0 Yes 60mg Take 60 mg U nivers 60 mg 7-23 by mouth ity of tablet 00:00: daily. [address] QUEtiapine 2020-0 Yes 200mg Take 200 Un maria [place] 200 mg 7-21 mg by ity of tablet 00:00: mouth at [place] [address] bedtime. [facility] Branch QUEtiapine 2020-0 Yes 200mg Take 200 [facility] [place] 200 mg 7-21 mg by ity of tablet 00:00: mouth at [place] [address] bedtime. Medical Branch QUEtiapine 2020-0 Yes 200mg Take 200 [facility] [place] 200 mg 7-21 mg by ity of tablet 00:00: mouth at [place] [address] bedtime. Medical Branch QUEtiapine 2020-0 Yes 200mg Take 200 [facility] [place] 200 mg 7-21 mg by ity of tablet 00:00: mouth at [place] [address] bedtime. Medical Branch QUEtiapine 2020-0 Yes 200mg Take 200 Un [place] 200 mg 7-21 mg by ity of tablet 00:00: mouth at [place] [address] bedtime. Medical Branch QUEtiapine 2020-0 Yes 200mg Take 200 [facility] [place] 200 mg 7-21 mg by ity of tablet 00:00: mouth at [place] [address] bedtime. Medical Branch QUEtiapine 2020-0 Yes 200mg Take 200 [facility] [place] 200 mg 7-21 mg by ity of tablet 00:00: mouth at [place] [address] bedtime. Medical Branch QUEtiapine 2020-0 Yes 200mg Take 200 [facility] [place] 200 mg 7-21 mg by ity of tablet 00:00: mouth at [place] [address] bedtime. Medical Branch QUEtiapine 2020-0 Yes 200mg Take 200 [facility] [place] 200 mg 7-21 mg by ity of tablet 00:00: mouth at [place] [address] bedtime. Medical Branch QUEtiapine 2020-0 Yes 200mg Take 200 [place] 200 mg 7-21 mg by ity of tablet 00:00: mouth at [place] [address] bedtime. Medical Branch QUEtiapine 2020-0 Yes 200mg Take 200 [facility] [place] 200 mg 7-21 mg by ity of tablet 00:00: mouth at [place] [address] bedtime. Medical Branch QUEtiapine 2020-0 Yes 200mg Take 200 [facility] [place] 200 mg 7-21 mg by ity of tablet 00:00: mouth at [place] [address] bedtime. Medical Branch QUEtiapine 2020-0 Yes 200mg Take 200 [facility] [place] 200 mg 7-21 mg by ity of tablet 00:00: mouth at [place] [address] bedtime. Medical Branch QUEtiapine 2020-0 2023- No 200mg Take 200 U nivers 200 mg 7-21 01-10 mg by ity of tablet 00:00: 00:00 mouth at [place] 00 :00 bedtime. Medical Branch QUEtiapine 2020-0 2023- No 200mg Take 200 U nivers 200 mg 7-21 01-10 mg by ity of tablet 00:00: 00:00 mouth at [place] 00 :00 bedtime. Medical Branch QUEtiapine 2019-2022- No 200mg Take 200 U nivers 200 mg 7-21 01-10 mg by ity of tablet 00:00: 00:00 mouth at [place] 00 :00 bedtime. Medical Branch QUEtiapine 2022- No 200mg Take 200 U nivers 200 mg 7-21 01-10 mg by ity of tablet 00:00: 00:00 mouth at [place] 00 :00 bedtime. Medical Branch QUEtiapine 2019-2022- No 200mg Take 200 U nivers 200 mg 7-21 01-10 mg by ity of tablet 00:00: 00:00 mouth at [place] 00 :00 bedtime. Medical Branch QUEtiapine 2019-2022- No 200mg Take 200 U nivers 200 mg 7-21 01-10 mg by ity of tablet 00:00: 00:00 mouth at [place] 00 :00 bedtime. Medical Branch pantoprazol Yes [id number] 40mg Take 1 [facility] e 40 mg EC 6-23 tablet by ity of tablet 00:00: mouth once [place] 00 daily as Medical needed for Branch Indigestio n. pantoprazol Yes [id number] 40mg Take 1 [facility] e 40 mg EC 6-23 tablet by ity of tablet 00:00: mouth once [place] 00 daily as Medical needed for Branch Indigestio n. pantoprazol Yes [id number] 40mg Take 1 [facility] e 40 mg EC 6-23 tablet by ity of tablet 00:00: mouth once 00 daily as Medical needed for Branch Indigestio n. pantoprazol 2019- No [id number] 40mg Take 1 [facility] e 40 mg EC 6-23 08-18 tablet by ity of tablet 00:00: 00:00 mouth once [place] 00 :00 daily as Medical needed for Branch Indigestio n. pantoprazol 2020- No [id number] 40mg Take 1 [facility] e 40 mg EC 6-23 08-18 tablet by ity of tablet 00:00: 00:00 mouth [place] 00 :00 daily as Medical needed for Branch Indigestio n. fluticasone 2019- Yes [id number] 2{spray Use 2 [facility] propionate 6-16 } Sprays in ity of (FLONASE 00:00: each [place] ALLERGY 00 nostril Medical RELIEF) 50 daily. Branch mcg/actuati on nasal spray LORazepam 1 2020-0 Yes [id number] 1mg Take 1 [facility] mg tablet 6-16 tablet by ity o f 00:00: mouth once [place] 00 daily as Medical needed for Branch Anxiety or Agitation. fluticasone 2020-0 Yes [id number] 2{spray Use 2 [facility] propionate 6-16 } Sprays in ity of (FLONASE 00:00: each [place] ALLERGY 00 nostril Medical RELIEF) 50 daily. Branch mcg/actuati on nasal spray LORazepam 1 2020-0 Yes [id number] 1mg Take 1 [facility] mg tablet 6-16 tablet by ity o f 00:00: mouth once [place] 00 daily as Medical needed for Branch Anxiety or Agitation. fluticasone 2020-0 Yes [id number] 2{spray Use 2 [facility] propionate 6-16 } Sprays in ity of (FLONASE 00:00: each [place] ALLERGY 00 nostril Medical RELIEF) 50 daily. Branch mcg/actuati on nasal spray LORazepam 1 2020-0 Yes [id number] 1mg Take 1 [facility] mg tablet 6-16 tablet by ity o f 00:00: mouth once [place] 00 daily as Medical needed for Branch Anxiety or Agitation. fluticasone 2020-0 Yes [id number] 2{spray Use 2 [facility] propionate 6-16 } Sprays in ity of (FLONASE 00:00: each [place] ALLERGY 00 nostril Medical RELIEF) 50 daily. Branch mcg/actuati on nasal spray LORazepam 1 2020-0 Yes [id number] 1mg Take 1 [facility] mg tablet 6-16 tablet by ity o f 00:00: mouth once [place] 00 daily as Medical needed for Branch Anxiety or Agitation. fluticasone 2020-0 Yes [id number] 2{spray Use 2 [facility] propionate 6-16 } Sprays in ity of (FLONASE 00:00: each [place] ALLERGY 00 nostril Medical RELIEF) 50 daily. Branch mcg/actuati on nasal spray fluticasone 2020-0 Yes [id number] 2{spray Use 2 [facility] propionate 6-16 } Sprays in ity of (FLONASE 00:00: each [place] ALLERGY 00 nostril Medical RELIEF) 50 daily. Branch mcg/actuati on nasal spray fluticasone 2020-0 Yes [id number] 2{spray Use 2 [facility] propionate 6-16 } Sprays in ity of (FLONASE 00:00: each [place] ALLERGY 00 nostril Medical RELIEF) 50 daily. Branch mcg/actuati on nasal spray fluticasone 2020-0 Yes [id number] 2{spray Use 2 [facility] propionate 6-16 } Sprays in ity of (FLONASE 00:00: each [place] ALLERGY 00 nostril Medical RELIEF) 50 daily. Branch mcg/actuati on nasal spray fluticasone 2020-0 Yes [id number] 2{spray Use 2 [facility] propionate 6-16 } Sprays in ity of (FLONASE 00:00: each [place] ALLERGY 00 nostril Medical RELIEF) 50 daily. Branch mcg/actuati on nasal spray fluticasone 2020-0 Yes [id number] 2{spray Use 2 [facility] propionate 6-16 } Sprays in ity of (FLONASE 00:00: each [place] ALLERGY 00 nostril Medical RELIEF) 50 daily. Branch mcg/actuati on nasal spray fluticasone 2020-0 Yes [id number] 2{spray Use 2 [facility] propionate 6-16 } Sprays in ity of (FLONASE 00:00: each [place] ALLERGY 00 nostril Medical RELIEF) 50 daily. Branch mcg/actuati on nasal spray fluticasone 2020-0 Yes [id number] 2{spray Use 2 [facility] propionate 6-16 } Sprays in ity of (FLONASE 00:00: each [place] ALLERGY 00 nostril Medical RELIEF) 50 daily. Branch mcg/actuati on nasal spray fluticasone 2020-0 Yes [id number] 2{spray Use 2 [facility] propionate 6-16 } Sprays in ity of (FLONASE 00:00: each [place] ALLERGY 00 nostril Medical RELIEF) 50 daily. Branch mcg/actuati on nasal spray fluticasone 2020-0 2020- No [id number] 2{spray Use 2 [facility] propionate 6-16 10-15 } Sprays in ity of (FLONASE 00:00: 00:00 each [place] ALLERGY 00 :00 nostril Medical RELIEF) 50 daily. Branch mcg/actuati on nasal spray LORazepam 1 2019-0 2020- No [id number] 1mg Take 1 [facility] mg tablet 6-16 08-18 tablet by ity of 00:00: 00:00 mouth once [place] 00 :00 daily as Medical needed for Branch Anxiety or Agitation. LORazepam 1 2020-0 2020- No [id number] 1mg Take 1 [facility] mg tablet 6-16 [...] Medical times Branch daily. FLUoxetine 2020-0 Yes [id number] 60mg Take 3 [facility] nivers 20 mg 6-11 capsules ity of capsule 00:00: by mouth [place] 00 daily. Medical Branch FLUoxetine 2020-0 Yes [id number] 60mg Take 3 [facility] nivers 20 mg 6-11 capsules ity of capsule 00:00: by mouth 00 daily. Medical Branch FLUoxetine 2020-0 Yes [id number] 60mg Take 3 [facility] nivers 20 mg 6-11 capsules ity of capsule 00:00: by mouth [place] 00 daily. Medical Branch FLUoxetine 2019-0 Yes [id number] 60mg Take 3 [facility] nivers 20 mg 6-11 capsules ity of capsule 00:00: by mouth [place] 00 daily. Medical Branch FLUoxetine 2019-0 Yes [id number] 60mg Take 3 [facility] nivers 20 mg 6-11 capsules ity of capsule 00:00: by mouth [place] 00 daily. Medical Branch FLUoxetine 2019-0 2020- No [id number] 60mg Take 3 [facility] 20 mg 6-11 08-18 capsules ity of capsule 00:00: 00:00 by mouth [place] 00 :00 daily. Medical Branch FLUoxetine 2019-0 2020- No [id number] 60mg Take 3 [facility] 20 mg 6-11 08-18 capsules ity of capsule 00:00: 00:00 by mouth [place] 00 :00 daily. Medical Branch pantoprazol 0 Yes [id number] 40mg Take 1 [facility] e 40 mg EC 5-21 tablet by ity of tablet 00:00: mouth 00 daily as Medical needed for Branch Indigestio n. pantoprazol 2019-0 Yes [id number] 40mg Take 1 [facility] e 40 mg EC 5-21 tablet by ity of tablet 00:00: mouth once 00 daily as Medical needed for Branch Indigestio n. pantoprazol 2019-0 Yes [id number] 40mg Take 1 [facility] e 40 mg EC 5-21 tablet by ity of tablet 00:00: mouth once 00 daily as Medical needed for Branch Indigestio n. pantoprazol 2019-0 2020- No [id number] 40mg Take 1 [facility] e 40 mg EC 5-21 -23 tablet by [facility] of tablet 00:00: 00:00 mouth [place] 00 :00 daily as Medical needed for Branch Indigestio n. cariprazine 0 2020- No 10mg Take 10 mg [facility] HCl 5-19 05-19 by mouth ity of (VRAYLAR 16:24: 00:00 at [facility]) 07 :00 bedtime. Medical Branch phenytoin 2019-0 Yes [id number] 400mg Take 4 [facility] nivers Extended 5-19 capsules ity of (DILANTIN) 00:00: by mouth [place] 100 mg 00 daily. Medical capsule Branch levothyroxi 2019-0 Yes [id number] 150ug Take 1 [facility] ne 150 mcg 5-19 tablet by ity of tablet 00:00: mouth 00 every Medical morning. Branch cholestyram 2020-0 Yes [id number] 2g Take 0.5 [facility] ine 4 gram 5-19 Packets by ity of powder 00:00: mouth 3 (three) Medical times Branch daily with meals. phenytoin 2020-0 Yes [id number] 400mg Take 4 [facility] nivers Extended 5-19 capsules ity of (DILANTIN) 00:00: by mouth [place] 100 mg 00 daily. Medical capsule Branch levothyroxi 2020-0 Yes [id number] 150ug Take 1 [facility] ne 150 mcg 5-19 tablet by ity of tablet 00:00: mouth every Medical morning. Branch cholestyram 2020-0 Yes [id number] 2g Take 0.5 [facility] ine 4 gram 5-19 Packets by ity of powder 00:00: mouth (three) Medical times Branch daily with meals. phenytoin 2020-0 Yes [id number] 400mg Take 4 [facility] nivers Extended 5-19 capsules ity of (DILANTIN) 00:00: by mouth [place] 100 mg 00 daily. Medical capsule Branch levothyroxi 2020-0 Yes [id number] 150ug Take 1 [facility] ne 150 mcg 5-19 tablet by ity of tablet 00:00: mouth [place] every Medical morning. Branch cholestyram 2020-0 Yes [id number] 2g Take 0.5 [facility] ine 4 gram 5-19 Packets by ity of powder 00:00: mouth (three) Medical times Branch daily with meals. phenytoin 2020-0 Yes [id number] 400mg Take 4 [facility] nivers Extended 5-19 capsules ity of (DILANTIN) 00:00: by mouth [place] 100 mg 00 daily. Medical capsule Branch levothyroxi 2020-0 Yes [id number] 150ug Take 1 [facility] ne 150 mcg 5-19 tablet by ity of tablet 00:00: mouth [place] every Medical morning. Branch cholestyram 2020-0 Yes [id number] 2g Take 0.5 [facility] ine 4 gram 5-19 Packets by ity of powder 00:00: mouth 3 (three) Medical times Branch daily with meals. phenytoin 2020-0 Yes [id number] 400mg Take 4 [facility] nivers Extended 5-19 capsules ity of (DILANTIN) 00:00: by mouth [place] 100 mg 00 daily. Medical capsule Branch levothyroxi 2020-0 Yes [id number] 150ug Take 1 [facility] ne 150 mcg 5-19 tablet by ity of tablet 00:00: mouth every Medical morning. Branch cholestyram 2020-0 Yes [id number] 2g Take 0.5 [facility] ine 4 gram 5-19 Packets by ity of powder 00:00: mouth (three) Medical times Branch daily with meals. phenytoin 2020-0 Yes [id number] 400mg Take 4 [facility] nivers Extended 5-19 capsules ity of (DILANTIN) 00:00: by mouth [place] 100 mg 00 daily. Medical capsule Branch levothyroxi 2020-0 Yes [id number] 150ug Take 1 [facility] ne 150 mcg 5-19 tablet by ity of tablet 00:00: mouth every Medical morning. Branch cholestyram 2020-0 Yes [id number] 2g Take 0.5 [facility] ine 4 gram 5-19 Packets by ity of powder 00:00: mouth (three) Medical times Branch daily with meals. phenytoin 2020-0 Yes [id number] 400mg Take 4 [facility] nivers Extended 5-19 capsules ity of (DILANTIN) 00:00: by mouth [place] 100 mg 00 daily. Medical capsule Branch levothyroxi 2020-0 Yes [id number] 150ug Take 1 [facility] ne 150 mcg 5-19 tablet by ity of tablet 00:00: mouth every Medical morning. Branch cholestyram 2020-0 Yes [id number] 2g Take 0.5 [facility] ine 4 gram 5-19 Packets by ity of powder 00:00: mouth (three) Medical times Branch daily with meals. phenytoin 2020-0 Yes [id number] 400mg Take 4 [facility] nivers Extended 5-19 capsules ity of (DILANTIN) 00:00: by mouth [place] 100 mg 00 daily. Medical capsule Branch levothyroxi 2020-0 Yes [id number] 150ug Take 1 [facility] ne 150 mcg 5-19 tablet by ity of tablet 00:00: mouth every Medical morning. Branch cholestyram 2020-0 Yes [id number] 2g Take 0.5 [facility] ine 4 gram 5-19 Packets by ity of powder 00:00: mouth (three) Medical times Branch daily with meals. phenytoin 2020-0 Yes [id number] 400mg Take 4 [facility] nivers Extended 5-19 capsules ity of (DILANTIN) 00:00: by mouth [place] 100 mg 00 daily. Medical capsule Branch levothyroxi 2020-0 Yes [id number] 150ug Take 1 [facility] ne 150 mcg 5-19 tablet by ity of tablet 00:00: mouth [place] every Medical morning. Branch cholestyram 2020-0 Yes [id number] 2g Take 0.5 [facility] ine 4 gram 5-19 Packets by ity of powder 00:00: mouth 3 (three) Medical times Branch daily with meals. phenytoin 2020-0 Yes [id number] 400mg Take 4 [facility] nivers Extended 5-19 capsules ity of (DILANTIN) 00:00: by mouth [place] 100 mg 00 daily. Medical capsule Branch levothyroxi 2020-0 Yes [id number] 150ug Take 1 [facility] ne 150 mcg 5-19 tablet by ity of tablet 00:00: mouth [place] every Medical morning. Branch cholestyram 2020-0 Yes [id number] 2g Take 0.5 [facility] ine 4 gram 5-19 Packets by ity of powder 00:00: mouth 3 (three) Medical times Branch daily with meals. phenytoin 2020-0 Yes [id number] 400mg Take 4 [facility] nivers Extended 5-19 capsules ity of (DILANTIN) 00:00: by mouth [place] 100 mg 00 daily. Medical capsule Branch levothyroxi 2020-0 Yes [id number] 150ug Take 1 [facility] ne 150 mcg 5-19 tablet by ity of tablet 00:00: mouth [place] every Medical morning. Branch cholestyram 2020-0 Yes [id number] 2g Take 0.5 [facility] ine 4 gram 5-19 Packets by ity of powder 00:00: mouth 3 (three) Medical times Branch daily with meals. nystatin 2020-0 Yes [id number] Apply to [facility] 100,000 5-19 area(s) 2 ity of unit/gram 00:00: (two) [place] powder 00 times Medical daily. Branch phenytoin 2020-0 Yes [id number] 400mg Take 4 [facility] nivers Extended 5-19 capsules ity of (DILANTIN) 00:00: by mouth [place] 100 mg 00 daily. Medical capsule Branch FLUoxetine 2020-0 Yes 60mg Take 3 [facility] 20 mg 5-19 capsules ity of capsule 00:00: by mouth [place] 00 daily. Medical Branch levothyroxi 2020-0 Yes [id number] 150ug Take 1 [facility] ne 150 mcg 5-19 tablet by ity of tablet 00:00: mouth [place] 00 every Medical morning. Branch cholestyram 2020-0 Yes [id number] 2g Take 0.5 [facility] ine 4 gram 5-19 Packets by ity of powder 00:00: mouth 3 [place] 00 (three) Medical times Branch daily with meals. LORazepam 1 2019-0 Yes [id number] 1mg Take 1 [facility] mg tablet 5-19 tablet by ity o f 00:00: mouth once [place] 00 daily as Medical needed for Branch Anxiety or Agitation. nystatin 2020-0 Yes [id number] Apply to [facility] 100,000 519 area(s) 2 ity of unit/gram 00:00: (two) [place] powder 00 times Medical daily. Branch phenytoin 2020-0 Yes [id number] 400mg Take 4 [facility] nivers Extended 5-19 capsules ity of (DILANTIN) 00:00: by mouth [place] 100 mg 00 daily. Medical capsule Branch levothyroxi 2020-0 Yes [id number] 150ug Take 1 [facility] ne 150 mcg 5-19 tablet by ity of tablet 00:00: mouth [place] 00 every Medical morning. Branch cholestyram 2020-0 Yes [id number] 2g Take 0.5 [facility] ine 4 gram 5-19 Packets by ity of powder 00:00: mouth 3 [place] 00 (three) Medical times [place] daily with meals. LORazepam 1 2019-0 Yes [id number] 1mg Take 1 [facility] mg tablet 5-19 tablet by ity o f 00:00: mouth once [place] 00 daily as Medical needed for Branch Anxiety or Agitation. nystatin 2020-0 Yes [id number] Apply to [facility] [employer] 100,000 5-19 area(s) 2 ity of unit/gram 00:00: (two) [place] powder 00 times Medical daily. Branch phenytoin 2020-0 Yes [id number] 400mg Take 4 [facility] nivers Extended 5-19 capsules ity of (DILANTIN) 00:00: by mouth [place] 100 mg 00 daily. Medical capsule Branch levothyroxi 2020-0 Yes [id number] 150ug Take 1 [facility] ne 150 mcg 5-19 tablet by ity of tablet 00:00: mouth [place] 00 every Medical morning. Branch cholestyram 2020-0 Yes [id number] 2g Take 0.5 [facility] ine 4 gram 5-19 Packets by ity of powder 00:00: mouth 3 (three) Medical times [place] daily with meals. nystatin 2020-0 Yes [id number] Apply to [facility] nivers 100,000 5-19 area(s) 2 ity of unit/gram 00:00: (two) [place] powder 00 times Medical daily. Branch phenytoin 2020-0 Yes [id number] 400mg Take 4 [facility] nivers Extended 5-19 capsules ity of (DILANTIN) 00:00: by mouth [place] 100 mg 00 daily. Medical capsule Branch levothyroxi 2020-0 Yes [id number] 150ug Take 1 [facility] ne 150 mcg 5-19 tablet by ity of tablet 00:00: mouth 00 every Medical morning. Branch cholestyram 2020-0 Yes [id number] 2g Take 0.5 [facility] ine 4 gram 5-19 Packets by ity of powder 00:00: mouth (three) Medical times [place] daily with meals. nystatin 2020-0 Yes [id number] Apply to [facility] nivers 100,000 5-19 area(s) 2 ity of unit/gram 00:00: (two) [place] powder 00 times Medical daily. Branch phenytoin 2020-0 Yes [id number] 400mg Take 4 [facility] nivers Extended 5-19 capsules ity of (DILANTIN) 00:00: by mouth [place] 100 mg 00 daily. Medical capsule Branch levothyroxi 2020-0 Yes [id number] 150ug Take 1 [facility] ne 150 mcg 5-19 tablet by ity of tablet 00:00: mouth 00 every Medical morning. Branch cholestyram 2020-0 Yes [id number] 2g Take 0.5 [facility] ine 4 gram 5-19 Packets by ity of powder 00:00: mouth 3 (three) Medical times [place] daily with meals. nystatin 2020-0 Yes [id number] Apply to [facility] nivers 100,000 5-19 area(s) 2 ity of unit/gram 00:00: (two) [place] powder 00 times Medical daily. Branch phenytoin 2020-0 Yes [id number] 400mg Take 4 [facility] nivers Extended 5-19 capsules ity of (DILANTIN) 00:00: by mouth [place] 100 mg 00 daily. Medical capsule Branch levothyroxi 2020-0 Yes [id number] 150ug Take 1 [facility] ne 150 mcg 5-19 tablet by ity of tablet 00:00: mouth [place] 00 every Medical morning. Branch cholestyram 2020-0 Yes [id number] 2g Take 0.5 [facility] ine 4 gram 5-19 Packets by ity of powder 00:00: mouth 3 (three) Medical times Branch daily with meals. nystatin 2020-0 Yes [id number] Apply to [email or web address] 100,000 5 area(s) 2 ity of unit/gram 00:00: (two) [place] powder 00 times Medical daily. Branch phenytoin 2020-0 Yes [id number] 400mg Take 4 [facility] nivers Extended 5-19 capsules ity of (DILANTIN) 00:00: by mouth [place] 100 mg 00 daily. Medical capsule Branch levothyroxi 2019-0 Yes [id number] 150ug Take 1 [facility] ne 150 mcg 5-19 tablet by ity of tablet 00:00: mouth [place] every Medical morning. Branch cholestyram 2019-0 Yes [id number] 2g Take 0.5 [facility] ine 4 gram 5-19 Packets by ity of powder 00:00: mouth 3 (three) Medical times [place] daily with meals. phenytoin 2019-0 Yes [id number] 400mg Take 4 [facility] nivers Extended 5-19 capsules ity of (DILANTIN) 00:00: by mouth [place] 100 mg 00 daily. Medical capsule Branch levothyroxi 2019-0 Yes [id number] 150ug Take 1 [facility] ne 150 mcg 5-19 tablet by ity of tablet 00:00: mouth [place] 00 every Medical morning. Branch cholestyram 2020-0 Yes [id number] 2g Take 0.5 [facility] ine 4 gram 5-19 Packets by ity of powder 00:00: mouth 3 (three) Medical times [place] daily with meals. phenytoin 2020-0 Yes [id number] 400mg Take 4 [facility] nivers Extended 5-19 capsules ity of (DILANTIN) 00:00: by mouth [place] 100 mg 00 daily. Medical capsule Branch levothyroxi 2020-0 Yes [id number] 150ug Take 1 [facility] ne 150 mcg 5-19 tablet by ity of tablet 00:00: mouth [place] every Medical morning. Branch cholestyram 2020-0 Yes [id number] 2g Take 0.5 [facility] ine 4 gram 5-19 Packets by ity of powder 00:00: mouth 3 (three) Medical times Branch daily with meals. phenytoin 2020-0 Yes [id number] 400mg Take 4 [facility] nivers Extended 5-19 capsules ity of (DILANTIN) 00:00: by mouth [place] 100 mg 00 daily. Medical capsule Branch levothyroxi 2019-0 Yes [id number] 150ug Take 1 [facility] ne 150 mcg 5-19 tablet by ity of tablet 00:00: mouth every Medical morning. Branch cholestyram 2020-0 Yes [id number] 2g Take 0.5 [facility] ine 4 gram 5-19 Packets by ity of powder 00:00: mouth (three) Medical times Branch daily with meals. phenytoin 2020-0 Yes [id number] 400mg Take 4 [facility] nivers Extended 5-19 capsules ity of (DILANTIN) 00:00: by mouth [place] 100 mg 00 daily. Medical capsule Branch levothyroxi 2019-0 Yes [id number] 150ug Take 1 [facility] ne 150 mcg 5-19 tablet by ity of tablet 00:00: mouth every Medical morning. Branch cholestyram 2019-0 Yes [id number] 2g Take 0.5 [facility] ine 4 gram 5-19 Packets by ity of powder 00:00: mouth (three) Medical times Branch daily with meals. phenytoin 2020-0 Yes [id number] 400mg Take 4 [facility] nivers Extended 5-19 capsules ity of (DILANTIN) 00:00: by mouth [place] 100 mg 00 daily. Medical capsule Branch levothyroxi 2020-0 Yes [id number] 150ug Take 1 [facility] ne 150 mcg 5-19 tablet by ity of tablet 00:00: mouth every Medical morning. Branch cholestyram 2020-0 Yes [id number] 2g Take 0.5 [facility] ine 4 gram 5-19 Packets by ity of powder 00:00: mouth (three) Medical times Branch daily with meals. phenytoin 2020-0 Yes [id number] 400mg Take 4 [facility] nivers Extended 5-19 capsules ity of (DILANTIN) 00:00: by mouth [place] 100 mg 00 daily. Medical capsule Branch levothyroxi 2020-0 Yes [id number] 150ug Take 1 [facility] ne 150 mcg 5-19 tablet by ity of tablet 00:00: mouth [place] 00 every Medical morning. Branch cholestyram 2020-0 Yes [id number] 2g Take 0.5 [facility] ine 4 gram 5-19 Packets by ity of powder 00:00: mouth 3 (three) Medical times Branch daily with meals. phenytoin 2020-0 Yes [id number] 400mg Take 4 [facility] nivers Extended 5-19 capsules ity of (DILANTIN) 00:00: by mouth [place] 100 mg 00 daily. Medical capsule Branch levothyroxi 2020-0 Yes [id number] 150ug Take 1 [facility] ne 150 mcg 5-19 tablet by ity of tablet 00:00: mouth 00 every Medical morning. Branch cholestyram 2020-0 Yes [id number] 2g Take 0.5 [facility] ine 4 gram 5-19 Packets by ity of powder 00:00: mouth (three) Medical times Branch daily with meals. phenytoin 2020-0 Yes [id number] 400mg Take 4 [facility] nivers Extended 5-19 capsules ity of (DILANTIN) 00:00: by mouth [place] 100 mg 00 daily. Medical capsule Branch levothyroxi 2020-0 Yes [id number] 150ug Take 1 [facility] ne 150 mcg 5-19 tablet by ity of tablet 00:00: mouth every Medical morning. Branch cholestyram 2020-0 Yes [id number] 2g Take 0.5 [facility] ine 4 gram 5-19 Packets by ity of powder 00:00: mouth (three) Medical times Branch daily with meals. phenytoin 2020-0 Yes [id number] 400mg Take 4 [facility] nivers Extended 5-19 capsules ity of (DILANTIN) 00:00: by mouth [place] 100 mg 00 daily. Medical capsule Branch levothyroxi 2020-0 Yes [id number] 150ug Take 1 [facility] ne 150 mcg 5-19 tablet by ity of tablet 00:00: mouth 00 every Medical morning. Branch cholestyram 2020-0 Yes [id number] 2g Take 0.5 [facility] ine 4 gram 5-19 Packets by ity of powder 00:00: mouth 3 (three) Medical times Branch daily with meals. phenytoin 2020-0 Yes [id number] 400mg Take 4 [facility] nivers Extended 5-19 capsules ity of (DILANTIN) 00:00: by mouth [place] 100 mg 00 daily. Medical capsule Branch levothyroxi 2020-0 Yes [id number] 150ug Take 1 [facility] ne 150 mcg 5-19 tablet by ity of tablet 00:00: mouth 00 every Medical morning. Branch cholestyram 2020-0 Yes [id number] 2g Take 0.5 [facility] ine 4 gram 5-19 Packets by ity of powder 00:00: mouth 3 (three) Medical times Branch daily with meals. phenytoin 2020-0 Yes [id number] 400mg Take 4 [facility] nivers Extended 5-19 capsules ity of (DILANTIN) 00:00: by mouth [place] 100 mg 00 daily. Medical capsule Branch levothyroxi 2020-0 Yes [id number] 150ug Take 1 [facility] ne 150 mcg 5-19 tablet by ity of tablet 00:00: mouth every Medical morning. Branch cholestyram 2020-0 Yes [id number] 2g Take 0.5 [facility] ine 4 gram 5-19 Packets by ity of powder 00:00: mouth (three) Medical times Branch daily with meals. phenytoin 2020-0 Yes [id number] 400mg Take 4 [facility] nivers Extended 5-19 capsules ity of (DILANTIN) 00:00: by mouth [place] 100 mg 00 daily. Medical capsule Branch levothyroxi 2020-0 Yes [id number] 150ug Take 1 [facility] ne 150 mcg 5-19 tablet by ity of tablet 00:00: mouth every Medical morning. Branch cholestyram 2020-0 Yes [id number] 2g Take 0.5 [facility] ine 4 gram 5-19 Packets by ity of powder 00:00: mouth (three) Medical times Branch daily with meals. phenytoin 2020-0 Yes [id number] 400mg Take 4 [facility] nivers Extended 5-19 capsules ity of (DILANTIN) 00:00: by mouth [place] 100 mg 00 daily. Medical capsule Branch levothyroxi 2020-0 Yes [id number] 150ug Take 1 [facility] ne 150 mcg 5-19 tablet by ity of tablet 00:00: mouth every Medical morning. Branch cholestyram 2020-0 Yes [id number] 2g Take 0.5 [facility] ine 4 gram 5-19 Packets by ity of powder 00:00: mouth 3 (three) Medical times Branch daily with meals. phenytoin 2020-0 Yes [id number] 400mg Take 4 [facility] nivers Extended 5-19 capsules ity of (DILANTIN) 00:00: by mouth [place] 100 mg 00 daily. Medical capsule Branch levothyroxi 2020-0 Yes [id number] 150ug Take 1 [facility] ne 150 mcg 5-19 tablet by ity of tablet 00:00: mouth [place] 00 every Medical morning. Branch cholestyram 2020-0 Yes [id number] 2g Take 0.5 [facility] ine 4 gram 5-19 Packets by ity of powder 00:00: mouth 3 [place] (three) Medical times Branch daily with meals. phenytoin 2020-0 Yes [id number] 400mg Take 4 [facility] nivers Extended 5-19 capsules ity of (DILANTIN) 00:00: by mouth [place] 100 mg 00 daily. Medical capsule Branch levothyroxi 2020-0 Yes [id number] 150ug Take 1 [facility] ne 150 mcg 5-19 tablet by ity of tablet 00:00: mouth [place] 00 every Medical morning. Branch cholestyram 2020-0 Yes [id number] 2g Take 0.5 [facility] ine 4 gram 5-19 Packets by ity of powder 00:00: mouth 3 (three) Medical times [place] daily with meals. phenytoin 2020-0 Yes [id number] 400mg Take 4 [facility] nivers Extended 5-19 capsules ity of (DILANTIN) 00:00: by mouth [place] 100 mg 00 daily. Medical capsule Branch levothyroxi 2020-0 Yes [id number] 150ug Take 1 [facility] ne 150 mcg 5-19 tablet by ity of tablet 00:00: mouth [place] 00 every Medical morning. Branch cholestyram 2020-0 Yes [id number] 2g Take 0.5 [facility] ine 4 gram 5-19 Packets by ity of powder 00:00: mouth 3 (three) Medical times [place] daily with meals. phenytoin 2020-0 Yes [id number] 400mg Take 4 [facility] nivers Extended 5-19 capsules ity of (DILANTIN) 00:00: by mouth [place] 100 mg 00 daily. Medical capsule Branch levothyroxi 2020-0 Yes [id number] 150ug Take 1 [facility] ne 150 mcg 5-19 tablet by ity of tablet 00:00: mouth [place] 00 every Medical morning. Branch cholestyram 2020-0 Yes [id number] 2g Take 0.5 [facility] ine 4 gram 5-19 Packets by ity of powder 00:00: mouth (three) Medical times Branch daily with meals. phenytoin 2020-0 Yes [id number] 400mg Take 4 U nivers Extended 5-19 capsules ity of (DILANTIN) 00:00: by mouth [place] 100 mg 00 daily. Medical capsule Branch levothyroxi 2020-0 Yes [id number] 150ug Take 1 [facility] ne 150 mcg 5-19 tablet by ity of tablet 00:00: mouth 00 every Medical morning. Branch cholestyram 2020-0 Yes [id number] 2g Take 0.5 [facility] ine 4 gram 5-19 Packets by ity of powder 00:00: mouth (three) Medical times Branch daily with meals. phenytoin 2020-0 Yes [id number] 400mg Take 4 [facility] nivers Extended 5-19 capsules ity of (DILANTIN) 00:00: by mouth [place] 100 mg 00 daily. Medical capsule Branch levothyroxi 2020-0 Yes [id number] 150ug Take 1 [facility] ne 150 mcg 5-19 tablet by ity of tablet 00:00: mouth every Medical morning. Branch cholestyram 2020-0 Yes [id number] 2g Take 0.5 [facility] ine 4 gram 5-19 Packets by ity of powder 00:00: mouth (three) Medical times Branch daily with meals. phenytoin 2020-0 Yes [id number] 400mg Take 4 [facility] nivers Extended 5-19 capsules ity of (DILANTIN) 00:00: by mouth [place] 100 mg 00 daily. Medical capsule Branch levothyroxi 2020-0 Yes [id number] 150ug Take 1 [facility] ne 150 mcg 5-19 tablet by ity of tablet 00:00: mouth every Medical morning. Branch cholestyram 2020-0 Yes [id number] 2g Take 0.5 [facility] ine 4 gram 5-19 Packets by ity of powder 00:00: mouth (three) Medical times Branch daily with meals. phenytoin 2020-0 Yes [id number] 400mg Take 4 [facility] nivers Extended 5-19 capsules ity of (DILANTIN) 00:00: by mouth [place] 100 mg 00 daily. Medical capsule Branch levothyroxi 2020-0 Yes [id number] 150ug Take 1 [facility] ne 150 mcg 5-19 tablet by ity of tablet 00:00: mouth [place] 00 every Medical morning. Branch cholestyram 2019- Yes [id number] 2g Take 0.5 [facility] ine 4 gram 5-19 Packets by ity of powder 00:00: mouth 3 [place] 00 (three) Medical times Branch daily with meals. nystatin 2019- 2020- No [id number] Apply to [facility] 100,000 5-19 08-18 area(s) 2 ity of unit/gram 00:00: 00:00 (two) [place] powder 00 :00 times Medical daily. Branch nystatin 2020- No [id number] Apply to [facility] 100,000 5-19 08-18 area(s) 2 ity of unit/gram 00:00: 00:00 (two) [place] powder 00 :00 times Medical daily. Branch LORazepam 1 2020- No [id number] 1mg Take 1 [facility] mg tablet 09-01-16 tablet by ity of 00:00: 00:00 mouth once [place] 00 :00 daily as Medical needed for Branch Anxiety or Agitation. LORazepam 1 2019- No [id number] 1mg Take 1 [facility] mg tablet 09-01-16 [...] daily. Medical Branch pantoprazol 2019- 2020- No [id number] 40mg Take 1 [facility] e 40 mg EC 5- 05-21 tablet by ity of tablet 00:00: 00:00 mouth once [place] 00 :00 daily as Medical needed for Branch Indigestio n. pantoprazol 2019- 2020- No [id number] 40mg Take 1 [facility] e 40 mg EC 5- 05-21 tablet by ity of tablet 00:00: 00:00 mouth once [place] 00 :00 daily as Medical needed for Branch Indigestio n. LORazepam 1 2020- No [id number] 1mg Take 1 [facility] mg tablet -01 09-19 tablet by ity of 00:00: 00:00 mouth [place] 00 :00 every Medical other day. Branch PANTOPRAZOL 2019-0 Yes [id number] TAKE 1 [facility] E 40 mg EC 5-12 TABLET BY ity of tablet 00:00: MOUTH [place] 00 TWICE A Medical DAY Branch PANTOPRAZOL 2019-0 Yes [id number] TAKE 1 [facility] E 40 mg EC 5-12 TABLET BY ity of tablet 00:00: MOUTH [place] 00 TWICE A Medical DAY Branch PANTOPRAZOL 2019-0 2020- No [id number] TAKE 1 [facility] E 40 mg EC 5-12 05-19 TABLET BY ity of tablet 00:00: 00:00 MOUTH [place] 00 :00 TWICE A Medical DAY Branch levothyroxi 2019-0 Yes [id number] 150ug Take 1 [facility] ne 150 mcg 4-27 tablet by ity of tablet 00:00: mouth [place] 00 every Medical morning. Branch levothyroxi 2019-0 Yes [id number] 150ug Take 1 [facility] ne 150 mcg 4-27 tablet by ity of tablet 00:00: mouth [place] 00 every Medical morning. Branch levothyroxi 2019-0 2020- No [id number] 150ug Take 1 [facility] ne 150 mcg 4-27 05-19 tablet by ity of tablet 00:00: 00:00 mouth [place] 00 :00 every Medical morning. Branch acetaminoph 2019-0 Yes [id number] .5{tbl} Take 0.5-1 [facility] en-codeine 4-24 [id number] tablets by it y of (TYLENOL-CO 00:00: mouth [place] DEINE #3) 00 every 4 Medical 300-30 mg (four) Branch tablet hours as needed (pain). Pt medicaid is under her maiden name Cyndie Doan acetaminoph 2020-0 Yes [id number] .5{tbl} Take 0.5-1 [facility] en-codeine 4-24 [id number] tablets by it y of (TYLENOL-CO 00:00: mouth [place] DEINE #3) 00 every 4 Medical 300-30 mg (four) Branch tablet hours as needed (pain). Pt medicaid is under her maiden name Cyndie Doan acetaminoph 2020-0 Yes [id number] .5{tbl} Take 0.5-1 [facility] en-codeine 4-24 [id number] tablets by it y of (TYLENOL-CO 00:00: mouth [place] DEINE #3) 00 every 4 Medical 300-30 mg (four) Branch tablet hours as needed (pain). Pt medicaid is under her maiden name Cyndie cruzaminoph 2020-0 Yes [id number] .5{tbl} Take 0.5-1 [facility] en-codeine 4-24 [id number] tablets by it y of (TYLENOL-CO 00:00: mouth [place] DEINE #3) 00 every 4 Medical 300-30 mg (four) Branch tablet hours as needed (pain). Pt medicaid is under her maiden name Cyndie Doan acetaminoph 2020-0 Yes [id number] .5{tbl} Take 0.5-1 [facility] en-codeine 4-24 [id number] tablets by it y of (TYLENOL-CO 00:00: mouth [place] DEINE #3) 00 every 4 Medical 300-30 mg (four) Branch tablet hours as needed (pain). Pt medicaid is under her maiden name Cyndie cruzaminoph 2020-0 Yes [id number] .5{tbl} Take 0.5-1 [facility] en-codeine 4-24 [id number] tablets by it y of (TYLENOL-CO 00:00: mouth [place] DEINE #3) 00 every 4 Medical 300-30 mg (four) Branch tablet hours as needed (pain). Pt medicaid is under her maiden name Cyndie cruzaminoph 2020-0 Yes [id number] .5{tbl} Take 0.5-1 [facility] en-codeine 4-24 [id number] tablets by it y of (TYLENOL-CO 00:00: mouth [place] DEINE #3) 00 every 4 Medical 300-30 mg (four) Branch tablet hours as needed (pain). Pt medicaid is under her maiden name Cyndie Doan acetaminoph 2020-0 Yes [id number] .5{tbl} Take 0.5-1 [facility] en-codeine 4-24 [id number] tablets by it y of (TYLENOL-CO 00:00: mouth [place] DEINE #3) 00 every 4 Medical 300-30 mg (four) Branch tablet hours as needed (pain). Pt medicaid is under her maiden name Cyndie cruzaminoph 2020-0 Yes [id number] .5{tbl} Take 0.5-1 [facility] en-codeine 4-24 [id number] tablets by it y of (TYLENOL-CO 00:00: mouth [place] DEINE #3) 00 every 4 Medical 300-30 mg (four) Branch tablet hours as needed (pain). Pt medicaid is under her maiden name Cyndie Doan acetaminoph 2020-0 2020- No [id number] .5{tbl} Take 0.5-1 [facility] en-codeine 4-07 12-18 [id number] tablets by i ty of (TYLENOL-CO 00:00: 00:[place] DEINE #3[place] 00 :00 every 4 Medical 300-30 mg (four) Branch tablet hours as needed (pain). Pt medicaid is under her maiden name Cyndie Doan acetaminoph 2020-0 2020- No [id number] .5{tbl} Take 0.5-1 [facility] en-codeine 4-24 - 58420 tablets by i ty of (TYLENOL-CO 00:00: 00:[place] DEINE #3[place] 00 :00 every 4 Medical 300-30 mg (four) Branch tablet hours as needed (pain). Pt medicaid is under her maiden name Cyndie Doan clotrimazol 2020-0 Yes [id number] Apply to [facility] e 1 % 4-21 area(s) 2 ity of topical 00:00: (two) [place] cream 00 times Medical daily. Branch clotrimazol 2020-0 Yes [id number] Apply to [facility] e 1 % 4-21 area(s) 2 ity of topical 00:00: (two) [place] cream 00 times Medical daily. Branch clotrimazol 2020-0 Yes [id number] Apply to [facility] e 1 % 4-21 area(s) 2 ity of topical 00:00: (two) [place] cream 00 times Medical daily. Branch clotrimazol 2020-0 Yes [id number] Apply to [facility] e 1 % 4-21 area(s) 2 ity of topical 00:00: (two) [place] cream 00 times Medical daily. Branch clotrimazol 2020-0 Yes [id number] Apply to [facility] e 1 % 4-21 area(s) 2 ity of topical 00:00: (two) [place] cream 00 times Medical daily. Branch clotrimazol 2020-0 Yes [id number] Apply to [facility] e 1 % 4-21 area(s) 2 ity of topical 00:00: (two) [place] cream 00 times Medical daily. Branch clotrimazol 2020-0 Yes [id number] Apply to [facility] e 1 % 4-21 area(s) 2 ity of topical 00:00: (two) [place] cream 00 times Medical daily. Branch clotrimazol 2020-0 2020- No [id number] Apply to [facility] e 1 % 4-21 05-19 area(s) 2 ity of topical 00:00: 00:00 (two) [place] cream 00 :00 times Medical daily. Branch ketoconazol 2020-0 Yes [id number] Apply to [facility] e 2 % cream 4-17 area(s) 2 ity of 00:00: (two) [place] 00 times Medical daily. Branch ketoconazol 2020-0 Yes [id number] Apply to [facility] e 2 % cream 4-17 area(s) 2 ity of 00:00: (two) [place] 00 times Medical daily. Branch ketoconazol 2020-0 2020- No [id number] Apply to [facility] e 2 % cream 4-17 04-21 area(s) 2 it y of 00:00: 00:00 (two) [place] 00 :00 times Medical daily. Branch ketoconazol 2020-0 2020- No [id number] Apply to [facility] e 2 % cream 4-17 04-21 area(s) 2 it y of 00:00: 00:00 (two) [place] 00 :00 times Medical daily. Branch LORazepam 1 2020-0 Yes [id number] 1mg Take 1 [facility] mg tablet 4-07 tablet by ity o f 00:00: mouth 2 (two) Medical times per Branch week for Anxiety or Agitation. LORazepam 1 2020-0 Yes [id number] 1mg Take 1 [facility] mg tablet 4-07 tablet by ity o f 00:00: mouth 2 (two) Medical times per Branch week for Anxiety or Agitation. LORazepam 1 2020-0 Yes [id number] 1mg Take 1 [facility] mg tablet 4-07 tablet by ity o f 00:00: mouth 2 (two) Medical times per Branch week for Anxiety or Agitation. LORazepam 1 2020-0 Yes [id number] 1mg Take 1 [facility] mg tablet 4-07 tablet by ity o f 00:00: mouth 2 (two) Medical times per Branch week for Anxiety or Agitation. LORazepam 1 2020-0 Yes [id number] 1mg Take 1 [facility] mg tablet 4-07 tablet by ity o f 00:00: mouth (two) Medical times per Branch week for Anxiety or Agitation. LORazepam 1 2020-0 Yes [id number] 1mg Take 1 [facility] mg tablet 4-07 tablet by ity o f 00:00: mouth 2 (two) Medical times per Branch week for Anxiety or Agitation. LORazepam 1 2020-0 Yes [id number] 1mg Take 1 [facility] mg tablet 4-07 tablet by ity o f 00:00: mouth (two) Medical times per Branch week for Anxiety or Agitation. LORazepam 1 2020-0 Yes [id number] 1mg Take 1 [facility] mg tablet 4-07 tablet by ity o f 00:00: mouth (two) Medical times per Branch week for Anxiety or Agitation. LORazepam 1 2019-0 Yes [id number] 1mg Take 1 [facility] mg tablet 4-07 tablet by ity o f 00:00: mouth (two) Medical times per Branch week for Anxiety or Agitation. LORazepam 1 2020-0 Yes [id number] 1mg Take 1 [facility] mg tablet 4-07 tablet by ity o f 00:00: mouth (two) Medical times per Branch week for Anxiety or Agitation. LORazepam 1 2020-0 Yes [id number] 1mg Take 1 [facility] mg tablet 4-07 tablet by ity o f 00:00: mouth (two) Medical times per Branch week for Anxiety or Agitation. LORazepam 1 2020-0 Yes [id number] 1mg Take 1 [facility] mg tablet 4-07 tablet by ity o f 00:00: mouth (two) Medical times per Branch week for Anxiety or Agitation. LORazepam 1 2020-0 2020- No [id number] 1mg Take 1 [facility] mg tablet 4-07 [...] it y of tablet 13:52: 00:00 (two) [place] 30 :00 times Medical daily. Branch phenytoin 2020-0 Yes [id number] 400mg Take 4 [facility] n[facility] Extended 3-24 capsules ity of (DILANTIN) 00:00: by mouth [place] 100 mg 00 daily. Medical capsule Branch FLUoxetine 2020-0 Yes 40mg Take 1 [facility] rs (PROZAC) 40 3-24 capsule by it y of mg capsule 00:00: mouth [place] 00 daily. Medical Branch cholestyram 2020-0 Yes [id number] 2g Take 0.5 [facility] ine 4 gram 3-24 Packets by ity of powder 00:00: mouth 3 (three) Medical times Branch daily with meals. clonazePAM 2020-0 Yes [id number] 1mg Take 1 [facility] 1 mg tablet 3-24 tablet by ity of 00:00: mouth once 00 daily as Medical needed Branch (panic attack). pantoprazol 2020-0 Yes [id number] 40mg Take 1 [facility] e 40 mg EC 3-24 tablet by ity of tablet 00:00: mouth 2 [place] 00 (two) Medical times Branch daily. famotidine 2020-0 Yes [id number] 20mg Take 1 [facility] (PEPCID AC) 3-24 tablet by ity of 20 mg 00:00: mouth 2 [place] tablet 00 (two) Medical times Branch daily. phenytoin 2020-0 Yes [id number] 400mg Take 4 [facility] nivers Extended 3-24 capsules ity of (DILANTIN) 00:00: by mouth [place] 100 mg 00 daily. Medical capsule Branch FLUoxetine 2020-0 Yes 40mg Take 1 [facility] rs (PROZAC) 40 3-24 capsule by it y of mg capsule 00:00: mouth 00 daily. Medical Branch cholestyram 2020-0 Yes [id number] 2g Take 0.5 [facility] ine 4 gram 3-24 Packets by ity of powder 00:00: mouth 3 (three) Medical times Branch daily with meals. clonazePAM 2020-0 Yes [id number] 1mg Take 1 [facility] 1 mg tablet 3-24 tablet by ity of 00:00: mouth once 00 daily as Medical needed Branch (panic attack). pantoprazol 2020-0 Yes [id number] 40mg Take 1 [facility] e 40 mg EC 3-24 tablet by ity of tablet 00:00: mouth 2 [place] 00 (two) Medical times Branch daily. famotidine 2020-0 Yes [id number] 20mg Take 1 [facility] (PEPCID AC) 3-24 tablet by ity of 20 mg 00:00: mouth 2 [place] tablet 00 (two) Medical times Branch daily. phenytoin 2020-0 Yes [id number] 400mg Take 4 [facility] n[facility] Extended 3-24 capsules ity of (DILANTIN) 00:00: by mouth [place] 100 mg 00 daily. Medical capsule Branch FLUoxetine 2020-0 Yes 40mg Take 1 [facility] rs (PROZAC) 40 3-24 capsule by it y of mg capsule 00:00: mouth [place] 00 daily. Medical Branch cholestyram 2020-0 Yes [id number] 2g Take 0.5 [facility] ine 4 gram 3-24 Packets by ity of powder 00:00: mouth 3 [place] 00 (three) Medical times Branch daily with meals. clonazePAM 2020-0 Yes [id number] 1mg Take 1 [facility] 1 mg tablet 3-24 tablet by ity of 00:00: mouth once [place] 00 daily as Medical needed Branch (panic attack). pantoprazol 2020-0 Yes [id number] 40mg Take 1 [facility] e 40 mg EC 3-24 tablet by ity of tablet 00:00: mouth 2 [place] 00 (two) Medical times Branch daily. famotidine 2020-0 Yes [id number] 20mg Take 1 [facility] (PEPCID AC) 3-24 tablet by ity of 20 mg 00:00: mouth 2 [place] tablet 00 (two) Medical times Branch daily. phenytoin 2020-0 Yes [id number] 400mg Take 4 [facility] nivers Extended 3-24 capsules ity of (DILANTIN) 00:00: by mouth [place] 100 mg 00 daily. Medical capsule Branch FLUoxetine 2020-0 Yes 40mg Take 1 [facility] rs (PROZAC) 40 3-24 capsule by it y of mg capsule 00:00: mouth [place] 00 daily. Medical Branch cholestyram 2020-0 Yes [id number] 2g Take 0.5 [facility] ine 4 gram 3-24 Packets by ity of powder 00:00: mouth 3 [place] 00 (three) Medical times Branch daily with meals. clonazePAM 2020-0 Yes [id number] 1mg Take 1 [facility] 1 mg tablet 3-24 tablet by ity of 00:00: mouth once [place] 00 daily as Medical needed Branch (panic attack). pantoprazol 2020-0 Yes [id number] 40mg Take 1 [facility] e 40 mg EC 3-24 tablet by ity of tablet 00:00: mouth 2 [place] 00 (two) Medical times Branch daily. famotidine 2020-0 Yes [id number] 20mg Take 1 [facility] (PEPCID AC) 3-24 tablet by ity of 20 mg 00:00: mouth 2 [place] tablet 00 (two) Medical times Branch daily. phenytoin 2020-0 Yes [id number] 400mg Take 4 [facility] nivers Extended 3-24 capsules ity of (DILANTIN) 00:00: by mouth [place] 100 mg 00 daily. Medical capsule Branch FLUoxetine 2020-0 Yes 40mg Take 1 [facility] rs (PROZAC) 40 3-24 capsule by it y of mg capsule 00:00: mouth [place] 00 daily. Medical Branch cholestyram 2020-0 Yes [id number] 2g Take 0.5 [facility] ine 4 gram 3-24 Packets by ity of powder 00:00: mouth 3 [place] 00 (three) Medical times Branch daily with meals. clonazePAM 2020-0 Yes [id number] 1mg Take 1 [facility] 1 mg tablet 3-24 tablet by ity of 00:00: mouth once [place] 00 daily as Medical needed Branch (panic attack). pantoprazol 2020-0 Yes [id number] 40mg Take 1 [facility] e 40 mg EC 3-24 tablet by ity of tablet 00:00: mouth 2 [place] 00 (two) Medical times Branch daily. famotidine 2020-0 Yes [id number] 20mg Take 1 [facility] (PEPCID AC) 3-24 tablet by ity of 20 mg 00:00: mouth 2 [place] tablet 00 (two) Medical times Branch daily. phenytoin 2020-0 Yes [id number] 400mg Take 4 [facility] nivers Extended 3-24 capsules ity of (DILANTIN) 00:00: by mouth [place] 100 mg 00 daily. Medical capsule Branch FLUoxetine 2020-0 Yes 40mg Take 1 [facility] rs (PROZAC) 40 3-24 capsule by it y of mg capsule 00:00: mouth [place] 00 daily. Medical Branch cholestyram 2020-0 Yes [id number] 2g Take 0.5 [facility] ine 4 gram 3-24 Packets by ity of powder 00:00: mouth 3 [place] 00 (three) Medical times Branch daily with meals. clonazePAM 2020-0 Yes [id number] 1mg Take 1 [facility] 1 mg tablet 3-24 tablet by ity of 00:00: mouth once [place] 00 daily as Medical needed Branch (panic attack). pantoprazol 2020-0 Yes [id number] 40mg Take 1 [facility] e 40 mg EC 3-24 tablet by ity of tablet 00:00: mouth 2 [place] 00 (two) Medical times Branch daily. famotidine 2020-0 Yes [id number] 20mg Take 1 [facility] (PEPCID AC) 3-24 tablet by ity of 20 mg 00:00: mouth 2 [place] tablet 00 (two) Medical times Branch daily. phenytoin 2020-0 Yes [id number] 400mg Take 4 [facility] nivers Extended 3-24 capsules ity of (DILANTIN) 00:00: by mouth [place] 100 mg 00 daily. Medical capsule Branch FLUoxetine 2020-0 Yes 40mg Take 1 [facility] rs (PROZAC) 40 3-24 capsule by it y of mg capsule 00:00: mouth [place] 00 daily. Medical Branch cholestyram 2020-0 Yes [id number] 2g Take 0.5 [facility] ine 4 gram 3-24 Packets by ity of powder 00:00: mouth 3 00 (three) Medical times Branch daily with meals. clonazePAM 2020-0 Yes [id number] 1mg Take 1 [facility] 1 mg tablet 3-24 tablet by ity of 00:00: mouth once [place] 00 daily as Medical needed Branch (panic attack). pantoprazol 2020-0 Yes [id number] 40mg Take 1 [facility] e 40 mg EC 3-24 tablet by ity of tablet 00:00: mouth 2 [place] 00 (two) Medical times Branch daily. famotidine 2020-0 Yes [id number] 20mg Take 1 [facility] (PEPCID AC) 3-24 tablet by ity of 20 mg 00:00: mouth 2 [place] tablet 00 (two) Medical times Branch daily. phenytoin 2020-0 Yes [id number] 400mg Take 4 [facility] nivers Extended 3-24 capsules ity of (DILANTIN) 00:00: by mouth [place] 100 mg 00 daily. Medical capsule Branch FLUoxetine 2020-0 Yes 40mg Take 1 [facility] rs (PROZAC) 40 3-24 capsule by it y of mg capsule 00:00: mouth [place] 00 daily. Medical Branch cholestyram 2020-0 Yes [id number] 2g Take 0.5 [facility] ine 4 gram 3-24 Packets by ity of powder 00:00: mouth 3 00 (three) Medical times Branch daily with meals. clonazePAM 2020-0 Yes [id number] 1mg Take 1 [facility] 1 mg tablet 3-24 tablet by ity of 00:00: mouth once [place] 00 daily as Medical needed Branch (panic attack). pantoprazol 2020-0 Yes [id number] 40mg Take 1 [facility] e 40 mg EC 3-24 tablet by ity of tablet 00:00: mouth 2 [place] 00 (two) Medical times Branch daily. famotidine 2020-0 Yes [id number] 20mg Take 1 [facility] (PEPCID AC) 3-24 tablet by ity of 20 mg 00:00: mouth 2 [place] tablet 00 (two) Medical times Branch daily. phenytoin 2020-0 Yes [id number] 400mg Take 4 [facility] nivers Extended 3-24 capsules ity of (DILANTIN) 00:00: by mouth [place] 100 mg 00 daily. Medical capsule Branch FLUoxetine 2020-0 Yes 40mg Take 1 [facility] rs (PROZAC) 40 3-24 capsule by it y of mg capsule 00:00: mouth [place] 00 daily. Medical Branch cholestyram 2020-0 Yes [id number] 2g Take 0.5 [facility] ine 4 gram 3-24 Packets by ity of powder 00:00: mouth 3 [place] 00 (three) Medical times Branch daily with meals. pantoprazol 2020-0 Yes [id number] 40mg Take 1 [facility] e 40 mg EC 3-24 tablet by ity of tablet 00:00: mouth 2 [place] 00 (two) Medical times Branch daily. famotidine 2020-0 Yes [id number] 20mg Take 1 [facility] (PEPCID AC) 3-24 tablet by ity of 20 mg 00:00: mouth 2 [place] tablet 00 (two) Medical times Branch daily. phenytoin 2020-0 Yes [id number] 400mg Take 4 [facility] nivers Extended 3-24 capsules ity of (DILANTIN) 00:00: by mouth [place] 100 mg 00 daily. Medical capsule Branch FLUoxetine 2020-0 Yes 40mg Take 1 [facility] rs (PROZAC) 40 3-24 capsule by it y of mg capsule 00:00: mouth [place] 00 daily. Medical Branch cholestyram 2020-0 Yes [id number] 2g Take 0.5 [facility] ine 4 gram 3-24 Packets by ity of powder 00:00: mouth 3 [place] 00 (three) Medical times Branch daily with meals. pantoprazol 2020-0 Yes [id number] 40mg Take 1 [facility] e 40 mg EC 3-24 tablet by ity of tablet 00:00: mouth 2 [place] 00 (two) Medical times Branch daily. famotidine 2020-0 Yes [id number] 20mg Take 1 [facility] (PEPCID AC) 3-24 tablet by ity of 20 mg 00:00: mouth 2 [place] tablet 00 (two) Medical times Branch daily. phenytoin 2020-0 Yes [id number] 400mg Take 4 [facility] nivers Extended 3-24 capsules ity of (DILANTIN) 00:00: by mouth [place] 100 mg 00 daily. Medical capsule Branch FLUoxetine 2020-0 Yes 40mg Take 1 [facility] rs (PROZAC) 40 3-24 capsule by it y of mg capsule 00:00: mouth 00 daily. Medical Branch cholestyram 2020-0 Yes [id number] 2g Take 0.5 [facility] ine 4 gram 3-24 Packets by ity of powder 00:00: mouth (three) Medical times Branch daily with meals. pantoprazol 2020-0 Yes [id number] 40mg Take 1 [facility] e 40 mg EC 3-24 tablet by ity of tablet 00:00: mouth 2 [place] 00 (two) Medical times Branch daily. famotidine 2020-0 Yes [id number] 20mg Take 1 [facility] (PEPCID AC) 3-24 tablet by ity of 20 mg 00:00: mouth 2 [place] tablet 00 (two) Medical times Branch daily. phenytoin 2020-0 Yes [id number] 400mg Take 4 [facility] nivers Extended 3-24 capsules ity of (DILANTIN) 00:00: by mouth [place] 100 mg 00 daily. Medical capsule Branch FLUoxetine 2020-0 Yes 40mg Take 1 [facility] rs (PROZAC) 40 3-24 capsule by it y of mg capsule 00:00: mouth [place] 00 daily. Medical Branch cholestyram 2020-0 Yes [id number] 2g Take 0.5 [facility] ine 4 gram 3-24 Packets by ity of powder 00:00: mouth 3 00 (three) Medical times Branch daily with meals. pantoprazol 2020-0 Yes [id number] 40mg Take 1 [facility] e 40 mg EC 3-24 tablet by ity of tablet 00:00: mouth 2 [place] 00 (two) Medical times Branch daily. famotidine 2020-0 Yes [id number] 20mg Take 1 [facility] (PEPCID AC) 3-24 tablet by ity of 20 mg 00:00: mouth 2 [place] tablet 00 (two) Medical times Branch daily. phenytoin 2020-0 Yes [id number] 400mg Take 4 [facility] nivers Extended 3-24 capsules ity of (DILANTIN) 00:00: by mouth [place] 100 mg 00 daily. Medical capsule Branch FLUoxetine 2020-0 Yes 40mg Take 1 [facility] rs (PROZAC) 40 3-24 capsule by it y of mg capsule 00:00: mouth [place] 00 daily. Medical Branch cholestyram 2020-0 Yes [id number] 2g Take 0.5 [facility] ine 4 gram 3-24 Packets by ity of powder 00:00: mouth 3 [place] (three) Medical times Branch daily with meals. pantoprazol 2020-0 Yes [id number] 40mg Take 1 [facility] e 40 mg EC 3-24 tablet by ity of tablet 00:00: mouth 2 [place] 00 (two) Medical times Branch daily. famotidine 2020-0 Yes [id number] 20mg Take 1 [facility] (PEPCID AC) 3-24 tablet by ity of 20 mg 00:00: mouth 2 [place] tablet 00 (two) Medical times Branch daily. phenytoin 2020-0 Yes [id number] 400mg Take 4 [facility] nivers Extended 3-24 capsules ity of (DILANTIN) 00:00: by mouth [place] 100 mg 00 daily. Medical capsule Branch FLUoxetine 2020-0 Yes 40mg Take 1 [facility] rs (PROZAC) 40 3-24 capsule by it y of mg capsule 00:00: mouth [place] 00 daily. Medical Branch cholestyram 2020-0 Yes [id number] 2g Take 0.5 [facility] ine 4 gram 3-24 Packets by ity of powder 00:00: mouth 3 [place] (three) Medical times Branch daily with meals. pantoprazol 2020-0 Yes [id number] 40mg Take 1 [facility] e 40 mg EC 3-24 tablet by ity of tablet 00:00: mouth 2 [place] 00 (two) Medical times Branch daily. famotidine 2020-0 Yes [id number] 20mg Take 1 [facility] (PEPCID AC) 3-24 tablet by ity of 20 mg 00:00: mouth 2 [place] tablet 00 (two) Medical times Branch daily. phenytoin 2020-0 Yes [id number] 400mg Take 4 [facility] nivers Extended 3-24 capsules ity of (DILANTIN) 00:00: by mouth [place] 100 mg 00 daily. Medical capsule Branch FLUoxetine 2020-0 Yes 40mg Take 1 [facility] rs (PROZAC) 40 3-24 capsule by it y of mg capsule 00:00: mouth [place] 00 daily. Medical Branch cholestyram 2020-0 Yes [id number] 2g Take 0.5 [facility] ine 4 gram 3-24 Packets by ity of powder 00:00: mouth 3 [place] 00 (three) Medical times Branch daily with meals. pantoprazol 2020-0 Yes [id number] 40mg Take 1 [facility] e 40 mg EC 3-24 tablet by ity of tablet 00:00: mouth 2 [place] 00 (two) Medical times Branch daily. famotidine 2020-0 Yes [id number] 20mg Take 1 [facility] (PEPCID AC) 3-24 tablet by ity of 20 mg 00:00: mouth 2 [place] tablet 00 (two) Medical times Branch daily. phenytoin 2020-0 Yes [id number] 400mg Take 4 [facility] nivers Extended 3-24 capsules ity of (DILANTIN) 00:00: by mouth [place] 100 mg 00 daily. Medical capsule Branch FLUoxetine 2020-0 Yes 40mg Take 1 [facility] rs (PROZAC) 40 3-24 capsule by it y of mg capsule 00:00: mouth [place] 00 daily. Medical Branch cholestyram 2020-0 Yes [id number] 2g Take 0.5 [facility] ine 4 gram 3-24 Packets by ity of powder 00:00: mouth 3 00 (three) Medical times Branch daily with meals. pantoprazol 2020-0 Yes [id number] 40mg Take 1 [facility] e 40 mg EC 3-24 tablet by ity of tablet 00:00: mouth 2 [place] 00 (two) Medical times Branch daily. famotidine 2020-0 Yes [id number] 20mg Take 1 [facility] (PEPCID AC) 3-24 tablet by ity of 20 mg 00:00: mouth 2 [place] tablet 00 (two) Medical times Branch daily. phenytoin 2020-0 Yes [id number] 400mg Take 4 [facility] nivers Extended 3-24 capsules ity of (DILANTIN) 00:00: by mouth [place] 100 mg 00 daily. Medical capsule Branch FLUoxetine 2020-0 Yes 40mg Take 1 [facility] rs (PROZAC) 40 3-24 capsule by it y of mg capsule 00:00: mouth 00 daily. Medical Branch cholestyram 2020-0 Yes [id number] 2g Take 0.5 [facility] ine 4 gram 3-24 Packets by ity of powder 00:00: mouth 3 (three) Medical times Branch daily with meals. pantoprazol 2020-0 Yes [id number] 40mg Take 1 [facility] e 40 mg EC 3-24 tablet by ity of tablet 00:00: mouth 2 [place] 00 (two) Medical times Branch daily. famotidine 2020-0 Yes [id number] 20mg Take 1 [facility] (PEPCID AC) 3-24 tablet by ity of 20 mg 00:00: mouth 2 [place] tablet 00 (two) Medical times Branch daily. phenytoin 2020-0 Yes [id number] 400mg Take 4 [facility] nivers Extended 3-24 capsules ity of (DILANTIN) 00:00: by mouth [place] 100 mg 00 daily. Medical capsule Branch FLUoxetine 2020-0 Yes 40mg Take 1 [facility] rs (PROZAC) 40 3-24 capsule by it y of mg capsule 00:00: mouth 00 daily. Medical Branch cholestyram 2020-0 Yes [id number] 2g Take 0.5 [facility] ine 4 gram 3-24 Packets by ity of powder 00:00: mouth 3 (three) Medical times Branch daily with meals. pantoprazol 2020-0 Yes [id number] 40mg Take 1 [facility] e 40 mg EC 3-24 tablet by ity of tablet 00:00: mouth 2 [place] 00 (two) Medical times Branch daily. famotidine 2020-0 Yes [id number] 20mg Take 1 [facility] (PEPCID AC) 3-24 tablet by ity of 20 mg 00:00: mouth 2 [place] tablet 00 (two) Medical times Branch daily. phenytoin 2020-0 Yes [id number] 400mg Take 4 [facility] nivers Extended 3-24 capsules ity of (DILANTIN) 00:00: by mouth [place] 100 mg 00 daily. Medical capsule Branch FLUoxetine 2020-0 Yes 40mg Take 1 [facility] rs (PROZAC) 40 3-24 capsule by it y of mg capsule 00:00: mouth 00 daily. Medical Branch cholestyram 2020-0 Yes [id number] 2g Take 0.5 [facility] ine 4 gram 3-24 Packets by ity of powder 00:00: mouth 3 [place] 00 (three) Medical times Branch daily with meals. pantoprazol 2020-0 Yes [id number] 40mg Take 1 [facility] e 40 mg EC 3-24 tablet by ity of tablet 00:00: mouth 2 [place] 00 (two) Medical times Branch daily. famotidine 2020-0 Yes [id number] 20mg Take 1 [facility] (PEPCID AC) 3-24 tablet by ity of 20 mg 00:00: mouth 2 [place] tablet 00 (two) Medical times Branch daily. phenytoin 2020-0 Yes [id number] 400mg Take 4 [facility] nivers Extended 3-24 capsules ity of (DILANTIN) 00:00: by mouth [place] 100 mg 00 daily. Medical capsule Branch FLUoxetine 2020-0 Yes 40mg Take 1 [facility] rs (PROZAC) 40 3-24 capsule by it y of mg capsule 00:00: mouth [place] 00 daily. Medical Branch cholestyram 2020-0 Yes [id number] 2g Take 0.5 [facility] ine 4 gram 3-24 Packets by ity of powder 00:00: mouth 3 (three) Medical times Branch daily with meals. famotidine 2020-0 Yes [id number] 20mg Take 1 [facility] (PEPCID AC) 3-24 tablet by ity of 20 mg 00:00: mouth 2 [place] tablet 00 (two) Medical times Branch daily. phenytoin 2020-0 Yes [id number] 400mg Take 4 [facility] nivers Extended 3-24 capsules ity of (DILANTIN) 00:00: by mouth [place] 100 mg 00 daily. Medical capsule Branch FLUoxetine 2020-0 Yes 40mg Take 1 [facility] rs (PROZAC) 40 3-24 capsule by it y of mg capsule 00:00: mouth [place] 00 daily. Medical Branch cholestyram 2020-0 Yes [id number] 2g Take 0.5 [facility] ine 4 gram 3-24 Packets by ity of powder 00:00: mouth 3 (three) Medical times Branch daily with meals. famotidine 2020-0 Yes [id number] 20mg Take 1 [facility] (PEPCID AC) 3-24 tablet by ity of 20 mg 00:00: mouth 2 [place] tablet 00 (two) Medical times Branch daily. phenytoin 2020-0 Yes [id number] 400mg Take 4 [facility] nivers Extended 3-24 capsules ity of (DILANTIN) 00:00: by mouth [place] 100 mg 00 daily. Medical capsule Branch FLUoxetine 2020-0 Yes 40mg Take 1 [facility] rs (PROZAC) 40 3-24 capsule by it y of mg capsule 00:00: mouth [place] 00 daily. Medical Branch cholestyram 2020-0 Yes [id number] 2g Take 0.5 [facility] ine 4 gram 3-24 Packets by ity of powder 00:00: mouth 3 [place] 00 (three) Medical times Branch daily with meals. famotidine 2020-0 Yes [id number] 20mg Take 1 Univers (PEPCID AC) 3-24 tablet by ity of 20 mg 00:00: mouth 2 [place] tablet 00 (two) Medical times Branch daily. famotidine 2020-0 Yes [id number] 20mg Take 1 [facility] (PEPCID AC) 3-24 tablet by ity of 20 mg 00:00: mouth 2 [place] tablet 00 (two) Medical times Branch daily. famotidine 2020-0 Yes [id number] 20mg Take 1 [facility] (PEPCID AC) 3-24 tablet by ity of 20 mg 00:00: mouth 2 [place] tablet 00 (two) Medical times Branch daily. famotidine 2020-0 Yes [id number] 20mg Take 1 [facility] (PEPCID AC) 3-24 tablet by ity of 20 mg 00:00: mouth 2 [place] tablet 00 (two) Medical times Branch daily. famotidine 2020-0 Yes [id number] 20mg Take 1 [facility] (PEPCID AC) 3-24 tablet by ity of 20 mg 00:00: mouth 2 [place] tablet 00 (two) Medical times Branch daily. famotidine 2020-0 Yes [id number] 20mg Take 1 [facility] (PEPCID AC) 3-24 tablet by ity of 20 mg 00:00: mouth 2 [place] tablet 00 (two) Medical times Branch daily. famotidine 2020-0 Yes [id number] 20mg Take 1 [facility] (PEPCID AC) 3-24 tablet by ity of 20 mg 00:00: mouth 2 [place] tablet 00 (two) Medical times Branch daily. famotidine 2020-0 Yes [id number] 20mg Take 1 [facility] (PEPCID AC) 3-24 tablet by ity of 20 mg 00:00: mouth 2 [place] tablet 00 (two) Medical times Branch daily. famotidine 2020-0 Yes [id number] 20mg Take 1 [facility] (PEPCID AC) 3-24 tablet by ity of 20 mg 00:00: mouth 2 [place] tablet 00 (two) Medical times Branch daily. famotidine 2020-0 Yes [id number] 20mg Take 1 [facility] (PEPCID AC) 3-24 tablet by ity of 20 mg 00:00: mouth 2 [place] tablet 00 (two) Medical times Branch daily. famotidine 2020-0 Yes [id number] 20mg Take 1 [facility] (PEPCID AC) 3-24 tablet by ity of 20 mg 00:00: mouth 2 [place] tablet 00 (two) Medical times Branch daily. famotidine 2020-0 Yes [id number] 20mg Take 1 [facility] (PEPCID AC) 3-24 tablet by ity of 20 mg 00:00: mouth 2 [place] tablet 00 (two) Medical times Branch daily. famotidine 2020-0 Yes [id number] 20mg Take 1 [facility] (PEPCID AC) 3-24 tablet by ity of 20 mg 00:00: mouth 2 [place] tablet 00 (two) Medical times Branch daily. famotidine 2020-0 Yes [id number] 20mg Take 1 [facility] (PEPCID AC) 3-24 tablet by ity of 20 mg 00:00: mouth 2 [place] tablet 00 (two) Medical times Branch daily. famotidine 2020-0 Yes [id number] 20mg Take 1 [facility] (PEPCID AC) 3-24 tablet by ity of 20 mg 00:00: mouth 2 [place] tablet 00 (two) Medical times Branch daily. famotidine 2020-0 Yes [id number] 20mg Take 1 [facility] (PEPCID AC) 3-24 tablet by ity of 20 mg 00:00: mouth 2 [place] tablet 00 (two) Medical times Branch daily. famotidine 2020-0 Yes [id number] 20mg Take 1 [facility] (PEPCID AC) 3-24 tablet by ity of 20 mg 00:00: mouth 2 [place] tablet 00 (two) Medical times Branch daily. famotidine 2020-0 Yes [id number] 20mg Take 1 [facility] (PEPCID AC) 3-24 tablet by ity of 20 mg 00:00: mouth 2 [place] tablet 00 (two) Medical times Branch daily. famotidine 2020-0 Yes [id number] 20mg Take 1 [facility] (PEPCID AC) 3-24 tablet by ity of 20 mg 00:00: mouth 2 [place] tablet 00 (two) Medical times Branch daily. famotidine 2020-0 Yes [id number] 20mg Take 1 [facility] (PEPCID AC) 3-24 tablet by ity of 20 mg 00:00: mouth 2 [place] tablet 00 (two) Medical times Branch daily. pantoprazol 2020-0 Yes [id number] 40mg Take 1 [facility] e 40 mg EC 3-24 tablet by ity of tablet 00:00: mouth 2 [place] 00 (two) Medical times Branch daily. famotidine 2020-0 Yes [id number] 20mg Take 1 [facility] (PEPCID AC) 3-24 tablet by ity of 20 mg 00:00: mouth 2 [place] tablet 00 (two) Medical times Branch daily. phenytoin 2020-0 Yes [id number] 400mg Take 4 U nivers Extended 3-24 capsules ity of (DILANTIN) 00:00: by mouth [place] 100 mg 00 daily. Medical capsule Branch FLUoxetine 2020-0 Yes 40mg Take 1 Unive rs (PROZAC) 40 3-24 capsule by it y of mg capsule 00:00: mouth [place] 00 daily. Medical Branch cholestyram 2020-0 Yes [id number] 2g Take 0.5 [facility] ine 4 gram 3-24 Packets by ity of powder 00:00: mouth 3 [place] 00 (three) Medical times Branch daily with meals. clonazePAM 2020-0 Yes [id number] 1mg Take 1 [facility] 1 mg tablet 3-24 tablet by ity of 00:00: mouth once 00 daily as Medical needed Branch (panic attack). pantoprazol 2020-0 Yes [id number] 40mg Take 1 [facility] e 40 mg EC 3-24 tablet by ity of tablet 00:00: mouth 2 [place] 00 (two) Medical times Branch daily. famotidine 2020-0 Yes [id number] 20mg Take 1 [facility] (PEPCID AC) 3-24 tablet by ity of 20 mg 00:00: mouth 2 [place] tablet 00 (two) Medical times Branch daily. famotidine 2020-0 2023- No [id number] 20mg Take 1 [facility] (PEPCID AC) 3-24 01-10 tablet by it y of 20 mg 00:00: 00:00 mouth 2 [place] tablet 00 :00 (two) Medical times Branch daily. famotidine 2019-2022- No [id number] 20mg Take 1 [facility] (PEPCID AC) 07-07-10 tablet by it y of 20 mg 00:00: 00:00 mouth 2 [place] tablet 00 :00 (two) Medical times Branch daily. famotidine 2019-2022- No [id number] 20mg Take 1 [facility] (PEPCID AC) 07-07-10 tablet by it y of 20 mg 00:00: 00:00 mouth 2 [place] tablet 00 :00 (two) Medical times Branch daily. famotidine 2022- No [id number] 20mg Take 1 [facility] (PEPCID AC) 07-07 tablet by it y of 20 mg 00:00: 00:00 mouth 2 [place] tablet 00 :00 (two) Medical times Branch daily. famotidine 2022- No [id number] 20mg Take 1 [facility] (PEPCID AC) 07-07 tablet by it y of 20 mg 00:00: 00:00 mouth 2 [place] tablet 00 :00 (two) Medical times Branch daily. famotidine 2022- No [id number] 20mg Take 1 [facility] (PEPCID AC) 07-07 tablet by it y of 20 mg 00:00: 00:00 mouth 2 [place] tablet 00 :00 (two) Medical times Branch daily. phenytoin 2019- No [id number] 400mg Take 4 [facility] Extended 07-07- capsules ity of (DILANTIN) 00:00: 00:00 by mouth [place] 100 mg 00 :00 daily. Medical capsule Branch FLUoxetine 2019- No 40mg Take 1 Univ ers (PROZAC) 40 07-07- capsule by i ty of mg capsule 00:00: 00:00 mouth [place] 00 :00 daily. Medical Branch cholestyram 2019- 2020- No [id number] 2g Take 0.5 [facility] ine 4 gram 07-07- Packets by it y of powder 00:00: 00:00 mouth 3 [place] 00 :00 (three) Medical times Branch daily with meals. pantoprazol 2019-2019- No [id number] 40mg Take 1 [facility] e 40 mg EC 07-07- tablet by ity of tablet 00:00: 00:00 mouth 2 [place] 00 :00 (two) Medical times Branch daily. clonazePAM 2020-0 2020- No [id number] 1mg Take 1 [facility] 1 mg tablet 07-07- tablet by it y of 00:00: 00:00 mouth once [place] 00 :00 daily as Medical needed Branch (panic attack). clonazePAM 2019-0 2020- No [id number] 1mg Take 1 [facility] 1 mg tablet 07-07-24 tablet by it y of 00:00: 00:00 mouth 3 [place] 00 :00 (three) Medical times Branch daily. levothyroxi 2020-0 Yes [id number] 150ug Take 1 [facility] ne 150 mcg 3-12 tablet by ity of tablet 00:00: mouth [place] 00 every Medical morning. Branch levothyroxi 2020-0 Yes [id number] 150ug Take 1 [facility] ne 150 mcg 3-12 tablet by ity of tablet 00:00: mouth [place] 00 every Medical morning. Branch levothyroxi 2020-0 Yes [id number] 150ug Take 1 [facility] ne 150 mcg 3-12 tablet by ity of tablet 00:00: mouth [place] 00 every Medical morning. Branch levothyroxi 2020-0 Yes [id number] 150ug Take 1 [facility] ne 150 mcg 3-12 tablet by ity of tablet 00:00: mouth [place] 00 every Medical morning. Branch levothyroxi 2020-0 Yes [id number] 150ug Take 1 [facility] ne 150 mcg 3-12 tablet by ity of tablet 00:00: mouth [place] 00 every Medical morning. Branch levothyroxi 2020-0 Yes [id number] 150ug Take 1 [facility] ne 150 mcg 3-12 tablet by ity of tablet 00:00: mouth [place] 00 every Medical morning. Branch levothyroxi 2020-0 Yes [id number] 150ug Take 1 [facility] ne 150 mcg 3-12 tablet by ity of tablet 00:00: mouth [place] 00 every Medical morning. Branch levothyroxi 2020-0 Yes [id number] 150ug Take 1 [facility] ne 150 mcg 3-12 tablet by ity of tablet 00:00: mouth [place] 00 every Medical morning. Branch levothyroxi 2020-0 Yes [id number] 150ug Take 1 [facility] ne 150 mcg 3-12 tablet by ity of tablet 00:00: mouth [place] 00 every Medical morning. Branch levothyroxi 2020-0 Yes [id number] 150ug Take 1 [facility] ne 150 mcg 3-12 tablet by ity of tablet 00:00: mouth [place] 00 every Medical morning. Branch levothyroxi 2020-0 Yes [id number] 150ug Take 1 [facility] ne 150 mcg 3-12 tablet by ity of tablet 00:00: mouth [place] 00 every Medical morning. Branch levothyroxi 2020-0 Yes [id number] 150ug Take 1 [facility] ne 150 mcg 3-12 tablet by ity of tablet 00:00: mouth [place] 00 every Medical morning. Branch levothyroxi 2020-0 Yes [id number] 150ug Take 1 [facility] ne 150 mcg 3-12 tablet by ity of tablet 00:00: mouth [place] 00 every Medical morning. Branch levothyroxi 2020-0 Yes [id number] 150ug Take 1 [facility] ne 150 mcg 3-12 tablet by ity of tablet 00:00: mouth [place] 00 every Medical morning. Branch levothyroxi 2020-0 Yes [id number] 150ug Take 1 [facility] ne 150 mcg 3-12 tablet by ity of tablet 00:00: mouth [place] 00 every Medical morning. Branch levothyroxi 2020-0 Yes [id number] 150ug Take 1 [facility] ne 150 mcg 3-12 tablet by ity of tablet 00:00: mouth [place] 00 every Medical morning. Branch levothyroxi 2020-0 Yes [id number] 150ug Take 1 [facility] ne 150 mcg 3-12 tablet by ity of tablet 00:00: mouth [place] 00 every Medical morning. Branch levothyroxi 2020-0 Yes [id number] 150ug Take 1 [facility] ne 150 mcg 3-12 tablet by ity of tablet 00:00: mouth [place] 00 every Medical morning. Branch levothyroxi 2020-0 Yes [id number] 150ug Take 1 [facility] ne 150 mcg 3-12 tablet by ity of tablet 00:00: mouth [place] 00 every Medical morning. Branch levothyroxi 2020-0 Yes [id number] 150ug Take 1 [facility] ne 150 mcg 3-12 tablet by ity of tablet 00:00: mouth [place] 00 every Medical morning. Branch levothyroxi 2020-0 Yes [id number] 150ug Take 1 [facility] ne 150 mcg 3-12 tablet by ity of tablet 00:00: mouth [place] 00 every Medical morning. Branch levothyroxi 2020-0 Yes [id number] 150ug Take 1 [facility] ne 150 mcg 3-12 tablet by ity of tablet 00:00: mouth [place] 00 every Medical morning. Branch levothyroxi 2020-0 2020- No [id number] 150ug Take 1 [facility] ne 150 mcg 324 tablet by ity of tablet 00:00: 00:00 mouth [place] 00 :00 every Medical morning. Branch levothyroxi 2020-0 2020- No [id number] 150ug Take 1 [facility] ne 150 mcg 3-24 tablet by ity of tablet 00:00: 00:00 mouth [place] 00 :00 every Medical morning. Branch oseltamivir 2020-0 Yes [id number] 75mg Take 1 U nivers 75 mg 1-28 capsule by ity of capsule 00:00: mouth [place] (two) Medical times Branch daily. oseltamivir 2020-0 Yes [id number] 75mg Take 1 U nivers 75 mg 1-28 capsule by ity of capsule 00:00: mouth [place] (two) Medical times Branch daily. oseltamivir 2020-0 Yes [id number] 75mg Take 1 U nivers 75 mg 1-28 capsule by ity of capsule 00:00: mouth [address] [place] [address] (two) Medical times Branch daily. oseltamivir 2020-0 Yes [id number] 75mg Take 1 U nivers 75 mg 1-28 capsule by ity of capsule 00:00: mouth [address] [place] [address] (two) Medical times Branch daily. oseltamivir 2020-0 Yes [id number] 75mg Take 1 U nivers 75 mg 1-28 capsule by ity of capsule 00:00: mouth [place] (two) Medical times Branch daily. oseltamivir 2020-0 Yes [id number] 75mg Take 1 U nivers 75 mg 1-28 capsule by ity of capsule 00:00: mouth [place] (two) Medical times Branch daily. oseltamivir 2020-0 Yes [id number] 75mg Take 1 U nivers 75 mg 1-28 capsule by ity of capsule 00:00: mouth [place] (two) Medical times Branch daily. oseltamivir 2020-0 Yes [id number] 75mg Take 1 U nivers 75 mg 1-28 capsule by ity of capsule 00:00: mouth [place] (two) Medical times Branch daily. oseltamivir 2020-0 Yes [id number] 75mg Take 1 U nivers 75 mg 1-28 capsule by ity of capsule 00:00: mouth [address] [place] [address] (two) Medical times Branch daily. oseltamivir 2020-0 Yes [id number] 75mg Take 1 U nivers 75 mg 1-28 capsule by ity of capsule 00:00: mouth (two) Medical times Branch daily. oseltamivir 2020-0 Yes [id number] 75mg Take 1 U nivers 75 mg 1-28 capsule by ity of capsule 00:00: mouth (two) Medical times Branch daily. oseltamivir 2020-0 Yes [id number] 75mg Take 1 U nivers 75 mg 1-28 capsule by ity of capsule 00:00: mouth (two) Medical times Branch daily. oseltamivir 2020-0 Yes [id number] 75mg Take 1 U nivers 75 mg 1-28 capsule by ity of capsule 00:00: mouth [place] (two) Medical times Branch daily. oseltamivir 2020-0 Yes [id number] 75mg Take 1 U nivers 75 mg 1-28 capsule by ity of capsule 00:00: mouth [place] (two) Medical times Branch daily. oseltamivir 2020-0 Yes [id number] 75mg Take 1 U nivers 75 mg 1-28 capsule by ity of capsule 00:00: mouth [place] (two) Medical times Branch daily. oseltamivir 2020-0 Yes [id number] 75mg Take 1 U nivers 75 mg 1-28 capsule by ity of capsule 00:00: mouth [place] (two) Medical times Branch daily. oseltamivir 2020-0 Yes [id number] 75mg Take 1 U nivers 75 mg 1-28 capsule by ity of capsule 00:00: mouth [place] (two) Medical times Branch daily. oseltamivir 2020-0 Yes [id number] 75mg Take 1 U nivers 75 mg 1-28 capsule by ity of capsule 00:00: mouth [place] (two) Medical times Branch daily. oseltamivir 2020-0 Yes [id number] 75mg Take 1 U nivers 75 mg 1-28 capsule by ity of capsule 00:00: mouth [place] (two) Medical times Branch daily. oseltamivir 2020-0 Yes [id number] 75mg Take 1 U nivers 75 mg 1-28 capsule by ity of capsule 00:00: mouth 2 [place] (two) Medical times Branch daily. oseltamivir 2020-0 Yes [id number] 75mg Take 1 U nivers 75 mg 1-28 capsule by ity of capsule 00:00: mouth 2 [place] 00 (two) Medical times Branch daily. oseltamivir 2020-0 Yes [id number] 75mg Take 1 U nivers 75 mg 1-28 capsule by ity of capsule 00:00: mouth 2 [place] 00 (two) Medical times Branch daily. oseltamivir 2020-0 Yes [id number] 75mg Take 1 U nivers 75 mg 1-28 capsule by ity of capsule 00:00: mouth 2 [place] 00 (two) Medical times Branch daily. oseltamivir 2020-0 Yes [id number] 75mg Take 1 U nivers 75 mg 1-28 capsule by ity of capsule 00:00: mouth 2 [place] 00 (two) Medical times Branch daily. oseltamivir 2020-0 Yes [id number] 75mg Take 1 U nivers 75 mg 1-28 capsule by ity of capsule 00:00: mouth 2 [place] 00 (two) Medical times Branch daily. oseltamivir 2020-0 Yes [id number] 75mg Take 1 U nivers 75 mg 1-28 capsule by ity of capsule 00:00: mouth [address] [place] [address] (two) Medical times Branch daily. oseltamivir 2020-0 Yes [id number] 75mg Take 1 U nivers 75 mg 1-28 capsule by ity of capsule 00:00: mouth [address] [place] [address] 00 (two) Medical times Branch daily. oseltamivir 2020-0 Yes [id number] 75mg Take 1 U nivers 75 mg 1-28 capsule by ity of capsule 00:00: mouth [address] [place] [address] 00 (two) Medical times Branch daily. oseltamivir 2020-0 2020- No [id number] 75mg Take 1 [facility] 75 mg 1-28 05-19 capsule by ity of capsule 00:00: 00:[address] [place] [address] 00 :00 (two) Medical times Branch daily. pantoprazol 2018-04 2020- No [id number] 40mg Take 1 [facility] e 40 mg EC 2-20 03-20 tablet by ity of tablet 00:00: 04:59 mouth [place] 00 :00 daily for Medical 90 days. Branch pantoprazol 2018-04 2020- No [id number] 40mg Take 1 [facility] e 40 mg EC 2-20 03-20 tablet by ity of tablet 00:00: 04:59 mouth [place] 00 :00 daily for Medical 90 days. Branch pantoprazol 2018-04 2020- No [id number] 40mg Take 1 [facility] e 40 mg EC 220 -20 tablet by ity of tablet 00:00: [...] Puffs ity of mcg/actuati 00:00: every 6 [place] on inhaler 00 (six) Medical hours [...] [place] 00 every Medical morning. Branch albuterol 2018- Yes 2{puff} Inhale 2 U nivers 90 5-17 Puffs ity of mcg/actuati 00:00: every 6 [place] on inhaler 00 (six) Medical hours as Branch needed for Wheezing or Shortness of Breath. phenytoin 2018-0 Yes 100mg Take 1 Unive rs Extended 5-17 capsule by ity o f 100 mg 00:00: mouth 3 [place] capsule 00 (three) Medical times Branch daily. albuterol 2018- Yes 2{puff} Inhale 2 U nivers 90 [...] by ity of tablet 00:00: mouth at [place] 00 bedtime. Medical Branch albuterol 2017-0 Yes 2{puff} Inhale 2 U nivers 90 5-17 Puffs ity of mcg/actuati 00:00: every 6 [place] on inhaler 00 (six) Medical hours as Branch needed for Wheezing or Shortness of Breath. pantoprazol 2018-0 Yes 40mg Take 1 Univ ers e 40 mg EC 5-17 tablet by ity of tablet 00:00: mouth [place] 00 daily. Medical Branch clonazePAM 2018-0 Yes [id number] 1 tablet [facility] 1 mg tablet 5-17 [...] by ity of tablet 00:00: mouth at [place] 00 bedtime. Medical Branch pantoprazol Yes 40mg Take 1 Univ ers e 40 mg EC 5-17 tablet by ity of tablet 00:00: mouth 00 daily. Medical Branch albuterol Yes 2{puff} Inhale 2 U nivers 90 5-17 Puffs ity of mcg/actuati 00:00: every 6 [place] on inhaler 00 (six) Medical hours as Branch needed for Wheezing or Shortness of Breath. clonazePAM Yes [id number] 1 tablet [facility] 1 mg tablet 5-17 [...] for Wheezing or Shortness of Breath. levothyroxi Yes 150ug Take 1 Uni vers ne 150 mcg 5-17 tablet by ity of tablet 00:00: mouth [place] 00 every Medical morning. Branch QUEtiapine Yes [...] by ity of tablet 00:00: mouth at [place] 00 bedtime. Medical Branch albuterol Yes 2{puff} [...] tablet by ity of tablet 00:00: mouth [place] 00 every Medical morning. Branch albuterol 2018-0 Yes 2{puff} Inhale 2 U nivers 90 5-17 Puffs ity of mcg/actuati 00:00: every 6 [place] on inhaler 00 (six) Medical hours as Branch needed for Wheezing or Shortness of Breath. QUEtiapine Yes Take 25 mg U nivers 50 mg 5-17 ( half a ity of tablet 00:00: tablet) in [place] 00 the Medical morning Branch and 150mg (3 tablets) at night traZODone 2017- Yes 225mg Take 1.5 Uni vers 150 mg 5-17 tablets by ity of tablet 00:00: mouth at [place] 00 bedtime. Medical Branch albuterol Yes 2{puff} [...] a ity of tablet 00:00: tablet) in [place] 00 the Medical morning Branch and 150mg (3 tablets) at night traZODone 2018-0 Yes 225mg Take 1.5 Uni vers 150 mg 5-17 tablets by ity of tablet 00:00: mouth at [place] 00 bedtime. Medical Branch albuterol 2017- Yes [...] a ity of tablet 00:00: tablet) in [place] 00 the Medical morning Branch and 150mg [...] by ity of tablet 00:00: mouth at [place] 00 bedtime. Medical Branch albuterol 2018-0 Yes [...] a ity of tablet 00:00: tablet) in [place] 00 the Medical morning Branch and 150mg (3 tablets) at night traZODone 2018-0 Yes 225mg Take 1.5 Uni vers 150 mg 5-17 tablets by ity of tablet 00:00: mouth at [place] 00 bedtime. Medical Branch albuterol 2017-0 Yes [...] ity of tablet 00:00: 00:00 tablet) in [facility] 00 :00 the Medical morning Branch and 150mg (3 tablets) at night traZODone 2019- No 225mg Take 1.5 Un maria isabel 150 mg 5-17 -24 tablets by ity of tablet 00:00: 00:00 mouth at [place] 00 :00 bedtime. Medical Branch levothyroxi 2019- No 150ug Take 1 Un maria isabel ne 150 mcg 5-17 -12 tablet by ity of tablet 00:00: 00:00 mouth [place] 00 :00 every Medical morning. Branch Vital Signs Vital Name Observation Time Observation Value Comments Source Systolic blood 2022-10-08 06:04:00 116 [facility] Diastolic blood 2022-10-08 06:04:00 80 mm[Hg] [facility] [place] Heart rate 2022-10-08 06:04:00 58 /min [facility] Respiratory rate 2022-10-08 06:04:00 20 /min [facility] Oxygen saturation in 2022-10-08 06:04:00 95 /min [facility] Arterial blood by [facility] Pulse oximetry Branch Body temperature 2022-10-08 03:44:00 36.67 Rachel [facility] Body weight 2022-10-08 03:44:00 74.844 kg [facility] BMI 2022-10-08 03:44:00 28.32 kg/m2 [facility] Systolic blood 2022-07-28 13:43:00 157 mm[Hg] Univer sity of pressure [facility] Diastolic blood 2022-07-28 13:43:00 85 mm[Hg] Unive rsity of pressure [facility] Heart rate 2022-07-28 13:43:00 78 /min Universi ty of [facility] Body temperature 2022-07-28 13:43:00 35.94 Rachel Univ ersity of [facility] Body height 2022-07-28 13:43:00 162.6 cm Universi ty of [facility] Body weight 2022-07-28 13:43:00 74.844 kg Universi ty of [facility] BMI 2022-07-28 13:43:00 28.32 kg/m2 Universi ty of [facility] Systolic blood 2022-07-23 04:56:00 125 mm[Hg] Univer sity of pressure [facility] Diastolic blood 2022-07-23 04:56:00 83 mm[Hg] Unive rsity of [facility] Heart rate 2022-07-23 04:56:00 67 /min Universi ty of [facility] Respiratory rate 2022-07-23 04:56:00 18 /min Univ ersity of [facility] Oxygen saturation in 2022-07-23 04:56:00 97 /min University of Arterial blood by [facility] Pulse oximetry [place] Body temperature 2022-07-23 00:40:00 37.06 Rachel Univ ersity of [facility] Body weight 2022-07-23 00:40:00 79.379 kg Universi ty of [facility] BMI 2022-07-23 00:40:00 30.04 kg/m2 Universi ty of [facility] Systolic blood 2022-04-25 18:59:00 133 mm[Hg] Univer sity of pressure [facility] Diastolic blood 2022-04-25 18:59:00 82 mm[Hg] Unive rsity of pressure [facility] Heart rate 2022-04-25 18:55:00 81 /min Universi ty of [facility] Body temperature 2022-04-25 18:55:00 36.61 Rachel [facility] ersity of [facility] Respiratory rate 2022-04-25 18:55:00 20 /min Univ ersity of [facility] Body height 2022-04-25 18:55:00 162.6 cm [facility] [place] [facility] Body weight 2022-04-25 18:55:00 78.291 kg [facility]i [facility] [place] [facility] BMI 2022-04-25 18:55:00 29.63 kg/m2 [facility] ty [facility] [place] [facility] Oxygen saturation in 2022-04-25 18:55:00 99 /min room air University of Arterial blood by [facility] Pulse oximetry Branch Systolic blood 2019-12-02 14:54:00 133 mm[Hg] Univer sity of pressure [place] [facility] Diastolic blood 2019-12-02 14:54:00 87 mm[Hg] Unive rsity of pressure [place] [facility] Heart rate 2019-12-02 14:54:00 73 /min [facility]i [facility] [place] [facility] Body temperature 2019-12-02 14:12:00 36.56 Rachel [facility] ers[facility] [place] [facility] Body height 2019-12-02 14:12:00 165.1 cm [facility] [place] [facility] Body weight 2019-12-02 14:12:00 94.167 kg [facility] [place] [facility] BMI 2019-12-02 14:12:00 34.55 kg/m2 [facility] [place] [facility] Oxygen saturation in 2019-12-02 14:12:00 100 /min room air University of Arterial blood by [facility] Pulse oximetry Branch Systolic blood 2019-12-02 14:54:00 133 mm[Hg] Univer sity of pressure [place] [facility] Diastolic blood 2019-12-02 14:54:00 87 mm[Hg] Unive rsity of pressure [place] [facility] Heart rate 2019-12-02 14:54:00 73 /min [facility] [place] [facility] Body temperature 2019-12-02 14:12:00 36.56 Rachel [facility] [place] [facility] Body height 2019-12-02 14:12:00 165.1 cm [facility] [place] [facility] Body weight 2019-12-02 14:12:00 94.167 kg [facility] [place] [facility] BMI 2019-12-02 14:12:00 34.55 kg/m2 [facility] [place] [facility] Oxygen saturation in 2019-12-02 14:12:00 100 /min room air University of Arterial blood by [facility] Pulse oximetry Branch Systolic blood 2022-07-28 19:11:27 132 mm[Hg] [facility] Diastolic blood 2022-07-28 19:11:27 90 mm[Hg] [facility] pressure Heart rate 2022-07-28 19:11:27 86 /min [facility] Body temperature 2022-07-28 19:11:[address] [facility] Respiratory rate 2022-07-28 19:11:27 18 /min [facility] Oxygen saturation in 2022-07-28 19:11:27 97 /min [facility] Arterial blood by Pulse oximetry Body height 2022-07-28 15:47:00 162.6 cm [facility] Body weight 2022-07-28 15:47:00 74.844 kg [facility] BMI 2022-07-28 15:47:00 28.32 kg/m2 [facility] [facility] BP Systolic 2021-11-25 19:02:00 BP [...] Date / Time Performing Clinician Source Performed POCT TEST 2022-10-08 04:30:00 Mariia Curran [facility] CT PELVIS WO CONTRAST 2022-07-28 17:40[facility]00 [facility] WITH PLATELET AND 2022-07-28 16:40:00 [facility] DIFFERENTIAL COMPREHENSIVE METABOLIC 2022-07-28 16:40:00 [facility]asm[facility]hotra [facility] 2022-07-28 16:40:00 Yasmany Ghotraist Ho spital XR FEMUR 2 VW RIGHT 2022-07-28 16:20:00 [facility]EL[facility] 1 OR 2 VW 2022-07-28 16:20:00 [facility] COMP. METABOLIC PANEL 2022-07-23 02:02:00 Lisa Murillo [facility] ([id number]) [facility] CBC WITH DIFF 2022-07-23 02:02:00 Lisa Murillo [facility] URINALYSIS 2022-07-23 01:59:00 Lisa Murillo [facility] CONSENT/REFUSAL FOR 2022-07-23 00:34:52 Doctor Unassigned, No [facility] DIAGNOSIS AND TREATMENT [facility] ASSIGNMENT OF BENEFITS 2022-06-15 19:19:00 Doctor Unassigned, No [facility] Name [facility] REFERRAL- 2022-01-10 05:01:00 Doctor Unassigned, No [facility] REQUEST/RESPONSE Name [facility] Plan of Care Planned Activity Planned Date Details Comments Source Future Scheduled 2022-10-05 Scre[facility] Test 04:19:15 malignant neoplasm of colon (procedure) [code = 819173877] Future Scheduled 2022-10-05 [facility] for [facility] Test 04:19:15 malignant neoplasm of colon (procedure) [code = 223437492] Future Scheduled 2022-10-05 [facility] for [facility] Test 04:19:15 malignant neoplasm of colon (procedure) [code = 081214105] Future Scheduled 2022-10-05 COVID-19 VACCINE (#1) [facility] Test 04:19:15 [code = COVID-19 VACCINE (#1)] Future Scheduled 2022-10-05 Hepatitis C screening [facility] Test 04:19:15 (procedure) [code = 277712833] Future Scheduled 2022-10-05 [facility] for [facility] Test 04:19:15 malignant neoplasm of cervix (procedure) [code = 609159948] Future Scheduled 2022-10-05 BREAST CANCER [facility] Test 04:19:15 SCREENING [code = BREAST CANCER SCREENING] Future Scheduled 2022-10-05 [facility] Test 04:19:15 malignant neoplasm of colon (procedure) [code = 468118067] Future Scheduled 2022-10-05 [facility] Test 04:19:15 malignant neoplasm of colon (procedure) [code = 111234842] Future Scheduled 2022-10-05 [facility] 04:19:15 [code = INFLUENZA VACCINE] Future Scheduled 2022-08-10 COVID-19 VACCINE (#1) [facility] Test 13:16:26 [code = COVID-19 VACCINE (#1)] Future Scheduled 2022-08-10 Hepatitis C screening [facility] Test 13:16:26 (procedure) [code = 236408273] Future Scheduled 2022-08-10 [facility] Test 13:16:26 malignant neoplasm of cervix (procedure) [code = 547739297] Future Scheduled 2022-08-10 BRE[facility] Test 13:16:26 SCREENING [code = BREAST CANCER SCREENING] Future Scheduled 2022-08-10 COLONOSCOPY SCREENING [facility] Test 13:16:26 [code = COLONOSCOPY SCREENING] Future Scheduled 2022-08-10 [facility]ACCINE [facility] Test 13:16:26 [code = INFLUENZA VACCINE] Future Scheduled 2022-08-08 COVID-19 VACCINE (#1) [facility] Test 01:29:04 [code = COVID-19 VACCINE (#1)] Future Scheduled 2022-08-08 Hepatitis C screening [facility] Test 01:29:04 (procedure) [code = 139745339] Future Scheduled 2022-08-08 [facility] Test 01:29:04 malignant neoplasm of cervix (procedure) [code = 438303557] Future Scheduled 2022-08-08 BRE[facility] Test 01:29:04 SCREENING [code = BREAST CANCER SCREENING] Future Scheduled 2022-08-08 COLONOSCOPY SCREENING [facility] Test 01:29:04 [code = COLONOSCOPY SCREENING] Future Scheduled 2022-08-08 [facility]ACCINE [facility] Test 01:29:04 [code = INFLUENZA VACCINE] Goal Plan of Care Note [code = 02895-4] Goal Plan of Care Note [code = 18349-5] Goal Plan of Care Note [code = 14669-9] Goal Plan of Care Note [code = 77800-8] Goal Plan of Care Note [code = 58871-9] Goal Plan of Care Note [code = 91734-5] Goal Plan of Care Note [code = 19573-5] Goal Plan of Care Note [code = 25598-0] Goal Plan of Care Note [code = 12512-7] Goal Plan of Care Note [code = 88100-0] Goal Plan of Care Note [code = 43091-3] Goal Plan of Care Note [code = 38315-3] Goal Plan of Care Note [code = 89378-9] Goal Plan of Care Note [code = 72466-4] Goal Plan of Care Note [code = 41822-7] Goal Plan of Care Note [code = 91075-7] Goal Plan of Care Note [code = 53233-1] Goal Plan of Care Note [code = 57044-1] Goal Plan of Care Note [code = 19319-9] Goal Plan of Care Note [code = 80007-1] Goal Plan of Care Note [code = 92261-5] Goal Plan of Care Note [code = 84042-8] Goal Plan of Care Note [code = 56367-9] Goal Plan of Care Note [code = 60423-8] Goal Plan of Care Note [code = 72245-9] Goal Plan of Care Note [code = 40849-4] Goal Plan of Care Note [code = 77960-5] Goal Plan of Care Note [code = 43939-9] Goal Plan of Care Note [code = 45516-2] Goal Plan of Care Note [code = 10694-1] Goal Plan of Care Note [code = 83795-1] Goal Plan of Care Note [code = 00813-1] Goal Plan of Care Note [code = 90705-0] Goal Plan of Care Note [code = 05852-0] Goal Plan of Care Note [code = 26667-5] Goal Plan of Care Note [code = 34820-1] Goal Plan of Care Note [code = 45971-4] Goal Plan of Care Note [code = 82258-3] Goal Plan of Care Note [code = 61442-1] Goal Plan of Care Note [code = 10135-2] Goal Plan of Care Note [code = 09701-7] Goal Plan of Care Note [code = 68431-3] Goal Plan of Care Note [code = 19788-9] Goal Plan of Care Note [code = 11563-2] Goal Plan of Care Note [code = 55464-2] Goal Plan of Care Note [code = 48200-8] Goal Plan of Care Note [code = 49119-6] Goal Plan of Care Note [code = 12493-9] Goal Plan of Care Note [code = 09172-4] Goal Plan of Care Note [code = 41010-5] Goal Plan of Care Note [code = 70826-0] Goal Plan of Care Note [code = 03872-4] Goal Plan of Care Note [code = 91483-9] Goal Plan of Care Note [code = 21305-8] Goal Plan of Care Note [code = 07442-3] Goal Plan of Care Note [code = 64682-6] Goal Plan of Care Note [code = 71609-1] Goal Plan of Care Note [code = 91959-6] Goal Plan of Care Note [code = 30699-4] Goal Plan of Care Note [code = 51592-2] Goal Plan of Care Note [code = 93362-3] Goal Plan of Care Note [code = 02143-5] Goal Plan of Care Note [code = 74197-3] Goal Plan of Care Note [code = 58203-1] Goal Plan of Care Note [code = 25350-4] Goal Plan of Care Note [code = 81977-9] Goal Plan of Care Note [code = 54266-7] Goal Plan of Care Note [code = 23928-9] Goal Plan of Care Note [code = 88979-5] Goal Plan of Care Note [code = 79615-6] Goal Plan of Care Note [code = 86401-7] Goal Plan of Care Note [code = 93514-1] Goal Plan of Care Note [code = 60963-0] Goal Plan of Care Note [code = 60263-1] Goal Plan of Care Note [code = 74667-1] Goal Plan of Care Note [code = 06555-4] Goal Plan of Care Note [code = 45277-2] Goal Plan of Care Note [code = 38748-7] Goal Plan of Care Note [code = 34429-0] Goal Plan of Care Note [code = 33816-6] Goal Plan of Care Note [code = 94384-6] Goal Plan of Care Note [code = 05226-1] Goal Plan of Care Note [code = 21753-6] Goal Plan of Care Note [code = 83623-4] Goal Plan of Care Note [code = 33646-2] Goal Plan of Care Note [code = 31390-1] Goal Plan of Care Note [code = 62533-9] Goal Plan of Care Note [code = 92116-8] Goal Plan of Care Note [code = 64458-8] Goal Plan of Care Note [code = 60050-7] Goal Plan of Care Note [code = 43389-4] Goal Plan of Care Note [code = 07348-4] Goal Plan of Care Note [code = 33295-8] Goal Plan of Care Note [code = 83665-6] Goal Plan of Care Note [code = 73222-2] Goal Plan of Care Note [code = 07062-7] Goal Plan of Care Note [code = 75057-8] Goal Plan of Care Note [code = 98692-7] Goal Plan of Care Note [code = 37164-3] Goal Plan of Care Note [code = 64437-2] Goal Plan of Care Note [code = 75124-7] Goal Plan of Care Note [code = 93172-3] Goal Plan of Care Note [code = 26101-1] Goal Plan of Care Note [code = 09168-4] Goal Plan of Care Note [code = 32131-4] Goal Plan of Care Note [code = 76572-4] Goal Plan of Care Note [code = 51231-6] Goal Plan of Care Note [code = 73903-6] Goal Plan of Care Note [code = 24165-2] Goal Plan of Care Note [code = 77961-6] Goal Plan of Care Note [code = 98131-5] Goal Plan of Care Note [code = 86601-7] Goal Plan of Care Note [code = 64758-2] Goal Plan of Care Note [code = 48383-2] Goal Plan of Care Note [code = 85212-4] Goal Plan of Care Note [code = 87103-1] Goal Plan of Care Note [code = 38695-1] Goal Plan of Care Note [code = 19089-5] Goal Plan of Care Note [code = 02372-0] Goal Plan of Care Note [code = 77590-7] Goal Plan of Care Note [code = 04110-8] Goal Plan of Care Note [code = 84320-8] Goal Plan of Care Note [code = 98051-5] Goal Plan of Care Note [code = 18357-3] Goal Plan of Care Note [code = 51287-1] Goal Plan of Care Note [code = 76487-8] Goal Plan of Care Note [code = 52411-4] Goal Plan of Care Note [code = 38692-0] Goal Plan of Care Note [code = 19383-4] Goal Plan of Care Note [code = 44487-7] Goal Plan of Care Note [code = 72213-0] Goal Plan of Care Note [code = 08176-7] Goal Plan of Care Note [code = 55983-9] Goal Plan of Care Note [code = 58510-5] Goal Plan of Care Note [code = 82357-7] Goal Plan of Care Note [code = 31668-0] Goal Plan of Care Note [code = 54910-5] Goal Plan of Care Note [code = 18821-7] Goal Plan of Care Note [code = 93362-4] Goal Plan of Care Note [code = 97992-1] Goal Plan of Care Note [code = 02408-1] Goal Plan of Care Note [code = 49453-0] Goal Plan of Care Note [code = 29090-4] Goal Plan of Care Note [code = 29266-0] Goal Plan of Care Note [code = 56386-9] Goal Plan of Care Note [code = 94867-7] Goal Plan of Care Note [code = 04703-5] Goal Plan of Care Note [code = 92134-0] Goal Plan of Care Note [code = 70148-5] Goal Plan of Care Note [code = 32866-0] Goal Plan of Care Note [code = 60507-1] Goal Plan of Care Note [code = 67170-9] Goal Plan of Care Note [code = 56329-0] Goal Plan of Care Note [code = 83053-1] Goal Plan of Care Note [code = 79176-3] Goal Plan of Care Note [code = 76628-0] Goal Plan of Care Note [code = 56000-8] Goal Plan of Care Note [code = 57586-2] Goal Plan of Care Note [code = 08597-7] Goal Plan of Care Note [code = 26826-8] Goal Plan of Care Note [code = 82383-6] Goal Plan of Care Note [code = 74159-1] Goal Plan of Care Note [code = 39832-2] Goal Plan of Care Note [code = 13399-5] Goal Plan of Care Note [code = 07313-1] Goal Plan of Care Note [code = 47758-3] Goal Plan of Care Note [code = 43941-6] Goal Plan of Care Note [code = 49566-1] Goal Plan of Care Note [code = 03169-5] Goal Plan of Care Note [code = 85434-9] Goal Plan of Care Note [code = 19515-5] Goal Plan of Care Note [code = 43107-3] Goal Plan of Care Note [code = 20136-3] Goal Plan of Care Note [code = 72978-5] Goal Plan of Care Note [code = 29657-8] Goal Plan of Care Note [code = 86807-6] Goal Plan of Care Note [code = 62993-6] Goal Plan of Care Note [code = 86923-7] Goal Plan of Care Note [code = 73125-3] Goal Plan of Care Note [code = 58905-1] Goal Plan of Care Note [code = 70020-8] Goal Plan of Care Note [code = 05530-7] Goal Plan of Care Note [code = 26301-7] Goal Plan of Care Note [code = 27403-1] Goal Plan of Care Note [code = 56941-5] Goal Plan of Care Note [code = 13591-2] Goal Plan of Care Note [code = 77047-2] Goal Plan of Care Note [code = 30100-9] Goal Plan of Care Note [code = 54499-4] Goal Plan of Care Note [code = 37784-1] Goal Plan of Care Note [code = 25707-4] Goal Plan of Care Note [code = 63402-8] Goal Plan of Care Note [code = 04975-5] Goal Plan of Care Note [code = 61486-2] Goal Plan of Care Note [code = 91238-1] Goal Plan of Care Note [code = 50148-5] Goal Plan of Care Note [code = 32118-3] Goal Plan of Care Note [code = 55329-8] Goal Plan of Care Note [code = 69812-7] Goal Plan of Care Note [code = 63696-3] Goal Plan of Care Note [code = 11589-7] Goal Plan of Care Note [code = 52092-8] Goal Plan of Care Note [code = 74544-3] Goal Plan of Care Note [code = 23413-0] Goal Plan of Care Note [code = 71985-5] Goal Plan of Care Note [code = 10430-4] Goal Plan of Care Note [code = 86575-1] Goal Plan of Care Note [code = 69916-5] Goal Plan of Care Note [code = 03410-9] Goal Plan of Care Note [code = 40294-9] Goal Plan of Care Note [code = 34143-6] Goal Plan of Care Note [code = 32781-6] Goal Plan of Care Note [code = 52894-2] Goal Plan of Care Note [code = 98232-1] Goal Plan of Care Note [code = 36240-7] Goal Plan of Care Note [code = 31854-5] Goal Plan of Care Note [code = 87950-2] Goal Plan of Care Note [code = 84974-0] Goal Plan of Care Note [code = 95762-7] Goal Plan of Care Note [code = 32535-9] Goal Plan of Care Note [code = 78260-9] Goal Plan of Care Note [code = 82138-2] Goal Plan of Care Note [code = 00428-8] Goal Plan of Care Note [code = 70168-5] Goal Plan of Care Note [code = 13030-0] Goal Plan of Care Note [code = 94377-3] Goal Plan of Care Note [code = 15319-0] Goal Plan of Care Note [code = 71256-6] Goal Plan of Care Note [code = 75746-9] Goal Plan of Care Note [code = 11092-2] Goal Plan of Care Note [code = 52567-6] Goal Plan of Care Note [code = 90370-0] Goal Plan of Care Note [code = 57214-0] Goal Plan of Care Note [code = 42281-9] Goal Plan of Care Note [code = 93628-4] Goal Plan of Care Note [code = 89897-6] Goal Plan of Care Note [code = 44138-4] Goal Plan of Care Note [code = 25226-5] Goal Plan of Care Note [code = 52623-2] Goal Plan of Care Note [code = 27705-2] Goal Plan of Care Note [code = 53506-4] Goal Plan of Care Note [code = 02987-2] Goal Plan of Care Note [code = 07199-6] Goal Plan of Care Note [code = 71962-2] Goal Plan of Care Note [code = 76245-3] Goal Plan of Care Note [code = 11041-5] Goal Plan of Care Note [code = 67603-2] Goal Plan of Care Note [code = 66710-1] Goal Plan of Care Note [code = 70380-6] Goal Plan of Care Note [code = 30995-1] Goal Plan of Care Note [code = 07642-0] Goal Plan of Care Note [code = 85346-8] Goal Plan of Care Note [code = 34564-4] Goal Plan of Care Note [code = 61996-9] Goal Plan of Care Note [code = 96309-1] Goal Plan of Care Note [code = 84580-8] Goal Plan of Care Note [code = 58568-3] Goal Plan of Care Note [code = 87347-3] Goal Plan of Care Note [code = 76210-5] Goal Plan of Care Note [code = 49504-1] Goal Plan of Care Note [code = 87115-7] Goal Plan of Care Note [code = 30971-7] Goal Plan of Care Note [code = 09578-7] Goal Plan of Care Note [code = 57477-9] Goal Plan of Care Note [code = 12225-2] Goal Plan of Care Note [code = 78194-6] Goal Plan of Care Note [code = 90585-6] Goal Plan of Care Note [code = 21740-7] Encounters Start End Encounter Admission Attending Care Care Encounter Source Date/Time Date/Time Type Type Clinicians Facility Department ID 2021-07-15 Outpatient [facility] [id number] [place] 14:49:46 [id number] Replaced by [facility] 2021-07-13 Outpatient [facility] [id number] [place] 13:18:38 [id number] Replaced by [facility] 2022-10-07 2022-10-08 Emergency X BINA [facility] ERT [id number] Univers 22:45:00 03:24:00 MARIIA riley [facility] 2022-10-07 2022-10-08 Emergency Bina, TRAUMA 1.2.124.744 [id number] Univers 22:45:00 03:24:[address] [facility] 350.1.13.10 i ty of [facility] [phone] [address] 2022-09-24 2022-09-24 [place] [facility] 1.2.952.632 [id number] Univers 00:00:00 00:00:00 Stefania Carter SPECIALTY 350.1.13.10 ity of [facility] 4.2.7.2.686 [facility] CENTER AT [phone] Ga dical VICTORY [address] [place] [address] 2022-08-07 2022-08-07 Outpatient FOG_Goytia_ AOSM AOSM 652 5538-20 [place] 00:00:00 00:00:00 Cody 202206 Ortho pe dic [facility] 2022-07-28 2022-07-28 Emergency Annita, 1.2.840.1 [id number] Methodi 10:49:00 14:17:[address] 3.430.2.7 Hospit a .3.041998 l .8 2022-07-28 2022-07-28 Emergency Annita, 1.2.840.1 [id number] [id number] Methodi 10:49:00 14:17:[address] 3.430.2.7 Hospit a .3.599656 l .8 2022-07-28 2022-07-28 Outpatient R EKATERINA [facility] [id number] Univers 09:00:00 09:20:09 STEFANIA renee [facility] 2022-07-28 2022-07-28 Office [facility] 1.2.840.114 [id number] Univers 09:00:00 09:20:09 Visit Stefania Carter SPECIALTY 350.1.13.10 [place] [phone] Ga kush Martinez [facility] 2022-07-28 2022-07-28 Telephone [facility] 1.2.176.333 [id number] Univers 00:00:00 00:00:00 Stefania W SPECIALTY 350.1.13.10 [place] [phone] Ga kush Martinez [facility] 2022-07-28 2022-07-28 Travel 1.2.840.1 1.2.562.652 [id number] Methodi 00:00:00 00:00:[address] 3.430.2.7 0.2.7.3.698 Ho spita .3.552394 084.8 l .8 2022-07-28 2022-07-28 Travel 1.2.840.1 1.2.229.482 9512 996484 Methodi 00:00:00 00:00:[address] 3.430.2.7 0.2.7.3.698 Ho spita .3.730801 084.8 l .8 2022-07-22 2022-07-23 Emergency X JANE, [facility] ERT [id number] Univers 19:42:00 00:14:00 LISA renee [facility] 2022-07-22 2022-07-23 Emergency Cacace, TRAUMA 1.2.391.711 [id number] Univers 19:42:00 00:14:00 Lisa [facility] 350.1.13.10 [id number] [address] 2022-07-06 2022-07-06 Outpatient Issa EHRNADEZ [facility] [id number] Univers 16:10:00 16:10:00 STEFANIA ity of [facility] 2022-07-04 2022-07-04 Outpatient R [facility] [id number] Univers 15:00:00 15:00:00 ity of [facility] 2022-06-30 2022-06-30 Outpatient R [facility] [id number] Univers 09:00:00 09:00:00 ity of [facility] 2022-06-29 2022-06-29 Telephone [facility] 1.2.840.114 1 [id number] Univers 00:00:00 00:00:00 Stefania PRIMARY 350.1.13.10 it [place] [facility] [id number] [facility] [address] 2022-06-15 2022-06-15 Outpatient R [facility] [id number] Univers 13:20:23 23:59:00 ANDERSON ity [facility] 2022-06-15 2022-06-15 [facility] 1.2.840.114 [id number] Univers 13:20:23 23:59:00 Encounter Anderson TREJO 350.1.13.10 [place] [id number] [facility] [address] 2022-06-15 2022-06-15 Telephone Lydia [facility] 1.2.840.114 1 [id number] Univers 00:00:00 00:00:00 Dionisio TRANPEC 350.1.13.10 [place] of [place] [id number] [facility] AND LEMUS [address] [facility] 2022-06-15 2022-06-15 Orders Doctor ROBIN 1.2.840.114 [id number] Univers 00:00:00 00:00:00 Only Unassigned, AISHA 350.1.13.10 ity of [place] [facility] 4.2.7.2.686 Dany as [id number] [facility] [address] 2022-05-30 2022-05-30 Outpatient R [facility] [id number] Univers 15:30:00 15:30:00 ity [facility] 2022-05-04 2022-05-04 Outpatient [facility] [id number] Seth 14:40:00 14:40:00 32727 F Kristian 2022-05-03 2022-05-03 Outpatient [id number]- [id number] e3 2z8473-5 00:00:00 00:00:00 Visit 261b-4edf 61b-4edf-8 -8139-75d 139-55a711 0735244me 9190eb 2022-04-26 2022-04-26 Telephone [facility] 1.2.317.517 1723 1467 Univers 00:00:00 00:00:00 Shermeen PRIMARY 350.1.13.10 i [place] [id number] [place] dicri [address] 2022-04-25 2022-04-25 Hospice Educator Pcp-Lab [facility] 1.2.840.114 [id number] Univers 15:15:00 15:30:00 Visit Lex Ochoa PRIMARY 350.1.13.10 [place] [id number] Ga dical [address] 2022-04-25 2022-04-25 Out[facility] 1043 [id number] Univers 14:00:00 15:08:22 LEX [facility] 2022-04-25 2022-04-25 Office El Scales Team [facility] 1.2.840. 114 [id number] Univers 14:00:00 15:08:22 Visit Lex Ochoa PRIMARY 350.1.13.10 [place] [id number] Ga dical [address] 2022-03-16 2022-03-16 Outpatient [id number]- [id number] 9789u9-5 00:00:00 00:00:00 Visit 48x1-1738 2s8-8528-2 -79j9-97t 0k9-57x069 1167c08m8 2c67e7 2022-02-27 2022-02-27 Outpatient R RAMIRO [facility] [id number] Univers 08:00:00 08:00:00 DOROTEO itshelley [facility] 2022-02-06 2022-02-06 Outpatient R DAMIAN NINA [facility] 10 [id number] Univers 10:30:00 10:30:00 NINA SALGADO i ty [facility] 2022-02-01 2022-02-01 Outpatient [id number]- [id number] 7v2t37-s 00:00:00 00:00:00 Visit fce7-452a ce7-452a-9 -924a-d2a 24a-r5o243 198h5u906 h6o093 2022-01-27 2022-01-27 Outpatient [id number]- [id number] 42 57fx61-r 00:00:00 00:00:00 Visit x4p9-034n 9v3-012i-b -fb9n-n23 k0t-r71m1t q6y992r77 394e27 2022-01-10 2022-01-10 Outpatient [id number]- [id number] 1f 97132y-5 00:00:00 00:00:00 Visit 1y02-6l4o d12-3c1r-w -r97l-rho 06b-baa1f0 4f2iv46r8 fa00b2 2022-01-10 2022-01-10 Orders Doctor ROBIN 1.2.840.114 [id number] [facility] 00:00:00 00:00:00 Only Unassigned, AISHA 350.1.13.10 ity of [place] [facility] 4.2.7.2.686 Dany as [id number] [address] 2022-01-07 2022-01-07 Outpatient [id number]- [id number] f3 62ps77-9 00:00:00 00:00:00 Visit 2661-44e8 661-44e8-8 -3z85-745 w96-987b20 q56ga065d yi414d 2021-11-30 2021-11-30 Outpatient 5uq0936e- [id number] 6a v3807l-6 00:00:00 00:00:00 Visit 5599-3751 202-4562-8 -2p38-130 [id number] 2021-11-25 2021-11-25 Outpatient [id number]- [id number] 00:00:00 00:00:00 Visit 1694-4ca5 694-4ca5-9 -72o7-145 [id number] 0601-07-26 2021-11-08 Outpatient [id number]- [id number] 00:00:00 00:00:00 Visit 7wu4-67z3 ce1-48a3-b -b790-8z0 658-7a18e3 [id number] 625efb 2021-06-21 2021-06-21 [facility] [id number] Univers 11:00:00 11:00:00 ILA [facility] 2020-07-12 2020-07-12 Outpatient R LALA [facility] [id number] Univers 09:30:00 09:30:00 ATTENDING [facility] 2020-07-01 2020-07-01 [facility] 1.2.840.114 [id number] Univers 00:00:00 00:00:00 Outreach Kirk PRIMARY [id number] i [id number] [id number] [place] [address] [place] [address] 2020-07-01 2020-07-01 [facility] 1.2.840.114 [id number] 00:00:00 00:00:00 Outreach Kirk PRIMARY [id number] [place] CARE [id number] PAVILLION [id number] [facility] 2020-06-30 2020-06-30 [facility] [id number] Univers 10:40:00 10:40:00 SREEKANTH [facility] 2020-05-06 2020-05-06 [facility] [id number] Univers 11:00:00 11:00:00 JUAN CARLOS dejanshelley [facility] 2020-03-09 2020-03-09 [facility] 1.2.840.114 [id number] Univers 00:00:00 00:00:00 Ila M PRIMARY [id number] it y [id number] [id number] [facility] [address] 2020-03-09 2020-03-09 Iam StoreytonigavinPEAK BEH[facility]AL [facility] 1.2.840.114 [id number] 133 00:00:00 00:00:00 Ila M PRIMARY 350.1.13.10 CARE 4.2.7.2.686 PAVILLION [id number] 390 2020-01-27 2020-01-27 Iam StoreytonigavinPEAK BEH[facility] 1.2.840.114 [id number] Univers 00:00:00 00:00:00 Ila M PRIMARY 350.1.13.10 it [place] [id number] [facility] [address] 2020-01-27 2020-01-27 [facility] 1.2.840.114 [id number] 652 00:00:00 00:00:00 Ila M PRIMARY 350.1.13.10 CARE 4.2.7.2.686 PAVILLION [id number] 390 2019-12-28 2019-12-28 Iam ShultzPEAK [facility]IORAL [facility] 1.2.840.114 [id number] Univers 00:00:00 00:00:00 Lynda PRIMARY 350.1.13.10 it [place] [id number] [facility] [address] 2019-12-28 2019-12-28 Iam ShultzPEAK [facility] 1.2.840.114 [id number] 350 00:00:00 00:00:00 Lynda PRIMARY 350.1.13.10 CARE 4.2.7.2.686 PAVILLION [id number] 388 2019-12-25 2019-12-[address] [facility] [id number] Univers 13:30:00 13:30:00 STEFANIA shelley [facility] 2019-12-24 2019-12-24 Hectorcarlitos AlfredolaniPEAK BEHAVIORAL [facility]ALTH [facility] 1.2.840.114 [id number] Univers 00:00:00 00:00:00 Lydna PRIMARY 350.1.13.10 it [place] [id number] [address] 2019-12-24 2019-12-24 Iam ShultzPEAK [facility]IOR[facility] 1.2.840.114 [id number] 00:00:00 00:00:00 Lynda PRIMARY 350.1.13.10 CARE 4.2.7.2.686 PAVILLION [id number] [facility] 2019-12-18 2019-12-18 Outpatient Issa [facility] [id number] Univers 08:30:00 08:30:00 ILA [facility] 2019-12-12 2019-12-12 Iam ArangoPEAK [facility] 1.2.840.114 [id number] Univers 00:00:00 00:00:00 Juan Carlos J PRIMARY 350.1.13.10 it [place] [id number] [address] 2019-12-12 2019-12-12 Iam ArangoPE[facility] 1.2.840.114 [id number] 078 00:00:00 00:00:00 Juan Carlos J PRIMARY 350.1.13.10 CARE 4.2.7.2.686 PAVILLION [phone] [facility] 2019-12-10 2019-12-10 Outpatient Issa [facility] [id number] Univers 11:00:00 11:00:00 ILA [facility] 2019-12-09 2019-12-09 Iam [facility]PE[facility] 1.2.840.114 [id number] Univers 00:00:00 00:00:00 Juan Carlos J PRIMARY 350.1.13.10 it [place] [id number] [address] 2019-12-09 2019-12-09 [facility]ielPE[facility] 1.2.840.114 [id number] [facility] 00:00:00 00:00:00 [place] M PRIMARY 350.1.13.10 it y of CARE [place].2.7.[place] [phone] Ga kush [address] 2019-12-09 2019-12-09 Refill [facility]angoPE[facility] 1.2.840.114 [id number] 474 00:00:00 00:00:00 Juan Carlos J PRIMARY 350.1.13.10 CARE 4.2.7.2.686 PAVILLION [id number] [facility] 2019-12-09 2019-12-09 [facility] Y[facility]ielPE[facility] 1.2.840.114 [id number] 00:00:00 00:00:00 [place] M PRIMARY 350.1.13.10 CARE 4.2.7.2.686 PAVILLION [id number] [facility] 2019-12-04 2019-12-04 Telephone [facility] 1.2.840.114 [id number] [facility] 00:00:00 00:00:00 Lynda PRIMARY 350.1.13.10 it y of C[place]2.[place] [id number] [facility] [address] 2019-12-04 2019-12-04 [facility] 1.2.840.114 [id number] 00:00:00 00:00:00 Lynda PRIMARY 350.1.13.10 CARE 4.2.7.2.686 PAVILLION [id number] [facility] 2019-12-02 2019-12-02 Office [facility]PE[facility] 1.2.840.114 [id number] 213 [facility] 09:06:15 10:45:17 Visit Juan Carlos J PRIMARY 350.1.13.10 it y of C[place]2.7[place] [id number] [address] 2019-12-02 2019-12-02 Office [facility]PE[facility] 1.2.840.114 [id number] 213 09:06:15 10:45:17 Visit Juan Carlos J PRIMARY 350.1.13.10 CARE 4.2.7.2.686 PAVILLION [phone] [facility] 2019-12-02 2019-12-02 Outpatient R DOROTHEA [facility] [id number] Univers 09:30:00 09:30:00 JUAN CARLOS [facility] 2019-12-02 2019-12-02 Telephone DorotheaPE[facility] 1.2.840.114 [id number] Univers 00:00:00 00:00:00 Juan Carlos J PRIMARY 350.1.13.10 it y of C[place].2.[place] [id number] [address] 2019-12-01 2019-12-01 Outpatient R YARIEL [facility] [id number] Univers 10:00:00 10:00:00 ILA [facility] 2019-10-15 2019-10-15 Outpatient R LALA, [facility] [id number] Univers 13:30:00 13:30:00 ATTENDING [facility] 2019-10-09 2019-10-09 Refcarlitos ShultzPEAK [facility] 1.2.840.114 [id number] Univers 00:00:00 00:00:00 Lynda PRIMARY 350.1.13.10 it y of C[place].2.7.2.[place] [id number] [address] 2019-10-08 2019-10-08 Telephone CarringtonPEAK BE[facility]IOR[facility] 1.2.840.114 [id number] Univers 00:00:00 00:00:00 Lynda PRIMARY 350.1.13.10 it y of CARE 4.2.7.2.[place] [id number] [address] 2019-10-06 2019-10-06 Iam SaldivarPEAK BEH[facility]IORAL [facility] 1.2.840.114 [id number] Univers 00:00:00 00:00:00 Ila M PRIMARY 350.1.13.10 it y of C[place].2.7.2.[place] [id number] [facility] [address] 2019-09-30 2019-09-30 Telemedici YarielPE[facility] 1.2.840.114 [id number] Univers 09:56:40 10:26:40 ne Visit Ila Pelletier PRIMARY 350.1.13.10 i ty of CARE 4.2.7.2.[place] [id number] [facility] [address] 2019-09-30 2019-09-30 Outpatient Issa STOREYTONIGavinMER[facility] [id number] Univers 09:30:00 09:30:00 ILA [facility] 2019-09-22 2019-09-22 [facility] ShultzPE[facility] 1.2.840.114 [id number] Univers 00:00:00 00:00:00 Lynda PRIMARY 350.1.13.10 it y of C[place].2.7.2.[place] [id number] [facility] [address] 2019-09-02 2019-09-04 [facility] 1.2.840.114 [id number] Univers 07:24:21 09:05:02 ne Visit Lynda PRIMARY 350.1.13.10 i ty of CARE 4.2.7.2.[place] [id number] [address] 2019-09-04 2019-09-04 [facility] ShultzPE[facility] 1.2.840.114 [id number] Univers 00:00:00 00:00:00 Lynda PRIMARY 350.1.13.10 it y of C[place] 4.2.7.2.[place] [id number] [address] 2019-09-02 2019-09-02 Outpatient Iss[address] [facility] [id number] Univers 11:00:00 11:00:00 [facility]-01 2019-09-01 Hospice Educator [facility] 1.2.840.114 [id number] Univers 08:58:21 09:13:21 Visit Juan Carlos Arango HEALTH 350.1.13.10 ity of CLINICS [place].2.7.2.[place] [id number] [address] 2019-09-01 2019-09-01 Outpatient R DOROTHEA [facility] [id number] Univers 09:00:00 09:00:00 JUAN CARLOS renee [facility] 2019-08-24 2019-08-24 Refcarlitos ShultzPE[facility] 1.2.840.114 [id number] Univers 00:00:00 00:00:00 Lynda PRIMARY 350.1.13.10 it y of C[place].2.7.2.[place] [id number] [address] 2019-08-08 2019-08-08 Outpatient Issa [facility]AM[facility] [id number] Univers 14:20:00 14:20:00 JV renee [facility] 2019-08-07 2019-08-07 Telephone [facility] 1.2.840.114 [id number] [facility] 00:00:00 00:00:00 Lynda PRIMARY 350.1.13.10 it y of C[place].2.7.2.[place] [id number] [address] 2019-08-07 2019-08-07 [place] AddisonPEAK [facility] 1.2.538.098 [id number] Univers 00:00:00 00:00:00 Deepam PRIMARY 350.1.13.10 it y of CARE [place].2.7.2.[place] [id number] [address] 2019-08-06 2019-08-06 [facility] ShultzPE[facility] 1.2.840.114 [id number] Univers 00:00:00 00:00:00 Lynda PRIMARY 350.1.13.10 it y of CARE 4.2.7.2.[place] [id number] [address] 2019-08-05 2019-08-05 Telephone AddisonPEAK [facility] 1.2.972.493 [id number] Univers 00:00:00 00:00:00 Deepam PRIMARY 350.1.13.10 it y of CARE 4.2.7.2.[place] [id number] [address] 2019-08-01 2019-08-01 Outpatient Issa ZAMORA [facility] [id number] Univers 15:10:00 15:10:00 PAULINA ity of [facility] 2019-08-01 2019-08-01 Telemedici Mick Jaime [facility] 1.2.840. 114 [id number] Univers 13:53:58 14:23:58 ne Visit Paulina Zamora K PRIMARY 350.1.13. 10 ity of CARE 4.2.7.2.[place] [id number] [address] 2019-08-01 2019-08-01 [facility] ShultzPE[facility] 1.2.840.114 [id number] Univers 00:00:00 00:00:00 Lynda PRIMARY 350.1.13.10 it y of C[place].2.7.2.[place] [id number] [address] 2019-08-01 2019-08-01 Telephone CarringtonPEAK [facility] 1.2.840.114 [id number] Univers 00:00:00 00:00:00 Lynda PRIMARY 350.1.13.10 it y of CARE 4.2.7.2.[place] [id number] [address] 2019-07-28 2019-07-28 [facility] CarringtonPE[facility] 1.2.840.114 [id number] Univers 00:00:00 00:00:00 Lynda PRIMARY 350.1.13.10 it y of CARE 4.2.7.2.[place] [id number] [address] 2019-07-21 2019-07-21 [facility] 1.2.840.114 [id number] Univers 00:00:00 00:00:00 Lynda PRIMARY 350.1.13.10 it y of CARE 4.2.7.2.[place] [id number] [address] 2019-07-18 2019-07-18 [facility] 1.2.840.114 [id number] Univers 00:00:00 00:00:00 Lynda PRIMARY 350.1.13.10 it y of CARE 4.2.7.2.[place] [id number] [address] 2019-07-17 2019-07-17 [facility] 1.2.840.114 [id number] Univers 00:00:00 00:00:00 Lynda PRIMARY 350.1.13.10 it y of CARE 4.2.7.2.[place] [id number] [address] 2019-07-16 2019-07-16 [facility]ringtonPE[facility] 1.2.840.114 [id number] Univers 00:00:00 00:00:00 Lynda PRIMARY 350.1.13.10 it y of CARE 4.2.7.2.[place] [id number] [address] 2019-07-14 2019-07-14 Telephone [facility]PE[facility] 1.2.840.114 [id number] Univers 00:00:00 00:00:00 Lynda PRIMARY 350.1.13.10 it y of CARE 4.2.7.2.[place] [id number] [address] 2019-07-14 2019-07-14 [facility] 1.2.840.114 [id number] Univers 00:00:00 00:00:00 Lynda PRIMARY 350.1.13.10 it y of CARE [place].2.7.2.[place] [id number] [address] 2019-07-08 2019-07-08 Telemedici [facility]ringtonPE[facility] 1.2.840.114 [id number] Univers 08:06:45 08:36:45 ne Visit Lynda PRIMARY 350.1.13.10 i ty of CARE 4.2.7.2.[place] [id number] [address] 2019-07-08 2019-07-08 Outpatient R [facility] [id number] Univers 08:30:00 08:30:00 LYNDA ity of [facility] 2019-07-06 2019-07-06 Nurse ROBIN Vogel 1.2.840.114 [id number] Univers 00:00:00 00:00:00 Triage Mariangel LEONARD 350.1.13.10 i ty of HOSPITAL 4.2.7.2.686 Dany as [id number] [facility] [address] 2019-07-06 2019-07-06 Telephone [facility] 1.2.840.114 [id number] Univers 00:00:00 00:00:00 Lynda PRIMARY 350.1.13.10 it y of CARE [place].2.7.2.[place] [id number] [facility] [address] 2019-06-24 2019-06-24 Refill [facility] 1.2.840.114 [id number] Univers 00:00:00 00:00:00 Lynda PRIMARY 350.1.13.10 it y of CARE [place].2.7.2.[place] [id number] [facility] [address] 2019-05-13 2019-05-13 Telephone [facility] 1.2.840.114 [id number] Univers 00:00:00 00:00:00 Lynda PRIMARY 350.1.13.10 it y of CARE [place].2.7.2.[place] [id number] [facility] [address] 2019-05-13 2019-05-13 Telephone Em[facility]PE[facility] 1.2.604.805 [id number] Univers 00:00:00 00:00:00 Christopher PRIMARY 350.1.13.10 ity of CARE [place].2.7.2.[place] [id number] [facility] [address] 2019-04-04 2019-04-04 Outpatient Issa DEAN [facility] [id number] Univers 14:50:00 15:10:33 BRADEN ity of [facility] 2018-12-30 2018-12-30 Telephone [facility]PE[facility] 1.2.663.399 [id number] Univers 00:00:00 00:00:00 Jasson-Monika PRIMARY 350.1.13.10 ity of Th[place] C[place].2.7.2.[place] [id number] [facility] [address] 2018-11-25 2018-11-25 [facility] Arturo Rowley 1.2.840.114 [id number] Univers 06:56:56 23:59:00 Encounter Aparna Mathur [facility] [place] 350.1.13.10 ity of Unit 4.2.7.2.[address] [id number] [facility] [address] 2017-09-05 2017-10-23 Outpatient [facility] [id number] [place] 00:00:00 00:00:00 [facility] 2017-10-18 2017-10-18 Outpatient [facility] [id number] [place] 21:09:01 21:09:01 [facility] 2016-04-27 2016-09-27 [facility] [id number] [place] 00:00:00 00:00:00 [facility] Results Test Description Test Time Test Comments Results Result Comments Source POCT TEST 2022-10-08 04:45:00 Test Item Value Reference Range Interpretation Comme nts POCT PREG (test code = 1605) Negative On board controls acceptable with C Line (test code = 3574) Yes POCT PREG LOT # (test code = 3575) [id number] POCT PREG TEST DATE (test code = 3576) [facility]2022-[facility]-23 02:32:10 Test Item Value Reference Range Interpretation Comments NA (test code = 139 mmol/L 135-145 2096276989) K (test code = 3.4 mmol/L 3.5-5.0 L 1860720732) CL (test code = 103 mmol/L 98-108 6209584221) CO2 TOTAL (test code = 28 mmol/L 23-31 1671895567) AGAP (test code = 8 2-16 7497030691) BUN (test code = 9 mg/dL 7-23 5389049245) GLUCOSE (test code = 77 mg/dL 70-110 0502733296) CREATININE (test code = 0.82 mg/dL 0.50-1.04 8670997619) TOTAL BILI (test code = 0.4 mg/dL 0.1-1.2 8286976117) CALCIUM (test code = 9.0 mg/dL 8.6-10.6 4883267492) T PROTEIN (test code = 7.3 g/dL 6.3-8.2 2337143820) ALBUMIN (test code = 4.3 g/dL 3.5-5.0 0369888596) ALK PHOS (test code = 98 U/L 34-122 0987281886) ALTv (test code = 20 U/L 5-35 2-6) AST(SGOT) (test code = 23 U/L 13-40 5550717189) eGFR (test code = 75.4 mL/min/1.73m2 4550991810) JAQUELIN (test code = JAQUELIN) Association of Glomerular Filtration Rate (GFR) and Staging of Kidney Disease* + --+ --+ ------+| GFR (mL/min/1.73 m2) ?| With Kidney Damage ?| ?Without Kidney Damage+ --------+ --------+ +| ?>90 ?| ?Stage one ?| ? Normal ?+ ---+ ---+ -------+| ?60-89 ?| ?Stage two ?| ? Decreased GFR ? + --+ --+ ------+| ?30-59 ?| ?Stage three ?| ? Stage three ? + --+ --+ ------+| ?15-29 ?| ?Stage four ? | ? Stage four ?+ ---+ ---+ -------+| ?<15 (or dialysis) ? ?| ?Stage five ? | ? Stage five ?+ ---+ ---+ -------+ *Each stage assumes the associated GFR [...] or abnormalities in imaging tests). Lab Interpretation Abnormal (test code = 16400-1) [facility] WITH [id number] 02:21:48 Test Item Value Reference Range Interpretation Comments WBC (test code = 10.63 See_Comment [Automated 5890-2) message] The sy stem which generated this [...] RDW-SD (test code = 47.6 fL 39.0-49.9 15719-9) RDW-CV (test code = 15.1 % 12.0-15.5 788-0) PLT (test code = 341 See_Comment [Automated 777-3) message] The sy stem which generated this result transmitted reference range : 166 - 358 10*3/ ?L. The reference r shahana was not used to interpret this result as normal/abnormal . MPV (test code = 9.8 fL 9.5-12.9 77332-3) NRBC/100 WBC (test 0.0 See_Comment [Automat ed code = 8526567076) message] The system which generated this result transmitted reference range : 0.0 - 10.0 /100 WBCs. The refer ence range was not u sed to interpret th is result as normal/abnormal . NRBC x10^3 (test code See_Comment [Auto mated = 8519273887) message] The s ystem which generated this result transmitted reference range : 10*3/?L. The reference range was not used to interpret this result as normal/abnormal . GRAN MAT (NEUT) % 67.0 % (test code = 770-8) IMM GRAN % (test code 0.30 % = 1193071148) LYMPH % (test code = 24.5 % 736-9) MONO % (test code = 6.9 % 5905-5) EOS % (test code = 0.7 % 713-8) BASO % (test code = 0.6 % 706-2) GRAN MAT x10^3(ANC) 7.14 10*3/uL 1.88-7.09 H (test code = 5413371634) IMM GRAN x10^3 (test 0.03 10*3/uL 0.00-0.06 code = 8018054794) LYMPH x10^3 (test code 2.60 10*3/uL 1.32-3.29 = 731-0) MONO x10^3 (test code 0.73 10*3/uL 0.33-0.92 = 742-7) EOS x10^3 (test code = 0.07 10*3/uL 0.03-0.39 711-2) BASO x10^3 (test code 0.06 10*3/uL 0.01-0.07 = 704-7) Lab Interpretation Abnormal (test code = 70004-5) [facility] [id number] 00:00:00 Test Item Value Reference Range Interpretation Comments GLUCOSE (test code = 2217) 93 MG/DL BUN (test code = 2208) 10 MG/DL CREATININE (test code = 2214) 0.81 MG/DL eGFR AMER. (test code 103 ML/MIN/1.73 = 49968) eGFR NON- AMER. (test 89 ML/MIN/1.73 code = 29269) CALC BUN/CREAT (test code = 12 RATIO [...] code = 2219) 22 U/L COMPREHENSIVE METABOLIC [id number] 00:00:00 Test Item Value Reference Range Interpretation Comments GLUCOSE (test code = 2217) 93 MG/DL BUN (test code = 2208) 10 MG/DL CREATININE (test code = 2214) 0.81 MG/DL eGFR AMER. (test code 103 ML/MIN/1.73 = 13656) eGFR NON- AMER. (test 89 ML/MIN/1.73 code = 28445) CALC BUN/CREAT (test code = 12 RATIO [...] code = 2219) 22 U/L CBC W/AUTO [id number] 00:00:00 Test Item Value Reference Range Interpretation [...] NUCLEATED RBCS (test code = 0.00 K/UL 06351) CBC W/AUTO [id number] 00:00:00 Test Item Value Reference Range Interpretation [...] NUCLEATED RBCS (test code = 0.00 K/UL 69111) CBC W/AUTO [id number] 00:00:00 Test Item Value Reference Range Interpretation [...] NUCLEATED RBCS (test code = 0.00 K/UL 94563) LIPID [id number] 00:00:00 Test Item Value Reference Range Interpretation Comments CHOLESTEROL (test code = 2210) 328 MG/DL TRIGLYCERIDES (test code = 2232) 614 MG/DL HDL CHOLESTEROL (test code = 42 MG/DL 2220) CALC LDL CHOL (test code = 2237) (NOTE) MG/DL RISK RATIO LDL/HDL (test code = (NOTE) RATIO 2238) LIPID [id number] 00:00:00 Test Item Value Reference Range Interpretation Comments CHOLESTEROL (test code = 2210) 328 MG/DL TRIGLYCERIDES (test code = 2232) 614 MG/DL HDL CHOLESTEROL (test code = 42 MG/DL 2220) CALC LDL CHOL (test code = 2237) (NOTE) MG/DL RISK RATIO LDL/HDL (test code = (NOTE) RATIO 2238) [id number] 00:00:00 Test Item Value Reference Range Interpretation Comments TSH, THIRD GENERATION (test code 4.310 UIU/ML = 2821) [id number] 00:00:00 Test Item Value Reference Range Interpretation Comments TSH, THIRD GENERATION (test code 4.310 UIU/ML = 2821) [id number] 00:00:00 Test Item Value Reference Range Interpretation Comments TSH, THIRD GENERATION (test code 4.310 UIU/ML = 2821) HEMOGLOBIN [id number] 00:00:00 Test Item Value Reference Range Interpretation Comments HEMOGLOBIN A1c (test code = 20096) 5.4 % HEMOGLOBIN [id number] 00:00:00 Test Item Value Reference Range Interpretation Comments HEMOGLOBIN A1c (test code = 28580) 5.4 % HEMOGLOBIN [id number] 00:00:00 Test Item Value Reference Range Interpretation Comments HEMOGLOBIN A1c (test code = 91995) 5.4 % [id number] 00:00:00 Test Item Value Reference Range Interpretation Comments LITHIUM (test code = 2039) 0.63 MEQ/L [id number] 00:00:00 Test Item Value Reference Range Interpretation Comments LITHIUM (test code = 2039) 0.63 MEQ/L [id number] 00:00:00 Test Item Value Reference Range Interpretation Comments LITHIUM (test code = 2039) 0.63 MEQ/L COMPREHENSIVE METABOLIC [id number] 00:00:00 Test Item Value Reference Range Interpretation Comments GLUCOSE (test code = 2217) 93 MG/DL BUN (test code = 2208) 10 MG/DL CREATININE (test code = 2214) 0.81 MG/DL eGFR AMER. (test code 103 ML/MIN/1.73 = 14108) eGFR NON- AMER. (test 89 ML/MIN/1.73 code = 56582) CALC BUN/CREAT (test code = 12 RATIO [...] code = 2219) 22 U/L COMPREHENSIVE METABOLIC [id number] 00:00:00 Test Item Value Reference Range Interpretation Comments GLUCOSE (test code = 2217) 93 MG/DL BUN (test code = 2208) 10 MG/DL CREATININE (test code = 2214) 0.81 MG/DL eGFR AMER. (test code 103 ML/MIN/1.73 = 98816) eGFR NON- AMER. (test 89 ML/MIN/1.73 code = 27784) CALC BUN/CREAT (test code = 12 RATIO [...] code = 2219) 22 U/L CBC W/AUTO [id number] 00:00:00 Test Item Value Reference Range Interpretation [...] NUCLEATED RBCS (test code = 0.00 K/UL 75205) CBC W/AUTO [id number] 00:00:00 Test Item Value Reference Range Interpretation [...] NUCLEATED RBCS (test code = 0.00 K/UL 54844) CBC W/AUTO [id number] 00:00:00 Test Item Value Reference Range Interpretation [...] NUCLEATED RBCS (test code = 0.00 K/UL 65445) LIPID [id number] 00:00:00 Test Item Value Reference Range Interpretation Comments CHOLESTEROL (test code = 2210) 328 MG/DL TRIGLYCERIDES (test code = 2232) 614 MG/DL HDL CHOLESTEROL (test code = 42 MG/DL 2220) CALC LDL CHOL (test code = 2237) (NOTE) MG/DL RISK RATIO LDL/HDL (test code = (NOTE) RATIO 2238) LIPID [id number] 00:00:00 Test Item Value Reference Range Interpretation Comments CHOLESTEROL (test code = 2210) 328 MG/DL TRIGLYCERIDES (test code = 2232) 614 MG/DL HDL CHOLESTEROL (test code = 42 MG/DL 2220) CALC LDL CHOL (test code = 2237) (NOTE) MG/DL RISK RATIO LDL/HDL (test code = (NOTE) RATIO 2238) [id number] 00:00:00 Test Item Value Reference Range Interpretation Comments TSH, THIRD GENERATION (test code 4.310 UIU/ML = 2821) [id number] 00:00:00 Test Item Value Reference Range Interpretation Comments TSH, THIRD GENERATION (test code 4.310 UIU/ML = 2821) [id number] 00:00:00 Test Item Value Reference Range Interpretation Comments TSH, THIRD GENERATION (test code 4.310 UIU/ML = 2821) HEMOGLOBIN [id number] 00:00:00 Test Item Value Reference Range Interpretation Comments HEMOGLOBIN A1c (test code = 20647) 5.4 % HEMOGLOBIN [id number] 00:00:00 Test Item Value Reference Range Interpretation Comments HEMOGLOBIN A1c (test code = 57002) 5.4 % HEMOGLOBIN [id number] 00:00:00 Test Item Value Reference Range Interpretation Comments HEMOGLOBIN A1c (test code = 39804) 5.4 % [id number] 00:00:00 Test Item Value Reference Range Interpretation Comments LITHIUM (test code = 2039) 0.63 MEQ/L [id number] 00:00:00 Test Item Value Reference Range Interpretation Comments LITHIUM (test code = 2039) 0.63 MEQ/L [id number] 00:00:00 Test Item Value Reference Range Interpretation Comments LITHIUM (test code = 2039) 0.63 MEQ/L COMPREHENSIVE METABOLIC [id number] 00:00:00 Test Item Value Reference Range Interpretation Comments GLUCOSE (test code = 2217) 93 MG/DL BUN (test code = 2208) 10 MG/DL CREATININE (test code = 2214) 0.81 MG/DL eGFR AMER. (test code 103 ML/MIN/1.73 = 24622) eGFR NON- AMER. (test 89 ML/MIN/1.73 code = 78262) CALC BUN/CREAT (test code = 12 RATIO [...] code = 2219) 22 U/L CBC W/AUTO [id number] 00:00:00 Test Item Value Reference Range Interpretation [...] NUCLEATED RBCS (test code = 0.00 K/UL 35321) CBC W/AUTO [id number] 00:00:00 Test Item Value Reference Range Interpretation [...] NUCLEATED RBCS (test code = 0.00 K/UL 19320) LIPID [id number] 00:00:00 Test Item Value Reference Range Interpretation Comments CHOLESTEROL (test code = 2210) 328 MG/DL TRIGLYCERIDES (test code = 2232) 614 MG/DL HDL CHOLESTEROL (test code = 42 MG/DL 2220) CALC LDL CHOL (test code = 2237) (NOTE) MG/DL RISK RATIO LDL/HDL (test code = (NOTE) RATIO 2238) [id number] 00:00:00 Test Item Value Reference Range Interpretation Comments TSH, THIRD GENERATION (test code 4.310 UIU/ML = 2821) [id number] 00:00:00 Test Item Value Reference Range Interpretation Comments TSH, THIRD GENERATION (test code 4.310 UIU/ML = 2821) HEMOGLOBIN [id number] 00:00:00 Test Item Value Reference Range Interpretation Comments HEMOGLOBIN A1c (test code = 57167) 5.4 % HEMOGLOBIN [id number] 00:00:00 Test Item Value Reference Range Interpretation Comments HEMOGLOBIN A1c (test code = 39932) 5.4 % [id number] 00:00:00 Test Item Value Reference Range Interpretation Comments LITHIUM (test code = 2039) 0.63 MEQ/L [id number] 00:00:00 Test Item Value Reference Range Interpretation Comments LITHIUM (test code = 2039) 0.63 MEQ/L COMPREHENSIVE METABOLIC [id number] 00:00:00 Test Item Value Reference Range Interpretation Comments GLUCOSE (test code = 2217) 93 MG/DL BUN (test code = 2208) 10 MG/DL CREATININE (test code = 2214) 0.81 MG/DL eGFR AMER. (test code 103 ML/MIN/1.73 = 69739) eGFR NON- AMER. (test 89 ML/MIN/1.73 code = 78253) CALC BUN/CREAT (test code = 12 RATIO [...] code = 2219) 22 U/L COMPREHENSIVE METABOLIC [id number] 00:00:00 Test Item Value Reference Range Interpretation Comments GLUCOSE (test code = 2217) 93 MG/DL BUN (test code = 2208) 10 MG/DL CREATININE (test code = 2214) 0.81 MG/DL eGFR AMER. (test code 103 ML/MIN/1.73 = 24657) eGFR NON- AMER. (test 89 ML/MIN/1.73 code = 12487) CALC BUN/CREAT (test code = 12 RATIO [...] code = 2219) 22 U/L CBC W/AUTO [id number] 00:00:00 Test Item Value Reference Range Interpretation [...] NUCLEATED RBCS (test code = 0.00 K/UL 38575) CBC W/AUTO [id number] 00:00:00 Test Item Value Reference Range Interpretation [...] NUCLEATED RBCS (test code = 0.00 K/UL 21817) CBC W/AUTO [id number] 00:00:00 Test Item Value Reference Range Interpretation [...] NUCLEATED RBCS (test code = 0.00 K/UL 82846) LIPID [id number] 00:00:00 Test Item Value Reference Range Interpretation Comments CHOLESTEROL (test code = 2210) 328 MG/DL TRIGLYCERIDES (test code = 2232) 614 MG/DL HDL CHOLESTEROL (test code = 42 MG/DL 2220) CALC LDL CHOL (test code = 2237) (NOTE) MG/DL RISK RATIO LDL/HDL (test code = (NOTE) RATIO 2238) LIPID [id number] 00:00:00 Test Item Value Reference Range Interpretation Comments CHOLESTEROL (test code = 2210) 328 MG/DL TRIGLYCERIDES (test code = 2232) 614 MG/DL HDL CHOLESTEROL (test code = 42 MG/DL 2220) CALC LDL CHOL (test code = 2237) (NOTE) MG/DL RISK RATIO LDL/HDL (test code = (NOTE) RATIO 2238) [id number] 00:00:00 Test Item Value Reference Range Interpretation Comments TSH, THIRD GENERATION (test code 4.310 UIU/ML = 2821) [id number] 00:00:00 Test Item Value Reference Range Interpretation Comments TSH, THIRD GENERATION (test code 4.310 UIU/ML = 2821) [id number] 00:00:00 Test Item Value Reference Range Interpretation Comments TSH, THIRD GENERATION (test code 4.310 UIU/ML = 2821) HEMOGLOBIN [id number] 00:00:00 Test Item Value Reference Range Interpretation Comments HEMOGLOBIN A1c (test code = 85552) 5.4 % HEMOGLOBIN [id number] 00:00:00 Test Item Value Reference Range Interpretation Comments HEMOGLOBIN A1c (test code = 77520) 5.4 % HEMOGLOBIN [id number] 00:00:00 Test Item Value Reference Range Interpretation Comments HEMOGLOBIN A1c (test code = 76883) 5.4 % [id number] 00:00:00 Test Item Value Reference Range Interpretation Comments LITHIUM (test code = 2039) 0.63 MEQ/L [id number] 00:00:00 Test Item Value Reference Range Interpretation Comments LITHIUM (test code = 2039) 0.63 MEQ/L [id number] 00:00:00 Test Item Value Reference Range Interpretation Comments LITHIUM (test code = 2039) 0.63 MEQ/L COMPREHENSIVE METABOLIC [id number] 00:00:00 Test Item Value Reference Range Interpretation Comments GLUCOSE (test code = 2217) 93 MG/DL BUN (test code = 2208) 10 MG/DL CREATININE (test code = 2214) 0.81 MG/DL eGFR AMER. (test code 103 ML/MIN/1.73 = 84986) eGFR NON- AMER. (test 89 ML/MIN/1.73 code = 82429) CALC BUN/CREAT (test code = 12 RATIO [...] code = 2219) 22 U/L COMPREHENSIVE METABOLIC [id number] 00:00:00 Test Item Value Reference Range Interpretation Comments GLUCOSE (test code = 2217) 93 MG/DL BUN (test code = 2208) 10 MG/DL CREATININE (test code = 2214) 0.81 MG/DL eGFR AMER. (test code 103 ML/MIN/1.73 = 25712) eGFR NON- AMER. (test 89 ML/MIN/1.73 code = 42704) CALC BUN/CREAT (test code = 12 RATIO [...] code = 2219) 22 U/L CBC W/AUTO [id number] 00:00:00 Test Item Value Reference Range Interpretation [...] NUCLEATED RBCS (test code = 0.00 K/UL 95640) CBC W/AUTO [id number] 00:00:00 Test Item Value Reference Range Interpretation [...] NUCLEATED RBCS (test code = 0.00 K/UL 36382) CBC W/AUTO [id number] 00:00:00 Test Item Value Reference Range Interpretation [...] NUCLEATED RBCS (test code = 0.00 K/UL 58268) LIPID [id number] 00:00:00 Test Item Value Reference Range Interpretation Comments CHOLESTEROL (test code = 2210) 328 MG/DL TRIGLYCERIDES (test code = 2232) 614 MG/DL HDL CHOLESTEROL (test code = 42 MG/DL 2220) CALC LDL CHOL (test code = 2237) (NOTE) MG/DL RISK RATIO LDL/HDL (test code = (NOTE) RATIO 2238) LIPID [id number] 00:00:00 Test Item Value Reference Range Interpretation Comments CHOLESTEROL (test code = 2210) 328 MG/DL TRIGLYCERIDES (test code = 2232) 614 MG/DL HDL CHOLESTEROL (test code = 42 MG/DL 2220) CALC LDL CHOL (test code = 2237) (NOTE) MG/DL RISK RATIO LDL/HDL (test code = (NOTE) RATIO 2238) [id number] 00:00:00 Test Item Value Reference Range Interpretation Comments TSH, THIRD GENERATION (test code 4.310 UIU/ML = 2821) [id number] 00:00:00 Test Item Value Reference Range Interpretation Comments TSH, THIRD GENERATION (test code 4.310 UIU/ML = 2821) [id number] 00:00:00 Test Item Value Reference Range Interpretation Comments TSH, THIRD GENERATION (test code 4.310 UIU/ML = 2821) HEMOGLOBIN [id number] 00:00:00 Test Item Value Reference Range Interpretation Comments HEMOGLOBIN A1c (test code = 95679) 5.4 % HEMOGLOBIN [id number] 00:00:00 Test Item Value Reference Range Interpretation Comments HEMOGLOBIN A1c (test code = 84105) 5.4 % HEMOGLOBIN [id number] 00:00:00 Test Item Value Reference Range Interpretation Comments HEMOGLOBIN A1c (test code = 09043) 5.4 % [id number] 00:00:00 Test Item Value Reference Range Interpretation Comments LITHIUM (test code = 2039) 0.63 MEQ/L [id number] 00:00:00 Test Item Value Reference Range Interpretation Comments LITHIUM (test code = 2039) 0.63 MEQ/L [id number] 00:00:00 Test Item Value Reference Range Interpretation Comments LITHIUM (test code = 2039) 0.63 MEQ/L COMPREHENSIVE METABOLIC [id number] 00:00:00 Test Item Value Reference Range Interpretation Comments GLUCOSE (test code = 2217) 93 MG/DL BUN (test code = 2208) 10 MG/DL CREATININE (test code = 2214) 0.81 MG/DL eGFR AMER. (test code 103 ML/MIN/1.73 = 24242) eGFR NON- AMER. (test 89 ML/MIN/1.73 code = 84500) CALC BUN/CREAT (test code = 12 RATIO [...] code = 2219) 22 U/L COMPREHENSIVE METABOLIC [id number] 00:00:00 Test Item Value Reference Range Interpretation Comments GLUCOSE (test code = 2217) 93 MG/DL BUN (test code = 2208) 10 MG/DL CREATININE (test code = 2214) 0.81 MG/DL eGFR AMER. (test code 103 ML/MIN/1.73 = 69669) eGFR NON- AMER. (test 89 ML/MIN/1.73 code = 07961) CALC BUN/CREAT (test code = 12 RATIO [...] code = 2219) 22 U/L CBC W/AUTO [id number] 00:00:00 Test Item Value Reference Range Interpretation [...] NUCLEATED RBCS (test code = 0.00 K/UL 85877) CBC W/AUTO [id number] 00:00:00 Test Item Value Reference Range Interpretation [...] NUCLEATED RBCS (test code = 0.00 K/UL 66535) CBC W/AUTO [id number] 00:00:00 Test Item Value Reference Range Interpretation [...] NUCLEATED RBCS (test code = 0.00 K/UL 26045) LIPID [id number] 00:00:00 Test Item Value Reference Range Interpretation Comments CHOLESTEROL (test code = 2210) 328 MG/DL TRIGLYCERIDES (test code = 2232) 614 MG/DL HDL CHOLESTEROL (test code = 42 MG/DL 2220) CALC LDL CHOL (test code = 2237) (NOTE) MG/DL RISK RATIO LDL/HDL (test code = (NOTE) RATIO 2238) LIPID [id number] 00:00:00 Test Item Value Reference Range Interpretation Comments CHOLESTEROL (test code = 2210) 328 MG/DL TRIGLYCERIDES (test code = 2232) 614 MG/DL HDL CHOLESTEROL (test code = 42 MG/DL 2220) CALC LDL CHOL (test code = 2237) (NOTE) MG/DL RISK RATIO LDL/HDL (test code = (NOTE) RATIO 2238) [id number] 00:00:00 Test Item Value Reference Range Interpretation Comments TSH, THIRD GENERATION (test code 4.310 UIU/ML = 2821) [id number] 00:00:00 Test Item Value Reference Range Interpretation Comments TSH, THIRD GENERATION (test code 4.310 UIU/ML = 2821) [id number] 00:00:00 Test Item Value Reference Range Interpretation Comments TSH, THIRD GENERATION (test code 4.310 UIU/ML = 2821) HEMOGLOBIN [id number] 00:00:00 Test Item Value Reference Range Interpretation Comments HEMOGLOBIN A1c (test code = 05646) 5.4 % HEMOGLOBIN [id number] 00:00:00 Test Item Value Reference Range Interpretation Comments HEMOGLOBIN A1c (test code = 34334) 5.4 % HEMOGLOBIN [id number] 00:00:00 Test Item Value Reference Range Interpretation Comments HEMOGLOBIN A1c (test code = 60042) 5.4 % [id number] 00:00:00 Test Item Value Reference Range Interpretation Comments LITHIUM (test code = 2039) 0.63 MEQ/L [id number] 00:00:00 Test Item Value Reference Range Interpretation Comments LITHIUM (test code = 2039) 0.63 MEQ/L [id number] 00:00:00 Test Item Value Reference Range Interpretation Comments LITHIUM (test code = 2039) 0.63 MEQ/L COMPREHENSIVE METABOLIC [id number] 00:00:00 Test Item Value Reference Range Interpretation Comments GLUCOSE (test code = 2217) 93 MG/DL BUN (test code = 2208) 10 MG/DL CREATININE (test code = 2214) 0.81 MG/DL eGFR AMER. (test code 103 ML/MIN/1.73 = 00229) eGFR NON- AMER. (test 89 ML/MIN/1.73 code = 66080) CALC BUN/CREAT (test code = 12 RATIO [...] code = 2219) 22 U/L COMPREHENSIVE METABOLIC [id number] 00:00:00 Test Item Value Reference Range Interpretation Comments GLUCOSE (test code = 2217) 93 MG/DL BUN (test code = 2208) 10 MG/DL CREATININE (test code = 2214) 0.81 MG/DL eGFR AMER. (test code 103 ML/MIN/1.73 = 35209) eGFR NON- AMER. (test 89 ML/MIN/1.73 code = 90188) CALC BUN/CREAT (test code = 12 RATIO [...] code = 2219) 22 U/L CBC W/AUTO [id number] 00:00:00 Test Item Value Reference Range Interpretation [...] NUCLEATED RBCS (test code = 0.00 K/UL 36284) CBC W/AUTO [id number] 00:00:00 Test Item Value Reference Range Interpretation [...] NUCLEATED RBCS (test code = 0.00 K/UL 56340) CBC W/AUTO [id number] 00:00:00 Test Item Value Reference Range Interpretation [...] NUCLEATED RBCS (test code = 0.00 K/UL 70186) LIPID [id number] 00:00:00 Test Item Value Reference Range Interpretation Comments CHOLESTEROL (test code = 2210) 328 MG/DL TRIGLYCERIDES (test code = 2232) 614 MG/DL HDL CHOLESTEROL (test code = 42 MG/DL 2220) CALC LDL CHOL (test code = 2237) (NOTE) MG/DL RISK RATIO LDL/HDL (test code = (NOTE) RATIO 2238) LIPID [id number] 00:00:00 Test Item Value Reference Range Interpretation Comments CHOLESTEROL (test code = 2210) 328 MG/DL TRIGLYCERIDES (test code = 2232) 614 MG/DL HDL CHOLESTEROL (test code = 42 MG/DL 2220) CALC LDL CHOL (test code = 2237) (NOTE) MG/DL RISK RATIO LDL/HDL (test code = (NOTE) RATIO 2238) [id number] 00:00:00 Test Item Value Reference Range Interpretation Comments TSH, THIRD GENERATION (test code 4.310 UIU/ML = 2821) [id number] 00:00:00 Test Item Value Reference Range Interpretation Comments TSH, THIRD GENERATION (test code 4.310 UIU/ML = 2821) [id number] 00:00:00 Test Item Value Reference Range Interpretation Comments TSH, THIRD GENERATION (test code 4.310 UIU/ML = 2821) HEMOGLOBIN [id number] 00:00:00 Test Item Value Reference Range Interpretation Comments HEMOGLOBIN A1c (test code = 28480) 5.4 % HEMOGLOBIN [id number] 00:00:00 Test Item Value Reference Range Interpretation Comments HEMOGLOBIN A1c (test code = 42985) 5.4 % HEMOGLOBIN [id number] 00:00:00 Test Item Value Reference Range Interpretation Comments HEMOGLOBIN A1c (test code = 32823) 5.4 % [id number] 00:00:00 Test Item Value Reference Range Interpretation Comments LITHIUM (test code = 2039) 0.63 MEQ/L [id number] 00:00:00 Test Item Value Reference Range Interpretation Comments LITHIUM (test code = 2039) 0.63 MEQ/L [id number] 00:00:00 Test Item Value Reference Range Interpretation Comments LITHIUM (test code = 2039) 0.63 MEQ/L COMPREHENSIVE METABOLIC [id number] 00:00:00 Test Item Value Reference Range Interpretation Comments GLUCOSE (test code = 2217) 93 MG/DL BUN (test code = 2208) 10 MG/DL CREATININE (test code = 2214) 0.81 MG/DL eGFR AMER. (test code 103 ML/MIN/1.73 = 71302) eGFR NON- AMER. (test 89 ML/MIN/1.73 code = 99375) CALC BUN/CREAT (test code = 12 RATIO [...] code = 2219) 22 U/L COMPREHENSIVE METABOLIC [id number] 00:00:00 Test Item Value Reference Range Interpretation Comments GLUCOSE (test code = 2217) 93 MG/DL BUN (test code = 2208) 10 MG/DL CREATININE (test code = 2214) 0.81 MG/DL eGFR AMER. (test code 103 ML/MIN/1.73 = 59068) eGFR NON- AMER. (test 89 ML/MIN/1.73 code = 35581) CALC BUN/CREAT (test code = 12 RATIO [...] code = 2219) 22 U/L CBC W/AUTO [id number] 00:00:00 Test Item Value Reference Range Interpretation [...] NUCLEATED RBCS (test code = 0.00 K/UL 10647) CBC W/AUTO [id number] 00:00:00 Test Item Value Reference Range Interpretation [...] NUCLEATED RBCS (test code = 0.00 K/UL 74082) CBC W/AUTO [id number] 00:00:00 Test Item Value Reference Range Interpretation [...] NUCLEATED RBCS (test code = 0.00 K/UL 87750) LIPID [id number] 00:00:00 Test Item Value Reference Range Interpretation Comments CHOLESTEROL (test code = 2210) 328 MG/DL TRIGLYCERIDES (test code = 2232) 614 MG/DL HDL CHOLESTEROL (test code = 42 MG/DL 2220) CALC LDL CHOL (test code = 2237) (NOTE) MG/DL RISK RATIO LDL/HDL (test code = (NOTE) RATIO 2238) LIPID [id number] 00:00:00 Test Item Value Reference Range Interpretation Comments CHOLESTEROL (test code = 2210) 328 MG/DL TRIGLYCERIDES (test code = 2232) 614 MG/DL HDL CHOLESTEROL (test code = 42 MG/DL 2220) CALC LDL CHOL (test code = 2237) (NOTE) MG/DL RISK RATIO LDL/HDL (test code = (NOTE) RATIO 2238) [id number] 00:00:00 Test Item Value Reference Range Interpretation Comments TSH, THIRD GENERATION (test code 4.310 UIU/ML = 2821) [id number] 00:00:00 Test Item Value Reference Range Interpretation Comments TSH, THIRD GENERATION (test code 4.310 UIU/ML = 2821) [id number] 00:00:00 Test Item Value Reference Range Interpretation Comments TSH, THIRD GENERATION (test code 4.310 UIU/ML = 2821) HEMOGLOBIN [id number] 00:00:00 Test Item Value Reference Range Interpretation Comments HEMOGLOBIN A1c (test code = 70696) 5.4 % HEMOGLOBIN [id number] 00:00:00 Test Item Value Reference Range Interpretation Comments HEMOGLOBIN A1c (test code = 95311) 5.4 % HEMOGLOBIN [id number] 00:00:00 Test Item Value Reference Range Interpretation Comments HEMOGLOBIN A1c (test code = 44480) 5.4 % [id number] 00:00:00 Test Item Value Reference Range Interpretation Comments LITHIUM (test code = 2038) 0.63 MEQ/L [id number] 00:00:00 Test Item Value Reference Range Interpretation Comments LITHIUM (test code = 2038) 0.63 MEQ/L [id number] 00:00:00 Test Item Value Reference Range Interpretation Comments LITHIUM (test code = 2038) 0.63 MEQ/L COMPREHENSIVE METABOLIC [id number] 00:00:00 Test Item Value Reference Range Interpretation Comments GLUCOSE (test code = 2217) 93 MG/DL BUN (test code = 2208) 10 MG/DL CREATININE (test code = 2214) 0.81 MG/DL eGFR AMER. (test code 103 ML/MIN/1.73 = 73072) eGFR NON- AMER. (test 89 ML/MIN/1.73 code = 13291) CALC BUN/CREAT (test code = 12 RATIO [...] code = 2219) 22 U/L COMPREHENSIVE METABOLIC [id number] 00:00:00 Test Item Value Reference Range Interpretation Comments GLUCOSE (test code = 2217) 93 MG/DL BUN (test code = 2208) 10 MG/DL CREATININE (test code = 2214) 0.81 MG/DL eGFR AMER. (test code 103 ML/MIN/1.73 = 57849) eGFR NON- AMER. (test 89 ML/MIN/1.73 code = 60262) CALC BUN/CREAT (test code = 12 RATIO [...] code = 2219) 22 U/L CBC W/AUTO [id number] 00:00:00 Test Item Value Reference Range Interpretation [...] NUCLEATED RBCS (test code = 0.00 K/UL 51854) CBC W/AUTO [id number] 00:00:00 Test Item Value Reference Range Interpretation [...] NUCLEATED RBCS (test code = 0.00 K/UL 90124) CBC W/AUTO [id number] 00:00:00 Test Item Value Reference Range Interpretation [...] NUCLEATED RBCS (test code = 0.00 K/UL 64129) LIPID [id number] 00:00:00 Test Item Value Reference Range Interpretation Comments CHOLESTEROL (test code = 2210) 328 MG/DL TRIGLYCERIDES (test code = 2232) 614 MG/DL HDL CHOLESTEROL (test code = 42 MG/DL 2220) CALC LDL CHOL (test code = 2237) (NOTE) MG/DL RISK RATIO LDL/HDL (test code = (NOTE) RATIO 2238) LIPID [id number] 00:00:00 Test Item Value Reference Range Interpretation Comments CHOLESTEROL (test code = 2210) 328 MG/DL TRIGLYCERIDES (test code = 2232) 614 MG/DL HDL CHOLESTEROL (test code = 42 MG/DL 2220) CALC LDL CHOL (test code = 2237) (NOTE) MG/DL RISK RATIO LDL/HDL (test code = (NOTE) RATIO 2238) [id number] 00:00:00 Test Item Value Reference Range Interpretation Comments TSH, THIRD GENERATION (test code 4.310 UIU/ML = 2821) [id number] 00:00:00 Test Item Value Reference Range Interpretation Comments TSH, THIRD GENERATION (test code 4.310 UIU/ML = 2821) [id number] 00:00:00 Test Item Value Reference Range Interpretation Comments TSH, THIRD GENERATION (test code 4.310 UIU/ML = 2821) HEMOGLOBIN [id number] 00:00:00 Test Item Value Reference Range Interpretation Comments HEMOGLOBIN A1c (test code = 00553) 5.4 % HEMOGLOBIN [id number] 00:00:00 Test Item Value Reference Range Interpretation Comments HEMOGLOBIN A1c (test code = 95735) 5.4 % HEMOGLOBIN [id number] 00:00:00 Test Item Value Reference Range Interpretation Comments HEMOGLOBIN A1c (test code = 64759) 5.4 % [id number] 00:00:00 Test Item Value Reference Range Interpretation Comments LITHIUM (test code = 2039) 0.63 MEQ/L [id number] 00:00:00 Test Item Value Reference Range Interpretation Comments LITHIUM (test code = 2039) 0.63 MEQ/L [id number] 00:00:00 Test Item Value Reference Range Interpretation Comments LITHIUM (test code = 2039) 0.63 MEQ/L"
[2022-10-09] MEDS ORDERED: ACETAMINOPHEN 500 MG TAB ONE (10:57)
--- NOTE | 2022-10-09 11:58 | RAD REPORT ---
EXAM DESCRIPTION: RAD - Hip Right 2 View - 10/09/2022 11:08 am CLINICAL HISTORY: fall COMPARISON: Hip Right 2 View dated 09/11/2022; Hip Right 2 View dated 03/29/2020; Hip Right Wo Con da cyndy 09/11/2022 TECHNIQUE: Right hip, AP and frog-leg views. FINDINGS: Chronic appearing right femoral neck fracture at the base of the neck, with osseous remode ling. Appearance is not significantly changed since the recent pelvis/right hip CT. No other suspicio us osseous lesions. IMPRESSION: Chronic appearing right femoral neck fracture.
--- NOTE | 2022-10-09 11:59 | RAD REPORT ---
EXAM DESCRIPTION: RAD - Ankle Left 3 View - 10/09/2022 11:08 am CLINICAL HISTORY: swelling sp fall COMPARISON: No comparisons TECHNIQUE: Left ankle, 3 views. FINDINGS: No fracture, dislocation or periosteal reaction. No joint effusion seen. No joint space na rrowing. No soft tissue abnormality. IMPRESSION: Negative left ankle radiographs.
--- NOTE | 2022-10-09 12:00 | RAD REPORT ---
EXAM DESCRIPTION: RAD - Foot Left 3 View - 10/09/2022 11:08 am CLINICAL HISTORY: swelling sp fall COMPARISON: No comparisons TECHNIQUE: Left foot, 3 views. FINDINGS: No fracture, dislocation or periosteal reaction. No air or foreign body in the soft tissues. IMPRESSION: Negative left foot radiographs.
--- NOTE | 2022-10-09 12:29 | ER ---
Nurse's Notes [facility] Name: Rody Doan Age: 46 yrs Sex: Female : 1975 Arrival Date: 10/09/2022 Time: 09:43 Bed 11 Private MD: Diagnosis: Sprain of ankle Presentation: 10/09 10:15 Chief complaint: Patient states: Left foot, right hip and right upper leg pain. Fell nj1 down the stairs (7-8 steps), leg gave up. Denies hitting head. Took some oxycodone without any relief. Coronavirus screen: Vaccine status: Patient reports receiving the 2nd dose of the covid vaccine. Ebola Screen: Patient denies travel to an Ebola-affected area in the 21 days before illness onset. Initial Sepsis Screen: Does the patient meet any 2 criteria? No. Patient's initial sepsis screen is negative. Does the patient have a suspected source of infection? No. Patient's initial sepsis screen is negative. Risk Assessment: Do you want to hurt yourself or someone else? Patient reports no desire to harm self or others. Onset of symptoms was October 09, 2022. 10:15 Method Of Arrival: Ambulatory nj1 10:15 Acuity: MEGHA 3 nj1 Triage Assessment: 13:04 General: Behavior is calm, cooperative. cm10 Historical: - Allergies: 10:18 Flexeril; nj1 10:18 Morphine; nj1 - PMHx: 10:18 Anxiety; Bipolar disorder; Chronic pain; Depression; Hypertension; Hypothyroidism; nj1 Seizures; - PSHx: 10:18 Cholecystectomy; hysterectomy; nj1 - Immunization history:: Client reports receiving the 2nd dose of the Covid vaccine. - Social history:: Smoking status: Patient reports the use of cigarette tobacco products, smokes one-half pack cigarettes per day. Screenin:57 [facility] ED Fall Risk Assessment (Adult) History of falling in the last 3 months, ss including since admission Yes- single mechanical fall (1 pt) Confusion or Disorientation No (0 pts) Intoxicated or Sedated No (0 pts) Impaired Gait Yes (1 pt) Mobility Assist Device Used Yes (1 pt) Altered Elimination No (0 pt). Abuse screen: Denies threats or abuse. Denies injuries from another. Nutritional screening: No deficits noted. Tuberculosis screening: Never had TB. Assessment: 10:00 Reassessment: Not in WR when called for triage. nj1 10:29 Reassessment: called to exam room. No answer. Unable to locate patient. ss 10:43 Reassessment: PT placed in ER room 11. PT states she was outside getting, "fresh air" ss Pt observed by registration staff to be smoking cigarettes. 10:57 General: Appears uncomfortable. Pain: Complains of pain in L foot, R hip Pain currently ss is 10 out of 10 on a pain scale. Neuro: Level of Consciousness is awake, alert, obeys commands, Oriented to person, place, time, situation. Cardiovascular: Pulses are palpable in right radial artery, right posterior tibial artery, left radial artery and left posterior tibial artery. Respiratory: Airway is patent Respiratory effort is even, unlabored, Respiratory pattern is regular, symmetrical. Derm: Skin is intact, is healthy with good turgor, Skin is dry, Skin is pink, warm \\T\\ dry. normal. 11:52 Reassessment: No changes from previously documented assessment. Patient and/or family cm10 updated on plan of care and expected duration. Pain level reassessed. Patient is alert, oriented x 3, equal unlabored respirations, skin warm/dry/pink. Pt complaining of pain and states that she cannot get comfortable. Provider aware. Vital Signs: 10:15 BP 118 / 74; Pulse 85; Resp 19; Temp 97.5(TE); Pulse Ox 99% on R/A; Weight 69.85 kg; nj1 Height 5 ft. 4 in. ; Pain 10/10; 12:47 BP 111 / 63; Pulse 60; Resp 16; Pulse Ox 100% on R/A; cm10 10:15 Body Mass Index 26.43 (69.85 kg, 162.56 cm) nj1 10:15 Pain Scale: Adult nj1 ED Course: 09:45 Patient arrived in ED. rg4 09:47 Carlos Mackey MD is Attending Physician. bs3 10:18 Triage completed. nj1 10:18 Arm band placed on left wrist. nj1 10:26 Earlene Mcgovern, BONIFACIO is Primary Nurse. ss 10:57 Patient has correct armband on for positive identification. Bed in low position. Call ss light in reach. 10:57 Patient maintains SpO2 saturation greater than 95% on room air. ss 11:10 Hip Right 2 View XRAY In Process Unspecified. EDMS 11:10 Ankle Left 3 View XRAY In Process Unspecified. EDMS 11:10 Foot Left 3 View XRAY In Process Unspecified. EDMS 11:46 Primary Nurse role handed off by Earlene Mcgovern, BONIFACIO cm10 11:46 Debora Regalado, BONIFACIO is Primary Nurse. cm10 12:28 London Quinn MD is Referral Physician. bs3 13:04 No provider procedures requiring assistance completed. Patient did not have IV access cm10 during this emergency room visit. Administered Medications: 10:43 Not Given (pt states allergy. Amrit notified): Ketorolac IM 30 mg IM once ss 10:50 Drug: Acetaminophen PO 1000 mg Route: PO; ss 11:50 Follow up: Response: No adverse reaction; Pain is unchanged, physician notified cm10 12:47 Drug: Ketorolac IM 30 mg Route: IM; Site: right ventrogluteal; cm10 13:04 Follow up: Response: No adverse reaction cm10 Medication: 10:57 VIS not applicable for this client. ss Outcome: 12:29 Discharge ordered by . bs3 13:04 Discharged to home via wheelchair, with family. cm10 13:04 Condition: good 13:04 Discharge instructions given to patient, Instructed on discharge instructions, follow up and referral plans. Demonstrated understanding of instructions, follow-up care. 13:05 Patient left the ED. cm10 Signatures: Dispatcher [employer] EDMS Earlene Mcgovern RN RN ss Garcia, Rubi rg4 Carlos Mackey MD MD bs3 Melony Pastor RN RN nj1 Debora Regalado RN RN cm10 Corrections: (The following items were deleted from the chart) 12:38 10:18 Allergies: Toradol; nj1 cm10 12:38 11:52 Allergies: NSAIDS; cm10 cm10
--- NOTE | 2022-10-09 12:29 | EDPHYS ---
Physician Documentation [facility] Name: Rody Doan Age: 46 yrs Sex: Female : 1975 Arrival Date: 10/09/2022 Time: 09:43 Bed 11 Private MD: ED Physician Carlos Mackey HPI: 10/09 10:00 This 46 yrs old Female presents to ER via Unassigned with complaints of Fall bs3 Injury, Foot Pain. 10:00 46yo yo f hx of chrnoic hip pain on the right presents sp fall with left ankle pain, bs3 right hip pain. She was going down the stairs slipped and fell twisted her left ankle and also landed on her right hip no head injury or loss of consciousness no chest pain shortness of breath nausea vomiting nothing is bothering her of note she is scheduled to get outpatient surgery sometime next week with Dr. Quinn for the right hip to get a total hip replacement. Historical: - Allergies: 10:18 Flexeril; nj1 10:18 Morphine; nj1 - PMHx: 10:18 Anxiety; Bipolar disorder; Chronic pain; Depression; Hypertension; Hypothyroidism; nj1 Seizures; - PSHx: 10:18 Cholecystectomy; hysterectomy; nj1 - Immunization history:: Client reports receiving the 2nd dose of the Covid vaccine. - Social history:: Smoking status: Patient reports the use of cigarette tobacco products, smokes one-half pack cigarettes per day. ROS: 10:00 Constitutional: Negative for fever, chills bs3 10:00 All other systems are negative. Exam: 10:00 Constitutional: This is a well developed, well nourished patient who is awake, alert, bs3 and in no acute distress. Head/Face: Normocephalic, atraumatic. Eyes: Pupils equal round and reactive to light, extra-ocular motions intact. Lids and lashes normal. ENT: mmm, no posterior phyarngeal erythema Neck: Trachea midline, no thyromegaly, no neck stiffness Chest/axilla: Normal chest wall appearance and motion. Nontender with no deformity. No lesions are appreciated. Cardiovascular: Regular rate and rhythm with a normal S1 and S2. symmetric pulses in upper extremities Respiratory: Lungs have equal breath sounds bilaterally, clear to auscultation, no respiratory distress Abdomen/GI: Soft, non-tender, no rebound or guarding Skin: Warm, dry with normal turgor. Normal color with no rashes, no lesions, and no evidence of cellulitis. MS/ Extremity: left ankle is swollen, diffusely tender on lateral/medial malleolus, right hip pain to palpation. Neuro: Awake and alert, GCS 15, oriented to person, place, time, and situation. Cranial nerves II-XII grossly intact. Motor strength 5/5 in all extremities. Sensory grossly intact. Psych: Awake, alert, with orientation to person, place and time. Behavior, mood, and affect are within normal limits. Vital Signs: 10:15 BP 118 / 74; Pulse 85; Resp 19; Temp 97.5(TE); Pulse Ox 99% on R/A; Weight 69.85 kg; nj1 Height 5 ft. 4 in. ; Pain 10/10; 12:47 BP 111 / 63; Pulse 60; Resp 16; Pulse Ox 100% on R/A; cm10 10:15 Body Mass Index 26.43 (69.85 kg, 162.56 cm) nj1 10:15 Pain Scale: Adult nj1 MDM: 09:47 Patient medically screened. bs3 11:03 Differential diagnosis: abrasion, contusion, fracture. Data reviewed: vital signs, bs3 nurses notes. Independent interpretation of the following test(s) in the Emergency Department X-Ray: My interpretation is No acute ankle fracture. 12:28 ED course: No acute fracture per radiology advised RICE. bs3 10/09 09:56 Order name: Hip Right 2 View XRAY; Complete Time: 12:28 bs3 10/09 09:56 Order name: Ankle Left 3 View XRAY; Complete Time: 12:28 bs3 10/09 09:56 Order name: Foot Left 3 View XRAY; Complete Time: 12:28 bs3 Administered Medications: 10:43 Not Given (pt states allergy. Amrit notified): Ketorolac IM 30 mg IM once ss 10:50 Drug: Acetaminophen PO 1000 mg Route: PO; ss 11:50 Follow up: Response: No adverse reaction; Pain is unchanged, physician notified cm10 12:47 Drug: Ketorolac IM 30 mg Route: IM; Site: right ventrogluteal; cm10 13:04 Follow up: Response: No adverse reaction cm10 Disposition Summary: 10/09/22 12:29 Discharge Ordered Location: Home bs3 Problem: new bs3 Symptoms: have improved bs3 Condition: Stable bs3 Diagnosis - Sprain of ankle bs3 Followup: bs3 - With: Private Physician - When: 5 - 6 days - Reason: Re-evaluation by your physician Followup: bs3 - With: London Quinn MD - When: 2 - 3 days - Reason: Re-evaluation by your physician Discharge Instructions: - Discharge Summary Sheet bs3 - RICE Therapy for Routine Care of Injuries bs3 - Ankle Sprain, [id number] bs3 Forms: - Medication Reconciliation Form bs3 - Thank You Letter bs3 - Antibiotic Education bs3 - Prescription Opioid Use bs3 - [email or web address] bs3 Signatures: Dispatcher [employer] EDEarlene Gomez, RN RN Carlos Vinson MD MD bs3 Melony Pastor RN RN nj1 Debora Regalado RN RN cm10 Corrections: (The following items were deleted from the chart) 12:38 10:18 Allergies: Toradol; nj1 cm10 12:38 11:52 Allergies: NSAIDS; cm10 cm10
[2022-10-09] MEDS ORDERED: KETOROLAC 30 MG/ML INJ ONE (12:50)
[2022-10-09 13:46] VITALS: BP 118/74; TEMP 97.5; O2SAT 99
== END 2022-10-09 13:05 | disposition home or self-care (01) ==
LOC: ER 09:43
DX: S93.402A Sprain of unspecified ligament of left ankle, initial encounter (principal); M25.551 Pain in right hip; F17.210 Nicotine dependence, cigarettes, uncomplicated

== ENCOUNTER 2022-11-22 09:00 | Emergency (ER) | payer OTHER ==
--- OUTSIDE RECORDS SUMMARY | 2022-11-22 09:24 | XMS REPORT | Continuity of Care Document ---
:1975 Author Organization [facility] t Address [address]. [address] [place] [address] Care Team Providers Name Role Phone Asked, No Pcp Primary Care Physician Unavailable YENNI BECERRA Attending Clinician Unavailable YENNI BECERRA Attending Clinician Unavailable Sharon Agudelo Attending Clinician Unavailable Husam Sol MD Attending Clinician Adonay Trujillo MD Attending Clinician Mathew Viera DO Attending Clinician Provider, Unknown Attending Clinician Unavailable MARIIA CURRAN Attending Clinician Unavailable Mariia Landry Attending Clinician Stefania Tobar MD Attending Clinician LUTHER JOSE Attending Clinician Unavailable BEBA_Oral_Cody Attending Clinician Unavailable Seth Ariza MD Attending Clinician STEFANIA TOBAR Attending Clinician Unavailable LISA MURILLO Attending Clinician Unavailable Lisa Lopez Attending Clinician STEFANIA HERNADEZ Attending Clinician Unavailable Stefania Jones DO Attending Clinician ANDERSON ALATORRE Attending Clinician Unavailable Celi MD, Anderson S Attending Clinician Lydia CARLOS, Dionisio Attending Clinician Doctor Unassigned, [place] Attending Clinician Unavailable Kristine Ojeda MD Attending [...] SREEKANTH MONSALVE Attending Clinician Unavailable JUAN CARLOS PIEDRA Attending Clinician Unavailable Ila Pinto Attending Clinician Lynda Shultz MD Attending Clinician STEFANIA HOPKINS Attending Clinician Unavailable Juan Carlos Rice Attending Clinician LYNDA SHULTZ Attending Clinician Unavailable c-Lab Attending Clinician Unavailable JV RANDHAWA Attending Clinician Unavailable Mick Jaime MD Attending Clinician PAULINA CASANOVA Attending Clinician Unavailable Paulina Casanova MD Attending Clinician Jaspreet VALDOVINOS, Mariangel Parker Attending Clinician Unavailable Gee Baptiste MD Attending Clinician BRADEN DEAN Attending Clinician Unavailable Yolande CARLOS, [facility] Attending Clinician Aparna Rowley Attending Clinician Sharon Agudelo Admitting Clinician Unavailable UNDEFINED Admitting Clinician Unavailable MATHEW VIERA Admitting Clinician Unavailable MD ROBYN [facility] MARLENE Admitting Clinician Unavailable MARIIA CURRAN Admitting Clinician Unavailable Leno Admitting Clinician Unavailable LISA MURILLO Admitting Clinician Unavailable ANDERSON ALATORRE Admitting Clinician Unavailable Payers Payer Name Policy Type Policy Number Effective Date Expiration Date [facility] [id number] [facility] PLUS [id number] 2020 00:00:[address] [facility] COMMUNITY PLAN [id number] DH - DUAL (MEDICARE REPLACEMENT HMO) Problems Condition Condition Condition Status Onset Resolution Last Treating Co mments Source Name Details Category Date Date Treatment Clinician Date Intractabl Intractabl Disease Active M ethodi e pain e pain 6-28 st 00:00: Hospita 00 l Hip pain, Hip pain, Disease Active Met hodi acute, acute, 6 st right right 00:00: Hospita 00 l Closed Closed Disease Active Methodi fracture fracture 10-11 st of right of right 00:00: Hospit a hip hip 00 l Other Other Disease Active Univers specified specified 11-05 [facility] [place] [facility] , , [place] [facility] unspecifie unspecifie d as to d as to episode of episode of care care Allergies, Adverse Reactions, Alerts Allergy Allergy Status Severity Reaction(s) Onset Inactive Treating Comm ents Source Name Type Date Date Clinician No Known DA Active [facility] Allergie 10-16 [place] [facility] 00:[facility]: [facility] [address] NO KNOWN Drug Active Univers ALLERGIE Class ity of S [facility] Social History Social Habit Start Date Stop Date Quantity Comments Source History of tobacco Cigarette [facility] History of Social 2022-10-12 2022-10-[address] function 00:00:00 00:00:00 Hospital Cigarettes smoked 2022-10-12 2022-10-[address] current (pack per 00:00:00 00:00:00 Hospita l day) - Reported Exposure to 2022-07-18 2022-07-28 Not sure University SARS-CoV-2 (event) 00:00:00 08:24:00 [facility] Alcohol intake 2022-07-28 2022-07-28 Current University of 00:00:00 00:00:00 non-drinker of [facility] alcohol Branch (finding) Tobacco use and 2022-04-25 2022-04-25 Smokeless Universit y of exposure 00:00:00 00:00:[address] tobacco non-user [facility] Cigarette 2022-04-25 2022-04-25 University of pack-years 00:00:00 00:00:00 [facility] Sex Assigned At [birth year] Y[facility] 00:00:00 00:00:00 Hospital Smoking Status Start Date Stop Date Source Tobacco smoking consumption unknown [facility] [place] Smokes tobacco daily 2022-10-12 [facility] Ordered F[facility] Start Stop Current Ordering Indication Dosage Frequency Signature Comments Components Source Medication Medication Date Date Medication? Clinician (SIG) Name Name levothyroxi Yes 150ug QD Take 1 Met hodi ne 6-[address] (SYNTHROID) 13:19: (150 mcg Ho spita 150 mcg 04 total) by l tablet mouth daily. clonAZEPAM 0 Yes 2mg Q.[id number] Take 2 Methodi (KlonoPIN) 6-30 [id number] tablets (2 st 1 MG tablet 13:19: 3D mg total) H ospita 04 by mouth 3 l (three) times a day. SUMAtriptan 0 Yes 25mg Take 1 Meth aly (IMITREX) 6-30 tablet (25 st 25 MG 13:19: mg total) Hospita tablet 04 by mouth l as needed for migraine. May repeat in 2 hours if unresolved . Do not exceed 200 mg in 24 hours. lisinopriL 0 Yes 30mg QD Take 1.5 Met hodi (PRINIVIL) 6-[address] 20 mg 13:19: (30 mg Hospita tablet 04 total) by l mouth daily. oxyCODone-a Yes [id number] 1{tbl} Q4H Take 1 M ethodi cetaminophe 6-[address] n 13:19: mouth Hospita (PERCOCET) 04 every 4 l 10-325 mg (four) per tablet hours as needed for moderate pain .acute pain. Max Daily Amount: 6 tablets pregabalin 0 Yes 150mg Q.[id number] Take 1 Methodi (LYRICA) 6-[id number] 150 MG 13:19: 3D (150 mg Hospita capsule 04 total) by l mouth 3 (three) times a day. levothyroxi 0 Yes 150ug QD Take 1 Met hodi ne 6-[address] (SYNTHROID) 13:19: (150 mcg Ho spita 150 mcg 04 total) by l tablet mouth daily. clonAZEPAM 2022-0 Yes 2mg Q.[id number] Take 2 Methodi (KlonoPIN) 6-30 [id number] tablets (2 st 1 MG tablet 13:19: 3D mg total) H ospita 04 by mouth 3 l (three) times a day. SUMAtriptan 2022-0 Yes 25mg Take 1 Meth aly (IMITREX) 6-30 tablet (25 st 25 MG 13:19: mg total) Hospita tablet 04 by mouth l as needed for migraine. May repeat in 2 hours if unresolved . Do not exceed 200 mg in 24 hours. lisinopriL 2022-0 Yes 30mg QD Take 1.5 Met hodi (PRINIVIL) 6-[address] 20 mg 13:19: (30 mg Hospita tablet 04 total) by l mouth daily. oxyCODone-a 2022-0 Yes 1{tbl} Q4H Take 1 M ethodi cetaminophe 6-[address] n 13:19: mouth Hospita (PERCOCET) 04 every 4 l 10-325 mg (four) per tablet hours as needed for moderate pain .acute pain. Max Daily Amount: 6 tablets pregabalin 0 Yes 150mg Q.[id number] Take 1 Methodi (LYRICA) 6-[id number] 150 MG 13:19: 3D (150 mg Hospita capsule 04 total) by l mouth 3 (three) times a day. ondansetron 0 2022- No 4mg Q8H Take 1 Met hodi ODT 4-14 04-20 tablet (4 st (ZOFRAN-ODT 00:00: 04:59 mg total) Hospita ) 4 MG 00 :00 by mouth l disintegrat every 8 ing tablet (eight) hours as needed for nausea or vomiting for up to 5 days. acetaminoph 2022-0 2022- [place] [id number] 1{tbl} Q6H Take 1-2 Methodi en-codeine 4-14 04-[address] (TYLENOL 00:00: 04:59 mouth Hospita WITH 00 :00 every 6 l CODEINE #3) (six) 300-30 mg hours as per tablet needed for moderate pain for up to 5 days .acute pain. ondansetron 2023-0 2023- No 4mg Q8H Take 1 Met hodi ODT 4-14 04-20 tablet (4 st (ZOFRAN-ODT 00:00: 04:59 mg total) Hospita ) 4 MG 00 :00 by mouth l disintegrat every 8 ing tablet (eight) hours as needed for nausea or vomiting for up to 5 days. acetaminoph 2022-0 2022- No [id number] 1{tbl} Q6H Take 1-2 Methodi en-codeine 4-14 04-[address] (TYLENOL 00:00: 04:59 mouth Hospita WITH 00 :00 every 6 l CODEINE #3) (six) 300-30 mg hours as per tablet needed for moderate pain for up to 5 days .acute pain. ondansetron 2023-0 2023- No 4mg Q8H Take 1 Met hodi ODT 4-14 04-20 tablet (4 st (ZOFRAN-ODT 00:00: 04:59 mg total) Hospita ) 4 MG 00 :00 by mouth l disintegrat every 8 ing tablet (eight) hours as needed for nausea or vomiting for up to 5 days. acetaminoph 2022-0 2022- [place] [id number] 1{tbl} Q6H Take 1-2 Methodi en-codeine 4-14 04-[address] (TYLENOL 00:00: 04:59 mouth Hospita WITH 00 :00 every 6 l CODEINE #3) (six) 300-30 mg hours as per tablet needed for moderate pain for up to 5 days .acute pain. ondansetron 2023-0 2023- No 4mg Q8H Take 1 Met hodi ODT 4-14 04-20 tablet (4 st (ZOFRAN-ODT 00:00: 04:59 mg total) Hospita ) 4 MG 00 :00 by mouth l disintegrat every 8 ing tablet (eight) hours as needed for nausea or vomiting for up to 5 days. acetaminoph 202-0 2022- No [id number] 1{tbl} Q6H Take 1-2 Methodi en-codeine 4-14 04-[address] (TYLENOL 00:00: 04:59 mouth Hospita WITH 00 :00 every 6 l CODEINE #3) (six) 300-30 mg hours as per tablet needed for moderate pain for up to 5 days .acute pain. ondansetron 2022- No 4mg Q8H Take 1 Met hodi ODT 07-28-20 tablet (4 st (ZOFRAN-ODT 00:00: 04:59 mg total) Hospita ) 4 MG 00 :00 by mouth l disintegrat every 8 ing tablet (eight) hours as needed for nausea or vomiting for up to 5 days. acetaminoph 2022- [place] [id number] 1{tbl} Q6H Take 1-2 Methodi en-codeine 07-28-[address] (TYLENOL 00:00: 04:59 mouth Hospita WITH 00 :00 every 6 l CODEINE #3) (six) 300-30 mg hours as per tablet needed for moderate pain for up to 5 days .acute pain. keTOROlac 2022-0 2022- No 10mg Q6H Take 1 Metho di (TORadol) 07-28-19 tablet (10 st 10 mg 00:00: 04:59 mg total) Hospit a tablet 00 :00 by mouth l every 6 (six) hours as needed for moderate pain for up to 4 days. keTOROlac 2022-0 2022- No 10mg Q6H Take 1 Metho di (TORadol) -28 07-19 tablet (10 st 10 mg 00:00: 04:59 mg total) Hospit a tablet 00 :00 by mouth l every 6 (six) hours as needed for moderate pain for up to 4 days. keTOROlac 2022-0 2022- No 10mg Q6H Take 1 Metho di (TORadol) -28 07-19 tablet (10 st 10 mg 00:00: 04:59 mg total) Hospit a tablet 00 :00 by mouth l every 6 (six) hours as needed for moderate pain for up to 4 days. keTOROlac 2022-0 2022- No 10mg Q6H Take 1 Metho [...] 00 160-4.5 MCG/ACT AERO amLODIPine 2022-0 Yes [id number] 5mg Take 5 mg Univers 5 mg tablet 1-10 by mouth ity of 14:05: in the [place] [address] morning. Medical Branch amLODIPine 2022-0 Yes [id number] 5mg Take 5 mg Univers 5 mg tablet 1-10 by mouth ity of 14:05: in the [place] [address] morning. Medical Branch amLODIPine 2022-0 Yes [id number] 5mg Take 5 mg Univers 5 mg tablet 1-10 by mouth ity of 14:05: in the [place] [address] morning. Medical Branch amLODIPine 2023-0 Yes [id number] 5mg Take 5 mg Univers 5 mg tablet 1-10 by mouth ity of 14:05: in the [place] [address] morning. Medical Branch amLODIPine 2022-0 Yes [id number] 5mg Take 5 mg Univers 5 mg tablet 1-10 by mouth ity of 14:05: in the [place] [address] morning. Medical Branch amLODIPine 2022-0 Yes [id number] 5mg Take 5 mg Univers 5 mg tablet 1-10 by mouth ity of 14:05: in the [place] [address] morning. Medical Branch amLODIPine 2022-0 Yes [id number] 5mg Take 5 mg Univers 5 mg tablet 1-10 by mouth ity of 14:05: in the [place] [address] morning. Medical Branch amLODIPine 2022-0 Yes [id number] 5mg Take 5 mg Univers 5 mg tablet 1-10 by mouth ity of 14:05: in the [place] [address] morning. Medical Branch amLODIPine 2022-0 Yes [id number] 5mg Take 5 mg Univers 5 mg tablet 1-10 by mouth ity of 14:05: in the [place] [address] morning. Medical Branch amLODIPine 2022-0 Yes [id number] 5mg Take 5 mg Univers 5 mg tablet 1-10 by mouth ity of 14:05: in the [place] [address] morning. Medical Branch amLODIPine 2022-0 Yes [id number] 5mg Take 5 mg Univers 5 mg tablet 1-10 by mouth ity of 14:05: in the [place] [address] morning. Medical Branch amLODIPine 2022-0 Yes [id number] 5mg Take 5 mg Univers 5 mg tablet 1-10 by mouth ity of 14:05: in the [place] [address] morning. Medical Branch amLODIPine 3-0 Yes [id number] 5mg Take 5 mg Univers 5 mg tablet 1-10 by mouth ity of 14:05: in the [place] [address] morning. Medical Branch amLODIPine 3-0 Yes [id number] 5mg Take 5 mg Univers 5 mg tablet 1-10 by mouth ity of 14:05: in the [place] [address] morning. Medical Branch amLODIPine 3-0 Yes [id number] 5mg Take 5 mg Univers 5 mg tablet 1-10 by mouth ity of 14:05: in the [place] [address] morning. Medical Branch amLODIPine 3-0 Yes [id number] 5mg Take 5 mg Univers 5 mg tablet 1-10 by mouth ity of 14:05: in the [place] 17 morning. Medical Branch amLODIPine 3-0 Yes [id number] 5mg Take 5 mg Univers 5 mg tablet 1-10 by mouth ity of 14:05: in the [place] 17 morning. Medical Branch amLODIPine 3-0 Yes [id number] 5mg Take 5 mg Univers 5 mg tablet 1-10 by mouth ity of 14:05: in the [place] 17 morning. Medical Branch amLODIPine 3-0 Yes [id number] 5mg Take 5 mg Univers 5 mg tablet 1-10 by mouth ity of 14:05: in the [place] [address] morning. Medical Branch omeprazole 3-0 Yes [id number] 40mg Take 40 mg Univers 40 mg 1-10 by mouth ity of capsule 13:52: in the [place] [address] morning. Medical Branch omeprazole 3-0 Yes [id number] 40mg Take 40 mg Univers 40 mg 1-10 by mouth ity of capsule 13:52: in the [place] [address] morning. Medical Branch omeprazole 3-0 Yes [id number] 40mg Take 40 mg Univers 40 mg 1-10 by mouth ity of capsule 13:52: in the [place] [address] morning. Medical Branch omeprazole 3-0 Yes [id number] 40mg Take 40 mg Univers 40 mg 1-10 by mouth ity of capsule 13:52: in the [place] [address] morning. Medical Branch omeprazole 3-0 Yes [id number] 40mg Take 40 mg Univers 40 mg 1-10 by mouth ity of capsule 13:52: in the [place] [address] morning. Medical Branch omeprazole 3-0 Yes [id number] 40mg Take 40 mg Univers 40 mg 1-10 by mouth ity of capsule 13:52: in the [place] [address] morning. Medical Branch omeprazole 3-0 Yes [id number] 40mg Take 40 mg Univers 40 mg 1-10 by mouth ity of capsule 13:52: in the [place] [address] morning. Medical Branch omeprazole 2023-0 Yes [id number] 40mg Take 40 mg Univers 40 mg 1-10 by mouth ity of capsule 13:52: in the [place] [address] morning. Medical Branch omeprazole 2023-0 Yes [id number] 40mg Take 40 mg Univers 40 mg 1-10 by mouth ity of capsule 13:52: in the [place] [address] morning. Medical Branch omeprazole 3-0 Yes [id number] 40mg Take 40 mg Univers 40 mg 1-10 by mouth ity of capsule 13:52: in the [place] [address] morning. Medical Branch omeprazole 2023-0 Yes [id number] 40mg Take 40 mg Univers 40 mg 1-10 by mouth ity of capsule 13:52: in the [place] [address] morning. Medical Branch omeprazole 2023-0 Yes [id number] 40mg Take 40 mg Univers 40 mg 1-10 by mouth ity of capsule 13:52: in the [place] [address] morning. Medical Branch omeprazole 2023-0 Yes [id number] 40mg Take 40 mg Univers 40 mg 1-10 by mouth ity of capsule 13:52: in the [place] [address] morning. Medical Branch omeprazole 2023-0 Yes [id number] 40mg Take 40 mg Univers 40 mg 1-10 by mouth ity of capsule 13:52: in the [place] [address] morning. Medical Branch omeprazole 2023-0 Yes [id number] 40mg Take 40 mg Univers 40 mg 1-10 by mouth ity of capsule 13:52: in the [place] [address] morning. Medical Branch omeprazole 2023-0 Yes [id number] 40mg Take 40 mg Univers 40 mg 1-10 by mouth ity of capsule 13:52: in the [place] [address] morning. Medical Branch omeprazole 2023-0 Yes [id number] 40mg Take 40 mg Univers 40 mg 1-10 by mouth ity of capsule 13:52: in the [place] [address] morning. Medical Branch omeprazole 2023-0 Yes [id number] 40mg Take 40 mg Univers 40 mg 1-10 by mouth ity of capsule 13:52: in the [place] [address] morning. Medical Branch omeprazole 2023-0 Yes [id number] 40mg Take 40 mg Univers 40 mg 1-10 by mouth ity of capsule 13:52: in the [place] [address] morning. Medical Branch clonazePAM 2023-0 Yes [id number] 1mg Take 1 mg Univers 1 mg tablet 1-10 by mouth 3 it y of 13:51: (three) [place] 23 times Medical daily as Branch needed. clonazePAM 2023-0 Yes [id number] 1mg Take 1 mg Univers 1 mg tablet 1-10 by mouth 3 it y of 13:51: (three) [place] 23 times Medical daily as Branch needed. clonazePAM 2023-0 Yes [id number] 1mg Take 1 mg Univers 1 mg tablet 1-10 by mouth 3 it y of 13:51: (three) [place] 23 times Medical daily as Branch needed. clonazePAM 2023-0 Yes [id number] 1mg Take 1 mg Univers 1 mg tablet 1-10 by mouth 3 it y of 13:51: (three) [place] 23 times Medical daily as Branch needed. clonazePAM 2023-0 Yes [id number] 1mg Take 1 mg Univers 1 mg tablet 1-10 by mouth 3 it y of 13:51: (three) [place] 23 times Medical daily as Branch needed. clonazePAM 2023-0 Yes [id number] 1mg Take 1 mg Univers 1 mg tablet 1-10 by mouth 3 it y of 13:51: (three) [place] 23 times Medical daily as Branch needed. clonazePAM 2023-0 Yes [id number] 1mg Take 1 mg Univers 1 mg tablet 1-10 by mouth 3 it y of 13:51: (three) [place] 23 times Medical daily as Branch needed. clonazePAM 2023-0 Yes [id number] 1mg Take 1 mg Univers 1 mg tablet 1-10 by mouth 3 it y of 13:51: (three) [place] 23 times Medical daily as Branch needed. clonazePAM 2023-0 Yes [id number] 1mg Take 1 mg Univers 1 mg tablet 1-10 by mouth 3 it y of 13:51: (three) [place] 23 times Medical daily as Branch needed. clonazePAM 2023-0 Yes [id number] 1mg Take 1 mg Univers 1 mg tablet 1-10 by mouth 3 it y of 13:51: (three) [place] 23 times Medical daily as Branch needed. clonazePAM 2023-0 Yes [id number] 1mg Take 1 mg Univers 1 mg tablet 1-10 by mouth 3 it y of 13:51: (three) [place] 23 times Medical daily as Branch needed. clonazePAM 2023-0 Yes [id number] 1mg Take 1 mg Univers 1 mg tablet 1-10 by mouth 3 it y of 13:51: (three) [place] 23 times Medical daily as Branch needed. clonazePAM 2023-0 Yes [id number] 1mg Take 1 mg Univers 1 mg tablet 1-10 by mouth 3 it y of 13:51: (three) [place] 23 times Medical daily as Branch needed. clonazePAM 2023-0 Yes [id number] 1mg Take 1 mg Univers 1 mg tablet 1-10 by mouth 3 it y of 13:51: (three) [place] 23 times Medical daily as Branch needed. clonazePAM 2023-0 Yes [id number] 1mg Take 1 mg Univers 1 mg tablet 1-10 by mouth 3 it y of 13:51: (three) [place] 23 times Medical daily as Branch needed. clonazePAM 3-0 Yes [id number] 1mg Take 1 mg Univers 1 mg tablet 1-10 by mouth 3 it y of 13:51: (three) [place] 23 times Medical daily as Branch needed. clonazePAM 2023-0 Yes [id number] 1mg Take 1 mg Univers 1 mg tablet 1-10 by mouth 3 it y of 13:51: (three) [place] 23 times Medical daily as Branch needed. clonazePAM 2023-0 Yes [id number] 1mg Take 1 mg Univers 1 mg tablet 1-10 by mouth 3 it y of 13:51: (three) [place] 23 times Medical daily as Branch needed. clonazePAM 3-0 Yes [id number] 1mg Take 1 mg Univers 1 mg tablet 1-10 by mouth 3 it y of 13:51: (three) [place] 23 times Medical daily as Branch needed. lithium 3-0 Yes [id number] 150mg Take 0.5 Univers carbonate 1-10 tablets by ity of 300 mg 00:00: mouth in [place] tablet 00 the Medical morning. Branch QUEtiapine 3-0 Yes [id number] 50mg Take 1 Univers 50 mg 1-10 tablet by ity of tablet 00:00: mouth at [place] 00 bedtime as Medical needed for Branch Insomnia. gabapentin 3-0 Yes [id number] 600mg Take 2 Univers 300 mg 1-10 9102 capsules ity of capsule 00:00: by mouth [place] 00 in the Medical morning Branch and 2 capsules at noon and 2 capsules in the evening. hydrOXYzine 2023-0 Yes [id number] 25mg Take 1 Univers 25 mg 1-10 tablet by ity of tablet 00:00: mouth [place] 00 every 6 Medical (six) Branch hours as needed for Anxiety. lithium 2023-0 Yes [id number] 150mg Take 0.5 Univers carbonate 1-10 tablets by ity of 300 mg 00:00: mouth in [place] tablet 00 the Medical morning. Branch QUEtiapine 2023-0 Yes [id number] 50mg Take 1 Univers 50 mg 1-10 tablet by ity of tablet 00:00: mouth at [place] 00 bedtime as Medical needed for Branch Insomnia. gabapentin 2023-0 Yes [id number] 600mg Take 2 Univers 300 mg 1-10 9102 capsules ity of capsule 00:00: by mouth [place] 00 in the Medical morning Branch and 2 capsules at noon and 2 capsules in the evening. hydrOXYzine 2023-0 Yes [id number] 25mg Take 1 Univers 25 mg 1-10 tablet by ity of tablet 00:00: mouth [place] 00 every 6 Medical (six) Branch hours as needed for Anxiety. lithium 2023-0 Yes [id number] 150mg Take 0.5 Univers carbonate 1-10 tablets by ity of 300 mg 00:00: mouth in [place] tablet 00 the Medical morning. Branch QUEtiapine 2023-0 Yes [id number] 50mg Take 1 Univers 50 mg 1-10 tablet by ity of tablet 00:00: mouth at [place] 00 bedtime as Medical needed for Branch Insomnia. gabapentin 2023-0 Yes [id number] 600mg Take 2 Univers 300 mg 1-10 9102 capsules ity of capsule 00:00: by mouth [place] 00 in the Medical morning Branch and 2 capsules at noon and 2 capsules in the evening. hydrOXYzine 2023-0 Yes [id number] 25mg Take 1 Univers 25 mg 1-10 tablet by ity of tablet 00:00: mouth [place] 00 every 6 Medical (six) Branch hours as needed for Anxiety. lithium 2023-0 Yes [id number] 150mg Take 0.5 Univers carbonate 1-10 tablets by ity of 300 mg 00:00: mouth in [place] tablet 00 the Medical morning. Branch QUEtiapine 2023-0 Yes [id number] 50mg Take 1 Univers 50 mg 1-10 tablet by ity of tablet 00:00: mouth at [place] 00 bedtime as Medical needed for Branch Insomnia. gabapentin 2023-0 Yes [id number] 600mg Take 2 Univers 300 mg 1-10 9102 capsules ity of capsule 00:00: by mouth [place] 00 in the Medical morning Branch and 2 capsules at noon and 2 capsules in the evening. hydrOXYzine 2023-0 Yes [id number] 25mg Take 1 Univers 25 mg 1-10 tablet by ity of tablet 00:00: mouth [place] 00 every 6 Medical (six) Branch hours as needed for Anxiety. lithium 2023-0 Yes [id number] 150mg Take 0.5 Univers carbonate 1-10 tablets by ity of 300 mg 00:00: mouth in [place] tablet 00 the Medical morning. Branch QUEtiapine 2023-0 Yes [id number] 50mg Take 1 Univers 50 mg 1-10 tablet by ity of tablet 00:00: mouth at [place] 00 bedtime as Medical needed for Branch Insomnia. gabapentin 2023-0 Yes [id number] 600mg Take 2 Univers 300 mg 1-10 9102 capsules ity of capsule 00:00: by mouth [place] 00 in the Medical morning Branch and 2 capsules at noon and 2 capsules in the evening. hydrOXYzine 2023-0 Yes [id number] 25mg Take 1 Univers 25 mg 1-10 tablet by ity of tablet 00:00: mouth [place] 00 every 6 Medical (six) Branch hours as needed for Anxiety. lithium 2023-0 Yes [id number] 150mg Take 0.5 Univers carbonate 1-10 tablets by ity of 300 mg 00:00: mouth in [place] tablet 00 the Medical morning. Branch QUEtiapine 3-0 Yes [id number] 50mg Take 1 Univers 50 mg 1-10 tablet by ity of tablet 00:00: mouth at [place] 00 bedtime as Medical needed for Branch Insomnia. gabapentin 3-0 Yes [id number] 600mg Take 2 Univers 300 mg 1-10 9102 capsules ity of capsule 00:00: by mouth [place] 00 in the Medical morning Branch and 2 capsules at noon and 2 capsules in the evening. hydrOXYzine 2023-0 Yes [id number] 25mg Take 1 Univers 25 mg 1-10 tablet by ity of tablet 00:00: mouth [place] 00 every 6 Medical (six) Branch hours as needed for Anxiety. lithium 2023-0 Yes [id number] 150mg Take 0.5 Univers carbonate 1-10 tablets by ity of 300 mg 00:00: mouth in [place] tablet 00 the Medical morning. Branch QUEtiapine 2023-0 Yes [id number] 50mg Take 1 Univers 50 mg 1-10 tablet by ity of tablet 00:00: mouth at [place] 00 bedtime as Medical needed for Branch Insomnia. gabapentin 2023-0 Yes [id number] 600mg Take 2 Univers 300 mg 1-10 9102 capsules ity of capsule 00:00: by mouth [place] 00 in the Medical morning Branch and 2 capsules at noon and 2 capsules in the evening. hydrOXYzine 2023-0 Yes [id number] 25mg Take 1 Univers 25 mg 1-10 tablet by ity of tablet 00:00: mouth [place] 00 every 6 Medical (six) Branch hours as needed for Anxiety. lithium 2023-0 Yes [id number] 150mg Take 0.5 Univers carbonate 1-10 tablets by ity of 300 mg 00:00: mouth in [place] tablet 00 the Medical morning. Branch QUEtiapine 2023-0 Yes [id number] 50mg Take 1 Univers 50 mg 1-10 tablet by ity of tablet 00:00: mouth at [place] 00 bedtime as Medical needed for Branch Insomnia. gabapentin 2023-0 Yes [id number] 600mg Take 2 Univers 300 mg 1-10 9102 capsules ity of capsule 00:00: by mouth [place] 00 in the Medical morning Branch and 2 capsules at noon and 2 capsules in the evening. hydrOXYzine 2023-0 Yes [id number] 25mg Take 1 [facility] 25 mg 1-10 tablet by [facility] of tablet 00:00: mouth [place] 00 every 6 Medical (six) Branch hours as needed for Anxiety. lithium 2023-0 Yes [id number] 150mg Take 0.5 [facility] carbonate 1-10 tablets by ity of 300 mg 00:00: mouth in [place] tablet 00 the Medical morning. Branch QUEtiapine 3-0 Yes [id number] 50mg Take 1 [facility] 50 mg 1-10 tablet by ity of tablet 00:00: mouth at [place] 00 bedtime as Medical needed for Branch Insomnia. gabapentin 3-0 Yes [id number] 600mg Take 2 [facility] 300 mg 1-10 9102 capsules ity of capsule 00:00: by mouth [place] 00 in the Medical morning Branch and 2 capsules at noon and 2 capsules in the evening. hydrOXYzine 2023-0 Yes [id number] 25mg Take 1 [facility] 25 mg 1-10 tablet by ity of tablet 00:00: mouth [place] 00 every 6 Medical (six) Branch hours as needed for Anxiety. lithium 2023-0 Yes [id number] 150mg Take 0.5 [facility] carbonate 1-10 tablets by ity of 300 mg 00:00: mouth in [place] tablet 00 the Medical morning. Branch QUEtiapine 2023-0 Yes [id number] 50mg Take 1 [facility] 50 mg 1-10 tablet by ity of tablet 00:00: mouth at [place] 00 bedtime as Medical needed for Branch Insomnia. gabapentin 2023-0 Yes [id number] 600mg Take 2 [facility] 300 mg 1-10 9102 capsules ity of capsule 00:00: by mouth [place] 00 in the Medical morning Branch and 2 capsules at noon and 2 capsules in the evening. hydrOXYzine 2023-0 Yes [id number] 25mg Take 1 [facility] 25 mg 1-10 tablet by ity of tablet 00:00: mouth [place] 00 every 6 Medical (six) Branch hours as needed for Anxiety. lithium 2023-0 Yes [id number] 150mg Take 0.5 [facility] carbonate 1-10 tablets by ity of 300 mg 00:00: mouth in [place] tablet 00 the Medical morning. Branch QUEtiapine 2023-0 Yes [id number] 50mg Take 1 [facility] 50 mg 1-10 tablet by ity of tablet 00:00: mouth at [place] 00 bedtime as Medical needed for Branch Insomnia. gabapentin 2023-0 Yes [id number] 600mg Take 2 [facility] 300 mg 1-10 9102 capsules ity of capsule 00:00: by mouth [place] 00 in the Medical morning Branch and 2 capsules at noon and 2 capsules in the evening. hydrOXYzine 2023-0 Yes [id number] 25mg Take 1 [facility] 25 mg 1-10 tablet by ity of tablet 00:00: mouth [place] 00 every 6 Medical (six) Branch hours as needed for Anxiety. lithium 2023-0 Yes [id number] 150mg Take 0.5 [facility] carbonate 1-10 tablets by ity of 300 mg 00:00: mouth in [place] tablet 00 the Medical morning. Branch QUEtiapine 2023-0 Yes [id number] 50mg Take 1 [facility] 50 mg 1-10 tablet by ity of tablet 00:00: mouth at [place] 00 bedtime as Medical needed for Branch Insomnia. gabapentin 2023-0 Yes [id number] 600mg Take 2 [facility] 300 mg 1-10 9102 capsules ity of capsule 00:00: by mouth [place] 00 in the Medical morning Branch and 2 capsules at noon and 2 capsules in the evening. hydrOXYzine 2023-0 Yes [id number] 25mg Take 1 [facility] 25 mg 1-10 tablet by ity of tablet 00:00: mouth [place] 00 every 6 Medical (six) Branch hours as needed for Anxiety. lithium 2023-0 Yes [id number] 150mg Take 0.5 [facility] carbonate 1-10 tablets by ity of 300 mg 00:00: mouth in [place] tablet 00 the Medical morning. Branch QUEtiapine 2023-0 Yes [id number] 50mg Take 1 [facility] 50 mg 1-10 tablet by ity of tablet 00:00: mouth at [place] 00 bedtime as Medical needed for Branch Insomnia. gabapentin 2023-0 Yes [id number] 600mg Take 2 [facility] 300 mg 1-10 9102 capsules ity of capsule 00:00: by mouth [place] 00 in the Medical morning Branch and 2 capsules at noon and 2 capsules in the evening. hydrOXYzine 2023-0 Yes [id number] 25mg Take 1 [facility] 25 mg 1-10 tablet by ity of tablet 00:00: mouth [place] 00 every 6 Medical (six) Branch hours as needed for Anxiety. lithium 2023-0 Yes [id number] 150mg Take 0.5 [facility] carbonate 1-10 tablets by ity of 300 mg 00:00: mouth in [place] tablet 00 the Medical morning. Branch QUEtiapine 3-0 Yes [id number] 50mg Take 1 [facility] 50 mg 1-10 tablet by ity of tablet 00:00: mouth at [place] 00 bedtime as Medical needed for Branch Insomnia. gabapentin 3-0 Yes [id number] 600mg Take 2 [facility] 300 mg 1-10 9102 capsules ity of capsule 00:00: by mouth [place] 00 in the Medical morning Branch and 2 capsules at noon and 2 capsules in the evening. hydrOXYzine 2023-0 Yes [id number] 25mg Take 1 [facility] 25 mg 1-10 tablet by ity of tablet 00:00: mouth [place] 00 every 6 Medical (six) Branch hours as needed for Anxiety. lithium 2023-0 Yes [id number] 150mg Take 0.5 [facility] carbonate 1-10 tablets by ity of 300 mg 00:00: mouth in [place] tablet 00 the Medical morning. Branch QUEtiapine 2023-0 Yes [id number] 50mg Take 1 [facility] 50 mg 1-10 tablet by ity of tablet 00:00: mouth at [place] 00 bedtime as Medical needed for Branch Insomnia. gabapentin 2023-0 Yes [id number] 600mg Take 2 [facility] 300 mg 1-10 9102 capsules ity of capsule 00:00: by mouth [place] 00 in the Medical morning Branch and 2 capsules at noon and 2 capsules in the evening. hydrOXYzine 2023-0 Yes [id number] 25mg Take 1 [facility] 25 mg 1-10 tablet by ity of tablet 00:00: mouth [place] 00 every 6 Medical (six) Branch hours as needed for Anxiety. lithium 2023-0 Yes [id number] 150mg Take 0.5 [facility] carbonate 1-10 tablets by ity of 300 mg 00:00: mouth in [place] tablet 00 the Medical morning. Branch QUEtiapine 2023-0 Yes [id number] 50mg Take 1 [facility] 50 mg 1-10 tablet by ity of tablet 00:00: mouth at [place] 00 bedtime as Medical needed for Branch Insomnia. gabapentin 2022-0 Yes [id number] 600mg Take 2 [facility] 300 mg 1-10 9102 capsules ity of capsule 00:00: by mouth [place] 00 in the Medical morning Branch and 2 capsules at noon and 2 capsules in the evening. hydrOXYzine 2023-0 Yes [id number] 25mg Take 1 [facility] 25 mg 1-10 tablet by ity of tablet 00:00: mouth [place] 00 every 6 Medical (six) Branch hours as needed for Anxiety. lithium 3-0 Yes [id number] 150mg Take 0.5 [facility] carbonate 1-10 tablets by ity of 300 mg 00:00: mouth in [place] tablet 00 the Medical morning. Branch QUEtiapine 3-0 Yes [id number] 50mg Take 1 [facility] 50 mg 1-10 tablet by ity of tablet 00:00: mouth at [place] 00 bedtime as Medical needed for Branch Insomnia. gabapentin 3-0 Yes [id number] 600mg Take 2 [facility] 300 mg 1-10 9102 capsules ity of capsule 00:00: by mouth [place] 00 in the Medical morning Branch and 2 capsules at noon and 2 capsules in the evening. hydrOXYzine 2023-0 Yes [id number] 25mg Take 1 [facility] 25 mg 1-10 tablet by ity of tablet 00:00: mouth [place] 00 every 6 Medical (six) Branch hours as needed for Anxiety. lithium 2023-0 Yes [id number] 150mg Take 0.5 [facility] carbonate 1-10 tablets by ity of 300 mg 00:00: mouth in [place] tablet 00 the Medical morning. Branch QUEtiapine 2023-0 Yes [id number] 50mg Take 1 [facility] 50 mg 1-10 tablet by ity of tablet 00:00: mouth at [place] 00 bedtime as Medical needed for Branch Insomnia. gabapentin 2023-0 Yes [id number] 600mg Take 2 [facility] 300 mg 1-10 9102 capsules ity of capsule 00:00: by mouth [place] 00 in the Medical morning Branch and 2 capsules at noon and 2 capsules in the evening. hydrOXYzine 2022-0 Yes [id number] 25mg Take 1 [facility] 25 mg 1-10 tablet by ity of tablet 00:00: mouth [place] 00 every 6 Medical (six) Branch hours as needed for Anxiety. lithium 2022-0 Yes [id number] 150mg Take 0.5 [facility] carbonate 1-10 tablets by ity of 300 mg 00:00: mouth in [place] tablet 00 the Medical morning. Branch QUEtiapine 2022-0 Yes [id number] 50mg Take 1 [facility] 50 mg 1-10 tablet by ity of tablet 00:00: mouth at [place] 00 bedtime as Medical needed for Branch Insomnia. gabapentin 2022-0 Yes [id number] 600mg Take 2 [facility] 300 mg 1-10 9102 capsules ity of capsule 00:00: by mouth [place] 00 in the Medical morning Branch and 2 capsules at noon and 2 capsules in the evening. hydrOXYzine 2022-0 Yes [id number] 25mg Take 1 [facility] 25 mg 1-10 tablet by ity of tablet 00:00: mouth [place] 00 every 6 Medical (six) Branch hours as needed for Anxiety. methocarbam 2022-0 2022- No [id number] 750mg Take 1 [facility] oL 750 mg 1-10 - 9102 tablet by ity of tablet 00:00: 05:59 mouth 4 [place] 00 :00 (four) Medical times [place] daily for 30 days. methocarbam 2022-0 2022- No [id number] 750mg Take 1 [facility] oL 750 mg 1-10 - 9102 tablet by ity of tablet 00:00: 05:59 mouth 4 [place] 00 :00 ([facility]) Medical times [place] daily for 30 days. methocarbam 2022-0 2022- No [id number] 750mg Take 1 [facility] oL 750 mg 1-10 -10 9102 tablet by ity of tablet 00:00: 05:59 mouth 4 [place] 00 :00 (four) Medical times [place] daily for 30 days. methocarbam 2022-0 2022- No [id number] 750mg Take 1 [facility] oL 750 mg 1-10 - 9102 tablet by ity of tablet 00:00: 05:59 mouth 4 [place] 00 :00 (four) Medical times [place] daily for 30 days. methocarbam 2022- No [id number] 750mg Take 1 [facility] oL 750 mg 04-2502 tablet by ity of tablet 00:00: 05:59 mouth 4 [place] 00 :00 ([facility]) Medical times [place] daily for 30 days. methocarbam 2022- No [id number] 750mg Take 1 [facility] oL 750 mg 04-2502 tablet by ity of tablet 00:00: 05:59 mouth 4 [place] 00 :00 ([facility]) Medical times [place] daily for 30 days. methocarbam 2022- No [id number] 750mg Take 1 [facility] oL 750 mg 04-2502 tablet by ity of tablet 00:00: 05:59 mouth 4 [place] 00 :00 ([facility] times [place] daily for 30 days. methocarbam 2022- No [id number] 750mg Take 1 [facility] oL 750 mg 04-25 tablet by ity of tablet 00:00: 05:59 mouth 4 [place] 00 :00 ([facility] times [place] daily for 30 days. MONTELUKAST 2021-04 No 10 SODIUM 10 2-22 MG TABS 00:00: 00 BUSPIRONE 2021-04 No HCL 15 MG 2-21 TABS 00:00: 00 TAKE 2021-04 No TABLET 2-14 EVERY 4 00:00: HOURS 00 NEEDED. TAKE 5 ML 2021-04 No EVERY 4 TO 2-14 6 HOURS 00:00: NEEDED. 00 INHALE TO 2021-04 No 2 PUFFS 2-14 EVERY [...] 750 MG 2-14 TABS 00:00: 00 TAKE 1 2021-04 No 50 TABLET BY 2-14 MOUTH [...] MCG 00:00: TABS 00 amphetamine 2021-04 Yes [id number] 30mg Take 30 mg [facility] -dextroamph 0-20 by mouth ity of etamine 30 00:00: in the [place] mg 24 hr 00 morning Medical capsule and 30 mg Branch in the evening. amphetamine 2021-04 Yes [id number] 30mg Take 30 mg [facility] -dextroamph 0-20 by mouth ity of etamine 30 00:00: in the [place] mg 24 hr 00 morning Medical capsule and 30 mg Branch in the evening. amphetamine 2021-04 Yes [id number] 30mg Take 30 mg [facility] -dextroamph 0-20 by mouth ity of etamine 30 00:00: in the [place] mg 24 hr 00 morning Medical capsule and 30 mg Branch in the evening. amphetamine 2021- Yes [id number] 30mg Take 30 mg [facility] -dextroamph 0-20 by mouth ity of etamine 30 00:00: in the [place] mg 24 hr 00 morning Medical capsule and 30 mg Branch in the evening. amphetamine 2021-1 Yes [id number] 30mg Take 30 mg [facility] -dextroamph 0-20 by mouth ity of etamine 30 00:00: in the [place] mg 24 hr 00 morning Medical capsule and 30 mg Branch in the evening. amphetamine 2021- Yes [id number] 30mg Take 30 mg [facility] -dextroamph 0-20 by mouth ity of etamine 30 00:00: in the [place] mg 24 hr 00 morning Medical capsule and 30 mg Branch in the evening. amphetamine 2021-1 Yes [id number] 30mg Take 30 mg [facility] -dextroamph 0-20 by mouth ity of etamine 30 00:00: in the [place] mg 24 hr 00 morning Medical capsule and 30 mg Branch in the evening. amphetamine 2021-1 Yes [id number] 30mg Take 30 mg [facility] -dextroamph 0-20 by mouth ity of etamine 30 00:00: in the [place] mg 24 hr 00 morning Medical capsule and 30 mg Branch in the evening. amphetamine 2021-1 Yes [id number] 30mg Take 30 mg [facility] -dextroamph 0-20 by mouth ity of etamine 30 00:00: in the [place] mg 24 hr 00 morning Medical capsule and 30 mg Branch in the evening. amphetamine 2021-1 Yes [id number] 30mg Take 30 mg [facility] -dextroamph 0-20 by mouth ity of etamine 30 00:00: in the [place] mg 24 hr 00 morning Medical capsule and 30 mg Branch in the evening. amphetamine 2021-1 Yes [id number] 30mg Take 30 mg [facility] -dextroamph 0-20 by mouth ity of etamine 30 00:00: in the [place] mg 24 hr 00 morning Medical capsule and 30 mg Branch in the evening. amphetamine 2021-1 Yes [id number] 30mg Take 30 mg [facility] -dextroamph 0-20 by mouth ity of etamine 30 00:00: in the [place] mg 24 hr 00 morning Medical capsule and 30 mg Branch in the evening. amphetamine 2021-1 Yes [id number] 30mg Take 30 mg [facility] -dextroamph 0-20 by mouth ity of etamine 30 00:00: in the [place] mg 24 hr 00 morning Medical capsule and 30 mg Branch in the evening. amphetamine 2021-04 Yes [id number] 30mg Take 30 mg [facility] -dextroamph 0-20 by mouth ity of etamine 30 00:00: in the [place] mg 24 hr 00 morning Medical capsule and 30 mg Branch in the evening. amphetamine 2021-04 Yes [id number] 30mg Take 30 mg [facility] -dextroamph 0-20 by mouth ity of etamine 30 00:00: in the [place] mg 24 hr 00 morning Medical capsule and 30 mg Branch in the evening. amphetamine 2021-04 Yes [id number] 30mg Take 30 mg [facility] -dextroamph 0-20 by mouth ity of etamine 30 00:00: in the [place] mg 24 hr 00 morning Medical capsule and 30 mg Branch in the evening. amphetamine 2021-04 Yes [id number] 30mg Take 30 mg [facility] -dextroamph 0-20 by mouth ity of etamine 30 00:00: in the [place] mg 24 hr 00 morning Medical capsule and 30 mg Branch in the evening. amphetamine 2021-04 Yes [id number] 30mg Take 30 mg [facility] -dextroamph 0-20 by mouth ity of etamine 30 00:00: in the [place] mg 24 hr 00 morning Medical capsule and 30 mg Branch in the evening. amphetamine 2021-04 Yes [id number] 30mg Take 30 mg [facility] -dextroamph 0-20 [...] 0-19 01-10 ity of tablet 00:00: 00:00 [place] 00 :00 Medical Branch methocarbam 2021-04- No Unive rs oL 750 mg 0-19 -10 ity of tablet 00:00: 00:00 [place] 00 :00 Medical Branch methocarbam 2021-2022- No Unive rs oL 750 mg 0-19 -10 ity of tablet 00:00: 00:00 [place] 00 :00 Medical Branch methocarbam 2021-04- No Unive rs oL 750 mg 0-19 -10 ity of tablet 00:00: 00:00 [place] 00 :00 Medical Branch methocarbam 2021-2022- No Unive rs oL 750 mg 0-19 -10 ity of tablet 00:00: 00:00 [place] 00 :00 Medical Branch methocarbam 2021-2022- No Unive rs oL 750 mg 019 -10 ity of tablet 00:00: 00:00 [place] 00 :00 Medical Branch SYMBICORT 2021-04 Yes INHALE 2 Univ ers 160-4.5 0-14 PUFFS ity of mcg/actuati 00:00: TWICE [place] on inhaler 00 DAILY. Medical RINSE Branch MOUTH AFTER USE. SYMBICORT 2021-04 Yes INHALE 2 Univ ers 160-4.5 0-14 PUFFS ity of mcg/actuati 00:00: TWICE [place] on inhaler 00 DAILY. Medical RINSE Branch [...] 00:00 [place] 00 :00 Medical Branch gabapentin 2022-2022- No Univer s 300 mg 0-14 -10 ity of capsule 00:00: 00:00 [place] 00 :00 Medical Branch gabapentin 2021-2022- No Univer s 300 mg 0-14 - ity of capsule 00:00: 00:00 [place] 00 :00 Medical Branch gabapentin 2021-2022- No Univer s 300 mg 0-14 -10 ity of capsule 00:00: 00:00 [place] 00 :00 Medical Branch PROAIR HFA 2021- [...] 2-0 No Unknown 01-07 00:00: 00 Dose 2021-0 No Unknown 01-07 00:00: 00 OMEPRAZOLE 2-0 [...] DAY 00 (RINSE MOUTH AFTER USE) PANTOPRAZOL 2022-0 No 40 E SODIUM 40 [...] MOUTH EVERY 00:00: DAY 00 TAKE 1 TAB 2022-0 No 10 [...] 00:00: DAY 00 &lt 2022-0 No 400 11-25 00:00: 00 TAKE 1 2022-0 No 5 TABLET BY 8-12 MOUTH EVERY 00:00: DAY 00 Dose 2022-0 No Unknown 11-25 00:00: 00 Dose 2022-0 No Unknown 11-25 00:00: 00 TAKE 1 2022-0 No 1unit CAPSULE 8-12 TWICE 00:00: DAILY. 00 &lt 2022-0 No 400 8 00:00: [...] 8-12 00:00: 00 TAKE 1 2022-0 No 20 [...] DAY 00 Dose 2022-0 No 20 Unknown 8- 00:00: 00 TAKE 1 2022-0 No 400 [...] TAKE 1 2022-0 No 30 TABLET BY 8 MOUTH TWICE [...] TAKE 1 2-0 No 400 CAPSULE BY 804 MOUTH TWICE 00:00: A DAY FOR 00 [...] No 300 Unknown 11-15 00:00: 00 budesonide- 2022-0 No 2mcg/ac formoterol 7- tuation HFA 160 [...] cyclobenzap 2021-0 No 1mg rine 5 mg -31 tablet 00:00: 00 &lt 2-0 No 300 [...] tablet 00:00: 00 &lt 2022-0 No 300 7 00:00: 00 &lt 2022-0 No 300 7 00:00: 00 &lt 2022-0 No 300 7 00:00: 00 &lt 2022-0 No 300 7 00:00: 00 &lt 2022-0 No 300 7 00:00: 00 &lt 2022-0 No 300 11-11 00:00: 00 &lt 2022-0 No 300 11-11 00:00: 00 &lt 2022-0 No 300 11-11 00:00: 00 &lt 2022-0 No 300 11-11 [...] 00 TAKE 1 2-0 No 30 CAPSULE 7- EVERY DAY 00:00: [...] 1mg 1 mg tablet 4-08 00:00: 00 Vyvbeee 40 2-0 No 1mg mg capsule 4-08 [...] 2021-1 No Unknown 2-31 00:00: 00 cyclobenzap 2021-1 No 1mg rine 7.5 mg 2-31 tablet 00:00: 00 Dose 2020-1 No Unknown 2-31 00:00: 00 Dose 2020-1 No Unknown 2-31 00:00: 00 Dose 2020-1 No Unknown 2-31 00:00: 00 Dose 2020-1 No Unknown 2-31 00:00: 00 Dose 2020-1 No Unknown 2-31 00:00: 00 Dose 2020-1 No Unknown 2-31 00:00: 00 Dose 2020- [...] 2020-1 No Unknown 2-07 00:00: 00 Dose 2020- No Unknown 2-07 [...] 2020- No Unknown 1-12 00:00: 00 Dose 2020-04 [...] Dose 2020-1 No Unknown 1-08 00:00: 00 Dose 2020-1 [...] 3mg mg capsule 0-11 00:00: 00 lithium 2021-1 No 1mg carbonate 0-11 300 mg 00:00: [...] 2020-1 No Unknown 0-06 00:00: 00 Symbicort 2020- [...] 9-16 00:00: 00 Dose 1-0 No Unknown 12-30 00:00: 00 Dose 1-0 No Unknown 9 00:00: 00 Dose 1-0 No Unknown 9 00:00: 00 Dose 1-0 No Unknown 9 00:00: 00 Dose 1-0 No Unknown 916 00:00: 00 Dose 1-0 No Unknown 16 00:00: 00 Dose 1-0 No Unknown 9 00:00: 00 Dose 1-0 No Unknown 9 00:00: 00 Dose 1-0 No Unknown 12-30 00:00: 00 Dose 1-0 No Unknown 9 [...] 1-0 No Unknown 16 00:00: 00 Dose 2021-0 No Unknown 9-16 [...] 916 00:00: 00 Dose 2021-0 No Unknown 9- 00:00: 00 Dose 2021-0 No Unknown 9-13 [...] 00 Seroquel 2020-0 No 1mg 400 mg 5- tablet 00:00: 00 Prozac 20 2020-0 No 3mg mg capsule 09-08 00:00: 00 lithium 2020-0 No 1mg carbonate 5-26 300 mg 00:00: [...] 00 Seroquel 2020-0 No 1mg 400 mg 5- tablet 00:00: [...] 00:00: 00 lithium 2020-0 No 1mg carbonate 5-26 300 mg 00:00: capsule 00 buspirone 5 2020-0 No 1mg mg tablet 09-08 00:00: 00 Seroquel 2020-0 No 1mg 400 mg 5- tablet 00:00: [...] Prozac 20 1-0 No 3mg mg capsule 09-05 00:00: 00 lithium 2021-0 No 1mg carbonate [...] 150 mcg 5-20 tablet 00:00: 00 Dose 1-0 No Unknown 5-20 00:00: 00 lisinopril 2021-0 [...] 300 mg 5-20 capsule 00:00: 00 Dose 2020-0 No Unknown 5-20 00:00: 00 phenytoin 2020-0 [...] 5-20 tablet 00:00: 00 FLUTICASONE 2019-04 Yes [id number] SHAKE U nivers PROPIONATE 0-15 LIQUID AND ity of 50 00:00: USE 2 [place] mcg/actuati 00 SPRAYS IN Med ical on nasal EACH Branch spray NOSTRIL DAILY FLUTICASONE 2019-04 Yes [id number] SHAKE U nivers PROPIONATE 0-15 LIQUID AND ity of 50 00:00: USE 2 [place] mcg/actuati 00 SPRAYS IN Med ical on nasal EACH Branch spray NOSTRIL DAILY FLUTICASONE 2019-04 Yes [id number] SHAKE U nivers PROPIONATE 0-15 LIQUID AND ity of 50 00:00: USE 2 [place] mcg/actuati 00 SPRAYS IN Med ical on nasal EACH Branch spray NOSTRIL DAILY FLUTICASONE 2019-04 Yes [id number] SHAKE U nivers PROPIONATE 0-15 LIQUID AND ity of 50 00:00: USE 2 [place] mcg/actuati 00 SPRAYS IN Med ical on nasal EACH Branch spray NOSTRIL DAILY FLUTICASONE 2019-04 Yes [id number] SHAKE U nivers PROPIONATE 0-15 LIQUID AND ity of 50 00:00: USE 2 [place] mcg/actuati 00 SPRAYS IN Med ical on nasal EACH Branch spray NOSTRIL DAILY FLUTICASONE 2019-04 Yes [id number] SHAKE U nivers PROPIONATE 0-15 LIQUID AND ity of 50 00:00: USE 2 [place] mcg/actuati 00 SPRAYS IN Med ical on nasal EACH Branch spray NOSTRIL DAILY FLUTICASONE 2019- Yes [id number] SHAKE U nivers PROPIONATE 0-15 LIQUID AND ity of 50 00:00: USE 2 [place] mcg/actuati 00 SPRAYS IN Med ical on nasal EACH Branch spray NOSTRIL DAILY FLUTICASONE 2019-04 Yes [id number] SHAKE U nivers PROPIONATE 0-15 LIQUID AND ity of 50 00:00: USE 2 [place] mcg/actuati 00 SPRAYS IN Med ical on nasal EACH Branch spray NOSTRIL DAILY FLUTICASONE 2019-04 Yes [id number] SHAKE U nivers PROPIONATE 0-15 LIQUID AND ity of 50 00:00: USE 2 [place] mcg/actuati 00 SPRAYS IN Med ical on nasal EACH Branch spray NOSTRIL DAILY FLUTICASONE 2019-04 Yes [id number] SHAKE U nivers PROPIONATE 0-15 LIQUID AND ity of 50 00:00: USE 2 [place] mcg/actuati 00 SPRAYS IN Med ical on nasal EACH Branch spray NOSTRIL DAILY FLUTICASONE 2019-04 Yes [id number] SHAKE U nivers PROPIONATE 0-15 LIQUID AND ity of 50 00:00: USE 2 [place] mcg/actuati 00 SPRAYS IN Med ical on nasal EACH Branch spray NOSTRIL DAILY FLUTICASONE 2019-04 Yes [id number] SHAKE U nivers PROPIONATE 0-15 LIQUID AND ity of 50 00:00: USE 2 [place] mcg/actuati 00 SPRAYS IN Med ical on nasal EACH Branch spray NOSTRIL DAILY FLUTICASONE 2019-04 Yes [id number] SHAKE U nivers PROPIONATE 0-15 LIQUID AND ity of 50 00:00: USE 2 [place] mcg/actuati 00 SPRAYS IN Med ical on nasal EACH Branch spray NOSTRIL DAILY FLUTICASONE 2019-04 Yes [id number] SHAKE U nivers PROPIONATE 0-15 LIQUID AND ity of 50 00:00: USE 2 [place] mcg/actuati 00 SPRAYS IN Med ical on nasal EACH Branch spray NOSTRIL DAILY FLUTICASONE 2019-04 Yes [id number] SHAKE U nivers PROPIONATE 0-15 LIQUID AND ity of 50 00:00: USE 2 [place] mcg/actuati 00 SPRAYS IN Med ical on nasal EACH Branch spray NOSTRIL DAILY FLUTICASONE 2019-04 Yes [id number] SHAKE U nivers PROPIONATE 0-15 LIQUID AND ity of 50 00:00: USE 2 [place] mcg/actuati 00 SPRAYS IN Med ical on nasal EACH Branch spray NOSTRIL DAILY FLUTICASONE 2019-04 Yes [id number] SHAKE U nivers PROPIONATE 0-15 LIQUID AND ity of 50 00:00: USE 2 [place] mcg/actuati 00 SPRAYS IN Med ical on nasal EACH Branch spray NOSTRIL DAILY FLUTICASONE 2019-04 Yes [id number] SHAKE U nivers PROPIONATE 0-15 LIQUID AND ity of 50 00:00: USE 2 [place] mcg/actuati 00 SPRAYS IN Med ical on nasal EACH Branch spray NOSTRIL DAILY FLUTICASONE 2019-04 Yes [id number] SHAKE U nivers PROPIONATE 0-15 LIQUID AND ity of 50 00:00: USE 2 [place] mcg/actuati 00 SPRAYS IN Med ical on nasal EACH Branch spray NOSTRIL DAILY FLUTICASONE 2019-04 Yes [id number] SHAKE U nivers PROPIONATE 0-15 LIQUID AND ity of 50 00:00: USE 2 [place] mcg/actuati 00 SPRAYS IN Med ical on nasal EACH Branch spray NOSTRIL DAILY FLUTICASONE 2019-04 Yes [id number] SHAKE U nivers PROPIONATE 0-15 LIQUID AND ity of 50 00:00: USE 2 [place] mcg/actuati 00 SPRAYS IN Med ical on nasal EACH Branch spray NOSTRIL DAILY FLUTICASONE 2019-04 Yes [id number] SHAKE U nivers PROPIONATE 0-15 LIQUID AND ity of 50 00:00: USE 2 [place] mcg/actuati 00 SPRAYS IN Med ical on nasal EACH Branch spray NOSTRIL DAILY FLUTICASONE 2019-04 Yes [id number] SHAKE U nivers PROPIONATE 0-15 LIQUID AND ity of 50 00:00: USE 2 [place] mcg/actuati 00 SPRAYS IN Med ical on nasal EACH Branch spray NOSTRIL DAILY doxycycline Yes [id number] 100mg Take 1 [facility] monohydrate 8-20 capsule by it y of 100 mg 00:00: mouth 2 [place] capsule 00 (two) Medical times Branch daily. doxycycline Yes [id number] 100mg Take 1 [facility] monohydrate 8-20 capsule by it y of 100 mg 00:00: mouth 2 [place] capsule 00 (two) Medical times Branch daily. doxycycline 2020-0 Yes [id number] 100mg Take 1 [facility] monohydrate 8-20 capsule by it y of 100 mg 00:00: mouth 2 [place] capsule 00 (two) Medical times Branch daily. doxycycline 2020-0 Yes [id number] 100mg Take 1 [facility] monohydrate 8-20 capsule by it y of 100 mg 00:00: mouth 2 [place] capsule 00 (two) Medical times Branch daily. doxycycline 2020-0 Yes [id number] 100mg Take 1 [facility] monohydrate 8-20 capsule by it y of 100 mg 00:00: mouth 2 [place] capsule 00 (two) Medical times Branch daily. doxycycline 2020-0 Yes [id number] 100mg Take 1 [facility] monohydrate 8-20 capsule by it y of 100 mg 00:00: mouth 2 [place] capsule 00 (two) Medical times Branch daily. doxycycline 2020-0 Yes [id number] 100mg Take 1 [facility] monohydrate 8-20 capsule by it y of 100 mg 00:00: mouth 2 [place] capsule 00 (two) Medical times Branch daily. doxycycline 2020-0 Yes [id number] 100mg Take 1 [facility] monohydrate 8-20 capsule by it y of 100 mg 00:00: mouth 2 [place] capsule 00 (two) Medical times Branch daily. doxycycline 2020-0 Yes [id number] 100mg Take 1 [facility] monohydrate 8-20 capsule by it y of 100 mg 00:00: mouth 2 [place] capsule 00 (two) Medical times Branch daily. doxycycline 2020-0 Yes [id number] 100mg Take 1 [facility] monohydrate 8-20 capsule by it y of 100 mg 00:00: mouth 2 [place] capsule 00 (two) Medical times Branch daily. doxycycline 2020-0 2023- No [id number] 100mg Take 1 [facility] monohydrate 8-20 01-10 capsule by i ty of 100 mg 00:00: 00:00 mouth 2 [place] capsule 00 :00 (two) Medical times Branch daily. doxycycline 2020-0 2023- No [id number] 100mg Take 1 [facility] monohydrate 8-20 01-10 capsule by i ty of 100 mg 00:00: 00:00 mouth 2 [place] capsule 00 :00 (two) Medical times Branch daily. doxycycline 2020-0 2023- No [id number] 100mg Take 1 [facility] monohydrate 8-20 -10 capsule by i ty of 100 mg 00:00: 00:00 mouth 2 [place] capsule 00 :00 (two) Medical times Branch daily. doxycycline 2019-2022- No [id number] 100mg Take 1 [facility] monohydrate 8-20 01-10 capsule by i ty of 100 mg 00:00: 00:00 mouth 2 [place] capsule 00 :00 (two) Medical times Branch daily. doxycycline 2019-2022- No [id number] 100mg Take 1 [facility] monohydrate 8-20 -10 capsule by i ty of 100 mg 00:00: 00:00 mouth 2 [place] capsule 00 :00 (two) Medical times Branch daily. doxycycline 2022- No [id number] 100mg Take 1 [facility] monohydrate 8-20 -10 capsule by i ty of 100 mg 00:00: 00:00 mouth 2 [place] capsule 00 :00 (two) Medical times Branch daily. pantoprazol 2019-0 Yes [id number] 40mg Take 1 [facility] e 40 mg EC 8-18 tablet by ity of tablet 00:00: mouth once 00 daily as Medical needed for Branch Indigestio n. LORazepam 1 Yes [id number] 1mg Take 1 [facility] mg tablet 8-18 tablet by ity o f 00:00: mouth once 00 daily as Medical needed for Branch Anxiety or Agitation. pantoprazol 2019-0 Yes [id number] 40mg Take 1 [facility] e 40 mg EC 8-18 tablet by ity of tablet 00:00: mouth once 00 daily as Medical needed for Branch Indigestio n. LORazepam 1 2019-0 Yes [id number] 1mg Take 1 [facility] mg tablet 8-18 tablet by ity o f 00:00: mouth once [place] 00 daily as Medical needed for Branch Anxiety or Agitation. pantoprazol 2019-0 Yes [id number] 40mg Take 1 [facility] e 40 mg EC 8-18 tablet by ity of tablet 00:00: mouth once [place] 00 daily as Medical needed for Branch Indigestio n. LORazepam 1 2019- Yes [id number] 1mg Take 1 [facility] mg tablet 8-18 tablet by ity o f 00:00: mouth once [place] 00 daily as Medical needed for Branch Anxiety or Agitation. pantoprazol 2019-0 Yes [id number] 40mg Take 1 [facility] e 40 mg EC 8-18 tablet by ity of tablet 00:00: mouth once [place] 00 daily as Medical needed for Branch Indigestio n. LORazepam 1 2019-0 Yes [id number] 1mg Take 1 [facility] mg tablet 8-18 tablet by ity o f 00:00: mouth once [place] 00 daily as Medical needed for Branch Anxiety or Agitation. pantoprazol 2020-0 Yes [id number] 40mg Take 1 [facility] e 40 mg EC 8-18 tablet by ity of tablet 00:00: mouth once [place] 00 daily as Medical needed for Branch Indigestio n. LORazepam 1 2019-0 Yes [id number] 1mg Take 1 [facility] mg tablet 8-18 tablet by ity o f 00:00: mouth once [place] 00 daily as Medical needed for Branch Anxiety or Agitation. pantoprazol 2019-0 Yes [id number] 40mg Take 1 [facility] e 40 mg EC 8-18 tablet by ity of tablet 00:00: mouth once [place] 00 daily as Medical needed for Branch Indigestio n. LORazepam 1 2019-0 Yes [id number] 1mg Take 1 [facility] mg tablet 8-18 tablet by ity o f 00:00: mouth once [place] 00 daily as Medical needed for Branch Anxiety or Agitation. pantoprazol 2019-0 Yes [id number] 40mg Take 1 [facility] e 40 mg EC 8-18 tablet by ity of tablet 00:00: mouth once [place] 00 daily as Medical needed for Branch Indigestio n. LORazepam 1 2019-0 Yes [id number] 1mg Take 1 [facility] mg tablet 8-18 tablet by ity o f 00:00: mouth once [place] 00 daily as Medical needed for Branch Anxiety or Agitation. pantoprazol 2019-0 Yes [id number] 40mg Take 1 [facility] e 40 mg EC 8-18 tablet by ity of tablet 00:00: mouth once [place] 00 daily as Medical needed for Branch Indigestio n. LORazepam 1 2019-0 Yes [id number] 1mg Take 1 [facility] mg tablet 8-18 tablet by ity o f 00:00: mouth once [place] 00 daily as Medical needed for Branch Anxiety or Agitation. pantoprazol 2019-0 Yes [id number] 40mg Take 1 [facility] e 40 mg EC 8-18 tablet by ity of tablet 00:00: mouth once [place] 00 daily as Medical needed for Branch Indigestio n. LORazepam 1 2019-0 Yes [id number] 1mg Take 1 [facility] mg tablet 8-18 tablet by ity o f 00:00: mouth once [place] 00 daily as Medical needed for Branch Anxiety or Agitation. pantoprazol 2019-0 Yes [id number] 40mg Take 1 [facility] e 40 mg EC 8-18 tablet by ity of tablet 00:00: mouth once [place] 00 daily as Medical needed for Branch Indigestio n. LORazepam 1 2019- Yes [id number] 1mg Take 1 [facility] mg tablet 8-18 tablet by ity o f 00:00: mouth once [place] 00 daily as Medical needed for Branch Anxiety or Agitation. pantoprazol 2019- Yes [id number] 40mg Take 1 [facility] e 40 mg EC 8-18 tablet by ity of tablet 00:00: mouth once [place] 00 daily as Medical needed for Branch Indigestio n. LORazepam 1 2019- Yes [id number] 1mg Take 1 [facility] mg tablet 8-18 tablet by ity o f 00:00: mouth once [place] 00 daily as Medical needed for Branch Anxiety or Agitation. pantoprazol 2019- Yes [id number] 40mg Take 1 [facility] e 40 mg EC 8-18 tablet by ity of tablet 00:00: mouth once [place] 00 daily as Medical needed for Branch Indigestio n. LORazepam 1 2019- Yes [id number] 1mg Take 1 [facility] mg tablet 8-18 tablet by ity o f 00:00: mouth once [place] 00 daily as Medical needed for Branch Anxiety or Agitation. pantoprazol 2019- Yes [id number] 40mg Take 1 [facility] e 40 mg EC 8-18 tablet by ity of tablet 00:00: mouth once [place] 00 daily as Medical needed for Branch Indigestio n. LORazepam 1 2019- Yes [id number] 1mg Take 1 [facility] mg tablet 8-18 tablet by ity o f 00:00: mouth once [place] 00 daily as Medical needed for Branch Anxiety or Agitation. pantoprazol 2019-2022- No [id number] 40mg Take 1 [facility] e 40 mg EC 8-18 01-10 tablet by ity of tablet 00:00: 00:00 mouth once [place] 00 :00 daily as Medical needed for Branch Indigestio n. LORazepam 1 2022- No [id number] 1mg Take 1 [facility] mg tablet 8-18 01-10 tablet by ity of 00:00: 00:00 mouth once [place] 00 :00 daily as Medical needed for Branch Anxiety or Agitation. pantoprazol No [id number] 40mg Take 1 [facility] e 40 mg EC 12-0110 tablet by ity of tablet 00:00: 00:00 mouth once [place] 00 :00 daily as Medical needed for Branch Indigestio n. LORazepam 1 No [id number] 1mg Take 1 [facility] mg tablet 12-01 tablet by ity of 00:00: 00:00 mouth once [place] 00 :00 daily as Medical needed for Branch Anxiety or Agitation. pantoprazol No [id number] 40mg Take 1 [facility] e 40 mg EC 12-01 tablet by ity of tablet 00:00: 00:00 mouth once [place] 00 :00 daily as Medical needed for Branch Indigestio n. LORazepam 1 No [id number] 1mg Take 1 [facility] mg tablet 12-01 tablet by ity of 00:00: 00:00 mouth once [place] 00 :00 daily as Medical needed for Branch Anxiety or Agitation. pantoprazol No [id number] 40mg Take 1 [facility] e 40 mg EC 12-0110 tablet by ity of tablet 00:00: 00:00 mouth once [place] 00 :00 daily as Medical needed for Branch Indigestio n. LORazepam 1 No [id number] 1mg Take 1 [facility] mg tablet 12-01 tablet by ity of 00:00: 00:00 mouth once [place] 00 :00 daily as Medical needed for Branch Anxiety or Agitation. pantoprazol No [id number] 40mg Take 1 [facility] e 40 mg EC 12-0110 tablet by ity of tablet 00:00: 00:00 mouth once [place] 00 :00 daily as Medical needed for Branch Indigestio n. LORazepam 1 No [id number] 1mg Take 1 [facility] mg tablet 12-01 tablet by ity of 00:00: 00:00 mouth once [place] 00 :00 daily as Medical needed for Branch Anxiety or Agitation. pantoprazol No [id number] 40mg Take 1 [facility] e 40 mg EC 12-01 tablet by ity of tablet 00:00: 00:00 mouth once [place] 00 :00 daily as Medical needed for Branch Indigestio n. LORazepam 1 2022- No [id number] 1mg Take 1 [facility] mg tablet 12-01 tablet by ity of 00:00: 00:00 mouth once [place] 00 :00 daily as Medical needed for Branch Anxiety or Agitation. doxycycline 2019- No [id number] 100mg Take 1 [facility] hyclate 100 12-01 capsule by i ty of mg capsule 00:00: 04:59 mouth [place] 00 :00 every 12 Medical (twelve) Branch hours for 14 days. doxycycline 2019- No [id number] 100mg Take 1 [facility] hyclate 100 12-01 capsule by i ty of mg capsule 00:00: 04:59 mouth [place] 00 :00 every 12 Medical (twelve) Branch hours for 14 days. doxycycline 2019- No [id number] 100mg Take 1 [facility] hyclate 100 12-01 capsule by i ty of mg capsule 00:00: 04:59 mouth [place] 00 :00 every 12 Medical (twelve) Branch hours for 14 days. doxycycline 2019- No [id number] 100mg Take 1 [facility] hyclate 100 12-0120 capsule by i ty of mg capsule 00:00: 00:00 mouth [place] 00 :00 every 12 Medical (twelve) Branch hours for 14 days. FLUoxetine 2019-0 Yes 60mg Take 60 mg U nivers 60 mg 7-23 by mouth ity of tablet 00:00: daily. [place] [facility] Branch FLUoxetine 2020-0 Yes 60mg Take 60 mg U nivers 60 mg 7-23 by mouth ity of tablet 00:00: daily. [place] [facility] Branch FLUoxetine 2020-0 Yes 60mg Take 60 mg U nivers 60 mg 7-23 by mouth ity of tablet 00:00: daily. [place] [facility] Branch FLUoxetine 2020-0 Yes 60mg Take 60 mg U nivers 60 mg 7-23 by mouth ity of tablet 00:00: daily. [place] [facility] FLUoxetine 2020-0 Yes 60mg Take 60 mg U nivers 60 mg 7-23 by mouth ity of tablet 00:00: daily. [place] [address] [place] [address] FLUoxetine 2020-0 Yes 60mg Take 60 mg U nivers 60 mg 7-23 by mouth ity of tablet 00:00: daily. [place] [facility] FLUoxetine 2020-0 Yes 60mg Take 60 mg U nivers 60 mg 7-23 by mouth ity of tablet 00:00: daily. [place] [facility] FLUoxetine 2020-0 Yes 60mg Take 60 mg U nivers 60 mg 7-23 by mouth ity of tablet 00:00: daily. [place] [facility] FLUoxetine 2020-0 Yes 60mg Take 60 mg U nivers 60 mg 7-23 by mouth ity of tablet 00:00: daily. [address] FLUoxetine 2020-0 Yes 60mg Take 60 mg U nivers 60 mg 7-23 by mouth ity of tablet 00:00: daily. [address] FLUoxetine 2020-0 Yes 60mg Take 60 mg U nivers 60 mg 7-23 by mouth ity of tablet 00:00: daily. [address] FLUoxetine 2020-0 Yes 60mg Take 60 mg U nivers 60 mg 7-23 by mouth ity of tablet 00:00: daily. [address] FLUoxetine 2020-0 Yes 60mg Take 60 mg U nivers 60 mg 7-23 by mouth ity of tablet 00:00: daily. [address] FLUoxetine 2020-0 Yes 60mg Take 60 mg U nivers 60 mg 7-23 by mouth ity of tablet 00:00: daily. [address] FLUoxetine 2020-0 Yes 60mg Take 60 mg U nivers 60 mg 7-23 by mouth ity of tablet 00:00: daily. [address] FLUoxetine 2020-0 Yes 60mg Take 60 mg U nivers 60 mg 7-23 by mouth ity of tablet 00:00: daily. [address] FLUoxetine 2020-0 Yes 60mg Take 60 mg U nivers 60 mg 7-23 by mouth ity of tablet 00:00: daily. [address] FLUoxetine 2020-0 Yes 60mg Take 60 mg U nivers 60 mg 7-23 by mouth ity of tablet 00:00: daily. [address] FLUoxetine 2020-0 Yes 60mg Take 60 mg U nivers 60 mg 7-23 by mouth ity of tablet 00:00: daily. [address] FLUoxetine 2020-0 Yes 60mg Take 60 mg U nivers 60 mg 7-23 by mouth ity of tablet 00:00: daily. [address] FLUoxetine 2020-0 Yes 60mg Take 60 mg U nivers 60 mg 7-23 by mouth ity of tablet 00:00: daily. [place] [facility] FLUoxetine 2020-0 Yes 60mg Take 60 mg U nivers 60 mg 7-23 by mouth ity of tablet 00:00: daily. [address] FLUoxetine 2020-0 Yes 60mg Take 60 mg U nivers 60 mg 7-23 by mouth ity of tablet 00:00: daily. [place] [facility] FLUoxetine 2020-0 Yes 60mg Take 60 mg U nivers 60 mg 7-23 by mouth ity of tablet 00:00: daily. [address] FLUoxetine 2020-0 Yes 60mg Take 60 mg U nivers 60 mg 7-23 by mouth ity of tablet 00:00: daily. [address] FLUoxetine 2020-0 Yes 60mg Take 60 mg U nivers 60 mg 7-23 by mouth ity of tablet 00:00: daily. [address] FLUoxetine 2020-0 Yes 60mg Take 60 mg U nivers 60 mg 7-23 by mouth ity of tablet 00:00: daily. [address] FLUoxetine 2020-0 Yes 60mg Take 60 mg U nivers 60 mg 7-23 by mouth ity of tablet 00:00: daily. [address] FLUoxetine 2020-0 Yes 60mg Take 60 mg U nivers 60 mg 7-23 by mouth ity of tablet 00:00: daily. [address] FLUoxetine 2020-0 Yes 60mg Take 60 mg U nivers 60 mg 7-23 by mouth ity of tablet 00:00: daily. [address] FLUoxetine 2020-0 Yes 60mg Take 60 mg U nivers 60 mg 7-23 by mouth ity of tablet 00:00: daily. [address] FLUoxetine 2020-0 Yes 60mg Take 60 mg U nivers 60 mg 7-23 by mouth ity of tablet 00:00: daily. [address] QUEtiapine 2020-0 Yes 200mg Take 200 [facility] [place] [place] 200 mg 7-21 mg by ity of tablet 00:00: mouth at [place] [address] bedtime. [facility] QUEtiapine 2020-0 Yes 200mg Take 200 [facility] [place] 200 mg 7-21 mg by ity of tablet 00:00: mouth at [place] [address] bedtime. Medical Branch QUEtiapine 2020-0 Yes 200mg Take 200 [facility] [place] 200 mg 7-21 mg by ity of tablet 00:00: mouth at [place] [address] bedtime. Medical Branch QUEtiapine 2020-0 Yes 200mg Take 200 [facility] [place] 200 mg 7-21 mg by ity of tablet 00:00: mouth at [place] [address] bedtime. Medical Branch QUEtiapine 2020-0 Yes 200mg Take 200 [facility] [place] 200 mg 7-21 mg by ity of tablet 00:00: mouth at [place] [address] bedtime. Medical Branch QUEtiapine 2020-0 Yes 200mg Take 200 [facility] [place] 200 mg 7-21 mg by ity of tablet 00:00: mouth at [place] [address] bedtime. Medical Branch QUEtiapine 2020-0 Yes 200mg Take 200 [facility] [place] 200 mg 7-21 mg by ity of tablet 00:00: mouth at [place] [address] bedtime. Medical Branch QUEtiapine 2020-0 Yes 200mg Take 200 [facility] [place] 200 mg 7-21 mg by ity of tablet 00:00: mouth at [place] [address] bedtime. Medical Branch QUEtiapine 2020-0 Yes 200mg Take 200 [facility] [place] 200 mg 7-21 mg by ity of tablet 00:00: mouth at [place] [address] bedtime. Medical Branch QUEtiapine 2020-0 Yes 200mg Take 200 [facility] [place] 200 mg 7-21 mg by ity of tablet 00:00: mouth at [place] [address] bedtime. Medical Branch QUEtiapine 2020-0 Yes 200mg Take 200 [place] 200 mg 7-21 mg by ity of tablet 00:00: mouth at [place] [address] bedtime. Medical Branch QUEtiapine 2020-0 Yes 200mg Take 200 [facility] [place] 200 mg 7-21 mg by ity of tablet 00:00: mouth at [place] [address] bedtime. Medical Branch QUEtiapine 2020-0 Yes 200mg Take 200 [facility] [place] 200 mg 7-21 mg by ity of tablet 00:00: mouth at [place] [address] bedtime. Medical Branch QUEtiapine 2020-0 2023- No 200mg Take 200 U nivers 200 mg 7-21 01-10 mg by ity of tablet 00:00: 00:00 mouth at [place] 00 :00 bedtime. Medical Branch QUEtiapine 2020-0 2023- No 200mg Take 200 U nivers 200 mg 7-21 01-10 mg by ity of tablet 00:00: 00:00 mouth at [place] 00 :00 bedtime. Medical Branch QUEtiapine 2019-2022- No 200mg Take 200 U nivers 200 mg 7-21 01-10 mg by ity of tablet 00:00: 00:00 mouth at [place] 00 :00 bedtime. Medical Branch QUEtiapine 2022- No 200mg Take 200 U nivers 200 mg 7-21 01-10 mg by ity of tablet 00:00: 00:00 mouth at [place] 00 :00 bedtime. Medical Branch QUEtiapine 2019-2022- No 200mg Take 200 U nivers 200 mg 7-21 01-10 mg by ity of tablet 00:00: 00:00 mouth at [place] 00 :00 bedtime. Medical Branch QUEtiapine 2019-2022- No 200mg Take 200 U nivers 200 mg 7-21 01-10 mg by ity of tablet 00:00: 00:00 mouth at [place] 00 :00 bedtime. Medical Branch pantoprazol Yes [id number] 40mg Take 1 [facility] e 40 mg EC 6-23 tablet by ity of tablet 00:00: mouth once [place] 00 daily as Medical needed for Branch Indigestio n. pantoprazol Yes [id number] 40mg Take 1 [facility] e 40 mg EC 6-23 tablet by ity of tablet 00:00: mouth once 00 daily as Medical needed for Branch Indigestio n. pantoprazol Yes [id number] 40mg Take 1 [facility] e 40 mg EC 6-23 tablet by ity of tablet 00:00: mouth once 00 daily as Medical needed for Branch Indigestio n. pantoprazol 2019- No [id number] 40mg Take 1 [facility] e 40 mg EC 6-23 08-18 tablet by ity of tablet 00:00: 00:00 mouth once [place] 00 :00 daily as Medical needed for Branch Indigestio n. pantoprazol 2019- No [id number] 40mg Take 1 [facility] e 40 mg EC 6-23 08-18 tablet by ity of tablet 00:00: 00:00 mouth once [place] 00 :00 daily as Medical needed for Branch Indigestio n. fluticasone 2019- Yes [id number] 2{spray Use 2 [facility] propionate 6-16 } Sprays in ity of (FLONASE 00:00: each [place] ALLERGY 00 nostril Medical RELIEF) 50 daily. Branch mcg/actuati on nasal spray LORazepam 1 2020-0 Yes [id number] 1mg Take 1 [facility] mg tablet 6-16 tablet by ity o f 00:00: mouth once [place] 00 daily as Medical needed for Branch Anxiety or Agitation. fluticasone 2020-0 Yes [id number] 2{spray Use 2 [facility] propionate 6-16 } Sprays in ity of (FLONASE 00:00: each [place] ALLERGY 00 nostril Medical RELIEF) 50 daily. Branch mcg/actuati on nasal spray LORazepam 1 2020-0 Yes [id number] 1mg Take 1 [facility] mg tablet 6-16 tablet by ity o f 00:00: mouth once [place] 00 daily as Medical needed for Branch Anxiety or Agitation. fluticasone 2020-0 Yes [id number] 2{spray Use 2 [facility] propionate 6-16 } Sprays in ity of (FLONASE 00:00: each [place] ALLERGY 00 nostril Medical RELIEF) 50 daily. Branch mcg/actuati on nasal spray LORazepam 1 2019-0 Yes [id number] 1mg Take 1 [facility] mg tablet 6-16 tablet by ity o f 00:00: mouth once [place] 00 daily as Medical needed for Branch Anxiety or Agitation. fluticasone 2020-0 Yes [id number] 2{spray Use 2 [facility] propionate 6-16 } Sprays in ity of (FLONASE 00:00: each [place] ALLERGY 00 nostril Medical RELIEF) 50 daily. Branch mcg/actuati on nasal spray LORazepam 1 2020-0 Yes [id number] 1mg Take 1 [facility] mg tablet 6-16 tablet by ity o f 00:00: mouth once [place] 00 daily as Medical needed for Branch Anxiety or Agitation. fluticasone 2020-0 Yes [id number] 2{spray Use 2 [facility] propionate 6-16 } Sprays in ity of (FLONASE 00:00: each [place] ALLERGY 00 nostril Medical RELIEF) 50 daily. Branch mcg/actuati on nasal spray fluticasone 2020-0 Yes [id number] 2{spray Use 2 [facility] propionate 6-16 } Sprays in ity of (FLONASE 00:00: each [place] ALLERGY 00 nostril Medical RELIEF) 50 daily. Branch mcg/actuati on nasal spray fluticasone 2020-0 Yes [id number] 2{spray Use 2 [facility] propionate 6-16 } Sprays in ity of (FLONASE 00:00: each [place] ALLERGY 00 nostril Medical RELIEF) 50 daily. Branch mcg/actuati on nasal spray fluticasone 2020-0 Yes [id number] 2{spray Use 2 [facility] propionate 6-16 } Sprays in ity of (FLONASE 00:00: each [place] ALLERGY 00 nostril Medical RELIEF) 50 daily. Branch mcg/actuati on nasal spray fluticasone 2020-0 Yes [id number] 2{spray Use 2 [facility] propionate 6-16 } Sprays in ity of (FLONASE 00:00: each [place] ALLERGY 00 nostril Medical RELIEF) 50 daily. Branch mcg/actuati on nasal spray fluticasone 2020-0 Yes [id number] 2{spray Use 2 [facility] propionate 6-16 } Sprays in ity of (FLONASE 00:00: each [place] ALLERGY 00 nostril Medical RELIEF) 50 daily. Branch mcg/actuati on nasal spray fluticasone 2020-0 Yes [id number] 2{spray Use 2 [facility] propionate 6-16 } Sprays in ity of (FLONASE 00:00: each [place] ALLERGY 00 nostril Medical RELIEF) 50 daily. Branch mcg/actuati on nasal spray fluticasone 2020-0 Yes [id number] 2{spray Use 2 [facility] propionate 6-16 } Sprays in ity of (FLONASE 00:00: each [place] ALLERGY 00 nostril Medical RELIEF) 50 daily. Branch mcg/actuati on nasal spray fluticasone 2020-0 Yes [id number] 2{spray Use 2 [facility] propionate 6-16 } Sprays in ity of (FLONASE 00:00: each [place] ALLERGY 00 nostril Medical RELIEF) 50 daily. Branch mcg/actuati on nasal spray fluticasone 2020-0 2020- No [id number] 2{spray Use 2 [facility] propionate 6-16 10-15 } Sprays in ity of (FLONASE 00:00: 00:00 each [place] ALLERGY 00 :00 nostril Medical RELIEF) 50 daily. Branch mcg/actuati on nasal spray LORazepam 1 2019-0 2020- No [id number] 1mg Take 1 [facility] mg tablet 6-16 08-18 tablet by ity of 00:00: 00:00 mouth once [place] 00 :00 daily as Medical needed for Branch Anxiety or Agitation. LORazepam 1 2020-0 2020- No [id number] 1mg Take 1 [facility] mg tablet 6-16 [...] Medical times Branch daily. FLUoxetine 2020-0 Yes [id number] 60mg Take 3 U nivers 20 mg 6-11 capsules ity of capsule 00:00: by mouth [place] 00 daily. Medical Branch FLUoxetine 2020-0 Yes [id number] 60mg Take 3 U nivers 20 mg 6-11 capsules ity of capsule 00:00: by mouth [place] 00 daily. Medical Branch FLUoxetine 2020-0 Yes [id number] 60mg Take 3 U nivers 20 mg 6-11 capsules ity of capsule 00:00: by mouth [place] 00 daily. Medical Branch FLUoxetine 2019-0 Yes [id number] 60mg Take 3 U nivers 20 mg 6-11 capsules ity of capsule 00:00: by mouth [place] 00 daily. Medical Branch FLUoxetine 2019-0 Yes [id number] 60mg Take 3 U nivers 20 mg 6-11 capsules ity of capsule 00:00: by mouth [place] 00 daily. Medical Branch FLUoxetine 2019-0 2020- No [id number] 60mg Take 3 [facility] 20 mg 6-11 08-18 capsules ity of capsule 00:00: 00:00 by mouth [place] 00 :00 daily. Medical Branch FLUoxetine 2019-0 2020- No [id number] 60mg Take 3 [facility] 20 mg 6-11 08-18 capsules ity of capsule 00:00: 00:00 by mouth [place] 00 :00 daily. Medical Branch pantoprazol 2019-0 Yes [id number] 40mg Take 1 [facility] e 40 mg EC 5-21 tablet by ity of tablet 00:00: mouth once 00 daily as Medical needed for Branch Indigestio n. pantoprazol 2019-0 Yes [id number] 40mg Take 1 [facility] e 40 mg EC 5-21 tablet by ity of tablet 00:00: mouth once [place] 00 daily as Medical needed for Branch Indigestio n. pantoprazol 2019-0 Yes [id number] 40mg Take 1 [facility] e 40 mg EC 5-21 tablet by ity of tablet 00:00: mouth once [place] 00 daily as Medical needed for Branch Indigestio n. pantoprazol 2019-0 2020- No [id number] 40mg Take 1 [facility] e 40 mg EC 5-21 -23 tablet by ity of tablet 00:00: 00:00 mouth once [place] 00 :00 daily as Medical needed for Branch Indigestio n. cariprazine 2019-0 2020- No 10mg Take 10 mg [facility] HCl 5-19 05-19 by mouth ity of (VRAYLAR 16:24: 00:00 at [place] ORAL) 07 :00 bedtime. Medical Branch phenytoin 2020-0 Yes [id number] 400mg Take 4 U nivers Extended 5-19 capsules ity of (DILANTIN) 00:00: by mouth [place] 100 mg 00 daily. Medical capsule Branch levothyroxi 2019-0 Yes [id number] 150ug Take 1 [facility] ne 150 mcg 5-19 tablet by ity of tablet 00:00: mouth every Medical morning. Branch cholestyram 2020-0 Yes [id number] 2g Take 0.5 [facility] ine 4 gram 5-19 Packets by ity of powder 00:00: mouth 3 (three) Medical times [place] daily with meals. phenytoin 2020-0 Yes [id number] 400mg Take 4 U nivers Extended 5-19 capsules ity of (DILANTIN) 00:00: by mouth [place] 100 mg 00 daily. Medical capsule Branch levothyroxi 2020-0 Yes [id number] 150ug Take 1 [facility] ne 150 mcg 5-19 tablet by ity of tablet 00:00: mouth every Medical morning. Branch cholestyram 2020-0 Yes [id number] 2g Take 0.5 [facility] ine 4 gram 5-19 Packets by ity of powder 00:00: mouth (three) Medical times [place] daily with meals. phenytoin 2020-0 Yes [id number] 400mg Take 4 U nivers Extended 5-19 capsules ity of (DILANTIN) 00:00: by mouth [place] 100 mg 00 daily. Medical capsule Branch levothyroxi 2020-0 Yes [id number] 150ug Take 1 [facility] ne 150 mcg 5-19 tablet by ity of tablet 00:00: mouth [place] every Medical morning. Branch cholestyram 2020-0 Yes [id number] 2g Take 0.5 [facility] ine 4 gram 5-19 Packets by ity of powder 00:00: mouth (three) Medical times [place] daily with meals. phenytoin 2020-0 Yes [id number] 400mg Take 4 U nivers Extended 5-19 capsules ity of (DILANTIN) 00:00: by mouth [place] 100 mg 00 daily. Medical capsule Branch levothyroxi 2020-0 Yes [id number] 150ug Take 1 [facility] ne 150 mcg 5-19 tablet by ity of tablet 00:00: mouth every Medical morning. Branch cholestyram 2020-0 Yes [id number] 2g Take 0.5 [facility] ine 4 gram 5-19 Packets by ity of powder 00:00: mouth 3 (three) Medical times [place] daily with meals. phenytoin 2020-0 Yes [id number] 400mg Take 4 U nivers Extended 5-19 capsules ity of (DILANTIN) 00:00: by mouth [place] 100 mg 00 daily. Medical capsule Branch levothyroxi 2020-0 Yes [id number] 150ug Take 1 [facility] ne 150 mcg 5-19 tablet by ity of tablet 00:00: mouth [place] 00 every Medical morning. Branch cholestyram 2020-0 Yes [id number] 2g Take 0.5 [facility] ine 4 gram 5-19 Packets by ity of powder 00:00: mouth 3 (three) Medical times Branch daily with meals. phenytoin 2020-0 Yes [id number] 400mg Take 4 U nivers Extended 5-19 capsules ity of (DILANTIN) 00:00: by mouth [place] 100 mg 00 daily. Medical capsule Branch levothyroxi 2020-0 Yes [id number] 150ug Take 1 [facility] ne 150 mcg 5-19 tablet by ity of tablet 00:00: mouth 00 every Medical morning. Branch cholestyram 2020-0 Yes [id number] 2g Take 0.5 [facility] ine 4 gram 5-19 Packets by ity of powder 00:00: mouth (three) Medical times Branch daily with meals. phenytoin 2020-0 Yes [id number] 400mg Take 4 U nivers Extended 5-19 capsules ity of (DILANTIN) 00:00: by mouth [place] 100 mg 00 daily. Medical capsule Branch levothyroxi 2020-0 Yes [id number] 150ug Take 1 [facility] ne 150 mcg 5-19 tablet by ity of tablet 00:00: mouth 00 every Medical morning. Branch cholestyram 2020-0 Yes [id number] 2g Take 0.5 [facility] ine 4 gram 5-19 Packets by ity of powder 00:00: mouth (three) Medical times Branch daily with meals. phenytoin 2020-0 Yes [id number] 400mg Take 4 U nivers Extended 5-19 capsules ity of (DILANTIN) 00:00: by mouth [place] 100 mg 00 daily. Medical capsule Branch levothyroxi 2020-0 Yes [id number] 150ug Take 1 [facility] ne 150 mcg 5-19 tablet by ity of tablet 00:00: mouth [place] 00 every Medical morning. Branch cholestyram 2020-0 Yes [id number] 2g Take 0.5 [facility] in[facility] 4 gram 5-19 Packets by ity of powder 00:00: mouth 3 (three) Medical times Branch daily with meals. phenytoin 2020-0 Yes [id number] 400mg Take 4 [facility] Extended 5-19 capsules ity of (DILANTIN) 00:00: by mouth [place] 100 mg 00 daily. Medical capsule Branch levothyroxi 2020-0 Yes [id number] 150ug Take 1 [facility] ne 150 mcg 5-19 tablet by ity of tablet 00:00: mouth every Medical morning. Branch cholestyram 2020-0 Yes [id number] 2g Take 0.5 [facility] ine 4 gram 5-19 Packets by ity of powder 00:00: mouth 3 (three) Medical times Branch daily with meals. phenytoin 2020-0 Yes [id number] 400mg Take 4 [facility] Extended 5-19 capsules ity of (DILANTIN) 00:00: by mouth [place] 100 mg 00 daily. Medical capsule Branch levothyroxi 2020-0 Yes [id number] 150ug Take 1 [facility] ne 150 mcg 5-19 tablet by ity of tablet 00:00: mouth every Medical morning. Branch cholestyram 2020-0 Yes [id number] 2g Take 0.5 [facility] in[facility] 4 gram 5-19 Packets by ity of powder 00:00: mouth 3 (three) Medical times Branch daily with meals. phenytoin 2020-0 Yes [id number] 400mg Take 4 [facility] Extended 5-19 capsules ity of (DILANTIN) 00:00: by mouth [place] 100 mg 00 daily. Medical capsule Branch levothyroxi 2020-0 Yes [id number] 150ug Take 1 [facility] ne 150 mcg 5-19 tablet by ity of tablet 00:00: mouth [place] every Medical morning. Branch cholestyram 2020-0 Yes [id number] 2g Take 0.5 [facility] ine 4 gram 5-19 Packets by ity of powder 00:00: mouth (three) Medical times Branch daily with meals. nystatin 2020-0 Yes [id number] Apply to [facility] 100,000 5-19 area(s) 2 ity of unit/gram 00:00: (two) [place] powder 00 times Medical daily. Branch phenytoin 2020-0 Yes [id number] 400mg Take 4 [facility] n[facility] Extended 5-19 capsules ity of (DILANTIN) 00:00: by mouth [place] 100 mg 00 daily. Medical capsule Branch FLUoxetine 2020-0 Yes 60mg Take 3 [facility] 20 mg 5-19 capsules ity of capsule 00:00: by mouth [place] 00 daily. Medical Branch levothyroxi 2020-0 Yes [id number] 150ug Take 1 [facility] ne 150 mcg 5-19 tablet by ity of tablet 00:00: mouth [place] 00 every Medical morning. Branch cholestyram 2020-0 Yes [id number] 2g Take 0.5 [facility] in[facility] 4 gram 5-19 Packets by ity of powder 00:00: mouth 3 [place] 00 (three) Medical times [place] daily with meals. LORazepam 1 2019-0 Yes [id number] 1mg Take 1 [facility] mg tablet 5-19 tablet by ity o f 00:00: mouth once [place] 00 daily as Medical needed for Branch Anxiety or Agitation. nystatin 2020-0 Yes [id number] Apply to [facility] 100,000 519 area(s) 2 ity of unit/gram 00:00: (two) [place] powder 00 times Medical daily. Branch phenytoin 2020-0 Yes [id number] 400mg Take 4 [facility] n[facility] Extended 5-19 capsules ity of (DILANTIN) 00:00: by mouth [place] 100 mg 00 daily. Medical capsule Branch levothyroxi 2020-0 Yes [id number] 150ug Take 1 [facility] ne 150 mcg 5-19 tablet by ity of tablet 00:00: mouth [place] 00 every Medical morning. Branch cholestyram 2020-0 Yes [id number] 2g Take 0.5 [facility] ine 4 gram 5-19 Packets by ity of powder 00:00: mouth 3 00 (three) Medical times [place] daily with meals. LORazepam 1 2019-0 Yes [id number] 1mg Take 1 [facility] mg tablet 5-19 tablet by ity o f 00:00: mouth once [place] 00 daily as Medical needed for Branch Anxiety or Agitation. nystatin 2020-0 Yes [id number] Apply to [facility] 100,000 5-19 area(s) 2 ity of unit/gram 00:00: (two) [place] powder 00 times Medical daily. Branch phenytoin 2020-0 Yes [id number] 400mg Take 4 [facility] n[facility] Extended 5-19 capsules ity of (DILANTIN) 00:00: by mouth [place] 100 mg 00 daily. Medical capsule Branch levothyroxi 2020-0 Yes [id number] 150ug Take 1 [facility] ne 150 mcg 5-19 tablet by ity of tablet 00:00: mouth [place] 00 every Medical morning. Branch cholestyram 2020-0 Yes [id number] 2g Take 0.5 [facility] ine 4 gram 5-19 Packets by ity of powder 00:00: mouth 3 (three) Medical times [place] daily with meals. nystatin 2020-0 Yes [id number] Apply to [facility] 100,000 5-19 area(s) 2 ity of unit/gram 00:00: (two) [place] powder 00 times Medical daily. Branch phenytoin 2020-0 Yes [id number] 400mg Take 4 [facility] n[facility] Extended 5-19 capsules ity of (DILANTIN) 00:00: by mouth [place] 100 mg 00 daily. Medical capsule Branch levothyroxi 2020-0 Yes [id number] 150ug Take 1 [facility] ne 150 mcg 5-19 tablet by ity of tablet 00:00: mouth every Medical morning. Branch cholestyram 2020-0 Yes [id number] 2g Take 0.5 [facility] ine 4 gram 5-19 Packets by ity of powder 00:00: mouth (three) Medical times [place] daily with meals. nystatin 2020-0 Yes [id number] Apply to [facility] 100,000 5-19 area(s) 2 ity of unit/gram 00:00: (two) [place] powder 00 times Medical daily. Branch phenytoin 2020-0 Yes [id number] 400mg Take 4 [facility] Extended 5-19 capsules ity of (DILANTIN) 00:00: by mouth [place] 100 mg 00 daily. Medical capsule Branch levothyroxi 2020-0 Yes [id number] 150ug Take 1 [facility] ne 150 mcg 5-19 tablet by ity of tablet 00:00: mouth every Medical morning. Branch cholestyram 2020-0 Yes [id number] 2g Take 0.5 [facility] in[facility] 4 gram 5-19 Packets by ity of powder 00:00: mouth 3 (three) Medical times [place] daily with meals. nystatin 2020-0 Yes [id number] Apply to [facility] 100,000 5-19 area(s) 2 ity of unit/gram 00:00: (two) [place] powder 00 times Medical daily. Branch phenytoin 2020-0 Yes [id number] 400mg Take 4 [facility] Extended 5-19 capsules ity of (DILANTIN) 00:00: by mouth [place] 100 mg 00 daily. Medical capsule Branch levothyroxi 2020-0 Yes [id number] 150ug Take 1 [facility] ne 150 mcg 5-19 tablet by ity of tablet 00:00: mouth [place] 00 every Medical morning. Branch cholestyram 2019-0 Yes [id number] 2g Take 0.5 [facility] ine 4 gram 5-19 Packets by ity of powder 00:00: mouth 3 (three) Medical times [place] daily with meals. nystatin 2019-0 Yes [id number] Apply to [facility] 100,000 area(s) 2 ity of unit/gram 00:00: (two) [place] powder 00 times Medical daily. Branch phenytoin 2019-0 Yes [id number] 400mg Take 4 [facility] Extended 5-19 capsules ity of (DILANTIN) 00:00: by mouth [place] 100 mg 00 daily. Medical capsule Branch levothyroxi 2019-0 Yes [id number] 150ug Take 1 [facility] ne 150 mcg 5-19 tablet by ity of tablet 00:00: mouth [place] every Medical morning. Branch cholestyram 2019-0 Yes [id number] 2g Take 0.5 [facility] in[facility] 4 gram 5-19 Packets by ity of powder 00:00: mouth 3 (three) Medical times [place] daily with meals. phenytoin 2019-0 Yes [id number] 400mg Take 4 [facility] Extended 5-19 capsules ity of (DILANTIN) 00:00: by mouth [place] 100 mg 00 daily. Medical capsule Branch levothyroxi 2019-0 Yes [id number] 150ug Take 1 [facility] ne 150 mcg 5-19 tablet by ity of tablet 00:00: mouth [place] 00 every Medical morning. Branch cholestyram 2019-0 Yes [id number] 2g Take 0.5 [facility] in[facility] 4 gram 5-19 Packets by ity of powder 00:00: mouth 3 (three) Medical times [place] daily with meals. phenytoin 2019-0 Yes [id number] 400mg Take 4 [facility] Extended 5-19 capsules ity of (DILANTIN) 00:00: by mouth [place] 100 mg 00 daily. Medical capsule Branch levothyroxi 2019-0 Yes [id number] 150ug Take 1 [facility] ne 150 mcg 5-19 tablet by ity of tablet 00:00: mouth [place] 00 every Medical morning. Branch cholestyram 2019-0 Yes [id number] 2g Take 0.5 [facility] in[facility] 4 gram 5-19 Packets by ity of powder 00:00: mouth (three) Medical times Branch daily with meals. phenytoin 2020-0 Yes [id number] 400mg Take 4 [facility] Extended 5-19 capsules ity of (DILANTIN) 00:00: by mouth [place] 100 mg 00 daily. Medical capsule Branch levothyroxi 2020-0 Yes [id number] 150ug Take 1 [facility] ne 150 mcg 5-19 tablet by ity of tablet 00:00: mouth every Medical morning. Branch cholestyram 2020-0 Yes [id number] 2g Take 0.5 [facility] in[facility] 4 gram 5-19 Packets by ity of powder 00:00: mouth (three) Medical times Branch daily with meals. phenytoin 2020-0 Yes [id number] 400mg Take 4 [facility] Extended 5-19 capsules ity of (DILANTIN) 00:00: by mouth [place] 100 mg 00 daily. Medical capsule Branch levothyroxi 2020-0 Yes [id number] 150ug Take 1 [facility] ne 150 mcg 5-19 tablet by ity of tablet 00:00: mouth every Medical morning. Branch cholestyram 2020-0 Yes [id number] 2g Take 0.5 [facility] in[facility] 4 gram 5-19 Packets by ity of powder 00:00: mouth (three) Medical times Branch daily with meals. phenytoin 2020-0 Yes [id number] 400mg Take 4 [facility] Extended 5-19 capsules ity of (DILANTIN) 00:00: by mouth [place] 100 mg 00 daily. Medical capsule Branch levothyroxi 2020-0 Yes [id number] 150ug Take 1 [facility] ne 150 mcg 5-19 tablet by ity of tablet 00:00: mouth every Medical morning. Branch cholestyram 2020-0 Yes [id number] 2g Take 0.5 [facility] in[facility] 4 gram 5-19 Packets by ity of powder 00:00: mouth (three) Medical times Branch daily with meals. phenytoin 2020-0 Yes [id number] 400mg Take 4 [facility] Extended 5-19 capsules ity of (DILANTIN) 00:00: by mouth [place] 100 mg 00 daily. Medical capsule Branch levothyroxi 2020-0 Yes [id number] 150ug Take 1 [facility] ne 150 mcg 5-19 tablet by ity of tablet 00:00: mouth 00 every Medical morning. Branch cholestyram 2020-0 Yes [id number] 2g Take 0.5 [facility] in[facility] 4 gram 5-19 Packets by ity of powder 00:00: mouth 3 (three) Medical times Branch daily with meals. phenytoin 2020-0 Yes [id number] 400mg Take 4 [facility] Extended 5-19 capsules ity of (DILANTIN) 00:00: by mouth [place] 100 mg 00 daily. Medical capsule Branch levothyroxi 2020-0 Yes [id number] 150ug Take 1 [facility] ne 150 mcg 5-19 tablet by ity of tablet 00:00: mouth every Medical morning. Branch cholestyram 2020-0 Yes [id number] 2g Take 0.5 [facility] in[facility] 4 gram 5-19 Packets by ity of powder 00:00: mouth (three) Medical times Branch daily with meals. phenytoin 2020-0 Yes [id number] 400mg Take 4 [facility] n[facility] Extended 5-19 capsules ity of (DILANTIN) 00:00: by mouth [place] 100 mg 00 daily. Medical capsule Branch levothyroxi 2020-0 Yes [id number] 150ug Take 1 [facility] ne 150 mcg 5-19 tablet by ity of tablet 00:00: mouth [place] every Medical morning. Branch cholestyram 2020-0 Yes [id number] 2g Take 0.5 [facility] in[facility] 4 gram 5-19 Packets by ity of powder 00:00: mouth (three) Medical times Branch daily with meals. phenytoin 2020-0 Yes [id number] 400mg Take 4 [facility] Extended 5-19 capsules ity of (DILANTIN) 00:00: by mouth [place] 100 mg 00 daily. Medical capsule Branch levothyroxi 2020-0 Yes [id number] 150ug Take 1 [facility] ne 150 mcg 5-19 tablet by ity of tablet 00:00: mouth [place] every Medical morning. Branch cholestyram 2020-0 Yes [id number] 2g Take 0.5 [facility] in[facility] 4 gram 5-19 Packets by ity of powder 00:00: mouth 3 (three) Medical times Branch daily with meals. phenytoin 2020-0 Yes [id number] 400mg Take 4 [facility] Extended 5-19 capsules ity of (DILANTIN) 00:00: by mouth [place] 100 mg 00 daily. Medical capsule Branch levothyroxi 2020-0 Yes [id number] 150ug Take 1 [facility] ne 150 mcg 5-19 tablet by ity of tablet 00:00: mouth every Medical morning. Branch cholestyram 2020-0 Yes [id number] 2g Take 0.5 [facility] ine 4 gram 5-19 Packets by ity of powder 00:00: mouth (three) Medical times Branch daily with meals. phenytoin 2020-0 Yes [id number] 400mg Take 4 [facility] n[facility] Extended 5-19 capsules ity of (DILANTIN) 00:00: by mouth [place] 100 mg 00 daily. Medical capsule Branch levothyroxi 2020-0 Yes [id number] 150ug Take 1 [facility] ne 150 mcg 5-19 tablet by ity of tablet 00:00: mouth every Medical morning. Branch cholestyram 2020-0 Yes [id number] 2g Take 0.5 [facility] ine 4 gram 5-19 Packets by ity of powder 00:00: mouth (three) Medical times Branch daily with meals. phenytoin 2020-0 Yes [id number] 400mg Take 4 [facility] n[facility] Extended 5-19 capsules ity of (DILANTIN) 00:00: by mouth [place] 100 mg 00 daily. Medical capsule Branch levothyroxi 2020-0 Yes [id number] 150ug Take 1 [facility] ne 150 mcg 5-19 tablet by ity of tablet 00:00: mouth every Medical morning. Branch cholestyram 2020-0 Yes [id number] 2g Take 0.5 [facility] ine 4 gram 5-19 Packets by ity of powder 00:00: mouth (three) Medical times Branch daily with meals. phenytoin 2020-0 Yes [id number] 400mg Take 4 [facility] n[facility] Extended 5-19 capsules ity of (DILANTIN) 00:00: by mouth [place] 100 mg 00 daily. Medical capsule Branch levothyroxi 2020-0 Yes [id number] 150ug Take 1 [facility] ne 150 mcg 5-19 tablet by ity of tablet 00:00: mouth every Medical morning. Branch cholestyram 2020-0 Yes [id number] 2g Take 0.5 [facility] ine 4 gram 5-19 Packets by ity of powder 00:00: mouth (three) Medical times Branch daily with meals. phenytoin 2020-0 Yes [id number] 400mg Take 4 [facility] n[facility] Extended 5-19 capsules ity of (DILANTIN) 00:00: by mouth [place] 100 mg 00 daily. Medical capsule Branch levothyroxi 2020-0 Yes [id number] 150ug Take 1 [facility] ne 150 mcg 5-19 tablet by ity of tablet 00:00: mouth [place] 00 every Medical morning. Branch cholestyram 2020-0 Yes [id number] 2g Take 0.5 [facility] ine 4 gram 5-19 Packets by ity of powder 00:00: mouth 3 [place] (three) Medical times Branch daily with meals. phenytoin 2020-0 Yes [id number] 400mg Take 4 [facility] n[facility] Extended 5-19 capsules ity of (DILANTIN) 00:00: by mouth [place] 100 mg 00 daily. Medical capsule Branch levothyroxi 2020-0 Yes [id number] 150ug Take 1 [facility] ne 150 mcg 5-19 tablet by ity of tablet 00:00: mouth [place] every Medical morning. Branch cholestyram 2020-0 Yes [id number] 2g Take 0.5 [facility] ine 4 gram 5-19 Packets by ity of powder 00:00: mouth 3 [place] (three) Medical times Branch daily with meals. phenytoin 2020-0 Yes [id number] 400mg Take 4 [facility] nivers Extended 5-19 capsules ity of (DILANTIN) 00:00: by mouth [place] 100 mg 00 daily. Medical capsule Branch levothyroxi 2020-0 Yes [id number] 150ug Take 1 [facility] ne 150 mcg 5-19 tablet by ity of tablet 00:00: mouth [place] 00 every Medical morning. Branch cholestyram 2020-0 Yes [id number] 2g Take 0.5 [facility] ine 4 gram 5-19 Packets by ity of powder 00:00: mouth 3 [place] (three) Medical times Branch daily with meals. phenytoin 2020-0 Yes [id number] 400mg Take 4 [facility] n[facility] Extended 5-19 capsules ity of (DILANTIN) 00:00: by mouth [place] 100 mg 00 daily. Medical capsule Branch levothyroxi 2020-0 Yes [id number] 150ug Take 1 [facility] ne 150 mcg 5-19 tablet by ity of tablet 00:00: mouth [place] 00 every Medical morning. Branch cholestyram 2020-0 Yes [id number] 2g Take 0.5 [facility] in[facility] 4 gram 5-19 Packets by ity of powder 00:00: mouth (three) Medical times Branch daily with meals. phenytoin 2020-0 Yes [id number] 400mg Take 4 [facility] n[facility] Extended 5-19 capsules ity of (DILANTIN) 00:00: by mouth [place] 100 mg 00 daily. Medical capsule Branch levothyroxi 2020-0 Yes [id number] 150ug Take 1 [facility] ne 150 mcg 5-19 tablet by ity of tablet 00:00: mouth every Medical morning. Branch cholestyram 2020-0 Yes [id number] 2g Take 0.5 [facility] in[facility] 4 gram 5-19 Packets by ity of powder 00:00: mouth (three) Medical times Branch daily with meals. phenytoin 2020-0 Yes [id number] 400mg Take 4 [facility] n[facility] Extended 5-19 capsules ity of (DILANTIN) 00:00: by mouth [place] 100 mg 00 daily. Medical capsule Branch levothyroxi 2020-0 Yes [id number] 150ug Take 1 [facility] ne 150 mcg 5-19 tablet by ity of tablet 00:00: mouth [place] every Medical morning. Branch cholestyram 2020-0 Yes [id number] 2g Take 0.5 [facility] ine 4 gram 5-19 Packets by ity of powder 00:00: mouth (three) Medical times Branch daily with meals. phenytoin 2020-0 Yes [id number] 400mg Take 4 [facility] Extended 5-19 capsules ity of (DILANTIN) 00:00: by mouth [place] 100 mg 00 daily. Medical capsule Branch levothyroxi 2020-0 Yes [id number] 150ug Take 1 [facility] ne 150 mcg 5-19 tablet by ity of tablet 00:00: mouth [place] every Medical morning. Branch cholestyram 2020-0 Yes [id number] 2g Take 0.5 [facility] in[facility] 4 gram 5-19 Packets by ity of powder 00:00: mouth (three) Medical times Branch daily with meals. phenytoin 2020-0 Yes [id number] 400mg Take 4 [facility] Extended 5-19 capsules ity of (DILANTIN) 00:00: by mouth [place] 100 mg 00 daily. Medical capsule Branch levothyroxi 2020-0 Yes [id number] 150ug Take 1 [facility] ne 150 mcg 5-19 tablet by ity of tablet 00:00: mouth [place] 00 every Medical morning. Branch cholestyram 2019- Yes [id number] 2g Take 0.5 [facility] ine 4 gram 5-19 Packets by ity of powder 00:00: mouth 3 [place] 00 (three) Medical times Branch daily with meals. nystatin 2019-2019- No [id number] Apply to [facility] 100,000 5-19 08-18 area(s) 2 ity of unit/gram 00:00: 00:00 (two) [place] powder 00 :00 times Medical daily. Branch nystatin 2019- No [id number] Apply to [facility] 100,000 5-19 08-18 area(s) 2 ity of unit/gram 00:00: 00:00 (two) [place] powder 00 :00 times Medical daily. Branch LORazepam 1 2019- No [id number] 1mg Take 1 [facility] mg tablet 09-01-16 tablet by ity of 00:00: 00:00 mouth once [place] 00 :00 daily as Medical needed for Branch Anxiety or Agitation. LORazepam 1 2019- No [id number] 1mg Take 1 [facility] mg tablet 09-01-16 [...] [place] 00 :00 daily. Medical Branch pantoprazol 2019-2019- No [id number] 40mg Take 1 [facility] e 40 mg EC 5- 05-21 tablet by ity of tablet 00:00: 00:00 mouth once [place] 00 :00 daily as Medical needed for Branch Indigestio n. pantoprazol 2019- 2020- No [id number] 40mg Take 1 [facility] e 40 mg EC 5- 05-21 tablet by ity of tablet 00:00: 00:00 mouth once [place] 00 :00 daily as Medical needed for Branch Indigestio n. LORazepam 1 2019- No [id number] 1mg Take 1 [facility] mg tablet 5- 05-19 tablet by ity of 00:00: 00:00 mouth [place] 00 :00 every Medical other day. Branch PANTOPRAZOL 2019-0 Yes [id number] TAKE 1 [facility] E 40 mg EC 5-12 TABLET BY ity of tablet 00:00: MOUTH [place] 00 TWICE A Medical DAY Branch PANTOPRAZOL 2019-0 Yes [id number] TAKE 1 [facility] E 40 mg EC 5-12 TABLET BY ity of tablet 00:00: MOUTH [place] 00 TWICE A Medical DAY Branch PANTOPRAZOL 2019-0 2020- No [id number] TAKE 1 [facility] E 40 mg EC 5-12 05-19 TABLET BY ity of tablet 00:00: 00:00 MOUTH [place] 00 :00 TWICE A Medical DAY Branch levothyroxi 2019-0 Yes [id number] 150ug Take 1 [facility] ne 150 mcg 4-27 tablet by ity of tablet 00:00: mouth [place] 00 every Medical morning. Branch levothyroxi 2019-0 Yes [id number] 150ug Take 1 [facility] ne 150 mcg 4-27 tablet by ity of tablet 00:00: mouth [place] 00 every Medical morning. Branch levothyroxi 2019-0 2020- No [id number] 150ug Take 1 [facility] ne 150 mcg 4-27 05-19 tablet by ity of tablet 00:00: 00:00 mouth [place] 00 :00 every Medical morning. Branch acetaminoph 2019-0 Yes [id number] .5{tbl} Take 0.5-1 [facility] en-codeine 4-24 [id number] tablets by it y of (TYLENOL-CO 00:00: mouth [place] DEINE #3) 00 every 4 Medical 300-30 mg (four) Branch tablet hours as needed (pain). Pt medicaid is under her maiden name Cyndie Duvall acetaminoph 2020-0 Yes [id number] .5{tbl} Take 0.5-1 [facility] en-codeine 4-24 [id number] tablets by it y of (TYLENOL-CO 00:00: mouth [place] DEINE #3) 00 every 4 Medical 300-30 mg (four) Branch tablet hours as needed (pain). Pt medicaid is under her maiden name Cyndie Duvall acetaminoph 2020-0 Yes [id number] .5{tbl} Take 0.5-1 [facility] en-codeine 4-24 [id number] tablets by it y of (TYLENOL-CO 00:00: mouth [place] DEINE #3) 00 every 4 Medical 300-30 mg (four) Branch tablet hours as needed (pain). Pt medicaid is under her maiden name Cyndie cruzaminoph 2020-0 Yes [id number] .5{tbl} Take 0.5-1 [facility] en-codeine 4-24 [id number] tablets by it y of (TYLENOL-CO 00:00: mouth [place] DEINE #3) 00 every 4 Medical 300-30 mg (four) Branch tablet hours as needed (pain). Pt medicaid is under her maiden name Cyndie Duvall acetaminoph 2020-0 Yes [id number] .5{tbl} Take 0.5-1 [facility] en-codeine 4-24 [id number] tablets by it y of (TYLENOL-CO 00:00: mouth [place] DEINE #3) 00 every 4 Medical 300-30 mg (four) Branch tablet hours as needed (pain). Pt medicaid is under her maiden name Cyndie Duvall acetaminoph 2020-0 Yes [id number] .5{tbl} Take 0.5-1 [facility] en-codeine 4-24 [id number] tablets by it y of (TYLENOL-CO 00:00: mouth [place] DEINE #3) 00 every 4 Medical 300-30 mg (four) Branch tablet hours as needed (pain). Pt medicaid is under her maiden name Cyndie cruzaminoph 2020-0 Yes [id number] .5{tbl} Take 0.5-1 [facility] en-codeine 4-24 [id number] tablets by it y of (TYLENOL-CO 00:00: mouth [place] DEINE #3) 00 every 4 Medical 300-30 mg (four) Branch tablet hours as needed (pain). Pt medicaid is under her maiden name Cyndie Duvall acetaminoph 2020-0 Yes [id number] .5{tbl} Take 0.5-1 [facility] en-codeine 4-24 [id number] tablets by it y of (TYLENOL-CO 00:00: mouth [place] DEINE #3) 00 every 4 Medical 300-30 mg (four) Branch tablet hours as needed (pain). Pt medicaid is under her maiden name Cyndie Duvall acetaminoph 2020-0 Yes [id number] .5{tbl} Take 0.5-1 [facility] en-codeine 4-24 [id number] tablets by it y of (TYLENOL-CO 00:00: mouth [place] DEINE #3) 00 every 4 Medical 300-30 mg (four) Branch tablet hours as needed (pain). Pt medicaid is under her maiden name Cyndie Duvall acetaminoph 2020-0 2020- No [id number] .5{tbl} Take 0.5-1 [facility] en-codeine 4-24 -18 [id number] tablets by i ty of (TYLENOL-CO 00:00: 00:00 mouth [place] DEINE #3[place] 00 :00 every 4 Medical 300-30 mg (four) Branch tablet hours as needed (pain). Pt medicaid is under her maiden name Cyndie Duvall acetaminoph 2020-0 2020- No [id number] .5{tbl} Take 0.5-1 [facility] en-codeine 4-07 12- 72771 tablets by i ty of (TYLENOL-CO 00:00: 00:00 mouth [place] DEINE #3[place] 00 :00 every 4 Medical 300-30 mg (four) Branch tablet hours as needed (pain). Pt medicaid is under her maiden name Cyndie Duvall clotrimazol 2020-0 Yes [id number] Apply to [facility] e 1 % 4-21 area(s) 2 ity of topical 00:00: (two) [place] cream 00 times Medical daily. Branch clotrimazol 2020-0 Yes [id number] Apply to [facility] e 1 % 4-21 area(s) 2 ity of topical 00:00: (two) [place] cream 00 times Medical daily. Branch clotrimazol 2020-0 Yes [id number] Apply to [facility] e 1 % 4-21 area(s) 2 ity of topical 00:00: (two) [place] cream 00 times Medical daily. Branch clotrimazol 2020-0 Yes [id number] Apply to [facility] e 1 % 4-21 area(s) 2 ity of topical 00:00: (two) [place] cream 00 times Medical daily. Branch clotrimazol 2020-0 Yes [id number] Apply to [facility] e 1 % 4-21 area(s) 2 ity of topical 00:00: (two) [place] cream 00 times Medical daily. Branch clotrimazol 2020-0 Yes [id number] Apply to [facility] e 1 % 4-21 area(s) 2 ity of topical 00:00: (two) [place] cream 00 times Medical daily. Branch clotrimazol 2020-0 Yes [id number] Apply to [facility] e 1 % 4-21 area(s) 2 ity of topical 00:00: (two) [place] cream 00 times Medical daily. Branch clotrimazol 2020-0 2020- No [id number] Apply to [facility] e 1 % 4-21 05-19 area(s) 2 ity of topical 00:00: 00:00 (two) [place] cream 00 :00 times Medical daily. Branch ketoconazol 2020-0 Yes [id number] Apply to [facility] e 2 % cream 4-17 area(s) 2 ity of 00:00: (two) [place] 00 times Medical daily. Branch ketoconazol 2020-0 Yes [id number] Apply to [facility] e 2 % cream 4-17 area(s) 2 ity of 00:00: (two) [place] 00 times Medical daily. Branch ketoconazol 2020-0 2020- No [id number] Apply to [facility] e 2 % cream 4-17 04-21 area(s) 2 it y of 00:00: 00:00 (two) [place] 00 :00 times Medical daily. Branch ketoconazol 2020-0 2020- No [id number] Apply to [facility] e 2 % cream 4-17 04-21 area(s) 2 it y of 00:00: 00:00 (two) [place] 00 :00 times Medical daily. Branch LORazepam 1 2020-0 Yes [id number] 1mg Take 1 [facility] mg tablet 4-07 tablet by ity o f 00:00: mouth 2 (two) Medical times per Branch week for Anxiety or Agitation. LORazepam 1 2020-0 Yes [id number] 1mg Take 1 [facility] mg tablet 4-07 tablet by ity o f 00:00: mouth 2 (two) Medical times per Branch week for Anxiety or Agitation. LORazepam 1 2020-0 Yes [id number] 1mg Take 1 [facility] mg tablet 4-07 tablet by ity o f 00:00: mouth 2 (two) Medical times per Branch week for Anxiety or Agitation. LORazepam 1 2020-0 Yes [id number] 1mg Take 1 [facility] mg tablet 4-07 tablet by ity o f 00:00: mouth 2 (two) Medical times per Branch week for Anxiety or Agitation. LORazepam 1 2020-0 Yes [id number] 1mg Take 1 [facility] mg tablet 4-07 tablet by ity o f 00:00: mouth (two) Medical times per Branch week for Anxiety or Agitation. LORazepam 1 2020-0 Yes [id number] 1mg Take 1 [facility] mg tablet 4-07 tablet by ity o f 00:00: mouth (two) Medical times per Branch week for Anxiety or Agitation. LORazepam 1 2020-0 Yes [id number] 1mg Take 1 [facility] mg tablet 4-07 tablet by ity o f 00:00: mouth (two) Medical times per Branch week for Anxiety or Agitation. LORazepam 1 2020-0 Yes [id number] 1mg Take 1 [facility] mg tablet 4-07 tablet by ity o f 00:00: mouth (two) Medical times per Branch week for Anxiety or Agitation. LORazepam 1 2020-0 Yes [id number] 1mg Take 1 [facility] mg tablet 4-07 tablet by ity o f 00:00: mouth (two) Medical times per Branch week for Anxiety or Agitation. LORazepam 1 2020-0 Yes [id number] 1mg Take 1 [facility] mg tablet 4-07 tablet by ity o f 00:00: mouth (two) Medical times per Branch week for Anxiety or Agitation. LORazepam 1 2020-0 Yes [id number] 1mg Take 1 [facility] mg tablet 4-07 tablet by [facility] o f 00:00: mouth (two) Medical times per Branch week for Anxiety or Agitation. LORazepam 1 2020-0 Yes [id number] 1mg Take 1 [facility] mg tablet 4-07 tablet by it[facility] o f 00:00: mouth (two) Medical times per Branch week for Anxiety or Agitation. LORazepam 1 2020-0 2020- No [id number] 1mg Take 1 [facility] mg tablet 4-07 [...] times Medical daily. Branch phenytoin 2020-0 Yes [id number] 400mg Take 4 [facility] Extended 3-24 capsules it[facility] of (DILANTIN) 00:00: by mouth [place] 100 mg 00 daily. Medical capsule Branch FLUoxetine 2020-0 Yes 40mg Take 1 [facility] (PROZAC) 40 3-24 capsule by it y of mg capsule 00:00: mouth 00 daily. Medical Branch cholestyram 2020-0 Yes [id number] 2g Take 0.5 [facility] in[facility] 4 gram 3-24 Packets by ity of powder 00:00: mouth 3 [place] 00 (three) Medical times Branch daily with meals. clonazePAM 2020-0 Yes [id number] 1mg Take 1 [facility] 1 mg tablet 3-24 tablet by ity of 00:00: mouth once 00 daily as Medical needed Branch (panic attack). pantoprazol 2020-0 Yes [id number] 40mg Take 1 [facility] e 40 mg EC 3-24 tablet by ity of tablet 00:00: mouth 2 [place] 00 (two) Medical times Branch daily. famotidine 2020-0 Yes [id number] 20mg Take 1 [facility] (PEPCID AC) 3-24 tablet by ity of 20 mg 00:00: mouth 2 [place] tablet 00 (two) Medical times Branch daily. phenytoin 2020-0 Yes [id number] 400mg Take 4 [facility] Extended 3-24 capsules ity of (DILANTIN) 00:00: by mouth [place] 100 mg 00 daily. Medical capsule Branch FLUoxetine 2020-0 Yes 40mg Take 1 [facility] (PROZAC) 40 3-24 capsule by it y of mg capsule 00:00: mouth 00 daily. Medical Branch cholestyram 2020-0 Yes [id number] 2g Take 0.5 [facility] in[facility] 4 gram 3-24 Packets by ity of powder 00:00: mouth 3 (three) Medical times Branch daily with meals. clonazePAM 2020-0 Yes [id number] 1mg Take 1 [facility] 1 mg tablet 3-24 tablet by ity of 00:00: mouth once 00 daily as Medical needed Branch (panic attack). pantoprazol 2020-0 Yes [id number] 40mg Take 1 [facility] e 40 mg EC 3-24 tablet by ity of tablet 00:00: mouth 2 [place] 00 (two) Medical times Branch daily. famotidine 2020-0 Yes [id number] 20mg Take 1 [facility] (PEPCID AC) 3-24 tablet by ity of 20 mg 00:00: mouth 2 [place] tablet 00 (two) Medical times Branch daily. phenytoin 2020-0 Yes [id number] 400mg Take 4 [facility] Extended 3-24 capsules ity of (DILANTIN) 00:00: by mouth [place] 100 mg 00 daily. Medical capsule [facility] FLUoxetine 2020-0 Yes 40mg Take 1 [facility] (PROZAC) 40 3-24 capsule by it y of mg capsule 00:00: mouth [place] 00 daily. Medical Branch cholestyram 2020-0 Yes [id number] 2g Take 0.5 [facility] in[facility] 4 gram 3-24 Packets by ity of powder 00:00: mouth 3 [place] 00 (three) Medical times Branch daily with meals. clonazePAM 2020-0 Yes [id number] 1mg Take 1 [facility] 1 mg tablet 3-24 tablet by ity of 00:00: mouth once 00 daily as Medical needed Branch (panic attack). pantoprazol 2020-0 Yes [id number] 40mg Take 1 [facility] e 40 mg EC 3-24 tablet by it[facility] of tablet 00:00: mouth 2 [place] 00 (two) Medical times Branch daily. famotidine 2020-0 Yes [id number] 20mg Take 1 [facility] (PEPCID AC) 3-24 tablet by ity of 20 mg 00:00: mouth 2 [place] tablet 00 (two) Medical times Branch daily. phenytoin 2020-0 Yes [id number] 400mg Take 4 [facility] Extended 3-24 capsules ity of (DILANTIN) 00:00: by mouth [place] 100 mg 00 daily. Medical capsule [facility] FLUoxetine 2020-0 Yes 40mg Take 1 [facility] (PROZAC) 40 3-24 capsule by it y of mg capsule 00:00: mouth 00 daily. Medical Branch cholestyram 2020-0 Yes [id number] 2g Take 0.5 [facility] in[facility] 4 gram 3-24 Packets by ity of powder 00:00: mouth 3 00 (three) Medical times Branch daily with meals. clonazePAM 2020-0 Yes [id number] 1mg Take 1 [facility] 1 mg tablet 3-24 tablet by ity of 00:00: mouth once [place] 00 daily as Medical needed Branch (panic attack). pantoprazol 2020-0 Yes [id number] 40mg Take 1 [facility] e 40 mg EC 3-24 tablet by ity of tablet 00:00: mouth 2 [place] 00 (two) Medical times Branch daily. famotidine 2020-0 Yes [id number] 20mg Take 1 [facility] (PEPCID AC) 3-24 tablet by ity of 20 mg 00:00: mouth 2 [place] tablet 00 (two) Medical times Branch daily. phenytoin 2020-0 Yes [id number] 400mg Take 4 [facility] Extended 3-24 capsules ity of (DILANTIN) 00:00: by mouth [place] 100 mg 00 daily. Medical capsule Branch FLUoxetine 2020-0 Yes 40mg Take 1 [facility] (PROZAC) 40 3-24 capsule by it y of mg capsule 00:00: mouth [place] 00 daily. Medical Branch cholestyram 2020-0 Yes [id number] 2g Take 0.5 [facility] in[facility] 4 gram 3-24 Packets by ity of powder 00:00: mouth 3 [place] 00 (three) Medical times Branch daily with meals. clonazePAM 2020-0 Yes [id number] 1mg Take 1 [facility] 1 mg tablet 3-24 tablet by ity of 00:00: mouth once [place] 00 daily as Medical needed Branch (panic attack). pantoprazol 2020-0 Yes [id number] 40mg Take 1 [facility] e 40 mg EC 3-24 tablet by ity of tablet 00:00: mouth 2 [place] 00 (two) Medical times Branch daily. famotidine 2020-0 Yes [id number] 20mg Take 1 [facility] (PEPCID AC) 3-24 tablet by ity of 20 mg 00:00: mouth 2 [place] tablet 00 (two) Medical times Branch daily. phenytoin 2020-0 Yes [id number] 400mg Take 4 [facility] Extended 3-24 capsules ity of (DILANTIN) 00:00: by mouth [place] 100 mg 00 daily. Medical capsule Branch FLUoxetine 2020-0 Yes 40mg Take 1 [facility] (PROZAC) 40 3-24 capsule by it y of mg capsule 00:00: mouth [place] 00 daily. Medical Branch cholestyram 2020-0 Yes [id number] 2g Take 0.5 [facility] in[facility] 4 gram 3-24 Packets by ity of powder 00:00: mouth 3 [place] 00 (three) Medical times Branch daily with meals. clonazePAM 2020-0 Yes [id number] 1mg Take 1 [facility] 1 mg tablet 3-24 tablet by ity of 00:00: mouth once [place] 00 daily as Medical needed Branch (panic attack). pantoprazol 2020-0 Yes [id number] 40mg Take 1 [facility] e 40 mg EC 3-24 tablet by ity of tablet 00:00: mouth 2 [place] 00 (two) Medical times Branch daily. famotidine 2020-0 Yes [id number] 20mg Take 1 [facility] (PEPCID AC) 3-24 tablet by ity of 20 mg 00:00: mouth 2 [place] tablet 00 (two) Medical times Branch daily. phenytoin 2020-0 Yes [id number] 400mg Take 4 [facility] Extended 3-24 capsules ity of (DILANTIN) 00:00: by mouth [place] 100 mg 00 daily. Medical capsule Branch FLUoxetine 2020-0 Yes 40mg Take 1 [facility] (PROZAC) 40 3-24 capsule by it y of mg capsule 00:00: mouth [place] 00 daily. Medical Branch cholestyram 2020-0 Yes [id number] 2g Take 0.5 [facility] in[facility] 4 gram 3-24 Packets by ity of powder 00:00: mouth 3 (three) Medical times Branch daily with meals. clonazePAM 2020-0 Yes [id number] 1mg Take 1 [facility] 1 mg tablet 3-24 tablet by ity of 00:00: mouth once 00 daily as Medical needed Branch (panic attack). pantoprazol 2020-0 Yes [id number] 40mg Take 1 [facility] e 40 mg EC 3-24 tablet by ity of tablet 00:00: mouth 2 [place] 00 (two) Medical times Branch daily. famotidine 2020-0 Yes [id number] 20mg Take 1 [facility] (PEPCID AC) 3-24 tablet by ity of 20 mg 00:00: mouth 2 [place] tablet 00 (two) Medical times Branch daily. phenytoin 2020-0 Yes [id number] 400mg Take 4 [facility] Extended 3-24 capsules ity of (DILANTIN) 00:00: by mouth [place] 100 mg 00 daily. Medical capsule Branch FLUoxetine 2020-0 Yes 40mg Take 1 [facility] (PROZAC) 40 3-24 capsule by it y of mg capsule 00:00: mouth [place] 00 daily. Medical Branch cholestyram 2020-0 Yes [id number] 2g Take 0.5 [facility] in[facility] 4 gram 3-24 Packets by ity of powder 00:00: mouth 3 00 (three) Medical times Branch daily with meals. clonazePAM 2020-0 Yes [id number] 1mg Take 1 [facility] 1 mg tablet 3-24 tablet by ity of 00:00: mouth once [place] 00 daily as Medical needed Branch (panic attack). pantoprazol 2020-0 Yes [id number] 40mg Take 1 [facility] e 40 mg EC 3-24 tablet by ity of tablet 00:00: mouth 2 [place] 00 (two) Medical times Branch daily. famotidine 2020-0 Yes [id number] 20mg Take 1 [facility] (PEPCID AC) 3-24 tablet by ity of 20 mg 00:00: mouth 2 [place] tablet 00 (two) Medical times Branch daily. phenytoin 2020-0 Yes [id number] 400mg Take 4 [facility] Extended 3-24 capsules ity of (DILANTIN) 00:00: by mouth [place] 100 mg 00 daily. Medical capsule Branch FLUoxetine 2020-0 Yes 40mg Take 1 [facility] (PROZAC) 40 3-24 capsule by it y of mg capsule 00:00: mouth [place] 00 daily. Medical Branch cholestyram 2020-0 Yes [id number] 2g Take 0.5 [facility] in[facility] 4 gram 3-24 Packets by ity of powder 00:00: mouth 3 [place] 00 (three) Medical times Branch daily with meals. pantoprazol 2020-0 Yes [id number] 40mg Take 1 [facility] e 40 mg EC 3-24 tablet by ity of tablet 00:00: mouth 2 [place] 00 (two) Medical times Branch daily. famotidine 2020-0 Yes [id number] 20mg Take 1 [facility] (PEPCID AC) 3-24 tablet by ity of 20 mg 00:00: mouth 2 [place] tablet 00 (two) Medical times Branch daily. phenytoin 2020-0 Yes [id number] 400mg Take 4 [facility] Extended 3-24 capsules ity of (DILANTIN) 00:00: by mouth [place] 100 mg 00 daily. Medical capsule Branch FLUoxetine 2020-0 Yes 40mg Take 1 [facility] (PROZAC) 40 3-24 capsule by it y of mg capsule 00:00: mouth [place] 00 daily. Medical Branch cholestyram 2020-0 Yes [id number] 2g Take 0.5 [facility] in[facility] 4 gram 3-24 Packets by ity of powder 00:00: mouth 3 [place] 00 (three) Medical times Branch daily with meals. pantoprazol 2020-0 Yes [id number] 40mg Take 1 [facility] e 40 mg EC 3-24 tablet by ity of tablet 00:00: mouth 2 [place] 00 (two) Medical times Branch daily. famotidine 2020-0 Yes [id number] 20mg Take 1 [facility] (PEPCID AC) 3-24 tablet by ity of 20 mg 00:00: mouth 2 [place] tablet 00 (two) Medical times Branch daily. phenytoin 2020-0 Yes [id number] 400mg Take 4 [facility] Extended 3-24 capsules ity of (DILANTIN) 00:00: by mouth [place] 100 mg 00 daily. Medical capsule Branch FLUoxetine 2020-0 Yes 40mg Take 1 [facility] (PROZAC) 40 3-24 capsule by it y of mg capsule 00:00: mouth 00 daily. Medical Branch cholestyram 2020-0 Yes [id number] 2g Take 0.5 [facility] in[facility] 4 gram 3-24 Packets by ity of powder 00:00: mouth 3 (three) Medical times Branch daily with meals. pantoprazol 2020-0 Yes [id number] 40mg Take 1 [facility] e 40 mg EC 3-24 tablet by ity of tablet 00:00: mouth 2 [place] (two) Medical times Branch daily. famotidine 2020-0 Yes [id number] 20mg Take 1 [facility] (PEPCID AC) 3-24 tablet by ity of 20 mg 00:00: mouth 2 [place] tablet 00 (two) Medical times Branch daily. phenytoin 2020-0 Yes [id number] 400mg Take 4 [facility] Extended 3-24 capsules ity of (DILANTIN) 00:00: by mouth [place] 100 mg 00 daily. Medical capsule Branch FLUoxetine 2020-0 Yes 40mg Take 1 [facility] (PROZAC) 40 3-24 capsule by it y of mg capsule 00:00: mouth 00 daily. Medical Branch cholestyram 2020-0 Yes [id number] 2g Take 0.5 [facility] in[facility] 4 gram 3-24 Packets by ity of powder 00:00: mouth 3 (three) Medical times Branch daily with meals. pantoprazol 2020-0 Yes [id number] 40mg Take 1 [facility] e 40 mg EC 3-24 tablet by ity of tablet 00:00: mouth 2 [place] 00 (two) Medical times Branch daily. famotidine 2020-0 Yes [id number] 20mg Take 1 [facility] (PEPCID AC) 3-24 tablet by ity of 20 mg 00:00: mouth 2 [place] tablet 00 (two) Medical times Branch daily. phenytoin 2020-0 Yes [id number] 400mg Take 4 [facility] Extended 3-24 capsules ity of (DILANTIN) 00:00: by mouth [place] 100 mg 00 daily. Medical capsule Branch FLUoxetine 2020-0 Yes 40mg Take 1 [facility] (PROZAC) 40 3-24 capsule by it y of mg capsule 00:00: mouth [place] 00 daily. Medical Branch cholestyram 2020-0 Yes [id number] 2g Take 0.5 [facility] in[facility] 4 gram 3-24 Packets by ity of powder 00:00: mouth 3 (three) Medical times Branch daily with meals. pantoprazol 2020-0 Yes [id number] 40mg Take 1 [facility] e 40 mg EC 3-24 tablet by ity of tablet 00:00: mouth 2 [place] (two) Medical times Branch daily. famotidine 2020-0 Yes [id number] 20mg Take 1 [facility] (PEPCID AC) 3-24 tablet by ity of 20 mg 00:00: mouth 2 [place] tablet (two) Medical times Branch daily. phenytoin 2020-0 Yes [id number] 400mg Take 4 [facility] Extended 3-24 capsules ity of (DILANTIN) 00:00: by mouth [place] 100 mg 00 daily. Medical capsule Branch FLUoxetine 2020-0 Yes 40mg Take 1 [facility] (PROZAC) 40 3-24 capsule by it y of mg capsule 00:00: mouth [place] 00 daily. Medical Branch cholestyram 2020-0 Yes [id number] 2g Take 0.5 [facility] in[facility] 4 gram 3-24 Packets by ity of powder 00:00: mouth 3 (three) Medical times Branch daily with meals. pantoprazol 2020-0 Yes [id number] 40mg Take 1 [facility] e 40 mg EC 3-24 tablet by ity of tablet 00:00: mouth 2 [place] 00 (two) Medical times Branch daily. famotidine 2020-0 Yes [id number] 20mg Take 1 [facility] (PEPCID AC) 3-24 tablet by ity of 20 mg 00:00: mouth 2 [place] tablet 00 (two) Medical times Branch daily. phenytoin 2020-0 Yes [id number] 400mg Take 4 [facility] Extended 3-24 capsules ity of (DILANTIN) 00:00: by mouth [place] 100 mg 00 daily. Medical capsule Branch FLUoxetine 2020-0 Yes 40mg Take 1 [facility] (PROZAC) 40 3-24 capsule by it y of mg capsule 00:00: mouth [place] 00 daily. Medical Branch cholestyram 2020-0 Yes [id number] 2g Take 0.5 [facility] in[facility] 4 gram 3-24 Packets by ity of powder 00:00: mouth 3 (three) Medical times Branch daily with meals. pantoprazol 2020-0 Yes [id number] 40mg Take 1 [facility] e 40 mg EC 3-24 tablet by ity of tablet 00:00: mouth 2 [place] 00 (two) Medical times Branch daily. famotidine 2020-0 Yes [id number] 20mg Take 1 [facility] (PEPCID AC) 3-24 tablet by ity of 20 mg 00:00: mouth 2 [place] tablet 00 (two) Medical times Branch daily. phenytoin 2020-0 Yes [id number] 400mg Take 4 [facility] Extended 3-24 capsules ity of (DILANTIN) 00:00: by mouth [place] 100 mg 00 daily. Medical capsule Branch FLUoxetine 2020-0 Yes 40mg Take 1 [facility] (PROZAC) 40 3-24 capsule by it y of mg capsule 00:00: mouth 00 daily. Medical Branch cholestyram 2020-0 Yes [id number] 2g Take 0.5 [facility] in[facility] 4 gram 3-24 Packets by ity of powder 00:00: mouth 3 (three) Medical times Branch daily with meals. pantoprazol 2020-0 Yes [id number] 40mg Take 1 [facility] e 40 mg EC 3-24 tablet by ity of tablet 00:00: mouth 2 [place] 00 (two) Medical times Branch daily. famotidine 2020-0 Yes [id number] 20mg Take 1 [facility] (PEPCID AC) 3-24 tablet by ity of 20 mg 00:00: mouth 2 [place] tablet 00 (two) Medical times Branch daily. phenytoin 2020-0 Yes [id number] 400mg Take 4 [facility] Extended 3-24 capsules ity of (DILANTIN) 00:00: by mouth [place] 100 mg 00 daily. Medical capsule Branch FLUoxetine 2020-0 Yes 40mg Take 1 [facility] (PROZAC) 40 3-24 capsule by it y of mg capsule 00:00: mouth [place] 00 daily. Medical Branch cholestyram 2020-0 Yes [id number] 2g Take 0.5 [facility] in[facility] 4 gram 3-24 Packets by ity of powder 00:00: mouth 3 (three) Medical times Branch daily with meals. pantoprazol 2020-0 Yes [id number] 40mg Take 1 [facility] e 40 mg EC 3-24 tablet by ity of tablet 00:00: mouth 2 [place] 00 (two) Medical times Branch daily. famotidine 2020-0 Yes [id number] 20mg Take 1 [facility] (PEPCID AC) 3-24 tablet by ity of 20 mg 00:00: mouth 2 [place] tablet 00 (two) Medical times Branch daily. phenytoin 2020-0 Yes [id number] 400mg Take 4 [facility] Extended 3-24 capsules ity of (DILANTIN) 00:00: by mouth [place] 100 mg 00 daily. Medical capsule Branch FLUoxetine 2020-0 Yes 40mg Take 1 [facility] (PROZAC) 40 3-24 capsule by it y of mg capsule 00:00: mouth 00 daily. Medical Branch cholestyram 2020-0 Yes [id number] 2g Take 0.5 [facility] in[facility] 4 gram 3-24 Packets by ity of powder 00:00: mouth (three) Medical times Branch daily with meals. pantoprazol 2020-0 Yes [id number] 40mg Take 1 [facility] e 40 mg EC 3-24 tablet by ity of tablet 00:00: mouth 2 [place] 00 (two) Medical times Branch daily. famotidine 2020-0 Yes [id number] 20mg Take 1 [facility] (PEPCID AC) 3-24 tablet by ity of 20 mg 00:00: mouth 2 [place] tablet 00 (two) Medical times Branch daily. phenytoin 2020-0 Yes [id number] 400mg Take 4 [facility] Extended 3-24 capsules ity of (DILANTIN) 00:00: by mouth [place] 100 mg 00 daily. Medical capsule Branch FLUoxetine 2020-0 Yes 40mg Take 1 [facility] (PROZAC) 40 3-24 capsule by it y of mg capsule 00:00: mouth 00 daily. Medical Branch cholestyram 2020-0 Yes [id number] 2g Take 0.5 [facility] in[facility] 4 gram 3-24 Packets by ity of powder 00:00: mouth 3 [place] 00 (three) Medical times Branch daily with meals. pantoprazol 2020-0 Yes [id number] 40mg Take 1 [facility] e 40 mg EC 3-24 tablet by ity of tablet 00:00: mouth 2 [place] 00 (two) Medical times Branch daily. famotidine 2020-0 Yes [id number] 20mg Take 1 [facility] (PEPCID AC) 3-24 tablet by ity of 20 mg 00:00: mouth 2 [place] tablet 00 (two) Medical times Branch daily. phenytoin 2020-0 Yes [id number] 400mg Take 4 [facility] Extended 3-24 capsules ity of (DILANTIN) 00:00: by mouth [place] 100 mg 00 daily. Medical capsule Branch FLUoxetine 2020-0 Yes 40mg Take 1 [facility] (PROZAC) 40 3-24 capsule by it y of mg capsule 00:00: mouth [place] 00 daily. Medical Branch cholestyram 2020-0 Yes [id number] 2g Take 0.5 [facility] in[facility] 4 gram 3-24 Packets by ity of powder 00:00: mouth 3 (three) Medical times Branch daily with meals. famotidine 2020-0 Yes [id number] 20mg Take 1 [facility] (PEPCID AC) 3-24 tablet by ity of 20 mg 00:00: mouth 2 [place] tablet 00 (two) Medical times Branch daily. phenytoin 2020-0 Yes [id number] 400mg Take 4 [facility] Extended 3-24 capsules ity of (DILANTIN) 00:00: by mouth [place] 100 mg 00 daily. Medical capsule Branch FLUoxetine 2020-0 Yes 40mg Take 1 [facility] (PROZAC) 40 3-24 capsule by it y of mg capsule 00:00: mouth [place] 00 daily. Medical Branch cholestyram 2020-0 Yes [id number] 2g Take 0.5 [facility] in[facility] 4 gram 3-24 Packets by ity of powder 00:00: mouth 3 (three) Medical times Branch daily with meals. famotidine 2020-0 Yes [id number] 20mg Take 1 [facility] (PEPCID AC) 3-24 tablet by ity of 20 mg 00:00: mouth 2 [place] tablet 00 (two) Medical times Branch daily. phenytoin 2020-0 Yes [id number] 400mg Take 4 [facility] Extended 3-24 capsules ity of (DILANTIN) 00:00: by mouth [place] 100 mg 00 daily. Medical capsule Branch FLUoxetine 2020-0 Yes 40mg Take 1 [facility] (PROZAC) 40 3-24 capsule by it y of mg capsule 00:00: mouth [place] 00 daily. Medical Branch cholestyram 2020-0 Yes [id number] 2g Take 0.5 [facility] in[facility] 4 gram 3-24 Packets by ity of powder 00:00: mouth 3 [place] 00 (three) Medical times Branch daily with meals. famotidine 2020-0 Yes [id number] 20mg Take 1 [facility] (PEPCID AC) 3-24 tablet by ity of 20 mg 00:00: mouth 2 [place] tablet 00 (two) Medical times Branch daily. famotidine 2020-0 Yes [id number] 20mg Take 1 [facility] (PEPCID AC) 3-24 tablet by ity of 20 mg 00:00: mouth 2 [place] tablet 00 (two) Medical times Branch daily. famotidine 2020-0 Yes [id number] 20mg Take 1 [facility] (PEPCID AC) 3-24 tablet by ity of 20 mg 00:00: mouth 2 [place] tablet 00 (two) Medical times Branch daily. famotidine 2020-0 Yes [id number] 20mg Take 1 [facility] (PEPCID AC) 3-24 tablet by ity of 20 mg 00:00: mouth 2 [place] tablet 00 (two) Medical times Branch daily. famotidine 2020-0 Yes [id number] 20mg Take 1 [facility] (PEPCID AC) 3-24 tablet by ity of 20 mg 00:00: mouth 2 [place] tablet 00 (two) Medical times Branch daily. famotidine 2020-0 Yes [id number] 20mg Take 1 [facility] (PEPCID AC) 3-24 tablet by ity of 20 mg 00:00: mouth 2 [place] tablet 00 (two) Medical times Branch daily. famotidine 2020-0 Yes [id number] 20mg Take 1 [facility] (PEPCID AC) 3-24 tablet by ity of 20 mg 00:00: mouth 2 [place] tablet 00 (two) Medical times Branch daily. famotidine 2020-0 Yes [id number] 20mg Take 1 [facility] (PEPCID AC) 3-24 tablet by ity of 20 mg 00:00: mouth 2 [place] tablet 00 (two) Medical times Branch daily. famotidine 2020-0 Yes [id number] 20mg Take 1 [facility] (PEPCID AC) 3-24 tablet by ity of 20 mg 00:00: mouth 2 [place] tablet 00 (two) Medical times Branch daily. famotidine 2020-0 Yes [id number] 20mg Take 1 [facility] (PEPCID AC) 3-24 tablet by ity of 20 mg 00:00: mouth 2 [place] tablet 00 (two) Medical times Branch daily. famotidine 2020-0 Yes [id number] 20mg Take 1 [facility] (PEPCID AC) 3-24 tablet by ity of 20 mg 00:00: mouth 2 [place] tablet 00 (two) Medical times Branch daily. famotidine 2020-0 Yes [id number] 20mg Take 1 [facility] (PEPCID AC) 3-24 tablet by ity of 20 mg 00:00: mouth 2 [place] tablet 00 (two) Medical times Branch daily. famotidine 2020-0 Yes [id number] 20mg Take 1 [facility] (PEPCID AC) 3-24 tablet by ity of 20 mg 00:00: mouth 2 [place] tablet 00 (two) Medical times Branch daily. famotidine 2020-0 Yes [id number] 20mg Take 1 [facility] (PEPCID AC) 3-24 tablet by ity of 20 mg 00:00: mouth 2 [place] tablet 00 (two) Medical times Branch daily. famotidine 2020-0 Yes [id number] 20mg Take 1 [facility] (PEPCID AC) 3-24 tablet by ity of 20 mg 00:00: mouth 2 [place] tablet 00 (two) Medical times Branch daily. famotidine 2020-0 Yes [id number] 20mg Take 1 [facility] (PEPCID AC) 3-24 tablet by ity of 20 mg 00:00: mouth 2 [place] tablet 00 (two) Medical times Branch daily. famotidine 2020-0 Yes [id number] 20mg Take 1 [facility] (PEPCID AC) 3-24 tablet by ity of 20 mg 00:00: mouth 2 [place] tablet 00 (two) Medical times Branch daily. famotidine 2020-0 Yes [id number] 20mg Take 1 [facility] (PEPCID AC) 3-24 tablet by ity of 20 mg 00:00: mouth 2 [place] tablet 00 (two) Medical times Branch daily. famotidine 2020-0 Yes [id number] 20mg Take 1 [facility] (PEPCID AC) 3-24 tablet by ity of 20 mg 00:00: mouth 2 [place] tablet 00 (two) Medical times Branch daily. famotidine 2020-0 Yes [id number] 20mg Take 1 [facility] (PEPCID AC) 3-24 tablet by ity of 20 mg 00:00: mouth 2 [place] tablet 00 (two) Medical times Branch daily. pantoprazol 2020-0 Yes [id number] 40mg Take 1 [facility] e 40 mg EC 3-24 tablet by ity of tablet 00:00: mouth 2 [place] 00 (two) Medical times Branch daily. famotidine 2020-0 Yes [id number] 20mg Take 1 [facility] (PEPCID AC) 3-24 tablet by ity of 20 mg 00:00: mouth 2 [place] tablet 00 (two) Medical times Branch daily. phenytoin 2020-0 Yes [id number] 400mg Take 4 [facility] Extended 3-24 capsules ity of (DILANTIN) 00:00: by mouth [place] 100 mg 00 daily. Medical capsule [facility] FLUoxetine 2020-0 Yes 40mg Take 1 [facility] (PROZAC) 40 3-24 capsule by it y of mg capsule 00:00: mouth [place] 00 daily. Medical Branch cholestyram 2020-0 Yes [id number] 2g Take 0.5 [facility] in[facility] 4 gram 3-24 Packets by ity of powder 00:00: mouth 3 [place] 00 (three) Medical times Branch daily with meals. clonazePAM 2020-0 Yes [id number] 1mg Take 1 [facility] 1 mg tablet 3-24 tablet by ity of 00:00: mouth once 00 daily as Medical needed Branch (panic attack). pantoprazol 2020-0 Yes [id number] 40mg Take 1 [facility] e 40 mg EC 3-24 tablet by ity of tablet 00:00: mouth 2 [place] 00 (two) Medical times Branch daily. famotidine 2020-0 Yes [id number] 20mg Take 1 [facility] (PEPCID AC) 3-24 tablet by ity of 20 mg 00:00: mouth 2 [place] tablet 00 (two) Medical times Branch daily. famotidine 2020-0 2023- No [id number] 20mg Take 1 [facility] (PEPCID AC) 3-24 01-10 tablet by it y of 20 mg 00:00: 00:00 mouth 2 [place] tablet 00 :00 (two) Medical times Branch daily. famotidine 2020-0 2023- No [id number] 20mg Take 1 [facility] (PEPCID AC) 07-07-10 tablet by it y of 20 mg 00:00: 00:00 mouth 2 [place] tablet 00 :00 (two) Medical times Branch daily. famotidine 2019-2022- No [id number] 20mg Take 1 [facility] (PEPCID AC) 07-07- tablet by it y of 20 mg 00:00: 00:00 mouth 2 [place] tablet 00 :00 (two) Medical times Branch daily. famotidine 2019-2022- No [id number] 20mg Take 1 [facility] (PEPCID AC) 07-07- tablet by it y of 20 mg 00:00: 00:00 mouth 2 [place] tablet 00 :00 (two) Medical times Branch daily. famotidine 2022- No [id number] 20mg Take 1 [facility] (PEPCID AC) 07-07 tablet by it y of 20 mg 00:00: 00:00 mouth 2 [place] tablet 00 :00 (two) Medical times Branch daily. famotidine 2022- No [id number] 20mg Take 1 [facility] (PEPCID AC) 07-07 tablet by it y of 20 mg 00:00: 00:00 mouth 2 [place] tablet 00 :00 (two) Medical times Branch daily. phenytoin 2019- No [id number] 400mg Take 4 [facility] Extended 07-07- capsules ity of (DILANTIN) 00:00: 00:00 by mouth [place] 100 mg 00 :00 daily. Medical capsule Branch FLUoxetine 2020- No 40mg Take 1 [facility] ers (PROZAC) 40 07-07- capsule by i ty of mg capsule 00:00: 00:00 mouth [place] 00 :00 daily. Medical Branch cholestyram 2019- 2020- No [id number] 2g Take 0.5 [facility] ine 4 gram 07-07- Packets by it y of powder 00:00: 00:00 mouth 3 [place] 00 :00 (three) Medical times Branch daily with meals. pantoprazol 2019-2019- No [id number] 40mg Take 1 [facility] e 40 mg EC 07-07-12 tablet by ity of tablet 00:00: 00:00 mouth 2 [place] 00 :00 (two) Medical times Branch daily. clonazePAM 2020-0 2020- No [id number] 1mg Take 1 [facility] 1 mg tablet 07-07- tablet by it y of 00:00: 00:00 mouth once [place] 00 :00 daily as Medical needed Branch (panic attack). clonazePAM 2019-0 2020- No [id number] 1mg Take 1 Univers 1 mg tablet 3-24 tablet by it y of 00:00: 00:00 mouth 3 [place] 00 :00 (three) Medical times Branch daily. levothyroxi 2020-0 Yes [id number] 150ug Take 1 Univers ne 150 mcg 3-12 tablet by ity of tablet 00:00: mouth [place] 00 every Medical morning. Branch levothyroxi 2020-0 Yes [id number] 150ug Take 1 Univers ne 150 mcg 3-12 tablet by ity of tablet 00:00: mouth [place] 00 every Medical morning. Branch levothyroxi 2020-0 Yes [id number] 150ug Take 1 Univers ne 150 mcg 3-12 tablet by ity of tablet 00:00: mouth [place] 00 every Medical morning. Branch levothyroxi 2020-0 Yes [id number] 150ug Take 1 Univers ne 150 mcg 3-12 tablet by ity of tablet 00:00: mouth [place] 00 every Medical morning. Branch levothyroxi 2020-0 Yes [id number] 150ug Take 1 Univers ne 150 mcg 3-12 tablet by ity of tablet 00:00: mouth [place] 00 every Medical morning. Branch levothyroxi 2020-0 Yes [id number] 150ug Take 1 Univers ne 150 mcg 3-12 tablet by ity of tablet 00:00: mouth [place] 00 every Medical morning. Branch levothyroxi 2020-0 Yes [id number] 150ug Take 1 Univers ne 150 mcg 3-12 tablet by ity of tablet 00:00: mouth [place] 00 every Medical morning. Branch levothyroxi 2020-0 Yes [id number] 150ug Take 1 Univers ne 150 mcg 3-12 tablet by ity of tablet 00:00: mouth [place] 00 every Medical morning. Branch levothyroxi 2020-0 Yes [id number] 150ug Take 1 Univers ne 150 mcg 3-12 tablet by ity of tablet 00:00: mouth [place] 00 every Medical morning. Branch levothyroxi 2020-0 Yes [id number] 150ug Take 1 Univers ne 150 mcg 3-12 tablet by ity of tablet 00:00: mouth [place] 00 every Medical morning. Branch levothyroxi 2020-0 Yes [id number] 150ug Take 1 Univers ne 150 mcg 3-12 tablet by ity of tablet 00:00: mouth [place] 00 every Medical morning. Branch levothyroxi 2020-0 Yes [id number] 150ug Take 1 Univers ne 150 mcg 3-12 tablet by ity of tablet 00:00: mouth [place] 00 every Medical morning. Branch levothyroxi 2020-0 Yes [id number] 150ug Take 1 Univers ne 150 mcg 3-12 tablet by ity of tablet 00:00: mouth [place] 00 every Medical morning. Branch levothyroxi 2020-0 Yes [id number] 150ug Take 1 Univers ne 150 mcg 3-12 tablet by ity of tablet 00:00: mouth [place] 00 every Medical morning. Branch levothyroxi 2020-0 Yes [id number] 150ug Take 1 Univers ne 150 mcg 3-12 tablet by ity of tablet 00:00: mouth [place] 00 every Medical morning. Branch levothyroxi 2020-0 Yes [id number] 150ug Take 1 [facility] ne 150 mcg 3-12 tablet by ity of tablet 00:00: mouth [place] 00 every Medical morning. Branch levothyroxi 2020-0 Yes [id number] 150ug Take 1 [facility] ne 150 mcg 3-12 tablet by ity of tablet 00:00: mouth [place] 00 every Medical morning. Branch levothyroxi 2020-0 Yes [id number] 150ug Take 1 [facility] ne 150 mcg 3-12 tablet by ity of tablet 00:00: mouth [place] 00 every Medical morning. Branch levothyroxi 2020-0 Yes [id number] 150ug Take 1 [facility] ne 150 mcg 3-12 tablet by ity of tablet 00:00: mouth [place] 00 every Medical morning. Branch levothyroxi 2020-0 Yes [id number] 150ug Take 1 [facility] ne 150 mcg 3-12 tablet by ity of tablet 00:00: mouth [place] 00 every Medical morning. Branch levothyroxi 2020-0 Yes [id number] 150ug Take 1 [facility] ne 150 mcg 3-12 tablet by ity of tablet 00:00: mouth [place] 00 every Medical morning. Branch levothyroxi 2020-0 Yes [id number] 150ug Take 1 [facility] ne 150 mcg 3-12 tablet by ity of tablet 00:00: mouth [place] 00 every Medical morning. Branch levothyroxi 2020-0 2020- No [id number] 150ug Take 1 [facility] ne 150 mcg 06-2524 tablet by ity of tablet 00:00: 00:00 mouth [place] 00 :00 every Medical morning. Branch levothyroxi 2020-0 2020- No [id number] 150ug Take 1 [facility] ne 150 mcg 3-24 tablet by ity of tablet 00:00: 00:00 mouth [place] 00 :00 every Medical morning. Branch oseltamivir 2020-0 Yes [id number] 75mg Take 1 U nivers 75 mg 1-28 capsule by ity of capsule 00:00: mouth [place] (two) Medical times Branch daily. oseltamivir 2020-0 Yes [id number] 75mg Take 1 U nivers 75 mg 1-28 capsule by ity of capsule 00:00: mouth [place] (two) Medical times Branch daily. oseltamivir 2020-0 Yes [id number] 75mg Take 1 U nivers 75 mg 1-28 capsule by ity of capsule 00:00: mouth [place] (two) Medical times Branch daily. oseltamivir 2020-0 Yes [id number] 75mg Take 1 U nivers 75 mg 1-28 capsule by ity of capsule 00:00: mouth [place] (two) Medical times Branch daily. oseltamivir 2020-0 Yes [id number] 75mg Take 1 U nivers 75 mg 1-28 capsule by ity of capsule 00:00: mouth [place] (two) Medical times Branch daily. oseltamivir 2020-0 Yes [id number] 75mg Take 1 U nivers 75 mg 1-28 capsule by ity of capsule 00:00: mouth [place] (two) Medical times Branch daily. oseltamivir 2020-0 Yes [id number] 75mg Take 1 U nivers 75 mg 1-28 capsule by ity of capsule 00:00: mouth [place] (two) Medical times Branch daily. oseltamivir 2020-0 Yes [id number] 75mg Take 1 U nivers 75 mg 1-28 capsule by ity of capsule 00:00: mouth [place] (two) Medical times Branch daily. oseltamivir 2020-0 Yes [id number] 75mg Take 1 U nivers 75 mg 1-28 capsule by ity of capsule 00:00: mouth [place] (two) Medical times Branch daily. oseltamivir 2020-0 Yes [id number] 75mg Take 1 U nivers 75 mg 1-28 capsule by ity of capsule 00:00: mouth (two) Medical times Branch daily. oseltamivir 2020-0 Yes [id number] 75mg Take 1 U nivers 75 mg 1-28 capsule by ity of capsule 00:00: mouth (two) Medical times Branch daily. oseltamivir 2020-0 Yes [id number] 75mg Take 1 U nivers 75 mg 1-28 capsule by ity of capsule 00:00: mouth [place] (two) Medical times Branch daily. oseltamivir 2020-0 Yes [id number] 75mg Take 1 U nivers 75 mg 1-28 capsule by ity of capsule 00:00: mouth [place] (two) Medical times Branch daily. oseltamivir 2020-0 Yes [id number] 75mg Take 1 U nivers 75 mg 1-28 capsule by ity of capsule 00:00: mouth [place] (two) Medical times Branch daily. oseltamivir 2020-0 Yes [id number] 75mg Take 1 U nivers 75 mg 1-28 capsule by ity of capsule 00:00: mouth [place] (two) Medical times Branch daily. oseltamivir 2020-0 Yes [id number] 75mg Take 1 U nivers 75 mg 1-28 capsule by ity of capsule 00:00: mouth [place] (two) Medical times Branch daily. oseltamivir 2020-0 Yes [id number] 75mg Take 1 U nivers 75 mg 1-28 capsule by ity of capsule 00:00: mouth [place] (two) Medical times Branch daily. oseltamivir 2020-0 Yes [id number] 75mg Take 1 U nivers 75 mg 1-28 capsule by ity of capsule 00:00: mouth [place] (two) Medical times Branch daily. oseltamivir 2020-0 Yes [id number] 75mg Take 1 U nivers 75 mg 1-28 capsule by ity of capsule 00:00: mouth [place] (two) Medical times Branch daily. oseltamivir 2020-0 Yes [id number] 75mg Take 1 U nivers 75 mg 1-28 capsule by ity of capsule 00:00: mouth [place] (two) Medical times Branch daily. oseltamivir 2020-0 Yes [id number] 75mg Take 1 U nivers 75 mg 1-28 capsule by ity of capsule 00:00: mouth 2 [place] 00 (two) Medical times Branch daily. oseltamivir 2020-0 Yes [id number] 75mg Take 1 U nivers 75 mg 1-28 capsule by ity of capsule 00:00: mouth 2 [place] 00 (two) Medical times Branch daily. oseltamivir 2020-0 Yes [id number] 75mg Take 1 U nivers 75 mg 1-28 capsule by ity of capsule 00:00: mouth 2 [place] 00 (two) Medical times Branch daily. oseltamivir 2020-0 Yes [id number] 75mg Take 1 U nivers 75 mg 1-28 capsule by ity of capsule 00:00: mouth 2 [place] 00 (two) Medical times Branch daily. oseltamivir 2020-0 Yes [id number] 75mg Take 1 U nivers 75 mg 1-28 capsule by ity of capsule 00:00: mouth [address] [place] [address] 00 (two) Medical times Branch daily. oseltamivir 2020-0 Yes [id number] 75mg Take 1 U nivers 75 mg 1-28 capsule by ity of capsule 00:00: mouth [address] [place] [address] 00 (two) Medical times Branch daily. oseltamivir 2020-0 Yes [id number] 75mg Take 1 U nivers 75 mg 1-28 capsule by ity of capsule 00:00: mouth [address] [place] [address] 00 (two) Medical times Branch daily. oseltamivir 2020-0 Yes [id number] 75mg Take 1 U nivers 75 mg 1-28 capsule by ity of capsule 00:00: mouth 2 [place] 00 (two) Medical times Branch daily. oseltamivir 2020-0 2020- No [id number] 75mg Take 1 Univers 75 mg 1-28 05-19 capsule by ity of capsule 00:00: 00:[address] [place] [address] 00 :00 (two) Medical times Branch daily. pantoprazol 2018- 2020- No [id number] 40mg Take 1 Univers e 40 mg EC 2-20 03-20 tablet by ity of tablet 00:00: 04:59 mouth [place] 00 :00 daily for Medical 90 days. Branch pantoprazol 2018-04 2020- No [id number] 40mg Take 1 Univers e 40 mg EC 2-20 03-20 tablet by ity of tablet 00:00: 04:59 mouth [place] 00 :00 daily for Medical 90 days. Branch pantoprazol 2018-04 2020- No [id number] 40mg Take 1 Univers e 40 mg [...] for Wheezing or Shortness of Breath. phenytoin Yes 100mg Take 1 Unive rs Extended [...] by ity of tablet 00:00: mouth at [place] 00 bedtime. Medical Branch albuterol Yes 2{puff} Inhale 2 U nivers 90 5-17 Puffs ity of mcg/actuati 00:00: every 6 [place] as on inhaler 00 (six) Medical hours as Branch needed for Wheezing or Shortness of Breath. pantoprazol Yes 40mg Take 1 Univ ers e 40 mg EC 5-17 tablet by ity of tablet 00:00: mouth [place] 00 daily. Medical Branch clonazePAM Yes [id number] 1 tablet Univers 1 mg tablet 5-17 [...] by ity of tablet 00:00: mouth at [place] 00 bedtime. Medical Branch pantoprazol Yes 40mg Take 1 Univ ers e 40 mg EC 5-17 tablet by ity of tablet 00:00: mouth [place] 00 daily. Medical Branch albuterol Yes 2{puff} Inhale 2 U nivers 90 5-17 Puffs ity of mcg/actuati 00:00: every 6 [place] as on inhaler 00 (six) Medical hours as Branch needed for Wheezing or Shortness of Breath. clonazePAM Yes [id number] 1 tablet Univers 1 mg tablet 5-17 [...] by ity of tablet 00:00: mouth at [place] 00 bedtime. Medical Branch albuterol Yes 2{puff} [...] tablet by ity of tablet 00:00: mouth [place] 00 every Medical morning. Branch albuterol 2017-0 Yes 2{puff} Inhale 2 U nivers 90 5-17 Puffs ity of mcg/actuati 00:00: every 6 [place] on inhaler 00 (six) Medical hours as Branch needed for Wheezing or Shortness of Breath. QUEtiapine Yes Take 25 mg U nivers 50 mg 5-17 ( half a ity of tablet 00:00: tablet) in [place] 00 the Medical morning Branch and 150mg (3 tablets) at night traZODone 2017- Yes 225mg Take 1.5 Uni vers 150 mg 5-17 tablets by ity of tablet 00:00: mouth at [place] 00 bedtime. Medical Branch albuterol Yes 2{puff} [...] a ity of tablet 00:00: tablet) in [place] 00 the Medical morning Branch and 150mg (3 tablets) at night traZODone 2018-0 Yes 225mg Take 1.5 Uni vers 150 mg 5-17 tablets by ity of tablet 00:00: mouth at [place] 00 bedtime. Medical Branch albuterol 2017-0 Yes [...] a ity of tablet 00:00: tablet) in [place] 00 the Medical morning Branch and 150mg [...] by ity of tablet 00:00: mouth at [place] 00 bedtime. Medical Branch albuterol 2018-0 Yes [...] a ity of tablet 00:00: tablet) in [place] 00 the Medical morning Branch and 150mg (3 tablets) at night traZODone 2018-0 Yes 225mg Take 1.5 Uni vers 150 mg 5-17 tablets by ity of tablet 00:00: mouth at [place] 00 bedtime. Medical Branch albuterol 2017-0 Yes [...] ity of tablet 00:00: 00:00 tablet) in [facility] s 00 :00 the Medical morning Branch and 150mg (3 tablets) at night traZODone 2019- No 225mg Take 1.5 Un maria isabel 150 mg 5-17 -24 tablets by ity of tablet 00:00: 00:00 mouth at [place] 00 :00 bedtime. Medical Branch levothyroxi 2019- No 150ug Take 1 Un maria isabel ne 150 mcg 5-17 -12 tablet by ity of tablet 00:00: 00:00 mouth [place] 00 :00 every Medical morning. Branch Vital Signs Vital Name Observation Time Observation Value Comments Source Systolic blood 2022-10-08 06:04:00 116 mm[Hg] [facility] Diastolic blood 2022-10-08 06:04:00 80 mm[Hg] [facility] Heart rate 2022-10-08 06:04:00 58 /min [facility] Respiratory rate 2022-10-08 06:04:00 20 /min [facility] Oxygen saturation in 2022-10-08 06:04:00 95 /min [facility] Arterial blood by [facility] Pulse oximetry Branch Body temperature 2022-10-08 03:44:00 36.67 Rachel [facility] Body weight 2022-10-08 03:44:00 74.844 kg [facility] BMI 2022-10-08 03:44:00 28.32 kg/m2 [facility] Systolic blood 2022-07-28 13:43:00 157 mm[Hg] Univer sity of pressure [place] [facility] Diastolic blood 2022-07-28 13:43:00 85 mm[Hg] Unive rsity of pressure [place] [facility] Heart rate 2022-07-28 13:43:00 78 /min Universi ty of [facility] Body temperature 2022-07-28 13:43:00 35.94 Rachel Univ ersity of [facility] Branch Body height 2022-07-28 13:43:00 162.6 cm [facility]i [facility] [place] [facility] Body weight 2022-07-28 13:43:00 74.844 kg Universi ty [facility] [place] [facility] BMI 2022-07-28 13:43:00 28.32 kg/m2 Universi ty of [facility] Branch Systolic blood 2022-07-23 04:56:00 125 mm[Hg] Univer sity of pressure [place] [facility] Diastolic blood 2022-07-23 04:56:00 83 mm[Hg] Unive rsity of pressure [facility] Heart rate 2022-07-23 04:56:00 67 /min Universi ty of [facility] Branch Respiratory rate 2022-07-23 04:56:00 18 /min Univ ersity of [facility] Oxygen saturation in 2022-07-23 04:56:00 97 /min University Arterial blood by [facility] Pulse oximetry Branch Body temperature 2022-07-23 00:40:00 37.06 Rachel Univ ersity of [facility] Body weight 2022-07-23 00:40:00 79.379 kg Universi ty of [place] [facility] [place] BMI 2022-07-23 00:40:00 30.04 kg/m2 Universi ty of [facility] Branch Systolic blood 2022-04-25 18:59:00 133 mm[Hg] Univer sity of pressure [place] [facility] Diastolic blood 2022-04-25 18:59:00 82 mm[Hg] Unive rsity of pressure [place] [facility] Heart rate 2022-04-25 18:55:00 81 /min Universi ty of [facility] Body temperature 2022-04-25 18:55:00 36.61 Rachel [facility] ers[facility] Branch Respiratory rate 2022-04-25 18:55:00 20 /min Univ ersity of [facility] Body height 2022-04-25 18:55:00 162.6 cm [facility]i ty [facility] [place] [facility] Body weight 2022-04-25 18:55:00 78.291 kg [facility]i ty [facility] [place] [facility] BMI 2022-04-25 18:55:00 29.63 kg/m2 [facility]i ty [facility] [place] [facility] Oxygen saturation in 2022-04-25 18:55:00 99 /min room air University of Arterial blood by [facility] Pulse oximetry Branch Systolic blood 2019-12-02 14:54:00 133 mm[Hg] Univer sity of pressure [place] [facility] Diastolic blood 2019-12-02 14:54:00 87 mm[Hg] Unive rsity of pressure [place] [facility] Heart rate 2019-12-02 14:54:00 73 /min [facility]i ty [facility] [place] [facility] Body temperature 2019-12-02 14:12:00 36.56 Rachel [facility] ers[facility] [place] [facility] Body height 2019-12-02 14:12:00 165.1 cm [facility] [place] [facility] Body weight 2019-12-02 14:12:00 94.167 kg [facility]i ty [facility] [place] [facility] BMI 2019-12-02 14:12:00 34.55 kg/m2 [facility] ty [facility] [place] [facility] Oxygen saturation in 2019-12-02 14:12:00 100 /min room air University of Arterial blood by [facility] Pulse oximetry Branch Systolic blood 2019-12-02 14:54:00 133 mm[Hg] Univer sity of pressure [place] [facility] Diastolic blood 2019-12-02 14:54:00 87 mm[Hg] Unive rsity of pressure [place] [facility] Heart rate 2019-12-02 14:54:00 73 /min [facility]i ty [facility] [place] [facility] Body temperature 2019-12-02 14:12:00 36.56 Rachel [facility] [place] [facility] Body height 2019-12-02 14:12:00 165.1 cm [facility] [place] [facility] Body weight 2019-12-02 14:12:00 94.167 kg [facility] [place] [facility] BMI 2019-12-02 14:12:00 34.55 kg/m2 [facility] [place] [facility] Oxygen saturation in 2019-12-02 14:12:00 100 /min room air University of Arterial blood by [facility] Pulse oximetry Branch Systolic blood 2022-10-12 12:23:07 149 mm[Hg] [facility] Diastolic blood 2022-10-12 12:23:07 98 [facility]Hg[facility] pressure Heart rate 2022-10-12 12:23:07 63 /min [facility] Body temperature 2022-10-12 12:23:07 35.72 Rachel [facility] Respiratory rate 2022-10-12 12:23:07 18 /min [facility] Oxygen saturation in 2022-10-12 12:23:07 97 /min [facility] [place] Arterial blood by Pulse oximetry Body height 2022-10-11 17:14:00 162.6 cm [facility] Body weight 2022-10-11 17:14:00 74.844 kg [facility] BMI 2022-10-11 17:14:00 28.32 kg/m2 [facility] Systolic blood 2022-07-28 19:11:27 132 mm[Hg] [facility] pressure Diastolic blood 2022-07-28 19:11:27 90 mm[Hg] [facility] pressure Heart rate 2022-07-28 19:11:27 86 /min [facility] Body temperature 2022-07-28 19:11:27 36.67 Rachel [facility] Respiratory rate 2022-07-28 19:11:27 18 /min [facility] Oxygen saturation in 2022-07-28 19:11:27 97 /min [facility] [place] Arterial blood by Pulse oximetry Body height 2022-07-28 15:47:00 162.6 cm [facility] Body weight 2022-07-28 15:47:00 74.844 kg [facility] BMI 2022-07-28 15:47:00 28.32 kg/m2 [facility] BP Systolic 2021-11-25 19:02:00 BP [...] Date / Time Performing Clinician Source Performed [id number] 2022-10-21 00:00:00 JOHNNY [facility] [id number] 2022-10-19 00:00:00 JOHNNY [facility] [id number] 2022-10-18 00:00:00 SAMKA.01 [facility] CBC WITH PLATELET AND 2022-10-12 08:58:00 [facility] DIFFERENTIAL BASIC METABOLIC PANEL 2022-10-12 08:58:00 [facility] ESTIMATED GFR 2022-10-12 08:58:00 [facility] ABO AND RH CONFIRMATION 2022-10-12 02:16:00 [facility] BY PROTOCOL TYPE AND SCREEN 2022-10-12 00:08:00 Guera Thrasher susan Lang TROPONIN T 2022-10-12 00:08:00 [facility] CT LOWER EXTREMITY WO 2022-10-11 22:49:19 [facility] CONTRAST RIGHT TROPONIN T 2022-10-11 20:25:00 [facility] URINE CULTURE 2022-10-11 18:53:00 [facility] URINALYSIS SCREEN AND 2022-10-11 18:53:00 [facility] MICROSCOPY, WITH REFLEX TO CULTURE HCG QUALITATIVE, URINE 2022-10-11 18:53:00 [facility] SCREEN ECG ED PRELIMINARY 2022-10-11 18:05:21 Adonay Trujillo [facility] INTERPRETATION XR HIP 2-3 VIEWS RIGHT 2022-10-11 17:55:46 [facility] [place] [facility] CHEST 1 VW PORTABLE 2022-10-11 17:55:32 Lucho Shea [facility] XR PELVIS 1 OR 2 VW 2022-10-11 17:55:19 Lucho Shea [facility] COVID-19, INFLUENZA A&B, 2022-10-11 17:46:00 Monse [facility] AND RSV QUALITATIVE RT-PCR CBC WITH PLATELET AND 2022-10-11 17:43:00 SheaLucho cole [facility] DIFFERENTIAL COMPREHENSIVE METABOLIC 2022-10-11 17:43:00 Shea, [facility] PANEL TROPONIN T 2022-10-11 17:43:00 Mathew Viera [facility] NT-PROBNP 2022-10-11 17:43:00 [facility] HCG QUALITATIVE, SERUM 2022-10-11 17:43:00 [facility]ROMBOPLASTIN 2022-10-11 17:43:00 [facility] TIME (PTT) PROTHROMBIN TIME WITH INR 2022-10-11 17:43:00 [facility] ESTIMATED GFR 2022-10-11 17:43:00 [facility] ECG 12-LEAD 2022-10-11 17:20:17 [facility] POCT TEST 2022-10-08 04:30:00 Mairia Curran [facility] CT PELVIS WO CONTRAST 2022-07-28 17:40:00 [facility] CBC WITH PLATELET AND 2022-07-28 16:40:00 [facility] DIFFERENTIAL COMPREHENSIVE METABOLIC 2022-07-28 16:40:00 [facility] PANEL ESTIMATED GFR 2022-07-28 16:40:00 [facility] spital XR FEMUR 2 VW RIGHT 2022-07-28 16:20:00 Yasmany Ghotra [facility] XR PELVIS 1 OR 2 VW 2022-07-28 16:20:00 [facility] METABOLIC PANEL 2022-07-23 02:02:00 Lisa Murillo [facility] ([id number]) [facility] [place] CBC WITH DIFF 2022-07-23 02:02:00 Lisa Murillo [facility] URINALYSIS 2022-07-23 01:59:00 iLsa Murillo [facility] CONSENT/REFUSAL FOR 2022-07-23 00:34:52 Doctor Unassigned, [facility] DIAGNOSIS AND TREATMENT [facility] ASSIGNMENT OF BENEFITS 2022-06-15 19:19:00 Doctor Unassigned, [facility] REFERRAL- 2022-01-10 05:01:00 Doctor Unassyolanda, [facility] REQUEST/RESPONSE [facility] [place] Plan of Care Planned Activity Planned Date Details Comments Source Future Scheduled 2022-11-14 Screening for [facility] Test 14:23:48 malignant neoplasm of colon (procedure) [code = 215284866] Future Scheduled 2022-11-14 Screening for [facility] Test 14:23:48 malignant neoplasm of colon (procedure) [code = 905759545] Future Scheduled 2022-11-14 Screening for [facility] Test 14:23:48 malignant neoplasm of colon (procedure) [code = 325696325] Future Scheduled 2022-11-14 COVID-19 VACCINE (#1) [facility] Test 14:23:48 [code = COVID-19 VACCINE (#1)] Future Scheduled 2022-11-14 Pneumococcal Vaccine: [facility] Test 14:23:48 Pediatrics (0 to 5 Years) and At-Risk Patients (6 to 64 Years) (1 - PCV) [code = Pneumococcal Vaccine: Pediatrics (0 to 5 Years) and At-Risk Patients (6 to 64 Years) (1 - PCV)] Future Scheduled 2022-11-14 Hepatitis C screening [facility] Test 14:23:48 (procedure) [code = 377012325] Future Scheduled 2022-11-14 Screening for [facility] Test 14:23:48 malignant neoplasm of cervix (procedure) [code = 026002671] Future Scheduled 2022-11-14 BREAST CANCER [facility] Test 14:23:48 SCREENING [code = BREAST CANCER SCREENING] Future Scheduled 2022-11-14 Screening for [facility] Test 14:23:48 malignant neoplasm of colon (procedure) [code = 760058090] Future Scheduled 2022-11-14 Screening for [facility] Test 14:23:48 malignant neoplasm of colon (procedure) [code = 133941517] Future Scheduled 2022-11-14 INFLUENZA VACCINE [facility] Test 14:23:48 [code = INFLUENZA VACCINE] Future Scheduled 2022-10-16 Screening for [facility] [place] Test 10:27:41 malignant neoplasm of colon (procedure) [code = 226924065] Future Scheduled 2022-10-16 Screening for [facility] [place] Test 10:27:41 malignant neoplasm of colon (procedure) [code = 171037960] Future Scheduled 2022-10-16 Screening for [facility] [place] Test 10:27:41 malignant neoplasm of colon (procedure) [code = 815605356] Future Scheduled 2022-10-16 COVID-19 VACCINE (#1) [facility] Test 10:27:41 [code = COVID-19 VACCINE (#1)] Future Scheduled 2022-10-16 Pneumococcal Vaccine: [facility] Test 10:27:41 Pediatrics (0 to 5 Years) and At-Risk Patients (6 to 64 Years) (1 - PCV) [code = Pneumococcal Vaccine: Pediatrics (0 to 5 Years) and At-Risk Patients (6 to 64 Years) (1 - PCV)] Future Scheduled 2022-10-16 Hepatitis C screening [facility] Test 10:27:41 (procedure) [code = 451163704] Future Scheduled 2022-10-16 Screening for [facility] [place] Test 10:27:41 malignant neoplasm of cervix (procedure) [code = 802155350] Future Scheduled 2022-10-16 BREAST CANCER [facility] [place] Test 10:27:41 SCREENING [code = BREAST CANCER SCREENING] Future Scheduled 2022-10-16 Screening for [facility] Test 10:27:41 malignant neoplasm of colon (procedure) [code = 472095077] Future Scheduled 2022-10-16 Screening for [facility] Test 10:27:41 malignant neoplasm of colon (procedure) [code = 450111837] Future Scheduled 2022-10-16 [facility]ACCINE [facility] 10:27:41 [code = INFLUENZA VACCINE] Future Scheduled 2022-10-05 Screening for [facility] Test 04:19:15 malignant neoplasm of colon (procedure) [code = 607133641] Future Scheduled 2022-10-05 Screening for [facility] Test 04:19:15 malignant neoplasm of colon (procedure) [code = 025769456] Future Scheduled 2022-10-05 Screening for [facility] Test 04:19:15 malignant neoplasm of colon (procedure) [code = 168603838] Future Scheduled 2022-10-05 COVID-19 VACCINE (#1) [facility] Test 04:19:15 [code = COVID-19 VACCINE (#1)] Future Scheduled 2022-10-05 Hepatitis C screening [facility] Test 04:19:15 (procedure) [code = 846725724] Future Scheduled 2022-10-05 Screening for [facility] Test 04:19:15 malignant neoplasm of cervix (procedure) [code = 962151045] Future Scheduled 2022-10-05 BREAST CANCER [facility] Test 04:19:15 SCREENING [code = BREAST CANCER SCREENING] Future Scheduled 2022-10-05 Screening for [facility] Test 04:19:15 malignant neoplasm of colon (procedure) [code = 061981981] Future Scheduled 2022-10-05 Screening for [facility] Test 04:19:15 malignant neoplasm of colon (procedure) [code = 157965810] Future Scheduled 2022-10-05 [facility]ACCINE [facility] Test 04:19:15 [code = INFLUENZA VACCINE] Future Scheduled 2022-08-10 COVID-19 VACCINE (#1) [facility] Test 13:16:26 [code = COVID-19 VACCINE (#1)] Future Scheduled 2022-08-10 Hepatitis C screening [facility] Test 13:16:26 (procedure) [code = 136314973] Future Scheduled 2022-08-10 Screening for [facility] Test 13:16:26 malignant neoplasm of cervix (procedure) [code = 076452095] Future Scheduled 2022-08-10 BREAST CANCER [facility] Test 13:16:26 SCREENING [code = BREAST CANCER SCREENING] Future Scheduled 2022-08-10 COLONOSCOPY SCREENING [facility] Test 13:16:26 [code = COLONOSCOPY SCREENING] Future Scheduled 2022-08-10 INFLUENZA VACCINE [facility] Test 13:16:26 [code = INFLUENZA VACCINE] Future Scheduled 2022-08-08 COVID-19 VACCINE (#1) [facility] Test 01:29:04 [code = COVID-19 VACCINE (#1)] Future Scheduled 2022-08-08 Hepatitis C screening [facility] Test 01:29:04 (procedure) [code = 966860650] Future Scheduled 2022-08-08 Screening for [facility] Test 01:29:04 malignant neoplasm of cervix (procedure) [code = 917202487] Future Scheduled 2022-08-08 BREAST CANCER [facility] Test 01:29:04 SCREENING [code = BREAST CANCER SCREENING] Future Scheduled 2022-08-08 COLONOSCOPY SCREENING [facility] Test 01:29:04 [code = COLONOSCOPY SCREENING] Future Scheduled 2022-08-08 INFLUENZA VACCINE [facility] Test 01:29:04 [code = INFLUENZA VACCINE] Goal Plan of Care Note [code = 69459-3] Goal Plan of Care Note [code = 84573-7] Goal Plan of Care Note [code = 33186-3] Goal Plan of Care Note [code = 55289-2] Goal Plan of Care Note [code = 58592-5] Goal Plan of Care Note [code = 68318-4] Goal Plan of Care Note [code = 65310-7] Goal Plan of Care Note [code = 90818-6] Goal Plan of Care Note [code = 76728-7] Goal Plan of Care Note [code = 52447-1] Goal Plan of Care Note [code = 05637-0] Goal Plan of Care Note [code = 96335-6] Goal Plan of Care Note [code = 59696-1] Goal Plan of Care Note [code = 30684-8] Goal Plan of Care Note [code = 70530-5] Goal Plan of Care Note [code = 97110-5] Goal Plan of Care Note [code = 64515-3] Goal Plan of Care Note [code = 18989-6] Goal Plan of Care Note [code = 60907-8] Goal Plan of Care Note [code = 68525-2] Goal Plan of Care Note [code = 91564-2] Goal Plan of Care Note [code = 82715-7] Goal Plan of Care Note [code = 44763-1] Goal Plan of Care Note [code = 75542-8] Goal Plan of Care Note [code = 02506-0] Goal Plan of Care Note [code = 61334-8] Goal Plan of Care Note [code = 63630-9] Goal Plan of Care Note [code = 31392-7] Goal Plan of Care Note [code = 44108-2] Goal Plan of Care Note [code = 73119-5] Goal Plan of Care Note [code = 68176-8] Goal Plan of Care Note [code = 80012-2] Goal Plan of Care Note [code = 17542-9] Goal Plan of Care Note [code = 48187-6] Goal Plan of Care Note [code = 02734-2] Goal Plan of Care Note [code = 18339-5] Goal Plan of Care Note [code = 24107-7] Goal Plan of Care Note [code = 35470-8] Goal Plan of Care Note [code = 52428-5] Goal Plan of Care Note [code = 74425-4] Goal Plan of Care Note [code = 28382-3] Goal Plan of Care Note [code = 94390-1] Goal Plan of Care Note [code = 96029-5] Goal Plan of Care Note [code = 13823-2] Goal Plan of Care Note [code = 88871-6] Goal Plan of Care Note [code = 21290-3] Goal Plan of Care Note [code = 23973-2] Goal Plan of Care Note [code = 45819-9] Goal Plan of Care Note [code = 37591-2] Goal Plan of Care Note [code = 69515-0] Goal Plan of Care Note [code = 24194-4] Goal Plan of Care Note [code = 29169-8] Goal Plan of Care Note [code = 20408-4] Goal Plan of Care Note [code = 12607-7] Goal Plan of Care Note [code = 16867-9] Goal Plan of Care Note [code = 96934-5] Goal Plan of Care Note [code = 75980-7] Goal Plan of Care Note [code = 74946-0] Goal Plan of Care Note [code = 40030-4] Goal Plan of Care Note [code = 96118-9] Goal Plan of Care Note [code = 99583-5] Goal Plan of Care Note [code = 60172-7] Goal Plan of Care Note [code = 96776-2] Goal Plan of Care Note [code = 51598-3] Goal Plan of Care Note [code = 28876-8] Goal Plan of Care Note [code = 85449-1] Goal Plan of Care Note [code = 11098-5] Goal Plan of Care Note [code = 20656-1] Goal Plan of Care Note [code = 19471-2] Goal Plan of Care Note [code = 23250-7] Goal Plan of Care Note [code = 40598-7] Goal Plan of Care Note [code = 83424-1] Goal Plan of Care Note [code = 73417-7] Goal Plan of Care Note [code = 27461-3] Goal Plan of Care Note [code = 07227-0] Goal Plan of Care Note [code = 87280-8] Goal Plan of Care Note [code = 29498-4] Goal Plan of Care Note [code = 05923-1] Goal Plan of Care Note [code = 19690-3] Goal Plan of Care Note [code = 07366-7] Goal Plan of Care Note [code = 21553-0] Goal Plan of Care Note [code = 58161-6] Goal Plan of Care Note [code = 96752-2] Goal Plan of Care Note [code = 06504-8] Goal Plan of Care Note [code = 97458-7] Goal Plan of Care Note [code = 87479-2] Goal Plan of Care Note [code = 05559-7] Goal Plan of Care Note [code = 96869-6] Goal Plan of Care Note [code = 17340-8] Goal Plan of Care Note [code = 18178-1] Goal Plan of Care Note [code = 09249-9] Goal Plan of Care Note [code = 49066-3] Goal Plan of Care Note [code = 21966-3] Goal Plan of Care Note [code = 49609-3] Goal Plan of Care Note [code = 82252-0] Goal Plan of Care Note [code = 22726-0] Goal Plan of Care Note [code = 30504-8] Goal Plan of Care Note [code = 83329-2] Goal Plan of Care Note [code = 54887-6] Goal Plan of Care Note [code = 50252-6] Goal Plan of Care Note [code = 79672-6] Goal Plan of Care Note [code = 79233-7] Goal Plan of Care Note [code = 43960-4] Goal Plan of Care Note [code = 27063-0] Goal Plan of Care Note [code = 16121-1] Goal Plan of Care Note [code = 55868-3] Goal Plan of Care Note [code = 13441-4] Goal Plan of Care Note [code = 02744-7] Goal Plan of Care Note [code = 08619-9] Goal Plan of Care Note [code = 02845-2] Goal Plan of Care Note [code = 81257-5] Goal Plan of Care Note [code = 90073-8] Goal Plan of Care Note [code = 04505-6] Goal Plan of Care Note [code = 88509-6] Goal Plan of Care Note [code = 25887-3] Goal Plan of Care Note [code = 91219-2] Goal Plan of Care Note [code = 88883-5] Goal Plan of Care Note [code = 07375-1] Goal Plan of Care Note [code = 03503-8] Goal Plan of Care Note [code = 93300-5] Goal Plan of Care Note [code = 87141-7] Goal Plan of Care Note [code = 76430-3] Goal Plan of Care Note [code = 34080-6] Goal Plan of Care Note [code = 90890-4] Goal Plan of Care Note [code = 58185-0] Goal Plan of Care Note [code = 56786-8] Goal Plan of Care Note [code = 61818-5] Goal Plan of Care Note [code = 22978-0] Goal Plan of Care Note [code = 53183-6] Goal Plan of Care Note [code = 75808-3] Goal Plan of Care Note [code = 90547-5] Goal Plan of Care Note [code = 93490-2] Goal Plan of Care Note [code = 31158-4] Goal Plan of Care Note [code = 95222-1] Goal Plan of Care Note [code = 02661-7] Goal Plan of Care Note [code = 61782-8] Goal Plan of Care Note [code = 92409-6] Goal Plan of Care Note [code = 58354-1] Goal Plan of Care Note [code = 71898-4] Goal Plan of Care Note [code = 94539-6] Goal Plan of Care Note [code = 99454-1] Goal Plan of Care Note [code = 18229-6] Goal Plan of Care Note [code = 70602-6] Goal Plan of Care Note [code = 60691-2] Goal Plan of Care Note [code = 14675-4] Goal Plan of Care Note [code = 85711-7] Goal Plan of Care Note [code = 89606-1] Goal Plan of Care Note [code = 97353-6] Goal Plan of Care Note [code = 88677-4] Goal Plan of Care Note [code = 47963-5] Goal Plan of Care Note [code = 74226-8] Goal Plan of Care Note [code = 77459-1] Goal Plan of Care Note [code = 64926-7] Goal Plan of Care Note [code = 91880-5] Goal Plan of Care Note [code = 82646-8] Goal Plan of Care Note [code = 12933-9] Goal Plan of Care Note [code = 22296-7] Goal Plan of Care Note [code = 52421-6] Goal Plan of Care Note [code = 12392-4] Goal Plan of Care Note [code = 90076-5] Goal Plan of Care Note [code = 67367-8] Goal Plan of Care Note [code = 39762-8] Goal Plan of Care Note [code = 51981-2] Goal Plan of Care Note [code = 67020-4] Goal Plan of Care Note [code = 16180-0] Goal Plan of Care Note [code = 00563-1] Goal Plan of Care Note [code = 66483-0] Goal Plan of Care Note [code = 18394-4] Goal Plan of Care Note [code = 13683-3] Goal Plan of Care Note [code = 07754-9] Goal Plan of Care Note [code = 50012-9] Goal Plan of Care Note [code = 69297-2] Goal Plan of Care Note [code = 90779-4] Goal Plan of Care Note [code = 05884-2] Goal Plan of Care Note [code = 81475-7] Goal Plan of Care Note [code = 48395-6] Goal Plan of Care Note [code = 43634-9] Goal Plan of Care Note [code = 08754-9] Goal Plan of Care Note [code = 92193-3] Goal Plan of Care Note [code = 38925-5] Goal Plan of Care Note [code = 76470-7] Goal Plan of Care Note [code = 16689-3] Goal Plan of Care Note [code = 59491-8] Goal Plan of Care Note [code = 66974-2] Goal Plan of Care Note [code = 67683-7] Goal Plan of Care Note [code = 79931-1] Goal Plan of Care Note [code = 52675-0] Goal Plan of Care Note [code = 31129-3] Goal Plan of Care Note [code = 71171-5] Goal Plan of Care Note [code = 30228-8] Goal Plan of Care Note [code = 32164-0] Goal Plan of Care Note [code = 06981-5] Goal Plan of Care Note [code = 06206-2] Goal Plan of Care Note [code = 61509-5] Goal Plan of Care Note [code = 79744-0] Goal Plan of Care Note [code = 89522-8] Goal Plan of Care Note [code = 86798-7] Goal Plan of Care Note [code = 15871-3] Goal Plan of Care Note [code = 22063-5] Goal Plan of Care Note [code = 08544-2] Goal Plan of Care Note [code = 38454-9] Goal Plan of Care Note [code = 18636-7] Goal Plan of Care Note [code = 30247-9] Goal Plan of Care Note [code = 21428-6] Goal Plan of Care Note [code = 38394-2] Goal Plan of Care Note [code = 42149-9] Goal Plan of Care Note [code = 97013-7] Goal Plan of Care Note [code = 54653-2] Goal Plan of Care Note [code = 51391-1] Goal Plan of Care Note [code = 95970-6] Goal Plan of Care Note [code = 78147-5] Goal Plan of Care Note [code = 48097-8] Goal Plan of Care Note [code = 94610-0] Goal Plan of Care Note [code = 42729-7] Goal Plan of Care Note [code = 47548-8] Goal Plan of Care Note [code = 97339-6] Goal Plan of Care Note [code = 01204-5] Goal Plan of Care Note [code = 18961-1] Goal Plan of Care Note [code = 85770-1] Goal Plan of Care Note [code = 78223-3] Goal Plan of Care Note [code = 57595-1] Goal Plan of Care Note [code = 28110-2] Goal Plan of Care Note [code = 85285-5] Goal Plan of Care Note [code = 71348-4] Goal Plan of Care Note [code = 09281-2] Goal Plan of Care Note [code = 57829-7] Goal Plan of Care Note [code = 81766-6] Goal Plan of Care Note [code = 33166-1] Goal Plan of Care Note [code = 57921-1] Goal Plan of Care Note [code = 60217-2] Goal Plan of Care Note [code = 77237-6] Goal Plan of Care Note [code = 93339-6] Goal Plan of Care Note [code = 05634-4] Goal Plan of Care Note [code = 71534-1] Goal Plan of Care Note [code = 41818-5] Goal Plan of Care Note [code = 75220-5] Goal Plan of Care Note [code = 73577-6] Goal Plan of Care Note [code = 06381-8] Goal Plan of Care Note [code = 26974-0] Goal Plan of Care Note [code = 32701-5] Goal Plan of Care Note [code = 33969-3] Goal Plan of Care Note [code = 23754-8] Goal Plan of Care Note [code = 92834-6] Goal Plan of Care Note [code = 49502-4] Goal Plan of Care Note [code = 97767-7] Goal Plan of Care Note [code = 76249-6] Goal Plan of Care Note [code = 36269-4] Goal Plan of Care Note [code = 20153-6] Goal Plan of Care Note [code = 46307-7] Goal Plan of Care Note [code = 40676-7] Goal Plan of Care Note [code = 84619-4] Goal Plan of Care Note [code = 89309-1] Goal Plan of Care Note [code = 54579-6] Goal Plan of Care Note [code = 94694-4] Goal Plan of Care Note [code = 65157-5] Goal Plan of Care Note [code = 12905-8] Goal Plan of Care Note [code = 71345-5] Goal Plan of Care Note [code = 68522-5] Goal Plan of Care Note [code = 02263-1] Goal Plan of Care Note [code = 53042-3] Goal Plan of Care Note [code = 94548-4] Goal Plan of Care Note [code = 30970-9] Goal Plan of Care Note [code = 61789-0] Goal Plan of Care Note [code = 26870-9] Goal Plan of Care Note [code = 55611-7] Goal Plan of Care Note [code = 48257-1] Goal Plan of Care Note [code = 63414-2] Goal Plan of Care Note [code = 15649-8] Encounters Start End Encounter Admission Attending Care Care Encounter Source Date/Time Date/Time Type Type Clinicians Facility Department ID 2021-07-15 Outpatient PRIYANK MISTRYCLOVER [id number] [place] 14:49:46 [id number] [facility] 2021-07-13 Outpatient PRIYANK MISTRYCLOVER [id number] [place] 13:18:38 [id number] [facility] 2022-11-10 2022-11-10 Outpatient Issa BECERRA [facility] [id number] [facility] 16:00:00 16:00:00 YENNI BECERRA [facility] 2022-10-17 2022-10-25 Inpatient EM Jammie [facility] MED [id number] [facility] 08:35:00 16:15:[address] 2022-10-21 2022-10-21 Outpatient ARJUN Agudelo REF [id number] [facility] 16:26:00 16:26:[address] are [facility] 2022-10-12 2022-10-12 Anesthesia Brann, 1.2.840.1 [id number] [facility] 23:59:59 23:59:59 Event Husam 67887.1.[address] [place] 3.430.2.7 Hospit a .3.838574 l .8 2022-10-11 2022-10-12 Emergency Adonay Trujillo 1.2.840.1 [id number] [facility] 12:23:00 13:19:00 Mathew [place] [address]48.1.[address] 3.430.2.7 Hospit a .3.366779 l .8 2022-10-11 2022-10-12 Emergency AYLIN 1.2.840.1 [id number] [place] 00:00:00 00:00:00 MATHEW 99132.1.[address] .3.461337 .8 2022-10-11 2022-10-11 Documentat Provider, 1.2.840.1 [id number] 2 [id number] [facility] 00:00:00 00:00:00 ion Unknown 50481.1.[address] 3.430.2.7 Hospit a .3.955807 l .8 2022-10-11 2022-10-11 Documentat Provider, 1.2.840.1 [id number] 2 [id number] [facility] 00:00:00 00:00:00 ion Unknown 84411.1.[address] 3.430.2.7 Hospit a .3.118742 l .8 2022-10-07 2022-10-08 Emergency X BINA [facility] ERT [id number] Univers 22:45:00 03:24:00 MARIIA renee o f [facility] 2022-10-07 2022-10-08 Emergency Bina, TRAUMA 1.2.964.909 [id number] [id number] Univers 22:45:00 03:24:00 [facility] 350.1.13.10 i [id number] [address] 2022-09-24 2022-09-24 Telephone Ekaterina [facility] 1.2.954.409 8250 [id number] Univers 00:00:00 00:00:00 Stefania W SPECIALTY 350.1.13.10 ity of CARE 4.2.7.2.686 [facility] CENTER AT [id number] Ar kush WALKER [address] [facility] 2022-08-07 2022-08-07 Outpatient FOG_Goytia_ AOSM AOSM 652 5538-20 Sowmya 00:00:00 00:00:00 Cody 430002 [facility] 2022-07-28 2022-07-28 Emergency Annita, 1.2.840.1 [id number] [id number] Methodi 10:49:00 14:17:[address] 3.430.2.7 Hospit a .3.224452 l .8 2022-07-28 2022-07-28 Emergency Annita, 1.2.840.1 [id number] 2099 [id number] Methodi 10:49:00 14:17:[address] 3.430.2.7 Hospit a .3.162209 l .8 2022-07-28 2022-07-28 Out[facility] [id number] Univers 09:00:00 09:20:09 STEFANIA renee [facility] 2022-07-28 2022-07-28 [facility] 1.2.840.114 [id number] Univers 09:00:00 09:20:09 Visit Stefania Carter SPECIALTY 350.1.13.10 ity of CARE 4.2.7.2.686 [facility] AT [id number] Ar dicevelin WALKER 198 [facility] 2022-07-28 2022-07-28 Travel 1.2.840.1 1.2.108.403 5232 [id number] Methodi 00:00:00 00:00:[address] 3.430.2.7 0.2.7.3.698 Ho spita .3.871110 084.8 l .8 2022-07-28 2022-07-28 [facility] 1.2.281.676 1338 72857 Univers 00:00:00 00:00:00 Stefania W SPECIALTY 350.1.13.10 [place] [id number] Ar dicevelin VICTORJacques [address] [facility] 2022-07-28 2022-07-28 Travel 1.2.840.1 1.2.204.031 1913 [id number] Methodi 00:00:00 00:00:[address] 3.430.2.7 0.2.7.3.698 Ho spita .3.229836 084.8 l .8 2022-07-22 2022-07-23 Emergency X JANE, [facility] ERT [id number] Univers 19:42:00 00:14:00 [facility] 2022-07-22 2022-07-23 Emergency Cacace, TRAUMA 1.2.094.889 2072 [id number] Univers 19:42:00 00:14:00 [facility] 350.1.13.10 [id number] [address] 2022-07-06 2022-07-06 Outpatient R MARICARMEN [facility] [id number] Univers 16:10:00 16:10:00 STEFANIA [facility] 2022-07-04 2022-07-04 Outpatient R [facility] [id number] Univers 15:00:00 15:00:00 [facility] 2022-06-30 2022-06-30 Outpatient R [facility] [id number] Univers 09:00:00 09:00:00 [facility] 2022-06-29 2022-06-29 [facility] 1.2.840.114 1 [id number] Univers 00:00:00 00:00:00 Stefania TOBIN 350.1.13.10 it [place] [id number] Ar katlynevelin [address] 2022-06-15 2022-06-15 [facility] [id number] Univers 13:20:23 23:59:00 ANDERSON ity of [facility] 2022-06-15 2022-06-15 [facility] 1.2.840.114 101 [id number] Univers 13:20:23 23:59:00 Encounter Anderson TREJO 350.1.13.10 [place] [id number] [facility] [address] 2022-06-15 2022-06-15 Telephone EliseFreeman [facility] 1.2.840.114 1 [id number] Univers 00:00:00 00:00:00 Dionisio MULTISPEC 350.1.13.10 ity of [facility]ALTY 4.2.7.2.686 [facility] [id number] [facility] [address] [facility] 2022-06-15 2022-06-15 Orders Doctor ROBIN 1.2.840.114 [id number] Univers 00:00:00 00:00:00 Only Unassigned, AISHA 350.1.13.10 ity of [place] [facility] 4.2.7.2.686 Dany [id number] [facility] [address] 2022-05-30 2022-05-30 Outpatient R [facility] [id number] Univers 15:30:00 15:30:00 ity of [facility] 2022-05-04 2022-05-04 Outpatient SFA [facility] 459523- 202 Seth 14:40:00 14:40:00 15651 F Kristian 2022-05-03 2022-05-03 Outpatient [id number]- [id number] e3 3o0548-9 00:00:00 00:00:00 Visit 261b-4edf 61b-4edf-8 -8139-75d 139-15x947 2842019ul 9190eb 2022-04-26 2022-04-26 Telephone [facility] 1.2.685.351 1778 1467 Univers 00:00:00 00:00:00 Richien PRIMARY 350.1.13.10 i ty [place] [id number] Ar dical [address] 2022-04-25 2022-04-25 Chef Saucier Pcp-Lab [facility] 1.2.840.114 997 [id number] Univers 15:15:00 15:30:00 Visit Lex Ochoa PRIMARY 350.1.13.10 [place] [id number] Ar dical [address] 2022-04-25 2022-04-25 Outpatient R OCHOA [facility] 1043 [id number] [facility] 14:00:00 15:08:22 [facility] 2022-04-25 2022-04-25 Office El Scales Team [facility] 1.2.840. 114 [id number] [facility] 14:00:00 15:08:22 Visit Lex Ochoa PRIMARY 350.1.13.10 [place] [id number] Ar dicevelin [address] 2022-03-16 2022-03-16 Outpatient [id number]- [id number] 94 6057g3-0 00:00:00 00:00:00 Visit 61d4-9524 9a2-2507-6 -72t6-40o 5g4-65l224 0189p23r6 2c67e7 2022-02-27 2022-02-27 Outpatient R RAMIRO [facility] [id number] [facility] 08:00:00 08:00:00 DOROTEO [facility] 2022-02-06 2022-02-06 Outpatient R NINA SALGDAO [facility] 10 [id number] Univers 10:30:00 10:30:[address] [facility] 2022-02-01 2022-02-01 Outpatient [id number]- [id number] 0d6e65-c 00:00:00 00:00:00 Visit fce7-452a ce7-452a-9 -924a-d2a 24a-c1b922 596g8q480 p5h295 2022-01-27 2022-01-27 Outpatient [id number]- [id number] 42 67fc70-y 00:00:00 00:00:00 Visit u3r7-182q 3f0-751r-a -bc3s-a21 i0q-v23x3z q9q104q49 394e27 2022-01-10 2022-01-10 Orders Doctor ROBIN 1.2.840.114 [id number] Univers 00:00:00 00:00:00 Only Unassigned, AISHA 350.1.13.10 ity of [place] [facility] 4.2.7.2.686 Dany as [id number] [place] [address] 2022-01-10 2022-01-10 Outpatient [id number]- [id number] 1f [id number] 00:00:00 00:00:00 Visit 6i30-8t4f y90-4b2n-o -a19e-wfc 06b-baa1f0 9f2bi31n7 fa00b2 2022-01-07 2022-01-07 Outpatient [id number]- [id number] f3 57ks97-9 00:00:00 00:00:00 Visit 2661-44e8 661-44e8-8 -1i11-683 k86-820z28 a22lc034c wq097b 2021-11-30 2021-11-30 Outpatient [id number]- [id number] i9386q-[id number] 00:00:00 00:00:00 Visit 9143-4898 202-4562-8 -5z32-054 b06-081800 1209a0162 3l8091 2021-11-25 2021-11-25 Outpatient [id number]- [id number] ca ltx916-1 00:00:00 00:00:00 Visit 1694-4ca5 694-4ca5-9 -91i1-262 1i6-7787r2 [id number] 8569-07-26 2021-11-08 Outpatient [id number]- [id number] hy2e33-3 00:00:00 00:00:00 Visit 6vi8-58a9 ce1-48a3-b -l955-2m9 658-7a18e3 3d3713bgm 625efb 2021-06-21 2021-06-21 Outpatient R YARIEL [facility] [id number] Univers 11:00:00 11:00:00 ILA [facility] 2020-07-12 2020-07-12 Outpatient R LALA, [facility] [id number] Univers 09:30:00 09:30:00 ATTENDING [facility] 2020-07-01 2020-07-01 Patient Ulises [facility] 1.2.840.114 [id number] Univers 00:00:00 00:00:00 Outreach Kirk PRIMARY 350.1.13.10 i [place] [id number] Ar dical [address] [place] 2020-07-01 2020-07-01 [facility] 1.2.840.114 [id number] 00:00:00 00:00:00 Outreach Kirk PRIMARY 350.1.13.10 [place] 4.2.7.2.686 [place]AV[place] [id number] 2020-06-30 2020-06-30 Outpatient R BELLO, [facility] [id number] Univers 10:40:00 10:40:00 SREEKANTH [facility] 2020-05-06 2020-05-06 Outpatient R DOROTHEA, [facility] [id number] Univers 11:00:00 11:00:00 JUAN CARLOS [facility] 2020-03-09 2020-03-09 [facility] 1.2.840.114 [id number] Univers 00:00:00 00:00:00 Ila M PRIMARY 350.1.13.10 it y [place] [id number] Ar dical 390 [place] 2020-03-09 2020-03-09 [facility] 1.2.840.114 [id number] 00:00:00 00:00:00 Ila M PRIMARY 350.1.13.10 CARE 4.2.7.2.686 PAVILLION [id number] 390 2020-01-27 2020-01-27 [facility] 1.2.840.114 [id number] Univers 00:00:00 00:00:00 [place] M PRIMARY 350.1.13.10 it [place] [phone] [facility] [address] [place] 2020-01-27 2020-01-27 [facility] 1.2.840.114 [id number] 00:00:00 00:00:00 Ila M PRIMARY 350.1.13.10 CARE 4.2.7.2.686 PAVILLION [phone] [facility] 2019-12-28 2019-12-28 [facility]am [facility]ultzCROWN[facility] 1.2.840.114 [id number] Univers 00:00:00 00:00:00 Lynda PRIMARY 350.1.13.10 it [place] [id number] [address] 2019-12-28 2019-12-28 [facility]am [facility] 1.2.840.114 [id number] 350 00:00:00 00:00:00 Lynda PRIMARY 350.1.13.10 CARE 4.2.7.2.686 PAVILLION [id number] [facility] 2019-12-25 2019-12-25 Outpatient Iss[facility] [id number] Univers 13:30:00 13:30:00 STEFANIA renee [facility] 2019-12-24 2019-12-24 I[facility] 1.2.840.114 [id number] Univers 00:00:00 00:00:00 Lynda PRIMARY 350.1.13.10 [place] [phone] [address] 2019-12-24 2019-12-24 Iam [facility] 1.2.840.114 [id number] 00:00:00 00:00:00 Lynda PRIMARY 350.1.13.10 CARE 4.2.7.2.686 PAVILLION [id number] 388 2019-12-18 2019-12-18 Outpatient Iss[address] [facility] [address] [id number] Univers 08:30:00 08:30:00 ILA [facility] 2019-12-12 2019-12-12 [facility] 1.2.840.114 [id number] [facility] 00:00:00 00:00:00 Juan Carlos J PRIMARY 350.1.13.10 it [place] [phone] [facility] [address] [place] 2019-12-12 2019-12-12 [facility]ill [facility] 1.2.840.114 [id number] 00:00:00 00:00:00 Juan Carlos J PRIMARY 350.1.13.10 CARE 4.2.7.2.686 PAVILLION [id number] [facility] 2019-12-10 2019-12-10 [facility] R [facility] [id number] Univers 11:00:00 11:00:00 ILA [facility] 2019-12-09 2019-12-09 [facility] 1.2.840.114 [id number] [facility] 00:00:00 00:00:00 Juan Carlos J PRIMARY 350.1.13.10 it [place] of [place] [phone] [address] 2019-12-09 2019-12-09 Refill DoylegordonCROWNPOINT [facility] 1.2.840.114 [id number] [facility] 00:00:00 00:00:00 Ila M PRIMARY 350.1.13.10 it y of C[place] 4.2.7.2.[place] [phone] [facility] [address] [place] 2019-12-09 2019-12-09 [facility] 1.2.840.114 [id number] 00:00:00 00:00:00 Juan Carlos J PRIMARY 350.1.13.10 CARE 4.2.7.2.686 PAVILLION [id number] [facility] 2019-12-09 2019-12-09 [facility] 1.2.840.114 [id number] 00:00:00 00:00:00 [place] M PRIMARY 350.1.13.10 CARE 4.2.7.2.686 PAVILLION [id number] 390 2019-12-04 2019-12-04 [facility] 1.2.840.114 [id number] Univers 00:00:00 00:00:00 Lynda PRIMARY 350.1.13.10 it y of [place].2.[place] [phone] [address] 2019-12-04 2019-12-04 [facility]phone [facility] 1.2.840.114 [id number] 00:00:00 00:00:00 Lynda PRIMARY 350.1.13.10 CARE 4.2.7.2.686 PAVILLION [phone] [facility] 2019-12-02 2019-12-02 Office [facility] 1.2.840.114 [id number] 09:06:15 10:45:17 Visit Juan Carlos J PRIMARY 350.1.13.10 CARE 4.2.7.2.686 PAVILLION [id number] [facility] 2019-12-02 2019-12-02 Office [facility] 1.2.840.114 [id number] [facility] 09:06:15 10:45:17 Visit Juan Carlos J PRIMARY 350.1.13.10 it y of C[place].2.[place] [phone] [address] 2019-12-02 2019-12-02 Outpatient R DOROTHEA [facility] [id number] Univers 09:30:00 09:30:00 JUAN CARLOS renee [facility] 2019-12-02 2019-12-02 Telephone [facility] 1.2.840.114 [id number] [facility] 00:00:00 00:00:00 Juan Carlos J PRIMARY 350.1.13.10 it [place] of [place] [phone] [address] 2019-12-01 2019-12-01 Outpatient R YARIEL [facility] [id number] Univers 10:00:00 10:00:00 ILA renee [facility] 2019-10-15 2019-10-15 Outpatient R UNKNOWN, [facility] [id number] Univers 13:30:00 13:30:00 ATTENDING ity of [facility] 2019-10-09 2019-10-09 [facility] 1.2.840.114 [id number] Univers 00:00:00 00:00:00 Lynda PRIMARY 350.1.13.10 it y of CARE 4.2.7.2.[place] [phone] [facility] [address] [place] 2019-10-08 2019-10-08 Telephone [facility]ringtonCROWN[facility] 1.2.840.114 [id number] Univers 00:00:00 00:00:00 Lynda PRIMARY 350.1.13.10 it y of C[place] 4.2.7.2.[place] [id number] [facility] [address] [place] 2019-10-06 2019-10-06 [facility] 1.2.840.114 [id number] Univers 00:00:00 00:00:00 Ila M PRIMARY 350.1.13.10 it y of C[place] 4.2.7.2.[place] [id number] [facility] [address] [place] 2019-09-30 2019-09-30 [facility] 1.2.840.114 [id number] Univers 09:56:40 10:26:40 ne Visit Ila M PRIMARY 350.1.13.10 i ty of CARE 4.2.7.2.[place] [id number] [facility] [address] [place] 2019-09-30 2019-09-30 Outpatient R YARIEL [facility] [id number] Univers 09:30:00 09:30:00 ILA ity of [facility] 2019-09-22 2019-09-22 Iam [facility]ultzCR[facility] 1.2.840.114 [id number] Univers 00:00:00 00:00:00 Lynda PRIMARY 350.1.13.10 it y of C[place] 4.2.7.2.[place] [id number] [facility] [address] [place] 2019-09-02 2019-09-04 Telemedici [facility]CR[facility] 1.2.840.114 [id number] Univers 07:24:21 09:05:02 ne Visit Lynda PRIMARY 350.1.13.10 i ty of C[place] 4.2.7.[place] [id number] [address] 2019-09-04 2019-09-04 Refcarlitos ShultzCROWNPOINT [facility] 1.2.840.114 [id number] Univers 00:00:00 00:00:00 Lynda PRIMARY 350.1.13.10 it y of C[place] 4.2.7.[place] [id number] [address] 2019-09-02 2019-09-02 Outpatient R CARRINGTON [facility] [id number] Univers 11:00:00 11:00:00 LYNDA ity [facility] 2019-09-01 2019-09-01 Chef Saucier [facility] UNIVERSIT 1.2.840.114 [id number] Univers 08:58:21 09:13:21 Visit Juan Carlos Piedra [facility] 350.1.13.10 ity of CLINICS [place]2.[place] [id number] [address] 2019-09-01 2019-09-01 Outpatient R DOROTHEA [facility] [id number] Univers 09:00:00 09:00:00 [facility]AN [facility] 2019-08-24 2019-08-24 [facility] 1..840.114 [id number] Univers 00:00:00 00:00:00 Lynda PRIMARY 350.1.13.10 it y of C[place]2.[place] [id number] [address] 2019-08-08 2019-08-08 Outpatient R EDIS [facility] [id number] Univers 14:20:00 14:20:00 JV ity [facility] 2019-08-07 2019-08-07 Telephone [facility] 1.2.840.114 [id number] Univers 00:00:00 00:00:00 Lynda PRIMARY 350.1.13.10 it y of C[place].2.[place].2.[place] [phone] [address] 2019-08-07 2019-08-07 Telephone AddisonCROWNPOINT [facility] 1.2.596.973 [id number] Univers 00:00:00 00:00:00 Deep PRIMARY 350.1.13.10 it [place] of C[place].2.[place] [id number] [address] 2019-08-06 2019-08-06 [facility] 1.2.840.114 [id number] Univers 00:00:00 00:00:00 Lynda PRIMARY 350.1.13.10 it y of C[place].2.7.2.[place] [id number] [address] 2019-08-05 2019-08-05 Telephone [facility]CR[facility] 1.2.484.528 [id number] Univers 00:00:00 00:00:00 [facility] PRIMARY 350.1.13.10 it y of C[place] [id number] [address] 2019-08-01 2019-08-01 Outpatient [facility] [id number] Univers 15:10:00 15:10:00 PAULINA renee [facility] 2019-08-01 2019-08-01 Telemedici Mick Jaime [facility] 1.2.840. 114 [id number] Univers 13:53:58 14:23:58 ne Visit Paulina Casanova K PRIMARY 350.1.13. 10 ity of CARE [place].2.7.2.[place] [phone] [address] 2019-08-01 2019-08-01 [facility] 1.2.840.114 [id number] Univers 00:00:00 00:00:00 Lynda PRIMARY 350.1.13.10 it y of C[place].2.7.2.[place] [id number] [address] 2019-08-01 2019-08-01 Telephone [facility] 1.2.840.114 [id number] Univers 00:00:00 00:00:00 Lynda PRIMARY 350.1.13.10 it y of C[place]2.[place] [id number] [address] 2019-07-28 2019-07-28 [facility]ultzCROWN[facility] 1.2.840.114 [id number] Univers 00:00:00 00:00:00 Lynda PRIMARY 350.1.13.10 it y of C[place].2.7.2.[place] [id number] [address] 2019-07-21 2019-07-21 [facility] 1.2.840.114 [id number] Univers 00:00:00 00:00:00 Lynda PRIMARY 350.1.13.10 it y of C[place]2.[place] [id number] [address] 2019-07-18 2019-07-18 [facility] 1.2.840.114 [id number] Univers 00:00:00 00:00:00 Lynda PRIMARY 350.1.13.10 it y of C[place]2.7.2.[place] [id number] [address] 2019-07-17 2019-07-17 [facility] 1.2.840.114 [id number] Univers 00:00:00 00:00:00 Lynda PRIMARY 350.1.13.10 it y of C[place]2.7.2.[place] [id number] [address] 2019-07-16 2019-07-16 [facility] 1.2.840.114 [id number] Univers 00:00:00 00:00:00 Lynda PRIMARY 350.1.13.10 it y of CARE 4.2.7.2.[place] [phone] [address] 2019-07-14 2019-07-14 [facility] 1.2.840.114 [id number] Univers 00:00:00 00:00:00 Lynda PRIMARY 350.1.13.10 it y of CARE 4.2.7.2.[place] [phone] [facility] [address] [place] 2019-07-14 2019-07-14 Refill [facility] 1.2.840.114 [id number] Univers 00:00:00 00:00:00 Lynda PRIMARY 350.1.13.10 it y of CARE 4.2.7.2.[place] [id number] [address] 2019-07-08 2019-07-08 Telemedici [facility]CR[facility] 1.2.840.114 [id number] Univers 08:06:45 08:36:45 ne Visit Lynda PRIMARY 350.1.13.10 i ty of CARE 4.2.7.2.[place] [id number] [address] 2019-07-08 2019-07-08 Outpatient R [facility] [id number] Univers 08:30:00 08:30:00 LYNDA ity [facility] 2019-07-06 2019-07-06 Nurse ROBIN Vogel 1.2.840.114 [id number] Univers 00:00:00 00:00:00 Triage Mariangel LEONARD 350.1.13.10 i ty of [facility] 4.2.7.2.686 Dany as [id number] [address] 2019-07-06 2019-07-06 Telephone [facility] 1.2.840.114 [id number] Univers 00:00:00 00:00:00 Lynda PRIMARY 350.1.13.10 it y of C[place]2.7.2.[place] [id number] [address] 2019-06-24 2019-06-24 Refill [facility] 1.2.840.114 [id number] Univers 00:00:00 00:00:00 Lynda PRIMARY 350.1.13.10 it y of CARE [place].2.7.2.[place] [id number] [address] 2019-05-13 2019-05-13 Telephone [facility] 1.2.840.114 [id number] Univers 00:00:00 00:00:00 Lynda PRIMARY 350.1.13.10 it y of CARE [place].2.7.2.[place] [id number] Ar dical [address] 2019-05-13 2019-05-13 Telephone BaptisteCROWNPOINT [facility] 1.2.177.526 [id number] Univers 00:00:00 00:00:00 Christopher PRIMARY 350.1.13.10 ity of C[place].2.[place] [id number] [facility] [address] 2019-04-04 2019-04-04 [address] [facility] [id number] Univers 14:50:00 15:10:33 BRADEN ity of [facility] 2018-12-30 2018-12-30 Telephone [facility] 1.2.744.933 [id number] Univers 00:00:00 00:00:00 Jasson-Monika PRIMARY 350.1.13.10 ity of Thi C[place] 4.2.7.2.[place] [id number] Ar dical [address] 2018-11-25 2018-11-25 [facility] Arturo Rowley 1.2.840.114 [id number] [facility] 06:56:56 23:59:00 Encounter Aparna Sarmiento [facility] 350.1.13.10 ity of [place] [id number] [facility] [address] 2017-09-05 2017-10-23 Outpatient [facility] [id number] [place] 00:00:00 00:00:00 [facility] Office 2017-10-18 2017-10-18 Outpatient [facility] [id number] [place] 21:09:01 21:09:01 [facility] Office 2016-04-27 2016-09-27 Outpatient [facility] [id number] [place] 00:00:00 00:00:00 [facility] Office Results Test Description Test Time Test Comments Results Result [facility] e Comments - DUP VEIN UNI RT 2022-10-25 12:00:00 [facility] 1975 Sex: F Donald sotelo Name: CYNDIE PENN Unit No: [id number] EXAMS: CPT CODE: [id number] [place] [address] - DUP VEIN UNI RT INDICATION:Right leg pain STUDY: Grayscale real-time B-mode imaging with color flow and spectral flow Doppler analysis was performed of the lower extremity. Location: P1 4 COMPARISON: None FINDINGS: 1. Patent and compressible visualized portions of the common femoral, femoral, and popliteal veins to the level of the trifurcation. 2. Patent and compressible visualized portions of the profunda femoris and greater saphenous veins. 3. The ATV and peroneal veins are not evaluated. The posterior tibial vein is patent IMPRESSION: No evidence of DVT is visualized within the right femoral popliteal system these findings are confirmed with spectral Doppler The ATV and peroneal veins are not evaluated. The posterior tibial vein is patent at 1200 Reported and signed by: AMALIA HALL M.D. CC: Sharon Agudelo MD Technologist: BRICE DAWSON AB,T; Jelly [facility] Probe: Trscr Dt/Tm: 10/25/2022 (1200) by:[email or web address] Printed Date/Time: 10/25/2022 (1203) Name: CYNDIE PENN [facility] Phys: Sharon Griffith MD [address] : 1975 Age: 46 Sex: [place] [address] Loc: P.0702 1 Exam Date: 10/25/2022 Status: ADM IN PH: FAX: PAGE 1 Signed Report HGB HCT 2022-10-24 05:50:00 Test Item Value Reference Range Interpretation Comme nts HEMOGLOBIN (test code = HGB) 8.3 g/dL 12.0-16.0 L HEMATOCRIT (test code = HCT) 26.4 % 37.0-47.0 L HGB [id number] 07:37:00 Test Item Value Reference Range Interpretation Comments HEMOGLOBIN (test code = HGB) 8.4 g/dL 12.0-16.0 L HEMATOCRIT (test code = HCT) 26.1 % 37.0-47.0 L BASIC METABOLIC [id number] 06:41:00 Test Item Value Reference Range Interpretation Comments SODIUM (test code 138 mmol/L 136-145 N = NA) POTASSIUM (test 4.2 mmol/L 3.5-5.1 N code = K) CHLORIDE (test 105 mmol/l 98-107 N code = CL) CARBON DIOXIDE 27 mmol/L 20-31 N (test code = CO2) GLUCOSE (test code 96 ng/dL 74-106 N = GLU) BLOOD UREA 8 mg/dL 9-23 L NITROGEN (test code = BUN) GLOMERULAR >=60 max >60 The Glomerular FILTRATION RATE estimate mL/min Filtratio n Rate is a (test code = GFR) calculated parameterbased on serum Creatinin e, patient age and sex. GFR valuesless than 60 mL/min/1.73 square meters are odalys cative ofChronic Kidne y Disease. Values less than 15 mL/min/1.73squa re meters indicate Kidney failure. The calculation for GFR is based on the CK D-EPI (2020) calculat ion. This formulais race indifferent and is the recommended formula for GFR by the National Kidney Foundation for Adults.The GFR will not calculate i f the sex is unknown or if thepatient's ag e is <18 years. CREATININE (test 0.60 mg/dL 0.55-1.02 N code = CREAT) CALCIUM (test code 7.5 mg/dL 8.7-10.4 L = CA) CBC W/AUTO [id number] 06:22:00 Test Item Value Reference Range Interpretation Comments WHITE BLOOD CELL (test code = 8.2 x10 3/uL 4.8-10.8 N WBC) RED BLOOD CELL (test code = 3.15 x10 6/uL 4.20-5.40 L RBC) HEMOGLOBIN (test code = HGB) 9.3 g/dL 12.0-16.0 L HEMATOCRIT (test code = HCT) 28.4 % 37.0-47.0 L MEAN CELL VOLUME (test code = 90.2 fL 81.0-99.0 N MCV) MEAN CELL HGB (test code = MCH) 29.5 pg 27-31 N MEAN CELL HGB CONCENTRATION 32.7 G/DL 33-36.5 L (test code = MCHC) RED CELL DISTRIBUTION WIDTH 14.1 % 12.9-16.9 N (test code = RDW) PLATELET COUNT (test code = 244 x10 3/uL 150-440 N PLT) MEAN PLATELET VOLUME (test code 10.0 fL 8.9-12.4 N = MPV) NEUTROPHIL % (test code = NT%) 71.4 % 42.2-75.2 N LYMPHOCYTE % (test code = LY%) 18.9 % 20.5-51.1 L MONOCYTE % (test code = MO%) 8.4 % 1.7-9.3 N EOSINOPHIL % (test code = EO%) 0.6 % 0.0-7.0 N BASOPHIL % (test code = BA%) 0.2 % 0-2.5 N NEUTROPHIL # (test code = NT#) 5.83 x10 3/uL 1.80-7.70 N LYMPHOCYTE # (test code = LY#) 1.55 x10 3/uL 1.00-4.80 N MONOCYTE # (test code = MO#) 0.69 x10 3/uL 0.00-0.80 N EOSINOPHIL # (test code = EO#) 0.05 x10 3/uL 0.00-0.45 N BASOPHIL # (test code = BA#) 0.02 x10 3/uL 0.0-0.20 N - XR FLUOROSCOPY 0-60 [id number] 13:44:00 [facility] : 1975 Sex: FPatient Name: CYNDIE PENN Unit No: [id number] EXAMS: CPT CODE: [id number] XR FLUOROSCOPY 0- 60 MIN 20240 Fluoroscopy Location Code: D4 CLINICAL HISTORY: Right hip fracture Comments: Fluoroscopy was provided during total right hip arthroplasty. Approximately fluoroscopy time was 35.1 seconds. 2 fluoroscopic spot images were taken. IMPRESSION: Fluoroscopy services provided. Please see operative reportfor full details. at 1344 Reported and signed by: ALEXANDRA PEPE M.D. CC: Sharon Agudelo MD Technologist: NIR DOLAN(R) Fluoro Time: DAP(Gy m2): Air Kerma (mGy): Trscr Dt/Tm: 10/21/2022 (2165) by:[email or web address] Printed Date/Time: 10/21/2022(7339) Name: CYNDIE PENN [facility] Phys: [id number] - Sharon Agudelo MD [address] : 1975 Age: 46 Sex: [place] [address] Loc: P.0702 1 Exam Date: 10/21/2022 Status: ADM IN PH: FAX: PAGE 1 Signed Report- XR HIP W/PEL UNI 2+V [id number] 13:43:00 [facility] : 1975 Sex: FPatient Name: CYNDIE PENN Unit No: [id number] EXAMS: CPT CODE: [id number] XR HIP W/PEL UNI 2+[place] [address] Right hip, 2 views Location Code: D4 CLINICAL HISTORY: post op COMMENTS: AP and frogleg lateral views of the right hip demonstrate postoperative total right hip arthroplasty which is in satisfactory alignment. Hardware is intact. Postoperative surgical lor noted. IMPRESSION: 1. Stable postoperative total right hip arthroplasty. at 1343 Reported and signed by: ALEXANDRA PEPE M.D. CC: Balbir Menchaca MD; Sharon Agudelo MD Technologist:Rika Greenfield Time: DAP (Gy m2): Air Kerma (mGy): Trscr Dt/Tm: 10/21/2022 (1343) by:Manohar Printed Date/Time: 10/21/2022 (1347) Name: CYNDIE PENN [facility] Phys: Balbir Santiago MD [address] : 1975 Age: 46 Sex: [place] [address] Loc: P.0702 1 Exam Date: 10/21/2022 Status: ADM IN PH: FAX: PAGE 1 Signed ReportBASIC METABOLIC [id number] 07:03:00 Test Item Value Reference Range Interpretation Comments SODIUM (test code 135 mmol/L 136-145 L = NA) POTASSIUM (test 4.3 mmol/L 3.5-5.1 N code = K) CHLORIDE (test 101 mmol/l 98-107 N code = CL) CARBON DIOXIDE 29 mmol/L 20-31 N (test code = CO2) GLUCOSE (test code 71 ng/dL 74-106 L = GLU) BLOOD UREA 9 mg/dL 9-23 N NITROGEN (test code = BUN) GLOMERULAR >=60 max >60 The Glomerular FILTRATION RATE estimate mL/min Filtratio n Rate is a (test code = GFR) calculated parameterbased on serum Creatinin e, patient age and sex. GFR valuesless than 60 mL/min/1.73 square meters are odalys cative ofChronic Kidne y Disease. Values less than 15 mL/min/1.73squa re meters indicate Kidney failure. The calculation for GFR is based on the CK D-EPI (2020) calculat ion. This formulais race indifferent and is the recommended formula for GFR by the National Kidney Foundation for Adults.The GFR will not calculate i f the sex is unknown or if thepatient's ag e is <18 years. CREATININE (test 0.80 mg/dL 0.55-1.02 N code = CREAT) CALCIUM (test code 8.8 mg/dL 8.7-10.4 N = CA) CBC W/AUTO [id number] 07:03:00 Test Item Value Reference Range Interpretation Comments WHITE BLOOD CELL (test code = 5.4 x10 3/uL 4.8-10.8 N WBC) RED BLOOD CELL (test code = 4.33 x10 6/uL 4.20-5.40 N RBC) HEMOGLOBIN (test code = HGB) 12.6 g/dL 12.0-16.0 N HEMATOCRIT (test code = HCT) 39.0 % 37.0-47.0 N MEAN CELL VOLUME (test code = 90.1 fL 81.0-99.0 N MCV) MEAN CELL HGB (test code = MCH) 29.1 pg 27-31 N MEAN CELL HGB CONCENTRATION 32.3 G/DL 33-36.5 L (test code = MCHC) RED CELL DISTRIBUTION WIDTH 13.9 % 12.9-16.9 N (test code = RDW) PLATELET COUNT (test code = 332 x10 3/uL 150-440 N PLT) MEAN PLATELET VOLUME (test code 10.3 fL 8.9-12.4 N = MPV) NEUTROPHIL % (test code = NT%) 50.1 % 42.2-75.2 N LYMPHOCYTE % (test code = LY%) 37.8 % 20.5-51.1 N MONOCYTE % (test code = MO%) 8.0 % 1.7-9.3 N EOSINOPHIL % (test code = EO%) 2.6 % 0.0-7.0 N BASOPHIL % (test code = BA%) 1.3 % 0-2.5 N NEUTROPHIL # (test code = NT#) 2.71 x10 3/uL 1.80-7.70 N LYMPHOCYTE # (test code = LY#) 2.04 x10 3/uL 1.00-4.80 N MONOCYTE # (test code = MO#) 0.43 x10 3/uL 0.00-0.80 N EOSINOPHIL # (test code = EO#) 0.14 x10 3/uL 0.00-0.45 N BASOPHIL # (test code = BA#) 0.07 x10 3/uL 0.0-0.20 N BASIC METABOLIC [id number] 07:48:00 Test Item Value Reference Range Interpretation Comments SODIUM (test code 138 mmol/L 136-145 N = NA) POTASSIUM (test 3.9 mmol/L 3.5-5.1 N code = K) CHLORIDE (test 103 mmol/l 98-107 N code = CL) CARBON DIOXIDE 29 mmol/L 20-31 N (test code = CO2) GLUCOSE (test code 94 ng/dL 74-106 N = GLU) BLOOD UREA 14 mg/dL 9-23 N NITROGEN (test code = BUN) GLOMERULAR >=60 max >60 The Glomerular FILTRATION RATE estimate mL/min Filtratio n Rate is a (test code = GFR) calculated parameterbased on serum Creatinin e, patient age and sex. GFR valuesless than 60 mL/min/1.73 square meters are odalys cative ofChronic Kidne y Disease. Values less than 15 mL/min/1.73squa re meters indicate Kidney failure. The calculation for GFR is based on the CK D-EPI (2020) calculat ion. This formulais race indifferent and is the recommended formula for GFR by the [employer] for Adults.The GFR will not calculate i f the sex is unknown or if thepatient's ag e is <18 years. CREATININE (test 0.80 mg/dL 0.55-1.02 N code = CREAT) CALCIUM (test code 8.2 mg/dL 8.7-10.4 L = CA) CBC W/AUTO [id number] 07:03:00 Test Item Value Reference Range Interpretation Comments WHITE BLOOD CELL (test code = 6.6 x10 3/uL 4.8-10.8 N WBC) RED BLOOD CELL (test code = 4.20 x10 6/uL 4.20-5.40 N RBC) HEMOGLOBIN (test code = HGB) 12.0 g/dL 12.0-16.0 N HEMATOCRIT (test code = HCT) 37.0 % 37.0-47.0 N MEAN CELL VOLUME (test code = 88.1 fL 81.0-99.0 N MCV) MEAN CELL HGB (test code = MCH) 28.6 pg 27-31 N MEAN CELL HGB CONCENTRATION 32.4 G/DL 33-36.5 L (test code = MCHC) RED CELL DISTRIBUTION WIDTH 13.8 % 12.9-16.9 N (test code = RDW) PLATELET COUNT (test code = 305 x10 3/uL 150-440 N PLT) MEAN PLATELET VOLUME (test code 10.2 fL 8.9-12.4 N = MPV) NEUTROPHIL % (test code = NT%) 54.6 % 42.2-75.2 N LYMPHOCYTE % (test code = LY%) 33.4 % 20.5-51.1 N MONOCYTE % (test code = MO%) 8.8 % 1.7-9.3 N EOSINOPHIL % (test code = EO%) 2.0 % 0.0-7.0 N BASOPHIL % (test code = BA%) 0.9 % 0-2.5 N NEUTROPHIL # (test code = NT#) 3.62 x10 3/uL 1.80-7.70 N LYMPHOCYTE # (test code = LY#) 2.21 x10 3/uL 1.00-4.80 N MONOCYTE # (test code = MO#) 0.58 x10 3/uL 0.00-0.80 N EOSINOPHIL # (test code = EO#) 0.13 x10 3/uL 0.00-0.45 N BASOPHIL # (test code = BA#) 0.06 x10 3/uL 0.0-0.20 N T3 [id number] 04:08:00 Test Item Value Reference Range Interpretation Comments T3 FREE (test code = 2.5 pg/mL 2.0-4.4 Perform ed At: [facility] T3F) [id number] [place], [place] [id number] Kyle L MD Ph:[phone] T4 [id number] 17:59:00 Test Item Value Reference Range Interpretation Comments T4 FREE (test code = T4F) 0.68 ng/dL 0.89-1.76 L THYROID STIMULATING [id number] 05:14:00 Test Item Value Reference Range Interpretation Comments THYROID STIMULATING HORMONE 46.89 mIU/mL 0.55-4.78 H (test code = TSH) BASIC METABOLIC [id number] 05:05:00 Test Item Value Reference Range Interpretation Comments SODIUM (test code 141 mmol/L 136-145 N = NA) POTASSIUM (test 4.0 mmol/L 3.5-5.1 N code = K) CHLORIDE (test 105 mmol/l 98-107 N code = CL) CARBON DIOXIDE 28 mmol/L 20-31 N (test code = CO2) GLUCOSE (test code 92 ng/dL 74-106 N = GLU) BLOOD UREA 6 mg/dL 9-23 L NITROGEN (test code = BUN) GLOMERULAR >=60 max >60 The Glomerular FILTRATION RATE estimate mL/min Filtratio n Rate is a (test code = GFR) calculated parameterbased on serum Creatinin e, patient age and sex. GFR valuesless than 60 mL/min/1.73 square meters are odalys cative ofChronic Kidne y Disease. Values less than 15 mL/min/1.73squa re meters indicate Kidney failure. The calculation for GFR is based on the CK D-EPI (2020) calculat ion. This formulais race indifferent and is the recommended formula for GFR by the National Kid[employer] Foundation for Adults.The GFR will not calculate i f the sex is unknown or if thepatient's ag e is <18 years. CREATININE (test 0.70 mg/dL 0.55-1.02 N code = CREAT) CALCIUM (test code 8.6 mg/dL 8.7-10.4 L = CA) CBC W/AUTO [id number] 04:57:00 Test Item Value Reference Range Interpretation Comments WHITE BLOOD CELL (test code = 5.4 x10 3/uL 4.8-10.8 N WBC) RED BLOOD CELL (test code = 4.09 x10 6/uL 4.20-5.40 L RBC) HEMOGLOBIN (test code = HGB) 12.0 g/dL 12.0-16.0 N HEMATOCRIT (test code = HCT) 37.0 % 37.0-47.0 N MEAN CELL VOLUME (test code = 90.5 fL 81.0-99.0 N MCV) MEAN CELL HGB (test code = MCH) 29.3 pg 27-31 N MEAN CELL HGB CONCENTRATION 32.4 G/DL 33-36.5 L (test code = MCHC) RED CELL DISTRIBUTION WIDTH 13.9 % 12.9-16.9 N (test code = RDW) PLATELET COUNT (test code = 283 x10 3/uL 150-440 N PLT) MEAN PLATELET VOLUME (test code 10.1 fL 8.9-12.4 N = MPV) NEUTROPHIL % (test code = NT%) 48.3 % 42.2-75.2 N LYMPHOCYTE % (test code = LY%) 40.4 % 20.5-51.1 N MONOCYTE % (test code = MO%) 7.2 % 1.7-9.3 N EOSINOPHIL % (test code = EO%) 2.6 % 0.0-7.0 N BASOPHIL % (test code = BA%) 1.1 % 0-2.5 N NEUTROPHIL # (test code = NT#) 2.63 x10 3/uL 1.80-7.70 N LYMPHOCYTE # (test code = LY#) 2.20 x10 3/uL 1.00-4.80 N MONOCYTE # (test code = MO#) 0.39 x10 3/uL 0.00-0.80 N EOSINOPHIL # (test code = EO#) 0.14 x10 3/uL 0.00-0.45 N BASOPHIL # (test code = BA#) 0.06 x10 3/uL 0.0-0.20 N - CT PELVIS W/O [id number] 20:22:00 [facility] 1975 Sex: FPatient Name: CYNDIE PENN Unit No: [id number] EXAMS: CPT CODE: [id number] CT PELVIS W/O CONTRAST [id number] EXAM: CT PELVIS WITHOUT CONTRAST INDICATION: fall, hip pain ?acute fx? hx chronic fx LOCATION: H50 COMPARISON: Right hip radiograph dated 10/16/2022 at 1818 hours TECHNIQUE: CT of the pelvis was performed with no intravenous contrast. All CT scans are performed using radiation dose reduction technique. Technical factors are evaluated and adjusted to insure appropriate moderation of exposure. Automated dose management technology is applied to adjust the radiation dose to minimize exposure while achieving a diagnostic quality image. FINDINGS: Statements: Lack of intravenous contrast compromises evaluation of pelvic organs and vasculature. Bladder/Reproductive system: Evaluation of the bladder islimited, but no obvious bladder abnormality is present. Uterus is not clearly seen, possibly surgically absent. Gastrointestinal: No bowel obstruction or perienteric inflammation. The appendix is not visualized. Vascular: Pelvic vasculature is unremarkable. Lymphatics: No enlarged lymph nodes by CT size criteria. Bones/Soft Tissues: There is a right femoral neck fracture noted in nonunion. The lyticlesion suspected on prior radiograph appears to represent chronic erosion into the right greater troc hanter by the fracture in nonunion. No acute fracture or malalignment is seen. No ventral hernias. Peritoneum/Other: No extraluminal air. No extraluminal fluid. 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 No acute fracture is seen. at 2021 Reported and signed by: ADELFO CUTELR M.D. Name: CYNDIE PENN [facility] Phys: CHEYAN.Sabrina Jaime MD [address] : 1975 Age: 46 Sex: [place] [address] Loc: P.ERMS 2 Exam Date: 10/16/2022 Status: ADM IN PH: FAX: PAGE 1 Signed Report (CONTINUED) Patient Name: CYNDIE PENN Unit No: [id number] EXAMS: CPT CODE: [id number] CT PELVIS W/O CONTRAST 38187 (Continued) CC: Felix Artis MD Technologist: SORAYA KING (Issa) CTDI: 9.96 DLP: 275 Trscr Dt/Tm: 10/16/2022 (2021) by:[email or web address] Printed Date/Time: 10/16/2022 (2024) Name: CYNDIE PENN [facility] Phys: CHECH.Sabrina Jaime MD [address] : 1975 Age: 46 Sex: [place] [address] Loc: PASHTYN 2 Exam Date: 10/16/2022 Status: ADM IN PH: FAX: PAGE 2 Signed Report- XR KNEE 1 OR 2 V [id number] 18:44:00 [facility] : 1975 Sex: FPatient Name: CYNDIE PENN Unit No: [id number] EXAMS: CPT CODE: [id number] XR KNEE 1 OR 2 V RT [id number]: - XR HIP W/PEL UNI 2+V RT, - XR KNEE 1 OR 2 V RT INDICATION: pain s/p fall yesterday 7am. LOCATION: H50 COMPARISON: None available. TECHNIQUE: 2 views of the right knee and right hip including APradiograph of the entire pelvis were obtained. FINDINGS: There is a lytic lesion seen at the right femur greater trochanter and femoral neck with pathologic acute fracture noted at the femoral neck. The distal fracture fragment is displaced superiorly. Right femoral head remains aligned with the acetabulum. No additional fracture or malalignment is seen. The soft tissues are unremarkable. IMPRESSION:Lytic lesion at the right greater trochanter/femoral neck with underlying pathologic fracture. at 1844 Reported and signed by: ADELFO CUTLER M.D. CC: Sabrina Artis MD Technologist: Sahil Mathis Fluoro Time: DAP (Gy m2): Air Kerma (mGy): Trscr Dt/Tm: 10/16/2022 (1843) by:[email or web address] Printed Date/Time: 10/16/2022 (1846) Name: CYNDIE PENN [facility] Phys: CHESabrina Urbina MD [address] : 1975 Age: 46 Sex: [place] [address] Loc: P.ERS Exam Date: 10/16/2022 Status: REG ER PH: FAX: PAGE 1 Signed Report- XR HIP W/PEL UNI 2+V [id number] 18:44:00 [facility] : 1975 Sex: FPatient Name: CYNDIE PENN Unit No: [id number] EXAMS: CPT CODE: [id number] XR HIP W/PEL UNI 2+V RT [address] EXAM: - XR HIP W/PEL UNI 2+V RT, - XR KNEE 1 OR 2 V RT INDICATION: pain s/p fall yesterday 7am. LOCATION: H50 COMPARISON: None available. TECHNIQUE: 2 views of the right knee and right hip including AP radiograph of the entire pelvis were obtained. FINDINGS: There is a lytic lesion seen at the right femur greater trochanter and femoral neck with pathologic acute fracture noted at the femoral neck. The distal fracture fragment is displaced superiorly. Right femoral head remains aligned with the acetabulum. No additional fracture or malalignment is seen. The soft tissues are unremarkable. IMPRESSION: Lytic lesion at the right greater trochanter/femoral neck with underlying pathologic fracture. at 1844 Reported and signed by: ADELFO CUTLER M.D. CC: Sabrina Artis MD Technologist: Sahil Jugo Fluoro Time: DAP (Gy m2): Air Kerma (mGy): Trscr Dt/Tm: 10/16/2022 (1843) by:[email or web address] Printed Date/Time: 10/16/2022 (1846) Name: CYNDIE PENN [facility] Phys: CHECH.Sabrina Jaime MD [address] : 1975 Age: 46 Sex: [place] [address] Loc: P.ERS Exam Date: 10/16/2022 Status: REG ER PH: FAX: PAGE 1 Signed Report- XR SHOULDER 2 + V [id number] 18:44:00 [facility] : 1975 Sex: FPatient Name: CYNDIE PENN Unit No: [id number] EXAMS: CPT CODE: [id number] XR SHOULDER 2 + V RT 78193 EXAM: - XR SHOULDER 2 + V RT INDICATION: pain s/p fall yest am LOCATION: H50 COMPARISON: None available. TECHNIQUE: 2 views of the right shoulder were obtained. FINDINGS: No acute fracture or malalignment is seen. The soft tissues are unremarkable. IMPRESSION: No acute fracture or malalignment. at 1844 Reported and signed by: ADELFO CUTLER M.D. CC: Sabrina Artis MD Technologist: Sahil Greenfield Time: DAP (Gy m2): Air Kerma (mGy): Trscr Dt/Tm: 10/16/2022 (1843) by:[email or web address] Printed Date/Time: 10/16/2022 (1847) Name: CYNDIE PENN [facility] Phys: Sabrina Elena MD [address] : 1975 Age: 46 Sex: [place] [address] Loc: P.ERS Exam Date: 10/16/2022 Status: REG ER PH: FAX: PAGE 1 Signed ReportECG 12 [id number] 23:41:58 Test Item Value Reference Range Interpretation Comments Ventricular rate 71 (test code = 253) Atrial rate (test 71 code = 255) IL interval (test 150 code = 266) QRSD interval (test 74 code = 260) QT interval (test 402 code = 264) QTC interval (test 436 code = 265) P axis 1 (test code = 67 267) QRS axis 1 (test code 66 = 268) T wave axis (test 50 code = 270) EKG impression (test ^^^ Poor data quality, code = 273) interpretation may be adversely affected-Normal sinus rhythm-Otherwise normal ECG-No previous ECGs available- [facility] [id number] 23:41:58 Test Item Value Reference Range Interpretation Comments Ventricular rate 71 (test code = 253) Atrial rate (test 71 code = 255) IL interval (test 150 code = 266) QRSD interval (test 74 code = 260) QT interval (test 402 code = 264) QTC interval (test 436 code = 265) P axis 1 (test code = 67 267) QRS axis 1 (test code 66 = 268) T wave axis (test 50 code = 270) EKG impression (test ^^^ Poor data quality, code = 273) interpretation may be adversely affected-Normal sinus rhythm-Otherwise normal ECG-No previous ECGs available- [facility] [id number] 20:13:00 Test Item Value Reference Range Interpretation Comments Urine culture (test SEE COMMENT Bacteriu magy screen code = 9313447) negative. [facility] [id number] 20:13:00 Test Item Value Reference Range Interpretation Comments Urine culture (test SEE COMMENT Bacteriu magy screen code = 2066648) negative. [facility] TexasInfluenza virus A and B [id number] 13:55:55 Test Item Value Reference Range Interpretation Comments SARS-CoV-2 (COVID-19) RNA Not detected [Presence] in Respiratory specimen by SONNY with probe detection (test code = 30606-3) Whether patient resides in a No congregate care setting (test code = 03067-7) Date and time of symptom onset Unknown (test code = 30129-1) Whether the patient was No hospitalized for condition of interest (test code = 19492-7) Whether the patient was admitted No to intensive care unit (ICU) for condition of interest (test code = 27353-5) Whether patient is employed in a No healthcare setting (test code = 27487-3) Whether the patient has symptoms No related to condition of interest (test code = 75698-2) status (test code = No 31425-8) [facility] [id number] 04:45:00 Test Item Value Reference Range Interpretation Comments POCT PREG (test code = 1605) Negative On board controls acceptable with Yes C Line (test code = 3574) POCT PREG LOT # (test code = 3574) [id number] POCT PREG TEST DATE (test 03/28/2024 code = 3576) [facility]. METABOLIC PANEL (31560)[id number] 02:32:10 Test Item Value Reference Range Interpretation Comments NA (test code = 139 mmol/L 135-145 0773512783) K (test code = 3.4 mmol/L 3.5-5.0 L 3516642036) CL (test code = 103 mmol/L 98-108 7848535086) CO2 TOTAL (test code = 28 mmol/L 23-31 9942053632) AGAP (test code = 8 2-16 3874187370) BUN (test code = 9 mg/dL 7-23 8119686412) GLUCOSE (test code = 77 mg/dL 70-110 9151989387) CREATININE (test code = 0.82 mg/dL 0.50-1.04 3310330104) TOTAL BILI (test code = 0.4 mg/dL 0.1-1.2 3472376557) CALCIUM (test code = 9.0 mg/dL 8.6-10.6 0919076254) T PROTEIN (test code = 7.3 g/dL 6.3-8.2 5812286848) ALBUMIN (test code = 4.3 g/dL 3.5-5.0 1946141112) ALK PHOS (test code = 98 U/L 34-122 0940091102) ALTv (test code = 20 U/L 5-35 2-6) AST(SGOT) (test code = 23 U/L 13-40 8953553097) eGFR (test code = 75.4 mL/min/1.73m2 4040119441) JAQUELIN (test code = JAQUELIN) Association of [...] tests). Lab Interpretation Abnormal (test code = 28934-0) [facility] WITH [id number] 02:21:48 Test Item Value Reference Range Interpretation Comments WBC (test code = 10.63 See_Comment [Automated 1954-2) message] The sy stem which generated this result transmitted reference range : 4.30 - 11.10 10*3/?L. The reference range was not used to interpret this result as normal/abnormal . RBC (test code = 4.30 See_Comment [Automated 329-8) message] The sy stem which generated this [...] RDW-SD (test code = 47.6 fL 39.0-49.9 98495-3) RDW-CV (test code = 15.1 % 12.0-15.5 788-0) PLT (test code = 341 See_Comment [Automated 577-3) message] The sy stem which generated this result transmitted reference range : 166 - 358 10*3/ ?L. The reference r shahana was not used to interpret this result as normal/abnormal . MPV (test code = 9.8 fL 9.5-12.9 82437-0) NRBC/100 WBC (test 0.0 See_Comment [Automat ed code = 7301096848) message] The system which generated this result transmitted reference range : 0.0 - 10.0 /100 WBCs. The refer ence range was not u sed to interpret th is result as normal/abnormal . NRBC x10^3 (test code See_Comment [Auto mated = 9958209771) message] The s ystem which generated this result transmitted reference range : 10*3/?L. The reference range was not used to interpret this result as normal/abnormal . GRAN MAT (NEUT) % 67.0 % (test code = 770-8) IMM GRAN % (test code 0.30 % = 9560512290) LYMPH % (test code = 24.5 % 736-9) MONO % (test code = 6.9 % 5905-5) EOS % (test code = 0.7 % 713-8) BASO % (test code = 0.6 % 706-2) GRAN MAT x10^3(ANC) 7.14 10*3/uL 1.88-7.09 H (test code = 5810989459) IMM GRAN x10^3 (test 0.03 10*3/uL 0.00-0.06 code = 6177211719) LYMPH x10^3 (test code 2.60 10*3/uL 1.32-3.29 = 731-0) MONO x10^3 (test code 0.73 10*3/uL 0.33-0.92 = 742-7) EOS x10^3 (test code = 0.07 10*3/uL 0.03-0.39 711-2) BASO x10^3 (test code 0.06 10*3/uL 0.01-0.07 = 704-7) Lab Interpretation Abnormal (test code = 18859-6) [facility] [id number] 00:00:00 Test Item Value Reference Range Interpretation Comments GLUCOSE (test code = 2217) 93 MG/DL BUN (test code = 2208) 10 MG/DL CREATININE (test code = 2214) 0.81 MG/DL eGFR AMER. (test code 103 ML/MIN/1.73 = 58377) eGFR NON- AMER. (test 89 ML/MIN/1.73 code = 21783) CALC BUN/CREAT (test code = 12 RATIO [...] code = 2219) 22 U/L COMPREHENSIVE METABOLIC [id number] 00:00:00 Test Item Value Reference Range Interpretation Comments GLUCOSE (test code = 2217) 93 MG/DL BUN (test code = 2208) 10 MG/DL CREATININE (test code = 2214) 0.81 MG/DL eGFR AMER. (test code 103 ML/MIN/1.73 = 67334) eGFR NON- AMER. (test 89 ML/MIN/1.73 code = 30303) CALC BUN/CREAT (test code = 12 RATIO [...] code = 2219) 22 U/L CBC W/AUTO [id number] 00:00:00 Test Item Value Reference Range Interpretation [...] NUCLEATED RBCS (test code = 0.00 K/UL 97898) CBC W/AUTO [id number] 00:00:00 Test Item Value Reference Range Interpretation [...] NUCLEATED RBCS (test code = 0.00 K/UL 56691) CBC W/AUTO [id number] 00:00:00 Test Item Value Reference Range Interpretation [...] NUCLEATED RBCS (test code = 0.00 K/UL 97162) LIPID [id number] 00:00:00 Test Item Value Reference Range Interpretation Comments CHOLESTEROL (test code = 2210) 328 MG/DL TRIGLYCERIDES (test code = 2232) 614 MG/DL HDL CHOLESTEROL (test code = 42 MG/DL 2220) CALC LDL CHOL (test code = 2237) (NOTE) MG/DL RISK RATIO LDL/HDL (test code = (NOTE) RATIO 2238) LIPID [id number] 00:00:00 Test Item Value Reference Range Interpretation Comments CHOLESTEROL (test code = 2210) 328 MG/DL TRIGLYCERIDES (test code = 2232) 614 MG/DL HDL CHOLESTEROL (test code = 42 MG/DL 2220) CALC LDL CHOL (test code = 2237) (NOTE) MG/DL RISK RATIO LDL/HDL (test code = (NOTE) RATIO 2238) [id number] 00:00:00 Test Item Value Reference Range Interpretation Comments TSH, THIRD GENERATION (test code 4.310 UIU/ML = 2821) [id number] 00:00:00 Test Item Value Reference Range Interpretation Comments TSH, THIRD GENERATION (test code 4.310 UIU/ML = 2821) [id number] 00:00:00 Test Item Value Reference Range Interpretation Comments TSH, THIRD GENERATION (test code 4.310 UIU/ML = 2821) HEMOGLOBIN [id number] 00:00:00 Test Item Value Reference Range Interpretation Comments HEMOGLOBIN A1c (test code = 95893) 5.4 % HEMOGLOBIN [id number] 00:00:00 Test Item Value Reference Range Interpretation Comments HEMOGLOBIN A1c (test code = 05854) 5.4 % HEMOGLOBIN [id number] 00:00:00 Test Item Value Reference Range Interpretation Comments HEMOGLOBIN A1c (test code = 02552) 5.4 % [id number] 00:00:00 Test Item Value Reference Range Interpretation Comments LITHIUM (test code = 2039) 0.63 MEQ/L [id number] 00:00:00 Test Item Value Reference Range Interpretation Comments LITHIUM (test code = 203) 0.63 MEQ/L [id number] 00:00:00 Test Item Value Reference Range Interpretation Comments LITHIUM (test code = 2038) 0.63 MEQ/L COMPREHENSIVE METABOLIC [id number] 00:00:00 Test Item Value Reference Range Interpretation Comments GLUCOSE (test code = 2217) 93 MG/DL BUN (test code = 2208) 10 MG/DL CREATININE (test code = 2214) 0.81 MG/DL eGFR AMER. (test code 103 ML/MIN/1.73 = 50211) eGFR NON- AMER. (test 89 ML/MIN/1.73 code = 88177) CALC BUN/CREAT (test code = 12 RATIO [...] code = 2219) 22 U/L COMPREHENSIVE METABOLIC [id number] 00:00:00 Test Item Value Reference Range Interpretation Comments GLUCOSE (test code = 2217) 93 MG/DL BUN (test code = 2208) 10 MG/DL CREATININE (test code = 2214) 0.81 MG/DL eGFR AMER. (test code 103 ML/MIN/1.73 = 76732) eGFR NON- AMER. (test 89 ML/MIN/1.73 code = 21800) CALC BUN/CREAT (test code = 12 RATIO [...] code = 2219) 22 U/L CBC W/AUTO [id number] 00:00:00 Test Item Value Reference Range Interpretation [...] NUCLEATED RBCS (test code = 0.00 K/UL 29692) CBC W/AUTO [id number] 00:00:00 Test Item Value Reference Range Interpretation [...] NUCLEATED RBCS (test code = 0.00 K/UL 19138) CBC W/AUTO [id number] 00:00:00 Test Item Value Reference Range Interpretation [...] NUCLEATED RBCS (test code = 0.00 K/UL 51494) LIPID [id number] 00:00:00 Test Item Value Reference Range Interpretation Comments CHOLESTEROL (test code = 2210) 328 MG/DL TRIGLYCERIDES (test code = 2232) 614 MG/DL HDL CHOLESTEROL (test code = 42 MG/DL 2220) CALC LDL CHOL (test code = 2237) (NOTE) MG/DL RISK RATIO LDL/HDL (test code = (NOTE) RATIO 2238) LIPID [id number] 00:00:00 Test Item Value Reference Range Interpretation Comments CHOLESTEROL (test code = 2210) 328 MG/DL TRIGLYCERIDES (test code = 2232) 614 MG/DL HDL CHOLESTEROL (test code = 42 MG/DL 2220) CALC LDL CHOL (test code = 2237) (NOTE) MG/DL RISK RATIO LDL/HDL (test code = (NOTE) RATIO 2238) [id number] 00:00:00 Test Item Value Reference Range Interpretation Comments TSH, THIRD GENERATION (test code 4.310 UIU/ML = 2821) [id number] 00:00:00 Test Item Value Reference Range Interpretation Comments TSH, THIRD GENERATION (test code 4.310 UIU/ML = 2821) [id number] 00:00:00 Test Item Value Reference Range Interpretation Comments TSH, THIRD GENERATION (test code 4.310 UIU/ML = 2821) HEMOGLOBIN [id number] 00:00:00 Test Item Value Reference Range Interpretation Comments HEMOGLOBIN A1c (test code = 83560) 5.4 % HEMOGLOBIN [id number] 00:00:00 Test Item Value Reference Range Interpretation Comments HEMOGLOBIN A1c (test code = 06728) 5.4 % HEMOGLOBIN [id number] 00:00:00 Test Item Value Reference Range Interpretation Comments HEMOGLOBIN A1c (test code = 16937) 5.4 % [id number] 00:00:00 Test Item Value Reference Range Interpretation Comments LITHIUM (test code = 2038) 0.63 MEQ/L [id number] 00:00:00 Test Item Value Reference Range Interpretation Comments LITHIUM (test code = 203) 0.63 MEQ/L [id number] 00:00:00 Test Item Value Reference Range Interpretation Comments LITHIUM (test code = 2039) 0.63 MEQ/L COMPREHENSIVE METABOLIC [id number] 00:00:00 Test Item Value Reference Range Interpretation Comments GLUCOSE (test code = 2217) 93 MG/DL BUN (test code = 2208) 10 MG/DL CREATININE (test code = 2214) 0.81 MG/DL eGFR AMER. (test code 103 ML/MIN/1.73 = 29048) eGFR NON- AMER. (test 89 ML/MIN/1.73 code = 95129) CALC BUN/CREAT (test code = 12 RATIO [...] code = 2219) 22 U/L CBC W/AUTO [id number] 00:00:00 Test Item Value Reference Range Interpretation [...] NUCLEATED RBCS (test code = 0.00 K/UL 77869) CBC W/AUTO [id number] 00:00:00 Test Item Value Reference Range Interpretation [...] NUCLEATED RBCS (test code = 0.00 K/UL 84462) LIPID [id number] 00:00:00 Test Item Value Reference Range Interpretation Comments CHOLESTEROL (test code = 2210) 328 MG/DL TRIGLYCERIDES (test code = 2232) 614 MG/DL HDL CHOLESTEROL (test code = 42 MG/DL 2220) CALC LDL CHOL (test code = 2237) (NOTE) MG/DL RISK RATIO LDL/HDL (test code = (NOTE) RATIO 2238) [id number] 00:00:00 Test Item Value Reference Range Interpretation Comments TSH, THIRD GENERATION (test code 4.310 UIU/ML = 2821) [id number] 00:00:00 Test Item Value Reference Range Interpretation Comments TSH, THIRD GENERATION (test code 4.310 UIU/ML = 2821) HEMOGLOBIN [id number] 00:00:00 Test Item Value Reference Range Interpretation Comments HEMOGLOBIN A1c (test code = 05031) 5.4 % HEMOGLOBIN [id number] 00:00:00 Test Item Value Reference Range Interpretation Comments HEMOGLOBIN A1c (test code = 12483) 5.4 % [id number] 00:00:00 Test Item Value Reference Range Interpretation Comments LITHIUM (test code = 2039) 0.63 MEQ/L [id number] 00:00:00 Test Item Value Reference Range Interpretation Comments LITHIUM (test code = 2039) 0.63 MEQ/L COMPREHENSIVE METABOLIC [id number] 00:00:00 Test Item Value Reference Range Interpretation Comments GLUCOSE (test code = 2217) 93 MG/DL BUN (test code = 2208) 10 MG/DL CREATININE (test code = 2214) 0.81 MG/DL eGFR AMER. (test code 103 ML/MIN/1.73 = 07647) eGFR NON- AMER. (test 89 ML/MIN/1.73 code = 94154) CALC BUN/CREAT (test code = 12 RATIO [...] code = 2219) 22 U/L COMPREHENSIVE METABOLIC [id number] 00:00:00 Test Item Value Reference Range Interpretation Comments GLUCOSE (test code = 2217) 93 MG/DL BUN (test code = 2208) 10 MG/DL CREATININE (test code = 2214) 0.81 MG/DL eGFR AMER. (test code 103 ML/MIN/1.73 = 87124) eGFR NON- AMER. (test 89 ML/MIN/1.73 code = 50043) CALC BUN/CREAT (test code = 12 RATIO [...] code = 2219) 22 U/L CBC W/AUTO [id number] 00:00:00 Test Item Value Reference Range Interpretation [...] NUCLEATED RBCS (test code = 0.00 K/UL 28449) CBC W/AUTO [id number] 00:00:00 Test Item Value Reference Range Interpretation [...] NUCLEATED RBCS (test code = 0.00 K/UL 03979) CBC W/AUTO [id number] 00:00:00 Test Item Value Reference Range Interpretation [...] NUCLEATED RBCS (test code = 0.00 K/UL 83121) LIPID [id number] 00:00:00 Test Item Value Reference Range Interpretation Comments CHOLESTEROL (test code = 2210) 328 MG/DL TRIGLYCERIDES (test code = 2232) 614 MG/DL HDL CHOLESTEROL (test code = 42 MG/DL 2220) CALC LDL CHOL (test code = 2237) (NOTE) MG/DL RISK RATIO LDL/HDL (test code = (NOTE) RATIO 2238) LIPID [id number] 00:00:00 Test Item Value Reference Range Interpretation Comments CHOLESTEROL (test code = 2210) 328 MG/DL TRIGLYCERIDES (test code = 2232) 614 MG/DL HDL CHOLESTEROL (test code = 42 MG/DL 2220) CALC LDL CHOL (test code = 2237) (NOTE) MG/DL RISK RATIO LDL/HDL (test code = (NOTE) RATIO 2238) [id number] 00:00:00 Test Item Value Reference Range Interpretation Comments TSH, THIRD GENERATION (test code 4.310 UIU/ML = 2821) [id number] 00:00:00 Test Item Value Reference Range Interpretation Comments TSH, THIRD GENERATION (test code 4.310 UIU/ML = 2821) [id number] 00:00:00 Test Item Value Reference Range Interpretation Comments TSH, THIRD GENERATION (test code 4.310 UIU/ML = 2821) HEMOGLOBIN [id number] 00:00:00 Test Item Value Reference Range Interpretation Comments HEMOGLOBIN A1c (test code = 97477) 5.4 % HEMOGLOBIN [id number] 00:00:00 Test Item Value Reference Range Interpretation Comments HEMOGLOBIN A1c (test code = 34290) 5.4 % HEMOGLOBIN [id number] 00:00:00 Test Item Value Reference Range Interpretation Comments HEMOGLOBIN A1c (test code = 24066) 5.4 % [id number] 00:00:00 Test Item Value Reference Range Interpretation Comments LITHIUM (test code = 2039) 0.63 MEQ/L [id number] 00:00:00 Test Item Value Reference Range Interpretation Comments LITHIUM (test code = 2039) 0.63 MEQ/L [id number] 00:00:00 Test Item Value Reference Range Interpretation Comments LITHIUM (test code = 2039) 0.63 MEQ/L COMPREHENSIVE METABOLIC [id number] 00:00:00 Test Item Value Reference Range Interpretation Comments GLUCOSE (test code = 2217) 93 MG/DL BUN (test code = 2208) 10 MG/DL CREATININE (test code = 2214) 0.81 MG/DL eGFR AMER. (test code 103 ML/MIN/1.73 = 40953) eGFR NON- AMER. (test 89 ML/MIN/1.73 code = 01368) CALC BUN/CREAT (test code = 12 RATIO [...] code = 2219) 22 U/L COMPREHENSIVE METABOLIC [id number] 00:00:00 Test Item Value Reference Range Interpretation Comments GLUCOSE (test code = 2217) 93 MG/DL BUN (test code = 2208) 10 MG/DL CREATININE (test code = 2214) 0.81 MG/DL eGFR AMER. (test code 103 ML/MIN/1.73 = 08694) eGFR NON- AMER. (test 89 ML/MIN/1.73 code = 84986) CALC BUN/CREAT (test code = 12 RATIO [...] code = 2219) 22 U/L CBC W/AUTO [id number] 00:00:00 Test Item Value Reference Range Interpretation [...] NUCLEATED RBCS (test code = 0.00 K/UL 56369) CBC W/AUTO [id number] 00:00:00 Test Item Value Reference Range Interpretation [...] NUCLEATED RBCS (test code = 0.00 K/UL 38273) CBC W/AUTO [id number] 00:00:00 Test Item Value Reference Range Interpretation [...] NUCLEATED RBCS (test code = 0.00 K/UL 23942) LIPID [id number] 00:00:00 Test Item Value Reference Range Interpretation Comments CHOLESTEROL (test code = 2210) 328 MG/DL TRIGLYCERIDES (test code = 2232) 614 MG/DL HDL CHOLESTEROL (test code = 42 MG/DL 2220) CALC LDL CHOL (test code = 2237) (NOTE) MG/DL RISK RATIO LDL/HDL (test code = (NOTE) RATIO 2238) LIPID [id number] 00:00:00 Test Item Value Reference Range Interpretation Comments CHOLESTEROL (test code = 2210) 328 MG/DL TRIGLYCERIDES (test code = 2232) 614 MG/DL HDL CHOLESTEROL (test code = 42 MG/DL 2220) CALC LDL CHOL (test code = 2237) (NOTE) MG/DL RISK RATIO LDL/HDL (test code = (NOTE) RATIO 2238) [id number] 00:00:00 Test Item Value Reference Range Interpretation Comments TSH, THIRD GENERATION (test code 4.310 UIU/ML = 2821) [id number] 00:00:00 Test Item Value Reference Range Interpretation Comments TSH, THIRD GENERATION (test code 4.310 UIU/ML = 2821) [id number] 00:00:00 Test Item Value Reference Range Interpretation Comments TSH, THIRD GENERATION (test code 4.310 UIU/ML = 2821) HEMOGLOBIN [id number] 00:00:00 Test Item Value Reference Range Interpretation Comments HEMOGLOBIN A1c (test code = 35951) 5.4 % HEMOGLOBIN [id number] 00:00:00 Test Item Value Reference Range Interpretation Comments HEMOGLOBIN A1c (test code = 32596) 5.4 % HEMOGLOBIN [id number] 00:00:00 Test Item Value Reference Range Interpretation Comments HEMOGLOBIN A1c (test code = 59574) 5.4 % [id number] 00:00:00 Test Item Value Reference Range Interpretation Comments LITHIUM (test code = 2038) 0.63 MEQ/L [id number] 00:00:00 Test Item Value Reference Range Interpretation Comments LITHIUM (test code = 203) 0.63 MEQ/L [id number] 00:00:00 Test Item Value Reference Range Interpretation Comments LITHIUM (test code = 203) 0.63 MEQ/L COMPREHENSIVE METABOLIC [id number] 00:00:00 Test Item Value Reference Range Interpretation Comments GLUCOSE (test code = 2217) 93 MG/DL BUN (test code = 2208) 10 MG/DL CREATININE (test code = 2214) 0.81 MG/DL eGFR AMER. (test code 103 ML/MIN/1.73 = 57352) eGFR NON- AMER. (test 89 ML/MIN/1.73 code = 66953) CALC BUN/CREAT (test code = 12 RATIO [...] code = 2219) 22 U/L COMPREHENSIVE METABOLIC [id number] 00:00:00 Test Item Value Reference Range Interpretation Comments GLUCOSE (test code = 2217) 93 MG/DL BUN (test code = 2208) 10 MG/DL CREATININE (test code = 2214) 0.81 MG/DL eGFR AMER. (test code 103 ML/MIN/1.73 = 51018) eGFR NON- AMER. (test 89 ML/MIN/1.73 code = 29854) CALC BUN/CREAT (test code = 12 RATIO [...] code = 2219) 22 U/L CBC W/AUTO [id number] 00:00:00 Test Item Value Reference Range Interpretation [...] NUCLEATED RBCS (test code = 0.00 K/UL 76601) CBC W/AUTO [id number] 00:00:00 Test Item Value Reference Range Interpretation [...] NUCLEATED RBCS (test code = 0.00 K/UL 01749) CBC W/AUTO [id number] 00:00:00 Test Item Value Reference Range Interpretation [...] NUCLEATED RBCS (test code = 0.00 K/UL 10300) LIPID [id number] 00:00:00 Test Item Value Reference Range Interpretation Comments CHOLESTEROL (test code = 2210) 328 MG/DL TRIGLYCERIDES (test code = 2232) 614 MG/DL HDL CHOLESTEROL (test code = 42 MG/DL 2220) CALC LDL CHOL (test code = 2237) (NOTE) MG/DL RISK RATIO LDL/HDL (test code = (NOTE) RATIO 2238) LIPID [id number] 00:00:00 Test Item Value Reference Range Interpretation Comments CHOLESTEROL (test code = 2210) 328 MG/DL TRIGLYCERIDES (test code = 2232) 614 MG/DL HDL CHOLESTEROL (test code = 42 MG/DL 2220) CALC LDL CHOL (test code = 2237) (NOTE) MG/DL RISK RATIO LDL/HDL (test code = (NOTE) RATIO 2238) [id number] 00:00:00 Test Item Value Reference Range Interpretation Comments TSH, THIRD GENERATION (test code 4.310 UIU/ML = 2821) [id number] 00:00:00 Test Item Value Reference Range Interpretation Comments TSH, THIRD GENERATION (test code 4.310 UIU/ML = 2821) [id number] 00:00:00 Test Item Value Reference Range Interpretation Comments TSH, THIRD GENERATION (test code 4.310 UIU/ML = 2821) HEMOGLOBIN [id number] 00:00:00 Test Item Value Reference Range Interpretation Comments HEMOGLOBIN A1c (test code = 76886) 5.4 % HEMOGLOBIN [id number] 00:00:00 Test Item Value Reference Range Interpretation Comments HEMOGLOBIN A1c (test code = 37882) 5.4 % HEMOGLOBIN [id number] 00:00:00 Test Item Value Reference Range Interpretation Comments HEMOGLOBIN A1c (test code = 62498) 5.4 % [id number] 00:00:00 Test Item Value Reference Range Interpretation Comments LITHIUM (test code = 2039) 0.63 MEQ/L [id number] 00:00:00 Test Item Value Reference Range Interpretation Comments LITHIUM (test code = 203) 0.63 MEQ/L [id number] 00:00:00 Test Item Value Reference Range Interpretation Comments LITHIUM (test code = 203) 0.63 MEQ/L COMPREHENSIVE METABOLIC [id number] 00:00:00 Test Item Value Reference Range Interpretation Comments GLUCOSE (test code = 2217) 93 MG/DL BUN (test code = 2208) 10 MG/DL CREATININE (test code = 2214) 0.81 MG/DL eGFR AMER. (test code 103 ML/MIN/1.73 = 38639) eGFR NON- AMER. (test 89 ML/MIN/1.73 code = 36222) CALC BUN/CREAT (test code = 12 RATIO [...] code = 2219) 22 U/L COMPREHENSIVE METABOLIC [id number] 00:00:00 Test Item Value Reference Range Interpretation Comments GLUCOSE (test code = 2217) 93 MG/DL BUN (test code = 2208) 10 MG/DL CREATININE (test code = 2214) 0.81 MG/DL eGFR AMER. (test code 103 ML/MIN/1.73 = 80561) eGFR NON- AMER. (test 89 ML/MIN/1.73 code = 95095) CALC BUN/CREAT (test code = 12 RATIO [...] code = 2219) 22 U/L CBC W/AUTO [id number] 00:00:00 Test Item Value Reference Range Interpretation [...] NUCLEATED RBCS (test code = 0.00 K/UL 22002) CBC W/AUTO [id number] 00:00:00 Test Item Value Reference Range Interpretation [...] NUCLEATED RBCS (test code = 0.00 K/UL 87198) CBC W/AUTO [id number] 00:00:00 Test Item Value Reference Range Interpretation [...] NUCLEATED RBCS (test code = 0.00 K/UL 63473) LIPID [id number] 00:00:00 Test Item Value Reference Range Interpretation Comments CHOLESTEROL (test code = 2210) 328 MG/DL TRIGLYCERIDES (test code = 2232) 614 MG/DL HDL CHOLESTEROL (test code = 42 MG/DL 2220) CALC LDL CHOL (test code = 2237) (NOTE) MG/DL RISK RATIO LDL/HDL (test code = (NOTE) RATIO 2238) LIPID [id number] 00:00:00 Test Item Value Reference Range Interpretation Comments CHOLESTEROL (test code = 2210) 328 MG/DL TRIGLYCERIDES (test code = 2232) 614 MG/DL HDL CHOLESTEROL (test code = 42 MG/DL 2220) CALC LDL CHOL (test code = 2237) (NOTE) MG/DL RISK RATIO LDL/HDL (test code = (NOTE) RATIO 2238) [id number] 00:00:00 Test Item Value Reference Range Interpretation Comments TSH, THIRD GENERATION (test code 4.310 UIU/ML = 2821) [id number] 00:00:00 Test Item Value Reference Range Interpretation Comments TSH, THIRD GENERATION (test code 4.310 UIU/ML = 2821) [id number] 00:00:00 Test Item Value Reference Range Interpretation Comments TSH, THIRD GENERATION (test code 4.310 UIU/ML = 2821) HEMOGLOBIN [id number] 00:00:00 Test Item Value Reference Range Interpretation Comments HEMOGLOBIN A1c (test code = 52713) 5.4 % HEMOGLOBIN [id number] 00:00:00 Test Item Value Reference Range Interpretation Comments HEMOGLOBIN A1c (test code = 54650) 5.4 % HEMOGLOBIN [id number] 00:00:00 Test Item Value Reference Range Interpretation Comments HEMOGLOBIN A1c (test code = 90415) 5.4 % [id number] 00:00:00 Test Item Value Reference Range Interpretation Comments LITHIUM (test code = 2039) 0.63 MEQ/L [id number] 00:00:00 Test Item Value Reference Range Interpretation Comments LITHIUM (test code = 2039) 0.63 MEQ/L [id number] 00:00:00 Test Item Value Reference Range Interpretation Comments LITHIUM (test code = 2039) 0.63 MEQ/L COMPREHENSIVE METABOLIC [id number] 00:00:00 Test Item Value Reference Range Interpretation Comments GLUCOSE (test code = 2217) 93 MG/DL BUN (test code = 2208) 10 MG/DL CREATININE (test code = 2214) 0.81 MG/DL eGFR AMER. (test code 103 ML/MIN/1.73 = 13243) eGFR NON- AMER. (test 89 ML/MIN/1.73 code = 25442) CALC BUN/CREAT (test code = 12 RATIO [...] code = 2219) 22 U/L COMPREHENSIVE METABOLIC [id number] 00:00:00 Test Item Value Reference Range Interpretation Comments GLUCOSE (test code = 2217) 93 MG/DL BUN (test code = 2208) 10 MG/DL CREATININE (test code = 2214) 0.81 MG/DL eGFR AMER. (test code 103 ML/MIN/1.73 = 98671) eGFR NON- AMER. (test 89 ML/MIN/1.73 code = 76105) CALC BUN/CREAT (test code = 12 RATIO [...] code = 2219) 22 U/L CBC W/AUTO [id number] 00:00:00 Test Item Value Reference Range Interpretation [...] NUCLEATED RBCS (test code = 0.00 K/UL 79963) CBC W/AUTO [id number] 00:00:00 Test Item Value Reference Range Interpretation [...] NUCLEATED RBCS (test code = 0.00 K/UL 12720) CBC W/AUTO [id number] 00:00:00 Test Item Value Reference Range Interpretation [...] NUCLEATED RBCS (test code = 0.00 K/UL 47096) LIPID [id number] 00:00:00 Test Item Value Reference Range Interpretation Comments CHOLESTEROL (test code = 2210) 328 MG/DL TRIGLYCERIDES (test code = 2232) 614 MG/DL HDL CHOLESTEROL (test code = 42 MG/DL 2220) CALC LDL CHOL (test code = 2237) (NOTE) MG/DL RISK RATIO LDL/HDL (test code = (NOTE) RATIO 2238) LIPID [id number] 00:00:00 Test Item Value Reference Range Interpretation Comments CHOLESTEROL (test code = 2210) 328 MG/DL TRIGLYCERIDES (test code = 2232) 614 MG/DL HDL CHOLESTEROL (test code = 42 MG/DL 2220) CALC LDL CHOL (test code = 2237) (NOTE) MG/DL RISK RATIO LDL/HDL (test code = (NOTE) RATIO 2238) [id number] 00:00:00 Test Item Value Reference Range Interpretation Comments TSH, THIRD GENERATION (test code 4.310 UIU/ML = 2821) [id number] 00:00:00 Test Item Value Reference Range Interpretation Comments TSH, THIRD GENERATION (test code 4.310 UIU/ML = 2821) [id number] 00:00:00 Test Item Value Reference Range Interpretation Comments TSH, THIRD GENERATION (test code 4.310 UIU/ML = 2821) HEMOGLOBIN [id number] 00:00:00 Test Item Value Reference Range Interpretation Comments HEMOGLOBIN A1c (test code = 70586) 5.4 % HEMOGLOBIN [id number] 00:00:00 Test Item Value Reference Range Interpretation Comments HEMOGLOBIN A1c (test code = 28888) 5.4 % HEMOGLOBIN [id number] 00:00:00 Test Item Value Reference Range Interpretation Comments HEMOGLOBIN A1c (test code = 67349) 5.4 % [id number] 00:00:00 Test Item Value Reference Range Interpretation Comments LITHIUM (test code = 2039) 0.63 MEQ/L [id number] 00:00:00 Test Item Value Reference Range Interpretation Comments LITHIUM (test code = 2039) 0.63 MEQ/L [id number] 00:00:00 Test Item Value Reference Range Interpretation Comments LITHIUM (test code = 2039) 0.63 MEQ/L COMPREHENSIVE METABOLIC [id number] 00:00:00 Test Item Value Reference Range Interpretation Comments GLUCOSE (test code = 2217) 93 MG/DL BUN (test code = 2208) 10 MG/DL CREATININE (test code = 2214) 0.81 MG/DL eGFR AMER. (test code 103 ML/MIN/1.73 = 88317) eGFR NON- AMER. (test 89 ML/MIN/1.73 code = 78935) CALC BUN/CREAT (test code = 12 RATIO [...] code = 2219) 22 U/L COMPREHENSIVE METABOLIC [id number] 00:00:00 Test Item Value Reference Range Interpretation Comments GLUCOSE (test code = 2217) 93 MG/DL BUN (test code = 2208) 10 MG/DL CREATININE (test code = 2214) 0.81 MG/DL eGFR AMER. (test code 103 ML/MIN/1.73 = 53955) eGFR NON- AMER. (test 89 ML/MIN/1.73 code = 89023) CALC BUN/CREAT (test code = 12 RATIO [...] code = 2219) 22 U/L CBC W/AUTO [id number] 00:00:00 Test Item Value Reference Range Interpretation [...] NUCLEATED RBCS (test code = 0.00 K/UL 88556) CBC W/AUTO [id number] 00:00:00 Test Item Value Reference Range Interpretation [...] NUCLEATED RBCS (test code = 0.00 K/UL 57064) CBC W/AUTO [id number] 00:00:00 Test Item Value Reference Range Interpretation [...] NUCLEATED RBCS (test code = 0.00 K/UL 72314) LIPID [id number] 00:00:00 Test Item Value Reference Range Interpretation Comments CHOLESTEROL (test code = 2210) 328 MG/DL TRIGLYCERIDES (test code = 2232) 614 MG/DL HDL CHOLESTEROL (test code = 42 MG/DL 2220) CALC LDL CHOL (test code = 2237) (NOTE) MG/DL RISK RATIO LDL/HDL (test code = (NOTE) RATIO 2238) LIPID [id number] 00:00:00 Test Item Value Reference Range Interpretation Comments CHOLESTEROL (test code = 2210) 328 MG/DL TRIGLYCERIDES (test code = 2232) 614 MG/DL HDL CHOLESTEROL (test code = 42 MG/DL 2220) CALC LDL CHOL (test code = 2237) (NOTE) MG/DL RISK RATIO LDL/HDL (test code = (NOTE) RATIO 2238) [id number] 00:00:00 Test Item Value Reference Range Interpretation Comments TSH, THIRD GENERATION (test code 4.310 UIU/ML = 2821) [id number] 00:00:00 Test Item Value Reference Range Interpretation Comments TSH, THIRD GENERATION (test code 4.310 UIU/ML = 2821) [id number] 00:00:00 Test Item Value Reference Range Interpretation Comments TSH, THIRD GENERATION (test code 4.310 UIU/ML = 2821) HEMOGLOBIN [id number] 00:00:00 Test Item Value Reference Range Interpretation Comments HEMOGLOBIN A1c (test code = 30112) 5.4 % HEMOGLOBIN [id number] 00:00:00 Test Item Value Reference Range Interpretation Comments HEMOGLOBIN A1c (test code = 80404) 5.4 % HEMOGLOBIN [id number] 00:00:00 Test Item Value Reference Range Interpretation Comments HEMOGLOBIN A1c (test code = 80941) 5.4 % [id number] 00:00:00 Test Item Value Reference Range Interpretation Comments LITHIUM (test code = 2039) 0.63 MEQ/L [id number] 00:00:00 Test Item Value Reference Range Interpretation Comments LITHIUM (test code = 2039) 0.63 MEQ/L [id number] 00:00:00 Test Item Value Reference Range Interpretation Comments LITHIUM (test code = 2039) 0.63 MEQ/L Notes Date/Time Note Provider Source 2022-10-30 06:42:00-00:00 [id number] [facility] [address] [place] [address] PATIENT NAME: CYNDIE PENN ADMIT DATE: 3 ACCOUNT NO: [id number] ROOM NO: P.0702 AGE: 46 REPORT TYPE: DISCHARGE SUMMARY SEX: F ADMITTING PHYSICIAN:Sharon Agudelo MD ATTENDING PHYSICIAN:Sharon Agudelo MD ADMISSION DATE: 10/17/2022 08:35:00 DISCHARGE DATE: 10/25/2022 16:15:00 FINAL DIAGNOSES: 1. Right hip fracture with nonunion, status post right SAMUEL. 2. Acute post-residual pain. 3. Bipolar. 4. Depression. 5. Acute blood loss anemia. 6. Acute post-residual pain. MEDICATIONS AT DISCHARGE: Per JUN. DISPOSITION: To home. CONDITION ON DISCHARGE: Stable. LEVEL OF CARE: Full code. DIET: Regular. ACTIVITY: As tolerated. CONSULTANTS: 1. Dr. Menchaca. 2. Dr. Baker. 3. Dr. Singh. PROCEDURE: Right total hip arthroplasty. COMPLICATIONS: None. INSTRUCTIONS: Instructions were given to the pat ient, compliance with medications and outpatient followup stressed wit h her. Followup care with Dr. Menchaca in 1 week. Level of care full code. COURSE OF HOSPITALIZATION: The patient was admit cyndy due to right hip fracture with nonunion. The patient had a long course of hospitalization. A a Cardiology consultation with Dr. Katz was obt ained. Cardiology clearance obtained. Condition was stable. The patient unde rwent successful SAMUEL. Postop course was uneventful. The patient received phys ical therapy. The patient had no rehab benefit by director of casework department. Discharge home with home health. PATIENT NAME: CYNDIE PENN 0771 Dictated By: Sharon Agudelo MD Date Dictated: 10/30/2022 06:42:44 Date Transcribed: 10/30/2022 23:12:11 KS/ROSHAN Receipt ID: [id number] Authenticated by Sharon Agudelo MD On 10/31/2022 0 7:40:11 AM Electronically Signed by Sharon Agudelo MD on at 0740 PATIENT NAME: CYNDIE PENN 0771 2022-10-26 09:04:00-00:00 [id number] [facility] [address] [place] [address] PATIENT NAME: CYNDIE PENN ADMIT DATE: 3 ACCOUNT NO: [id number] ROOM NO: P.[facility] AGE: 46 REPORT TYPE: PROGRESS NOTE SEX: F ADMITTING PHYSICIAN:Sharon Agudelo MD ATTENDING PHYSICIAN:Sharon Agudelo MD DATE: 10/25/2022 PAIN MANAGEMENT PROGRESS NOTE CONSULTING PHYSICIAN: Fatou Baker DO SPECIALTY: Pain management. Late entry for 10/25/2022. SUBJECTIVE: The patient is doing okay. She state s she did a lot with physical therapy yesterday. She was having a little bit m ore pain. She will be going home today. I discussed the case with Dr Diya Agudelo. I thought she might be going to rehabilitation facility. Using the Percocet. She has been on this at home also. She has been using pain medications for qu ite a bit of time. I checked the prescription monitoring report, but significant intensification of the pain since her surgery, but has been ambulating, did a lot with physical therapy yesterday. Not reporting any nausea or vomiting. No constipation. PHYSICAL EXAMINATION: VITAL SIGNS: Stable. GENERAL: Awake, alert, no acute distress. LUNGS: Normal respiratory rate, and effort. ABDOMEN: Soft, thin. EXTREMITIES: No edema, lower extremities. ASSESSMENT: Status post hip surgery. PLAN: Discharge planning with short course of ox ycodone for her. It is higher than what the dose she naren lly takes at home. She will follow up with her pain doctor. Dictated By: Fatou Baker DO Date Dictated: 10/26/2022 09:04:00 Date Transcribed: 10/26/2022 09:28:22 MARI/JC Receipt ID: [id number] Authenticated by Fatou Baker DO On 11:12:50 AM PATIENT NAME: CYNDIE PENN 0771 at 1112 PATIENT NAME: CYNDIE PENN 0771 2022-10-25 14:34:00-00:00 [facility] ([facility]) Med Order Sheet REPORT #: [id number] REPORT STATUS: Signed DATE: 10/25/22 TIME: 1434 PATIENT: CYNDIE PENN UNIT #: [id number] ROOM #: P.0702 BED: 1 : 76 AGE: 46 SEX: F ATTEND: Matthew Agudelo MD ADM AUTHOR: Sharon Agudelo MD ATTENTION *EDITS and/or ADDENDA must be made in Patient Ke eper for this note. * * Edits and ammendments created in [facility] are not visible * * in Patient Keeper or the legal medical record ([facility]). * Discharge Medication Reconciliation DISCHARGE MEDICATION LIST clonazePAM disintegrating tablet Dose: 2 MG PO BID Docusate Sodium Cap (Colace Cap) Dose: 100MG PO BID, Disp: 60 capsule, Refills: 0 Enoxaparin 40 mg/0.4 ml Inj (Lovenox 40 mg/0.4 m l Inj) Dose: 40MG SubQ Q24H, Disp: 14 x 0.4 mL syringe , Refills: 0 PROzac capsule (fluoxetine) Dose: 60MG PO DAILY Levothyroxine Tab (Synthroid Tab) Dose: 200MCG PO DAILY@0600, Disp: 30 tablet, Re fills: 0 Lisinopril Tab (Prinivil Tab) Dose: 20MG PO DAILY, Disp: 30 tablet, Refills: 0 Lyrica cap (pregabalin) Dose: 150 MG PO BID Polyethylene Glycol Powder (Miralax Powder) Dose: 1PKT PO DAILY, Disp: 1 x 10 packet, Refil ls: 0 STOPPED HOSPITAL MEDICATIONS Dc'd: Acetaminophen Tab (Tylenol Tab) 650MG PO Q 4H PRN mild pain /or feverDc'd: Acetaminophen Tab (Tylenol Tab) 650MG PO Q4H PRN temp greater than 100f/37.8cDc'd: ceFAZolin Inj (Ancef Inj) 1 GM 120 MLS/HR IV Q8H X 15 dosesin Sodium Chloride 0.9% (Nacl 0.9%) 10ML Dc'd: diphenhydrAMINE Cap (Benadryl Cap) 25MG PO Q6H PRN itchingDc'd: hydrALAZINE Inj (Apresoline Inj) 10MG IV Q2H PRN sbp> 180Dc'd: HYDROmorphone Inj (Dilaudid Inj) 1MG IV Q4H PRN discomfortDc'd : Meperidine Inj (Demerol Inj) 25MG IV PACU Q5MIN X 4 doses PRN pain scale 7-10Dc'd: Naloxone Inj (Narcan Inj) 0.2MG IV ASDIR PRN rr<8 or unrespon siveDc'd: Ondansetron Inj (Zofran Inj) 4MG IV Q6H PRN nausea and vomitingD c'd: oxyCODONE/APAP 5/325 Tab (Percocet 5/325 Tab) 2TAB PO Q4H PRN discomf ortDc'd: Pantoprazole DR Tab (Protonix Tab) 40MG PO DAILYDc'd: Promethazine I nj (Phenergan Inj) 12.5MG 101 MLS/HR IV Q6H PRN nausea/vomiting (use 2nd)in so dium chloride 0.9 % intravenous solution 50ML Dc'd: traMADol Tab (Ultram Tab) 50MG PO Q6H PRN pain scale 4-6Dc'd: Zolpidem Tab (Ambien Tab) 5MG PO BEDTIME PRN ins omnia Electronically Signed by Sharon Agudelo MD on 04/07 at 1434 ATTENTION *EDITS and/or ADDENDA must be made in Patient [facility] for this note. * * Edits and ammendments created in [employer] are not visible * * in Patient Keeper or the legal medical record ([facility]). * RPT #: [id number] END OF REPORT 2022-10-25 10:34:00-00:00 [facility] THIS REPORT HAS BEEN APPENDED [facility] ([facility]) Internal Med. Progress Note REPORT #: [id number] REPORT STATUS: Signed DATE: 10/25/22 TIME: 1034 PATIENT: CYNDIE PENN UNIT #: [id number] ROOM #: P.0702 BED: 1 : 76 AGE: 46 SEX: F ATTEND: Matthew Agudelo MD [facility] AUTHOR: Sharon Agudelo MD ATTENTION *EDITS and/or ADDENDA must be made in Patient [facility] for this note. * * Edits and ammendments created in [facility] are not visible * * in Patient Keeper or the legal medical record ([facility]). * -- ASSESSMENT AND PLAN -- GENERAL ASSESSMENT: 1. Right hip Fracture with nonunion Orthopedic surgery following Dr Menchaca S/P SAMUEL Pain management following PT/OT Fall precautions home once mohamud is out discussed with RN 2. Hypertension, continue lisinopril. Hold michelle eters in place. Hydralazine IV as needed for elevated BP Echocardiogram noted Cardiology consulted- Dr Katz 3. Chronic pain syndrome, pain management.- Dr Liyah biggs Currently patient on [place] morphine and Tylenol 4. Bipolar disorder, continue Prozac. Denies SI/ HI. Follow up Psych. 5. Hypothyroidism, continue levothyroxine. Monit or TSH. Endocrine consulted TSH 49 Increased Synthroid to 200 mcg po daily 6. DVT prophylaxis. Lovenox 40 mg subcu daily -- SUBJECTIVE -- CHIEF COMPLAINT: awake and alert post op pain no fever discussed with family no distress discussed with pain management -REVIEW OF SYSTEMS- GENERAL: Negative for fever. RESPIRATORY: Negative for dyspnea. CARDIOVASCULAR: Negative for chest pain. GASTROINTESTINAL: Negative for abdominal pain. MUSCULOSKELETAL: Positive for hip pain. SKIN: Negative for rashes. -- OBJECTIVE -- VITALS (10/24 10:34 - 10/25 10:34): Temperature C: 36.8 (36.7 - 37.2) Temperature source: Oral Pulse Rate 74 (67 - 87) Respiratory rate: 18 (16 - 20) BP: 117/75 (90/57 - 129/79) I/Os (10/24 07:00 - 10/25 07:00): Net 335 Intake 350 Output 15 -EXAM- GENERAL: Awake, alert, and oriented. HEAD: Normocephalic, atraumatic. NECK: No JVD, supple. LUNGS: Clear bilaterally with normal respiratory effort. HEART: Regular rate and rhythm, normal S1, S2. ABDOMEN: Soft, non-tender, non-distended, bowel sounds present. EXTREMITIES: No clubbing, no cyanosis, no edema. -- DATA -- MEDICATIONS ENOXAPARIN SODIUM 40 MG SUBQ Q24H ONDANSETRON HCL/PF 4 MG IV Q6H PRN ACETAMINOPHEN 650 MG PO Q4H PRN HYDROmorphone HCL 1 MG IV Q4H PRN ceFAZolin with/in SODIUM CHLORIDE 0.9% 1 GM IV Q 8H traMADol HCL 50 MG PO Q6H PRN oxyCODONE HCL/ACETAMINOPHEN 2 TAB PO Q4H PRN PREGABALIN 150 MG PO BID nalOXone HCL 0.2 MG IV ASDIR PRN FLUoxetine HCL 60 MG PO DAILY DOCUSATE SODIUM 100 MG PO BID PANTOPRAZOLE 40 MG PO DAILY PROMETHAZINE HCL with/in SODIUM CHLORIDE 50 mL B AG 12.5 MG IV Q6H PRN lisinopriL 20 MG PO DAILY ZOLPIDEM TARTRATE 5 MG PO BEDTIME PRN polyethylene glycoL 3350 1 PKT PO DAILY ACETAMINOPHEN 650 MG PO Q4H PRN MEPERIDINE HCL 25 MG IV PACU Q5MIN PRN diphenhydrAMINE HCL 25 MG PO Q6H PRN hydrALAZINE HCL 10 MG IV Q2H PRN clonazePAM 2 MG PO BID LEVOTHYROXINE SODIUM 200 MCG PO DAILY@0600 Signed in PatientKeeper by Sharon Agudelo MD on 0 10/25/22 at 10:34 Electronically Signed by Sharon Agudelo MD on 04/07 at 1034 SECTION 2 ADDENDUM 1: 10/25/22 1518 PTKEEPER S/P SAMUEL due to nonunion fracture pt is hard to ambulate with severe mobility limi tation, pt needs a standard wheelchair and a 3 in 1 bedside commode to be ab le to live independently with family. pt is able to propel a manual wheelchair, she mccall s good upper extremities rang of motion, WYATT CARLOS Electronically Signed by Sharon Agudelo MD on 04/07 at 1518 ATTENTION *EDITS and/or ADDENDA must be made in Patient Ke eper for this note. * * Edits and ammendments created in [facility] are not visible * * in Patient Keeper or the legal medical record (HPF). * [facility] #: [id number] END OF REPORT 2022-10-25 07:49:00-00:00 [id number] [facility] [address] [place] [address] PATIENT NAME: CYNDIE EPNN ADMIT DATE: 3 ACCOUNT NO: [id number] ROOM NO: [facility] AGE: 46 REPORT TYPE: PROGRESS NOTE SEX: F ADMITTING PHYSICIAN:Sharon Agudelo MD ATTENDING PHYSICIAN:Sharon Agudelo MD DATE: 10/24/2022 PAIN MANAGEMENT PROGRESS NOTE CONSULTING PHYSICIAN: Fatou Baker DO. SPECIALTY: Pain management. Late entry for 10/24/2022. SUBJECTIVE: Ms. Penn is doing much better toda y. She is walking with therapy, appears in good spirits, states that th e pain is definitely better. She is on oxycodone and IV Dilaudid. Not reporti ng any nausea or vomiting. No chest pain or shortness of breath. PHYSICAL EXAMINATION: VITAL SIGNS: Blood pressure 115/77, respirations 17, heart rate 79, and temperature 36.6. GENERAL: Awake, alert, in no acute distress. LUNGS: Normal respiratory rate, and effort. ABDOMEN: Soft. EXTREMITIES: No edema. ASSESSMENT: Right hip fracture nonunion, status post total hip arthroplasty, debility, chronic pain, and opiate dependence. PLAN: Continue current medications. We will be h appy to follow up. Continue physical therapy. Dictated By: Fatou Baker DO Date Dictated: 10/25/2022 07:49:01 Date Transcribed: 10/25/2022 08:42:40 MARI/MITALI Receipt ID: [id number] Authenticated by Fatou Baker DO On 11:12:49 AM at 1112 PATIENT NAME: CYNDIE PENN 0771 2022-10-24 11:16:00-00:00 [facility] ([facility]) Internal Med. Progress Note REPORT #: [id number] REPORT STATUS: Signed DATE: 10/24/22 TIME: 1116 PATIENT: CYNDIE PENN UNIT #: [id number] ROOM #: P.0702 BED: 1 : 76 AGE: 46 SEX: F ATTEND: Matthew Agudelo MD ADM AUTHOR: Sharon Agudelo MD ATTENTION *EDITS and/or ADDENDA must be made in Patient Ke eper for this note. * * Edits and ammendments created in [employer] are not visible * * in Patient Keeper or the legal medical record (HPF). * -- ASSESSMENT AND PLAN -- GENERAL ASSESSMENT: 1. Right hip Fracture with nonunion Orthopedic surgery following Dr Menchaca S/P SAMUEL Pain management following PT/OT Fall precautions home once mohamud is out discussed with RN 2. Hypertension, continue lisinopril. Hold michelle eters in place. Hydralazine IV as needed for elevated BP Echocardiogram noted Cardiology consulted- Dr Katz 3. Chronic pain syndrome, pain management.- Dr Liyah biggs Currently patient on [place] morphine and Tylenol 4. Bipolar disorder, continue Prozac. Denies SI/ HI. Follow up Psych. 5. Hypothyroidism, continue levothyroxine. Monit or TSH. Endocrine consulted TSH 49 Increased Synthroid to 200 mcg po daily 6. DVT prophylaxis. Lovenox 40 mg subcu daily -- SUBJECTIVE -- CHIEF COMPLAINT: awake and alert post op pain no fever discussed with family no distress -REVIEW OF SYSTEMS- GENERAL: Negative for fever. RESPIRATORY: Negative for dyspnea. CARDIOVASCULAR: Negative for chest pain. GASTROINTESTINAL: Negative for abdominal pain. MUSCULOSKELETAL: Positive for hip pain. SKIN: Negative for rashes. -- OBJECTIVE -- VITALS (10/23 11:16 - 10/24 11:16): Temperature C: 36.7 (36.5 - 36.7) Temperature source: Oral Pulse Rate 67 (67 - 88) Respiratory rate: 20 (16 - 20) BP: 90/57 (90/55 - 120/79) I/Os (10/23 07:00 - 10/24 07:00): Net 875 Intake 900 Output 25 -EXAM- GENERAL: Awake, alert, and oriented. HEAD: Normocephalic, atraumatic. NECK: No JVD, supple. LUNGS: Clear bilaterally with normal respiratory effort. HEART: Regular rate and rhythm, normal S1, S2. ABDOMEN: Soft, non-tender, non-distended, bowel sounds present. EXTREMITIES: No clubbing, no cyanosis, no edema. -- DATA -- MEDICATIONS PREGABALIN 150 MG PO BID PANTOPRAZOLE 40 MG PO DAILY PROMETHAZINE HCL with/in SODIUM CHLORIDE 50 mL B AG 12.5 MG IV Q6H PRN ZOLPIDEM TARTRATE 5 MG PO BEDTIME PRN polyethylene glycoL 3350 1 PKT PO DAILY ACETAMINOPHEN 650 MG PO Q4H PRN diphenhydrAMINE HCL 25 MG PO Q6H PRN hydrALAZINE HCL 10 MG IV Q2H PRN clonazePAM 2 MG PO BID LEVOTHYROXINE SODIUM 200 MCG PO DAILY@0600 ENOXAPARIN SODIUM 40 MG SUBQ Q24H ONDANSETRON HCL/PF 4 MG IV Q6H PRN ACETAMINOPHEN 650 MG PO Q4H PRN HYDROmorphone HCL 1 MG IV Q4H PRN ceFAZolin with/in SODIUM CHLORIDE 0.9% 1 GM IV Q 8H traMADol HCL 50 MG PO Q6H PRN oxyCODONE HCL/ACETAMINOPHEN 2 TAB PO Q4H PRN nalOXone HCL 0.2 MG IV ASDIR PRN FLUoxetine HCL 60 MG PO DAILY DOCUSATE SODIUM 100 MG PO BID lisinopriL 20 MG PO DAILY MEPERIDINE HCL 25 MG IV PACU Q5MIN PRN LABS HGB amp; HCT (10/24/22 04:51) HEMOGLOBIN 8.3 L HEMATOCRIT 26.4 L Signed in PatientKeeper by Sharon Agudelo MD on 0 10/24/22 at 11:17 Electronically Signed by Sharon Agudelo MD on 03/08 at 1117 ATTENTION *EDITS and/or ADDENDA must be made in Patient [facility] for this note. * * Edits and ammendments created in [employer] are not visible * * in Patient Keeper or the legal medical record ([facility]). * RPT #: [id number] END OF REPORT 2022-10-24 07:46:00-00:00 [facility] ([facility]) Endocrinology Progress Note REPORT #: [id number] REPORT STATUS: Signed DATE: 10/24/22 TIME: 745 PATIENT: CYNDIE PENN UNIT #: [id number] ROOM #: P.0702 BED: 1 : 76 AGE: 46 SEX: F ATTEND: Matthew Agudelo MD ADM AUTHOR: Tamara Zhu ATTENTION *EDITS and/or ADDENDA must be made in Patient [facility] for this note. * * Edits and ammendments created in [employer] are not visible * * in Patient Keeper or the legal medical record ([facility]). * -- ASSESSMENT AND PLAN -- GENERAL ASSESSMENT: 1. Hypothyroidism - TSH 46.89. - placed on levothyroxine 200 mcg 1 tab PO QD - Monitor HR, BP. HR 79-88. Within acceptable li mits. - Patient to follow up in 2-3 months with her en docrinologist to monitor TSH 2. Right hip pain - Continue pain management 3. Right hip fracture - Dr Menchaca following 4. Hypertension - continue lisinopril. Monitor BP 5. Hypoglycemia -No episodes COMMENT: HR WNL. we will sign off. Patient to follow up i n 2-3 months with her patient accounting representative to monitor TSH -- SUBJECTIVE -- PATIENT NARRATIVE: Events noted -REVIEW OF SYSTEMS- GENERAL: Negative for fever, malaise, fatigue. EYES: Negative for blurry vision. No diplopia. EARS/NOSE/THROAT: Negative for sore throat. No o talgia. No rhinorrhea. RESPIRATORY: Negative for dyspnea or wheeze. No cough. CARDIOVASCULAR: Negative for chest pain or palpi tations. No extremity swelling. GASTROINTESTINAL: Negative for abdominal pain or nausea. No emesis. No diarrhea. GENITOURINARY: Negative for dysuria, frequency, or urgency. No gross hematuria. MUSCULOSKELETAL: R hip pain SKIN: Negative for rashes. No pruritus. NEUROLOGICAL: Negative for headache. No vertigo. Denies paresthesias. PSYCHIATRIC: Negative for specific complaints. ENDOCRINE: Negative for cold intolerance, heat i ntolerance, polyphagia, polydipsia, polyuria, weight change , fatigue. HEMATALOGIC / LYMPHORETICULAR: Negative for exce ssive bleeding, unusual masses. ALLERGIC / IMMUNOLOGIC: Negative for heat/cold i ntolerance, polydipsia, or polyuria. -- OBJECTIVE -- VITALS (10/23 07:46 - 10/24 07:46): Temperature C: 36.6 (36.5 - 36.8) Temperature source: Oral Pulse Rate 86 (79 - 88) Respiratory rate: 20 (16 - 20) BP: 112/79 (100/55 - 120/83) I/Os (10/23 07:00 - 10/24 07:00): Net 900 Intake 900 -EXAM- GENERAL: Well developed, well nourished, in no a pparent distress. HEAD: Normocephalic, atraumatic. EYES: PERRL EARS: grossly normal hearing. NOSE: No deformity, no discharge, no inflammatio n, no lesions. MOUTH: Oropharynx without deformities or lesions , normal mucosa.. NECK: No masses, no thyromegaly, no abnormal cer vical nodes, trachea midline. CHEST: Grossly normal appearance. LUNGS: Clear bilaterally with normal respiratory effort. HEART: Regular rate and rhythm, normal S1, S2, n o murmurs, no rubs, no gallops, no clicks. ABDOMEN: Soft, non-tender, no organomegaly, no m asses noted. MUSCULOSKELETAL: No deformity, no scoliosis not ed of thoracic or lumbar spine, joint ROM grossly normal, normal gait an d station. EXTREMITIES: No clubbing, no cyanosis, no edema. NEUROLOGICAL: No focal deficits PULSES: Pulses normal in all extremities. GENITOURINARY: Normal external genitalia. SKIN: Intact without significant lesions, or baldemar hes. PSYCHIATRIC: Alert and oriented to time, person, place. Normal mood and affect, intact judgment and insight. -- DATA -- MEDICATIONS PREGABALIN 150 MG PO BID SODIUM CHLORIDE 0.9% 1000 ML IV Q12H PANTOPRAZOLE 40 MG PO DAILY PROMETHAZINE HCL with/in SODIUM CHLORIDE 50 mL B AG 12.5 MG IV Q6H PRN ZOLPIDEM TARTRATE 5 MG PO BEDTIME PRN polyethylene glycoL 3350 1 PKT PO DAILY ACETAMINOPHEN 650 MG PO Q4H PRN diphenhydrAMINE HCL 25 MG PO Q6H PRN hydrALAZINE HCL 10 MG IV Q2H PRN clonazePAM 2 MG PO BID LEVOTHYROXINE SODIUM 200 MCG PO DAILY@0600 ENOXAPARIN SODIUM 40 MG SUBQ Q24H ONDANSETRON HCL/PF 4 MG IV Q6H PRN ACETAMINOPHEN 650 MG PO Q4H PRN HYDROmorphone HCL 1 MG IV Q4H PRN ceFAZolin with/in SODIUM CHLORIDE 0.9% 1 GM IV Q 8H traMADol HCL 50 MG PO Q6H PRN oxyCODONE HCL/ACETAMINOPHEN 2 TAB PO Q4H PRN nalOXone HCL 0.2 MG IV ASDIR PRN FLUoxetine HCL 60 MG PO DAILY DOCUSATE SODIUM 100 MG PO BID lisinopriL 20 MG PO DAILY MEPERIDINE HCL 25 MG IV PACU Q5MIN PRN LABS HGB amp; HCT (10/24/22 04:51) HEMOGLOBIN 8.3 L HEMATOCRIT 26.4 L -- ATTESTATION -- TIME SPENT ON PATIENT CARE: - Direct 15 minutes - Counseling 5 minutes - Coordination of Care 15 minutes Signed in PatientKeeper by TAMARA ZHU on 10/24/22 at 07:47 Cosigned by LUDMILA CHOPRA MD on 11/08/22 at 1 9:44 at 1944 at 1944 ATTENTION *EDITS and/or ADDENDA must be made in Patient Ke eper for this note. * * Edits and ammendments created in [employer] are not visible * * in Patient Keeper or the legal medical record (HPF). * [facility] #: [id number] END OF REPORT 2022-10-23 14:36:00-00:00 [id number] [facility] [address] [place] [address] PATIENT NAME: CYNDIE PENN ADMIT DATE: 3 ACCOUNT NO: [id number] ROOM NO: P.0702 AGE: 46 REPORT TYPE: PROGRESS NOTE SEX: F ADMITTING PHYSICIAN:Sharon Agudelo MD ATTENDING PHYSICIAN:Sharon Agudelo MD DATE: 10/23/2022 PROGRESS NOTE SUBJECTIVE: Events noted. Discussed with staff. Doing about the same. Complains of postop pain. She is awake and respo nsive. She is sitting in a wheelchair today. No nausea, no vomiting. Drain is in place. OBJECTIVE: VITAL SIGNS: Blood pressure 132/60, heart rate o f , temperature 97.9 and respiratory rate of 17. HEENT: Head normocephalic. CHEST AND LUNGS: Bilateral breathing sounds. HEART: Normal S1, S2. ABDOMEN: Soft. EXTREMITIES: No edema. NEUROLOGIC: Awake and alert. ASSESSMENT AND PLAN: 1. Right hip fracture with nonunion, sta tus post total hip arthroplasty. Doing well. Dr. Menchaca, Orthopedic Surgery fo llowing the patient. Continue physical therapy. 2. Debility. PT, OT, fall precaution. 3. Deep venous thrombosis prophylaxis. The patie nt is on Lovenox 40 mg subcutaneous daily. 4. Acute post-procedural pain. Dr. Baker of [place] in Management following the patient. The patient on Dilaudid, [place] and Tyle nol as needed. 5. Discharge planning: Home once cleared by Orth opedic Surgery. The patient has a drain in place. Dictated By: Sharon Agudelo MD Date Dictated: 10/23/2022 14:36:36 Date Transcribed: 10/23/2022 15:54:37 [facility] [place] Receipt ID: [id number] Authenticated by Sharon Agudelo MD On 10/23/2022 0 4:49:33 PM PATIENT NAME: CYNDIE PENN 0771 Electronically Signed by Sharon Agudelo MD on 02/05 at 0449 PATIENT NAME: CYNDIE PENN 0771 2022-10-23 10:18:00-00:00 [id number] [place] [address] PATIENT NAME: CYNDIE PENN ADMIT DATE: 3 ACCOUNT NO: [id number] ROOM NO: P.0702 AGE: 46 REPORT TYPE: PROGRESS NOTE SEX: F ADMITTING PHYSICIAN:Sharon Agudelo MD ATTENDING PHYSICIAN:Sharon Agudeol MD DATE: PAIN MANAGEMENT PROGRESS NOTE CONSULTING PHYSICIAN: Fatou Baker DO SPECIALTY: Pain management. SUBJECTIVE: Ms. Penn is complaining of pain, l lauren on her left side, right side hip up. I saw Dr. Menchaca's note, does not want the hips to be adducted. She is complaining of severe pain. She i s going to work with physical therapy. She says the pain medication s have not been given on time. She got the Dilaudid at 02:57 and 09:18 in the mo rning. Also, has Percocet 10/325, which is what she was taking at home. PHYSICAL EXAMINATION: VITAL SIGNS: Blood pressure 115/83, respirations 18, heart rate 84, and temperature 36.8. GENERAL: Awake, alert, in some distress secondar y to pain. LUNGS: Normal respiratory rate, and effort. ABDOMEN: Soft. EXTREMITIES: No edema. ASSESSMENT: Status post hip arthroplasty. PLAN: To work with physical therapy. I just told the nurse to follow Dr. Menchaca's and to keep the hips abducted, and not adducted. I am going to add Toradol for 24 hours. Her creatinine is within n ormal limits. Continue IV Dilaudid 1 mg and Percocet. Dictated By: Fatou Baker DO Date Dictated: 10/23/2022 10:18:43 Date Transcribed: 10/23/2022 10:36:28 [facility] [place] Receipt ID: [id number] Authenticated by Fatou Baker DO On 11:12:49 AM PATIENT NAME: CYNDIE PENN 0771 at 1112 PATIENT NAME: CYNDIE PENN 0771 2022-10-23 07:57:00-00:00 [facility] ([facility]) Endocrinology Progress Note REPORT #: [id number] REPORT STATUS: Signed DATE: 10/23/22 TIME: 756 PATIENT: CYNDIE PENN UNIT #: [id number] [facility] : 76 AGE: 46 SEX: F ATTEND: Matthew Agudelo MD ADM AUTHOR: Tamara Zhu ATTENTION *EDITS and/or ADDENDA must be made in Patient Ke eper for this note. * * Edits and ammendments created in [employer] are not visible * * in Patient Keeper or the legal medical record (HPF). * -- ASSESSMENT AND PLAN -- GENERAL ASSESSMENT: 1. Hypothyroidism - TSH 46.89. - placed on levothyroxine 200 mcg 1 tab PO QD - Monitor HR, BP. HR 86-96. Within acceptable li mits. - Patient to follow up in 2-3 months with her en docrinologist to monitor TSH 2. Right hip pain - Continue pain management 3. Right hip fracture - Dr Menchaca following 4. Hypertension - continue lisinopril. Monitor BP 5. Hypoglycemia -No episodes -- SUBJECTIVE -- PATIENT NARRATIVE: Events noted -REVIEW OF SYSTEMS- GENERAL: Negative for fever, malaise, fatigue. EYES: Negative for blurry vision. No diplopia. EARS/NOSE/THROAT: Negative for sore throat. No o talgia. No rhinorrhea. RESPIRATORY: Negative for dyspnea or wheeze. No cough. CARDIOVASCULAR: Negative for chest pain or palpi tations. No extremity swelling. GASTROINTESTINAL: Negative for abdominal pain or nausea. No emesis. No diarrhea. GENITOURINARY: Negative for dysuria, frequency, or urgency. No gross hematuria. MUSCULOSKELETAL: R hip pain SKIN: Negative for rashes. No pruritus. NEUROLOGICAL: Negative for headache. No vertigo. Denies paresthesias. PSYCHIATRIC: Negative for specific complaints. ENDOCRINE: Negative for cold intolerance, heat i ntolerance, polyphagia, polydipsia, polyuria, weight change , fatigue. HEMATALOGIC / LYMPHORETICULAR: Negative for exce ssive bleeding, unusual masses. ALLERGIC / IMMUNOLOGIC: Negative for heat/cold i ntolerance, polydipsia, or polyuria. -- OBJECTIVE -- VITALS (10/22 07:57 - 10/23 07:57): Temperature C: 37.8 (36.3 - 38.4) Pulse Rate 92 (86 - 96) Respiratory rate: 18 (14 - 18) BP: 106/68 (91/56 - 110/73) I/Os (10/22 07:00 - 10/23 07:00): Net -225.00 Intake 1,910.00 Output 2,135 -EXAM- GENERAL: Well developed, well nourished, in no a pparent distress. HEAD: Normocephalic, atraumatic. EYES: PERRL EARS: grossly normal hearing. NOSE: No deformity, no discharge, no inflammatio n, no lesions. MOUTH: Oropharynx without deformities or lesions , normal mucosa.. NECK: No masses, no thyromegaly, no abnormal cer vical nodes, trachea midline. CHEST: Grossly normal appearance. LUNGS: Clear bilaterally with normal respiratory effort. HEART: Regular rate and rhythm, normal S1, S2, n o murmurs, no rubs, no gallops, no clicks. ABDOMEN: Soft, non-tender, no organomegaly, no m asses noted. MUSCULOSKELETAL: No deformity, no scoliosis note d of thoracic or lumbar spine, joint ROM grossly normal, normal gait an d station. EXTREMITIES: No clubbing, no cyanosis, no edema. NEUROLOGICAL: No focal deficits PULSES: Pulses normal in all extremities. GENITOURINARY: Normal external genitalia. SKIN: Intact without significant lesions, or baldemar hes. PSYCHIATRIC: Alert and oriented to time, person, place. Normal mood and affect, intact judgment and insight. -- DATA -- MEDICATIONS PREGABALIN 150 MG PO BID SODIUM CHLORIDE 0.9% 1000 ML IV Q12H PANTOPRAZOLE 40 MG PO DAILY PROMETHAZINE HCL with/in SODIUM CHLORIDE 50 mL B AG 12.5 MG IV Q6H PRN ZOLPIDEM TARTRATE 5 MG PO BEDTIME PRN polyethylene glycoL 3350 1 PKT PO DAILY ACETAMINOPHEN 650 MG PO Q4H PRN diphenhydrAMINE HCL 25 MG PO Q6H PRN hydrALAZINE HCL 10 MG IV Q2H PRN clonazePAM 2 MG PO BID LEVOTHYROXINE SODIUM 200 MCG PO DAILY@0600 ENOXAPARIN SODIUM 40 MG SUBQ Q24H ONDANSETRON HCL/PF 4 MG IV Q6H PRN ACETAMINOPHEN 650 MG PO Q4H PRN HYDROmorphone HCL 1 MG IV Q4H PRN ceFAZolin with/in SODIUM CHLORIDE 0.9% 1 GM IV Q 8H traMADol HCL 50 MG PO Q6H PRN oxyCODONE HCL/ACETAMINOPHEN 2 TAB PO Q4H PRN morphine SULFATE 4 MG IV Q4H PRN nalOXone HCL 0.2 MG IV ASDIR PRN FLUoxetine HCL 60 MG PO DAILY DOCUSATE SODIUM 100 MG PO BID lisinopriL 20 MG PO DAILY MEPERIDINE HCL 25 MG IV PACU Q5MIN PRN LABS HGB amp; HCT (10/23/22 05:55) HEMOGLOBIN 8.4 L HEMATOCRIT 26.1 L -- ATTESTATION -- TIME SPENT ON PATIENT CARE: - Direct 15 minutes - Counseling 5 minutes - Coordination of Care 15 minutes Signed in PatientKeeper by TAMARA ZHU on 10/23/22 at 07:57 Cosigned by LUDMILA CHOPRA MD on 11/08/22 at 1 9:43 at 1943 at 1943 ATTENTION *EDITS and/or ADDENDA must be made in Patient Ke eper for this note. * * Edits and ammendments created in [facility] are not visible * * in Patient Keeper or the legal medical record (HPF). * [facility] #: [id number] END OF REPORT 2022-10-22 12:09:00-00:00 [facility] ([facility]) Endocrinology Progress Note REPORT #: [id number] REPORT STATUS: Signed DATE: 10/22/22 TIME: 1209 PATIENT: CYNDIE PENN UNIT #: [id number] ROOM #: P.0702 BED: 1 : 76 AGE: 46 SEX: F ATTEND: Matthew Agudelo MD ADM AUTHOR: Tamara Zhu ATTENTION *EDITS and/or ADDENDA must be made in Patient Ke eper for this note. * * Edits and ammendments created in [employer] are not visible * * in Patient Keeper or the legal medical record ([facility]PF). * -- ASSESSMENT AND PLAN -- GENERAL ASSESSMENT: 1. Hypothyroidism - TSH 46.89. - placed on levothyroxine 200 mcg 1 tab PO QD - Monitor HR, BP. HR 86-96. Within acceptable li mits. - Patient to follow up in 2-3 months with her en docrinologist to monitor TSH 2. Right hip pain - Continue pain management 3. Right hip fracture - Dr Menchaca following 4. Hypertension - continue lisinopril. Monitor BP 5. Hypoglycemia -No episodes -- SUBJECTIVE -- PATIENT NARRATIVE: Events noted -REVIEW OF SYSTEMS- GENERAL: Negative for fever, malaise, fatigue. EYES: Negative for blurry vision. No diplopia. EARS/NOSE/THROAT: Negative for sore throat. No o talgia. No rhinorrhea. RESPIRATORY: Negative for dyspnea or wheeze. No cough. CARDIOVASCULAR: Negative for chest pain or palpi tations. No extremity swelling. GASTROINTESTINAL: Negative for abdominal pain or nausea. No emesis. No diarrhea. GENITOURINARY: Negative for dysuria, frequency, or urgency. No gross hematuria. MUSCULOSKELETAL: R hip pain SKIN: Negative for rashes. No pruritus. NEUROLOGICAL: Negative for headache. No vertigo. Denies paresthesias. PSYCHIATRIC: Negative for specific complaints. ENDOCRINE: Negative for cold intolerance, heat i ntolerance, polyphagia, polydipsia, polyuria, weight change , fatigue. HEMATALOGIC / LYMPHORETICULAR: Negative for exce ssive bleeding, unusual masses. ALLERGIC / IMMUNOLOGIC: Negative for heat/cold i ntolerance, polydipsia, or polyuria. -- OBJECTIVE -- VITALS (10/21 12:09 - 10/22 12:09): Temperature C: 36.3 (36.3 - 37.3) Temperature source: Oral Pulse Rate 91 (86 - 98) Respiratory rate: 14 (14 - 20) BP: 110/61 (93/61 - 113/77) I/Os (10/21 07:00 - 10/22 07:00): Net -760 Intake 300 Output 1,060 -EXAM- GENERAL: Well developed, well nourished, in no a pparent distress. HEAD: Normocephalic, atraumatic. EYES: PERRL EARS: grossly normal hearing. NOSE: No deformity, no discharge, no inflammatio n, no lesions. MOUTH: Oropharynx without deformities or lesions , normal mucosa.. NECK: No masses, no thyromegaly, no abnormal cer vical nodes, trachea midline. CHEST: Grossly normal appearance. LUNGS: Clear bilaterally with normal respirator y effort. HEART: Regular rate and rhythm, normal S1, S2, n o murmurs, no rubs, no gallops, no clicks. ABDOMEN: Soft, non-tender, no organomegaly, no m asses noted. MUSCULOSKELETAL: No deformity, no scoliosis note d of thoracic or lumbar spine, joint ROM grossly normal, normal gait a nd station. EXTREMITIES: No clubbing, no cyanosis, no edema. NEUROLOGICAL: No focal deficits PULSES: Pulses normal in all extremities. GENITOURINARY: Normal external genitalia. SKIN: Intact without significant lesions, or baldemar hes. PSYCHIATRIC: Alert and oriented to time, person, place. Normal mood and affect, intact judgment and insight. -- DATA -- MEDICATIONS PREGABALIN 150 MG PO BID PROMETHAZINE HCL with/in SODIUM CHLORIDE 50 mL B AG 12.5 MG IV Q6H PRN ZOLPIDEM TARTRATE 5 MG PO BEDTIME PRN polyethylene glycoL 3350 1 PKT PO DAILY ACETAMINOPHEN 650 MG PO Q4H PRN diphenhydrAMINE HCL 25 MG PO Q6H PRN hydrALAZINE HCL 10 MG IV Q2H PRN clonazePAM 2 MG PO BID LEVOTHYROXINE SODIUM 200 MCG PO DAILY@0600 ENOXAPARIN SODIUM 40 MG SUBQ Q24H ONDANSETRON HCL/PF 4 MG IV Q6H PRN ACETAMINOPHEN 650 MG PO Q4H PRN traMADol HCL 50 MG PO Q6H PRN morphine SULFATE 4 MG IV Q4H PRN nalOXone HCL 0.2 MG IV ASDIR PRN FLUoxetine HCL 60 MG PO DAILY DOCUSATE SODIUM 100 MG PO BID lisinopriL 20 MG PO DAILY MEPERIDINE HCL 25 MG IV PACU Q5MIN PRN SODIUM CHLORIDE 0.9% 1000 ML IV Q12H PANTOPRAZOLE 40 MG PO DAILY HYDROmorphone HCL 1 MG IV Q4H PRN ceFAZolin with/in SODIUM CHLORIDE 0.9% 1 GM IV Q 8H oxyCODONE HCL/ACETAMINOPHEN 2 TAB PO Q4H PRN LABS CBC W/AUTO DIFF (10/22/22 06:10) WHITE BLOOD CELL 8.2 RED BLOOD CELL 3.15 L HEMOGLOBIN 9.3D L D L HEMATOCRIT 28.4L L MEAN CELL VOLUME 90.2 MEAN CELL HGB 29.5 MEAN CELL HGB CONCENTRATION 32.7 L RED CELL DISTRIBUTION WIDTH 14.1 PLATELET COUNT 244 MEAN PLATELET VOLUME 10.0 NEUTROPHIL % 71.4 LYMPHOCYTE % 18.9 L MONOCYTE % 8.4 EOSINOPHIL % 0.6 BASOPHIL % 0.2 NEUTROPHIL # 5.83 LYMPHOCYTE # 1.55 MONOCYTE # 0.69 EOSINOPHIL # 0.05 BASOPHIL # 0.02 BASIC METABOLIC PANEL (10/22/22 06:10) SODIUM 138 POTASSIUM 4.2 CHLORIDE 105 CARBON DIOXIDE 27 GLUCOSE 96 BLOOD UREA NITROGEN 8L L GLOMERULAR FILTRATION RATE >=60 max estimate CREATININE 0.60 CALCIUM 7.5 L -- ATTESTATION -- TIME SPENT ON PATIENT CARE: - Direct 15 minutes - Counseling 5 minutes - Coordination of Care 15 minutes Signed in PatientKeeper by TAMARA ZHU on 10/22/22 at 12:10 Cosigned by LUDMILA CHOPRA MD on 11/08/22 at 1 9:44 at 1944 at 1944 ATTENTION *EDITS and/or ADDENDA must be made in Patient Ke eper for this note. * * Edits and ammendments created in [facility] are not visible * * in Patient Keeper or the legal medical record (HPF). * RPT #: [id number] END OF REPORT 2022-10-22 11:42:00-00:00 [facility] ([facility]) Internal Med. Progress Note REPORT #: [id number] REPORT STATUS: Signed DATE: 10/22/22 TIME: 1142 PATIENT: CYNDIE PENN UNIT #: [id number] ROOM #: P.0702 BED: 1 : 76 AGE: 46 SEX: F ATTEND: Matthew Agudelo MD ADM AUTHOR: Sharon Agudelo MD ATTENTION *EDITS and/or ADDENDA must be made in Patient Ke eper for this note. * * Edits and ammendments created in [employer] are not visible * * in Patient Keeper or the legal medical record (HPF). * -- ASSESSMENT AND PLAN -- GENERAL ASSESSMENT: 1. Right hip Fracture with nonunion Orthopedic surgery following Dr Menchaca S/P SAMUEL Pain management following 2. Hypertension, continue lisinopril. Hold michelle eters in place. Hydralazine IV as needed for elevated BP Echocardiogram noted Cardiology consulted- Dr Katz 3. Chronic pain syndrome, pain management.- Dr Liyah biggs Currently patient on [place] morphine and Tylenol 4. Bipolar disorder, continue Prozac. Denies SI/ HI. Follow up Psych. 5. Hypothyroidism, continue levothyroxine. Monit or TSH. Endocrine consulted TSH 49 Increased Synthroid to 200 mcg po daily 6. DVT prophylaxis. Lovenox 40 mg subcu daily -- SUBJECTIVE -- CHIEF COMPLAINT: awake and alert post op pain no fever discussed with family no distress -REVIEW OF SYSTEMS- GENERAL: Negative for fever. RESPIRATORY: Negative for dyspnea. CARDIOVASCULAR: Negative for chest pain. GASTROINTESTINAL: Negative for abdominal pain. MUSCULOSKELETAL: Positive for hip pain. SKIN: Negative for rashes. -- OBJECTIVE -- VITALS (10/21 11:42 - 10/22 11:42): Temperature C: 36.7 (36.4 - 37.3) Temperature source: Oral Pulse Rate 96 (86 - 98) Respiratory rate: 14 (14 - 20) BP: 100/65 (93/65 - 113/77) I/Os (10/21 07:00 - 10/22 07:00): Net -760 Intake 300 Output 1,060 -EXAM- GENERAL: Awake, alert, and oriented. HEAD: Normocephalic, atraumatic. NECK: No JVD, supple. LUNGS: Clear bilaterally with normal respiratory effort. HEART: Regular rate and rhythm, normal S1, S2. ABDOMEN: Soft, non-tender, non-distended, bowel sounds present. MUSCULOSKELETAL: Bilateral lower extremity weak ness. EXTREMITIES: No clubbing, no cyanosis, no edema. NEUROLOGICAL: No focal deficits, cranial nerves II-XII grossly intact. -- DATA -- MEDICATIONS PREGABALIN 150 MG PO BID PROMETHAZINE HCL with/in SODIUM CHLORIDE 50 mL B AG 12.5 MG IV Q6H PRN ZOLPIDEM TARTRATE 5 MG PO BEDTIME PRN polyethylene glycoL 3350 1 PKT PO DAILY ACETAMINOPHEN 650 MG PO Q4H PRN diphenhydrAMINE HCL 25 MG PO Q6H PRN hydrALAZINE HCL 10 MG IV Q2H PRN clonazePAM 2 MG PO BID LEVOTHYROXINE SODIUM 200 MCG PO DAILY@0600 ENOXAPARIN SODIUM 40 MG SUBQ Q24H ONDANSETRON HCL/PF 4 MG IV Q6H PRN ACETAMINOPHEN 650 MG PO Q4H PRN traMADol HCL 50 MG PO Q6H PRN morphine SULFATE 4 MG IV Q4H PRN nalOXone HCL 0.2 MG IV ASDIR PRN FLUoxetine HCL 60 MG PO DAILY DOCUSATE SODIUM 100 MG PO BID lisinopriL 20 MG PO DAILY MEPERIDINE HCL 25 MG IV PACU Q5MIN PRN SODIUM CHLORIDE 0.9% 1000 ML IV Q12H PANTOPRAZOLE 40 MG PO DAILY HYDROmorphone HCL 1 MG IV Q4H PRN ceFAZolin with/in SODIUM CHLORIDE 0.9% 1 GM IV Q 8H oxyCODONE HCL/ACETAMINOPHEN 2 TAB PO Q4H PRN LABS CBC W/AUTO DIFF (10/22/22 06:10) WHITE BLOOD CELL 8.2 RED BLOOD CELL 3.15 L HEMOGLOBIN 9.3D L D L HEMATOCRIT 28.4L L MEAN CELL VOLUME 90.2 MEAN CELL HGB 29.5 MEAN CELL HGB CONCENTRATION 32.7 L RED CELL DISTRIBUTION WIDTH 14.1 PLATELET COUNT 244 MEAN PLATELET VOLUME 10.0 NEUTROPHIL % 71.4 LYMPHOCYTE % 18.9 L MONOCYTE % 8.4 EOSINOPHIL % 0.6 BASOPHIL % 0.2 NEUTROPHIL # 5.83 LYMPHOCYTE # 1.55 MONOCYTE # 0.69 EOSINOPHIL # 0.05 BASOPHIL # 0.02 BASIC METABOLIC PANEL (10/22/22 06:10) SODIUM 138 POTASSIUM 4.2 CHLORIDE 105 CARBON DIOXIDE 27 GLUCOSE 96 BLOOD UREA NITROGEN 8L L GLOMERULAR FILTRATION RATE >=60 max estimate CREATININE 0.60 CALCIUM 7.5 L Signed in PatientKeeper by Sharon Agudelo MD on 0 10/22/22 at 11:44 Electronically Signed by Sharon Agudelo MD on 01/06 at 1144 ATTENTION *EDITS and/or ADDENDA must be made in Patient Ke ep for this note. * * Edits and ammendments created in [employer] are not visible * * in Patient Keeper or the legal medical record (HPF). * [facility] #: [id number] END OF REPORT 2022-10-21 21:42:00-00:00 [facility] ([facility]) Orthopedic Progress Note REPORT #: [id number] REPORT STATUS: Signed DATE: 10/21/22 TIME: 2141 PATIENT: CYNDIE PENN UNIT #: [id number] ROOM #: P.0702 BED: 1 : 76 AGE: 46 SEX: F ATTEND: Matthew Agudelo MD ADM AUTHOR: Balbir Menchaca MD ATTENTION *EDITS and/or ADDENDA must be made in Patient Ke ep for this note. * * Edits and ammendments created in [employer] are not visible * * in Patient Keeper or the legal medical record (HPF). * -- SUBJECTIVE -- CHIEF COMPLAINT: pt found adducting leg went over a gain the hip precautions quite wooried she will be noncompliant, PT to reinforce precaution s, xrays went over look very good, cx negative but pending, rtc 2-3 weeks aft er dc, told to call 06/11 with any questions and has done this 4 days in recent past -- OBJECTIVE -- VITALS (10/20 21:42 - 10/21 21:42): Temperature C: 36.8 (36.7 - 36.8) Temperature source: Oral Pulse Rate 86 (68 - 95) Respiratory rate: 18 (16 - 18) BP: 101/68 (101/68 - 156/96) -- DATA -- MEDICATIONS flumazeniL 0.2 MG IV PACU ASDIR PRN HYDROmorphone HCL 0.5 MG IV PACU Q10MIN PRN MEPERIDINE HCL 12.5 MG IV PACU ONCE PRN PREGABALIN 150 MG PO BID oxyCODONE HCL 5 MG PO PACU Q4H PRN LABETALOL HCL 10 MG IV PACU Q5MIN PRN nalOXone HCL 0.04 MG IV PACU Q2MIN PRN diphenhydrAMINE HCL 12.5 MG IV PACU ONCE PRN PROMETHAZINE HCL with/in SODIUM CHLORIDE 50 mL B AG 12.5 MG IV Q6H PRN ZOLPIDEM TARTRATE 5 MG PO BEDTIME PRN PREGABALIN 75 MG PO PACU polyethylene glycoL 3350 1 PKT PO DAILY CELECOXIB 200 MG PO PACU ACETAMINOPHEN 650 MG PO Q4H PRN CELECOXIB 200 MG PO PREOP diphenhydrAMINE HCL 25 MG PO Q6H PRN hydrALAZINE HCL 10 MG IV PACU Q10MIN PRN hydrALAZINE HCL 10 MG IV Q2H PRN clonazePAM 2 MG PO BID PREGABALIN 75 MG PO PREOP LEVOTHYROXINE SODIUM 200 MCG PO DAILY@0600 morphine SULFATE 2 MG IV PACU Q5MIN PRN ENOXAPARIN SODIUM 40 MG SUBQ Q24H ONDANSETRON HCL/PF 4 MG IV Q6H PRN ACETAMINOPHEN 650 MG PO Q4H PRN traMADol HCL 50 MG PO Q6H PRN morphine SULFATE 4 MG IV Q4H PRN nalOXone HCL 0.2 MG IV ASDIR PRN FLUoxetine HCL 60 MG PO DAILY DOCUSATE SODIUM 100 MG PO BID lisinopriL 20 MG PO DAILY ATROPINE SULFATE 0.5 MG IV PACU Q5MIN PRN EPINEPHrine 2.25% 0.5 ML NEB PACU ASDIR PRN SODIUM CHLORIDE 0.9% 1000 ML IV PACU IV FLUID PROMETHAZINE HCL with/in SODIUM CHLORIDE 50 mL B AG 6.25 MG IV PACU ONCE PRN MEPERIDINE HCL 25 MG IV PACU Q5MIN PRN ACETAMINOPHEN 1000 MG IV PACU SODIUM CHLORIDE 0.9% 1000 ML IV Q12H PANTOPRAZOLE 40 MG PO DAILY ceFAZolin with/in SODIUM CHLORIDE 0.9% 1 GM IV Q 8H HYDROmorphone HCL 0.5 MG IV Q4H PRN oxyCODONE HCL/ACETAMINOPHEN 2 TAB PO Q4H PRN Signed in PatientKeeper by Balbir Menchaca MD on 10/21/22 at 21:45 Electronically Signed by Balbir Menchaca MD on 0 10/21/22 at 2145 ATTENTION *EDITS and/or ADDENDA must be made in Patient Ke eper for this note. * * Edits and ammendments created in [facility] are not visible * * in Patient Keeper or the legal medical record ([facility]). * [facility] #: [id number] END OF REPORT 2022-10-21 21:39:00-00:00 [id number] [facility] [address] [place] [address] PATIENT NAME: CYNDIE PENN ADMIT DATE: 3 ACCOUNT NO: [id number] ROOM NO: P.0702 AGE: 46 REPORT TYPE: PROGRESS NOTE SEX: F ADMITTING PHYSICIAN:Sharon Agudelo MD ATTENDING PHYSICIAN:Sharon Agudelo MD DATE: 10/21/2022 CONSULTING PHYSICIAN: Fatou Baker DO SPECIALTY: Pain management. SUBJECTIVE: Ms. Penn is status post surgery. S he had right total hip arthroplasty. She is doing okay, complai yasmine of some pain, but hydrocodone was added by the surgical team. She has morphine 4 m g IV q. 4 hours. PHYSICAL EXAMINATION: VITAL SIGNS: Blood pressure 101/68, respirations 18, heart rate 86, temperature 36.8. GENERAL: Awake and alert, not sedated. LUNGS: Normal respiratory rate and effort. ABDOMEN: Soft. EXTREMITIES: Dressing noted at the hip. ASSESSMENT: Status post right total hip arthropl asty. PLAN: Continue current medications. Morphine for severe breakthrough pain. I am going to add Toradol for a few doses. Her cre atinine is within normal limits. GFR is within normal limits. Discontinue the hydrocodone. Continue Percocet. We will be happy to follow up. Dictated By: Fatou Baker DO Date Dictated: 10/21/2022 21:39:35 Date Transcribed: 10/21/2022 23:08:58 ELDON Receipt ID: [id number] Authenticated by Fatou Baekr DO On 11:12:48 AM at 1112 PATIENT NAME: CYNDIE PENN 0771 2022-10-21 16:31:00-00:00 [facility] ([facility]) Endocrinology Progress Note REPORT #: [id number] REPORT STATUS: Signed DATE: 10/21/22 TIME: 1631 PATIENT: CYNDIE PENN UNIT #: [id number] ROOM #: P.0702 BED: 1 : 76 AGE: 46 SEX: F ATTEND: Matthew Agudelo MD ADM AUTHOR: Tamara Zhu ATTENTION *EDITS and/or ADDENDA must be made in Patient Ke eper for this note. * * Edits and ammendments created in [employer] are not visible * * in Patient Keeper or the legal medical record (HPF). * -- ASSESSMENT AND PLAN -- GENERAL ASSESSMENT: 1. Hypothyroidism - TSH 46.89. - placed on levothyroxine 200 mcg 1 tab PO QD - Monitor HR, BP. Within acceptable limits. - Patient to follow up in 2-3 months with her en docrinologist to monitor TSH 2. Right hip pain - Continue pain management 3. Right hip fracture - Dr Menchaca following 4. Hypertension - continue lisinopril. Monitor BP 5. Hypoglucemia - 10/20 BS 72. NPO after midnight - 10/21 - surgery this am -- SUBJECTIVE -- PATIENT NARRATIVE: Events noted. NPO after Midnight last night for surgery this morning -REVIEW OF SYSTEMS- GENERAL: Negative for fever, malaise, fatigue. EYES: Negative for blurry vision. No diplopia. EARS/NOSE/THROAT: Negative for sore throat. No o talgia. No rhinorrhea. RESPIRATORY: Negative for dyspnea or wheeze. No cough. CARDIOVASCULAR: Negative for chest pain or palpi tations. No extremity swelling. GASTROINTESTINAL: Negative for abdominal pain or nausea. No emesis. No diarrhea. GENITOURINARY: Negative for dysuria, frequency, or urgency. No gross hematuria. MUSCULOSKELETAL: R hip pain SKIN: Negative for rashes. No pruritus. NEUROLOGICAL: Negative for headache. No vertigo. Denies paresthesias. PSYCHIATRIC: Negative for specific complaints. ENDOCRINE: Negative for cold intolerance, heat i ntolerance, polyphagia, polydipsia, polyuria, weight change , fatigue. HEMATALOGIC / LYMPHORETICULAR: Negative for exce ssive bleeding, unusual masses. ALLERGIC / IMMUNOLOGIC: Negative for heat/cold i ntolerance, polydipsia, or polyuria. -- OBJECTIVE -- VITALS (10/20 16:31 - 10/21 16:31): Temperature C: 36.7 (36.7 - 36.9) Temperature source: Oral Pulse Rate 95 (65 - 95) Respiratory rate: 16 (16 - 17) BP: 111/76 (111/75 - 156/96) -EXAM- GENERAL: Well developed, well nourished, in no a pparent distress. HEAD: Normocephalic, atraumatic. EYES: PERRL EARS: grossly normal hearing. NOSE: No deformity, no discharge, no inflammatio n, no lesions. MOUTH: Oropharynx without deformities or lesions , normal mucosa.. NECK: No masses, no thyromegaly, no abnormal ce rvical nodes, trachea midline. CHEST: Grossly normal appearance. LUNGS: Clear bilaterally with normal respiratory effort. HEART: Regular rate and rhythm, normal S1, S2, n o murmurs, no rubs, no gallops, no clicks. ABDOMEN: Soft, non-tender, no organomegaly, no masses noted. MUSCULOSKELETAL: No deformity, no scoliosis note d of thoracic or lumbar spine, joint ROM grossly normal, normal gait an d station. EXTREMITIES: No clubbing, no cyanosis, no edema. NEUROLOGICAL: No focal deficits PULSES: Pulses normal in all extremities. GENITOURINARY: Normal external genitalia. SKIN: Intact without significant lesions, or baldemar hes. PSYCHIATRIC: Alert and oriented to time, person, place. Normal mood and affect, intact judgment and insight. -- DATA -- MEDICATIONS flumazeniL 0.2 MG IV PACU ASDIR PRN HYDROmorphone HCL 0.5 MG IV PACU Q10MIN PRN MEPERIDINE HCL 12.5 MG IV PACU ONCE PRN PREGABALIN 150 MG PO BID oxyCODONE HCL 5 MG PO PACU Q4H PRN LABETALOL HCL 10 MG IV PACU Q5MIN PRN nalOXone HCL 0.04 MG IV PACU Q2MIN PRN diphenhydrAMINE HCL 12.5 MG IV PACU ONCE PRN PROMETHAZINE HCL with/in SODIUM CHLORIDE 50 mL B AG 12.5 MG IV Q6H PRN ZOLPIDEM TARTRATE 5 MG PO BEDTIME PRN PREGABALIN 75 MG PO PACU polyethylene glycoL 3350 1 PKT PO DAILY CELECOXIB 200 MG PO PACU ACETAMINOPHEN 650 MG PO Q4H PRN CELECOXIB 200 MG PO PREOP diphenhydrAMINE HCL 25 MG PO Q6H PRN hydrALAZINE HCL 10 MG IV PACU Q10MIN PRN hydrALAZINE HCL 10 MG IV Q2H PRN clonazePAM 2 MG PO BID PREGABALIN 75 MG PO PREOP LEVOTHYROXINE SODIUM 200 MCG PO DAILY@0600 morphine SULFATE 2 MG IV PACU Q5MIN PRN ENOXAPARIN SODIUM 40 MG SUBQ Q24H HYDROcodone BITARTRATE/APAP 2 TAB PO Q4H PRN ONDANSETRON HCL/PF 4 MG IV Q6H PRN ACETAMINOPHEN 650 MG PO Q4H PRN traMADol HCL 50 MG PO Q6H PRN morphine SULFATE 4 MG IV Q4H PRN nalOXone HCL 0.2 MG IV ASDIR PRN FLUoxetine HCL 60 MG PO DAILY DOCUSATE SODIUM 100 MG PO BID HYDROcodone BITARTRATE/APAP 2 TAB PO Q4H PRN lisinopriL 20 MG PO DAILY ATROPINE SULFATE 0.5 MG IV PACU Q5MIN PRN EPINEPHrine 2.25% 0.5 ML NEB PACU ASDIR PRN SODIUM CHLORIDE 0.9% 1000 ML IV PACU IV FLUID PROMETHAZINE HCL with/in SODIUM CHLORIDE 50 mL B AG 6.25 MG IV PACU ONCE PRN MEPERIDINE HCL 25 MG IV PACU Q5MIN PRN ACETAMINOPHEN 1000 MG IV PACU PANTOPRAZOLE 40 MG PO DAILY ceFAZolin with/in SODIUM CHLORIDE 0.9% 1 GM IV Q 8H HYDROmorphone HCL 0.5 MG IV Q4H PRN oxyCODONE HCL/ACETAMINOPHEN 2 TAB PO Q4H PRN -- ATTESTATION -- TIME SPENT ON PATIENT CARE: - Direct 15 minutes - Counseling 5 minutes - Coordination of Care 15 minutes Signed in PatientKeeper by TAMARA ZHU on 10/21/22 at 16:33 Cosigned by LUDMILA CHOPRA MD on 11/08/22 at 1 9:44 at 1944 at 1944 ATTENTION *EDITS and/or ADDENDA must be made in Patient Ke eper for this note. * * Edits and ammendments created in [employer] are not visible * * in Patient Keeper or the legal medical record (HPF). * [facility] #: [id number] END OF REPORT 2022-10-21 12:06:00-00:00 [id number] [facility] [address] [place] [address] PATIENT NAME: CYNDIE PENN ADMIT DATE: 3 ACCOUNT NO: [id number] ROOM NO: P.0702 AGE: 46 REPORT TYPE: OPERATIVE REPORT SEX: F ADMITTING PHYSICIAN:Sharon Agudelo MD ATTENDING PHYSICIAN:Sharon Agudelo MD OPERATION DATE: 10/21/2022 SURGEON: Balbir Menchaca MD TECHNICAL SERVICE ENGINEER: Roscoe Thakkar from surgical garment inspector. PREOPERATIVE DIAGNOSIS: The patient with a right femoral neck fracture that was some time ago. POSTOPERATIVE DIAGNOSIS: The patient with a righ t femoral neck fracture that was some time ago with the addition of sclerotic cap that was making it very hard to get into the canal of the femur, which a dded time to the case. PROCEDURES: Right total hip arthroplasty using t he Tate and Nephew system through an anterior approach, G7 OsseoTi 3-hole 50 mm cup with 2 screws, a 70 and a 30, an E1 liner neutra l, a high offset Taperloc 6 x 132, a -6, 36 mm neck. ANESTHESIA: General. ESTIMATED BLOOD LOSS: 500 mL. COMPLICATIONS: None. PROCEDURE IN DETAIL: As follows: The lexi yi's right hip was sterilely prepped and draped supine on the Pease table. A standard 10 cm incision was made. We went ahead and went down to the tensor. The tens or we took laterally, the rectus medially. We tied them off two ascending branches of the lateral circumflex with some 2-0 silk ties. We created m edial and lateral flap of the capsule with a #5 Ethibond and we did take fluid from the joint. There was no evidence of infection. We went ahead and made an other cut right above the lesser troch and that helped us removed the head, which only measured to a 42, which was quite small. We went ahead and cleared off the medial side of the trochanter of the femur to make sure samuel t was going to come up enough and then we went ahead and began reaming. We used the C-arm with a 26 modifier to check the abduction, anteversion angle for kristal robert as well as the length of the hip. We reamed up to a 49, put a 50 in, this gave us a good fit. We put 2 screws, a 70 and a 30, both gave an ex cellent bite. We went ahead and put an E1 liner in. We did 3 liters of Pulsavac throughout the case. We then turned our attention to the femur, was externally rotated at 90 degrees, dropping it to the floor and abducting it with medial [place] campbell and 2-prong behind the greater trochanter. The difficulty was a sclerotic piece that wa s in the top of the femur that made it very hard to find the canal. After drill ing and using a pigtail, we eventually got it down the canal. We verified that with C-a rm. We used a banana broach, PATIENT NAME: CYNDIE PENN 0771 lateralized it and then got to a 6, which gave u s a good endpoint with some 2 tines above the calcar area. The whole calcar area was enlarged I think from the injury and we went ahead and put the real 6, down with a -6 that we checked with the C-arm to make the route good. Everything loo ked good. We finished off the 3 liters. We then repaired the capsule with a #5 Ethibond that we had tagged that with. We put a large Hemovac in, then ran t he tensor with #1 Vicryl, 2-0 subcuticular and lor in the skin. Ea level of closure had copious amount of irrigation, strict hemost asis. The patient tolerated the procedure well, was extubated and taken to the recovery room in good condition. Dictated By: Balbir Menchaca MD Date Dictated: 10/21/2022 12:06:02 Date Transcribed: 10/21/2022 13:38:07 CARRIE/MITALI/CELIO Receipt ID: [id number] Authenticated by Balbir Menchaca MD On 023 07:24:53 PM Electronically Signed by Balbir Menchaca MD on 0 10/21/22 at 0724 PATIENT NAME: CYNDIE PENN 0771 2022-10-21 11:42:00-00:00 [facility] ([facility]) Internal Med. Progress Note REPORT #: [id number] REPORT STATUS: Signed DATE: 10/21/22 TIME: 1142 PATIENT: CYNDIE PENN UNIT #: [id number] ROOM #: P.0702 BED: 1 : 76 AGE: 46 SEX: F ATTEND: Matthew Agudelo MD ADM AUTHOR: Sharon Agudelo MD ATTENTION *EDITS and/or ADDENDA must be made in Patient Ke eper for this note. * * Edits and ammendments created in [employer] are not visible * * in Patient Keeper or the legal medical record (HPF). * -- ASSESSMENT AND PLAN -- GENERAL ASSESSMENT: 1. Right hip Fracture with nonunion Orthopedic surgery following Dr Menchaca Surgery today, NPO per ortho discussed with family Cardiology clearance obtained 2. Hypertension, continue lisinopril. Hold michelle eters in place. Hydralazine IV as needed for elevated BP Echocardiogram pending Cardiology consulted- Dr Katz 3. Chronic pain syndrome, pain management.- Dr Liyah biggs Currently patient on [place] morphine and Tylenol 4. Bipolar disorder, continue Prozac. Denies SI/ HI. Follow up Psych. 5. Hypothyroidism, continue levothyroxine. Monit or TSH. Endocrine consulted TSH 49 Increased synthroid to 200 mcg po daily Check free T3 and free T4 6. DVT prophylaxis. Lovenox subcu -- SUBJECTIVE -- CHIEF COMPLAINT: Events noted, n.p.o. for surgical intervention, awake and alert, discussed with family discussed with RN -REVIEW OF SYSTEMS- GENERAL: Negative for fever. RESPIRATORY: Negative for dyspnea. CARDIOVASCULAR: Negative for chest pain. GASTROINTESTINAL: Negative for abdominal pain. MUSCULOSKELETAL: Positive for hip pain. SKIN: Negative for rashes. -- OBJECTIVE -- VITALS (10/20 11:43 - 10/21 11:43): Temperature C: 36.7 (36.7 - 36.9) Temperature source: Oral Pulse Rate 89 (56 - 89) Respiratory rate: 16 (16 - 18) BP: 125/85 (120/75 - 156/96) -EXAM- GENERAL: Awake, alert, and oriented. HEAD: Normocephalic, atraumatic. NECK: No JVD, supple. LUNGS: Clear bilaterally with normal respiratory effort. HEART: Regular rate and rhythm, normal S1, S2. ABDOMEN: Soft, non-tender, non-distended, bowel sounds present. MUSCULOSKELETAL: Bilateral lower extremity weakn ess. EXTREMITIES: No clubbing, no cyanosis, no edema. NEUROLOGICAL: No focal deficits, cranial nerves II-XII grossly intact. -- DATA -- MEDICATIONS PREGABALIN 150 MG PO BID PANTOPRAZOLE 40 MG PO DAILY PROMETHAZINE HCL with/in SODIUM CHLORIDE 50 mL B AG 12.5 MG IV Q6H PRN ZOLPIDEM TARTRATE 5 MG PO BEDTIME PRN polyethylene glycoL 3350 1 PKT PO DAILY ACETAMINOPHEN 650 MG PO Q4H PRN diphenhydrAMINE HCL 25 MG PO Q6H PRN hydrALAZINE HCL 10 MG IV Q2H PRN clonazePAM 2 MG PO BID LEVOTHYROXINE SODIUM 200 MCG PO DAILY@0600 ENOXAPARIN SODIUM 40 MG SUBQ Q24H HYDROcodone BITARTRATE/APAP 2 TAB PO Q4H PRN ONDANSETRON HCL/PF 4 MG IV Q6H PRN ACETAMINOPHEN 650 MG PO Q4H PRN ceFAZolin with/in SODIUM CHLORIDE 0.9% 1 GM IV Q 8H traMADol HCL 50 MG PO Q6H PRN HYDROmorphone HCL 0.5 MG IV Q4H PRN oxyCODONE HCL/ACETAMINOPHEN 2 TAB PO Q4H PRN morphine SULFATE 4 MG IV Q4H PRN nalOXone HCL 0.2 MG IV ASDIR PRN FLUoxetine HCL 60 MG PO DAILY DOCUSATE SODIUM 100 MG PO BID HYDROcodone BITARTRATE/APAP 2 TAB PO Q4H PRN lisinopriL 20 MG PO DAILY Signed in PatientKeeper by Sharon Agudelo MD on 0 10/21/22 at 11:43 Electronically Signed by Sharon Agudelo MD on 12/06 at 1143 ATTENTION *EDITS and/or ADDENDA must be made in Patient Ke eper for this note. * * Edits and ammendments created in [facility] are not visible * * in Patient Keeper or the legal medical record (HPF). * [facility] #: [id number] END OF REPORT 2022-10-21 10:41:00-00:00 [id number] [facility] [address] [place] [address] PATIENT NAME: CYNDIE PENN ADMIT DATE: 3 ACCOUNT NO: [id number] ROOM NO: [facility] AGE: 46 REPORT TYPE: PROGRESS NOTE SEX: F ADMITTING PHYSICIAN:Sharon Agudelo MD ATTENDING PHYSICIAN:Sharon Agudelo MD DATE: 10/20/2022 PAIN MANAGEMENT PROGRESS NOTE CONSULTING PHYSICIAN: Fatou Baker DO SPECIALTY: Pain management. Late entry. SUBJECTIVE: Ms. Penn is still waiting for surg roxy. The surgery was delayed. She is a little upset about this. It is supposed to be later today, around 2-3 o'clock. Using the IV Dilaudid. Pain is okay, bu t very anxious about having her surgery and hopefully she can make her recov roxy and put this behind her. PHYSICAL EXAMINATION: VITAL SIGNS: Stable. GENERAL: Awake and alert, in no acute distress. LUNGS: Normal respiratory rate and effort. ABDOMEN: Soft. EXTREMITIES: No edema in the lower extremities. ASSESSMENT: Fall, hip fracture. PLAN: To go to the OR today with Dr. Menchaca. Co ntinue the IV Dilaudid. We will be happy to follow up. Dictated By: Fatou Baker DO Date Dictated: 10/21/2022 10:41:55 Date Transcribed: 10/21/2022 11:22:29 MARI/MITALI/CELIO Receipt ID: [id number] Authenticated by Fatou Baker DO On 11:12:48 AM at 1112 PATIENT NAME: CYNDIE PENN 0771 2022-10-20 17:06:00-00:00 [facility] ([facility]) Internal Med. Progress Note REPORT #: [id number] REPORT STATUS: Signed DATE: 10/20/22 TIME: 1706 PATIENT: CYNDIE PENN UNIT #: [id number] ROOM #: P.0702 BED: 1 : 76 AGE: 46 SEX: F ATTEND: Matthew Agudelo MD ADM AUTHOR: Sharon Agudelo MD ATTENTION *EDITS and/or ADDENDA must be made in Patient Ke eper for this note. * * Edits and ammendments created in [employer] are not visible * * in Patient Keeper or the legal medical record (HPF). * -- ASSESSMENT AND PLAN -- GENERAL ASSESSMENT: 1. Right hip Fracture with nonunion Orthopedic surgery following Dr Menchaca Surgery today, NPO Cardiology clearance obtained 2. Hypertension, continue lisinopril. Hold michelle eters in place. Hydralazine IV as needed for elevated BP Echocardiogram pending Cardiology consulted- Dr Katz 3. Chronic pain syndrome, pain management.- Dr Liyah biggs Currently patient on [place] morphine and Tylenol 4. Bipolar disorder, continue Prozac. Denies SI/ HI. Follow up Psych. 5. Hypothyroidism, continue levothyroxine. Monit or TSH. Endocrine consulted TSH 49 Increased synthroid to 200 mcg po daily Check free T3 and free T4 6. DVT prophylaxis. Lovenox subcu -- SUBJECTIVE -- CHIEF COMPLAINT: Events noted, n.p.o. for surgical intervention, awake and alert, -REVIEW OF SYSTEMS- GENERAL: Negative for fever. RESPIRATORY: Negative for dyspnea. CARDIOVASCULAR: Negative for chest pain. GASTROINTESTINAL: Negative for abdominal pain. MUSCULOSKELETAL: Positive for hip pain. SKIN: Negative for rashes. -- OBJECTIVE -- VITALS (10/19 17:07 - 10/20 17:07): Temperature C: 36.9 (36.4 - 36.9) Temperature source: Oral Pulse Rate 71 (56 - 77) Respiratory rate: 16 (16 - 18) BP: 136/82 (134/79 - 163/98) -EXAM- GENERAL: Awake, alert, and oriented. HEAD: Normocephalic, atraumatic. NECK: No JVD, supple. LUNGS: Clear bilaterally with normal respiratory effort. HEART: Regular rate and rhythm, normal S1, S2. ABDOMEN: Soft, non-tender, non-distended, bowel sounds present. MUSCULOSKELETAL: Bilateral lower extremity weakn ess. EXTREMITIES: No clubbing, no cyanosis, no edema. NEUROLOGICAL: No focal deficits, cranial nerves II-XII grossly intact. -- DATA -- MEDICATIONS PREGABALIN 150 MG PO BID PROMETHAZINE HCL with/in SODIUM CHLORIDE 50 mL B AG 12.5 MG IV Q6H PRN ZOLPIDEM TARTRATE 5 MG PO BEDTIME PRN polyethylene glycoL 3350 1 PKT PO DAILY ACETAMINOPHEN 650 MG PO Q4H PRN diphenhydrAMINE HCL 25 MG PO Q6H PRN hydrALAZINE HCL 10 MG IV Q2H PRN clonazePAM 2 MG PO BID LEVOTHYROXINE SODIUM 200 MCG PO DAILY@0600 ENOXAPARIN SODIUM 40 MG SUBQ Q24H ONDANSETRON HCL/PF 4 MG IV Q6H PRN oxyCODONE HCL/ACETAMINOPHEN 1 TAB PO Q4H PRN traMADol HCL 50 MG PO Q6H PRN HYDROmorphone HCL 0.5 MG IV Q4H PRN FLUoxetine HCL 60 MG PO DAILY lisinopriL 20 MG PO DAILY LABS BASIC METABOLIC PANEL (10/20/22 06:02) SODIUM 135L L POTASSIUM 4.3 CHLORIDE 101 CARBON DIOXIDE 29 GLUCOSE 71L L BLOOD UREA NITROGEN 9 GLOMERULAR FILTRATION RATE >=60 max estimate CREATININE 0.80 CALCIUM 8.8 CBC W/AUTO DIFF (10/20/22 06:02) WHITE BLOOD CELL 5.4 RED BLOOD CELL 4.33 HEMOGLOBIN 12.6 HEMATOCRIT 39.0 MEAN CELL VOLUME 90.1 MEAN CELL HGB 29.1 MEAN CELL HGB CONCENTRATION 32.3 L RED CELL DISTRIBUTION WIDTH 13.9 PLATELET COUNT 332 MEAN PLATELET VOLUME 10.3 NEUTROPHIL % 50.1 LYMPHOCYTE % 37.8 MONOCYTE % 8.0 EOSINOPHIL % 2.6 BASOPHIL % 1.3 NEUTROPHIL # 2.71 LYMPHOCYTE # 2.04 MONOCYTE # 0.43 EOSINOPHIL # 0.14 BASOPHIL # 0.07 Signed in PatientKeeper by Sharon Agudelo MD on 0 10/20/22 at 17:08 Electronically Signed by Sharon Agudelo MD on 11/05 at 1708 ATTENTION *EDITS and/or ADDENDA must be made in Patient Ke eper for this note. * * Edits and ammendments created in [facility] are not visible * * in Patient Keeper or the legal medical record (HPF). * RPT #: [id number] END OF REPORT 2022-10-20 07:51:00-00:00 [facility] ([facility]) Endocrinology Progress Note REPORT #: [id number] REPORT STATUS: Signed DATE: 10/20/22 TIME: 750 PATIENT: CYNDIE PENN UNIT #: [id number] ROOM #: P.0702 BED: 1 : 76 AGE: 46 SEX: F ATTEND: Matthew Agudelo MD ADM AUTHOR: Tamara Zhu APRN [employer]ODUCT ENGINEER ATTENTION *EDITS and/or ADDENDA must be made in Patient Ke eper for this note. * * Edits and ammendments created in [employer] are not visible * * in Patient Keeper or the legal medical record ([facility]). * -- ASSESSMENT AND PLAN -- GENERAL ASSESSMENT: 1. Hypothyroidism - TSH 46.89. - placed on levothyroxine 200 mcg 1 tab PO QD - Monitor HR, BP. Within acceptable limits. - Patient to follow up in 2-3 months with her en docrinologist to monitor TSH 2. Right hip pain - Continue pain management 3. Right hip fracture - Dr Menchaca following 4. Hypertension - continue lisinopril. Monitor BP 5. Hypoglucemia - 10/20 BS 72. NPO after midnight because of surge ry this am -- SUBJECTIVE -- PATIENT NARRATIVE: Events noted -REVIEW OF SYSTEMS- GENERAL: Negative for fever, malaise, fatigue. EYES: Negative for blurry vision. No diplopia. EARS/NOSE/THROAT: Negative for sore throat. No o talgia. No rhinorrhea. RESPIRATORY: Negative for dyspnea or wheeze. No cough. CARDIOVASCULAR: Negative for chest pain or palpi tations. No extremity swelling. GASTROINTESTINAL: Negative for abdominal pain or nausea. No emesis. No diarrhea. GENITOURINARY: Negative for dysuria, frequency, or urgency. No gross hematuria. MUSCULOSKELETAL: R hip pain SKIN: Negative for rashes. No pruritus. NEUROLOGICAL: Negative for headache. No vertigo. Denies paresthesias. PSYCHIATRIC: Negative for specific complaints. ENDOCRINE: Negative for cold intolerance, heat i ntolerance, polyphagia, polydipsia, polyuria, weight change , fatigue. HEMATALOGIC / LYMPHORETICULAR: Negative for exce ssive bleeding, unusual masses. ALLERGIC / IMMUNOLOGIC: Negative for heat/cold i ntolerance, polydipsia, or polyuria. -- OBJECTIVE -- VITALS (10/19 07:51 - 10/20 07:51): Temperature C: 36.7 (36.4 - 37.3) Temperature source: Oral Pulse Rate 77 (59 - 77) Respiratory rate: 18 (17 - 18) BP: 163/98 (141/80 - 163/98) -EXAM- GENERAL: Well developed, well nourished, in no a pparent distress. HEAD: Normocephalic, atraumatic. EYES: PERRL EARS: grossly normal hearing. NOSE: No deformity, no discharge, no inflammatio n, no lesions. MOUTH: Oropharynx without deformities or lesion s, normal mucosa.. NECK: No masses, no thyromegaly, no abnormal cer vical nodes, trachea midline. CHEST: Grossly normal appearance. LUNGS: Clear bilaterally with normal respiratory effort. HEART: Regular rate and rhythm, normal S1, S2, n o murmurs, no rubs, no gallops, no clicks. ABDOMEN: Soft, non-tender, no organomegaly, no m asses noted. MUSCULOSKELETAL: No deformity, no scoliosis note d of thoracic or lumbar spine, joint ROM grossly normal, normal gait an d station. EXTREMITIES: No clubbing, no cyanosis, no edema. NEUROLOGICAL: No focal deficits PULSES: Pulses normal in all extremities. GENITOURINARY: Normal external genitalia. SKIN: Intact without significant lesions, or baldemar hes. PSYCHIATRIC: Alert and oriented to time, person, place. Normal mood and affect, intact judgment and insight. -- DATA -- MEDICATIONS PREGABALIN 150 MG PO BID PROMETHAZINE HCL with/in SODIUM CHLORIDE 50 mL B AG 12.5 MG IV Q6H PRN ZOLPIDEM TARTRATE 5 MG PO BEDTIME PRN polyethylene glycoL 3350 1 PKT PO DAILY ACETAMINOPHEN 650 MG PO Q4H PRN diphenhydrAMINE HCL 25 MG PO Q6H PRN hydrALAZINE HCL 10 MG IV Q2H PRN clonazePAM 2 MG PO BID LEVOTHYROXINE SODIUM 200 MCG PO DAILY@0600 ENOXAPARIN SODIUM 40 MG SUBQ Q24H HYDROmorphone HCL 0.5 MG IV Q4H PRN ONDANSETRON HCL/PF 4 MG IV Q6H PRN oxyCODONE HCL/ACETAMINOPHEN 1 TAB PO Q4H PRN traMADol HCL 50 MG PO Q6H PRN FLUoxetine HCL 60 MG PO DAILY lisinopriL 20 MG PO DAILY LABS BASIC METABOLIC PANEL (10/20/22 06:02) SODIUM 135L L POTASSIUM 4.3 CHLORIDE 101 CARBON DIOXIDE 29 GLUCOSE 71L L BLOOD UREA NITROGEN 9 GLOMERULAR FILTRATION RATE >=60 max estimate CREATININE 0.80 CALCIUM 8.8 CBC W/AUTO DIFF (10/20/22 06:02) WHITE BLOOD CELL 5.4 RED BLOOD CELL 4.33 HEMOGLOBIN 12.6 HEMATOCRIT 39.0 MEAN CELL VOLUME 90.1 MEAN CELL HGB 29.1 MEAN CELL HGB CONCENTRATION 32.3 L RED CELL DISTRIBUTION WIDTH 13.9 PLATELET COUNT 332 MEAN PLATELET VOLUME 10.3 NEUTROPHIL % 50.1 LYMPHOCYTE % 37.8 MONOCYTE % 8.0 EOSINOPHIL % 2.6 BASOPHIL % 1.3 NEUTROPHIL # 2.71 LYMPHOCYTE # 2.04 MONOCYTE # 0.43 EOSINOPHIL # 0.14 BASOPHIL # 0.07 -- ATTESTATION -- TIME SPENT ON PATIENT CARE: - Direct 15 minutes - Counseling 5 minutes - Coordination of Care 15 minutes Signed in PatientKeeper by TAMARA ZHU on 10/20/22 at 07:52 Cosigned by LUDMILA CHOPRA MD on 11/08/22 at 1 9:43 at 1943 at 1943 ATTENTION *EDITS and/or ADDENDA must be made in Patient Ke eper for this note. * * Edits and ammendments created in [facility] are not visible * * in Patient Keeper or the legal medical record (HPF). * [facility] #: [id number] END OF REPORT 2022-10-19 16:27:00-00:00 [id number] [facility] [address] [place] [address] PATIENT NAME: CYNDIE PENN ADMIT DATE: ACCOUNT NO: [id number] ROOM NO: P.0702 AGE: 46 REPORT TYPE: PROGRESS NOTE SEX: F ADMITTING PHYSICIAN:Sharon Agudelo MD ATTENDING PHYSICIAN:Sharon Agudelo MD DATE: PAIN MANAGEMENT PROGRESS NOTE CONSULTING PHYSICIAN: Fatou Baker DO SPECIALTY: Pain management. CHIEF COMPLAINT: Hip pain. SUBJECTIVE: Surgery was delayed until tomorrow. She was a little upset about this. She states she waited a long time, but oth er than that, doing okay, sitting, eating her dinner, resting comf ortably. Alternating the oxycodone and IV Dilaudid, both are helpful with the pain. No other side effects reported. PHYSICAL EXAMINATION: VITAL SIGNS: Blood pressure 147/80, respirations 18, heart rate 70, temperature ____. GENERAL: Awake and alert, in no acute distress. LUNGS: Normal respiratory rate and effort. ABDOMEN: Soft. ASSESSMENT: Right hip fracture nonunion. PLAN: Surgery tomorrow. Surgery has been delayed . Continue oxycodone, which was switched from hydrocodone and IV Dilaudid. W e will be happy to follow up. Dictated By: Fatou Baker DO Date Dictated: 10/19/2022 16:27:04 Date Transcribed: 10/19/2022 16:59:33 MARI/MITALI/JAQUELIN Receipt ID: [id number] Authenticated by Fatou Baker DO On 11:12:47 AM at 1112 PATIENT NAME: CYNDIE PENN [id number] 2022-10-19 12:15:00-00:00 [facility] ([facility]) Internal Med. Progress Note REPORT #: [id number] REPORT STATUS: Signed DATE: 10/19/22 TIME: 1215 PATIENT: CYNDIE PENN UNIT #: [id number] ROOM #: [facility] BED: 1 : 76 AGE: 46 SEX: F ATTEND: Matthew Agudelo MD ADM AUTHOR: Sharon Agudelo MD ATTENTION *EDITS and/or ADDENDA must be made in Patient Ke eper for this note. * * Edits and ammendments created in [employer] are not visible * * in Patient Keeper or the legal medical record (HPF). * -- ASSESSMENT AND PLAN -- GENERAL ASSESSMENT: 1. Right hip Fracture with nonunion Orthopedic surgery following Dr Menchaca Cardiology consult for cardiac clearance Plan is for SAMUEL 2. Hypertension, continue lisinopril. Hold michelle eters in place. Hydralazine IV as needed for elevated BP Echocardiogram pending Cardiology consulted 3. Chronic pain syndrome, pain management.- Dr Liyah biggs Currently patient on [place] morphine and Tylenol 4. Bipolar disorder, continue Prozac. Denies SI/ HI. Follow up Psych. 5. Hypothyroidism, continue levothyroxine. Monit or TSH. Endocrine consulted TSH 49 Increased synthroid to 200 mcg po daily Check free T3 and free T4 6. DVT prophylaxis. Lovenox subcu -- SUBJECTIVE -- CHIEF COMPLAINT: Events noted, n.p.o. for surgical intervention, awake and alert, -REVIEW OF SYSTEMS- GENERAL: Negative for fever. RESPIRATORY: Negative for dyspnea. CARDIOVASCULAR: Negative for chest pain. GASTROINTESTINAL: Negative for abdominal pain. MUSCULOSKELETAL: Positive for hip pain. SKIN: Negative for rashes. -- OBJECTIVE -- VITALS (10/18 07:33 - 10/19 07:33): Temperature C: 36.7 (35.8 - 36.7) Temperature source: Oral Pulse Rate 70 (63 - 78) Respiratory rate: 18 (16 - 18) BP: 146/86 (109/73 - 147/89) -EXAM- GENERAL: Awake, alert, and oriented. HEAD: Normocephalic, atraumatic. NECK: No JVD, supple. LUNGS: Clear bilaterally with normal respiratory effort. HEART: Regular rate and rhythm, normal S1, S2. ABDOMEN: Soft, non-tender, non-distended, bowel sounds present. MUSCULOSKELETAL: Bilateral lower extremity weakn ess. EXTREMITIES: No clubbing, no cyanosis, no edema. NEUROLOGICAL: No focal deficits, cranial nerves II-XII grossly intact. -- DATA -- MEDICATIONS ENOXAPARIN SODIUM 40 MG SUBQ Q24H HYDROmorphone HCL 0.5 MG IV Q4H PRN ONDANSETRON HCL/PF 4 MG IV Q6H PRN oxyCODONE HCL/ACETAMINOPHEN 1 TAB PO Q4H PRN traMADol HCL 50 MG PO Q6H PRN PREGABALIN 150 MG PO BID FLUoxetine HCL 60 MG PO DAILY PROMETHAZINE HCL with/in SODIUM CHLORIDE 50 mL B AG 12.5 MG IV Q6H PRN lisinopriL 20 MG PO DAILY ZOLPIDEM TARTRATE 5 MG PO BEDTIME PRN polyethylene glycoL 3350 1 PKT PO DAILY ACETAMINOPHEN 650 MG PO Q4H PRN diphenhydrAMINE HCL 25 MG PO Q6H PRN hydrALAZINE HCL 10 MG IV Q2H PRN clonazePAM 2 MG PO BID LEVOTHYROXINE SODIUM 200 MCG PO DAILY@0600 LABS CBC W/AUTO DIFF (10/19/22 05:55) WHITE BLOOD CELL 6.6 RED BLOOD CELL 4.20 HEMOGLOBIN 12.0 HEMATOCRIT 37.0 MEAN CELL VOLUME 88.1 MEAN CELL HGB 28.6 MEAN CELL HGB CONCENTRATION 32.4 L RED CELL DISTRIBUTION WIDTH 13.8 PLATELET COUNT 305 MEAN PLATELET VOLUME 10.2 NEUTROPHIL % 54.6 LYMPHOCYTE % 33.4 MONOCYTE % 8.8 EOSINOPHIL % 2.0 BASOPHIL % 0.9 NEUTROPHIL # 3.62 LYMPHOCYTE # 2.21 MONOCYTE # 0.58 EOSINOPHIL # 0.13 BASOPHIL # 0.06 Signed in PatientKeeper by Sharon Agudelo MD on 0 10/19/22 at 12:19 Electronically Signed by Sharon Agudelo MD on 10/06 at 1219 ATTENTION *EDITS and/or ADDENDA must be made in Patient Ke eper for this note. * * Edits and ammendments created in [facility] are not visible * * in Patient Keeper or the legal medical record (HPF). * [facility] #: [id number] END OF REPORT 2022-10-19 08:21:00-00:00 [id number] [place] [address] PATIENT NAME: CYNDIE PENN ADMIT DATE: 3 ACCOUNT NO: [id number] ROOM NO: P.02 AGE: 46 REPORT TYPE: eECHOCARDIOGRAM REPORT SEX: F ADMITTING PHYSICIAN: Sharon Agudelo MD ATTENDING PHYSICIAN: Sharon Agudelo MD *[facility]* [address] [place] [address] Transthoracic Echocardiogram Patient: Cyndie Penn Study Date: 10/18/2022 BP: 147 / 75 Location: [place] [facility] URN: [id number] : 1975 Age: 46 Height: 64 in / 162.6 cm Gender: F Weight: 15 1.7 lb / 68.9 kg BMI/BSA: 26.1 kg/m 2 / 1.74 m 2 *Ordering Physician: * Sharon Agudelo *Interpreting Physician: * João Katz M.D. *Plant Physiologist: * Fartun Eaton Indications: Congestive Heart Failure. Study data: Transthoracic echocardiogram. Proced ure: Transthoracic echocardiography was performed. Im ages were obtained using a [employer] E95 cardiac ultrasound machine. M-mode, complete 2D, complete spectral Doppler, and color Doppler . Location: Bedside. Patient status: Inpatient. Patient room number: 702. Study status: Routine. Findings Left ventricle: The cavity size is normal. Wall thickness is normal. Systolic function is normal. The estimat ed ejection fraction is 55-60%. Wall motion is normal; there are no regional wall motion abnormalities. Left ventricular sotomayor tolic function parameters are normal. Right ventricle: The cavity size is normal. Syst olic function is PATIENT NAME: CYNDIE PENN 0771 normal. Left atrium: The atrium is normal in size. Right atrium: The atrium is normal in size. Aorta: Aortic root: The aortic root is normal in size. Aortic valve: The valve is structurally normal. The valve is trileaflet. There is no evidence of stenosis. Th ere is no regurgitation. Mitral valve: The valve is structurally normal. There is no evidence of stenosis. There is no regurgitation. Tricuspid valve: The valve is structurally naren l. There is no regurgitation. Pulmonic valve: The valve is structurally normal . There is no regurgitation. Pericardium: There is no pericardial effusion. Pulmonary arteries: The main pulmonary artery is normal-sized. Systemic veins: Inferior vena cava: The vessel is normal in size . Measurements Left ventricle Value Ref JESSEE, LAX 4.3 cm 3.8 - 5.2 ESD, LAX 2.9 cm 2.2 - 3.5 ESD/bsa, LAX 1.6 cm/m 2 1.3 - 2.1 FS, LAX 33 % 27 - 45 ESD 2.9 cm 2.2 - 3.5 ESD/bsa 1.6 cm/m 2 1.3 - 2.1 FS 33 % 27 - 45 PW, ED 1.1 cm 0.6 - 0.9 PW, ES 1.5 cm IVS/PW, ED 0.83 EF 61 % 54 - 74 EF, SMM Teich. 61 % >=55 E', lat yue, TDI 10.4 cm/sec >=10.0 E/e', lat yue, 10 TDI E', med yue, TDI 10.3 cm/sec >=7.0 E/e', med yue, 10 TDI E', avg, TDI 10.3 cm/sec E/e', avg, TDI 10 <=14 LVOT Value Ref Diam, S 1.96 cm Area 3.0 cm 2 Peak julissa, S 1.38 m/sec Mean julissa, S 0.91 m/sec VTI, S 33.6 cm Peak grad, S 8 mm Hg Mean grad, S 3 mm Hg SV 95 ml SV/bsa 55 ml/m 2 PATIENT NAME: CYNDIE PENN 0771 Ventricular septum Value Ref IVS, ED 0.9 cm 0.6 - 0.9 IVS, ES 1.1 cm Right ventricle Value Ref JESSEE, LAX 2.8 cm JESSEE 2.8 cm RVOT Value Ref Peak v, S 0.92 m/sec Peak grad, S 3 mm Hg Left atrium Value Ref LA ID 3.2 cm AP dim, ES 3.17 cm 2.70 - 3.80 AP dim ES, LAX 3.2 cm 2.7 - 3.8 SI dim ES, LAX 3.2 cm Vol, ES, 2-p 33 ml Vol/bsa, ES, 2-p 19 ml/m 2 16 - 34 LA/Ao root ratio 1.09 AP dim, ES MM 3.2 cm 2.7 - 3.8 LA/Ao root 0.95 ratio, MM Aortic valve Value Ref Peak v, S 1.31 m/sec Mean v, S 0.79 m/sec VTI, S 26.9 cm Mean grad, S 3.1 mm Hg Peak grad, S 6.9 mm Hg LVOT/AV, VTI 1.25 ratio ADRIANA, VTI 2.85 cm 2 LVOT/AV, Vpeak 1.05 ratio ADRIANA, Vmax 2.37 cm 2 Mitral valve Value Ref Peak E 0.1 m/sec Peak A 0.83 m/sec Mean v, D 0.65 m/sec VTI leaflet 28.1 cm coapt Decel time 214 ms PHT 81 ms Mean grad, D 2.0 mm Hg Peak grad, D 5.0 mm Hg Peak E/A ratio 1.19 MVA, PHT 2.7 cm 2 MR peak v 1.94 m/sec Tricuspid valve Value Ref PATIENT NAME: CYNDIE PENN 0771 TR peak v 2.31 m/sec <=2.8 Peak RV-RA grad, 21 mm Hg S Aortic root Value Ref Root diam 2.9 cm <3.9 Root diam, ED MM 3.33 cm Ascending aorta Value Ref AAo AP diam, S 2.7 cm AAo AP diam/bsa, 1.6 cm/m 2 S Conclusions Summary: Left ventricle: The cavity size is norm al. Wall thickness is normal. Systolic function is normal . The estimated ejection fraction is 55-60%. Wall motion is norm al; there are no regional wall motion abnormalities. Left ventric ular diastolic function parameters are normal. Prepared and kami ctronically signed by João Katz M.D. 10/19/2022 08:21 Electronically Signed by MD humaira Curtis 10/19/22 at 0821 PATIENT NAME: CYNDIE PENN 0771 2022-10-19 07:20:00-00:00 [facility] ([facility]) Endocrinology Progress Note REPORT #: [id number] REPORT STATUS: Signed DATE: 10/19/22 TIME: 07 PATIENT: CYNDIE PENN UNIT #: [id number] ROOM #: [facility] BED: 1 : 76 AGE: 46 SEX: F ATTEND: Matthew Agudelo MD ADM AUTHOR: Tamara Zhu ATTENTION *EDITS and/or ADDENDA must be made in Patient Ke eper for this note. * * Edits and ammendments created in [employer] are not visible * * in Patient Keeper or the legal medical record (HPF). * -- ASSESSMENT AND PLAN -- GENERAL ASSESSMENT: 1. Hypothyroidism - TSH 46.89. - placed on levothyroxine 200 mcg 1 tab PO QD - Monitor HR, BP. Within acceptable limits. - Patient to follow up in 2-3 months with her en docrinologist to monitor TSH 2. Right hip pain - Continue pain management 3. Right hip fracture - Dr Menchaca following 4. Hypertension - continue lisinopril. Monitor BP -- SUBJECTIVE -- PATIENT NARRATIVE: Events noted -REVIEW OF SYSTEMS- GENERAL: Negative for fever, malaise, fatigue. EYES: Negative for blurry vision. No diplopia. EARS/NOSE/THROAT: Negative for sore throat. No o talgia. No rhinorrhea. RESPIRATORY: Negative for dyspnea or wheeze. No cough. CARDIOVASCULAR: Negative for chest pain or palpi tations. No extremity swelling. GASTROINTESTINAL: Negative for abdominal pain or nausea. No emesis. No diarrhea. GENITOURINARY: Negative for dysuria, frequency, or urgency. No gross hematuria. MUSCULOSKELETAL: R hip pain SKIN: Negative for rashes. No pruritus. NEUROLOGICAL: Negative for headache. No vertigo. Denies paresthesias. PSYCHIATRIC: Negative for specific complaints. ENDOCRINE: Negative for cold intolerance, heat i ntolerance, polyphagia, polydipsia, polyuria, weight change , fatigue. HEMATALOGIC / LYMPHORETICULAR: Negative for exce ssive bleeding, unusual masses. ALLERGIC / IMMUNOLOGIC: Negative for heat/cold i ntolerance, polydipsia, or polyuria. -- OBJECTIVE -- VITALS (10/18 07:20 - 10/19 07:20): Temperature C: 35.8 (35.8 - 36.7) Temperature source: Oral Pulse Rate 68 (63 - 80) Respiratory rate: 17 (16 - 18) BP: 137/89 (109/73 - 147/94) -EXAM- GENERAL: Well developed, well nourished, in no a pparent distress. HEAD: Normocephalic, atraumatic. EYES: PERRL EARS: grossly normal hearing. NOSE: No deformity, no discharge, no inflammatio n, no lesions. MOUTH: Oropharynx without deformities or lesions , normal mucosa.. NECK: No masses, no thyromegaly, no abnormal cer vical nodes, trachea midline. CHEST: Grossly normal appearance. LUNGS: Clear bilaterally with normal respiratory effort. HEART: Regular rate and rhythm, normal S1, S2, n o murmurs, no rubs, no gallops, no clicks. ABDOMEN: Soft, non-tender, no organomegaly, no m asses noted. MUSCULOSKELETAL: No deformity, no scoliosis note d of thoracic or lumbar spine, joint ROM grossly normal, normal gait an d station. EXTREMITIES: No clubbing, no cyanosis, no edema. NEUROLOGICAL: No focal deficits PULSES: Pulses normal in all extremities. GENITOURINARY: Normal external genitalia. SKIN: Intact without significant lesions, or baldemar hes. PSYCHIATRIC: Alert and oriented to time, person, place. Normal mood and affect, intact judgment and insight. -- DATA -- MEDICATIONS ENOXAPARIN SODIUM 40 MG SUBQ Q24H HYDROmorphone HCL 0.5 MG IV Q4H PRN ONDANSETRON HCL/PF 4 MG IV Q6H PRN oxyCODONE HCL/ACETAMINOPHEN 1 TAB PO Q4H PRN traMADol HCL 50 MG PO Q6H PRN PREGABALIN 150 MG PO BID FLUoxetine HCL 60 MG PO DAILY PROMETHAZINE HCL with/in SODIUM CHLORIDE 50 mL B AG 12.5 MG IV Q6H PRN lisinopriL 20 MG PO DAILY ZOLPIDEM TARTRATE 5 MG PO BEDTIME PRN polyethylene glycoL 3350 1 PKT PO DAILY ACETAMINOPHEN 650 MG PO Q4H PRN diphenhydrAMINE HCL 25 MG PO Q6H PRN hydrALAZINE HCL 10 MG IV Q2H PRN clonazePAM 2 MG PO BID LEVOTHYROXINE SODIUM 200 MCG PO DAILY@0600 LABS CBC W/AUTO DIFF (10/19/22 05:55) WHITE BLOOD CELL 6.6 RED BLOOD CELL 4.20 HEMOGLOBIN 12.0 HEMATOCRIT 37.0 MEAN CELL VOLUME 88.1 MEAN CELL HGB 28.6 MEAN CELL HGB CONCENTRATION 32.4 L RED CELL DISTRIBUTION WIDTH 13.8 PLATELET COUNT 305 MEAN PLATELET VOLUME 10.2 NEUTROPHIL % 54.6 LYMPHOCYTE % 33.4 MONOCYTE % 8.8 EOSINOPHIL % 2.0 BASOPHIL % 0.9 NEUTROPHIL # 3.62 LYMPHOCYTE # 2.21 MONOCYTE # 0.58 EOSINOPHIL # 0.13 BASOPHIL # 0.06 -- ATTESTATION -- TIME SPENT ON PATIENT CARE: - Direct 15 minutes - Counseling 5 minutes - Coordination of Care 15 minutes Signed in PatientKeeper by TAMARA ZHU on 10/19/22 at 07:24 Cosigned by LUDMILA CHOPRA MD on 11/08/22 at 1 9:43 at 1943 at 1943 ATTENTION *EDITS and/or ADDENDA must be made in Patient Ke eper for this note. * * Edits and ammendments created in [employer] are not visible * * in Patient Keeper or the legal medical record (HPF). * [facility] #: [id number] END OF REPORT 2022-10-18 13:15:00-00:00 [id number] [facility] [address] [place] [address] [place] [address] PATIENT NAME: CYNDIE PENN ADMIT DATE: 3 ACCOUNT NO: [id number] ROOM NO: [facility] AGE: 46 REPORT TYPE: CONSULTATION SEX: F ADMITTING PHYSICIAN:Sharon Agudelo MD ATTENDING PHYSICIAN:Sharon Agudelo MD CONSULTATION DATE: PAIN MANAGEMENT CONSULTATION CONSULTING PHYSICIAN: Fatou Baker DO SPECIALTY: Pain management. CHIEF COMPLAINT: Right lower extremity pain. HISTORY OF PRESENT ILLNESS: A 46-year-ol d with history of right-sided hip pain and fracture. She states she fell. She states sh e could never find a surgeon that can operate that was within her network. 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 Seen by Dr. Varghese son. The plan is to go to the OR tomorrow. She states that she has been on Per cocet at home, which I will check the prescription monitoring report . She sees a pain doctor. Here, before I had a chance to see her, I got numerous phone calls that the pain is not controlled. I increase the morphine to 2-4 mg. S he says she gets fentanyl at [facility], now is better. She fell out of the bathtub, which significantly exacerbated her chronic pain, pain in the hip, going into the groin area on the right side. Currently using a wheelchair. She says that the morphine helps a little bit when it was increased to 4 mg, but not lasting long. The hydrocodone is not as e ffective as the oxycodone, which she normally takes at home. Pain rated to be severe. She is somewha t tearful. PAST MEDICAL HISTORY: Chronic hip fracture resul ting in chronic pain, hypothyroidism, hypertension, ADHD, bipolar diso rder. PAST SURGICAL HISTORY: Hysterectomy, laparoscopi c cholecystectomy. SOCIAL HISTORY: Positive for recent tobacco use, 3 cigarettes a day, but has stopped. Negative for alcohol or illicit drugs. ALLERGIES: NONE. MEDICATIONS: MAR. REVIEW OF SYSTEMS: Positive for hip pain. Positi ve for groin pain. Positive for having to use a wheelchair. No chest pain or shortness of breath. No nausea, no vomiting. No hearing changes, no visu al changes. PHYSICAL EXAMINATION: VITAL SIGNS: Blood pressure 109/73, heart rate 78, respirations 17, temperature PATIENT NAME: CYNDIE PENN [id number] 36.7. GENERAL: Awake and alert, in no acute distress. LUNGS: Normal respiratory rate and effort. ABDOMEN: Soft. EXTREMITIES: No edema in the lower extremities. Using wheelchair. ASSESSMENT: Hip fracture. PLAN: I am going to give her one dose of Toradol now, switch the morphine to Dilaudid, switch the [place] t o Percocet. Go to the OR tomorrow. We will be happy to follow up and manage her postoperative pain. Dictated By: Fatou Baker DO Date Dictated: 10/18/2022 13:15:37 Date Transcribed: 10/18/2022 15:26:14 MARI/MARKOS Receipt ID: [id number] Authenticated by Fatou Baker DO On 11:12:47 AM at 1112 PATIENT NAME: CYNDIE PENN 0771 2022-10-18 12:07:00-00:00 [facility] ([facility]) Internal Med. Progress Note REPORT #: [id number] REPORT STATUS: Signed DATE: 10/18/22 TIME: 1207 PATIENT: CYNDIE PENN UNIT #: [id number] ROOM #: P.0702 BED: 1 : 76 AGE: 46 SEX: F ATTEND: Skye Agudelo MD ADM AUTHOR: Sharon Agudelo MD ATTENTION *EDITS and/or ADDENDA must be made in Patient Ke eper for this note. * * Edits and ammendments created in [employer] are not visible * * in Patient Keeper or the legal medical record (HPF). * -- ASSESSMENT AND PLAN -- GENERAL ASSESSMENT: 1. Right hip pathological fracture, as seen on C T. Ortho consulted. pain management discussed with pt and family cardiology consulted for card clearance surgery on [facility] following Lovenox 40 mg SQ daily 2. Hypertension, continue lisinopril. Hold michelle eters in place. Hydralazine IV as needed for elevated BP Echocardiogram pending 3. Chronic pain syndrome, pain management.- Dr Liyah biggs 4. Bipolar disorder, continue Prozac. Denies SI/ HI. Follow up Psych. 5. Hypothyroidism, continue levothyroxine. Monit or TSH. Endocrine consulted TSH 49 Increased synthroid to 200 mcg po daily 6. DVT prophylaxis. -- SUBJECTIVE -- CHIEF COMPLAINT: Awake and alert complaints of right hip pain no fever no chest pain discussed with pt and family -REVIEW OF SYSTEMS- GENERAL: Negative for fever. RESPIRATORY: Negative for dyspnea. CARDIOVASCULAR: Negative for chest pain. GASTROINTESTINAL: Negative for abdominal pain. MUSCULOSKELETAL: Positive for hip pain. SKIN: Negative for rashes. -- OBJECTIVE -- VITALS (10/17 12:07 - 10/18 12:07): Temperature C: 36.7 (36.5 - 37.1) Temperature source: Oral Pulse Rate 78 (63 - 80) Respiratory rate: 17 (16 - 17) BP: 109/73 (109/73 - 150/97) I/Os (10/17 07:00 - 10/18 07:00): Net 920 Intake 920 -EXAM- GENERAL: Awake, alert, and oriented. HEAD: Normocephalic, atraumatic. NECK: No JVD, supple. LUNGS: Clear bilaterally with normal respiratory effort. HEART: Regular rate and rhythm, normal S1, S2. ABDOMEN: Soft, non-tender, non-distended, bowel sounds present. MUSCULOSKELETAL: Bilateral lower extremity weakn ess. EXTREMITIES: No clubbing, no cyanosis, no edema. NEUROLOGICAL: No focal deficits, cranial nerves II-XII grossly intact. -- DATA -- MEDICATIONS ENOXAPARIN SODIUM 40 MG SUBQ Q24H morphine SULFATE 4 MG IV Q4H PRN ONDANSETRON HCL/PF 4 MG IV Q6H PRN traMADol HCL 50 MG PO Q6H PRN PREGABALIN 150 MG PO BID HYDROcodone BITARTRATE/APAP 1 TAB PO Q4H PRN FLUoxetine HCL 60 MG PO DAILY PROMETHAZINE HCL with/in SODIUM CHLORIDE 50 mL B AG 12.5 MG IV Q6H PRN lisinopriL 20 MG PO DAILY ZOLPIDEM TARTRATE 5 MG PO BEDTIME PRN polyethylene glycoL 3350 1 PKT PO DAILY ACETAMINOPHEN 650 MG PO Q4H PRN diphenhydrAMINE HCL 25 MG PO Q6H PRN hydrALAZINE HCL 10 MG IV Q2H PRN clonazePAM 2 MG PO BID morphine SULFATE 2 MG IV Q4H PRN LEVOTHYROXINE SODIUM 200 MCG PO DAILY@0600 LABS T4F (10/17/22 17:10) T4 FREE 0.68 L Signed in PatientKeeper by Sharon Agudelo MD on 0 10/18/22 at 12:08 Electronically Signed by Sharon Agudelo MD on 09/05 at 1208 ATTENTION *EDITS and/or ADDENDA must be made in Patient Ke eper for this note. * * Edits and ammendments created in [employer] are not visible * * in Patient Keeper or the legal medical record ([facility]). * RPT #: [id number] END OF REPORT 2022-10-18 07:39:00-00:00 [facility] ([facility]) Endocrinology Consultation REPORT #: [id number] REPORT STATUS: Signed DATE: 10/18/22 TIME: 738 PATIENT: CYNDIE PENN UNIT #: [id number] ROOM #: P.0702 BED: 1 : 76 AGE: 46 SEX: F ATTEND: Matthew Agudelo MD ADM AUTHOR: Tamara Zhu APRN [employer] ENGINEER ATTENTION *EDITS and/or ADDENDA must be made in Patient Ke eper for this note. * * Edits and ammendments created in [employer] are not visible * * in Patient Keeper or the legal medical record ([facility]). * -- ASSESSMENT AND PLAN -- GENERAL ASSESSMENT: 1. Hypothyroidism - TSH 46.89. - Will place on levothyroxine 200 mcg 1 tab PO Q D - Monitor HR, BP 2. Right hip pain - Continue pain management 3. Right hip fracture - Dr Menchaca following 4. Hypertension - continue lisinopril. Monitor BP -- HISTORY -- CONSULT REQUESTED BY: Sharon Agudelo MD DATE/TIME AT BEDSIDE: 2022-10-18 07:41 REASON FOR CONSULT: Hypothyroidism CHIEF COMPLAINT: Hip pain post fall HPI: This is a 46 year old female with past medical h istory of bipolar disorder ADHD who presented to [facility] ER for evaluation of r ight-sided hip pain. she fell 7/2 onto her right hip. She also hit her right s houlder and right knee. Of note, patient was seen on 10/11 and was admitted overnight at [facility]. Orthopedics evaluated her an d noted longstanding/chronic pain with left femoral neck fracture and has been s een at multiple different ED's for falls. CT pelvis revealed chronic right femoral neck frac ture in nonunion. No acute fracture is seen. X-ray right hip revealed lytic lesion at t he right greater trochanter/femoral neck with underlying patholog ic fracture. Right shoulder x-ray revealed no acute fracture or malignment. TSH 46.89. Patient takes levothyroxine 200 mcg a recent increase from 150 mcg because she said she is chronically hypothyroid and her PCP cant get her levels to normal. We are consulted to manage this patient's hypothyroidis m. Thank you for consulting your. PAST MEDICAL HISTORY: Bipolar disorder, ADHD, anxiety, chronic pain sy ndrome, hypothyroidism, hypertension PAST SURGICAL HISTORY: Hysterectomy, lap gino -- ALLERGIES/HOME MEDS -- ALLERGIES: No Known Allergies (UNKNOWN - Allergy) HOME MEDICATIONS: clonazePAM disintegrating tablet 2 MG PO BID Lyrica cap (pregabalin) 150 MG PO BID -- SUBJECTIVE -- -REVIEW OF SYSTEMS- GENERAL: Negative for fever, malaise, fatigue. EYES: Negative for blurry vision. No diplopia. EARS/NOSE/THROAT: Negative for sore throat. No o talgia. No rhinorrhea. RESPIRATORY: Negative for dyspnea or wheeze. No cough. CARDIOVASCULAR: Negative for chest pain or palpi tations. No extremity swelling. GASTROINTESTINAL: Negative for abdominal pain or nausea. No emesis. No diarrhea. GENITOURINARY: Negative for dysuria, frequency, or urgency. No gross hematuria. MUSCULOSKELETAL: R hip pain SKIN: Negative for rashes. No pruritus. NEUROLOGICAL: Negative for headache. No vertigo. Denies paresthesias. PSYCHIATRIC: Negative for specific complaints. ENDOCRINE: Negative for cold intolerance, heat i ntolerance, polyphagia, polydipsia, polyuria, weight change , fatigue. HEMATALOGIC / LYMPHORETICULAR: Negative for exce ssive bleeding, unusual masses. ALLERGIC / IMMUNOLOGIC: Negative for heat/cold i ntolerance, polydipsia, or polyuria. -- OBJECTIVE -- VITALS (10/17 07:40 - 10/18 07:40): Temperature C: 36.6 (36.3 - 37.1) Temperature source: Oral Pulse Rate 80 (63 - 80) Respiratory rate: 17 (16 - 17) BP: 145/94 (133/82 - 150/97) I/Os (10/17 07:00 - 10/18 07:00): Net 920 Intake 920 -EXAM- GENERAL: Well developed, well nourished, in no a pparent distress. HEAD: Normocephalic, atraumatic. EYES: PERRL EARS: grossly normal hearing. NOSE: No deformity, no discharge, no inflammatio n, no lesions. MOUTH: Oropharynx without deformities or lesions , normal mucosa.. NECK: No masses, no thyromegaly, no abnormal cer vical nodes, trachea midline. CHEST: Grossly normal appearance. LUNGS: Clear bilaterally with normal respiratory effort. HEART: Regular rate and rhythm, normal S1, S2, n o murmurs, no rubs, no gallops, no clicks. ABDOMEN: Soft, non-tender, no organomegaly, no m asses noted. MUSCULOSKELETAL: No deformity, no scoliosis note d of thoracic or lumbar spine, joint ROM grossly normal, normal gait an d station. EXTREMITIES: No clubbing, no cyanosis, no edema. NEUROLOGICAL: No focal deficits PULSES: Pulses normal in all extremities. GENITOURINARY: Normal external genitalia. SKIN: Intact without significant lesions, or baldemar hes. PSYCHIATRIC: Alert and oriented to time, person, place. Normal mood and affect, intact judgment and insight. -- DATA -- MEDICATIONS ENOXAPARIN SODIUM 40 MG SUBQ Q24H morphine SULFATE 4 MG IV Q4H PRN ONDANSETRON HCL/PF 4 MG IV Q6H PRN traMADol HCL 50 MG PO Q6H PRN PREGABALIN 150 MG PO BID HYDROcodone BITARTRATE/APAP 1 TAB PO Q4H PRN FLUoxetine HCL 60 MG PO DAILY PROMETHAZINE HCL with/in SODIUM CHLORIDE 50 mL B AG 12.5 MG IV Q6H PRN lisinopriL 20 MG PO DAILY ZOLPIDEM TARTRATE 5 MG PO BEDTIME PRN polyethylene glycoL 3350 1 PKT PO DAILY ACETAMINOPHEN 650 MG PO Q4H PRN diphenhydrAMINE HCL 25 MG PO Q6H PRN LEVOTHYROXINE SODIUM 200 MCG PO DAILY@0600 hydrALAZINE HCL 10 MG IV Q2H PRN clonazePAM 2 MG PO BID morphine SULFATE 2 MG IV Q4H PRN LABS TSH (10/17/22 04:21) THYROID STIMULATING HORMONE 46.89 H T4F (10/17/22 17:10) T4 FREE 0.68 L -- ATTESTATION -- TIME SPENT ON PATIENT CARE: - Direct 20 minutes - Counseling 5 minutes - Coordination of Care 20 minutes Signed in PatientKeeper by TAMARA ZHU on 10/18/22 at 07:53 Cosigned by LUDMILA CHOPRA MD on 11/08/22 at 1 9:44 at 1944 at 1944 ATTENTION *EDITS and/or ADDENDA must be made in Patient Ke eper for this note. * * Edits and ammendments created in [facility] are not visible * * in Patient Keeper or the legal medical record (HPF). * [facility] #: [id number] END OF REPORT 2022-10-17 23:09:00-00:00 [id number] [facility] [address] [place] [address] PATIENT NAME: CYNDIE PENN ADMIT DATE: 3 ACCOUNT NO: [id number] ROOM NO: [facility] AGE: 46 REPORT TYPE: CONSULTATION SEX: F ADMITTING PHYSICIAN:Sharon Agudelo MD ATTENDING PHYSICIAN:Sharon Agudelo MD CONSULTATION DATE: 10/17/2022 CHAIR UPHOLSTERER: Myself, Dr. Menchaca, orthopedics. HISTORY OF PRESENT ILLNESS: This is a 46-year-old who I think has been to a few ERs, at least [facility], but she had mentioned other ones as well and it sounds like she has had right hip pain and that is why she came in with. She has been unable to just get fixed. REVIEW OF SYSTEMS: There is history of bipolar, ADHD, chronic pain problems, decreased thyroid, hypotensi on, previous laparoscopic cholecystectomy as well as a hysterectomy. No other heart, lung, GI, or end ocrine. PHYSICAL EXAMINATION: She has normal toe motion, normal sensation. Capillary refill is less than 3 seconds and the skin is in tact. Review of the CT and plain x-ray shows a right femoral neck fracture with kind of a collapse of close to 2 cm. ASSESSMENT AND PLAN: We discussed with her owen pinto the discharge and getting rescheduled from clinic. Unfortunately, she does not believe she can tolerate it any further. I told her that we coul d do the total hip maybe on . There is a three times infection rate since she has been in the hospital, then coming in and doing as an outpati ent. She is willing to take that risk. So, we are going to go ahead and put her on for to do a right total hip arthroplasty. Thank you again for the kind consultation. If yo u have any comments or questions, please give me a call. Dictated By: Balbir Menchaca MD Date Dictated: 10/17/2022 23:09:31 Date Transcribed: 10/18/2022 00:25:55 CARRIE/JAKY/DA/YAN Receipt ID: [id number] Authenticated by Balbir Menchaca MD On 023 10:41:02 AM PATIENT NAME: CYNDIE PENN 0771 Electronically Signed by Balbir Menchaca MD on 0 10/18/22 at 1041 PATIENT NAME: CYNDIE PENN 0771 2022-10-17 18:59:00-00:00 [facility] ([facility]) Med Order Sheet REPORT #: [id number] REPORT STATUS: Signed DATE: 10/17/22 TIME: 9 PATIENT: CYNDIE PENN UNIT #: [id number] ROOM #: [facility] BED: 1 : 76 AGE: 46 SEX: F ATTEND: Matthew Agudelo MD ADM AUTHOR: Sharon Agudelo MD ATTENTION *EDITS and/or ADDENDA must be made in Patient Ke eper for this note. * * Edits and ammendments created in [employer] are not visible * * in Patient Keeper or the legal medical record (HPF). * Admission Medication Reconciliation -- CONTINUED / CHANGED HOME MEDICATIONS -- Home: clonazePAM disintegrating tablet 2 MG PO B ID Hosp: Existing: clonazePAM Tab (KlonoPIN Tab) 2M G PO BID Home: Lyrica cap (pregabalin) 150 MG PO BID Hosp: Existing: Pregabalin Cap (Lyrica Cap) 150M G PO BID Electronically Signed by Sharon Agudelo MD on 08/06 at 1859 ATTENTION *EDITS and/or ADDENDA must be made in Patient [facility] for this note. * * Edits and ammendments created in [facility] are not visible * * in Patient Keeper or the legal medical record ([facility]). * RPT #: [id number] END OF REPORT 2022-10-17 11:35:00-00:00 [facility] ([facility]) Internal Med. Progress Note REPORT #: [id number] REPORT STATUS: Signed DATE: 10/17/22 TIME: 1135 PATIENT: CYNDIE PENN UNIT #: [id number] ROOM #: P.0702 BED: 1 : 76 AGE: 46 SEX: F ATTEND: Matthew Agudelo MD ADM AUTHOR: Sharon Agudelo MD ATTENTION *EDITS and/or ADDENDA must be made in Patient [facility] for this note. * * Edits and ammendments created in [facility] are not visible * * in Patient Keeper or the legal medical record (HPF). * -- ASSESSMENT AND PLAN -- GENERAL ASSESSMENT: 1. Right hip pathological fracture, as seen on C T. Ortho consulted. pain management discussed with pt and family Lovenox 40 mg SQ daily 2. Hypertension, continue lisinopril. Hold michelle eters in place. Hydralazine IV as needed for elevated BP 3. Chronic pain syndrome, pain management.- Dr Liyah biggs 4. Bipolar disorder, continue Prozac. Denies SI/ HI. Follow up Psych. 5. Hypothyroidism, continue levothyroxine. Monit or TSH. Endocrine consulted TSH 49 Increased synthroid to 200 mcg po daily 6. DVT prophylaxis. -- SUBJECTIVE -- CHIEF COMPLAINT: Awake and alert complaints of right hip pain no fever no chest pain -REVIEW OF SYSTEMS- GENERAL: Negative for fever. RESPIRATORY: Negative for dyspnea. CARDIOVASCULAR: Negative for chest pain. GASTROINTESTINAL: Negative for abdominal pain. MUSCULOSKELETAL: Positive for hip pain. SKIN: Negative for rashes. -- OBJECTIVE -- VITALS (10/16 11:35 - 10/17 11:35): Temperature F: 97.9 Temperature C: 36.5 (36.3 - 36.9) Temperature source: Oral Pulse Rate 64 (64 - 89) Respiratory rate: 17 (16 - 19) BP: 150/94 (131/73 - 150/94) -EXAM- GENERAL: Awake, alert, and oriented. HEAD: Normocephalic, atraumatic. NECK: No JVD, supple. LUNGS: Clear bilaterally with normal respirator y effort. HEART: Regular rate and rhythm, normal S1, S2. ABDOMEN: Soft, non-tender, non-distended, bowel sounds present. MUSCULOSKELETAL: Bilateral lower extremity weakn ess. EXTREMITIES: No clubbing, no cyanosis, no edema. NEUROLOGICAL: No focal deficits, cranial nerves II-XII grossly intact. -- DATA -- MEDICATIONS ENOXAPARIN SODIUM 40 MG SUBQ Q24H ONDANSETRON HCL/PF 4 MG IV Q6H PRN traMADol HCL 50 MG PO Q6H PRN GABAPENTIN 300 MG PO BID FLUoxetine HCL 60 MG PO DAILY PROMETHAZINE HCL with/in SODIUM CHLORIDE 50 mL B AG 12.5 MG IV Q6H PRN lisinopriL 20 MG PO DAILY ZOLPIDEM TARTRATE 5 MG PO BEDTIME PRN polyethylene glycoL 3350 1 PKT PO DAILY ACETAMINOPHEN 650 MG PO Q4H PRN diphenhydrAMINE HCL 25 MG PO Q6H PRN LEVOTHYROXINE SODIUM 200 MCG PO DAILY@0600 hydrALAZINE HCL 10 MG IV Q2H PRN morphine SULFATE 2 MG IV Q4H PRN LABS BASIC METABOLIC PANEL (10/17/22 04:21) SODIUM 141 POTASSIUM 4.0 CHLORIDE 105 CARBON DIOXIDE 28 GLUCOSE 92 BLOOD UREA NITROGEN 6L L GLOMERULAR FILTRATION RATE >=60 max estimate CREATININE 0.70 CALCIUM 8.6 L CBC W/AUTO DIFF (10/17/22 04:21) WHITE BLOOD CELL 5.4 RED BLOOD CELL 4.09 L HEMOGLOBIN 12.0 HEMATOCRIT 37.0 MEAN CELL VOLUME 90.5 MEAN CELL HGB 29.3 MEAN CELL HGB CONCENTRATION 32.4 L RED CELL DISTRIBUTION WIDTH 13.9 PLATELET COUNT 283 MEAN PLATELET VOLUME 10.1 NEUTROPHIL % 48.3 LYMPHOCYTE % 40.4 MONOCYTE % 7.2 EOSINOPHIL % 2.6 BASOPHIL % 1.1 NEUTROPHIL # 2.63 LYMPHOCYTE # 2.20 MONOCYTE # 0.39 EOSINOPHIL # 0.14 BASOPHIL # 0.06 TSH (10/17/22 04:21) THYROID STIMULATING HORMONE 46.89 H Signed in PatientKeeper by Sharon Agudelo MD on 0 10/17/22 at 11:38 Electronically Signed by Sharon Agudelo MD on 08/06 at 1138 ATTENTION *EDITS and/or ADDENDA must be made in Patient Ke eper for this note. * * Edits and ammendments created in [facility] are not visible * * in Patient Keeper or the legal medical record (HPF). * [facility] #: [id number] END OF REPORT 2022-10-16 21:47:00-00:00 [facility] ([facility]) Internal Med. H P REPORT #: [id number] REPORT STATUS: Signed DATE: 10/16/22 TIME: 2146 PATIENT: CYNDIE PENN UNIT #: [id number] ROOM #: P.0702 BED: 1 : 76 AGE: 46 SEX: F ATTEND: Matthew Agudelo MD ADM AUTHOR: Jennifer Rodrigues NP ATTENTION *EDITS and/or ADDENDA must be made in Patient Ke eper for this note. * * Edits and ammendments created in [employer] are not visible * * in Patient Keeper or the legal medical record (HPF). * -- HISTORY -- ADMISSION DATE: 2022-10-16 PRIMARY CARE PROVIDER: Carla, Noe CHIEF COMPLAINT: Right hip pain HPI: This is a 46 year old female with past medical h istory of bipolar disorder ADHD who presented to [facility] ER for evaluat ion of right-sided hip pain. According to patient, she fell yesterday and fell onto her right hip. She also hit her right shoulder and right knee. Of note, patient was seen on 10/11 and was admitted overnight at [facility]. Orthopedics rafael luated her and noted longstanding/chronic pain with left femo ral neck fracture and has been seen at multiple different ED's for falls. 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 No acute frac ture is seen. X-ray right hip revealed lytic lesion at the right greater trochanter/fem oral neck with underlying pathologic fracture. Right shoulder x-ray reveal ed no acute fracture or malalignment. Pending Ortho evaluation. PAST MEDICAL HISTORY: Bipolar disorder, ADHD, anxiety, chronic pain sy ndrome, hypothyroidism, hypertension PAST SURGICAL HISTORY: Hysterectomy, lap gino IMMUNIZATION STATUS: None recent FAMILY HISTORY: Non-contributory -SOCIAL HISTORY- ADDITIONAL SOCIAL HISTORY: NEG ETOH, NEG tobacco -- ALLERGIES/HOME MEDS -- ALLERGIES: No Known Allergies (UNKNOWN - Allergy) -- SUBJECTIVE -- -REVIEW OF SYSTEMS- GENERAL: Negative for fever. RESPIRATORY: Negative for dyspnea. CARDIOVASCULAR: Negative for chest pain. GASTROINTESTINAL: Negative for abdominal pain. MUSCULOSKELETAL: Positive for hip pain. SKIN: Negative for rashes. -- OBJECTIVE -- VITALS (10/15 21:48 - 10/16 21:48): Temperature F: 97.9 Temperature source: Oral Pulse Rate 89 Respiratory rate: 19 BP: 145/80 -EXAM- GENERAL: Awake, alert, and oriented. HEAD: Normocephalic, atraumatic. EYES: PERRL, EOM intact, conjunctiva and sclera clear. NECK: No JVD, supple. LUNGS: Clear bilaterally with normal respiratory effort. HEART: Regular rate and rhythm, normal S1, S2. ABDOMEN: Soft, non-tender, non-distended, bowel sounds present. MUSCULOSKELETAL: Bilateral lower extremity weakn ess. EXTREMITIES: No clubbing, no cyanosis, no edema. NEUROLOGICAL: No focal deficits, cranial nerves II-XII grossly intact. PULSES: Pulses normal in all extremities. SKIN: Intact without significant lesion. -- ASSESSMENT AND PLAN -- GENERAL ASSESSMENT: 1. Right hip pathological fracture, as seen on C T. Ortho consulted. 2. Hypertension, continue lisinopril. Hold michelle eters in place. 3. Chronic pain syndrome, pain management. 4. Bipolar disorder, continue Prozac. Denies SI/ HI. Follow up Psych. 5. Hypothyroidism, continue levothyroxine. Monit or TSH. 6. DVT prophylaxis. CONSULTANTS: Ortho, Pain management Signed in PatientKeeper by Jennifer Rodrigues NP on 0 10/16/22 at 23:45 Cosigned by SHARON AGUDELO MD on 10/17/22 at 07:5 5 Electronically Signed by Jennifer Rodrigues NP on 08/06 at 0755 Electronically Signed by Sharon Agudelo MD on 08/06 at 0755 ATTENTION *EDITS and/or ADDENDA must be made in Patient Ke eper for this note. * * Edits and ammendments created in [employer] are not visible * * in Patient Keeper or the legal medical record ([facility]PF). * RPT #: [id number] END OF REPORT 2022-10-16 18:09:00-00:00 [facility] ([facility]) EMERGENCY PROVIDER REPORT REPORT#:[id number] REPORT STATUS: Signed DATE:10/16/22 TIME: 1808 PATIENT: CYNDIE PENN UNIT #: [id number] ROOM: [facility] BED: 1 AGE: 46 SEX: F PCP PHYS: Undefined Provider SERVICE AUTHOR: Sabrina Artis MD * ALL edits or amendments must be made on the el [employer]/computer document * HPI-General Illness Free Text HPI Notes Free Text HPI Notes 46-year-old female past medical history significant for bipolar, ADHD presents to [facility] ER for evaluation of right-sided hip pain. States that yesterday morning at 7 AM, she slipped and fell onto her r ight hip. Also states that she hit her right shoulder and her right knee although pain is lesser in these areas. Denies any head trauma, loss of consciousness, o r pain/trauma elsewhere. Of note, patient was seen on 10/11 and was admitted overnight at [facility]. Orthopedics evaluated her an d noted longstanding/chronic pain with left femoral neck fracture and has been seen at multiple [facility] ED's for falls. General Initial Greet Date/Time 10/16/22 1712 Presentation Chief Complaint R hip pain. Review of Systems Free Text ROS Notes Free Text ROS Notes Constitutional: Denies: Chills, Fatigue. Eyes: Denies: Blurry Vision, Diplopia. ENT: Denies: Sinus problem, Sore throat. Respiratory: Denies: Cough, Shortness of breath. Cardiovascular: Denies: Chest pain, Palpitations. GI: Denies: Abdominal pain, Nausea, Vomiting. : Denies: Dysuria, Flank pain. Musculoskeletal: +Extremity pain. Hematologic Denies: Bleeding. Neurologic Denies: Change LOC, Confusion, Slurred speech. Past Medical History - Adult Stated Complaint HIP PAIN POST FALL Allergies Coded Allergies: No Known Allergies (10/16/22) Calculated Suicide Risk (nurs) No risk Additional Medical History Bipolar disorder, ADHD, anxiety, chronic pain sy ndrome, hypothyroidism, hypertension Smoking status for patients 13 years old or olde r: Never Smoker Physical Exam Vital Signs Vital Signs First Documented: Result Date Time Pulse Ox 98 / 1706 B/P 145/80 07/ 1706 B/P Mean 101 / 1706 O2 Delivery Room air 10/16 1706 Temp 36.6 / 1706 Pulse 89 / 1706 Resp 19 10/16 1706 Last Documented: Result Date Time Pulse Ox 98 07/ 1706 B/P 145/80 / 1706 B/P Mean 101 /03 1706 O2 Delivery Room air / 1706 Temp 36.6 / 1706 Pulse 89 / 1706 Resp 19 10/16 1706 Review of Vital Signs Reviewed Free Text PE Notes Free Text PE Notes Constitutional: Well nourished, well-developed, no acute distress. Head: Atraumatic, normocephalic ENT: No periorbital ecchymosis or hairston sign. N o midline c-spine TTP. Jaw approximates normally. Trachea midline and neck supple. Respiratory: Normal respiratory effort. Lungs CT AB. No crackles or wheezes. Cardiovacsular: RRR. No murmurs or rubs. Abdomen: Abdomen soft, nondistended, nontender t o palpation. NBS. : Pelvis stable and nontender to palpation. Back: No significant thoracic or lumbar midline TTP. No step offs or deformities. No overlying skin lesions noted. Fu ll spinal ROM. Extremities: Mild tenderness to palpation over t he right shoulder, right hip, and right knee. Mild limitation of range of ayden on of right hip due to discomfort but still is able to to lift leg agai nst gravity. Otherwise, no other significant TTP over bilateral upper extre mities including shoulders, elbows, wrists and hands. No other significant T TP over bilateral lower extremities including hips, knees, ankles, and f eet. Full ROM of BUE/BLE. No gross deformities of extremities. Interpretation Diagnostics Lab Results Interpretation Results Recent Impressions: RADIOLOGY - XR HIP W/PEL UNI 2+V RT 10/16 1745 Report Impression - Status: SIGNED Entered: 10/16/2022 184 IMPRESSION: Lytic lesion at the right greater trochanter/fem oral neck with underlying pathologic fracture. Impression By: Nathaniel CUTLER M.D. RADIOLOGY - XR SHOULDER 2 + V RT 10/16 1750 Report Impression - Status: SIGNED Entered: 10/16/2022 184 IMPRESSION: No acute fracture or malalignment. Impression By: Nathaniel CUTLER M.D. RADIOLOGY - XR KNEE 1 OR 2 V RT 10/16 1838 Report Impression - Status: SIGNED Entered: 10/16/2022 184 IMPRESSION: Lytic lesion at the right greater trochanter/fem oral neck with underlying pathologic fracture. Impression By: Nathaniel CUTLER M.D. Re-Evaluation MDM Free Text MDM Notes Free Text MDM Notes History and physical as above. X-ray javy ging showing lytic lesion in the right greater trochanter/femoral neck with underlying pathologic fracture. Case was discussed with Dr. Menchaca who sent patient in, including prior visits to [facility] as noted in HPI. He requested admissio n for pain control as well as CT imaging. Discussed patient with and admitted to the inpatient medicine service for further management/workup. Did f/u o n CT imaging - no evidence of acute hip fx; chronic. ED Course Medication(s) Ordered Medication(s) Ordered: Central Nervous System Agents Sig/Heather Start time Last Medication Dose Route Stop Time Status Admin Hydrocodone Bitart/ 1 TAB X1ED STA 10/16 1713 D C 10/16 Acetaminophen PO 10/16 1714 1800 Patient Discharge Departure Vital Signs/Condition Vital Signs First Documented: Result Date Time Pulse Ox 98 10/16 1706 B/P 145/80 / 1706 B/P Mean 101 / 1706 O2 Delivery Room air 10/16 1706 Temp 36.6 / 1706 Pulse 89 10/16 1706 Resp 19 10/16 1706 Last Documented: Result Date Time Pulse Ox 98 10/16 1706 B/P 145/80 / 1706 B/P Mean 101 / 1706 O2 Delivery Room air 10/16 1706 Temp 36.6 10/16 1706 Pulse 89 10/16 1706 Resp 19 10/16 1706 All vital signs available at the time of this en try have been reviewed. Clinical Impression Clinical Impression Primary Impression: Chronic fracture Secondary Impressions: Fall, Hip fracture, Right hip pain Disposition Decision Hospitalize Hosp Physician Name Sharon Agudelo MD Request Time 1900 Request Date 10/16/22 )( Accepts Hospitalization Yes )( Accepted Time 1900 )( Accepted Date 10/16/22 Electronically Signed by Sabrina Artis MD on at 0947 [facility] #:[id number] END OF REPORT"
[2022-11-22] MEDS ORDERED: KETOROLAC 30 MG/ML INJ ONE (10:17)
--- NOTE | 2022-11-22 10:40 | RAD REPORT ---
EXAM DESCRIPTION: CT - Pelvis Wo Cont - 11/22/2022 9:38 am CLINICAL HISTORY: TRAUMA COMPARISON: Pelvis Wo Cont dated 07/10/2022; Ankle Right 3 View dated 11/22/2022 TECHNIQUE: Thin cut axial CT imaging of the pelvis was performed without IV contrast. Multiplanar re formats were generated and reviewed. All CT scans are performed using dose optimization technique as appropriate and may include automated exposure control or mA/KV adjustment according to patient size. FINDINGS: Visualized pelvic organs are unremarkable. Degenerative changes at L5-S1 with disc height loss and disc vacuum phenomenon. Surrounding soft tissues are unremarkable. No evidence of acute fractures. Right total hip arthroplasty hardware in satisfactory alignment witho ut evidence of complications. No suspicious bony findings. Postsurgical changes along the right anterior upper thigh soft tissues with skin lor. IMPRESSION: No evidence of acute traumatic findings in the pelvis.
--- NOTE | 2022-11-22 10:51 | ER ---
Nurse's Notes [facility] Name: Rody Doan Age: 46 yrs Sex: Female : 1975 Arrival Date: 11/22/2022 Time: 09:00 Bed 8 Private MD: Diagnosis: Fall on same level from slipping, tripping and stumbling with subsequent striking against object Presentation: 11/22 09:09 Chief complaint: EMS states: patient fell this morning, had total hip replacement on ko1 the right a month ago at [facility]. Complains of right hip and leg pain after fall. Coronavirus screen: At this time, the client does not indicate any symptoms associated with coronavirus-19. Ebola Screen: No symptoms or risks identified at this time. Initial Sepsis Screen: Does the patient meet any 2 criteria? No. Patient's initial sepsis screen is negative. Does the patient have a suspected source of infection? No. Patient's initial sepsis screen is negative. Risk Assessment: Do you want to hurt yourself or someone else? Patient reports no desire to harm self or others. Onset of symptoms was November 22, 2022. 09:09 Method Of Arrival: EMS: [facility] ko1 09:09 Acuity: MEGHA 3 ko1 Triage Assessment: 09:12 General: Appears in no apparent distress. uncomfortable, Behavior is calm, cooperative, ko1 appropriate for age. Pain: Complains of pain in right leg. Historical: - Allergies: 09:12 Flexeril; ko1 09:12 Morphine; ko1 - PMHx: 09:12 Anxiety; Bipolar disorder; Chronic pain; Depression; Hypertension; Hypothyroidism; ko1 Seizures; - PSHx: 09:12 Cholecystectomy; hysterectomy; ko1 - Immunization history:: Adult Immunizations unknown. - Social history:: Smoking status: Patient denies any tobacco usage or history of. Screenin:14 [facility] ED Fall Risk Assessment (Adult) History of falling in the last 3 months, ko1 including since admission Yes- single mechanical fall (1 pt) Confusion or Disorientation No (0 pts) Intoxicated or Sedated No (0 pts) Impaired Gait Yes (1 pt) Mobility Assist Device Used No (0 pt) Altered Elimination No (0 pt) Score/Fall Risk Level 0 - 2 = Low Risk Oriented to surroundings, Maintained a safe environment, Educated pt \T\ family on fall prevention, incl call for assistance when getting out of bed, Assessed \T\ reinforced patient's understanding of fall precautions, Provided non-skid footwear, Hourly rounding (assess needs \T\ fall precautionary measures) done, Used ambulatory aids as needed (educated on \T\ assisted with), Used gait belt as appropriate. Abuse screen: Denies threats or abuse. Denies injuries from another. Nutritional screening: No deficits noted. Tuberculosis screening: No symptoms or risk factors identified. Assessment: 09:14 Neuro: No deficits noted. Cardiovascular: No deficits noted. Respiratory: No deficits ko1 noted. GI: No deficits noted. : No deficits noted. EENT: No deficits noted. Derm: No deficits noted. Musculoskeletal: Reports pain in right leg. Vital Signs: 09:09 BP 133 / 109; Pulse 93; Resp 18; Temp 98.9; Pulse Ox 100% on R/A; Weight 68.04 kg; ko1 Height 5 ft. 4 in. ; Pain 8/10; 09:15 BP 136 / 111; Pulse 94; Resp 18; Pulse Ox 99% ; ko1 09:36 BP 145 / 87; Pulse 78; Resp 16; Pulse Ox 99% ; ko1 09:45 BP 147 / 80; Pulse 82; Resp 16; Pulse Ox 100% ; ko1 10:15 BP 153 / 90; Pulse 69; Resp 16; Pulse Ox 100% ; ko1 09:09 Body Mass Index 25.75 (68.04 kg, 162.56 cm) ko1 09:09 Pain Scale: Adult ko1 ED Course: 09:03 Patient arrived in ED. bd 09:05 Kasie Escudero FNP-C is PHCP. snw 09:05 Yamini Gonzalez MD is Attending Physician. snw 09:09 Cynthia Mejia, BONIFACIO is Primary Nurse. ko1 09:12 Triage completed. ko1 09:12 Arm band placed on right wrist. Patient placed in an exam room, on a stretcher, on ko1 pulse oximetry, Patient notified of wait time. 09:14 Patient has correct armband on for positive identification. Allergy band placed. Fall ko1 risk band placed. Placed in gown. Bed in low position. Call light in reach. Side rails up X2. Provided Education on: NA. Pulse ox on. NIBP on. Door closed. Noise minimized. Warm blanket given. 09:32 Ankle Right 3 View XRAY In Process Unspecified. EDMS 09:40 CT Pelvis wo Cont In Process Unspecified. EDMS 11:03 No provider procedures requiring assistance completed. Patient did not have IV access ss during this emergency room visit. Administered Medications: 10:12 Drug: Ketorolac IM 30 mg Route: IM; Site: right deltoid; ko1 10:47 Follow up: Response: No adverse reaction; Pain is unchanged, physician notified ko1 Outcome: 10:51 Discharge ordered by . tima 11:03 Discharged to home ambulatory. ss 11:03 Condition: good 11:03 Discharge instructions given to patient, Instructed on discharge instructions, follow up and referral plans. Demonstrated understanding of instructions, follow-up care. 11:04 Patient left the ED. ss Signatures: Dispatcher [employer] EDMS Leonarda Cevallos Shelly, BOW MAKER CUSTOM-C BOW MAKER CUSTOM-Csnw Earlene Mcgovern, RN RN Cynthia Mejai, RN RN ko1
--- NOTE | 2022-11-22 10:51 | EDPHYS ---
Physician Documentation [facility] Name: Rody Doan Age: 46 yrs Sex: Female : 1975 Arrival Date: 11/22/2022 Time: 09:00 Bed 8 Private MD: ED Physician Yamini Gonzalez HPI: 11/22 09:21 This 46 yrs old Female presents to ER via EMS with complaints of fall. snw 09:21 The patient presents with an injury, pain, that is acute. The complaints affect the snw right upper thigh and anterior aspect of right ankle. Context: The problem was sustained at home, resulted from the patient tripping, slide, the patient can partially bear weight, the patient is not able to ambulate, Problem is a result from a previous injury: Pt had total right hip replacement at [facility] one month ago. Stopped using walker yesterday. Doing well until 0630 this am when she tripped over the slide she was wearing and fell onto right hip. Onset: The symptoms/episode began/occurred acutely. Treatment prior to arrival includes: no previous treatment. Severity of symptoms: At their worst the symptoms were moderate. The patient has not experienced similar symptoms in the past. as noted. Historical: - Allergies: 09:12 Flexeril; ko1 09:12 Morphine; ko1 - PMHx: 09:12 Anxiety; Bipolar disorder; Chronic pain; Depression; Hypertension; Hypothyroidism; ko1 Seizures; - PSHx: 09:12 Cholecystectomy; hysterectomy; ko1 - Immunization history:: Adult Immunizations unknown. - Social history:: Smoking status: Patient denies any tobacco usage or history of. ROS: 09:20 Constitutional: Negative for fever, chills, and weight loss, Eyes: Negative for injury, snw pain, redness, and discharge, ENT: Negative for injury, pain, and discharge, Neck: Negative for injury, pain, and swelling, Cardiovascular: Negative for chest pain, palpitations, and edema, Respiratory: Negative for shortness of breath, cough, wheezing, and pleuritic chest pain, Abdomen/GI: Negative for abdominal pain, nausea, vomiting, diarrhea, and constipation, Back: Negative for injury and pain, : Negative for injury, bleeding, discharge, and swelling, Skin: Negative for injury, rash, and discoloration, Neuro: Negative for headache, weakness, numbness, tingling, and seizure, Psych: Negative for depression, anxiety, suicide ideation, homicidal ideation, and hallucinations. 09:20 MS/extremity: Positive for injury or acute deformity, pain, of the anterior aspect of right ankle and right upper thigh. Exam: 09:20 Constitutional: This is a well developed, well nourished patient who is awake, alert, snw and in no acute distress. Head/Face: Normocephalic, atraumatic. Eyes: Pupils equal round and reactive to light, extra-ocular motions intact. Lids and lashes normal. Conjunctiva and sclera are non-icteric and not injected. Cornea within normal limits. Periorbital areas with no swelling, redness, or edema. ENT: Nares patent. No nasal discharge, no septal abnormalities noted. Tympanic membranes are normal and external auditory canals are clear. Oropharynx with no redness, swelling, or masses, exudates, or evidence of obstruction, uvula midline. Mucous membranes moist. Neck: Trachea midline, no thyromegaly or masses palpated, and no cervical lymphadenopathy. Supple, full range of motion without nuchal rigidity, or vertebral point tenderness. No Meningismus. Chest/axilla: Normal chest wall appearance and motion. Nontender with no deformity. No lesions are appreciated. Cardiovascular: Regular rate and rhythm with a normal S1 and S2. No gallops, murmurs, or rubs. Normal PMI, no JVD. No pulse deficits. Respiratory: Lungs have equal breath sounds bilaterally, clear to auscultation and percussion. No rales, rhonchi or wheezes noted. No increased work of breathing, no retractions or nasal flaring. Abdomen/GI: Soft, non-tender, with normal bowel sounds. No distension or tympany. No guarding or rebound. No evidence of tenderness throughout. Back: No spinal tenderness. No costovertebral tenderness. Full range of motion. Skin: Warm, dry with normal turgor. Normal color with no rashes, no lesions, and no evidence of cellulitis. Neuro: Awake and alert, GCS 15, oriented to person, place, time, and situation. Cranial nerves II-XII grossly intact. Motor strength 5/5 in all extremities. Sensory grossly intact. Cerebellar exam normal. Normal gait. Psych: Awake, alert, with orientation to person, place and time. Behavior, mood, and affect are within normal limits. 09:20 Musculoskeletal/extremity: Extremities: grossly normal except: noted in the right upper thigh and anterior aspect of right ankle: decreased ROM, tenderness, Circulation is intact in all extremities. Sensation intact. Vital Signs: 09:09 BP 133 / 109; Pulse 93; Resp 18; Temp 98.9; Pulse Ox 100% on R/A; Weight 68.04 kg; ko1 Height 5 ft. 4 in. ; Pain 8/10; 09:15 BP 136 / 111; Pulse 94; Resp 18; Pulse Ox 99% ; ko1 09:36 BP 145 / 87; Pulse 78; Resp 16; Pulse Ox 99% ; ko1 09:45 BP 147 / 80; Pulse 82; Resp 16; Pulse Ox 100% ; ko1 10:15 BP 153 / 90; Pulse 69; Resp 16; Pulse Ox 100% ; ko1 09:09 Body Mass Index 25.75 (68.04 kg, 162.56 cm) ko1 09:09 Pain Scale: Adult ko1 MDM: 09:05 Patient medically screened. snw 09:24 Differential diagnosis: dislocation, closed fracture, contusion, tendonitis. Data snw reviewed: vital signs, nurses notes, radiologic studies, CT scan, plain films. Counseling: I had a detailed discussion with the patient and/or guardian regarding: the historical points, exam findings, and any diagnostic results supporting the discharge/admit diagnosis, the presence of at least one elevated blood pressure reading (>120/80) during this emergency department visit, radiology results, the need for outpatient follow up, for definitive care, to return to the emergency department if symptoms worsen or persist or if there are any questions or concerns that arise at home. Special discussion: Based on the history and exam findings, there is no indication for further emergent testing or inpatient evaluation. I discussed with the patient/guardian the need to see the orthopedic surgeon for further evaluation of the symptoms. I discussed with the patient/guardian the need to see the primary care provider for further evaluation of the symptoms. 09:54 Historians other than the Patient: EMS: [facility]. snw 11/22 09:12 Order name: CT Pelvis wo Cont; Complete Time: 10:49 snw 11/22 09:12 Order name: Ankle Right 3 View XRAY; Complete Time: 11:16 snw Administered Medications: 10:12 Drug: Ketorolac IM 30 mg Route: IM; Site: right deltoid; ko1 10:47 Follow up: Response: No adverse reaction; Pain is unchanged, physician notified ko1 Disposition Summary: 11/22/22 10:51 Discharge Ordered Location: Home snw Condition: Stable snw Diagnosis - Fall on same level from slipping, tripping and stumbling with subsequent striking snw against object Followup: snw - With: Emergency Department - When: As needed - Reason: Worsening of condition Followup: snw - With: Private Physician - When: 2 - 3 days - Reason: Recheck today's complaints, Continuance of care, Re-evaluation by your physician Discharge Instructions: - Discharge Summary Sheet snw - Head Injury, Adult snw - Fall Prevention in the Home, Adult snw - Hip Pain snw Forms: - Medication Reconciliation Form snw - Thank You Letter snw - Antibiotic Education snw - Prescription Opioid Use snw - Patient Portal Instructions snw Signatures: Dispatcher [employer] Kasie Nur FNP-C HOSPITAL ADMISSIONS OFFICER-Csnw Cynthia Mejia, RN RN ko1
[2022-11-22 11:09] VITALS: TEMP 98.9
--- NOTE | 2022-11-22 11:10 | RAD REPORT ---
EXAM DESCRIPTION: RAD - Ankle Right 3 View - 11/22/2022 9:30 am CLINICAL HISTORY: Right ankle pain FINDINGS: No fracture or dislocation is seen. Lateral soft tissue swelling
[2022-11-22 11:14] VITALS: O2SAT 100
[2022-11-22 11:15] VITALS: BP 153/90
== END 2022-11-22 11:04 | disposition home or self-care (01) ==
LOC: ER 09:00
DX: M25.571 Pain in right ankle and joints of right foot (principal); M25.551 Pain in right hip; W01.198A Fall on same level from slipping, tripping and stumbling with subsequent striking against other object, initial encounter; Z96.641 Presence of right artificial hip joint; Z88.5 Allergy status to narcotic agent; Z88.8 Allergy status to other drugs, medicaments and biological substances
CPT/HCPCS: 72192

== ENCOUNTER 2023-02-26 21:07 | Emergency (ER) | payer OTHER ==
--- OUTSIDE RECORDS SUMMARY | 2023-02-26 21:26 | XMS REPORT | Continuity of Care Document ---
:1975 Author Organization [facility] t Address [address] [place] [address] Care Team Providers Name Role Phone Asked, No Pcp Primary Care Physician Unavailable ANIKA MCKEON Attending Clinician Unavailable [email or web address] Attending Clinician Unavailable SATHISH VARELA Attending Clinician Unavailable SATHISH VARELA Attending Clinician Unavailable Doctor Unassigned, [place] Attending Clinician Unavailable ERIN ARGUELLO Attending Clinician Unavailable ERIN ARGUELLO Attending Clinician Unavailable YENNI BECERRA Attending Clinician Unavailable YENNI BECERRA Attending Clinician Unavailable Sandoval Agudelo Attending Clinician Unavailable Husam Sol MD Attending Clinician Ronnie CARLOS, [facility] Katheryn Attending Clinician Mathew Viera DO Attending Clinician Provider, Unknown Attending Clinician Unavailable MARIIA CURRAN Attending Clinician Unavailable Mariia Landry Attending Clinician Stefania Tobar MD Attending Clinician LUTHER JOSE Attending Clinician Unavailable Leno Attending Clinician Unavailable Seth Ariza MD Attending Clinician STEFANIA TOBAR Attending Clinician Unavailable LISA MURILLO Attending Clinician Unavailable Lisa Lopez Attending Clinician STEFANIA HERNADEZ Attending Clinician Unavailable Stefania Jones DO Attending Clinician ANDERSON ALATORRE Attending Clinician Unavailable Anderson Alatorre MD Attending Clinician Dionisio Freeman MD Attending Clinician Kristine Ojeda MD Attending Clinician Unavailable Pcp-Lab Attending Clinician Unavailable Lex Ochoa MD [...] Attending Clinician LYNDA SHULTZ Attending Clinician Unavailable [facility] Attending Clinician Unavailable JV RANDHAWA Attending Clinician Unavailable Mick Jaime MD Attending Clinician PAULINA CASANOVA Attending Clinician Unavailable Paulina Casanova MD Attending Clinician Mariangel Vogel RN Attending Clinician Unavailable Gee Baptiste MD Attending Clinician BRADEN DEAN Attending Clinician Unavailable Yolande CARLOS, [facility] Attending Clinician Aparna Rowley Attending Clinician [email or web address] Admitting Clinician Unavailable Sandoval Agudelo Admitting Clinician Unavailable UNDEFINED Admitting Clinician Unavailable MATHEW VIERA Admitting Clinician Unavailable MD RONNIE [facility] KATHERYN Admitting Clinician Unavailable MARIIA CURRAN Admitting Clinician Unavailable BEBA_Oral_Cody Admitting Clinician Unavailable LISA MURILLO Admitting Clinician Unavailable ANDERSON ALATORRE Admitting Clinician Unavailable Payers Payer Name Policy Type Policy Number Effective Date Expiration Date Ta barbosa [facility] [id number] [facility] PLUS [id number] 2020 00:00:00 [facility] COMMUNITY PLAN [id number] DH - DUAL (MEDICARE REPLACEMENT HMO) Problems Condition Condition Condition Status Onset Resolution Last Treating Co mments Source Name Details Category Date Date Treatment Clinician Date Intractabl Intractabl Disease Active M ethodi e pain e pain 10-11 st 00:00: Hospita 00 l Hip pain, Hip pain, Disease Active Met hodi acute, acute, 6[address] [facility] right right 00:00: Hospita 00 l [...] Known DA Active U [facility] Allergie 10-16 [place] [facility] 00:00: [facility] [address] NO KNOWN Drug Active Univers ALLERGIE Class ity of S [facility] Family History Family Member Diagnosis Comments Start Date Stop Date Source Natural father Heart [facility] Natural mother Diabetes [facility] Natural mother Heart [facility] Natural mother Hypertension [facility] Other GI [facility] Social History Social Habit Start Date Stop Date Quantity Comments Source History of tobacco [facility]igarette [facility] History of Social 2022-10-12 2022-10-[address] function 00:00:00 00:00:00 Hospital Cigarettes smoked 2022-10-12 2022-10-[address] current (pack per 00:00:00 00:00:00 Hospita l day) - Reported Exposure to 2022-07-18 2022-07-28 Not sure University SARS-CoV-2 (event) 00:00:00 08:24:00 [facility] Alcohol intake 2022-07-28 2022-07-28 Current University of 00:00:00 00:00:00 non-drinker of [facility] alcohol Branch (finding) Tobacco use and 2022-04-25 2022-04-25 Smokeless Universit y of exposure 00:00:00 00:00:00 tobacco non-user [facility] dical [place] Cigarette 2022-04-25 2022-04-25 University of pack-years 00:00:00 00:00:00 [facility] Sex Assigned At [birth year] [facility] 00:00:00 00:00:00 Hospital Smoking Status Start Date Stop Date Source Tobacco smoking consumption unknown [facility] Smokes tobacco daily 2022-10-12 [facility] Ordered Filled Start Stop Current Ordering Indication Dosage Frequency Signature Comments Components Source Medication Medication Date Date Medication? Clinician (SIG) Name Name levothyroxi Yes 150ug QD Take 1 Met hodi ne 6-[address] (SYNTHROID) 13:19: (150 mcg Ho spita 150 mcg 04 total) by l tablet mouth daily. clonAZEPAM Yes 2mg Q.[id number] Take 2 Methodi (KlonoPIN) 6-30 [id number] tablets (2 st 1 MG tablet 13:19: 3D mg total) H ospita 04 by mouth 3 l (three) times a day. SUMAtriptan Yes 25mg Take 1 Meth aly (IMITREX) 6-30 tablet (25 st 25 MG 13:19: mg total) Hospita tablet 04 by mouth l as needed for migraine. May repeat in 2 hours if unresolved . Do not exceed 200 mg in 24 hours. lisinopriL Yes 30mg QD Take 1.5 Met hodi (PRINIVIL) 6-[address] 20 mg 13:19: (30 mg Hospita tablet 04 total) by l mouth daily. oxyCODone-a [place] [id number] 1{tbl} Q4H Take 1 M ethodi cetaminophe 6-[address] n 13:19: mouth Hospita (PERCOCET) 04 every 4 l 10-325 mg (four) per tablet hours as needed for moderate pain .acute pain. Max Daily Amount: 6 tablets pregabalin 2023-0 Yes 150mg Q.[id number] Take 1 Methodi (LYRICA) 6-[id number] 150 MG 13:19: 3D (150 mg Hospita capsule 04 total) by l mouth 3 (three) times a day. levothyroxi 2023-0 Yes 150ug QD Take 1 Met hodi ne 6-[address] (SYNTHROID) 13:19: (150 mcg Ho spita 150 mcg 04 total) by l tablet mouth daily. clonAZEPAM 3-0 Yes 2mg Q.[id number] Take 2 Methodi (KlonoPIN) 6-30 [id number] tablets (2 st 1 MG tablet 13:19: 3D mg total) H ospita 04 by mouth 3 l (three) times a day. SUMAtriptan 3-0 Yes 25mg Take 1 Meth aly (IMITREX) 6-30 tablet (25 st 25 MG 13:19: mg total) Hospita tablet 04 by mouth l as needed for migraine. May repeat in 2 hours if unresolved . Do not exceed 200 mg in 24 hours. lisinopriL 3-0 Yes 30mg QD Take 1.5 Met hodi (PRINIVIL) 6-[address] 20 mg 13:19: (30 mg Hospita tablet 04 total) by l mouth daily. oxyCODone-a 3-0 Yes [id number] 1{tbl} Q4H Take 1 M ethodi cetaminophe 6-[address] n 13:19: mouth Hospita (PERCOCET) 04 every 4 l 10-325 mg (four) per tablet hours as needed for moderate pain .acute pain. Max Daily Amount: 6 tablets pregabalin 2023-0 Yes 150mg Q.[id number] Take 1 Methodi (LYRICA) 6-[id number] 150 MG 13:19: 3D (150 mg Hospita capsule 04 total) by l mouth 3 (three) times a day. levothyroxi 2023-0 Yes 150ug QD Take 1 Met hodi ne 6-[address] (SYNTHROID) 13:19: (150 mcg Ho spita 150 mcg 04 total) by l tablet mouth daily. clonAZEPAM 2023-0 Yes 2mg Q.[id number] Take 2 Methodi (KlonoPIN) 6-30 [id number] tablets (2 st 1 MG tablet 13:19: 3D mg total) H ospita 04 by mouth 3 l (three) times a day. SUMAtriptan 2023-0 Yes 25mg Take 1 Meth aly (IMITREX) 6-30 tablet (25 st 25 MG 13:19: mg total) Hospita tablet 04 by mouth l as needed for migraine. May repeat in 2 hours if unresolved . Do not exceed 200 mg in 24 hours. lisinopriL 2023-0 Yes 30mg QD Take 1.5 Met hodi (PRINIVIL) 6-[address] 20 mg 13:19: (30 mg Hospita tablet 04 total) by l mouth daily. oxyCODone-a 2023-0 Yes [id number] 1{tbl} Q4H Take 1 M ethodi cetaminophe 6-[address] n 13:19: mouth Hospita (PERCOCET) 04 every 4 l 10-325 mg (four) per tablet hours as needed for moderate pain .acute pain. Max Daily Amount: 6 tablets pregabalin 2023-0 Yes 150mg Q.[id number] Take 1 Methodi (LYRICA) 6-[id number] 150 MG 13:19: 3D (150 mg Hospita capsule 04 total) by l mouth 3 (three) times a day. levothyroxi 2023-0 Yes 150ug QD Take 1 Met hodi ne 6-[address] (SYNTHROID) 13:19: (150 mcg Ho spita 150 mcg 04 total) by l tablet mouth daily. clonAZEPAM 2023-0 Yes 2mg Q.[id number] Take 2 Methodi (KlonoPIN) 6-30 [id number] tablets (2 st 1 MG tablet 13:19: 3D mg total) H ospita 04 by mouth 3 l (three) times a day. SUMAtriptan 2023-0 Yes 25mg Take 1 Meth aly (IMITREX) [...] by l mouth daily. oxyCODone-a 2022-0 Yes [id number] 1{tbl} Q4H Take 1 M ethodi cetaminophe 6-[address] n 13:19: mouth Hospita (PERCOCET) 04 every 4 l 10-325 mg (four) per tablet hours as needed for moderate pain .acute pain. Max Daily Amount: 6 tablets pregabalin 2022-0 Yes 150mg Q.[id number] Take 1 Methodi (LYRICA) 6-[id number] 150 MG 13:19: 3D (150 mg Hospita capsule 04 total) by l mouth 3 (three) times a day. ondansetron 2022-0 3- No 4mg Q8H Take 1 Met hodi ODT 4-14 04-20 tablet (4 st (ZOFRAN-ODT 00:00: 04:59 mg total) Hospita ) 4 MG 00 :00 by mouth l disintegrat every 8 ing tablet (eight) hours as needed for nausea or vomiting for up to 5 days. acetaminoph 2022-0 2022- [place] [id number] 1{tbl} Q6H Take 1-2 Methodi en-codeine 4-14 [...] to 5 days. acetaminoph 2022-0 2022- [place] [id number] 1{tbl} Q6H Take 1-2 Methodi en-codeine 4-14 [...] to 5 days. acetaminoph 2022-0 2022- [place] [id number] 1{tbl} Q6H Take 1-2 Methodi en-codeine 4-14 [...] to 5 days. acetaminoph 2022-0 2022- [place] [id number] 1{tbl} Q6H Take 1-2 Methodi en-codeine 4-14 [...] to 5 days. acetaminoph 2022-0 2022- [place] [id number] 1{tbl} Q6H Take 1-2 Methodi en-codeine - 04-[address] (TYLENOL 00:00: 04:59 mouth Hospita WITH 00 :00 every 6 l CODEINE #3) (six) 300-30 mg hours as per tablet needed for moderate pain for up to 5 days .acute pain. ondansetron 3-0 2022- No 4mg Q8H Take 1 Met hodi ODT - 04-20 tablet (4 st (ZOFRAN-ODT 00:00: 04:59 mg total) Hospita ) 4 MG 00 :00 by mouth l disintegrat every 8 ing tablet (eight) hours as needed for nausea or vomiting for up to 5 days. acetaminoph 2022- [place] [id number] 1{tbl} Q6H Take 1-2 Methodi en-codeine 4- 04-[address] (TYLENOL 00:00: 04:59 mouth Hospita WITH 00 :00 every 6 l CODEINE #3) (six) 300-30 mg hours as per tablet needed for moderate pain for up to 5 days .acute pain. ondansetron 2022-0 2022- No 4mg Q8H Take 1 Met hodi ODT -28 07-20 tablet (4 st (ZOFRAN-ODT 00:00: 04:59 mg total) Hospita ) 4 MG 00 :00 by mouth l disintegrat every 8 ing tablet (eight) hours as needed for nausea or vomiting for up to 5 [place] [id number] 1{tbl} Q6H Take 1-2 Methodi en-codeine 07-28-[address] (TYLENOL 00:00: 04:59 mouth Hospita WITH 00 :00 every 6 l CODEINE #3) (six) 300-30 mg hours as per tablet needed for moderate pain for up to 5 days .acute pain. keTOROlac 2022-0 2022- No 10mg Q6H Take 1 Metho di (TORadol) 07-2819 tablet (10 st 10 mg 00:00: 04:59 [...] for up to 4 days. keTOROlac 2022-0 3- No 10mg Q6H Take 1 Metho di (TORadol) 07-28- tablet (10 st 10 mg 00:00: 04:59 mg total) Hospit a tablet 00 :00 by mouth l every 6 (six) hours as needed for moderate pain for up to 4 days. keTOROlac 3-0 3- No 10mg Q6H Take 1 Metho di (TORadol) 07-28 tablet (10 st 10 mg 00:00: 04:59 mg total) Hospit a tablet 00 :00 by mouth l every 6 (six) hours as needed for moderate pain for up to 4 days. keTOROlac 3-0 3- No 10mg Q6H Take 1 Metho di (TORadol) 07-28 tablet (10 st 10 mg 00:00: 04:59 mg total) Hospit a tablet 00 :00 by mouth l every 6 (six) hours as needed for moderate pain for up to 4 days. keTOROlac 3-0 3- No 10mg Q6H Take 1 Metho di (TORadol) 07-28- tablet (10 st 10 mg 00:00: 04:59 mg total) Hospit a tablet 00 :00 by mouth l every 6 (six) hours as needed for moderate pain for up to 4 days. FENTanyl PF 2022-2022- No 50ug 50 mcg, Un maria isabel [...] On Medi selin mg 07/22/22 Branch at 204, NUZHAT NaCl 0.9% 2022- No 1000mL at 999 Uni vers (NS) bolus 07-23 mL/hr, ity of infusion 01:45: 05:12 1,000 mL, Dany as 1,000 mL 00 :00 IV Medical Infusion, Branch ONCE, 1 dose, On 07/22/22 at 2044, NUZHAT USE 1 UNIT No DOSE IN -18 NEBULIZER 00:00: EVERY 4 TO 00 6 HOURS NEEDED. BUDESONIDE/ 2022-0 No FORMOTEROL -18 FUMARATE 00:00: DIHY DRATE 00 160-4.5 MCG/ACT AERO amLODIPine 0 Yes [id number] 5mg Take 5 mg Univers 5 mg tablet 1-10 by mouth ity of 14:05: in the [place] [address] morning. Medical Branch amLODIPine 2022-0 Yes [id number] 5mg Take 5 mg Univers 5 mg tablet 1-10 by mouth ity of 14:05: in the [address] Medical Branch amLODIPine 2022-0 Yes [id number] 5mg Take 5 mg Univers 5 mg tablet 1-10 by mouth ity of 14:05: in the [place] [address] morning. Medical Branch amLODIPine 2022-0 Yes [id number] 5mg Take 5 mg Univers 5 mg tablet 1-10 by mouth ity of 14:05: in the [place] [address] morning. Medical Branch amLODIPine 2022-0 Yes [id number] 5mg Take 5 mg Univers 5 mg tablet 1-10 by mouth ity of 14:05: in the [place] [address] morning. Medical Branch amLODIPine 2022-0 Yes [id number] 5mg Take 5 mg Univers 5 mg tablet 1-10 by mouth ity of 14:05: in the [place] [address] morning. Medical Branch amLODIPine 2022-0 Yes [id number] 5mg Take 5 mg Univers 5 mg tablet 1-10 by mouth ity of 14:05: in the [place] [address] morning. Medical Branch amLODIPine 3-0 Yes [id number] 5mg Take 5 mg Univers 5 mg tablet 1-10 by mouth ity of 14:05: in the [place] [address] morning. Medical Branch amLODIPine 3-0 Yes [id number] 5mg Take 5 mg Univers 5 mg tablet 1-10 by mouth ity of 14:05: in the [place] [address] morning. Medical Branch amLODIPine 3-0 Yes [id number] 5mg Take 5 mg Univers 5 mg tablet 1-10 by mouth ity of 14:05: in the [place] [address] morning. Medical Branch amLODIPine 3-0 Yes [id number] 5mg Take 5 mg Univers 5 mg tablet 1-10 by mouth ity of 14:05: in the [place] [address] morning. Medical Branch amLODIPine 3-0 Yes [id number] 5mg Take 5 mg Univers 5 mg tablet 1-10 by mouth ity of 14:05: in the [place] [address] morning. Medical Branch amLODIPine 3-0 Yes [id number] 5mg Take 5 mg Univers 5 mg tablet 1-10 by mouth ity of 14:05: in the [place] [address] morning. Medical Branch amLODIPine 2022-0 Yes [id number] 5mg Take 5 mg Univers 5 mg tablet 1-10 by mouth ity of 14:05: in the [place] [address] morning. Medical Branch amLODIPine 3-0 Yes [id number] 5mg Take 5 mg Univers 5 mg tablet 1-10 by mouth ity of 14:05: in the [place] [address] morning. Medical Branch amLODIPine 3-0 Yes [id number] 5mg Take 5 mg Univers 5 mg tablet 1-10 by mouth ity of 14:05: in the [place] [address] morning. Medical Branch amLODIPine 3-0 Yes [id number] 5mg Take 5 mg Univers 5 mg tablet 1-10 by mouth ity of 14:05: in the [place] [address] morning. Medical Branch amLODIPine 3-0 Yes [id number] 5mg Take 5 mg Univers 5 mg tablet 1-10 by mouth ity of 14:05: in the [place] [address] morning. Medical Branch amLODIPine 3-0 Yes [id number] 5mg Take 5 mg Univers 5 mg tablet 1-10 by mouth ity of 14:05: in the [place] [address] morning. Medical Branch amLODIPine 3-0 Yes [id number] 5mg Take 5 mg Univers 5 mg tablet 1-10 by mouth ity of 14:05: in the [place] [address] morning. Medical Branch amLODIPine 3-0 Yes [id number] 5mg Take 5 mg Univers 5 mg tablet 1-10 by mouth ity of 14:05: in the [place] [address] morning. Medical Branch amLODIPine 3-0 Yes [id number] 5mg Take 5 mg Univers 5 mg tablet 1-10 by mouth ity of 14:05: in the [place] [address] morning. Medical Branch amLODIPine 3-0 Yes [id number] 5mg Take 5 mg Univers 5 mg tablet 1-10 by mouth ity of 14:05: in the [place] [address] morning. Medical Branch amLODIPine 3-0 Yes [id number] 5mg Take 5 mg Univers 5 mg tablet 1-10 by mouth ity of 14:05: in the [place] [address] morning. Medical Branch amLODIPine 3-0 Yes [id number] 5mg Take 5 mg Univers 5 mg tablet 1-10 by mouth ity of 14:05: in the [place] [address] morning. Medical Branch amLODIPine 2022-0 Yes [id number] 5mg Take 5 mg Univers 5 mg tablet 1-10 by mouth ity of 14:05: in the [place] [address] morning. Medical Branch amLODIPine 2022-0 Yes [id number] 5mg Take 5 mg Univers 5 mg tablet 1-10 by mouth ity of 14:05: in the [place] [address] morning. Medical Branch omeprazole 3-0 Yes [id number] 40mg Take 40 mg Univers 40 mg 1-10 by mouth ity of capsule 13:52: in the [place] [address] morning. Medical Branch omeprazole 3-0 Yes [id number] 40mg Take 40 mg Univers 40 mg 1-10 by mouth ity of capsule 13:52: in the [place] [address] morning. Medical Branch omeprazole 2023-0 Yes [id number] 40mg Take 40 mg Univers 40 mg 1-10 by mouth ity of capsule 13:52: in the [place] [address] morning. Medical Branch omeprazole 2023-0 Yes [id number] 40mg Take 40 mg Univers 40 mg 1-10 by mouth ity of capsule 13:52: in the [place] [address] morning. Medical Branch omeprazole 2023-0 Yes [id number] 40mg Take 40 mg Univers 40 mg 1-10 by mouth ity of capsule 13:52: in the [place] [address] morning. Medical Branch omeprazole 2023-0 Yes [id number] 40mg Take 40 mg Univers 40 mg 1-10 by mouth ity of capsule 13:52: in the [place] morning. Medical Branch omeprazole 2023-0 Yes [id number] 40mg Take 40 mg Univers 40 mg 1-10 by mouth ity of capsule 13:52: in the [place] 26 morning. Medical Branch omeprazole 2023-0 Yes [id number] 40mg Take 40 mg Univers 40 mg 1-10 by mouth ity of capsule 13:52: in the [place] 26 morning. Medical Branch omeprazole 2023-0 Yes [id number] 40mg Take 40 mg Univers 40 mg 1-10 by mouth ity of capsule 13:52: in the [place] 26 morning. Medical Branch omeprazole 2023-0 Yes [id number] 40mg Take 40 mg Univers 40 mg 1-10 by mouth ity of capsule 13:52: in the [place] 26 morning. Medical Branch omeprazole 2023-0 Yes [id number] 40mg Take 40 mg Univers 40 mg 1-10 by mouth ity of capsule 13:52: in the [place] 26 morning. Medical Branch omeprazole 2023-0 Yes [id number] 40mg Take 40 mg Univers 40 mg 1-10 by mouth ity of capsule 13:52: in the [place] 26 morning. Medical Branch omeprazole 2023-0 Yes [id number] 40mg Take 40 mg Univers 40 mg 1-10 by mouth ity of capsule 13:52: in the [place] 26 morning. Medical Branch omeprazole 2023-0 Yes [id number] 40mg Take 40 mg Univers 40 mg 1-10 by mouth ity of capsule 13:52: in the [place] 26 morning. Medical Branch omeprazole 2023-0 Yes [id number] 40mg Take 40 mg Univers 40 mg 1-10 by mouth ity of capsule 13:52: in the [place] 26 morning. Medical Branch omeprazole 2023-0 Yes [id number] 40mg Take 40 mg Univers 40 mg 1-10 by mouth ity of capsule 13:52: in the [place] 26 morning. Medical Branch omeprazole 2023-0 Yes [id number] 40mg Take 40 mg Univers 40 mg 1-10 by mouth ity of capsule 13:52: in the [place] 26 morning. Medical Branch omeprazole 2023-0 Yes [id number] 40mg Take 40 mg Univers 40 mg 1-10 by mouth ity of capsule 13:52: in the [place] 26 morning. Medical Branch omeprazole 2023-0 Yes [id number] 40mg Take 40 mg Univers 40 mg 1-10 by mouth ity of capsule 13:52: in the [place] [address] morning. Medical Branch omeprazole 2023-0 Yes [id number] 40mg Take 40 mg Univers 40 mg 1-10 by mouth ity of capsule 13:52: in the [place] [address] morning. Medical Branch omeprazole 2023-0 Yes [id number] 40mg Take 40 mg Univers 40 mg 1-10 by mouth ity of capsule 13:52: in the [place] [address] morning. Medical Branch omeprazole 2023-0 Yes [id number] 40mg Take 40 mg Univers 40 mg 1-10 by mouth ity of capsule 13:52: in the [place] [address] morning. Medical Branch omeprazole 2023-0 Yes [id number] 40mg Take 40 mg Univers 40 mg 1-10 by mouth ity of capsule 13:52: in the [place] [address] morning. Medical Branch omeprazole 2023-0 Yes [id number] 40mg Take 40 mg Univers 40 mg 1-10 by mouth ity of capsule 13:52: in the [place] [address] morning. Medical Branch omeprazole 2023-0 Yes [id number] 40mg Take 40 mg Univers 40 mg 1-10 by mouth ity of capsule 13:52: in the [place] [address] morning. Medical Branch omeprazole 2023-0 Yes [id number] 40mg Take 40 mg Univers 40 mg 1-10 by mouth ity of capsule 13:52: in the [place] [address] morning. Medical Branch omeprazole 2023-0 Yes [id number] 40mg Take 40 mg Univers 40 mg 1-10 by mouth ity of capsule 13:52: in the [place] [address] morning. Medical Branch clonazePAM 2023-0 Yes [id number] 1mg Take 1 mg Univers 1 mg tablet 1-10 by mouth 3 it y of 13:51: (three) [place] 23 times Medical daily as Branch needed. clonazePAM 2023-0 Yes [id number] 1mg Take 1 mg Univers 1 mg tablet 1-10 by mouth 3 it y of 13:51: (three) [place] 23 times Medical daily as Branch needed. clonazePAM 2023-0 Yes [id number] 1mg Take 1 mg Univers 1 mg tablet 1-10 by mouth 3 it y of 13:51: (three) [place] 23 times Medical daily as Branch needed. clonazePAM 2023-0 Yes [id number] 1mg Take 1 mg Univers 1 mg tablet 1-10 by mouth 3 it y of 13:51: (three) [place] 23 times Medical daily as Branch needed. clonazePAM 2023-0 Yes [id number] 1mg Take 1 mg Univers 1 mg tablet 1-10 by mouth 3 it y of 13:51: (three) [place] 23 times Medical daily as Branch needed. clonazePAM 2023-0 Yes [id number] 1mg Take 1 mg Univers 1 mg tablet 1-10 by mouth 3 it y of 13:51: (three) [place] 23 times Medical daily as Branch needed. clonazePAM 2023-0 Yes [id number] 1mg Take 1 mg Univers 1 mg tablet 1-10 by mouth 3 it y of 13:51: (three) [place] 23 times Medical daily as Branch needed. clonazePAM 2023-0 Yes [id number] 1mg Take 1 mg Univers 1 mg tablet 1-10 by mouth 3 it y of 13:51: (three) [place] 23 times Medical daily as Branch needed. clonazePAM 2023-0 Yes [id number] 1mg Take 1 mg Univers 1 mg tablet 1-10 by mouth 3 it y of 13:51: (three) [place] 23 times Medical daily as Branch needed. clonazePAM 3-0 Yes [id number] 1mg Take 1 mg Univers 1 mg tablet 1-10 by mouth 3 it y of 13:51: (three) [place] 23 times Medical daily as Branch needed. clonazePAM 3-0 Yes [id number] 1mg Take 1 mg Univers 1 mg tablet 1-10 by mouth 3 it y of 13:51: (three) [place] 23 times Medical daily as Branch needed. clonazePAM 2023-0 Yes [id number] 1mg Take 1 mg Univers 1 mg tablet 1-10 by mouth 3 it y of 13:51: (three) [place] 23 times Medical daily as Branch needed. clonazePAM 2023-0 Yes [id number] 1mg Take 1 mg Univers 1 mg tablet 1-10 by mouth 3 it y of 13:51: (three) [place] 23 times Medical daily as Branch needed. clonazePAM 2023-0 Yes [id number] 1mg Take 1 mg Univers 1 mg tablet 1-10 by mouth 3 it y of 13:51: (three) [place] 23 times Medical daily as Branch needed. clonazePAM 2023-0 Yes [id number] 1mg Take 1 mg Univers 1 mg tablet 1-10 by mouth 3 it y of 13:51: (three) [place] 23 times Medical daily as Branch needed. clonazePAM 2023-0 Yes [id number] 1mg Take 1 mg Univers 1 mg tablet 1-10 by mouth 3 it y of 13:51: (three) [place] 23 times Medical daily as Branch needed. clonazePAM 2023-0 Yes [id number] 1mg Take 1 mg Univers 1 mg tablet 1-10 by mouth 3 it y of 13:51: (three) [place] 23 times Medical daily as Branch needed. clonazePAM 2023-0 Yes [id number] 1mg Take 1 mg Univers 1 mg tablet 1-10 by mouth 3 it y of 13:51: (three) [place] 23 times Medical daily as Branch needed. clonazePAM 2023-0 Yes [id number] 1mg Take 1 mg Univers 1 mg tablet 1-10 by mouth 3 it y of 13:51: (three) [place] 23 times Medical daily as Branch needed. clonazePAM 2023-0 Yes [id number] 1mg Take 1 mg Univers 1 mg tablet 1-10 by mouth 3 it y of 13:51: (three) [place] 23 times Medical daily as Branch needed. clonazePAM 2023-0 Yes [id number] 1mg Take 1 mg Univers 1 mg tablet 1-10 by mouth 3 it y of 13:51: (three) [place] 23 times Medical daily as Branch needed. clonazePAM 2023-0 Yes [id number] 1mg Take 1 mg Univers 1 mg tablet 1-10 by mouth 3 it y of 13:51: (three) [place] 23 times Medical daily as Branch needed. clonazePAM 2023-0 Yes [id number] 1mg Take 1 mg Univers 1 mg tablet 1-10 by mouth 3 it y of 13:51: (three) [place] 23 times Medical daily as Branch needed. clonazePAM 2023-0 Yes [id number] 1mg Take 1 mg Univers 1 mg tablet 1-10 by mouth 3 it y of 13:51: (three) [place] 23 times Medical daily as Branch needed. clonazePAM 2023-0 Yes [id number] 1mg Take 1 mg [facility] 1 mg tablet 1-10 by mouth 3 it y of 13:51: (three) [place] 23 times Medical daily as Branch needed. clonazePAM 2023-0 Yes [id number] 1mg Take 1 mg [facility] 1 mg tablet 1-10 by mouth 3 it y of 13:51: (three) [place] 23 times Medical daily as Branch needed. clonazePAM 3-0 Yes [id number] 1mg Take 1 mg [facility] 1 mg tablet 1-10 by mouth 3 it y of 13:51: (three) [place] 23 times Medical daily as Branch needed. lithium 2023-0 Yes [id number] 150mg Take 0.5 [facility] carbonate 1-10 tablets by ity of 300 mg 00:00: mouth in [place] tablet 00 the Medical morning. Branch QUEtiapine 2022-0 Yes [id number] 50mg Take 1 [facility] 50 mg 1-10 tablet by ity of tablet 00:00: mouth at [place] 00 bedtime as Medical needed for Branch Insomnia. gabapentin 2022-0 Yes [id number] 600mg Take 2 [facility] 300 mg 1-10 9102 capsules ity of capsule 00:00: by mouth [place] 00 in the Medical morning Branch and 2 capsules at noon and 2 capsules in the evening. hydrOXYzine 3-0 Yes [id number] 25mg Take 1 [facility] 25 mg 1-10 tablet by ity of tablet 00:00: mouth [place] 00 every 6 Medical (six) Branch hours as needed for Anxiety. lithium 3-0 Yes [id number] 150mg Take 0.5 [facility] carbonate 1-10 tablets by ity of 300 mg 00:00: mouth in [place] tablet 00 the Medical morning. Branch QUEtiapine 2022-0 Yes [id number] 50mg Take 1 [facility] 50 mg 1-10 tablet by ity of tablet 00:00: mouth at [place] 00 bedtime as Medical needed for Branch Insomnia. gabapentin 3-0 Yes [id number] 600mg Take 2 [facility] 300 mg 1-10 9102 capsules ity of capsule 00:00: by mouth [place] 00 in the Medical morning Branch and 2 capsules at noon and 2 capsules in the evening. hydrOXYzine 2023-0 Yes [id number] 25mg Take 1 [facility] 25 mg 1-10 tablet by ity of tablet 00:00: mouth [place] 00 every 6 Medical (six) Branch hours as needed for Anxiety. lithium 2023-0 Yes [id number] 150mg Take 0.5 [facility] carbonate 1-10 tablets by ity of 300 mg 00:00: mouth in [place] tablet 00 the Medical morning. Branch QUEtiapine 3-0 Yes [id number] 50mg Take 1 [facility] 50 mg 1-10 tablet by ity of tablet 00:00: mouth at [place] 00 bedtime as Medical needed for Branch Insomnia. gabapentin 2023-0 Yes [id number] 600mg Take 2 [facility] 300 mg 1-10 9102 capsules ity of capsule 00:00: by mouth [place] 00 in the Medical morning Branch and 2 capsules at noon and 2 capsules in the evening. hydrOXYzine 2023-0 Yes [id number] 25mg Take 1 [facility] 25 mg 1-10 tablet by ity of tablet 00:00: mouth [place] 00 every 6 Medical (six) Branch hours as needed for Anxiety. lithium 2023-0 Yes [id number] 150mg Take 0.5 [facility] carbonate 1-10 tablets by ity of 300 mg 00:00: mouth in [place] tablet 00 the Medical morning. Branch QUEtiapine 2023-0 Yes [id number] 50mg Take 1 [facility] 50 mg 1-10 tablet by ity of tablet 00:00: mouth at [place] 00 bedtime as Medical needed for Branch Insomnia. gabapentin 2023-0 Yes [id number] 600mg Take 2 [facility] 300 mg 1-10 9102 capsules ity of capsule 00:00: by mouth [place] 00 in the Medical morning Branch and 2 capsules at noon and 2 capsules in the evening. hydrOXYzine 2023-0 Yes [id number] 25mg Take 1 [facility] 25 mg 1-10 tablet by ity of tablet 00:00: mouth [place] 00 every 6 Medical (six) Branch hours as needed for Anxiety. lithium 2023-0 Yes [id number] 150mg Take 0.5 [facility] carbonate 1-10 tablets by ity of 300 mg 00:00: mouth in [place] tablet 00 the Medical morning. Branch QUEtiapine 2023-0 Yes [id number] 50mg Take 1 [facility] 50 mg 1-10 tablet by ity of tablet 00:00: mouth at [place] 00 bedtime as Medical needed for Branch Insomnia. gabapentin 2023-0 Yes [id number] 600mg Take 2 [facility] 300 mg 1-10 9102 capsules ity of capsule 00:00: by mouth [place] 00 in the Medical morning Branch and 2 capsules at noon and 2 capsules in the evening. hydrOXYzine 2023-0 Yes [id number] 25mg Take 1 [facility] 25 mg 1-10 tablet by ity of tablet 00:00: mouth [place] 00 every 6 Medical (six) Branch hours as needed for Anxiety. lithium 2023-0 Yes [id number] 150mg Take 0.5 [facility] carbonate 1-10 tablets by ity of 300 mg 00:00: mouth in [place] tablet 00 the Medical morning. Branch QUEtiapine 3-0 Yes [id number] 50mg Take 1 [facility] 50 mg 1-10 tablet by ity of tablet 00:00: mouth at [place] 00 bedtime as Medical needed for Branch Insomnia. gabapentin 3-0 Yes [id number] 600mg Take 2 [facility] 300 mg 1-10 9102 capsules ity of capsule 00:00: by mouth [place] 00 in the Medical morning Branch and 2 capsules at noon and 2 capsules in the evening. hydrOXYzine 2023-0 Yes [id number] 25mg Take 1 [facility] 25 mg 1-10 tablet by ity of tablet 00:00: mouth [place] 00 every 6 Medical (six) Branch hours as needed for Anxiety. lithium 3-0 Yes [id number] 150mg Take 0.5 [facility] carbonate 1-10 tablets by ity of 300 mg 00:00: mouth in [place] tablet 00 the Medical morning. Branch QUEtiapine 2022-0 Yes [id number] 50mg Take 1 [facility] 50 mg 1-10 tablet by ity of tablet 00:00: mouth at [place] 00 bedtime as Medical needed for Branch Insomnia. gabapentin 3-0 Yes [id number] 600mg Take 2 [facility] 300 mg 1-10 9102 capsules ity of capsule 00:00: by mouth [place] 00 in the Medical morning Branch and 2 capsules at noon and 2 capsules in the evening. hydrOXYzine 2023-0 Yes [id number] 25mg Take 1 [facility] 25 mg 1-10 tablet by ity of tablet 00:00: mouth [place] 00 every 6 Medical (six) Branch hours as needed for Anxiety. lithium 3-0 Yes [id number] 150mg Take 0.5 [facility] carbonate 1-10 tablets by ity of 300 mg 00:00: mouth in [place] tablet 00 the Medical morning. Branch QUEtiapine 3-0 Yes [id number] 50mg Take 1 [facility] 50 mg 1-10 tablet by ity of tablet 00:00: mouth at [place] 00 bedtime as Medical needed for Branch Insomnia. gabapentin 3-0 Yes [id number] 600mg Take 2 [facility] 300 mg 1-10 9102 capsules ity of capsule 00:00: by mouth [place] 00 in the Medical morning Branch and 2 capsules at noon and 2 capsules in the evening. hydrOXYzine 2023-0 Yes [id number] 25mg Take 1 [facility] 25 mg 1-10 tablet by ity of tablet 00:00: mouth [place] 00 every 6 Medical (six) Branch hours as needed for Anxiety. lithium 3-0 Yes [id number] 150mg Take 0.5 [facility] carbonate 1-10 tablets by ity of 300 mg 00:00: mouth in [place] tablet 00 the Medical morning. Branch QUEtiapine 2022-0 Yes [id number] 50mg Take 1 [facility] 50 mg 1-10 tablet by ity of tablet 00:00: mouth at [place] 00 bedtime as Medical needed for Branch Insomnia. gabapentin 2022-0 Yes [id number] 600mg Take 2 [facility] 300 mg 1-10 9102 capsules ity of capsule 00:00: by mouth [place] 00 in the Medical morning Branch and 2 capsules at noon and 2 capsules in the evening. hydrOXYzine 2022-0 Yes [id number] 25mg Take 1 [facility] 25 mg 1-10 tablet by ity of tablet 00:00: mouth [place] 00 every 6 Medical (six) Branch hours as needed for Anxiety. lithium 3-0 Yes [id number] 150mg Take 0.5 [facility] carbonate 1-10 tablets by ity of 300 mg 00:00: mouth in [place] tablet 00 the Medical morning. Branch QUEtiapine 2022-0 Yes [id number] 50mg Take 1 [facility] 50 mg 1-10 tablet by ity of tablet 00:00: mouth at [place] 00 bedtime as Medical needed for Branch Insomnia. gabapentin 3-0 Yes [id number] 600mg Take 2 [facility] 300 mg 1-10 9102 capsules ity of capsule 00:00: by mouth [place] 00 in the Medical morning Branch and 2 capsules at noon and 2 capsules in the evening. hydrOXYzine 3-0 Yes [id number] 25mg Take 1 [facility] 25 mg 1-10 tablet by ity of tablet 00:00: mouth [place] 00 every 6 Medical (six) Branch hours as needed for Anxiety. lithium 2023-0 Yes [id number] 150mg Take 0.5 [facility] carbonate 1-10 tablets by ity of 300 mg 00:00: mouth in [place] tablet 00 the Medical morning. Branch QUEtiapine 3-0 Yes [id number] 50mg Take 1 [facility] 50 mg 1-10 tablet by ity of tablet 00:00: mouth at [place] 00 bedtime as Medical needed for Branch Insomnia. gabapentin 2023-0 Yes [id number] 600mg Take 2 [facility] 300 mg 1-10 9102 capsules ity of capsule 00:00: by mouth [place] 00 in the Medical morning Branch and 2 capsules at noon and 2 capsules in the evening. hydrOXYzine 2023-0 Yes [id number] 25mg Take 1 [facility] 25 mg 1-10 tablet by ity of tablet 00:00: mouth [place] 00 every 6 Medical (six) Branch hours as needed for Anxiety. lithium 2023-0 Yes [id number] 150mg Take 0.5 [facility] carbonate 1-10 tablets by ity of 300 mg 00:00: mouth in [place] tablet 00 the Medical morning. Branch QUEtiapine 2023-0 Yes [id number] 50mg Take 1 [facility] 50 mg 1-10 tablet by ity of tablet 00:00: mouth at [place] 00 bedtime as Medical needed for Branch Insomnia. gabapentin 3-0 Yes [id number] 600mg Take 2 [facility] 300 mg 1-10 9102 capsules ity of capsule 00:00: by mouth [place] 00 in the Medical morning Branch and 2 capsules at noon and 2 capsules in the evening. hydrOXYzine 2023-0 Yes [id number] 25mg Take 1 [facility] 25 mg 1-10 tablet by ity of tablet 00:00: mouth [place] 00 every 6 Medical (six) Branch hours as needed for Anxiety. lithium 2023-0 Yes [id number] 150mg Take 0.5 [facility] carbonate 1-10 tablets by ity of 300 mg 00:00: mouth in [place] tablet 00 the Medical morning. Branch QUEtiapine 2023-0 Yes [id number] 50mg Take 1 [facility] 50 mg 1-10 tablet by ity of tablet 00:00: mouth at [place] 00 bedtime as Medical needed for Branch Insomnia. gabapentin 2023-0 Yes [id number] 600mg Take 2 [facility] 300 mg 1-10 9102 capsules ity of capsule 00:00: by mouth [place] 00 in the Medical morning Branch and 2 capsules at noon and 2 capsules in the evening. hydrOXYzine 2023-0 Yes [id number] 25mg Take 1 [facility] 25 mg 1-10 tablet by ity of tablet 00:00: mouth [place] 00 every 6 Medical (six) Branch hours as needed for Anxiety. lithium 2023-0 Yes [id number] 150mg Take 0.5 [facility] carbonate 1-10 tablets by ity of 300 mg 00:00: mouth in [place] tablet 00 the Medical morning. Branch QUEtiapine 2023-0 Yes [id number] 50mg Take 1 [facility] 50 mg 1-10 tablet by ity of tablet 00:00: mouth at [place] 00 bedtime as Medical needed for Branch Insomnia. gabapentin 3-0 Yes [id number] 600mg Take 2 [facility] 300 mg 1-10 9102 capsules ity of capsule 00:00: by mouth [place] 00 in the Medical morning Branch and 2 capsules at noon and 2 capsules in the evening. hydrOXYzine 2023-0 Yes [id number] 25mg Take 1 [facility] 25 mg 1-10 tablet by ity of tablet 00:00: mouth [place] 00 every 6 Medical (six) Branch hours as needed for Anxiety. lithium 3-0 Yes [id number] 150mg Take 0.5 [facility] carbonate 1-10 tablets by ity of 300 mg 00:00: mouth in [place] tablet 00 the Medical morning. Branch QUEtiapine 2022-0 Yes [id number] 50mg Take 1 [facility] 50 mg 1-10 tablet by ity of tablet 00:00: mouth at [place] 00 bedtime as Medical needed for Branch Insomnia. gabapentin 2022-0 Yes [id number] 600mg Take 2 [facility] 300 mg 1-10 9102 capsules ity of capsule 00:00: by mouth [place] 00 in the Medical morning Branch and 2 capsules at noon and 2 capsules in the evening. hydrOXYzine 3-0 Yes [id number] 25mg Take 1 [facility] 25 mg 1-10 tablet by ity of tablet 00:00: mouth [place] 00 every 6 Medical (six) Branch hours as needed for Anxiety. lithium 2023-0 Yes [id number] 150mg Take 0.5 [facility] carbonate 1-10 tablets by ity of 300 mg 00:00: mouth in [place] tablet 00 the Medical morning. Branch QUEtiapine 2023-0 Yes [id number] 50mg Take 1 [facility] 50 mg 1-10 tablet by ity of tablet 00:00: mouth at [place] 00 bedtime as Medical needed for Branch Insomnia. gabapentin 2023-0 Yes [id number] 600mg Take 2 [facility] 300 mg 1-10 9102 capsules ity of capsule 00:00: by mouth [place] 00 in the Medical morning Branch and 2 capsules at noon and 2 capsules in the evening. hydrOXYzine 2023-0 Yes [id number] 25mg Take 1 [facility] 25 mg 1-10 tablet by ity of tablet 00:00: mouth [place] 00 every 6 Medical (six) Branch hours as needed for Anxiety. lithium 3-0 Yes [id number] 150mg Take 0.5 [facility] carbonate 1-10 tablets by ity of 300 mg 00:00: mouth in [place] tablet 00 the Medical morning. Branch QUEtiapine 2022-0 Yes [id number] 50mg Take 1 [facility] 50 mg 1-10 tablet by ity of tablet 00:00: mouth at [place] 00 bedtime as Medical needed for Branch Insomnia. gabapentin 2022-0 Yes [id number] 600mg Take 2 [facility] 300 mg 1-10 9102 capsules ity of capsule 00:00: by mouth [place] 00 in the Medical morning Branch and 2 capsules at noon and 2 capsules in the evening. hydrOXYzine 2022-0 Yes [id number] 25mg Take 1 [facility] 25 mg 1-10 tablet by ity of tablet 00:00: mouth [place] 00 every 6 Medical (six) Branch hours as needed for Anxiety. lithium 2022-0 Yes [id number] 150mg Take 0.5 [facility] carbonate 1-10 tablets by ity of 300 mg 00:00: mouth in [place] tablet 00 the Medical morning. Branch QUEtiapine 2022-0 Yes [id number] 50mg Take 1 [facility] 50 mg 1-10 tablet by ity of tablet 00:00: mouth at [place] 00 bedtime as Medical needed for Branch Insomnia. gabapentin 2022-0 Yes [id number] 600mg Take 2 [facility] 300 mg 1-10 9102 capsules ity of capsule 00:00: by mouth [place] 00 in the Medical morning Branch and 2 capsules at noon and 2 capsules in the evening. hydrOXYzine 3-0 Yes [id number] 25mg Take 1 [facility] 25 mg 1-10 tablet by ity of tablet 00:00: mouth [place] 00 every 6 Medical (six) Branch hours as needed for Anxiety. lithium 2023-0 Yes [id number] 150mg Take 0.5 [facility] carbonate 1-10 tablets by ity of 300 mg 00:00: mouth in [place] tablet 00 the Medical morning. Branch QUEtiapine 3-0 Yes [id number] 50mg Take 1 [facility] 50 mg 1-10 tablet by ity of tablet 00:00: mouth at [place] 00 bedtime as Medical needed for Branch Insomnia. gabapentin 2023-0 Yes [id number] 600mg Take 2 [facility] 300 mg 1-10 9102 capsules ity of capsule 00:00: by mouth [place] 00 in the Medical morning Branch and 2 capsules at noon and 2 capsules in the evening. hydrOXYzine 2023-0 Yes [id number] 25mg Take 1 [facility] 25 mg 1-10 tablet by ity of tablet 00:00: mouth [place] 00 every 6 Medical (six) Branch hours as needed for Anxiety. lithium 2023-0 Yes [id number] 150mg Take 0.5 [facility] carbonate 1-10 tablets by ity of 300 mg 00:00: mouth in [place] tablet 00 the Medical morning. Branch QUEtiapine 2023-0 Yes [id number] 50mg Take 1 [facility] 50 mg 1-10 tablet by ity of tablet 00:00: mouth at [place] 00 bedtime as Medical needed for Branch Insomnia. gabapentin 3-0 Yes [id number] 600mg Take 2 [facility] 300 mg 1-10 9102 capsules ity of capsule 00:00: by mouth [place] 00 in the Medical morning Branch and 2 capsules at noon and 2 capsules in the evening. hydrOXYzine 2023-0 Yes [id number] 25mg Take 1 [facility] 25 mg 1-10 tablet by ity of tablet 00:00: mouth [place] 00 every 6 Medical (six) Branch hours as needed for Anxiety. lithium 2023-0 Yes [id number] 150mg Take 0.5 [facility] carbonate 1-10 tablets by ity of 300 mg 00:00: mouth in [place] tablet 00 the Medical morning. Branch QUEtiapine 2023-0 Yes [id number] 50mg Take 1 [facility] 50 mg 1-10 tablet by ity of tablet 00:00: mouth at [place] 00 bedtime as Medical needed for Branch Insomnia. gabapentin 2023-0 Yes [id number] 600mg Take 2 [facility] 300 mg 1-10 9102 capsules ity of capsule 00:00: by mouth [place] 00 in the Medical morning Branch and 2 capsules at noon and 2 capsules in the evening. hydrOXYzine 2023-0 Yes [id number] 25mg Take 1 [facility] 25 mg 1-10 tablet by ity of tablet 00:00: mouth [place] 00 every 6 Medical (six) Branch hours as needed for Anxiety. lithium 2023-0 Yes [id number] 150mg Take 0.5 [facility] carbonate 1-10 tablets by ity of 300 mg 00:00: mouth in [place] tablet 00 the Medical morning. Branch QUEtiapine 2023-0 Yes [id number] 50mg Take 1 [facility] 50 mg 1-10 tablet by ity of tablet 00:00: mouth at [place] 00 bedtime as Medical needed for Branch Insomnia. gabapentin 2023-0 Yes [id number] 600mg Take 2 [facility] 300 mg 1-10 9102 capsules ity of capsule 00:00: by mouth [place] 00 in the Medical morning Branch and 2 capsules at noon and 2 capsules in the evening. hydrOXYzine 2023-0 Yes [id number] 25mg Take 1 [facility] 25 mg 1-10 tablet by ity of tablet 00:00: mouth [place] 00 every 6 Medical (six) Branch hours as needed for Anxiety. lithium 3-0 Yes [id number] 150mg Take 0.5 [facility] carbonate 1-10 tablets by ity of 300 mg 00:00: mouth in [place] tablet 00 the Medical morning. Branch QUEtiapine 2022-0 Yes [id number] 50mg Take 1 [facility] 50 mg 1-10 tablet by ity of tablet 00:00: mouth at [place] 00 bedtime as Medical needed for Branch Insomnia. gabapentin 3-0 Yes [id number] 600mg Take 2 [facility] 300 mg 1-10 9102 capsules ity of capsule 00:00: by mouth [place] 00 in the Medical morning Branch and 2 capsules at noon and 2 capsules in the evening. hydrOXYzine 2023-0 Yes [id number] 25mg Take 1 [facility] 25 mg 1-10 tablet by ity of tablet 00:00: mouth [place] 00 every 6 Medical (six) Branch hours as needed for Anxiety. lithium 2023-0 Yes [id number] 150mg Take 0.5 [facility] carbonate 1-10 tablets by ity of 300 mg 00:00: mouth in [place] tablet 00 the Medical morning. Branch QUEtiapine 2023-0 Yes [id number] 50mg Take 1 [facility] 50 mg 1-10 tablet by ity of tablet 00:00: mouth at [place] 00 bedtime as Medical needed for Branch Insomnia. gabapentin 2023-0 Yes [id number] 600mg Take 2 [facility] 300 mg 1-10 9102 capsules ity of capsule 00:00: by mouth [place] 00 in the Medical morning Branch and 2 capsules at noon and 2 capsules in the evening. hydrOXYzine 2023-0 Yes [id number] 25mg Take 1 [facility] 25 mg 1-10 tablet by ity of tablet 00:00: mouth [place] 00 every 6 Medical (six) Branch hours as needed for Anxiety. lithium 3-0 Yes [id number] 150mg Take 0.5 [facility] carbonate 1-10 tablets by ity of 300 mg 00:00: mouth in [place] tablet 00 the Medical morning. Branch QUEtiapine 2022-0 Yes [id number] 50mg Take 1 [facility] 50 mg 1-10 tablet by ity of tablet 00:00: mouth at [place] 00 bedtime as Medical needed for Branch Insomnia. gabapentin 2022-0 Yes [id number] 600mg Take 2 [facility] 300 mg 1-10 9102 capsules ity of capsule 00:00: by mouth [place] 00 in the Medical morning Branch and 2 capsules at noon and 2 capsules in the evening. hydrOXYzine 3-0 Yes [id number] 25mg Take 1 [facility] 25 mg 1-10 tablet by ity of tablet 00:00: mouth [place] 00 every 6 Medical (six) Branch hours as needed for Anxiety. lithium 2022-0 Yes [id number] 150mg Take 0.5 [facility] carbonate 1-10 tablets by ity of 300 mg 00:00: mouth in [place] tablet 00 the Medical morning. Branch QUEtiapine 2022-0 Yes [id number] 50mg Take 1 [facility] 50 mg 1-10 tablet by ity of tablet 00:00: mouth at [place] 00 bedtime as Medical needed for Branch Insomnia. gabapentin 2022-0 Yes [id number] 600mg Take 2 [facility] 300 mg 1-10 9102 capsules ity of capsule 00:00: by mouth [place] 00 in the Medical morning Branch and 2 capsules at noon and 2 capsules in the evening. hydrOXYzine 3-0 Yes [id number] 25mg Take 1 [facility] 25 mg 1-10 tablet by ity of tablet 00:00: mouth [place] 00 every 6 Medical (six) Branch hours as needed for Anxiety. lithium 2023-0 Yes [id number] 150mg Take 0.5 [facility] carbonate 1-10 tablets by ity of 300 mg 00:00: mouth in [place] tablet 00 the Medical morning. Branch QUEtiapine 3-0 Yes [id number] 50mg Take 1 [facility] 50 mg 1-10 tablet by ity of tablet 00:00: mouth at [place] 00 bedtime as Medical needed for Branch Insomnia. gabapentin 2022-0 Yes [id number] 600mg Take 2 [facility] 300 mg - 9102 capsules ity of capsule 00:00: by mouth [place] 00 in the Medical morning Branch and 2 capsules at noon and 2 capsules in the evening. hydrOXYzine 2022-0 Yes [id number] 25mg Take 1 [facility] 25 mg 1-10 tablet by ity of tablet 00:00: mouth [place] 00 every 6 Medical (six) Branch hours as needed for Anxiety. methocarbam 2022- No [id number] 750mg Take 1 [facility] oL 750 mg 04-25 9102 tablet by ity of tablet 00:00: 05:59 mouth 4 [place] 00 :00 (four) Medical times Branch daily for 30 days. methocarbam 2022- No [id number] 750mg Take 1 [facility] oL 750 mg 04-25 9102 tablet by ity of tablet 00:00: 05:59 mouth 4 [place] 00 :00 (four) Medical times Branch daily for 30 days. methocarbam 2022- No [id number] 750mg Take 1 [facility] oL 750 mg 04-25 9102 tablet by ity of tablet 00:00: 05:59 mouth 4 [place] 00 :00 (four) Medical times Branch daily for 30 days. methocarbam 2022- No [id number] 750mg Take 1 [facility] oL 750 mg 04-25 9102 tablet by ity of tablet 00:00: 05:59 mouth 4 [place] 00 :00 (four) Medical times Branch daily for 30 days. methocarbam 2022- No [id number] 750mg Take 1 [facility] oL 750 mg 04-25 9102 tablet by ity of tablet 00:00: 05:59 mouth 4 [place] 00 :00 (four) Medical times Branch daily for 30 days. methocarbam 2022- No [id number] 750mg Take 1 [facility] oL 750 mg 04-25 9102 tablet by ity of tablet 00:00: 05:59 mouth 4 [place] 00 :00 (four) Medical times Branch daily for 30 days. methocarbam 2022- No [id number] 750mg Take 1 [facility] oL 750 mg 1-10 02-10 9102 tablet by ity of tablet 00:00: 05:59 mouth 4 [place] 00 :00 (four) Medical times [place] daily for 30 days. methocarbam 2022- No [id number] 750mg Take 1 [facility] oL 750 mg 04-25 9102 tablet by ity of tablet 00:00: 05:59 mouth 4 [place] 00 :00 ([facility]) Medical times [place] daily for 30 days. MONTELUKAST 2021-04 No 10 SODIUM 10 2-22 MG TABS 00:00: 00 BUSPIRONE 2021-04 No HCL 15 MG 2-21 TABS 00:00: 00 FLUOXETINE 2021-04 No 40 HYDROCHLORI [...] TABLET DAILY FOR 5 DAYS. TAKE 1 2-1 No TABLET BY 2-14 MOUTH TWICE 00:00: [...] 2-14 MOUTH THREE 00:00: TIMES DAILY 00 TAKE 2021-04 No TABLET 2-14 EVERY [...] 2021-04 No Unknown 2-14 00:00: 00 TAKE 2021-04 No 750 TABLET BY 2-14 MOUTH 00:00: NIGHTLY 00 Dose 2021-04 No Unknown 2-14 00:00: 00 Dose 2021-04 No Unknown 2-14 00:00: 00 Dose 2021-04 No Unknown 2-01 00:00: 00 AMPHETAMINE 2021- No 30 /DEXTROAMPH 2-01 ETAMINE 30 00:00: MG TABS 00 Dose 2021-04 No Unknown 2- 00:00: 00 Dose 2021-04 No Unknown 2- 00:00: 00 AMPHETAMINE 2021-04 No 30 /DEXTROAMPH 2- ETAMINE 30 00:00: MG TABS 00 TAKE 2021-04 No TABLET BY 2- MOUTH THREE 00:00: TIMES A DAY 00 ETODOLAC 2021-04 No 400 MG TABS 1-23 00:00: 00 ETODOLAC 2021-04 No 400 MG TABS 1-23 00:00: 00 Dose 2021-04 No Unknown 1- 00:00: 00 Dose 2021-04 No 30 Unknown 1 00:00: 00 LEVOTHYROXI 2021-04 No NE SODIUM 1-03 150 MCG 00:00: TABS 00 LEVOTHYROXI 2021-04 No NE SODIUM 1-03 150 MCG 00:00: TABS 00 TAKE 2021-04 No 100 CAPSULE 0-20 TWICE 00:00: DAILY. 00 TAKE 2021-04 No 1unit CAPSULE 0-20 TWICE 00:00: DAILY. 00 amphetamine 2021-04 Yes [id number] 30mg Take 30 mg [facility] -dextroamph 0-20 by mouth ity of etamine 30 00:00: in the [place] mg 24 hr 00 morning Medical capsule and 30 mg Branch in the evening. amphetamine 2021-04 Yes [id number] 30mg Take 30 mg [facility] -dextroamph 0-20 by mouth ity of etamine 30 00:00: in the [place] mg 24 hr 00 morning Medical capsule and 30 mg Branch in the evening. amphetamine 2021-04 Yes [id number] 30mg Take 30 mg [facility] -dextroamph 0-20 by mouth ity of etamine 30 00:00: in the [place] mg 24 hr 00 morning Medical capsule and 30 mg Branch in the evening. amphetamine 2021-04 Yes [id number] 30mg Take 30 mg [facility] -dextroamph 0-20 by mouth ity of etamine 30 00:00: in the [place] mg 24 hr 00 morning Medical capsule and 30 mg Branch in the evening. amphetamine 2021-04 Yes [id number] 30mg Take 30 mg [facility] -dextroamph 0-20 by mouth ity of etamine 30 00:00: in the [place] mg 24 hr 00 morning Medical capsule and 30 mg Branch in the evening. amphetamine 2021- Yes [id number] 30mg Take 30 mg [facility] -dextroamph 0-20 by mouth ity of etamine 30 00:00: in the [place] mg 24 hr 00 morning Medical capsule and 30 mg Branch in the evening. amphetamine 2021-1 Yes [id number] 30mg Take 30 mg [facility] -dextroamph 0-20 by mouth ity of etamine 30 00:00: in the [place] mg 24 hr 00 morning Medical capsule and 30 mg Branch in the evening. amphetamine 2021-1 Yes [id number] 30mg Take 30 mg [facility] -dextroamph 0-20 by mouth ity of etamine 30 00:00: in the [place] mg 24 hr 00 morning Medical capsule and 30 mg Branch in the evening. amphetamine 2021-1 Yes [id number] 30mg Take 30 mg [facility] -dextroamph 0-20 by mouth ity of etamine 30 00:00: in the [place] mg 24 hr 00 morning Medical capsule and 30 mg Branch in the evening. amphetamine 2021-1 Yes [id number] 30mg Take 30 mg [facility] -dextroamph 0-20 by mouth ity of etamine 30 00:00: in the [place] mg 24 hr 00 morning Medical capsule and 30 mg Branch in the evening. amphetamine 2021-1 Yes [id number] 30mg Take 30 mg [facility] -dextroamph 0-20 by mouth ity of etamine 30 00:00: in the [place] mg 24 hr 00 morning Medical capsule and 30 mg Branch in the evening. amphetamine 2021-1 Yes [id number] 30mg Take 30 mg [facility] -dextroamph 0-20 by mouth ity of etamine 30 00:00: in the [place] mg 24 hr 00 morning Medical capsule and 30 mg Branch in the evening. amphetamine 2021-1 Yes [id number] 30mg Take 30 mg [facility] -dextroamph 0-20 by mouth ity of etamine 30 00:00: in the [place] mg 24 hr 00 morning Medical capsule and 30 mg Branch in the evening. amphetamine 2021-1 Yes [id number] 30mg Take 30 mg [facility] -dextroamph 0-20 by mouth ity of etamine 30 00:00: in the [place] mg 24 hr 00 morning Medical capsule and 30 mg Branch in the evening. amphetamine 2021-1 Yes [id number] 30mg Take 30 mg [facility] -dextroamph 0-20 by mouth ity of etamine 30 00:00: in the [place] mg 24 hr 00 morning Medical capsule and 30 mg Branch in the evening. amphetamine 2021-1 Yes [id number] 30mg Take 30 mg [facility] -dextroamph 0-20 by mouth ity of etamine 30 00:00: in the [place] mg 24 hr 00 morning Medical capsule and 30 mg Branch in the evening. amphetamine 2021-1 Yes [id number] 30mg Take 30 mg [facility] -dextroamph 0-20 by mouth ity of etamine 30 00:00: in the [place] mg 24 hr 00 morning Medical capsule and 30 mg Branch in the evening. amphetamine 2021-1 Yes [id number] 30mg Take 30 mg [facility] -dextroamph 0-20 by mouth ity of etamine 30 00:00: in the [place] mg 24 hr 00 morning Medical capsule and 30 mg Branch in the evening. amphetamine 2021-1 Yes [id number] 30mg Take 30 mg [facility] -dextroamph 0-20 by mouth ity of etamine 30 00:00: in the [place] mg 24 hr 00 morning Medical capsule and 30 mg Branch in the evening. amphetamine 2021-1 Yes [id number] 30mg Take 30 mg [facility] -dextroamph 0-20 by mouth ity of etamine 30 00:00: in the [place] mg 24 hr 00 morning Medical capsule and 30 mg Branch in the evening. amphetamine 2021-1 Yes [id number] 30mg Take 30 mg [facility] -dextroamph 0-20 by mouth ity of etamine 30 00:00: in the [place] mg 24 hr 00 morning Medical capsule and 30 mg Branch in the evening. amphetamine 2021-1 Yes [id number] 30mg Take 30 mg [facility] -dextroamph 0-20 by mouth ity of etamine 30 00:00: in the [place] mg 24 hr 00 morning Medical capsule and 30 mg Branch in the evening. amphetamine 2021-1 Yes [id number] 30mg Take 30 mg [facility] -dextroamph 0-20 by mouth ity of etamine 30 00:00: in the [place] mg 24 hr 00 morning Medical capsule and 30 mg Branch in the evening. amphetamine 2021-1 Yes [id number] 30mg Take 30 mg [facility] -dextroamph 0-20 by mouth ity of etamine 30 00:00: in the [place] mg 24 hr 00 morning Medical capsule and 30 mg Branch in the evening. amphetamine 2022-1 Yes [id number] 30mg Take 30 mg [facility] -dextroamph 0-20 by mouth ity of etamine 30 00:00: in the [place] mg 24 hr 00 morning Medical capsule and 30 mg Branch in the evening. amphetamine 2021-04 Yes [id number] 30mg Take 30 mg [facility] -dextroamph 0-20 by mouth ity of etamine 30 00:00: in the [place] mg 24 hr 00 morning Medical capsule and 30 mg Branch in the evening. amphetamine 2021-04 Yes [id number] 30mg Take 30 mg [facility] -dextroamph 0-20 by mouth ity of etamine 30 00:00: in the [place] mg 24 hr 00 morning Medical capsule and 30 mg Branch in the evening. QUETIAPINE 2021-04 No FUMARATE 0-19 400 MG [...] 2021-04 No Unknown 0-19 00:00: 00 Dose 2021- No Unknown 0-19 00:00: 00 LISINOPRIL 2021-04 No 10 MG TABS 0-19 00:00: 00 TAKE 3 2021-04 No CAPSULES BY 0-19 MOUTH EVERY 00:00: DAY 00 Dose 2021-04 No 1 Unknown 0-19 00:00: 00 methocarbam 2021-04- No Un[facility] rs oL 750 mg 0-19 01-10 ity of tablet 00:00: 00:00 [place] 00 :00 Medical Branch methocarbam 2021-04- No Unive rs oL 750 mg 0-19 01-10 ity of tablet 00:00: 00:00 [place] 00 :00 Medical Branch methocarbam 2021-04- No Unive rs oL 750 mg 0-19 01-10 ity of tablet 00:00: 00:00 [place] 00 :00 Medical Branch methocarbam 2021-04- No Unive rs oL 750 mg 0-19 01-10 ity of tablet 00:00: 00:00 [place] 00 :00 Medical Branch methocarbam 2021-04- No Unive rs oL 750 mg 0-19 01-10 ity of tablet 00:00: 00:00 00 :00 Medical Branch methocarbam 2021-04- No Unive rs oL 750 mg 0-19 01-10 ity of tablet 00:00: 00:00 00 :00 Medical Branch BUSPIRONE 2021-04 No HYDROCHLORI 0-14 DE 10 MG 00:00: TABS BUSPIRONE 2021-04 No HYDROCHLORI 0-14 DE 10 MG 00:00: TABS BUSPIRONE 2021-04 No HYDROCHLORI 0-14 DE 10 MG 00:00: TABS 00 BUSPIRONE 2021-04 No HYDROCHLORI 0-14 DE 10 MG 00:00: TABS 00 SYMBICORT 2021-04 Yes INHALE 2 Univ ers [...] DAILY. Medical RINSE Branch MOUTH AFTER USE. gabapentin 2021-2022- No Univer s 300 mg 0-14 01-10 ity of capsule 00:00: 00:00 [place] 00 :00 Medical Branch gabapentin 2021-2022- No Univer s 300 mg 0-14 -10 ity of capsule 00:00: 00:00 [place] 00 :00 Medical Branch gabapentin 2021-3- No Univer s 300 mg 0-14 -10 ity of capsule 00:00: 00:00 [place] 00 :00 Medical Branch gabapentin 2021-1 3- No Univer s 300 mg 0-14 -10 ity of capsule 00:00: 00:00 [place] 00 :00 Medical Branch gabapentin 2021-2022- No Univer s 300 mg 0-14 -10 ity of capsule 00:00: 00:00 [place] 00 :00 Medical Branch gabapentin 2021-2022- No Univer s 300 mg 0-14 -10 ity of capsule 00:00: 00:00 [place] 00 :00 Medical Branch PROAIR HFA 2021-04 [...] NEEDED FOR MIGRAINES PROAIR HFA 2021-04 No 300 108 (90 0-04 Base) 00:00: MCG/ACT 00 AERS TAKE 2021-04 No 25 TABLET ONCE 0-04 A DAY 00:00: (DAILY) 00 NEEDED FOR MIGRAINES TRAZODONE No 50 HYDROCHLORI 9-29 DE 50 MG [...] OMEPRAZOLE 2022-0 No 40 40 MG CPDR 24 00:00: 00 SUMATRIPTAN 2022-0 No 50 SUCCINATE [...] 9-20 MOUTH EVERY 00:00: DAY 00 PANTOPRAZOL 2022-0 No 40 E SODIUM [...] 8-31 A DAY 00:00: 00 TAKE 1 2-0 No 400 TABLET BY [...] 8 00:00: 00 Dose 2022-0 No Unknown 8 [...] 8- 00:00: 00 &lt 2022-0 No 10 8-08 [...] ADHD TAKE 1 2022-0 No 30 CAPSULE 11-18 EVERY DAY 00:00: AT 8AM AND 00 2 PM FOR ADD OR ADHD TAKE 1 2022-0 No 30 CAPSULE 11-18 EVERY DAY 00:00: AT 8AM AND 00 [...] TAKE 1 2-0 No 40 CAPSULE BY 804 MOUTH EVERY 00:00: DAY 00 Dose 2022-0 [...] 00 TAKE 1 2-0 No TABLET BY 11-15 MOUTH EVERY 00:00: DAY IN THE 00 MORNING TAKE 1 2021-0 No 1 TABLET BY 11-15 MOUTH THREE [...] 7- 00:00: 00 &lt 2-0 No 300 7-31 00:00: 00 Dose 2-0 No Unknown 7- 00:00: 00 &lt 2-0 No 300 7-31 00:00: 00 budesonide- 2-0 No 2mcg/ac formoterol 7-31 tuation HFA 160 00:00: mcg-4.5 00 mcg/actuati on aerosol inhaler cyclobenzap 2021-0 No 1mg rine 5 mg 7- tablet 00:00: 00 &lt 2022-0 No 300 7-31 00:00: 00 budesonide- 2021-0 No 2mcg/ac formoterol 11-13 tuation HFA 160 00:00: mcg-4.5 00 mcg/actuati on aerosol inhaler cyclobenzap 2021-0 No 1mg rine 5 mg - tablet 00:00: 00 &lt 2022-0 No 300 7-31 00:00: 00 budesonide- 2021-0 No 2mcg/ac formoterol 11-13 tuation HFA 160 00:00: mcg-4.5 00 mcg/actuati on aerosol inhaler cyclobenzap 2021-0 No 1mg rine 5 mg - tablet 00:00: 00 &lt 2022-0 No 300 7-31 00:00: 00 &lt 2022-0 [...] 300 7-29 00:00: 00 &lt 2022-0 No 7-28 00:00: 00 &lt 2022-0 No 10 7-28 00:00: 00 Dose 2022-0 No 1 Unknown 7- 00:00: 00 TAKE 1 2-0 No 15 TABLET BY 7 MOUTH THREE 00:00: TIMES A DAY 00 Dose 2022-0 No 1 Unknown 7- 00:00: 00 &lt 2022-0 No 7-28 00:00: 00 &lt 2022-0 No 10 7- 00:00: 00 Dose 2022-0 No 1 Unknown 7- 00:00: 00 TAKE 1 2022-0 No 15 TABLET BY 7 MOUTH THREE [...] 2020- No Unknown 2-31 00:00: 00 Dose 2020-04 No Unknown 2-31 00:00: 00 Dose 2020-04 No Unknown 2-31 00:00: 00 Dose 2020- No Unknown 2-31 00:00: 00 Dose 2020- No Unknown 2-31 00:00: 00 Dose 2020-04 No 50 Unknown 2-31 00:00: 00 ibuprofen 2020-04 No 1mg 600 mg 2-31 tablet 00:00: 00 cyclobenzap 2020-04 No 1mg rine 7.5 mg 2-31 tablet 00:00: 00 levothyroxi 2020-04 No 1mcg ne 150 mcg 2-31 tablet 00:00: 00 ibuprofen 2020-04 No 1mg 600 mg 2-31 tablet 00:00: 00 cyclobenzap 2020-04 No 1mg rine 7.5 mg 2-31 tablet 00:00: 00 levothyroxi 2020-04 No 1mcg ne 150 mcg 2-31 tablet 00:00: 00 ibuprofen 2020- No 1mg 600 mg 2-31 tablet 00:00: 00 cyclobenzap 2020-04 No 1mg rine 7.5 mg 2-31 tablet 00:00: 00 Dose 2020-04 No Unknown 2-31 00:00: 00 ibuprofen 2020-04 No 1mg 600 mg 2-31 tablet 00:00: 00 cyclobenzap 2020-04 No 1mg rine 7.5 mg 2-31 tablet 00:00: 00 levothyroxi 2021-1 No 1mcg ne 150 mcg 2-31 tablet [...] 5 mg tablet 2-07 00:00: 00 gemfibrozil 2020- No 1mg 600 mg 2-07 tablet 00:00: 00 Dose 2020- No Unknown 2-07 00:00: 00 levothyroxi 2020-04 No 1mcg ne 150 mcg 2-07 tablet 00:00: 00 Dose 2020- No Unknown 2-07 00:00: 00 gabapentin 2020- No 1mg 300 mg 2-07 capsule 00:00: 00 Dose 2020- No Unknown 2-07 00:00: 00 gemfibrozil 2020-04 [...] 2020- No Unknown 1-08 00:00: 00 Symbicort 2020-04 [...] 2020- No Unknown 1-08 00:00: 00 Symbicort 2020-04 [...] 0-11 300 mg 00:00: capsule 00 buspirone 2020-04 No 1mg 10 mg 0-11 tablet 00:00: 00 Seroquel 2020-04 No 5mg 400 mg 0-11 tablet 00:00: [...] 600 mg 0-06 tablet 00:00: 00 Symbicort 1 No 2mcg/ac 160 mcg-4.5 0-06 tuation mcg/actuati [...] 2020- No Unknown 0-06 00:00: 00 Symbicort 2020-04 [...] tablet 00:00: 00 Dose 1-0 No Unknown 16 00:00: 00 Dose 1-0 No Unknown 916 00:00: 00 Dose 2020-0 No Unknown 916 00:00: 00 Dose 1-0 No Unknown 916 00:00: 00 Dose 1-0 No Unknown 9-16 00:00: 00 Dose 1-0 No Unknown 916 00:00: 00 Dose 1-0 No Unknown 916 00:00: 00 Dose 1-0 No Unknown 16 00:00: 00 Dose 1-0 No Unknown 12-30 00:00: 00 Dose 1-0 No Unknown 12-30 00:00: 00 Dose 1-0 No Unknown 12-30 00:00: 00 Dose 1-0 No Unknown 12-30 00:00: 00 Dose 1-0 No Unknown 9-16 [...] 12-30 00:00: 00 Dose 2021-0 No Unknown 9 00:00: 00 Dose 2021-0 No Unknown 12-30 [...] 9-16 00:00: 00 Dose 2021-0 No Unknown 9- 00:00: 00 Dose 2021-0 No Unknown 9 [...] Prozac 20 2021-0 No 3mg mg capsule 618 00:00: 00 lithium 2021-0 No 1mg carbonate [...] Prozac 20 2021-0 No 3mg mg capsule 618 00:00: 00 lithium 2021-0 No 1mg carbonate 6-18 300 mg 00:00: capsule 00 Dose 2021-0 No Unknown 618 00:00: 00 cyclobenzap 2021-0 No 1mg rine [...] Prozac 20 2020-0 No 3mg mg capsule - 00:00: 00 lithium 1-0 No 1mg carbonate [...] 00 Seroquel 2020-0 No 1mg 400 mg 5-26 tablet 00:00: 00 Prozac 20 2020-0 No 3mg mg capsule - 00:00: 00 lithium 1-0 No 1mg carbonate [...] 5-20 tablet 00:00: 00 FLUTICASONE 2019- Yes [id number] SHAKE U nivers PROPIONATE 0-15 LIQUID AND ity of 50 00:00: USE 2 [place] mcg/actuati 00 SPRAYS IN Med ical on nasal EACH Branch spray NOSTRIL DAILY FLUTICASONE 2019-04 Yes [id number] SHAKE U nivers PROPIONATE 0-15 LIQUID AND ity of 50 00:00: USE 2 [place] mcg/actuati 00 SPRAYS IN Med ical on nasal EACH Branch spray NOSTRIL DAILY FLUTICASONE 2019-04 Yes [id number] SHAKE U nivers PROPIONATE 0-15 LIQUID AND ity of 50 00:00: USE 2 [place] mcg/actuati 00 SPRAYS IN Med ical on nasal EACH Branch spray NOSTRIL DAILY FLUTICASONE 2019-04 Yes [id number] SHAKE U nivers PROPIONATE 0-15 LIQUID AND ity of 50 00:00: USE 2 [place] mcg/actuati 00 SPRAYS IN Med ical on nasal EACH Branch spray NOSTRIL DAILY FLUTICASONE 2019-04 Yes [id number] SHAKE U nivers PROPIONATE 0-15 LIQUID AND ity of 50 00:00: USE 2 [place] mcg/actuati 00 SPRAYS IN Med ical on nasal EACH Branch spray NOSTRIL DAILY FLUTICASONE 2019-04 Yes [id number] SHAKE U nivers PROPIONATE 0-15 LIQUID AND ity of 50 00:00: USE 2 [place] mcg/actuati 00 SPRAYS IN Med ical on nasal EACH Branch spray NOSTRIL DAILY FLUTICASONE 2019-04 Yes [id number] SHAKE U nivers PROPIONATE 0-15 LIQUID AND ity of 50 00:00: USE 2 [place] mcg/actuati 00 SPRAYS IN Med ical on nasal EACH Branch spray NOSTRIL DAILY FLUTICASONE 2019-04 Yes [id number] SHAKE U nivers PROPIONATE 0-15 LIQUID AND ity of 50 00:00: USE 2 [place] mcg/actuati 00 SPRAYS IN Med ical on nasal EACH Branch spray NOSTRIL DAILY FLUTICASONE 2019-04 Yes [id number] SHAKE U nivers PROPIONATE 0-15 LIQUID AND ity of 50 00:00: USE 2 [place] mcg/actuati 00 SPRAYS IN Med ical on nasal EACH Branch spray NOSTRIL DAILY FLUTICASONE 2019-04 Yes [id number] SHAKE U nivers PROPIONATE 0-15 LIQUID AND ity of 50 00:00: USE 2 [place] mcg/actuati 00 SPRAYS IN Med ical on nasal EACH Branch spray NOSTRIL DAILY FLUTICASONE 2019-04 Yes [id number] SHAKE U nivers PROPIONATE 0-15 LIQUID AND ity of 50 00:00: USE 2 [place] mcg/actuati 00 SPRAYS IN Med ical on nasal EACH Branch spray NOSTRIL DAILY FLUTICASONE 2019-04 Yes [id number] SHAKE U nivers PROPIONATE 0-15 LIQUID AND ity of 50 00:00: USE 2 [place] mcg/actuati 00 SPRAYS IN Med ical on nasal EACH Branch spray NOSTRIL DAILY FLUTICASONE 2020-1 Yes [id number] SHAKE U nivers PROPIONATE 0-15 LIQUID AND ity of 50 00:00: USE 2 [place] mcg/actuati 00 SPRAYS IN Med ical on nasal EACH Branch spray NOSTRIL DAILY FLUTICASONE 2019-04 Yes [id number] SHAKE U nivers PROPIONATE 0-15 LIQUID AND ity of 50 00:00: USE 2 [place] mcg/actuati 00 SPRAYS IN Med ical on nasal EACH Branch spray NOSTRIL DAILY FLUTICASONE 2019-04 Yes [id number] SHAKE U nivers PROPIONATE 0-15 LIQUID AND ity of 50 00:00: USE 2 [place] mcg/actuati 00 SPRAYS IN Med ical on nasal EACH Branch spray NOSTRIL DAILY FLUTICASONE 2019-04 Yes [id number] SHAKE U nivers PROPIONATE 0-15 LIQUID AND ity of 50 00:00: USE 2 [place] mcg/actuati 00 SPRAYS IN Med ical on nasal EACH Branch spray NOSTRIL DAILY FLUTICASONE 2019-04 Yes [id number] SHAKE U nivers PROPIONATE 0-15 LIQUID AND ity of 50 00:00: USE 2 [place] mcg/actuati 00 SPRAYS IN Med ical on nasal EACH Branch spray NOSTRIL DAILY FLUTICASONE 2019-04 Yes [id number] SHAKE U nivers PROPIONATE 0-15 LIQUID AND ity of 50 00:00: USE 2 [place] mcg/actuati 00 SPRAYS IN Med ical on nasal EACH Branch spray NOSTRIL DAILY FLUTICASONE 2019-04 Yes [id number] SHAKE U nivers PROPIONATE 0-15 LIQUID AND ity of 50 00:00: USE 2 [place] mcg/actuati 00 SPRAYS IN Med ical on nasal EACH Branch spray NOSTRIL DAILY FLUTICASONE 2019-04 Yes [id number] SHAKE U nivers PROPIONATE 0-15 LIQUID AND ity of 50 00:00: USE 2 [place] mcg/actuati 00 SPRAYS IN Med ical on nasal EACH Branch spray NOSTRIL DAILY FLUTICASONE 2019-04 Yes [id number] SHAKE U nivers PROPIONATE 0-15 LIQUID AND ity of 50 00:00: USE 2 [place] mcg/actuati 00 SPRAYS IN Med ical on nasal EACH Branch spray NOSTRIL DAILY FLUTICASONE 2019-04 Yes [id number] SHAKE U nivers PROPIONATE 0-15 LIQUID AND ity of 50 00:00: USE 2 [place] mcg/actuati 00 SPRAYS IN Med ical on nasal EACH Branch spray NOSTRIL DAILY FLUTICASONE 2019-04 Yes [id number] SHAKE U nivers PROPIONATE 0-15 LIQUID AND ity of 50 00:00: USE 2 [place] mcg/actuati 00 SPRAYS IN Med ical on nasal EACH Branch spray NOSTRIL DAILY FLUTICASONE 2019-04 Yes [id number] SHAKE U nivers PROPIONATE 0-15 LIQUID AND ity of 50 00:00: USE 2 [place] mcg/actuati 00 SPRAYS IN Med ical on nasal EACH Branch spray NOSTRIL DAILY FLUTICASONE 2019-04 Yes [id number] SHAKE U nivers PROPIONATE 0-15 LIQUID AND ity of 50 00:00: USE 2 [place] mcg/actuati 00 SPRAYS IN Med ical on nasal EACH Branch spray NOSTRIL DAILY FLUTICASONE 2019-04 Yes [id number] SHAKE U nivers PROPIONATE 0-15 LIQUID AND ity of 50 00:00: USE 2 [place] mcg/actuati 00 SPRAYS IN Med ical on nasal EACH Branch spray NOSTRIL DAILY FLUTICASONE 2019-04 Yes [id number] SHAKE U nivers PROPIONATE 0-15 LIQUID AND ity of 50 00:00: USE 2 [place] mcg/actuati 00 SPRAYS IN Med ical on nasal EACH Branch spray NOSTRIL DAILY FLUTICASONE 2019-04 Yes [id number] SHAKE U nivers PROPIONATE 0-15 LIQUID AND ity of 50 00:00: USE 2 [place] mcg/actuati 00 SPRAYS IN Med ical on nasal EACH Branch spray NOSTRIL DAILY FLUTICASONE 2019-04 Yes [id number] SHAKE U nivers PROPIONATE 0-15 LIQUID AND ity of 50 00:00: USE 2 [place] mcg/actuati 00 SPRAYS IN Med ical on nasal EACH Branch spray NOSTRIL DAILY FLUTICASONE 2019-04 Yes [id number] SHAKE U nivers PROPIONATE 0-15 LIQUID AND ity of 50 00:00: USE 2 [place] mcg/actuati 00 SPRAYS IN Med ical on nasal EACH Branch spray NOSTRIL DAILY FLUTICASONE 2019-04 Yes [id number] SHAKE U nivers PROPIONATE 0-15 LIQUID AND ity of 50 00:00: USE 2 [place] mcg/actuati 00 SPRAYS IN Med ical on nasal EACH Branch spray NOSTRIL DAILY doxycycline 2020-0 Yes [id number] 100mg Take 1 [facility] monohydrate 8-20 capsule by it y of 100 mg 00:00: mouth 2 [place] capsule 00 (two) Medical times Branch daily. doxycycline 2020-0 Yes [id number] 100mg Take 1 [facility] monohydrate 8-20 capsule by it y of 100 mg 00:00: mouth 2 [place] capsule 00 (two) Medical times Branch daily. doxycycline 2020-0 Yes [id number] 100mg Take 1 [facility] monohydrate 8-20 capsule by it y of 100 mg 00:00: mouth 2 [place] capsule 00 (two) Medical times Branch daily. doxycycline 2020-0 Yes [id number] 100mg Take 1 [facility] monohydrate 8-20 capsule by it y of 100 mg 00:00: mouth 2 [place] capsule 00 (two) Medical times Branch daily. doxycycline 2020-0 Yes [id number] 100mg Take 1 [facility] monohydrate 8-20 capsule by it y of 100 mg 00:00: mouth 2 [place] capsule 00 (two) Medical times Branch daily. doxycycline 2020-0 Yes [id number] 100mg Take 1 [facility] monohydrate 8-20 capsule by it y of 100 mg 00:00: mouth 2 [place] capsule 00 (two) Medical times Branch daily. doxycycline 2020-0 Yes [id number] 100mg Take 1 [facility] monohydrate 8-20 capsule by it y of 100 mg 00:00: mouth 2 [place] capsule 00 (two) Medical times Branch daily. doxycycline 2020-0 Yes [id number] 100mg Take 1 [facility] monohydrate 8-20 capsule by it y of 100 mg 00:00: mouth 2 [place] capsule 00 (two) Medical times Branch daily. doxycycline 2020-0 Yes [id number] 100mg Take 1 [facility] monohydrate 8-20 capsule by it y of 100 mg 00:00: mouth 2 [place] capsule 00 (two) Medical times Branch daily. doxycycline 2020-0 Yes [id number] 100mg Take 1 [facility] monohydrate 8-20 capsule by it y of 100 mg 00:00: mouth 2 [place] capsule 00 (two) Medical times Branch daily. doxycycline 2020-0 3- No [id number] 100mg Take 1 [facility] monohydrate 8-20 01-10 capsule by i ty of 100 mg 00:00: 00:00 mouth 2 [place] capsule 00 :00 (two) Medical times Branch daily. doxycycline 2020-0 2023- No [id number] 100mg Take 1 [facility] monohydrate 8-20 01-10 capsule by i ty of 100 mg 00:00: 00:00 mouth 2 [place] capsule 00 :00 (two) Medical times Branch daily. doxycycline 2022- No [id number] 100mg Take 1 [facility] monohydrate 8-20 01-10 capsule by i ty of 100 mg 00:00: 00:00 mouth 2 [place] capsule 00 :00 (two) Medical times Branch daily. doxycycline 2022- No [id number] 100mg Take 1 [facility] monohydrate 8-20 01-10 capsule by i ty of 100 mg 00:00: 00:00 mouth 2 [place] capsule 00 :00 (two) Medical times Branch daily. doxycycline 2022- No [id number] 100mg Take 1 [facility] monohydrate 8-20 01-10 capsule by i ty of 100 mg 00:00: 00:00 mouth 2 [place] capsule 00 :00 (two) Medical times Branch daily. doxycycline 2022- No [id number] 100mg Take 1 [facility] monohydrate 8-20 01-10 capsule by i ty of 100 mg 00:00: 00:00 mouth 2 [place] capsule 00 :00 (two) Medical times Branch daily. pantoprazol 2019-0 Yes [id number] 40mg Take 1 [facility] e 40 mg EC 8-18 tablet by ity of tablet 00:00: mouth once 00 daily as Medical needed for Branch Indigestio n. LORazepam 1 2019-0 Yes [id number] 1mg Take 1 [facility] mg tablet 8-18 tablet by ity o f 00:00: mouth once 00 daily as Medical needed for Branch Anxiety or Agitation. pantoprazol 2019-0 Yes [id number] 40mg Take 1 [facility] e 40 mg EC 8-18 tablet by ity of tablet 00:00: mouth once 00 daily as Medical needed for Branch Indigestio n. LORazepam 1 2019-0 Yes [id number] 1mg Take 1 [facility] mg tablet 8-18 tablet by ity o f 00:00: mouth once [place] 00 daily as Medical needed for Branch Anxiety or Agitation. pantoprazol 2019-0 Yes [id number] 40mg Take 1 [facility] e 40 mg EC 8-18 tablet by ity of tablet 00:00: mouth once 00 daily as Medical needed for Branch Indigestio n. LORazepam 1 2019-0 Yes [id number] 1mg Take 1 [facility] mg tablet 8-18 tablet by ity o f 00:00: mouth once [place] 00 daily as Medical needed for Branch Anxiety or Agitation. pantoprazol 2020-0 Yes [id number] 40mg Take 1 [facility] e 40 mg EC 8-18 tablet by ity of tablet 00:00: mouth once [place] 00 daily as Medical needed for Branch Indigestio n. LORazepam 1 2019-0 Yes [id number] 1mg Take 1 [facility] mg tablet 8-18 tablet by ity o f 00:00: mouth once [place] 00 daily as Medical needed for Branch Anxiety or Agitation. pantoprazol 2019-0 Yes [id number] 40mg Take 1 [facility] e 40 mg EC 8-18 tablet by ity of tablet 00:00: mouth once [place] 00 daily as Medical needed for Branch Indigestio n. LORazepam 1 2019-0 Yes [id number] 1mg Take 1 [facility] mg tablet 8-18 tablet by ity o f 00:00: mouth once [place] 00 daily as Medical needed for Branch Anxiety or Agitation. pantoprazol 2019-0 Yes [id number] 40mg Take 1 [facility] e 40 mg EC 8-18 tablet by ity of tablet 00:00: mouth once [place] 00 daily as Medical needed for Branch Indigestio n. LORazepam 1 2019-0 Yes [id number] 1mg Take 1 [facility] mg tablet 8-18 tablet by ity o f 00:00: mouth once [place] 00 daily as Medical needed for Branch Anxiety or Agitation. pantoprazol 2019-0 Yes [id number] 40mg Take 1 [facility] e 40 mg EC 8-18 tablet by ity of tablet 00:00: mouth once [place] 00 daily as Medical needed for Branch Indigestio n. LORazepam 1 2019-0 Yes [id number] 1mg Take 1 [facility] mg tablet 8-18 tablet by ity o f 00:00: mouth once [place] 00 daily as Medical needed for Branch Anxiety or Agitation. pantoprazol 2019-0 Yes [id number] 40mg Take 1 [facility] e 40 mg EC 8-18 tablet by ity of tablet 00:00: mouth once [place] 00 daily as Medical needed for Branch Indigestio n. LORazepam 1 2019-0 Yes [id number] 1mg Take 1 [facility] mg tablet 8-18 tablet by ity o f 00:00: mouth once [place] 00 daily as Medical needed for Branch Anxiety or Agitation. pantoprazol 2020-0 Yes [id number] 40mg Take 1 [facility] e 40 mg EC 8-18 tablet by ity of tablet 00:00: mouth once [place] 00 daily as Medical needed for Branch Indigestio n. LORazepam 1 2019-0 Yes [id number] 1mg Take 1 [facility] mg tablet 8-18 tablet by ity o f 00:00: mouth once [place] 00 daily as Medical needed for Branch Anxiety or Agitation. pantoprazol 2019-0 Yes [id number] 40mg Take 1 [facility] e 40 mg EC 8-18 tablet by ity of tablet 00:00: mouth once [place] 00 daily as Medical needed for Branch Indigestio n. LORazepam 1 2019-0 Yes [id number] 1mg Take 1 [facility] mg tablet 8-18 tablet by ity o f 00:00: mouth once [place] 00 daily as Medical needed for Branch Anxiety or Agitation. pantoprazol 2019-0 Yes [id number] 40mg Take 1 [facility] e 40 mg EC 8-18 tablet by ity of tablet 00:00: mouth once [place] 00 daily as Medical needed for Branch Indigestio n. LORazepam 1 2019-0 Yes [id number] 1mg Take 1 [facility] mg tablet 8-18 tablet by ity o f 00:00: mouth once [place] 00 daily as Medical needed for Branch Anxiety or Agitation. pantoprazol 2019-0 Yes [id number] 40mg Take 1 [facility] e 40 mg EC 8-18 tablet by ity of tablet 00:00: mouth once [place] 00 daily as Medical needed for Branch Indigestio n. LORazepam 1 2019-0 Yes [id number] 1mg Take 1 [facility] mg tablet 8-18 tablet by ity o f 00:00: mouth once [place] 00 daily as Medical needed for Branch Anxiety or Agitation. pantoprazol 2019-0 Yes [id number] 40mg Take 1 [facility] e 40 mg EC 8-18 tablet by ity of tablet 00:00: mouth once [place] 00 daily as Medical needed for Branch Indigestio n. LORazepam 1 2019-0 Yes [id number] 1mg Take 1 [facility] mg tablet 8-18 tablet by ity o f 00:00: mouth once [place] 00 daily as Medical needed for Branch Anxiety or Agitation. pantoprazol 2019-0 2022- No [id number] 40mg Take 1 [facility] e 40 mg EC 8-18 01-10 tablet by ity of tablet 00:00: 00:00 mouth once [place] 00 :00 daily as Medical needed for Branch Indigestio n. LORazepam 1 No [id number] 1mg Take 1 [facility] mg tablet 12-0110 tablet by ity of 00:00: 00:00 mouth once [place] 00 :00 daily as Medical needed for Branch Anxiety or Agitation. pantoprazol No [id number] 40mg Take 1 [facility] e 40 mg EC 810 tablet by ity of tablet 00:00: 00:00 mouth once [place] 00 :00 daily as Medical needed for Branch Indigestio n. LORazepam 1 No [id number] 1mg Take 1 [facility] mg tablet 12-01 tablet by ity of 00:00: 00:00 mouth once [place] 00 :00 daily as Medical needed for Branch Anxiety or Agitation. pantoprazol No [id number] 40mg Take 1 [facility] e 40 mg EC 12-0110 tablet by ity of tablet 00:00: 00:00 mouth once [place] 00 :00 daily as Medical needed for Branch Indigestio n. LORazepam 1 No [id number] 1mg Take 1 [facility] mg tablet 12-01 tablet by ity of 00:00: 00:00 mouth once [place] 00 :00 daily as Medical needed for Branch Anxiety or Agitation. pantoprazol No [id number] 40mg Take 1 [facility] e 40 mg EC 12-0110 tablet by ity of tablet 00:00: 00:00 mouth once [place] 00 :00 daily as Medical needed for Branch Indigestio n. LORazepam 1 No [id number] 1mg Take 1 [facility] mg tablet 12-0110 tablet by ity of 00:00: 00:00 mouth once [place] 00 :00 daily as Medical needed for Branch Anxiety or Agitation. pantoprazol No [id number] 40mg Take 1 [facility] e 40 mg EC 12-0110 tablet by ity of tablet 00:00: 00:00 mouth once [place] 00 :00 daily as Medical needed for Branch Indigestio n. LORazepam 1 2022- No [id number] 1mg Take 1 [facility] mg tablet 12-01 tablet by ity of 00:00: 00:00 mouth once [place] 00 :00 daily as Medical needed for Branch Anxiety or Agitation. pantoprazol 2022- No [id number] 40mg Take 1 [facility] e 40 mg EC 12-01 tablet by ity of tablet 00:00: 00:00 mouth once [place] 00 :00 daily as Medical needed for Branch Indigestio n. LORazepam 1 2022- No [id number] 1mg Take 1 [facility] mg tablet 12-01 tablet by ity of 00:00: 00:00 mouth once [place] 00 :00 daily as Medical needed for Branch Anxiety or Agitation. doxycycline 2019- No [id number] 100mg Take 1 [facility] hyclate 100 12-01-02 capsule by i ty of mg capsule 00:00: 04:59 mouth [place] 00 :00 every 12 Medical (twelve) Branch hours for 14 days. doxycycline 2019- No [id number] 100mg Take 1 [facility] hyclate 100 12-01- capsule by i ty of mg capsule 00:00: 04:59 mouth [place] 00 :00 every 12 Medical (twelve) Branch hours for 14 days. doxycycline 2019- No [id number] 100mg Take 1 [facility] hyclate 100 12-01-02 capsule by i ty of mg capsule 00:00: 04:59 mouth [place] 00 :00 every 12 Medical (twelve) Branch hours for 14 days. doxycycline 2019- No [id number] 100mg Take 1 [facility] hyclate 100 12-01 08-20 capsule by i ty of mg capsule 00:00: 00:00 mouth [place] 00 :00 every 12 Medical (twelve) Branch hours for 14 days. FLUoxetine 2019-0 Yes 60mg Take 60 mg U nivers 60 mg 7-23 by mouth ity of tablet 00:00: daily. Medical Branch FLUoxetine 2020-0 Yes 60mg Take 60 mg U nivers 60 mg 7-23 by mouth ity of tablet 00:00: daily. [place] [facility] FLUoxetine 2020-0 Yes 60mg Take 60 mg U nivers 60 mg 7-23 by mouth ity of tablet 00:00: daily. [place] 00 Medical Branch FLUoxetine 2020-0 Yes 60mg Take 60 mg U nivers 60 mg 7-23 by mouth ity of tablet 00:00: daily. [place] [facility] FLUoxetine 2020-0 Yes 60mg Take 60 mg U nivers 60 mg 7-23 by mouth ity of tablet 00:00: daily. [address] FLUoxetine 2020-0 Yes 60mg Take 60 mg U nivers 60 mg 7-23 by mouth ity of tablet 00:00: daily. [address] FLUoxetine 2020-0 Yes 60mg Take 60 mg U nivers 60 mg 7-23 by mouth ity of tablet 00:00: daily. [address] FLUoxetine 2020-0 Yes 60mg Take 60 mg U nivers 60 mg 7-23 by mouth ity of tablet 00:00: daily. [address] FLUoxetine 2020-0 Yes 60mg Take 60 mg U nivers 60 mg 7-23 by mouth ity of tablet 00:00: daily. [address] FLUoxetine 2020-0 Yes 60mg Take 60 mg U nivers 60 mg 7-23 by mouth ity of tablet 00:00: daily. [address] FLUoxetine 2020-0 Yes 60mg Take 60 mg U nivers 60 mg 7-23 by mouth ity of tablet 00:00: daily. [address] FLUoxetine 2020-0 Yes 60mg Take 60 mg U nivers 60 mg 7-23 by mouth ity of tablet 00:00: daily. [address] FLUoxetine 2020-0 Yes 60mg Take 60 mg U nivers 60 mg 7-23 by mouth ity of tablet 00:00: daily. [address] FLUoxetine 2020-0 Yes 60mg Take 60 mg U nivers 60 mg 7-23 by mouth ity of tablet 00:00: daily. [address] FLUoxetine 2020-0 Yes 60mg Take 60 mg U nivers 60 mg 7-23 by mouth ity of tablet 00:00: daily. [address] FLUoxetine 2020-0 Yes 60mg Take 60 mg U nivers 60 mg 7-23 by mouth ity of tablet 00:00: daily. [address] FLUoxetine 2020-0 Yes 60mg Take 60 mg U nivers 60 mg 7-23 by mouth ity of tablet 00:00: daily. [address] FLUoxetine 2020-0 Yes 60mg Take 60 mg U nivers 60 mg 7-23 by mouth ity of tablet 00:00: daily. [address] FLUoxetine 2020-0 Yes 60mg Take 60 mg U nivers 60 mg 7-23 by mouth ity of tablet 00:00: daily. [place] [facility] FLUoxetine 2020-0 Yes 60mg Take 60 mg U nivers 60 mg 7-23 by mouth ity of tablet 00:00: daily. [place] [facility] FLUoxetine 2020-0 Yes 60mg Take 60 mg U nivers 60 mg 7-23 by mouth ity of tablet 00:00: daily. [place] [facility] FLUoxetine 2020-0 Yes 60mg Take 60 mg U nivers 60 mg 7-23 by mouth ity of tablet 00:00: daily. [address] FLUoxetine 2020-0 Yes 60mg Take 60 mg U nivers 60 mg 7-23 by mouth ity of tablet 00:00: daily. [address] FLUoxetine 2020-0 Yes 60mg Take 60 mg U nivers 60 mg 7-23 by mouth ity of tablet 00:00: daily. [address] FLUoxetine 2020-0 Yes 60mg Take 60 mg U nivers 60 mg 7-23 by mouth ity of tablet 00:00: daily. [address] FLUoxetine 2020-0 Yes 60mg Take 60 mg U nivers 60 mg 7-23 by mouth ity of tablet 00:00: daily. [address] FLUoxetine 2020-0 Yes 60mg Take 60 mg U nivers 60 mg 7-23 by mouth ity of tablet 00:00: daily. [address] FLUoxetine 2020-0 Yes 60mg Take 60 mg U nivers 60 mg 7-23 by mouth ity of tablet 00:00: daily. [address] FLUoxetine 2020-0 Yes 60mg Take 60 mg U nivers 60 mg 7-23 by mouth ity of tablet 00:00: daily. [address] FLUoxetine 2020-0 Yes 60mg Take 60 mg U nivers 60 mg 7-23 by mouth ity of tablet 00:00: daily. [address] FLUoxetine 2020-0 Yes 60mg Take 60 mg U nivers 60 mg 7-23 by mouth ity of tablet 00:00: daily. [address] FLUoxetine 2020-0 Yes 60mg Take 60 mg U nivers 60 mg 7-23 by mouth ity of tablet 00:00: daily. [address] FLUoxetine 2020-0 Yes 60mg Take 60 mg U nivers 60 mg 7-23 by mouth ity of tablet 00:00: daily. [place] [facility] FLUoxetine 2020-0 Yes 60mg Take 60 mg U nivers 60 mg 7-23 by mouth ity of tablet 00:00: daily. [place] [facility] FLUoxetine 2020-0 Yes 60mg Take 60 mg U nivers 60 mg 7-23 by mouth ity of tablet 00:00: daily. [place] [facility] FLUoxetine 2020-0 Yes 60mg Take 60 mg U nivers 60 mg 7-23 by mouth ity of tablet 00:00: daily. [place] [facility] FLUoxetine 2020-0 Yes 60mg Take 60 mg U nivers 60 mg 7-23 by mouth ity of tablet 00:00: daily. [place] [facility] FLUoxetine 2020-0 Yes 60mg Take 60 mg U nivers 60 mg 7-23 by mouth ity of tablet 00:00: daily. [place] [facility] FLUoxetine 2020-0 Yes 60mg Take 60 mg U nivers 60 mg 7-23 by mouth ity of tablet 00:00: daily. [place] [facility] FLUoxetine 2020-0 Yes 60mg Take 60 mg U nivers 60 mg 7-23 by mouth ity of tablet 00:00: daily. [place] [facility] QUEtiapine 2020-0 Yes 200mg Take 200 [facility] [place] 200 mg 7-21 mg by ity of tablet 00:00: mouth at [place] [address] bedtime. Medical Branch QUEtiapine 2020-0 Yes 200mg Take 200 [facility] [place] 200 mg 7-21 mg by ity of tablet 00:00: mouth at [place] [address] bedtime. Medical Branch QUEtiapine 2020-0 Yes 200mg Take 200 [facility] [place] 200 mg 7-21 mg by ity of tablet 00:00: mouth at [place] [address] bedtime. Medical Branch QUEtiapine 2020-0 Yes 200mg Take 200 [facility] [place] 200 mg 7-21 mg by ity of tablet 00:00: mouth at [place] [address] bedtime. Medical Branch QUEtiapine 2020-0 Yes 200mg Take 200 [facility] [place] 200 mg 7-21 mg by ity of tablet 00:00: mouth at [place] [address] bedtime. Medical Branch QUEtiapine 2020-0 Yes 200mg Take 200 [place] 200 mg 7-21 mg by ity of tablet 00:00: mouth at [place] [address] bedtime. Medical Branch QUEtiapine 2020-0 Yes 200mg Take 200 [facility] [place] 200 mg 7-21 mg by ity of tablet 00:00: mouth at [place] [address] bedtime. Medical Branch QUEtiapine 2020-0 Yes 200mg Take 200 [facility] [place] 200 mg 7-21 mg by ity of tablet 00:00: mouth at [place] [address] bedtime. Medical Branch QUEtiapine 2020-0 Yes 200mg Take 200 [place] 200 mg 7-21 mg by ity of tablet 00:00: mouth at [place] [address] bedtime. Medical Branch QUEtiapine 2020-0 Yes 200mg Take 200 [place] 200 mg 7-21 mg by ity of tablet 00:00: mouth at [place] [address] bedtime. Medical Branch QUEtiapine 2020-0 Yes 200mg Take 200 [place] 200 mg 7-21 mg by ity of tablet 00:00: mouth at [place] [address] bedtime. Medical Branch QUEtiapine 2020-0 Yes 200mg Take 200 [place] 200 mg 7-21 mg by ity of tablet 00:00: mouth at [place] [address] bedtime. Medical Branch QUEtiapine 2020-0 Yes 200mg Take 200 [place] 200 mg 7-21 mg by ity of tablet 00:00: mouth at [place] [address] bedtime. Medical Branch QUEtiapine 2020-0 2023- No 200mg Take 200 U nivers 200 mg 7-21 01-10 mg by ity of tablet 00:00: 00:00 mouth at [place] 00 :00 bedtime. Medical Branch QUEtiapine 2020-0 2023- No 200mg Take 200 U nivers 200 mg 7-21 01-10 mg by ity of tablet 00:00: 00:00 mouth at [place] 00 :00 bedtime. Medical Branch QUEtiapine 2020-0 2023- No 200mg Take 200 U nivers 200 mg 7-21 01-10 mg by ity of tablet 00:00: 00:00 mouth at [place] 00 :00 bedtime. Medical Branch QUEtiapine 2020-0 2023- No 200mg Take 200 U nivers 200 mg 7-21 01-10 mg by ity of tablet 00:00: 00:00 mouth at [place] 00 :00 bedtime. Medical Branch QUEtiapine 2020-0 2023- No 200mg Take 200 U nivers 200 mg 7-21 01-10 mg by ity of tablet 00:00: 00:00 mouth at [place] 00 :00 bedtime. Medical Branch QUEtiapine 2020-0 2023- No 200mg Take 200 U nivers 200 mg 7- 01-10 mg by ity of tablet 00:00: 00:00 mouth at [place] 00 :00 bedtime. Medical Branch pantoprazol Yes [id number] 40mg Take 1 [facility] e 40 mg EC 6-23 tablet by ity of tablet 00:00: mouth once [place] 00 daily as Medical needed for Branch Indigestio n. pantoprazol Yes [id number] 40mg Take 1 [facility] e 40 mg EC 6-23 tablet by ity of tablet 00:00: mouth once [place] 00 daily as Medical needed for Branch Indigestio n. pantoprazol Yes [id number] 40mg Take 1 [facility] e 40 mg EC 6-23 tablet by ity of tablet 00:00: mouth once [place] 00 daily as Medical needed for Branch Indigestio n. pantoprazol 2019- No [id number] 40mg Take 1 [facility] e 40 mg EC 6-23 08-18 tablet by ity of tablet 00:00: 00:00 mouth [place] 00 :00 daily as Medical needed for Branch Indigestio n. pantoprazol 2019- No [id number] 40mg Take 1 [facility] e 40 mg EC 6-23 08-18 tablet by ity of tablet 00:00: 00:00 mouth [place] 00 :00 daily as Medical needed for Branch Indigestio n. fluticasone Yes [id number] 2{spray Use 2 [facility] propionate 6-16 } Sprays in ity of (FLONASE 00:00: each [place] ALLERGY nostril Medical RELIEF) 50 daily. Branch mcg/actuati on nasal spray LORazepam 1 Yes [id number] 1mg Take 1 [facility] mg tablet 6-16 tablet by ity o f 00:00: mouth once [place] 00 daily as Medical needed for Branch Anxiety or Agitation. fluticasone Yes [id number] 2{spray Use 2 [facility] propionate 6-16 } Sprays in ity of (FLONASE 00:00: each [place] ALLERGY 00 nostril Medical RELIEF) 50 daily. Branch mcg/actuati on nasal spray LORazepam 1 2019- Yes [id number] 1mg Take 1 [facility] mg tablet 6-16 tablet by ity o f 00:00: mouth once [place] 00 daily as Medical needed for Branch Anxiety or Agitation. fluticasone 2020-0 Yes [id number] 2{spray Use 2 [facility] propionate 6-16 } Sprays in ity of (FLONASE 00:00: each [place] ALLERGY 00 nostril Medical RELIEF) 50 daily. Branch mcg/actuati on nasal spray LORazepam 1 2020-0 Yes [id number] 1mg Take 1 [facility] mg tablet 6-16 tablet by ity o f 00:00: mouth once 00 daily as Medical needed for Branch Anxiety or Agitation. fluticasone 2020-0 Yes [id number] 2{spray Use 2 [facility] propionate 6-16 } Sprays in ity of (FLONASE 00:00: each [place] ALLERGY 00 nostril Medical RELIEF) 50 daily. Branch mcg/actuati on nasal spray LORazepam 1 2020-0 Yes [id number] 1mg Take 1 [facility] mg tablet 6-16 tablet by ity o f 00:00: mouth once 00 daily as Medical needed for Branch Anxiety or Agitation. fluticasone 2020-0 Yes [id number] 2{spray Use 2 [facility] propionate 6-16 } Sprays in ity of (FLONASE 00:00: each [place] ALLERGY 00 nostril Medical RELIEF) 50 daily. Branch mcg/actuati on nasal spray fluticasone 2020-0 Yes [id number] 2{spray Use 2 [facility] propionate 6-16 } Sprays in ity of (FLONASE 00:00: each [place] ALLERGY 00 nostril Medical RELIEF) 50 daily. Branch mcg/actuati on nasal spray fluticasone 2020-0 Yes [id number] 2{spray Use 2 [facility] propionate 6-16 } Sprays in ity of (FLONASE 00:00: each [place] ALLERGY 00 nostril Medical RELIEF) 50 daily. Branch mcg/actuati on nasal spray fluticasone 2020-0 Yes [id number] 2{spray Use 2 [facility] propionate 6-16 } Sprays in ity of (FLONASE 00:00: each [place] ALLERGY 00 nostril Medical RELIEF) 50 daily. Branch mcg/actuati on nasal spray fluticasone 2020-0 Yes [id number] 2{spray Use 2 [facility] propionate 6-16 } Sprays in ity of (FLONASE 00:00: each [place] ALLERGY 00 nostril Medical RELIEF) 50 daily. Branch mcg/actuati on nasal spray fluticasone 2020-0 Yes [id number] 2{spray Use 2 [facility] propionate 6-16 } Sprays in ity of (FLONASE 00:00: each [place] ALLERGY 00 nostril Medical RELIEF) 50 daily. Branch mcg/actuati on nasal spray fluticasone 2020-0 Yes [id number] 2{spray Use 2 [facility] propionate 6-16 } Sprays in ity of (FLONASE 00:00: each [place] ALLERGY 00 nostril Medical RELIEF) 50 daily. Branch mcg/actuati on nasal spray fluticasone 2020-0 Yes [id number] 2{spray Use 2 [facility] propionate 6-16 } Sprays in ity of (FLONASE 00:00: each [place] ALLERGY 00 nostril Medical RELIEF) 50 daily. Branch mcg/actuati on nasal spray fluticasone 2020-0 Yes [id number] 2{spray Use 2 [facility] propionate 6-16 } Sprays in ity of (FLONASE 00:00: each [place] ALLERGY 00 nostril Medical RELIEF) 50 daily. Branch mcg/actuati on nasal spray fluticasone 2020-0 2020- No [id number] 2{spray Use 2 [facility] propionate 6-16 10-15 } Sprays in ity of (FLONASE 00:00: 00:00 each [place] ALLERGY 00 :00 nostril Medical RELIEF) 50 daily. Branch mcg/actuati on nasal spray LORazepam 1 2020-0 2020- No [id number] 1mg Take 1 [facility] mg tablet 6-16 08-18 tablet by ity of 00:00: 00:00 mouth once [place] 00 :00 daily as Medical needed for Branch Anxiety or Agitation. LORazepam 1 2020-0 2020- No [id number] 1mg Take 1 [facility] mg tablet 6-16 [...] Medical times Branch daily. FLUoxetine 2020-0 Yes [id number] 60mg Take 3 U nivers 20 mg 6-11 capsules ity of capsule 00:00: by mouth [place] 00 daily. Medical Branch FLUoxetine 2020-0 Yes [id number] 60mg Take 3 U nivers 20 mg 6-11 capsules ity of capsule 00:00: by mouth [place] 00 daily. Medical Branch FLUoxetine 2020-0 Yes [id number] 60mg Take 3 U nivers 20 mg 6-11 capsules ity of capsule 00:00: by mouth [place] 00 daily. Medical Branch FLUoxetine 2020-0 Yes [id number] 60mg Take 3 U nivers 20 mg 6-11 capsules ity of capsule 00:00: by mouth [place] 00 daily. Medical Branch FLUoxetine 2020-0 Yes [id number] 60mg Take 3 U nivers 20 mg 6-11 capsules ity of capsule 00:00: by mouth [place] 00 daily. Medical Branch FLUoxetine 2020-0 2020- No [id number] 60mg Take 3 [facility] 20 mg 6-11 08-18 capsules ity of capsule 00:00: 00:00 by mouth [place] 00 :00 daily. Medical Branch FLUoxetine 2020-0 2020- No [id number] 60mg Take 3 [facility] 20 mg 6-11 08-18 capsules ity of capsule 00:00: 00:00 by mouth [place] 00 :00 daily. Medical Branch pantoprazol 2020-0 Yes [id number] 40mg Take 1 [facility] e 40 mg EC 5-21 tablet by ity of tablet 00:00: mouth once [place] 00 daily as Medical needed for Branch Indigestio n. pantoprazol 2020-0 Yes [id number] 40mg Take 1 [facility] e 40 mg EC 5-21 tablet by ity of tablet 00:00: mouth once [place] 00 daily as Medical needed for Branch Indigestio n. pantoprazol 2020-0 Yes [id number] 40mg Take 1 [facility] e 40 mg EC 5-21 tablet by ity of tablet 00:00: mouth once [place] 00 daily as Medical needed for Branch Indigestio n. pantoprazol 2019-0 2020- No [id number] 40mg Take 1 [facility] e 40 mg EC 5-21 06-23 tablet by ity of tablet 00:00: 00:00 mouth [place] 00 :00 daily as Medical needed for Branch Indigestio n. cariprazine 2019-0 2020- No 10mg Take 10 mg [facility] HCl 5-19 05-19 by mouth ity of (VRAYLAR 16:24: 00:00 at [place] ORAL) 07 :00 bedtime. Medical Branch phenytoin 2019-0 Yes [id number] 400mg Take 4 U nivers Extended 5-19 capsules ity of (DILANTIN) 00:00: by mouth [place] 100 mg 00 daily. Medical capsule Branch levothyroxi 2019-0 Yes [id number] 150ug Take 1 [facility] ne 150 mcg 5-19 tablet by ity of tablet 00:00: mouth [place] 00 every Medical morning. Branch cholestyram 2019-0 Yes [id number] 2g Take 0.5 [facility] ine 4 gram 5-19 Packets by ity of powder 00:00: mouth 3 [place] 00 (three) Medical times Branch daily with meals. phenytoin 2020-0 Yes [id number] 400mg Take 4 U nivers Extended 5-19 capsules ity of (DILANTIN) 00:00: by mouth [place] 100 mg 00 daily. Medical capsule Branch levothyroxi 2019-0 Yes [id number] 150ug Take 1 [facility] ne 150 mcg 5-19 tablet by ity of tablet 00:00: mouth [place] 00 every Medical morning. Branch cholestyram 2019-0 Yes [id number] 2g Take 0.5 [facility] ine 4 gram 5-19 Packets by ity of powder 00:00: mouth 3 (three) Medical times Branch daily with meals. phenytoin 2020-0 Yes [id number] 400mg Take 4 U nivers Extended 5-19 capsules ity of (DILANTIN) 00:00: by mouth [place] 100 mg 00 daily. Medical capsule Branch levothyroxi 2019-0 Yes [id number] 150ug Take 1 [facility] ne 150 mcg 5-19 tablet by ity of tablet 00:00: mouth every Medical morning. Branch cholestyram 2020-0 Yes [id number] 2g Take 0.5 [facility] ine 4 gram 5-19 Packets by ity of powder 00:00: mouth (three) Medical times Branch daily with meals. phenytoin 2020-0 Yes [id number] 400mg Take 4 U nivers Extended 5-19 capsules ity of (DILANTIN) 00:00: by mouth [place] 100 mg 00 daily. Medical capsule Branch levothyroxi 2019-0 Yes [id number] 150ug Take 1 [facility] ne 150 mcg 5-19 tablet by ity of tablet 00:00: mouth every Medical morning. Branch cholestyram 2019-0 Yes [id number] 2g Take 0.5 [facility] ine 4 gram 5-19 Packets by ity of powder 00:00: mouth (three) Medical times Branch daily with meals. phenytoin 2020-0 Yes [id number] 400mg Take 4 U nivers Extended 5-19 capsules ity of (DILANTIN) 00:00: by mouth [place] 100 mg 00 daily. Medical capsule Branch levothyroxi 2020-0 Yes [id number] 150ug Take 1 [facility] ne 150 mcg 5-19 tablet by ity of tablet 00:00: mouth every Medical morning. Branch cholestyram 2020-0 Yes [id number] 2g Take 0.5 [facility] ine 4 gram 5-19 Packets by ity of powder 00:00: mouth (three) Medical times Branch daily with meals. phenytoin 2020-0 Yes [id number] 400mg Take 4 U nivers Extended 5-19 capsules ity of (DILANTIN) 00:00: by mouth [place] 100 mg 00 daily. Medical capsule Branch levothyroxi 2020-0 Yes [id number] 150ug Take 1 [facility] ne 150 mcg 5-19 tablet by ity of tablet 00:00: mouth [place] 00 every Medical morning. Branch cholestyram 2020-0 Yes [id number] 2g Take 0.5 [facility] ine 4 gram 5-19 Packets by ity of powder 00:00: mouth 3 (three) Medical times Branch daily with meals. phenytoin 2020-0 Yes [id number] 400mg Take 4 U nivers Extended 5-19 capsules ity of (DILANTIN) 00:00: by mouth [place] 100 mg 00 daily. Medical capsule Branch levothyroxi 2020-0 Yes [id number] 150ug Take 1 [facility] ne 150 mcg 5-19 tablet by ity of tablet 00:00: mouth 00 every Medical morning. Branch cholestyram 2020-0 Yes [id number] 2g Take 0.5 [facility] ine 4 gram 5-19 Packets by ity of powder 00:00: mouth (three) Medical times Branch daily with meals. phenytoin 2020-0 Yes [id number] 400mg Take 4 U nivers Extended 5-19 capsules ity of (DILANTIN) 00:00: by mouth [place] 100 mg 00 daily. Medical capsule Branch levothyroxi 2020-0 Yes [id number] 150ug Take 1 [facility] ne 150 mcg 5-19 tablet by ity of tablet 00:00: mouth every Medical morning. Branch cholestyram 2020-0 Yes [id number] 2g Take 0.5 [facility] ine 4 gram 5-19 Packets by ity of powder 00:00: mouth (three) Medical times Branch daily with meals. phenytoin 2020-0 Yes [id number] 400mg Take 4 U nivers Extended 5-19 capsules ity of (DILANTIN) 00:00: by mouth [place] 100 mg 00 daily. Medical capsule Branch levothyroxi 2020-0 Yes [id number] 150ug Take 1 [facility] ne 150 mcg 5-19 tablet by ity of tablet 00:00: mouth 00 every Medical morning. Branch cholestyram 2020-0 Yes [id number] 2g Take 0.5 [facility] ine 4 gram 5-19 Packets by ity of powder 00:00: mouth 3 (three) Medical times Branch daily with meals. phenytoin 2020-0 Yes [id number] 400mg Take 4 U nivers Extended 5-19 capsules ity of (DILANTIN) 00:00: by mouth [place] 100 mg 00 daily. Medical capsule Branch levothyroxi 2020-0 Yes [id number] 150ug Take 1 [facility] ne 150 mcg 5-19 tablet by ity of tablet 00:00: mouth 00 every Medical morning. Branch cholestyram 2020-0 Yes [id number] 2g Take 0.5 [facility] ine 4 gram 5-19 Packets by ity of powder 00:00: mouth 3 (three) Medical times Branch daily with meals. phenytoin 2020-0 Yes [id number] 400mg Take 4 U nivers Extended 5-19 capsules ity of (DILANTIN) 00:00: by mouth [place] 100 mg 00 daily. Medical capsule Branch levothyroxi 2020-0 Yes [id number] 150ug Take 1 [facility] ne 150 mcg 5-19 tablet by ity of tablet 00:00: mouth every Medical morning. Branch cholestyram 2020-0 Yes [id number] 2g Take 0.5 [facility] ine 4 gram 5-19 Packets by ity of powder 00:00: mouth (three) Medical times Branch daily with meals. phenytoin 2020-0 Yes [id number] 400mg Take 4 U nivers Extended 5-19 capsules ity of (DILANTIN) 00:00: by mouth [place] 100 mg 00 daily. Medical capsule Branch levothyroxi 2020-0 Yes [id number] 150ug Take 1 [facility] ne 150 mcg 5-19 tablet by ity of tablet 00:00: mouth every Medical morning. Branch cholestyram 2020-0 Yes [id number] 2g Take 0.5 [facility] ine 4 gram 5-19 Packets by ity of powder 00:00: mouth (three) Medical times Branch daily with meals. phenytoin 2020-0 Yes [id number] 400mg Take 4 U nivers Extended 5-19 capsules ity of (DILANTIN) 00:00: by mouth [place] 100 mg 00 daily. Medical capsule Branch levothyroxi 2020-0 Yes [id number] 150ug Take 1 [facility] ne 150 mcg 5-19 tablet by ity of tablet 00:00: mouth every Medical morning. Branch cholestyram 2020-0 Yes [id number] 2g Take 0.5 [facility] ine 4 gram 5-19 Packets by ity of powder 00:00: mouth 3 (three) Medical times Branch daily with meals. phenytoin 2020-0 Yes [id number] 400mg Take 4 [facility] nivers Extended 5-19 capsules ity of (DILANTIN) 00:00: by mouth [place] 100 mg 00 daily. Medical capsule Branch levothyroxi 2020-0 Yes [id number] 150ug Take 1 [facility] ne 150 mcg 5-19 tablet by ity of tablet 00:00: mouth [place] 00 every Medical morning. Branch cholestyram 2020-0 Yes [id number] 2g Take 0.5 [facility] ine 4 gram 5-19 Packets by ity of powder 00:00: mouth 3 [place] (three) Medical times Branch daily with meals. phenytoin 2020-0 Yes [id number] 400mg Take 4 [facility] nivers Extended 5-19 capsules ity of (DILANTIN) 00:00: by mouth [place] 100 mg 00 daily. Medical capsule Branch levothyroxi 2020-0 Yes [id number] 150ug Take 1 [facility] ne 150 mcg 5-19 tablet by ity of tablet 00:00: mouth [place] 00 every Medical morning. Branch cholestyram 2020-0 Yes [id number] 2g Take 0.5 [facility] ine 4 gram 5-19 Packets by ity of powder 00:00: mouth 3 (three) Medical times [place] daily with meals. phenytoin 2020-0 Yes [id number] 400mg Take 4 U nivers Extended 5-19 capsules ity of (DILANTIN) 00:00: by mouth [place] 100 mg 00 daily. Medical capsule Branch levothyroxi 2020-0 Yes [id number] 150ug Take 1 [facility] ne 150 mcg 5-19 tablet by ity of tablet 00:00: mouth [place] 00 every Medical morning. Branch cholestyram 2020-0 Yes [id number] 2g Take 0.5 [facility] ine 4 gram 5-19 Packets by ity of powder 00:00: mouth 3 (three) Medical times [place] daily with meals. phenytoin 2020-0 Yes [id number] 400mg Take 4 U nivers Extended 5-19 capsules ity of (DILANTIN) 00:00: by mouth [place] 100 mg 00 daily. Medical capsule Branch levothyroxi 2020-0 Yes [id number] 150ug Take 1 [facility] ne 150 mcg 5-19 tablet by ity of tablet 00:00: mouth [place] 00 every Medical morning. Branch cholestyram 2020-0 Yes [id number] 2g Take 0.5 [facility] ine 4 gram 5-19 Packets by ity of powder 00:00: mouth 3 (three) Medical times Branch daily with meals. phenytoin 2020-0 Yes [id number] 400mg Take 4 U nivers Extended 5-19 capsules ity of (DILANTIN) 00:00: by mouth [place] 100 mg 00 daily. Medical capsule Branch levothyroxi 2020-0 Yes [id number] 150ug Take 1 [facility] ne 150 mcg 5-19 tablet by ity of tablet 00:00: mouth [place] 00 every Medical morning. Branch cholestyram 2020-0 Yes [id number] 2g Take 0.5 [facility] ine 4 gram 5-19 Packets by ity of powder 00:00: mouth 3 (three) Medical times Branch daily with meals. phenytoin 2020-0 Yes [id number] 400mg Take 4 U nivers Extended 5-19 capsules ity of (DILANTIN) 00:00: by mouth [place] 100 mg 00 daily. Medical capsule Branch levothyroxi 2020-0 Yes [id number] 150ug Take 1 [facility] ne 150 mcg 5-19 tablet by ity of tablet 00:00: mouth [place] 00 every Medical morning. Branch cholestyram 2020-0 Yes [id number] 2g Take 0.5 [facility] ine 4 gram 5-19 Packets by ity of powder 00:00: mouth (three) Medical times Branch daily with meals. nystatin 2020-0 Yes [id number] Apply to U nivers 100,000 5-19 area(s) 2 ity of unit/gram 00:00: (two) [place] powder 00 times Medical daily. Branch phenytoin 2020-0 Yes [id number] 400mg Take 4 U nivers Extended 5-19 capsules ity of (DILANTIN) 00:00: by mouth [place] 100 mg 00 daily. Medical capsule Branch FLUoxetine 2020-0 Yes 60mg Take 3 [facility] 20 mg 5-19 capsules ity of capsule 00:00: by mouth [place] 00 daily. Medical Branch levothyroxi 2020-0 Yes [id number] 150ug Take 1 [facility] ne 150 mcg 5-19 tablet by ity of tablet 00:00: mouth [place] 00 every Medical morning. Branch cholestyram 2020-0 Yes [id number] 2g Take 0.5 [facility] ine 4 gram 5-19 Packets by ity of powder 00:00: mouth 3 (three) Medical times Branch daily with meals. LORazepam 1 2020-0 Yes [id number] 1mg Take 1 [facility] mg tablet 5-19 tablet by ity o f 00:00: mouth once [place] 00 daily as Medical needed for Branch Anxiety or Agitation. nystatin 2020-0 Yes [id number] Apply to [facility] 100,000 5-19 area(s) 2 ity of unit/gram 00:00: (two) [place] powder 00 times Medical daily. Branch phenytoin 2020-0 Yes [id number] 400mg Take 4 U nivers Extended 5-19 capsules ity of (DILANTIN) 00:00: by mouth [place] 100 mg 00 daily. Medical capsule Branch levothyroxi 2020-0 Yes [id number] 150ug Take 1 [facility] ne 150 mcg 5-19 tablet by ity of tablet 00:00: mouth [place] 00 every Medical morning. Branch cholestyram 2020-0 Yes [id number] 2g Take 0.5 [facility] ine 4 gram 5-19 Packets by ity of powder 00:00: mouth 3 (three) Medical times [place] daily with meals. LORazepam 1 2020-0 Yes [id number] 1mg Take 1 [facility] mg tablet 5-19 tablet by ity o f 00:00: mouth once [place] 00 daily as Medical needed for Branch Anxiety or Agitation. nystatin 2020-0 Yes [id number] Apply to [facility] 100,000 5-19 area(s) 2 ity of unit/gram 00:00: (two) [place] powder 00 times Medical daily. Branch phenytoin 2020-0 Yes [id number] 400mg Take 4 U nivers Extended 5-19 capsules ity of (DILANTIN) 00:00: by mouth [place] 100 mg 00 daily. Medical capsule Branch levothyroxi 2020-0 Yes [id number] 150ug Take 1 [facility] ne 150 mcg 5-19 tablet by ity of tablet 00:00: mouth [place] 00 every Medical morning. Branch cholestyram 2020-0 Yes [id number] 2g Take 0.5 [facility] ine 4 gram 5-19 Packets by ity of powder 00:00: mouth 3 (three) Medical times [place] daily with meals. nystatin 2020-0 Yes [id number] [facility] 100,000 5-19 area(s) 2 ity of unit/gram 00:00: (two) [place] powder 00 times Medical daily. Branch phenytoin 2020-0 Yes [id number] 400mg Take 4 U nivers Extended 5-19 capsules ity of (DILANTIN) 00:00: by mouth [place] 100 mg 00 daily. Medical capsule Branch levothyroxi 2020-0 Yes [id number] 150ug Take 1 [facility] ne 150 mcg 5-19 tablet by ity of tablet 00:00: mouth [place] 00 every Medical morning. Branch cholestyram 2020-0 Yes [id number] 2g Take 0.5 [facility] ine 4 gram 5-19 Packets by ity of powder 00:00: mouth 3 (three) Medical times Branch daily with meals. nystatin 2020-0 Yes [id number] Apply to [facility] nivers 100,000 5-19 area(s) 2 ity of unit/gram 00:00: (two) [place] powder 00 times Medical daily. Branch phenytoin 2020-0 Yes [id number] 400mg Take 4 U nivers Extended 5-19 capsules ity of (DILANTIN) 00:00: by mouth [place] 100 mg 00 daily. Medical capsule Branch levothyroxi 2020-0 Yes [id number] 150ug Take 1 [facility] ne 150 mcg 5-19 tablet by ity of tablet 00:00: mouth 00 every Medical morning. Branch cholestyram 2020-0 Yes [id number] 2g Take 0.5 [facility] ine 4 gram 5-19 Packets by ity of powder 00:00: mouth 3 (three) Medical times [place] daily with meals. nystatin 2020-0 Yes [id number] Apply to [facility] nivers 100,000 5-19 area(s) 2 ity of unit/gram 00:00: (two) [place] powder 00 times Medical daily. Branch phenytoin 2020-0 Yes [id number] 400mg Take 4 U nivers Extended 5-19 capsules ity of (DILANTIN) 00:00: by mouth [place] 100 mg 00 daily. Medical capsule Branch levothyroxi 2020-0 Yes [id number] 150ug Take 1 [facility] ne 150 mcg 5-19 tablet by ity of tablet 00:00: mouth [place] 00 every Medical morning. Branch cholestyram 2020-0 Yes [id number] 2g Take 0.5 [facility] ine 4 gram 5-19 Packets by ity of powder 00:00: mouth 3 (three) Medical times Branch daily with meals. nystatin 2020-0 Yes [id number] Apply to [facility] nivers 100,000 5-19 area(s) 2 ity of unit/gram 00:00: (two) [place] powder 00 times Medical daily. Branch phenytoin 2020-0 Yes [id number] 400mg Take 4 [facility] nivers Extended 5-19 capsules ity of (DILANTIN) 00:00: by mouth [place] 100 mg 00 daily. Medical capsule Branch levothyroxi 2020-0 Yes [id number] 150ug Take 1 [facility] ne 150 mcg 5-19 tablet by ity of tablet 00:00: mouth [place] 00 every Medical morning. Branch cholestyram 2020-0 Yes [id number] 2g Take 0.5 [facility] ine 4 gram 5-19 Packets by ity of powder 00:00: mouth 3 (three) Medical times Branch daily with meals. phenytoin 2020-0 Yes [id number] 400mg Take 4 U nivers Extended 5-19 capsules ity of (DILANTIN) 00:00: by mouth [place] 100 mg 00 daily. Medical capsule Branch levothyroxi 2019-0 Yes [id number] 150ug Take 1 [facility] ne 150 mcg 5-19 tablet by ity of tablet 00:00: mouth every Medical morning. Branch cholestyram 2019-0 Yes [id number] 2g Take 0.5 [facility] ine 4 gram 5-19 Packets by ity of powder 00:00: mouth 3 (three) Medical times [place] daily with meals. phenytoin 2019-0 Yes [id number] 400mg Take 4 [facility] nivers Extended 5-19 capsules ity of (DILANTIN) 00:00: by mouth [place] 100 mg 00 daily. Medical capsule Branch levothyroxi 2020-0 Yes [id number] 150ug Take 1 [facility] ne 150 mcg 5-19 tablet by ity of tablet 00:00: mouth 00 every Medical morning. Branch cholestyram 2020-0 Yes [id number] 2g Take 0.5 [facility] ine 4 gram 5-19 Packets by ity of powder 00:00: mouth 3 (three) Medical times [place] daily with meals. phenytoin 2020-0 Yes [id number] 400mg Take 4 U nivers Extended 5-19 capsules ity of (DILANTIN) 00:00: by mouth [place] 100 mg 00 daily. Medical capsule Branch levothyroxi 2019-0 Yes [id number] 150ug Take 1 [facility] ne 150 mcg 5-19 tablet by ity of tablet 00:00: mouth every Medical morning. Branch cholestyram 2020-0 Yes [id number] 2g Take 0.5 [facility] ine 4 gram 5-19 Packets by ity of powder 00:00: mouth 3 (three) Medical times Branch daily with meals. phenytoin 2020-0 Yes [id number] 400mg Take 4 U nivers Extended 5-19 capsules ity of (DILANTIN) 00:00: by mouth [place] 100 mg 00 daily. Medical capsule Branch levothyroxi 2020-0 Yes [id number] 150ug Take 1 [facility] ne 150 mcg 5-19 tablet by ity of tablet 00:00: mouth every Medical morning. Branch cholestyram 2020-0 Yes [id number] 2g Take 0.5 [facility] ine 4 gram 5-19 Packets by ity of powder 00:00: mouth (three) Medical times [place] daily with meals. phenytoin 2020-0 Yes [id number] 400mg Take 4 U nivers Extended 5-19 capsules ity of (DILANTIN) 00:00: by mouth [place] 100 mg 00 daily. Medical capsule Branch levothyroxi 2020-0 Yes [id number] 150ug Take 1 [facility] ne 150 mcg 5-19 tablet by ity of tablet 00:00: mouth every Medical morning. Branch cholestyram 2020-0 Yes [id number] 2g Take 0.5 [facility] ine 4 gram 5-19 Packets by ity of powder 00:00: mouth (three) Medical times [place] daily with meals. phenytoin 2020-0 Yes [id number] 400mg Take 4 U nivers Extended 5-19 capsules ity of (DILANTIN) 00:00: by mouth [place] 100 mg 00 daily. Medical capsule Branch levothyroxi 2020-0 Yes [id number] 150ug Take 1 [facility] ne 150 mcg 5-19 tablet by ity of tablet 00:00: mouth every Medical morning. Branch cholestyram 2020-0 Yes [id number] 2g Take 0.5 [facility] ine 4 gram 5-19 Packets by ity of powder 00:00: mouth (three) Medical times [place] daily with meals. phenytoin 2020-0 Yes [id number] 400mg Take 4 U nivers Extended 5-19 capsules ity of (DILANTIN) 00:00: by mouth [place] 100 mg 00 daily. Medical capsule Branch levothyroxi 2020-0 Yes [id number] 150ug Take 1 [facility] ne 150 mcg 5-19 tablet by ity of tablet 00:00: mouth every Medical morning. Branch cholestyram 2020-0 Yes [id number] 2g Take 0.5 [facility] ine 4 gram 5-19 Packets by ity of powder 00:00: mouth 3 (three) Medical times Branch daily with meals. phenytoin 2020-0 Yes [id number] 400mg Take 4 U nivers Extended 5-19 capsules ity of (DILANTIN) 00:00: by mouth [place] 100 mg 00 daily. Medical capsule Branch levothyroxi 2020-0 Yes [id number] 150ug Take 1 [facility] ne 150 mcg 5-19 tablet by ity of tablet 00:00: mouth every Medical morning. Branch cholestyram 2020-0 Yes [id number] 2g Take 0.5 [facility] ine 4 gram 5-19 Packets by ity of powder 00:00: mouth (three) Medical times Branch daily with meals. phenytoin 2020-0 Yes [id number] 400mg Take 4 U nivers Extended 5-19 capsules ity of (DILANTIN) 00:00: by mouth [place] 100 mg 00 daily. Medical capsule Branch levothyroxi 2020-0 Yes [id number] 150ug Take 1 [facility] ne 150 mcg 5-19 tablet by ity of tablet 00:00: mouth every Medical morning. Branch cholestyram 2020-0 Yes [id number] 2g Take 0.5 [facility] ine 4 gram 5-19 Packets by ity of powder 00:00: mouth (three) Medical times Branch daily with meals. phenytoin 2020-0 Yes [id number] 400mg Take 4 U nivers Extended 5-19 capsules ity of (DILANTIN) 00:00: by mouth [place] 100 mg 00 daily. Medical capsule Branch levothyroxi 2020-0 Yes [id number] 150ug Take 1 [facility] ne 150 mcg 5-19 tablet by ity of tablet 00:00: mouth every Medical morning. Branch cholestyram 2020-0 Yes [id number] 2g Take 0.5 [facility] ine 4 gram 5-19 Packets by ity of powder 00:00: mouth (three) Medical times Branch daily with meals. phenytoin 2020-0 Yes [id number] 400mg Take 4 U nivers Extended 5-19 capsules ity of (DILANTIN) 00:00: by mouth [place] 100 mg 00 daily. Medical capsule Branch levothyroxi 2020-0 Yes [id number] 150ug Take 1 [facility] ne 150 mcg 5-19 tablet by ity of tablet 00:00: mouth [place] 00 every Medical morning. Branch cholestyram 2020-0 Yes [id number] 2g Take 0.5 [facility] ine 4 gram 5-19 Packets by ity of powder 00:00: mouth 3 (three) Medical times Branch daily with meals. phenytoin 2020-0 Yes [id number] 400mg Take 4 U nivers Extended 5-19 capsules ity of (DILANTIN) 00:00: by mouth [place] 100 mg 00 daily. Medical capsule Branch levothyroxi 2020-0 Yes [id number] 150ug Take 1 [facility] ne 150 mcg 5-19 tablet by ity of tablet 00:00: mouth [place] every Medical morning. Branch cholestyram 2020-0 Yes [id number] 2g Take 0.5 [facility] ine 4 gram 5-19 Packets by ity of powder 00:00: mouth 3 (three) Medical times Branch daily with meals. phenytoin 2020-0 Yes [id number] 400mg Take 4 U nivers Extended 5-19 capsules ity of (DILANTIN) 00:00: by mouth [place] 100 mg 00 daily. Medical capsule Branch levothyroxi 2020-0 Yes [id number] 150ug Take 1 [facility] ne 150 mcg 5-19 tablet by ity of tablet 00:00: mouth [place] every Medical morning. Branch cholestyram 2020-0 Yes [id number] 2g Take 0.5 [facility] ine 4 gram 5-19 Packets by ity of powder 00:00: mouth 3 (three) Medical times Branch daily with meals. phenytoin 2020-0 Yes [id number] 400mg Take 4 U nivers Extended 5-19 capsules ity of (DILANTIN) 00:00: by mouth [place] 100 mg 00 daily. Medical capsule Branch levothyroxi 2020-0 Yes [id number] 150ug Take 1 [facility] ne 150 mcg 5-19 tablet by ity of tablet 00:00: mouth [place] 00 every Medical morning. Branch cholestyram 2020-0 Yes [id number] 2g Take 0.5 [facility] ine 4 gram 5-19 Packets by ity of powder 00:00: mouth 3 (three) Medical times Branch daily with meals. phenytoin 2020-0 Yes [id number] 400mg Take 4 U nivers Extended 5-19 capsules ity of (DILANTIN) 00:00: by mouth [place] 100 mg 00 daily. Medical capsule Branch levothyroxi 2019-0 Yes [id number] 150ug Take 1 [facility] ne 150 mcg 5-19 tablet by ity of tablet 00:00: mouth every Medical morning. Branch cholestyram 2020-0 Yes [id number] 2g Take 0.5 [facility] ine 4 gram 5-19 Packets by ity of powder 00:00: mouth (three) Medical times Branch daily with meals. phenytoin 2020-0 Yes [id number] 400mg Take 4 U nivers Extended 5-19 capsules ity of (DILANTIN) 00:00: by mouth [place] 100 mg 00 daily. Medical capsule Branch levothyroxi 2019-0 Yes [id number] 150ug Take 1 [facility] ne 150 mcg 5-19 tablet by ity of tablet 00:00: mouth every Medical morning. Branch cholestyram 2019-0 Yes [id number] 2g Take 0.5 [facility] ine 4 gram 5-19 Packets by ity of powder 00:00: mouth (three) Medical times Branch daily with meals. phenytoin 2020-0 Yes [id number] 400mg Take 4 U nivers Extended 5-19 capsules ity of (DILANTIN) 00:00: by mouth [place] 100 mg 00 daily. Medical capsule Branch levothyroxi 2020-0 Yes [id number] 150ug Take 1 [facility] ne 150 mcg 5-19 tablet by ity of tablet 00:00: mouth every Medical morning. Branch cholestyram 2020-0 Yes [id number] 2g Take 0.5 [facility] ine 4 gram 5-19 Packets by ity of powder 00:00: mouth (three) Medical times Branch daily with meals. phenytoin 2020-0 Yes [id number] 400mg Take 4 U nivers Extended 5-19 capsules ity of (DILANTIN) 00:00: by mouth [place] 100 mg 00 daily. Medical capsule Branch levothyroxi 2020-0 Yes [id number] 150ug Take 1 [facility] ne 150 mcg 5-19 tablet by ity of tablet 00:00: mouth [place] 00 every Medical morning. Branch cholestyram 2020-0 Yes [id number] 2g Take 0.5 [facility] ine 4 gram 5-19 Packets by ity of powder 00:00: mouth 3 (three) Medical times Branch daily with meals. phenytoin 2020-0 Yes [id number] 400mg Take 4 U nivers Extended 5-19 capsules ity of (DILANTIN) 00:00: by mouth [place] 100 mg 00 daily. Medical capsule Branch levothyroxi 2020-0 Yes [id number] 150ug Take 1 [facility] ne 150 mcg 5-19 tablet by ity of tablet 00:00: mouth 00 every Medical morning. Branch cholestyram 2019-0 Yes [id number] 2g Take 0.5 [facility] ine 4 gram 5-19 Packets by ity of powder 00:00: mouth 3 (three) Medical times Branch daily with meals. phenytoin 2020-0 Yes [id number] 400mg Take 4 U nivers Extended 5-19 capsules ity of (DILANTIN) 00:00: by mouth [place] 100 mg 00 daily. Medical capsule Branch levothyroxi 2019-0 Yes [id number] 150ug Take 1 [facility] ne 150 mcg 5-19 tablet by ity of tablet 00:00: mouth 00 every Medical morning. Branch cholestyram 2019-0 Yes [id number] 2g Take 0.5 [facility] ine 4 gram 5-19 Packets by ity of powder 00:00: mouth 3 (three) Medical times Branch daily with meals. phenytoin 2020-0 Yes [id number] 400mg Take 4 U nivers Extended 5-19 capsules ity of (DILANTIN) 00:00: by mouth [place] 100 mg 00 daily. Medical capsule Branch levothyroxi 2019-0 Yes [id number] 150ug Take 1 [facility] ne 150 mcg 5-19 tablet by ity of tablet 00:00: mouth 00 every Medical morning. Branch cholestyram 2019-0 Yes [id number] 2g Take 0.5 [facility] ine 4 gram 5-19 Packets by ity of powder 00:00: mouth 3 (three) Medical times Branch daily with meals. nystatin 2019-0 2020- No [id number] Apply to [facility] 100,000 5-19 08-18 area(s) 2 ity of unit/gram 00:00: 00:00 (two) [place] powder 00 :00 times Medical daily. Branch nystatin 2019- No [id number] Apply to [facility] 100,000 09-01 area(s) 2 ity of unit/gram 00:00: 00:00 (two) [place] powder 00 :00 times Medical daily. Branch LORazepam 1 2019- No [id number] 1mg Take 1 [facility] mg tablet 09-01-16 tablet by ity of 00:00: 00:00 mouth once [place] 00 :00 daily as Medical needed for Branch Anxiety or Agitation. LORazepam 1 2019- No [id number] 1mg Take 1 [facility] mg tablet 09-01-16 tablet by ity of 00:00: 00:00 mouth once [place] 00 :00 daily as Medical needed for Branch Anxiety or Agitation. FLUoxetine 2019- No 60mg Take 3 [facility] ers 20 mg 09-01-08 capsules ity of capsule 00:00: 00:00 by mouth [place] 00 :00 daily. Medical Branch FLUoxetine 2019- No 60mg Take 3 [facility] ers 20 mg 09-01- capsules ity of capsule 00:00: 00:00 by mouth [place] 00 :00 daily. Medical Branch pantoprazol 2019- No [id number] 40mg Take 1 [facility] e 40 mg EC 09-01-21 tablet by ity of tablet 00:00: 00:00 mouth once [place] 00 :00 daily as Medical needed for Branch Indigestio n. pantoprazol 2019- No [id number] 40mg Take 1 [facility] e 40 mg EC 5-21 tablet by ity of tablet 00:00: 00:00 mouth once [place] 00 :00 daily as Medical needed for Branch Indigestio n. LORazepam 1 2019- No [id number] 1mg Take 1 [facility] mg tablet 09-01-19 tablet by ity of 00:00: 00:00 mouth [place] 00 :00 every Medical other day. Branch PANTOPRAZOL 2019-0 Yes [id number] TAKE 1 [facility] E 40 mg EC 5-12 TABLET BY ity of tablet 00:00: MOUTH [place] 00 TWICE A Medical DAY Branch PANTOPRAZOL 2019- Yes [id number] TAKE 1 [facility] E 40 mg EC 5-12 TABLET BY ity of tablet 00:00: MOUTH [place] 00 TWICE A Medical DAY Branch PANTOPRAZOL 2019-0 2020- No [id number] TAKE 1 [facility] E 40 mg EC 5-12 05-19 TABLET BY ity of tablet 00:00: 00:00 MOUTH [place] 00 :00 TWICE A Medical DAY Branch levothyroxi 2019-0 Yes [id number] 150ug Take 1 [facility] ne 150 mcg 4-27 tablet by ity of tablet 00:00: mouth [place] 00 every Medical morning. Branch levothyroxi 2019-0 Yes [id number] 150ug Take 1 [facility] ne 150 mcg 4-27 tablet by ity of tablet 00:00: mouth [place] 00 every Medical morning. Branch levothyroxi 2019-0 2020- No [id number] 150ug Take 1 [facility] ne 150 mcg 4-27 05-19 tablet by ity of tablet 00:00: 00:00 mouth [place] 00 :00 every Medical morning. Branch acetaminoph 2019-0 Yes [id number] .5{tbl} Take 0.5-1 [facility] en-codeine 4-24 [id number] tablets by it y of (TYLENOL-CO 00:00: mouth [place] DEINE #3) 00 every 4 Medical 300-30 mg (four) Branch tablet hours as needed (pain). Pt medicaid is under her maiden name Cyndie Duvall acetaminoph 2019-0 Yes [id number] .5{tbl} Take 0.5-1 [facility] en-codeine 4-24 [id number] tablets by it y of (TYLENOL-CO 00:00: mouth [place] DEINE #3) 00 every 4 Medical 300-30 mg (four) Branch tablet hours as needed (pain). Pt medicaid is under her maiden name Cyndie Duvall acetaminoph 2019-0 Yes [id number] .5{tbl} Take 0.5-1 [facility] en-codeine 4-24 [id number] tablets by it y of (TYLENOL-CO 00:00: mouth [place] DEINE #3) 00 every 4 Medical 300-30 mg (four) Branch tablet hours as needed (pain). Pt medicaid is under her maiden name Cyndie Duvall acetaminoph 2019-0 Yes [id number] .5{tbl} Take 0.5-1 [facility] en-codeine 4-24 [id number] tablets by it y of (TYLENOL-CO 00:00: mouth [place] DEINE #3) 00 every 4 Medical 300-30 mg (four) Branch tablet hours as needed (pain). Pt medicaid is under her maiden name Cyndie cruzaminoph 2019-0 Yes [id number] .5{tbl} Take 0.5-1 [facility] en-codeine 4-24 [id number] tablets by it y of (TYLENOL-CO 00:00: mouth [place] DEINE #3) 00 every 4 Medical 300-30 mg (four) Branch tablet hours as needed (pain). Pt medicaid is under her maiden name Cyndie Duvall acetaminoph 2019-0 Yes [id number] .5{tbl} Take 0.5-1 [facility] en-codeine 4-24 [id number] tablets by it y of (TYLENOL-CO 00:00: mouth [place] DEINE #3) 00 every 4 Medical 300-30 mg (four) Branch tablet hours as needed (pain). Pt medicaid is under her maiden name Cyndie cruzaminoph 2019-0 Yes [id number] .5{tbl} Take 0.5-1 [facility] en-codeine 4-24 [id number] tablets by it y of (TYLENOL-CO 00:00: mouth [place] DEINE #3) 00 every 4 Medical 300-30 mg (four) Branch tablet hours as needed (pain). Pt medicaid is under her maiden name Cyndie cruzaminoph 2019-0 Yes [id number] .5{tbl} Take 0.5-1 [facility] en-codeine 4-24 [id number] tablets by it y of (TYLENOL-CO 00:00: mouth [place] DEINE #3) 00 every 4 Medical 300-30 mg (four) Branch tablet hours as needed (pain). Pt medicaid is under her maiden name Cyndie Duvall acetaminoph 2019-0 Yes [id number] .5{tbl} Take 0.5-1 [facility] en-codeine 4-24 [id number] tablets by it y of (TYLENOL-CO 00:00: mouth [place] DEINE #3) 00 every 4 Medical 300-30 mg (four) Branch tablet hours as needed (pain). Pt medicaid is under her maiden name Cyndie Duvall acetaminoph 2019-0 2020- No [id number] .5{tbl} Take 0.5-1 [facility] en-codeine -12-01 [id number] tablets by i ty of (TYLENOL-CO 00:00: 00:00 mouth [place] DEINE #3[place] 00 :00 every 4 Medical 300-30 mg (four) Branch tablet hours as needed (pain). Pt medicaid is under her maiden name Cyndie Duvall acetaminoph 2020-0 2020- No [id number] .5{tbl} Take 0.5-1 [facility] en-codeine 08-07 [id number] tablets by i ty of (TYLENOL-CO 00:00: 00:00 mouth [place] DEINE #3) 00 :00 every 4 Medical 300-30 mg (four) Branch tablet hours as needed (pain). Pt medicaid is under her maiden name Cyndie Duvall clotrimazol 2020-0 Yes [id number] Apply to [facility] e 1 % 4-21 area(s) 2 ity of topical 00:00: (two) [place] cream 00 times Medical daily. Branch clotrimazol 2020-0 Yes [id number] Apply to [facility] e 1 % 4-21 area(s) 2 ity of topical 00:00: (two) [place] cream 00 times Medical daily. Branch clotrimazol 2020-0 Yes [id number] Apply to [facility] e 1 % 4-21 area(s) 2 ity of topical 00:00: (two) [place] cream 00 times Medical daily. Branch clotrimazol 2020-0 Yes [id number] Apply to [facility] e 1 % 4-21 area(s) 2 ity of topical 00:00: (two) [place] cream 00 times Medical daily. Branch clotrimazol 2020-0 Yes [id number] Apply to [facility] e 1 % 4-21 area(s) 2 ity of topical 00:00: (two) [place] cream 00 times Medical daily. Branch clotrimazol 2020-0 Yes [id number] Apply to [facility] e 1 % 4-21 area(s) 2 ity of topical 00:00: (two) [place] cream 00 times Medical daily. Branch clotrimazol 2020-0 Yes [id number] Apply to [facility] e 1 % 4-21 area(s) 2 ity of topical 00:00: (two) [place] cream 00 times Medical daily. Branch clotrimazol 2020-0 2020- No [id number] Apply to [facility] e 1 % 4-21 05-19 area(s) 2 ity of topical 00:00: 00:00 (two) [place] cream 00 :00 times Medical daily. Branch ketoconazol 2020-0 Yes [id number] Apply to [facility] e 2 % cream 4-17 area(s) 2 ity of 00:00: (two) [place] 00 times Medical daily. Branch ketoconazol 2020-0 Yes [id number] Apply to [facility] e 2 % cream 4-17 area(s) 2 ity of 00:00: (two) [place] 00 times Medical daily. Branch ketoconazol 2020-0 2020- No [id number] Apply to [facility] e 2 % cream 4-17 04-21 area(s) 2 it y of 00:00: 00:00 (two) [place] 00 :00 times Medical daily. Branch ketoconazol 2020-0 2020- No [id number] Apply to [facility] e 2 % cream 4-17 04-21 area(s) 2 it y of 00:00: 00:00 (two) [place] 00 :00 times Medical daily. Branch LORazepam 1 2019-0 Yes [id number] 1mg Take 1 [facility] mg tablet 4-07 tablet by ity o f 00:00: mouth 2 (two) Medical times per Branch week for Anxiety or Agitation. LORazepam 1 2020-0 Yes [id number] 1mg Take 1 [facility] mg tablet 4-07 tablet by ity o f 00:00: mouth 2 (two) Medical times per Branch week for Anxiety or Agitation. LORazepam 1 2020-0 Yes [id number] 1mg Take 1 [facility] mg tablet 4-07 tablet by ity o f 00:00: mouth 2 (two) Medical times per Branch week for Anxiety or Agitation. LORazepam 1 2020-0 Yes [id number] 1mg Take 1 [facility] mg tablet 4-07 tablet by ity o f 00:00: mouth 2 (two) Medical times per Branch week for Anxiety or Agitation. LORazepam 1 2020-0 Yes [id number] 1mg Take 1 [facility] mg tablet 4-07 tablet by ity o f 00:00: mouth 2 (two) Medical times per Branch week for Anxiety or Agitation. LORazepam 1 2020-0 Yes [id number] 1mg Take 1 [facility] mg tablet 4-07 tablet by ity o f 00:00: mouth 2 (two) Medical times per Branch week for Anxiety or Agitation. LORazepam 1 2020-0 Yes [id number] 1mg Take 1 [facility] mg tablet 4-07 tablet by ity o f 00:00: mouth 2 (two) Medical times per Branch week for Anxiety or Agitation. LORazepam 1 2020-0 Yes [id number] 1mg Take 1 [facility] mg tablet 4-07 tablet by ity o f 00:00: mouth 2 (two) Medical times per Branch week for Anxiety or Agitation. LORazepam 1 2020-0 Yes [id number] 1mg Take 1 [facility] mg tablet 4-07 tablet by ity o f 00:00: mouth 2 (two) Medical times per Branch week for Anxiety or Agitation. LORazepam 1 2020-0 Yes [id number] 1mg Take 1 [facility] mg tablet 4-07 tablet by ity o f 00:00: mouth 2 (two) Medical times per Branch week for Anxiety or Agitation. LORazepam 1 2020-0 Yes [id number] 1mg Take 1 [facility] mg tablet 4-07 tablet by ity o f 00:00: mouth 2 (two) Medical times per Branch week for Anxiety or Agitation. LORazepam 1 2020-0 Yes [id number] 1mg Take 1 [facility] mg tablet 4-07 tablet by ity o f 00:00: mouth 2 (two) Medical times per Branch week for Anxiety or Agitation. LORazepam 1 2019-0 2020- No [id number] 1mg Take 1 [facility] mg tablet 4-07 05-19 tablet by ity of 00:00: 00:00 mouth 2 00 :00 (two) Medical times per Branch [...] [place] ORAL) 55 bedtime. Medical Branch pantoprazol 0 2020- No 40mg Take 40 mg [facility] e 40 mg EC 3-24 03-24 by mouth 2 it y of tablet 13:52: 00:00 (two) [place] 30 :00 times Medical daily. Branch phenytoin 2019-0 Yes [id number] 400mg Take 4 [facility] nivers Extended 3-24 capsules ity of (DILANTIN) 00:00: by mouth [place] 100 mg 00 daily. Medical capsule Branch FLUoxetine 2019-0 Yes 40mg Take 1 [facility] rs (PROZAC) 40 3-24 capsule by it y of mg capsule 00:00: mouth [place] 00 daily. Medical Branch cholestyram 2019-0 Yes [id number] 2g Take 0.5 [facility] ine 4 gram 3-24 Packets by ity of powder 00:00: mouth 3 [place] 00 (three) Medical times Branch daily with meals. clonazePAM 2019-0 Yes [id number] 1mg Take 1 [facility] 1 mg tablet 3-24 tablet by ity of 00:00: mouth once [place] 00 daily as Medical needed Branch (panic attack). pantoprazol 2020-0 Yes [id number] 40mg Take 1 [facility] e 40 mg EC 3-24 tablet by ity of tablet 00:00: mouth 2 [place] 00 (two) Medical times Branch daily. famotidine 2020-0 Yes [id number] 20mg Take 1 [facility] (PEPCID AC) 3-24 tablet by ity of 20 mg 00:00: mouth 2 [place] tablet 00 (two) Medical times Branch daily. phenytoin 2020-0 Yes [id number] 400mg Take 4 [facility] nivers Extended 3-24 capsules ity of (DILANTIN) 00:00: by mouth [place] 100 mg 00 daily. Medical capsule Branch FLUoxetine 2020-0 Yes 40mg Take 1 [facility] rs (PROZAC) 40 3-24 capsule by it y of mg capsule 00:00: mouth [place] 00 daily. [facility] cholestyram 2020-0 Yes [id number] 2g Take 0.5 [facility] 4 gram 3-24 Packets by [facility] of powder 00:00: mouth 3 [place] 00 (three) Medical times Branch daily with meals. clonazePAM 2020-0 Yes [id number] 1mg Take 1 [facility] 1 mg tablet 3-24 tablet by [facility] of 00:00: mouth once 00 daily as Medical needed Branch (panic attack). pantoprazol 2020-0 Yes [id number] 40mg Take 1 [facility] e 40 mg EC 3-24 tablet by [facility] of tablet 00:00: mouth 2 [place] 00 (two) Medical times Branch daily. famotidine 2020-0 Yes [id number] 20mg Take 1 [facility] (PEPCID AC) 3-24 tablet by [facility] of 20 mg 00:00: mouth 2 [place] tablet 00 (two) Medical times Branch daily. phenytoin 2020-0 Yes [id number] 400mg Take 4 [facility] Extended 3-24 capsules ity of (DILANTIN) 00:00: by mouth [place] 100 mg 00 daily. Medical capsule [facility] FLUoxetine 2020-0 Yes 40mg Take 1 [facility] (PROZAC) 40 3-24 capsule by it y of mg capsule 00:00: mouth [place] 00 daily. Medical [facility] cholestyram 2020-0 Yes [id number] 2g Take 0.5 [facility] 4 gram 3-24 Packets by [facility] of powder 00:00: mouth 3 [place] 00 (three) Medical times Branch daily with meals. clonazePAM 2020-0 Yes [id number] 1mg Take 1 [facility] 1 mg tablet 3-24 tablet by ity of 00:00: mouth once [place] 00 daily as Medical needed Branch (panic attack). pantoprazol 2020-0 Yes [id number] 40mg Take 1 [facility] e 40 mg EC 3-24 tablet by ity of tablet 00:00: mouth 2 [place] 00 (two) Medical times Branch daily. famotidine 2020-0 Yes [id number] 20mg Take 1 [facility] (PEPCID AC) 3-24 tablet by [facility]y of 20 mg 00:00: mouth 2 [place] tablet 00 (two) Medical times Branch daily. phenytoin 2020-0 Yes [id number] 400mg Take 4 [facility] Extended 3-24 capsules ity of (DILANTIN) 00:00: by mouth [place] 100 mg 00 daily. Medical capsule [facility] FLUoxetine 2020-0 Yes 40mg Take 1 [facility] (PROZAC) 40 3-24 capsule by it y of mg capsule 00:00: mouth [place] 00 daily. Medical [facility] cholestyram 2020-0 Yes [id number] 2g Take 0.5 [facility] 4 gram 3-24 Packets by it[facility] of powder 00:00: mouth 3 (three) Medical times Branch daily with meals. clonazePAM 2020-0 Yes [id number] 1mg Take 1 [facility] 1 mg tablet 3-24 tablet by ity of 00:00: mouth once 00 daily as Medical needed Branch (panic attack). pantoprazol 2020-0 Yes [id number] 40mg Take 1 [facility] e 40 mg EC 3-24 tablet by [facility] of tablet 00:00: mouth 2 [place] 00 (two) Medical times Branch daily. famotidine 2020-0 Yes [id number] 20mg Take 1 [facility] (PEPCID AC) 3-24 tablet by ity of 20 mg 00:00: mouth 2 [place] tablet 00 (two) Medical times Branch daily. phenytoin 2020-0 Yes [id number] 400mg Take 4 [facility] Extended 3-24 capsules ity of (DILANTIN) 00:00: by mouth [place] 100 mg 00 daily. Medical capsule [facility] FLUoxetine 2020-0 Yes 40mg Take 1 [facility] (PROZAC) 40 3-24 capsule by it y of mg capsule 00:00: mouth [place] 00 daily. Medical [facility] cholestyram 2020-0 Yes [id number] 2g Take 0.5 [facility] 4 gram 3-24 Packets by it[facility] of powder 00:00: mouth 3 (three) Medical times Branch daily with meals. clonazePAM 2020-0 Yes [id number] 1mg Take 1 [facility] 1 mg tablet 3-24 tablet by ity of 00:00: mouth once 00 daily as Medical needed Branch (panic attack). pantoprazol 2020-0 Yes [id number] 40mg Take 1 [facility] e 40 mg EC 3-24 tablet by ity of tablet 00:00: mouth 2 [place] 00 (two) Medical times Branch daily. famotidine 2020-0 Yes [id number] 20mg Take 1 [facility] (PEPCID AC) 3-24 tablet by ity of 20 mg 00:00: mouth 2 [place] tablet 00 (two) Medical times Branch daily. phenytoin 2020-0 Yes [id number] 400mg Take 4 [facility] Extended 3-24 capsules ity of (DILANTIN) 00:00: by mouth [place] 100 mg 00 daily. Medical capsule [facility] FLUoxetine 2020-0 Yes 40mg Take 1 [facility] (PROZAC) 40 3-24 capsule by it y of mg capsule 00:00: mouth 00 daily. [facility] cholestyram 2020-0 Yes [id number] 2g Take 0.5 [facility] 4 gram 3-24 Packets by ity of powder 00:00: mouth 3 (three) Medical times Branch daily with meals. clonazePAM 2020-0 Yes [id number] 1mg Take 1 [facility] 1 mg tablet 3-24 tablet by ity of 00:00: mouth once 00 daily as Medical needed Branch (panic attack). pantoprazol 2020-0 Yes [id number] 40mg Take 1 [facility] e 40 mg EC 3-24 tablet by it[facility] of tablet 00:00: mouth 2 [place] 00 (two) Medical times Branch daily. famotidine 2020-0 Yes [id number] 20mg Take 1 [facility] (PEPCID AC) 3-24 tablet by ity of 20 mg 00:00: mouth 2 [place] tablet 00 (two) Medical times Branch daily. phenytoin 2020-0 Yes [id number] 400mg Take 4 [facility] Extended 3-24 capsules ity of (DILANTIN) 00:00: by mouth [place] 100 mg 00 daily. Medical capsule [facility] FLUoxetine 2020-0 Yes 40mg Take 1 [facility] (PROZAC) 40 3-24 capsule by it y of mg capsule 00:00: mouth [place] 00 daily. Medical [facility] cholestyram 2020-0 Yes [id number] 2g Take 0.5 [facility] 4 gram 3-24 Packets by it[facility] of powder 00:00: mouth 3 [place] 00 (three) Medical times Branch daily with meals. clonazePAM 2020-0 Yes [id number] 1mg Take 1 [facility] 1 mg tablet 3-24 tablet by ity of 00:00: mouth once [place] 00 daily as Medical needed Branch (panic attack). pantoprazol 2020-0 Yes [id number] 40mg Take 1 [facility] e 40 mg EC 3-24 tablet by ity of tablet 00:00: mouth 2 [place] 00 (two) Medical times Branch daily. famotidine 2020-0 Yes [id number] 20mg Take 1 [facility] (PEPCID AC) 3-24 tablet by ity of 20 mg 00:00: mouth 2 [place] tablet 00 (two) Medical times Branch daily. phenytoin 2020-0 Yes [id number] 400mg Take 4 [facility] Extended 3-24 capsules ity of (DILANTIN) 00:00: by mouth [place] 100 mg 00 daily. Medical capsule [facility] FLUoxetine 2020-0 Yes 40mg Take 1 [facility] (PROZAC) 40 3-24 capsule by it y of mg capsule 00:00: mouth [place] 00 daily. Medical [facility] cholestyram 2020-0 Yes [id number] 2g Take 0.5 [facility] 4 gram 3-24 Packets by [facility] of powder 00:00: mouth 3 [place] 00 (three) Medical times Branch daily with meals. clonazePAM 2020-0 Yes [id number] 1mg Take 1 [facility] 1 mg tablet 3-24 tablet by ity of 00:00: mouth once [place] 00 daily as Medical needed Branch (panic attack). pantoprazol 2020-0 Yes [id number] 40mg Take 1 [facility] e 40 mg EC 3-24 tablet by it[facility] of tablet 00:00: mouth 2 [place] 00 (two) Medical times Branch daily. famotidine 2020-0 Yes [id number] 20mg Take 1 [facility] (PEPCID AC) 3-24 tablet by ity of 20 mg 00:00: mouth 2 [place] tablet 00 (two) Medical times Branch daily. phenytoin 2020-0 Yes [id number] 400mg Take 4 [facility] Extended 3-24 capsules ity of (DILANTIN) 00:00: by mouth [place] 100 mg 00 daily. Medical capsule [facility] FLUoxetine 2020-0 Yes 40mg Take 1 [facility] (PROZAC) 40 3-24 capsule by it y of mg capsule 00:00: mouth [place] 00 daily. Medical [facility] cholestyram 2020-0 Yes [id number] 2g Take 0.5 [facility] 4 gram 3-24 Packets by [facility] of powder 00:00: mouth 3 [place] (three) Medical times Branch daily with meals. pantoprazol 2020-0 Yes [id number] 40mg Take 1 [facility] e 40 mg EC 3-24 tablet by ity of tablet 00:00: mouth 2 [place] 00 (two) Medical times Branch daily. famotidine 2020-0 Yes [id number] 20mg Take 1 [facility] (PEPCID AC) 3-24 tablet by ity of 20 mg 00:00: mouth 2 [place] tablet 00 (two) Medical times Branch daily. phenytoin 2020-0 Yes [id number] 400mg Take 4 [facility] Extended 3-24 capsules ity of (DILANTIN) 00:00: by mouth [place] 100 mg 00 daily. Medical capsule [facility] FLUoxetine 2020-0 Yes 40mg Take 1 [facility] (PROZAC) 40 3-24 capsule by it y of mg capsule 00:00: mouth [place] 00 daily. Medical [facility] cholestyram 2020-0 Yes [id number] 2g Take 0.5 [facility] 4 gram 3-24 Packets by [facility] of powder 00:00: mouth 3 [place] (three) Medical times Branch daily with meals. pantoprazol 2020-0 Yes [id number] 40mg Take 1 [facility] e 40 mg EC 3-24 tablet by [facility] of tablet 00:00: mouth 2 [place] 00 (two) Medical times Branch daily. famotidine 2020-0 Yes [id number] 20mg Take 1 [facility] (PEPCID AC) 3-24 tablet by ity of 20 mg 00:00: mouth 2 [place] tablet 00 (two) Medical times Branch daily. phenytoin 2020-0 Yes [id number] 400mg Take 4 [facility] Extended 3-24 capsules ity of (DILANTIN) 00:00: by mouth [place] 100 mg 00 daily. Medical capsule [facility] FLUoxetine 2020-0 Yes 40mg Take 1 [facility] (PROZAC) 40 3-24 capsule by it y of mg capsule 00:00: mouth [place] 00 daily. [facility] cholestyram 2020-0 Yes [id number] 2g Take 0.5 [facility] 4 gram 3-24 Packets by [facility] of powder 00:00: mouth 3 [place] 00 (three) Medical times Branch daily with meals. pantoprazol 2020-0 Yes [id number] 40mg Take 1 [facility] e 40 mg EC 3-24 tablet by [facility] of tablet 00:00: mouth 2 [place] 00 (two) Medical times Branch daily. famotidine 2020-0 Yes [id number] 20mg Take 1 [facility] (PEPCID AC) 3-24 tablet by ity of 20 mg 00:00: mouth 2 [place] tablet 00 (two) Medical times Branch daily. phenytoin 2020-0 Yes [id number] 400mg Take 4 [facility] Extended 3-24 capsules ity of (DILANTIN) 00:00: by mouth [place] 100 mg 00 daily. Medical capsule [facility] FLUoxetine 2020-0 Yes 40mg Take 1 [facility] (PROZAC) 40 3-24 capsule by it y of mg capsule 00:00: mouth [place] 00 daily. Medical [facility] cholestyram 2020-0 Yes [id number] 2g Take 0.5 [facility] 4 gram 3-24 Packets by ity of powder 00:00: mouth 3 00 (three) Medical times Branch daily with meals. pantoprazol 2020-0 Yes [id number] 40mg Take 1 [facility] e 40 mg EC 3-24 tablet by [facility] of tablet 00:00: mouth 2 [place] 00 (two) Medical times Branch daily. famotidine 2020-0 Yes [id number] 20mg Take 1 [facility] (PEPCID AC) 3-24 tablet by ity of 20 mg 00:00: mouth 2 [place] tablet 00 (two) Medical times Branch daily. phenytoin 2020-0 Yes [id number] 400mg Take 4 [facility] Extended 3-24 capsules ity of (DILANTIN) 00:00: by mouth [place] 100 mg 00 daily. Medical capsule [facility] FLUoxetine 2020-0 Yes 40mg Take 1 [facility] (PROZAC) 40 3-24 capsule by it y of mg capsule 00:00: mouth 00 daily. Medical [facility] cholestyram 2020-0 Yes [id number] 2g Take 0.5 [facility] 4 gram 3-24 Packets by [facility] of powder 00:00: mouth 3 (three) Medical times Branch daily with meals. pantoprazol 2020-0 Yes [id number] 40mg Take 1 [facility] e 40 mg EC 3-24 tablet by [facility] of tablet 00:00: mouth 2 [place] 00 (two) Medical times Branch daily. famotidine 2020-0 Yes [id number] 20mg Take 1 [facility] (PEPCID AC) 3-24 tablet by ity of 20 mg 00:00: mouth 2 [place] tablet 00 (two) Medical times Branch daily. phenytoin 2020-0 Yes [id number] 400mg Take 4 [facility] Extended 3-24 capsules ity of (DILANTIN) 00:00: by mouth [place] 100 mg 00 daily. Medical capsule [facility] FLUoxetine 2020-0 Yes 40mg Take 1 [facility] (PROZAC) 40 3-24 capsule by it y of mg capsule 00:00: mouth 00 daily. Medical [facility] cholestyram 2020-0 Yes [id number] 2g Take 0.5 [facility] 4 gram 3-24 Packets by [facility] of powder 00:00: mouth 3 (three) Medical times Branch daily with meals. pantoprazol 2020-0 Yes [id number] 40mg Take 1 [facility] e 40 mg EC 3-24 tablet by [facility] of tablet 00:00: mouth 2 [place] 00 (two) Medical times Branch daily. famotidine 2020-0 Yes [id number] 20mg Take 1 [facility] (PEPCID AC) 3-24 tablet by ity of 20 mg 00:00: mouth 2 [place] tablet 00 (two) Medical times Branch daily. phenytoin 2020-0 Yes [id number] 400mg Take 4 [facility] Extended 3-24 capsules ity of (DILANTIN) 00:00: by mouth [place] 100 mg 00 daily. Medical capsule [facility] FLUoxetine 2020-0 Yes 40mg Take 1 [facility] (PROZAC) 40 3-24 capsule by it y of mg capsule 00:00: mouth 00 daily. Medical [facility] cholestyram 2020-0 Yes [id number] 2g Take 0.5 [facility] 4 gram 3-24 Packets by it[facility] of powder 00:00: mouth 3 [place] 00 (three) Medical times Branch daily with meals. pantoprazol 2020-0 Yes [id number] 40mg Take 1 [facility] e 40 mg EC 3-24 tablet by [facility]y of tablet 00:00: mouth 2 [place] 00 (two) Medical times Branch daily. famotidine 2020-0 Yes [id number] 20mg Take 1 [facility] (PEPCID AC) 3-24 tablet by ity of 20 mg 00:00: mouth 2 [place] tablet 00 (two) Medical times Branch daily. phenytoin 2020-0 Yes [id number] 400mg Take 4 [facility] Extended 3-24 capsules ity of (DILANTIN) 00:00: by mouth [place] 100 mg 00 daily. Medical capsule [facility] FLUoxetine 2020-0 Yes 40mg Take 1 [facility] (PROZAC) 40 3-24 capsule by it y of mg capsule 00:00: mouth [place] 00 daily. Medical [facility] cholestyram 2020-0 Yes [id number] 2g Take 0.5 [facility] 4 gram 3-24 Packets by ity of powder 00:00: mouth (three) Medical times Branch daily with meals. pantoprazol 2020-0 Yes [id number] 40mg Take 1 [facility] e 40 mg EC 3-24 tablet by [facility] of tablet 00:00: mouth 2 00 (two) Medical times Branch daily. famotidine 2020-0 Yes [id number] 20mg Take 1 [facility] (PEPCID AC) 3-24 tablet by ity of 20 mg 00:00: mouth 2 [place] tablet 00 (two) Medical times Branch daily. phenytoin 2020-0 Yes [id number] 400mg Take 4 [facility] Extended 3-24 capsules ity of (DILANTIN) 00:00: by mouth [place] 100 mg 00 daily. Medical capsule [facility] FLUoxetine 2020-0 Yes 40mg Take 1 [facility] (PROZAC) 40 3-24 capsule by it y of mg capsule 00:00: mouth 00 daily. Medical [facility] cholestyram 2020-0 Yes [id number] 2g Take 0.5 [facility] 4 gram 3-24 Packets by it[facility] of powder 00:00: mouth 3 00 (three) Medical times Branch daily with meals. pantoprazol 2020-0 Yes [id number] 40mg Take 1 [facility] e 40 mg EC 3-24 tablet by [facility] of tablet 00:00: mouth 2 [place] 00 (two) Medical times Branch daily. famotidine 2020-0 Yes [id number] 20mg Take 1 [facility] (PEPCID AC) 3-24 tablet by ity of 20 mg 00:00: mouth 2 [place] tablet 00 (two) Medical times Branch daily. phenytoin 2020-0 Yes [id number] 400mg Take 4 [facility] Extended 3-24 capsules ity of (DILANTIN) 00:00: by mouth [place] 100 mg 00 daily. Medical capsule [facility] FLUoxetine 2020-0 Yes 40mg Take 1 [facility] (PROZAC) 40 3-24 capsule by it y of mg capsule 00:00: mouth [place] 00 daily. Medical [facility] cholestyram 2020-0 Yes [id number] 2g Take 0.5 [facility] 4 gram 3-24 Packets by it[facility] of powder 00:00: mouth 3 (three) Medical times Branch daily with meals. pantoprazol 2020-0 Yes [id number] 40mg Take 1 [facility] e 40 mg EC 3-24 tablet by [facility] of tablet 00:00: mouth 2 [place] (two) Medical times Branch daily. famotidine 2020-0 Yes [id number] 20mg Take 1 [facility] (PEPCID AC) 3-24 tablet by ity of 20 mg 00:00: mouth 2 [place] tablet 00 (two) Medical times Branch daily. phenytoin 2020-0 Yes [id number] 400mg Take 4 [facility] Extended 3-24 capsules ity of (DILANTIN) 00:00: by mouth [place] 100 mg 00 daily. Medical capsule [facility] FLUoxetine 2020-0 Yes 40mg Take 1 [facility] (PROZAC) 40 3-24 capsule by it y of mg capsule 00:00: mouth 00 daily. Medical [facility] cholestyram 2020-0 Yes [id number] 2g Take 0.5 [facility] 4 gram 3-24 Packets by ity of powder 00:00: mouth 3 (three) Medical times Branch daily with meals. pantoprazol 2020-0 Yes [id number] 40mg Take 1 [facility] e 40 mg EC 3-24 tablet by [facility] of tablet 00:00: mouth 2 [place] 00 (two) Medical times Branch daily. famotidine 2020-0 Yes [id number] 20mg Take 1 [facility] (PEPCID AC) 3-24 tablet by ity of 20 mg 00:00: mouth 2 [place] tablet 00 (two) Medical times Branch daily. phenytoin 2020-0 Yes [id number] 400mg Take 4 [facility] Extended 3-24 capsules ity of (DILANTIN) 00:00: by mouth [place] 100 mg 00 daily. Medical capsule [facility] FLUoxetine 2020-0 Yes 40mg Take 1 [facility] (PROZAC) 40 3-24 capsule by it y of mg capsule 00:00: mouth [place] 00 daily. Medical [facility] cholestyram 2020-0 Yes [id number] 2g Take 0.5 [facility] 4 gram 3-24 Packets by ity of powder 00:00: mouth 3 [place] 00 (three) Medical times Branch daily with meals. famotidine 2020-0 Yes [id number] 20mg Take 1 [facility] (PEPCID AC) 3-24 tablet by ity of 20 mg 00:00: mouth 2 [place] tablet 00 (two) Medical times Branch daily. phenytoin 2020-0 Yes [id number] 400mg Take 4 [facility] Extended 3-24 capsules ity of (DILANTIN) 00:00: by mouth [place] 100 mg 00 daily. Medical capsule [facility] FLUoxetine 2020-0 Yes 40mg Take 1 [facility] (PROZAC) 40 3-24 capsule by it y of mg capsule 00:00: mouth [place] 00 daily. Medical [facility] cholestyram 2020-0 Yes [id number] 2g Take 0.5 [facility] 4 gram 3-24 Packets by ity of powder 00:00: mouth 3 [place] (three) Medical times Branch daily with meals. famotidine 2020-0 Yes [id number] 20mg Take 1 [facility] (PEPCID AC) 3-24 tablet by ity of 20 mg 00:00: mouth 2 [place] tablet 00 (two) Medical times Branch daily. phenytoin 2020-0 Yes [id number] 400mg Take 4 [facility] Extended 3-24 capsules ity of (DILANTIN) 00:00: by mouth [place] 100 mg 00 daily. Medical capsule [facility] FLUoxetine 2020-0 Yes 40mg Take 1 [facility] (PROZAC) 40 3-24 capsule by it y of mg capsule 00:00: mouth [place] 00 daily. Medical [facility] cholestyram 2020-0 Yes [id number] 2g Take 0.5 [facility] 4 gram 3-24 Packets by [facility]y of powder 00:00: mouth 3 [place] (three) Medical times Branch daily with meals. famotidine 2020-0 Yes [id number] 20mg Take 1 [facility] (PEPCID AC) 3-24 tablet by ity of 20 mg 00:00: mouth 2 [place] tablet 00 (two) Medical times Branch daily. famotidine 2020-0 Yes [id number] 20mg Take 1 [facility] (PEPCID AC) 3-24 tablet by ity of 20 mg 00:00: mouth 2 [place] tablet 00 (two) Medical times Branch daily. famotidine 2020-0 Yes [id number] 20mg Take 1 [facility] (PEPCID AC) 3-24 tablet by ity of 20 mg 00:00: mouth 2 [place] tablet 00 (two) Medical times Branch daily. famotidine 2020-0 Yes [id number] 20mg Take 1 [facility] (PEPCID AC) 3-24 tablet by ity of 20 mg 00:00: mouth 2 [place] tablet 00 (two) Medical times Branch daily. famotidine 2020-0 Yes [id number] 20mg Take 1 [facility] (PEPCID AC) 3-24 tablet by ity of 20 mg 00:00: mouth 2 [place] tablet 00 (two) Medical times Branch daily. famotidine 2020-0 Yes [id number] 20mg Take 1 [facility] (PEPCID AC) 3-24 tablet by ity of 20 mg 00:00: mouth 2 [place] tablet 00 (two) Medical times Branch daily. famotidine 2020-0 Yes [id number] 20mg Take 1 [facility] (PEPCID AC) 3-24 tablet by ity of 20 mg 00:00: mouth 2 [place] tablet 00 (two) Medical times Branch daily. famotidine 2020-0 Yes [id number] 20mg Take 1 [facility] (PEPCID AC) 3-24 tablet by ity of 20 mg 00:00: mouth 2 [place] tablet 00 (two) Medical times Branch daily. famotidine 2020-0 Yes [id number] 20mg Take 1 [facility] (PEPCID AC) 3-24 tablet by ity of 20 mg 00:00: mouth 2 [place] tablet 00 (two) Medical times Branch daily. famotidine 2020-0 Yes [id number] 20mg Take 1 [facility] (PEPCID AC) 3-24 tablet by ity of 20 mg 00:00: mouth 2 [place] tablet 00 (two) Medical times Branch daily. famotidine 2020-0 Yes [id number] 20mg Take 1 [facility] (PEPCID AC) 3-24 tablet by ity of 20 mg 00:00: mouth 2 [place] tablet 00 (two) Medical times Branch daily. famotidine 2020-0 Yes [id number] 20mg Take 1 [facility] (PEPCID AC) 3-24 tablet by ity of 20 mg 00:00: mouth 2 [place] tablet 00 (two) Medical times Branch daily. famotidine 2020-0 Yes [id number] 20mg Take 1 [facility] (PEPCID AC) 3-24 tablet by ity of 20 mg 00:00: mouth 2 [place] tablet 00 (two) Medical times Branch daily. famotidine 2020-0 Yes [id number] 20mg Take 1 [facility] (PEPCID AC) 3-24 tablet by ity of 20 mg 00:00: mouth 2 [place] tablet 00 (two) Medical times Branch daily. famotidine 2020-0 Yes [id number] 20mg Take 1 [facility] (PEPCID AC) 3-24 tablet by ity of 20 mg 00:00: mouth 2 [place] tablet 00 (two) Medical times Branch daily. famotidine 2020-0 Yes [id number] 20mg Take 1 [facility] (PEPCID AC) 3-24 tablet by ity of 20 mg 00:00: mouth 2 [place] tablet 00 (two) Medical times Branch daily. famotidine 2020-0 Yes [id number] 20mg Take 1 [facility] (PEPCID AC) 3-24 tablet by ity of 20 mg 00:00: mouth 2 [place] tablet 00 (two) Medical times Branch daily. famotidine 2020-0 Yes [id number] 20mg Take 1 [facility] (PEPCID AC) 3-24 tablet by ity of 20 mg 00:00: mouth 2 [place] tablet 00 (two) Medical times Branch daily. famotidine 2020-0 Yes [id number] 20mg Take 1 [facility] (PEPCID AC) 3-24 tablet by ity of 20 mg 00:00: mouth 2 [place] tablet 00 (two) Medical times Branch daily. famotidine 2020-0 Yes [id number] 20mg Take 1 [facility] (PEPCID AC) 3-24 tablet by ity of 20 mg 00:00: mouth 2 [place] tablet 00 (two) Medical times Branch daily. pantoprazol 2020-0 Yes [id number] 40mg Take 1 [facility] e 40 mg EC 3-24 tablet by [facility]y of tablet 00:00: mouth 2 [place] 00 (two) Medical times Branch daily. famotidine 2020-0 Yes [id number] 20mg Take 1 [facility] (PEPCID AC) 3-24 tablet by ity of 20 mg 00:00: mouth 2 [place] tablet 00 (two) Medical times Branch daily. phenytoin 2020-0 Yes [id number] 400mg Take 4 [facility] Extended 3-24 capsules ity of (DILANTIN) 00:00: by mouth [place] 100 mg 00 daily. Medical capsule [facility] FLUoxetine 2020-0 Yes 40mg Take 1 [facility] (PROZAC) 40 3-24 capsule by it y of mg capsule 00:00: mouth [place] 00 daily. Medical Branch cholestyram 2020-0 Yes [id number] 2g Take 0.5 [facility] 4 gram 3-24 Packets by ity of powder 00:00: mouth 3 00 (three) Medical times Branch daily with meals. clonazePAM 2020-0 Yes [id number] 1mg Take 1 [facility] 1 mg tablet 3-24 tablet by ity of 00:00: mouth once 00 daily as Medical needed Branch (panic attack). pantoprazol 2020-0 Yes [id number] 40mg Take 1 [facility] e 40 mg EC 3-24 tablet by [facility] of tablet 00:00: mouth 2 00 (two) Medical times Branch daily. famotidine 2020-0 Yes [id number] 20mg Take 1 [facility] (PEPCID AC) 3-24 tablet by ity of 20 mg 00:00: mouth 2 [place] tablet 00 (two) Medical times Branch daily. famotidine 2020-0 202- No [id number] 20mg Take 1 [facility] (PEPCID AC) 3-24 01-10 tablet by it y of 20 mg 00:00: 00:00 mouth 2 [place] tablet 00 :00 (two) Medical times Branch daily. famotidine 2020-0 2023- No [id number] 20mg Take 1 [facility] (PEPCID AC) 3-24 01-10 tablet by it y of 20 mg 00:00: 00:00 mouth 2 [place] tablet 00 :00 (two) Medical times Branch daily. famotidine 2020-0 202- No [id number] 20mg Take 1 [facility] (PEPCID AC) 3-24 -10 tablet by it y of 20 mg 00:00: 00:00 mouth 2 [place] tablet 00 :00 (two) Medical times Branch daily. famotidine 2019-0 2022- No [id number] 20mg Take 1 [facility] (PEPCID AC) 07-07- tablet by it y of 20 mg 00:00: 00:00 mouth 2 [place] tablet 00 :00 (two) Medical times Branch daily. famotidine 2019-2022- No [id number] 20mg Take 1 [facility] (PEPCID AC) 07-07 tablet by it y of 20 mg 00:00: 00:00 mouth 2 [place] tablet 00 :00 (two) Medical times Branch daily. famotidine 2019-2022- No [id number] 20mg Take 1 [facility] (PEPCID AC) 07-07 tablet by it y of 20 mg 00:00: 00:00 mouth 2 [place] tablet 00 :00 (two) Medical times Branch daily. phenytoin 2019-2019- No [id number] 400mg Take 4 [facility] Extended 07-07- capsules ity of (DILANTIN) 00:00: 00:00 by mouth [place] 100 mg 00 :00 daily. Medical capsule Branch FLUoxetine 2019- No 40mg Take 1 [facility] ers (PROZAC) 40 07-07 capsule by i ty of mg capsule 00:00: 00:00 mouth [place] 00 :00 daily. Medical Branch cholestyram 2019- No [id number] 2g Take 0.5 [facility] in[facility] 4 gram 07-07 Packets by it y of powder 00:00: 00:00 mouth 3 [place] 00 :00 (three) Medical times Branch daily with meals. pantoprazol 2019-2019- No [id number] 40mg Take 1 [facility] e 40 mg EC 07-07 tablet by ity of tablet 00:00: 00:00 mouth 2 [place] 00 :00 (two) Medical times Branch daily. clonazePAM 2019-2019- No [id number] 1mg Take 1 [facility] 1 mg tablet 07-07- tablet by it y of 00:00: 00:00 mouth once [place] 00 :00 daily as Medical needed Branch (panic attack). clonazePAM 2019-2019- No [id number] 1mg Take 1 [facility] 1 mg tablet 3-24 03-24 tablet by it y of 00:00: 00:00 mouth 3 [place] 00 :00 (three) Medical times Branch daily. levothyroxi 2020-0 Yes [id number] 150ug Take 1 [facility] ne 150 mcg 3-12 tablet by ity of tablet 00:00: mouth [place] 00 every Medical morning. Branch levothyroxi 2020-0 Yes [id number] 150ug Take 1 [facility] ne 150 mcg 3-12 tablet by ity of tablet 00:00: mouth [place] 00 every Medical morning. Branch levothyroxi 2020-0 Yes [id number] 150ug Take 1 [facility] ne 150 mcg 3-12 tablet by ity of tablet 00:00: mouth [place] 00 every Medical morning. Branch levothyroxi 2020-0 Yes [id number] 150ug Take 1 [facility] ne 150 mcg 3-12 tablet by ity of tablet 00:00: mouth [place] 00 every Medical morning. Branch levothyroxi 2020-0 Yes [id number] 150ug Take 1 [facility] ne 150 mcg 3-12 tablet by ity of tablet 00:00: mouth [place] 00 every Medical morning. Branch levothyroxi 2020-0 Yes [id number] 150ug Take 1 [facility] ne 150 mcg 3-12 tablet by ity of tablet 00:00: mouth [place] 00 every Medical morning. Branch levothyroxi 2020-0 Yes [id number] 150ug Take 1 [facility] ne 150 mcg 3-12 tablet by ity of tablet 00:00: mouth [place] 00 every Medical morning. Branch levothyroxi 2020-0 Yes [id number] 150ug Take 1 [facility] ne 150 mcg 3-12 tablet by ity of tablet 00:00: mouth [place] 00 every Medical morning. Branch levothyroxi 2020-0 Yes [id number] 150ug Take 1 [facility] ne 150 mcg 3-12 tablet by ity of tablet 00:00: mouth [place] 00 every Medical morning. Branch levothyroxi 2020-0 Yes [id number] 150ug Take 1 [facility] ne 150 mcg 3-12 tablet by ity of tablet 00:00: mouth [place] 00 every Medical morning. Branch levothyroxi 2020-0 Yes [id number] 150ug Take 1 [facility] ne 150 mcg 3-12 tablet by ity of tablet 00:00: mouth [place] 00 every Medical morning. Branch levothyroxi 2020-0 Yes [id number] 150ug Take 1 Univers ne 150 mcg 3-12 tablet by ity of tablet 00:00: mouth [place] 00 every Medical morning. Branch levothyroxi 2020-0 Yes [id number] 150ug Take 1 Univers ne 150 mcg 3-12 tablet by ity of tablet 00:00: mouth [place] 00 every Medical morning. Branch levothyroxi 2020-0 Yes [id number] 150ug Take 1 Univers ne 150 mcg 3-12 tablet by ity of tablet 00:00: mouth [place] 00 every Medical morning. Branch levothyroxi 2020-0 Yes [id number] 150ug Take 1 Univers ne 150 mcg 3-12 tablet by ity of tablet 00:00: mouth [place] 00 every Medical morning. Branch levothyroxi 2020-0 Yes [id number] 150ug Take 1 Univers ne 150 mcg 3-12 tablet by ity of tablet 00:00: mouth [place] 00 every Medical morning. Branch levothyroxi 2020-0 Yes [id number] 150ug Take 1 Univers ne 150 mcg 3-12 tablet by ity of tablet 00:00: mouth [place] 00 every Medical morning. Branch levothyroxi 2020-0 Yes [id number] 150ug Take 1 Univers ne 150 mcg 3-12 tablet by ity of tablet 00:00: mouth [place] 00 every Medical morning. Branch levothyroxi 2020-0 Yes [id number] 150ug Take 1 Univers ne 150 mcg 3-12 tablet by ity of tablet 00:00: mouth [place] 00 every Medical morning. Branch levothyroxi 2020-0 Yes [id number] 150ug Take 1 Univers ne 150 mcg 3-12 tablet by ity of tablet 00:00: mouth [place] 00 every Medical morning. Branch levothyroxi 2020-0 Yes [id number] 150ug Take 1 Univers ne 150 mcg 3-12 tablet by ity of tablet 00:00: mouth [place] 00 every Medical morning. Branch levothyroxi 2020-0 Yes [id number] 150ug Take 1 Univers ne 150 mcg 3-12 tablet by ity of tablet 00:00: mouth [place] 00 every Medical morning. Branch levothyroxi 2020-0 2020- No [id number] 150ug Take 1 Univers ne 150 mcg 3-12 04-24 tablet by ity of tablet 00:00: 00:00 mouth [place] 00 :00 every Medical morning. Branch levothyroxi 2020-0 2020- No [id number] 150ug Take 1 Univers ne 150 mcg 3-12 04-24 tablet by ity of tablet 00:00: 00:00 mouth [place] 00 :00 every Medical morning. Branch oseltamivir 2020-0 Yes [id number] 75mg Take 1 U nivers 75 mg 1-28 capsule by ity of capsule 00:00: mouth (two) Medical times Branch daily. oseltamivir 2020-0 Yes [id number] 75mg Take 1 U nivers 75 mg 1-28 capsule by ity of capsule 00:00: mouth [place] (two) Medical times Branch daily. oseltamivir 2020-0 Yes [id number] 75mg Take 1 U nivers 75 mg 1-28 capsule by ity of capsule 00:00: mouth [place] (two) Medical times Branch daily. oseltamivir 2020-0 Yes [id number] 75mg Take 1 U nivers 75 mg 1-28 capsule by ity of capsule 00:00: mouth [place] (two) Medical times Branch daily. oseltamivir 2020-0 Yes [id number] 75mg Take 1 U nivers 75 mg 1-28 capsule by ity of capsule 00:00: mouth [address] [place] [address] (two) Medical times Branch daily. oseltamivir 2020-0 Yes [id number] 75mg Take 1 U nivers 75 mg 1-28 capsule by ity of capsule 00:00: mouth [place] (two) Medical times Branch daily. oseltamivir 2020-0 Yes [id number] 75mg Take 1 U nivers 75 mg 1-28 capsule by ity of capsule 00:00: mouth [place] (two) Medical times Branch daily. oseltamivir 2020-0 Yes [id number] 75mg Take 1 U nivers 75 mg 1-28 capsule by ity of capsule 00:00: mouth [place] (two) Medical times Branch daily. oseltamivir 2020-0 Yes [id number] 75mg Take 1 U nivers 75 mg 1-28 capsule by ity of capsule 00:00: mouth [place] (two) Medical times Branch daily. oseltamivir 2020-0 Yes [id number] 75mg Take 1 U nivers 75 mg 1-28 capsule by ity of capsule 00:00: mouth [place] (two) Medical times Branch daily. oseltamivir 2020-0 Yes [id number] 75mg Take 1 U nivers 75 mg 1-28 capsule by ity of capsule 00:00: mouth [place] (two) Medical times Branch daily. oseltamivir 2020-0 Yes [id number] 75mg Take 1 U nivers 75 mg 1-28 capsule by ity of capsule 00:00: mouth (two) Medical times Branch daily. oseltamivir 2020-0 Yes [id number] 75mg Take 1 U nivers 75 mg 1-28 capsule by ity of capsule 00:00: mouth (two) Medical times Branch daily. oseltamivir 2020-0 Yes [id number] 75mg Take 1 U nivers 75 mg 1-28 capsule by ity of capsule 00:00: mouth (two) Medical times Branch daily. oseltamivir 2020-0 Yes [id number] 75mg Take 1 U nivers 75 mg 1-28 capsule by ity of capsule 00:00: mouth (two) Medical times Branch daily. oseltamivir 2020-0 Yes [id number] 75mg Take 1 U nivers 75 mg 1-28 capsule by ity of capsule 00:00: mouth (two) Medical times Branch daily. oseltamivir 2020-0 Yes [id number] 75mg Take 1 U nivers 75 mg 1-28 capsule by ity of capsule 00:00: mouth (two) Medical times Branch daily. oseltamivir 2020-0 Yes [id number] 75mg Take 1 U nivers 75 mg 1-28 capsule by ity of capsule 00:00: mouth (two) Medical times Branch daily. oseltamivir 2020-0 Yes [id number] 75mg Take 1 U nivers 75 mg 1-28 capsule by ity of capsule 00:00: mouth (two) Medical times Branch daily. oseltamivir 2020-0 Yes [id number] 75mg Take 1 U nivers 75 mg 1-28 capsule by ity of capsule 00:00: mouth (two) Medical times Branch daily. oseltamivir 2020-0 Yes [id number] 75mg Take 1 U nivers 75 mg 1-28 capsule by ity of capsule 00:00: mouth (two) Medical times Branch daily. oseltamivir 2020-0 Yes [id number] 75mg Take 1 U nivers 75 mg 1-28 capsule by ity of capsule 00:00: mouth (two) Medical times Branch daily. oseltamivir 2020-0 Yes [id number] 75mg Take 1 U nivers 75 mg 1-28 capsule by ity of capsule 00:00: mouth 2 [place] 00 (two) Medical times Branch daily. oseltamivir 2020-0 Yes [id number] 75mg Take 1 U nivers 75 mg 1-28 capsule by ity of capsule 00:00: mouth 2 [place] 00 (two) Medical times Branch daily. oseltamivir 2020-0 Yes [id number] 75mg Take 1 U nivers 75 mg 1-28 capsule by ity of capsule 00:00: mouth 2 [place] 00 (two) Medical times Branch daily. oseltamivir 2020-0 Yes [id number] 75mg Take 1 U nivers 75 mg 1-28 capsule by ity of capsule 00:00: mouth 2 [place] 00 (two) Medical times Branch daily. oseltamivir 2020-0 Yes [id number] 75mg Take 1 U nivers 75 mg 1-28 capsule by ity of capsule 00:00: mouth 2 [place] 00 (two) Medical times Branch daily. oseltamivir 2020-0 Yes [id number] 75mg Take 1 U nivers 75 mg 1-28 capsule by ity of capsule 00:00: mouth [address] [place] [address] 00 (two) Medical times Branch daily. oseltamivir 2020-0 2020- No [id number] 75mg Take 1 Univers 75 mg 1-28 05-19 capsule by ity of capsule 00:00: 00:[address] [place] [address] 00 :00 (two) Medical times Branch daily. pantoprazol 2018-04 2020- No [id number] 40mg Take 1 Univers e 40 mg EC 2-20 03-20 tablet by ity of tablet 00:00: 04:59 mouth [place] 00 :00 daily for Medical 90 days. Branch pantoprazol 2018-04 2020- No [id number] 40mg Take 1 Univers e 40 mg EC 2-20 03-20 tablet by ity of tablet 00:00: 04:59 mouth [place] 00 :00 daily for Medical 90 days. Branch pantoprazol 2018-04 2020- No [id number] 40mg Take 1 Univers e 40 mg [...] [place] 00 every Medical morning. Branch albuterol 0 Yes 2{puff} Inhale 2 U [...] a ity of tablet 00:00: tablet) in [place] 00 the Medical morning Branch and 150mg (3 tablets) at night albuterol Yes 2{puff} Inhale 2 U nivers 90 5-17 Puffs ity of mcg/actuati 00:00: every 6 [place] as on inhaler 00 (six) Medical hours as Branch needed for Wheezing or Shortness of Breath. traZODone Yes 225mg Take 1.5 Uni vers 150 mg 5-17 tablets by ity of tablet 00:00: mouth at [place] 00 bedtime. Medical Branch albuterol Yes 2{puff} Inhale 2 U nivers 90 5-17 Puffs ity of mcg/actuati 00:00: every 6 [place] as on inhaler 00 (six) Medical hours as Branch needed for Wheezing or Shortness of Breath. pantoprazol Yes 40mg Take 1 Univ ers e 40 mg EC 5-17 tablet by ity of tablet 00:00: mouth [place] 00 daily. Medical Branch clonazePAM Yes [id number] 1 tablet Univers 1 mg tablet 5-17 with ity of 00:00: breakfast [place] 00 and lunch, Medical and 2 Branch [...] [place] 00 every Medical morning. Branch albuterol 2018-0 [...] and 150mg (3 tablets) at night albuterol 2018-0 Yes 2{puff} Inhale 2 U nivers 90 5-17 Puffs ity of mcg/actuati 00:00: every 6 [place] as on inhaler 00 (six) Medical hours as Branch needed for Wheezing or Shortness of Breath. traZODone 2018-0 Yes 225mg Take 1.5 Uni vers 150 mg 5-17 tablets by ity of tablet 00:00: mouth at [place] 00 bedtime. Medical Branch pantoprazol 2018-0 Yes 40mg Take 1 Univ ers e 40 mg EC 5-17 tablet by ity of tablet 00:00: mouth [place] 00 daily. Medical Branch albuterol 2018-0 Yes 2{puff} Inhale 2 U nivers 90 5-17 Puffs ity of mcg/actuati 00:00: every 6 [place] as on inhaler 00 (six) Medical hours as Branch needed for Wheezing or Shortness of Breath. clonazePAM 2017- Yes [id number] 1 tablet Univers 1 mg tablet 5-17 [...] tablet by ity of tablet 00:00: mouth [place] 00 every Medical morning. Branch QUEtiapine Yes Take 25 mg U nivers 50 mg 5-17 ( half a ity of tablet 00:00: tablet) in [place] 00 the Medical morning Branch and 150mg [...] by ity of tablet 00:00: mouth at [place] 00 bedtime. Medical Branch albuterol Yes 2{puff} [...] tablet by ity of tablet 00:00: mouth [place] 00 every Medical morning. Branch albuterol Yes 2{puff} Inhale 2 U nivers 90 5-17 Puffs ity of mcg/actuati 00:00: every 6 [place] as on inhaler 00 (six) Medical hours as Branch needed for Wheezing or Shortness of Breath. QUEtiapine Yes Take 25 mg U nivers 50 mg 5-17 ( half a ity of tablet 00:00: tablet) in [place] 00 the Medical morning Branch and 150mg (3 tablets) at night traZODone 2017- Yes 225mg Take 1.5 Uni vers 150 mg 5-17 tablets by ity of tablet 00:00: mouth at [place] 00 bedtime. Medical Branch albuterol 2017-0 Yes [...] a ity of tablet 00:00: tablet) in [place] 00 the Medical morning Branch and 150mg (3 tablets) at night traZODone 2018-0 Yes 225mg Take 1.5 Uni vers 150 mg 5-17 tablets by ity of tablet 00:00: mouth at [place] 00 bedtime. Medical Branch albuterol 2017- Yes [...] a ity of tablet 00:00: tablet) in [place] 00 the Medical morning Branch and 150mg (3 tablets) at night albuterol 2018-0 Yes 2{puff} Inhale 2 U nivers 90 5-17 Puffs ity of mcg/actuati 00:00: every 6 [place] on inhaler 00 (six) Medical hours as Branch needed for Wheezing or Shortness of Breath. traZODone 2018-0 Yes 225mg Take 1.5 Uni vers 150 mg 5-17 tablets by ity of tablet 00:00: mouth at [place] 00 bedtime. Medical Branch albuterol 2018-0 Yes [...] a ity of tablet 00:00: tablet) in [place] 00 the Medical morning Branch and 150mg (3 tablets) at night traZODone 2018-0 Yes 225mg Take 1.5 Uni vers 150 mg 5-17 tablets by ity of tablet 00:00: mouth at [place] 00 bedtime. Medical Branch albuterol 2018-0 Yes [...] Wheezing or Shortness of Breath. QUEtiapine 2018-0 2020- No Take 25 mg Univers 50 mg 5-17 -24 ( half a ity of tablet 00:00: 00:00 tablet) in [facility] 00 :00 the Medical morning Branch [...] Systolic blood 2022-10-08 06:04:00 116 mm[Hg] Univer sity of pressure [facility] Diastolic blood 2022-10-08 06:04:00 80 mm[Hg] [facility] Heart rate 2022-10-08 06:04:00 58 /min [facility] Respiratory rate 2022-10-08 06:04:00 20 /min [facility] Oxygen saturation in 2022-10-08 06:04:00 95 /min [facility] Arterial blood by [facility] Pulse oximetry Branch Body temperature 2022-10-08 03:44:00 36.67 Rachel [facility] Body weight 2022-10-08 03:44:00 74.844 kg [facility] BMI 2022-10-08 03:44:00 28.32 kg/m2 [facility] Systolic blood 2022-07-28 13:43:00 157 mm[Hg] Univer sity [facility] Diastolic blood 2022-07-28 13:43:00 85 mm[facility]Hg] [facility] 2022-07-28 13:43:00 78 /min [facility] Body temperature 2022-07-28 13:43:00 35.94 Rachel [facility] Body height 2022-07-28 13:43:00 162.6 cm [facility] Body weight 2022-07-28 13:43:00 74.844 kg Universi ty [facility] [place] [facility] BMI 2022-07-28 13:43:00 28.32 kg/m2 [facility] [place] [facility] Systolic blood 2022-07-23 04:56:00 125 mm[Hg] Univer sity of pressure [place] [facility] Diastolic blood 2022-07-23 04:56:00 83 mm[Hg] Unive rsity of pressure [place] [facility] Heart rate 2022-07-23 04:56:00 67 /min [facility] [place] [facility] Respiratory rate 2022-07-23 04:56:00 18 /min Univ ersity of [place] [facility] Oxygen saturation in 2022-07-23 04:56:00 97 /min University of Arterial blood by [facility] Pulse oximetry Branch Body temperature 2022-07-23 00:40:00 37.06 Rachel [facility] ersity [facility] [place] [facility] Body weight 2022-07-23 00:40:00 79.379 kg [facility]i [facility] [place] [facility] BMI 2022-07-23 00:40:00 30.04 kg/m2 [facility] [place] [facility] Systolic blood 2022-04-25 18:59:00 133 mm[Hg] Univer sity of pressure [place] [facility] Diastolic blood 2022-04-25 18:59:00 82 mm[Hg] Unive rsity of pressure [place] [facility] Heart rate 2022-04-25 18:55:00 81 /min [facility] [place] [facility] Body temperature 2022-04-25 18:55:00 36.61 Rachel [facility] ersity [facility] [place] [facility] Respiratory rate 2022-04-25 18:55:00 20 /min Univ ersity [facility] [place] [facility] Body height 2022-04-25 18:55:00 162.6 cm [facility]i [facility] [place] [facility] Body weight 2022-04-25 18:55:00 78.291 kg [facility] [place] [facility] BMI 2022-04-25 18:55:00 29.63 kg/m2 [facility] [place] [facility] Oxygen saturation in 2022-04-25 18:55:00 99 /min room air University of Arterial blood by [facility] Pulse oximetry Branch Systolic blood 2019-12-02 14:54:00 133 mm[Hg] Univer sity of pressure [place] [facility] Diastolic blood 2019-12-02 14:54:00 87 mm[Hg] Unive rsity of pressure [facility] Heart rate 2019-12-02 14:54:00 73 /min Universi ty of [facility] Body temperature 2019-12-02 14:12:00 36.56 Rachel Univ ersity of [facility] Body height 2019-12-02 14:12:00 165.1 cm Universi ty of [facility] Body weight 2019-12-02 14:12:00 94.167 kg [facility] [place] [facility] BMI 2019-12-02 14:12:00 34.55 kg/m2 Universi ty of [facility] Branch Oxygen saturation in 2019-12-02 14:12:00 100 /min room air University of Arterial blood by [facility] Pulse oximetry Branch Systolic blood 2019-12-02 14:54:00 133 mm[Hg] Univer sity of pressure [facility] Diastolic blood 2019-12-02 14:54:00 87 mm[Hg] Unive rsity of pressure [facility] Heart rate 2019-12-02 14:54:00 73 /min Universi ty of [facility] Body temperature 2019-12-02 14:12:00 36.56 Rachel Univ ersity of [facility] Body height 2019-12-02 14:12:00 165.1 cm Universi ty of [facility] Body weight 2019-12-02 14:12:00 94.167 kg [facility]i ty [facility] [place] [facility] BMI 2019-12-02 14:12:00 34.55 kg/m2 Universi ty of [facility] Oxygen saturation in 2019-12-02 14:12:00 100 /min room air University of Arterial blood by [facility] Pulse oximetry Branch Systolic blood 2022-10-12 12:23:07 149 mm[Hg] [facility] pressure Diastolic blood 2022-10-12 12:23:07 98 mm[Hg] [facility] pressure Heart rate 2022-10-12 12:23:07 63 /min [facility] Body temperature 2022-10-12 12:23:07 35.72 Rachel [facility] Respiratory rate 2022-10-12 12:23:07 18 /min [facility] Oxygen saturation in 2022-10-12 12:23:07 97 /min [facility] Arterial blood by Pulse oximetry Body height 2022-10-11 17:14:00 162.6 cm [facility] Body weight 2022-10-11 17:14:00 74.844 kg [facility] BMI 2022-10-11 17:14:00 28.32 kg/m2 [facility] Systolic blood 2022-10-08 06:04:00 116 mm[Hg] Univer sity of pressure [facility] Diastolic blood 2022-10-08 06:04:00 80 mm[Hg] Unive rsity of [facility] Heart rate 2022-10-08 06:04:00 58 /min Universi ty [facility] Respiratory rate 2022-10-08 06:04:00 20 /min [facility] saturation in 2022-10-08 06:04:00 95 /min University Arterial blood by [facility] Pulse oximetry [place] Body temperature 2022-10-08 03:44:00 36.67 Rachel [facility] Body weight 2022-10-08 03:44:00 74.844 kg [facility] BMI 2022-10-08 03:44:00 28.32 kg/m2 [facility] Systolic blood 2022-07-28 19:11:27 132 mm[Hg] Method [facility] pressure Diastolic blood 2022-07-28 19:11:27 90 mm[Hg] [facility] pressure Heart rate 2022-07-28 19:11:27 86 /min [facility] Body temperature 2022-07-28 19:11:27 36.67 Rachel [facility] Respiratory rate 2022-07-28 19:11:27 18 /min [facility] Oxygen saturation in 2022-07-28 19:11:27 97 /min [facility] Arterial blood by Pulse oximetry Body height 2022-07-28 15:47:00 162.6 cm [facility] Body weight 2022-07-28 15:47:00 74.844 kg [facility] BMI 2022-07-28 15:47:00 28.32 kg/m2 [facility] Body height 2022-07-28 13:43:00 162.6 cm [facility] BP Systolic 2021-11-25 19:02:00 BP Diastolic [...] Date / Time Performing Clinician Source Performed REFERRAL- 2023-01-22 05:01:00 Doctor Unassigned, [facility] REQUEST/RESPONSE [facility] REFERRAL- 2023-01-08 05:01:00 Doctor Unassigned, [facility] REQUEST/RESPONSE [place] [facility] REFERRAL- 2023-01-08 05:01:00 Doctor Unassigned, [facility] REQUEST/RESPONSE [facility] [id number] 2022-10-21 00:00:[address] [facility] [id number] 2022-10-19 00:00:[address] [facility] [id number] 2022-10-18 00:00:00 SAMKA.01 [facility] CBC WITH PLATELET AND 2022-10-12 08:58:00 AgencyLeeMarifer Nba [facility] DIFFERENTIAL BASIC METABOLIC PANEL 2022-10-12 08:58:00 [facility] ESTIMATED GFR 2022-10-12 08:58:00 Agency [facility] ABO AND RH CONFIRMATION 2022-10-12 02:16:00 [facility] AND SCREEN 2022-10-12 00:08:00 NikitamookieGuera ji susan Lang TROPONIN T 2022-10-12 00:08:[address] [facility] CT LOWER EXTREMITY WO 2022-10-11 22:49:19 [facility] CONTRAST RIGHT TROPONIN T 2022-10-11 20:25:00 [facility] URINE CULTURE 2022-10-11 18:53[facility] 2022-10-11 18:53:00 [facility] MICROS[facility], WITH REFLEX TO CULTURE HCG QUALITATIVE, URINE 2022-10-11 18:53:00 Darleenshelley [facility] SCREEN ECG ED PRELIMINARY 2022-10-11 18:05:21 [facility] INTERPRETATION XR HIP 2-3 VIEWS RIGHT 2022-10-11 17:55:46 Lucho Shea [facility] XR CHEST 1 VW PORTABLE 2022-10-11 17:55:32 [facility] PELVIS 1 OR 2 VW 2022-10-11 17:55:19 [facility], INFLUENZA A&B, 2022-10-11 17:46:00 Shea, [facility] AND RSV QUALITATIVE RT-PCR CBC WITH PLATELET AND 2022-10-11 17:43:00 SheaLucho cole [facility] DIFFERENTIAL COMPREHENSIVE METABOLIC 2022-10-11 17:43:00 SheaLucho cole [facility] PANEL TROPONIN T 2022-10-11 17:43:00 [facility] NT-PROBNP 2022-10-11 17:43:00 Shea, [facility] HCG QUALITATIVE, SERUM 2022-10-11 17:43:00 Lucho Shea [facility] SCREEN PARTIAL THROMBOPLASTIN 2022-10-11 [facility] TIME WITH INR 2022-10-11 17:43:00 [facility] ESTIMATED GFR 2022-10-11 17:43:00 [facility] ECG 12-LEAD 2022-10-11 17:20:17 [facility] POCT TEST 2022-10-08 04:30:00 Mariia [facility] CT PELVIS WO CONTRAST 2022-07-28 17:40:00 [facility] CBC WITH PLATELET AND 2022-07-28 16:40:00 [facility] DIFFERENTIAL COMPREHENSIVE METABOLIC 2022-07-28 16:40:00 [facility] PANEL ESTIMATED GFR 2022-07-28 16:40:00 [facility] 2 VW RIGHT 2022-07-28 16:20:00 [facility] XR PELVIS 1 OR 2 VW 2022-07-28 16:20:00 [facility] COMP. METABOLIC PANEL 2022-07-23 02:02:00 Lisa Murillo [facility] ([id number]) [facility] CBC WITH DIFF 2022-07-23 02:02:00 Lisa Murillo [facility] URINALYSIS 2022-07-23 01:59:00 Lisa Murillo [facility] CONSENT/REFUSAL FOR 2022-07-23 00:34:52 Doctor Jd [facility] DIAGNOSIS AND TREATMENT [facility] [place] ASSIGNMENT OF BENEFITS 2022-06-15 19:19:00 Doctor Jd, [facility] REFERRAL- 2022-01-10 05:01:00 Doctor Jd, [facility] REQUEST/RESPONSE [facility] [place] Plan of Care Planned Activity Planned Date Details Comments Source Future Scheduled 2023-02-07 Screening for [facility] Test 21:38:20 malignant neoplasm of colon (procedure) [code = 609625874] Future Scheduled 2023-02-07 Screening for [facility] Test 21:38:20 malignant neoplasm of colon (procedure) [code = 636307719] Future Scheduled 2023-02-07 Screening for [facility] Test 21:38:20 malignant neoplasm of colon (procedure) [code = 500580137] Future Scheduled 2023-02-07 COVID-19 VACCINE (#1) [facility] Test 21:38:20 [code = COVID-19 VACCINE (#1)] Future Scheduled 2023-02-07 Pneumococcal Vaccine: [facility] Test 21:38:20 Pediatrics (0 to 5 Years) and At-Risk Patients (6 to 64 Years) (1 - PCV) [code = Pneumococcal Vaccine: Pediatrics (0 to 5 Years) and At-Risk Patients (6 to 64 Years) (1 - PCV)] Future Scheduled 2023-02-07 Hepatitis C screening [facility] Test 21:38:20 (procedure) [code = 916269450] Future Scheduled 2023-02-07 Screening for [facility] Test 21:38:20 malignant neoplasm of cervix (procedure) [code = [id number]] Future Scheduled 2023-02-07 BREAST CANCER [facility] Test 21:38:20 SCREENING [code = BREAST CANCER SCREENING] Future Scheduled 2023-02-07 Screening for [facility] Test 21:38:20 malignant neoplasm of colon (procedure) [code = 361387039] Future Scheduled 2023-02-07 Screening for [facility] Test 21:38:20 malignant neoplasm of colon (procedure) [code = 702637294] Future Scheduled 2023-02-07 INFLUENZA VACCINE (#1) [facility] Test 21:38:20 [code = INFLUENZA VACCINE (#1)] Future Scheduled 2022-12-17 Screening for [facility] Test 02:52:15 malignant neoplasm of colon (procedure) [code = 508947713] Future Scheduled 2022-12-17 Screening for [facility] Test 02:52:15 malignant neoplasm of colon (procedure) [code = 415552390] Future Scheduled 2022-12-17 Screening for [facility] Test 02:52:15 malignant neoplasm of colon (procedure) [code = 206459340] Future Scheduled 2022-12-17 COVID-19 VACCINE (#1) [facility] Test 02:52:15 [code = COVID-19 VACCINE (#1)] Future Scheduled 2022-12-17 Pneumococcal Vaccine: [facility] Test 02:52:15 Pediatrics (0 to 5 Years) and At-Risk Patients (6 to 64 Years) (1 - PCV) [code = Pneumococcal Vaccine: Pediatrics (0 to 5 Years) and At-Risk Patients (6 to 64 Years) (1 - PCV)] Future Scheduled 2022-12-17 Hepatitis C screening [facility] Test 02:52:15 (procedure) [code = 102036631] Future Scheduled 2022-12-17 Screening for [facility] Test 02:52:15 malignant neoplasm of cervix (procedure) [code = 776190429] Future Scheduled 2022-12-17 BREAST CANCER [facility] Test 02:52:15 SCREENING [code = BREAST CANCER SCREENING] Future Scheduled 2022-12-17 Screening for [facility] Test 02:52:15 malignant neoplasm of colon (procedure) [code = 047003659] Future Scheduled 2022-12-17 Screening for [facility] Test 02:52:15 malignant neoplasm of colon (procedure) [code = 036813247] Future Scheduled 2022-12-17 INFLUENZA VACCINE (#1) [facility] Test 02:52:15 [code = INFLUENZA VACCINE (#1)] Future Scheduled 2022-11-14 Screening for [facility] Test 14:23:48 malignant neoplasm of colon (procedure) [code = 424533236] Future Scheduled 2022-11-14 Screening for [facility] Test 14:23:48 malignant neoplasm of colon (procedure) [code = 650507601] Future Scheduled 2022-11-14 Screening for [facility] Test 14:23:48 malignant neoplasm of colon (procedure) [code = 156553523] Future Scheduled 2022-11-14 COVID-19 VACCINE (#1) [facility] Test 14:23:48 [code = COVID-19 VACCINE (#1)] Future Scheduled 2022-11-14 Pneumococcal Vaccine: [facility] Test 14:23:48 Pediatrics (0 to 5 Years) and At-Risk Patients (6 to 64 Years) (1 - PCV) [code = Pneumococcal Vaccine: Pediatrics (0 to 5 Years) and At-Risk Patients (6 to 64 Years) (1 - PCV)] Future Scheduled 2022-11-14 Hepatitis C screening [facility] Test 14:23:48 (procedure) [code = 034579697] Future Scheduled 2022-11-14 Screening for [facility] Test 14:23:48 malignant neoplasm of cervix (procedure) [code = 604398187] Future Scheduled 2022-11-14 BREAST CANCER [facility] Test 14:23:48 SCREENING [code = BREAST CANCER SCREENING] Future Scheduled 2022-11-14 Screening for [facility] Test 14:23:48 malignant neoplasm of colon (procedure) [code = 839956560] Future Scheduled 2022-11-14 Screening for [facility] Test 14:23:48 malignant neoplasm of colon (procedure) [code = 859942702] Future Scheduled 2022-11-14 INFLUENZA VACCINE [facility] Test 14:23:48 [code = INFLUENZA VACCINE] Future Scheduled 2022-10-16 Screening for [facility] Test 10:27:41 malignant neoplasm of colon (procedure) [code = 338519740] Future Scheduled 2022-10-16 Screening for [facility] Test 10:27:41 malignant neoplasm of colon (procedure) [code = 422256268] Future Scheduled 2022-10-16 Screening for [facility] Test 10:27:41 malignant neoplasm of colon (procedure) [code = 891848578] Future Scheduled 2022-10-16 COVID-19 VACCINE (#1) [facility] Test 10:27:41 [code = COVID-19 VACCINE (#1)] Future Scheduled 2022-10-16 Pneumococcal Vaccine: [facility] Test 10:27:41 Pediatrics (0 to 5 Years) and At-Risk Patients (6 to 64 Years) (1 - PCV) [code = Pneumococcal Vaccine: Pediatrics (0 to 5 Years) and At-Risk Patients (6 to 64 Years) (1 - PCV)] Future Scheduled 2022-10-16 Hepatitis C screening [facility] Test 10:27:41 (procedure) [code = 361644985] Future Scheduled 2022-10-16 Screening for [facility] Test 10:27:41 malignant neoplasm of cervix (procedure) [code = 707739628] Future Scheduled 2022-10-16 BREAST CANCER [facility] Test 10:27:41 SCREENING [code = BREAST CANCER SCREENING] Future Scheduled 2022-10-16 Screening for [facility] Test 10:27:41 malignant neoplasm of colon (procedure) [code = 822721537] Future Scheduled 2022-10-16 Screening for [facility] Test 10:27:41 malignant neoplasm of colon (procedure) [code = 761413536] Future Scheduled 2022-10-16 [facility] 10:27:41 [code = INFLUENZA VACCINE] Future Scheduled 2022-10-05 Screening for [facility] Test 04:19:15 malignant neoplasm of colon (procedure) [code = 158516679] Future Scheduled 2022-10-05 Screening for [facility] Test 04:19:15 malignant neoplasm of colon (procedure) [code = 857150143] Future Scheduled 2022-10-05 Screening for [facility] Test 04:19:15 malignant neoplasm of colon (procedure) [code = 577658819] Future Scheduled 2022-10-05 COVID-19 [facility]ACCINE (#[facility]) [facility] Test 04:19:15 [code = COVID-19 VACCINE (#1)] Future Scheduled 2022-10-05 Hepatitis C screening [facility] Test 04:19:15 (procedure) [code = 817109161] Future Scheduled 2022-10-05 Screening for [facility] Test 04:19:15 malignant neoplasm of cervix (procedure) [code = 115623606] Future Scheduled 2022-10-05 BREAST CANCER [facility] Test 04:19:15 SCREENING [code = BREAST CANCER SCREENING] Future Scheduled 2022-10-05 Screening for [facility] Test 04:19:15 malignant neoplasm of colon (procedure) [code = 611592876] Future Scheduled 2022-10-05 Screening for [facility] Test 04:19:15 malignant neoplasm of colon (procedure) [code = 353892410] Future Scheduled 2022-10-05 [facility]INE [facility] 04:19:15 [code = INFLUENZA VACCINE] Future Scheduled 2022-08-10 COVID-19 [facility]ACCINE (#[facility] 13:16:26 [code = COVID-19 VACCINE (#1)] Future Scheduled 2022-08-10 Hep[facility] C screening [facility] Test 13:16:26 (procedure) [code = 872968064] Future Scheduled 2022-08-10 Screening for [facility] Test 13:16:26 malignant neoplasm of cervix (procedure) [code = 843049989] Future Scheduled 2022-08-10 BREAST CANCER [facility] Test 13:16:26 SCREENING [code = BREAST CANCER SCREENING] Future Scheduled 2022-08-10 COLONOSCOPY SCREENING [facility] Test 13:16:26 [code = COLONOSCOPY SCREENING] Future Scheduled 2022-08-10 [facility]FLUENZA VACCINE [facility] Test 13:16:26 [code = INFLUENZA VACCINE] Future Scheduled 2022-08-08 COVID-19 VACCINE (#1) [facility] Test 01:29:04 [code = COVID-19 VACCINE (#1)] Future Scheduled 2022-08-08 Hepatitis C screening [facility] Test 01:29:04 (procedure) [code = 935280327] Future Scheduled 2022-08-08 Screening for [facility] Test 01:29:04 malignant neoplasm of cervix (procedure) [code = 216611036] Future Scheduled 2022-08-08 BREAST CANCER [facility] Test 01:29:04 SCREENING [code = BREAST CANCER SCREENING] Future Scheduled 2022-08-08 COLONOSCOPY SCREENING [facility] Test 01:29:04 [code = COLONOSCOPY SCREENING] Future Scheduled 2022-08-08 INFLUENZA VACCINE [facility] Test 01:29:04 [code = INFLUENZA VACCINE] Goal Plan of Care Note [code = 22624-2] Goal Plan of Care Note [code = 04864-5] Goal Plan of Care Note [code = 60678-4] Goal Plan of Care Note [code = 33433-8] Goal Plan of Care Note [code = 39125-0] Goal Plan of Care Note [code = 72700-7] Goal Plan of Care Note [code = 07555-9] Goal Plan of Care Note [code = 83186-6] Goal Plan of Care Note [code = 13366-4] Goal Plan of Care Note [code = 89278-7] Goal Plan of Care Note [code = 62235-5] Goal Plan of Care Note [code = 26085-3] Goal Plan of Care Note [code = 76546-5] Goal Plan of Care Note [code = 55418-5] Goal Plan of Care Note [code = 86991-1] Goal Plan of Care Note [code = 25121-1] Goal Plan of Care Note [code = 02900-9] Goal Plan of Care Note [code = 39578-5] Goal Plan of Care Note [code = 26280-6] Goal Plan of Care Note [code = 62165-8] Goal Plan of Care Note [code = 96876-8] Goal Plan of Care Note [code = 52223-7] Goal Plan of Care Note [code = 38885-1] Goal Plan of Care Note [code = 03774-5] Goal Plan of Care Note [code = 92645-3] Goal Plan of Care Note [code = 76266-1] Goal Plan of Care Note [code = 07337-5] Goal Plan of Care Note [code = 25040-6] Goal Plan of Care Note [code = 61629-2] Goal Plan of Care Note [code = 66390-2] Goal Plan of Care Note [code = 83031-3] Goal Plan of Care Note [code = 46012-1] Goal Plan of Care Note [code = 37140-5] Goal Plan of Care Note [code = 59811-5] Goal Plan of Care Note [code = 39710-5] Goal Plan of Care Note [code = 76230-6] Goal Plan of Care Note [code = 23829-3] Goal Plan of Care Note [code = 65698-6] Goal Plan of Care Note [code = 34067-0] Goal Plan of Care Note [code = 69541-7] Goal Plan of Care Note [code = 22355-1] Goal Plan of Care Note [code = 76138-8] Goal Plan of Care Note [code = 58260-5] Goal Plan of Care Note [code = 97451-8] Goal Plan of Care Note [code = 32937-3] Goal Plan of Care Note [code = 79177-0] Goal Plan of Care Note [code = 89935-1] Goal Plan of Care Note [code = 60828-3] Goal Plan of Care Note [code = 99366-0] Goal Plan of Care Note [code = 50401-5] Goal Plan of Care Note [code = 97953-5] Goal Plan of Care Note [code = 47384-5] Goal Plan of Care Note [code = 31812-7] Goal Plan of Care Note [code = 60986-4] Goal Plan of Care Note [code = 44774-3] Goal Plan of Care Note [code = 97591-3] Goal Plan of Care Note [code = 07262-5] Goal Plan of Care Note [code = 93039-0] Goal Plan of Care Note [code = 06987-0] Goal Plan of Care Note [code = 95225-5] Goal Plan of Care Note [code = 64590-9] Goal Plan of Care Note [code = 34019-8] Goal Plan of Care Note [code = 07677-6] Goal Plan of Care Note [code = 74612-8] Goal Plan of Care Note [code = 90928-9] Goal Plan of Care Note [code = 93839-2] Goal Plan of Care Note [code = 46372-8] Goal Plan of Care Note [code = 24174-2] Goal Plan of Care Note [code = 94776-5] Goal Plan of Care Note [code = 95692-5] Goal Plan of Care Note [code = 93386-7] Goal Plan of Care Note [code = 09133-7] Goal Plan of Care Note [code = 14979-5] Goal Plan of Care Note [code = 54712-2] Goal Plan of Care Note [code = 66592-9] Goal Plan of Care Note [code = 92576-1] Goal Plan of Care Note [code = 32719-9] Goal Plan of Care Note [code = 96949-1] Goal Plan of Care Note [code = 94300-2] Goal Plan of Care Note [code = 08910-9] Goal Plan of Care Note [code = 25753-6] Goal Plan of Care Note [code = 94363-2] Goal Plan of Care Note [code = 54601-8] Goal Plan of Care Note [code = 28358-0] Goal Plan of Care Note [code = 81736-8] Goal Plan of Care Note [code = 65129-8] Goal Plan of Care Note [code = 73358-9] Goal Plan of Care Note [code = 81234-3] Goal Plan of Care Note [code = 39939-1] Goal Plan of Care Note [code = 47351-9] Goal Plan of Care Note [code = 38337-6] Goal Plan of Care Note [code = 59208-8] Goal Plan of Care Note [code = 13353-8] Goal Plan of Care Note [code = 20888-8] Goal Plan of Care Note [code = 29089-4] Goal Plan of Care Note [code = 49969-8] Goal Plan of Care Note [code = 29406-8] Goal Plan of Care Note [code = 98983-2] Goal Plan of Care Note [code = 74354-4] Goal Plan of Care Note [code = 86196-8] Goal Plan of Care Note [code = 80753-2] Goal Plan of Care Note [code = 45018-5] Goal Plan of Care Note [code = 90997-0] Goal Plan of Care Note [code = 54814-8] Goal Plan of Care Note [code = 06990-6] Goal Plan of Care Note [code = 66374-9] Goal Plan of Care Note [code = 32871-8] Goal Plan of Care Note [code = 68992-5] Goal Plan of Care Note [code = 48891-0] Goal Plan of Care Note [code = 80382-6] Goal Plan of Care Note [code = 77124-6] Goal Plan of Care Note [code = 30766-7] Goal Plan of Care Note [code = 68076-3] Goal Plan of Care Note [code = 21875-7] Goal Plan of Care Note [code = 20732-9] Goal Plan of Care Note [code = 68944-2] Goal Plan of Care Note [code = 20864-1] Goal Plan of Care Note [code = 07341-9] Goal Plan of Care Note [code = 83933-8] Goal Plan of Care Note [code = 45161-4] Goal Plan of Care Note [code = 61666-3] Goal Plan of Care Note [code = 46913-1] Goal Plan of Care Note [code = 11146-5] Goal Plan of Care Note [code = 62132-0] Goal Plan of Care Note [code = 27615-6] Goal Plan of Care Note [code = 25250-9] Goal Plan of Care Note [code = 01832-0] Goal Plan of Care Note [code = 61389-3] Goal Plan of Care Note [code = 26367-7] Goal Plan of Care Note [code = 04392-2] Goal Plan of Care Note [code = 87770-2] Goal Plan of Care Note [code = 08409-9] Goal Plan of Care Note [code = 16004-4] Goal Plan of Care Note [code = 26433-8] Goal Plan of Care Note [code = 86067-3] Goal Plan of Care Note [code = 66246-4] Goal Plan of Care Note [code = 62145-6] Goal Plan of Care Note [code = 62143-3] Goal Plan of Care Note [code = 14101-3] Goal Plan of Care Note [code = 38100-5] Goal Plan of Care Note [code = 98384-8] Goal Plan of Care Note [code = 06505-2] Goal Plan of Care Note [code = 39537-4] Goal Plan of Care Note [code = 89770-8] Goal Plan of Care Note [code = 11913-7] Goal Plan of Care Note [code = 12111-6] Goal Plan of Care Note [code = 36403-6] Goal Plan of Care Note [code = 57390-8] Goal Plan of Care Note [code = 03735-3] Goal Plan of Care Note [code = 18683-7] Goal Plan of Care Note [code = 70059-3] Goal Plan of Care Note [code = 56766-0] Goal Plan of Care Note [code = 44572-4] Goal Plan of Care Note [code = 94664-6] Goal Plan of Care Note [code = 52756-6] Goal Plan of Care Note [code = 89072-7] Goal Plan of Care Note [code = 14005-6] Goal Plan of Care Note [code = 71302-9] Goal Plan of Care Note [code = 39262-0] Goal Plan of Care Note [code = 89243-8] Goal Plan of Care Note [code = 71407-5] Goal Plan of Care Note [code = 74675-8] Goal Plan of Care Note [code = 05623-7] Goal Plan of Care Note [code = 27430-3] Goal Plan of Care Note [code = 88806-2] Goal Plan of Care Note [code = 33726-4] Goal Plan of Care Note [code = 35761-2] Goal Plan of Care Note [code = 54357-2] Goal Plan of Care Note [code = 92432-3] Goal Plan of Care Note [code = 94317-7] Goal Plan of Care Note [code = 57507-8] Goal Plan of Care Note [code = 79763-8] Goal Plan of Care Note [code = 59830-1] Goal Plan of Care Note [code = 14122-5] Goal Plan of Care Note [code = 87536-0] Goal Plan of Care Note [code = 17798-8] Goal Plan of Care Note [code = 28334-6] Goal Plan of Care Note [code = 92906-6] Goal Plan of Care Note [code = 70842-0] Goal Plan of Care Note [code = 06572-4] Goal Plan of Care Note [code = 78168-4] Goal Plan of Care Note [code = 82566-1] Goal Plan of Care Note [code = 22956-4] Goal Plan of Care Note [code = 91312-4] Goal Plan of Care Note [code = 60157-9] Goal Plan of Care Note [code = 96749-9] Goal Plan of Care Note [code = 08272-0] Goal Plan of Care Note [code = 53479-3] Goal Plan of Care Note [code = 48644-2] Goal Plan of Care Note [code = 21333-4] Goal Plan of Care Note [code = 30238-3] Goal Plan of Care Note [code = 71765-5] Goal Plan of Care Note [code = 53914-0] Goal Plan of Care Note [code = 38322-5] Goal Plan of Care Note [code = 00393-6] Goal Plan of Care Note [code = 16920-7] Goal Plan of Care Note [code = 04961-6] Goal Plan of Care Note [code = 50476-0] Goal Plan of Care Note [code = 04262-3] Goal Plan of Care Note [code = 83419-4] Goal Plan of Care Note [code = 93415-0] Goal Plan of Care Note [code = 65062-2] Goal Plan of Care Note [code = 17008-6] Goal Plan of Care Note [code = 31237-1] Goal Plan of Care Note [code = 42015-2] Goal Plan of Care Note [code = 19939-6] Goal Plan of Care Note [code = 57930-4] Goal Plan of Care Note [code = 45340-2] Goal Plan of Care Note [code = 26934-1] Goal Plan of Care Note [code = 54875-0] Goal Plan of Care Note [code = 86136-3] Goal Plan of Care Note [code = 23343-8] Goal Plan of Care Note [code = 35161-7] Goal Plan of Care Note [code = 11845-9] Goal Plan of Care Note [code = 24401-6] Goal Plan of Care Note [code = 58448-6] Goal Plan of Care Note [code = 67872-6] Goal Plan of Care Note [code = 97009-1] Goal Plan of Care Note [code = 03526-0] Goal Plan of Care Note [code = 05069-2] Goal Plan of Care Note [code = 84682-1] Goal Plan of Care Note [code = 34914-6] Goal Plan of Care Note [code = 60190-6] Goal Plan of Care Note [code = 45666-6] Goal Plan of Care Note [code = 19704-4] Goal Plan of Care Note [code = 50693-5] Goal Plan of Care Note [code = 31320-3] Goal Plan of Care Note [code = 45707-5] Goal Plan of Care Note [code = 22291-3] Goal Plan of Care Note [code = 42421-9] Goal Plan of Care Note [code = 82665-8] Goal Plan of Care Note [code = 11855-7] Goal Plan of Care Note [code = 45645-9] Goal Plan of Care Note [code = 00452-1] Goal Plan of Care Note [code = 48648-1] Goal Plan of Care Note [code = 78306-2] Goal Plan of Care Note [code = 96541-4] Goal Plan of Care Note [code = 93016-1] Goal Plan of Care Note [code = 14684-6] Goal Plan of Care Note [code = 30148-2] Goal Plan of Care Note [code = 23262-8] Goal Plan of Care Note [code = 57154-5] Goal Plan of Care Note [code = 14393-9] Goal Plan of Care Note [code = 44149-5] Goal Plan of Care Note [code = 08295-2] Goal Plan of Care Note [code = 80184-2] Goal Plan of Care Note [code = 60861-1] Goal Plan of Care Note [code = 47235-6] Goal Plan of Care Note [code = 46939-5] Goal Plan of Care Note [code = 01014-4] Goal Plan of Care Note [code = 70494-9] Goal Plan of Care Note [code = 45638-1] Goal Plan of Care Note [code = 75836-1] Goal Plan of Care Note [code = 01879-5] Goal Plan of Care Note [code = 75473-5] Goal Plan of Care Note [code = 55189-7] Goal Plan of Care Note [code = 92097-3] Goal Plan of Care Note [code = 73288-2] Goal Plan of Care Note [code = 19458-5] Goal Plan of Care Note [code = 82042-3] Goal Plan of Care Note [code = 21479-4] Goal Plan of Care Note [code = 68573-6] Goal Plan of Care Note [code = 44746-0] Goal Plan of Care Note [code = 39772-8] Goal Plan of Care Note [code = 85184-8] Goal Plan of Care Note [code = 30107-0] Goal Plan of Care Note [code = 90140-0] Goal Plan of Care Note [code = 47675-9] Encounters Start End Encounter Admission Attending Care Care Encounter Source Date/Time Date/Time Type Type Clinicians Facility Department ID 2021-07-15 Outpatient [facility] [id number] [facility] 14:49:46 [id number] [facility] 2021-07-13 Outpatient [facility] [id number] [facility] 13:18:38 [id number] [facility] 2023-02-26 2023-02-26 Outpatient Issa [facility] [id number] [facility] 13:45:00 13:45:00 [facility] 2023-02-11 2023-02-11 Outpatient GC_GCBZW_Ka PRIV PRIV [id number] [facility] 00:00:00 00:00:00 sidney_S [id number] [facility] al 2023-02-09 2023-02-09 Outpatient Issa [facility] [id number] Univers 10:00:00 10:00:00 [facility] 2023-02-08 2023-02-08 Outpatient [facility] [id number] Univers 09:15:00 09:15:00 VANESSA VARELAIG [facility] 2023-01-22 2023-01-22 Orders Doctor ROBIN 1.2.840.114 [id number] Univers 00:00:00 00:00:00 Only Unassigned, AISHA 350.1.13.10 ity of [place] [facility] 4.2.7.2.686 Dany as [phone] [facility] [address] 2023-01-18 2023-01-18 Patient Doctor ROBIN 1.2.840.114 [id number] Univers 00:00:00 00:00:00 Secure Msg Unassigned, AISHA 350.1.13.10 ity of [facility] [facility] 4.2.7.2.686 Dany as [phone] [facility] [address] 2023-01-12 2023-01-12 Outpatient R ERIN [facility] [id number] Univers 14:00:00 14:00:00 ERIN ARGUELLO [facility] 2023-01-12 2023-01-12 Telephone Kirit [facility] 1.2.840.114 [id number] Univers 00:00:00 00:00:00 Erin BARNES 350.1.13.10 ity of [place].2.686 [place] [facility] [phone] [facility] [place] [address] [place] [facility] 2023-01-08 2023-01-08 Orders Doctor 1.2.840.6 [id number] Univers 00:00:00 00:00:00 Only Unassigned, 05355.1.1 ity of [place] 3.104.2.7 [place] .3.611225 Medica l .8 [place] 2023-01-01 2023-01-01 Outpatient TITO [facility] [id number] Seth 10:19:41 10:19:41 99511 F Kristian 2023-01-01 2023-01-01 Outpatient R ERIN [facility] [id number] Univers 10:00:00 10:00:00 ERIN ARGUELLO [facility] 2022-12-15 2022-12-15 Outpatient R ERIN [facility] [id number] Univers 10:00:00 10:00:00 ERIN ARGUELLO [facility] 2022-11-10 2022-11-10 Outpatient R MAR[facility] U [facility] [id number] [facility] 16:00:00 16:00:[address] [facility] 2022-10-17 2022-10-25 Inpatient EM Jammie [facility] MED [id number] [facility] 08:35:00 16:15:00 Sandoval 71 [facility] are [facility] 2022-10-21 2022-10-21 Outpatient JammieMARCO REF [id number] [facility] 16:26:00 16:26:00 [facility] 66 [facility] are [facility] 2022-10-12 2022-10-12 Anesthesia Bransheree, 1.2.840.1 [id number] Methodi 23:59:59 23:59:59 Event Husam 19755.1.[address] [place] 3.430.2.7 Hospit a .3.858665 l .8 2022-10-11 2022-10-12 Emergency Alhaji Trujilloc Campa 1.2.840.1 [id number] Methodi 12:23:00 13:19:00 Mathew Viera 09404.1.[address] 3.430.2.7 Hospit a .3.276808 l .8 2022-10-11 2022-10-12 [facility] 1.2.840.1 [id number] Methodi 12:23:00 13:19:00 Mathew Viera 85546.1.[address] 3.430.2.7 Hospit a .3.314269 l .8 2022-10-11 2022-10-11 Documentat Provider, 1.2.840.1 [id number] 2 [id number] Methodi 00:00:00 00:00:00 ion Unknown 09326.1.[address] 3.430.2.7 Hospit a .3.458954 l .8 2022-10-11 2022-10-11 Documentat Provider, 1.2.840.1 [id number] 2 [id number] Methodi 00:00:00 00:00:00 ion Unknown 52344.1.[address] 3.430.2.7 Hospit a .3.103188 l .8 2022-10-10 2022-10-10 Patient Doctor ROBIN 1.2.840.114 [id number] Univers 00:00:00 00:00:00 Secure Msg Unassigned, AISHA 350.1.13.10 ity of [place] [facility] 4.2.7.2.686 Dany as [phone] [facility] [address] 2022-10-07 2022-10-08 Emergency X BINA, [facility] ERT [id number] Univers 22:45:00 03:24:00 MARIIA wyliey o f [facility] 2022-10-07 2022-10-08 Emergency Bina, TRAUMA 1.2.521.454 [id number] Univers 22:45:00 03:24:00 [facility] 350.1.13.10 i [place] [phone] [facility] [address] 2022-09-24 2022-09-24 [facility]phone [facility] 1.2.880.091 [id number] Univers 00:00:00 00:00:00 Stefania Carter SPECIALTY 350.1.13.10 ity [place] [phone] Nm dical VICTORY [address] [facility] 2022-08-07 2022-08-07 Outpatient FOG_Goytia_ AOSM AOSM 652 5538-20 Sowmya 00:00:00 00:00:00 Cody [id number] Ortho pe [facility] 2022-07-28 2022-07-28 Emergency Annita, 1.2.840.1 [id number] Methodi 10:49:00 14:17:[address] 3.430.2.7 Hospit a .3.460150 l .8 2022-07-28 2022-07-28 Emergency Annita, 1.2.840.1 [id number] Methodi 10:49:00 14:17:[address] 3.430.2.7 Hospit a .3.922466 l .8 2022-07-28 2022-07-28 Outpatient [facility] [id number] Univers 09:00:00 09:20:09 STEFANIA renee of [facility] 2022-07-28 2022-07-28 Office [facility] 1.2.840.114 [id number] Univers 09:00:00 09:20:09 Visit Stefania Carter SPECIALTY 350.1.13.10 ity of CARE 4.2.7.2.686 [facility] [place] AT [id number] Nm dical AARON [address] [place] [address] 2022-07-28 2022-07-28 Travel 1.2.840.1 [id number] Methodi 00:00:00 00:00:[address] 3.430.2.7 0.2.7.3.698 Ho spita .[id number] 084.8 l .8 2022-07-28 2022-07-28 Travel 1.2.840.1 1.2.063.236 [id number] Methodi 00:00:00 00:00:[address] 3.430.2.7 0.2.7.3.698 Ho spita .3.992300 084.8 l .8 2022-07-28 2022-07-28 [facility]phone [facility] 1.2.404.930 [id number] Univers 00:00:00 00:00:00 Stefania Carter SPECIALTY 350.1.13.10 ity of CARE 4[place]2.7.2.686 [place] CENTER AT [phone] Nm dicevelin WALKER [address] [address] 2022-07-22 2022-07-23 Emergency X CACACE, [facility] ERT [id number] Univers 19:42:00 00:14:00 LISA ity [facility] 2022-07-22 2022-07-23 Emergency Cacace, TRAUMA 1.2.346.239 [id number] Univers 19:42:00 00:14:00 [facility] 350.1.13.10 i [place] [id number] [facility] [address] 2022-07-06 2022-07-06 Outpatient [facility] [id number] Univers 16:10:00 16:10:00 STEFANIA ity [facility] 2022-07-04 2022-07-04 Outpatient R [facility] [id number] Univers 15:00:00 15:00:00 ity [facility] 2022-06-30 2022-06-30 Outpatient R [facility] [id number] Univers 09:00:00 09:00:00 ity [facility] 2022-06-29 2022-06-29 [facility] 1.2.840.114 1 [id number] Univers 00:00:00 00:00:00 Stefania TOBIN 350.1.13.10 it y of C[place].2.686 [place] [facility] [phone] Nm dical [address] 2022-06-15 2022-06-15 [facility] [id number] Univers 13:20:23 23:59:00 ANDERSON ity of [facility] 2022-06-15 2022-06-15 [facility] 1.2.840.114 [id number] Univers 13:20:23 23:59:00 Encounter Anderson TREJO 350.1.13.10 ity of [place] CAMPUS [id number] [facility] [address] 2022-06-15 2022-06-15 [facility] 1.2.840.114 1 [id number] Univers 00:00:00 00:00:00 Dionisio TRANPEC 350.1.13.10 it[place] of [place] CENTER [id number] [facility] [place] [address] [facility] 2022-06-15 2022-06-15 Orders Doctor ROBIN 1.2.840.114 [id number] Univers 00:00:00 00:00:00 Only Unassigned, AISHA 350.1.13.10 ity of [place] [facility] 4.2.7.2.686 Dany as [id number] [facility] [address] 2022-05-30 2022-05-30 Outpatient R [facility] [id number] Univers 15:30:00 15:30:00 ity of [facility] 2022-05-10 2022-05-10 Patient Doctor [facility] 1.2.840.114 [id number] Univers 00:00:00 00:00:00 Secure Msg Unassigned, PRIMARY 350.1.13.10 ity of [place] [id number] Nm dical [address] [place] [address] 2022-05-04 2022-05-04 Outpatient [facility] [id number] 202 Seth 14:40:00 14:40:00 65823 F Kristian 2022-05-03 2022-05-03 Outpatient [id number]- [id number] e3 0n1556-3 00:00:00 00:00:00 Visit 261b-4edf 61b-4edf-8 -8139-75d 139-56w449 9898737rr 9190eb 2022-04-28 2022-04-28 Patient [facility] 1.2.840.114 [id number] Univers 00:00:00 00:00:00 Secure Msg Shermeen PRIMARY 350.1.13.10 it[place] [id number] Nm dical [address] 2022-04-26 2022-04-26 Telephone [facility] 1.2.207.225 [id number] Univers 00:00:00 00:00:00 Shermeen PRIMARY 350.1.13.10 i ty of [place]2.[place] [id number] Nm dical [address] 2022-04-25 2022-04-25 Stereo Operator Pcp-Lab [facility] 1.2.840.114 [id number] [id number] Univers 15:15:00 15:30:00 Visit Lex Ochoa PRIMARY 350.1.13.10 ity of [place]2.[place] [id number] Nm dical [address] 2022-04-25 2022-04-25 Outpatient R OCHOA [facility] [id number] [facility] 14:00:00 15:08:22 [facility] 2022-04-25 2022-04-25 Office El Scales Team [facility] 1.2.840. 114 [id number] [facility] 14:00:00 15:08:22 Visit Lex Ochoa PRIMARY 350.1.13.10 it[place] [id number] Nm dicevelin [address] 2022-03-16 2022-03-16 Outpatient [id number]- [id number] 2953e2-5 00:00:00 00:00:00 Visit 67s3-3394 7e9-3397-2 -40q3-09v 4f2-99x191 7551y37n7 2c67e7 2022-02-27 2022-02-27 Outpatient R RAMIRO [facility] [id number] [id number] [facility] 08:00:00 08:00:00 DOROTEO [facility] 2022-02-06 2022-02-06 Outpatient R NINA SALGADO [facility] [id number] Univers 10:30:00 10:30:00 NINA SALGADO [facility] 2022-02-01 2022-02-01 Outpatient [id number]- [id number] 2w7g19-n 00:00:00 00:00:00 Visit fce7-452a ce7-452a-9 -924a-d2a 24a-i5r294 664o1y827 o1i315 2022-01-27 2022-01-27 Outpatient [id number]- [id number] 82sq43-j 00:00:00 00:00:00 Visit l0d9-759a 1n7-201z-o -kt6x-b27 d9o-q49p7d g5j303b65 394e27 2022-01-10 2022-01-10 Orders Doctor ROBIN 1.2.840.114 [id number] Univers 00:00:00 00:00:00 Only Unassigned, AISHA 350.1.13.10 ity of [place] [facility] 4.2.7.2.686 Dany as [id number] [place] [address] 2022-01-10 2022-01-10 Outpatient [id number]- [id number] 1f 00812g-3 00:00:00 00:00:00 Visit 8q46-6w0d x49-6j0d-t -g13j-vku 06b-baa1f0 2y4dx61v4 fa00b2 2022-01-07 2022-01-07 Outpatient [id number]- [id number] f3 65pf94-1 00:00:00 00:00:00 Visit 2661-44e8 661-44e8-8 -1h91-965 q10-804i81 h43ho315d ry819k 2021-11-30 2021-11-30 Outpatient [id number]- [id number] 6a a2003c-4 00:00:00 00:00:00 Visit 7561-8788 202-4562-8 -4q23-906 c53-890028 2896w0692 5s9807 2021-11-25 2021-11-25 Outpatient jmwuh261- [id number] ca oaw828-8 00:00:00 00:00:00 Visit 1694-4ca5 694-4ca5-9 -69m3-534 8s8-2952m6 2e0630861 015340 6924-07-26 2021-11-08 Outpatient 14mh8x33- [id number] 42 qc1n70-7 00:00:00 00:00:00 Visit 2pu4-58a7 ce1-48a3-b -n685-2y3 658-7a18e3 4i3947cah 625efb 2021-06-21 2021-06-21 Outpatient R YARIEL [facility] [id number] Univers 11:00:00 11:00:00 ILA [facility] 2020-07-12 2020-07-12 Outpatient R LALA, [facility] [id number] Univers 09:30:00 09:30:00 ATTENDING [facility] 2020-07-01 2020-07-01 [facility] 1.2.840.114 [id number] 00:00:00 00:00:00 Outreach Kirk PRIMARY 350.1.13.10 Josep CARE 4.2.7.2.686 PAVILLION [id number] 388 2020-07-01 2020-07-01 Patient [facility] 1.2.840.114 [id number] Univers 00:00:00 00:00:00 Outreach Kirk PRIMARY 350.1.13.10 i ty of [place] [id number] [address] 2020-06-30 2020-06-30 [address] [facility] [id number] Univers 10:40:00 10:40:00 SREEKANTH [facility] 2020-05-06 2020-05-06 Outpatient R DOROTHEA, [facility] [id number] Univers 11:00:00 11:00:00 JUAN CARLOS [facility] 2020-03-09 2020-03-09 Iam [facility] 1.2.840.114 [id number] 133 00:00:00 00:00:00 [place] M PRIMARY 350.1.13.10 CARE 4.2.7.2.686 PAVILLION [id number] 390 2020-03-09 2020-03-09 Iam [facility] 1.2.840.114 [id number] 133 Univers 00:00:00 00:00:00 [place] M PRIMARY 350.1.13.10 it y [place] [id number] [facility] [address] 2020-01-27 2020-01-27 Iam [facility] 1.2.840.114 [id number] 652 Univers 00:00:00 00:00:00 Ila M PRIMARY 350.1.13.10 it [place]2.[place] [id number] [facility] [address] 2020-01-27 2020-01-27 Iam [facility] 1.2.840.114 [id number] 652 00:00:00 00:00:00 Ila M PRIMARY 350.1.13.10 CARE 4.2.7.2.686 PAVILLION [id number] [facility] 2019-12-28 2019-12-28 Iam [facility] 1.2.840.114 [id number] 350 Univers 00:00:00 00:00:00 Lynda PRIMARY 350.1.13.10 it y [place]2.[place] [id number] [address] 2019-12-28 2019-12-28 Iam [facility] 1.2.840.114 [id number] 350 00:00:00 00:00:00 Lynda PRIMARY 350.1.13.10 CARE 4.2.7.2.686 PAVILLION [id number] [facility] 2019-12-25 2019-12-25 [address] [id number] Univers 13:30:00 13:30:00 STEFANIA renee [facility] 2019-12-24 2019-12-24 Iam [facility] 1.2.840.114 [id number] Univers 00:00:00 00:00:00 Lynda PRIMARY 350.1.13.10 it y [place] [id number] [address] 2019-12-24 2019-12-24 Iam [facility] 1.2.840.114 [id number] 956 00:00:00 00:00:00 Lynda PRIMARY 350.1.13.10 CARE 4.2.7.2.686 PAVILLION [id number] 388 2019-12-18 2019-12-18 [address] [facility] [facility] [id number] 0309 Univers 08:30:00 08:30:00 ILA [facility] 2019-12-12 2019-12-12 Refill [facility] 1.2.840.114 [id number] 078 [facility] 00:00:00 00:00:00 Juan Carlos J PRIMARY 350.1.13.10 it y [place]2.[place] [id number] [facility] [address] 2019-12-12 2019-12-12 Refill [facility] 1.2.840.114 [id number] 00:00:00 00:00:00 Juan Carlos J PRIMARY 350.1.13.10 CARE 4.2.7.2.686 PAVILLION [id number] [facility] 2019-12-10 2019-12-10 [facility] R [facility] [id number] Univers 11:00:00 11:00:00 ILA [facility] 2019-12-09 2019-12-09 Refill [facility] 1.2.840.114 [id number] 474 [facility] 00:00:00 00:00:00 Juan Carlos J PRIMARY 350.1.13.10 it y of [place]2.[place].2.[place] [id number] [address] 2019-12-09 2019-12-09 Refill DoylegordonL[facility]ELACE [facility] 1.2.840.114 [id number] 832 [facility] 00:00:00 00:00:00 Ila M PRIMARY 350.1.13.10 it y of [place]2.[place] [id number] [facility] [address] 2019-12-09 2019-12-09 Refill [facility] 1.2.840.114 [id number] 474 00:00:00 00:00:00 Juan Carlos J PRIMARY 350.1.13.10 CARE 4.2.7.2.686 PAVILLION [id number] [facility] 2019-12-09 2019-12-09 [facility] 1.2.840.114 [id number] 00:00:00 00:00:00 Ila M PRIMARY 350.1.13.10 CARE 4.2.7.2.686 PAVILLION [id number] 390 2019-12-04 2019-12-04 Telephone [facility] 1.2.840.114 [id number] [id number] Univers 00:00:00 00:00:00 Lynda PRIMARY 350.1.13.10 it y of [place]2.[place] [id number] [address] 2019-12-04 2019-12-04 Telephone [facility] 1.2.840.114 [id number] 00:00:00 00:00:00 Lynda PRIMARY 350.1.13.10 CARE 4.2.7.2.686 PAVILLION [id number] [facility] 2019-12-02 2019-12-02 Office [facility] 1.2.840.114 [id number] 213 [facility] 09:06:15 10:45:17 Visit Juan Carlos J PRIMARY 350.1.13.10 it y of C[place]2.7.2.[place] [id number] [address] 2019-12-02 2019-12-02 Office [facility] 1.2.840.114 [id number] [facility] 09:06:15 10:45:17 Visit Juan Carlos J PRIMARY 350.1.13.10 CARE 4.2.7.2.686 PAVILLION [id number] [facility] 2019-12-02 2019-12-02 Outpatient R DOROTHEA [facility] [id number] Univers 09:30:00 09:30:00 JUAN CARLOS renee [facility] 2019-12-02 2019-12-02 Telephone [facility] 1.2.840.114 [id number] [id number] [facility] 00:00:00 00:00:00 Juan Carlos J PRIMARY 350.1.13.10 it y of [place] [id number] [address] 2019-12-01 2019-12-01 Outpatient R YARIEL [facility] [id number] Univers 10:00:00 10:00:00 ILA renee [facility] 2019-10-15 2019-10-15 Outpatient R UNKNOWN, [facility] [id number] Univers 13:30:00 13:30:00 ATTENDING ity of [facility] 2019-10-09 2019-10-09 [facility] 1.2.840.114 [id number] Univers 00:00:00 00:00:00 Lynda PRIMARY 350.1.13.10 it y of [place]2.[place] [id number] [facility] [address] 2019-10-08 2019-10-08 Telephone [facility] 1.2.840.114 [id number] Univers 00:00:00 00:00:00 Lynda PRIMARY 350.1.13.10 it y of C[place]2.[place].2.[place] [id number] [facility] [address] 2019-10-06 2019-10-06 [facility] 1.2.840.114 [id number] 122 Univers 00:00:00 00:00:00 Ila M PRIMARY 350.1.13.10 it y of C[place].2.[place] [id number] [facility] [address] 2019-09-30 2019-09-30 [facility] 1.2.840.114 [id number] Univers 09:56:40 10:26:40 ne Visit Ila M PRIMARY 350.1.13.10 i ty of C[place]2.[place].2.[place] [id number] [facility] [address] 2019-09-30 2019-09-30 Outpatient R YARIEL [facility] [id number] Univers 09:30:00 09:30:00 ILA ity of [facility] 2019-09-22 2019-09-22 Iam [facility] 1.2.840.114 [id number] Univers 00:00:00 00:00:00 Lynda PRIMARY 350.1.13.10 it y of C[place]2.[place] [id number] [facility] [address] 2019-09-02 2019-09-04 Telemedici [facility] 1.2.840.114 [id number] Univers 07:24:21 09:05:02 ne Visit Lynda PRIMARY 350.1.13.10 i ty of C[place] 4.2.7.2.[place] [id number] [address] 2019-09-04 2019-09-04 Refcarlitos ShultzLOVELACE [facility] 1.2.840.114 [id number] 667 Univers 00:00:00 00:00:00 Lynda PRIMARY 350.1.13.10 it y of C[place]2.[place].2.[place] [id number] [address] 2019-09-02 2019-09-02 Outpatient R CARRINGTON [facility] [id number] Univers 11:00:00 11:00:00 LYNDA ity [facility] 2019-09-01 2019-09-01 Stereo Operator [facility] UNIVERSIT 1.2.840.114 [id number] Univers 08:58:21 09:13:21 Visit Juan Carlos Piedra [facility] 350.1.13.10 ity of CLINICS 4.2.7.2.[place] [id number] [address] 2019-09-01 2019-09-01 Outpatient R DOROTHEA [facility] [id number] Univers 09:00:00 09:00:00 [facility]OS [facility] 2019-08-24 2019-08-24 [facility] 1..840.114 [id number] Univers 00:00:00 00:00:00 Lynda PRIMARY 350.1.13.10 it [place] [id number] [address] 2019-08-08 2019-08-08 Outpatient R EDIS [facility] [id number] Univers 14:20:00 14:20:00 JV ity [facility] 2019-08-07 2019-08-07 Telephone [facility] 1.2.840.114 [id number] Univers 00:00:00 00:00:00 Lynda PRIMARY 350.1.13.10 it y of [place].2.[place] [id number] [address] 2019-08-07 2019-08-07 Telephone dAdisonL[facility]ELACE [facility] 1.2.683.535 [id number] 6117 Univers 00:00:00 00:00:00 Deep PRIMARY 350.1.13.10 it y of [place]2.[place].2.[place] [id number] [address] 2019-08-06 2019-08-06 [facility] 1.2.840.114 [id number] Univers 00:00:00 00:00:00 Lynda PRIMARY 350.1.13.10 it y of [place]2.7.2.[place] [id number] [address] 2019-08-05 2019-08-05 Telephone [facility] 1.2.062.133 [id number] 0890 Univers 00:00:00 00:00:00 [facility] PRIMARY 350.1.13.10 it y of [place]2.[place].2.[place] [id number] [address] 2019-08-01 2019-08-01 Out[address] [facility] [id number] Univers 15:10:00 15:10:00 PAULINA renee [facility] 2019-08-01 2019-08-01 Telemedici Mick Jaime [facility] 1.2.840. 114 [id number] Univers 13:53:58 14:23:58 ne Visit Paulina Casanova K PRIMARY 350.1.13. 10 ity of [place]2.7.2.[place] [id number] [address] 2019-08-01 2019-08-01 [facility] 1.2.840.114 [id number] 783 Univers 00:00:00 00:00:00 Lynda PRIMARY 350.1.13.10 it y of [place]2.7[place]2.[place] [id number] [address] 2019-08-01 2019-08-01 Telephone RUST 1.2.840.114 [id number] Univers 00:00:00 00:00:00 Lynda PRIMARY 350.1.13.10 it y of [place]2.[place] [id number] [address] 2019-07-28 2019-07-28 [facility] 1.2.840.114 [id number] 951 Univers 00:00:00 00:00:00 Lynda PRIMARY 350.1.13.10 it y of [place]2.7.2.[place] [id number] [address] 2019-07-21 2019-07-21 [facility] 1.2.840.114 750 [id number] Univers 00:00:00 00:00:00 Lynda PRIMARY 350.1.13.10 it y of C[place]2.[place].2.[place] [id number] [address] 2019-07-18 2019-07-18 [facility] 1.2.840.114 [id number] 554 Univers 00:00:00 00:00:00 Lynda PRIMARY 350.1.13.10 it y of C[place] 4[place]2.7.2.[place] [id number] [address] 2019-07-17 2019-07-17 [facility] 1.2.840.114 [id number] 998 Univers 00:00:00 00:00:00 Lynda PRIMARY 350.1.13.10 it y of C[place]2.7.2.[place] [id number] [address] 2019-07-16 2019-07-16 [facility] 1.2.840.114 [id number] 404 Univers 00:00:00 00:00:00 Lynda PRIMARY 350.1.13.10 it y of C[place].2.7.2.[place] [id number] [address] 2019-07-14 2019-07-14 [facility] 1.2.840.114 [id number] [id number] Univers 00:00:00 00:00:00 Lynda PRIMARY 350.1.13.10 it y of C[place].2.7.2.[place] [id number] [facility] [address] 2019-07-14 2019-07-14 Refill [facility] 1.2.840.114 06854 900 Univers 00:00:00 00:00:00 Lynda PRIMARY 350.1.13.10 it y of C[place] 4.2.7.2.[place] [id number] [address] 2019-07-08 2019-07-08 Telemedici [facility] 1.2.840.114 [id number] Univers 08:06:45 08:36:45 ne Visit Lynda PRIMARY 350.1.13.10 i ty of CARE [place].2.7.2.[place] [id number] [address] 2019-07-08 2019-07-08 Outpatient [facility] [id number] Univers 08:30:00 08:30:00 LYNDA ity [facility] 2019-07-06 2019-07-06 Nurse ROBIN Vogel 1.2.840.114 [id number] Univers 00:00:00 00:00:00 Triage Mariangel LEONARD 350.1.13.10 i ty of [facility] 4.2.7.2.686 Dany as [id number] [address] 2019-07-06 2019-07-06 Telephone [facility] 1.2.840.114 [id number] Univers 00:00:00 00:00:00 Lynda PRIMARY 350.1.13.10 it y of [place]7.2.[place] [id number] [address] 2019-06-24 2019-06-24 Refill [facility] 1.2.840.114 [id number] 936 Univers 00:00:00 00:00:00 Lynda PRIMARY 350.1.13.10 it y of C[place].2.7.2.[place] [id number] [address] 2019-05-13 2019-05-13 Telephone [facility] 1.2.840.114 [id number] [id number] Univers 00:00:00 00:00:00 Lynda PRIMARY 350.1.13.10 it y of C[place]2.7.2.[place] [id number] Nm dical [address] 2019-05-13 2019-05-13 Telephone [facility] 1.2.466.330 [id number] 0293 Univers 00:00:00 00:00:00 Christopher PRIMARY 350.1.13.10 ity of [place].7.2.[place] [id number] [facility] [address] 2019-04-04 2019-04-04 [address] 44059 75041 Univers 14:50:00 15:10:33 BRADEN ity of [facility] 2018-12-30 2018-12-30 Telephone [facility] 1.2.020.377 [id number] 2754 Univers 00:00:00 00:00:00 Jasson-Monika PRIMARY 350.1.13.10 ity of [place]2.7.2.[place] [id number] Nm dical [address] 2018-11-25 2018-11-25 [facility] Arturo Rowley 1.2.840.114 11055 913 [facility] 06:56:56 23:59:00 Encounter Aparna Sarmiento [facility] 350.1.13.10 ity of [place] [id number] [facility] [address] 2017-09-05 2017-10-23 Outpatient [facility] [id number] [address] [place] 00:00:00 00:00:00 [facility] 2017-10-18 2017-10-18 Outpatient [facility] [id number] 3 [place] 21:09:01 21:09:01 [facility] 2016-04-27 2016-09-27 Outpatient [facility] [id number] 97 [place] 00:00:00 00:00:00 [facility] Results Test Description Test Time Test Comments Results Result [facility] e Comments - DUP VEIN UNI RT 2022-10-25 12:00:00 [facility] : 1975 Sex: F Donald sotelo Name: CYNDIE PENN Unit No: [id number] EXAMS: CPT CODE: [id number] [place] 77[address] - DUP VEIN UNI RT INDICATION:Right leg [...] and signed by: AMALIA HALL M.D. CC: Sandoval Agudelo MD Technologist: BRICE DAWSON AB,T; Jelly [facility] Probe: Trscr Dt/Tm: 10/25/2022 (1200) by:[email or web address] Printed Date/Time: 10/25/2022 (1203) Name: CYNDIE PENN [facility] Phys: Sandoval Griffith MD [address] : 1975 Age: 46 Sex: [place] [address] Loc: P.0702 1 Exam Date: 10/25/2022 Status: ADM IN PH: FAX: PAGE 1 Signed Report HGB HCT 2022-10-24 05:50:00 Test Item Value Reference Range Interpretation Comme nts HEMOGLOBIN (test code = HGB) 8.3 g/dL 12.0-16.0 L HEMATOCRIT (test code = HCT) 26.4 % 37.0-47.0 L HGB [id number] 07:37:00 Test Item Value Reference Range Interpretation Comments HEMOGLOBIN (test code = HGB) 8.4 g/dL 12.0-16.0 L HEMATOCRIT (test code = HCT) 26.1 % 37.0-47.0 L BASIC METABOLIC [id number] 06:41:00 Test Item Value Reference Range Interpretation [...] mg/dL 8.7-10.4 L = CA) CBC W/AUTO [id number] 06:22:00 Test Item Value Reference Range Interpretation [...] 3/uL 0.0-0.20 N - XR FLUOROSCOPY 0-60 [id number] 13:44:00 [facility] : 1975 Sex: FPatient Name: CYNDIE PENN Unit No: [id number] EXAMS: CPT CODE: [id number] XR FLUOROSCOPY 0- 60 MIN 48774 Fluoroscopy Location Code: D4 CLINICAL HISTORY: Right hip fracture Comments: Fluoroscopy was provided during total right hip arthroplasty. Approximately fluoroscopy time was 35.1 seconds. 2 fluoroscopic spot images were taken. IMPRESSION: Fluoroscopy services provided. Please see operative report for full details. at 1344 Reported and signed by: ALEXANDRA PEPE M.D. CC: Sandoval Agudelo MD Technologist: NIR DOLAN(R) Fluoro Time: DAP (Gy m2): Air Kerma (mGy): Trscr Dt/Tm: 10/21/2022 (1105) by:[email or web address] Printed Date/Time: 10/21/2022 (5064) Name: CYNDIE PENN [facility] Phys: [email or web address] - Sandoval Agudelo MD [address] : 1975 Age: 46 Sex: [place] [address] Loc: P.0702 1 Exam Date: 10/21/2022 Status: ADM IN PH: FAX: PAGE 1 Signed Report- XR HIP W/PEL UNI 2+V [id number] 13:43:00 [facility] : 1975 Sex: FPatient Name: CYNDIE PENN Unit No: [id number] EXAMS: CPT CODE: [id number] XR HIP W/PEL UNI 2+[place] [address] Right hip, 2 views Location Code: D4 CLINICAL HISTORY: post op COMMENTS: AP and frogleg lateral views of the right hip demonstrate postoperative total right hip arthroplasty which is in satisfactory alignment. Hardware is intact. Postoperative surgical lor noted. IMPRESSION: 1. Stable postoperative total right hip arthroplasty. at 1343 Reported and signed by: ALEXANDRA PEPE M.D. CC: Balbir Menchaca MD; Sandoval Agudelo MD Technologist:Rika Greenfield Time: DAP (Gy m2): Air Kerma (mGy): Trscr Dt/Tm: 10/21/2022 (1343) by:Manohar Printed Date/Time: 10/21/2022 (1347) Name: CYNDIE PENN [facility] Phys: Balbir Santiago MD [address] : 1975 Age: 46 Sex: [place] [address] Loc: P.0702 1 Exam Date: 10/21/2022 Status: ADM IN PH: FAX: PAGE 1 Signed ReportBASIC METABOLIC [id number] 07:03:00 Test Item Value Reference Range Interpretation [...] mg/dL 8.7-10.4 N = CA) CBC W/AUTO [id number] 07:03:00 Test Item Value Reference Range Interpretation [...] 0.07 x10 3/uL 0.0-0.20 N BASIC METABOLIC [id number] 07:48:00 Test Item Value Reference Range Interpretation [...] mg/dL 8.7-10.4 L = CA) CBC W/AUTO [id number] 07:03:00 Test Item Value Reference Range Interpretation [...] BA#) 0.06 x10 3/uL 0.0-0.20 N T3 [id number] 04:08:00 Test Item Value Reference Range Interpretation Comments T3 FREE (test code = 2.5 pg/mL 2.0-4.4 Perform ed At: [facility] T3F) [id number] [place], [place] [id number] Kyle L MD Ph:[phone] T4 [id number] 17:59:00 Test Item Value Reference Range Interpretation Comments T4 FREE (test code = T4F) 0.68 ng/dL 0.89-1.76 L THYROID STIMULATING [id number] 05:14:00 Test Item Value Reference Range Interpretation Comments THYROID STIMULATING HORMONE 46.89 mIU/mL 0.55-4.78 H (test code = TSH) BASIC METABOLIC [id number] 05:05:00 Test Item Value Reference Range Interpretation [...] mg/dL 8.7-10.4 L = CA) CBC W/AUTO [id number] 04:57:00 Test Item Value Reference Range Interpretation [...] 3/uL 0.0-0.20 N - CT PELVIS W/O [id number] 20:22:00 [facility] : 1975 Sex: FPatient Name: CYNDIE PENN Unit No: [id number] EXAMS: CPT CODE: [id number] CT PELVIS W/O CONTRAST 42252 EXAM: CT PELVIS WITHOUT CONTRAST INDICATION: fall, [...] vasculature. Bladder/Reproductive system: Evaluation of the bladder is limited, but no obvious bladder abnormality is present. Uterus is not clearly seen, possibly surgically absent. Gastrointestinal: No bowel obstruction or perienteric inflammation. The appendix is not visualized. Vascular: Pelvic vasculature is unremarkable. Lymphatics: No enlarged lymph nodes by CT size criteria. Bones/Soft Tissues: There is a right femoral neck fracture noted in nonunion. The lytic lesion suspected on prior radiograph appears to represent chronic erosion into the right greater troch anter by the fracture in nonunion. No acute fracture or malalignment is seen. No ventral hernias. Peritoneum/Other: No extraluminal air. No extraluminal fluid. 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 No acute fracture is seen. at 2021 Reported and signed by: ADELFO CUTLER M.D. Name: CYNDIE PENN [facility] Phys: GRACIE - Sabrina Artis MD [address] : 1975 Age: 46 Sex:[place] [address] Loc: P.ERMS 2 Exam Date: 10/16/2022 Status: ADM IN PH: FAX: PAGE 1 Signed Report (CONTINUED) Patient Name: CYNDIE PENN Unit No: [id number] EXAMS: CPT CODE: [id number] PELVIS W/O CONTRAST 03088 (Continued) CC: Sabrina Artis MD Technologist: SORAYA KING (R) CTDI: 9.96 DLP: 275 Trscr Dt/Tm: 10/16/2022 (2021) by:[email or web address] Printed Date/Time: 10/16/2022 (2024) Name: CYNDIE PENN [facility] Phys: CHECH.08 - Sabrina Artis MD [address] : 1975 Age: 46 Sex: [place] [address] Loc: P.ERMS 2 Exam Date: 10/16/2022 Status: ADM IN PH: FAX: PAGE 2 Signed Report- XR KNEE 1 OR 2 V [id number] 18:44:00 [facility] : 1975 Sex: FPatient Name: CYDNIE PENN Unit No: [id number] EXAMS: CPT CODE: [id number] XR KNEE 1 OR 2 V RT [address] EXAM: - XR HIP W/PEL UNI 2+V [...] Printed Date/Time: 10/16/2022 (1846) Name: CYNDIE PENN [facility] Phys: CHECH.Sabrina Jaime MD [address] : 1975 Age: 46 Sex: [place] [address] Loc: P.ERS Exam Date: 10/16/2022 Status: REG ER PH: FAX: PAGE 1 Signed Report- XR HIP W/PEL UNI 2+V [id number] 18:44:00 [facility] : 1975 Sex: FPatient Name: CYNDIE PENN Unit No: [id number] EXAMS: CPT CODE: [id number] XR HIP W/PEL UNI 2+[place] [address] EXAM: - XR HIP W/PEL UNI 2+V RT, - XR KNEE 1 OR 2 V RT INDICATION: pain s/p fall yesterday 7am.LOCATION: H50 COMPARISON: None available. TECHNIQUE: 2 views [...] Printed Date/Time: 10/16/2022 (1846) Name: CYNDIE PENN [facility] Phys: CHECH.Sabrina Jaime MD [address] : 1975 Age: 46 Sex: [place] [address] Loc: P.ERS Exam Date: 10/16/2022Status: REG ER PH: FAX: PAGE 1 Signed Report- XR SHOULDER 2 + V [id number] 18:44:00 [facility] : 1975 Sex: FPatient Name: CYNDIE PENN Unit No: [id number] EXAMS: CPT CODE: [id number] XR SHOULDER 2 + V RT [address] EXAM: - XR SHOULDER 2 + V [...] Printed Date/Time: 10/16/2022 (1847) Name: CYNDIE PENN [facility] Phys: Sabrina Elena MD [address] : 1975 Age: 46 Sex: [place] [address] Loc: P.ERS Exam Date: 10/16/2022 Status: REG ER PH: FAX: PAGE 1 Signed ReportECG 12 [id number] 23:41:58 Test Item Value Reference [place] Interpretation Comments Ventricular rate 71 (test code = 253) Atrial rate (test 71 code = 255) TX interval (test 150 code = 266) QRSD [...] sinus rhythm-Otherwise normal ECG-No [facility]s available[facility] [id number] 23:41:58 Test Item Value Reference [place] Interpretation Comments Ventricular rate 71 (test code = 253) Atrial rate (test 71 code = 255) TX interval (test 150 code = 266) QRSD [...] sinus rhythm-Otherwise normal ECG-No previous ECGs available- [place] [address] [id number] 23:41:58 Test Item Value Reference Range Interpretation Comments Ventricular rate 71 (test code = 253) Atrial rate (test 71 code = 255) TX interval (test 150 code = 266) QRSD [...] sinus rhythm-Otherwise normal ECG-No previous ECGs available- [place] [address] [id number] 23:41:58 Test Item Value Reference Range Interpretation Comments Ventricular rate 71 (test code = 253) Atrial rate (test 71 code = 255) TX interval (test 150 code = 266) QRSD [...] sinus rhythm-Otherwise normal ECG-No previous ECGs available- [facility] [id number] 20:13:00 Test Item Value Reference [place] Interpretation Comments Urine culture (test SEE COMMENT Bacteriu magy screen code = 2942933) negative. [facility] [id number] 20:13:00 Test Item Value Reference Range Interpretation Comments Urine culture (test SEE COMMENT Bacteriu magy screen code = 9169614) negative. [facility] [id number] 20:13:00 Test Item Value Reference Range Interpretation Comments Urine culture (test SEE COMMENT Bacteriu magy screen code = 0324749) negative. [facility] [id number] 20:13:00 Test Item Value Reference Range Interpretation Comments Urine culture (test SEE COMMENT Bacteriu magy screen code = 3717625) negative. [facility] [id number] 13:55:55 Test Item Value Reference Range Interpretation Comments SARS-CoV-2 (COVID-19) RNA Not detected [Presence] in Respiratory specimen by SONNY with probe detection (test code = 76797-8) Whether patient resides in a No congregate care setting (test code = 01338-1) Date and time of symptom onset Unknown (test code = 97933-9) Whether the patient was No hospitalized for condition of interest (test code = 88365-9) Whether the patient was admitted No to intensive care unit (ICU) for condition of interest (test code = 60897-2) Whether patient is employed in a No healthcare setting (test code = 91841-6) Whether the patient has symptoms No related to condition of interest (test code = 31912-0) status (test code = No 98931-0) [facility] [id number] 04:45:00 Test Item Value Reference Range Interpretation Comments POCT PREG (test code = 1605) Negative On board controls acceptable with Yes C Line (test code = 3574) POCT PREG LOT # (test code = 3575 017692 POCT PREG TEST DATE (test 03/28/2024 code = 3576) [facility]. METABOLIC PANEL (54350)2022-07-23 02:32:10 Test Item Value Reference Range Interpretation Comments NA (test code = 139 mmol/L 135-145 0428706238) K (test code = 3.4 mmol/L 3.5-5.0 L 3360508287) CL (test code = 103 mmol/L 98-108 0164916166) CO2 TOTAL (test code = 28 mmol/L 23-31 9998711363) AGAP (test code = 8 2-16 6675414997) BUN (test code = 9 mg/dL 7-23 0568215235) GLUCOSE (test code = 77 mg/dL 70-110 8820490372) CREATININE (test code = 0.82 mg/dL 0.50-1.04 3082191560) TOTAL BILI (test code = 0.4 mg/dL 0.1-1.0 5524555880) CALCIUM (test code = 9.0 mg/dL 8.6-10.6 0663240426) T PROTEIN (test code = 7.3 g/dL 6.3-8.2 4438349750) ALBUMIN (test code = 4.3 g/dL 3.5-5.0 6738013181) ALK PHOS (test code = 98 U/L 34-122 3077154895) ALTv (test code = 20 U/L 5-35 1742-6) AST(SGOT) (test code = 23 U/L 13-40 6578690816) eGFR (test code = 75.4 mL/min/1.73m2 2828182619) JAQUELIN (test code = JAQUELIN) Association of [...] tests). Lab Interpretation Abnormal (test code = 64616-8) [facility] WITH [id number] 02:21:48 Test Item Value Reference Range Interpretation Comments WBC (test code = 10.63 See_Comment [Automated 0090-2) message] The sy stem which generated this result transmitted reference range : 4.30 - 11.10 10*3/?L. The reference range was not used to interpret this result as normal/abnormal . RBC (test code = 4.30 See_Comment [Automated 849-8) message] The sy stem which generated this [...] RDW-SD (test code = 47.6 fL 39.0-49.9 40123-6) RDW-CV (test code = 15.1 % 12.0-15.5 788-0) PLT (test code = 341 See_Comment [Automated 777-3) message] The sy stem which generated this result transmitted reference range : 166 - 358 10*3/ ?L. The reference r shahana was not used to interpret this result as normal/abnormal . MPV (test code = 9.8 fL 9.5-12.9 18059-8) NRBC/100 WBC (test 0.0 See_Comment [Automat ed code = 3716538240) message] The system which generated this result transmitted reference range : 0.0 - 10.0 /100 WBCs. The refer ence range was not u sed to interpret th is result as normal/abnormal . NRBC x10^3 (test code See_Comment [Auto mated = 2192509390) message] The s ystem which generated this result transmitted reference range : 10*3/?L. The reference range was not used to interpret this result as normal/abnormal . GRAN MAT (NEUT) % 67.0 % (test code = 770-8) IMM GRAN % (test code 0.30 % = 6460474148) LYMPH % (test code = 24.5 % 736-9) MONO % (test code = 6.9 % 5905-5) EOS % (test code = 0.7 % 713-8) BASO % (test code = 0.6 % 706-2) GRAN MAT x10^3(ANC) 7.14 10*3/uL 1.88-7.09 H (test code = 8916753019) IMM GRAN x10^3 (test 0.03 10*3/uL 0.00-0.06 code = 3904381691) LYMPH x10^3 (test code 2.60 10*3/uL 1.32-3.29 = 731-0) MONO x10^3 (test code 0.73 10*3/uL 0.33-0.92 = 742-7) EOS x10^3 (test code = 0.07 10*3/uL 0.03-0.39 711-2) BASO x10^3 (test code 0.06 10*3/uL 0.01-0.07 = 704-7) Lab Interpretation Abnormal (test code = 81015-5) [facility] [id number] 00:00:00 Test Item Value Reference Range Interpretation Comments GLUCOSE (test code = 2217) 93 MG/DL BUN (test code = 2208) 10 MG/DL CREATININE (test code = 2214) 0.81 MG/DL eGFR AMER. (test code 103 ML/MIN/1.73 = 58952) eGFR NON- AMER. (test 89 ML/MIN/1.73 code = 19218) CALC BUN/CREAT (test code = 12 RATIO [...] code = 2219) 22 U/L COMPREHENSIVE METABOLIC [id number] 00:00:00 Test Item Value Reference Range Interpretation Comments GLUCOSE (test code = 2217) 93 MG/DL BUN (test code = 2208) 10 MG/DL CREATININE (test code = 2214) 0.81 MG/DL eGFR AMER. (test code 103 ML/MIN/1.73 = 80668) eGFR NON- AMER. (test 89 ML/MIN/1.73 code = 02094) CALC BUN/CREAT (test code = 12 RATIO [...] code = 2219) 22 U/L CBC W/AUTO [id number] 00:00:00 Test Item Value Reference Range Interpretation [...] NUCLEATED RBCS (test code = 0.00 K/UL 61223) CBC W/AUTO [id number] 00:00:00 Test Item Value Reference Range Interpretation [...] NUCLEATED RBCS (test code = 0.00 K/UL 86217) CBC W/AUTO [id number] 00:00:00 Test Item Value Reference Range Interpretation [...] NUCLEATED RBCS (test code = 0.00 K/UL 09284) LIPID [id number] 00:00:00 Test Item Value Reference Range Interpretation Comments CHOLESTEROL (test code = 2210) 328 MG/DL TRIGLYCERIDES (test code = 2232) 614 MG/DL HDL CHOLESTEROL (test code = 42 MG/DL 2220) CALC LDL CHOL (test code = 2237) (NOTE) MG/DL RISK RATIO LDL/HDL (test code = (NOTE) RATIO 2238) LIPID [id number] 00:00:00 Test Item Value Reference Range Interpretation Comments CHOLESTEROL (test code = 2210) 328 MG/DL TRIGLYCERIDES (test code = 2232) 614 MG/DL HDL CHOLESTEROL (test code = 42 MG/DL 2220) CALC LDL CHOL (test code = 2237) (NOTE) MG/DL RISK RATIO LDL/HDL (test code = (NOTE) RATIO 2238) [id number] 00:00:00 Test Item Value Reference Range Interpretation Comments TSH, THIRD GENERATION (test code 4.310 UIU/ML = 2821) [id number] 00:00:00 Test Item Value Reference Range Interpretation Comments TSH, THIRD GENERATION (test code 4.310 UIU/ML = 2821) [id number] 00:00:00 Test Item Value Reference Range Interpretation Comments TSH, THIRD GENERATION (test code 4.310 UIU/ML = 2821) HEMOGLOBIN [id number] 00:00:00 Test Item Value Reference Range Interpretation Comments HEMOGLOBIN A1c (test code = 63099) 5.4 % HEMOGLOBIN [id number] 00:00:00 Test Item Value Reference Range Interpretation Comments HEMOGLOBIN A1c (test code = 04463) 5.4 % HEMOGLOBIN [id number] 00:00:00 Test Item Value Reference Range Interpretation Comments HEMOGLOBIN A1c (test code = 32638) 5.4 % [id number] 00:00:00 Test Item Value Reference Range Interpretation Comments LITHIUM (test code = 2039) 0.63 MEQ/L [id number] 00:00:00 Test Item Value Reference Range Interpretation Comments LITHIUM (test code = 2039) 0.63 MEQ/L [id number] 00:00:00 Test Item Value Reference Range Interpretation Comments LITHIUM (test code = 2039) 0.63 MEQ/L COMPREHENSIVE METABOLIC [id number] 00:00:00 Test Item Value Reference Range Interpretation Comments GLUCOSE (test code = 2217) 93 MG/DL BUN (test code = 2208) 10 MG/DL CREATININE (test code = 2214) 0.81 MG/DL eGFR AMER. (test code 103 ML/MIN/1.73 = 14437) eGFR NON- AMER. (test 89 ML/MIN/1.73 code = 94141) CALC BUN/CREAT (test code = 12 RATIO [...] code = 2219) 22 U/L COMPREHENSIVE METABOLIC [id number] 00:00:00 Test Item Value Reference Range Interpretation Comments GLUCOSE (test code = 2217) 93 MG/DL BUN (test code = 2208) 10 MG/DL CREATININE (test code = 2214) 0.81 MG/DL eGFR AMER. (test code 103 ML/MIN/1.73 = 56248) eGFR NON- AMER. (test 89 ML/MIN/1.73 code = 88926) CALC BUN/CREAT (test code = 12 RATIO [...] code = 2219) 22 U/L CBC W/AUTO [id number] 00:00:00 Test Item Value Reference Range Interpretation [...] NUCLEATED RBCS (test code = 0.00 K/UL 22729) CBC W/AUTO [id number] 00:00:00 Test Item Value Reference Range Interpretation [...] NUCLEATED RBCS (test code = 0.00 K/UL 70447) CBC W/AUTO [id number] 00:00:00 Test Item Value Reference Range Interpretation [...] NUCLEATED RBCS (test code = 0.00 K/UL 22207) LIPID [id number] 00:00:00 Test Item Value Reference Range Interpretation Comments CHOLESTEROL (test code = 2210) 328 MG/DL TRIGLYCERIDES (test code = 2232) 614 MG/DL HDL CHOLESTEROL (test code = 42 MG/DL 2220) CALC LDL CHOL (test code = 2237) (NOTE) MG/DL RISK RATIO LDL/HDL (test code = (NOTE) RATIO 2238) LIPID [id number] 00:00:00 Test Item Value Reference Range Interpretation Comments CHOLESTEROL (test code = 2210) 328 MG/DL TRIGLYCERIDES (test code = 2232) 614 MG/DL HDL CHOLESTEROL (test code = 42 MG/DL 2220) CALC LDL CHOL (test code = 2237) (NOTE) MG/DL RISK RATIO LDL/HDL (test code = (NOTE) RATIO 2238) [id number] 00:00:00 Test Item Value Reference Range Interpretation Comments TSH, THIRD GENERATION (test code 4.310 UIU/ML = 2821) [id number] 00:00:00 Test Item Value Reference Range Interpretation Comments TSH, THIRD GENERATION (test code 4.310 UIU/ML = 2821) [id number] 00:00:00 Test Item Value Reference Range Interpretation Comments TSH, THIRD GENERATION (test code 4.310 UIU/ML = 2821) HEMOGLOBIN [id number] 00:00:00 Test Item Value Reference Range Interpretation Comments HEMOGLOBIN A1c (test code = 50406) 5.4 % HEMOGLOBIN [id number] 00:00:00 Test Item Value Reference Range Interpretation Comments HEMOGLOBIN A1c (test code = 65150) 5.4 % HEMOGLOBIN [id number] 00:00:00 Test Item Value Reference Range Interpretation Comments HEMOGLOBIN A1c (test code = 50131) 5.4 % [id number] 00:00:00 Test Item Value Reference Range Interpretation Comments LITHIUM (test code = 2039) 0.63 MEQ/L [id number] 00:00:00 Test Item Value Reference Range Interpretation Comments LITHIUM (test code = 2039) 0.63 MEQ/L [id number] 00:00:00 Test Item Value Reference Range Interpretation Comments LITHIUM (test code = 203) 0.63 MEQ/L COMPREHENSIVE METABOLIC [id number] 00:00:00 Test Item Value Reference Range Interpretation Comments GLUCOSE (test code = 2217) 93 MG/DL BUN (test code = 2208) 10 MG/DL CREATININE (test code = 2214) 0.81 MG/DL eGFR AMER. (test code 103 ML/MIN/1.73 = 23149) eGFR NON- AMER. (test 89 ML/MIN/1.73 code = 47940) CALC BUN/CREAT (test code = 12 RATIO [...] code = 2219) 22 U/L CBC W/AUTO [id number] 00:00:00 Test Item Value Reference Range Interpretation [...] NUCLEATED RBCS (test code = 0.00 K/UL 02157) CBC W/AUTO [id number] 00:00:00 Test Item Value Reference Range Interpretation [...] NUCLEATED RBCS (test code = 0.00 K/UL 90663) LIPID [id number] 00:00:00 Test Item Value Reference Range Interpretation Comments CHOLESTEROL (test code = 2210) 328 MG/DL TRIGLYCERIDES (test code = 2232) 614 MG/DL HDL CHOLESTEROL (test code = 42 MG/DL 2220) CALC LDL CHOL (test code = 2237) (NOTE) MG/DL RISK RATIO LDL/HDL (test code = (NOTE) RATIO 2238) [id number] 00:00:00 Test Item Value Reference Range Interpretation Comments TSH, THIRD GENERATION (test code 4.310 UIU/ML = 2821) [id number] 00:00:00 Test Item Value Reference Range Interpretation Comments TSH, THIRD GENERATION (test code 4.310 UIU/ML = 2821) HEMOGLOBIN [id number] 00:00:00 Test Item Value Reference Range Interpretation Comments HEMOGLOBIN A1c (test code = 18117) 5.4 % HEMOGLOBIN [id number] 00:00:00 Test Item Value Reference Range Interpretation Comments HEMOGLOBIN A1c (test code = 07508) 5.4 % [id number] 00:00:00 Test Item Value Reference Range Interpretation Comments LITHIUM (test code = 2039) 0.63 MEQ/L [id number] 00:00:00 Test Item Value Reference Range Interpretation Comments LITHIUM (test code = 2039) 0.63 MEQ/L COMPREHENSIVE METABOLIC [id number] 00:00:00 Test Item Value Reference Range Interpretation Comments GLUCOSE (test code = 2217) 93 MG/DL BUN (test code = 2208) 10 MG/DL CREATININE (test code = 2214) 0.81 MG/DL eGFR AMER. (test code 103 ML/MIN/1.73 = 29947) eGFR NON- AMER. (test 89 ML/MIN/1.73 code = 07941) CALC BUN/CREAT (test code = 12 RATIO [...] code = 2219) 22 U/L COMPREHENSIVE METABOLIC [id number] 00:00:00 Test Item Value Reference Range Interpretation Comments GLUCOSE (test code = 2217) 93 MG/DL BUN (test code = 2208) 10 MG/DL CREATININE (test code = 2214) 0.81 MG/DL eGFR AMER. (test code 103 ML/MIN/1.73 = 45299) eGFR NON- AMER. (test 89 ML/MIN/1.73 code = 56645) CALC BUN/CREAT (test code = 12 RATIO [...] code = 2219) 22 U/L CBC W/AUTO [id number] 00:00:00 Test Item Value Reference Range Interpretation [...] NUCLEATED RBCS (test code = 0.00 K/UL 44876) CBC W/AUTO [id number] 00:00:00 Test Item Value Reference Range Interpretation [...] NUCLEATED RBCS (test code = 0.00 K/UL 69171) CBC W/AUTO [id number] 00:00:00 Test Item Value Reference Range Interpretation [...] NUCLEATED RBCS (test code = 0.00 K/UL 87468) LIPID [id number] 00:00:00 Test Item Value Reference Range Interpretation Comments CHOLESTEROL (test code = 2210) 328 MG/DL TRIGLYCERIDES (test code = 2232) 614 MG/DL HDL CHOLESTEROL (test code = 42 MG/DL 2220) CALC LDL CHOL (test code = 2237) (NOTE) MG/DL RISK RATIO LDL/HDL (test code = (NOTE) RATIO 2238) LIPID [id number] 00:00:00 Test Item Value Reference Range Interpretation Comments CHOLESTEROL (test code = 2210) 328 MG/DL TRIGLYCERIDES (test code = 2232) 614 MG/DL HDL CHOLESTEROL (test code = 42 MG/DL 2220) CALC LDL CHOL (test code = 2237) (NOTE) MG/DL RISK RATIO LDL/HDL (test code = (NOTE) RATIO 2238) [id number] 00:00:00 Test Item Value Reference Range Interpretation Comments TSH, THIRD GENERATION (test code 4.310 UIU/ML = 2821) [id number] 00:00:00 Test Item Value Reference Range Interpretation Comments TSH, THIRD GENERATION (test code 4.310 UIU/ML = 2821) [id number] 00:00:00 Test Item Value Reference Range Interpretation Comments TSH, THIRD GENERATION (test code 4.310 UIU/ML = 2821) HEMOGLOBIN [id number] 00:00:00 Test Item Value Reference Range Interpretation Comments HEMOGLOBIN A1c (test code = 79155) 5.4 % HEMOGLOBIN [id number] 00:00:00 Test Item Value Reference Range Interpretation Comments HEMOGLOBIN A1c (test code = 19336) 5.4 % HEMOGLOBIN [id number] 00:00:00 Test Item Value Reference Range Interpretation Comments HEMOGLOBIN A1c (test code = 97528) 5.4 % [id number] 00:00:00 Test Item Value Reference Range Interpretation Comments LITHIUM (test code = 2039) 0.63 MEQ/L [id number] 00:00:00 Test Item Value Reference Range Interpretation Comments LITHIUM (test code = 2039) 0.63 MEQ/L [id number] 00:00:00 Test Item Value Reference Range Interpretation Comments LITHIUM (test code = 2039) 0.63 MEQ/L COMPREHENSIVE METABOLIC [id number] 00:00:00 Test Item Value Reference Range Interpretation Comments GLUCOSE (test code = 2217) 93 MG/DL BUN (test code = 2208) 10 MG/DL CREATININE (test code = 2214) 0.81 MG/DL eGFR AMER. (test code 103 ML/MIN/1.73 = 09403) eGFR NON- AMER. (test 89 ML/MIN/1.73 code = 61624) CALC BUN/CREAT (test code = 12 RATIO [...] code = 2219) 22 U/L COMPREHENSIVE METABOLIC [id number] 00:00:00 Test Item Value Reference Range Interpretation Comments GLUCOSE (test code = 2217) 93 MG/DL BUN (test code = 2208) 10 MG/DL CREATININE (test code = 2214) 0.81 MG/DL eGFR AMER. (test code 103 ML/MIN/1.73 = 43206) eGFR NON- AMER. (test 89 ML/MIN/1.73 code = 64999) CALC BUN/CREAT (test code = 12 RATIO [...] code = 2219) 22 U/L CBC W/AUTO [id number] 00:00:00 Test Item Value Reference Range Interpretation [...] NUCLEATED RBCS (test code = 0.00 K/UL 75721) CBC W/AUTO [id number] 00:00:00 Test Item Value Reference Range Interpretation [...] NUCLEATED RBCS (test code = 0.00 K/UL 61977) CBC W/AUTO [id number] 00:00:00 Test Item Value Reference Range Interpretation [...] NUCLEATED RBCS (test code = 0.00 K/UL 28776) LIPID [id number] 00:00:00 Test Item Value Reference Range Interpretation Comments CHOLESTEROL (test code = 2210) 328 MG/DL TRIGLYCERIDES (test code = 2232) 614 MG/DL HDL CHOLESTEROL (test code = 42 MG/DL 2220) CALC LDL CHOL (test code = 2237) (NOTE) MG/DL RISK RATIO LDL/HDL (test code = (NOTE) RATIO 2238) LIPID [id number] 00:00:00 Test Item Value Reference Range Interpretation Comments CHOLESTEROL (test code = 2210) 328 MG/DL TRIGLYCERIDES (test code = 2232) 614 MG/DL HDL CHOLESTEROL (test code = 42 MG/DL 2220) CALC LDL CHOL (test code = 2237) (NOTE) MG/DL RISK RATIO LDL/HDL (test code = (NOTE) RATIO 2238) [id number] 00:00:00 Test Item Value Reference Range Interpretation Comments TSH, THIRD GENERATION (test code 4.310 UIU/ML = 2821) [id number] 00:00:00 Test Item Value Reference Range Interpretation Comments TSH, THIRD GENERATION (test code 4.310 UIU/ML = 2821) [id number] 00:00:00 Test Item Value Reference Range Interpretation Comments TSH, THIRD GENERATION (test code 4.310 UIU/ML = 2821) HEMOGLOBIN [id number] 00:00:00 Test Item Value Reference Range Interpretation Comments HEMOGLOBIN A1c (test code = 39159) 5.4 % HEMOGLOBIN [id number] 00:00:00 Test Item Value Reference Range Interpretation Comments HEMOGLOBIN A1c (test code = 92292) 5.4 % HEMOGLOBIN [id number] 00:00:00 Test Item Value Reference Range Interpretation Comments HEMOGLOBIN A1c (test code = 13027) 5.4 % [id number] 00:00:00 Test Item Value Reference Range Interpretation Comments LITHIUM (test code = 2039) 0.63 MEQ/L [id number] 00:00:00 Test Item Value Reference Range Interpretation Comments LITHIUM (test code = 2039) 0.63 MEQ/L [id number] 00:00:00 Test Item Value Reference Range Interpretation Comments LITHIUM (test code = 2039) 0.63 MEQ/L COMPREHENSIVE METABOLIC [id number] 00:00:00 Test Item Value Reference Range Interpretation Comments GLUCOSE (test code = 2217) 93 MG/DL BUN (test code = 2208) 10 MG/DL CREATININE (test code = 2214) 0.81 MG/DL eGFR AMER. (test code 103 ML/MIN/1.73 = 40022) eGFR NON- AMER. (test 89 ML/MIN/1.73 code = 54463) CALC BUN/CREAT (test code = 12 RATIO [...] code = 2219) 22 U/L COMPREHENSIVE METABOLIC [id number] 00:00:00 Test Item Value Reference Range Interpretation Comments GLUCOSE (test code = 2217) 93 MG/DL BUN (test code = 2208) 10 MG/DL CREATININE (test code = 2214) 0.81 MG/DL eGFR AMER. (test code 103 ML/MIN/1.73 = 31632) eGFR NON- AMER. (test 89 ML/MIN/1.73 code = 99505) CALC BUN/CREAT (test code = 12 RATIO [...] code = 2219) 22 U/L CBC W/AUTO [id number] 00:00:00 Test Item Value Reference Range Interpretation [...] NUCLEATED RBCS (test code = 0.00 K/UL 08199) CBC W/AUTO [id number] 00:00:00 Test Item Value Reference Range Interpretation [...] NUCLEATED RBCS (test code = 0.00 K/UL 50158) CBC W/AUTO [id number] 00:00:00 Test Item Value Reference Range Interpretation [...] NUCLEATED RBCS (test code = 0.00 K/UL 93524) LIPID [id number] 00:00:00 Test Item Value Reference Range Interpretation Comments CHOLESTEROL (test code = 2210) 328 MG/DL TRIGLYCERIDES (test code = 2232) 614 MG/DL HDL CHOLESTEROL (test code = 42 MG/DL 2220) CALC LDL CHOL (test code = 2237) (NOTE) MG/DL RISK RATIO LDL/HDL (test code = (NOTE) RATIO 2238) LIPID [id number] 00:00:00 Test Item Value Reference Range Interpretation Comments CHOLESTEROL (test code = 2210) 328 MG/DL TRIGLYCERIDES (test code = 2232) 614 MG/DL HDL CHOLESTEROL (test code = 42 MG/DL 2220) CALC LDL CHOL (test code = 2237) (NOTE) MG/DL RISK RATIO LDL/HDL (test code = (NOTE) RATIO 2238) [id number] 00:00:00 Test Item Value Reference Range Interpretation Comments TSH, THIRD GENERATION (test code 4.310 UIU/ML = 2821) [id number] 00:00:00 Test Item Value Reference Range Interpretation Comments TSH, THIRD GENERATION (test code 4.310 UIU/ML = 2821) [id number] 00:00:00 Test Item Value Reference Range Interpretation Comments TSH, THIRD GENERATION (test code 4.310 UIU/ML = 2821) HEMOGLOBIN [id number] 00:00:00 Test Item Value Reference Range Interpretation Comments HEMOGLOBIN A1c (test code = 90845) 5.4 % HEMOGLOBIN [id number] 00:00:00 Test Item Value Reference Range Interpretation Comments HEMOGLOBIN A1c (test code = 03562) 5.4 % HEMOGLOBIN [id number] 00:00:00 Test Item Value Reference Range Interpretation Comments HEMOGLOBIN A1c (test code = 55562) 5.4 % [id number] 00:00:00 Test Item Value Reference Range Interpretation Comments LITHIUM (test code = 2038) 0.63 MEQ/L [id number] 00:00:00 Test Item Value Reference Range Interpretation Comments LITHIUM (test code = 2038) 0.63 MEQ/L [id number] 00:00:00 Test Item Value Reference Range Interpretation Comments LITHIUM (test code = 2038) 0.63 MEQ/L COMPREHENSIVE METABOLIC [id number] 00:00:00 Test Item Value Reference Range Interpretation Comments GLUCOSE (test code = 2217) 93 MG/DL BUN (test code = 2208) 10 MG/DL CREATININE (test code = 2214) 0.81 MG/DL eGFR AMER. (test code 103 ML/MIN/1.73 = 35521) eGFR NON- AMER. (test 89 ML/MIN/1.73 code = 81559) CALC BUN/CREAT (test code = 12 RATIO [...] code = 2219) 22 U/L COMPREHENSIVE METABOLIC [id number] 00:00:00 Test Item Value Reference Range Interpretation Comments GLUCOSE (test code = 2217) 93 MG/DL BUN (test code = 2208) 10 MG/DL CREATININE (test code = 2214) 0.81 MG/DL eGFR AMER. (test code 103 ML/MIN/1.73 = 30107) eGFR NON- AMER. (test 89 ML/MIN/1.73 code = 42263) CALC BUN/CREAT (test code = 12 RATIO [...] code = 2219) 22 U/L CBC W/AUTO [id number] 00:00:00 Test Item Value Reference Range Interpretation [...] NUCLEATED RBCS (test code = 0.00 K/UL 26151) CBC W/AUTO [id number] 00:00:00 Test Item Value Reference Range Interpretation [...] NUCLEATED RBCS (test code = 0.00 K/UL 09587) CBC W/AUTO [id number] 00:00:00 Test Item Value Reference Range Interpretation [...] NUCLEATED RBCS (test code = 0.00 K/UL 12972) LIPID [id number] 00:00:00 Test Item Value Reference Range Interpretation Comments CHOLESTEROL (test code = 2210) 328 MG/DL TRIGLYCERIDES (test code = 2232) 614 MG/DL HDL CHOLESTEROL (test code = 42 MG/DL 2220) CALC LDL CHOL (test code = 2237) (NOTE) MG/DL RISK RATIO LDL/HDL (test code = (NOTE) RATIO 2238) LIPID [id number] 00:00:00 Test Item Value Reference Range Interpretation Comments CHOLESTEROL (test code = 2210) 328 MG/DL TRIGLYCERIDES (test code = 2232) 614 MG/DL HDL CHOLESTEROL (test code = 42 MG/DL 2220) CALC LDL CHOL (test code = 2237) (NOTE) MG/DL RISK RATIO LDL/HDL (test code = (NOTE) RATIO 2238) [id number] 00:00:00 Test Item Value Reference Range Interpretation Comments TSH, THIRD GENERATION (test code 4.310 UIU/ML = 2821) [id number] 00:00:00 Test Item Value Reference Range Interpretation Comments TSH, THIRD GENERATION (test code 4.310 UIU/ML = 2821) [id number] 00:00:00 Test Item Value Reference Range Interpretation Comments TSH, THIRD GENERATION (test code 4.310 UIU/ML = 2821) HEMOGLOBIN [id number] 00:00:00 Test Item Value Reference Range Interpretation Comments HEMOGLOBIN A1c (test code = 34460) 5.4 % HEMOGLOBIN [id number] 00:00:00 Test Item Value Reference Range Interpretation Comments HEMOGLOBIN A1c (test code = 31241) 5.4 % HEMOGLOBIN [id number] 00:00:00 Test Item Value Reference Range Interpretation Comments HEMOGLOBIN A1c (test code = 84822) 5.4 % [id number] 00:00:00 Test Item Value Reference Range Interpretation Comments LITHIUM (test code = 2039) 0.63 MEQ/L [id number] 00:00:00 Test Item Value Reference Range Interpretation Comments LITHIUM (test code = 203) 0.63 MEQ/L [id number] 00:00:00 Test Item Value Reference Range Interpretation Comments LITHIUM (test code = 203) 0.63 MEQ/L COMPREHENSIVE METABOLIC [id number] 00:00:00 Test Item Value Reference Range Interpretation Comments GLUCOSE (test code = 2217) 93 MG/DL BUN (test code = 2208) 10 MG/DL CREATININE (test code = 2214) 0.81 MG/DL eGFR AMER. (test code 103 ML/MIN/1.73 = 19978) eGFR NON- AMER. (test 89 ML/MIN/1.73 code = 85565) CALC BUN/CREAT (test code = 12 RATIO [...] code = 2219) 22 U/L COMPREHENSIVE METABOLIC [id number] 00:00:00 Test Item Value Reference Range Interpretation Comments GLUCOSE (test code = 2217) 93 MG/DL BUN (test code = 2208) 10 MG/DL CREATININE (test code = 2214) 0.81 MG/DL eGFR AMER. (test code 103 ML/MIN/1.73 = 77736) eGFR NON- AMER. (test 89 ML/MIN/1.73 code = 01714) CALC BUN/CREAT (test code = 12 RATIO [...] code = 2219) 22 U/L CBC W/AUTO [id number] 00:00:00 Test Item Value Reference Range Interpretation [...] NUCLEATED RBCS (test code = 0.00 K/UL 10217) CBC W/AUTO [id number] 00:00:00 Test Item Value Reference Range Interpretation [...] NUCLEATED RBCS (test code = 0.00 K/UL 77264) CBC W/AUTO [id number] 00:00:00 Test Item Value Reference Range Interpretation [...] NUCLEATED RBCS (test code = 0.00 K/UL 97759) LIPID [id number] 00:00:00 Test Item Value Reference Range Interpretation Comments CHOLESTEROL (test code = 2210) 328 MG/DL TRIGLYCERIDES (test code = 2232) 614 MG/DL HDL CHOLESTEROL (test code = 42 MG/DL 2220) CALC LDL CHOL (test code = 2237) (NOTE) MG/DL RISK RATIO LDL/HDL (test code = (NOTE) RATIO 2238) LIPID [id number] 00:00:00 Test Item Value Reference Range Interpretation Comments CHOLESTEROL (test code = 2210) 328 MG/DL TRIGLYCERIDES (test code = 2232) 614 MG/DL HDL CHOLESTEROL (test code = 42 MG/DL 2220) CALC LDL CHOL (test code = 2237) (NOTE) MG/DL RISK RATIO LDL/HDL (test code = (NOTE) RATIO 2238) [id number] 00:00:00 Test Item Value Reference Range Interpretation Comments TSH, THIRD GENERATION (test code 4.310 UIU/ML = 2821) [id number] 00:00:00 Test Item Value Reference Range Interpretation Comments TSH, THIRD GENERATION (test code 4.310 UIU/ML = 2821) [id number] 00:00:00 Test Item Value Reference Range Interpretation Comments TSH, THIRD GENERATION (test code 4.310 UIU/ML = 2821) HEMOGLOBIN [id number] 00:00:00 Test Item Value Reference Range Interpretation Comments HEMOGLOBIN A1c (test code = 16377) 5.4 % HEMOGLOBIN [id number] 00:00:00 Test Item Value Reference Range Interpretation Comments HEMOGLOBIN A1c (test code = 40014) 5.4 % HEMOGLOBIN [id number] 00:00:00 Test Item Value Reference Range Interpretation Comments HEMOGLOBIN A1c (test code = 08913) 5.4 % [id number] 00:00:00 Test Item Value Reference Range Interpretation Comments LITHIUM (test code = 2039) 0.63 MEQ/L [id number] 00:00:00 Test Item Value Reference Range Interpretation Comments LITHIUM (test code = 2039) 0.63 MEQ/L [id number] 00:00:00 Test Item Value Reference Range Interpretation Comments LITHIUM (test code = 2039) 0.63 MEQ/L COMPREHENSIVE METABOLIC [id number] 00:00:00 Test Item Value Reference Range Interpretation Comments GLUCOSE (test code = 2217) 93 MG/DL BUN (test code = 2208) 10 MG/DL CREATININE (test code = 2214) 0.81 MG/DL eGFR AMER. (test code 103 ML/MIN/1.73 = 13529) eGFR NON- AMER. (test 89 ML/MIN/1.73 code = 11007) CALC BUN/CREAT (test code = 12 RATIO [...] code = 2219) 22 U/L COMPREHENSIVE METABOLIC [id number] 00:00:00 Test Item Value Reference Range Interpretation Comments GLUCOSE (test code = 2217) 93 MG/DL BUN (test code = 2208) 10 MG/DL CREATININE (test code = 2214) 0.81 MG/DL eGFR AMER. (test code 103 ML/MIN/1.73 = 16491) eGFR NON- AMER. (test 89 ML/MIN/1.73 code = 54978) CALC BUN/CREAT (test code = 12 RATIO [...] code = 2219) 22 U/L CBC W/AUTO [id number] 00:00:00 Test Item Value Reference Range Interpretation [...] NUCLEATED RBCS (test code = 0.00 K/UL 53731) CBC W/AUTO [id number] 00:00:00 Test Item Value Reference Range Interpretation [...] NUCLEATED RBCS (test code = 0.00 K/UL 50056) CBC W/AUTO [id number] 00:00:00 Test Item Value Reference Range Interpretation [...] NUCLEATED RBCS (test code = 0.00 K/UL 54596) LIPID [id number] 00:00:00 Test Item Value Reference Range Interpretation Comments CHOLESTEROL (test code = 2210) 328 MG/DL TRIGLYCERIDES (test code = 2232) 614 MG/DL HDL CHOLESTEROL (test code = 42 MG/DL 2220) CALC LDL CHOL (test code = 2237) (NOTE) MG/DL RISK RATIO LDL/HDL (test code = (NOTE) RATIO 2238) LIPID [id number] 00:00:00 Test Item Value Reference Range Interpretation Comments CHOLESTEROL (test code = 2210) 328 MG/DL TRIGLYCERIDES (test code = 2232) 614 MG/DL HDL CHOLESTEROL (test code = 42 MG/DL 2220) CALC LDL CHOL (test code = 2237) (NOTE) MG/DL RISK RATIO LDL/HDL (test code = (NOTE) RATIO 2238) [id number] 00:00:00 Test Item Value Reference Range Interpretation Comments TSH, THIRD GENERATION (test code 4.310 UIU/ML = 2821) [id number] 00:00:00 Test Item Value Reference Range Interpretation Comments TSH, THIRD GENERATION (test code 4.310 UIU/ML = 2821) [id number] 00:00:00 Test Item Value Reference Range Interpretation Comments TSH, THIRD GENERATION (test code 4.310 UIU/ML = 2821) HEMOGLOBIN [id number] 00:00:00 Test Item Value Reference Range Interpretation Comments HEMOGLOBIN A1c (test code = 65567) 5.4 % HEMOGLOBIN [id number] 00:00:00 Test Item Value Reference Range Interpretation Comments HEMOGLOBIN A1c (test code = 90961) 5.4 % HEMOGLOBIN [id number] 00:00:00 Test Item Value Reference Range Interpretation Comments HEMOGLOBIN A1c (test code = 83483) 5.4 % [id number] 00:00:00 Test Item Value Reference Range Interpretation Comments LITHIUM (test code = 2039) 0.63 MEQ/L [id number] 00:00:00 Test Item Value Reference Range Interpretation Comments LITHIUM (test code = 2039) 0.63 MEQ/L [id number] 00:00:00 Test Item Value Reference Range Interpretation Comments LITHIUM (test code = 2039) 0.63 MEQ/L"
--- NOTE | 2023-02-26 22:54 | EDPHYS ---
Physician Documentation [facility] Name: Rody Doan Age: 47 yrs Sex: Female : 1975 Arrival Date: 02/26/2023 Time: 21:07 Bed 10 Private MD: ED Physician Yamini Gonzalez HPI: 02/26 22:04 This 47 yrs old Female presents to ER via Ambulatory with complaints of Fall sp3 Injury to right hip. 22:04 47-year-old female with history of bipolar disease, chronic pain, hypertension, recent sp3 right hip replacement 3 months ago now presents to the ED with mechanical ground-level fall due to dogs pulling her leash where she landed on her right hip. Patient is still ambulatory. She denies head injury, facial injury, back injury, shoulder or extremity injury, abdominal pain, chest pain, shortness of breath, or any other signs or symptoms on ROS at this time.. 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 - Social history:: Smoking status: Patient reports the use of cigarette tobacco products, smokes one-half pack cigarettes per day. ROS: 22:05 Constitutional: Negative for fever, chills, and weight loss, Eyes: Negative for injury, sp3 pain, redness, and discharge, ENT: Negative for injury, pain, and discharge, Neck: Negative for injury, pain, and swelling, Cardiovascular: Negative for chest pain, palpitations, and edema, Respiratory: Negative for shortness of breath, cough, wheezing, and pleuritic chest pain, Abdomen/GI: Negative for abdominal pain, nausea, vomiting, diarrhea, and constipation, Back: Negative for injury and pain, Skin: Negative for injury, rash, and discoloration, Neuro: Negative for headache, weakness, numbness, tingling, and seizure, Psych: Negative for depression, anxiety, suicide ideation, homicidal ideation, and hallucinations, Allergy/Immunology: Negative for hives, rash, and allergies, Endocrine: Negative for neck swelling, polydipsia, polyuria, polyphagia, and marked weight changes, Hematologic/Lymphatic: Negative for swollen nodes, abnormal bleeding, and unusual bruising, 22:05 All other systems are negative, Exam: 22:05 Constitutional: This is a well developed, well nourished patient who is awake, alert, sp3 and in no acute distress. Head/Face: Normocephalic, atraumatic. Eyes: Pupils equal round and reactive to light, extra-ocular motions intact. Lids and lashes normal. Conjunctiva and sclera are non-icteric and not injected. Cornea within normal limits. Periorbital areas with no swelling, redness, or edema. Neck: Trachea midline, no thyromegaly or masses palpated, and no cervical lymphadenopathy. Supple, full range of motion without nuchal rigidity, or vertebral point tenderness. No Meningismus. Chest/axilla: Normal chest wall appearance and motion. Nontender with no deformity. No lesions are appreciated. Cardiovascular: Regular rate and rhythm with a normal S1 and S2. No gallops, murmurs, or rubs. Normal PMI, no JVD. No pulse deficits. Respiratory: Lungs have equal breath sounds bilaterally, clear to auscultation and percussion. No rales, rhonchi or wheezes noted. No increased work of breathing, no retractions or nasal flaring. Abdomen/GI: Soft, non-tender, with normal bowel sounds. No distension or tympany. No guarding or rebound. No evidence of tenderness throughout. Back: No spinal tenderness. No costovertebral tenderness. Full range of motion. Skin: Warm, dry with normal turgor. Normal color with no rashes, no lesions, and no evidence of cellulitis. Neuro: Awake and alert, GCS 15, oriented to person, place, time, and situation. Cranial nerves II-XII grossly intact. Motor strength 5/5 in all extremities. Sensory grossly intact. Cerebellar exam normal. Normal gait. Psych: Awake, alert, with orientation to person, place and time. Behavior, mood, and affect are within normal limits. 22:05 Musculoskeletal/extremity: Mild pain at the inguinal canal. Not suspecting hip full range of motion and distal neurovascular exam on the right lower extremity is normal. Patient is ambulatory.. Vital Signs: 21:33 Weight 72.57 kg; Height 5 ft. 4 in. ; Pain 9/10; vc1 21:37 BP 135 / 98; Pulse 98; Resp 20; Temp 98.8; Pulse Ox 99% ; vc1 21:33 Body Mass Index 27.46 (72.57 kg, 162.56 cm) vc1 21:33 Pain Scale: Adult vc1 MDM: 21:42 Patient medically screened. sp3 22:06 Data reviewed: vital signs, nurses notes. ED course: Mechanical ground-level fall sp3 without likely serious injury. I am not suspecting pelvic fracture including rami, hip fracture, or any other critical pathology. Will obtain x-ray of the hip on the right side and discharge home if negative. Patient already took [place] and ibuprofen prior to arrival.. 02/26 22:05 Order name: Hip Right 2 View EDMS Administered Medications: 22:51 Not Given (Patient Refused): [id number] mg PO once cm10 Disposition Summary: 02/26/23 22:53 Discharge Ordered Notes: Location: Home sp3 Condition: Stable sp3 Diagnosis - Right hip contusion sp3 Followup: sp3 - With: Private Physician - When: Upon discharge from the Emergency Department - Reason: Continuance of care Discharge Instructions: - Discharge Summary Sheet sp3 - Hip Sprain sp3 Forms: - Medication Reconciliation Form sp3 - Thank You Letter sp3 - Antibiotic Education sp3 - Prescription Opioid Use sp3 - Patient Portal Instructions sp3 - Leadership Thank You Letter sp3 Prescriptions: - Diclofenac Sodium 75 mg Oral Tablet Sustained Release - take 1 tablet ORAL route 2 times per day; 30 tablet; Refills: 0, Product sp3 Selection Permitted Signatures: Dispatcher [employer] EDMS Yamini Gonzalez MD MD sp3 Sheyla Mascorro RN RN vc1 Debora Regalado RN RN cm10 Corrections: (The following items were deleted from the chart) 21:35 21:35 Allergies: Morphine; vc1 vc1
--- NOTE | 2023-02-26 22:54 | ER ---
Nurse's Notes [facility] Name: Rody Doan Age: 47 yrs Sex: Female : 1975 Arrival Date: 02/26/2023 Time: 21:07 Bed 10 Private MD: Diagnosis: Right hip contusion Presentation: 02/26 21:33 Chief complaint: Patient states: fell walking down the stairs. My dog pulled and I slid vc1 down the last 4 stairs. I just had a complete hip replacement in October. My right shoulder hurts and my chest is tight. Coronavirus screen: Vaccine status: Patient reports being unvaccinated. At this time, the client does not indicate any symptoms associated with coronavirus-19. Ebola Screen: Patient negative for fever greater than or equal to 101.5 degrees Fahrenheit, and additional compatible Ebola Virus Disease symptoms Patient denies exposure to infectious person. Patient denies travel to an Ebola-affected area in the 21 days before illness onset. No symptoms or risks identified at this time. Risk Assessment: Do you want to hurt yourself or someone else? Patient reports no desire to harm self or others. Onset of symptoms was February 26, 2023 at 20:30. 21:33 Method Of Arrival: Ambulatory vc1 21:33 Acuity: MEGHA 3 vc1 22:57 Initial Sepsis Screen: Does the patient meet any 2 criteria? No. Patient's initial cm10 sepsis screen is negative. Does the patient have a suspected source of infection? No. Patient's initial sepsis screen is negative. Triage Assessment: 21:35 General: Appears in no apparent distress. uncomfortable, Behavior is calm, cooperative, vc1 appropriate for age. Pain: Complains of pain in right hip and right arm Pain currently is 9 out of 10 on a pain scale. Aggravated by increased activity, weight bearing. EENT: No deficits noted. No signs and/or symptoms were reported regarding the EENT system. Neuro: Level of Consciousness is awake, alert, obeys commands, Oriented to person, place, time, situation, Appropriate for age. Cardiovascular: No deficits noted. Respiratory: Airway is patent Respiratory effort is even, unlabored, Respiratory pattern is regular, symmetrical. GI: No deficits noted. No signs and/or symptoms were reported involving the gastrointestinal system. : No deficits noted. No signs and/or symptoms were reported regarding the genitourinary system. Derm: No deficits noted. No signs and/or symptoms reported regarding the dermatologic system. Musculoskeletal: Reports pain in right arm and right leg. 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 - Social history:: Smoking status: Patient reports the use of cigarette tobacco products, smokes one-half pack cigarettes per day. Screenin:18 [facility] ED Fall Risk Assessment (Adult) History of falling in the last 3 months, cm10 including since admission Yes- single mechanical fall (1 pt) Confusion or Disorientation No (0 pts) Intoxicated or Sedated No (0 pts) Impaired Gait No (0 pts) Mobility Assist Device Used No (0 pt) Altered Elimination No (0 pt) Score/Fall Risk Level 0 - 2 = Low Risk Oriented to surroundings, Maintained a safe environment, Hourly rounding (assess needs \T\ fall precautionary measures) done. Abuse screen: Denies threats or abuse. Denies injuries from another. Nutritional screening: No deficits noted. Tuberculosis screening: No symptoms or risk factors identified. Assessment: 22:17 General: Appears in no apparent distress. comfortable, Behavior is calm, cooperative. cm10 Pain: Complains of pain in right leg and right arm Pain does not radiate. Pain currently is 9 out of 10 on a pain scale. Neuro: No deficits noted. [place] Agitation-Sedation Scale (RASS): 0 - Alert and Calm Level of Consciousness is awake, alert, obeys commands, Oriented to person, place, time, situation. Cardiovascular: No deficits noted. Patient's skin is warm and dry. Respiratory: No deficits noted. Airway is patent Respiratory effort is Respiratory pattern is regular, symmetrical. GI: No deficits noted. No signs and/or symptoms were reported involving the gastrointestinal system. : No deficits noted. No signs and/or symptoms were reported regarding the genitourinary system. EENT: No deficits noted. No signs and/or symptoms were reported regarding the EENT system. Derm: No deficits noted. No signs and/or symptoms reported regarding the dermatologic system. Skin is intact, Skin is pink, warm \T\ dry. Musculoskeletal: No deficits noted. Reports pain in right leg and right arm. Vital Signs: 21:33 Weight 72.57 kg; Height 5 ft. 4 in. ; Pain 9/10; vc1 21:37 BP 135 / 98; Pulse 98; Resp 20; Temp 98.8; Pulse Ox 99% ; vc1 21:33 Body Mass Index 27.46 (72.57 kg, 162.56 cm) vc1 21:33 Pain Scale: Adult vc1 ED Course: 21:11 Patient arrived in ED. mr 21:13 Yamini Gonzalez MD is Attending Physician. sp3 21:35 Triage completed. vc1 21:35 Arm band placed on right wrist. vc1 22:18 Patient has correct armband on for positive identification. Bed in low position. Call cm10 light in reach. Provided Education on: ER process and procedures. . 22:18 No provider procedures requiring assistance completed. Patient did not have IV access cm10 during this emergency room visit. 22:50 Hip Right 2 View In Process Unspecified. EDMS Administered Medications: 22:51 Not Given (Patient Refused): [id number] mg PO once cm10 Medication: 22:18 VIS not applicable for this client. cm10 Outcome: 22:53 Discharge ordered by . sp3 22:57 Discharged to home cm10 22:57 Condition: good 22:57 Discharge instructions given to Pt left prior to receiving D/C paper. 22:57 Patient left the ED. cm10 Signatures: Dispatcher [employer] EDMO Silvia Melendez, Reg Reg Yamini Gonzalez MD MD sp3 Sheyla Mascorro RN RN vc1 Debora Regalado, RN RN cm10 Corrections: (The following items were deleted from the chart) 21:35 21:35 Allergies: Morphine; vc1 vc1
[2023-02-26] MEDS ORDERED: ACETAMINOPHEN 325 MG TABLET ONE (22:55)
[2023-02-26 23:50] VITALS: BP 135/98; TEMP 98.8; O2SAT 99
--- NOTE | 2023-02-28 12:36 | RAD REPORT ---
EXAM DESCRIPTION: RAD - Hip Right 2 View - 02/26/2023 10:48 pm CLINICAL HISTORY: FALL TECHNIQUE: Two views of the right hip. COMPARISON: No relevant prior studies available. FINDINGS: Bones/joints: Total hip arthroplasty hardware in place. No acute fracture. No disloc ation. Soft tissues: Unremarkable. IMPRESSION: No acute injury. Electronically signed by: Cat Michel MD 02/26/2023 11:06 PM [employer] Due to temporary technical issues with the PACS/Fluency reporting system, reports are being signed by the in house radiologist without review as a courtesy to ensure prompt reporting. The interpreting r adiologist is fully responsible for the content of the report.
== END 2023-02-26 22:57 | disposition home or self-care (01) ==
LOC: ER 21:07
DX: S70.01XA Contusion of right hip, initial encounter (principal); W01.0XXA Fall on same level from slipping, tripping and stumbling without subsequent striking against object, initial encounter; Y93.K1 Activity, walking an animal; Y92.9 Unspecified place or not applicable; Y99.8 Other external cause status; F31.9 Bipolar disorder, unspecified; I10 Essential (primary) hypertension; G89.29 Other chronic pain; F17.210 Nicotine dependence, cigarettes, uncomplicated; Z96.641 Presence of right artificial hip joint; Z88.0 Allergy status to penicillin; Z88.8 Allergy status to other drugs, medicaments and biological substances
CPT/HCPCS: 99282

== ENCOUNTER 2023-03-25 10:25 | Emergency (ER) | payer OTHER ==
--- OUTSIDE RECORDS SUMMARY | 2023-03-25 10:45 | XMS REPORT | Continuity of Care Document ---
Author Name Unknown Address [address] [facility] [address] [place] [address] [facility] thconnect Address [address] [facility] [address] [place] [address] Care Team Providers Care Lead Ingot Molder Name Role Phone Asked, No Pcp Primary Care Physician Unavailab ANIKA Delacruz Attending Clinician Unavailable GC_GCBZW_Harpreet_S Attending Clinician Unavaila SATHISH Gonzalez Attending Clinician UnavailSATHISH Whitley Attending Clinician Unavailluciana orozco Doctor Unassigned, [place] Attending Clinician U ERIN Meyer Attending Clinician Unavailable ERIN ARGUELLO Attending Clinician Unavailable YENNI BECERRA Attending Clinician YENNI Bruno Attending Clinician Sharon Solitario Attending Clinician Unavailable Husam Sol MD Attending Clinician + [phone] Ronnie CARLOS [facility] Katheryn Attending Clinician [phone] Mathew Viera DO Attending Clinician + [phone] Provider, Unknown Attending Clinician MARIIA Bailey Attending Clinician UnavailMariia Bush Attending Clinician Stefania Tobar MD Attending Clinician [phone] LUTHER JOSE Attending Clinician Unavailjose raul YODER_Goytia_Cody Attending Clinician Unavaila keara Ariza MD, Seth Attending Clinician [phone] STEFANIA TOBAR Attending Clinician Unavailable LISA MURILLO Attending Clinician Unavailable Lisa Lopez Attending Clinician +- [phone] STEFANIA HERNADEZ Attending Clinician UnavailStefania Hdez DO Attending Clinician [phone] ANDERSON ALATORRE Attending Clinician Unavailab Anderson Machado MD Attending Clinician [phone] Dionisio Freeman MD Attending Clinician [phone] Kristine Ojeda MD Attending Clinician Unavailable [facility] Attending Clinician Unavailable Lex Ochoa MD Attending Clinician [phone] LEX OCHOA Attending Clinician Unavailab El Finley Attending Clinician UnavailDOROTEO White Attending Clinician Unavailab NINA Oconnor Attending Clinician Unavailable NIAN SALGADO Attending Clinician Unavailable ILA SALDIVAR Attending Clinician Unavailable UNKNOWN, ATTENDING Attending Clinician Unavailab Kirk Knott DO Attending Clinician [phone] SREEKANTH MONSALVE Attending Clinician Unavailable JUAN CARLOS PIEDRA Attending Clinician Unavailable Ila Pinto Attending Clinician +- [phone] Lynda Shultz MD Attending Clinician [phone] STEFANIA HOPKINS Attending Clinician Unavailable Juan Carlos Rice Attending Clinician + [phone] LYNDA SHULTZ Attending Clinician Unavailable [facility] Attending Clinician Unavailable JV RANDHAWA Attending Clinician Unavailable Mick Jaime MD Attending Clinician [phone] PAULINA ZAMORA Attending Clinician Unavaila Paulina Ramírez MD Attending Clinician + [phone] Mariangel Vogel RN Attending Clinician Unavailab Gee Chaudhary MD Attending Clinician + [phone] BRADEN DEAN Attending Clinician Unavailable Yolande CARLOS, [facility] Halima Attending Clinician [phone] Aparna Rowley Attending Clinician GC_GCBZW_Kadiyala_S Admitting Clinician Unavaila Sharon Corey Admitting Clinician Unavailable UNDEFINED Admitting Clinician Unavailable MATHEW VIERA Admitting Clinician Unavailable MD RONNIE [facility] KATHERYN Admitting Clinician Unavail able MARIIA CURRAN Admitting Clinician Unavaila keara YODER_Oral_Ezequiel_ Admitting Clinician Unavaila LISA Allen Admitting Clinician Unavailable ANDERSON ALATORRE Admitting Clinician Unavailab le Payers Payer Name Policy Type Policy Number Effective Date Expirati on Date Source [facility] [id number] [facility] PL[facility] [id number] 00:00:00 [facility] COMM[facility] DH - DUAL (MEDICARE REPLACEMENT HMO) [id number] Problems Condition Name Condition Details Condition Category Status Onset Date Resolution Date Last Treatment Date Treating Clinician Comments Source Intractabl e pain Intractabl e pain Disease Active 10-11 00:00: [address] [facility] Hip pain, acute, right Hip pain, acute, right Disease Active 10-11 00:00: [address] [facility] Closed fracture of right hip Closed fracture of right hip Disease Active 10-11 00:00: [address] [facility] Other specified complicati on of , unspecifie d as to episode of care Other specified complicati on of , unspecifie d as to episode of care Disease Active 11-05 00:00: 00 [facility] Allergies, Adverse Reactions, Alerts Allergy Name Allergy Type Status Severity Reaction(s) Onset Date Inactive Date Treating Clinician Comments Source No Known Allergie s DA Active U 10-16 00:00: 00 [facility] are [facility] NO KNOWN ALLERGIE S Drug Class Active [facility] Family History Family Member Diagnosis Comments Start Date Stop Date Sourc e Natural father Heart Unive [facility] Natural mother Diabetes Unive [facility] Natural mother Heart Unive [facility] Social History Social Habit Start Date Stop Date Quantity Comments Source History of tobacco use Cigarette Smoker [facility] Gender identity Meth [facility] Sexual orientation [facility] Cigarettes smoked current (pack per day) - Reported 2022-10-12 00:00:00 2022-10-12 00:00:00 [facility] Exposure to SARS-CoV-2 (event) 2022-07-18 00:00:00 2022-07-28 08:24:00 Not sure [facility] Alcohol intake 2022-07-28 00:00:00 2022-07-28 00:00:00 Current non-drinker of alcohol (finding) [facility] History of Social function 2022-04-25 00:00:00 2022-04-25 00:00:00 [facility] Tobacco use and exposure 2022-04-25 00:00:00 2022-04-25 00:00:00 Smokeless tobacco non-user [facility] Cigarette pack-years 2022-04-25 00:00:00 2022-04-25 00:00:00 [facility] Sex Assigned At 1975 00:00:00 1975 00:00:00 [facility] Smoking Status Start Date Stop Date Source Tobacco smoking consumption unknown [facility] Smokes tobacco daily 2022-10-12 00:00:00 [facility] Medications Ordered Medication Name Filled Medication Name Start Date Stop Date Current Medication? Ordering Clinician Indication Dosage Frequency Signature (SIG) Comments Components Source levothyroxi ne (SYNTHROID) 150 mcg tablet 10-13 13:19: 04 Yes 150ug QD Take 1 tablet (150 mcg total) by mouth daily. [facility] clonAZEPAM (KlonoPIN) 1 MG tablet 10-13 13:19: 04 Yes 2mg Q.[id number] 3D Take 2 tablets (2 mg total) by mouth 3 (three) times a day. [facility] SUMAtriptan (IMITREX) 25 MG tablet 10-13 13:19: 04 Yes 25mg Take 1 tablet (25 mg total) by mouth as needed for migraine. May repeat in 2 hours if unresolved . Do not exceed 200 mg in [address] [facility] lisinopriL (PRINIVIL) 20 mg tablet 10-13 13:19: 04 Yes 30mg QD Take 1.5 tablets (30 mg total) by mouth daily. [facility] oxyCODone-a cetaminophe n (PERCOCET) 10-325 mg per tablet 10-13 13:19: 04 Yes [id number] 1{tbl} Q4H Take 1 tablet by mouth every 4 (four) hours as needed for moderate pain .acute pain. Max Daily Amount: 6 tablets [facility] pregabalin (LYRICA) 150 MG capsule 10-13 13:19: 04 Yes 150mg Q.[id number] 3D Take 1 capsule (150 mg total) by mouth 3 (three) times a day. [facility] levothyroxi ne (SYNTHROID) 150 mcg tablet 10-13 13:19: 04 Yes 150ug QD Take 1 tablet (150 mcg total) by mouth daily. [facility] clonAZEPAM (KlonoPIN) 1 MG tablet 10-13 13:19: 04 Yes 2mg Q.[id number] 3D Take 2 tablets (2 mg total) by mouth 3 (three) times a day. [facility] SUMAtriptan (IMITREX) 25 MG tablet 10-13 13:19: 04 Yes 25mg Take 1 tablet (25 mg total) by mouth as needed for migraine. May repeat in 2 hours if unresolved . Do not exceed 200 mg in 24 hours. [facility] lisinopriL (PRINIVIL) 20 mg tablet 10-13 13:19: 04 Yes 30mg QD Take 1.5 tablets (30 mg total) by mouth daily. [facility] oxyCODone-a cetaminophe n (PERCOCET) 10-325 mg per tablet 10-13 13:19: 04 Yes [id number] 1{tbl} Q4H Take 1 tablet by mouth every 4 (four) hours as needed for moderate pain .acute pain. Max Daily Amount: 6 tablets [facility] pregabalin (LYRICA) 150 MG capsule 10-13 13:19: 04 Yes 150mg Q.[id number] 3D Take 1 capsule (150 mg total) by mouth 3 (three) times a day. [facility] levothyroxi ne (SYNTHROID) 150 mcg tablet 10-13 13:19: 04 Yes 150ug QD Take 1 tablet (150 mcg total) by mouth daily. [facility] clonAZEPAM (KlonoPIN) 1 MG tablet 10-13 13:19: 04 Yes 2mg Q.[id number] 3D Take 2 tablets (2 mg total) by mouth 3 (three) times a day. [facility] SUMAtriptan (IMITREX) 25 MG tablet 10-13 13:19: 04 Yes 25mg Take 1 tablet (25 mg total) by mouth as needed for migraine. May repeat in 2 hours if unresolved . Do not exceed 200 mg in 24 hours. [facility] lisinopriL (PRINIVIL) 20 mg tablet 10-13 13:19: 04 Yes 30mg QD Take 1.5 tablets (30 mg total) by mouth daily. [facility] oxyCODone-a cetaminophe n (PERCOCET) 10-325 mg per tablet 10-13 13:19: 04 Yes [id number] 1{tbl} Q4H Take 1 tablet by mouth every 4 (four) hours as needed for moderate pain .acute pain. Max Daily Amount: 6 tablets [facility] pregabalin (LYRICA) 150 MG capsule 10-13 13:19: 04 Yes 150mg Q.[id number] 3D Take 1 capsule (150 mg total) by mouth 3 (three) times a day. [facility] levothyroxi ne (SYNTHROID) 150 mcg tablet 10-13 13:19: 04 Yes 150ug QD Take 1 tablet (150 mcg total) by mouth daily. [facility] clonAZEPAM (KlonoPIN) 1 MG tablet 10-13 13:19: 04 Yes 2mg Q.[id number] 3D Take 2 tablets (2 mg total) by mouth 3 (three) times a day. [facility] l SUMAtriptan (IMITREX) 25 MG tablet 10-13 13:19: 04 Yes 25mg Take 1 tablet (25 mg total) by mouth as needed for migraine. May repeat in 2 hours if unresolved . Do not exceed 200 mg in 24 hours. [facility] lisinopriL (PRINIVIL) 20 mg tablet 10-13 13:19: 04 Yes 30mg QD Take 1.5 tablets (30 mg total) by mouth daily. [facility] oxyCODone-a cetaminophe n (PERCOCET) 10-325 mg per tablet 10-13 13:19: 04 Yes [id number] 1{tbl} Q4H Take 1 tablet by mouth every 4 (four) hours as needed for moderate pain .acute pain. Max Daily Amount: 6 tablets [facility] pregabalin (LYRICA) 150 MG capsule 10-13 13:19: 04 Yes 150mg Q.[id number] 3D Take 1 capsule (150 mg total) by mouth 3 (three) times a day. [facility] ondansetron ODT (ZOFRAN-ODT ) 4 MG disintegrat ing tablet 07-28 00:00: 00 08-03 04:59 :00 No 4mg Q8H Take 1 tablet (4 mg total) by mouth every 8 (eight) hours as needed for nausea or vomiting for up to 5 days. [facility] acetaminoph en-codeine (TYLENOL WITH CODEINE #3) 300-30 mg per tablet 07-28 00:00: 00 08-03 04:59 :00 No [id number] 1{tbl} Q6H Take 1-2 tablets by mouth every 6 (six) hours as needed for moderate pain for up to 5 days .acute pain. [facility] ondansetron ODT (ZOFRAN-ODT ) 4 MG disintegrat ing tablet 07-28 00:00: 00 08-03 04:59 :00 No 4mg Q8H Take 1 tablet (4 mg total) by mouth every 8 (eight) hours as needed for nausea or vomiting for up to 5 days. [facility] acetamin[facility]-codeine (TYLENOL WITH CODEINE #3) 300-30 mg per tablet 14 00:00: 00 08-03 04:59 :00 No [id number] 1{tbl} Q6H Take 1-2 tablets by mouth every 6 (six) hours as needed for moderate pain for up to 5 days .acute pain. [facility] ondansetron ODT (ZOFRAN-ODT ) 4 MG disintegrat ing tablet 14 00:00: 00 08-03 04:59 :00 No 4mg Q8H Take 1 tablet (4 mg total) by mouth every 8 (eight) hours as needed for nausea or vomiting for up to [address] [facility] l acetaminoph en-codeine (TYLENOL WITH CODEINE #3) 300-30 mg per tablet 07-28 00:00: 00 08-03 04:59 :00 No [id number] 1{tbl} Q6H Take 1-2 tablets by mouth every 6 (six) hours as needed for moderate pain for up to 5 days .acute pain. [facility] ondansetron ODT (ZOFRAN-ODT ) 4 MG disintegrat ing tablet 07-28 00:00: 00 08-03 04:59 :00 No 4mg Q8H Take 1 tablet (4 mg total) by mouth every 8 (eight) hours as needed for nausea or vomiting for up to [address] [facility] l acetaminoph en-codeine (TYLENOL WITH CODEINE #3) 300-30 mg per tablet 14 00:00: 00 08-03 04:59 :00 No [id number] 1{tbl} Q6H Take 1-2 tablets by mouth every 6 (six) hours as needed for moderate pain for up to 5 days .acute pain. [facility] l ondansetron ODT (ZOFRAN-ODT ) 4 MG disintegrat ing tablet 14 00:00: 00 08-03 04:59 :00 No 4mg Q8H Take 1 tablet (4 mg total) by mouth every 8 (eight) hours as needed for nausea or vomiting for up to 5 days. [facility] acetaminoph en-codeine (TYLENOL WITH CODEINE #3) 300-30 mg per tablet 07-28 00:00: 00 08-03 04:59 :00 No [id number] 1{tbl} Q6H Take 1-2 tablets by mouth every 6 (six) hours as needed for moderate pain for up to 5 days .acute pain. [facility] ondansetron ODT (ZOFRAN-ODT ) 4 MG disintegrat ing tablet 07-28 00:00: 00 08-03 04:59 :00 No 4mg Q8H Take 1 tablet (4 mg total) by mouth every 8 (eight) hours as needed for nausea or vomiting for up to 5 days. [facility] acetaminoph en-codeine (TYLENOL WITH CODEINE #3) 300-30 mg per tablet 07-28 00:00: 00 08-03 04:59 :00 No [id number] 1{tbl} Q6H Take 1-2 tablets by mouth every 6 (six) hours as needed for moderate pain for up to 5 days .acute pain. [facility] ondansetron ODT (ZOFRAN-ODT ) 4 MG disintegrat ing tablet 07-28 00:00: 00 08-03 04:59 :00 No 4mg Q8H Take 1 tablet (4 mg total) by mouth every 8 (eight) hours as needed for nausea or vomiting for up to 5 days. [facility] acetaminoph en-codeine (TYLENOL WITH CODEINE #3) 300-30 mg per tablet 07-28 00:00: 00 08-03 04:59 :00 No [id number] 1{tbl} Q6H Take 1-2 tablets by mouth every 6 (six) hours as needed for moderate pain for up to 5 days .acute pain. [facility] keTOROlac (TORadol) 10 mg tablet 07-28 00:00: 00 08-02 04:59 :00 No 10mg Q6H Take 1 tablet (10 mg total) by mouth every 6 (six) hours as needed for moderate pain for up to 4 days. [facility] keTOROlac (TORadol) 10 mg tablet 0 14 00:00: 00 08-02 04:59 :00 No 10mg Q6H Take 1 tablet (10 mg total) by mouth every 6 (six) hours as needed for moderate pain for up to [address] [facility] 10 mg tablet 2022-0 14 00:00: 00 08-02 04:59 :00 No 10mg Q6H Take 1 tablet (10 mg total) by mouth every 6 (six) hours as needed for moderate pain for up to 4 days. [facility] keTOROlac (TORadol) 10 mg tablet 0 14 00:00: 00 08-02 04:59 :00 No 10mg Q6H Take 1 tablet (10 mg total) by mouth every 6 (six) hours as needed for moderate pain for up to 4 days. [facility] keTOROlac (TORadol) 10 mg tablet 0 14 00:00: 00 08-02 04:59 :00 No 10mg Q6H Take 1 tablet (10 mg total) by mouth every 6 (six) hours as needed for moderate pain for up to 4 days. [facility] keTOROlac (TORadol) 10 mg tablet 0 14 00:00: 00 08-02 04:59 :00 No 10mg Q6H Take 1 tablet (10 mg total) by mouth every 6 (six) hours as needed for moderate pain for up to 4 days. [facility] keTOROlac (TORadol) 10 mg tablet 0 14 00:00: 00 08-02 04:59 :00 No 10mg Q6H Take 1 tablet (10 mg total) by mouth every 6 (six) hours as needed for moderate pain for up to 4 days. [facility] FENTanyl PF (SUBLIMAZE (PF)) injection 50 mcg 07-23 04:30: 00 07-23 03:54 :00 No 50ug 50 mcg, Slow IV Push, ONCE, 1 dose, On 07/22/22 at 2330, [facility] ondansetron (ZOFRAN (PF)) injection 4 mg 07-23 01:45: 00 07-23 02:03 :00 No 4mg 4 mg, Slow IV Push, ONCE, 1 dose, On 07/22/22 at 2045, [facility] NaCl 0.9% (NS) bolus infusion 1,000 mL 07-23 01:45: 00 07-23 05:12 :00 No 1000mL at 999 mL/hr, 1,000 mL, IV Infusion, ONCE, 1 dose, On 07/22/22 at 204, [facility] USE 1 UNIT DOSE IN NEBULIZER EVERY 4 TO 6 HOURS NEEDED. 05-03 00:00: 00 No BUDESONIDE/ FORMOTEROL FUMARATE DIHY DRATE 160-4.5 MCG/ACT AERO 05-03 00:00: 00 No amLODIPine 5 mg tablet 04-25 14:05: 17 Yes [id number] 5mg Take 5 mg by mouth in the morning. [facility] amLODIPine 5 mg tablet 04-25 14:05: 17 Yes [id number] 5mg Take 5 mg by mouth in the morning. [facility] amLODIPine 5 mg tablet 04-25 14:05: 17 Yes [id number] 5mg Take 5 mg by mouth in the morning. [facility] amLODIPine 5 mg tablet 04-25 14:05: 17 Yes [id number] 5mg Take 5 mg by mouth in the morning. [facility] amLODIPine 5 mg tablet 04-25 14:05: 17 Yes [id number] 5mg Take 5 mg by mouth in the morning. [facility] amLODIPine 5 mg tablet 04-25 14:05: 17 Yes [id number] 5mg Take 5 mg by mouth in the morning. [facility] amLODIPine 5 mg tablet 04-25 14:05: 17 Yes [id number] 5mg Take 5 mg by mouth in the morning. [facility] amLODIPine 5 mg tablet 3-0 -10 14:05: 17 Yes [id number] 5mg Take 5 mg by mouth in the morning. [facility] amLODIPine 5 mg tablet 3-0 10 14:05: 17 Yes [id number] 5mg Take 5 mg by mouth in the morning. [facility] amLODIPine 5 mg tablet 3-0 10 14:05: 17 Yes [id number] 5mg Take 5 mg by mouth in the morning. [facility] amLODIPine 5 mg tablet 3-0 10 14:05: 17 Yes [id number] 5mg Take 5 mg by mouth in the morning. [facility] amLODIPine 5 mg tablet 3-0 04-25 14:05: 17 Yes [id number] 5mg Take 5 mg by mouth in the morning. [facility] amLODIPine 5 mg tablet 3-0 04-25 14:05: 17 Yes [id number] 5mg Take 5 mg by mouth in the morning. [facility] amLODIPine 5 mg tablet 3-0 04-25 14:05: 17 Yes [id number] 5mg Take 5 mg by mouth [facility] the morning. [facility] amLODIPine 5 mg tablet 3-0 04-25 14:05: 17 Yes [id number] 5mg Take 5 mg by mouth in the morning. [facility] amLODIPine 5 mg tablet 3-0 10 14:05: 17 Yes [id number] 5mg Take 5 mg by mouth in the morning. [facility] amLODIPine 5 mg tablet 3-0 10 14:05: 17 Yes [id number] 5mg Take 5 mg by mouth in the morning. [facility] amLODIPine 5 mg tablet 3-0 10 14:05: 17 Yes [id number] 5mg Take 5 mg by mouth in the morning. [facility] amLODIPine 5 mg tablet 2023-0 -10 14:05: 17 Yes [id number] 5mg Take 5 mg by mouth in the morning. [facility] amLODIPine 5 mg tablet 3-0 1-10 14:05: 17 Yes [id number] 5mg Take 5 mg by mouth in the morning. [facility] amLODIPine 5 mg tablet 0 04-25 14:05: 17 Yes [id number] 5mg Take 5 mg by mouth in the morning. [facility] amLODIPine 5 mg tablet 0 04-25 14:05: 17 Yes [id number] 5mg Take 5 mg by mouth in the morning. [facility] amLODIPine 5 mg tablet 0 04-25 14:05: 17 Yes [id number] 5mg Take 5 mg by mouth in the morning. [facility] amLODIPine 5 mg tablet 0 04-25 14:05: 17 Yes [id number] 5mg Take 5 mg by mouth in the morning. [facility] amLODIPine 5 mg tablet 0 04-25 14:05: 17 Yes [id number] 5mg Take 5 mg by mouth in the morning. [facility] amLODIPine 5 mg tablet 0 04-25 14:05: 17 Yes [id number] 5mg Take 5 mg by mouth in the morning. [facility] amLODIPine 5 mg tablet 0 04-25 14:05: 17 Yes [id number] 5mg Take 5 mg by mouth in the morning. [facility] omeprazole 40 mg capsule 0 04-25 13:52: 26 Yes [id number] 40mg Take 40 mg by mouth in the morning. [facility] omeprazole 40 mg capsule 0 04-25 13:52: 26 Yes [id number] 40mg Take 40 mg by mouth in the morning. [facility] omeprazole 40 mg capsule 2022-0 04-25 13:52: 26 Yes [id number] 40mg Take 40 mg by mouth in the morning. [facility] omeprazole 40 mg capsule 2022-0 04-25 13:52: 26 Yes [id number] 40mg Take 40 mg by mouth in the morning. [facility] omeprazole 40 mg capsule 2022-0 04-25 13:52: 26 Yes [id number] 40mg Take 40 mg by mouth in the morning. [facility] omeprazole 40 mg capsule 2022-0 04-25 13:52: 26 Yes [id number] 40mg Take 40 mg by mouth in the morning. [facility] 3-0 -10 13:52: 26 Yes [id number] 40mg Take 40 mg by mouth in the morning. [facility] omeprazole 40 mg capsule 2022-0 04-25 13:52: 26 Yes [id number] 40mg Take 40 mg by mouth in the morning. [facility] omeprazole 40 mg capsule 2022-0 04-25 13:52: 26 Yes [id number] 40mg Take 40 mg by mouth in the morning. [facility] omeprazole 40 mg capsule 2022-0 04-25 13:52: 26 Yes [id number] 40mg Take 40 mg by mouth in the morning. [facility] omeprazole 40 mg capsule 2022-0 04-25 13:52: 26 Yes [id number] 40mg Take 40 mg by mouth in the morning. [facility] omeprazole 40 mg capsule 2022-0 04-25 13:52: 26 Yes [id number] 40mg Take 40 mg by mouth in the morning. [facility] omeprazole 40 mg capsule 0 04-25 13:52: 26 Yes [id number] 40mg Take 40 mg by mouth in the morning. [facility] omeprazole 40 mg capsule 0 04-25 13:52: 26 Yes [id number] 40mg Take 40 mg by mouth in the morning. [facility] omeprazole 40 mg capsule 2022-0 04-25 13:52: 26 Yes [id number] 40mg Take 40 mg by mouth in the morning. [facility] omeprazole 40 mg capsule 3-0 04-25 13:52: 26 Yes [id number] 40mg Take 40 mg by mouth in the morning. [facility] omeprazole 40 mg capsule 3-0 -10 13:52: 26 Yes [id number] 40mg Take 40 mg by mouth in the morning. [facility] omeprazole 40 mg capsule 3-0 -10 13:52: 26 Yes [id number] 40mg Take 40 mg by mouth in the morning. [facility] omeprazole 40 mg capsule 2022-0 10 13:52: 26 Yes [id number] 40mg Take 40 mg by mouth in the morning. [facility] omeprazole 40 mg capsule 2022-0 10 13:52: 26 Yes [id number] 40mg Take 40 mg by mouth in the morning. [facility] omeprazole 40 mg capsule 0 04-25 13:52: 26 Yes [id number] 40mg Take 40 mg by mouth in the morning. [facility] omeprazole 40 mg capsule 0 04-25 13:52: 26 Yes [id number] 40mg Take 40 mg by mouth in the morning. [facility] omeprazole 40 mg capsule 0 04-25 13:52: 26 Yes [id number] 40mg Take 40 mg by mouth in the morning. [facility] omeprazole 40 mg capsule 0 04-25 13:52: 26 Yes [id number] 40mg Take 40 mg by mouth in the morning. [facility] omeprazole 40 mg capsule 0 04-25 13:52: 26 Yes [id number] 40mg Take 40 mg by mouth in the morning. [facility] omeprazole 40 mg capsule 0 04-25 13:52: 26 Yes [id number] 40mg Take 40 mg by mouth in the morning. [facility] omeprazole 40 mg capsule 0 04-25 13:52: 26 Yes [id number] 40mg Take 40 mg by mouth in the morning. [facility] clonazePAM 1 mg tablet 0 04-25 13:51: 23 Yes [id number] 1mg Take 1 mg by mouth 3 (three) times daily as needed. [facility] clonazePAM 1 mg tablet 2022-0 04-25 13:51: 23 Yes [id number] 1mg Take 1 mg by mouth 3 (three) times daily as needed. [facility] clonazePAM 1 mg tablet 2022-0 - 13:51: 23 Yes [id number] 1mg Take 1 mg by mouth 3 (three) times daily as needed. [facility] clonazePAM 1 mg tablet 3-0 1-10 13:51: 23 Yes [id number] 1mg Take 1 mg by mouth 3 (three) times daily as needed. [facility] clonazePAM 1 mg tablet 2022-0 -10 13:51: 23 Yes [id number] 1mg Take 1 mg by mouth 3 (three) times daily as needed. [facility] clonazePAM 1 mg tablet 3-0 1-10 13:51: 23 Yes [id number] 1mg Take 1 mg by mouth 3 (three) times daily as needed. [facility] clonazePAM 1 mg tablet 3-0 1-10 13:51: 23 Yes [id number] 1mg Take 1 mg by mouth 3 (three) times daily as needed. [facility] clonazePAM 1 mg tablet 3-0 -10 13:51: 23 Yes [id number] 1mg Take 1 mg by mouth 3 (three) times daily as needed. [facility] clonazePAM 1 mg tablet 3-0 -10 13:51: 23 Yes [id number] 1mg Take 1 mg by mouth 3 (three) times daily as needed. [facility] clonazePAM 1 mg tablet 2022-0 10 13:51: 23 Yes [id number] 1mg Take 1 mg by mouth 3 (three) times daily as needed. [facility] clonazePAM 1 mg tablet 2022-0 -10 13:51: 23 Yes [id number] 1mg Take 1 mg by mouth 3 (three) times daily as needed. [facility] clonazePAM 1 mg tablet 3-0 -10 13:51: 23 Yes [id number] 1mg Take 1 mg by mouth 3 (three) times daily as needed. [facility] clonazePAM 1 mg tablet 3-0 1-10 13:51: 23 Yes [id number] 1mg Take 1 mg by mouth 3 (three) times daily as needed. [facility] clonazePAM 1 mg tablet 3-0 1-10 13:51: 23 Yes [id number] 1mg Take 1 mg by mouth 3 (three) times daily as needed. [facility] clonazePAM 1 mg tablet 3-0 1-10 13:51: 23 Yes [id number] 1mg Take 1 mg by mouth 3 (three) times daily as needed. [facility] clonazePAM 1 mg tablet 3-0 1-10 13:51: 23 Yes [id number] 1mg Take 1 mg by mouth 3 (three) times daily as needed. [facility] clonazePAM 1 mg tablet 3-0 1-10 13:51: 23 Yes [id number] 1mg Take 1 mg by mouth 3 (three) times daily as needed. [facility] clonazePAM 1 mg tablet 3-0 -10 13:51: 23 Yes [id number] 1mg Take 1 mg by mouth 3 (three) times daily as needed. [facility] clonazePAM 1 mg tablet 3-0 -10 13:51: 23 Yes [id number] 1mg Take 1 mg by mouth 3 (three) times daily as needed. [facility] clonazePAM 1 mg tablet 3-0 -10 13:51: 23 Yes [id number] 1mg Take 1 mg by mouth 3 (three) times daily as needed. [facility] clonazePAM 1 mg tablet 3-0 10 13:51: 23 Yes [id number] 1mg Take 1 mg by mouth 3 (three) times daily as needed. [facility] clonazePAM 1 mg tablet 3-0 -10 13:51: 23 Yes [id number] 1mg Take 1 mg by mouth 3 (three) times daily as needed. [facility] clonazePAM 1 mg tablet 3-0 -10 13:51: 23 Yes [id number] 1mg Take 1 mg by mouth 3 (three) times daily as needed. [facility] clonazePAM 1 mg tablet 3-0 -10 13:51: 23 Yes [id number] 1mg Take 1 mg by mouth 3 (three) times daily as needed. [facility] clonazePAM 1 mg tablet 3-0 1-10 13:51: 23 Yes [id number] 1mg Take 1 mg by mouth 3 (three) times daily as needed. [facility] clonazePAM 1 mg tablet 3-0 1-10 13:51: 23 Yes [id number] 1mg Take 1 mg by mouth 3 (three) times daily as needed. [facility] clonazePAM 1 mg tablet 04-25 13:51: 23 Yes [id number] 1mg Take 1 mg by mouth 3 (three) times daily as needed. [facility] lithium carbonate 300 mg tablet 0 -10 00:00: 00 Yes [id number] 150mg Take 0.5 tablets by mouth in the morning. [facility] QUEtiapine 50 mg tablet 0 04-25 00:00: 00 Yes [id number] 50mg Take 1 tablet by mouth at bedtime as needed for Insomnia. [facility] gabapentin 300 mg capsule 04-25 00:00: 00 Yes [id number] 600mg Take 2 capsules by mouth in the morning and 2 capsules at noon and 2 capsules in the evening. [facility] hydrOXYzine 25 mg tablet 0 04-25 00:00: 00 Yes [id number] 25mg Take 1 tablet by mouth every 6 (six) hours as needed for Anxiety. [facility] lithium carbonate 300 mg tablet 0 04-25 00:00: 00 Yes [id number] 150mg Take 0.5 tablets by mouth in the morning. [facility] QUEtiapine 50 mg tablet 0 04-25 00:00: 00 Yes [id number] 50mg Take 1 tablet by mouth at bedtime as needed for Insomnia. [facility] gabapentin 300 mg capsule 0 04-25 00:00: 00 Yes [id number] 600mg Take 2 capsules by mouth in the morning and 2 capsules at noon and 2 capsules in the evening. [facility] hydrOXYzine 25 mg tablet 0 04-25 00:00: 00 Yes [id number] 25mg Take 1 tablet by mouth every 6 (six) hours as needed for Anxiety. [facility] lithium carbonate 300 mg tablet 2022-0 04-25 00:00: 00 Yes [id number] 150mg Take 0.5 tablets by mouth in the morning. [facility] QUEtiapine 50 mg tablet 0 1-10 00:00: 00 Yes [id number] 50mg Take 1 tablet by mouth at bedtime as needed for Insomnia. [facility] gabapentin 300 mg capsule 2022-0 -10 00:00: 00 Yes [id number] 600mg Take 2 capsules by mouth in the morning and 2 capsules at noon and 2 capsules in the evening. [facility] hydrOXYzine 25 mg tablet 3-0 -10 00:00: 00 Yes [id number] 25mg Take 1 tablet by mouth every 6 (six) hours as needed for Anxiety. [facility] lithium carbonate 300 mg tablet 2022-0 -10 00:00: 00 Yes [id number] 150mg Take 0.5 tablets by mouth in the morning. [facility] QUEtiapine 50 mg tablet 2022-0 - 00:00: 00 Yes [id number] 50mg Take 1 tablet by mouth at bedtime as needed for Insomnia. [facility] gabapentin 300 mg capsule 2022-0 - 00:00: 00 Yes [id number] 600mg Take 2 capsules by mouth in the morning and 2 capsules at noon and 2 capsules in the evening. [facility] hydrOXYzine 25 mg tablet 2022-0 - 00:00: 00 Yes [id number] 25mg Take 1 tablet by mouth every 6 (six) hours as needed for Anxiety. [facility] lithium carbonate 300 mg tablet 2022-0 - 00:00: 00 Yes [id number] 150mg Take 0.5 tablets by mouth in the morning. [facility] QUEtiapine 50 mg tablet 2022-0 -10 00:00: 00 Yes [id number] 50mg Take 1 tablet by mouth at bedtime as needed for Insomnia. [facility] gabapentin 300 mg capsule 3-0 -10 00:00: 00 Yes [id number] 9102 600mg Take 2 capsules by mouth in the morning and 2 capsules at noon and 2 capsules in the evening. [facility] hydrOXYzine 25 mg tablet 3-0 -10 00:00: 00 Yes [id number] 25mg Take 1 tablet by mouth every 6 (six) hours as needed for Anxiety. [facility] lithium carbonate 300 mg tablet 2022-0 -10 00:00: 00 Yes [id number] 150mg Take 0.5 tablets by mouth in the morning. [facility] QUEtiapine 50 mg tablet 2022-0 -10 00:00: 00 Yes [id number] 50mg Take 1 tablet by mouth at bedtime as needed for Insomnia. [facility] gabapentin 300 mg capsule 2022-0 -10 00:00: 00 Yes [id number] 9102 600mg Take 2 capsules by mouth in the morning and 2 capsules at noon and 2 capsules in the evening. [facility] hydrOXYzine 25 mg tablet 2022-0 -10 00:00: 00 Yes [id number] 25mg Take 1 tablet by mouth every 6 (six) hours as needed for Anxiety. [facility] lithium carbonate 300 mg tablet 2022-0 -10 00:00: 00 Yes [id number] 150mg Take 0.5 tablets by mouth in the morning. [facility] QUEtiapine 50 mg tablet 2022-0 04-25 00:00: 00 Yes [id number] 50mg Take 1 tablet by mouth at bedtime as needed for Insomnia. [facility] gabapentin 300 mg capsule 2022-0 04-25 00:00: 00 Yes [id number] 600mg Take 2 capsules by mouth in the morning and 2 capsules at noon and 2 capsules in the evening. [facility] hydrOXYzine 25 mg tablet 2022-0 -10 00:00: 00 Yes [id number] 25mg Take 1 tablet by mouth every 6 (six) hours as needed for Anxiety. [facility] lithium carbonate 300 mg tablet 2022-0 -10 00:00: 00 Yes [id number] 150mg Take 0.5 tablets by mouth in the morning. [facility] QUEtiapine 50 mg tablet 2022-0 -10 00:00: 00 Yes [id number] 50mg Take 1 tablet by mouth at bedtime as needed for Insomnia. [facility] gabapentin 300 mg capsule 3-0 -10 00:00: 00 Yes [id number] 9102 600mg Take 2 capsules by mouth in the morning and 2 capsules at noon and 2 capsules in the evening. [facility] hydrOXYzine 25 mg tablet 2022-0 -10 00:00: 00 Yes [id number] 25mg Take 1 tablet by mouth every 6 (six) hours as needed for Anxiety. [facility] lithium carbonate 300 mg tablet 2022-0 -10 00:00: 00 Yes [id number] 150mg Take 0.5 tablets by mouth in the morning. [facility] QUEtiapine 50 mg tablet 2022-0 -10 00:00: 00 Yes [id number] 50mg Take 1 tablet by mouth at bedtime as needed for Insomnia. [facility] gabapentin 300 mg capsule 2022-0 - 00:00: 00 Yes [id number] 9102 600mg Take 2 capsules by mouth in the morning and 2 capsules at noon and 2 capsules in the evening. [facility] hydrOXYzine 25 mg tablet 2022-0 -10 00:00: 00 Yes [id number] 25mg Take 1 tablet by mouth every 6 (six) hours as needed for Anxiety. [facility] lithium carbonate 300 mg tablet 2022-0 04-25 00:00: 00 Yes [id number] 150mg Take 0.5 tablets by mouth in the morning. [facility] QUEtiapine 50 mg tablet 2022-0 04-25 00:00: 00 Yes [id number] 50mg Take 1 tablet by mouth at bedtime as needed for Insomnia. [facility] gabapentin 300 mg capsule 2022-0 -10 00:00: 00 Yes [id number] 9102 600mg Take 2 capsules by mouth in the morning and 2 capsules at noon and 2 capsules in the evening. [facility] hydrOXYzine 25 mg tablet 2022-0 -10 00:00: 00 Yes [id number] 25mg Take 1 tablet by mouth every 6 (six) hours as needed for Anxiety. [facility] lithium carbonate 300 mg tablet 2022-0 -10 00:00: 00 Yes [id number] 150mg Take 0.5 tablets by mouth in the morning. [facility] QUEtiapine 50 mg tablet 3-0 -10 00:00: 00 Yes [id number] 50mg Take 1 tablet by mouth at bedtime as needed for Insomnia. [facility] gabapentin 300 mg capsule 2022-0 -10 00:00: 00 Yes [id number] 9102 600mg Take 2 capsules by mouth in the morning and 2 capsules at noon and 2 capsules in the evening. [facility] hydrOXYzine 25 mg tablet 2022-0 -10 00:00: 00 Yes [id number] 25mg Take 1 tablet by mouth every 6 (six) hours as needed for Anxiety. [facility] lithium carbonate 300 mg tablet 2022-0 -10 00:00: 00 Yes [id number] 150mg Take 0.5 tablets by mouth in the morning. [facility] QUEtiapine 50 mg tablet 2022-0 -10 00:00: 00 Yes [id number] 50mg Take 1 tablet by mouth at bedtime as needed for Insomnia. [facility] gabapentin 300 mg capsule 2022-0 -10 00:00: 00 Yes [id number] 9102 600mg Take 2 capsules by mouth in the morning and 2 capsules at noon and 2 capsules in the evening. [facility] hydrOXYzine 25 mg tablet 2022-0 -10 00:00: 00 Yes [id number] 25mg Take 1 tablet by mouth every 6 (six) hours as needed for Anxiety. [facility] lithium carbonate 300 mg tablet 2022-0 -10 00:00: 00 Yes [id number] 150mg Take 0.5 tablets by mouth in the morning. [facility] QUEtiapine 50 mg tablet 2022-0 -10 00:00: 00 Yes [id number] 50mg Take 1 tablet by mouth at bedtime as needed for Insomnia. [facility] gabapentin 300 mg capsule 3-0 -10 00:00: 00 Yes [id number] 9102 600mg Take 2 capsules by mouth in the morning and 2 capsules at noon and 2 capsules in the evening. [facility] hydrOXYzine 25 mg tablet 3-0 -10 00:00: 00 Yes [id number] 25mg Take 1 tablet by mouth every 6 (six) hours as needed for Anxiety. [facility] lithium carbonate 300 mg tablet 2022-0 -10 00:00: 00 Yes [id number] 150mg Take 0.5 tablets by mouth in the morning. [facility] QUEtiapine 50 mg tablet 2022-0 -10 00:00: 00 Yes [id number] 50mg Take 1 tablet by mouth at bedtime as needed for Insomnia. [facility] gabapentin 300 mg capsule 2022-0 -10 00:00: 00 Yes [id number] 9102 600mg Take 2 capsules by mouth in the morning and 2 capsules at noon and 2 capsules in the evening. [facility] hydrOXYzine 25 mg tablet 2022-0 -10 00:00: 00 Yes [id number] 25mg Take 1 tablet by mouth every 6 (six) hours as needed for Anxiety. [facility] lithium carbonate 300 mg tablet 2022-0 -10 00:00: 00 Yes [id number] 150mg Take 0.5 tablets by mouth in the morning. [facility] QUEtiapine 50 mg tablet 2022-0 - 00:00: 00 Yes [id number] 50mg Take 1 tablet by mouth at bedtime as needed for Insomnia. [facility] gabapentin 300 mg capsule 2022-0 - 00:00: 00 Yes [id number] 9102 600mg Take 2 capsules by mouth in the morning and 2 capsules at noon and 2 capsules in the evening. [facility] hydrOXYzine 25 mg tablet 2022-0 -10 00:00: 00 Yes [id number] 25mg Take 1 tablet by mouth every 6 (six) hours as needed for Anxiety. [facility] lithium carbonate 300 mg tablet 2022-0 -10 00:00: 00 Yes [id number] 150mg Take 0.5 tablets by mouth in the morning. [facility] QUEtiapine 50 mg tablet 2022-0 -10 00:00: 00 Yes [id number] 50mg Take 1 tablet by mouth at bedtime as needed for Insomnia. [facility] gabapentin 300 mg capsule 3-0 -10 00:00: 00 Yes [id number] 9102 600mg Take 2 capsules by mouth in the morning and 2 capsules at noon and 2 capsules in the evening. [facility] hydrOXYzine 25 mg tablet 2022-0 -10 00:00: 00 Yes [id number] 25mg Take 1 tablet by mouth every 6 (six) hours as needed for Anxiety. [facility] lithium carbonate 300 mg tablet 2022-0 -10 00:00: 00 Yes [id number] 150mg Take 0.5 tablets by mouth in the morning. [facility] QUEtiapine 50 mg tablet 2022-0 -10 00:00: 00 Yes [id number] 50mg Take 1 tablet by mouth at bedtime as needed for Insomnia. [facility] gabapentin 300 mg capsule 2022-0 - 00:00: 00 Yes [id number] [id number] 600mg Take 2 capsules by mouth in the morning and 2 capsules at noon and 2 capsules in the evening. [facility] hydrOXYzine 25 mg tablet 2022-0 -10 00:00: 00 Yes [id number] 25mg Take 1 tablet by mouth every 6 (six) hours as needed for Anxiety. [facility] lithium carbonate 300 mg tablet 2022-0 04-25 00:00: 00 Yes [id number] 150mg Take 0.5 tablets by mouth in the morning. [facility] QUEtiapine 50 mg tablet 2022-0 04-25 00:00: 00 Yes [id number] 50mg Take 1 tablet by mouth at bedtime as needed for Insomnia. [facility] gabapentin 300 mg capsule 2022-0 04-25 00:00: 00 Yes [id number] 9102 600mg Take 2 capsules by mouth in the morning and 2 capsules at noon and 2 capsules in the evening. [facility] hydrOXYzine 25 mg tablet 2022-0 -10 00:00: 00 Yes [id number] 25mg Take 1 tablet by mouth every 6 (six) hours as needed for Anxiety. [facility] lithium carbonate 300 mg tablet 2022-0 -10 00:00: 00 Yes [id number] 150mg Take 0.5 tablets by mouth in the morning. [facility] QUEtiapine 50 mg tablet 2022-0 -10 00:00: 00 Yes [id number] 50mg Take 1 tablet by mouth at bedtime as needed for Insomnia. [facility] gabapentin 300 mg capsule 3-0 1-10 00:00: 00 Yes [id number] [id number] 600mg Take 2 capsules by mouth in the morning and 2 capsules at noon and 2 capsules in the evening. [facility] hydrOXYzine 25 mg tablet 3-0 1-10 00:00: 00 Yes [id number] 25mg Take 1 tablet by mouth every 6 (six) hours as needed for Anxiety. [facility] lithium carbonate 300 mg tablet 3-0 1-10 00:00: 00 Yes [id number] 150mg Take 0.5 tablets by mouth in the morning. [facility] QUEtiapine 50 mg tablet 2022-0 1-10 00:00: 00 Yes [id number] 50mg Take 1 tablet by mouth at bedtime as needed for Insomnia. [facility] gabapentin 300 mg capsule 3-0 -10 00:00: 00 Yes [id number] 9102 600mg Take 2 capsules by mouth in the morning and 2 capsules at noon and 2 capsules in the evening. [facility] hydrOXYzine 25 mg tablet 3-0 -10 00:00: 00 Yes [id number] 25mg Take 1 tablet by mouth every 6 (six) hours as needed for Anxiety. [facility] lithium carbonate 300 mg tablet 3-0 -10 00:00: 00 Yes [id number] 150mg Take 0.5 tablets by mouth in the morning. [facility] QUEtiapine 50 mg tablet 3-0 1-10 00:00: 00 Yes [id number] 50mg Take 1 tablet by mouth at bedtime as needed for Insomnia. [facility] gabapentin 300 mg capsule 3-0 1-10 00:00: 00 Yes [id number] 9102 600mg Take 2 capsules by mouth in the morning and 2 capsules at noon and 2 capsules in the evening. [facility] hydrOXYzine 25 mg tablet 3-0 1-10 00:00: 00 Yes [id number] 25mg Take 1 tablet by mouth every 6 (six) hours as needed for Anxiety. [facility] lithium carbonate 300 mg tablet 2023-0 1-10 00:00: 00 Yes [id number] 150mg Take 0.5 tablets by mouth in the morning. [facility] QUEtiapine 50 mg tablet 2022-0 -10 00:00: 00 Yes [id number] 50mg Take 1 tablet by mouth at bedtime as needed for Insomnia. [facility] gabapentin 300 mg capsule 2022-0 -10 00:00: 00 Yes [id number] [id number] 600mg Take 2 capsules by mouth in the morning and 2 capsules at noon and 2 capsules in the evening. [facility] hydrOXYzine 25 mg tablet 2022-0 -10 00:00: 00 Yes [id number] 25mg Take 1 tablet by mouth every 6 (six) hours as needed for Anxiety. [facility] lithium carbonate 300 mg tablet 2022-0 - 00:00: 00 Yes [id number] 150mg Take 0.5 tablets by mouth in the morning. [facility] QUEtiapine 50 mg tablet 2022-0 04-25 00:00: 00 Yes [id number] 50mg Take 1 tablet by mouth at bedtime as needed for Insomnia. [facility] gabapentin 300 mg capsule 2022-0 04-25 00:00: 00 Yes [id number] 9102 600mg Take 2 capsules by mouth in the morning and 2 capsules at noon and 2 capsules in the evening. [facility] hydrOXYzine 25 mg tablet 2022-0 -10 00:00: 00 Yes [id number] 25mg Take 1 tablet by mouth every 6 (six) hours as needed for Anxiety. [facility] lithium carbonate 300 mg tablet 2022-0 04-25 00:00: 00 Yes [id number] 150mg Take 0.5 tablets by mouth in the morning. [facility] QUEtiapine 50 mg tablet 2022-0 -10 00:00: 00 Yes [id number] 50mg Take 1 tablet by mouth at bedtime as needed for Insomnia. [facility] gabapentin 300 mg capsule 2022-0 -10 00:00: 00 Yes [id number] 9102 600mg Take 2 capsules by mouth in the morning and 2 capsules at noon and 2 capsules in the evening. [facility] hydrOXYzine 25 mg tablet 2022-0 -10 00:00: 00 Yes [id number] 25mg Take 1 tablet by mouth every 6 (six) hours as needed for Anxiety. [facility] lithium carbonate 300 mg tablet 0 -10 00:00: 00 Yes [id number] 150mg Take 0.5 tablets by mouth in the morning. [facility] QUEtiapine 50 mg tablet 2022-0 -10 00:00: 00 Yes [id number] 50mg Take 1 tablet by mouth at bedtime as needed for Insomnia. [facility] gabapentin 300 mg capsule 0 - 00:00: 00 Yes [id number] [id number] 600mg Take 2 capsules by mouth in the morning and 2 capsules at noon and 2 capsules in the evening. [facility] hydrOXYzine 25 mg tablet 2022-0 - 00:00: 00 Yes [id number] 25mg Take 1 tablet by mouth every 6 (six) hours as needed for Anxiety. [facility] lithium carbonate 300 mg tablet 0 04-25 00:00: 00 Yes [id number] 150mg Take 0.5 tablets by mouth in the morning. [facility] QUEtiapine 50 mg tablet 0 04-25 00:00: 00 Yes [id number] 50mg Take 1 tablet by mouth at bedtime as needed for Insomnia. [facility] gabapentin 300 mg capsule 2022-0 - 00:00: 00 Yes [id number] 9102 600mg Take 2 capsules by mouth in the morning and 2 capsules at noon and 2 capsules in the evening. [facility] hydrOXYzine 25 mg tablet 2022-0 -10 00:00: 00 Yes [id number] 25mg Take 1 tablet by mouth every 6 (six) hours as needed for Anxiety. [facility] lithium carbonate 300 mg tablet 2022-0 -10 00:00: 00 Yes [id number] 150mg Take 0.5 tablets by mouth in the morning. [facility] QUEtiapine 50 mg tablet 2022-0 -10 00:00: 00 Yes [id number] 50mg Take 1 tablet by mouth at bedtime as needed for Insomnia. [facility] gabapentin 300 mg capsule 04-25 00:00: 00 Yes [id number] 9102 600mg Take 2 capsules by mouth in the morning and 2 capsules at noon and 2 capsules in the evening. [facility] hydrOXYzine 25 mg tablet 04-25 00:00: 00 Yes [id number] 25mg Take 1 tablet by mouth every 6 (six) hours as needed for Anxiety. [facility] methocarbam oL 750 mg tablet 04-25 00:00: 00 05-26 05:59 :00 No [id number] 9102 750mg Take 1 tablet by mouth 4 (four) times daily for 30 days. [facility] methocarbam oL 750 mg tablet 04-25 00:00: 00 05-26 05:59 :00 No [id number] 9102 750mg Take 1 tablet by mouth 4 (four) times daily for 30 days. [facility] methocarbam oL 750 mg tablet 04-25 00:00: 00 05-26 05:59 :00 No [id number] 9102 750mg Take 1 tablet by mouth 4 (four) times daily for 30 days. [facility] methocarbam oL 750 mg tablet 04-25 00:00: 00 05-26 05:59 :00 No [id number] 9102 750mg Take 1 tablet by mouth 4 (four) times daily for 30 days. [facility] methocarbam oL 750 mg tablet 04-25 00:00: 00 05-26 05:59 :00 No [id number] [id number] 750mg Take 1 tablet by mouth 4 (four) times daily for 30 days. [facility] methocarbam oL 750 mg tablet 04-25 00:00: 00 05-26 05:59 :00 No [id number] 9102 750mg Take 1 tablet by mouth 4 (four) times daily for 30 days. [facility] methocarbam oL 750 mg tablet 04-25 00:00: 00 05-26 05:59 :00 No [id number] [id number] 750mg Take 1 tablet by mouth 4 (four) times daily for 30 days. [facility] methocarbam oL 750 mg tablet 04-25 00:00: 00 05-26 05:59 :00 No [id number] 9102 750mg Take 1 tablet by mouth 4 (four) times daily for 30 days. [facility] MONTELUKAST SODIUM 10 MG TABS 2021-04- 00:00: 00 No 10 BUSPIRONE HCL 15 MG TABS 2021-04 00:00: 00 No FLUOXETINE HCL 20 MG CAPS 2021-04- 00:00: 00 No Dose Unknown 2021-04 00:00: 00 No Dose Unknown 2021-04 00:00: 00 No Dose Unknown 2021-04 00:00: 00 No Dose Unknown 2021-04 00:00: 00 No Dose Unknown 2021-04 00:00: 00 No HYDROXYZINE PAMOATE 50 MG CAPS 2021-04 2 00:00: 00 No BENZONATATE 100 MG CAPS 2021-04- 00:00: 00 No TAKE 1 TABLET BY MOUTH EVERY 8 HOURS NEEDED 2021-04- 00:00: 00 No Dose Unknown 2021-04 00:00: 00 No TAKE 1/2 TABLET BY MOUTH EVERY DAY 2021-04 2- 00:00: 00 No Dose Unknown 2021-04 2- 00:00: 00 No Dose Unknown 2021-04 2-14 00:00: 00 No Dose Unknown 2021-0414 00:00: 00 No TAKE 1 TABLET BY MOUTH NIGHTLY 2021-04 2- 00:00: 00 No 750 Dose Unknown 2021-04 2-14 00:00: 00 No Dose Unknown 2021-04-14 00:00: 00 No FLUOXETINE HYDROCHLORI DE 40 MG CAPS 2021-04 2-14 00:00: 00 No 40 DIAZEPAM 5 MG TABS 2021-04 2-14 00:00: 00 No 750 CELECOXIB 400 MG CAPS 2021-04 2-14 00:00: 00 No 750 Dose Unknown 2021-04 00:00: 00 No Dose Unknown 2021-04 00:00: 00 No GABAPENTIN 800 MG TABS 2021-04 00:00: 00 No Dose Unknown 2021-04 00:00: 00 No Dose Unknown 2021-04 00:00: 00 No Dose Unknown 2021-04 00:00: 00 No ACETAMINOPH EN/CODEINE 300-30 MG TABS 2021-04 00:00: 00 No Dose Unknown 2021-04 00:00: 00 No HYDROCODONE BITARTRATE/ ACETAMINOPH E N 5-325 MG TABS 2021-04 00:00: 00 No TAKE 1 CAPSULE BY MOUTH EVERY DAY 2021-04 00:00: 00 No SYMBICORT 160-4.5 MCG/ACT AERO 2021-04 00:00: 00 No QUETIAPINE FUMARATE 50 MG TABS 2021-04 00:00: 00 No DOCUSATE SODIUM 100 MG CAPS 2021-04 00:00: 00 No TAKE 1 TABLET BY MOUTH EVERY DAY IN THE MORNING 2021-04 00:00: 00 No TAKE 3 TABLETS DAILY FOR 5 DAYS 2 TABLETS DAILY FOR 5 DAYS,THEN 1 TABLET DAILY FOR 5 DAYS. 2021-04 00:00: 00 No TAKE 1 TABLET BY MOUTH TWICE A DAY TAKE 30 MINUTES BEFORE BREAKFAST AND DINNER 2021-04 00:00: 00 No ADDERALL XR 20 MG CP24 2021-04 00:00: 00 No Dose Unknown 2021-04 00:00: 00 No INHALE 2 PUFFS TWICE A DAY 2021-04 00:00: 00 No BROMPHEN/PS EUDOEPHEDRI NE HCL/DEXTRO METHORPHAN HBR 30-2-10 MG/5ML SYRP 2021-04 00:00: 00 No INHALE 2 PUFFS BY MOUTH EVERY 4 HOURS NEEDED FOR SHORTNESS OF BREATH/WHEE ZING 2021-04 00:00: 00 No VYVANSE 30 MG CAPS 2021-04 00:00: 00 No NALTREXONE HCL 50 MG TABS 2021-04 00:00: 00 No TAKE 1 TABLET BY MOUTH EVERY 12 HOURS 2021-04 00:00: 00 No TAKE 1 CAPSULE BY MOUTH EVERY 8 HOURS NEEDED 2021-04 00:00: 00 No DISSOLVE 1 CAPFUL IN 4-8 OZ OF LIQUID AND DRINK BY MOUTH EVERY DAY (HOLD FOR LOOSE STOOL) 2021-04 00:00: 00 No CYCLOBENZAP RINE HYDROCHLORI DE 5 MG TABS 2021-04 00:00: 00 No 5 Dose Unknown 2021-04 00:00: 00 No 1 TAKE 1 CAPSULE BY MOUTH TWICE A DAY 2021-04 00:00: 00 No TAKE 1 TABLET BY MOUTH 3 TIMES A DAY WITH FOOD 2021-04 00:00: 00 No Dose Unknown 2021-04 00:00: 00 No SPRAY 2 SPRAYS INTO EACH NOSTRIL EVERY DAY 2021-04 00:00: 00 No TAKE 1 TABLET BY MOUTH TWICE DAILY 2021-04 00:00: 00 No TAKE 1 TABLET BY MOUTH EVERY DAY IN THE MORNING 2021-04 00:00: 00 No TAKE 1 TABLET BY MOUTH THREE TIMES A DAY 2021-04 00:00: 00 No KETOROLAC TROMETHAMIN E 10 MG TABS 2021-04 00:00: 00 No 10 INHALE THE CONTENTS OF 1 UNIT DOSE BY NEBULIZATIO N ROUTE EVERY 4-6 HOURS NEEDED 2021-04 00:00: 00 No 25 DULOXETINE HCL 30 MG CPEP 2021-04 00:00: 00 No 30 TAKE 1 CAPSULE BY MOUTH EVERY DAY 2021-04 00:00: 00 No 40 TAKE 1 TABLET BY MOUTH EVERY 4 HOURS FOR 10 DAYS 2021-04 00:00: 00 No 25 BENZTROPINE MESYLATE 1 MG TABS 2021-04 00:00: 00 No 1 TAKE 1 TABLET BY MOUTH 45 MINUTES BEFORE PROCEDURE 2021-04 00:00: 00 No TAKE 1 CAPSULE BY MOUTH TWICE DAILY 2021-04 00:00: 00 No 40 TAKE 5 ML BY MOUTH EVERY 4 TO 6 HOURS NEEDED 2021-04 00:00: 00 No TAKE 1 TABLET BY MOUTH THREE TIMES DAILY 2021-04 00:00: 00 No TAKE 1 TABLET EVERY 4 HOURS NEEDED. 2021-04 00:00: 00 No TAKE 5 ML EVERY 4 TO 6 HOURS NEEDED. 2021-04 00:00: 00 No INHALE 1 TO 2 PUFFS EVERY 4 TO 6 HOURS NEEDED. 2021-04 00:00: 00 No USE 2 SPRAYS IN EACH NOSTRIL ONCE DAILY 2021-04 00:00: 00 No TAKE 1 CAPSULE 3 TIMES DAILY NEEDED. 2021-04 00:00: 00 No TAKE 1 CAPSULE BY MOUTH ONCE DAILY 2021-04 00:00: 00 No GABAPENTIN 300 MG CAPS 2021-04 00:00: 00 No LITHIUM CARBONATE 300 MG CAPS 2021-04 00:00: 00 No QUETIAPINE FUMARATE 100 MG TABS 2021-04 00:00: 00 No NAPROXEN 500 MG TABS 2021-04 00:00: 00 No 500 FLUTICASONE PROPIONATE 50 MCG/ACT SUSP 2021-04 00:00: 00 No CYCLOBENZAP RINE HYDROCHLORI DE 10 MG TABS 2021-04 00:00: 00 No METHOCARBAM OL 750 MG TABS 2021-04 00:00: 00 No TAKE 1 TABLET BY MOUTH FOUR TIMES DAILY 2021-04 00:00: 00 No 50 Dose Unknown 2021-04 00:00: 00 No Dose Unknown 2021-04 00:00: 00 No PREDNISONE 20 MG TABS 2021-04 00:00: 00 No 10 TAKE 1 TABLET BY MOUTH EVERY DAY 2021-04 00:00: 00 No LITHIUM CARBONATE 300 MG TABS 2021-04 00:00: 00 No PROMETHAZIN E HYDROCHLORI DE 25 MG TABS 2021-04 00:00: 00 No TAKE 1 TAB DAILY AT 6 PM FOR MOOD 2021-04 00:00: 00 No FLUOXETINE HYDROCHLORI DE 60 MG TABS 2021-04 00:00: 00 No Dose Unknown 2021-04 00:00: 00 No AMPHETAMINE /DEXTROAMPH ETAMINE 30 MG TABS 2021-04 2 00:00: 00 No 30 Dose Unknown 2021-04 2 00:00: 00 No Dose Unknown 2021-04 00:00: 00 No AMPHETAMINE /DEXTROAMPH ETAMINE 30 MG TABS 2021-04 2 00:00: 00 No 30 TAKE 1 TABLET BY MOUTH THREE TIMES A DAY 2021-04 00:00: 00 No ETODOLAC 400 MG TABS 2021-04 00:00: 00 No ETODOLAC 400 MG TABS 2021-04 00:00: 00 No Dose Unknown 2021-04 00:00: 00 No Dose Unknown 2021-04 00:00: 00 No 30 LEVOTHYROXI NE SODIUM 150 MCG TABS 2021-04 00:00: 00 No LEVOTHYROXI NE SODIUM 150 MCG TABS 2021-04 00:00: 00 No TAKE 1 CAPSULE TWICE DAILY. 2021-04 00:00: 00 No 100 TAKE 1 CAPSULE TWICE DAILY. 2021-04 00:00: 00 No 1unit amphetamine -dextroamph etamine 30 mg 24 hr capsule 2021-04 00:00: 00 Yes [id number] 30mg Take 30 mg by mouth in the morning and 30 mg in the evening. [facility] amphetamine -dextroamph etamine 30 mg 24 hr capsule 2021-04 00:00: 00 Yes [id number] 30mg Take 30 mg by mouth in the morning and 30 mg in the evening. [facility] amphetamine -dextroamph etamine 30 mg 24 hr capsule 2021-04 020 00:00: 00 Yes [id number] 30mg Take 30 mg by mouth in the morning and 30 mg in the evening. [facility] amphetamine -dextroamph etamine 30 mg 24 hr capsule 2021-04 020 00:00: 00 Yes [id number] 30mg Take 30 mg by mouth in the morning and 30 mg in the evening. [facility] amphetamine -dextroamph etamine 30 mg 24 hr capsule 2021-04 0-20 00:00: 00 Yes [id number] 30mg Take 30 mg by mouth in the morning and 30 mg in the evening. [facility] amphetamine -dextroamph etamine 30 mg 24 hr capsule 2021 0-20 00:00: 00 Yes [id number] 30mg Take 30 mg by mouth in the morning and 30 mg in the evening. [facility] amphetamine -dextroamph etamine 30 mg 24 hr capsule [facility] 0-20 00:00: 00 Yes [id number] 30mg Take 30 mg by mouth in the morning and 30 mg in the evening. [facility] amphetamine -dextroamph etamine 30 mg 24 hr capsule 2021 0-20 00:00: 00 Yes [id number] 30mg Take 30 mg by mouth in the morning and 30 mg in the evening. [facility] amphetamine -dextroamph etamine 30 mg 24 hr capsule 2021 0-20 00:00: 00 Yes [id number] 30mg Take 30 mg by mouth in the morning and 30 mg in the evening. [facility] amphetamine -dextroamph etamine 30 mg 24 hr capsule 2021 0-20 00:00: 00 Yes [id number] 30mg Take 30 mg by mouth in the morning and 30 mg in the evening. [facility] amphetamine -dextroamph etamine 30 mg 24 hr capsule 2021 0-20 00:00: 00 Yes [id number] 30mg Take 30 mg by mouth in the morning and 30 mg in the evening. [facility] amphetamine -dextroamph etamine 30 mg 24 hr capsule 2021 0-20 00:00: 00 Yes [id number] 30mg Take 30 mg by mouth in the morning and 30 mg in the evening. [facility] amphetamine -dextroamph etamine 30 mg 24 hr capsule 2021 0-20 00:00: 00 Yes [id number] 30mg Take 30 mg by mouth in the morning and 30 mg in the evening. [facility] amphetamine -dextroamph etamine 30 mg 24 hr capsule [facility] 0-20 00:00: 00 Yes [id number] 30mg Take 30 mg by mouth in the morning and 30 mg in the evening. [facility] amphetamine -dextroamph etamine 30 mg 24 hr capsule 2021 0-20 00:00: 00 Yes [id number] 30mg Take 30 mg by mouth in the morning and 30 mg in the evening. [facility] amphetamine -dextroamph etamine 30 mg 24 hr capsule 2021 0-20 00:00: 00 Yes [id number] 30mg Take 30 mg by mouth in the morning and 30 mg in the evening. [facility] amphetamine -dextroamph etamine 30 mg 24 hr capsule 2021 0-20 00:00: 00 Yes [id number] 30mg Take 30 mg by mouth in the morning and 30 mg in the evening. [facility] amphetamine -dextroamph etamine 30 mg 24 hr capsule 0-20 00:00: 00 Yes [id number] 30mg Take 30 mg by mouth in the morning and 30 mg in the evening. [facility] amphetamine -dextroamph etamine 30 mg 24 hr capsule 2021 0-20 00:00: 00 Yes [id number] 30mg Take 30 mg by mouth in the morning and 30 mg in the evening. [facility] amphetamine -dextroamph etamine 30 mg 24 hr capsule 2021 0-20 00:00: 00 Yes [id number] 30mg Take 30 mg by mouth in the morning and 30 mg in the evening. [facility] amphetamine -dextroamph etamine 30 mg 24 hr capsule 2021 0-20 00:00: 00 Yes [id number] 30mg Take 30 mg by mouth in the morning and 30 mg in the evening. [facility] amphetamine -dextroamph etamine 30 mg 24 hr capsule 2021 0-20 00:00: 00 Yes [id number] 30mg Take 30 mg by mouth in the morning and 30 mg in the evening. [facility] amphetamine -dextroamph etamine 30 mg 24 hr capsule [facility] 0-20 00:00: 00 Yes [id number] 30mg Take 30 mg by mouth in the morning and 30 mg in the evening. [facility] amphetamine -dextroamph etamine 30 mg 24 hr capsule 0-20 00:00: 00 Yes [id number] 30mg Take 30 mg by mouth in the morning and 30 mg in the evening. [facility] amphetamine -dextroamph etamine 30 mg 24 hr capsule 2021-04 0-20 00:00: 00 Yes [id number] 30mg Take 30 mg by mouth in the morning and 30 mg in the evening. [facility] amphetamine -dextroamph etamine 30 mg 24 hr capsule 2021-04 0-20 00:00: 00 Yes [id number] 30mg Take 30 mg by mouth in the morning and 30 mg in the evening. [facility] amphetamine -dextroamph etamine 30 mg 24 hr capsule 2021-04 0-20 00:00: 00 Yes [id number] 30mg Take 30 mg by mouth in the morning and 30 mg in the evening. [facility] QUETIAPINE FUMARATE 400 MG TABS 2021-04 0-19 00:00: 00 No LISINOPRIL 10 MG TABS 2021-04 0-19 00:00: 00 No TAKE 3 CAPSULES BY MOUTH EVERY DAY 2021-04 0-19 00:00: 00 No 20 Dose Unknown 2021-04 0-19 00:00: 00 No QUETIAPINE FUMARATE 400 MG TABS 2021-04 0-19 00:00: 00 No Dose Unknown 2021-04 0-19 00:00: 00 No TAKE 3 CAPSULES BY MOUTH EVERY DAY 2021-04 0-19 00:00: 00 No 20 Dose Unknown 2021-04 0-19 00:00: 00 No Dose Unknown 2021-04 0-19 00:00: 00 No LISINOPRIL 10 MG TABS 2021-04 0-19 00:00: 00 No TAKE 3 CAPSULES BY MOUTH EVERY DAY 2021-04 0-19 00:00: 00 No Dose Unknown 2021-04 0-19 00:00: 00 No 1 methocarbam oL 750 mg tablet 2021-04 0-19 00:00: 00 04-25 00:00 :00 No [facility] methocarbam oL 750 mg tablet 2021-04 0-19 00:00: 00 04-25 00:00 :00 No [facility] methocarbam oL 750 mg tablet 2021-04 0- 00:00: 00 04-25 00:00 :00 No [facility] methocarbam oL 750 mg tablet 2021-04 0-19 00:00: 00 04-25 00:00 :00 No [facility] methocarbam oL 750 mg tablet 2021-04 0-19 00:00: 00 04-25 00:00 :00 No [facility] methocarbam oL 750 mg tablet 2021-04 0-19 00:00: 00 04-25 00:00 :00 No [facility] BUSPIRONE HYDROCHLORI DE 10 MG TABS 2021-04 0-14 00:00: 00 No BUSPIRONE HYDROCHLORI DE 10 MG TABS 2021-04 0-14 00:00: 00 No BUSPIRONE HYDROCHLORI DE 10 MG TABS 2021-04 0-14 00:00: 00 No BUSPIRONE HYDROCHLORI DE 10 MG TABS 2021-04 0-14 00:00: 00 No SYMBICORT 160-4.5 mcg/actuati on inhaler 2021-04 0-14 00:00: 00 Yes INHALE 2 PUFFS TWICE DAILY. RINSE MOUTH AFTER USE. [facility] SYMBICORT 160-4.5 mcg/actuati on inhaler 2021-04 0-14 00:00: 00 Yes INHALE 2 PUFFS TWICE DAILY. RINSE MOUTH AFTER USE. [facility] SYMBICORT 160-4.5 mcg/actuati on inhaler 2021-04 0-14 00:00: 00 Yes INHALE 2 PUFFS TWICE DAILY. RINSE MOUTH AFTER USE. [facility] SYMBICORT 160-4.5 mcg/actuati on inhaler 2021-04 0-14 00:00: 00 Yes INHALE 2 PUFFS TWICE DAILY. RINSE MOUTH AFTER USE. [facility] SYMBICORT 160-4.5 mcg/actuati on inhaler 2021-04 0-14 00:00: 00 Yes INHALE 2 PUFFS TWICE DAILY. RINSE MOUTH AFTER USE. [facility] SYMBICORT 160-4.5 mcg/actuati on inhaler 2021-04 0-14 00:00: 00 Yes INHALE 2 PUFFS TWICE DAILY. RINSE MOUTH AFTER USE. [facility] SYMBICORT 160-4.5 mcg/actuati on inhaler 2021-04 0-14 00:00: 00 Yes INHALE 2 PUFFS TWICE DAILY. RINSE MOUTH AFTER USE. [facility] SYMBICORT 160-4.5 mcg/actuati on inhaler 2021-04 0-14 00:00: 00 Yes INHALE 2 PUFFS TWICE DAILY. RINSE MOUTH AFTER USE. [facility] SYMBICORT 160-4.5 mcg/actuati on inhaler 2021-04 0-14 00:00: 00 Yes INHALE 2 PUFFS TWICE DAILY. RINSE MOUTH AFTER USE. [facility] SYMBICORT 160-4.5 mcg/actuati on inhaler 2021-04 0-14 00:00: 00 Yes INHALE 2 PUFFS TWICE DAILY. RINSE MOUTH AFTER USE. [facility] SYMBICORT 160-4.5 mcg/actuati on inhaler 2021-04 0-14 00:00: 00 Yes INHALE 2 PUFFS TWICE DAILY. RINSE MOUTH AFTER USE. [facility] SYMBICORT 160-4.5 mcg/actuati on inhaler 2021-04 0-14 00:00: 00 Yes INHALE 2 PUFFS TWICE DAILY. RINSE MOUTH AFTER USE. [facility] SYMBICORT 160-4.5 mcg/actuati on inhaler 2021-04 0-14 00:00: 00 Yes INHALE 2 PUFFS TWICE DAILY. RINSE MOUTH AFTER USE. [facility] SYMBICORT 160-4.5 mcg/actuati on inhaler 2021-04 0-14 00:00: 00 Yes INHALE 2 PUFFS TWICE DAILY. RINSE MOUTH AFTER USE. [facility] SYMBICORT 160-4.5 mcg/actuati on inhaler 2021-04 0-14 00:00: 00 Yes INHALE 2 PUFFS TWICE DAILY. RINSE MOUTH AFTER USE. [facility] SYMBICORT 160-4.5 mcg/actuati on inhaler 2021- 0-14 00:00: 00 Yes INHALE 2 PUFFS TWICE DAILY. RINSE MOUTH AFTER USE. [facility] SYMBICORT 160-4.5 mcg/actuati on inhaler 2021- 0-14 00:00: 00 Yes INHALE 2 PUFFS TWICE DAILY. RINSE MOUTH AFTER USE. [facility] SYMBICORT 160-4.5 mcg/actuati on inhaler 2021-04 0-14 00:00: 00 Yes INHALE 2 PUFFS TWICE DAILY. RINSE MOUTH AFTER USE. [facility] SYMBICORT 160-4.5 mcg/actuati on inhaler 2021-04 0-14 00:00: 00 Yes INHALE 2 PUFFS TWICE DAILY. RINSE MOUTH AFTER USE. [facility] SYMBICORT 160-4.5 mcg/actuati on inhaler 2021-04 0-14 00:00: 00 Yes INHALE 2 PUFFS TWICE DAILY. RINSE MOUTH AFTER USE. [facility] SYMBICORT 160-4.5 mcg/actuati on inhaler 2021- 0-14 00:00: 00 Yes INHALE 2 PUFFS TWICE DAILY. RINSE MOUTH AFTER USE. [facility] SYMBICORT 160-4.5 mcg/actuati on inhaler 2021-04 0-14 00:00: 00 Yes INHALE 2 PUFFS TWICE DAILY. RINSE MOUTH AFTER USE. [facility] SYMBICORT 160-4.5 mcg/actuati on inhaler 2021- 0-14 00:00: 00 Yes INHALE 2 PUFFS TWICE DAILY. RINSE MOUTH AFTER USE. [facility] SYMBICORT 160-4.5 mcg/actuati on inhaler 2021-04 0-14 00:00: 00 Yes INHALE 2 PUFFS TWICE DAILY. RINSE MOUTH AFTER USE. [facility] SYMBICORT 160-4.5 mcg/actuati on inhaler 2021- 0-14 00:00: 00 Yes INHALE 2 PUFFS TWICE DAILY. RINSE MOUTH AFTER USE. [facility] SYMBICORT 160-4.5 mcg/actuati on inhaler 2021- 0-14 00:00: 00 Yes INHALE 2 PUFFS TWICE DAILY. RINSE MOUTH AFTER USE. [facility] SYMBICORT 160-4.5 mcg/actuati on inhaler 2021- 0-14 00:00: 00 Yes INHALE 2 PUFFS TWICE DAILY. RINSE MOUTH AFTER USE. [facility] gabapentin 300 mg capsule 2021- 0-14 00:00: 00 04-25 00:00 :00 No [facility] gabapentin 300 mg capsule 2021- 0-14 00:00: 00 04-25 00:00 :00 No [facility] gabapentin 300 mg capsule 2021-04 0-14 00:00: 00 04-25 00:00 :00 No [facility] gabapentin 300 mg capsule 2021- 0-14 00:00: 00 04-25 00:00 :00 No [facility] gabapentin 300 mg capsule 2021- 0-14 00:00: 00 04-25 00:00 :00 No [facility] gabapentin 300 mg capsule 2021-04 0-14 00:00: 00 04-25 00:00 :00 No [facility] PROAIR HFA 108 (90 Base) MCG/ACT AERS 2021-04 0-04 00:00: 00 No TAKE 1 TABLET ONCE A DAY (DAILY) NEEDED FOR MIGRAINES 2021-1 0-04 00:00: 00 No 50 PROAIR HFA 108 (90 Base) MCG/ACT AERS 2021-1 0-04 00:00: 00 No TAKE 1 TABLET ONCE A DAY (DAILY) NEEDED FOR MIGRAINES 2021-1 0-04 00:00: 00 No 50 PROAIR HFA 108 (90 Base) MCG/ACT AERS 2021-1 0-04 00:00: 00 No TAKE 1 TABLET ONCE A DAY (DAILY) NEEDED FOR MIGRAINES 2021-1 0-04 00:00: 00 No 50 PROAIR HFA 108 (90 Base) MCG/ACT AERS 2021-1 0-04 00:00: 00 No 300 TAKE 1 TABLET ONCE A DAY (DAILY) NEEDED FOR MIGRAINES 2021-1 0-04 00:00: 00 No 25 TRAZODONE HYDROCHLORI DE 50 MG TABS 2021-0 9- 00:00: 00 No 50 TRAZODONE HYDROCHLORI DE 50 MG TABS 2021-0 9- 00:00: 00 No 50 TRAZODONE HYDROCHLORI DE 50 MG TABS 2021-0 9-29 00:00: 00 No 50 TRAZODONE HYDROCHLORI DE 50 MG TABS 0 01-12 00:00: 00 No 50 TAKE 1 CAP ONCE A DAY (DAILY) FOR DEPRESSION 0 01-10 00:00: 00 No 30 TAKE 1 CAP ONCE A DAY (DAILY) FOR DEPRESSION 0 01-10 00:00: 00 No 30 TAKE 1 CAP ONCE A DAY (DAILY) FOR DEPRESSION 0 01-10 00:00: 00 No 30 TAKE 1 CAP ONCE A DAY (DAILY) FOR DEPRESSION 2021-0 01-10 00:00: 00 No 30 TAKE 1 CAP ONCE A DAY (DAILY) FOR DEPRESSION 0 01-10 00:00: 00 No 30 Dose Unknown 0 01-09 00:00: 00 No Dose Unknown 0 01-09 00:00: 00 No Dose Unknown 0 01-09 00:00: 00 No Dose Unknown 0 01-09 00:00: 00 No Dose Unknown 0 01-09 00:00: 00 No OMEPRAZOLE 40 MG CPDR 0 01-07 00:00: 00 No 40 Dose Unknown 2021-0 01-07 00:00: 00 No Dose Unknown 0 01-07 00:00: 00 No Dose Unknown 0 01-07 00:00: 00 No OMEPRAZOLE 40 MG CPDR 2021-0 01-07 00:00: 00 No OMEPRAZOLE 40 MG CPDR 2021-0 01-07 00:00: 00 No 40 SUMATRIPTAN SUCCINATE 50 MG TABS 2021-0 01-05 00:00: 00 No 50 SUMATRIPTAN SUCCINATE 50 MG TABS 2021-0 01-05 00:00: 00 No SUMATRIPTAN SUCCINATE 50 MG TABS 2021-0 01-05 00:00: 00 No SUMATRIPTAN SUCCINATE 50 MG TABS 2021-0 01-05 00:00: 00 No SUMATRIPTAN SUCCINATE 50 MG TABS 2021-0 01-05 00:00: 00 No SUMATRIPTAN SUCCINATE 50 MG TABS 2021-0 01-05 00:00: 00 No 50 TAKE 0.5/HALF TABLETS BY MOUTH NIGHTLY 2021-0 01-03 00:00: 00 No 400 QUETIAPINE FUMARATE ER 400 MG 24 0 9-20 00:00: 00 No TAKE 1 CAPSULE BY MOUTH EVERY DAY 2021-0 -20 00:00: 00 No 40 TAKE 0.5/HALF TABLETS BY MOUTH NIGHTLY 0 -20 00:00: 00 No 400 QUETIAPINE FUMARATE ER 400 MG TB24 0 9-20 00:00: 00 No TAKE 1 CAPSULE BY MOUTH EVERY DAY 0 -20 00:00: 00 No 40 TAKE 0.5/HALF TABLETS BY MOUTH NIGHTLY 0 -20 00:00: 00 No 400 QUETIAPINE FUMARATE ER 400 MG 24 0 -20 00:00: 00 No TAKE 1 CAPSULE BY MOUTH EVERY DAY 0 -20 00:00: 00 No 40 TAKE 0.5/HALF TABLETS BY MOUTH NIGHTLY 0 -20 00:00: 00 No 400 QUETIAPINE FUMARATE ER 400 MG [facility] [place] 2021-0 -20 00:00: 00 No TAKE 1 CAPSULE BY MOUTH EVERY DAY 0 -20 00:00: 00 No 40 TAKE 1/2 TABLET BY MOUTH NIGHTLY 0 20 00:00: 00 No QUETIAPINE FUMARATE ER 400 MG [facility] [place] 0 -20 00:00: 00 No TAKE 1 CAPSULE BY MOUTH EVERY DAY 0 20 00:00: 00 No 40 TAKE 0.5/HALF TABLETS BY MOUTH NIGHTLY 0 20 00:00: 00 No 400 QUETIAPINE FUMARATE ER 400 MG [facility] [place] 0 -20 00:00: 00 No TAKE 1 CAPSULE BY MOUTH EVERY DAY 0 20 00:00: 00 No 40 PANTOPRAZOL E SODIUM 40 MG [facility] 0 8- 00:00: 00 No 40 AMLODIPINE BESYLATE 5 MG TABS 0 8- 00:00: 00 No INHALE 2 PUFFS TWICE A DAY 0 8- 00:00: 00 No PANTOPRAZOL E SODIUM 40 MG [facility] 0 8- 00:00: 00 No 40 AMLODIPINE BESYLATE 5 MG TABS 0 8- 00:00: 00 No INHALE 2 PUFFS TWICE A DAY 0 8- 00:00: 00 No PANTOPRAZOL E SODIUM 40 MG TBEC 2-0 8 00:00: 00 No 40 AMLODIPINE BESYLATE 5 MG TABS 2021-0 12-14 00:00: 00 No INHALE 2 PUFFS TWICE A DAY 2-0 12-14 00:00: 00 No PANTOPRAZOL E SODIUM 40 MG TBEC 2021-0 8 00:00: 00 No 40 AMLODIPINE BESYLATE 5 MG TABS 2021-0 12-14 00:00: 00 No INHALE 2 PUFFS BY MOUTH TWICE A DAY 2-0 12-14 00:00: 00 No Dose Unknown 2021-0 12-14 00:00: 00 No AMLODIPINE BESYLATE 5 MG TABS 2021-0 12-14 00:00: 00 No INHALE 2 PUFFS BY MOUTH TWICE A DAY (RINSE MOUTH AFTER USE) 2-0 12-14 00:00: 00 No PANTOPRAZOL E SODIUM 40 MG TBEC 2021-0 12-14 00:00: 00 No 40 AMLODIPINE BESYLATE 5 MG TABS 2021-0 12-14 00:00: 00 No INHALE 2 PUFFS TWICE A DAY 2021-0 12-14 00:00: 00 No TAKE 1 TABLET BY MOUTH TWICE A DAY NEEDED FOR BACK PAIN 2-0 12-08 00:00: 00 No 400 TAKE 1 TABLET BY MOUTH TWICE A DAY NEEDED FOR BACK PAIN 2-0 12-08 00:00: 00 No 400 TAKE 1 TABLET BY MOUTH TWICE A DAY NEEDED FOR BACK PAIN 2-0 12-08 00:00: 00 No 400 TAKE 1 TABLET BY MOUTH TWICE A DAY NEEDED FOR BACK PAIN 2-0 12-08 00:00: 00 No 400 TAKE 1 TABLET BY MOUTH TWICE A DAY NEEDED FOR BACK PAIN 2-0 12-08 00:00: 00 No 400 TAKE 1 TABLET BY MOUTH TWICE A DAY NEEDED FOR BACK PAIN 2-0 12-08 00:00: 00 No 400 LITHIUM CARBONATE 300 MG TABS 2-0 8- 00:00: 00 No 300 LITHIUM CARBONATE 300 MG TABS 2-0 8- 00:00: 00 No 300 LITHIUM CARBONATE 300 MG TABS 2-0 8- 00:00: 00 No 300 LITHIUM CARBONATE 300 MG TABS 2022-0 8-23 00:00: 00 No 300 LITHIUM CARBONATE 300 MG TABS 2021-0 823 00:00: 00 No 300 LITHIUM CARBONATE 300 MG TABS 0 12-06 00:00: 00 No 300 TAKE 1 TABLET BY MOUTH EVERY DAY 0 8-14 00:00: 00 No 5 TAKE 1 TABLET BY MOUTH EVERY DAY 0 814 00:00: 00 No 5 TAKE 1 TABLET BY MOUTH EVERY DAY 0 14 00:00: 00 No 5 TAKE 1 TABLET BY MOUTH EVERY DAY 0 14 00:00: 00 No 5 TAKE 1 TABLET BY MOUTH EVERY DAY 0 14 00:00: 00 No 5 TAKE 1 TABLET BY MOUTH EVERY DAY 0 14 00:00: 00 No 5 TAKE 1 TABLET BY MOUTH EVERY DAY 0 11-27 00:00: 00 No 5 Miralax 17 gram/dose oral powder 2021-0 8 00:00: 00 No gram/do se ProAir HFA 90 mcg/actuati on aerosol inhaler 0 8-12 00:00: 00 No 2mcg/ac tuation docusate sodium 100 mg capsule 0 8 00:00: 00 No 1mg &lt 0 8 00:00: 00 No 400 TAKE 1 TAB ONCE A DAY (DAILY) FOR HYPERTENSIO N 0 812 00:00: 00 No 10 TAKE 1 TABLET BY MOUTH EVERY DAY 0 8-12 00:00: 00 No 5 &lt 2021-0 812 00:00: 00 No 400 TAKE 1 TABLET BY MOUTH EVERY DAY 0 812 00:00: 00 No 5 Miralax 17 gram/dose oral powder 0 8 00:00: 00 No gram/do se ProAir HFA 90 mcg/actuati on aerosol inhaler 0 8-12 00:00: 00 No 2mcg/ac tuation docusate sodium 100 mg capsule 0 8-12 00:00: 00 No 1mg &lt 2021-0 8-12 00:00: 00 No 400 TAKE 1 TAB ONCE A DAY (DAILY) FOR HYPERTENSIO N 2021-0 8-12 00:00: 00 No 10 TAKE 1 TABLET BY MOUTH EVERY DAY 0 8- 00:00: 00 No 5 &lt 2021-0 8-12 00:00: 00 No 400 TAKE 1 TABLET BY MOUTH EVERY DAY 0 8- 00:00: 00 No 5 Miralax 17 gram/dose oral powder 0 8- 00:00: 00 No gram/do se ProAir HFA 90 mcg/actuati on aerosol inhaler 0 8- 00:00: 00 No 2mcg/ac tuation docusate sodium 100 mg capsule 0 8- 00:00: 00 No 1mg &lt 0 8 00:00: 00 No 400 TAKE 1 TAB ONCE A DAY (DAILY) FOR HYPERTENSIO N 0 11-25 00:00: 00 No 10 TAKE 1 TABLET BY MOUTH EVERY DAY 0 8 00:00: 00 No 5 &lt 2021-0 8- 00:00: 00 No 400 TAKE 1 TABLET BY MOUTH EVERY DAY 0 11-25 00:00: 00 No 5 Miralax 17 gram/dose oral powder 0 11-25 00:00: 00 No gram/do se Dose Unknown 0 8 00:00: 00 No docusate sodium 100 mg capsule 0 11-25 00:00: 00 No 1mg &lt 0 11-25 00:00: 00 No 400 TAKE 1 TAB ONCE A DAY (DAILY) FOR HYPERTENSIO N 0 8 00:00: 00 No 10 TAKE 1 TABLET BY MOUTH EVERY DAY 0 - 00:00: 00 No 5 &lt 2021-0 8- 00:00: 00 No 400 TAKE 1 TABLET BY MOUTH EVERY DAY 0 8- 00:00: 00 No 5 Dose Unknown 0 8 00:00: 00 No Dose Unknown 0 8 00:00: 00 No TAKE 1 CAPSULE TWICE DAILY. 0 8- 00:00: 00 No 1unit &lt 2021-0 8- 00:00: 00 No 400 TAKE 1 TAB ONCE A DAY (DAILY) FOR HYPERTENSIO N 0 8-12 00:00: 00 No 10 TAKE 1 TABLET BY MOUTH EVERY DAY 2021-0 8-12 00:00: 00 No 5 &lt 2-0 8-12 00:00: 00 No 400 TAKE 1 TABLET BY MOUTH EVERY DAY 2021-0 8-12 00:00: 00 No 5 Miralax 17 gram/dose oral powder 2021-0 8-12 00:00: 00 No gram/do se ProAir HFA 90 mcg/actuati on aerosol inhaler 2021-0 8-12 00:00: 00 No 2mcg/ac tuation docusate sodium 100 mg capsule 0 8-12 00:00: 00 No 1mg &lt 2021-0 8-12 00:00: 00 No 400 TAKE 1 TAB ONCE A DAY (DAILY) FOR HYPERTENSIO N 2021-0 8-12 00:00: 00 No 10 TAKE 1 TABLET BY MOUTH EVERY DAY 2021-0 8-12 00:00: 00 No 5 &lt 2021-0 8-12 00:00: 00 No 400 TAKE 1 TABLET BY MOUTH EVERY DAY 2021-0 8-12 00:00: 00 No 5 Miralax 17 gram/dose oral powder 2021-0 8-12 00:00: 00 No gram/do se ProAir HFA 90 mcg/actuati on aerosol inhaler 2021-0 8-12 00:00: 00 No 2mcg/ac tuation docusate sodium 100 mg capsule 0 8- 00:00: 00 No 1mg &lt 2021-0 8-12 00:00: 00 No 400 TAKE 1 TAB ONCE A DAY (DAILY) FOR HYPERTENSIO N 2021-0 8-12 00:00: 00 No 10 TAKE 1 TABLET BY MOUTH EVERY DAY 2021-0 8-12 00:00: 00 No 5 &lt 2-0 8-12 00:00: 00 No 400 TAKE 1 TABLET BY MOUTH EVERY DAY 2021-0 8-12 00:00: 00 No 5 Miralax 17 gram/dose oral powder 2021-0 8-12 00:00: 00 No gram/do se ProAir HFA 90 mcg/actuati on aerosol inhaler 2021-0 8-12 00:00: 00 No 2mcg/ac tuation docusate sodium 100 mg capsule 11-25 00:00: 00 No 1mg &lt 11-25 00:00: 00 No 400 TAKE 1 TAB ONCE A DAY (DAILY) FOR HYPERTENSIO N 11-25 00:00: 00 No 10 TAKE 1 TABLET BY MOUTH EVERY DAY 11-25 00:00: 00 No 5 &lt 11-25 00:00: 00 No 400 TAKE 1 TABLET BY MOUTH EVERY DAY 11-25 00:00: 00 No 5 TAKE 1 CAPSULE BY MOUTH EVERY DAY 11-24 00:00: 00 No 20 TAKE 1 TABLET BY MOUTH EVERY DAY IN THE MORNING 11-24 00:00: 00 No TAKE 1 TAB ONCE A DAY (DAILY) FOR ASTHMA 11-24 00:00: 00 No 10 TAKE 1 CAPSULE BY MOUTH EVERY DAY 11-24 00:00: 00 No 20 TAKE 1 TABLET BY MOUTH EVERY DAY IN THE MORNING 11-24 00:00: 00 No TAKE 1 TAB ONCE A DAY (DAILY) FOR ASTHMA 11-24 00:00: 00 No 10 TAKE 1 CAPSULE BY MOUTH EVERY DAY 11-24 00:00: 00 No 20 TAKE 1 TABLET BY MOUTH EVERY DAY IN THE MORNING 11-24 00:00: 00 No TAKE 1 TAB ONCE A DAY (DAILY) FOR ASTHMA 11-24 00:00: 00 No 10 TAKE 1 CAPSULE BY MOUTH EVERY DAY 11-24 00:00: 00 No 20 TAKE 1 TABLET BY MOUTH EVERY DAY IN THE MORNING 11-24 00:00: 00 No TAKE 1 TAB ONCE A DAY (DAILY) FOR ASTHMA 11-24 00:00: 00 No 10 TAKE 1 CAPSULE BY MOUTH EVERY DAY 11-24 00:00: 00 No 20 TAKE 1 TABLET BY MOUTH EVERY DAY IN THE MORNING 11-24 00:00: 00 No TAKE 1 TAB ONCE A DAY (DAILY) FOR ASTHMA 11-24 00:00: 00 No 10 TAKE 1 CAPSULE BY MOUTH EVERY DAY 11-24 00:00: 00 No 20 TAKE 1 TABLET BY MOUTH EVERY DAY IN THE MORNING 2022-0 8-11 00:00: 00 No TAKE 1 TAB ONCE A DAY (DAILY) FOR ASTHMA 2-0 8- 00:00: 00 No 10 TAKE 1 CAPSULE BY MOUTH EVERY DAY 2021-0 8 00:00: 00 No 20 TAKE 1 TABLET BY MOUTH EVERY DAY IN THE MORNING 2021-0 8- 00:00: 00 No TAKE 1 TAB ONCE A DAY (DAILY) FOR ASTHMA 2021-0 8 00:00: 00 No 10 TAKE 1 CAPSULE BY MOUTH EVERY DAY 2021-0 8 00:00: 00 No 20 TAKE 1 TABLET BY MOUTH EVERY DAY IN THE MORNING 2021-0 8- 00:00: 00 No TAKE 1 TAB ONCE A DAY (DAILY) FOR ASTHMA 2-0 8 00:00: 00 No 10 &lt 2022-0 8-10 00:00: 00 No &lt 2022-0 8-10 00:00: 00 No Dose Unknown 2-0 8-10 00:00: 00 No 1 TAKE 1 CAPSULE BY MOUTH TWICE A DAY 2-0 8-10 00:00: 00 No 300 &lt 2022-0 8-10 00:00: 00 No &lt 2022-0 8-10 00:00: 00 No Dose Unknown 2022-0 8-10 00:00: 00 No 1 TAKE 1 CAPSULE BY MOUTH TWICE A DAY 2-0 8-10 00:00: 00 No 300 &lt 2022-0 8-10 00:00: 00 No &lt 2022-0 8-10 00:00: 00 No Dose Unknown 2022-0 8-10 00:00: 00 No 1 TAKE 1 CAPSULE BY MOUTH TWICE A DAY 2022-0 8-10 00:00: 00 No 300 &lt 2022-0 8-10 00:00: 00 No &lt 2022-0 8-10 00:00: 00 No Dose Unknown 2022-0 8-10 00:00: 00 No 1 TAKE 1 CAPSULE BY MOUTH TWICE A DAY 2-0 8-10 00:00: 00 No 300 &lt 2022-0 8-10 00:00: 00 No &lt 2022-0 8-10 00:00: 00 No Dose Unknown 2022-0 8-10 00:00: 00 No 1 TAKE 1 CAPSULE BY MOUTH TWICE A DAY 2022-0 8-10 00:00: 00 No 300 &lt 2022-0 8-10 00:00: 00 No &lt 2022-0 8-10 00:00: 00 No Dose Unknown 2022-0 8-10 00:00: 00 No 1 TAKE 1 CAPSULE BY MOUTH TWICE A DAY 2022-0 8-10 00:00: 00 No 300 &lt 2022-0 8-10 00:00: 00 No &lt 2022-0 8-10 00:00: 00 No Dose Unknown 2022-0 8- 00:00: 00 No 1 TAKE 1 CAPSULE BY MOUTH TWICE A DAY 2022-0 8- 00:00: 00 No 300 &lt 2022-0 8- 00:00: 00 No &lt 2022-0 8-10 00:00: 00 No Dose Unknown 2022-0 8- 00:00: 00 No 1 TAKE 1 CAPSULE BY MOUTH TWICE A DAY 2022-0 8- 00:00: 00 No 300 TAKE 1 CAPSULE BY MOUTH EVERY DAY 2022-0 8- 00:00: 00 No 20 &lt 2022-0 8- 00:00: 00 No 300 &lt 2022-0 8 00:00: 00 No 10 TAKE 3 CAPSULES BY MOUTH EVERY DAY 2022-0 8- 00:00: 00 No 20 TAKE 1 CAPSULE BY MOUTH EVERY DAY 2022-0 8 00:00: 00 No 20 &lt 2022-0 8 00:00: 00 No 300 &lt 2022-0 8 00:00: 00 No 10 TAKE 3 CAPSULES BY MOUTH EVERY DAY 2022-0 8- 00:00: 00 No 20 TAKE 1 CAPSULE BY MOUTH EVERY DAY 2022-0 8- 00:00: 00 No 20 &lt 2022-0 8- 00:00: 00 No 300 &lt 2022-0 8- 00:00: 00 No 10 TAKE 3 CAPSULES BY MOUTH EVERY DAY 2022-0 8- 00:00: 00 No 20 TAKE 1 CAPSULE BY MOUTH EVERY DAY 2022-0 8- 00:00: 00 No 20 &lt 2022-0 8- 00:00: 00 No 300 &lt 2022-0 8- 00:00: 00 No 10 TAKE 3 CAPSULES BY MOUTH EVERY DAY 2022-0 8- 00:00: 00 No 20 TAKE 1 CAPSULE BY MOUTH EVERY DAY 2022-0 8- 00:00: 00 No 20 &lt 2022-0 8- 00:00: 00 No 300 &lt 2022-0 8 00:00: 00 No 10 TAKE 3 CAPSULES BY MOUTH EVERY DAY 2022-0 8 00:00: 00 No 20 TAKE 1 CAPSULE BY MOUTH EVERY DAY 2022-0 8- 00:00: 00 No 20 &lt 2022-0 8- 00:00: 00 No 300 &lt 2022-0 8- 00:00: 00 No 10 TAKE 3 CAPSULES BY MOUTH EVERY DAY 2022-0 8 00:00: 00 No 20 TAKE 1 CAPSULE BY MOUTH EVERY DAY 2022-0 8 00:00: 00 No 20 &lt 2022-0 8 00:00: 00 No 300 &lt 2022-0 8 00:00: 00 No 10 TAKE 3 CAPSULES BY MOUTH EVERY DAY 2022-0 8 00:00: 00 No 20 TAKE 1 CAPSULE BY MOUTH EVERY DAY 2022-0 8 00:00: 00 No 20 &lt 2022-0 8 00:00: 00 No 300 &lt 2022-0 8 00:00: 00 No 10 TAKE 3 CAPSULES BY MOUTH EVERY DAY 2022-0 8 00:00: 00 No 20 TAKE 1 CAPSULE EVERY DAY AT 8AM AND 2 PM FOR ADD OR ADHD 2022-0 8 00:00: 00 No 30 TAKE 1 CAPSULE EVERY DAY AT 8AM AND 2 PM FOR ADD OR ADHD 2022-0 8- 00:00: 00 No 30 TAKE 1 CAPSULE EVERY DAY AT 8AM AND 2 PM FOR ADD OR ADHD 2022-0 8 00:00: 00 No 30 TAKE 1 CAPSULE EVERY DAY AT 8AM AND 2 PM FOR ADD OR ADHD 2022-0 8- 00:00: 00 No 30 TAKE 1 CAPSULE EVERY DAY AT 8AM AND 2 PM FOR ADD OR ADHD 2022-0 8- 00:00: 00 No 30 TAKE 1 CAPSULE EVERY DAY AT 8AM AND 2 PM FOR ADD OR ADHD 2022-0 8- 00:00: 00 No 30 TAKE 1 CAPSULE EVERY DAY AT 8AM AND 2 PM FOR ADD OR ADHD 2022-0 8 00:00: 00 No 30 TAKE 1 CAPSULE EVERY DAY AT 8AM AND 2 PM FOR ADD OR ADHD 2021-0 11-18 00:00: 00 No 30 TAKE 1 TABLET BY MOUTH TWICE A DAY 2021-0 11-17 00:00: 00 No 30 TAKE 1 CAPSULE BY MOUTH EVERY DAY 2021-0 11-17 00:00: 00 No 40 Dose Unknown 2021-0 11-17 00:00: 00 No 20 TAKE 1 CAPSULE BY MOUTH TWICE A DAY FOR SCIATICA PAIN 2021-0 11-17 00:00: 00 No 400 &lt 2021-0 11-17 00:00: 00 No 10 Dose Unknown 2021-0 11-17 00:00: 00 No 300 TAKE 1 TABLET BY MOUTH TWICE A DAY 2021-0 11-17 00:00: 00 No 30 TAKE 1 CAPSULE BY MOUTH EVERY DAY 2021-0 11-17 00:00: 00 No 40 Dose Unknown 2021-0 11-17 00:00: 00 No 20 TAKE 1 CAPSULE BY MOUTH TWICE A DAY FOR SCIATICA PAIN 2021-0 11-17 00:00: 00 No 400 &lt 2021-0 11-17 00:00: 00 No 10 Dose Unknown 2021-0 11-17 00:00: 00 No 300 TAKE 1 TABLET BY MOUTH TWICE A DAY 2021-0 11-17 00:00: 00 No 30 TAKE 1 CAPSULE BY MOUTH EVERY DAY 2021-0 11-17 00:00: 00 No 40 Dose Unknown 2021-0 11-17 00:00: 00 No 20 TAKE 1 CAPSULE BY MOUTH TWICE A DAY FOR SCIATICA PAIN 2021-0 11-17 00:00: 00 No 400 &lt 2021-0 11-17 00:00: 00 No 10 Dose Unknown 2021-0 11-17 00:00: 00 No 300 TAKE 1 TABLET BY MOUTH TWICE A DAY 2021-0 11-17 00:00: 00 No 30 TAKE 1 CAPSULE BY MOUTH EVERY DAY 2021-0 11-17 00:00: 00 No 40 Dose Unknown 2021-0 11-17 00:00: 00 No 20 TAKE 1 CAPSULE BY MOUTH TWICE A DAY FOR SCIATICA PAIN 2021-0 11-17 00:00: 00 No 400 &lt 2022-0 8 00:00: 00 No 10 Dose Unknown 2021-0 11-17 00:00: 00 No 300 TAKE 1 TABLET BY MOUTH TWICE A DAY 2022-0 8- 00:00: 00 No 30 TAKE 1 CAPSULE BY MOUTH EVERY DAY 2022-0 8- 00:00: 00 No 40 Dose Unknown 2022-0 8- 00:00: 00 No 20 TAKE 1 CAPSULE BY MOUTH TWICE A DAY FOR SCIATICA PAIN 2-0 8- 00:00: 00 No 400 &lt 2022-0 8- 00:00: 00 No 10 Dose Unknown 2022-0 8- 00:00: 00 No 300 TAKE 1 TABLET BY MOUTH TWICE A DAY 2022-0 8- 00:00: 00 No 30 TAKE 1 CAPSULE BY MOUTH EVERY DAY 2-0 8- 00:00: 00 No 40 Dose Unknown 2021-0 8- 00:00: 00 No 20 TAKE 1 CAPSULE BY MOUTH TWICE A DAY FOR SCIATICA PAIN 2-0 8- 00:00: 00 No 400 &lt 2022-0 8- 00:00: 00 No 10 Dose Unknown 2021-0 8- 00:00: 00 No 300 TAKE 1 TABLET BY MOUTH TWICE A DAY 2-0 8- 00:00: 00 No 30 TAKE 1 CAPSULE BY MOUTH EVERY DAY 2-0 8- 00:00: 00 No 40 Dose Unknown 2021-0 8- 00:00: 00 No 20 TAKE 1 CAPSULE BY MOUTH TWICE A DAY FOR SCIATICA PAIN 2021-0 8- 00:00: 00 No 400 &lt 2022-0 8- 00:00: 00 No 10 Dose Unknown 2021-0 8- 00:00: 00 No 300 TAKE 1 TABLET BY MOUTH TWICE A DAY 2-0 8- 00:00: 00 No 30 TAKE 1 CAPSULE BY MOUTH EVERY DAY 2-0 8- 00:00: 00 No 40 Dose Unknown 2-0 8- 00:00: 00 No 20 TAKE 1 CAPSULE BY MOUTH TWICE A DAY FOR SCIATICA PAIN 2-0 8- 00:00: 00 No 400 &lt 2022-0 8-04 00:00: 00 No 10 Dose Unknown 2021-0 8- 00:00: 00 No 300 TAKE 1 CAPSULE EVERY DAY AT 8AM AND 2 PM FOR ADD OR ADHD 2-0 8- 00:00: 00 No 30 &lt 2022-0 8-03 00:00: 00 No 60 TAKE 1 CAPSULE EVERY DAY AT 8AM AND 2 PM FOR ADD OR ADHD 2022-0 8-03 00:00: 00 No 30 &lt 2022-0 8-03 00:00: 00 No 60 TAKE 1 CAPSULE EVERY DAY AT 8AM AND 2 PM FOR ADD OR ADHD 2022-0 8-03 00:00: 00 No 30 &lt 2022-0 8-03 00:00: 00 No 60 TAKE 1 CAPSULE EVERY DAY AT 8AM AND 2 PM FOR ADD OR ADHD 2022-0 8-03 00:00: 00 No 30 &lt 2022-0 8-03 00:00: 00 No 60 TAKE 1 CAPSULE EVERY DAY AT 8AM AND 2 PM FOR ADD OR ADHD 2022-0 8-03 00:00: 00 No 30 &lt 2022-0 8-03 00:00: 00 No 60 TAKE 1 CAPSULE EVERY DAY AT 8AM AND 2 PM FOR ADD OR ADHD 2022-0 8- 00:00: 00 No 30 &lt 2022-0 8-03 00:00: 00 No 60 TAKE 1 CAPSULE EVERY DAY AT 8AM AND 2 PM FOR ADD OR ADHD 2022-0 8- 00:00: 00 No 30 &lt 2022-0 8-03 00:00: 00 No 60 TAKE 1 CAPSULE EVERY DAY AT 8AM AND 2 PM FOR ADD OR ADHD 2022-0 8- 00:00: 00 No 30 &lt 2022-0 8-03 00:00: 00 No 60 &lt 2022-0 8- 00:00: 00 No Dose Unknown 2022-0 8- 00:00: 00 No 1 TAKE 1 TABLET BY MOUTH EVERY DAY IN THE MORNING 2022-0 8- 00:00: 00 No TAKE 1 TABLET BY MOUTH THREE TIMES A DAY NEEDED 2022-0 8- 00:00: 00 No 1 Dose Unknown 2022-0 8- 00:00: 00 No 300 &lt 2022-0 8- 00:00: 00 No Dose Unknown 2022-0 8- 00:00: 00 No 1 TAKE 1 TABLET BY MOUTH EVERY DAY IN THE MORNING 2022-0 8- 00:00: 00 No TAKE 1 TABLET BY MOUTH THREE TIMES A DAY NEEDED 2022-0 8- 00:00: 00 No 1 Dose Unknown 0 11-15 00:00: 00 No 300 &lt 2022-0 11-15 00:00: 00 No Dose Unknown 0 11-15 00:00: 00 No 1 TAKE 1 TABLET BY MOUTH EVERY DAY IN THE MORNING 0 11-15 00:00: 00 No TAKE 1 TABLET BY MOUTH THREE TIMES A DAY NEEDED 0 11-15 00:00: 00 No 1 Dose Unknown 0 11-15 00:00: 00 No 300 &lt 2021-0 11-15 00:00: 00 No Dose Unknown 0 11-15 00:00: 00 No 1 TAKE 1 TABLET BY MOUTH EVERY DAY IN THE MORNING 0 11-15 00:00: 00 No TAKE 1 TABLET BY MOUTH THREE TIMES A DAY NEEDED 0 11-15 00:00: 00 No 1 Dose Unknown 0 11-15 00:00: 00 No 300 &lt 2021-0 11-15 00:00: 00 No Dose Unknown 0 11-15 00:00: 00 No 1 TAKE 1 TABLET BY MOUTH EVERY DAY IN THE MORNING 0 11-15 00:00: 00 No TAKE 1 TABLET BY MOUTH THREE TIMES A DAY NEEDED 0 11-15 00:00: 00 No 1 Dose Unknown 0 11-15 00:00: 00 No 300 &lt 2021-0 11-15 00:00: 00 No Dose Unknown 0 11-15 00:00: 00 No 1 TAKE 1 TABLET BY MOUTH EVERY DAY IN THE MORNING 0 11-15 00:00: 00 No TAKE 1 TABLET BY MOUTH THREE TIMES A DAY NEEDED 0 11-15 00:00: 00 No 1 Dose Unknown 0 11-15 00:00: 00 No 300 &lt 2022-0 11-15 00:00: 00 No Dose Unknown 0 11-15 00:00: 00 No 1 TAKE 1 TABLET BY MOUTH EVERY DAY IN THE MORNING 0 11-15 00:00: 00 No TAKE 1 TABLET BY MOUTH THREE TIMES A DAY NEEDED 0 11-15 00:00: 00 No 1 Dose Unknown 0 11-15 00:00: 00 No 300 &lt 2022-0 11-15 00:00: 00 No Dose Unknown 0 11-15 00:00: 00 No 1 TAKE 1 TABLET BY MOUTH EVERY DAY IN THE MORNING 0 11-15 00:00: 00 No TAKE 1 TABLET BY MOUTH THREE TIMES A DAY NEEDED 0 11-15 00:00: 00 No 1 Dose Unknown 0 11-15 00:00: 00 No 300 budesonide- formoterol HFA 160 mcg-4.5 mcg/actuati on aerosol inhaler 0 11-13 00:00: 00 No 2mcg/ac tuation cyclobenzap rine 5 mg tablet 0 11-13 00:00: 00 No 1mg &lt 0 11-13 00:00: 00 No 300 budesonide- formoterol HFA 160 mcg-4.5 mcg/actuati on aerosol inhaler 0 11-13 00:00: 00 No 2mcg/ac tuation cyclobenzap rine 5 mg tablet 0 11-13 00:00: 00 No 1mg &lt 0 11-13 00:00: 00 No 300 budesonide- formoterol HFA 160 mcg-4.5 mcg/actuati on aerosol inhaler 0 11-13 00:00: 00 No 2mcg/ac tuation cyclobenzap rine 5 mg tablet 11-13 00:00: 00 No 1mg &lt 0 11-13 00:00: 00 No 300 budesonide- formoterol HFA 160 mcg-4.5 mcg/actuati on aerosol inhaler 0 11-13 00:00: 00 No 2mcg/ac tuation Dose Unknown 0 11-13 00:00: 00 No &lt 0 11-13 00:00: 00 No 300 Dose Unknown 0 11-13 00:00: 00 No &lt 0 11-13 00:00: 00 No 300 budesonide- formoterol HFA 160 mcg-4.5 mcg/actuati on aerosol inhaler 0 11-13 00:00: 00 No 2mcg/ac tuation cyclobenzap rine 5 mg tablet 11-13 00:00: 00 No 1mg &lt 2022-0 7- 00:00: 00 No 300 budesonide- formoterol HFA 160 mcg-4.5 mcg/actuati on aerosol inhaler 2021-0 - 00:00: 00 No 2mcg/ac tuation cyclobenzap rine 5 mg tablet 0 11-13 00:00: 00 No 1mg &lt 2022-0 7- 00:00: 00 No 300 budesonide- formoterol HFA 160 mcg-4.5 mcg/actuati on aerosol inhaler 0 11-13 00:00: 00 No 2mcg/ac tuation cyclobenzap rine 5 mg tablet 0 11-13 00:00: 00 No 1mg &lt 2022-0 7- 00:00: 00 No 300 &lt 2022-0 7- 00:00: 00 No 300 &lt 2022-0 7- 00:00: 00 No 300 &lt 2022-0 7-29 00:00: 00 No 300 &lt 2022-0 7- 00:00: 00 No 300 &lt 2022-0 7- 00:00: 00 No 300 &lt 2022-0 7-29 00:00: 00 No 300 &lt 2022-0 7-29 00:00: 00 No 300 &lt 2022-0 7-29 00:00: 00 No 300 &lt 2022-0 7- 00:00: 00 No &lt 2022-0 7- 00:00: 00 No 10 Dose Unknown 2022-0 7 00:00: 00 No 1 TAKE 1 TABLET BY MOUTH THREE TIMES A DAY 2022-0 7- 00:00: 00 No 15 Dose Unknown 2022-0 7- 00:00: 00 No 1 &lt 2022-0 7- 00:00: 00 No &lt 2022-0 7- 00:00: 00 No 10 Dose Unknown 2022-0 7 00:00: 00 No 1 TAKE 1 TABLET BY MOUTH THREE TIMES A DAY 2022-0 7 00:00: 00 No 15 Dose Unknown 2022-0 7 00:00: 00 No 1 &lt 2022-0 7- 00:00: 00 No &lt 2022-0 11-10 00:00: 00 No 10 Dose Unknown 2022-0 11-10 00:00: 00 No 1 TAKE 1 TABLET BY MOUTH THREE TIMES A DAY 2022-0 11-10 00:00: 00 No 15 Dose Unknown 2022-0 11-10 00:00: 00 No 1 &lt 2022-0 11-10 00:00: 00 No &lt 2022-0 11-10 00:00: 00 No 10 Dose Unknown 2022-0 11-10 00:00: 00 No 1 TAKE 1 TABLET BY MOUTH THREE TIMES A DAY 2022-0 11-10 00:00: 00 No 15 Dose Unknown 2022-0 11-10 00:00: 00 No 1 &lt 2022-0 11-10 00:00: 00 No &lt 2022-0 11-10 00:00: 00 No 10 Dose Unknown 2022-0 11-10 00:00: 00 No 1 TAKE 1 TABLET BY MOUTH THREE TIMES A DAY 2022-0 11-10 00:00: 00 No 15 Dose Unknown 2022-0 11-10 00:00: 00 No 1 &lt 2022-0 11-10 00:00: 00 No &lt 2022-0 11-10 00:00: 00 No 10 Dose Unknown 2022-0 11-10 00:00: 00 No 1 TAKE 1 TABLET BY MOUTH THREE TIMES A DAY 2022-0 11-10 00:00: 00 No 15 Dose Unknown 2022-0 11-10 00:00: 00 No 1 &lt 2022-0 11-10 00:00: 00 No &lt 2022-0 11-10 00:00: 00 No 10 Dose Unknown 2022-0 11-10 00:00: 00 No 1 TAKE 1 TABLET BY MOUTH THREE TIMES A DAY 2022-0 11-10 00:00: 00 No 15 Dose Unknown 2022-0 11-10 00:00: 00 No 1 &lt 2022-0 11-10 00:00: 00 No &lt 2022-0 11-10 00:00: 00 No 10 Dose Unknown 2022-0 11-10 00:00: 00 No 1 TAKE 1 TABLET BY MOUTH THREE TIMES A DAY 2022-0 11-10 00:00: 00 No 15 Dose Unknown 2022-0 11-10 00:00: 00 No 1 TAKE 1 TABLET BY MOUTH EVERY DAY 2022-0 11-08 00:00: 00 No 10 &lt 2022-0 11-08 00:00: 00 No 40 &lt 2022-0 11-08 00:00: 00 No 300 Dose Unknown 2022-0 11-08 00:00: 00 No 1 &lt 2022-0 11-08 00:00: 00 No 400 &lt 2022-0 11-08 00:00: 00 No 400 TAKE 1 TABLET BY MOUTH EVERY DAY 2022-0 11-08 00:00: 00 No 10 &lt 2022-0 11-08 00:00: 00 No 40 &lt 2022-0 11-08 00:00: 00 No 300 Dose Unknown 2022-0 11-08 00:00: 00 No 1 &lt 2022-0 11-08 00:00: 00 No 400 &lt 2022-0 11-08 00:00: 00 No 400 TAKE 1 TABLET BY MOUTH EVERY DAY 2022-0 11-08 00:00: 00 No 10 &lt 2022-0 11-08 00:00: 00 No 40 &lt 2022-0 11-08 00:00: 00 No 300 Dose Unknown 2022-0 11-08 00:00: 00 No 1 &lt 2022-0 11-08 00:00: 00 No 400 &lt 2022-0 11-08 00:00: 00 No 400 TAKE 1 TABLET BY MOUTH EVERY DAY 2022-0 11-08 00:00: 00 No 10 &lt 2022-0 11-08 00:00: 00 No 40 &lt 2022-0 11-08 00:00: 00 No 300 Dose Unknown 2022-0 11-08 00:00: 00 No 1 &lt 2022-0 11-08 00:00: 00 No 400 &lt 2022-0 11-08 00:00: 00 No 400 TAKE 1 TABLET BY MOUTH EVERY DAY 2022-0 11-08 00:00: 00 No 10 &lt 2022-0 11-08 00:00: 00 No 40 &lt 2022-0 11-08 00:00: 00 No 300 Dose Unknown 2022-0 11-08 00:00: 00 No 1 &lt 2022-0 11-08 00:00: 00 No 400 &lt 2022-0 11-08 00:00: 00 No 400 TAKE 1 TABLET BY MOUTH EVERY DAY 2022-0 11-08 00:00: 00 No 10 &lt 2022-0 11-08 00:00: 00 No 40 &lt 2022-0 11-08 00:00: 00 No 300 Dose Unknown 2-0 11-08 00:00: 00 No 1 &lt 2022-0 11-08 00:00: 00 No 400 &lt 2022-0 11-08 00:00: 00 No 400 TAKE 1 TABLET BY MOUTH EVERY DAY 2-0 11-08 00:00: 00 No 10 &lt 2022-0 11-08 00:00: 00 No 40 &lt 2022-0 11-08 00:00: 00 No 300 Dose Unknown 2021-0 11-08 00:00: 00 No 1 &lt 2022-0 11-08 00:00: 00 No 400 &lt 2022-0 11-08 00:00: 00 No 400 TAKE 1 TABLET BY MOUTH EVERY DAY 2-0 11-08 00:00: 00 No 10 &lt 2022-0 11-08 00:00: 00 No 40 &lt 2022-0 11-08 00:00: 00 No 300 Dose Unknown 2021-0 11-08 00:00: 00 No 1 &lt 2022-0 11-08 00:00: 00 No 400 &lt 2022-0 11-08 00:00: 00 No 400 TAKE 1 TABLET BY MOUTH EVERY DAY 2021-0 11-08 00:00: 00 No 10 &lt 2022-0 11-08 00:00: 00 No 40 &lt 2022-0 11-08 00:00: 00 No 300 Dose Unknown 2021-0 11-08 00:00: 00 No 1 &lt 2022-0 11-08 00:00: 00 No 400 &lt 2022-0 11-08 00:00: 00 No 400 TAKE 3 CAPSULES BY MOUTH EVERY DAY 2-0 11-01 00:00: 00 No 20 &lt 2022-0 11-01 00:00: 00 No 1 TAKE 1 CAPSULE EVERY DAY AT 8AM AND 2 PM FOR ADD OR ADHD 2022-0 11-01 00:00: 00 No 30 TAKE 3 CAPSULES BY MOUTH EVERY DAY 2022-0 11-01 00:00: 00 No 20 &lt 2022-0 7-19 00:00: 00 No 1 TAKE 1 CAPSULE EVERY DAY AT 8AM AND 2 PM FOR ADD OR ADHD 2022-0 7-19 00:00: 00 No 30 TAKE 3 CAPSULES BY MOUTH EVERY DAY 2022-0 7-19 00:00: 00 No 20 &lt 2022-0 7-19 00:00: 00 No 1 TAKE 1 CAPSULE EVERY DAY AT 8AM AND 2 PM FOR ADD OR ADHD 2022-0 7-19 00:00: 00 No 30 TAKE 3 CAPSULES BY MOUTH EVERY DAY 2022-0 7-19 00:00: 00 No 20 &lt 2022-0 7-19 00:00: 00 No 1 TAKE 1 CAPSULE EVERY DAY AT 8AM AND 2 PM FOR ADD OR ADHD 2022-0 7-19 00:00: 00 No 30 TAKE 3 CAPSULES BY MOUTH EVERY DAY 2022-0 7-19 00:00: 00 No 20 &lt 2022-0 7-19 00:00: 00 No 1 TAKE 1 CAPSULE EVERY DAY AT 8AM AND 2 PM FOR ADD OR ADHD 2022-0 7-19 00:00: 00 No 30 TAKE 3 CAPSULES BY MOUTH EVERY DAY 2022-0 7-19 00:00: 00 No 20 &lt 2022-0 7-19 00:00: 00 No 1 TAKE 1 CAPSULE EVERY DAY AT 8AM AND 2 PM FOR ADD OR ADHD 2022-0 7-19 00:00: 00 No 30 TAKE 3 CAPSULES BY MOUTH EVERY DAY 2022-0 7-19 00:00: 00 No 20 &lt 2022-0 7-19 00:00: 00 No 1 TAKE 1 CAPSULE EVERY DAY AT 8AM AND 2 PM FOR ADD OR ADHD 2022-0 7-19 00:00: 00 No 30 TAKE 3 CAPSULES BY MOUTH EVERY DAY 2022-0 7-19 00:00: 00 No 20 &lt 2022-0 7-19 00:00: 00 No 1 TAKE 1 CAPSULE EVERY DAY AT 8AM AND 2 PM FOR ADD OR ADHD 2022-0 7-19 00:00: 00 No 30 TAKE 3 CAPSULES BY MOUTH EVERY DAY 2022-0 7-19 00:00: 00 No 20 &lt 2022-0 7-19 00:00: 00 No 1 TAKE 1 CAPSULE EVERY DAY AT 8AM AND 2 PM FOR ADD OR ADHD 2022-0 7-19 00:00: 00 No 30 &lt 2022-0 7-15 00:00: 00 No 30 &lt 2022-0 7-15 00:00: 00 No 30 &lt 2022-0 7-15 00:00: 00 No 30 &lt 2022-0 7-15 00:00: 00 No 30 &lt 2022-0 7-15 00:00: 00 No 30 &lt 2022-0 7-15 00:00: 00 No 30 &lt 2022-0 7-15 00:00: 00 No 30 &lt 2022-0 7-15 00:00: 00 No 30 &lt 2022-0 7-15 00:00: 00 No 30 &lt 2022-0 7-05 00:00: 00 No 40 TAKE 1 TABLET BY MOUTH THREE TIMES A DAY NEEDED 2022-0 7-05 00:00: 00 No 1 &lt 2022-0 7-05 00:00: 00 No 40 TAKE 1 TABLET BY MOUTH THREE TIMES A DAY NEEDED 2022-0 7-05 00:00: 00 No 1 &lt 2022-0 7-05 00:00: 00 No 40 TAKE 1 TABLET BY MOUTH THREE TIMES A DAY NEEDED 2022-0 7-05 00:00: 00 No 1 &lt 2022-0 7-05 00:00: 00 No 40 TAKE 1 TABLET BY MOUTH THREE TIMES A DAY NEEDED 2022-0 7-05 00:00: 00 No 1 &lt 2022-0 7-05 00:00: 00 No 40 TAKE 1 TABLET BY MOUTH THREE TIMES A DAY NEEDED 2022-0 7-05 00:00: 00 No 1 &lt 2022-0 7-05 00:00: 00 No 40 TAKE 1 TABLET BY MOUTH THREE TIMES A DAY NEEDED 2022-0 7-05 00:00: 00 No 1 &lt 2022-0 7-05 00:00: 00 No 40 TAKE 1 TABLET BY MOUTH THREE TIMES A DAY NEEDED 2022-0 7-05 00:00: 00 No 1 &lt 2022-0 7-05 00:00: 00 No 40 TAKE 1 TABLET BY MOUTH THREE TIMES A DAY NEEDED 2022-0 7-05 00:00: 00 No 1 &lt 2022-0 7-05 00:00: 00 No 40 TAKE 1 TABLET BY MOUTH THREE TIMES A DAY NEEDED 2-0 7-05 00:00: 00 No 1 &lt 2022-0 6-24 00:00: 00 No TAKE 1 TABLET BY MOUTH EVERY DAY AT 8 2-0 6-24 00:00: 00 No &lt 2022-0 6-24 00:00: 00 No TAKE 1 TABLET BY MOUTH EVERY DAY AT 8 2-0 6-24 00:00: 00 No &lt 2022-0 6-24 00:00: 00 No TAKE 1 TABLET BY MOUTH EVERY DAY AT 8 2-0 6-24 00:00: 00 No &lt 2022-0 6-24 00:00: 00 No TAKE 1 TABLET BY MOUTH EVERY DAY AT 8 2-0 24 00:00: 00 No &lt 2022-0 6-24 00:00: 00 No TAKE 1 TABLET BY MOUTH EVERY DAY AT 8 2-0 24 00:00: 00 No &lt 2022-0 6-24 00:00: 00 No TAKE 1 TABLET BY MOUTH EVERY DAY AT 8 2-0 624 00:00: 00 No &lt 2022-0 624 00:00: 00 No TAKE 1 TABLET BY MOUTH EVERY DAY AT 8 2-0 24 00:00: 00 No &lt 2022-0 624 00:00: 00 No TAKE 1 TABLET BY MOUTH EVERY DAY AT 8 2-0 624 00:00: 00 No &lt 2022-0 624 00:00: 00 No TAKE 1 TABLET BY MOUTH EVERY DAY AT [facility] 2-0 24 00:00: 00 No TAKE 1 CAPSULE EVERY DAY AT 8AM AND 2 PM FOR ADD OR ADHD 2022-0 17 00:00: 00 No TAKE 1 CAPSULE EVERY DAY AT 8AM AND 2 PM FOR ADD OR ADHD 2022-0 617 00:00: 00 No TAKE 1 CAPSULE EVERY DAY AT 8AM AND 2 PM FOR ADD OR ADHD 2022-0 -17 00:00: 00 No TAKE 1 CAPSULE EVERY DAY AT 8AM AND 2 PM FOR ADD OR ADHD 2022-0 617 00:00: 00 No TAKE 1 CAPSULE EVERY DAY AT 8AM AND 2 PM FOR ADD OR ADHD 2022-0 17 00:00: 00 No TAKE 1 CAPSULE EVERY DAY AT 8AM AND 2 PM FOR ADD OR ADHD 2022-0 6-17 00:00: 00 No TAKE 1 CAPSULE EVERY DAY AT 8AM AND 2 PM FOR ADD OR ADHD 2022-0 -17 00:00: 00 No TAKE 1 CAPSULE EVERY DAY AT 8AM AND 2 PM FOR ADD OR ADHD 2022-0 17 00:00: 00 No TAKE 1 CAPSULE EVERY DAY AT 8AM AND 2 PM FOR ADD OR ADHD 2-0 617 00:00: 00 No lisinopril 10 mg tablet 2-0 6-10 00:00: 00 No 1mg cyclobenzap rine 5 mg tablet 2-0 610 00:00: 00 No 1mg ibuprofen 600 mg tablet 2-0 610 00:00: 00 No 1mg Dose Unknown 2-0 610 00:00: 00 No omeprazole 40 mg capsule,del ayed release 2-0 610 00:00: 00 No 1mg &lt 2022-0 6-10 00:00: 00 No &lt 2022-0 6-10 00:00: 00 No &lt 2022-0 6-10 00:00: 00 No INHALE 2 PUFFS BY MOUTH EVERY 4-6 HOURS NEEDED FOR WHEEZING 2-0 10 00:00: 00 No lisinopril 10 mg tablet 2-0 10 00:00: 00 No 1mg cyclobenzap rine 5 mg tablet 2021-0 6 00:00: 00 No 1mg Dose Unknown 2-0 6-10 00:00: 00 No Dose Unknown 2-0 10 00:00: 00 No omeprazole 40 mg capsule,del ayed release 2-0 610 00:00: 00 No 1mg &lt 2022-0 6-10 00:00: 00 No &lt 2022-0 6-10 00:00: 00 No &lt 2022-0 6-10 00:00: 00 No INHALE 2 PUFFS BY MOUTH EVERY 4-6 HOURS NEEDED FOR WHEEZING 2-0 6-10 00:00: 00 No lisinopril 10 mg tablet 2-0 6-10 00:00: 00 No 1mg cyclobenzap rine 5 mg tablet 2-0 6-10 00:00: 00 No 1mg ibuprofen 600 mg tablet 2-0 6-10 00:00: 00 No 1mg levothyroxi ne 150 mcg tablet 2-0 6-10 00:00: 00 No 1mcg omeprazole 40 mg capsule,del ayed release 2-0 6- 00:00: 00 No 1mg &lt 2022-0 6-10 00:00: 00 No &lt 2022-0 6-10 00:00: 00 No &lt 2022-0 6- 00:00: 00 No INHALE 2 PUFFS BY MOUTH EVERY 4-6 HOURS NEEDED FOR WHEEZING 2-0 6-10 00:00: 00 No lisinopril 10 mg tablet 2-0 10 00:00: 00 No 1mg cyclobenzap rine 5 mg tablet 2021-0 09-23 00:00: 00 No 1mg Dose Unknown 2-0 6- 00:00: 00 No Dose Unknown 2-0 6- 00:00: 00 No omeprazole 40 mg capsule,del ayed release 2021-0 09-23 00:00: 00 No 1mg &lt 2022-0 6- 00:00: 00 No &lt 2022-0 6-10 00:00: 00 No &lt 2022-0 6-10 00:00: 00 No INHALE 2 PUFFS BY MOUTH EVERY 4-6 HOURS NEEDED FOR WHEEZING 2-0 6- 00:00: 00 No lisinopril 10 mg tablet 2-0 6- 00:00: 00 No 1mg cyclobenzap rine 5 mg tablet 2-0 09-23 00:00: 00 No 1mg Dose Unknown 2-0 6-10 00:00: 00 No Dose Unknown 2-0 6-10 00:00: 00 No omeprazole 40 mg capsule,del ayed release 2-0 6- 00:00: 00 No 1mg &lt 2022-0 6-10 00:00: 00 No &lt 2022-0 6-10 00:00: 00 No &lt 2022-0 6-10 00:00: 00 No INHALE 2 PUFFS BY MOUTH EVERY 4-6 HOURS NEEDED FOR WHEEZING 2-0 6-10 00:00: 00 No Dose Unknown 2022-0 6-10 00:00: 00 No cyclobenzap rine 5 mg tablet 2-0 6-10 00:00: 00 No 1mg Dose Unknown 2-0 6-10 00:00: 00 No 50 Dose Unknown 2-0 6-10 00:00: 00 No omeprazole 40 mg capsule,del ayed release 2-0 6- 00:00: 00 No 1mg &lt 2022-0 6-10 00:00: 00 No &lt 2022-0 6-10 00:00: 00 No &lt 2022-0 6-10 00:00: 00 No INHALE 2 PUFFS BY MOUTH EVERY 4-6 HOURS NEEDED FOR WHEEZING 2-0 09-23 00:00: 00 No lisinopril 10 mg tablet 2-0 10 00:00: 00 No 1mg cyclobenzap rine 5 mg tablet 2-0 09-23 00:00: 00 No 1mg ibuprofen 600 mg tablet 2-0 09-23 00:00: 00 No 1mg levothyroxi ne 150 mcg tablet 2021-0 10 00:00: 00 No 1mcg omeprazole 40 mg capsule,del ayed release 2021-0 09-23 00:00: 00 No 1mg &lt 2022-0 10 00:00: 00 No &lt 2022-0 10 00:00: 00 No &lt 2022-0 610 00:00: 00 No INHALE 2 PUFFS BY MOUTH EVERY 4-6 HOURS NEEDED FOR WHEEZING 2-0 09-23 00:00: 00 No lisinopril 10 mg tablet 2-0 10 00:00: 00 No 1mg cyclobenzap rine 5 mg tablet 2-0 10 00:00: 00 No 1mg ibuprofen 600 mg tablet 2-0 10 00:00: 00 No 1mg levothyroxi ne 150 mcg tablet 2-0 10 00:00: 00 No 1mcg omeprazole 40 mg capsule,del ayed release 2-0 09-23 00:00: 00 No 1mg &lt 2022-0 6-10 00:00: 00 No &lt 2022-0 6-10 00:00: 00 No &lt 2022-0 6-10 00:00: 00 No INHALE 2 PUFFS BY MOUTH EVERY 4-6 HOURS NEEDED FOR WHEEZING 2022-0 6-10 00:00: 00 No lisinopril 10 mg tablet 2022-0 6-10 00:00: 00 No 1mg cyclobenzap rine 5 mg tablet 2-0 6-10 00:00: 00 No 1mg ibuprofen 600 mg tablet 2-0 6-10 00:00: 00 No 1mg Dose Unknown 2022-0 6-10 00:00: 00 No omeprazole 40 mg capsule,del ayed release 2-0 6-10 00:00: 00 No 1mg &lt 2022-0 6-10 00:00: 00 No &lt 2022-0 6-10 00:00: 00 No &lt 2022-0 6-10 00:00: 00 No INHALE 2 PUFFS BY MOUTH EVERY 4-6 HOURS NEEDED FOR WHEEZING 2-0 6-10 00:00: 00 No Dose Unknown 2022-0 4-16 00:00: 00 No Dose Unknown 2022-0 4-16 00:00: 00 No Dose Unknown 2022-0 4-16 00:00: 00 No Dose Unknown 2022-0 4-16 00:00: 00 No Dose Unknown 2022-0 4-16 00:00: 00 No Dose Unknown 2022-0 4-16 00:00: 00 No Dose Unknown 2022-0 4-16 00:00: 00 No Dose Unknown 2022-0 4-16 00:00: 00 No Dose Unknown 2022-0 4-16 00:00: 00 No Strattera 40 mg capsule 2022-0 4-15 00:00: 00 No 1mg Strattera 40 mg capsule 2022-0 4-15 00:00: 00 No 1mg Strattera 40 mg capsule 2022-0 4-15 00:00: 00 No 1mg Strattera 40 mg capsule 2022-0 4-15 00:00: 00 No 1mg Strattera 40 mg capsule 2022-0 4-15 00:00: 00 No 1mg Dose Unknown 2022-0 4-15 00:00: 00 No Strattera 40 mg capsule 2022-0 4-15 00:00: 00 No 1mg Strattera 40 mg capsule 2022-0 4-15 00:00: 00 No 1mg Strattera 40 mg capsule 2022-0 4-15 00:00: 00 No 1mg clonazepam 1 mg tablet 2022-0 4-08 00:00: 00 No 1mg Vyvanse 40 mg capsule 2022-0 4-08 00:00: 00 No 1mg Dose Unknown 2022-0 4-08 00:00: 00 No Dose Unknown 2022-0 4-08 00:00: 00 No Dose Unknown 2022-0 4-08 00:00: 00 No Dose Unknown 2022-0 4-08 00:00: 00 No Dose Unknown 2022-0 4-08 00:00: 00 No Dose Unknown 2022-0 4-08 00:00: 00 No clonazepam 1 mg tablet 2022-0 4-08 00:00: 00 No 1mg Vyvanse 40 mg capsule 2022-0 4-08 00:00: 00 No 1mg Dose Unknown 2022-0 4-08 00:00: 00 No Dose Unknown 2022-0 4-08 00:00: 00 No Dose Unknown 2022-0 4-08 00:00: 00 No Dose Unknown 2022-0 4-08 00:00: 00 No Dose Unknown 2022-0 4-08 00:00: 00 No Dose Unknown 2022-0 4-08 00:00: 00 No clonazepam 1 mg tablet 2022-0 4-08 00:00: 00 No 1mg Vyvanse 40 mg capsule 2022-0 4-08 00:00: 00 No 1mg Dose Unknown 2022-0 4-08 00:00: 00 No Dose Unknown 2022-0 4-08 00:00: 00 No Dose Unknown 2022-0 4-08 00:00: 00 No Dose Unknown 2022-0 4-08 00:00: 00 No Dose Unknown 2022-0 4-08 00:00: 00 No Dose Unknown 2022-0 4-08 00:00: 00 No clonazepam 1 mg tablet 2022-0 4-08 00:00: 00 No 1mg Vyvanse 40 mg capsule 2022-0 4-08 00:00: 00 No 1mg Dose Unknown 2022-0 4-08 00:00: 00 No Dose Unknown 2022-0 4-08 00:00: 00 No Dose Unknown 2022-0 4-08 00:00: 00 No Dose Unknown 2022-0 4-08 00:00: 00 No Dose Unknown 2022-0 4-08 00:00: 00 No Dose Unknown 2022-0 4-08 00:00: 00 No clonazepam 1 mg tablet 2022-0 4-08 00:00: 00 No 1mg Vyvanse 40 mg capsule 2022-0 4-08 00:00: 00 No 1mg Dose Unknown 2022-0 4-08 00:00: 00 No Dose Unknown 2022-0 4-08 00:00: 00 No Dose Unknown 2022-0 4-08 00:00: 00 No Dose Unknown 2022-0 4-08 00:00: 00 No Dose Unknown 2022-0 4-08 00:00: 00 No Dose Unknown 2022-0 4-08 00:00: 00 No clonazepam 1 mg tablet 2022-0 4-08 00:00: 00 No 1mg Dose Unknown 2022-0 4-08 00:00: 00 No Dose Unknown 2022-0 4-08 00:00: 00 No Dose Unknown 2022-0 4-08 00:00: 00 No Dose Unknown 2022-0 4-08 00:00: 00 No Dose Unknown 2022-0 4-08 00:00: 00 No Dose Unknown 2022-0 4-08 00:00: 00 No Dose Unknown 2022-0 4-08 00:00: 00 No clonazepam 1 mg tablet 2022-0 4-08 00:00: 00 No 1mg Vyvanse 40 mg capsule 2022-0 4-08 00:00: 00 No 1mg Dose Unknown 2022-0 4-08 00:00: 00 No Dose Unknown 2022-0 4-08 00:00: 00 No Dose Unknown 2022-0 4-08 00:00: 00 No Dose Unknown 2022-0 4-08 00:00: 00 No Dose Unknown 2022-0 4-08 00:00: 00 No Dose Unknown 2022-0 4-08 00:00: 00 No clonazepam 1 mg tablet 2022-0 4-08 00:00: 00 No 1mg Vyvanse 40 mg capsule 2022-0 4-08 00:00: 00 No 1mg Dose Unknown 2022-0 4-08 00:00: 00 No Dose Unknown 2022-0 4-08 00:00: 00 No Dose Unknown 2022-0 4-08 00:00: 00 No Dose Unknown 2022-0 4-08 00:00: 00 No Dose Unknown 2022-0 4-08 00:00: 00 No Dose Unknown 2022-0 4-08 00:00: 00 No clonazepam 1 mg tablet 2022-0 4-08 00:00: 00 No 1mg Vyvanse 40 mg capsule 2022-0 4-08 00:00: 00 No 1mg Dose Unknown 2022-0 4-08 00:00: 00 No Dose Unknown 2022-0 4-08 00:00: 00 No Dose Unknown 2022-0 4-08 00:00: 00 No Dose Unknown 2022-0 4-08 00:00: 00 No Dose Unknown 2022-0 4-08 00:00: 00 No Dose Unknown 2022-0 4-08 00:00: 00 No Dose Unknown 2022-0 3-23 00:00: 00 No Dose Unknown 2022-0 3-23 00:00: 00 No Dose Unknown 2022-0 3-23 00:00: 00 No Dose Unknown 2022-0 3-23 00:00: 00 No Dose Unknown 2022-0 3-23 00:00: 00 No Dose Unknown 2022-0 3-23 00:00: 00 No Dose Unknown 2022-0 3-23 00:00: 00 No Dose Unknown 2022-0 3-23 00:00: 00 No Dose Unknown 2022-0 3-23 00:00: 00 No Dose Unknown 2022-0 3-23 00:00: 00 No Dose Unknown 2022-0 3-23 00:00: 00 No Dose Unknown 2022-0 3-23 00:00: 00 No Dose Unknown 2022-0 3-23 00:00: 00 No Dose Unknown 2022-0 3-23 00:00: 00 No Dose Unknown 2022-0 3-23 00:00: 00 No Dose Unknown 2022-0 3-23 00:00: 00 No Dose Unknown 2022-0 3-23 00:00: 00 No Dose Unknown 2022-0 3-23 00:00: 00 No Dose Unknown 2022-0 3-23 00:00: 00 No Dose Unknown 2022-0 3-23 00:00: 00 No Dose Unknown 2022-0 3-23 00:00: 00 No Dose Unknown 2022-0 3-23 00:00: 00 No Dose Unknown 2022-0 3-23 00:00: 00 No Dose Unknown 2022-0 3-23 00:00: 00 No Dose Unknown 2022-0 3-23 00:00: 00 No Dose Unknown 2022-0 3-23 00:00: 00 No Dose Unknown 2022-0 3-23 00:00: 00 No Dose Unknown 2022-0 3-23 00:00: 00 No Dose Unknown 2022-0 3-23 00:00: 00 No Dose Unknown 2022-0 3-23 00:00: 00 No Dose Unknown 2022-0 3-23 00:00: 00 No Dose Unknown 2022-0 3-23 00:00: 00 No Dose Unknown 2022-0 3-23 00:00: 00 No Dose Unknown 2022-0 3-23 00:00: 00 No Dose Unknown 2022-0 3-23 00:00: 00 No Dose Unknown 2022-0 3-23 00:00: 00 No Dose Unknown 2022-0 3-23 00:00: 00 No Dose Unknown 2022-0 3-23 00:00: 00 No Dose Unknown 2022-0 3-23 00:00: 00 No Dose Unknown 2022-0 3-23 00:00: 00 No Dose Unknown 2022-0 3-23 00:00: 00 No Dose Unknown 2022-0 3-23 00:00: 00 No Dose Unknown 2022-0 3-23 00:00: 00 No Dose Unknown 2022-0 3-23 00:00: 00 No Dose Unknown 2022-0 3-23 00:00: 00 No Dose Unknown 2022-0 3-23 00:00: 00 No Dose Unknown 2022-0 3-23 00:00: 00 No Dose Unknown 2022-0 3-23 00:00: 00 No Dose Unknown 2022-0 3-23 00:00: 00 No Dose Unknown 2022-0 3-23 00:00: 00 No Dose Unknown 2022-0 3-23 00:00: 00 No Dose Unknown 2022-0 3-23 00:00: 00 No Dose Unknown 2022-0 3-23 00:00: 00 No Dose Unknown 2022-0 3-23 00:00: 00 No Dose Unknown 2022-0 3-23 00:00: 00 No Dose Unknown 2022-0 3-23 00:00: 00 No Dose Unknown 2022-0 3-23 00:00: 00 No Dose Unknown 2022-0 3-23 00:00: 00 No Dose Unknown 2022-0 3-23 00:00: 00 No Dose Unknown 2022-0 3-23 00:00: 00 No Dose Unknown 2022-0 3-23 00:00: 00 No Dose Unknown 2022-0 3-23 00:00: 00 No Dose Unknown 2022-0 3-23 00:00: 00 No Dose Unknown 2022-0 3-23 00:00: 00 No Dose Unknown 2022-0 3-23 00:00: 00 No Dose Unknown 2022-0 3-23 00:00: 00 No Dose Unknown 2022-0 3-23 00:00: 00 No Dose Unknown 2022-0 3-23 00:00: 00 No Dose Unknown 2022-0 3-23 00:00: 00 No Dose Unknown 2022-0 3-23 00:00: 00 No Dose Unknown 2022-0 3-23 00:00: 00 No Dose Unknown 2022-0 3-23 00:00: 00 No Dose Unknown 2022-0 3-23 00:00: 00 No Dose Unknown 2022-0 3-23 00:00: 00 No Dose Unknown 2022-0 3-23 00:00: 00 No Dose Unknown 2022-0 3-23 00:00: 00 No Dose Unknown 2022-0 3-23 00:00: 00 No Dose Unknown 2022-0 3-23 00:00: 00 No Dose Unknown 2022-0 3-23 00:00: 00 No Dose Unknown 2022-0 3-23 00:00: 00 No Dose Unknown 2022-0 3-23 00:00: 00 No Dose Unknown 2022-0 3-23 00:00: 00 No Dose Unknown 2022-0 3-23 00:00: 00 No Dose Unknown 2022-0 3-23 00:00: 00 No Dose Unknown 2022-0 3-23 00:00: 00 No Dose Unknown 2022-0 3-23 00:00: 00 No Dose Unknown 2022-0 3-23 00:00: 00 No Dose Unknown 2022-0 3-23 00:00: 00 No Dose Unknown 2022-0 3-23 00:00: 00 No Dose Unknown 2022-0 3-23 00:00: 00 No Dose Unknown 2022-0 3-23 00:00: 00 No Dose Unknown 2022-0 3-23 00:00: 00 No Dose Unknown 2022-0 3-23 00:00: 00 No Dose Unknown 2022-0 3-23 00:00: 00 No Dose Unknown 2022-0 3-23 00:00: 00 No Dose Unknown 2022-0 3-23 00:00: 00 No Dose Unknown 2022-0 3-23 00:00: 00 No Dose Unknown 2022-0 3-23 00:00: 00 No Dose Unknown 2022-0 3-23 00:00: 00 No Dose Unknown 2022-0 3-23 00:00: 00 No Dose Unknown 2022-0 3-23 00:00: 00 No Dose Unknown 2022-0 3-23 00:00: 00 No Dose Unknown 2022-0 3-23 00:00: 00 No Dose Unknown 2022-0 3-23 00:00: 00 No Dose Unknown 2022-0 3-23 00:00: 00 No Dose Unknown 2022-0 3-23 00:00: 00 No Dose Unknown 2022-0 3-23 00:00: 00 No Dose Unknown 2022-0 3-23 00:00: 00 No Dose Unknown 2022-0 3-23 00:00: 00 No Dose Unknown 2022-0 3-23 00:00: 00 No Dose Unknown 2022-0 3-23 00:00: 00 No Dose Unknown 2022-0 3-23 00:00: 00 No Dose Unknown 2022-0 3-23 00:00: 00 No Dose Unknown 2022-0 3-23 00:00: 00 No Dose Unknown 2022-0 3-23 00:00: 00 No Dose Unknown 2022-0 3-23 00:00: 00 No Dose Unknown 2022-0 3-23 00:00: 00 No Dose Unknown 2022-0 3-23 00:00: 00 No Dose Unknown 2022-0 3-23 00:00: 00 No Dose Unknown 2022-0 3-23 00:00: 00 No Dose Unknown 2022-0 3-23 00:00: 00 No Dose Unknown 2022-0 3-23 00:00: 00 No Dose Unknown 2022-0 3-23 00:00: 00 No Dose Unknown 2022-0 3-23 00:00: 00 No Dose Unknown 2022-0 3-23 00:00: 00 No Dose Unknown 2022-0 3-23 00:00: 00 No Dose Unknown 2022-0 3-23 00:00: 00 No Dose Unknown 2022-0 3-23 00:00: 00 No Dose Unknown 2022-0 3-23 00:00: 00 No Dose Unknown 2022-0 3-23 00:00: 00 No Dose Unknown 2022-0 3-23 00:00: 00 No Dose Unknown 2022-0 3-23 00:00: 00 No Dose Unknown 2022-0 3-23 00:00: 00 No Dose Unknown 2022-0 3-23 00:00: 00 No Dose Unknown 2022-0 3-23 00:00: 00 No Dose Unknown 2022-0 3-23 00:00: 00 No Dose Unknown 2022-0 3-23 00:00: 00 No Dose Unknown 2022-0 3-23 00:00: 00 No Dose Unknown 2022-0 3-23 00:00: 00 No Dose Unknown 2022-0 3-23 00:00: 00 No Dose Unknown 2022-0 3-23 00:00: 00 No Dose Unknown 2022-0 3-23 00:00: 00 No Dose Unknown 2022-0 3-23 00:00: 00 No Dose Unknown 2022-0 3-23 00:00: 00 No Dose Unknown 2022-0 3-23 00:00: 00 No Dose Unknown 2022-0 3-23 00:00: 00 No Dose Unknown 2022-0 3-23 00:00: 00 No Dose Unknown 2022-0 3-23 00:00: 00 No Dose Unknown 2022-0 3-23 00:00: 00 No Dose Unknown 2022-0 3-23 00:00: 00 No Dose Unknown 2022-0 3-23 00:00: 00 No Dose Unknown 2022-0 3-23 00:00: 00 No Dose Unknown 2022-0 3-23 00:00: 00 No Dose Unknown 2022-0 3-23 00:00: 00 No Dose Unknown 2022-0 3-23 00:00: 00 No Dose Unknown 2022-0 3-23 00:00: 00 No Dose Unknown 2022-0 3-23 00:00: 00 No Dose Unknown 2022-0 3-23 00:00: 00 No Dose Unknown 2022-0 3-23 00:00: 00 No Dose Unknown 2022-0 3-23 00:00: 00 No Dose Unknown 2022-0 3-23 00:00: 00 No Dose Unknown 2022-0 3-23 00:00: 00 No Dose Unknown 2022-0 3-23 00:00: 00 No Dose Unknown 2022-0 3-23 00:00: 00 No Dose Unknown 2022-0 3-23 00:00: 00 No Dose Unknown 2022-0 3-23 00:00: 00 No Dose Unknown 2022-0 3-23 00:00: 00 No Dose Unknown 2022-0 3-23 00:00: 00 No Dose Unknown 2022-0 3-23 00:00: 00 No Dose Unknown 2022-0 3-23 00:00: 00 No Dose Unknown 2022-0 3-23 00:00: 00 No Dose Unknown 2022-0 3-23 00:00: 00 No Dose Unknown 2022-0 3-23 00:00: 00 No Dose Unknown 2022-0 3-23 00:00: 00 No Dose Unknown 2022-0 3-23 00:00: 00 No Dose Unknown 2022-0 3-23 00:00: 00 No Dose Unknown 2022-0 3-23 00:00: 00 No Dose Unknown 2022-0 3-23 00:00: 00 No Dose Unknown 2022-0 3-23 00:00: 00 No Dose Unknown 2022-0 3-23 00:00: 00 No Dose Unknown 2022-0 3-23 00:00: 00 No Dose Unknown 2022-0 3-23 00:00: 00 No Dose Unknown 2022-0 3-23 00:00: 00 No Dose Unknown 2022-0 3-23 00:00: 00 No Dose Unknown 2022-0 3-23 00:00: 00 No Dose Unknown 2022-0 3-23 00:00: 00 No Dose Unknown 2022-0 3-23 00:00: 00 No Dose Unknown 2022-0 3-23 00:00: 00 No Dose Unknown 2022-0 3-23 00:00: 00 No Dose Unknown 2022-0 3-23 00:00: 00 No Dose Unknown 2022-0 3-23 00:00: 00 No Dose Unknown 2022-0 3-23 00:00: 00 No Dose Unknown 2022-0 3-23 00:00: 00 No Dose Unknown 2022-0 3-23 00:00: 00 No Dose Unknown 2022-0 3-23 00:00: 00 No Dose Unknown 2022-0 3-23 00:00: 00 No Dose Unknown 2022-0 3-23 00:00: 00 No Dose Unknown 2022-0 3-23 00:00: 00 No Dose Unknown 2022-0 3-16 00:00: 00 No Dose Unknown 2022-0 3-16 00:00: 00 No Dose Unknown 2022-0 3-16 00:00: 00 No Dose Unknown 2022-0 3-16 00:00: 00 No Dose Unknown 2022-0 3-16 00:00: 00 No Dose Unknown 2022-0 3-16 00:00: 00 No Dose Unknown 2022-0 3-16 00:00: 00 No Dose Unknown 2022-0 3-16 00:00: 00 No Dose Unknown 2022-0 3-16 00:00: 00 No Dose Unknown 2022-0 3-16 00:00: 00 No Dose Unknown 2022-0 3-16 00:00: 00 No Dose Unknown 2022-0 3-16 00:00: 00 No Dose Unknown 2022-0 3-16 00:00: 00 No Dose Unknown 2022-0 3-16 00:00: 00 No Dose Unknown 2022-0 3-16 00:00: 00 No Dose Unknown 2022-0 3-16 00:00: 00 No Dose Unknown 2022-0 3-16 00:00: 00 No Dose Unknown 2022-0 3-16 00:00: 00 No Dose Unknown 2022-0 3-16 00:00: 00 No Dose Unknown 2022-0 3-16 00:00: 00 No Dose Unknown 2022-0 3-16 00:00: 00 No Dose Unknown 2022-0 3-16 00:00: 00 No Dose Unknown 2022-0 3-16 00:00: 00 No Dose Unknown 2022-0 3-16 00:00: 00 No Dose Unknown 2022-0 3-16 00:00: 00 No Dose Unknown 2022-0 3-16 00:00: 00 No Dose Unknown 2022-0 3-16 00:00: 00 No Dose Unknown 2022-0 3-16 00:00: 00 No Dose Unknown 2022-0 3-16 00:00: 00 No Dose Unknown 2022-0 3-16 00:00: 00 No Dose Unknown 2022-0 3-16 00:00: 00 No Dose Unknown 2022-0 3-16 00:00: 00 No Dose Unknown 2022-0 3-16 00:00: 00 No Dose Unknown 2022-0 3-16 00:00: 00 No Dose Unknown 2022-0 3-16 00:00: 00 No Dose Unknown 2022-0 3-16 00:00: 00 No Dose Unknown 2022-0 3-16 00:00: 00 No Dose Unknown 2022-0 3-16 00:00: 00 No Dose Unknown 2022-0 3-16 00:00: 00 No Dose Unknown 2022-0 3-16 00:00: 00 No Dose Unknown 2022-0 3-16 00:00: 00 No Dose Unknown 2022-0 3-16 00:00: 00 No Dose Unknown 2022-0 3-16 00:00: 00 No Dose Unknown 2022-0 3-16 00:00: 00 No Dose Unknown 2022-0 3-16 00:00: 00 No Dose Unknown 2022-0 3-16 00:00: 00 No Dose Unknown 2022-0 3-16 00:00: 00 No Dose Unknown 2022-0 3-16 00:00: 00 No Dose Unknown 2022-0 3-16 00:00: 00 No Dose Unknown 2022-0 3-16 00:00: 00 No Dose Unknown 2022-0 3-16 00:00: 00 No Dose Unknown 2022-0 3-16 00:00: 00 No Dose Unknown 2022-0 3-16 00:00: 00 No Dose Unknown 2022-0 3-16 00:00: 00 No Dose Unknown 2022-0 3-16 00:00: 00 No Dose Unknown 2022-0 3-16 00:00: 00 No Dose Unknown 2022-0 3-16 00:00: 00 No Dose Unknown 2022-0 3-16 00:00: 00 No Dose Unknown 2022-0 3-16 00:00: 00 No Dose Unknown 2022-0 3-16 00:00: 00 No Dose Unknown 2022-0 3-16 00:00: 00 No Dose Unknown 2022-0 3-16 00:00: 00 No Dose Unknown 2022-0 3-16 00:00: 00 No Dose Unknown 2022-0 3-16 00:00: 00 No Dose Unknown 2022-0 3-16 00:00: 00 No Dose Unknown 2022-0 3-16 00:00: 00 No Dose Unknown 2022-0 3-16 00:00: 00 No Dose Unknown 2022-0 3-16 00:00: 00 No Dose Unknown 2022-0 3-16 00:00: 00 No Dose Unknown 2022-0 3-16 00:00: 00 No Dose Unknown 2022-0 3-16 00:00: 00 No Dose Unknown 2022-0 3-16 00:00: 00 No Dose Unknown 2022-0 3-16 00:00: 00 No Dose Unknown 2022-0 3-16 00:00: 00 No Dose Unknown 2022-0 3-16 00:00: 00 No Dose Unknown 2022-0 3-16 00:00: 00 No Dose Unknown 2022-0 3-16 00:00: 00 No Dose Unknown 2022-0 3-16 00:00: 00 No Dose Unknown 2022-0 3-16 00:00: 00 No Dose Unknown 2022-0 3-16 00:00: 00 No Dose Unknown 2022-0 3-16 00:00: 00 No Dose Unknown 2022-0 3-16 00:00: 00 No Dose Unknown 2022-0 3-16 00:00: 00 No Dose Unknown 2022-0 3-16 00:00: 00 No Dose Unknown 2022-0 3-16 00:00: 00 No Dose Unknown 2022-0 3-16 00:00: 00 No Dose Unknown 2022-0 3-16 00:00: 00 No Dose Unknown 2022-0 3-16 00:00: 00 No Dose Unknown 2022-0 3-16 00:00: 00 No Dose Unknown 2022-0 3-16 00:00: 00 No Dose Unknown 2022-0 3-16 00:00: 00 No Dose Unknown 2022-0 3-16 00:00: 00 No Dose Unknown 2022-0 3-16 00:00: 00 No Dose Unknown 2022-0 3-16 00:00: 00 No Dose Unknown 2022-0 3-16 00:00: 00 No Dose Unknown 2022-0 3-16 00:00: 00 No Dose Unknown 2022-0 3-16 00:00: 00 No Dose Unknown 2022-0 3-16 00:00: 00 No Dose Unknown 2-0 3-16 00:00: 00 No Prozac 20 mg capsule 2-0 2-15 00:00: 00 No 3mg lithium carbonate 300 mg capsule 2-0 2-15 00:00: 00 No 1mg buspirone 15 mg tablet 2-0 2-15 00:00: 00 No 1mg Seroquel 400 mg tablet 2-0 2-15 00:00: 00 No 5mg benztropine 1 mg tablet 2-0 2-15 00:00: 00 No 1mg Prozac 20 mg capsule 2-0 2-15 00:00: 00 No 3mg lithium carbonate 300 mg capsule 2-0 2-15 00:00: 00 No 1mg Dose Unknown 2-0 2-15 00:00: 00 No Seroquel 400 mg tablet 2-0 2-15 00:00: 00 No 5mg benztropine 1 mg tablet 2-0 2-15 00:00: 00 No 1mg Prozac 20 mg capsule 2-0 2-15 00:00: 00 No 3mg lithium carbonate 300 mg capsule 2-0 2-15 00:00: 00 No 1mg Dose Unknown 2022-0 2-15 00:00: 00 No Seroquel 400 mg tablet 2022-0 2-15 00:00: 00 No 5mg benztropine 1 mg tablet 2022-0 2-15 00:00: 00 No 1mg Prozac 20 mg capsule 2-0 2-15 00:00: 00 No 3mg lithium carbonate 300 mg capsule 2022-0 2-15 00:00: 00 No 1mg Dose Unknown 2022-0 2-15 00:00: 00 No Seroquel 400 mg tablet 2-0 2-15 00:00: 00 No 5mg benztropine 1 mg tablet 2-0 2-15 00:00: 00 No 1mg Dose Unknown 2-0 2-15 00:00: 00 No lithium carbonate 300 mg capsule 2-0 2-15 00:00: 00 No 1mg Dose Unknown 2-0 2-15 00:00: 00 No Dose Unknown 2-0 2-15 00:00: 00 No Dose Unknown 2-0 2-15 00:00: 00 No lithium carbonate 300 mg capsule 2-0 2-15 00:00: 00 No 1mg Dose Unknown 2-0 2-15 00:00: 00 No buspirone 15 mg tablet 2-0 2-15 00:00: 00 No 1mg Seroquel 400 mg tablet 2-0 2-15 00:00: 00 No 5mg benztropine 1 mg tablet 2-0 2-15 00:00: 00 No 1mg Prozac 20 mg capsule 2-0 2-15 00:00: 00 No 3mg lithium carbonate 300 mg capsule 2-0 2-15 00:00: 00 No 1mg buspirone 15 mg tablet 2-0 2-15 00:00: 00 No 1mg Seroquel 400 mg tablet 2-0 2-15 00:00: 00 No 5mg benztropine 1 mg tablet 2-0 2-15 00:00: 00 No 1mg Prozac 20 mg capsule 2-0 2-15 00:00: 00 No 3mg lithium carbonate 300 mg capsule 2-0 2-15 00:00: 00 No 1mg buspirone 15 mg tablet 2-0 2-15 00:00: 00 No 1mg Seroquel 400 mg tablet 2-0 2-15 00:00: 00 No 5mg benztropine 1 mg tablet 2-0 2-15 00:00: 00 No 1mg Prozac 20 mg capsule 2-0 2-15 00:00: 00 No 3mg lithium carbonate 300 mg capsule 2021-0 2-15 00:00: 00 No 1mg buspirone 15 mg tablet 0 2-15 00:00: 00 No 1mg Seroquel 400 mg tablet 0 2-15 00:00: 00 No 5mg benztropine 1 mg tablet 0 2-15 00:00: 00 No 1mg lisinopril 10 mg tablet 0 2- 00:00: 00 No 1mg omeprazole 40 mg capsule,del ayed release 0 2- 00:00: 00 No 1mg lisinopril 10 mg tablet 0 2- 00:00: 00 No 1mg omeprazole 40 mg capsule,del ayed release 0 2- 00:00: 00 No 1mg lisinopril 10 mg tablet 0 2- 00:00: 00 No 1mg omeprazole 40 mg capsule,del ayed release 0 2- 00:00: 00 No 1mg lisinopril 10 mg tablet 0 2- 00:00: 00 No 1mg omeprazole 40 mg capsule,del ayed release 0 2- 00:00: 00 No 1mg Dose Unknown 0 2- 00:00: 00 No omeprazole 40 mg capsule,del ayed release 0 2- 00:00: 00 No 1mg lisinopril 10 mg tablet 0 2- 00:00: 00 No 1mg omeprazole 40 mg capsule,del ayed release 0 2- 00:00: 00 No 1mg lisinopril 10 mg tablet 0 2- 00:00: 00 No 1mg omeprazole 40 mg capsule,del ayed release 0 2- 00:00: 00 No 1mg lisinopril 10 mg tablet 0 2- 00:00: 00 No 1mg omeprazole 40 mg capsule,del ayed release 0 2- 00:00: 00 No 1mg lisinopril 10 mg tablet 2021-0 2- 00:00: 00 No 1mg omeprazole 40 mg capsule,del ayed release 0 2- 00:00: 00 No 1mg trazodone 50 mg tablet 2021-0 05-15 00:00: 00 No 12mg trazodone 50 mg tablet 0 05-15 00:00: 00 No 12mg trazodone 50 mg tablet 0 05-15 00:00: 00 No 12mg trazodone 50 mg tablet 0 05-15 00:00: 00 No 12mg Dose Unknown 0 05-15 00:00: 00 No trazodone 50 mg tablet 0 05-15 00:00: 00 No 12mg trazodone 50 mg tablet 0 05-15 00:00: 00 No 12mg trazodone 50 mg tablet 0 05-15 00:00: 00 No 12mg trazodone 50 mg tablet 0 05-15 00:00: 00 No 12mg buspirone 15 mg tablet 0 05-05 00:00: 00 No 1mg Seroquel 400 mg tablet 2021-0 05-05 00:00: 00 No 5mg Prozac 20 mg capsule 2021-0 20 00:00: 00 No 3mg lithium carbonate 300 mg capsule 2021-0 1-20 00:00: 00 No 1mg buspirone 15 mg tablet 2021-0 20 00:00: 00 No 1mg Seroquel 400 mg tablet 2021-0 20 00:00: 00 No 5mg Prozac 20 mg capsule 2021-0 1-20 00:00: 00 No 3mg lithium carbonate 300 mg capsule 2021-0 1-20 00:00: 00 No 1mg buspirone 15 mg tablet 2021-0 20 00:00: 00 No 1mg Seroquel 400 mg tablet 2021-0 1-20 00:00: 00 No 5mg Prozac 20 mg capsule 2021-0 1-20 00:00: 00 No 3mg lithium carbonate 300 mg capsule 2021-0 -20 00:00: 00 No 1mg buspirone 15 mg tablet 2021-0 20 00:00: 00 No 1mg Seroquel 400 mg tablet 2021-0 1-20 00:00: 00 No 5mg Prozac 20 mg capsule 2021-0 1-20 00:00: 00 No 3mg lithium carbonate 300 mg capsule 2021-0 1-20 00:00: 00 No 1mg buspirone 15 mg tablet 2021-0 1-20 00:00: 00 No 1mg Seroquel 400 mg tablet 2021-0 1-20 00:00: 00 No 5mg Prozac 20 mg capsule 2021-0 1-20 00:00: 00 No 3mg lithium carbonate 300 mg capsule 2021-0 1-20 00:00: 00 No 1mg buspirone 15 mg tablet 2021-0 1-20 00:00: 00 No 1mg Seroquel 400 mg tablet 2021-0 1-20 00:00: 00 No 5mg Prozac 20 mg capsule 2021-0 1-20 00:00: 00 No 3mg lithium carbonate 300 mg capsule 2021-0 1-20 00:00: 00 No 1mg buspirone 15 mg tablet 2021-0 1-20 00:00: 00 No 1mg Seroquel 400 mg tablet 2021-0 1-20 00:00: 00 No 5mg Prozac 20 mg capsule 2021-0 1-20 00:00: 00 No 3mg lithium carbonate 300 mg capsule 2021-0 1-20 00:00: 00 No 1mg buspirone 15 mg tablet 2021-0 1-20 00:00: 00 No 1mg Seroquel 400 mg tablet 2021-0 1-20 00:00: 00 No 5mg Prozac 20 mg capsule 2021-0 1-20 00:00: 00 No 3mg lithium carbonate 300 mg capsule 2021-0 1-20 00:00: 00 No 1mg buspirone 15 mg tablet 2021-0 1-20 00:00: 00 No 1mg Seroquel 400 mg tablet 2021-0 1-20 00:00: 00 No 5mg Prozac 20 mg capsule 2021-0 1-20 00:00: 00 No 3mg lithium carbonate 300 mg capsule 2021-0 1-20 00:00: 00 No 1mg ibuprofen 600 mg tablet 2020-1 2-31 00:00: 00 No 1mg cyclobenzap rine 7.5 mg tablet 2020-1 2- 00:00: 00 No 1mg Dose Unknown 2020-04 2 00:00: 00 No Dose Unknown 2020-04 2 00:00: 00 No cyclobenzap rine 7.5 mg tablet 2020-04 2 00:00: 00 No 1mg Dose Unknown 2020-04 2 00:00: 00 No Dose Unknown 2020-04 2 00:00: 00 No cyclobenzap rine 7.5 mg tablet 2020-04 2 00:00: 00 No 1mg Dose Unknown 2020-04 2 00:00: 00 No Dose Unknown 2020-04 2 00:00: 00 No Dose Unknown 2020-04 2 00:00: 00 No Dose Unknown 2020-04 2 00:00: 00 No Dose Unknown 2020-04 2 00:00: 00 No Dose Unknown 2020-04 00:00: 00 No Dose Unknown 2020-04 2 00:00: 00 No 50 ibuprofen 600 mg tablet 2020-04 2 00:00: 00 No 1mg cyclobenzap rine 7.5 mg tablet 2020-04 2 00:00: 00 No 1mg levothyroxi ne 150 mcg tablet 2020-04 2 00:00: 00 No 1mcg ibuprofen 600 mg tablet 2020-04 2 00:00: 00 No 1mg cyclobenzap rine 7.5 mg tablet 2020-04 2 00:00: 00 No 1mg levothyroxi ne 150 mcg tablet 2020-04 2 00:00: 00 No 1mcg ibuprofen 600 mg tablet 2020-04 2 00:00: 00 No 1mg cyclobenzap rine 7.5 mg tablet 2020-04 2 00:00: 00 No 1mg Dose Unknown 2020-04 2 00:00: 00 No ibuprofen 600 mg tablet 2020-04 2 00:00: 00 No 1mg cyclobenzap rine 7.5 mg tablet 2020-04 2 00:00: 00 No 1mg levothyroxi ne 150 mcg tablet 2020-04 2- 00:00: 00 No 1mcg ibuprofen 600 mg tablet 2020-04 2- 00:00: 00 No 1mg cyclobenzap rine 7.5 mg tablet 2020-04 2-16 00:00: 00 No 1mg ibuprofen 600 mg tablet 2020-04 2-16 00:00: 00 No 1mg cyclobenzap rine 7.5 mg tablet 2020-04 2-16 00:00: 00 No 1mg ibuprofen 600 mg tablet 2020-04 2-16 00:00: 00 No 1mg cyclobenzap rine 7.5 mg tablet 2020-04 2-16 00:00: 00 No 1mg ibuprofen 600 mg tablet 2020-04 2-16 00:00: 00 No 1mg cyclobenzap rine 7.5 mg tablet 2020-04 2-16 00:00: 00 No 1mg ibuprofen 600 mg tablet 2020-04 2-16 00:00: 00 No 1mg cyclobenzap rine 7.5 mg tablet 2020-04 2-16 00:00: 00 No 1mg ibuprofen 600 mg tablet 2020-04 2-16 00:00: 00 No 1mg cyclobenzap rine 7.5 mg tablet 2020-04 2-16 00:00: 00 No 1mg ibuprofen 600 mg tablet 2020-04 2-16 00:00: 00 No 1mg cyclobenzap rine 7.5 mg tablet 2020-04 2-16 00:00: 00 No 1mg ibuprofen 600 mg tablet 2020-04 2-16 00:00: 00 No 1mg cyclobenzap rine 7.5 mg tablet 2020-04 2-16 00:00: 00 No 1mg ibuprofen 600 mg tablet 2020-04 2-16 00:00: 00 No 1mg cyclobenzap rine 7.5 mg tablet 2020-04 2-16 00:00: 00 No 1mg sumatriptan 50 mg tablet 2020-04 2-10 00:00: 00 No 1mg sumatriptan 50 mg tablet 2020-04 2-10 00:00: 00 No 1mg sumatriptan 50 mg tablet 2020-04 2-10 00:00: 00 No 1mg sumatriptan 50 mg tablet 2020-04 2-10 00:00: 00 No 1mg Dose Unknown 2020-04 2-10 00:00: 00 No sumatriptan 50 mg tablet 2020-04 2-10 00:00: 00 No 1mg sumatriptan 50 mg tablet 2020-04 2- 00:00: 00 No 1mg sumatriptan 50 mg tablet 2020-04 2- 00:00: 00 No 1mg sumatriptan 50 mg tablet 2020-04 2- 00:00: 00 No 1mg Dose Unknown 2020-04 2- 00:00: 00 No Seroquel 400 mg tablet 2020-04 2- 00:00: 00 No 5mg Prozac 20 mg capsule 2020-04 2- 00:00: 00 No 3mg lithium carbonate 300 mg capsule 2020-04 2- 00:00: 00 No 1mg Dose Unknown 2020-04 2- 00:00: 00 No Seroquel 400 mg tablet 2020-04 2- 00:00: 00 No 5mg Prozac 20 mg capsule 2020-04 2- 00:00: 00 No 3mg lithium carbonate 300 mg capsule 2020-04 2- 00:00: 00 No 1mg Dose Unknown 2020-04 2- 00:00: 00 No Seroquel 400 mg tablet 2020-04 2- 00:00: 00 No 5mg Prozac 20 mg capsule 2020-04 2- 00:00: 00 No 3mg lithium carbonate 300 mg capsule 2020-04 2- 00:00: 00 No 1mg Dose Unknown 2020-04 2- 00:00: 00 No Seroquel 400 mg tablet 2020-04 2- 00:00: 00 No 5mg Prozac 20 mg capsule 2020-04 2- 00:00: 00 No 3mg lithium carbonate 300 mg capsule 2020-04 2- 00:00: 00 No 1mg Dose Unknown 2020-04 2-08 00:00: 00 No Seroquel 400 mg tablet 2020-04 2-08 00:00: 00 No 5mg Prozac 20 mg capsule 2020-04 2-08 00:00: 00 No 3mg lithium carbonate 300 mg capsule 2020-04 2- 00:00: 00 No 1mg Dose Unknown 2020-04 2-08 00:00: 00 No Seroquel 400 mg tablet 2020-04 2-08 00:00: 00 No 5mg Prozac 20 mg capsule 2020-04 2-08 00:00: 00 No 3mg lithium carbonate 300 mg capsule 2020-04 2- 00:00: 00 No 1mg Dose Unknown 2020-04 2- 00:00: 00 No Seroquel 400 mg tablet 2020-04 2- 00:00: 00 No 5mg Prozac 20 mg capsule 2020-04 2- 00:00: 00 No 3mg lithium carbonate 300 mg capsule 2020-04 2- 00:00: 00 No 1mg Dose Unknown 2020-04 2- 00:00: 00 No Seroquel 400 mg tablet 2020-04 2 00:00: 00 No 5mg Prozac 20 mg capsule 2020-04 2- 00:00: 00 No 3mg lithium carbonate 300 mg capsule 2020-04 2- 00:00: 00 No 1mg Dose Unknown 2020-04 2 00:00: 00 No Seroquel 400 mg tablet 2020-04 2- 00:00: 00 No 5mg Prozac 20 mg capsule 2020-04 2 00:00: 00 No 3mg lithium carbonate 300 mg capsule 2020-04 2 00:00: 00 No 1mg Dose Unknown 2020-04 2- 00:00: 00 No gemfibrozil 600 mg tablet 2020-04 2 00:00: 00 No 1mg Dose Unknown 2020-04 2 00:00: 00 No levothyroxi ne 150 mcg tablet 2020-04 2- 00:00: 00 No 1mcg Dose Unknown 2020-04 2- 00:00: 00 No gabapentin 300 mg capsule 2020-04 2- 00:00: 00 No 1mg Dose Unknown 2020-04 2- 00:00: 00 No gemfibrozil 600 mg tablet 2020-04 2- 00:00: 00 No 1mg Dose Unknown 2020-04 2- 00:00: 00 No levothyroxi ne 150 mcg tablet 2020-04 2- 00:00: 00 No 1mcg Dose Unknown 2020-04 2- 00:00: 00 No gabapentin 300 mg capsule 2020-04 2- 00:00: 00 No 1mg Dose Unknown 2020-04 2 00:00: 00 No gemfibrozil 600 mg tablet 2020-04 2 00:00: 00 No 1mg Dose Unknown 2020-04 2 00:00: 00 No levothyroxi ne 150 mcg tablet 2020-04 2 00:00: 00 No 1mcg Dose Unknown 2020-04 2 00:00: 00 No gabapentin 300 mg capsule 2020-04 2 00:00: 00 No 1mg Dose Unknown 2020-04 2 00:00: 00 No gemfibrozil 600 mg tablet 2020-04 2 00:00: 00 No 1mg Dose Unknown 2020-04 00:00: 00 No levothyroxi ne 150 mcg tablet 2020-04 00:00: 00 No 1mcg Dose Unknown 2020-04 00:00: 00 No gabapentin 300 mg capsule 2020-04 00:00: 00 No 1mg Dose Unknown 2020-04 00:00: 00 No levothyroxi ne 150 mcg tablet 2020-04 00:00: 00 No 1mcg Dose Unknown 2020-04 00:00: 00 No Dose Unknown 2020-04 2 00:00: 00 No Dose Unknown 2020-04 00:00: 00 No gabapentin 300 mg capsule 2020-04 00:00: 00 No 1mg amlodipine 5 mg tablet 2020-04 2 00:00: 00 No 1mg gemfibrozil 600 mg tablet 2020-04 2 00:00: 00 No 1mg Dose Unknown 2020-04 2 00:00: 00 No levothyroxi ne 150 mcg tablet 2020-04 2 00:00: 00 No 1mcg Dose Unknown 2020-04 2 00:00: 00 No gabapentin 300 mg capsule 2020-04 2 00:00: 00 No 1mg amlodipine 5 mg tablet 2020-04 2 00:00: 00 No 1mg gemfibrozil 600 mg tablet 2020-04 2 00:00: 00 No 1mg Dose Unknown 2020-04 2 00:00: 00 No levothyroxi ne 150 mcg tablet 2020-04 2 00:00: 00 No 1mcg Dose Unknown 2020-04 2- 00:00: 00 No gabapentin 300 mg capsule 2020-04 2- 00:00: 00 No 1mg amlodipine 5 mg tablet 2020-04 2- 00:00: 00 No 1mg gemfibrozil 600 mg tablet 2020-04 2- 00:00: 00 No 1mg Dose Unknown 2020-04 2- 00:00: 00 No levothyroxi ne 150 mcg tablet 2020-04 2- 00:00: 00 No 1mcg Dose Unknown 2020-04 2 00:00: 00 No gabapentin 300 mg capsule 2020-04 2 00:00: 00 No 1mg Dose Unknown 2020-04 2 00:00: 00 No gemfibrozil 600 mg tablet 2020-04 2 00:00: 00 No 1mg Dose Unknown 2020-04 2 00:00: 00 No levothyroxi ne 150 mcg tablet 2020-04 2 00:00: 00 No 1mcg Dose Unknown 2020-04 2 00:00: 00 No gabapentin 300 mg capsule 2020-04 2 00:00: 00 No 1mg Dose Unknown 2020-04 00:00: 00 No Dose Unknown 2020-04 00:00: 00 No Dose Unknown 2020-04 00:00: 00 No Dose Unknown 2020-04 00:00: 00 No Dose Unknown 2020-04 00:00: 00 No Dose Unknown 2020-04 00:00: 00 No Dose Unknown 2020-04 00:00: 00 No Dose Unknown 2020-04 00:00: 00 No Dose Unknown 2020-04 00:00: 00 No Symbicort 160 mcg-4.5 mcg/actuati on HFA aerosol inhaler 2020-04 00:00: 00 No 2mcg/ac tuation Dose Unknown 2020-04 00:00: 00 No Symbicort 160 mcg-4.5 mcg/actuati on HFA aerosol inhaler 2020-04 00:00: 00 No 2mcg/ac tuation Dose Unknown 2020-04 00:00: 00 No Symbicort 160 mcg-4.5 mcg/actuati on HFA aerosol inhaler 2020-04 00:00: 00 No 2mcg/ac tuation Dose Unknown 2020-04 00:00: 00 No Symbicort 160 mcg-4.5 mcg/actuati on HFA aerosol inhaler 2020-04 00:00: 00 No 2mcg/ac tuation Dose Unknown 2020-04 00:00: 00 No Dose Unknown 2020-04 00:00: 00 No Symbicort 160 mcg-4.5 mcg/actuati on HFA aerosol inhaler 2020-04 00:00: 00 No 2mcg/ac tuation Dose Unknown 2020-04 00:00: 00 No Symbicort 160 mcg-4.5 mcg/actuati on HFA aerosol inhaler 2020-04 00:00: 00 No 2mcg/ac tuation Dose Unknown 2020-04 00:00: 00 No Symbicort 160 mcg-4.5 mcg/actuati on HFA aerosol inhaler 2020-04 00:00: 00 No 2mcg/ac tuation Dose Unknown 2020-04 00:00: 00 No Symbicort 160 mcg-4.5 mcg/actuati on HFA aerosol inhaler 2020-04 00:00: 00 No 2mcg/ac tuation Dose Unknown 2020-04 00:00: 00 No buspirone 10 mg tablet 2020-04 0- 00:00: 00 No 1mg Seroquel 400 mg tablet 2020-04 0- 00:00: 00 No 5mg Prozac 20 mg capsule 2020-04 0- 00:00: 00 No 3mg lithium carbonate 300 mg capsule 2020-04 0- 00:00: 00 No 1mg buspirone 10 mg tablet 2020-04 0- 00:00: 00 No 1mg Seroquel 400 mg tablet 2020-04 0- 00:00: 00 No 5mg Prozac 20 mg capsule 2020-04 0-11 00:00: 00 No 3mg lithium carbonate 300 mg capsule 2020-04 0-11 00:00: 00 No 1mg buspirone 10 mg tablet 2020-04 0-11 00:00: 00 No 1mg Seroquel 400 mg tablet 2020-04 0-11 00:00: 00 No 5mg Prozac 20 mg capsule 2020-04 0-11 00:00: 00 No 3mg lithium carbonate 300 mg capsule 2020-04 0-11 00:00: 00 No 1mg buspirone 10 mg tablet 2020-04 0-11 00:00: 00 No 1mg Seroquel 400 mg tablet 2020-04 0-11 00:00: 00 No 5mg Prozac 20 mg capsule 2020-04 0-11 00:00: 00 No 3mg lithium carbonate 300 mg capsule 2020-04 0-11 00:00: 00 No 1mg buspirone 10 mg tablet 2020-04 0-11 00:00: 00 No 1mg Seroquel 400 mg tablet 2020-04 0-11 00:00: 00 No 5mg Prozac 20 mg capsule 2020-04 0-11 00:00: 00 No 3mg lithium carbonate 300 mg capsule 2020-04 0-11 00:00: 00 No 1mg buspirone 10 mg tablet 2020-04 0-11 00:00: 00 No 1mg Seroquel 400 mg tablet 2020-04 0-11 00:00: 00 No 5mg Prozac 20 mg capsule 2020-04 0-11 00:00: 00 No 3mg lithium carbonate 300 mg capsule 2020-04 0-11 00:00: 00 No 1mg buspirone 10 mg tablet 2020-04 0-11 00:00: 00 No 1mg Seroquel 400 mg tablet 2020-04 0-11 00:00: 00 No 5mg Prozac 20 mg capsule 2020-04 0-11 00:00: 00 No 3mg lithium carbonate 300 mg capsule 2020-04 0-11 00:00: 00 No 1mg buspirone 10 mg tablet 2020-04 0-11 00:00: 00 No 1mg Seroquel 400 mg tablet 2020-04 0-11 00:00: 00 No 5mg Prozac 20 mg capsule 2020-04 0-11 00:00: 00 No 3mg lithium carbonate 300 mg capsule 2020-04 0-11 00:00: 00 No 1mg buspirone 10 mg tablet 2020-04 0-11 00:00: 00 No 1mg Seroquel 400 mg tablet 2020-04 0-11 00:00: 00 No 5mg Prozac 20 mg capsule 2020-04 0-11 00:00: 00 No 3mg lithium carbonate 300 mg capsule 2020-04 0-11 00:00: 00 No 1mg Symbicort 160 mcg-4.5 mcg/actuati on HFA aerosol inhaler 2020-04 0-06 00:00: 00 No 2mcg/ac tuation ProAir HFA 90 mcg/actuati on aerosol inhaler 2020-04 0-06 00:00: 00 No 2mcg/ac tuation lisinopril 10 mg tablet 2020-04 0-06 00:00: 00 No 1mg Singulair 10 mg tablet 2020-04 0-06 00:00: 00 No 1mg ibuprofen 600 mg tablet 2020-04 0-06 00:00: 00 No 1mg Symbicort 160 mcg-4.5 mcg/actuati on HFA aerosol inhaler 2020-04 0-06 00:00: 00 No 2mcg/ac tuation ProAir HFA 90 mcg/actuati on aerosol inhaler 2020-04 0-06 00:00: 00 No 2mcg/ac tuation lisinopril 10 mg tablet 2020-04 0-06 00:00: 00 No 1mg Singulair 10 mg tablet 2020-04 0-06 00:00: 00 No 1mg ibuprofen 600 mg tablet 2020-04 0-06 00:00: 00 No 1mg Symbicort 160 mcg-4.5 mcg/actuati on HFA aerosol inhaler 2020-04 0-06 00:00: 00 No 2mcg/ac tuation ProAir HFA 90 mcg/actuati on aerosol inhaler 2020-04 0-06 00:00: 00 No 2mcg/ac tuation lisinopril 10 mg tablet 2020-04 0-06 00:00: 00 No 1mg Dose Unknown 2020-04 0-06 00:00: 00 No ibuprofen 600 mg tablet 2020-04 0-06 00:00: 00 No 1mg Symbicort 160 mcg-4.5 mcg/actuati on HFA aerosol inhaler 2020-04 0-06 00:00: 00 No 2mcg/ac tuation Dose Unknown 2020-04 0-06 00:00: 00 No lisinopril 10 mg tablet 2020-04 0-06 00:00: 00 No 1mg Dose Unknown 2020-04 0-06 00:00: 00 No ibuprofen 600 mg tablet 2020-04 0-06 00:00: 00 No 1mg Symbicort 160 mcg-4.5 mcg/actuati on HFA aerosol inhaler 2020-04 0-06 00:00: 00 No 2mcg/ac tuation Dose Unknown 2020-04 0-06 00:00: 00 No lisinopril 10 mg tablet 2020-04 0-06 00:00: 00 No 1mg ibuprofen 600 mg tablet 2020-04 0-06 00:00: 00 No 1mg Dose Unknown 2020-04 0-06 00:00: 00 No Symbicort 160 mcg-4.5 mcg/actuati on HFA aerosol inhaler 2020-04 0-06 00:00: 00 No 2mcg/ac tuation ProAir HFA 90 mcg/actuati on aerosol inhaler 2020-04 0-06 00:00: 00 No 2mcg/ac tuation lisinopril 10 mg tablet 2020-04 0-06 00:00: 00 No 1mg Singulair 10 mg tablet 2020-04 0-06 00:00: 00 No 1mg ibuprofen 600 mg tablet 2020-04 0-06 00:00: 00 No 1mg Symbicort 160 mcg-4.5 mcg/actuati on HFA aerosol inhaler 2020-04 0-06 00:00: 00 No 2mcg/ac tuation ProAir HFA 90 mcg/actuati on aerosol inhaler 2020-04 0-06 00:00: 00 No 2mcg/ac tuation lisinopril 10 mg tablet 2020-04 0-06 00:00: 00 No 1mg Singulair 10 mg tablet 2020-04 0-06 00:00: 00 No 1mg ibuprofen 600 mg tablet 2020-04 0-06 00:00: 00 No 1mg Symbicort 160 mcg-4.5 mcg/actuati on HFA aerosol inhaler 2020-04 0-06 00:00: 00 No 2mcg/ac tuation ProAir HFA 90 mcg/actuati on aerosol inhaler 2020-04 0-06 00:00: 00 No 2mcg/ac tuation lisinopril 10 mg tablet 2020-04 0-06 00:00: 00 No 1mg Singulair 10 mg tablet 2020-04 0-06 00:00: 00 No 1mg ibuprofen 600 mg tablet 2020-04 0-06 00:00: 00 No 1mg Symbicort 160 mcg-4.5 mcg/actuati on HFA aerosol inhaler 2020-04 0-06 00:00: 00 No 2mcg/ac tuation ProAir HFA 90 mcg/actuati on aerosol inhaler 2020-04 0-06 00:00: 00 No 2mcg/ac tuation lisinopril 10 mg tablet 2020-04 0-06 00:00: 00 No 1mg Singulair 10 mg tablet 2020-04 0-06 00:00: 00 No 1mg ibuprofen 600 mg tablet 2020-04 0-06 00:00: 00 No 1mg Dose Unknown 1-0 9-16 00:00: 00 No Dose Unknown 1-0 9-16 00:00: 00 No Dose Unknown 1-0 9-16 00:00: 00 No Dose Unknown 1-0 9-16 00:00: 00 No Dose Unknown 1-0 9-16 00:00: 00 No Dose Unknown 1-0 9-16 00:00: 00 No Dose Unknown 1-0 9-16 00:00: 00 No Dose Unknown 1-0 9-16 00:00: 00 No Dose Unknown 1-0 9-16 00:00: 00 No Dose Unknown 1-0 9-16 00:00: 00 No Dose Unknown 1-0 9-16 00:00: 00 No Dose Unknown 1-0 9-16 00:00: 00 No Dose Unknown 2021-0 9-16 00:00: 00 No Dose Unknown 1-0 9-16 00:00: 00 No Dose Unknown 1-0 9-16 00:00: 00 No Dose Unknown 2021-0 9-16 00:00: 00 No Dose Unknown 2021-0 9-16 00:00: 00 No Dose Unknown 2021-0 9-16 00:00: 00 No Dose Unknown 2021-0 9-16 00:00: 00 No Dose Unknown 2021-0 9-16 00:00: 00 No Dose Unknown 2021-0 9-16 00:00: 00 No Dose Unknown 2021-0 9-16 00:00: 00 No Dose Unknown 2021-0 9-16 00:00: 00 No Dose Unknown 2021-0 9-16 00:00: 00 No Dose Unknown 2021-0 9-16 00:00: 00 No Dose Unknown 2021-0 9-16 00:00: 00 No Dose Unknown 2021-0 9-16 00:00: 00 No Dose Unknown 2021-0 9-16 00:00: 00 No Dose Unknown 2021-0 9-16 00:00: 00 No Dose Unknown 2021-0 9-16 00:00: 00 No Dose Unknown 2021-0 9-16 00:00: 00 No Dose Unknown 2021-0 9-16 00:00: 00 No Dose Unknown 2021-0 9-16 00:00: 00 No Dose Unknown 2021-0 9-16 00:00: 00 No Dose Unknown 2021-0 9-16 00:00: 00 No Dose Unknown 2021-0 9-16 00:00: 00 No Dose Unknown 2021-0 9-16 00:00: 00 No Dose Unknown 2021-0 9-16 00:00: 00 No Dose Unknown 2021-0 9-16 00:00: 00 No Dose Unknown 2021-0 9-16 00:00: 00 No Dose Unknown 2021-0 9-16 00:00: 00 No Dose Unknown 2021-0 9-16 00:00: 00 No Dose Unknown 2021-0 9-16 00:00: 00 No Dose Unknown 2021-0 9-16 00:00: 00 No Dose Unknown 2021-0 9-16 00:00: 00 No Dose Unknown 2021-0 9-16 00:00: 00 No Dose Unknown 2021-0 9-16 00:00: 00 No Dose Unknown 2021-0 9-16 00:00: 00 No Dose Unknown 2021-0 9-16 00:00: 00 No Dose Unknown 2021-0 9-16 00:00: 00 No Dose Unknown 2021-0 9-16 00:00: 00 No Dose Unknown 2021-0 9-16 00:00: 00 No Dose Unknown 2021-0 9-16 00:00: 00 No Dose Unknown 2021-0 9-16 00:00: 00 No Dose Unknown 2021-0 9-13 00:00: 00 No Dose Unknown 2021-0 9-13 00:00: 00 No Dose Unknown 2021-0 9-13 00:00: 00 No Dose Unknown 2021-0 9-13 00:00: 00 No Dose Unknown 2021-0 9-13 00:00: 00 No Dose Unknown 2021-0 9-13 00:00: 00 No Dose Unknown 2021-0 9-13 00:00: 00 No Dose Unknown 2021-0 9-13 00:00: 00 No Dose Unknown 2021-0 9-13 00:00: 00 No Dose Unknown 2021-0 9-13 00:00: 00 No Dose Unknown 2021-0 9-13 00:00: 00 No Dose Unknown 2021-0 9-13 00:00: 00 No Dose Unknown 2021-0 9-13 00:00: 00 No Dose Unknown 2021-0 9-13 00:00: 00 No Dose Unknown 2021-0 9-13 00:00: 00 No Dose Unknown 2021-0 9-13 00:00: 00 No Dose Unknown 2021-0 9-13 00:00: 00 No Dose Unknown 2021-0 9-13 00:00: 00 No Dose Unknown 2021-0 9-10 00:00: 00 No Dose Unknown 2021-0 9-10 00:00: 00 No Dose Unknown 2021-0 9-10 00:00: 00 No Dose Unknown 2021-0 9-10 00:00: 00 No Dose Unknown 2021-0 9-10 00:00: 00 No Dose Unknown 2021-0 9-10 00:00: 00 No Dose Unknown 2021-0 9-10 00:00: 00 No Dose Unknown 2021-0 9-10 00:00: 00 No Dose Unknown 2021-0 9-10 00:00: 00 No omeprazole 40 mg capsule,del ayed release 2021-0 8-19 00:00: 00 No 1mg omeprazole 40 mg capsule,del ayed release 0 8 00:00: 00 No 1mg omeprazole 40 mg capsule,del ayed release 0 8 00:00: 00 No 1mg omeprazole 40 mg capsule,del ayed release 0 8 00:00: 00 No 1mg omeprazole 40 mg capsule,del ayed release 0 8 00:00: 00 No 1mg omeprazole 40 mg capsule,del ayed release 0 12-02 00:00: 00 No 1mg omeprazole 40 mg capsule,del ayed release 0 8 00:00: 00 No 1mg omeprazole 40 mg capsule,del ayed release 0 12-02 00:00: 00 No 1mg omeprazole 40 mg capsule,del ayed release 0 12-02 00:00: 00 No 1mg lisinopril 10 mg tablet 0 8 00:00: 00 No 1mg Dose Unknown 0 8 00:00: 00 No ibuprofen 600 mg tablet 0 8 00:00: 00 No 1mg lisinopril 10 mg tablet 0 8 00:00: 00 No 1mg Dose Unknown 0 8 00:00: 00 No ibuprofen 600 mg tablet 0 8 00:00: 00 No 1mg lisinopril 10 mg tablet 0 8 00:00: 00 No 1mg Dose Unknown 0 8 00:00: 00 No ibuprofen 600 mg tablet 0 8 00:00: 00 No 1mg lisinopril 10 mg tablet 0 8- 00:00: 00 No 1mg Dose Unknown 0 8 00:00: 00 No ibuprofen 600 mg tablet 0 8- 00:00: 00 No 1mg lisinopril 10 mg tablet 0 8 00:00: 00 No 1mg Dose Unknown 0 8 00:00: 00 No ibuprofen 600 mg tablet 0 8- 00:00: 00 No 1mg lisinopril 10 mg tablet 8-13 00:00: 00 No 1mg Dose Unknown 8- 00:00: 00 No ibuprofen 600 mg tablet 8- 00:00: 00 No 1mg lisinopril 10 mg tablet 8- 00:00: 00 No 1mg Dose Unknown - 00:00: 00 No ibuprofen 600 mg tablet 8- 00:00: 00 No 1mg lisinopril 10 mg tablet 8- 00:00: 00 No 1mg Dose Unknown - 00:00: 00 No ibuprofen 600 mg tablet 8- 00:00: 00 No 1mg lisinopril 10 mg tablet - 00:00: 00 No 1mg Dose Unknown 11-26 00:00: 00 No ibuprofen 600 mg tablet - 00:00: 00 No 1mg buspirone 10 mg tablet 0 8-06 00:00: 00 No 1mg Seroquel 400 mg tablet 0 8-06 00:00: 00 No 5mg Prozac 20 mg capsule 0 8-06 00:00: 00 No 3mg lithium carbonate 300 mg capsule 0 8-06 00:00: 00 No 1mg buspirone 10 mg tablet 0 8-06 00:00: 00 No 1mg Seroquel 400 mg tablet 0 8-06 00:00: 00 No 5mg Prozac 20 mg capsule 0 8-06 00:00: 00 No 3mg lithium carbonate 300 mg capsule 0 8-06 00:00: 00 No 1mg buspirone 10 mg tablet 0 8-06 00:00: 00 No 1mg Seroquel 400 mg tablet 0 8-06 00:00: 00 No 5mg Prozac 20 mg capsule 0 8-06 00:00: 00 No 3mg lithium carbonate 300 mg capsule 0 8-06 00:00: 00 No 1mg buspirone 10 mg tablet 0 8-06 00:00: 00 No 1mg Seroquel 400 mg tablet 2021-0 8-06 00:00: 00 No 5mg Prozac 20 mg capsule 0 8-06 00:00: 00 No 3mg lithium carbonate 300 mg capsule 0 8-06 00:00: 00 No 1mg buspirone 10 mg tablet 0 8- 00:00: 00 No 1mg Seroquel 400 mg tablet 2020-0 8-06 00:00: 00 No 5mg Prozac 20 mg capsule 0 8- 00:00: 00 No 3mg lithium carbonate 300 mg capsule 0 8- 00:00: 00 No 1mg buspirone 10 mg tablet 0 8- 00:00: 00 No 1mg Seroquel 400 mg tablet 0 8- 00:00: 00 No 5mg Prozac 20 mg capsule 0 8 00:00: 00 No 3mg lithium carbonate 300 mg capsule 2020-0 8- 00:00: 00 No 1mg buspirone 10 mg tablet 0 8- 00:00: 00 No 1mg Seroquel 400 mg tablet 0 8 00:00: 00 No 5mg Prozac 20 mg capsule 2020-0 8- 00:00: 00 No 3mg lithium carbonate 300 mg capsule 0 8- 00:00: 00 No 1mg buspirone 10 mg tablet 0 8 00:00: 00 No 1mg Seroquel 400 mg tablet 2020-0 8-06 00:00: 00 No 5mg Prozac 20 mg capsule 0 8-06 00:00: 00 No 3mg lithium carbonate 300 mg capsule 0 8- 00:00: 00 No 1mg buspirone 10 mg tablet 2020-0 8-06 00:00: 00 No 1mg Seroquel 400 mg tablet 0 8-06 00:00: 00 No 5mg Prozac 20 mg capsule 2020-0 8- 00:00: 00 No 3mg lithium carbonate 300 mg capsule 2020-0 8- 00:00: 00 No 1mg Dose Unknown 0 7- 00:00: 00 No Dose Unknown 0 11-05 00:00: 00 No Dose Unknown 0 11-05 00:00: 00 No Dose Unknown 0 11-05 00:00: 00 No Dose Unknown 0 11-05 00:00: 00 No Dose Unknown 0 11-05 00:00: 00 No Dose Unknown 0 11-05 00:00: 00 No Dose Unknown 0 11-05 00:00: 00 No Dose Unknown 0 11-05 00:00: 00 No Dose Unknown 0 11-05 00:00: 00 No Dose Unknown 0 11-05 00:00: 00 No Dose Unknown 0 11-05 00:00: 00 No Dose Unknown 0 11-05 00:00: 00 No Dose Unknown 0 11-05 00:00: 00 No Dose Unknown 0 11-05 00:00: 00 No Dose Unknown 0 11-05 00:00: 00 No Dose Unknown 0 11-05 00:00: 00 No Dose Unknown 0 11-05 00:00: 00 No buspirone 10 mg tablet 2020-0 10-05 00:00: 00 No 1mg buspirone 10 mg tablet 0 10-05 00:00: 00 No 1mg buspirone 10 mg tablet 0 10-05 00:00: 00 No 1mg buspirone 10 mg tablet 0 10-05 00:00: 00 No 1mg buspirone 10 mg tablet 0 10-05 00:00: 00 No 1mg buspirone 10 mg tablet 0 10-05 00:00: 00 No 1mg buspirone 10 mg tablet 0 10-05 00:00: 00 No 1mg buspirone 10 mg tablet 0 10-05 00:00: 00 No 1mg buspirone 10 mg tablet 0 10-05 00:00: 00 No 1mg Dose Unknown 0 10-01 00:00: 00 No cyclobenzap rine 10 mg tablet 2020-0 10-01 00:00: 00 No 1mg naproxen 500 mg tablet 10-01 00:00: 00 No 1mg Seroquel 400 mg tablet 10-01 00:00: 00 No 5mg Prozac 20 mg capsule 10-01 00:00: 00 No 3mg lithium carbonate 300 mg capsule 10-01 00:00: 00 No 1mg Dose Unknown 10-01 00:00: 00 No cyclobenzap rine 10 mg tablet 10-01 00:00: 00 No 1mg naproxen 500 mg tablet 10-01 00:00: 00 No 1mg Seroquel 400 mg tablet 10-01 00:00: 00 No 5mg Prozac 20 mg capsule 10-01 00:00: 00 No 3mg lithium carbonate 300 mg capsule 10-01 00:00: 00 No 1mg Dose Unknown 10-01 00:00: 00 No cyclobenzap rine 10 mg tablet 10-01 00:00: 00 No 1mg naproxen 500 mg tablet 10-01 00:00: 00 No 1mg Seroquel 400 mg tablet 10-01 00:00: 00 No 5mg Prozac 20 mg capsule 10-01 00:00: 00 No 3mg lithium carbonate 300 mg capsule 10-01 00:00: 00 No 1mg Dose Unknown 10-01 00:00: 00 No cyclobenzap rine 10 mg tablet 10-01 00:00: 00 No 1mg naproxen 500 mg tablet 10-01 00:00: 00 No 1mg Seroquel 400 mg tablet 10-01 00:00: 00 No 5mg Prozac 20 mg capsule 10-01 00:00: 00 No 3mg lithium carbonate 300 mg capsule 10-01 00:00: 00 No 1mg Dose Unknown 10-01 00:00: 00 No cyclobenzap rine 10 mg tablet 10-01 00:00: 00 No 1mg Seroquel 400 mg tablet 10-01 00:00: 00 No 5mg Dose Unknown 10-01 00:00: 00 No Prozac 20 mg capsule 10-01 00:00: 00 No 3mg lithium carbonate 300 mg capsule 10-01 00:00: 00 No 1mg Dose Unknown 10-01 00:00: 00 No cyclobenzap rine 10 mg tablet 10-01 00:00: 00 No 1mg naproxen 500 mg tablet 10-01 00:00: 00 No 1mg Seroquel 400 mg tablet 10-01 00:00: 00 No 5mg Prozac 20 mg capsule 10-01 00:00: 00 No 3mg lithium carbonate 300 mg capsule 10-01 00:00: 00 No 1mg Dose Unknown 10-01 00:00: 00 No cyclobenzap rine 10 mg tablet 10-01 00:00: 00 No 1mg naproxen 500 mg tablet 10-01 00:00: 00 No 1mg Seroquel 400 mg tablet 10-01 00:00: 00 No 5mg Prozac 20 mg capsule 10-01 00:00: 00 No 3mg lithium carbonate 300 mg capsule 10-01 00:00: 00 No 1mg Dose Unknown 10-01 00:00: 00 No cyclobenzap rine 10 mg tablet 10-01 00:00: 00 No 1mg naproxen 500 mg tablet 10-01 00:00: 00 No 1mg Seroquel 400 mg tablet 10-01 00:00: 00 No 5mg Prozac 20 mg capsule 10-01 00:00: 00 No 3mg lithium carbonate 300 mg capsule 10-01 00:00: 00 No 1mg Dose Unknown 10-01 00:00: 00 No cyclobenzap rine 10 mg tablet 10-01 00:00: 00 No 1mg naproxen 500 mg tablet 10-01 00:00: 00 No 1mg Seroquel 400 mg tablet 10-01 00:00: 00 No 5mg Prozac 20 mg capsule 2020-0 18 00:00: 00 No 3mg lithium carbonate 300 mg capsule 0 618 00:00: 00 No 1mg Dose Unknown 0 6- 00:00: 00 No Dose Unknown 0 09-23 00:00: 00 No Dose Unknown 0 09-23 00:00: 00 No Dose Unknown 0 6 00:00: 00 No Dose Unknown 0 09-23 00:00: 00 No Dose Unknown 0 09-23 00:00: 00 No Dose Unknown 0 09-23 00:00: 00 No Dose Unknown 0 09-23 00:00: 00 No Dose Unknown 0 09-23 00:00: 00 No hydroxyzine HCl 10 mg tablet 0 - 00:00: 00 No 1mg Seroquel 400 mg tablet 2020-0 6- 00:00: 00 No 5mg Prozac 20 mg capsule 0 - 00:00: 00 No 3mg lithium carbonate 300 mg capsule 0 - 00:00: 00 No 1mg hydroxyzine HCl 10 mg tablet 2020-0 6- 00:00: 00 No 1mg Seroquel 400 mg tablet 2020-0 - 00:00: 00 No 5mg Prozac 20 mg capsule 0 6- 00:00: 00 No 3mg lithium carbonate 300 mg capsule 0 6- 00:00: 00 No 1mg hydroxyzine HCl 10 mg tablet 2020-0 6- 00:00: 00 No 1mg Seroquel 400 mg tablet 2020-0 6- 00:00: 00 No 5mg Prozac 20 mg capsule 2020-0 6- 00:00: 00 No 3mg lithium carbonate 300 mg capsule 2020-0 6- 00:00: 00 No 1mg hydroxyzine HCl 10 mg tablet 0 6- 00:00: 00 No 1mg Seroquel 400 mg tablet 2020-0 6- 00:00: 00 No 5mg Prozac 20 mg capsule 2020-0 6- 00:00: 00 No 3mg lithium carbonate 300 mg capsule 09-20 00:00: 00 No 1mg Seroquel 400 mg tablet 09-20 00:00: 00 No 5mg Dose Unknown 09-20 00:00: 00 No Prozac 20 mg capsule 09-20 00:00: 00 No 3mg lithium carbonate 300 mg capsule 09-20 00:00: 00 No 1mg hydroxyzine HCl 10 mg tablet 09-20 00:00: 00 No 1mg Seroquel 400 mg tablet 09-20 00:00: 00 No 5mg Prozac 20 mg capsule 09-20 00:00: 00 No 3mg lithium carbonate 300 mg capsule 09-20 00:00: 00 No 1mg hydroxyzine HCl 10 mg tablet 09-20 00:00: 00 No 1mg Seroquel 400 mg tablet 09-20 00:00: 00 No 5mg Prozac 20 mg capsule 09-20 00:00: 00 No 3mg lithium carbonate 300 mg capsule 09-20 00:00: 00 No 1mg hydroxyzine HCl 10 mg tablet 09-20 00:00: 00 No 1mg Seroquel 400 mg tablet 09-20 00:00: 00 No 5mg Prozac 20 mg capsule 09-20 00:00: 00 No 3mg lithium carbonate 300 mg capsule 09-20 00:00: 00 No 1mg hydroxyzine HCl 10 mg tablet 09-20 00:00: 00 No 1mg Seroquel 400 mg tablet 09-20 00:00: 00 No 5mg Prozac 20 mg capsule 09-20 00:00: 00 No 3mg lithium carbonate 300 mg capsule 09-20 00:00: 00 No 1mg ibuprofen 800 mg tablet 09-17 00:00: 00 No 1mg ibuprofen 800 mg tablet 09-17 00:00: 00 No 1mg ibuprofen 800 mg tablet 09-17 00:00: 00 No 1mg ibuprofen 800 mg tablet 09-17 00:00: 00 No 1mg ibuprofen 800 mg tablet 0 09-17 00:00: 00 No 1mg ibuprofen 800 mg tablet 0 09-17 00:00: 00 No 1mg ibuprofen 800 mg tablet 0 09-17 00:00: 00 No 1mg ibuprofen 800 mg tablet 0 09-17 00:00: 00 No 1mg ibuprofen 800 mg tablet 0 09-17 00:00: 00 No 1mg buspirone 5 mg tablet 0 09-08 00:00: 00 No 1mg Seroquel 400 mg tablet 0 09-08 00:00: 00 No 1mg Prozac 20 mg capsule 0 09-08 00:00: 00 No 3mg lithium carbonate 300 mg capsule 0 09-08 00:00: 00 No 1mg buspirone 5 mg tablet 0 09-08 00:00: 00 No 1mg Seroquel 400 mg tablet 0 09-08 00:00: 00 No 1mg Prozac 20 mg capsule 0 09-08 00:00: 00 No 3mg lithium carbonate 300 mg capsule 0 09-08 00:00: 00 No 1mg buspirone 5 mg tablet 0 09-08 00:00: 00 No 1mg Seroquel 400 mg tablet 0 09-08 00:00: 00 No 1mg Prozac 20 mg capsule 0 09-08 00:00: 00 No 3mg lithium carbonate 300 mg capsule 0 09-08 00:00: 00 No 1mg buspirone 5 mg tablet 0 09-08 00:00: 00 No 1mg Seroquel 400 mg tablet 0 09-08 00:00: 00 No 1mg Prozac 20 mg capsule 0 09-08 00:00: 00 No 3mg lithium carbonate 300 mg capsule 0 09-08 00:00: 00 No 1mg buspirone 5 mg tablet 0 09-08 00:00: 00 No 1mg Seroquel 400 mg tablet 0 09-08 00:00: 00 No 1mg Prozac 20 mg capsule 0 09-08 00:00: 00 No 3mg lithium carbonate 300 mg capsule 0 09-08 00:00: 00 No 1mg buspirone 5 mg tablet 0 09-08 00:00: 00 No 1mg Seroquel 400 mg tablet 0 09-08 00:00: 00 No 1mg buspirone 5 mg tablet 0 09-08 00:00: 00 No 1mg Seroquel 400 mg tablet 0 09-08 00:00: 00 No 1mg Prozac 20 mg capsule 0 09-08 00:00: 00 No 3mg lithium carbonate 300 mg capsule 0 09-08 00:00: 00 No 1mg Prozac 20 mg capsule 0 09-08 00:00: 00 No 3mg lithium carbonate 300 mg capsule 0 09-08 00:00: 00 No 1mg buspirone 5 mg tablet 0 09-08 00:00: 00 No 1mg Seroquel 400 mg tablet 0 09-08 00:00: 00 No 1mg Prozac 20 mg capsule 0 09-08 00:00: 00 No 3mg lithium carbonate 300 mg capsule 0 09-08 00:00: 00 No 1mg buspirone 5 mg tablet 0 09-08 00:00: 00 No 1mg Seroquel 400 mg tablet 0 09-08 00:00: 00 No 1mg Prozac 20 mg capsule 0 09-08 00:00: 00 No 3mg lithium carbonate 300 mg capsule 0 09-08 00:00: 00 No 1mg Seroquel 400 mg tablet 0 09-05 00:00: 00 No 1mg Prozac 20 mg capsule 0 09-05 00:00: 00 No 3mg lithium carbonate 300 mg capsule 0 09-05 00:00: 00 No 1mg Seroquel 400 mg tablet 0 09-05 00:00: 00 No 1mg Prozac 20 mg capsule 0 09-05 00:00: 00 No 3mg lithium carbonate 300 mg capsule 0 09-05 00:00: 00 No 1mg Seroquel 400 mg tablet 0 09-05 00:00: 00 No 1mg Prozac 20 mg capsule 0 09-05 00:00: 00 No 3mg lithium carbonate 300 mg capsule 09-05 00:00: 00 No 1mg Seroquel 400 mg tablet 09-05 00:00: 00 No 1mg Prozac 20 mg capsule 0 09-05 00:00: 00 No 3mg lithium carbonate 300 mg capsule 0 09-05 00:00: 00 No 1mg Seroquel 400 mg tablet 09-05 00:00: 00 No 1mg Prozac 20 mg capsule 09-05 00:00: 00 No 3mg lithium carbonate 300 mg capsule 09-05 00:00: 00 No 1mg Seroquel 400 mg tablet 09-05 00:00: 00 No 1mg Prozac 20 mg capsule 0 09-05 00:00: 00 No 3mg lithium carbonate 300 mg capsule 09-05 00:00: 00 No 1mg Seroquel 400 mg tablet 09-05 00:00: 00 No 1mg Prozac 20 mg capsule 09-05 00:00: 00 No 3mg lithium carbonate 300 mg capsule 09-05 00:00: 00 No 1mg Seroquel 400 mg tablet 09-05 00:00: 00 No 1mg Prozac 20 mg capsule 09-05 00:00: 00 No 3mg lithium carbonate 300 mg capsule 09-05 00:00: 00 No 1mg Seroquel 400 mg tablet 09-05 00:00: 00 No 1mg Prozac 20 mg capsule 09-05 00:00: 00 No 3mg lithium carbonate 300 mg capsule 09-05 00:00: 00 No 1mg lorazepam 0.5 mg tablet 09-02 00:00: 00 No 1mg lisinopril 10 mg tablet 0 09-02 00:00: 00 No 1mg ibuprofen 600 mg tablet 0 09-02 00:00: 00 No 1mg ibuprofen 600 mg tablet 09-02 00:00: 00 No 1mg lisinopril 10 mg tablet 09-02 00:00: 00 No 1mg lisinopril 10 mg tablet 09-02 00:00: 00 No 1mg Dose Unknown 09-02 00:00: 00 No montelukast 10 mg tablet 09-02 00:00: 00 No 1mg lorazepam 0.5 mg tablet 09-02 00:00: 00 No 1mg montelukast 10 mg tablet 09-02 00:00: 00 No 1mg Dose Unknown 09-02 00:00: 00 No levothyroxi ne 150 mcg tablet 09-02 00:00: 00 No 1mcg levothyroxi ne 150 mcg tablet 09-02 00:00: 00 No 1mcg Dose Unknown 09-02 00:00: 00 No Dose Unknown 09-02 00:00: 00 No gabapentin 300 mg capsule 09-02 00:00: 00 No 1mg gabapentin 300 mg capsule 09-02 00:00: 00 No 1mg Dose Unknown 09-02 00:00: 00 No phenytoin 100 mg/4 mL oral suspension 09-02 00:00: 00 No 1(21)/7 5 mg (7) phenytoin 100 mg/4 mL oral suspension 09-02 00:00: 00 No 1(21)/7 5 mg (7) phenytoin 100 mg/4 mL oral suspension 09-02 00:00: 00 No 1(21)/7 5 mg (7) montelukast 10 mg tablet 09-02 00:00: 00 No 1mg Dose Unknown 09-02 00:00: 00 No lisinopril 10 mg tablet 09-02 00:00: 00 No 1mg levothyroxi ne 150 mcg tablet 09-02 00:00: 00 No 1mcg ibuprofen 600 mg tablet 09-02 00:00: 00 No 1mg ibuprofen 600 mg tablet 09-02 00:00: 00 No 1mg lisinopril 10 mg tablet 09-02 00:00: 00 No 1mg lisinopril 10 mg tablet 09-02 00:00: 00 No 1mg Dose Unknown 09-02 00:00: 00 No montelukast 10 mg tablet 09-02 00:00: 00 No 1mg lorazepam 0.5 mg tablet 09-02 00:00: 00 No 1mg montelukast 10 mg tablet 09-02 00:00: 00 No 1mg Dose Unknown 09-02 00:00: 00 No levothyroxi ne 150 mcg tablet 09-02 00:00: 00 No 1mcg levothyroxi ne 150 mcg tablet 09-02 00:00: 00 No 1mcg Dose Unknown 09-02 00:00: 00 No Dose Unknown 09-02 00:00: 00 No gabapentin 300 mg capsule 09-02 00:00: 00 No 1mg gabapentin 300 mg capsule 09-02 00:00: 00 No 1mg Dose Unknown 09-02 00:00: 00 No phenytoin 100 mg/4 mL oral suspension 09-02 00:00: 00 No 1(21)/7 5 mg (7) phenytoin 100 mg/4 mL oral suspension 09-02 00:00: 00 No 1(21)/7 5 mg (7) phenytoin 100 mg/4 mL oral suspension 09-02 00:00: 00 No 1(21)/7 5 mg (7) levothyroxi ne 150 mcg tablet 09-02 00:00: 00 No 1mcg Dose Unknown 09-02 00:00: 00 No lisinopril 10 mg tablet 09-02 00:00: 00 No 1mg ibuprofen 600 mg tablet 09-02 00:00: 00 No 1mg ibuprofen 600 mg tablet 09-02 00:00: 00 No 1mg lisinopril 10 mg tablet 09-02 00:00: 00 No 1mg lisinopril 10 mg tablet 09-02 00:00: 00 No 1mg Dose Unknown 09-02 00:00: 00 No montelukast 10 mg tablet 09-02 00:00: 00 No 1mg lorazepam 0.5 mg tablet 09-02 00:00: 00 No 1mg montelukast 10 mg tablet 09-02 00:00: 00 No 1mg Dose Unknown 09-02 00:00: 00 No levothyroxi ne 150 mcg tablet 09-02 00:00: 00 No 1mcg levothyroxi ne 150 mcg tablet 09-02 00:00: 00 No 1mcg Dose Unknown 09-02 00:00: 00 No Dose Unknown 09-02 00:00: 00 No gabapentin 300 mg capsule 09-02 00:00: 00 No 1mg gabapentin 300 mg capsule 09-02 00:00: 00 No 1mg Dose Unknown 09-02 00:00: 00 No phenytoin 100 mg/4 mL oral suspension 09-02 00:00: 00 No 1(21)/7 5 mg (7) phenytoin 100 mg/4 mL oral suspension 09-02 00:00: 00 No 1(21)/7 5 mg (7) phenytoin 100 mg/4 mL oral suspension 09-02 00:00: 00 No 1(21)/7 5 mg (7) Dose Unknown 09-02 00:00: 00 No gabapentin 300 mg capsule 09-02 00:00: 00 No 1mg gabapentin 300 mg capsule 09-02 00:00: 00 No 1mg lisinopril 10 mg tablet 09-02 00:00: 00 No 1mg ibuprofen 600 mg tablet 09-02 00:00: 00 No 1mg ibuprofen 600 mg tablet 09-02 00:00: 00 No 1mg lisinopril 10 mg tablet 09-02 00:00: 00 No 1mg lisinopril 10 mg tablet 09-02 00:00: 00 No 1mg Dose Unknown 09-02 00:00: 00 No montelukast 10 mg tablet 09-02 00:00: 00 No 1mg lorazepam 0.5 mg tablet 09-02 00:00: 00 No 1mg montelukast 10 mg tablet 09-02 00:00: 00 No 1mg Dose Unknown 09-02 00:00: 00 No levothyroxi ne 150 mcg tablet 09-02 00:00: 00 No 1mcg levothyroxi ne 150 mcg tablet 09-02 00:00: 00 No 1mcg Dose Unknown 09-02 00:00: 00 No Dose Unknown 09-02 00:00: 00 No gabapentin 300 mg capsule 09-02 00:00: 00 No 1mg gabapentin 300 mg capsule 09-02 00:00: 00 No 1mg Dose Unknown 09-02 00:00: 00 No phenytoin 100 mg/4 mL oral suspension 09-02 00:00: 00 No 1(21)/7 5 mg (7) phenytoin 100 mg/4 mL oral suspension 09-02 00:00: 00 No 1(21)/7 5 mg (7) phenytoin 100 mg/4 mL oral suspension 09-02 00:00: 00 No 1(21)/7 5 mg (7) Dose Unknown 09-02 00:00: 00 No phenytoin 100 mg/4 mL oral suspension 09-02 00:00: 00 No 1(21)/7 5 mg (7) phenytoin 100 mg/4 mL oral suspension 09-02 00:00: 00 No 1(21)/7 5 mg (7) lisinopril 10 mg tablet 09-02 00:00: 00 No 1mg ibuprofen 600 mg tablet 09-02 00:00: 00 No 1mg ibuprofen 600 mg tablet 09-02 00:00: 00 No 1mg lisinopril 10 mg tablet 09-02 00:00: 00 No 1mg lisinopril 10 mg tablet 09-02 00:00: 00 No 1mg Dose Unknown 09-02 00:00: 00 No montelukast 10 mg tablet 09-02 00:00: 00 No 1mg lorazepam 0.5 mg tablet 09-02 00:00: 00 No 1mg montelukast 10 mg tablet 09-02 00:00: 00 No 1mg Dose Unknown 09-02 00:00: 00 No levothyroxi ne 150 mcg tablet 09-02 00:00: 00 No 1mcg levothyroxi ne 150 mcg tablet 09-02 00:00: 00 No 1mcg Dose Unknown 09-02 00:00: 00 No Dose Unknown 09-02 00:00: 00 No gabapentin 300 mg capsule 09-02 00:00: 00 No 1mg gabapentin 300 mg capsule 09-02 00:00: 00 No 1mg Dose Unknown 09-02 00:00: 00 No phenytoin 100 mg/4 mL oral suspension 09-02 00:00: 00 No 1(21)/7 5 mg (7) phenytoin 100 mg/4 mL oral suspension 09-02 00:00: 00 No 1(21)/7 5 mg (7) phenytoin 100 mg/4 mL oral suspension 09-02 00:00: 00 No 1(21)/7 5 mg (7) phenytoin 100 mg/4 mL oral suspension 09-02 00:00: 00 No 1(21)/7 5 mg (7) lisinopril 10 mg tablet 09-02 00:00: 00 No 1mg ibuprofen 600 mg tablet 09-02 00:00: 00 No 1mg ibuprofen 600 mg tablet 09-02 00:00: 00 No 1mg lisinopril 10 mg tablet 09-02 00:00: 00 No 1mg lisinopril 10 mg tablet 09-02 00:00: 00 No 1mg Dose Unknown 09-02 00:00: 00 No montelukast 10 mg tablet 09-02 00:00: 00 No 1mg lorazepam 0.5 mg tablet 09-02 00:00: 00 No 1mg montelukast 10 mg tablet 09-02 00:00: 00 No 1mg Dose Unknown 09-02 00:00: 00 No levothyroxi ne 150 mcg tablet 09-02 00:00: 00 No 1mcg levothyroxi ne 150 mcg tablet 09-02 00:00: 00 No 1mcg Dose Unknown 09-02 00:00: 00 No Dose Unknown 09-02 00:00: 00 No gabapentin 300 mg capsule 09-02 00:00: 00 No 1mg gabapentin 300 mg capsule 09-02 00:00: 00 No 1mg Dose Unknown 09-02 00:00: 00 No phenytoin 100 mg/4 mL oral suspension 09-02 00:00: 00 No 1(21)/7 5 mg (7) phenytoin 100 mg/4 mL oral suspension 09-02 00:00: 00 No 1(21)/7 5 mg (7) phenytoin 100 mg/4 mL oral suspension 09-02 00:00: 00 No 1(21)/7 5 mg (7) lisinopril 10 mg tablet 09-02 00:00: 00 No 1mg ibuprofen 600 mg tablet 09-02 00:00: 00 No 1mg ibuprofen 600 mg tablet 09-02 00:00: 00 No 1mg lisinopril 10 mg tablet 09-02 00:00: 00 No 1mg ibuprofen 600 mg tablet 09-02 00:00: 00 No 1mg ibuprofen 600 mg tablet 09-02 00:00: 00 No 1mg lisinopril 10 mg tablet 09-02 00:00: 00 No 1mg lisinopril 10 mg tablet 09-02 00:00: 00 No 1mg Dose Unknown 09-02 00:00: 00 No montelukast 10 mg tablet 09-02 00:00: 00 No 1mg lorazepam 0.5 mg tablet 09-02 00:00: 00 No 1mg montelukast 10 mg tablet 09-02 00:00: 00 No 1mg Dose Unknown 09-02 00:00: 00 No levothyroxi ne 150 mcg tablet 09-02 00:00: 00 No 1mcg levothyroxi ne 150 mcg tablet 09-02 00:00: 00 No 1mcg Dose Unknown 09-02 00:00: 00 No Dose Unknown 09-02 00:00: 00 No gabapentin 300 mg capsule 09-02 00:00: 00 No 1mg gabapentin 300 mg capsule 09-02 00:00: 00 No 1mg Dose Unknown 09-02 00:00: 00 No phenytoin 100 mg/4 mL oral suspension 09-02 00:00: 00 No 1(21)/7 5 mg (7) phenytoin 100 mg/4 mL oral suspension 09-02 00:00: 00 No 1(21)/7 5 mg (7) phenytoin 100 mg/4 mL oral suspension 09-02 00:00: 00 No 1(21)/7 5 mg (7) lisinopril 10 mg tablet 09-02 00:00: 00 No 1mg lisinopril 10 mg tablet 09-02 00:00: 00 No 1mg lisinopril 10 mg tablet 09-02 00:00: 00 No 1mg ibuprofen 600 mg tablet 09-02 00:00: 00 No 1mg ibuprofen 600 mg tablet 09-02 00:00: 00 No 1mg lisinopril 10 mg tablet 09-02 00:00: 00 No 1mg lisinopril 10 mg tablet 09-02 00:00: 00 No 1mg Dose Unknown 09-02 00:00: 00 No montelukast 10 mg tablet 09-02 00:00: 00 No 1mg lorazepam 0.5 mg tablet 09-02 00:00: 00 No 1mg montelukast 10 mg tablet 09-02 00:00: 00 No 1mg Dose Unknown 09-02 00:00: 00 No levothyroxi ne 150 mcg tablet 09-02 00:00: 00 No 1mcg levothyroxi ne 150 mcg tablet 09-02 00:00: 00 No 1mcg Dose Unknown 09-02 00:00: 00 No Dose Unknown 09-02 00:00: 00 No gabapentin 300 mg capsule 09-02 00:00: 00 No 1mg gabapentin 300 mg capsule 09-02 00:00: 00 No 1mg Dose Unknown 09-02 00:00: 00 No phenytoin 100 mg/4 mL oral suspension 09-02 00:00: 00 No 1(21)/7 5 mg (7) phenytoin 100 mg/4 mL oral suspension 09-02 00:00: 00 No 1(21)/7 5 mg (7) phenytoin 100 mg/4 mL oral suspension 09-02 00:00: 00 No 1(21)/7 5 mg (7) Dose Unknown 09-02 00:00: 00 No montelukast 10 mg tablet 09-02 00:00: 00 No 1mg FLUTICASONE PROPIONATE 50 mcg/actuati on nasal spray 2019-04 015 00:00: 00 Yes [id number] SHAKE LIQUID AND USE 2 SPRAYS IN EACH NOSTRIL DAILY [facility] FLUTICASONE PROPIONATE 50 mcg/actuati on nasal spray 2019-04 0-15 00:00: 00 Yes [id number] SHAKE LIQUID AND USE 2 SPRAYS IN EACH NOSTRIL DAILY [facility] FLUTICASONE PROPIONATE 50 mcg/actuati on nasal spray 2019-04 015 00:00: 00 Yes [id number] SHAKE LIQUID AND USE 2 SPRAYS IN EACH NOSTRIL DAILY [facility] FLUTICASONE PROPIONATE 50 mcg/actuati on nasal spray 2019-04 0-15 00:00: 00 Yes [id number] SHAKE LIQUID AND USE 2 SPRAYS IN EACH NOSTRIL DAILY [facility] FLUTICASONE PROPIONATE 50 mcg/actuati on nasal spray 2020-1 0-15 00:00: 00 Yes [id number] SHAKE LIQUID AND USE 2 SPRAYS IN EACH NOSTRIL DAILY [facility] FLUTICASONE PROPIONATE 50 mcg/actuati on nasal spray 2020-1 0-15 00:00: 00 Yes [id number] SHAKE LIQUID AND USE 2 SPRAYS IN EACH NOSTRIL DAILY [facility] FLUTICASONE PROPIONATE 50 mcg/actuati on nasal spray 2020-1 0-15 00:00: 00 Yes [id number] SHAKE LIQUID AND USE 2 SPRAYS IN EACH NOSTRIL DAILY [facility] FLUTICASONE PROPIONATE 50 mcg/actuati on nasal spray 2019-1 0-15 00:00: 00 Yes [id number] SHAKE LIQUID AND USE 2 SPRAYS IN EACH NOSTRIL DAILY [facility] FLUTICASONE PROPIONATE 50 mcg/actuati on nasal spray 2019-1 0-15 00:00: 00 Yes [id number] SHAKE LIQUID AND USE 2 SPRAYS IN EACH NOSTRIL DAILY [facility] FLUTICASONE PROPIONATE 50 mcg/actuati on nasal spray 2020-1 0-15 00:00: 00 Yes [id number] SHAKE LIQUID AND USE 2 SPRAYS IN EACH NOSTRIL DAILY [facility] FLUTICASONE PROPIONATE 50 mcg/actuati on nasal spray 2020-1 0-15 00:00: 00 Yes [id number] SHAKE LIQUID AND USE 2 SPRAYS IN EACH NOSTRIL DAILY [facility] FLUTICASONE PROPIONATE 50 mcg/actuati on nasal spray 2020-1 0-15 00:00: 00 Yes [id number] SHAKE LIQUID AND USE 2 SPRAYS IN EACH NOSTRIL DAILY [facility] FLUTICASONE PROPIONATE 50 mcg/actuati on nasal spray 2020-1 0-15 00:00: 00 Yes [id number] SHAKE LIQUID AND USE 2 SPRAYS IN EACH NOSTRIL DAILY [facility] FLUTICASONE PROPIONATE 50 mcg/actuati on nasal spray 2020-1 0-15 00:00: 00 Yes [id number] SHAKE LIQUID AND USE 2 SPRAYS IN EACH NOSTRIL DAILY [facility] FLUTICASONE PROPIONATE 50 mcg/actuati on nasal spray 2020-1 0-15 00:00: 00 Yes [id number] SHAKE LIQUID AND USE 2 SPRAYS IN EACH NOSTRIL DAILY [facility] FLUTICASONE PROPIONATE 50 mcg/actuati on nasal spray 2020-1 0-15 00:00: 00 Yes [id number] SHAKE LIQUID AND USE 2 SPRAYS IN EACH NOSTRIL DAILY [facility] FLUTICASONE PROPIONATE 50 mcg/actuati on nasal spray 2020-1 0-15 00:00: 00 Yes [id number] SHAKE LIQUID AND USE 2 SPRAYS IN EACH NOSTRIL DAILY [facility] FLUTICASONE PROPIONATE 50 mcg/actuati on nasal spray 2019-1 0-15 00:00: 00 Yes [id number] SHAKE LIQUID AND USE 2 SPRAYS IN EACH NOSTRIL DAILY [facility] FLUTICASONE PROPIONATE 50 mcg/actuati on nasal spray 2019-1 0-15 00:00: 00 Yes [id number] SHAKE LIQUID AND USE 2 SPRAYS IN EACH NOSTRIL DAILY [facility] FLUTICASONE PROPIONATE 50 mcg/actuati on nasal spray 2020-1 0-15 00:00: 00 Yes [id number] SHAKE LIQUID AND USE 2 SPRAYS IN EACH NOSTRIL DAILY [facility] FLUTICASONE PROPIONATE 50 mcg/actuati on nasal spray 2020-1 0-15 00:00: 00 Yes [id number] SHAKE LIQUID AND USE 2 SPRAYS IN EACH NOSTRIL DAILY [facility] FLUTICASONE PROPIONATE 50 mcg/actuati on nasal spray 2020-1 0-15 00:00: 00 Yes [id number] SHAKE LIQUID AND USE 2 SPRAYS IN EACH NOSTRIL DAILY [facility] FLUTICASONE PROPIONATE 50 mcg/actuati on nasal spray 2020-1 0-15 00:00: 00 Yes [id number] SHAKE LIQUID AND USE 2 SPRAYS IN EACH NOSTRIL DAILY [facility] FLUTICASONE PROPIONATE 50 mcg/actuati on nasal spray 2020-1 0-15 00:00: 00 Yes [id number] SHAKE LIQUID AND USE 2 SPRAYS IN EACH NOSTRIL DAILY [facility] FL[facility]IONATE 50 mcg/actuati on nasal spray 2020-1 0-15 00:00: 00 Yes [id number] SHAKE LIQUID AND USE 2 SPRAYS IN EACH NOSTRIL DAILY [facility] 50 mcg/actuati on nasal spray 2020-1 0-15 00:00: 00 Yes [id number] SHAKE LIQUID AND USE 2 SPRAYS IN EACH NOSTRIL DAILY [facility] FLUTICASONE PROPIONATE 50 mcg/actuati on nasal spray 2019-1 0-15 00:00: 00 Yes [id number] SHAKE LIQUID AND USE 2 SPRAYS IN EACH NOSTRIL DAILY [facility] FLUTIC[facility]ONE PROPIONATE 50 mcg/actuati on nasal spray 2019-1 0-15 00:00: 00 Yes [id number] SHAKE LIQUID AND USE 2 SPRAYS IN EACH NOSTRIL DAILY [facility] FLUTICASONE PROPIONATE 50 mcg/actuati on nasal spray 2019-1 0-15 00:00: 00 Yes [id number] SHAKE LIQUID AND USE 2 SPRAYS IN EACH NOSTRIL DAILY [facility] FLUTICASONE PROPIONATE 50 mcg/actuati on nasal spray 2019-1 0-15 00:00: 00 Yes [id number] SHAKE LIQUID AND USE 2 SPRAYS IN EACH NOSTRIL DAILY [facility] FLUTICASONE PROPIONATE 50 mcg/actuati on nasal spray 2019-1 0-15 00:00: 00 Yes [id number] SHAKE LIQUID AND USE 2 SPRAYS IN EACH NOSTRIL DAILY [facility] doxycycline monohydrate 100 mg capsule 2020-0 8-20 00:00: 00 Yes [id number] 100mg Take 1 capsule by mouth 2 (two) times daily. [facility] doxycycline monohydrate 100 mg capsule 2020-0 8-20 00:00: 00 Yes [id number] 100mg Take 1 capsule by mouth 2 (two) times daily. [facility] doxycycline monohydrate 100 mg capsule 2020-0 8-20 00:00: 00 Yes [id number] 100mg Take 1 capsule by mouth 2 (two) times daily. [facility] doxycycline monohydrate 100 mg capsule 2020-0 8-20 00:00: 00 Yes [id number] 100mg Take 1 capsule by mouth 2 (two) times daily. [facility] doxycycline monohydrate 100 mg capsule 2020-0 8-20 00:00: 00 Yes [id number] 100mg Take 1 capsule by mouth 2 (two) times daily. [facility] doxycycline monohydrate 100 mg capsule 2020-0 8-20 00:00: 00 Yes [id number] 100mg Take 1 capsule by mouth 2 (two) times daily. [facility] doxycycline monohydrate 100 mg capsule 2020-0 8-20 00:00: 00 Yes [id number] 100mg Take 1 capsule by mouth 2 (two) times daily. [facility] doxycycline monohydrate 100 mg capsule 2020-0 8-20 00:00: 00 Yes [id number] 100mg Take 1 capsule by mouth 2 (two) times daily. [facility] doxycycline monohydrate 100 mg capsule 2020-0 8-20 00:00: 00 Yes [id number] 100mg Take 1 capsule by mouth 2 (two) times daily. [facility] doxycycline monohydrate 100 mg capsule 2020-0 8-20 00:00: 00 Yes [id number] 100mg Take 1 capsule by mouth 2 (two) times daily. [facility] doxycycline monohydrate 100 mg capsule 2020-0 8-20 00:00: 00 04-25 00:00 :00 No [id number] 100mg Take 1 capsule by mouth 2 (two) times daily. [facility] doxycycline monohydrate 100 mg capsule 2020-0 8-20 00:00: 00 04-25 00:00 :00 No [id number] 100mg Take 1 capsule by mouth 2 (two) times daily. [facility] doxycycline monohydrate 100 mg capsule 2020-0 8-20 00:00: 00 04-25 00:00 :00 No [id number] 100mg Take 1 capsule by mouth 2 (two) times daily. [facility] doxycycline monohydrate 100 mg capsule 2020-0 8-20 00:00: 00 04-25 00:00 :00 No [id number] 100mg Take 1 capsule by mouth 2 (two) times daily. [facility] doxycycline monohydrate 100 mg capsule 2019-0 820 00:00: 00 04-25 00:00 :00 No [id number] 100mg Take 1 capsule by mouth 2 (two) times daily. [facility] doxycycline monohydrate 100 mg capsule 2019-0 8-20 00:00: 00 04-25 00:00 :00 No [id number] 100mg Take 1 capsule by mouth 2 (two) times daily. [facility] pantoprazol e 40 mg EC tablet 0 818 00:00: 00 Yes [id number] 40mg Take 1 tablet by mouth once daily as needed for Indigestio n. [facility] LORazepam 1 mg tablet 0 18 00:00: 00 Yes [id number] 1mg Take 1 tablet by mouth once daily as needed for Anxiety or Agitation. [facility] pantoprazol e 40 mg EC tablet 0 18 00:00: 00 Yes [id number] 40mg Take 1 tablet by mouth once daily as needed for Indigestio n. [facility] LORazepam 1 mg tablet 0 18 00:00: 00 Yes [id number] 1mg Take 1 tablet by mouth once daily as needed for Anxiety or Agitation. [facility] pantoprazol e 40 mg EC tablet 0 18 00:00: 00 Yes [id number] 40mg Take 1 tablet by mouth once daily as needed for Indigestio n. [facility] LORazepam 1 mg tablet 0 18 00:00: 00 Yes [id number] 1mg Take 1 tablet by mouth once daily as needed for Anxiety or Agitation. [facility] pantoprazol e 40 mg EC tablet 0 818 00:00: 00 Yes [id number] 40mg Take 1 tablet by mouth once daily as needed for Indigestio n. [facility] LORazepam 1 mg tablet 2019-0 818 00:00: 00 Yes [id number] 1mg Take 1 tablet by mouth once daily as needed for Anxiety or Agitation. [facility] pantoprazol e 40 mg EC tablet 2019-0 8-18 00:00: 00 Yes [id number] 40mg Take 1 tablet by mouth once daily as needed for Indigestio n. [facility] LORazepam 1 mg tablet 2019-0 818 00:00: 00 Yes [id number] 1mg Take 1 tablet by mouth once daily as needed for Anxiety or Agitation. [facility] pantoprazol e 40 mg EC tablet 2019-0 8-18 00:00: 00 Yes [id number] 40mg Take 1 tablet by mouth once daily as needed for Indigestio n. [facility] LORazepam 1 mg tablet 2019-0 818 00:00: 00 Yes [id number] 1mg Take 1 tablet by mouth once daily as needed for Anxiety or Agitation. [facility] pantoprazol e 40 mg EC tablet 2019-0 818 00:00: 00 Yes [id number] 40mg Take 1 tablet by mouth once daily as needed for Indigestio n. [facility] LORazepam 1 mg tablet 2019-0 818 00:00: 00 Yes [id number] 1mg Take 1 tablet by mouth once daily as needed for Anxiety or Agitation. [facility] pantoprazol e 40 mg EC tablet 2019-0 818 00:00: 00 Yes [id number] 40mg Take 1 tablet by mouth once daily as needed for Indigestio n. [facility] LORazepam 1 mg tablet 2019-0 818 00:00: 00 Yes [id number] 1mg Take 1 tablet by mouth once daily as needed for Anxiety or Agitation. [facility] pantoprazol e 40 mg EC tablet 2019-0 818 00:00: 00 Yes [id number] 40mg Take 1 tablet by mouth once daily as needed for Indigestio n. [facility] LORazepam 1 mg tablet 2019-0 8-18 00:00: 00 Yes [id number] 1mg Take 1 tablet by mouth once daily as needed for Anxiety or Agitation. [facility] pantoprazol e 40 mg EC tablet 2019-0 8-18 00:00: 00 Yes [id number] 40mg Take 1 tablet by mouth once daily as needed for Indigestio n. [facility] LORazepam 1 mg tablet 2019-0 8-18 00:00: 00 Yes [id number] 1mg Take 1 tablet by mouth once daily as needed for Anxiety or Agitation. [facility] pantoprazol e 40 mg EC tablet 0 18 00:00: 00 Yes [id number] 40mg Take 1 tablet by mouth once daily as needed for Indigestio n. [facility] LORazepam 1 mg tablet 0 818 00:00: 00 Yes [id number] 1mg Take 1 tablet by mouth once daily as needed for Anxiety or Agitation. [facility] pantoprazol e 40 mg EC tablet 0 18 00:00: 00 Yes [id number] 40mg Take 1 tablet by mouth once daily as needed for Indigestio n. [facility] LORazepam 1 mg tablet 0 818 00:00: 00 Yes [id number] 1mg Take 1 tablet by mouth once daily as needed for Anxiety or Agitation. [facility] pantoprazol e 40 mg EC tablet 0 18 00:00: 00 Yes [id number] 40mg Take 1 tablet by mouth once daily as needed for Indigestio n. [facility] LORazepam 1 mg tablet 0 18 00:00: 00 Yes [id number] 1mg Take 1 tablet by mouth once daily as needed for Anxiety or Agitation. [facility] pantoprazol e 40 mg EC tablet 0 18 00:00: 00 04-25 00:00 :00 No [id number] 40mg Take 1 tablet by mouth once daily as needed for Indigestio n. [facility] LORazepam 1 mg tablet 0 18 00:00: 00 04-25 00:00 :00 No [id number] 1mg Take 1 tablet by mouth once daily as needed for Anxiety or Agitation. [facility] pantoprazol e 40 mg EC tablet 0 18 00:00: 00 04-25 00:00 :00 No [id number] 40mg Take 1 tablet by mouth once daily as needed for Indigestio n. [facility] LORazepam 1 mg tablet 18 00:00: 00 04-25 00:00 :00 No [id number] 1mg Take 1 tablet by mouth once daily as needed for Anxiety or Agitation. [facility] pantoprazol e 40 mg EC tablet 12-01 00:00: 04-25 00:00 :00 No [id number] 40mg Take 1 tablet by mouth once daily as needed for Indigestio n. [facility] LORazepam 1 mg tablet 12-01 00:00: 04-25 00:00 :00 No [id number] 1mg Take 1 tablet by mouth once daily as needed for Anxiety or Agitation. [facility] pantoprazol e 40 mg EC tablet 12-01 00:00: 00 04-25 00:00 :00 No [id number] 40mg Take 1 tablet by mouth once daily as needed for Indigestio n. [facility] LORazepam 1 mg tablet 12-01 00:00: 00 04-25 00:00 :00 No [id number] 1mg Take 1 tablet by mouth once daily as needed for Anxiety or Agitation. [facility] pantoprazol e 40 mg EC tablet 12-01 00:00: 00 04-25 00:00 :00 No [id number] 40mg Take 1 tablet by mouth once daily as needed for Indigestio n. [facility] LORazepam 1 mg tablet 12-01 00:00: 00 04-25 00:00 :00 No [id number] 1mg Take 1 tablet by mouth once daily as needed for Anxiety or Agitation. [facility] pantoprazol e 40 mg EC tablet 12-01 00:00: 00 04-25 00:00 :00 No [id number] 40mg Take 1 tablet by mouth once daily as needed for Indigestio n. [facility] LORazepam 1 mg tablet 12-01 00:00: 00 04-25 00:00 :00 No [id number] 1mg Take 1 tablet by mouth once daily as needed for Anxiety or Agitation. [facility] doxycycline hyclate 100 mg capsule 12-01 00:00: 12-16 04:59 :00 No [id number] 100mg Take 1 capsule by mouth every 12 (twelve) hours for 14 days. [facility] doxycycline hyclate 100 mg capsule 18 00:00: 00 12-16 04:59 :00 No [id number] 100mg Take 1 capsule by mouth every 12 (twelve) hours for 14 days. [facility] doxycycline hyclate 100 mg capsule 12-01 00:00: 00 12-16 04:59 :00 No [id number] 100mg Take 1 capsule by mouth every 12 (twelve) hours for 14 days. [facility] doxycycline hyclate 100 mg capsule 12-01 00:00: 12-03 00:00 :00 No [id number] 100mg Take 1 capsule by mouth every 12 (twelve) hours for 14 days. [facility] FLUoxetine 60 mg tablet 11-05 00:00: 00 Yes 60mg Take 60 mg by mouth daily. [facility] FLUoxetine 60 mg tablet 11-05 00:00: 00 Yes 60mg Take 60 mg by mouth daily. [facility] FLUoxetine 60 mg tablet 11-05 00:00: 00 Yes 60mg Take 60 mg by mouth daily. [facility] FLUoxetine 60 mg tablet 11-05 00:00: 00 Yes 60mg Take 60 mg by mouth daily. [facility] FLUoxetine 60 mg tablet 11-05 00:00: 00 Yes 60mg Take 60 mg by mouth daily. [facility] FLUoxetine 60 mg tablet 11-05 00:00: 00 Yes 60mg Take 60 mg by mouth daily. [facility] FLUoxetine 60 mg tablet 11-05 00:00: 00 Yes 60mg Take 60 mg by mouth daily. [facility] FLUoxetine 60 mg tablet 11-05 00:00: 00 Yes 60mg Take 60 mg by mouth daily. [facility] FLUoxetine 60 mg tablet 11-05 00:00: 00 Yes 60mg Take 60 mg by mouth daily. [facility] FLUoxetine 60 mg tablet 11-05 00:00: 00 Yes 60mg Take 60 mg by mouth daily. [facility] FLUoxetine 60 mg tablet 11-05 00:00: 00 Yes 60mg Take 60 mg by mouth daily. [facility] FLUoxetine 60 mg tablet 11-05 00:00: 00 Yes 60mg Take 60 mg by mouth daily. [facility] FLUoxetine 60 mg tablet 11-05 00:00: 00 Yes 60mg Take 60 mg by mouth daily. [facility] FLUoxetine 60 mg tablet 11-05 00:00: 00 Yes 60mg Take 60 mg by mouth daily. [facility] FLUoxetine 60 mg tablet 11-05 00:00: 00 Yes 60mg Take 60 mg by mouth daily. [facility] FLUoxetine 60 mg tablet 11-05 00:00: 00 Yes 60mg Take 60 mg by mouth daily. [facility] FLUoxetine 60 mg tablet 11-05 00:00: 00 Yes 60mg Take 60 mg by mouth daily. [facility] FLUoxetine 60 mg tablet 11-05 00:00: 00 Yes 60mg Take 60 mg by mouth daily. [facility] FLUoxetine 60 mg tablet 11-05 00:00: 00 Yes 60mg Take 60 mg by mouth daily. [facility] FLUoxetine 60 mg tablet 11-05 00:00: 00 Yes 60mg Take 60 mg by mouth daily. [facility] FLUoxetine 60 mg tablet 11-05 00:00: 00 Yes 60mg Take 60 mg by mouth daily. [facility] FLUoxetine 60 mg tablet 11-05 00:00: 00 Yes 60mg Take 60 mg by mouth daily. [facility] FLUoxetine 60 mg tablet 11-05 00:00: 00 Yes 60mg Take 60 mg by mouth daily. [facility] FLUoxetine 60 mg tablet 11-05 00:00: 00 Yes 60mg Take 60 mg by mouth daily. [facility] FLUoxetine 60 mg tablet 11-05 00:00: 00 Yes 60mg Take 60 mg by mouth daily. [facility] FLUoxetine 60 mg tablet 11-05 00:00: 00 Yes 60mg Take 60 mg by mouth daily. [facility] FLUoxetine 60 mg tablet 11-05 00:00: 00 Yes 60mg Take 60 mg by mouth daily. [facility] FLUoxetine 60 mg tablet 11-05 00:00: 00 Yes 60mg Take 60 mg by mouth daily. [facility] FLUoxetine 60 mg tablet 11-05 00:00: 00 Yes 60mg Take 60 mg by mouth daily. [facility] FLUoxetine 60 mg tablet 11-05 00:00: 00 Yes 60mg Take 60 mg by mouth daily. [facility] FLUoxetine 60 mg tablet 11-05 00:00: 00 Yes 60mg Take 60 mg by mouth daily. [facility] FLUoxetine 60 mg tablet 11-05 00:00: 00 Yes 60mg Take 60 mg by mouth daily. [facility] FLUoxetine 60 mg tablet 11-05 00:00: 00 Yes 60mg Take 60 mg by mouth daily. [facility] FLUoxetine 60 mg tablet 11-05 00:00: 00 Yes 60mg Take 60 mg by mouth daily. [facility] FLUoxetine 60 mg tablet 11-05 00:00: 00 Yes 60mg Take 60 mg by mouth daily. [facility] FLUoxetine 60 mg tablet 11-05 00:00: 00 Yes 60mg Take 60 mg by mouth daily. [facility] FLUoxetine 60 mg tablet 11-05 00:00: 00 Yes 60mg Take 60 mg by mouth daily. [facility] FLUoxetine 60 mg tablet 11-05 00:00: 00 Yes 60mg Take 60 mg by mouth daily. [facility] FLUoxetine 60 mg tablet 11-05 00:00: 00 Yes 60mg Take 60 mg by mouth daily. [facility] FLUoxetine 60 mg tablet 11-05 00:00: 00 Yes 60mg Take 60 mg by mouth daily. [facility] QUEtiapine 200 mg tablet 11-03 00:00: 00 Yes 200mg Take 200 mg by mouth at bedtime. [facility] QUEtiapine 200 mg tablet 11-03 00:00: 00 Yes 200mg Take 200 mg by mouth at bedtime. [facility] QUEtiapine 200 mg tablet 11-03 00:00: 00 Yes 200mg Take 200 mg by mouth at bedtime. [facility] QUEtiapine 200 mg tablet 11-03 00:00: 00 Yes 200mg Take 200 mg by mouth at bedtime. [facility] QUEtiapine 200 mg tablet 11-03 00:00: 00 Yes 200mg Take 200 mg by mouth at bedtime. [facility] QUEtiapine 200 mg tablet 11-03 00:00: 00 Yes 200mg Take 200 mg by mouth at bedtime. [facility] QUEtiapine 200 mg tablet 11-03 00:00: 00 Yes 200mg Take 200 mg by mouth at bedtime. [facility] QUEtiapine 200 mg tablet 11-03 00:00: 00 Yes 200mg Take 200 mg by mouth at bedtime. [facility] QUEtiapine 200 mg tablet 11-03 00:00: 00 Yes 200mg Take 200 mg by mouth at bedtime. [facility] QUEtiapine 200 mg tablet 11-03 00:00: 00 Yes 200mg Take 200 mg by mouth at bedtime. [facility] QUEtiapine 200 mg tablet 11-03 00:00: 00 Yes 200mg Take 200 mg by mouth at bedtime. [facility] QUEtiapine 200 mg tablet 11-03 00:00: 00 Yes 200mg Take 200 mg by mouth at bedtime. [facility] QUEtiapine 200 mg tablet 11-03 00:00: 00 Yes 200mg Take 200 mg by mouth at bedtime. [facility] QUEtiapine 200 mg tablet 11-03 00:00: 00 04-25 00:00 :00 No 200mg Take 200 mg by mouth at bedtime. [facility] QUEtiapine 200 mg tablet 0 11-03 00:00: 00 04-25 00:00 :00 No 200mg Take 200 mg by mouth at bedtime. [facility] QUEtiapine 200 mg tablet 0 11-03 00:00: 00 04-25 00:00 :00 No 200mg Take 200 mg by mouth at bedtime. [facility] QUEtiapine 200 mg tablet 0 11-03 00:00: 00 04-25 00:00 :00 No 200mg Take 200 mg by mouth at bedtime. [facility] QUEtiapine 200 mg tablet 0 11-03 00:00: 00 04-25 00:00 :00 No 200mg Take 200 mg by mouth at bedtime. [facility] QUEtiapine 200 mg tablet 0 11-03 00:00: 00 04-25 00:00 :00 No 200mg Take 200 mg by mouth at bedtime. [facility] pantoprazol e 40 mg EC tablet 0 10-06 00:00: 00 Yes [id number] 40mg Take 1 tablet by mouth once daily as needed for Indigestio n. [facility] pantoprazol e 40 mg EC tablet 0 10-06 00:00: 00 Yes [id number] 40mg Take 1 tablet by mouth once daily as needed for Indigestio n. [facility] pantoprazol e 40 mg EC tablet 0 10-06 00:00: 00 Yes [id number] 40mg Take 1 tablet by mouth once daily as needed for Indigestio n. [facility] pantoprazol e 40 mg EC tablet 0 10-06 00:00: 00 12-01 00:00 :00 No [id number] 40mg Take 1 tablet by mouth once daily as needed for Indigestio n. [facility] pantoprazol e 40 mg EC tablet 0 10-06 00:00: 00 12-01 00:00 :00 No [id number] 40mg Take 1 tablet by mouth once daily as needed for Indigestio n. [facility] fluticasone propionate (FLONASE ALLERGY RELIEF) 50 mcg/actuati on nasal spray 2019-0 616 00:00: 00 Yes [id number] 2{spray } Use 2 Sprays in each nostril daily. [facility] LORazepam 1 mg tablet 0 16 00:00: 00 Yes [id number] 1mg Take 1 tablet by mouth once daily as needed for Anxiety or Agitation. [facility] fluticasone propionate (FLONASE ALLERGY RELIEF) 50 mcg/actuati on nasal spray 2019-0 16 00:00: 00 Yes [id number] 2{spray } Use 2 Sprays in each nostril daily. [facility] LORazepam 1 mg tablet 0 16 00:00: 00 Yes [id number] 1mg Take 1 tablet by mouth once daily as needed for Anxiety or Agitation. [facility] fluticasone propionate (FLONASE ALLERGY RELIEF) 50 mcg/actuati on nasal spray 0 16 00:00: 00 Yes [id number] 2{spray } Use 2 Sprays in each nostril daily. [facility] LORazepam 1 mg tablet 0 16 00:00: 00 Yes [id number] 1mg Take 1 tablet by mouth once daily as needed for Anxiety or Agitation. [facility] fluticasone propionate (FLONASE ALLERGY RELIEF) 50 mcg/actuati on nasal spray 0 16 00:00: 00 Yes [id number] 2{spray } Use 2 Sprays in each nostril daily. [facility] LORazepam 1 mg tablet 0 16 00:00: 00 Yes [id number] 1mg Take 1 tablet by mouth once daily as needed for Anxiety or Agitation. [facility] fluticasone propionate (FLONASE ALLERGY RELIEF) 50 mcg/actuati on nasal spray 2019-0 616 00:00: 00 Yes [id number] 2{spray } Use 2 Sprays in each nostril daily. [facility] fluticasone propionate (FLONASE ALLERGY RELIEF) 50 mcg/actuati on nasal spray 2019-0 16 00:00: 00 Yes [id number] 2{spray } Use 2 Sprays in each nostril daily. [facility] fluticasone propionate (FLONASE ALLERGY RELIEF) 50 mcg/actuati on nasal spray 2020-0 6-16 00:00: 00 Yes [id number] 2{spray } Use 2 Sprays in each nostril daily. [facility] fluticasone propionate (FLONASE ALLERGY RELIEF) 50 mcg/actuati on nasal spray 2020-0 6-16 00:00: 00 Yes [id number] 2{spray } Use 2 Sprays in each nostril daily. [facility] fluticasone propionate (FLONASE ALLERGY RELIEF) 50 mcg/actuati on nasal spray 2020-0 6-16 00:00: 00 Yes [id number] 2{spray } Use 2 Sprays in each nostril daily. [facility] fluticasone propionate (FLONASE ALLERGY RELIEF) 50 mcg/actuati on nasal spray 2020-0 6-16 00:00: 00 Yes [id number] 2{spray } Use 2 Sprays in each nostril daily. [facility] fluticasone propionate (FLONASE ALLERGY RELIEF) 50 mcg/actuati on nasal spray 2020-0 6-16 00:00: 00 Yes [id number] 2{spray } Use 2 Sprays in each nostril daily. [facility] fluticasone propionate (FLONASE ALLERGY RELIEF) 50 mcg/actuati on nasal spray 2020-0 6-16 00:00: 00 Yes [id number] 2{spray } Use 2 Sprays in each nostril daily. [facility] fluticasone propionate (FLONASE ALLERGY RELIEF) 50 mcg/actuati on nasal spray 2020-0 6-16 00:00: 00 Yes [id number] 2{spray } Use 2 Sprays in each nostril daily. [facility] fluticasone propionate (FLONASE ALLERGY RELIEF) 50 mcg/actuati on nasal spray 2020-0 6-16 00:00: 00 2020- 10-15 00:00 :00 No [id number] 2{spray } Use 2 Sprays in each nostril daily. [facility] LORazepam 1 mg tablet 0 16 00:00: 00 18 00:00 :00 No [id number] 1mg Take 1 tablet by mouth once daily as needed for Anxiety or Agitation. [facility] LORazepam 1 mg tablet 0 16 00:00: 00 18 00:00 :00 No [id number] 1mg Take 1 tablet by mouth once daily as needed for Anxiety or Agitation. [facility] lithium carbonate 300 mg tablet 0 14 00:00: 00 Yes 100mg Take 100 mg by mouth 2 (two) times daily. [facility] lithium carbonate 300 mg tablet 0 14 00:00: 00 Yes 100mg Take 100 mg by mouth 2 (two) times daily. [facility] lithium carbonate 300 mg tablet 0 14 00:00: 00 Yes 100mg Take 100 mg by mouth 2 (two) times daily. [facility] lithium carbonate 300 mg tablet 0 14 00:00: 00 Yes 100mg Take 100 mg by mouth 2 (two) times daily. [facility] lithium carbonate 300 mg tablet 0 14 00:00: 00 Yes 100mg Take 100 mg by mouth 2 (two) times daily. [facility] lithium carbonate 300 mg tablet 0 14 00:00: 00 Yes 100mg Take 100 mg by mouth 2 (two) times daily. [facility] lithium carbonate 300 mg tablet 0 14 00:00: 00 Yes 100mg Take 100 mg by mouth 2 (two) times daily. [facility] lithium carbonate 300 mg tablet 0 14 00:00: 00 Yes 100mg Take 100 mg by mouth 2 (two) times daily. [facility] lithium carbonate 300 mg tablet 0 14 00:00: 00 Yes 100mg Take 100 mg by mouth 2 (two) times daily. [facility] lithium carbonate 300 mg tablet 2019-0 14 00:00: 00 Yes 100mg Take 100 mg by mouth 2 (two) times daily. [facility] lithium carbonate 300 mg tablet 2019-0 6-14 00:00: 00 Yes 100mg Take 100 mg by mouth 2 (two) times daily. [facility] lithium carbonate 300 mg tablet 2019-0 6-14 00:00: 00 Yes 100mg Take 100 mg by mouth 2 (two) times daily. [facility] lithium carbonate 300 mg tablet 2019-0 614 00:00: 00 Yes 100mg Take 100 mg by mouth 2 (two) times daily. [facility] lithium carbonate 300 mg tablet 2019-0 14 00:00: 00 04-25 00:00 :00 No 100mg Take 100 mg by mouth 2 (two) times daily. [facility] lithium carbonate 300 mg tablet 0 14 00:00: 00 04-25 00:00 :00 No 100mg Take 100 mg by mouth 2 (two) times daily. [facility] lithium carbonate 300 mg tablet 0 14 00:00: 00 04-25 00:00 :00 No 100mg Take 100 mg by mouth 2 (two) times daily. [facility] lithium carbonate 300 mg tablet 0 14 00:00: 00 04-25 00:00 :00 No 100mg Take 100 mg by mouth 2 (two) times daily. [facility] lithium carbonate 300 mg tablet 0 14 00:00: 00 04-25 00:00 :00 No 100mg Take 100 mg by mouth 2 (two) times daily. [facility] lithium carbonate 300 mg tablet 0 14 00:00: 00 04-25 00:00 :00 No 100mg Take 100 mg by mouth 2 (two) times daily. [facility] FLUoxetine 20 mg capsule 0 09-24 00:00: 00 Yes [id number] 60mg Take 3 capsules by mouth daily. [facility] FLUoxetine 20 mg capsule 0 6 00:00: 00 Yes [id number] 60mg Take 3 capsules by mouth daily. [facility] FLUoxetine 20 mg capsule 0 09-24 00:00: 00 Yes [id number] 60mg Take 3 capsules by mouth daily. [facility] FLUoxetine 20 mg capsule 09-24 00:00: 00 Yes [id number] 60mg Take 3 capsules by mouth daily. [facility] FLUoxetine 20 mg capsule 09-24 00:00: 00 Yes [id number] 60mg Take 3 capsules by mouth daily. [facility] FLUoxetine 20 mg capsule 09-24 00:00: 00 12-01 00:00 :00 No [id number] 60mg Take 3 capsules by mouth daily. [facility] FLUoxetine 20 mg capsule 09-24 00:00: 00 12-01 00:00 :00 No [id number] 60mg Take 3 capsules by mouth daily. [facility] pantoprazol e 40 mg EC tablet 09-03 00:00: 00 Yes [id number] 40mg Take 1 tablet by mouth once daily as needed for Indigestio n. [facility] pantoprazol e 40 mg EC tablet 09-03 00:00: 00 Yes [id number] 40mg Take 1 tablet by mouth once daily as needed for Indigestio n. [facility] pantoprazol e 40 mg EC tablet 09-03 00:00: 00 Yes [id number] 40mg Take 1 tablet by mouth once daily as needed for Indigestio n. [facility] pantoprazol e 40 mg EC tablet 09-03 00:00: 00 10-06 00:00 :00 No [id number] 40mg Take 1 tablet by mouth once daily as needed for Indigestio n. [facility] cariprazine HCl (VRAYLAR ORAL) 09-01 16:24: 07 09-01 00:00 :00 No 10mg Take 10 mg by mouth at bedtime. [facility] phenytoin Extended (DILANTIN) 100 mg capsule 09-01 00:00: 00 Yes [id number] 400mg Take 4 capsules by mouth daily. [facility] levothyroxi ne 150 mcg tablet 09-01 00:00: 00 Yes [id number] 150ug Take 1 tablet by mouth every morning. [facility] cholestyram ine 4 gram powder 09-01 00:00: 00 Yes [id number] 2g Take 0.5 Packets by mouth 3 (three) times daily with meals. [facility] phenytoin Extended (DILANTIN) 100 mg capsule 09-01 00:00: 00 Yes [id number] 400mg Take 4 capsules by mouth daily. [facility] levothyroxi ne 150 mcg tablet 09-01 00:00: 00 Yes [id number] 150ug Take 1 tablet by mouth every morning. [facility] cholestyram ine 4 gram powder 09-01 00:00: 00 Yes [id number] 2g Take 0.5 Packets by mouth 3 (three) times daily with meals. [facility] phenytoin Extended (DILANTIN) 100 mg capsule 09-01 00:00: 00 Yes [id number] 400mg Take 4 capsules by mouth daily. [facility] levothyroxi ne 150 mcg tablet 09-01 00:00: 00 Yes [id number] 150ug Take 1 tablet by mouth every morning. [facility] cholestyram ine 4 gram powder 09-01 00:00: 00 Yes [id number] 2g Take 0.5 Packets by mouth 3 (three) times daily with meals. [facility] phenytoin Extended (DILANTIN) 100 mg capsule 09-01 00:00: 00 Yes [id number] 400mg Take 4 capsules by mouth daily. [facility] levothyroxi ne 150 mcg tablet 09-01 00:00: 00 Yes [id number] 150ug Take 1 tablet by mouth every morning. [facility] cholestyram ine 4 gram powder 09-01 00:00: 00 Yes [id number] 2g Take 0.5 Packets by mouth 3 (three) times daily with meals. [facility] phenytoin Extended (DILANTIN) 100 mg capsule 09-01 00:00: 00 Yes [id number] 400mg Take 4 capsules by mouth daily. [facility] levothyroxi ne 150 mcg tablet 09-01 00:00: 00 Yes [id number] 150ug Take 1 tablet by mouth every morning. [facility] cholestyram ine 4 gram powder 09-01 00:00: 00 Yes [id number] 2g Take 0.5 Packets by mouth 3 (three) times daily with meals. [facility] phenytoin Extended (DILANTIN) 100 mg capsule 09-01 00:00: 00 Yes [id number] 400mg Take 4 capsules by mouth daily. [facility] levothyroxi ne 150 mcg tablet 09-01 00:00: 00 Yes [id number] 150ug Take 1 tablet by mouth every morning. [facility] cholestyram ine 4 gram powder 09-01 00:00: 00 Yes [id number] 2g Take 0.5 Packets by mouth 3 (three) times daily with meals. [facility] phenytoin Extended (DILANTIN) 100 mg capsule 09-01 00:00: 00 Yes [id number] 400mg Take 4 capsules by mouth daily. [facility] levothyroxi ne 150 mcg tablet 09-01 00:00: 00 Yes [id number] 150ug Take 1 tablet by mouth every morning. [facility] cholestyram ine 4 gram powder 09-01 00:00: 00 Yes [id number] 2g Take 0.5 Packets by mouth 3 (three) times daily with meals. [facility] phenytoin Extended (DILANTIN) 100 mg capsule 09-01 00:00: 00 Yes [id number] 400mg Take 4 capsules by mouth daily. [facility] levothyroxi ne 150 mcg tablet 09-01 00:00: 00 Yes [id number] 150ug Take 1 tablet by mouth every morning. [facility] cholestyram ine 4 gram powder 09-01 00:00: 00 Yes [id number] 2g Take 0.5 Packets by mouth 3 (three) times daily with meals. [facility] phenytoin Extended (DILANTIN) 100 mg capsule 09-01 00:00: 00 Yes [id number] 400mg Take 4 capsules by mouth daily. [facility] levothyroxi ne 150 mcg tablet 09-01 00:00: 00 Yes [id number] 150ug Take 1 tablet by mouth every morning. [facility] cholestyram ine 4 gram powder 09-01 00:00: 00 Yes [id number] 2g Take 0.5 Packets by mouth 3 (three) times daily with meals. [facility] phenytoin Extended (DILANTIN) 100 mg capsule 09-01 00:00: 00 Yes [id number] 400mg Take 4 capsules by mouth daily. [facility] levothyroxi ne 150 mcg tablet 09-01 00:00: 00 Yes [id number] 150ug Take 1 tablet by mouth every morning. [facility] cholestyram ine 4 gram powder 09-01 00:00: 00 Yes [id number] 2g Take 0.5 Packets by mouth 3 (three) times daily with meals. [facility] phenytoin Extended (DILANTIN) 100 mg capsule 09-01 00:00: 00 Yes [id number] 400mg Take 4 capsules by mouth daily. [facility] levothyroxi ne 150 mcg tablet 09-01 00:00: 00 Yes [id number] 150ug Take 1 tablet by mouth every morning. [facility] cholestyram ine 4 gram powder 09-01 00:00: 00 Yes [id number] 2g Take 0.5 Packets by mouth 3 (three) times daily with meals. [facility] phenytoin Extended (DILANTIN) 100 mg capsule 09-01 00:00: 00 Yes [id number] 400mg Take 4 capsules by mouth daily. [facility] levothyroxi ne 150 mcg tablet 09-01 00:00: 00 Yes [id number] 150ug Take 1 tablet by mouth every morning. [facility] cholestyram ine 4 gram powder 09-01 00:00: 00 Yes [id number] 2g Take 0.5 Packets by mouth 3 (three) times daily with meals. [facility] phenytoin Extended (DILANTIN) 100 mg capsule 09-01 00:00: 00 Yes [id number] 400mg Take 4 capsules by mouth daily. [facility] levothyroxi ne 150 mcg tablet 09-01 00:00: 00 Yes [id number] 150ug Take 1 tablet by mouth every morning. [facility] cholestyram ine 4 gram powder 09-01 00:00: 00 Yes [id number] 2g Take 0.5 Packets by mouth 3 (three) times daily with meals. [facility] phenytoin Extended (DILANTIN) 100 mg capsule 09-01 00:00: 00 Yes [id number] 400mg Take 4 capsules by mouth daily. [facility] levothyroxi ne 150 mcg tablet 09-01 00:00: 00 Yes [id number] 150ug Take 1 tablet by mouth every morning. [facility] cholestyram ine 4 gram powder 09-01 00:00: 00 Yes [id number] 2g Take 0.5 Packets by mouth 3 (three) times daily with meals. [facility] phenytoin Extended (DILANTIN) 100 mg capsule 09-01 00:00: 00 Yes [id number] 400mg Take 4 capsules by mouth daily. [facility] levothyroxi ne 150 mcg tablet 09-01 00:00: 00 Yes [id number] 150ug Take 1 tablet by mouth every morning. [facility] cholestyram ine 4 gram powder 09-01 00:00: 00 Yes [id number] 2g Take 0.5 Packets by mouth 3 (three) times daily with meals. [facility] phenytoin Extended (DILANTIN) 100 mg capsule 09-01 00:00: 00 Yes [id number] 400mg Take 4 capsules by mouth daily. [facility] levothyroxi ne 150 mcg tablet 09-01 00:00: 00 Yes [id number] 150ug Take 1 tablet by mouth every morning. [facility] cholestyram ine 4 gram powder 09-01 00:00: 00 Yes [id number] 2g Take 0.5 Packets by mouth 3 (three) times daily with meals. [facility] phenytoin Extended (DILANTIN) 100 mg capsule 09-01 00:00: 00 Yes [id number] 400mg Take 4 capsules by mouth daily. [facility] levothyroxi ne 150 mcg tablet 09-01 00:00: 00 Yes [id number] 150ug Take 1 tablet by mouth every morning. [facility] cholestyram ine 4 gram powder 09-01 00:00: 00 Yes [id number] 2g Take 0.5 Packets by mouth 3 (three) times daily with meals. [facility] phenytoin Extended (DILANTIN) 100 mg capsule 09-01 00:00: 00 Yes [id number] 400mg Take 4 capsules by mouth daily. [facility] levothyroxi ne 150 mcg tablet 09-01 00:00: 00 Yes [id number] 150ug Take 1 tablet by mouth every morning. [facility] cholestyram ine 4 gram powder 09-01 00:00: 00 Yes [id number] 2g Take 0.5 Packets by mouth 3 (three) times daily with meals. [facility] phenytoin Extended (DILANTIN) 100 mg capsule 09-01 00:00: 00 Yes [id number] 400mg Take 4 capsules by mouth daily. [facility] levothyroxi ne 150 mcg tablet 09-01 00:00: 00 Yes [id number] 150ug Take 1 tablet by mouth every morning. [facility] cholestyram ine 4 gram powder 09-01 00:00: 00 Yes [id number] 2g Take 0.5 Packets by mouth 3 (three) times daily with meals. [facility] nystatin 100,000 unit/gram powder 09-01 00:00: 00 Yes [id number] Apply to area(s) 2 (two) times daily. [facility] phenytoin Extended (DILANTIN) 100 mg capsule 09-01 00:00: 00 Yes [id number] 400mg Take 4 capsules by mouth daily. [facility] FLUoxetine 20 mg capsule 09-01 00:00: 00 Yes 60mg Take 3 capsules by mouth daily. [facility] levothyroxi ne 150 mcg tablet 09-01 00:00: 00 Yes [id number] 150ug Take 1 tablet by mouth every morning. [facility] cholestyram ine 4 gram powder 09-01 00:00: 00 Yes [id number] 2g Take 0.5 Packets by mouth 3 (three) times daily with meals. [facility] LORazepam 1 mg tablet 09-01 00:00: 00 Yes [id number] 1mg Take 1 tablet by mouth once daily as needed for Anxiety or Agitation. [facility] nystatin 100,000 unit/gram powder 09-01 00:00: 00 Yes [id number] Apply to area(s) 2 (two) times daily. [facility] phenytoin Extended (DILANTIN) 100 mg capsule 09-01 00:00: 00 Yes [id number] 400mg Take 4 capsules by mouth daily. [facility] levothyroxi ne 150 mcg tablet 09-01 00:00: 00 Yes [id number] 150ug Take 1 tablet by mouth every morning. [facility] cholestyram ine 4 gram powder 09-01 00:00: 00 Yes [id number] 2g Take 0.5 Packets by mouth 3 (three) times daily with meals. [facility] LORazepam 1 mg tablet 09-01 00:00: 00 Yes [id number] 1mg Take 1 tablet by mouth once daily as needed for Anxiety or Agitation. [facility] nystatin 100,000 unit/gram powder 09-01 00:00: 00 Yes [id number] Apply to area(s) 2 (two) times daily. [facility] phenytoin Extended (DILANTIN) 100 mg capsule 09-01 00:00: 00 Yes [id number] 400mg Take 4 capsules by mouth daily. [facility] levothyroxi ne 150 mcg tablet 09-01 00:00: 00 Yes [id number] 150ug Take 1 tablet by mouth every morning. [facility] cholestyram ine 4 gram powder 09-01 00:00: 00 Yes [id number] 2g Take 0.5 Packets by mouth 3 (three) times daily with meals. [facility] nystatin 100,000 unit/gram powder 09-01 00:00: 00 Yes [id number] Apply to area(s) 2 (two) times daily. [facility] phenytoin Extended (DILANTIN) 100 mg capsule 09-01 00:00: 00 Yes [id number] 400mg Take 4 capsules by mouth daily. [facility] levothyroxi ne 150 mcg tablet 09-01 00:00: 00 Yes [id number] 150ug Take 1 tablet by mouth every morning. [facility] cholestyram ine 4 gram powder 09-01 00:00: 00 Yes [id number] 2g Take 0.5 Packets by mouth 3 (three) times daily with meals. [facility] nystatin 100,000 unit/gram powder 0 09-01 00:00: 00 Yes [id number] Apply to area(s) 2 (two) times daily. [facility] phenytoin Extended (DILANTIN) 100 mg capsule 09-01 00:00: 00 Yes [id number] 400mg Take 4 capsules by mouth daily. [facility] levothyroxi ne 150 mcg tablet 09-01 00:00: 00 Yes [id number] 150ug Take 1 tablet by mouth every morning. [facility] cholestyram ine 4 gram powder 09-01 00:00: 00 Yes [id number] 2g Take 0.5 Packets by mouth 3 (three) times daily with meals. [facility] nystatin 100,000 unit/gram powder 09-01 00:00: 00 Yes [id number] Apply to area(s) 2 (two) times daily. [facility] phenytoin Extended (DILANTIN) 100 mg capsule 09-01 00:00: 00 Yes [id number] 400mg Take 4 capsules by mouth daily. [facility] levothyroxi ne 150 mcg tablet 0 - 00:00: 00 Yes [id number] 150ug Take 1 tablet by mouth every morning. [facility] cholestyram ine 4 gram powder 09-01 00:00: 00 Yes [id number] 2g Take 0.5 Packets by mouth 3 (three) times daily with meals. [facility] nystatin 100,000 unit/gram powder 09-01 00:00: 00 Yes [id number] Apply to area(s) 2 (two) times daily. [facility] phenytoin Extended (DILANTIN) 100 mg capsule 09-01 00:00: 00 Yes [id number] 400mg Take 4 capsules by mouth daily. [facility] levothyroxi ne 150 mcg tablet 09-01 00:00: 00 Yes [id number] 150ug Take 1 tablet by mouth every morning. [facility] cholestyram ine 4 gram powder 09-01 00:00: 00 Yes [id number] 2g Take 0.5 Packets by mouth 3 (three) times daily with meals. [facility] phenytoin Extended (DILANTIN) 100 mg capsule 09-01 00:00: 00 Yes [id number] 400mg Take 4 capsules by mouth daily. [facility] levothyroxi ne 150 mcg tablet 09-01 00:00: 00 Yes [id number] 150ug Take 1 tablet by mouth every morning. [facility] cholestyram ine 4 gram powder 09-01 00:00: 00 Yes [id number] 2g Take 0.5 Packets by mouth 3 (three) times daily with meals. [facility] phenytoin Extended (DILANTIN) 100 mg capsule 09-01 00:00: 00 Yes [id number] 400mg Take 4 capsules by mouth daily. [facility] levothyroxi ne 150 mcg tablet 09-01 00:00: 00 Yes [id number] 150ug Take 1 tablet by mouth every morning. [facility] cholestyram ine 4 gram powder 09-01 00:00: 00 Yes [id number] 2g Take 0.5 Packets by mouth 3 (three) times daily with meals. [facility] phenytoin Extended (DILANTIN) 100 mg capsule 09-01 00:00: 00 Yes [id number] 400mg Take 4 capsules by mouth daily. [facility] levothyroxi ne 150 mcg tablet 09-01 00:00: 00 Yes [id number] 150ug Take 1 tablet by mouth every morning. [facility] cholestyram ine 4 gram powder 09-01 00:00: 00 Yes [id number] 2g Take 0.5 Packets by mouth 3 (three) times daily with meals. [facility] phenytoin Extended (DILANTIN) 100 mg capsule 09-01 00:00: 00 Yes [id number] 400mg Take 4 capsules by mouth daily. [facility] levothyroxi ne 150 mcg tablet 09-01 00:00: 00 Yes [id number] 150ug Take 1 tablet by mouth every morning. [facility] cholestyram ine 4 gram powder 09-01 00:00: 00 Yes [id number] 2g Take 0.5 Packets by mouth 3 (three) times daily with meals. [facility] phenytoin Extended (DILANTIN) 100 mg capsule 09-01 00:00: 00 Yes [id number] 400mg Take 4 capsules by mouth daily. [facility] levothyroxi ne 150 mcg tablet 09-01 00:00: 00 Yes [id number] 150ug Take 1 tablet by mouth every morning. [facility] cholestyram ine 4 gram powder 09-01 00:00: 00 Yes [id number] 2g Take 0.5 Packets by mouth 3 (three) times daily with meals. [facility] phenytoin Extended (DILANTIN) 100 mg capsule 09-01 00:00: 00 Yes [id number] 400mg Take 4 capsules by mouth daily. [facility] levothyroxi ne 150 mcg tablet 09-01 00:00: 00 Yes [id number] 150ug Take 1 tablet by mouth every morning. [facility] cholestyram ine 4 gram powder 09-01 00:00: 00 Yes [id number] 2g Take 0.5 Packets by mouth 3 (three) times daily with meals. [facility] phenytoin Extended (DILANTIN) 100 mg capsule 09-01 00:00: 00 Yes [id number] 400mg Take 4 capsules by mouth daily. [facility] levothyroxi ne 150 mcg tablet 09-01 00:00: 00 Yes [id number] 150ug Take 1 tablet by mouth every morning. [facility] cholestyram ine 4 gram powder 09-01 00:00: 00 Yes [id number] 2g Take 0.5 Packets by mouth 3 (three) times daily with meals. [facility] phenytoin Extended (DILANTIN) 100 mg capsule 09-01 00:00: 00 Yes [id number] 400mg Take 4 capsules by mouth daily. [facility] levothyroxi ne 150 mcg tablet 09-01 00:00: 00 Yes [id number] 150ug Take 1 tablet by mouth every morning. [facility] cholestyram ine 4 gram powder 09-01 00:00: 00 Yes [id number] 2g Take 0.5 Packets by mouth 3 (three) times daily with meals. [facility] phenytoin Extended (DILANTIN) 100 mg capsule 09-01 00:00: 00 Yes [id number] 400mg Take 4 capsules by mouth daily. [facility] levothyroxi ne 150 mcg tablet 09-01 00:00: 00 Yes [id number] 150ug Take 1 tablet by mouth every morning. [facility] cholestyram ine 4 gram powder 09-01 00:00: 00 Yes [id number] 2g Take 0.5 Packets by mouth 3 (three) times daily with meals. [facility] phenytoin Extended (DILANTIN) 100 mg capsule 09-01 00:00: 00 Yes [id number] 400mg Take 4 capsules by mouth daily. [facility] levothyroxi ne 150 mcg tablet 09-01 00:00: 00 Yes [id number] 150ug Take 1 tablet by mouth every morning. [facility] cholestyram ine 4 gram powder 09-01 00:00: 00 Yes [id number] 2g Take 0.5 Packets by mouth 3 (three) times daily with meals. [facility] phenytoin Extended (DILANTIN) 100 mg capsule 09-01 00:00: 00 Yes [id number] 400mg Take 4 capsules by mouth daily. [facility] levothyroxi ne 150 mcg tablet 09-01 00:00: 00 Yes [id number] 150ug Take 1 tablet by mouth every morning. [facility] cholestyram ine 4 gram powder 09-01 00:00: 00 Yes [id number] 2g Take 0.5 Packets by mouth 3 (three) times daily with meals. [facility] phenytoin Extended (DILANTIN) 100 mg capsule 09-01 00:00: 00 Yes [id number] 400mg Take 4 capsules by mouth daily. [facility] levothyroxi ne 150 mcg tablet 09-01 00:00: 00 Yes [id number] 150ug Take 1 tablet by mouth every morning. [facility] cholestyram ine 4 gram powder 09-01 00:00: 00 Yes [id number] 2g Take 0.5 Packets by mouth 3 (three) times daily with meals. [facility] phenytoin Extended (DILANTIN) 100 mg capsule 09-01 00:00: 00 Yes [id number] 400mg Take 4 capsules by mouth daily. [facility] levothyroxi ne 150 mcg tablet 09-01 00:00: 00 Yes [id number] 150ug Take 1 tablet by mouth every morning. [facility] cholestyram ine 4 gram powder 09-01 00:00: 00 Yes [id number] 2g Take 0.5 Packets by mouth 3 (three) times daily with meals. [facility] phenytoin Extended (DILANTIN) 100 mg capsule 09-01 00:00: 00 Yes [id number] 400mg Take 4 capsules by mouth daily. [facility] levothyroxi ne 150 mcg tablet 09-01 00:00: 00 Yes [id number] 150ug Take 1 tablet by mouth every morning. [facility] cholestyram ine 4 gram powder 09-01 00:00: 00 Yes [id number] 2g Take 0.5 Packets by mouth 3 (three) times daily with meals. [facility] phenytoin Extended (DILANTIN) 100 mg capsule 09-01 00:00: 00 Yes [id number] 400mg Take 4 capsules by mouth daily. [facility] levothyroxi ne 150 mcg tablet 09-01 00:00: 00 Yes [id number] 150ug Take 1 tablet by mouth every morning. [facility] cholestyram ine 4 gram powder 09-01 00:00: 00 Yes [id number] 2g Take 0.5 Packets by mouth 3 (three) times daily with meals. [facility] phenytoin Extended (DILANTIN) 100 mg capsule 09-01 00:00: 00 Yes [id number] 400mg Take 4 capsules by mouth daily. [facility] levothyroxi ne 150 mcg tablet 09-01 00:00: 00 Yes [id number] 150ug Take 1 tablet by mouth every morning. [facility] cholestyram ine 4 gram powder 09-01 00:00: 00 Yes [id number] 2g Take 0.5 Packets by mouth 3 (three) times daily with meals. [facility] phenytoin Extended (DILANTIN) 100 mg capsule 09-01 00:00: 00 Yes [id number] 400mg Take 4 capsules by mouth daily. [facility] levothyroxi ne 150 mcg tablet 09-01 00:00: 00 Yes [id number] 150ug Take 1 tablet by mouth every morning. [facility] cholestyram ine 4 gram powder 09-01 00:00: 00 Yes [id number] 2g Take 0.5 Packets by mouth 3 (three) times daily with meals. [facility] phenytoin Extended (DILANTIN) 100 mg capsule 09-01 00:00: 00 Yes [id number] 400mg Take 4 capsules by mouth daily. [facility] levothyroxi ne 150 mcg tablet 09-01 00:00: 00 Yes [id number] 150ug Take 1 tablet by mouth every morning. [facility] cholestyram ine 4 gram powder 09-01 00:00: 00 Yes [id number] 2g Take 0.5 Packets by mouth 3 (three) times daily with meals. [facility] phenytoin Extended (DILANTIN) 100 mg capsule 09-01 00:00: 00 Yes [id number] 400mg Take 4 capsules by mouth daily. [facility] levothyroxi ne 150 mcg tablet 09-01 00:00: 00 Yes [id number] 150ug Take 1 tablet by mouth every morning. [facility] cholestyram ine 4 gram powder 09-01 00:00: 00 Yes [id number] 2g Take 0.5 Packets by mouth 3 (three) times daily with meals. [facility] phenytoin Extended (DILANTIN) 100 mg capsule 09-01 00:00: 00 Yes [id number] 400mg Take 4 capsules by mouth daily. [facility] levothyroxi ne 150 mcg tablet 09-01 00:00: 00 Yes [id number] 150ug Take 1 tablet by mouth every morning. [facility] cholestyram ine 4 gram powder 09-01 00:00: 00 Yes [id number] 2g Take 0.5 Packets by mouth 3 (three) times daily with meals. [facility] phenytoin Extended (DILANTIN) 100 mg capsule 09-01 00:00: 00 Yes [id number] 400mg Take 4 capsules by mouth daily. [facility] levothyroxi ne 150 mcg tablet 09-01 00:00: 00 Yes [id number] 150ug Take 1 tablet by mouth every morning. [facility] cholestyram ine 4 gram powder 09-01 00:00: 00 Yes [id number] 2g Take 0.5 Packets by mouth 3 (three) times daily with meals. [facility] nystatin 100,000 unit/gram powder 09-01 00:00: 00 12-01 00:00 :00 No [id number] Apply to area(s) 2 (two) times daily. [facility] nystatin 100,000 unit/gram powder 09-01 00:00: 00 12-01 00:00 :00 No [id number] Apply to area(s) 2 (two) times daily. [facility] LORazepam 1 mg tablet 09-01 00:00: 00 09-29 00:00 :00 No [id number] 1mg Take 1 tablet by mouth once daily as needed for Anxiety or Agitation. [facility] LORazepam 1 mg tablet 09-01 00:00: 00 09-29 00:00 :00 No [id number] 1mg Take 1 tablet by mouth once daily as needed for Anxiety or Agitation. [facility] FLUoxetine 20 mg capsule 09-01 00:00: 00 09-21 00:00 :00 No 60mg Take 3 capsules by mouth daily. [facility] FLUoxetine 20 mg capsule 09-01 00:00: 00 09-21 00:00 :00 No 60mg Take 3 capsules by mouth daily. [facility] pantoprazol e 40 mg EC tablet 09-01 00:00: 00 09-03 00:00 :00 No [id number] 40mg Take 1 tablet by mouth once daily as needed for Indigestio n. [facility] pantoprazol e 40 mg EC tablet 09-01 00:00: 00 09-03 00:00 :00 No [id number] 40mg Take 1 tablet by mouth once daily as needed for Indigestio n. [facility] LORazepam 1 mg tablet 09-01 00:00: 00 09-01 00:00 :00 No [id number] 1mg Take 1 tablet by mouth every other day. [facility] PANTOPRAZOL E 40 mg EC tablet 08-25 00:00: 00 Yes [id number] TAKE 1 TABLET BY MOUTH TWICE A DAY [facility] PANTOPRAZOL E 40 mg EC tablet 08-25 00:00: 00 Yes [id number] TAKE 1 TABLET BY MOUTH TWICE A DAY [facility] PANTOPRAZOL E 40 mg EC tablet 08-25 00:00: 00 09-01 00:00 :00 No [id number] TAKE 1 TABLET BY MOUTH TWICE A DAY [facility] levothyroxi ne 150 mcg tablet 08-10 00:00: 00 Yes [id number] 150ug Take 1 tablet by mouth every morning. [facility] levothyroxi ne 150 mcg tablet 08-10 00:00: 00 Yes [id number] 150ug Take 1 tablet by mouth every morning. [facility] levothyroxi ne 150 mcg tablet 08-10 00:00: 00 09-01 00:00 :00 No [id number] 150ug Take 1 tablet by mouth every morning. [facility] acetaminoph en-codeine (TYLENOL-CO DEINE #3) 300-30 mg tablet 08-07 00:00: 00 Yes [id number] 99587 .5{tbl} Take 0.5-1 tablets by mouth every 4 (four) hours as needed (pain). Pt medicaid is under her maiden name Cyndie Duvall [facility] acetaminoph en-codeine (TYLENOL-CO DEINE #3) 300-30 mg tablet 08-07 00:00: 00 Yes [id number] 84741 .5{tbl} Take 0.5-1 tablets by mouth every 4 (four) hours as needed (pain). Pt medicaid is under her maiden name Cyndie Duvall [facility] acetaminoph en-codeine (TYLENOL-CO DEINE #3) 300-30 mg tablet 08-07 00:00: 00 Yes [id number] 74824 .5{tbl} Take 0.5-1 tablets by mouth every 4 (four) hours as needed (pain). Pt medicaid is under her maiden name Cyndie Duvall [facility] acetaminoph en-codeine (TYLENOL-CO DEINE #3) 300-30 mg tablet 08-07 00:00: 00 Yes [id number] 34261 .5{tbl} Take 0.5-1 tablets by mouth every 4 (four) hours as needed (pain). Pt medicaid is under her maiden name Cyndie Duvall [facility] acetaminoph en-codeine (TYLENOL-CO DEINE #3) 300-30 mg tablet 2020-0 4-24 00:00: 00 Yes [id number] 20495 .5{tbl} Take 0.5-1 tablets by mouth every 4 (four) hours as needed (pain). Pt medicaid is under her maiden name Cyndie Duvall [facility] acetaminoph en-codeine (TYLENOL-CO DEINE #3) 300-30 mg tablet 2020-0 4-24 00:00: 00 Yes [id number] 69116 .5{tbl} Take 0.5-1 tablets by mouth every 4 (four) hours as needed (pain). Pt medicaid is under her maiden name Cyndie Duvall [facility] acetaminoph en-codeine (TYLENOL-CO DEINE #3) 300-30 mg tablet 2020-0 4-24 00:00: 00 Yes [id number] 80940 .5{tbl} Take 0.5-1 tablets by mouth every 4 (four) hours as needed (pain). Pt medicaid is under her maiden name Cyndie Duvall [facility] acetaminoph en-codeine (TYLENOL-CO DEINE #3) 300-30 mg tablet 2020-0 4-24 00:00: 00 Yes [id number] 06478 .5{tbl} Take 0.5-1 tablets by mouth every 4 (four) hours as needed (pain). Pt medicaid is under her maiden name Cyndie Duvall [facility] acetaminoph en-codeine (TYLENOL-CO DEINE #3) 300-30 mg tablet 2020-0 4-24 00:00: 00 Yes [id number] 01331 .5{tbl} Take 0.5-1 tablets by mouth every 4 (four) hours as needed (pain). Pt medicaid is under her maiden name Cyndie Duvall [facility] acetaminoph en-codeine (TYLENOL-CO DEINE #3) 300-30 mg tablet 2020-0 4-24 00:00: 00 18 00:00 :00 No [id number] 51472 .5{tbl} Take 0.5-1 tablets by mouth every 4 (four) hours as needed (pain). Pt medicaid is under her maiden name Cyndie Duvall [facility] acetaminoph en-codeine (TYLENOL-CO DEINE #3) 300-30 mg tablet 0 4-24 00:00: 00 18 00:00 :00 No [id number] 45440 .5{tbl} Take 0.5-1 tablets by mouth every 4 (four) hours as needed (pain). Pt medicaid is under her maiden name Cyndie Duvall [facility] clotrimazol e 1 % topical cream 2020-0 4-21 00:00: 00 Yes [id number] Apply to area(s) 2 (two) times daily. [facility] clotrimazol e 1 % topical cream 2020-0 4-21 00:00: 00 Yes [id number] Apply to area(s) 2 (two) times daily. [facility] clotrimazol e 1 % topical cream 2020-0 4-21 00:00: 00 Yes [id number] Apply to area(s) 2 (two) times daily. [facility] clotrimazol e 1 % topical cream 2020-0 4-21 00:00: 00 Yes [id number] Apply to area(s) 2 (two) times daily. [facility] clotrimazol e 1 % topical cream 2020-0 4-21 00:00: 00 Yes [id number] Apply to area(s) 2 (two) times daily. [facility] clotrimazol e 1 % topical cream 2020-0 4-21 00:00: 00 Yes [id number] Apply to area(s) 2 (two) times daily. [facility] clotrimazol e 1 % topical cream 2020-0 4-21 00:00: 00 Yes [id number] Apply to area(s) 2 (two) times daily. [facility] clotrimazol e 1 % topical cream 2020-0 4-21 00:00: 00 -19 00:00 :00 No [id number] Apply to area(s) 2 (two) times daily. [facility] ket[facility]azol e 2 % cream 2020-0 4-17 00:00: 00 Yes [id number] Apply to area(s) 2 (two) times daily. [facility] ketoconazol e 2 % cream 2020-0 4-17 00:00: 00 Yes [id number] Apply to area(s) 2 (two) times daily. [facility] ketoconazol e 2 % cream 2020-0 417 00:00: 00 08-04 00:00 :00 No [id number] Apply to area(s) 2 (two) times daily. [facility] ketoconazol e 2 % cream 2019-0 -17 00:00: 00 08-04 00:00 :00 No [id number] Apply to area(s) 2 (two) times daily. [facility] LORazepam 1 mg tablet 2020-0 07 00:00: 00 Yes [id number] 1mg Take 1 tablet by mouth 2 (two) times per week for Anxiety or Agitation. [facility] LORazepam 1 mg tablet 2020-0 07 00:00: 00 Yes [id number] 1mg Take 1 tablet by mouth 2 (two) times per week for Anxiety or Agitation. [facility] LORazepam 1 mg tablet 2019-0 07 00:00: 00 Yes [id number] 1mg Take 1 tablet by mouth 2 (two) times per week for Anxiety or Agitation. [facility] LORazepam 1 mg tablet 2020-0 4-07 00:00: 00 Yes [id number] 1mg Take 1 tablet by mouth 2 (two) times per week for Anxiety or Agitation. [facility] LORazepam 1 mg tablet 2020-0 4-07 00:00: 00 Yes [id number] 1mg Take 1 tablet by mouth 2 (two) times per week for Anxiety or Agitation. [facility] LORazepam 1 mg tablet 2020-0 4-07 00:00: 00 Yes [id number] 1mg Take 1 tablet by mouth 2 (two) times per week for Anxiety or Agitation. [facility] LORazepam 1 mg tablet 2020-0 4-07 00:00: 00 Yes [id number] 1mg Take 1 tablet by mouth 2 (two) times per week for Anxiety or Agitation. [facility] LORazepam 1 mg tablet 07-21 00:00: 00 Yes [id number] 1mg Take 1 tablet by mouth 2 (two) times per week for Anxiety or Agitation. [facility] LORazepam 1 mg tablet 07-21 00:00: 00 Yes [id number] 1mg Take 1 tablet by mouth 2 (two) times per week for Anxiety or Agitation. [facility] LORazepam 1 mg tablet 07-21 00:00: 00 Yes [id number] 1mg Take 1 tablet by mouth 2 (two) times per week for Anxiety or Agitation. [facility] LORazepam 1 mg tablet 07-21 00:00: 00 Yes [id number] 1mg Take 1 tablet by mouth 2 (two) times per week for Anxiety or Agitation. [facility] LORazepam 1 mg tablet 07-21 00:00: 00 Yes [id number] 1mg Take 1 tablet by mouth 2 (two) times per week for Anxiety or Agitation. [facility] LORazepam 1 mg tablet 07-21 00:00: 00 09-01 00:00 :00 No [id number] 1mg Take 1 tablet by mouth 2 (two) times per week for Anxiety or Agitation. [facility] cariprazine HCl (VRAYLAR ORAL) 07-07 13:57: 55 Yes 10mg Take 10 mg by mouth at bedtime. [facility] cariprazine HCl (VRAYLAR ORAL) 324 13:57: 55 Yes 10mg Take 10 mg by mouth at bedtime. [facility] cariprazine HCl (VRAYLAR ORAL) 3 13:57: 55 Yes 10mg Take 10 mg by mouth at bedtime. [facility] cariprazine HCl (VRAYLAR ORAL) 324 13:57: 55 Yes 10mg Take 10 mg by mouth at bedtime. [facility] cariprazine HCl (VRAYLAR ORAL) 07-07 13:57: 55 Yes 10mg Take 10 mg by mouth at bedtime. [facility] cariprazine HCl (VRAYLAR ORAL) 07-07 13:57: 55 Yes 10mg Take 10 mg by mouth at bedtime. [facility] cariprazine HCl (VRAYLAR ORAL) 07-07 13:57: 55 Yes 10mg Take 10 mg by mouth at bedtime. [facility] cariprazine HCl (VRAYLAR ORAL) 07-07 13:57: 55 Yes 10mg Take 10 mg by mouth at bedtime. [facility] cariprazine HCl (VRAYLAR ORAL) 07-07 13:57: 55 Yes 10mg Take 10 mg by mouth at bedtime. [facility] cariprazine HCl (VRAYLAR ORAL) 07-07 13:57: 55 Yes 10mg Take 10 mg by mouth at bedtime. [facility] cariprazine HCl (VRAYLAR ORAL) 07-07 13:57: 55 Yes 10mg Take 10 mg by mouth at bedtime. [facility] cariprazine HCl (VRAYLAR ORAL) 07-07 13:57: 55 Yes 10mg Take 10 mg by mouth at bedtime. [facility] cariprazine HCl (VRAYLAR ORAL) 07-07 13:57: 55 Yes 10mg Take 10 mg by mouth at bedtime. [facility] cariprazine HCl (VRAYLAR ORAL) 07-07 13:57: 55 Yes 10mg Take 10 mg by mouth at bedtime. [facility] cariprazine HCl (VRAYLAR ORAL) 07-07 13:57: 55 Yes 10mg Take 10 mg by mouth at bedtime. [facility] cariprazine HCl (VRAYLAR ORAL) 07-07 13:57: 55 Yes 10mg Take 10 mg by mouth at bedtime. [facility] cariprazine HCl (VRAYLAR ORAL) 07-07 13:57: 55 Yes 10mg Take 10 mg by mouth at bedtime. [facility] cariprazine HCl (VRAYLAR ORAL) 07-07 13:57: 55 Yes 10mg Take 10 mg by mouth at bedtime. [facility] cariprazine HCl (VRAYLAR ORAL) 07-07 13:57: 55 Yes 10mg Take 10 mg by mouth at bedtime. [facility] cariprazine HCl (VRAYLAR ORAL) 07-07 13:57: 55 Yes 10mg Take 10 mg by mouth at bedtime. [facility] cariprazine HCl (VRAYLAR ORAL) 07-07 13:57: 55 Yes 10mg Take 10 mg by mouth at bedtime. [facility] cariprazine HCl (VRAYLAR ORAL) 07-07 13:57: 55 Yes 10mg Take 10 mg by mouth at bedtime. [facility] cariprazine HCl (VRAYLAR ORAL) 07-07 13:57: 55 Yes 10mg Take 10 mg by mouth at bedtime. [facility] pantoprazol e 40 mg EC tablet 07-07 13:52: 30 07-07 00:00 :00 No 40mg Take 40 mg by mouth 2 (two) times daily. [facility] phenytoin Extended (DILANTIN) 100 mg capsule 07-07 00:00: 00 Yes [id number] 400mg Take 4 capsules by mouth daily. [facility] FLUoxetine (PROZAC) 40 mg capsule 07-07 00:00: 00 Yes 40mg Take 1 capsule by mouth daily. [facility] cholestyram ine 4 gram powder 07-07 00:00: 00 Yes [id number] 2g Take 0.5 Packets by mouth 3 (three) times daily with meals. [facility] clonazePAM 1 mg tablet 07-07 00:00: 00 Yes [id number] 1mg Take 1 tablet by mouth once daily as needed (panic attack). [facility] pantoprazol e 40 mg EC tablet 0 07-07 00:00: 00 Yes [id number] 40mg Take 1 tablet by mouth 2 (two) times daily. [facility] famotidine (PEPCID AC) 20 mg tablet 2019-0 07-07 00:00: 00 Yes [id number] 20mg Take 1 tablet by mouth 2 (two) times daily. [facility] phenytoin Extended (DILANTIN) 100 mg capsule 0 07-07 00:00: 00 Yes [id number] 400mg Take 4 capsules by mouth daily. [facility] FLUoxetine (PROZAC) 40 mg capsule 0 07-07 00:00: 00 Yes 40mg Take 1 capsule by mouth daily. [facility] cholestyram ine 4 gram powder 07-07 00:00: 00 Yes [id number] 2g Take 0.5 Packets by mouth 3 (three) times daily with meals. [facility] clonazePAM 1 mg tablet 07-07 00:00: 00 Yes [id number] 1mg Take 1 tablet by mouth once daily as needed (panic attack). [facility] pantoprazol e 40 mg EC tablet 0 07-07 00:00: 00 Yes [id number] 40mg Take 1 tablet by mouth 2 (two) times daily. [facility] famotidine (PEPCID AC) 20 mg tablet 0 07-07 00:00: 00 Yes [id number] 20mg Take 1 tablet by mouth 2 (two) times daily. [facility] phenytoin Extended (DILANTIN) 100 mg capsule 0 07-07 00:00: 00 Yes [id number] 400mg Take 4 capsules by mouth daily. [facility] FLUoxetine (PROZAC) 40 mg capsule 0 07-07 00:00: 00 Yes 40mg Take 1 capsule by mouth daily. [facility] cholestyram ine 4 gram powder 07-07 00:00: 00 Yes [id number] 2g Take 0.5 Packets by mouth 3 (three) times daily with meals. [facility] clonazePAM 1 mg tablet 0 07-07 00:00: 00 Yes [id number] 1mg Take 1 tablet by mouth once daily as needed (panic attack). [facility] pantoprazol e 40 mg EC tablet 07-07 00:00: 00 Yes [id number] 40mg Take 1 tablet by mouth 2 (two) times daily. [facility] famotidine (PEPCID AC) 20 mg tablet 07-07 00:00: 00 Yes [id number] 20mg Take 1 tablet by mouth 2 (two) times daily. [facility] phenytoin Extended (DILANTIN) 100 mg capsule 07-07 00:00: 00 Yes [id number] 400mg Take 4 capsules by mouth daily. [facility] FLUoxetine (PROZAC) 40 mg capsule 07-07 00:00: 00 Yes 40mg Take 1 capsule by mouth daily. [facility] cholestyram ine 4 gram powder 07-07 00:00: 00 Yes [id number] 2g Take 0.5 Packets by mouth 3 (three) times daily with meals. [facility] clonazePAM 1 mg tablet 07-07 00:00: 00 Yes [id number] 1mg Take 1 tablet by mouth once daily as needed (panic attack). [facility] pantoprazol e 40 mg EC tablet 07-07 00:00: 00 Yes [id number] 40mg Take 1 tablet by mouth 2 (two) times daily. [facility] famotidine (PEPCID AC) 20 mg tablet 07-07 00:00: 00 Yes [id number] 20mg Take 1 tablet by mouth 2 (two) times daily. [facility] phenytoin Extended (DILANTIN) 100 mg capsule 07-07 00:00: 00 Yes [id number] 400mg Take 4 capsules by mouth daily. [facility] FLUoxetine (PROZAC) 40 mg capsule 07-07 00:00: 00 Yes 40mg Take 1 capsule by mouth daily. [facility] cholestyram ine 4 gram powder 07-07 00:00: 00 Yes [id number] 2g Take 0.5 Packets by mouth 3 (three) times daily with meals. [facility] clonazePAM 1 mg tablet 2019-0 07-07 00:00: 00 Yes [id number] 1mg Take 1 tablet by mouth once daily as needed (panic attack). [facility] pantoprazol e 40 mg EC tablet 07-07 00:00: 00 Yes [id number] 40mg Take 1 tablet by mouth 2 (two) times daily. [facility] famotidine (PEPCID AC) 20 mg tablet 2019-0 07-07 00:00: 00 Yes [id number] 20mg Take 1 tablet by mouth 2 (two) times daily. [facility] phenytoin Extended (DILANTIN) 100 mg capsule 0 07-07 00:00: 00 Yes [id number] 400mg Take 4 capsules by mouth daily. [facility] FLUoxetine (PROZAC) 40 mg capsule 2019-0 07-07 00:00: 00 Yes 40mg Take 1 capsule by mouth daily. [facility] cholestyram ine 4 gram powder 0 07-07 00:00: 00 Yes [id number] 2g Take 0.5 Packets by mouth 3 (three) times daily with meals. [facility] clonazePAM 1 mg tablet 0 07-07 00:00: 00 Yes [id number] 1mg Take 1 tablet by mouth once daily as needed (panic attack). [facility] pantoprazol e 40 mg EC tablet 0 07-07 00:00: 00 Yes [id number] 40mg Take 1 tablet by mouth 2 (two) times daily. [facility] famotidine (PEPCID AC) 20 mg tablet 2019-0 07-07 00:00: 00 Yes [id number] 20mg Take 1 tablet by mouth 2 (two) times daily. [facility] phenytoin Extended (DILANTIN) 100 mg capsule 0 07-07 00:00: 00 Yes [id number] 400mg Take 4 capsules by mouth daily. [facility] FLUoxetine (PROZAC) 40 mg capsule 2019-0 24 00:00: 00 Yes 40mg Take 1 capsule by mouth daily. [facility] cholestyram ine 4 gram powder 07-07 00:00: 00 Yes [id number] 2g Take 0.5 Packets by mouth 3 (three) times daily with meals. [facility] clonazePAM 1 mg tablet 07-07 00:00: 00 Yes [id number] 1mg Take 1 tablet by mouth once daily as needed (panic attack). [facility] pantoprazol e 40 mg EC tablet 0 07-07 00:00: 00 Yes [id number] 40mg Take 1 tablet by mouth 2 (two) times daily. [facility] famotidine (PEPCID AC) 20 mg tablet 0 07-07 00:00: 00 Yes [id number] 20mg Take 1 tablet by mouth 2 (two) times daily. [facility] phenytoin Extended (DILANTIN) 100 mg capsule 07-07 00:00: 00 Yes [id number] 400mg Take 4 capsules by mouth daily. [facility] FLUoxetine (PROZAC) 40 mg capsule 0 07-07 00:00: 00 Yes 40mg Take 1 capsule by mouth daily. [facility] cholestyram ine 4 gram powder 07-07 00:00: 00 Yes [id number] 2g Take 0.5 Packets by mouth 3 (three) times daily with meals. [facility] clonazePAM 1 mg tablet 07-07 00:00: 00 Yes [id number] 1mg Take 1 tablet by mouth once daily as needed (panic attack). [facility] pantoprazol e 40 mg EC tablet 0 07-07 00:00: 00 Yes [id number] 40mg Take 1 tablet by mouth 2 (two) times daily. [facility] famotidine (PEPCID AC) 20 mg tablet 0 07-07 00:00: 00 Yes [id number] 20mg Take 1 tablet by mouth 2 (two) times daily. [facility] phenytoin Extended (DILANTIN) 100 mg capsule 2019-0 07-07 00:00: 00 Yes [id number] 400mg Take 4 capsules by mouth daily. [facility] FLUoxetine (PROZAC) 40 mg capsule 07-07 00:00: 00 Yes 40mg Take 1 capsule by mouth daily. [facility] cholestyram ine 4 gram powder 0 07-07 00:00: 00 Yes [id number] 2g Take 0.5 Packets by mouth 3 (three) times daily with meals. [facility] pantoprazol e 40 mg EC tablet 07-07 00:00: 00 Yes [id number] 40mg Take 1 tablet by mouth 2 (two) times daily. [facility] famotidine (PEPCID AC) 20 mg tablet 07-07 00:00: 00 Yes [id number] 20mg Take 1 tablet by mouth 2 (two) times daily. [facility] phenytoin Extended (DILANTIN) 100 mg capsule 07-07 00:00: 00 Yes [id number] 400mg Take 4 capsules by mouth daily. [facility] FLUoxetine (PROZAC) 40 mg capsule 0 07-07 00:00: 00 Yes 40mg Take 1 capsule by mouth daily. [facility] cholestyram ine 4 gram powder 0 07-07 00:00: 00 Yes [id number] 2g Take 0.5 Packets by mouth 3 (three) times daily with meals. [facility] pantoprazol e 40 mg EC tablet 07-07 00:00: 00 Yes [id number] 40mg Take 1 tablet by mouth 2 (two) times daily. [facility] famotidine (PEPCID AC) 20 mg tablet 0 07-07 00:00: 00 Yes [id number] 20mg Take 1 tablet by mouth 2 (two) times daily. [facility] phenytoin Extended (DILANTIN) 100 mg capsule 0 07-07 00:00: 00 Yes [id number] 400mg Take 4 capsules by mouth daily. [facility] FLUoxetine (PROZAC) 40 mg capsule 0 07-07 00:00: 00 Yes 40mg Take 1 capsule by mouth daily. [facility] cholestyram ine 4 gram powder 0 07-07 00:00: 00 Yes [id number] 2g Take 0.5 Packets by mouth 3 (three) times daily with meals. [facility] pantoprazol e 40 mg EC tablet 2020-0 324 00:00: 00 Yes [id number] 40mg Take 1 tablet by mouth 2 (two) times daily. [facility] famotidine (PEPCID AC) 20 mg tablet 2020-0 324 00:00: 00 Yes [id number] 20mg Take 1 tablet by mouth 2 (two) times daily. [facility] phenytoin Extended (DILANTIN) 100 mg capsule 2019-0 -24 00:00: 00 Yes [id number] 400mg Take 4 capsules by mouth daily. [facility] FLUoxetine (PROZAC) 40 mg capsule 2019-0 3-24 00:00: 00 Yes 40mg Take 1 capsule by mouth daily. [facility] cholestyram ine 4 gram powder 2019-0 -24 00:00: 00 Yes [id number] 2g Take 0.5 Packets by mouth 3 (three) times daily with meals. [facility] pantoprazol e 40 mg EC tablet 2019-0 24 00:00: 00 Yes [id number] 40mg Take 1 tablet by mouth 2 (two) times daily. [facility] famotidine (PEPCID AC) 20 mg tablet 2019-0 24 00:00: 00 Yes [id number] 20mg Take 1 tablet by mouth 2 (two) times daily. [facility] phenytoin Extended (DILANTIN) 100 mg capsule 2019-0 24 00:00: 00 Yes [id number] 400mg Take 4 capsules by mouth daily. [facility] FLUoxetine (PROZAC) 40 mg capsule 2019-0 24 00:00: 00 Yes 40mg Take 1 capsule by mouth daily. [facility] cholestyram ine 4 gram powder 2019-0 3-24 00:00: 00 Yes [id number] 2g Take 0.5 Packets by mouth 3 (three) times daily with meals. [facility] pantoprazol e 40 mg EC tablet 2019-0 3-24 00:00: 00 Yes [id number] 40mg Take 1 tablet by mouth 2 (two) times daily. [facility] famotidine (PEPCID AC) 20 mg tablet 0 24 00:00: 00 Yes [id number] 20mg Take 1 tablet by mouth 2 (two) times daily. [facility] phenytoin Extended (DILANTIN) 100 mg capsule 07-07 00:00: 00 Yes [id number] 400mg Take 4 capsules by mouth daily. [facility] FLUoxetine (PROZAC) 40 mg capsule 0 07-07 00:00: 00 Yes 40mg Take 1 capsule by mouth daily. [facility] cholestyram ine 4 gram powder 0 07-07 00:00: 00 Yes [id number] 2g Take 0.5 Packets by mouth 3 (three) times daily with meals. [facility] pantoprazol e 40 mg EC tablet 07-07 00:00: 00 Yes [id number] 40mg Take 1 tablet by mouth 2 (two) times daily. [facility] famotidine (PEPCID AC) 20 mg tablet 0 07-07 00:00: 00 Yes [id number] 20mg Take 1 tablet by mouth 2 (two) times daily. [facility] phenytoin Extended (DILANTIN) 100 mg capsule 0 07-07 00:00: 00 Yes [id number] 400mg Take 4 capsules by mouth daily. [facility] FLUoxetine (PROZAC) 40 mg capsule 0 07-07 00:00: 00 Yes 40mg Take 1 capsule by mouth daily. [facility] cholestyram ine 4 gram powder 0 07-07 00:00: 00 Yes [id number] 2g Take 0.5 Packets by mouth 3 (three) times daily with meals. [facility] pantoprazol e 40 mg EC tablet 0 07-07 00:00: 00 Yes [id number] 40mg Take 1 tablet by mouth 2 (two) times daily. [facility] famotidine (PEPCID AC) 20 mg tablet 2019-0 24 00:00: 00 Yes [id number] 20mg Take 1 tablet by mouth 2 (two) times daily. [facility] phenytoin Extended (DILANTIN) 100 mg capsule 07-07 00:00: 00 Yes [id number] 400mg Take 4 capsules by mouth daily. [facility] FLUoxetine (PROZAC) 40 mg capsule 07-07 00:00: 00 Yes 40mg Take 1 capsule by mouth daily. [facility] cholestyram ine 4 gram powder 07-07 00:00: 00 Yes [id number] 2g Take 0.5 Packets by mouth 3 (three) times daily with meals. [facility] pantoprazol e 40 mg EC tablet 07-07 00:00: 00 Yes [id number] 40mg Take 1 tablet by mouth 2 (two) times daily. [facility] famotidine (PEPCID AC) 20 mg tablet 07-07 00:00: 00 Yes [id number] 20mg Take 1 tablet by mouth 2 (two) times daily. [facility] phenytoin Extended (DILANTIN) 100 mg capsule 07-07 00:00: 00 Yes [id number] 400mg Take 4 capsules by mouth daily. [facility] FLUoxetine (PROZAC) 40 mg capsule 07-07 00:00: 00 Yes 40mg Take 1 capsule by mouth daily. [facility] cholestyram ine 4 gram powder 07-07 00:00: 00 Yes [id number] 2g Take 0.5 Packets by mouth 3 (three) times daily with meals. [facility] pantoprazol e 40 mg EC tablet 07-07 00:00: 00 Yes [id number] 40mg Take 1 tablet by mouth 2 (two) times daily. [facility] famotidine (PEPCID AC) 20 mg tablet 07-07 00:00: 00 Yes [id number] 20mg Take 1 tablet by mouth 2 (two) times daily. [facility] phenytoin Extended (DILANTIN) 100 mg capsule 07-07 00:00: 00 Yes [id number] 400mg Take 4 capsules by mouth daily. [facility] FLUoxetine (PROZAC) 40 mg capsule 0 07-07 00:00: 00 Yes 40mg Take 1 capsule by mouth daily. [facility] cholestyram ine 4 gram powder 0 24 00:00: 00 Yes [id number] 2g Take 0.5 Packets by mouth 3 (three) times daily with meals. [facility] pantoprazol e 40 mg EC tablet 0 07-07 00:00: 00 Yes [id number] 40mg Take 1 tablet by mouth 2 (two) times daily. [facility] famotidine (PEPCID AC) 20 mg tablet 0 07-07 00:00: 00 Yes [id number] 20mg Take 1 tablet by mouth 2 (two) times daily. [facility] phenytoin Extended (DILANTIN) 100 mg capsule 0 07-07 00:00: 00 Yes [id number] 400mg Take 4 capsules by mouth daily. [facility] FLUoxetine (PROZAC) 40 mg capsule 0 07-07 00:00: 00 Yes 40mg Take 1 capsule by mouth daily. [facility] cholestyram ine 4 gram powder 0 07-07 00:00: 00 Yes [id number] 2g Take 0.5 Packets by mouth 3 (three) times daily with meals. [facility] pantoprazol e 40 mg EC tablet 07-07 00:00: 00 Yes [id number] 40mg Take 1 tablet by mouth 2 (two) times daily. [facility] famotidine (PEPCID AC) 20 mg tablet 0 07-07 00:00: 00 Yes [id number] 20mg Take 1 tablet by mouth 2 (two) times daily. [facility] phenytoin Extended (DILANTIN) 100 mg capsule 2019-0 07-07 00:00: 00 Yes [id number] 400mg Take 4 capsules by mouth daily. [facility] FLUoxetine (PROZAC) 40 mg capsule 0 24 00:00: 00 Yes 40mg Take 1 capsule by mouth daily. [facility] cholestyram ine 4 gram powder 2019-0 24 00:00: 00 Yes [id number] 2g Take 0.5 Packets by mouth 3 (three) times daily with meals. [facility] famotidine (PEPCID AC) 20 mg tablet 2019-0 24 00:00: 00 Yes [id number] 20mg Take 1 tablet by mouth 2 (two) times daily. [facility] phenytoin Extended (DILANTIN) 100 mg capsule 2019-0 24 00:00: 00 Yes [id number] 400mg Take 4 capsules by mouth daily. [facility] FLUoxetine (PROZAC) 40 mg capsule 2019-0 24 00:00: 00 Yes 40mg Take 1 capsule by mouth daily. [facility] cholestyram ine 4 gram powder 2019-0 24 00:00: 00 Yes [id number] 2g Take 0.5 Packets by mouth 3 (three) times daily with meals. [facility] famotidine (PEPCID AC) 20 mg tablet 2019-0 24 00:00: 00 Yes [id number] 20mg Take 1 tablet by mouth 2 (two) times daily. [facility] phenytoin Extended (DILANTIN) 100 mg capsule 2019-0 24 00:00: 00 Yes [id number] 400mg Take 4 capsules by mouth daily. [facility] FLUoxetine (PROZAC) 40 mg capsule 2019-0 24 00:00: 00 Yes 40mg Take 1 capsule by mouth daily. [facility] cholestyram ine 4 gram powder 2019-0 24 00:00: 00 Yes [id number] 2g Take 0.5 Packets by mouth 3 (three) times daily with meals. [facility] famotidine (PEPCID AC) 20 mg tablet 2019-0 24 00:00: 00 Yes [id number] 20mg Take 1 tablet by mouth 2 (two) times daily. [facility] famotidine (PEPCID AC) 20 mg tablet 2020-0 24 00:00: 00 Yes [id number] 20mg Take 1 tablet by mouth 2 (two) times daily. [facility] famotidine (PEPCID AC) 20 mg tablet 2020-0 24 00:00: 00 Yes [id number] 20mg Take 1 tablet by mouth 2 (two) times daily. [facility] famotidine (PEPCID AC) 20 mg tablet 2020-0 3-24 00:00: 00 Yes [id number] 20mg Take 1 tablet by mouth 2 (two) times daily. [facility] famotidine (PEPCID AC) 20 mg tablet 2020-0 3-24 00:00: 00 Yes [id number] 20mg Take 1 tablet by mouth 2 (two) times daily. [facility]PEPCID AC[facility] 20 mg tablet 2020-0 3-24 00:00: 00 Yes [id number] 20mg Take 1 tablet by mouth 2 (two) times daily. [facility] 20 mg tablet 2020-0 3-24 00:00: 00 Yes [id number] 20mg Take 1 tablet by mouth 2 (two) times daily. [facility] famotidine (PEPCID AC) 20 mg tablet 2020-0 3-24 00:00: 00 Yes [id number] 20mg Take 1 tablet by mouth 2 (two) times daily. [facility] famotidine (PEPCID AC) 20 mg tablet 2020-0 3-24 00:00: 00 Yes [id number] 20mg Take 1 tablet by mouth 2 (two) times daily. [facility] famotidine (PEPCID AC) 20 mg tablet 2020-0 3-24 00:00: 00 Yes [id number] 20mg Take 1 tablet by mouth 2 (two) times daily. [facility] famotidine (PEPCID AC) 20 mg tablet 2020-0 3-24 00:00: 00 Yes [id number] 20mg Take 1 tablet by mouth 2 (two) times daily. [facility] (PEPCID AC) 20 mg tablet 2020-0 3-24 00:00: 00 Yes [id number] 20mg Take 1 tablet by mouth 2 (two) times daily. [facility] famotidine (PEPCID AC) 20 mg tablet 2020-0 3-24 00:00: 00 Yes [id number] 20mg Take 1 tablet by mouth 2 (two) times daily. [facility] famotidine (PEPCID AC) 20 mg tablet 0 24 00:00: 00 Yes [id number] 20mg Take 1 tablet by mouth 2 (two) times daily. [facility] famotidine (PEPCID AC) 20 mg tablet 2019-0 24 00:00: 00 Yes [id number] 20mg Take 1 tablet by mouth 2 (two) times daily. [facility] famotidine (PEPCID AC) 20 mg tablet 2019-0 24 00:00: 00 Yes [id number] 20mg Take 1 tablet by mouth 2 (two) times daily. [facility] famotidine (PEPCID AC) 20 mg tablet 0 07-07 00:00: 00 Yes [id number] 20mg Take 1 tablet by mouth 2 (two) times daily. [facility] famotidine (PEPCID AC) 20 mg tablet 0 07-07 00:00: 00 Yes [id number] 20mg Take 1 tablet by mouth 2 (two) times daily. [facility] famotidine (PEPCID AC) 20 mg tablet 0 07-07 00:00: 00 Yes [id number] 20mg Take 1 tablet by mouth 2 (two) times daily. [facility] famotidine (PEPCID AC) 20 mg tablet 0 07-07 00:00: 00 Yes [id number] 20mg Take 1 tablet by mouth 2 (two) times daily. [facility] pantoprazol e 40 mg EC tablet 0 07-07 00:00: 00 Yes [id number] 40mg Take 1 tablet by mouth 2 (two) times daily. [facility] famotidine (PEPCID AC) 20 mg tablet 0 07-07 00:00: 00 Yes [id number] 20mg Take 1 tablet by mouth 2 (two) times daily. [facility] phenytoin Extended (DILANTIN) 100 mg capsule 07-07 00:00: 00 Yes [id number] 400mg Take 4 capsules by mouth daily. [facility] FLUoxetine (PROZAC) 40 mg capsule 0 07-07 00:00: 00 Yes 40mg Take 1 capsule by mouth daily. [facility] cholestyram ine 4 gram powder 24 00:00: 00 Yes [id number] 2g Take 0.5 Packets by mouth 3 (three) times daily with meals. [facility] clonazePAM 1 mg tablet 24 00:00: 00 Yes [id number] 1mg Take 1 tablet by mouth once daily as needed (panic attack). [facility] pantoprazol e 40 mg EC tablet 24 00:00: 00 Yes [id number] 40mg Take 1 tablet by mouth 2 (two) times daily. [facility] famotidine (PEPCID AC) 20 mg tablet 24 00:00: 00 Yes [id number] 20mg Take 1 tablet by mouth 2 (two) times daily. [facility] famotidine (PEPCID AC) 20 mg tablet 24 00:00: 00 04-25 00:00 :00 No [id number] 20mg Take 1 tablet by mouth 2 (two) times daily. [facility] famotidine (PEPCID AC) 20 mg tablet 24 00:00: 00 04-25 00:00 :00 No [id number] 20mg Take 1 tablet by mouth 2 (two) times daily. [facility] famotidine (PEPCID AC) 20 mg tablet 24 00:00: 00 04-25 00:00 :00 No [id number] 20mg Take 1 tablet by mouth 2 (two) times daily. [facility] famotidine (PEPCID AC) 20 mg tablet 24 00:00: 00 04-25 00:00 :00 No [id number] 20mg Take 1 tablet by mouth 2 (two) times daily. [facility] famotidine (PEPCID AC) 20 mg tablet -24 00:00: 00 04-25 00:00 :00 No [id number] 20mg Take 1 tablet by mouth 2 (two) times daily. [facility] famotidine (PEPCID AC) 20 mg tablet 07-07 00:00: 00 04-25 00:00 :00 No [id number] 20mg Take 1 tablet by mouth 2 (two) times daily. [facility] phenytoin Extended (DILANTIN) 100 mg capsule 07-07 00:00: 00 09-01 00:00 :00 No [id number] 400mg Take 4 capsules by mouth daily. [facility] FLUoxetine (PROZAC) 40 mg capsule 07-07 00:00: 00 09-01 00:00 :00 No 40mg Take 1 capsule by mouth daily. [facility] cholestyram ine 4 gram powder 07-07 00:00: 09-01 00:00 :00 No [id number] 2g Take 0.5 Packets by mouth 3 (three) times daily with meals. [facility] pantoprazol e 40 mg EC tablet 07-07 00:00: 08-25 00:00 :00 No [id number] 40mg Take 1 tablet by mouth 2 (two) times daily. [facility] clonazePAM 1 mg tablet 07-07 00:00: 00 07-17 00:00 :00 No [id number] 1mg Take 1 tablet by mouth once daily as needed (panic attack). [facility] clonazePAM 1 mg tablet 07-07 00:00: 07-07 00:00 :00 No [id number] 1mg Take 1 tablet by mouth 3 (three) times daily. [facility] levothyroxi ne 150 mcg tablet 06-25 00:00: 00 Yes [id number] 150ug Take 1 tablet by mouth every morning. [facility] levothyroxi ne 150 mcg tablet 06-25 00:00: 00 Yes [id number] 150ug Take 1 tablet by mouth every morning. [facility] levothyroxi ne 150 mcg tablet 06-25 00:00: 00 Yes [id number] 150ug Take 1 tablet by mouth every morning. [facility] levothyroxi ne 150 mcg tablet 12 00:00: 00 Yes [id number] 150ug Take 1 tablet by mouth every morning. [facility] levothyroxi ne 150 mcg tablet 2019-0 312 00:00: 00 Yes [id number] 150ug Take 1 tablet by mouth every morning. [facility] levothyroxi ne 150 mcg tablet 2019-0 312 00:00: 00 Yes [id number] 150ug Take 1 tablet by mouth every morning. [facility] levothyroxi ne 150 mcg tablet 2019-0 312 00:00: 00 Yes [id number] 150ug Take 1 tablet by mouth every morning. [facility] levothyroxi ne 150 mcg tablet 2019-0 06-25 00:00: 00 Yes [id number] 150ug Take 1 tablet by mouth every morning. [facility] levothyroxi ne 150 mcg tablet 2019-0 12 00:00: 00 Yes [id number] 150ug Take 1 tablet by mouth every morning. [facility] levothyroxi ne 150 mcg tablet 2019-0 12 00:00: 00 Yes [id number] 150ug Take 1 tablet by mouth every morning. [facility] levothyroxi ne 150 mcg tablet 2019-0 06-25 00:00: 00 Yes [id number] 150ug Take 1 tablet by mouth every morning. [facility] levothyroxi ne 150 mcg tablet 2019-0 12 00:00: 00 Yes [id number] 150ug Take 1 tablet by mouth every morning. [facility] levothyroxi ne 150 mcg tablet 2019-0 12 00:00: 00 Yes [id number] 150ug Take 1 tablet by mouth every morning. [facility] levothyroxi ne 150 mcg tablet 2019-0 12 00:00: 00 Yes [id number] 150ug Take 1 tablet by mouth every morning. [facility] levothyroxi ne 150 mcg tablet 2019-0 12 00:00: 00 Yes [id number] 150ug Take 1 tablet by mouth every morning. [facility] levothyroxi ne 150 mcg tablet 2019-0 312 00:00: 00 Yes [id number] 150ug Take 1 tablet by mouth every morning. [facility] levothyroxi ne 150 mcg tablet 12 00:00: 00 Yes [id number] 150ug Take 1 tablet by mouth every morning. [facility] levothyroxi ne 150 mcg tablet 12 00:00: 00 Yes [id number] 150ug Take 1 tablet by mouth every morning. [facility] levothyroxi ne 150 mcg tablet 12 00:00: 00 Yes [id number] 150ug Take 1 tablet by mouth every morning. [facility] levothyroxi ne 150 mcg tablet 06-25 00:00: 00 Yes [id number] 150ug Take 1 tablet by mouth every morning. [facility] levothyroxi ne 150 mcg tablet 06-25 00:00: 00 Yes [id number] 150ug Take 1 tablet by mouth every morning. [facility] levothyroxi ne 150 mcg tablet 06-25 00:00: 00 Yes [id number] 150ug Take 1 tablet by mouth every morning. [facility] levothyroxi ne 150 mcg tablet 06-25 00:00: 00 08-07 00:00 :00 No [id number] 150ug Take 1 tablet by mouth every morning. [facility] levothyroxi ne 150 mcg tablet 06-25 00:00: 00 08-07 00:00 :00 No [id number] 150ug Take 1 tablet by mouth every morning. [facility] oseltamivir 75 mg capsule 05-13 00:00: 00 Yes [id number] 75mg Take 1 capsule by mouth 2 (two) times daily. [facility] oseltamivir 75 mg capsule 05-13 00:00: 00 Yes [id number] 75mg Take 1 capsule by mouth 2 (two) times daily. [facility] oseltamivir 75 mg capsule 05-13 00:00: 00 Yes [id number] 75mg Take 1 capsule by mouth 2 (two) times daily. [facility] oseltamivir 75 mg capsule 05-13 00:00: 00 Yes [id number] 75mg Take 1 capsule by mouth 2 (two) times daily. [facility] oseltamivir 75 mg capsule 0 05-13 00:00: 00 Yes [id number] 75mg Take 1 capsule by mouth 2 (two) times daily. [facility] oseltamivir 75 mg capsule 05-13 00:00: 00 Yes [id number] 75mg Take 1 capsule by mouth 2 (two) times daily. [facility] oseltamivir 75 mg capsule 0 05-13 00:00: 00 Yes [id number] 75mg Take 1 capsule by mouth 2 (two) times daily. [facility] oseltamivir 75 mg capsule 0 05-13 00:00: 00 Yes [id number] 75mg Take 1 capsule by mouth 2 (two) times daily. [facility] oseltamivir 75 mg capsule 05-13 00:00: 00 Yes [id number] 75mg Take 1 capsule by mouth 2 (two) times daily. [facility] oseltamivir 75 mg capsule 0 05-13 00:00: 00 Yes [id number] 75mg Take 1 capsule by mouth 2 (two) times daily. [facility] oseltamivir 75 mg capsule 0 05-13 00:00: 00 Yes [id number] 75mg Take 1 capsule by mouth 2 (two) times daily. [facility] oseltamivir 75 mg capsule 0 05-13 00:00: 00 Yes [id number] 75mg Take 1 capsule by mouth 2 (two) times daily. [facility] oseltamivir 75 mg capsule 0 05-13 00:00: 00 Yes [id number] 75mg Take 1 capsule by mouth 2 (two) times daily. [facility] oseltamivir 75 mg capsule 0 05-13 00:00: 00 Yes [id number] 75mg Take 1 capsule by mouth 2 (two) times daily. [facility] oseltamivir 75 mg capsule 0 05-13 00:00: 00 Yes [id number] 75mg Take 1 capsule by mouth 2 (two) times daily. [facility] oseltamivir 75 mg capsule 0 05-13 00:00: 00 Yes [id number] 75mg Take 1 capsule by mouth 2 (two) times daily. [facility] oseltamivir 75 mg capsule 0 05-13 00:00: 00 Yes [id number] 75mg Take 1 capsule by mouth 2 (two) times daily. [facility] oseltamivir 75 mg capsule 05-13 00:00: 00 Yes [id number] 75mg Take 1 capsule by mouth 2 (two) times daily. [facility] oseltamivir 75 mg capsule 05-13 00:00: 00 Yes [id number] 75mg Take 1 capsule by mouth 2 (two) times daily. [facility] oseltamivir 75 mg capsule 05-13 00:00: 00 Yes [id number] 75mg Take 1 capsule by mouth 2 (two) times daily. [facility] oseltamivir 75 mg capsule 05-13 00:00: 00 Yes [id number] 75mg Take 1 capsule by mouth 2 (two) times daily. [facility] oseltamivir 75 mg capsule 05-13 00:00: 00 Yes [id number] 75mg Take 1 capsule by mouth 2 (two) times daily. [facility] oseltamivir 75 mg capsule 05-13 00:00: 00 Yes [id number] 75mg Take 1 capsule by mouth 2 (two) times daily. [facility] oseltamivir 75 mg capsule 05-13 00:00: 00 Yes [id number] 75mg Take 1 capsule by mouth 2 (two) times daily. [facility] oseltamivir 75 mg capsule 0 05-13 00:00: 00 Yes [id number] 75mg Take 1 capsule by mouth 2 (two) times daily. [facility] oseltamivir 75 mg capsule 05-13 00:00: 00 Yes [id number] 75mg Take 1 capsule by mouth 2 (two) times daily. [facility] oseltamivir 75 mg capsule 05-13 00:00: 00 Yes [id number] 75mg Take 1 capsule by mouth 2 (two) times daily. [facility] oseltamivir 75 mg capsule 05-13 00:00: 00 Yes [id number] 75mg Take 1 capsule by mouth 2 (two) times daily. [facility] oseltamivir 75 mg capsule 05-13 00:00: 00 09-01 00:00 :00 No [id number] 75mg Take 1 capsule by mouth 2 (two) times daily. [facility] pantoprazol e 40 mg EC tablet 2018-04 00:00: 07-03 04:59 :00 No [id number] 40mg Take 1 tablet by mouth daily for 90 days. [facility] pantoprazol e 40 mg EC tablet 2018-04 00:00: 00 07-03 04:59 :00 No [id number] 40mg Take 1 tablet by mouth daily for 90 days. [facility] pantoprazol e 40 mg EC tablet 2018-04 00:00: 00 07-03 04:59 :00 No [id number] 40mg Take 1 tablet by mouth daily for 90 days. [facility] albuterol 90 mcg/actuati on inhaler 08-30 00:00: 00 Yes 2{puff} Inhale 2 Puffs every 6 (six) hours as needed for Wheezing or Shortness of Breath. [facility] albuterol 90 mcg/actuati on inhaler 08-30 00:00: 00 Yes 2{puff} Inhale 2 Puffs every 6 (six) hours as needed for Wheezing or Shortness of Breath. [facility] albuterol 90 mcg/actuati on inhaler 08-30 00:00: 00 Yes 2{puff} Inhale 2 Puffs every 6 (six) hours as needed for Wheezing or Shortness of Breath. [facility] albuterol 90 mcg/actuati on inhaler 08-30 00:00: 00 Yes 2{puff} Inhale 2 Puffs every 6 (six) hours as needed for Wheezing or Shortness of Breath. [facility] albuterol 90 mcg/actuati on inhaler 08-30 00:00: 00 Yes 2{puff} Inhale 2 Puffs every 6 (six) hours as needed for Wheezing or Shortness of Breath. [facility] albuterol 90 mcg/actuati on inhaler 08-30 00:00: 00 Yes 2{puff} Inhale 2 Puffs every 6 (six) hours as needed for Wheezing or Shortness of Breath. [facility] albuterol 90 mcg/actuati on inhaler 08-30 00:00: 00 Yes 2{puff} Inhale 2 Puffs every 6 (six) hours as needed for Wheezing or Shortness of Breath. [facility] albuterol 90 mcg/actuati on inhaler 08-30 00:00: 00 Yes 2{puff} Inhale 2 Puffs every 6 (six) hours as needed for Wheezing or Shortness of Breath. [facility] albuterol 90 mcg/actuati on inhaler 08-30 00:00: 00 Yes 2{puff} Inhale 2 Puffs every 6 (six) hours as needed for Wheezing or Shortness of Breath. [facility] albuterol 90 mcg/actuati on inhaler 08-30 00:00: 00 Yes 2{puff} Inhale 2 Puffs every 6 (six) hours as needed for Wheezing or Shortness of Breath. [facility] albuterol 90 mcg/actuati on inhaler 08-30 00:00: 00 Yes 2{puff} Inhale 2 Puffs every 6 (six) hours as needed for Wheezing or Shortness of Breath. [facility] albuterol 90 mcg/actuati on inhaler 08-30 00:00: 00 Yes 2{puff} Inhale 2 Puffs every 6 (six) hours as needed for Wheezing or Shortness of Breath. [facility] albuterol 90 mcg/actuati on inhaler 08-30 00:00: 00 Yes 2{puff} Inhale 2 Puffs every 6 (six) hours as needed for Wheezing or Shortness of Breath. [facility] albuterol 90 mcg/actuati on inhaler 08-30 00:00: 00 Yes 2{puff} Inhale 2 Puffs every 6 (six) hours as needed for Wheezing or Shortness of Breath. [facility] albuterol 90 mcg/actuati on inhaler 08-30 00:00: 00 Yes 2{puff} Inhale 2 Puffs every 6 (six) hours as needed for Wheezing or Shortness of Breath. [facility] albuterol 90 mcg/actuati on inhaler 08-30 00:00: 00 Yes 2{puff} Inhale 2 Puffs every 6 (six) hours as needed for Wheezing or Shortness of Breath. [facility] albuterol 90 mcg/actuati on inhaler 08-30 00:00: 00 Yes 2{puff} Inhale 2 Puffs every 6 (six) hours as needed for Wheezing or Shortness of Breath. [facility] albuterol 90 mcg/actuati on inhaler 08-30 00:00: 00 Yes 2{puff} Inhale 2 Puffs every 6 (six) hours as needed for Wheezing or Shortness of Breath. [facility] albuterol 90 mcg/actuati on inhaler 08-30 00:00: 00 Yes 2{puff} Inhale 2 Puffs every 6 (six) hours as needed for Wheezing or Shortness of Breath. [facility] albuterol 90 mcg/actuati on inhaler 08-30 00:00: 00 Yes 2{puff} Inhale 2 Puffs every 6 (six) hours as needed for Wheezing or Shortness of Breath. [facility] albuterol 90 mcg/actuati on inhaler 08-30 00:00: 00 Yes 2{puff} Inhale 2 Puffs every 6 (six) hours as needed for Wheezing or Shortness of Breath. [facility] albuterol 90 mcg/actuati on inhaler 08-30 00:00: 00 Yes 2{puff} Inhale 2 Puffs every 6 (six) hours as needed for Wheezing or Shortness of Breath. [facility] albuterol 90 mcg/actuati on inhaler 08-30 00:00: 00 Yes 2{puff} Inhale 2 Puffs every 6 (six) hours as needed for Wheezing or Shortness of Breath. [facility] albuterol 90 mcg/actuati on inhaler 08-30 00:00: 00 Yes 2{puff} Inhale 2 Puffs every 6 (six) hours as needed for Wheezing or Shortness of Breath. [facility] levothyroxi ne 150 mcg tablet 08-30 00:00: 00 Yes 150ug Take 1 tablet by mouth every morning. [facility] albuterol 90 mcg/actuati on inhaler 08-30 00:00: 00 Yes 2{puff} Inhale 2 Puffs every 6 (six) hours as needed for Wheezing or Shortness of Breath. [facility] phenytoin Extended 100 mg capsule 08-30 00:00: 00 Yes 100mg Take 1 capsule by mouth 3 (three) times daily. [facility] albuterol 90 mcg/actuati on inhaler 08-30 00:00: 00 Yes 2{puff} Inhale 2 Puffs every 6 (six) hours as needed for Wheezing or Shortness of Breath. [facility] QUEtiapine 50 mg tablet 08-30 00:00: 00 Yes Take 25 mg ( half a tablet) in the morning and 150mg (3 tablets) at night [facility] albuterol 90 mcg/actuati on inhaler 08-30 00:00: 00 Yes 2{puff} Inhale 2 Puffs every 6 (six) hours as needed for Wheezing or Shortness of Breath. [facility] traZODone 150 mg tablet 08-30 00:00: 00 Yes 225mg Take 1.5 tablets by mouth at bedtime. [facility] albuterol 90 mcg/actuati on inhaler 08-30 00:00: 00 Yes 2{puff} Inhale 2 Puffs every 6 (six) hours as needed for Wheezing or Shortness of Breath. [facility] pantoprazol e 40 mg EC tablet 08-30 00:00: 00 Yes 40mg Take 1 tablet by mouth daily. [facility] clonazePAM 1 mg tablet 08-30 00:00: 00 Yes [id number] 1 tablet with breakfast and lunch, and 2 tablet at dinner [facility] albuterol 90 mcg/actuati on inhaler 08-30 00:00: 00 Yes 2{puff} Inhale 2 Puffs every 6 (six) hours as needed for Wheezing or Shortness of Breath. [facility] albuterol 90 mcg/actuati on inhaler 08-30 00:00: 00 Yes 2{puff} Inhale 2 Puffs every 6 (six) hours as needed for Wheezing or Shortness of Breath. [facility] albuterol 90 mcg/actuati on inhaler 08-30 00:00: 00 Yes 2{puff} Inhale 2 Puffs every 6 (six) hours as needed for Wheezing or Shortness of Breath. [facility] albuterol 90 mcg/actuati on inhaler 08-30 00:00: 00 Yes 2{puff} Inhale 2 Puffs every 6 (six) hours as needed for Wheezing or Shortness of Breath. [facility] levothyroxi ne 150 mcg tablet 08-30 00:00: 00 Yes 150ug Take 1 tablet by mouth every morning. [facility] albuterol 90 mcg/actuati on inhaler 08-30 00:00: 00 Yes 2{puff} Inhale 2 Puffs every 6 (six) hours as needed for Wheezing or Shortness of Breath. [facility] phenytoin Extended 100 mg capsule 08-30 00:00: 00 Yes 100mg Take 1 capsule by mouth 3 (three) times daily. [facility] albuterol 90 mcg/actuati on inhaler 08-30 00:00: 00 Yes 2{puff} Inhale 2 Puffs every 6 (six) hours as needed for Wheezing or Shortness of Breath. [facility] QUEtiapine 50 mg tablet 08-30 00:00: 00 Yes Take 25 mg ( half a tablet) in the morning and 150mg (3 tablets) at night [facility] albuterol 90 mcg/actuati on inhaler 08-30 00:00: 00 Yes 2{puff} Inhale 2 Puffs every 6 (six) hours as needed for Wheezing or Shortness of Breath. [facility] traZODone 150 mg tablet 08-30 00:00: 00 Yes 225mg Take 1.5 tablets by mouth at bedtime. [facility] pantoprazol e 40 mg EC tablet 08-30 00:00: 00 Yes 40mg Take 1 tablet by mouth daily. [facility] albuterol 90 mcg/actuati on inhaler 08-30 00:00: 00 Yes 2{puff} Inhale 2 Puffs every 6 (six) hours as needed for Wheezing or Shortness of Breath. [facility] clonazePAM 1 mg tablet 08-30 00:00: 00 Yes [id number] 1 tablet with breakfast and lunch, and 2 tablet at dinner [facility] albuterol 90 mcg/actuati on inhaler 08-30 00:00: 00 Yes 2{puff} Inhale 2 Puffs every 6 (six) hours as needed for Wheezing or Shortness of Breath. [facility] albuterol 90 mcg/actuati on inhaler 08-30 00:00: 00 Yes 2{puff} Inhale 2 Puffs every 6 (six) hours as needed for Wheezing or Shortness of Breath. [facility] albuterol 90 mcg/actuati on inhaler 08-30 00:00: 00 Yes 2{puff} Inhale 2 Puffs every 6 (six) hours as needed for Wheezing or Shortness of Breath. [facility] albuterol 90 mcg/actuati on inhaler 08-30 00:00: 00 Yes 2{puff} Inhale 2 Puffs every 6 (six) hours as needed for Wheezing or Shortness of Breath. [facility] albuterol 90 mcg/actuati on inhaler 08-30 00:00: 00 Yes 2{puff} Inhale 2 Puffs every 6 (six) hours as needed for Wheezing or Shortness of Breath. [facility] levothyroxi ne 150 mcg tablet 08-30 00:00: 00 Yes 150ug Take 1 tablet by mouth every morning. [facility] QUEtiapine 50 mg tablet 08-30 00:00: 00 Yes Take 25 mg ( half a tablet) in the morning and 150mg (3 tablets) at night [facility] albuterol 90 mcg/actuati on inhaler 08-30 00:00: 00 Yes 2{puff} Inhale 2 Puffs every 6 (six) hours as needed for Wheezing or Shortness of Breath. [facility] traZODone 150 mg tablet 08-30 00:00: 00 Yes 225mg Take 1.5 tablets by mouth at bedtime. [facility] albuterol 90 mcg/actuati on inhaler 08-30 00:00: 00 Yes 2{puff} Inhale 2 Puffs every 6 (six) hours as needed for Wheezing or Shortness of Breath. [facility] albuterol 90 mcg/actuati on inhaler 08-30 00:00: 00 Yes 2{puff} Inhale 2 Puffs every 6 (six) hours as needed for Wheezing or Shortness of Breath. [facility] albuterol 90 mcg/actuati on inhaler 08-30 00:00: 00 Yes 2{puff} Inhale 2 Puffs every 6 (six) hours as needed for Wheezing or Shortness of Breath. [facility] albuterol 90 mcg/actuati on inhaler 08-30 00:00: 00 Yes 2{puff} Inhale 2 Puffs every 6 (six) hours as needed for Wheezing or Shortness of Breath. [facility] albuterol 90 mcg/actuati on inhaler 08-30 00:00: 00 Yes 2{puff} Inhale 2 Puffs every 6 (six) hours as needed for Wheezing or Shortness of Breath. [facility] levothyroxi ne 150 mcg tablet 08-30 00:00: 00 Yes 150ug Take 1 tablet by mouth every morning. [facility] albuterol 90 mcg/actuati on inhaler 08-30 00:00: 00 Yes 2{puff} Inhale 2 Puffs every 6 (six) hours as needed for Wheezing or Shortness of Breath. [facility] QUEtiapine 50 mg tablet 08-30 00:00: 00 Yes Take 25 mg ( half a tablet) in the morning and 150mg (3 tablets) at night [facility] traZODone 150 mg tablet 08-30 00:00: 00 Yes 225mg Take 1.5 tablets by mouth at bedtime. [facility] albuterol 90 mcg/actuati on inhaler 08-30 00:00: 00 Yes 2{puff} Inhale 2 Puffs every 6 (six) hours as needed for Wheezing or Shortness of Breath. [facility] albuterol 90 mcg/actuati on inhaler 08-30 00:00: 00 Yes 2{puff} Inhale 2 Puffs every 6 (six) hours as needed for Wheezing or Shortness of Breath. [facility] albuterol 90 mcg/actuati on inhaler 08-30 00:00: 00 Yes 2{puff} Inhale 2 Puffs every 6 (six) hours as needed for Wheezing or Shortness of Breath. [facility] albuterol 90 mcg/actuati on inhaler 08-30 00:00: 00 Yes 2{puff} Inhale 2 Puffs every 6 (six) hours as needed for Wheezing or Shortness of Breath. [facility] albuterol 90 mcg/actuati on inhaler 08-30 00:00: 00 Yes 2{puff} Inhale 2 Puffs every 6 (six) hours as needed for Wheezing or Shortness of Breath. [facility] albuterol 90 mcg/actuati on inhaler 08-30 00:00: 00 Yes 2{puff} Inhale 2 Puffs every 6 (six) hours as needed for Wheezing or Shortness of Breath. [facility] QUEtiapine 50 mg tablet 08-30 00:00: 00 Yes Take 25 mg ( half a tablet) in the morning and 150mg (3 tablets) at night [facility] traZODone 150 mg tablet 08-30 00:00: 00 Yes 225mg Take 1.5 tablets by mouth at bedtime. [facility] albuterol 90 mcg/actuati on inhaler 08-30 00:00: 00 Yes 2{puff} Inhale 2 Puffs every 6 (six) hours as needed for Wheezing or Shortness of Breath. [facility] albuterol 90 mcg/actuati on inhaler 08-30 00:00: 00 Yes 2{puff} Inhale 2 Puffs every 6 (six) hours as needed for Wheezing or Shortness of Breath. [facility] albuterol 90 mcg/actuati on inhaler 08-30 00:00: 00 Yes 2{puff} Inhale 2 Puffs every 6 (six) hours as needed for Wheezing or Shortness of Breath. [facility] albuterol 90 mcg/actuati on inhaler 08-30 00:00: 00 Yes 2{puff} Inhale 2 Puffs every 6 (six) hours as needed for Wheezing or Shortness of Breath. [facility] albuterol 90 mcg/actuati on inhaler 08-30 00:00: 00 Yes 2{puff} Inhale 2 Puffs every 6 (six) hours as needed for Wheezing or Shortness of Breath. [facility] QUEtiapine 50 mg tablet 08-30 00:00: 00 Yes Take 25 mg ( half a tablet) in the morning and 150mg (3 tablets) at night [facility] albuterol 90 mcg/actuati on inhaler 08-30 00:00: 00 Yes 2{puff} Inhale 2 Puffs every 6 (six) hours as needed for Wheezing or Shortness of Breath. [facility] traZODone 150 mg tablet 08-30 00:00: 00 Yes 225mg Take 1.5 tablets by mouth at bedtime. [facility] albuterol 90 mcg/actuati on inhaler 08-30 00:00: 00 Yes 2{puff} Inhale 2 Puffs every 6 (six) hours as needed for Wheezing or Shortness of Breath. [facility] albuterol 90 mcg/actuati on inhaler 08-30 00:00: 00 Yes 2{puff} Inhale 2 Puffs every 6 (six) hours as needed for Wheezing or Shortness of Breath. [facility] albuterol 90 mcg/actuati on inhaler 08-30 00:00: 00 Yes 2{puff} Inhale 2 Puffs every 6 (six) hours as needed for Wheezing or Shortness of Breath. [facility] albuterol 90 mcg/actuati on inhaler 08-30 00:00: 00 Yes 2{puff} Inhale 2 Puffs every 6 (six) hours as needed for Wheezing or Shortness of Breath. [facility] albuterol 90 mcg/actuati on inhaler 08-30 00:00: 00 Yes 2{puff} Inhale 2 Puffs every 6 (six) hours as needed for Wheezing or Shortness of Breath. [facility] QUEtiapine 50 mg tablet 08-30 00:00: 00 Yes Take 25 mg ( half a tablet) in the morning and 150mg (3 tablets) at night [facility] traZODone 150 mg tablet 08-30 00:00: 00 Yes 225mg Take 1.5 tablets by mouth at bedtime. [facility] albuterol 90 mcg/actuati on inhaler 08-30 00:00: 00 Yes 2{puff} Inhale 2 Puffs every 6 (six) hours as needed for Wheezing or Shortness of Breath. [facility] albuterol 90 mcg/actuati on inhaler 08-30 00:00: 00 Yes 2{puff} Inhale 2 Puffs every 6 (six) hours as needed for Wheezing or Shortness of Breath. [facility] albuterol 90 mcg/actuati on inhaler 08-30 00:00: 00 Yes 2{puff} Inhale 2 Puffs every 6 (six) hours as needed for Wheezing or Shortness of Breath. [facility] albuterol 90 mcg/actuati on inhaler 08-30 00:00: 00 Yes 2{puff} Inhale 2 Puffs every 6 (six) hours as needed for Wheezing or Shortness of Breath. [facility] albuterol 90 mcg/actuati on inhaler 08-30 00:00: 00 Yes 2{puff} Inhale 2 Puffs every 6 (six) hours as needed for Wheezing or Shortness of Breath. [facility] albuterol 90 mcg/actuati on inhaler 08-30 00:00: 00 Yes 2{puff} Inhale 2 Puffs every 6 (six) hours as needed for Wheezing or Shortness of Breath. [facility] albuterol 90 mcg/actuati on inhaler 08-30 00:00: 00 Yes 2{puff} Inhale 2 Puffs every 6 (six) hours as needed for Wheezing or Shortness of Breath. [facility] albuterol 90 mcg/actuati on inhaler 08-30 00:00: 00 Yes 2{puff} Inhale 2 Puffs every 6 (six) hours as needed for Wheezing or Shortness of Breath. [facility] albuterol 90 mcg/actuati on inhaler 08-30 00:00: 00 Yes 2{puff} Inhale 2 Puffs every 6 (six) hours as needed for Wheezing or Shortness of Breath. [facility] albuterol 90 mcg/actuati on inhaler 08-30 00:00: 00 Yes 2{puff} Inhale 2 Puffs every 6 (six) hours as needed for Wheezing or Shortness of Breath. [facility] albuterol 90 mcg/actuati on inhaler 08-30 00:00: 00 Yes 2{puff} Inhale 2 Puffs every 6 (six) hours as needed for Wheezing or Shortness of Breath. [facility] albuterol 90 mcg/actuati on inhaler 08-30 00:00: 00 Yes 2{puff} Inhale 2 Puffs every 6 (six) hours as needed for Wheezing or Shortness of Breath. [facility] QUEtiapine 50 mg tablet 08-30 00:00: 00 07-07 00:00 :00 No Take 25 mg ( half a tablet) in the morning and 150mg (3 tablets) at night [facility] traZODone 150 mg tablet 08-30 00:00: 00 07-07 00:00 :00 No 225mg Take 1.5 tablets by mouth at bedtime. [facility] levothyroxi ne 150 mcg tablet 08-30 00:00: 00 06-25 00:00 :00 No 150ug Take 1 tablet by mouth every morning. [facility] Vital Signs Vital Name Observation Time Observation Value Comments S daniellemegan Systolic blood pressure 2022-10-08 06:04:00 116 mm[Hg] [facility] Diastolic blood pressure 2022-10-08 06:04:00 80 mm[Hg] [facility] Heart rate 2022-10-08 06:04:00 58 /min [facility] Respiratory rate 2022-10-08 06:04:00 20 /min [facility] Oxygen saturation in Arterial blood by Pulse oximetry 2022-10-08 06:04:00 95 /min [facility] Body temperature 2022-10-08 03:44:00 36.67 Rachel [facility] Body weight 2022-10-08 03:44:00 74.844 kg [facility] BMI 2022-10-08 03:44:00 28.32 kg/m2 [facility] Systolic blood pressure 2022-07-28 13:43:00 157 mm[Hg] [facility] Diastolic blood pressure 2022-07-28 13:43:00 85 mm[Hg] [facility] Heart rate 2022-07-28 13:43:00 78 /min [facility] Body temperature 2022-07-28 13:43:00 35.94 Rachel [facility] Body height 2022-07-28 13:43:00 162.6 cm [facility] Body weight 2022-07-28 13:43:00 74.844 kg [facility] BMI 2022-07-28 13:43:00 28.32 kg/m2 [facility] Systolic blood pressure 2022-07-23 04:56:00 125 mm[Hg] [facility] Diastolic blood pressure 2022-07-23 04:56:00 83 mm[Hg] [facility] Heart rate 2022-07-23 04:56:00 67 /min [facility] Respiratory rate 2022-07-23 04:56:00 18 /min [facility] Oxygen saturation in Arterial blood by Pulse oximetry 2022-07-23 04:56:00 97 /min [facility] Body temperature 2022-07-23 00:40:00 37.06 Rachel [facility] Body weight 2022-07-23 00:40:00 79.379 kg [facility] BMI 2022-07-23 00:40:00 30.04 kg/m2 [facility] Systolic blood pressure 2022-04-25 18:59:00 133 mm[Hg] [facility] Diastolic blood pressure 2022-04-25 18:59:00 82 mm[Hg] [facility] Heart rate 2022-04-25 18:55:00 81 /min [facility] Body temperature 2022-04-25 18:55:00 36.61 [facility] Respiratory rate 2022-04-25 18:55:00 20 /min [facility] Body height 2022-04-25 18:55:00 162.6 cm [facility] Body weight 2022-04-25 18:55:00 78.291 kg [facility] BMI 2022-04-25 18:55:00 29.63 kg/m2 [facility] Oxygen saturation in Arterial blood by Pulse oximetry 2022-04-25 18:55:00 99 /min room air [facility] Systolic blood pressure 2019-12-02 14:54:00 133 mm[Hg] [facility] Diastolic blood pressure 2019-12-02 14:54:00 87 mm[Hg] [facility] Heart rate 2019-12-02 14:54:00 73 /min [facility] Body temperature 2019-12-02 14:12:00 36.56 [facility] Body height 2019-12-02 14:12:00 165.1 cm [facility] Body weight 2019-12-02 14:12:00 94.167 kg [facility] BMI 2019-12-02 14:12:00 34.55 kg/m2 [facility] Oxygen saturation in Arterial blood by Pulse oximetry 2019-12-02 14:12:00 100 /min room air [facility] Systolic blood pressure 2019-12-02 14:54:00 133 mm[Hg] [facility] Diastolic blood pressure 2019-12-02 14:54:00 87 mm[Hg] [facility] Heart rate 2019-12-02 14:54:00 73 /min [facility] Body temperature 2019-12-02 14:12:00 36.56 [facility] Body height 2019-12-02 14:12:00 165.1 cm [facility] Body weight 2019-12-02 14:12:00 94.167 kg [facility] BMI 2019-12-02 14:12:00 34.55 kg/m2 [facility] Oxygen saturation in Arterial blood by Pulse oximetry 2019-12-02 14:12:00 100 /min room air [facility] Systolic blood pressure 2022-10-12 12:23:07 149 mm[Hg] [facility] Diastolic blood pressure 2022-10-12 12:23:07 98 mm[Hg] [facility] Heart rate 2022-10-12 12:23:07 63 /min [facility] Body temperature 2022-10-12 12:23:07 35.72 Rachel [facility] Respiratory rate 2022-10-12 12:23:07 18 /min [facility] Oxygen saturation in Arterial blood by Pulse oximetry 2022-10-12 12:23:07 97 /min [facility] Body height 2022-10-11 17:14:00 162.6 cm [facility] Body weight 2022-10-11 17:14:00 74.844 kg [facility] BMI 2022-10-11 17:14:00 28.32 kg/m2 [facility] Systolic blood pressure 2022-10-08 06:04:00 116 mm[Hg] [facility] Diastolic blood pressure 2022-10-08 06:04:00 80 mm[Hg] [facility] Heart rate 2022-10-08 06:04:00 58 /min [facility] Respiratory rate 2022-10-08 06:04:00 20 /min [facility] Oxygen saturation in Arterial blood by Pulse oximetry 2022-10-08 06:04:00 95 /min [facility] Body temperature 2022-10-08 03:44:00 36.67 [facility] Body weight 2022-10-08 03:44:00 74.844 kg [facility] BMI 2022-10-08 03:44:00 28.32 kg/m2 [facility] Systolic blood pressure 2022-07-28 19:11:27 132 mm[Hg] [facility] Diastolic blood pressure 2022-07-28 19:11:27 90 mm[Hg] [facility] Heart rate 2022-07-28 19:11:27 86 /min [facility] Body temperature 2022-07-28 19:11:27 36.67 [facility] Respiratory rate 2022-07-28 19:11:27 18 /min [facility] Oxygen saturation in Arterial blood by Pulse oximetry 2022-07-28 19:11:27 97 /min [facility] Body height 2022-07-28 15:47:00 162.6 cm [facility] Body weight 2022-07-28 15:47:00 74.844 kg [facility] BMI 2022-07-28 15:47:00 28.32 kg/m2 [facility] Body height 2022-07-28 13:43:00 162.6 cm [facility] BP Systolic 2021-11-25 19:02:00 BP [...] 2020-09-02 13:54:00 Procedures Procedure Date / Time Performed Performing Clinician Source REFERRAL- REQUEST/RESPONSE 2023-01-22 05:01:00 Doctor Unassigned, [place] [facility] REFERRAL- REQUEST/RESPONSE 2023-01-08 05:01:00 Doctor Unassigned, [place] [facility] REFERRAL- REQUEST/RESPONSE 2023-01-08 05:01:00 Doctor Unassigned, [place] [facility] [id number] 2022-10-21 00:00:00 JOHNNY [facility] [id number] 2022-10-19 00:00:00 JOHNNY [facility] [id number] 2022-10-18 00:00:00 SAMKA.01 [facility] CBC WITH PLATELET AND DIFFERENTIAL 2022-10-12 08:58:00 [facility] BASIC METABOLIC PANEL 2022-10-12 08:58:00 [facility] ESTIMATED GFR 2022-10-12 08:58:00 [facility] ABO AND RH CONFIRMATION BY PROTOCOL 2022-10-12 02:16:00 Adonay Trujillo [facility] TYPE AND SCREEN 2022-10-12 00:08:00 Gopalkrishna n, [facility] TROPONIN T 2022-10-12 00:08:00 [facility] CT LOWER EXTREMITY WO CONTRAST RIGHT 2022-10-11 22:49:19 [facility] TROPONIN T 2022-10-11 20:25:00 [facility] URINE CULTURE 2022-10-11 18:53:00 [facility] URINALYSIS SCREEN AND MICROSCOPY, WITH REFLEX TO CULTURE 2022-10-11 18:53:00 [facility] HCG QUALITATIVE, URINE SCREEN 2022-10-11 18:53:00 [facility] ECG ED PRELIMINARY INTERPRETATION 2022-10-11 18:05:21 [facility] XR HIP 2-3 VIEWS RIGHT 2022-10-11 17:55:46 SheaNelia mahajan [facility] XR CHEST 1 VW PORTABLE 2022-10-11 17:55:32 Monse [facility] XR PELVIS 1 OR 2 VW 2022-10-11 [facility]19 [facility] COVID-19, INFLUENZA A&B, AND RSV QUALITATIVE RT-PCR 2022-10-11 17:46:00 [facility] CBC WITH PLATELET AND DIFFERENTIAL 2022-10-11 17:43:00 [facility] COMPREHENSIVE METABOLIC PANEL 2022-10-11 17:43:00 [facility] TROPONIN T 2022-10-11 17:43:00 [facility] NT-PROBNP 2022-10-11 17:43:00 [facility] HCG QUALITATIVE, SERUM SCREEN 2022-10-11 17:43:00 [facility] PARTIAL THROMBOPLASTIN TIME (PTT) 2022-10-11 17:43:00 [facility] PROTHROMBIN TIME WITH INR 2022-10-11 17:43[facility] 2022-10-11 17:43:00 SheaLucho cole [facility] ECG 12-LEAD 2022-10-11 17:20:17 SheaLucho cole [facility] POCT TEST 2022-10-08 04:30:00 Mariia Curran [facility] CT PELVIS WO CONTRAST 2022-07-28 17:40:00 [facility] CBC WITH PLATELET AND DIFFERENTIAL 2022-07-28 16:40:00 [facility] COMPREHENSIVE METABOLIC PANEL 2022-07-28 16:40:00 [facility] ESTIMATED GFR 2022-07-28 16:40:00 [facility] XR FEMUR 2 VW RIGHT 2022-07-28 16:20:00 [facility] XR PELVIS 1 OR 2 VW 2022-07-28 16:20:00 [facility] COMP. METABOLIC PANEL ([id number]) 2022-07-23 02:02:00 Lisa Murillo [facility] CBC WITH DIFF 2022-07-23 02:02:00 Lisa Murillo [facility] URINALYSIS 2022-07-23 01:59:00 Lisa Murillo [facility] CONSENT/REFUSAL FOR DIAGNOSIS AND TREATMENT 2022-07-23 00:34:52 Doctor Unassigned, [place] [facility] ASSIGNMENT OF BENEFITS 2022-06-15 19:19:00 Docto r Unassigned, [place] [facility] REFERRAL- REQUEST/RESPONSE 2022-01-10 05:01:00 Doctor Unassigned, [place] [facility] Plan of Care Planned Activity Planned Date Details Comments Source Future Scheduled Test 2023-02-07 21:38:20 Screening for malignant neoplasm of colon (procedure) [code = 902642629] [facility] Future Scheduled Test 2023-02-07 21:38:20 Screening for malignant neoplasm of colon (procedure) [code = 596017228] [facility] Future Scheduled Test 2023-02-07 21:38:20 Screening for malignant neoplasm of colon (procedure) [code = 505891211] [facility] Future Scheduled Test 2023-02-07 21:38:20 COVID-19 VACCINE (#1) [code = COVID-19 VACCINE (#1)] [facility] Scheduled Test 2023-02-07 21:38:20 Pneumococcal Vaccine: Pediatrics (0 to 5 Years) and At-Risk Patients (6 to 64 Years) (1 - PCV) [code = Pneumococcal Vaccine: Pediatrics (0 to 5 Years) and At-Risk Patients (6 to 64 Years) (1 - PCV)] [facility] Scheduled Test 2023-02-07 21:38:20 Hepatitis C screening (procedure) [code = 751563774] [facility] Scheduled Test 2023-02-07 21:38:20 Screening for malignant neoplasm of cervix (procedure) [code = 564090678] [facility] Scheduled Test 2023-02-07 21:38:20 BREAST CANCER SCREENING [code = BREAST CANCER SCREENING] [facility] Scheduled Test 2023-02-07 21:38:20 Screening for malignant neoplasm of colon (procedure) [code = 507543485] [facility] Scheduled Test 2023-02-07 21:38:20 Screening for malignant neoplasm of colon (procedure) [code = 232689593] [facility] Scheduled Test 2023-02-07 21:38:20 INFLUENZA VACCINE (#1) [code = INFLUENZA VACCINE (#1)] [facility] Scheduled Test 2022-12-17 02:52:15 Screening for malignant neoplasm of colon (procedure) [code = 069546623] [facility] Scheduled Test 2022-12-17 02:52:15 Screening for malignant neoplasm of colon (procedure) [code = 842681100] [facility] Scheduled Test 2022-12-17 02:52:15 Screening for malignant neoplasm of colon (procedure) [code = 612056347] [facility] Scheduled Test 2022-12-17 02:52:15 COVID-19 VACCINE (#1) [code = COVID-19 VACCINE (#1)] [facility] Scheduled Test 2022-12-17 02:52:15 Pneumococcal Vaccine: Pediatrics (0 to 5 Years) and At-Risk Patients (6 to 64 Years) (1 - PCV) [code = Pneumococcal Vaccine: Pediatrics (0 to 5 Years) and At-Risk Patients (6 to 64 Years) (1 - PCV)] [facility] Future Scheduled Test 2022-12-17 02:52:15 Hepatitis C screening (procedure) [code = 609951946] [facility] Future Scheduled Test 2022-12-17 02:52:15 Screening for malignant neoplasm of cervix (procedure) [code = 196659021] [facility] Scheduled Test 2022-12-17 02:52:15 BREAST CANCER SCREENING [code = BREAST CANCER SCREENING] [facility] Scheduled Test 2022-12-17 02:52:15 Screening for malignant neoplasm of colon (procedure) [code = 424688858] [facility] Scheduled Test 2022-12-17 02:52:15 Screening for malignant neoplasm of colon (procedure) [code = 837440093] [facility] Scheduled Test 2022-12-17 02:52:15 INFLUENZA VACCINE (#1) [code = INFLUENZA VACCINE (#1)] [facility] Scheduled Test 2022-11-14 14:23:48 Screening for malignant neoplasm of colon (procedure) [code = 101050614] [facility] Scheduled Test 2022-11-14 14:23:48 Screening for malignant neoplasm of colon (procedure) [code = 911926404] [facility] Scheduled Test 2022-11-14 14:23:48 Screening for malignant neoplasm of colon (procedure) [code = 973612509] [facility] Scheduled Test 2022-11-14 14:23:48 COVID-19 VACCINE (#1) [code = COVID-19 VACCINE (#1)] [facility] Scheduled Test 2022-11-14 14:23:48 Pneumococcal Vaccine: Pediatrics (0 to 5 Years) and At-Risk Patients (6 to 64 Years) (1 - PCV) [code = Pneumococcal Vaccine: Pediatrics (0 to 5 Years) and At-Risk Patients (6 to 64 Years) (1 - PCV)] [facility] Scheduled Test 2022-11-14 14:23:48 Hepatitis C screening (procedure) [code = 440531190] [facility] Scheduled Test 2022-11-14 14:23:48 Screening for malignant neoplasm of cervix (procedure) [code = 021835414] [facility] Scheduled Test 2022-11-14 14:23:48 BREAST CANCER SCREENING [code = BREAST CANCER SCREENING] [facility] Scheduled Test 2022-11-14 14:23:48 Screening for malignant neoplasm of colon (procedure) [code = 728478793] [facility] Future Scheduled Test 2022-11-14 14:23:48 Screening for malignant neoplasm of colon (procedure) [code = 732888918] [facility] Scheduled Test 2022-11-14 14:23:48 INFLUENZA VACCINE [code = INFLUENZA VACCINE] [facility] Scheduled Test 2022-10-16 10:27:41 Screening for malignant neoplasm of colon (procedure) [code = 354524361] [facility] Scheduled Test 2022-10-16 10:27:41 Screening for malignant neoplasm of colon (procedure) [code = 016853140] [facility] Scheduled Test 2022-10-16 10:27:41 Screening for malignant neoplasm of colon (procedure) [code = 122468250] [facility] Scheduled Test 2022-10-16 10:27:41 COVID-19 VACCINE (#1) [code = COVID-19 VACCINE (#1)] [facility] Scheduled Test 2022-10-16 10:27:41 Pneumococcal Vaccine: Pediatrics (0 to 5 Years) and At-Risk Patients (6 to 64 Years) (1 - PCV) [code = Pneumococcal Vaccine: Pediatrics (0 to 5 Years) and At-Risk Patients (6 to 64 Years) (1 - PCV)] [facility] Scheduled Test 2022-10-16 10:27:41 Hepatitis C screening (procedure) [code = 165286582] [facility] Scheduled Test 2022-10-16 10:27:41 Screening for malignant neoplasm of cervix (procedure) [code = 505967202] [facility] Future Scheduled Test 2022-10-16 10:27:41 BREAST CANCER SCREENING [code = BREAST CANCER SCREENING] [facility] Scheduled Test 2022-10-16 10:27:41 Screening for malignant neoplasm of colon (procedure) [code = 950260314] [facility] Future Scheduled Test 2022-10-16 10:27:41 Screening for malignant neoplasm of colon (procedure) [code = 279200961] [facility] Scheduled Test 2022-10-16 10:27:41 INFLUENZA VACCINE [code = INFLUENZA VACCINE] [facility] Scheduled Test 2022-10-05 04:19:15 Screening for malignant neoplasm of colon (procedure) [code = 458981409] [facility] Future Scheduled Test 2022-10-05 04:19:15 Screening for malignant neoplasm of colon (procedure) [code = 094375015] [facility] Future Scheduled Test 2022-10-05 04:19:15 Screening for malignant neoplasm of colon (procedure) [code = 677782130] [facility] Future Scheduled Test 2022-10-05 04:19:15 COVID-19 VACCINE (#1) [code = COVID-19 VACCINE (#1)] [facility] Future Scheduled Test 2022-10-05 04:19:15 Hepatitis C screening (procedure) [code = 406896120] [facility] Future Scheduled Test 2022-10-05 04:19:15 Screening for malignant neoplasm of cervix (procedure) [code = 899839401] [facility] Future Scheduled Test 2022-10-05 04:19:15 BREAST CANCER SCREENING [code = BREAST CANCER SCREENING] [facility] Future Scheduled Test 2022-10-05 04:19:15 Screening for malignant neoplasm of colon (procedure) [code = 765548096] [facility] Future Scheduled Test 2022-10-05 04:19:15 Screening for malignant neoplasm of colon (procedure) [code = 605892215] [facility] Future Scheduled Test 2022-10-05 04:19:15 INFLUENZA VACCINE [code = INFLUENZA VACCINE] [facility] Future Scheduled Test 2022-08-10 13:16:26 COVID-19 VACCINE (#1) [code = COVID-19 VACCINE (#1)] [facility] Future Scheduled Test 2022-08-10 13:16:26 Hepatitis C screening (procedure) [code = 651160077] [facility] Future Scheduled Test 2022-08-10 13:16:26 Screening for malignant neoplasm of cervix (procedure) [code = 589990966] [facility] Future Scheduled Test 2022-08-10 13:16:26 BREAST CANCER SCREENING [code = BREAST CANCER SCREENING] [facility] Future Scheduled Test 2022-08-10 13:16:26 COLONOSCOPY SCREENING [code = COLONOSCOPY SCREENING] [facility] Future Scheduled Test 2022-08-10 13:16:26 INFLUENZA VACCINE [code = INFLUENZA VACCINE] [facility] Future Scheduled Test 2022-08-08 01:29:04 COVID-19 VACCINE (#1) [code = COVID-19 VACCINE (#1)] [facility] Future Scheduled Test 2022-08-08 01:29:04 Hepatitis C screening (procedure) [code = 981568793] [facility] Future Scheduled Test 2022-08-08 01:29:04 Screening for malignant neoplasm of cervix (procedure) [code = 707157822] [facility] Future Scheduled Test 2022-08-08 01:29:04 BREAST CANCER SCREENING [code = BREAST CANCER SCREENING] [facility] Future Scheduled Test 2022-08-08 01:29:04 COLONOSCOPY SCREENING [code = COLONOSCOPY SCREENING] [facility] Future Scheduled Test 2022-08-08 01:29:04 INFLUENZA VACCINE [code = INFLUENZA VACCINE] [facility] Goal Plan of Care Not e [code = 21876-5] Goal Plan of Care Not e [code = 69694-8] Goal Plan of Care Not e [code = 14600-2] Goal Plan of Care Not e [code = 75587-6] Goal Plan of Care Not e [code = 70986-1] Goal Plan of Care Not e [code = 48802-2] Goal Plan of Care Not e [code = 96958-3] Goal Plan of Care Not e [code = 35173-0] Goal Plan of Care Not e [code = 01684-6] Goal Plan of Care Not e [code = 19628-3] Goal Plan of Care Not e [code = 63336-4] Goal Plan of Care Not e [code = 02064-7] Goal Plan of Care Not e [code = 53544-1] Goal Plan of Care Not e [code = 97355-3] Goal Plan of Care Not e [code = 77414-4] Goal Plan of Care Not e [code = 29125-7] Goal Plan of Care Not e [code = 71239-9] Goal Plan of Care Not e [code = 26105-8] Goal Plan of Care Not e [code = 08419-7] Goal Plan of Care Not e [code = 46437-5] Goal Plan of Care Not e [code = 69104-5] Goal Plan of Care Not e [code = 42237-6] Goal Plan of Care Not e [code = 96135-1] Goal Plan of Care Not e [code = 89118-2] Goal Plan of Care Not e [code = 17428-1] Goal Plan of Care Not e [code = 55337-8] Goal Plan of Care Not e [code = 45765-1] Goal Plan of Care Not e [code = 73195-7] Goal Plan of Care Not e [code = 93410-8] Goal Plan of Care Not e [code = 69430-9] Goal Plan of Care Not e [code = 86104-7] Goal Plan of Care Not e [code = 93876-0] Goal Plan of Care Not e [code = 51887-8] Goal Plan of Care Not e [code = 57628-0] Goal Plan of Care Not e [code = 74779-8] Goal Plan of Care Not e [code = 91509-0] Goal Plan of Care Not e [code = 43814-2] Goal Plan of Care Not e [code = 16579-1] Goal Plan of Care Not e [code = 50777-4] Goal Plan of Care Not e [code = 72008-5] Goal Plan of Care Not e [code = 58175-9] Goal Plan of Care Not e [code = 76227-0] Goal Plan of Care Not e [code = 64817-0] Goal Plan of Care Not e [code = 29692-3] Goal Plan of Care Not e [code = 11861-8] Goal Plan of Care Not e [code = 91811-3] Goal Plan of Care Not e [code = 29155-9] Goal Plan of Care Not e [code = 24492-7] Goal Plan of Care Not e [code = 00800-3] Goal Plan of Care Not e [code = 93144-6] Goal Plan of Care Not e [code = 21089-4] Goal Plan of Care Not e [code = 34832-6] Goal Plan of Care Not e [code = 26460-0] Goal Plan of Care Not e [code = 77182-9] Goal Plan of Care Not e [code = 64273-5] Goal Plan of Care Not e [code = 84773-5] Goal Plan of Care Not e [code = 58429-4] Goal Plan of Care Not e [code = 36485-3] Goal Plan of Care Not e [code = 96432-2] Goal Plan of Care Not e [code = 73390-6] Goal Plan of Care Not e [code = 84876-0] Goal Plan of Care Not e [code = 54948-8] Goal Plan of Care Not e [code = 96646-3] Goal Plan of Care Not e [code = 14536-1] Goal Plan of Care Not e [code = 07827-4] Goal Plan of Care Not e [code = 83522-3] Goal Plan of Care Not e [code = 45488-3] Goal Plan of Care Not e [code = 39752-3] Goal Plan of Care Not e [code = 83895-4] Goal Plan of Care Not e [code = 23609-5] Goal Plan of Care Not e [code = 15137-9] Goal Plan of Care Not e [code = 48188-2] Goal Plan of Care Not e [code = 01749-2] Goal Plan of Care Not e [code = 78976-2] Goal Plan of Care Not e [code = 56255-3] Goal Plan of Care Not e [code = 87769-8] Goal Plan of Care Not e [code = 91994-6] Goal Plan of Care Not e [code = 91155-5] Goal Plan of Care Not e [code = 11123-1] Goal Plan of Care Not e [code = 15739-1] Goal Plan of Care Not e [code = 42357-5] Goal Plan of Care Not e [code = 93182-6] Goal Plan of Care Not e [code = 03608-4] Goal Plan of Care Not e [code = 53293-2] Goal Plan of Care Not e [code = 58533-4] Goal Plan of Care Not e [code = 52507-9] Goal Plan of Care Not e [code = 95631-9] Goal Plan of Care Not e [code = 80220-0] Goal Plan of Care Not e [code = 88684-4] Goal Plan of Care Not e [code = 79579-6] Goal Plan of Care Not e [code = 06211-5] Goal Plan of Care Not e [code = 11899-3] Goal Plan of Care Not e [code = 29380-7] Goal Plan of Care Not e [code = 70562-8] Goal Plan of Care Not e [code = 82487-0] Goal Plan of Care Not e [code = 01769-8] Goal Plan of Care Not e [code = 34902-9] Goal Plan of Care Not e [code = 02247-8] Goal Plan of Care Not e [code = 76111-4] Goal Plan of Care Not e [code = 94188-1] Goal Plan of Care Not e [code = 72978-2] Goal Plan of Care Not e [code = 67609-4] Goal Plan of Care Not e [code = 02395-8] Goal Plan of Care Not e [code = 58756-9] Goal Plan of Care Not e [code = 61788-2] Goal Plan of Care Not e [code = 38194-0] Goal Plan of Care Not e [code = 97297-4] Goal Plan of Care Not e [code = 11296-3] Goal Plan of Care Not e [code = 58785-2] Goal Plan of Care Not e [code = 74921-0] Goal Plan of Care Not e [code = 40932-1] Goal Plan of Care Not e [code = 60940-9] Goal Plan of Care Not e [code = 61578-3] Goal Plan of Care Not e [code = 05228-1] Goal Plan of Care Not e [code = 62739-8] Goal Plan of Care Not e [code = 02344-8] Goal Plan of Care Not e [code = 67970-1] Goal Plan of Care Not e [code = 31681-3] Goal Plan of Care Not e [code = 11477-1] Goal Plan of Care Not e [code = 45490-2] Goal Plan of Care Not e [code = 61187-8] Goal Plan of Care Not e [code = 00975-7] Goal Plan of Care Not e [code = 00399-1] Goal Plan of Care Not e [code = 43771-0] Goal Plan of Care Not e [code = 87947-3] Goal Plan of Care Not e [code = 39985-7] Goal Plan of Care Not e [code = 06479-7] Goal Plan of Care Not e [code = 79791-8] Goal Plan of Care Not e [code = 30338-8] Goal Plan of Care Not e [code = 48730-6] Goal Plan of Care Not e [code = 78752-4] Goal Plan of Care Not e [code = 92204-6] Goal Plan of Care Not e [code = 80737-6] Goal Plan of Care Not e [code = 69436-5] Goal Plan of Care Not e [code = 58202-0] Goal Plan of Care Not e [code = 71136-9] Goal Plan of Care Not e [code = 97774-4] Goal Plan of Care Not e [code = 65937-8] Goal Plan of Care Not e [code = 20440-7] Goal Plan of Care Not e [code = 52659-8] Goal Plan of Care Not e [code = 53635-5] Goal Plan of Care Not e [code = 32903-9] Goal Plan of Care Not e [code = 43839-0] Goal Plan of Care Not e [code = 74667-0] Goal Plan of Care Not e [code = 19460-8] Goal Plan of Care Not e [code = 91549-7] Goal Plan of Care Not e [code = 34043-3] Goal Plan of Care Not e [code = 96953-0] Goal Plan of Care Not e [code = 92203-1] Goal Plan of Care Not e [code = 29831-1] Goal Plan of Care Not e [code = 50727-2] Goal Plan of Care Not e [code = 94471-1] Goal Plan of Care Not e [code = 67680-2] Goal Plan of Care Not e [code = 11885-9] Goal Plan of Care Not e [code = 92089-5] Goal Plan of Care Not e [code = 85605-7] Goal Plan of Care Not e [code = 60500-2] Goal Plan of Care Not e [code = 16856-7] Goal Plan of Care Not e [code = 04987-6] Goal Plan of Care Not e [code = 14258-6] Goal Plan of Care Not e [code = 90813-0] Goal Plan of Care Not e [code = 40281-7] Goal Plan of Care Not e [code = 26824-7] Goal Plan of Care Not e [code = 55761-4] Goal Plan of Care Not e [code = 36568-3] Goal Plan of Care Not e [code = 00541-5] Goal Plan of Care Not e [code = 33573-7] Goal Plan of Care Not e [code = 05171-1] Goal Plan of Care Not e [code = 15347-8] Goal Plan of Care Not e [code = 30838-5] Goal Plan of Care Not e [code = 69052-8] Goal Plan of Care Not e [code = 19511-5] Goal Plan of Care Not e [code = 12716-9] Goal Plan of Care Not e [code = 73401-7] Goal Plan of Care Not e [code = 00354-4] Goal Plan of Care Not e [code = 13601-1] Goal Plan of Care Not e [code = 91575-8] Goal Plan of Care Not e [code = 97965-9] Goal Plan of Care Not e [code = 81032-3] Goal Plan of Care Not e [code = 66914-7] Goal Plan of Care Not e [code = 67896-0] Goal Plan of Care Not e [code = 01833-6] Goal Plan of Care Not e [code = 73867-8] Goal Plan of Care Not e [code = 15271-2] Goal Plan of Care Not e [code = 87886-2] Goal Plan of Care Not e [code = 52789-8] Goal Plan of Care Not e [code = 78560-4] Goal Plan of Care Not e [code = 66280-6] Goal Plan of Care Not e [code = 17361-8] Goal Plan of Care Not e [code = 45846-6] Goal Plan of Care Not e [code = 86143-5] Goal Plan of Care Not e [code = 29019-8] Goal Plan of Care Not e [code = 31601-8] Goal Plan of Care Not e [code = 17749-3] Goal Plan of Care Not e [code = 64186-4] Goal Plan of Care Not e [code = 34057-5] Goal Plan of Care Not e [code = 18244-0] Goal Plan of Care Not e [code = 01286-4] Goal Plan of Care Not e [code = 77927-3] Goal Plan of Care Not e [code = 17415-8] Goal Plan of Care Not e [code = 25123-7] Goal Plan of Care Not e [code = 19389-3] Goal Plan of Care Not e [code = 99503-6] Goal Plan of Care Not e [code = 48848-8] Goal Plan of Care Not e [code = 96409-6] Goal Plan of Care Not e [code = 61296-4] Goal Plan of Care Not e [code = 76628-9] Goal Plan of Care Not e [code = 87895-5] Goal Plan of Care Not e [code = 59039-4] Goal Plan of Care Not e [code = 94099-9] Goal Plan of Care Not e [code = 88749-2] Goal Plan of Care Not e [code = 72956-7] Goal Plan of Care Not e [code = 86168-0] Goal Plan of Care Not e [code = 88815-9] Goal Plan of Care Not e [code = 57704-0] Goal Plan of Care Not e [code = 19123-5] Goal Plan of Care Not e [code = 00214-7] Goal Plan of Care Not e [code = 38036-9] Goal Plan of Care Not e [code = 00204-2] Goal Plan of Care Not e [code = 35229-2] Goal Plan of Care Not e [code = 06667-2] Goal Plan of Care Not e [code = 95310-9] Goal Plan of Care Not e [code = 36377-1] Goal Plan of Care Not e [code = 50728-8] Goal Plan of Care Not e [code = 44123-3] Goal Plan of Care Not e [code = 34069-7] Goal Plan of Care Not e [code = 63072-6] Goal Plan of Care Not e [code = 75793-1] Goal Plan of Care Not e [code = 21422-2] Goal Plan of Care Not e [code = 26106-6] Goal Plan of Care Not e [code = 86731-9] Goal Plan of Care Not e [code = 76646-2] Goal Plan of Care Not e [code = 91920-2] Goal Plan of Care Not e [code = 03737-8] Goal Plan of Care Not e [code = 96819-3] Goal Plan of Care Not e [code = 17144-1] Goal Plan of Care Not e [code = 26313-0] Goal Plan of Care Not e [code = 85043-1] Goal Plan of Care Not e [code = 73487-6] Goal Plan of Care Not e [code = 56858-8] Goal Plan of Care Not e [code = 56874-6] Goal Plan of Care Not e [code = 50767-3] Goal Plan of Care Not e [code = 33029-7] Goal Plan of Care Not e [code = 90050-7] Goal Plan of Care Not e [code = 26203-4] Goal Plan of Care Not e [code = 18509-3] Goal Plan of Care Not e [code = 29876-7] Goal Plan of Care Not e [code = 35030-8] Goal Plan of Care Not e [code = 66466-7] Goal Plan of Care Not e [code = 17701-7] Goal Plan of Care Not e [code = 05184-5] Goal Plan of Care Not e [code = 42501-9] Goal Plan of Care Not e [code = 10600-0] Goal Plan of Care Not e [code = 71132-7] Goal Plan of Care Not e [code = 16386-8] Goal Plan of Care Not e [code = 79980-9] Goal Plan of Care Not e [code = 53776-1] Goal Plan of Care Not e [code = 20985-3] Goal Plan of Care Not e [code = 25927-2] Goal Plan of Care Not e [code = 52632-8] Goal Plan of Care Not e [code = 28565-6] Goal Plan of Care Not e [code = 99396-7] Goal Plan of Care Not e [code = 55970-7] Goal Plan of Care Not e [code = 95780-2] Goal Plan of Care Not e [code = 90976-0] Goal Plan of Care Not e [code = 89014-8] Goal Plan of Care Not e [code = 43891-9] Goal Plan of Care Not e [code = 54004-5] Encounters Start Date/Time End Date/Time Encounter Type Admission Type Attending [facility] Care Facility Care Department Encounter ID Source 2021-07-15 14:49:46 Outpatient [facility] [id number] [facility] 2021-07-13 13:18:38 Outpatient [facility] [id number] [facility] 2023-02-26 13:45:00 2023-02-26 13:45:00 Outpatient ANIKA AGUILAR [facility] [id number] [facility] 2023-02-11 00:00:00 2023-02-11 00:00:00 Outpatient GC_GCBZW_Ka diyala_S [facility] [id number] [facility] 2023-02-09 10:00:00 2023-02-09 10:00:00 Outpatient ANIKA AGUILAR [facility] [id number] [facility] 2023-02-08 09:15:00 2023-02-08 09:15:00 Outpatient SATHISH GRESHAM CRAIG [facility] [id number] [facility] 2023-01-22 00:00:00 2023-01-22 00:00:00 Orders Only Doctor Unassigned, [place] [facility] 1.840.114 350.1.13.10 4.2.7.2.686 [id number] [facility] 2023-01-18 00:00:00 2023-01-18 00:00:00 Patient Secure Msg Doctor Unassigned, [place] [facility] 1..840.114 350.1.13.10 4.2.7.2.686 [id number] [facility] 2023-01-12 14:00:00 2023-01-12 14:00:00 Outpatient R ERIN ARGUELLO RANA [facility] [id number] [facility] 2023-01-12 00:00:00 2023-01-12 00:00:00 Telephone Erin Arguello [facility] 1..840.114 350.1.13.10 4.2.7.2.686 [id number] [id number] [facility] 2023-01-08 00:00:00 2023-01-08 00:00:00 Orders Only Doctor Unassigned, [place] 1..840.1 70749.1.1 3.104.2.7 .3.874169 .8 [id number] [facility] 2023-01-01 10:19:41 2023-01-01 10:19:41 Outpatient [facility] [id number] Seth Townsend 2023-01-01 10:00:00 2023-01-01 10:00:00 Outpatient Issa SKYLERIzzyTONIHEATHERERIN RANA [facility] [id number] [facility] 2022-12-15 10:00:00 2022-12-15 10:00:00 Outpatient R SKYLERIzzyTONIHEATHERERIN RANA [facility] [id number] [facility] 2022-11-10 16:00:00 2022-11-10 16:00:00 Outpatient R CARINShelley, YENNI MARIAM, [facility] [id number] [facility] 2022-10-17 08:35:00 2022-10-25 16:15:00 Inpatient EM QuiqueMatthew hernándezh [facility] [id number] [facility] 2022-10-21 16:26:00 2022-10-21 16:26:00 Outpatient Jammie Sharon [facility] REF [id number] [facility] 2022-10-12 23:59:59 2022-10-12 23:59:59 Anesthesia Event Husam Sol 1..840.1 45659.1.1 3.430.2.7 .3.638392 .8 [id number] [facility] 2022-10-11 12:23:00 2022-10-12 13:19:00 Emergency Adonay Trujillo Wei-Ning Kevin 1..840.1 77950.1.1 3.430.2.7 .3.925614 .[id number] [facility] 2022-10-11 00:00:00 2022-10-11 00:00:00 Documentat ion Provider, Unknown 1.2.840.1 96786.1.1 3.430.2.7 .3.335803 .8 [id number] [facility] 2022-10-10 00:00:00 2022-10-10 00:00:00 Patient Secure Msg Doctor Unassigned, [place] [facility] 1.840.114 350.1.13.10 4.2.7.2.686 [id number] [facility] 2022-10-07 22:45:00 2022-10-08 03:24:00 Emergency X MARIIA CURRAN [facility] ERT [id number] [facility] 2022-10-07 22:45:00 2022-10-08 03:24:00 Emergency Mariia Curran [facility] 1.840.114 350.1.13.10 4.2.7.2.686 [id number] [facility] 2022-09-24 00:00:00 2022-09-24 00:00:00 Telephone Stefania Tobar [facility] 1.2840.114 350.1.13.10 4.2.7.2.686 [id number] [facility] 2022-08-07 00:00:00 2022-08-07 00:00:00 Outpatient BEBA_Oral_ Ezequiel_ AOSM AOSM [id number] [facility] 2022-07-28 10:49:00 2022-07-28 14:17:00 Emergency Annita Seth 1.2.840.1 33021.1.1 3.430.2.7 .3.903914 .8 [id number] [facility] 2022-07-28 09:00:00 2022-07-28 09:20:09 Outpatient R STEFANIA TOBAR [facility] [id number] [facility] 2022-07-28 09:00:00 2022-07-28 09:20:09 Office Visit Stefania Tobar [facility] 1.2.840.114 350.1.13.10 4.2.7.2.686 [id number] [facility] 2022-07-28 00:00:00 2022-07-28 00:00:00 Travel 1.2.840.1 91961.1.1 3.430.2.7 .3.705699 .8 1.2.840.114 350.1.13.43 0.2.7.3.698 084.8 [id number] [facility] 2022-07-28 00:00:00 2022-07-28 00:00:00 Telephone Ekaterina [facility] 1.2.840.114 350.1.13.10 4.2.7.2.686 [id number] [facility] 2022-07-22 19:42:00 2022-07-23 00:14:00 Emergency X LISA MURILLO [facility] [id number] [facility] 2022-07-22 19:42:00 2022-07-23 00:14:00 Emergency Lisa Murillo [facility] 1.2.840.114 350.1.13.10 4.2.7.2.686 [id number] [facility] 2022-07-06 16:10:00 2022-07-06 16:10:00 Outpatient STEFANIA MANCUSO [facility] [id number] [facility] 2022-07-04 15:00:00 2022-07-04 15:00:00 Outpatient R [facility] [id number] [facility] 2022-06-30 09:00:00 2022-06-30 09:00:00 Outpatient R [facility] [id number] [facility] 2022-06-29 00:00:00 2022-06-29 00:00:00 Telephone Stefania Jones [facility] 1.20.114 350.1.13.10 4.2.7.2.686 [id number] [facility] 2022-06-15 13:20:23 2022-06-15 23:59:00 Outpatient R SCOUT ALATORRET [facility] [id number] [facility] 2022-06-15 13:20:23 2022-06-15 23:59:00 Hospital Encounter Scout Alatorret [facility] 1.840.114 350.1.13.10 4.2.7.2.686 [id number] [facility] 2022-06-15 00:00:00 2022-06-15 00:00:00 Telephone Dionisio Freeman [facility] 1..114 350.1.13.10 4.2.7.2.686 [id number] [id number] [facility] 2022-06-15 00:00:00 2022-06-15 00:00:00 Orders Only Doctor Unassigned, [place] [facility] 1.2840.114 350.1.13.10 4.2.7.2.686 [id number] [facility] 2022-05-30 15:30:00 2022-05-30 15:30:00 Outpatient R [facility] [id number] [facility] 2022-05-10 00:00:00 2022-05-10 00:00:00 Patient Secure Msg Doctor Unassigned, [place] [facility] 1.20.114 350.1.13.10 4.2.7.2.686 [id number] [facility] 2022-05-04 14:40:00 2022-05-04 14:40:00 Outpatient TITO FRANCIS [id number] Seth Townsend 2022-05-03 00:00:00 2022-05-03 00:00:00 Outpatient Visit [id number] 261b-4edf -8139-75d [id number] f83v4969-1 61b-4edf-8 [id number] [id number] 2022-04-28 00:00:00 2022-04-28 00:00:00 [facility] 1.2.840.114 350.1.13.10 4.2.7.2.686 [id number] [facility] 2022-04-26 00:00:00 2022-04-26 00:00:00 Telephone Kristine Ojeda [facility] 1.2.840.114 350.1.13.10 4.2.7.2.686 [id number] [facility] 2022-04-25 15:15:00 2022-04-25 15:30:00 Clothes Separator Visit Pcp-Mer Ochoa [facility] 1.2.840.114 350.1.13.10 4.2.7.2.686 [id number] [facility] 2022-04-25 14:00:00 2022-04-25 15:08:22 Outpatient Issa OCHOA [facility] [id number] [facility] 2022-04-25 14:00:00 2022-04-25 15:08:22 Office Visit El Scales [facility] 1.2.840.114 350.1.13.10 4.2.7.2.686 [id number] [facility] 2022-03-16 00:00:00 2022-03-16 00:00:00 Outpatient Visit [id number] 98e9-4253 -98o4-42v [id number] 7e7-8762-7 4v3-29y100 2c67e7 2022-02-27 08:00:00 2022-02-27 08:00:00 Outpatient DOROTEO CAMACHO [facility] [id number] [facility] 2022-02-06 10:30:00 2022-02-06 10:30:00 Outpatient NINA TELLES SHIWAN [facility] [id number] [facility] 2022-02-01 00:00:00 2022-02-01 00:00:00 Outpatient Visit [id number]- fce7-452a -924a-d2a [id number] [id number] 874r9b78-t ce7-452a-9 24a-r4k957 u8y639 2022-01-27 00:00:00 2022-01-27 00:00:00 Outpatient Visit [id number] f1x3-680r -db2y-g19 q5h073n36 [id number] 8357sx17-f 2i9-487d-v d5i-i07a5b 394e27 2022-01-10 00:00:00 2022-01-10 00:00:00 Orders Only Doctor Unassigned, [place] [facility] 1.2.840.114 350.1.13.10 4.2.7.2.686 [id number] [facility] 2022-01-10 00:00:00 2022-01-10 00:00:00 Outpatient Visit [id number]- 0p35-8e3y -a23s-tpm 2e5wo14i6 [id number] 3w36807r-7 q55-6x0m-f 06b-baa1f0 fa00b2 2022-01-07 00:00:00 2022-01-07 00:00:00 Outpatient Visit [id number]- 2661-44e8 -6k37-050 q47dh581n [id number] c248iq12-4 661-44e8-8 v09-686z94 yv803g 2021-11-30 00:00:00 2021-11-30 00:00:00 Outpatient Visit 9sx3961z- 2617-9605 -6w98-525 [id number] [id number] 2km5878r-9 202-4562-8 d42-167239 6b3386 2021-11-25 00:00:00 2021-11-25 00:00:00 Outpatient Visit dvdan865- 1694-4ca5 -38d2-445 [id number] idvmu645-7 694-4ca5-9 6u2-4669t2 471560 5900-07-26 00:00:00 2021-11-08 00:00:00 Outpatient Visit 31jj5a37- 1wb4-73p5 -c722-2x8 0y6533owl [id number] 96wg0l29-6 ce1-48a3-b 658-7a18e3 625efb 2021-06-21 11:00:00 2021-06-21 11:00:00 Outpatient R ILA SALDIVAR [facility] [id number] [facility] 2020-07-12 09:30:00 2020-07-12 09:30:00 Outpatient R LALA, ANTHONY [facility] [id number] [facility] 2020-07-01 00:00:00 2020-07-01 00:00:00 Patient Outreach Kirk Montgomery [facility] 1.2.840.114 350.1.13.10 4.2.7.2.686 [id number] 2020-07-01 00:00:00 2020-07-01 00:00:00 Patient Outreach Kirk Montgomery Josep [facility] 1.2.840.114 350.1.13.10 4.2.7.2.686 [id number] [facility] 2020-06-30 10:40:00 2020-06-30 10:40:00 Outpatient R SREEKANTH MONSALVE [facility] [id number] [facility] 2020-05-06 11:00:00 2020-05-06 11:00:00 Outpatient R JUAN CARLOS PIEDRA [facility] [id number] [facility] 2020-03-09 00:00:00 2020-03-09 00:00:00 [facility] 1.2.840.114 350.1.13.10 4.2.7.2.686 [id number] 2020-03-09 00:00:00 2020-03-09 00:00:00 [facility] 1.2.840.114 350.1.13.10 4.2.7.2.686 [id number] [facility] 2020-01-27 00:00:00 2020-01-27 00:00:00 [facility] 1.2.840.114 350.1.13.10 4.2.7.2.686 [id number] [facility] 2020-01-27 00:00:00 2020-01-27 00:00:00 [facility] 1.2.840.114 350.1.13.10 4.2.7.2.686 [id number] 2019-12-28 00:00:00 2019-12-28 00:00:00 Refill Lynda Shultz [facility] 1.2.840.114 350.1.13.10 4.2.7.2.686 [id number] [facility] 2019-12-28 00:00:00 2019-12-28 00:00:00 Refill Carrlani Lynda [facility] 1.2.840.114 350.1.13.10 4.2.7.2.686 [id number] 2019-12-25 13:30:00 2019-12-25 13:30:00 Outpatient STEFANIA URRUTIA [facility] [id number] [facility] 2019-12-24 00:00:00 2019-12-24 00:00:00 Refill Lynda Shultz [facility] 1.2.840.114 350.1.13.10 4.2.7.2.686 [id number] [facility] 2019-12-24 00:00:00 2019-12-24 00:00:00 Refill Lynda Shultz [facility] 1.2840.114 350.1.13.10 4.2.7.2.686 [id number] 2019-12-18 08:30:00 2019-12-18 08:30:00 Outpatient ILA CEJA [facility] [id number] [facility] 2019-12-12 00:00:00 2019-12-12 00:00:00 Refill Juan Carlos Piedra [facility] 1.2840.114 350.1.13.10 4.2.7.2.686 [id number] [facility] 2019-12-12 00:00:00 2019-12-12 00:00:00 Refill Juan Carlos Piedra [facility] 1.2.840.114 350.1.13.10 4.2.7.2.686 [id number] 2019-12-10 11:00:00 2019-12-10 11:00:00 Outpatient ILA CEJA [facility] [id number] [facility] 2019-12-09 00:00:00 2019-12-09 00:00:00 Refill Juan Carlos Piedra [facility] 1.2.840.114 350.1.13.10 4.2.7.2.686 [id number] [facility] 2019-12-09 00:00:00 2019-12-09 00:00:00 Refill Ila Saldivar [facility] 1.2.840.114 350.1.13.10 4.2.7.2.686 [id number] [facility] 2019-12-09 00:00:00 2019-12-09 00:00:00 Refill Juan Carlos Piedra [facility] 1.2.840.114 350.1.13.10 4.2.7.2.686 [id number] 2019-12-09 00:00:00 2019-12-09 00:00:00 Refill Ila Saldivar [facility] 1.2.840.114 350.1.13.10 4.2.7.2.686 [id number] 2019-12-04 00:00:00 2019-12-04 00:00:00 Telephone Lynda Shultz [facility] 1.2.840.114 350.1.13.10 4.2.7.2.686 [id number] [facility] 2019-12-04 00:00:00 2019-12-04 00:00:00 Telephone Lynda Shultz [facility] 1.2.840.114 350.1.13.10 4.2.7.2.686 [id number] 2019-12-02 09:06:15 2019-12-02 10:45:17 Office Visit Juan Carlos Piedra [facility] 1.2.840.114 350.1.13.10 4.2.7.2.686 [id number] [facility] 2019-12-02 09:06:15 2019-12-02 10:45:17 Office Visit PiedraJuan Carlos del real [facility] 1.2.840.114 350.1.13.10 4.2.7.2.686 [id number] 2019-12-02 09:30:00 2019-12-02 09:30:00 Outpatient R PIEDRA, JUAN CARLOS [facility] [id number] [facility] 2019-12-02 00:00:00 2019-12-02 00:00:00 Telephone PiedraJuan Carlos del real [facility] 1.2.840.114 350.1.13.10 4.2.7.2.686 [id number] [facility] 2019-12-01 10:00:00 2019-12-01 10:00:00 Outpatient R LIA SALDIVAR [facility] [id number] [facility] 2019-10-15 13:30:00 2019-10-15 13:30:00 Outpatient R ANTHONY REEVES [facility] [id number] [facility] 2019-10-09 00:00:00 2019-10-09 00:00:00 RefLynda Reynaga [facility] 1.2.840.114 350.1.13.10 4.2.7.2.686 [id number] [facility] 2019-10-08 00:00:00 2019-10-08 00:00:00 Telephone Lynda Shultz [facility] 1.2.840.114 350.1.13.10 4.2.7.2.686 [id number] [facility] 2019-10-06 00:00:00 2019-10-06 00:00:00 Ila Rowland [facility] 1.2.840.114 350.1.13.10 4.2.7.2.686 [id number] [facility] 2019-09-30 09:56:40 2019-09-30 10:26:40 Telemedici ne Visit Ila Saldivar [facility] 1.2.840.114 350.1.13.10 4.2.7.2.686 [id number] [facility] 2019-09-30 09:30:00 2019-09-30 09:30:00 Outpatient R ILA SALDIVAR [facility] [id number] [facility] 2019-09-22 00:00:00 2019-09-22 00:00:00 Refill Carrington [facility] 1.2.840.114 350.1.13.10 4.2.7.2.686 [id number] [facility] 2019-09-02 07:24:21 2019-09-04 09:05:02 Telemedici ne Visit Carrington [facility] 1.2.840.114 350.1.13.10 4.2.7.2.686 [id number] [facility] 2019-09-04 00:00:00 2019-09-04 00:00:00 Refill Carrington [facility] 1.2.840.114 350.1.13.10 4.2.7.2.686 [id number] [facility] 2019-09-02 11:00:00 2019-09-02 11:00:00 Outpatient R LYNDA SHULTZ [facility] [id number] [facility] 2019-09-01 08:58:21 2019-09-01 09:13:21 Clothes Separator Visit [facility] Juan Carlos Piedra [facility] 1.2.840.114 350.1.13.10 4.2.7.2.686 [id number] [facility] 2019-09-01 09:00:00 2019-09-01 09:00:00 Outpatient JUAN CARLOS BRANTLEY [facility] [id number] [facility] 2019-08-24 00:00:00 2019-08-24 00:00:00 Refill Lynda Shultz [facility] 1.2.840.114 350.1.13.10 4.2.7.2.686 [id number] [facility] 2019-08-08 14:20:00 2019-08-08 14:20:00 Outpatient JV LIM [facility] [id number] [facility] 2019-08-07 00:00:00 2019-08-07 00:00:00 Telephone Lynda Shultz [facility] 1.2.840.114 350.1.13.10 4.2.7.2.686 [id number] [facility] 2019-08-07 00:00:00 2019-08-07 00:00:00 Telephone Mick Jaime [facility] 1.2.840.114 350.1.13.10 4.2.7.2.686 [id number] [facility] 2019-08-06 00:00:00 2019-08-06 00:00:00 Refill Carrington Lynda [facility] 1.2.840.114 350.1.13.10 4.2.7.2.686 [id number] [facility] 2019-08-05 00:00:00 2019-08-05 00:00:00 [facility] 1.2.840.114 350.1.13.10 4.2.7.2.686 [id number] [facility] 2019-08-01 15:10:00 2019-08-01 15:10:00 Outpatient PAULINA BIGGS [facility] [id number] [facility] 2019-08-01 13:53:58 2019-08-01 14:23:58 Telemedici ne Visit Addison, [facility], Paulina Bo [facility] 1.2.840.114 350.1.13.10 4.2.7.2.686 [id number] [facility] 2019-08-01 00:00:00 2019-08-01 00:00:00 Refill CarrLynda garibay [facility] 1.2.840.114 350.1.13.10 4.2.7.2.686 [id number] [facility] 2019-08-01 00:00:00 2019-08-01 00:00:00 Telephone CarreteLynda [facility] 1.2.840.114 350.1.13.10 4.2.7.2.686 [id number] [facility] 2019-07-28 00:00:00 2019-07-28 00:00:00 Refill Carrete [facility] 1.2.840.114 350.1.13.10 4.2.7.2.686 [id number] [facility] 2019-07-21 00:00:00 2019-07-21 00:00:00 Telephone CarrLynda garibay [facility] 1.2.840.114 350.1.13.10 4.2.7.2.686 [id number] [facility] 2019-07-18 00:00:00 2019-07-18 00:00:00 Refill Carrete, Lynda [facility] 1.2.840.114 350.1.13.10 4.2.7.2.686 [id number] [facility] 2019-07-17 00:00:00 2019-07-17 00:00:00 Refill Carrete, [facility] 1.2.840.114 350.1.13.10 4.2.7.2.686 [id number] [facility] 2019-07-16 00:00:00 2019-07-16 00:00:00 Refill CarrLynda garibay [facility] 1.2.840.114 350.1.13.10 4.2.7.2.686 [id number] [facility] 2019-07-14 00:00:00 2019-07-14 00:00:00 Telephone Carrlani [facility] 1.2.840.114 350.1.13.10 4.2.7.2.686 [id number] [facility] 2019-07-14 00:00:00 2019-07-14 00:00:00 Refill Carrlani [facility] 1.2.840.114 350.1.13.10 4.2.7.2.686 [id number] [facility] 2019-07-08 08:06:45 2019-07-08 08:36:45 Telemedici ne Visit Carrington [facility] 1.2.840.114 350.1.13.10 4.2.7.2.686 [id number] [facility] 2019-07-08 08:30:00 2019-07-08 08:30:00 Outpatient R CARRINGTON LYNDA [facility] [id number] [facility] 2019-07-06 00:00:00 2019-07-06 00:00:00 Nurse Triage Mariangel Vogel [facility] 1.2.840.114 350.1.13.10 4.2.7.2.686 [id number] [facility] 2019-07-06 00:00:00 2019-07-06 00:00:00 Telephone Carrlani [facility] 1.2.840.114 350.1.13.10 4.2.7.2.686 [id number] [facility] 2019-06-24 00:00:00 2019-06-24 00:00:00 Refill Lynda Shultz [facility] 1.2.840.114 350.1.13.10 4.2.7.2.686 [id number] [facility] 2019-05-13 00:00:00 2019-05-13 00:00:00 Telephone Lynda Shultz [facility] 1.2.840.114 350.1.13.10 4.2.7.2.686 [id number] [facility] 2019-05-13 00:00:00 2019-05-13 00:00:00 Telephone Emile Gee [facility] 1.2.840.114 350.1.13.10 4.2.7.2.686 [id number] [facility] 2019-04-04 14:50:00 2019-04-04 15:10:33 Outpatient BRADEN DELUNA [facility] [id number] [facility] 2018-12-30 00:00:00 2018-12-30 00:00:00 Telephone Jasson LanierIzzyMonika Varghese [facility] 1.2.840.114 350.1.13.10 4.2.7.2.686 [id number] [facility] 2018-11-25 06:56:56 2018-11-25 23:59:00 Hospital Encounter Aparna Rowley [facility] Unit 1.2.840.114 350.1.13.10 4.2.7.2.686 [id number] [facility] 2017-09-05 00:00:00 2017-10-23 00:00:00 Outpatient H[facility] H[facility]O [id number] [facility] Office 2017-10-18 21:09:01 2017-10-18 21:09:01 Outpatient HCSO H[facility]O [id number] [facility] Office 2016-04-27 00:00:00 2016-09-27 00:00:00 Outpatient HCSO HCSO [id number] [facility] Office Results Test Description Test Time Test Comments Results Resul t Comments Source - DUP VEIN UNI RT 2022-10-25 12:00:[address] [facility] 1975 Sex: F Donald tient Name: CYNDIE PENN Unit No: [id number] EXAMS: CPT CODE: [id number] [place] [address] - DUP VEIN UNI RT INDICATION:Right leg [...] CC: Sharon Agudelo MD Technologist: BRICE DAWSON RDMS AB,[facility]; [facility] Probe: Trscr Dt/Tm: 10/25/2022 (1200) by:[email or web address] Printed Date/Time: 10/25/2022 (5016) Name: CYNDIE PENN [facility] Phys: Sharon Griffith MD [address] : 1975 Age: 46 Sex: [place] [address] Loc: P.0702 1 Exam Date: 10/25/2022 Status: ADM IN PH: FAX: PAGE 1 Signed Report HGB [id number] 07:37:00* Test Item Value Reference Range Interpretation Comme nts HEMOGLOBIN (test code = HGB) 8.4 g/dL 12.0-16.0 L HEMATOCRIT (test code = HCT) 26.1 % 37.0-47.0 L BASIC METABOLIC [id number] 06:41:00* Test Item Value Reference Range Interpretation Comme nts SODIUM (test code = NA) 138 mmol/L 136-145 N POTASSIUM (test code = K) 4.2 mmol/L 3.5-5.1 N CHLORIDE (test code = CL) 105 mmol/l 98-107 N CARBON DIOXIDE (test code = CO2) 27 mmol/L 20-31 N GLUCOSE (test code = GLU) 96 ng/dL 74-106 N BLOOD UREA NITROGEN (test code = BUN) 8 mg/dL 9-23 L GLOMERULAR FILTRATION RATE (test code = GFR) >=60 max estimate mL/min >60 The Glomerular Filtration Rate is a calculated parameterbased on serum Creatinine, patient age and sex. GFR valuesless than 60 mL/min/1.73 square meters are indicative ofChronic Kidney Disease. Values less than 15 mL/min/1.73square meters indicate Kidney failure. The calculation forGFR is based on the CKD-EPI (2020) calculation. This formulais race indifferent and is the recommended formula for GFRby the National Kidney Foundation for Adults.The GFR will not calculate if the sex is unknown or if thepatient's age is <18 years. CREATININE (test code = CREAT) 0.60 mg/dL 0.55-1.02 N CALCIUM (test code = CA) 7.5 mg/dL 8.7-10.4 L CBC W/AUTO [id number] 06:22:00* Test Item Value Reference Range Interpretation Comme nts WHITE BLOOD CELL (test code = WBC) 8.2 x10 3/uL 4.8-10.8 N RED BLOOD CELL (test code = RBC) 3.15 x10 6/uL 4.20-5.40 L HEMOGLOBIN (test code = HGB) 9.3 g/dL 12.0-16.0 L HEMATOCRIT (test code = HCT) 28.4 % 37.0-47.0 L MEAN CELL VOLUME (test code = MCV) 90.2 fL 81.0-99.0 N MEAN CELL HGB (test code = MCH) 29.5 pg 27-31 N MEAN CELL HGB CONCENTRATION (test code = MCHC) 32.7 G/DL 33-36.5 L RED CELL DISTRIBUTION WIDTH (test code = RDW) 14.1 % 12.9-16.9 N PLATELET COUNT (test code = PLT) 244 x10 3/uL 150-440 N MEAN PLATELET VOLUME (test c ode = MPV) 10.0 fL 8.9-12.4 N NEUTROPHIL % (test code = NT%) 71.4 [...] 3/uL 0.0-0.20 N - XR FLUOROSCOPY 0-60 [id number] 13:44:00 [facility] : 1975 Sex: FPatient Name: CYNDIE PENN Unit No: [id number] EXAMS: CPT CODE: [id number] XR FLUOROSCOPY 0- 60 MIN 17313 Fluoroscopy Location Code: D4 CLINICAL HISTORY: Right [...] m2): Air Kerma (mGy): Trscr Dt/Tm: 10/21/2022 (5985) by:[email or web address] Printed Date/Time: 10/21/2022 (1045) Name: CYNDIE PENN [facility] Phys: [id number] - Sharon Agudelo MD [address] : 1975 Age: 46 Sex: [place] [address] Loc: P.0702 1 Exam Date: 10/21/2022 Status: ADM IN PH: FAX: PAGE 1 Signed Report- XR HIP W/PEL UNI 2+V [id number] 13:43:00 [facility] : 1975 Sex: FPatient Name: CYNDIE PENN Unit No: [id number] EXAMS: CPT CODE: [id number] XR HIP W/PEL UNI 2+V [place] 70855 Right hip, 2 views Location Code: D4 CLINICAL HISTORY: post op COMMENTS: AP and frogleg lateral views of the right hip demonstrate postoperative total right hip arthroplasty which is in satisfactory alignment. Hardware is intact. Postoperative surgical lor noted. IMPRESSION: 1. Stable postoperative total right hip arthroplasty. at 1343 Reported and signed by: ALEXANDRA PEPE M.D. CC: Balbir Menchaca MD; Sharon Agudelo MD Technologist: Rika Greenfield Time: DAP (Gy m2): Air Kerma (mGy): Trscr Dt/Tm: 10/21/2022 (1343) by:[email or web address] Printed Date/Time: 10/21/2022 (1347) Name: CYNDIE PENN [facility] Phys: Balbir Santiago MD [address] : 1975 Age: 46 Sex: [place] [address] Loc: P.0702 1 Exam Date: 10/21/2022 Status: ADM IN PH: FAX: PAGE 1 Signed ReportBASI METABOLIC [id number] 07:03:00* Test Item Value Reference Range Interpretation Comme nts SODIUM (test code = NA) 135 mmol/L 136-145 L POTASSIUM (test code = K) 4.3 mmol/L 3.5-5.1 N CHLORIDE (test code = CL) 101 mmol/l 98-107 N CARBON DIOXIDE (test code = CO2) 29 mmol/L 20-31 N GLUCOSE (test code = GLU) 71 ng/dL 74-106 L BLOOD UREA NITROGEN (test code = BUN) 9 mg/dL 9-23 N GLOMERULAR FILTRATION RATE (test code = GFR) >=60 max estimate mL/min >60 The Glomerular Filtration Rate is a calculated parameterbased on serum Creatinine, patient age and sex. GFR valuesless than 60 mL/min/1.73 square meters are indicative ofChronic Kidney Disease. Values less than 15 mL/min/1.73square meters indicate Kidney failure. The calculation forGFR is based on the CKD-EPI (202) calculation. This formulais race indifferent and is the recommended formula for GFRby the National Kidney Foundation for Adults.The GFR will not calculate if the sex is unknown or if thepatient's age is <18 years. CREATININE (test code = CREAT) 0.80 mg/dL 0.55-1.02 N CALCIUM (test code = CA) 8.8 mg/dL 8.7-10.4 N CBC W/AUTO [id number] 07:03:00* Test Item Value Reference Range Interpretation Comme nts WHITE BLOOD CELL (test code = WBC) 5.4 x10 3/uL 4.8-10.8 N RED BLOOD CELL (test code = RBC) 4.33 x10 6/uL 4.20-5.40 N HEMOGLOBIN (test code = HGB) 12.6 g/dL 12.0-16.0 N HEMATOCRIT (test code = HCT) 39.0 % 37.0-47.0 N MEAN CELL VOLUME (test code = MCV) 90.1 fL 81.0-99.0 N MEAN CELL HGB (test code = MCH) 29.1 pg 27-31 N MEAN CELL HGB CONCENTRATION (test code = MCHC) 32.3 G/DL 33-36.5 L RED CELL DISTRIBUTION WIDTH (test code = RDW) 13.9 % 12.9-16.9 N PLATELET COUNT (test code = PLT) 332 x10 3/uL 150-440 N MEAN PLATELET VOLUME (test c ode = MPV) 10.3 fL 8.9-12.4 N NEUTROPHIL % (test code = NT%) 50.1 [...] 0.07 x10 3/uL 0.0-0.20 N BASIC METABOLIC [id number] 07:48:00* Test Item Value Reference Range Interpretation Comme nts SODIUM (test code = NA) 138 mmol/L 136-145 N POTASSIUM (test code = K) 3.9 mmol/L 3.5-5.1 N CHLORIDE (test code = CL) 103 mmol/l 98-107 N CARBON DIOXIDE (test code = CO2) 29 mmol/L 20-31 N GLUCOSE (test code = GLU) 94 ng/dL 74-106 N BLOOD UREA NITROGEN (test code = BUN) 14 mg/dL 9-23 N GLOMERULAR FILTRATION RATE (test code = GFR) >=60 max estimate mL/min >60 The Glomerular Filtration Rate is a calculated parameterbased on serum Creatinine, patient age and sex. GFR valuesless than 60 mL/min/1.73 square meters are indicative ofChronic Kidney Disease. Values less than 15 mL/min/1.73square meters indicate Kidney failure. The calculation forGFR is based on the CKD-EPI (202) calculation. This formulais race indifferent and is the recommended formula for GFRby the National Kidney Foundation for Adults.The GFR will not calculate if the sex is unknown or if thepatient's age is <18 years. CREATININE (test code = CREAT) 0.80 mg/dL 0.55-1.02 N CALCIUM (test code = CA) 8.2 mg/dL 8.7-10.4 L CBC W/AUTO [id number] 07:03:00* Test Item Value Reference Range Interpretation Comme nts WHITE BLOOD CELL (test code = WBC) 6.6 x10 3/uL 4.8-10.8 N RED BLOOD CELL (test code = RBC) 4.20 x10 6/uL 4.20-5.40 N HEMOGLOBIN (test code = HGB) 12.0 g/dL 12.0-16.0 N HEMATOCRIT (test code = HCT) 37.0 % 37.0-47.0 N MEAN CELL VOLUME (test code = MCV) 88.1 fL 81.0-99.0 N MEAN CELL HGB (test code = MCH) 28.6 pg 27-31 N MEAN CELL HGB CONCENTRATION (test code = MCHC) 32.4 G/DL 33-36.5 L RED CELL DISTRIBUTION WIDTH (test code = RDW) 13.8 % 12.9-16.9 N PLATELET COUNT (test code = PLT) 305 x10 3/uL 150-440 N MEAN PLATELET VOLUME (test c ode = MPV) 10.2 fL 8.9-12.4 N NEUTROPHIL % (test code = NT%) 54.6 [...] BA#) 0.06 x10 3/uL 0.0-0.20 N T3 [id number] 04:08:00* Test Item Value Reference Range Interpretation Comme nts T3 FREE (test code = T3F) 2.5 pg/mL 2.0-4.4 Performed At: [facility] [id number] Kyle L MD Ph:[phone] T4 [id number] 17:59:00* Test Item Value Reference Range Interpretation Comme nts T4 FREE (test code = T4F) 0.68 ng/dL 0.89-1.76 L THYROID STIMULATING [id number] 05:14:00* Test Item Value Reference Range Interpretation Comme nts THYROID STIMULATING HORMONE (test code = TSH) 46.89 mIU/mL 0.55-4.78 H BASIC METABOLIC [id number] 05:05:00* Test Item Value Reference Range Interpretation Comme nts SODIUM (test code = NA) 141 mmol/L 136-145 N POTASSIUM (test code = K) 4.0 mmol/L 3.5-5.1 N CHLORIDE (test code = CL) 105 mmol/l 98-107 N CARBON DIOXIDE (test code = CO2) 28 mmol/L 20-31 N GLUCOSE (test code = GLU) 92 ng/dL 74-106 N BLOOD UREA NITROGEN (test code = BUN) 6 mg/dL 9-23 L GLOMERULAR FILTRATION RATE (test code = GFR) >=60 max estimate mL/min >60 The Glomerular Filtration Rate is a calculated parameterbased on serum Creatinine, patient age and sex. GFR valuesless than 60 mL/min/1.73 square meters are indicative ofChronic Kidney Disease. Values less than 15 mL/min/1.73square meters indicate Kidney failure. The calculation forGFR is based on the CKD-EPI (2020) calculation. This formulais race indifferent and is the recommended formula for GFRby the National Kidney Foundation for Adults.The GFR will not calculate if the sex is unknown or if thepatient's age is <18 years. CREATININE (test code = CREAT) 0.70 mg/dL 0.55-1.02 N CALCIUM (test code = CA) 8.6 mg/dL 8.7-10.4 L CBC W/AUTO [id number] 04:57:00* Test Item Value Reference Range Interpretation Comme nts WHITE BLOOD CELL (test code = WBC) 5.4 x10 3/uL 4.8-10.8 N RED BLOOD CELL (test code = RBC) 4.09 x10 6/uL 4.20-5.40 L HEMOGLOBIN (test code = HGB) 12.0 g/dL 12.0-16.0 N HEMATOCRIT (test code = HCT) 37.0 % 37.0-47.0 N MEAN CELL VOLUME (test code = MCV) 90.5 fL 81.0-99.0 N MEAN CELL HGB (test code = MCH) 29.3 pg 27-31 N MEAN CELL HGB CONCENTRATION (test code = MCHC) 32.4 G/DL 33-36.5 L RED CELL DISTRIBUTION WIDTH (test code = RDW) 13.9 % 12.9-16.9 N PLATELET COUNT (test code = PLT) 283 x10 3/uL 150-440 N MEAN PLATELET VOLUME (test c ode = MPV) 10.1 fL 8.9-12.4 N NEUTROPHIL % (test code = NT%) 48.3 [...] 3/uL 0.0-0.20 N - CT PELVIS W/O [id number] 20:22:00 [facility] : 1975 Sex: FPatient Name: CYNDIE PENN Unit No: [id number] EXAMS: CPT CODE: [id number] CT PELVIS W/O CONTRAST 05760 EXAM: CT PELVIS WITHOUT CONTRAST INDICATION: fall, [...] to adjust the radiation dose to minimize exposurewhile achieving a diagnostic quality image. FINDINGS: Statements: Lack of intravenous contrast compromises evaluation of pelvic organs and vasculature. Bladder/Reproductive system: Evaluation of thebladder is limited, but no obvious bladder abnormality [...] represent chronic erosion into the right greater trochanter by the fracture in nonunion. No acute fracture or malalignment is seen. No ventral hernias. Peritoneum/Other: No extraluminal air. No extraluminal fluid. 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 No acute fracture is seen. at 2021 Reported and signed by: ADELFO CUTLER M.D.Name: CYNDIE PENN [facility] Phys: GRACIE - Sabrina Artis MD [address] : 1975 Age: 46 Sex: [place] [address] Loc: P.MAGYS 2 Exam Date: 10/16/2022 Status: ADM IN PH: FAX: PAGE 1 Signed Report (CONTINUED) Patient Name: CYNDIE PENN Unit No: [id number] EXAMS: CPT CODE: [id number] CT PELVIS W/O CONTRAST 48793 (Continued) CC: Felix Artis MD Technologist: SORAYA KING (R) CTDI: 9.96 DLP: 275 Trscr Dt/Tm: 10/16/2022 (2021) by:[email or web address] Printed Date/Time: 10/16/2022 (2024) Name: CYNDIE PENN [facility] Phys: CHECH. - Sabrina Artis MD [address] : 1975 Age: 46 Sex: [place] [address] Loc: P.ERMS 2 Exam Date: 10/16/2022 Status: ADM IN PH: FAX: PAGE 2 Signed Report- XR KNEE 1 OR 2 V [id number] 18:44:00 [facility] : 1975 Sex: FPatient Name: CYNDIE PENN Unit No: [id number] EXAMS: CPT CODE: [id number] XR KNEE 1 OR 2 V RT [address]671 EXAM: - XR HIP W/PEL UNI 2+V [...] neck with underlying pathologic fracture. at 1844 Reportedand signed by: ADELFO CUTLER M.D. CC: Sabrina Artis MD Technologist: Sahil Greenfield Time: DAP (Gy m2): Air Kerma (mGy): Trscr Dt/Tm: 10/16/2022 (1843) by:[email or web address] Printed Date/Time: (1846) Name: CYNDIE PENN [facility] Phys: Sabrina Elena MD [address] : 1975 Age: 46 Sex: [place] [address] Loc: P.ERS Exam Date: 10/16/2022 Status: REG ER PH: FAX: PAGE 1 Signed Report- XR HIP W/PEL UNI 2+V [id number] 18:44:00 [facility] : 1975 Sex: FPatient Name: CYNDIE PENN Unit No: [id number] EXAMS: CPT CODE: [id number] XR HIP W/PEL UNI 2+[place] RT [address] EXAM: - XR HIP W/PEL UNI 2+V [...] right greater trochanter/femoral neck with underlying pathologic f racture. at 1844 Reported and signed by: ADELFO CUTLER M.D. CC: Sabrina Artis MD Technologist: Sahil Mathis Fluoro Time: DAP (Gy m2): Air Kerma (mGy): Trscr Dt/Tm: 10/16/2022 (1843) by:[email or web address] Printed Date/Time: 10/16/2022 (1846) Name: CYNDIE PENN [facility] Phys: MAGGIECH.Sabrina Jaime MD [address] : 1975 Age: 46 Sex: F [place] [address] Loc: P.ERS Exam Date: 10/16/2022 Status: REG ER PH: FAX: PAGE 1 Signed Report- XR SHOULDER 2 + V [id number] 18:44:00 [facility] : 1975 Sex: FPatient Name: CYNDIE PENN Unit No: [id number] EXAMS: CPT CODE: [id number] XR SHOULDER 2 + V RT [address]807 EXAM: - XR SHOULDER 2 + V [...] m2): Air Kerma (mGy): Trscr Dt/Tm: 10/16/2022 (184) by:[email or web address] Printed Date/Time: 10/16/2022 (1847) Name: CYNDIE PENN [facility] Phys: GILBERTSabrina Mendoza MD [address] : 1975 Age: 46 Sex: [place] [address] Loc: P.ERS Exam Date: 10/16/2022 Status: REG ER PH: FAX: PAGE 1 Signed ReportECG 12 [id number] 23:41:58* Test Item Value Reference Range Interpretation Comme nts Ventricular rate (test code = 253) 71 Atrial rate (test code = 255) 71 MA interval (test code = 266) 150 QRSD interval (test code = 260) 74 QT interval (test code = 264) 402 QTC interval (test code = 265) 436 P axis 1 (test code = 267) 67 QRS axis 1 (test code = 268) 66 T wave axis (test code = 270) 50 EKG impression (test code = 273) ^^^ Poor data quality, interpretation may be adversely affected-Normal sinus rhythm-Otherwise normal ECG-No previous ECGs available-Electronically Signed By Yisel CARLOS, [facility] ([id number]) on 10/11/2022 6:41:57 PM [facility] [id number] 23:41:58* Test Item Value Reference Range Interpretation Comme nts Ventricular rate (test code = 253) 71 Atrial rate (test code = 255) 71 MA interval (test code = 266) 150 QRSD interval (test code = 260) 74 QT interval (test code = 264) 402 QTC interval (test code = 265) 436 P axis 1 (test code = 267) 67 QRS axis 1 (test code = 268) 66 T wave axis (test code = 270) 50 EKG impression (test code = 273) ^^^ Poor data quality, interpretation may be adversely affected-Normal sinus rhythm-Otherwise normal ECG-No previous ECGs available- [place] [address] [id number] 23:41:58* Test Item Value Reference Range Interpretation Comme nts Ventricular rate (test code = 253) 71 Atrial rate (test code = 255) 71 MA interval (test code = 266) 150 QRSD interval (test code = 260) 74 QT interval (test code = 264) 402 QTC interval (test code = 265) 436 P axis 1 (test code = 267) 67 QRS axis 1 (test code = 268) 66 T wave axis (test code = 270) 50 EKG impression (test code = 273) ^^^ Poor data quality, interpretation may be adversely affected-Normal sinus rhythm-Otherwise normal ECG-No previous ECGs available- [place] [address] [id number] 23:41:58* Test Item Value Reference Range Interpretation Comme nts Ventricular rate (test code = 253) 71 Atrial rate (test code = 255) 71 MA interval (test code = 266) 150 QRSD interval (test code = 260) 74 QT interval (test code = 264) 402 QTC interval (test code = 265) 436 P axis 1 (test code = 267) 67 QRS axis 1 (test code = 268) 66 T wave axis (test code = 270) 50 EKG impression (test code = 273) ^^^ Poor data quality, interpretation may be adversely affected-Normal sinus rhythm-Otherwise normal ECG-No previous ECGs available- [facility]2023-06-28 20:13:00* Test Item Value Reference Range Interpretation Comme nts Urine culture (test code = 6780142) SEE COMMENT Bacteriuria scre en negative. [facility] [id number] 20:13:00* Test Item Value Reference Range Interpretation Comme nts Urine culture (test code = 3964643) SEE COMMENT Bacteriuria scre en negative. [facility] [id number] 20:13:00* Test Item Value Reference Range Interpretation Comme nts Urine culture (test code = 9416453) SEE COMMENT Bacteriuria scre en negative. [facility] [id number] 20:13:00* Test Item Value Reference Range Interpretation Comme nts Urine culture (test code = 2901839) SEE COMMENT Bacteriuria scre en negative. [facility] [id number] 13:55:55* Test Item Value Reference Range Interpretation Comme nts SARS-CoV-2 (COVID-19) RNA [Presence] in Respiratory specimen by SONNY with probe detection (test code = 55499-2) Not detected Whether patient resides in a congregate care setting (test code = 79352-9) No Date and time of symptom ons et (test code = 83700-6) Unknown Whether the patient was hospitalized for condition of interest (test code = 56371-2) No Whether the patient was admi tted to intensive care unit (ICU) for condition of interest (test code = 87184-5) No Whether 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 WESTPOSD [id number] 04:45:00* Test Item Value Reference Range Interpretation Comme nts POCT PREG (test code = 1605) Negative On board controls acceptable with C Line (test code = 3574) Yes POCT PREG LOT # (test code = 2154) 288122 POCT PREG TEST DATE ( test code = 3576) [facility] (71293[facility]22-[facility]-23 02:32:10* Test Item Value Reference Range Interpretation Comme nts NA (test code = 8085723080) 139 mmol/L 135-145 K (test code = 0444844766) 3.4 mmol/L 3.5-5.0 L CL (test code = 2929975617) 103 mmol/L 98-108 CO2 TOTAL (test code = 3434112250) 28 mmol/L 23-31 AGAP (test code = 5785765462) 8 2-16 BUN (test code = 3603179233) 9 mg/dL 7-23 GLUCOSE (test code = 5336848714) 77 mg/dL 70-110 CREATININE (test code = 7418371853) 0.82 mg/dL 0.50-1.04 TOTAL BILI (test code = 5416752259) 0.4 mg/dL 0.1-1.1 CALCIUM (test code = 1750880726) 9.0 mg/dL 8.6-10.6 T PROTEIN (test code = 7796753194) 7.3 g/dL 6.3-8.2 ALBUMIN (test code = 2569364743) 4.3 g/dL 3.5-5.0 ALK PHOS (test code = 9056877767) 98 U/L 34-122 ALTv (test code = 1742-6) 20 U/L 5-35 AST(SGOT) (test code = 2383532564) 23 U/L 13-40 eGFR (test code = 2210510377) 75.4 mL/min/1.73m2 JAQUELIN (test code = JAQUELIN) [...] imaging tests). Lab Interpretation (test code = 38959-0) Abnormal [facility] WITH [id number] 02:21:48* Test Item Value Reference Range Interpretation Comme nts WBC (test code = 6690-2) 10.63 See_Comment [Automated BRAINDIGIT] The system which generated this result transmitted reference range: 4.30 - 11.10 10*3/?L. The reference range was not used to interpret this result as normal/abnormal. RBC (test code = 789-8) 4.30 See_Comment [Automated BRAINDIGIT] The system which generated this result transmitted reference range: 3.93 - 5.25 10*6/?L. The reference range was not used to interpret this result as normal/abnormal. HGB (test code = 718-7) 12.4 g/dL 11.6-15.0 HCT (test code = 4544-3) 37.4 % 35.7-45.2 MCV (test code = 787-2) 87.0 fL 80.6-95.5 MCH (test code = 785-6) 28.8 pg 25.9-32.8 MCHC (test code = 786-4) 33.2 g/dL 31.6-35.1 RDW-SD (test code = 94527-8) 47.6 fL 39.0-49.9 RDW-CV (test code = 788-0) 15.1 % 12.0-15.5 PLT (test code = 777-3) 341 See_Comment [Automated BRAINDIGIT] The system which generated this result transmitted reference range: 166 - 358 10*3/?L. The reference range was not used to interpret this result as normal/abnormal. MPV (test code = 58833-3) 9.8 fL 9.5-12.9 NRBC/100 WBC (test code = [id number]) 0.0 See_Comment [Automated me ssage] The system which generated this result transmitted reference range: 0.0 - 10.0 /100 WBCs. The reference range was not used to interpret this result as normal/abnormal. NRBC x10^3 (test code = [id number]) See_Comment [Automated messa ge] The system which generated this result transmitted reference range: 10*3/?L. The reference range was not used to interpret this result as normal/abnormal. GRAN MAT (NEUT) % (test code = 770-8) 67.0 % IMM GRAN % (test code = 3358829878) 0.30 % LYMPH % (test code = 736-9) 24.5 % MONO % (test code = 5905-5) 6.9 % EOS % (test code = 713-8) 0.7 % BASO % (test code = 706-2) 0.6 % GRAN MAT x10^3(ANC) (test code = 2873045248) 7.14 10*3/uL 1.88-7.09 H IMM GRAN x10^3 (test code = 4928368777) 0.03 10*3/uL 0.00-0.06 LYMPH x10^3 (test code = 731-0) 2.60 10*3/uL 1.32-3.29 MONO x10^3 (test code = 742-7) 0.73 10*3/uL 0.33-0.92 EOS x10^3 (test code = 711-2) 0.07 10*3/uL 0.03-0.39 BASO x10^3 (test code = 704-7) 0.06 10*3/uL 0.01-0.07 Lab Interpretation (test code = 59759-1) [facility] [id number] 00:00:00* Test Item Value Reference Range Interpretation Comme nts GLUCOSE (test code = 2217) 93 MG/DL BUN (test code = 2208) 10 MG/DL CREATININE (test code = 2214) 0.81 MG/DL eGFR AMER. (test cod e = 25587) 103 ML/MIN/1.73 eGFR NON- AMER. (test code = 02697) 89 ML/MIN/1.73 CALC BUN/CREAT (test code = [...] code = 2219) 22 U/L COMPREHENSIVE METABOLIC [id number] 00:00:00* Test Item Value Reference Range Interpretation Comme nts GLUCOSE (test code = 2217) 93 MG/DL BUN (test code = 2208) 10 MG/DL CREATININE (test code = 2214) 0.81 MG/DL eGFR AMER. (test cod e = 41504) 103 ML/MIN/1.73 eGFR NON- AMER. (test code = 72672) 89 ML/MIN/1.73 CALC BUN/CREAT (test code = [...] code = 2219) 22 U/L CBC W/AUTO [id number] 00:00:00* Test Item Value Reference Range Interpretation Comme nts WBC (test code = 1001) 11.6 K/UL [...] = 1013) 0.3 % IMMATURE GRANULOCYTES (test code = 1036) 0.4 % NUCLEATED RBCS (test code = 1065) 0.0 /100WBC'S PLATELET COUNT (test code = 1015) 418 K/UL ABSOLUTE NEUTROPHILS (test c ode = 1066) 8.76 K/UL ABSOLUTE LYMPHOCYTES (test c ode = 1067) 1.97 K/UL ABSOLUTE MONOCYTES (test cod e = 1068) 0.63 K/UL ABSOLUTE EOSINOPHILS (test c ode = 1040) 0.14 K/UL ABSOLUTE BASOPHILS (test cod e = 1069) 0.04 K/UL ABS IMMATURE GRANULOCYTES (t est code = 1020) 0.05 K/UL ABS NUCLEATED RBCS (test cod e = 44725) 0.00 K/UL CBC W/AUTO [id number] 00:00:00* Test Item Value Reference Range Interpretation Comme nts WBC (test code = 1001) 11.6 K/UL [...] = 1013) 0.3 % IMMATURE GRANULOCYTES (test code = 1036) 0.4 % NUCLEATED RBCS (test code = 1065) 0.0 /100WBC'S PLATELET COUNT (test code = 1015) 418 K/UL ABSOLUTE NEUTROPHILS (test c ode = 1066) 8.76 K/UL ABSOLUTE LYMPHOCYTES (test c ode = 1067) 1.97 K/UL ABSOLUTE MONOCYTES (test cod e = 1068) 0.63 K/UL ABSOLUTE EOSINOPHILS (test c ode = 1040) 0.14 K/UL ABSOLUTE BASOPHILS (test cod e = 1069) 0.04 K/UL ABS IMMATURE GRANULOCYTES (t est code = 1020) 0.05 K/UL ABS NUCLEATED RBCS (test cod e = 52402) 0.00 K/UL CBC W/AUTO [id number] 00:00:00* Test Item Value Reference Range Interpretation Comme nts WBC (test code = 1001) 11.6 K/UL [...] = 1013) 0.3 % IMMATURE GRANULOCYTES (test code = 1036) 0.4 % NUCLEATED RBCS (test code = 1065) 0.0 /100WBC'S PLATELET COUNT (test code = 1015) 418 K/UL ABSOLUTE NEUTROPHILS (test c ode = 1066) 8.76 K/UL ABSOLUTE LYMPHOCYTES (test c ode = 1067) 1.97 K/UL ABSOLUTE MONOCYTES (test cod e = 1068) 0.63 K/UL ABSOLUTE EOSINOPHILS (test c ode = 1040) 0.14 K/UL ABSOLUTE BASOPHILS (test cod e = 1069) 0.04 K/UL ABS IMMATURE GRANULOCYTES (t est code = 1020) 0.05 K/UL ABS NUCLEATED RBCS (test cod e = 78968) 0.00 K/UL LIPID [id number] 00:00:00* Test Item Value Reference Range Interpretation Comme nts CHOLESTEROL (test code = 2210) 328 MG/DL TRIGLYCERIDES (test code = 2232) 614 MG/DL HDL CHOLESTEROL (test code = 2220) 42 MG/DL CALC LDL CHOL (test code = 2237) (NOTE) MG/DL RISK RATIO LDL/HDL (test cod e = 2238) (NOTE) RATIO LIPID [id number] 00:00:00* Test Item Value Reference Range Interpretation Comme nts CHOLESTEROL (test code = 2210) 328 MG/DL TRIGLYCERIDES (test code = 2232) 614 MG/DL HDL CHOLESTEROL (test code = 2220) 42 MG/DL CALC LDL CHOL (test code = 2237) (NOTE) MG/DL RISK RATIO LDL/HDL (test cod e = 2238) (NOTE) RATIO [id number] 00:00:00* Test Item Value Reference Range Interpretation Comme nts TSH, THIRD GENERATION (test code = 2821) 4.310 UIU/ML [id number] 00:00:00* Test Item Value Reference Range Interpretation Comme nts TSH, THIRD GENERATION (test code = 2821) 4.310 UIU/ML [id number] 00:00:00* Test Item Value Reference Range Interpretation Comme nts TSH, THIRD GENERATION (test code = 2821) 4.310 UIU/ML HEMOGLOBIN [id number] 00:00:00* Test Item Value Reference Range Interpretation Comme nts HEMOGLOBIN A1c (test code = 51854) 5.4 % HEMOGLOBIN [id number] 00:00:00* Test Item Value Reference Range Interpretation Comme nts HEMOGLOBIN A1c (test code = 59621) 5.4 % HEMOGLOBIN [id number] 00:00:00* Test Item Value Reference Range Interpretation Comme nts HEMOGLOBIN A1c (test code = 56282) 5.4 % [id number] 00:00:00* Test Item Value Reference Range Interpretation Comme nts LITHIUM (test code = 2038) 0.63 MEQ/L [id number] 00:00:00* Test Item Value Reference Range Interpretation Comme nts LITHIUM (test code = 2038) 0.63 MEQ/L [id number] 00:00:00* Test Item Value Reference Range Interpretation Comme nts LITHIUM (test code = 2038) 0.63 MEQ/L COMPREHENSIVE METABOLIC [id number] 00:00:00* Test Item Value Reference Range Interpretation Comme nts GLUCOSE (test code = 2216) 93 MG/DL BUN (test code = 2208) 10 MG/DL CREATININE (test code = 2214) 0.81 MG/DL eGFR AMER. (test cod e = 32377) 103 ML/MIN/1.73 eGFR NON- AMER. (test code = 30393) 89 ML/MIN/1.73 CALC BUN/CREAT (test code = [...] code = 2219) 22 U/L COMPREHENSIVE METABOLIC [id number] 00:00:00* Test Item Value Reference Range Interpretation Comme nts GLUCOSE (test code = 2216) 93 MG/DL BUN (test code = 2208) 10 MG/DL CREATININE (test code = 2214) 0.81 MG/DL eGFR AMER. (test cod e = 97162) 103 ML/MIN/1.73 eGFR NON- AMER. (test code = 35596) 89 ML/MIN/1.73 CALC BUN/CREAT (test code = [...] code = 2219) 22 U/L CBC W/AUTO [id number] 00:00:00* Test Item Value Reference Range Interpretation Comme nts WBC (test code = 1001) 11.6 K/UL [...] = 1013) 0.3 % IMMATURE GRANULOCYTES (test code = 1036) 0.4 % NUCLEATED RBCS (test code = 1065) 0.0 /100WBC'S PLATELET COUNT (test code = 1015) 418 K/UL ABSOLUTE NEUTROPHILS (test c ode = 1066) 8.76 K/UL ABSOLUTE LYMPHOCYTES (test c ode = 1067) 1.97 K/UL ABSOLUTE MONOCYTES (test cod e = 1068) 0.63 K/UL ABSOLUTE EOSINOPHILS (test c ode = 1040) 0.14 K/UL ABSOLUTE BASOPHILS (test cod e = 1069) 0.04 K/UL ABS IMMATURE GRANULOCYTES (t est code = 1020) 0.05 K/UL ABS NUCLEATED RBCS (test cod e = 83978) 0.00 K/UL CBC W/AUTO [id number] 00:00:00* Test Item Value Reference Range Interpretation Comme nts WBC (test code = 1001) 11.6 K/UL [...] = 1013) 0.3 % IMMATURE GRANULOCYTES (test code = 1036) 0.4 % NUCLEATED RBCS (test code = 1065) 0.0 /100WBC'S PLATELET COUNT (test code = 1015) 418 K/UL ABSOLUTE NEUTROPHILS (test c ode = 1066) 8.76 K/UL ABSOLUTE LYMPHOCYTES (test c ode = 1067) 1.97 K/UL ABSOLUTE MONOCYTES (test cod e = 1068) 0.63 K/UL ABSOLUTE EOSINOPHILS (test c ode = 1040) 0.14 K/UL ABSOLUTE BASOPHILS (test cod e = 1069) 0.04 K/UL ABS IMMATURE GRANULOCYTES (t est code = 1020) 0.05 K/UL ABS NUCLEATED RBCS (test cod e = 91795) 0.00 K/UL CBC W/AUTO [id number] 00:00:00* Test Item Value Reference Range Interpretation Comme nts WBC (test code = 1001) 11.6 K/UL [...] = 1013) 0.3 % IMMATURE GRANULOCYTES (test code = 1036) 0.4 % NUCLEATED RBCS (test code = 1065) 0.0 /100WBC'S PLATELET COUNT (test code = 1015) 418 K/UL ABSOLUTE NEUTROPHILS (test c ode = 1066) 8.76 K/UL ABSOLUTE LYMPHOCYTES (test c ode = 1067) 1.97 K/UL ABSOLUTE MONOCYTES (test cod e = 1068) 0.63 K/UL ABSOLUTE EOSINOPHILS (test c ode = 1040) 0.14 K/UL ABSOLUTE BASOPHILS (test cod e = 1069) 0.04 K/UL ABS IMMATURE GRANULOCYTES (t est code = 1020) 0.05 K/UL ABS NUCLEATED RBCS (test cod e = 34965) 0.00 K/UL LIPID [id number] 00:00:00* Test Item Value Reference Range Interpretation Comme nts CHOLESTEROL (test code = 2210) 328 MG/DL TRIGLYCERIDES (test code = 2232) 614 MG/DL HDL CHOLESTEROL (test code = 2220) 42 MG/DL CALC LDL CHOL (test code = 2237) (NOTE) MG/DL RISK RATIO LDL/HDL (test cod e = 2238) (NOTE) RATIO LIPID [id number] 00:00:00* Test Item Value Reference Range Interpretation Comme nts CHOLESTEROL (test code = 2210) 328 MG/DL TRIGLYCERIDES (test code = 2232) 614 MG/DL HDL CHOLESTEROL (test code = 2220) 42 MG/DL CALC LDL CHOL (test code = 2237) (NOTE) MG/DL RISK RATIO LDL/HDL (test cod e = 2238) (NOTE) RATIO [id number] 00:00:00* Test Item Value Reference Range Interpretation Comme nts TSH, THIRD GENERATION (test code = 2821) 4.310 UIU/ML [id number] 00:00:00* Test Item Value Reference Range Interpretation Comme nts TSH, THIRD GENERATION (test code = 2821) 4.310 UIU/ML [id number] 00:00:00* Test Item Value Reference Range Interpretation Comme nts TSH, THIRD GENERATION (test code = 2821) 4.310 UIU/ML HEMOGLOBIN [id number] 00:00:00* Test Item Value Reference Range Interpretation Comme nts HEMOGLOBIN A1c (test code = 53158) 5.4 % HEMOGLOBIN [id number] 00:00:00* Test Item Value Reference Range Interpretation Comme nts HEMOGLOBIN A1c (test code = 07208) 5.4 % HEMOGLOBIN [id number] 00:00:00* Test Item Value Reference Range Interpretation Comme nts HEMOGLOBIN A1c (test code = 21465) 5.4 % [id number] 00:00:00* Test Item Value Reference Range Interpretation Comme nts LITHIUM (test code = 2039) 0.63 MEQ/L [id number] 00:00:00* Test Item Value Reference Range Interpretation Comme nts LITHIUM (test code = 2039) 0.63 MEQ/L [id number] 00:00:00* Test Item Value Reference Range Interpretation Comme nts LITHIUM (test code = 2039) 0.63 MEQ/L COMPREHENSIVE METABOLIC [id number] 00:00:00* Test Item Value Reference Range Interpretation Comme nts GLUCOSE (test code = 2217) 93 MG/DL BUN (test code = 2208) 10 MG/DL CREATININE (test code = 2214) 0.81 MG/DL eGFR AMER. (test cod e = 90038) 103 ML/MIN/1.73 eGFR NON- AMER. (test code = 72026) 89 ML/MIN/1.73 CALC BUN/CREAT (test code = [...] code = 2219) 22 U/L CBC W/AUTO [id number] 00:00:00* Test Item Value Reference Range Interpretation Comme nts WBC (test code = 1001) 11.6 K/UL [...] = 1013) 0.3 % IMMATURE GRANULOCYTES (test code = 1036) 0.4 % NUCLEATED RBCS (test code = 1065) 0.0 /100WBC'S PLATELET COUNT (test code = 1015) 418 K/UL ABSOLUTE NEUTROPHILS (test c ode = 1066) 8.76 K/UL ABSOLUTE LYMPHOCYTES (test c ode = 1067) 1.97 K/UL ABSOLUTE MONOCYTES (test cod e = 1068) 0.63 K/UL ABSOLUTE EOSINOPHILS (test c ode = 1040) 0.14 K/UL ABSOLUTE BASOPHILS (test cod e = 1069) 0.04 K/UL ABS IMMATURE GRANULOCYTES (t est code = 1020) 0.05 K/UL ABS NUCLEATED RBCS (test cod e = 92155) 0.00 K/UL CBC W/AUTO [id number] 00:00:00* Test Item Value Reference Range Interpretation Comme nts WBC (test code = 1001) 11.6 K/UL [...] = 1013) 0.3 % IMMATURE GRANULOCYTES (test code = 1036) 0.4 % NUCLEATED RBCS (test code = 1065) 0.0 /100WBC'S PLATELET COUNT (test code = 1015) 418 K/UL ABSOLUTE NEUTROPHILS (test c ode = 1066) 8.76 K/UL ABSOLUTE LYMPHOCYTES (test c ode = 1067) 1.97 K/UL ABSOLUTE MONOCYTES (test cod e = 1068) 0.63 K/UL ABSOLUTE EOSINOPHILS (test c ode = 1040) 0.14 K/UL ABSOLUTE BASOPHILS (test cod e = 1069) 0.04 K/UL ABS IMMATURE GRANULOCYTES (t est code = 1020) 0.05 K/UL ABS NUCLEATED RBCS (test cod e = 90421) 0.00 K/UL LIPID [id number] 00:00:00* Test Item Value Reference Range Interpretation Comme nts CHOLESTEROL (test code = 2210) 328 MG/DL TRIGLYCERIDES (test code = 2232) 614 MG/DL HDL CHOLESTEROL (test code = 2220) 42 MG/DL CALC LDL CHOL (test code = 2237) (NOTE) MG/DL RISK RATIO LDL/HDL (test cod e = 2238) (NOTE) RATIO [id number] 00:00:00* Test Item Value Reference Range Interpretation Comme nts TSH, THIRD GENERATION (test code = 2821) 4.310 UIU/ML [id number] 00:00:00* Test Item Value Reference Range Interpretation Comme nts TSH, THIRD GENERATION (test code = 2821) 4.310 UIU/ML HEMOGLOBIN [id number] 00:00:00* Test Item Value Reference Range Interpretation Comme nts HEMOGLOBIN A1c (test code = 36034) 5.4 % HEMOGLOBIN [id number] 00:00:00* Test Item Value Reference Range Interpretation Comme nts HEMOGLOBIN A1c (test code = 13068) 5.4 % [id number] 00:00:00* Test Item Value Reference Range Interpretation Comme nts LITHIUM (test code = 2038) 0.63 MEQ/L [id number] 00:00:00* Test Item Value Reference Range Interpretation Comme nts LITHIUM (test code = 2038) 0.63 MEQ/L COMPREHENSIVE METABOLIC [id number] 00:00:00* Test Item Value Reference Range Interpretation Comme nts GLUCOSE (test code = 7) 93 MG/DL BUN (test code = 2208) 10 MG/DL CREATININE (test code = 2214) 0.81 MG/DL eGFR AMER. (test cod e = 72782) 103 ML/MIN/1.73 eGFR NON- AMER. (test code = 62689) 89 ML/MIN/1.73 CALC BUN/CREAT (test code = [...] code = 2219) 22 U/L COMPREHENSIVE METABOLIC [id number] 00:00:00* Test Item Value Reference Range Interpretation Comme nts GLUCOSE (test code = 7) 93 MG/DL BUN (test code = 2208) 10 MG/DL CREATININE (test code = 2214) 0.81 MG/DL eGFR AMER. (test cod e = 62589) 103 ML/MIN/1.73 eGFR NON- AMER. (test code = 86757) 89 ML/MIN/1.73 CALC BUN/CREAT (test code = [...] code = 2219) 22 U/L CBC W/AUTO [id number] 00:00:00* Test Item Value Reference Range Interpretation Comme nts WBC (test code = 1001) 11.6 K/UL [...] = 1013) 0.3 % IMMATURE GRANULOCYTES (test code = 1036) 0.4 % NUCLEATED RBCS (test code = 1065) 0.0 /100WBC'S PLATELET COUNT (test code = 1015) 418 K/UL ABSOLUTE NEUTROPHILS (test c ode = 1066) 8.76 K/UL ABSOLUTE LYMPHOCYTES (test c ode = 1067) 1.97 K/UL ABSOLUTE MONOCYTES (test cod e = 1068) 0.63 K/UL ABSOLUTE EOSINOPHILS (test c ode = 1040) 0.14 K/UL ABSOLUTE BASOPHILS (test cod e = 1069) 0.04 K/UL ABS IMMATURE GRANULOCYTES (t est code = 1020) 0.05 K/UL ABS NUCLEATED RBCS (test cod e = 40446) 0.00 K/UL CBC W/AUTO [id number] 00:00:00* Test Item Value Reference Range Interpretation Comme nts WBC (test code = 1001) 11.6 K/UL [...] = 1013) 0.3 % IMMATURE GRANULOCYTES (test code = 1036) 0.4 % NUCLEATED RBCS (test code = 1065) 0.0 /100WBC'S PLATELET COUNT (test code = 1015) 418 K/UL ABSOLUTE NEUTROPHILS (test c ode = 1066) 8.76 K/UL ABSOLUTE LYMPHOCYTES (test c ode = 1067) 1.97 K/UL ABSOLUTE MONOCYTES (test cod e = 1068) 0.63 K/UL ABSOLUTE EOSINOPHILS (test c ode = 1040) 0.14 K/UL ABSOLUTE BASOPHILS (test cod e = 1069) 0.04 K/UL ABS IMMATURE GRANULOCYTES (t est code = 1020) 0.05 K/UL ABS NUCLEATED RBCS (test cod e = 24181) 0.00 K/UL CBC W/AUTO [id number] 00:00:00* Test Item Value Reference Range Interpretation Comme nts WBC (test code = 1001) 11.6 K/UL [...] = 1013) 0.3 % IMMATURE GRANULOCYTES (test code = 1036) 0.4 % NUCLEATED RBCS (test code = 1065) 0.0 /100WBC'S PLATELET COUNT (test code = 1015) 418 K/UL ABSOLUTE NEUTROPHILS (test c ode = 1066) 8.76 K/UL ABSOLUTE LYMPHOCYTES (test c ode = 1067) 1.97 K/UL ABSOLUTE MONOCYTES (test cod e = 1068) 0.63 K/UL ABSOLUTE EOSINOPHILS (test c ode = 1040) 0.14 K/UL ABSOLUTE BASOPHILS (test cod e = 1069) 0.04 K/UL ABS IMMATURE GRANULOCYTES (t est code = 1020) 0.05 K/UL ABS NUCLEATED RBCS (test cod e = 56778) 0.00 K/UL LIPID [id number] 00:00:00* Test Item Value Reference Range Interpretation Comme nts CHOLESTEROL (test code = 2210) 328 MG/DL TRIGLYCERIDES (test code = 2232) 614 MG/DL HDL CHOLESTEROL (test code = 2220) 42 MG/DL CALC LDL CHOL (test code = 2237) (NOTE) MG/DL RISK RATIO LDL/HDL (test cod e = 2238) (NOTE) RATIO LIPID [id number] 00:00:00* Test Item Value Reference Range Interpretation Comme nts CHOLESTEROL (test code = 2210) 328 MG/DL TRIGLYCERIDES (test code = 2232) 614 MG/DL HDL CHOLESTEROL (test code = 2220) 42 MG/DL CALC LDL CHOL (test code = 2237) (NOTE) MG/DL RISK RATIO LDL/HDL (test cod e = 2238) (NOTE) RATIO [id number] 00:00:00* Test Item Value Reference Range Interpretation Comme nts TSH, THIRD GENERATION (test code = 2821) 4.310 UIU/ML [id number] 00:00:00* Test Item Value Reference Range Interpretation Comme nts TSH, THIRD GENERATION (test code = 2821) 4.310 UIU/ML [id number] 00:00:00* Test Item Value Reference Range Interpretation Comme nts TSH, THIRD GENERATION (test code = 2821) 4.310 UIU/ML HEMOGLOBIN [id number] 00:00:00* Test Item Value Reference Range Interpretation Comme nts HEMOGLOBIN A1c (test code = 63171) 5.4 % HEMOGLOBIN [id number] 00:00:00* Test Item Value Reference Range Interpretation Comme nts HEMOGLOBIN A1c (test code = 23169) 5.4 % HEMOGLOBIN [id number] 00:00:00* Test Item Value Reference Range Interpretation Comme nts HEMOGLOBIN A1c (test code = 35375) 5.4 % [id number] 00:00:00* Test Item Value Reference Range Interpretation Comme nts LITHIUM (test code = 2039) 0.63 MEQ/L [id number] 00:00:00* Test Item Value Reference Range Interpretation Comme nts LITHIUM (test code = 2039) 0.63 MEQ/L [id number] 00:00:00* Test Item Value Reference Range Interpretation Comme nts LITHIUM (test code = 2039) 0.63 MEQ/L COMPREHENSIVE METABOLIC [id number] 00:00:00* Test Item Value Reference Range Interpretation Comme nts GLUCOSE (test code = 7) 93 MG/DL BUN (test code = 2208) 10 MG/DL CREATININE (test code = 2214) 0.81 MG/DL eGFR AMER. (test cod e = 97411) 103 ML/MIN/1.73 eGFR NON- AMER. (test code = 00914) 89 ML/MIN/1.73 CALC BUN/CREAT (test code = [...] code = 2219) 22 U/L COMPREHENSIVE METABOLIC [id number] 00:00:00* Test Item Value Reference Range Interpretation Comme nts GLUCOSE (test code = 2217) 93 MG/DL BUN (test code = 2208) 10 MG/DL CREATININE (test code = 2214) 0.81 MG/DL eGFR AMER. (test cod e = 92710) 103 ML/MIN/1.73 eGFR NON- AMER. (test code = 32861) 89 ML/MIN/1.73 CALC BUN/CREAT (test code = [...] code = 2219) 22 U/L CBC W/AUTO [id number] 00:00:00* Test Item Value Reference Range Interpretation Comme nts WBC (test code = 1001) 11.6 K/UL [...] = 1013) 0.3 % IMMATURE GRANULOCYTES (test code = 1036) 0.4 % NUCLEATED RBCS (test code = 1065) 0.0 /100WBC'S PLATELET COUNT (test code = 1015) 418 K/UL ABSOLUTE NEUTROPHILS (test c ode = 1066) 8.76 K/UL ABSOLUTE LYMPHOCYTES (test c ode = 1067) 1.97 K/UL ABSOLUTE MONOCYTES (test cod e = 1068) 0.63 K/UL ABSOLUTE EOSINOPHILS (test c ode = 1040) 0.14 K/UL ABSOLUTE BASOPHILS (test cod e = 1069) 0.04 K/UL ABS IMMATURE GRANULOCYTES (t est code = 1020) 0.05 K/UL ABS NUCLEATED RBCS (test cod e = 59771) 0.00 K/UL CBC W/AUTO [id number] 00:00:00* Test Item Value Reference Range Interpretation Comme nts WBC (test code = 1001) 11.6 K/UL [...] = 1013) 0.3 % IMMATURE GRANULOCYTES (test code = 1036) 0.4 % NUCLEATED RBCS (test code = 1065) 0.0 /100WBC'S PLATELET COUNT (test code = 1015) 418 K/UL ABSOLUTE NEUTROPHILS (test c ode = 1066) 8.76 K/UL ABSOLUTE LYMPHOCYTES (test c ode = 1067) 1.97 K/UL ABSOLUTE MONOCYTES (test cod e = 1068) 0.63 K/UL ABSOLUTE EOSINOPHILS (test c ode = 1040) 0.14 K/UL ABSOLUTE BASOPHILS (test cod e = 1069) 0.04 K/UL ABS IMMATURE GRANULOCYTES (t est code = 1020) 0.05 K/UL ABS NUCLEATED RBCS (test cod e = 95285) 0.00 K/UL CBC W/AUTO [id number] 00:00:00* Test Item Value Reference Range Interpretation Comme nts WBC (test code = 1001) 11.6 K/UL [...] = 1013) 0.3 % IMMATURE GRANULOCYTES (test code = 1036) 0.4 % NUCLEATED RBCS (test code = 1065) 0.0 /100WBC'S PLATELET COUNT (test code = 1015) 418 K/UL ABSOLUTE NEUTROPHILS (test c ode = 1066) 8.76 K/UL ABSOLUTE LYMPHOCYTES (test c ode = 1067) 1.97 K/UL ABSOLUTE MONOCYTES (test cod e = 1068) 0.63 K/UL ABSOLUTE EOSINOPHILS (test c ode = 1040) 0.14 K/UL ABSOLUTE BASOPHILS (test cod e = 1069) 0.04 K/UL ABS IMMATURE GRANULOCYTES (t est code = 1020) 0.05 K/UL ABS NUCLEATED RBCS (test cod e = 74461) 0.00 K/UL LIPID [id number] 00:00:00* Test Item Value Reference Range Interpretation Comme nts CHOLESTEROL (test code = 2210) 328 MG/DL TRIGLYCERIDES (test code = 2232) 614 MG/DL HDL CHOLESTEROL (test code = 2220) 42 MG/DL CALC LDL CHOL (test code = 2237) (NOTE) MG/DL RISK RATIO LDL/HDL (test cod e = 2238) (NOTE) RATIO LIPID [id number] 00:00:00* Test Item Value Reference Range Interpretation Comme nts CHOLESTEROL (test code = 2210) 328 MG/DL TRIGLYCERIDES (test code = 2232) 614 MG/DL HDL CHOLESTEROL (test code = 2220) 42 MG/DL CALC LDL CHOL (test code = 2237) (NOTE) MG/DL RISK RATIO LDL/HDL (test cod e = 2238) (NOTE) RATIO [id number] 00:00:00* Test Item Value Reference Range Interpretation Comme nts TSH, THIRD GENERATION (test code = 2821) 4.310 UIU/ML [id number] 00:00:00* Test Item Value Reference Range Interpretation Comme nts TSH, THIRD GENERATION (test code = 2821) 4.310 UIU/ML [id number] 00:00:00* Test Item Value Reference Range Interpretation Comme nts TSH, THIRD GENERATION (test code = 2821) 4.310 UIU/ML HEMOGLOBIN [id number] 00:00:00* Test Item Value Reference Range Interpretation Comme nts HEMOGLOBIN A1c (test code = 12580) 5.4 % HEMOGLOBIN [id number] 00:00:00* Test Item Value Reference Range Interpretation Comme nts HEMOGLOBIN A1c (test code = 05807) 5.4 % HEMOGLOBIN [id number] 00:00:00* Test Item Value Reference Range Interpretation Comme nts HEMOGLOBIN A1c (test code = 51103) 5.4 % [id number] 00:00:00* Test Item Value Reference Range Interpretation Comme nts LITHIUM (test code = 2039) 0.63 MEQ/L [id number] 00:00:00* Test Item Value Reference Range Interpretation Comme nts LITHIUM (test code = 2039) 0.63 MEQ/L [id number] 00:00:00* Test Item Value Reference Range Interpretation Comme nts LITHIUM (test code = 2039) 0.63 MEQ/L COMPREHENSIVE METABOLIC [id number] 00:00:00* Test Item Value Reference Range Interpretation Comme nts GLUCOSE (test code = 2217) 93 MG/DL BUN (test code = 2208) 10 MG/DL CREATININE (test code = 2214) 0.81 MG/DL eGFR AMER. (test cod e = 57296) 103 ML/MIN/1.73 eGFR NON- AMER. (test code = 48006) 89 ML/MIN/1.73 CALC BUN/CREAT (test code = [...] code = 2219) 22 U/L COMPREHENSIVE METABOLIC [id number] 00:00:00* Test Item Value Reference Range Interpretation Comme nts GLUCOSE (test code = 2217) 93 MG/DL BUN (test code = 2208) 10 MG/DL CREATININE (test code = 2214) 0.81 MG/DL eGFR AMER. (test cod e = 88838) 103 ML/MIN/1.73 eGFR NON- AMER. (test code = 66416) 89 ML/MIN/1.73 CALC BUN/CREAT (test code = [...] code = 2219) 22 U/L CBC W/AUTO [id number] 00:00:00* Test Item Value Reference Range Interpretation Comme nts WBC (test code = 1001) 11.6 K/UL [...] = 1013) 0.3 % IMMATURE GRANULOCYTES (test code = 1036) 0.4 % NUCLEATED RBCS (test code = 1065) 0.0 /100WBC'S PLATELET COUNT (test code = 1015) 418 K/UL ABSOLUTE NEUTROPHILS (test c ode = 1066) 8.76 K/UL ABSOLUTE LYMPHOCYTES (test c ode = 1067) 1.97 K/UL ABSOLUTE MONOCYTES (test cod e = 1068) 0.63 K/UL ABSOLUTE EOSINOPHILS (test c ode = 1040) 0.14 K/UL ABSOLUTE BASOPHILS (test cod e = 1069) 0.04 K/UL ABS IMMATURE GRANULOCYTES (t est code = 1020) 0.05 K/UL ABS NUCLEATED RBCS (test cod e = 16001) 0.00 K/UL CBC W/AUTO [id number] 00:00:00* Test Item Value Reference Range Interpretation Comme nts WBC (test code = 1001) 11.6 K/UL [...] = 1013) 0.3 % IMMATURE GRANULOCYTES (test code = 1036) 0.4 % NUCLEATED RBCS (test code = 1065) 0.0 /100WBC'S PLATELET COUNT (test code = 1015) 418 K/UL ABSOLUTE NEUTROPHILS (test c ode = 1066) 8.76 K/UL ABSOLUTE LYMPHOCYTES (test c ode = 1067) 1.97 K/UL ABSOLUTE MONOCYTES (test cod e = 1068) 0.63 K/UL ABSOLUTE EOSINOPHILS (test c ode = 1040) 0.14 K/UL ABSOLUTE BASOPHILS (test cod e = 1069) 0.04 K/UL ABS IMMATURE GRANULOCYTES (t est code = 1020) 0.05 K/UL ABS NUCLEATED RBCS (test cod e = 52959) 0.00 K/UL CBC W/AUTO [id number] 00:00:00* Test Item Value Reference Range Interpretation Comme nts WBC (test code = 1001) 11.6 K/UL [...] = 1013) 0.3 % IMMATURE GRANULOCYTES (test code = 1036) 0.4 % NUCLEATED RBCS (test code = 1065) 0.0 /100WBC'S PLATELET COUNT (test code = 1015) 418 K/UL ABSOLUTE NEUTROPHILS (test c ode = 1066) 8.76 K/UL ABSOLUTE LYMPHOCYTES (test c ode = 1067) 1.97 K/UL ABSOLUTE MONOCYTES (test cod e = 1068) 0.63 K/UL ABSOLUTE EOSINOPHILS (test c ode = 1040) 0.14 K/UL ABSOLUTE BASOPHILS (test cod e = 1069) 0.04 K/UL ABS IMMATURE GRANULOCYTES (t est code = 1020) 0.05 K/UL ABS NUCLEATED RBCS (test cod e = 42214) 0.00 K/UL LIPID [id number] 00:00:00* Test Item Value Reference Range Interpretation Comme nts CHOLESTEROL (test code = 2210) 328 MG/DL TRIGLYCERIDES (test code = 2232) 614 MG/DL HDL CHOLESTEROL (test code = 2220) 42 MG/DL CALC LDL CHOL (test code = 2237) (NOTE) MG/DL RISK RATIO LDL/HDL (test cod e = 2238) (NOTE) RATIO LIPID [id number] 00:00:00* Test Item Value Reference Range Interpretation Comme nts CHOLESTEROL (test code = 2210) 328 MG/DL TRIGLYCERIDES (test code = 2232) 614 MG/DL HDL CHOLESTEROL (test code = 2220) 42 MG/DL CALC LDL CHOL (test code = 2237) (NOTE) MG/DL RISK RATIO LDL/HDL (test cod e = 2238) (NOTE) RATIO [id number] 00:00:00* Test Item Value Reference Range Interpretation Comme nts TSH, THIRD GENERATION (test code = 2821) 4.310 UIU/ML [id number] 00:00:00* Test Item Value Reference Range Interpretation Comme nts TSH, THIRD GENERATION (test code = 2821) 4.310 UIU/ML [id number] 00:00:00* Test Item Value Reference Range Interpretation Comme nts TSH, THIRD GENERATION (test code = 2821) 4.310 UIU/ML HEMOGLOBIN [id number] 00:00:00* Test Item Value Reference Range Interpretation Comme nts HEMOGLOBIN A1c (test code = 53473) 5.4 % HEMOGLOBIN [id number] 00:00:00* Test Item Value Reference Range Interpretation Comme nts HEMOGLOBIN A1c (test code = 04075) 5.4 % HEMOGLOBIN [id number] 00:00:00* Test Item Value Reference Range Interpretation Comme nts HEMOGLOBIN A1c (test code = 35711) 5.4 % [id number] 00:00:00* Test Item Value Reference Range Interpretation Comme nts LITHIUM (test code = 2038) 0.63 MEQ/L [id number] 00:00:00* Test Item Value Reference Range Interpretation Comme nts LITHIUM (test code = 2038) 0.63 MEQ/L [id number] 00:00:00* Test Item Value Reference Range Interpretation Comme nts LITHIUM (test code = 2038) 0.63 MEQ/L COMPREHENSIVE METABOLIC [id number] 00:00:00* Test Item Value Reference Range Interpretation Comme nts GLUCOSE (test code = 7) 93 MG/DL BUN (test code = 2208) 10 MG/DL CREATININE (test code = 2214) 0.81 MG/DL eGFR AMER. (test cod e = 21962) 103 ML/MIN/1.73 eGFR NON- AMER. (test code = 19246) 89 ML/MIN/1.73 CALC BUN/CREAT (test code = [...] code = 2219) 22 U/L COMPREHENSIVE METABOLIC [id number] 00:00:00* Test Item Value Reference Range Interpretation Comme nts GLUCOSE (test code = 2217) 93 MG/DL BUN (test code = 2208) 10 MG/DL CREATININE (test code = 2214) 0.81 MG/DL eGFR AMER. (test cod e = 92537) 103 ML/MIN/1.73 eGFR NON- AMER. (test code = 32058) 89 ML/MIN/1.73 CALC BUN/CREAT (test code = [...] code = 2219) 22 U/L CBC W/AUTO [id number] 00:00:00* Test Item Value Reference Range Interpretation Comme nts WBC (test code = 1001) 11.6 K/UL [...] = 1013) 0.3 % IMMATURE GRANULOCYTES (test code = 1036) 0.4 % NUCLEATED RBCS (test code = 1065) 0.0 /100WBC'S PLATELET COUNT (test code = 1015) 418 K/UL ABSOLUTE NEUTROPHILS (test c ode = 1066) 8.76 K/UL ABSOLUTE LYMPHOCYTES (test c ode = 1067) 1.97 K/UL ABSOLUTE MONOCYTES (test cod e = 1068) 0.63 K/UL ABSOLUTE EOSINOPHILS (test c ode = 1040) 0.14 K/UL ABSOLUTE BASOPHILS (test cod e = 1069) 0.04 K/UL ABS IMMATURE GRANULOCYTES (t est code = 1020) 0.05 K/UL ABS NUCLEATED RBCS (test cod e = 69565) 0.00 K/UL CBC W/AUTO [id number] 00:00:00* Test Item Value Reference Range Interpretation Comme nts WBC (test code = 1001) 11.6 K/UL [...] = 1013) 0.3 % IMMATURE GRANULOCYTES (test code = 1036) 0.4 % NUCLEATED RBCS (test code = 1065) 0.0 /100WBC'S PLATELET COUNT (test code = 1015) 418 K/UL ABSOLUTE NEUTROPHILS (test c ode = 1066) 8.76 K/UL ABSOLUTE LYMPHOCYTES (test c ode = 1067) 1.97 K/UL ABSOLUTE MONOCYTES (test cod e = 1068) 0.63 K/UL ABSOLUTE EOSINOPHILS (test c ode = 1040) 0.14 K/UL ABSOLUTE BASOPHILS (test cod e = 1069) 0.04 K/UL ABS IMMATURE GRANULOCYTES (t est code = 1020) 0.05 K/UL ABS NUCLEATED RBCS (test cod e = 78210) 0.00 K/UL CBC W/AUTO [id number] 00:00:00* Test Item Value Reference Range Interpretation Comme nts WBC (test code = 1001) 11.6 K/UL [...] = 1013) 0.3 % IMMATURE GRANULOCYTES (test code = 1036) 0.4 % NUCLEATED RBCS (test code = 1065) 0.0 /100WBC'S PLATELET COUNT (test code = 1015) 418 K/UL ABSOLUTE NEUTROPHILS (test c ode = 1066) 8.76 K/UL ABSOLUTE LYMPHOCYTES (test c ode = 1067) 1.97 K/UL ABSOLUTE MONOCYTES (test cod e = 1068) 0.63 K/UL ABSOLUTE EOSINOPHILS (test c ode = 1040) 0.14 K/UL ABSOLUTE BASOPHILS (test cod e = 1069) 0.04 K/UL ABS IMMATURE GRANULOCYTES (t est code = 1020) 0.05 K/UL ABS NUCLEATED RBCS (test cod e = 69989) 0.00 K/UL LIPID [id number] 00:00:00* Test Item Value Reference Range Interpretation Comme nts CHOLESTEROL (test code = 2210) 328 MG/DL TRIGLYCERIDES (test code = 2232) 614 MG/DL HDL CHOLESTEROL (test code = 2220) 42 MG/DL CALC LDL CHOL (test code = 2237) (NOTE) MG/DL RISK RATIO LDL/HDL (test cod e = 2238) (NOTE) RATIO LIPID [id number] 00:00:00* Test Item Value Reference Range Interpretation Comme nts CHOLESTEROL (test code = 2210) 328 MG/DL TRIGLYCERIDES (test code = 2232) 614 MG/DL HDL CHOLESTEROL (test code = 2220) 42 MG/DL CALC LDL CHOL (test code = 2237) (NOTE) MG/DL RISK RATIO LDL/HDL (test cod e = 2238) (NOTE) RATIO [id number] 00:00:00* Test Item Value Reference Range Interpretation Comme nts TSH, THIRD GENERATION (test code = 2821) 4.310 UIU/ML [id number] 00:00:00* Test Item Value Reference Range Interpretation Comme nts TSH, THIRD GENERATION (test code = 2821) 4.310 UIU/ML [id number] 00:00:00* Test Item Value Reference Range Interpretation Comme nts TSH, THIRD GENERATION (test code = 2821) 4.310 UIU/ML HEMOGLOBIN [id number] 00:00:00* Test Item Value Reference Range Interpretation Comme nts HEMOGLOBIN A1c (test code = 99184) 5.4 % HEMOGLOBIN [id number] 00:00:00* Test Item Value Reference Range Interpretation Comme nts HEMOGLOBIN A1c (test code = 48213) 5.4 % HEMOGLOBIN [id number] 00:00:00* Test Item Value Reference Range Interpretation Comme nts HEMOGLOBIN A1c (test code = 72350) 5.4 % [id number] 00:00:00* Test Item Value Reference Range Interpretation Comme nts LITHIUM (test code = 2039) 0.63 MEQ/L [id number] 00:00:00* Test Item Value Reference Range Interpretation Comme nts LITHIUM (test code = 2039) 0.63 MEQ/L [id number] 00:00:00* Test Item Value Reference Range Interpretation Comme nts LITHIUM (test code = 2039) 0.63 MEQ/L COMPREHENSIVE METABOLIC [id number] 00:00:00* Test Item Value Reference Range Interpretation Comme nts GLUCOSE (test code = 2217) 93 MG/DL BUN (test code = 2208) 10 MG/DL CREATININE (test code = 2214) 0.81 MG/DL eGFR AMER. (test cod e = 36454) 103 ML/MIN/1.73 eGFR NON- AMER. (test code = 11852) 89 ML/MIN/1.73 CALC BUN/CREAT (test code = [...] code = 2219) 22 U/L COMPREHENSIVE METABOLIC [id number] 00:00:00* Test Item Value Reference Range Interpretation Comme nts GLUCOSE (test code = 2217) 93 MG/DL BUN (test code = 2208) 10 MG/DL CREATININE (test code = 2214) 0.81 MG/DL eGFR AMER. (test cod e = 79513) 103 ML/MIN/1.73 eGFR NON- AMER. (test code = 56576) 89 ML/MIN/1.73 CALC BUN/CREAT (test code = [...] code = 2219) 22 U/L CBC W/AUTO [id number] 00:00:00* Test Item Value Reference Range Interpretation Comme nts WBC (test code = 1001) 11.6 K/UL [...] = 1013) 0.3 % IMMATURE GRANULOCYTES (test code = 1036) 0.4 % NUCLEATED RBCS (test code = 1065) 0.0 /100WBC'S PLATELET COUNT (test code = 1015) 418 K/UL ABSOLUTE NEUTROPHILS (test c ode = 1066) 8.76 K/UL ABSOLUTE LYMPHOCYTES (test c ode = 1067) 1.97 K/UL ABSOLUTE MONOCYTES (test cod e = 1068) 0.63 K/UL ABSOLUTE EOSINOPHILS (test c ode = 1040) 0.14 K/UL ABSOLUTE BASOPHILS (test cod e = 1069) 0.04 K/UL ABS IMMATURE GRANULOCYTES (t est code = 1020) 0.05 K/UL ABS NUCLEATED RBCS (test cod e = 72294) 0.00 K/UL CBC W/AUTO [id number] 00:00:00* Test Item Value Reference Range Interpretation Comme nts WBC (test code = 1001) 11.6 K/UL [...] = 1013) 0.3 % IMMATURE GRANULOCYTES (test code = 1036) 0.4 % NUCLEATED RBCS (test code = 1065) 0.0 /100WBC'S PLATELET COUNT (test code = 1015) 418 K/UL ABSOLUTE NEUTROPHILS (test c ode = 1066) 8.76 K/UL ABSOLUTE LYMPHOCYTES (test c ode = 1067) 1.97 K/UL ABSOLUTE MONOCYTES (test cod e = 1068) 0.63 K/UL ABSOLUTE EOSINOPHILS (test c ode = 1040) 0.14 K/UL ABSOLUTE BASOPHILS (test cod e = 1069) 0.04 K/UL ABS IMMATURE GRANULOCYTES (t est code = 1020) 0.05 K/UL ABS NUCLEATED RBCS (test cod e = 25399) 0.00 K/UL CBC W/AUTO [id number] 00:00:00* Test Item Value Reference Range Interpretation Comme nts WBC (test code = 1001) 11.6 K/UL [...] = 1013) 0.3 % IMMATURE GRANULOCYTES (test code = 1036) 0.4 % NUCLEATED RBCS (test code = 1065) 0.0 /100WBC'S PLATELET COUNT (test code = 1015) 418 K/UL ABSOLUTE NEUTROPHILS (test c ode = 1066) 8.76 K/UL ABSOLUTE LYMPHOCYTES (test c ode = 1067) 1.97 K/UL ABSOLUTE MONOCYTES (test cod e = 1068) 0.63 K/UL ABSOLUTE EOSINOPHILS (test c ode = 1040) 0.14 K/UL ABSOLUTE BASOPHILS (test cod e = 1069) 0.04 K/UL ABS IMMATURE GRANULOCYTES (t est code = 1020) 0.05 K/UL ABS NUCLEATED RBCS (test cod e = 69291) 0.00 K/UL LIPID [id number] 00:00:00* Test Item Value Reference Range Interpretation Comme nts CHOLESTEROL (test code = 2210) 328 MG/DL TRIGLYCERIDES (test code = 2232) 614 MG/DL HDL CHOLESTEROL (test code = 2220) 42 MG/DL CALC LDL CHOL (test code = 2237) (NOTE) MG/DL RISK RATIO LDL/HDL (test cod e = 2238) (NOTE) RATIO LIPID [id number] 00:00:00* Test Item Value Reference Range Interpretation Comme nts CHOLESTEROL (test code = 2210) 328 MG/DL TRIGLYCERIDES (test code = 2232) 614 MG/DL HDL CHOLESTEROL (test code = 2220) 42 MG/DL CALC LDL CHOL (test code = 2237) (NOTE) MG/DL RISK RATIO LDL/HDL (test cod e = 2238) (NOTE) RATIO [id number] 00:00:00* Test Item Value Reference Range Interpretation Comme nts TSH, THIRD GENERATION (test code = 2821) 4.310 UIU/ML [id number] 00:00:00* Test Item Value Reference Range Interpretation Comme nts TSH, THIRD GENERATION (test code = 2821) 4.310 UIU/ML [id number] 00:00:00* Test Item Value Reference Range Interpretation Comme nts TSH, THIRD GENERATION (test code = 2821) 4.310 UIU/ML HEMOGLOBIN [id number] 00:00:00* Test Item Value Reference Range Interpretation Comme nts HEMOGLOBIN A1c (test code = 92849) 5.4 % HEMOGLOBIN [id number] 00:00:00* Test Item Value Reference Range Interpretation Comme nts HEMOGLOBIN A1c (test code = 58800) 5.4 % HEMOGLOBIN [id number] 00:00:00* Test Item Value Reference Range Interpretation Comme nts HEMOGLOBIN A1c (test code = 80513) 5.4 % [id number] 00:00:00* Test Item Value Reference Range Interpretation Comme nts LITHIUM (test code = 2039) 0.63 MEQ/L [id number] 00:00:00* Test Item Value Reference Range Interpretation Comme nts LITHIUM (test code = 2039) 0.63 MEQ/L [id number] 00:00:00* Test Item Value Reference Range Interpretation Comme nts LITHIUM (test code = 2039) 0.63 MEQ/L COMPREHENSIVE METABOLIC [id number] 00:00:00* Test Item Value Reference Range Interpretation Comme nts GLUCOSE (test code = 2217) 93 MG/DL BUN (test code = 2208) 10 MG/DL CREATININE (test code = 2214) 0.81 MG/DL eGFR AMER. (test cod e = 49144) 103 ML/MIN/1.73 eGFR NON- AMER. (test code = 29529) 89 ML/MIN/1.73 CALC BUN/CREAT (test code = [...] code = 2219) 22 U/L COMPREHENSIVE METABOLIC [id number] 00:00:00* Test Item Value Reference Range Interpretation Comme nts GLUCOSE (test code = 2217) 93 MG/DL BUN (test code = 2208) 10 MG/DL CREATININE (test code = 2214) 0.81 MG/DL eGFR AMER. (test cod e = 61826) 103 ML/MIN/1.73 eGFR NON- AMER. (test code = 13444) 89 ML/MIN/1.73 CALC BUN/CREAT (test code = [...] code = 2219) 22 U/L CBC W/AUTO [id number] 00:00:00* Test Item Value Reference Range Interpretation Comme nts WBC (test code = 1001) 11.6 K/UL [...] = 1013) 0.3 % IMMATURE GRANULOCYTES (test code = 1036) 0.4 % NUCLEATED RBCS (test code = 1065) 0.0 /100WBC'S PLATELET COUNT (test code = 1015) 418 K/UL ABSOLUTE NEUTROPHILS (test c ode = 1066) 8.76 K/UL ABSOLUTE LYMPHOCYTES (test c ode = 1067) 1.97 K/UL ABSOLUTE MONOCYTES (test cod e = 1068) 0.63 K/UL ABSOLUTE EOSINOPHILS (test c ode = 1040) 0.14 K/UL ABSOLUTE BASOPHILS (test cod e = 1069) 0.04 K/UL ABS IMMATURE GRANULOCYTES (t est code = 1020) 0.05 K/UL ABS NUCLEATED RBCS (test cod e = 57291) 0.00 K/UL CBC W/AUTO [id number] 00:00:00* Test Item Value Reference Range Interpretation Comme nts WBC (test code = 1001) 11.6 K/UL [...] = 1013) 0.3 % IMMATURE GRANULOCYTES (test code = 1036) 0.4 % NUCLEATED RBCS (test code = 1065) 0.0 /100WBC'S PLATELET COUNT (test code = 1015) 418 K/UL ABSOLUTE NEUTROPHILS (test c ode = 1066) 8.76 K/UL ABSOLUTE LYMPHOCYTES (test c ode = 1067) 1.97 K/UL ABSOLUTE MONOCYTES (test cod e = 1068) 0.63 K/UL ABSOLUTE EOSINOPHILS (test c ode = 1040) 0.14 K/UL ABSOLUTE BASOPHILS (test cod e = 1069) 0.04 K/UL ABS IMMATURE GRANULOCYTES (t est code = 1020) 0.05 K/UL ABS NUCLEATED RBCS (test cod e = 10629) 0.00 K/UL CBC W/AUTO [id number] 00:00:00* Test Item Value Reference Range Interpretation Comme nts WBC (test code = 1001) 11.6 K/UL [...] = 1013) 0.3 % IMMATURE GRANULOCYTES (test code = 1036) 0.4 % NUCLEATED RBCS (test code = 1065) 0.0 /100WBC'S PLATELET COUNT (test code = 1015) 418 K/UL ABSOLUTE NEUTROPHILS (test c ode = 1066) 8.76 K/UL ABSOLUTE LYMPHOCYTES (test c ode = 1067) 1.97 K/UL ABSOLUTE MONOCYTES (test cod e = 1068) 0.63 K/UL ABSOLUTE EOSINOPHILS (test c ode = 1040) 0.14 K/UL ABSOLUTE BASOPHILS (test cod e = 1069) 0.04 K/UL ABS IMMATURE GRANULOCYTES (t est code = 1020) 0.05 K/UL ABS NUCLEATED RBCS (test cod e = 81347) 0.00 K/UL LIPID [id number] 00:00:00* Test Item Value Reference Range Interpretation Comme nts CHOLESTEROL (test code = 2210) 328 MG/DL TRIGLYCERIDES (test code = 2232) 614 MG/DL HDL CHOLESTEROL (test code = 2220) 42 MG/DL CALC LDL CHOL (test code = 2237) (NOTE) MG/DL RISK RATIO LDL/HDL (test cod e = 2238) (NOTE) RATIO LIPID [id number] 00:00:00* Test Item Value Reference Range Interpretation Comme nts CHOLESTEROL (test code = 2210) 328 MG/DL TRIGLYCERIDES (test code = 2232) 614 MG/DL HDL CHOLESTEROL (test code = 2220) 42 MG/DL CALC LDL CHOL (test code = 2237) (NOTE) MG/DL RISK RATIO LDL/HDL (test cod e = 2238) (NOTE) RATIO [id number] 00:00:00* Test Item Value Reference Range Interpretation Comme nts TSH, THIRD GENERATION (test code = 2821) 4.310 UIU/ML [id number] 00:00:00* Test Item Value Reference Range Interpretation Comme nts TSH, THIRD GENERATION (test code = 2821) 4.310 UIU/ML [id number] 00:00:00* Test Item Value Reference Range Interpretation Comme nts TSH, THIRD GENERATION (test code = 2821) 4.310 UIU/ML HEMOGLOBIN [id number] 00:00:00* Test Item Value Reference Range Interpretation Comme nts HEMOGLOBIN A1c (test code = 58840) 5.4 % HEMOGLOBIN [id number] 00:00:00* Test Item Value Reference Range Interpretation Comme nts HEMOGLOBIN A1c (test code = 35596) 5.4 % HEMOGLOBIN [id number] 00:00:00* Test Item Value Reference Range Interpretation Comme nts HEMOGLOBIN A1c (test code = 88748) 5.4 % [id number] 00:00:00* Test Item Value Reference Range Interpretation Comme nts LITHIUM (test code = 2038) 0.63 MEQ/L [id number] 00:00:00* Test Item Value Reference Range Interpretation Comme nts LITHIUM (test code = 2038) 0.63 MEQ/L [id number] 00:00:00* Test Item Value Reference Range Interpretation Comme nts LITHIUM (test code = 2038) 0.63 MEQ/L Notes Date/Time Note Provider Source 2022-10-30 06:42:00 [id number] [facility] [address] [place] [address] [place] [address] PATIENT NAME: CYNDIE PENN ADMIT DATE: 10/17/22ACCOUNT NO: [id number] ROOM NO: P.0702 AGE: 46 REPORT TYPE: DISCHARGE SUMMARY SEX: F ADMITTING PHYSICIAN:Sharon Agudelo MD ATTENDING PHYSICIAN:Sharon Agudelo MD ADMISSION DATE: 10/17/2022 08:35:00DISCHARGE DATE: 10/25/2022 16:15:00 FINAL DIAGNOSES:1. Right hip fracture with nonunion, status post right SAMUEL.2. Acute post-residual pain.3. Bipolar.4. Depression.5. Acute blood loss anemia.6. Acute post-residual pain. MEDICATIONS AT DISCHARGE: Per JUN. DISPOSITION: To home. CONDITION ON DISCHARGE: Stable. LEVEL OF CARE: Full code. DIET: Regular. ACTIVITY: As tolerated. CONSULTANTS:1. Dr. Menchaca.2. Dr. Baker.3. Dr. Singh. PROCEDURE: Right total hip arthroplasty. COMPLICATIONS: None. INSTRUCTIONS: Instructions were given to the patient, compliance with medications and outpatient followup stressed with her. Followup care with Dr. Menchaca in 1 week. Level of care full code. COURSE OF HOSPITALIZATION: The patient was admitted due to right hip fracture with nonunion. The patient had a long course of hospitalization. A a Cardiology consultation with Dr. Katz was obtained. Cardiology clearance obtained. Condition was stable. The patient underwent successful SAMUEL. Postop course was uneventful. The patient received physical therapy. The patient had no rehab benefit by transplant case manager. Discharge home with home health. PATIENT NAME: CYNDIE PENN Dictated By: Sharon Agudelo MD Date Dictated: 10/30/2022 06:42:44Date Transcribed: 10/30/2022 23:12:11KS/ISYJogavin #: [id number] ID: [id number] by Sharon Agudelo MD On 10/31/2022 07:40:11 AM at 0740 PATIENT NAME: CYNDIE PENN [id number]:12:00P.[id number] ilable for patient [id number]:40:52 [facility] 2022-10-26 09:04:00 [id number] [place] [address] PATIENT NAME: CYNDIE PENN ADMIT DATE: 10/17/22ACCOUNT NO: [id number] ROOM NO: [facility] AGE: 46 REPORT TYPE: PROGRESS NOTE SEX: F ADMITTING PHYSICIAN:Sharon Agudelo MD ATTENDING PHYSICIAN:Sharon Agudelo MD DATE: 10/25/2022 PAIN MANAGEMENT PROGRESS NOTE CONSULTING PHYSICIAN: Ftaou Baker DO SPECIALTY: Pain management. Late entry for 10/25/2022. SUBJECTIVE: The patient is doing okay. She states she did a lot with physical therapy yesterday. She was having a little bit more pain. She will be going home today. I discussed the case with Dr. Agudelo. I thought she might be goingto rehabilitation facility. Using the Percocet. She has been on this at home also. She has been using pain medications for quite a bit of time. I checked the prescription monitoring report, but significant intensification of the pain since her surgery, but has been ambulating, did a lot with physical therapy yesterday. Not reporting any nausea or vomiting. No constipation. PHYSICAL EXAMINATION:VITAL SIGNS: Stable.GENERAL: Awake, alert, no acute distress.LUNGS: Normal respiratory rate, and effort.ABDOMEN: Soft, thin.EXTREMITIES: No edema, lower extremities. ASSESSMENT: Status post hip surgery. PLAN: Discharge planning with short course of oxycodone for her. It is higher than what the dose she normally takes at home. She will follow up with her paindoctor. Dictated By: Fatou Baker DO Date Dictated: 10/26/2022 09:04:00Date Transcribed: 10/26/2022 09:28:22RMLiyah/Osiel #: [id number] ID: [id number] by Fatou Baker DO On 10/30/2022 11:12:50 AM PATIENT NAME: CYNDIE PENN at 1112 PATIENT NAME: CYNDIE PENN [id number]:28:00P.[id number] ble for patient [id number]:13:19 [facility] 2022-10-25 14:34:00 [id number] 12T14:34:00 [facility] ([facility]) Med Order Sheet REPORT #: [id number] REPORT STATUS: Signed DATE: 10/25/22 TIME: 1434 PATIENT: CYNDIE PENN UNIT #: [id number] #: [id number] ROOM #: P.0702 BED: 1 : 76 AGE: 46 SEX: F ATTEND: Sharon Agudelo MD ADM AUTHOR: Sharon Agudelo MD ATTENTION EDITS and/or ADDENDA must be made in Patient Keeper for this note. Edits and ammendments created in [email or web address] are not visible in Patient Keeper or the legal medical record (HPF). Discharge Medication Reconciliation DISCHARGE MEDICATION LISTclonazePAM disintegrating tablet Dose: 2 MG PO BIDDocusate Sodium Cap (Colace Cap) Dose: 100MG PO BID, Disp: 60 capsule, Refills: 0Enoxaparin 40 mg/0.4 ml Inj (Lovenox 40 mg/0.4 ml Inj) Dose: 40MG SubQ Q24H, Disp: 14 x 0.4 mL syringe, Refills: 0PROzac capsule (fluoxetine) Dose: 60MG PO DAILYLevothyroxine Tab (Synthroid Tab) Dose: 200MCG PO DAILY@0600, Disp: 30 tablet, Refills: 0Lisinopril Tab (Prinivil Tab) Dose: 20MG PO DAILY, Disp: 30 tablet, Refills: 0Lyrica cap (pregabalin) Dose: 150 MG PO BIDPolyethylene Glycol Powder (Miralax Powder) Dose: 1PKT PO DAILY, Disp: 1 x 10 packet, Refills: 0 STOPPED HOSPITAL MEDICATIONSDc'd: Acetaminophen Tab (Tylenol Tab) 650MG PO Q4H PRN mild pain /orfeverDc'd: Acetaminophen Tab (Tylenol Tab) 650MG PO Q4H PRN temp greaterthan 100f/37.8cDc'd: ceFAZolin Inj (Ancef Inj) 1GM 120 MLS/HR IV Q8H X 15dosesin Sodium Chloride 0.9% (Nacl 0.9%) 10MLDc'd: diphenhydrAMINE Cap (Benadryl Cap) 25MG PO Q6H PRN itchingDc'd:hydrALAZINE Inj (Apresoline Inj) 10MG IV Q2H PRN sbp> 180Dc'd: HYDROmorphoneInj (Dilaudid Inj) 1MG IV Q4H PRN discomfortDc'd: Meperidine Inj (DemerolInj) 25MG IV PACU Q5MIN X 4 doses PRN pain scale 7-10Dc'd: Naloxone Inj(Narcan Inj) 0.2MG IV ASDIR PRN rr<8 or unresponsiveDc'd: Ondansetron Inj(Zofran Inj) 4MG IV Q6H PRN nausea and vomitingDc'd: oxyCODONE/APAP 5/325Tab (Percocet 5/325 Tab) 2TAB PO Q4H PRN discomfortDc'd: Pantoprazole DR Tab(Protonix Tab) 40MG PO DAILYDc'd: Promethazine Inj (Phenergan Inj) 12.5MG 101MLS/HR IV Q6H PRN nausea/vomiting (use 2nd)in sodium chloride 0.9 %intravenous solution 50MLDc'd: traMADol Tab (Ultram Tab) 50MG PO Q6H PRN pain scale 4-6Dc'd: Zolpidem Tab (Ambien Tab) 5MG PO BEDTIME PRN insomniaElectronically Signedin PatientKeeper by Sharon Agudelo on 10/25/22 14:33 at 1434ATTENTION EDITS and/or ADDENDA must be made in Patient Keeper for this note. Edits and ammendments created in [facility] are not visible in Patient Keeper or the legal medical record (HPF). [facility] #: [id number] OF REPORTCLClinical [id number] ailable for patient [id number] [facility] 2022-10-25 10:34:00 [id number] 12T10:34:00 THIS REPORT HAS BEEN APPENDED [facility] ([facility]) Internal Med. Progress Note REPORT #: [id number] REPORT STATUS: Signed DATE: 10/25/22 TIME: 1034 PATIENT: CYNDIE PENN UNIT #: [id number] #: [id number] ROOM #: P.0702 BED: 1 : 76 AGE: 46 SEX: F ATTEND: Sharon Agudelo MD ADM AUTHOR: Sharon Agudelo MD ATTENTION EDITS and/or ADDENDA must be made in Patient Keeper for this note. Edits and ammendments created in [employer] are not visible in Patient Keeper or the legal medical record (HPF). -- ASSESSMENT AND PLAN -- GENERAL ASSESSMENT:1. Right hip Fracture with nonunionOrthopedic surgery following Dr Padilla/Caron THAPain management followingPT/OTFall precautionshome once mohamud is outdiscussed with RN 2. Hypertension, continue lisinopril. Hold parameters in place.Hydralazine IV as needed for elevated BPEchocardiogram notedCardiology consulted- Dr Katz 3. Chronic pain syndrome, pain management.- Dr BakerCurrently patient on [place] morphine and Tylenol 4. Bipolar disorder, continue Prozac. Denies SI/HI. Follow up Psych. 5. Hypothyroidism, continue levothyroxine. Monitor TSH.[facility] 49Increased Synthroid to 200 mcg po daily 6. DVT prophylaxis.Lovenox 40 mg subcu daily -- SUBJECTIVE -- CHIEF COMPLAINT:awake and alertpost op painno feverdiscussed with family no distress discussed with pain management -REVIEW OF SYSTEMS- GENERAL: Negative for fever.RESPIRATORY: Negative for dyspnea.CARDIOVASCULAR: Negative for chest pain.GASTROINTESTINAL: Negative for abdominal pain.MUSCULOSKELETAL: Positive for hip pain.SKIN: Negative for rashes. -- OBJECTIVE -- VITALS (10/24 10:34 - 10/25 10:34):Temperature C: 36.8 (36.7 - 37.2)Temperature source: OralPulse Rate 74 (67 - 87)Respiratory rate: 18 (16 - 20)BP: 117/75 (90/57 - 129/79) I/Os (10/24 07:00 - 10/25 07:00):Net 335Intake 350Output 15 -EXAM- GENERAL: Awake, alert, and oriented.HEAD: Normocephalic, atraumatic.NECK: No JVD, supple.LUNGS: Clear bilaterally with normal respiratory effort.HEART: Regular rate and rhythm, normal S1, S2.ABDOMEN: Soft, non-tender, non-distended, bowel sounds present.EXTREMITIES: No clubbing, no cyanosis, no edema. -- DATA -- MEDICATIONS ENOXAPARIN SODIUM 40 MG SUBQ [id number] HCL/PF 4 MG IV Q6H PRNACETAMINOPHEN 650 MG PO Q4H PRNHYDROmorphone HCL 1 MG IV Q4H PRNceFAZolin with/in SODIUM CHLORIDE 0.9% 1 GM IV Y0GwceMOCqf HCL 50 MG PO Q6H PRNoxyCODONE HCL/ACETAMINOPHEN 2 TAB PO Q4H PRNPREGABALIN 150 MG PO BIDnalOXone HCL 0.2 MG IV ASDIR PRNFLUoxetine HCL 60 MG PO DAILYDOCUSATE SODIUM 100 MG PO BIDPANTOPRAZOLE 40 MG PO DAILYPROMETHAZINE HCL with/in SODIUM CHLORIDE 50 mL BAG 12.5 MG IV Q6H PRNlisinopriL 20 MG PO DAILYZOLPIDEM TARTRATE 5 MG PO BEDTIME PRNpolyethylene glycoL 3350 1 PKT PO DAILYACETAMINOPHEN 650 MG PO Q4H PRNMEPERIDINE HCL 25 MG IV PACU Q5MIN PRNdiphenhydrAMINE HCL 25 MG PO Q6H PRNhydrALAZINE HCL 10 MG IV Q2H PRN clonazePAM 2 MG PO BIDLEVOTHYROXINE SODIUM 200 MCG PO DAILY@0600 Signed in PatientKeeper by Sharon Agudelo MD on 10/25/22 at 10:34 at 1034 SECTION 2 ADDENDUM 1: 10/25/22 1518 PTKEEPERS/P SAMUEL due to nonunion fracturept is hard to ambulate with severe mobility limitation, pt needs a standardwheelchair and a 3 in 1 bedside commode to be able to live independently withfamily.pt is able to propel a manual wheelchair, she has good upper extremities rangof motion, WYATT CARLOS at 1518 ATTENTION EDITS and/or ADDENDA must be made in Patient Keeper for this note. Edits and ammendments created in [employer] are not visible in Patient Keeper or the legal medical record (HPF). [facility] #: [id number] OF REPORTPRProgress [id number]:34:00P.ES-[id number] ailable for patient clmeYMRHGDLFITNBKW1461-31-39B52:35:31 [facility] 2022-10-25 07:49:00 [id number] 12T07:49:[id number] [facility] [address] [place] [address] PATIENT NAME: CYNDIE PENN ADMIT DATE: 10/17/22ACCOUNT NO: [id number] ROOM NO: [facility] AGE: 46 REPORT TYPE: PROGRESS NOTE SEX: F ADMITTING PHYSICIAN:Sharon Agudelo MD ATTENDING PHYSICIAN:Sharon Agudelo MD DATE: 10/24/2022 PAIN MANAGEMENT PROGRESS NOTE CONSULTING PHYSICIAN: Fatou Baker DO. SPECIALTY: Pain management. Late entry for 10/24/2022. SUBJECTIVE: Ms. Penn is doing much better today. She is walking with therapy, appears in good spirits, states that the pain is definitely better. She is on oxycodone and IV Dilaudid. Not reporting any nausea or vomiting. No chest pain or shortness of breath. PHYSICAL EXAMINATION:VITAL SIGNS: Blood pressure 115/77, respirations 17, heart rate 79, and temperature 36.6.GENERAL: Awake, alert, in no acute distress.LUNGS: Normal respiratory rate, and effort.ABDOMEN: Soft.EXTREMITIES: No edema. ASSESSMENT: Right hip fracture nonunion, status post total hip arthroplasty, debility, chronic pain, and opiate dependence. PLAN: Continue current medications. We will be happy to follow up. Continue physical therapy. Dictated By: Fatou Baker DO Date Dictated: 10/25/2022 07:49:01Date Transcribed: 10/25/2022 08:42:40RMLiyah/Baldev #: [id number] ID: [id number] by Fatou Baker DO On 10/30/2022 11:12:49 AM at 1112 PATIENT NAME: CYNDIE PENN wepb2785-43-59C03:42:00P.[id number] ble for patient nsctRJJLBCVBBUMDHE9680-52-54W87:13:19 [facility] 2022-10-24 11:16:00 [id number]- 11T11:16:00 [facility] ([facility]) Internal Med. Progress Note REPORT #: [id number] REPORT STATUS: Signed DATE: 10/24/22 TIME: 1116 PATIENT: CYNDIE PENN UNIT #: [id number] #: [id number] ROOM #: P.0702 BED: 1 : 76 AGE: 46 SEX: F ATTEND: Sharon Agudelo MD ADM AUTHOR: Sharon Agudelo MD ATTENTION EDITS and/or ADDENDA must be made in Patient Keeper for this note. Edits and ammendments created in [employer] are not visible in Patient Keeper or the legal medical record (HPF). -- ASSESSMENT AND PLAN -- GENERAL ASSESSMENT:1. Right hip Fracture with nonunionOrthopedic surgery following Dr Padilla/Caron THAPain management followingPT/OTFall precautionshome once mohamud is outdiscussed with RN 2. Hypertension, continue lisinopril. Hold parameters in place.Hydralazine IV as needed for elevated BPEchocardiogram notedCardiology consulted- Dr Katz 3. Chronic pain syndrome, pain management.- Dr Diazrrently patient on [place] morphine and Tylenol 4. Bipolar disorder, continue Prozac. Denies SI/HI. Follow up Psych. 5. Hypothyroidism, continue levothyroxine. Monitor TSH.Endocrine consultedTS 49Increased Synthroid to 200 mcg po daily 6. DVT prophylaxis.Lovenox 40 mg subcu daily -- SUBJECTIVE -- CHIEF COMPLAINT:awake and alertpost op painno feverdiscussed with family no distress -REVIEW OF SYSTEMS- GENERAL: Negative for fever. RESPIRATORY: Negative for dyspnea.CARDIOVASCULAR: Negative for chest pain.GASTROINTESTINAL: Negative for abdominal pain.MUSCULOSKELETAL: Positive for hip pain.SKIN: Negative for rashes. -- OBJECTIVE -- VITALS (10/23 11:16 - 10/24 11:16):Temperature C: 36.7 (36.5 - 36.7)Temperature source: OralPulse Rate 67 (67 - 88)Respiratory rate: 20 (16 - 20)BP: 90/57 (90/55 - 120/79) I/Os (10/23 07:00 - 10/24 07:00):Net 875Intake 900Output 25 -EXAM- GENERAL: Awake, alert, and oriented.HEAD: Normocephalic, atraumatic.NECK: No JVD, supple.LUNGS: Clear bilaterally with normal respiratory effort.HEART: Regular rate and rhythm, normal S1, S2.ABDOMEN: Soft, non-tender, non-distended, bowel sounds present.EXTREMITIES: No clubbing, no cyanosis, no edema. -- DATA -- MEDICATIONS PREGABALIN 150 MG PO BIDPANTOPRAZOLE 40 MG PO DAILYPROMETHAZINE HCL with/in SODIUM CHLORIDE 50 mL BAG 12.5 MG IV Q6H PRNZOLPIDEM TARTRATE 5 MG PO BEDTIME PRNpolyethylene glycoL 3350 1 PKT PO DAILYACETAMINOPHEN 650 MG PO Q4H PRNdiphenhydrAMINE HCL 25 MG PO Q6H PRNhydrALAZINE HCL 10 MG IV Q2H PRNclonazePAM 2 MG PO BIDLEVOTHYROXINE SODIUM 200 MCG PO DAILY@0600ENOXAPARIN SODIUM 40 MG SUBQ [id number] HCL/PF 4 MG IV Q6H PRNACETAMINOPHEN 650 MG PO Q4H PRNHYDROmorphone HCL 1 MG IV Q4H PRNceFAZolin with/in SODIUM CHLORIDE 0.9% 1 GM IV Y5WvlwANHty HCL 50 MG PO Q6H PRNoxyCODONE HCL/ACETAMINOPHEN 2 TAB PO Q4H PRNnalOXone HCL 0.2 MG IV ASDIR PRNFLUoxetine HCL 60 MG PO DAILYDOCUSATE SODIUM 100 MG PO BIDlisinopriL 20 MG PO DAILYMEPERIDINE HCL 25 MG IV PACU Q5MIN PRN LABS HGB amp; HCT (10/24/22 04:51)HEMOGLOBIN 8.3 LHEMATOCRIT 26.4 L Signed in PatientKeeper by Sharon Agudelo MD on 10/24/22 at 11:17 at 1117ATTENTION EDITS and/or ADDENDA must be made in Patient Keeper for this note. Edits and ammendments created in [employer] are not visible in Patient Keeper or the legal medical record (HPF). RPT #: [id number] OF REPORTPRProgress [id number]:16:00P.SS-[id number] ailable for patient xztuARAHNCJVATCJKV6876-06-59M69:17:53 [facility] 2022-10-24 07:46:00 [id number] 11T07:46:00 [facility] ([facility]) Endocrinology Progress Note REPORT #: [id number] REPORT STATUS: Signed DATE: 10/24/22 TIME: 745 PATIENT: CYNDIE PENN UNIT #: [id number] #: [id number] ROOM #: P.0702 BED: 1 : 76 AGE: 46 SEX: F ATTEND: Sharon Agudelo MD ADM AUTHOR: Tamara Zhu V APRNNP ATTENTION EDITS and/or ADDENDA must be made in Patient Keeper for this note. Edits and ammendments created in [employer] are not visible in Patient Keeper or the legal medical record ([facility]). -- ASSESSMENT AND PLAN -- GENERAL ASSESSMENT:1. Hypothyroidism- TSH 46.89.- placed on levothyroxine 200 mcg 1 tab PO QD- Monitor HR, BP. HR 79-88. 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 Right hip pain- Continue pain management 3. Right hip fracture- Dr Menchaca following 4. Hypertension- continue lisinopril. Monitor BP 5. Hypoglycemia-No episodes COMMENT:HR WNL. we will sign off. Patient to follow up in 2-3 months with herendocrinologist to monitor TSH -- SUBJECTIVE -- PATIENT NARRATIVE:Events noted -REVIEW OF SYSTEMS- GENERAL: Negative for fever, malaise, fatigue.EYES: Negative for blurry vision. No diplopia.EARS/NOSE/THROAT: Negative for sore throat. No otalgia. No rhinorrhea.RESPIRATORY: Negative for dyspnea or wheeze. No cough.CARDIOVASCULAR: Negative for chest pain or palpitations. No extremity swelling.GASTROINTESTINAL: Negative for abdominal pain or nausea. No emesis. No diarrhea.GENITOURINARY: Negative for dysuria, frequency, or urgency. No gross hematuria. MUSCULOSKELETAL: R hip painSKIN: Negative for rashes. No pruritus.NEUROLOGICAL: Negative for headache. No vertigo. Denies paresthesias.PSYCHIATRIC: Negative for specific complaints.ENDOCRINE: Negative for cold intolerance, heat intolerance, polyphagia, polydipsia, polyuria, weight change, fatigue.HEMATALOGIC / LYMPHORETICULAR: Negative for excessive bleeding, unusual masses.ALLERGIC / IMMUNOLOGIC: Negative for heat/cold intolerance, polydipsia, or polyuria. -- OBJECTIVE -- VITALS (10/23 07:46 - 10/24 07:46):Temperature C: 36.6 (36.5 - 36.8)Temperature source: OralPulse Rate 86 (79 - 88)Respiratory rate: 20 (16 - 20)BP: 112/79 (100/55 - 120/83) I/Os (10/23 07:00 - 10/24 07:00):Net 900Intake 900 -EXAM- GENERAL: Well developed, well nourished, in no apparent distress.HEAD: Normocephalic, atraumatic.EYES: PERRLEARS: grossly normal hearing.NOSE: No deformity, no discharge, no inflammation, no lesions.MOUTH: Oropharynx without deformities or lesions, normal mucosa..NECK: No masses, no thyromegaly, no abnormal cervical nodes, trachea midline.CHEST: Grossly normal appearance.LUNGS: Clear bilaterally with normal respiratory effort.HEART: Regular rate and rhythm, normal S1, S2, no murmurs, no rubs, no gallops, no clicks.ABDOMEN: Soft, non-tender, no organomegaly, no masses noted.MUSCULOSKELETAL: No deformity, no scoliosis noted of thoracic or lumbar spine, joint ROM grossly normal, normal gait and station.EXTREMITIES: No clubbing, no cyanosis, no edema.NEUROLOGICAL: No focal deficitsPULSES: Pulses normal in all extremities.GENITOURINARY: Normal external genitalia.SKIN: Intact without significant lesions, or rashes.PSYCHIATRIC: Alert and oriented to time, person, place. Normal mood and affect, intact judgment and insight. -- DATA -- MEDICATIONS PREGABALIN 150 MG PO BID SODIUM CHLORIDE 0.9% 1000 ML IV [id number] 40 MG PO DAILYPROMETHAZINE HCL with/in SODIUM CHLORIDE 50 mL BAG 12.5 MG IV Q6H PRNZOLPIDEM TARTRATE 5 MG PO BEDTIME PRNpolyethylene glycoL 3350 1 PKT PO DAILYACETAMINOPHEN 650 MG PO Q4H PRNdiphenhydrAMINE HCL 25 MG PO Q6H PRNhydrALAZINE HCL 10 MG IV Q2H PRNclonazePAM 2 MG PO BIDLEVOTHYROXINE SODIUM 200 MCG PO DAILY@0600ENOXAPARIN SODIUM 40 MG SUBQ [id number] HCL/PF 4 MG IV Q6H PRNACETAMINOPHEN 650 MG PO Q4H PRNHYDROmorphone HCL 1 MG IV Q4H PRNceFAZolin with/in SODIUM CHLORIDE 0.9% 1 GM IV R8PfkuAWYtj HCL 50 MG PO Q6H PRNoxyCODONE HCL/ACETAMINOPHEN 2 TAB PO Q4H PRNnalOXone HCL 0.2 MG IV ASDIR PRNFLUoxetine HCL 60 MG PO DAILYDOCUSATE SODIUM 100 MG PO BIDlisinopriL 20 MG PO DAILYMEPERIDINE HCL 25 MG IV PACU Q5MIN PRN LABS HGB amp; HCT (10/24/22 04:51)HEMOGLOBIN 8.3 LHEMATOCRIT 26.4 L -- ATTESTATION -- TIME SPENT ON PATIENT CARE: - Direct 15 minutes - Counseling 5 minutes - Coordination of Care 15 minutes Signed in PatientKeeper by TAMARA ZHU on 10/24/22 at 07:47 Cosigned by LUDMILA CHOPRA MD on 11/08/22 at 19:44 at 1944 at 1944ATTENTION EDITS and/or ADDENDA must be made in Patient Keeper for this note. Edits and ammendments created in [facility] are not visible in Patient Keeper or the legal medical record ([facility]). [facility] #: [id number] OF REPORTPRProgress [id number]:46:00P.TH-[id number] ailable for patient iwadPMIYNCVOKRYYVH1752-43-24H56:44:41 [facility] 2022-10-23 14:36:00 [id number] 10T14:36:[id number] [facility] [address] [place] [address] PATIENT NAME: CYNDIE PENN ADMIT DATE: 10/17/22ACCOUNT NO: [id number] ROOM NO: [facility] AGE: 46 REPORT TYPE: PROGRESS NOTE SEX: F ADMITTING PHYSICIAN:Sharon Agudelo MD ATTENDING PHYSICIAN:Sharon Agudelo MD DATE: 10/23/2022 PROGRESS NOTE SUBJECTIVE: Events noted. Discussed with staff. Doing about the same. Complains of postop pain. She is awake and responsive. She is sitting in a wheelchair today. No nausea, no vomiting. Drain is in place. OBJECTIVE:VITAL SIGNS: Blood pressure 132/60, heart rate of , temperature 97.9 and respiratory rate of 17.HEENT: Head normocephalic.CHEST AND LUNGS: Bilateral breathing sounds.HEART: Normal S1, S2.ABDOMEN: Soft.EXTREMITIES: No edema.NEUROLOGIC: Awake and alert. ASSESSMENT AND PLAN:1. Right hip fracture with nonunion, status post total hip arthroplasty. Doingwell. Dr. Menchaca, Orthopedic Surgery following the patient. Continue physicaltherapy.2. Debility. PT, OT, fall precaution.3. Deep venous thrombosis prophylaxis. The patient is on Lovenox 40 mg subcutaneous daily.4. Acute post-procedural pain. Dr. Baker of Pain Management following the patient. The patient on Dilaudid, [place] and Tylenol as needed.5. Discharge planning: Home once cleared by Orthopedic Surgery. The patient has a drain in place. Dictated By: Sharon Agudelo MD Date Dictated: 10/23/2022 14:36:36Date Transcribed: 10/23/2022 15:54:37JULITO/HEATHER/Remy #: [id number] ID: [id number] by Sharon Agudelo MD On 10/23/2022 04:49:33 PM PATIENT NAME: CYNDIE PENN at 0449 PATIENT NAME: CYNDIE PENN [id number]:54:00P.[id number] ble for patient sxnwXMYDUUUYBXWYOC8430-57-53D32:50:05 [facility] 2022-10-23 10:18:00 [id number] 10T10:18:[id number] [facility] [address] [place] [address] PATIENT NAME: CYNDIE PENN ADMIT DATE: 10/17/22ACCOUNT NO: [id number] ROOM NO: [facility] AGE: 46 REPORT TYPE: PROGRESS NOTE SEX: F ADMITTING PHYSICIAN:Sharon Agudelo MD ATTENDING PHYSICIAN:Sharon Agudelo MD DATE: PAIN MANAGEMENT PROGRESS NOTE CONSULTING PHYSICIAN: Fatou Baker DO SPECIALTY: Pain management. SUBJECTIVE: Ms. Penn is complaining of pain, lying on her left side, right side hip up. I saw Dr. Menchaca's note, does not want the hips to be adducted. She is complaining of severe pain. She is going to work with physical therapy. She says the pain medications have not been given on time. She got the Dilaudidat 02:57 and 09:18 in the morning. Also, has Percocet 10/325, which is what shewas taking at home. PHYSICAL EXAMINATION:VITAL SIGNS: Blood pressure 115/83, respirations 18, heart rate 84, and temperature 36.8.GENERAL: Awake, alert, in some distress secondary to pain.LUNGS: Normal respiratory rate, and effort.ABDOMEN: Soft.EXTREMITIES: No edema. ASSESSMENT: Status post hip arthroplasty. PLAN: To work with physical therapy. I just told the nurse to follow Dr. Menchaca's and to keep the hips abducted, and not adducted. I am going to add Toradol for 24 hours. Her creatinine is within normal limits. Continue IV Dilaudid 1 mg and Percocet. Dictated By: Fatou Baker DO Date Dictated: 10/23/2022 10:18:43Date Transcribed: 10/23/2022 10:36:28RMM/LAVERN/SMILEYHaven #: [id number] ID: [id number] by Fatou Baker DO On 10/30/2022 11:12:49 AM PATIENT NAME: CYNDIE PENN at 1112 PATIENT NAME: CYNDIE PENN [id number]:36:00P.[id number] ble for patient iskzYVJUGZSFETDXNF4138-91-44X95:13:19 [facility] 2022-10-23 07:57:00 [id number] 10T07:57:00 [facility] ([facility]) Endocrinology Progress Note REPORT #: [id number] REPORT STATUS: Signed DATE: 10/23/22 TIME: 075 PATIENT: CYNDIE PENN UNIT #: [id number] #: [id number] ROOM #: P.0702 BED: 1 : 76 AGE: 46 SEX: F ATTEND: Sharon Agudelo MD ADM AUTHOR: Tamara Zhu ATTENTION EDITS and/or ADDENDA must be made in Patient Keeper for this note. Edits and ammendments created in [facility] are not visible in Patient Keeper or the legal medical record (HPF). -- ASSESSMENT AND PLAN -- GENERAL ASSESSMENT:1. Hypothyroidism- TSH 46.89.- placed on levothyroxine 200 mcg 1 tab PO QD- Monitor HR, BP. HR 86-96. 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 Right hip pain- Continue pain management 3. Right hip fracture- Dr Menchaca following 4. Hypertension- continue lisinopril. Monitor BP 5. Hypoglycemia-No episodes -- SUBJECTIVE -- PATIENT NARRATIVE:Events noted -REVIEW OF SYSTEMS- GENERAL: Negative for fever, malaise, fatigue.EYES: Negative for blurry vision. No diplopia.EARS/NOSE/THROAT: Negative for sore throat. No otalgia. No rhinorrhea.RESPIRATORY: Negative for dyspnea or wheeze. No cough.CARDIOVASCULAR: Negative for chest pain or palpitations. No extremity swelling.GASTROINTESTINAL: Negative for abdominal pain or nausea. No emesis. No diarrhea.GENITOURINARY: Negative for dysuria, frequency, or urgency. No gross hematuria.MUSCULOSKELETAL: R hip painSKIN: Negative for rashes. No pruritus.NEUROLOGICAL: Negative for headache. No vertigo. Denies paresthesias. PSYCHIATRIC: Negative for specific complaints.ENDOCRINE: Negative for cold intolerance, heat intolerance, polyphagia, polydipsia, polyuria, weight change, fatigue.HEMATALOGIC / LYMPHORETICULAR: Negative for excessive bleeding, unusual masses.ALLERGIC / IMMUNOLOGIC: Negative for heat/cold intolerance, polydipsia, or polyuria. -- OBJECTIVE -- VITALS (10/22 07:57 - 10/23 07:57):Temperature C: 37.8 (36.3 - 38.4)Pulse Rate 92 (86 - 96)Respiratory rate: 18 (14 - 18)BP: 106/68 (91/56 - 110/73) I/Os (10/22 07:00 - 10/23 07:00):Net -225.00Intake 1,910.00Output 2,135 -EXAM- GENERAL: Well developed, well nourished, in no apparent distress.HEAD: Normocephalic, atraumatic.EYES: PERRLEARS: grossly normal hearing.NOSE: No deformity, no discharge, no inflammation, no lesions.MOUTH: Oropharynx without deformities or lesions, normal mucosa..NECK: No masses, no thyromegaly, no abnormal cervical nodes, trachea midline.CHEST: Grossly normal appearance.LUNGS: Clear bilaterally with normal respiratory effort.HEART: Regular rate and rhythm, normal S1, S2, no murmurs, no rubs, no gallops, no clicks.ABDOMEN: Soft, non-tender, no organomegaly, no masses noted.MUSCULOSKELETAL: No deformity, no scoliosis noted of thoracic or lumbar spine, joint ROM grossly normal, normal gait and station.EXTREMITIES: No clubbing, no cyanosis, no edema.NEUROLOGICAL: No focal deficitsPULSES: Pulses normal in all extremities.GENITOURINARY: Normal external genitalia.SKIN: Intact without significant lesions, or rashes.PSYCHIATRIC: Alert and oriented to time, person, place. Normal mood and affect, intact judgment and insight. -- DATA -- MEDICATIONS PREGABALIN 150 MG PO BIDSODIUM CHLORIDE 0.9% 1000 ML IV [id number] 40 MG PO DAILYPROMETHAZINE HCL with/in SODIUM CHLORIDE 50 mL BAG 12.5 MG IV Q6H PRNZOLPIDEM TARTRATE 5 MG PO BEDTIME PRN polyethylene glycoL 3350 1 PKT PO DAILYACETAMINOPHEN 650 MG PO Q4H PRNdiphenhydrAMINE HCL 25 MG PO Q6H PRNhydrALAZINE HCL 10 MG IV Q2H PRNclonazePAM 2 MG PO BIDLEVOTHYROXINE SODIUM 200 MCG PO DAILY@0600ENOXAPARIN SODIUM 40 MG SUBQ [id number] HCL/PF 4 MG IV Q6H PRNACETAMINOPHEN 650 MG PO Q4H PRNHYDROmorphone HCL 1 MG IV Q4H PRNceFAZolin with/in SODIUM CHLORIDE 0.9% 1 GM IV A4BjexOMFma HCL 50 MG PO Q6H PRNoxyCODONE HCL/ACETAMINOPHEN 2 TAB PO Q4H PRNmorphine SULFATE 4 MG IV Q4H PRNnalOXone HCL 0.2 MG IV ASDIR PRNFLUoxetine HCL 60 MG PO DAILYDOCUSATE SODIUM 100 MG PO BIDlisinopriL 20 MG PO DAILYMEPERIDINE HCL 25 MG IV PACU Q5MIN PRN LABS HGB amp; HCT (10/23/22 05:55)HEMOGLOBIN 8.4 LHEMATOCRIT 26.1 L -- ATTESTATION -- TIME SPENT ON PATIENT CARE: - Direct 15 minutes - Counseling 5 minutes - Coordination of Care 15 minutes Signed in PatientKeeper by TAMARA ZHU on 10/23/22 at 07:57 Cosigned by LUDMILA CHOPRA MD on 11/08/22 at 19:43 at 1943 at 1943ATTENTION EDITS and/or ADDENDA must be made in Patient Keeper for this note. Edits and ammendments created in [facility] are not visible in Patient Keeper or the legal medical record (HPF). RPT #: [id number] OF REPORTPRProgress [id number]:57:00P.ER-[id number] ailable for patient beeyMGUAOELOYJXGUB7334-86-90N07:44:33 [facility] 2022-10-22 12:09:00 [id number]- 09T12:09:00 [facility] ([facility]) Endocrinology Progress Note REPORT #: [id number] REPORT STATUS: Signed DATE: 10/22/22 TIME: 1209 PATIENT: CYNDIE PENN UNIT #: [id number] #: [id number] ROOM #: P.0702 BED: 1 : 76 AGE: 46 SEX: F ATTEND: Sharon Agudelo MD ADM AUTHOR: Tamara Zhu ATTENTION EDITS and/or ADDENDA must be made in Patient Keeper for this note. Edits and ammendments created in [employer] are not visible in Patient Keeper or the legal medical record ([facility]). -- ASSESSMENT AND PLAN -- GENERAL ASSESSMENT:1. Hypothyroidism- TSH 46.89.- placed on levothyroxine 200 mcg 1 tab PO QD- Monitor HR, BP. HR 86-96. 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 Right hip pain- Continue pain management 3. Right hip fracture- Dr Menchaca following 4. Hypertension- continue lisinopril. Monitor BP 5. Hypoglycemia-No episodes -- SUBJECTIVE -- PATIENT NARRATIVE:Events noted -REVIEW OF SYSTEMS- GENERAL: Negative for fever, malaise, fatigue.EYES: Negative for blurry vision. No diplopia.EARS/NOSE/THROAT: Negative for sore throat. No otalgia. No rhinorrhea.RESPIRATORY: Negative for dyspnea or wheeze. No cough.CARDIOVASCULAR: Negative for chest pain or palpitations. No extremity swelling.GASTROINTESTINAL: Negative for abdominal pain or nausea. No emesis. No diarrhea.GENITOURINARY: Negative for dysuria, frequency, or urgency. No gross hematuria.MUSCULOSKELETAL: R hip painSKIN: Negative for rashes. No pruritus.NEUROLOGICAL: Negative for headache. No vertigo. Denies paresthesias. PSYCHIATRIC: Negative for specific complaints.ENDOCRINE: Negative for cold intolerance, heat intolerance, polyphagia, polydipsia, polyuria, weight change, fatigue.HEMATALOGIC / LYMPHORETICULAR: Negative for excessive bleeding, unusual masses.ALLERGIC / IMMUNOLOGIC: Negative for heat/cold intolerance, polydipsia, or polyuria. -- OBJECTIVE -- VITALS (10/22 11:09 - 10/22 12:09):Temperature C: 36.3 (36.3 - 37.3)Temperature source: OralPulse Rate 91 (86 - 98)Respiratory rate: 14 (14 - 20)BP: 110/61 (93/61 - 113/77) I/Os (10/21 07:00 - 10/22 07:00):Net -760Intake 300Output 1,060 -EXAM- GENERAL: Well developed, well nourished, in no apparent distress.HEAD: Normocephalic, atraumatic.EYES: PERRLEARS: grossly normal hearing.NOSE: No deformity, no discharge, no inflammation, no lesions.MOUTH: Oropharynx without deformities or lesions, normal mucosa..NECK: No masses, no thyromegaly, no abnormal cervical nodes, trachea midline.CHEST: Grossly normal appearance.LUNGS: Clear bilaterally with normal respiratory effort.HEART: Regular rate and rhythm, normal S1, S2, no murmurs, no rubs, no gallops, no clicks.ABDOMEN: Soft, non-tender, no organomegaly, no masses noted.MUSCULOSKELETAL: No deformity, no scoliosis noted of thoracic or lumbar spine, joint ROM grossly normal, normal gait and station.EXTREMITIES: No clubbing, no cyanosis, no edema.NEUROLOGICAL: No focal deficitsPULSES: Pulses normal in all extremities.GENITOURINARY: Normal external genitalia.SKIN: Intact without significant lesions, or rashes.PSYCHIATRIC: Alert and oriented to time, person, place. Normal mood and affect, intact judgment and insight. -- DATA -- MEDICATIONS PREGABALIN 150 MG PO BIDPROMETHAZINE HCL with/in SODIUM CHLORIDE 50 mL BAG 12.5 MG IV Q6H PRNZOLPIDEM TARTRATE 5 MG PO BEDTIME PRNpolyethylene glycoL 3350 1 PKT PO DAILY ACETAMINOPHEN 650 MG PO Q4H PRNdiphenhydrAMINE HCL 25 MG PO Q6H PRNhydrALAZINE HCL 10 MG IV Q2H PRNclonazePAM 2 MG PO BIDLEVOTHYROXINE SODIUM 200 MCG PO DAILY@0600ENOXAPARIN SODIUM 40 MG SUBQ [id number] HCL/PF 4 MG IV Q6H PRNACETAMINOPHEN 650 MG PO Q4H PRNtraMADol HCL 50 MG PO Q6H PRNmorphine SULFATE 4 MG IV Q4H PRNnalOXone HCL 0.2 MG IV ASDIR PRNFLUoxetine HCL 60 MG PO DAILYDOCUSATE SODIUM 100 MG PO BIDlisinopriL 20 MG PO DAILYMEPERIDINE HCL 25 MG IV PACU Q5MIN PRNSODIUM CHLORIDE 0.9% 1000 ML IV [id number] 40 MG PO DAILYHYDROmorphone HCL 1 MG IV Q4H PRNceFAZolin with/in SODIUM CHLORIDE 0.9% 1 GM IV W1MkzvSDXAIC HCL/ACETAMINOPHEN 2 TAB PO Q4H PRN LABS CBC W/AUTO DIFF (10/22/22 06:10)WHITE BLOOD CELL 8.2RED BLOOD CELL 3.15 LHEMOGLOBIN 9.3D L D LHEMATOCRIT 28.4L LMEAN CELL VOLUME 90.2MEAN CELL HGB 29.5MEAN CELL HGB CONCENTRATION 32.7 LRED CELL DISTRIBUTION WIDTH 14.1PLATELET COUNT 244MEAN PLATELET VOLUME 10.0NEUTROPHIL % 71.4LYMPHOCYTE % 18.9 LMONOCYTE % 8.4EOSINOPHIL % 0.6BASOPHIL % 0.2NEUTROPHIL # 5.83LYMPHOCYTE # 1.55MONOCYTE # 0.69EOSINOPHIL # 0.05BASOPHIL # 0.02 BASIC METABOLIC PANEL (10/22/22 06:10)SODIUM 138POTASSIUM 4.2CHLORIDE 105CARBON DIOXIDE 27GLUCOSE 96BLOOD UREA NITROGEN 8L LGLOMERULAR FILTRATION RATE >=60 max estimateCREATININE 0.60CALCIUM 7.5 L -- ATTESTATION -- TIME SPENT ON PATIENT CARE: - Direct 15 minutes - Counseling 5 minutes - Coordination of Care 15 minutes Signed in PatientKeeper by TAMARA ZHU on 10/22/22 at 12:10 Cosigned by LUDMILA CHOPRA MD on 11/08/22 at 19:44 at 1944 at 1944ATTENTION EDITS and/or ADDENDA must be made in Patient Keeper for this note. Edits and ammendments created in [facility] are not visible in Patient Keeper or the legal medical record ([facility]). RPT #: [id number] OF REPORTPRProgress [id number]:09:00P.[id number] ailable for patient swziKVQRGPDWWAYAHT1277-79-08A17:44:41 [facility] 2022-10-22 11:42:00 [id number]- 09T11:42:00 [facility] ([facility]) Internal Med. Progress Note REPORT #: [id number] REPORT STATUS: Signed DATE: 10/22/22 TIME: 1142 PATIENT: CYNDIE PENN UNIT #: [id number] #: [id number] ROOM #: P.0702 BED: 1 : 76 AGE: 46 SEX: F ATTEND: Sharon Agudelo MD ADM AUTHOR: Sharon Agudelo MD ATTENTION EDITS and/or ADDENDA must be made in Patient Keeper for this note. Edits and ammendments created in [facility] are not visible in Patient Keeper or the legal medical record ([facility]). -- ASSESSMENT AND PLAN -- GENERAL ASSESSMENT:1. Right hip Fracture with nonunionOrthopedic surgery following Dr Padilla/P THAPain management following 2. Hypertension, continue lisinopril. Hold parameters in place.Hydralazine IV as needed for elevated BPEchocardiogram notedCardiology consulted- Dr Katz 3. Chronic pain syndrome, pain management.- Dr BakerCurrently patient on [place] morphine and Tylenol 4. Bipolar disorder, continue Prozac. Denies SI/HI. Follow up Psych. 5. Hypothyroidism, continue levothyroxine. Monitor TSH.Endocrine consultedTS 49Increased Synthroid to 200 mcg po daily 6. DVT prophylaxis.Lovenox 40 mg subcu daily -- SUBJECTIVE -- CHIEF COMPLAINT:awake and alertpost op painno feverdiscussed with family no distress -REVIEW OF SYSTEMS- GENERAL: Negative for fever.RESPIRATORY: Negative for dyspnea.CARDIOVASCULAR: Negative for chest pain.GASTROINTESTINAL: Negative for abdominal pain.MUSCULOSKELETAL: Positive for hip pain. SKIN: Negative for rashes. -- OBJECTIVE -- VITALS (10/21 11:42 - 10/22 11:42):Temperature C: 36.7 (36.4 - 37.3)Temperature source: OralPulse Rate 96 (86 - 98)Respiratory rate: 14 (14 - 20)BP: 100/65 (93/65 - 113/77) I/Os (10/21 07:00 - 10/22 07:00):Net -760Intake 300Output 1,060 -EXAM- GENERAL: Awake, alert, and oriented.HEAD: Normocephalic, atraumatic.NECK: No JVD, supple.LUNGS: Clear bilaterally with normal respiratory effort.HEART: Regular rate and rhythm, normal S1, S2.ABDOMEN: Soft, non-tender, non-distended, bowel sounds present.MUSCULOSKELETAL: Bilateral lower extremity weakness.EXTREMITIES: No clubbing, no cyanosis, no edema.NEUROLOGICAL: No focal deficits, cranial nerves II-XII grossly intact. -- DATA -- MEDICATIONS PREGABALIN 150 MG PO BIDPROMETHAZINE HCL with/in SODIUM CHLORIDE 50 mL BAG 12.5 MG IV Q6H PRNZOLPIDEM TARTRATE 5 MG PO BEDTIME PRNpolyethylene glycoL 3350 1 PKT PO DAILYACETAMINOPHEN 650 MG PO Q4H PRNdiphenhydrAMINE HCL 25 MG PO Q6H PRNhydrALAZINE HCL 10 MG IV Q2H PRNclonazePAM 2 MG PO BIDLEVOTHYROXINE SODIUM 200 MCG PO DAILY@0600ENOXAPARIN SODIUM 40 MG SUBQ [id number] HCL/PF 4 MG IV Q6H PRNACETAMINOPHEN 650 MG PO Q4H PRNtraMADol HCL 50 MG PO Q6H PRNmorphine SULFATE 4 MG IV Q4H PRNnalOXone HCL 0.2 MG IV ASDIR PRNFLUoxetine HCL 60 MG PO DAILYDOCUSATE SODIUM 100 MG PO BIDlisinopriL 20 MG PO DAILYMEPERIDINE HCL 25 MG IV PACU Q5MIN PRNSODIUM CHLORIDE 0.9% 1000 ML IV [id number] 40 MG PO DAILYHYDROmorphone HCL 1 MG IV Q4H PRNceFAZolin with/in SODIUM CHLORIDE 0.9% 1 GM IV G7MuxyRLYXIW HCL/ACETAMINOPHEN 2 TAB PO Q4H PRN LABS CBC W/AUTO DIFF (10/22/22 06:10)WHITE BLOOD CELL 8.2RED BLOOD CELL 3.15 LHEMOGLOBIN 9.3D L D LHEMATOCRIT 28.4L LMEAN CELL VOLUME 90.2MEAN CELL HGB 29.5MEAN CELL HGB CONCENTRATION 32.7 LRED CELL DISTRIBUTION WIDTH 14.1PLATELET COUNT 244MEAN PLATELET VOLUME 10.0NEUTROPHIL % 71.4LYMPHOCYTE % 18.9 LMONOCYTE % 8.4EOSINOPHIL % 0.6BASOPHIL % 0.2NEUTROPHIL # 5.83LYMPHOCYTE # 1.55MONOCYTE # 0.69EOSINOPHIL # 0.05BASOPHIL # 0.02 BASIC METABOLIC PANEL (10/22/22 06:10)SODIUM 138POTASSIUM 4.2CHLORIDE 105CARBON DIOXIDE 27GLUCOSE 96BLOOD UREA NITROGEN 8L LGLOMERULAR FILTRATION RATE >=60 max estimateCREATININE 0.60CALCIUM 7.5 L Signed in PatientKeeper by Sharon Agudelo MD on 10/22/22 at 11:44 at 1144ATTENTION EDITS and/or ADDENDA must be made in Patient Keeper for this note. Edits and ammendments created in [email or web address] are not visible in Patient Keeper or the legal medical record ([facility]). RPT #: [id number] OF REPORTPRProgress [id number]:42:00P.PI-[id number] ailable for patient [id number]-48G17:45:03 [facility] 2022-10-21 21:42:00 [id number] 08T21:42:00 [facility] ([facility]) Orthopedic Progress Note REPORT #: [id number] REPORT STATUS: Signed DATE: 10/21/22 TIME: 2141 PATIENT: CYNDIE PENN UNIT #: [id number] #: [id number] ROOM #: P.0702 BED: 1 : 76 AGE: 46 SEX: F ATTEND: Sharon Agudelo MD ADM AUTHOR: Balbir Menchaca MD ATTENTION EDITS and/or ADDENDA must be made in Patient Keeper for this note. Edits and ammendments created in [email or web address] are not visible in Patient Keeper or the legal medical record ([facility]). -- SUBJECTIVE -- CHIEF COMPLAINT:pt found adducting leg went over a gain the hip precautions quite wooried shewill be noncompliant, PT to reinforce precautions, xrays went over look verygood, cx negative but pending, rtc 2-3 weeks after dc, told to call 06/11 withany questions and has done this 4 days in recent past -- OBJECTIVE -- VITALS (10/20 21:42 - 10/21 21:42):Temperature C: 36.8 (36.7 - 36.8)Temperature source: OralPulse Rate 86 (68 - 95)Respiratory rate: 18 (16 - 18)BP: 101/68 (101/68 - 156/96) -- DATA -- MEDICATIONS flumazeniL 0.2 MG IV PACU ASDIR PRNHYDROmorphone HCL 0.5 MG IV PACU Q10MIN PRNMEPERIDINE HCL 12.5 MG IV PACU ONCE PRNPREGABALIN 150 MG PO BIDoxyCODONE HCL 5 MG PO PACU Q4H PRNLABETALOL HCL 10 MG IV PACU Q5MIN PRNnalOXone HCL 0.04 MG IV PACU Q2MIN PRNdiphenhydrAMINE HCL 12.5 MG IV PACU ONCE PRNPROMETHAZINE HCL with/in SODIUM CHLORIDE 50 mL BAG 12.5 MG IV Q6H PRNZOLPIDEM TARTRATE 5 MG PO BEDTIME PRNPREGABALIN 75 MG PO PACUpolyethylene glycoL 3350 1 PKT PO DAILYCELECOXIB 200 MG PO PACUACETAMINOPHEN 650 MG PO Q4H PRNCELECOXIB 200 MG PO PREOPdiphenhydrAMINE HCL 25 MG PO Q6H PRNhydrALAZINE HCL 10 MG IV PACU Q10MIN PRNhydrALAZINE HCL 10 MG IV Q2H PRNclonazePAM 2 MG PO BIDPREGABALIN 75 MG PO PREOPLEVOTHYROXINE SODIUM 200 MCG PO DAILY@0600morphine SULFATE 2 MG IV PACU Q5MIN PRN ENOXAPARIN SODIUM 40 MG SUBQ [id number] HCL/PF 4 MG IV Q6H PRNACETAMINOPHEN 650 MG PO Q4H PRNtraMADol HCL 50 MG PO Q6H PRNmorphine SULFATE 4 MG IV Q4H PRNnalOXone HCL 0.2 MG IV ASDIR PRNFLUoxetine HCL 60 MG PO DAILYDOCUSATE SODIUM 100 MG PO BIDlisinopriL 20 MG PO DAILYATROPINE SULFATE 0.5 MG IV PACU Q5MIN PRNEPINEPHrine 2.25% 0.5 ML NEB PACU ASDIR PRNSODIUM CHLORIDE 0.9% 1000 ML IV PACU IV FLUIDPROMETHAZINE HCL with/in SODIUM CHLORIDE 50 mL BAG 6.25 MG IV PACU ONCE PRNMEPERIDINE HCL 25 MG IV PACU Q5MIN PRNACETAMINOPHEN 1000 MG IV PACUSODIUM CHLORIDE 0.9% 1000 ML IV [id number] 40 MG PO DAILYceFAZolin with/in SODIUM CHLORIDE 0.9% 1 GM IV [id number] HCL 0.5 MG IV Q4H PRNoxyCODONE HCL/ACETAMINOPHEN 2 TAB PO Q4H PRN Signed in PatientKeeper by Balbir Menchaca MD on 10/21/22 at 21:45 at 2145ATTENTION EDITS and/or ADDENDA must be made in Patient Keeper for this note. Edits and ammendments created in [facility] are not visible in Patient Keeper or the legal medical record ([facility]). RPT #: [id number] OF REPORTPRProgress [id number]:42:00P.[id number] ailable for patient [id number]:45:47 [facility] 2022-10-21 21:39:00 [id number] 08T21:39:[id number] [facility] [address] [place] [address] PATIENT NAME: CYNDIE PENN ADMIT DATE: 10/17/22ACCOUNT NO: [id number] ROOM NO: P.0702 AGE: 46 REPORT TYPE: PROGRESS NOTE SEX: F ADMITTING PHYSICIAN:Sharon Agudelo MD ATTENDING PHYSICIAN:Sharon Agudelo MD DATE: 10/21/2022 CONSULTING PHYSICIAN: Fatou Baker DO SPECIALTY: Pain management. SUBJECTIVE: Ms. Penn is status post surgery. She had right total hip arthroplasty. She is doing okay, complaining of some pain, but hydrocodone was added by the surgical team. She has morphine 4 mg IV q. 4 hours. PHYSICAL EXAMINATION:VITAL SIGNS: Blood pressure 101/68, respirations 18, heart rate 86, wamkjrknniu17.8.GENERAL: Awake and alert, not sedated.LUNGS: Normal respiratory rate and effort.ABDOMEN: Soft.EXTREMITIES: Dressing noted at the hip. ASSESSMENT: Status post right total hip arthroplasty. PLAN: Continue current medications. Morphine for severe breakthrough pain. I am going to add Toradol for a few doses. Her creatinine is within normal limits. GFR is within normal limits. Discontinue the hydrocodone. Continue Percocet. We will be happy to follow up. Dictated By: Fatou Baker DO Date Dictated: 10/21/2022 21:39:35Date Transcribed: 10/21/2022 23:08:58RMLiyah/Alejandra #: [id number] ID: [id number] by Fatou Baker DO On 10/30/2022 11:12:48 AM at 1112 PATIENT NAME: CYNDIE PENN [id number]:08:00P.[id number] ble for patient [id number]:13:19 [facility] 2022-10-21 16:31:00 [id number] 08T16:31:00 [facility] ([facility]) Endocrinology Progress Note REPORT #: [id number] REPORT STATUS: Signed DATE: 10/21/22 TIME: 163 PATIENT: CYNDIE PENN UNIT #: [id number] #: [id number] ROOM #: [facility] BED: 1 : 76 AGE: 46 SEX: F ATTEND: Sharon Agudelo MD ADM AUTHOR: Tamara Zhu ATTENTION EDITS and/or ADDENDA must be made in Patient Keeper for this note. Edits and ammendments created in [facility] are not visible in Patient Keeper or the legal medical record ([facility]). -- ASSESSMENT AND PLAN -- GENERAL ASSESSMENT:1. Hypothyroidism- TSH 46.89.- placed on levothyroxine 200 mcg 1 tab PO QD- Monitor HR, BP. 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 Right hip pain- Continue pain management 3. Right hip fracture- Dr Menchaca following 4. Hypertension- continue lisinopril. Monitor BP 5. Hypoglucemia- 10/20 BS 72. NPO after midnight- 10/21 - surgery this am -- SUBJECTIVE -- PATIENT NARRATIVE:Events noted. NPO after Midnight last night for surgery this morning -REVIEW OF SYSTEMS- GENERAL: Negative for fever, malaise, fatigue.EYES: Negative for blurry vision. No diplopia.EARS/NOSE/THROAT: Negative for sore throat. No otalgia. No rhinorrhea.RESPIRATORY: Negative for dyspnea or wheeze. No cough.CARDIOVASCULAR: Negative for chest pain or palpitations. No extremity swelling.GASTROINTESTINAL: Negative for abdominal pain or nausea. No emesis. No diarrhea.GENITOURINARY: Negative for dysuria, frequency, or urgency. No gross hematuria.MUSCULOSKELETAL: R hip painSKIN: Negative for rashes. No pruritus.NEUROLOGICAL: Negative for headache. No vertigo. Denies paresthesias.PSYCHIATRIC: Negative for specific complaints.ENDOCRINE: Negative for cold intolerance, heat intolerance, polyphagia, polydipsia, polyuria, weight change, fatigue.HEMATALOGIC / LYMPHORETICULAR: Negative for excessive bleeding, unusual masses.ALLERGIC / IMMUNOLOGIC: Negative for heat/cold intolerance, polydipsia, or polyuria. -- OBJECTIVE -- VITALS (10/20 16:31 - 10/21 16:31):Temperature C: 36.7 (36.7 - 36.9)Temperature source: OralPulse Rate 95 (65 - 95)Respiratory rate: 16 (16 - 17)BP: 111/76 (111/75 - 156/96) -EXAM- GENERAL: Well developed, well nourished, in no apparent distress.HEAD: Normocephalic, atraumatic.EYES: PERRLEARS: grossly normal hearing.NOSE: No deformity, no discharge, no inflammation, no lesions.MOUTH: Oropharynx without deformities or lesions, normal mucosa..NECK: No masses, no thyromegaly, no abnormal cervical nodes, trachea midline.CHEST: Grossly normal appearance.LUNGS: Clear bilaterally with normal respiratory effort.HEART: Regular rate and rhythm, normal S1, S2, no murmurs, no rubs, no gallops, no clicks.ABDOMEN: Soft, non-tender, no organomegaly, no masses noted.MUSCULOSKELETAL: No deformity, no scoliosis noted of thoracic or lumbar spine, joint ROM grossly normal, normal gait and station.EXTREMITIES: No clubbing, no cyanosis, no edema.NEUROLOGICAL: No focal deficitsPULSES: Pulses normal in all extremities.GENITOURINARY: Normal external genitalia.SKIN: Intact without significant lesions, or rashes.PSYCHIATRIC: Alert and oriented to time, person, place. Normal mood and affect, intact judgment and insight. -- DATA -- MEDICATIONS flumazeniL 0.2 MG IV PACU ASDIR PRNHYDROmorphone HCL 0.5 MG IV PACU Q10MIN PRNMEPERIDINE HCL 12.5 MG IV PACU ONCE PRNPREGABALIN 150 MG PO BIDoxyCODONE HCL 5 MG PO PACU Q4H PRNLABETALOL HCL 10 MG IV PACU Q5MIN PRNnalOXone HCL 0.04 MG IV PACU Q2MIN PRNdiphenhydrAMINE HCL 12.5 MG IV PACU ONCE PRN PROMETHAZINE HCL with/in SODIUM CHLORIDE 50 mL BAG 12.5 MG IV Q6H PRNZOLPIDEM TARTRATE 5 MG PO BEDTIME PRNPREGABALIN 75 MG PO PACUpolyethylene glycoL 3350 1 PKT PO DAILYCELECOXIB 200 MG PO PACUACETAMINOPHEN 650 MG PO Q4H PRNCELECOXIB 200 MG PO PREOPdiphenhydrAMINE HCL 25 MG PO Q6H PRNhydrALAZINE HCL 10 MG IV PACU Q10MIN PRNhydrALAZINE HCL 10 MG IV Q2H PRNclonazePAM 2 MG PO BIDPREGABALIN 75 MG PO PREOPLEVOTHYROXINE SODIUM 200 MCG PO DAILY@0600morphine SULFATE 2 MG IV PACU Q5MIN PRNENOXAPARIN SODIUM 40 MG SUBQ [id number] BITARTRATE/APAP 2 TAB PO Q4H PRNONDANSETRON HCL/PF 4 MG IV Q6H PRNACETAMINOPHEN 650 MG PO Q4H PRNtraMADol HCL 50 MG PO Q6H PRNmorphine SULFATE 4 MG IV Q4H PRNnalOXone HCL 0.2 MG IV ASDIR PRNFLUoxetine HCL 60 MG PO DAILYDOCUSATE SODIUM 100 MG PO BIDHYDROcodone BITARTRATE/APAP 2 TAB PO Q4H PRNlisinopriL 20 MG PO DAILYATROPINE SULFATE 0.5 MG IV PACU Q5MIN PRNEPINEPHrine 2.25% 0.5 ML NEB PACU ASDIR PRNSODIUM CHLORIDE 0.9% 1000 ML IV PACU IV FLUIDPROMETHAZINE HCL with/in SODIUM CHLORIDE 50 mL BAG 6.25 MG IV PACU ONCE PRNMEPERIDINE HCL 25 MG IV PACU Q5MIN PRNACETAMINOPHEN 1000 MG IV PACUPANTOPRAZOLE 40 MG PO DAILYceFAZolin with/in SODIUM CHLORIDE 0.9% 1 GM IV M1HHKYYCwnihvvfc HCL 0.5 MG IV Q4H PRNoxyCODONE HCL/ACETAMINOPHEN 2 TAB PO Q4H PRN -- ATTESTATION -- TIME SPENT ON PATIENT CARE: - Direct 15 minutes - Counseling 5 minutes - Coordination of Care 15 minutes Signed in PatientKeeper by TAMARA ZHU on 10/21/22 at 16:33 Cosigned by LUDMILA CHOPRA MD on 11/08/22 at 19:44 at 1944 at 1944ATTENTION EDITS and/or ADDENDA must be made in Patient Keeper for this note. Edits and ammendments created in [facility] are not visible in Patient Keeper or the legal medical record ([facility]). [facility] #: [id number] OF REPORTPRProgress [id number]:31:00P.WY-[id number] ailable for patient [id number]:44:41 [facility] 2022-10-21 12:06:00 [id number] 08T12:06:[id number] [facility] [address] [place] [address] PATIENT NAME: CYNDIE PENN ADMIT DATE: 10/17/22ACCOUNT NO: [id number] ROOM NO: [facility] AGE: 46 REPORT TYPE: OPERATIVE REPORT SEX: F ADMITTING PHYSICIAN:Sharon Agudelo MD ATTENDING PHYSICIAN:Sharon Agudelo MD OPERATION DATE: 10/21/2022 SURGEON: Balbir Menchaca MD FUR MIXER OPERATOR: Roscoe Thakkar from surgical services coordinator. PREOPERATIVE DIAGNOSIS: The patient with a right femoral neck fracture that wassome time ago. POSTOPERATIVE DIAGNOSIS: The patient with a right femoral neck fracture that was some time ago with the addition of sclerotic cap that was making it very hard to get into the canal of the femur, which added time to the case. PROCEDURES: Right total hip arthroplasty using the Tate and Nephew system through an anterior approach, G7 OsseoTi 3-hole 50 mm cup with 2 screws, a 70 and a 30, an E1 liner neutral, a high offset Taperloc 6 x 132, a -6, 36 mm neck. ANESTHESIA: General. ESTIMATED BLOOD LOSS: 500 mL. COMPLICATIONS: None. PROCEDURE IN DETAIL: As follows: The patient's right hip was sterilely preppedand draped supine on the Bixby table. A standard 10 cm incision was made. We went ahead and went down to the tensor. The tensor we took laterally, the rectus medially. We tied them off two ascending branches of the lateral circumflex with some 2-0 silk ties. We created medial and lateral flap of the capsule with a #5 Ethibond and we did take fluid from the joint. There was no evidence of infection. We went ahead and made another cut right above the lesser troch and that helped us removed the head, which only measured to a 42, which was quite small. We went ahead and cleared off the medial side of the trochanter of the femur to make sure that was going to come up enough and then we went ahead and began reaming. We used the C-arm with a 26 modifier to check the abduction, anteversion angle for reaming as well as the length of the hip. We reamed up to a 49, put a 50 in, this gave us a good fit. We put 2 screws, a 70 and a 30, both gave an excellent bite. We went ahead and put an E1 liner in. We did 3 liters of Pulsavac throughout the case. We then turned our attention to the femur, was externally rotated at 90 degrees, dropping it to the floor andabducting it with medial Hohmann and 2-prong behind the greater trochanter. Thedifficulty was a sclerotic piece that was in the top of the femur that made it very hard to find the canal. After drilling and using a pigtail, we eventually got it down the canal. We verified that with C-arm. We used a banana broach, PATIENT NAME: CYNDIE PENN lateralized it and then got to a 6, which gave us a good endpoint with some 2 tines above the calcar area. The whole calcar area was enlarged I think from theinjury and we went ahead and put the real 6, down with a -6 that we checked withthe C-arm to make the route good. Everything looked good. We finished off the 3 liters. We then repaired the capsule with a #5 Ethibond that we had tagged that with. We put a large Hemovac in, then ran the tensor with #1 Vicryl, 2-0 subcuticular and lor in the skin. Each level of closure had copious amount of irrigation, strict hemostasis. The patient tolerated the procedure well, wasextubated and taken to the recovery room in good condition. Dictated By: Balbir Menchaca MD Date Dictated: 10/21/2022 12:06:02Date Transcribed: 10/21/2022 13:38:07CARRIE/MITALI/RASHADHJogavin #: [id number] ID: [id number] by Balbir Menchaca MD On 10/21/2022 07:24:53 PM at 0724 PATIENT NAME: CYNDIE PENN igxqgn3230-40-57U90:38:00P.[id number] lable for patient [id number]:25:35 [facility] 2022-10-21 11:42:00 [id number] 08T11:42:00 [facility] ([facility]) Internal Med. Progress Note REPORT #: [id number] REPORT STATUS: Signed DATE: 10/21/22 TIME: 1142 PATIENT: CYNDIE PENN UNIT #: [id number] #: [id number] ROOM #: P0702 BED: 1 : 76 AGE: 46 SEX: F ATTEND: Sharon Agudelo MD ADM AUTHOR: Sharon Agudelo MD ATTENTION EDITS and/or ADDENDA must be made in Patient Keeper for this note. Edits and ammendments created in [employer] are not visible in Patient Keeper or the legal medical record ([facility]). -- ASSESSMENT AND PLAN -- GENERAL ASSESSMENT:1. Right hip Fracture with nonunionOrthopedic surgery following Dr Ferguson today, NPO per orthodiscussed with familyCardiology clearance obtained 2. Hypertension, continue lisinopril. Hold parameters in place.Hydralazine IV as needed for elevated BPEchocardiogram pendingCardiology consulted- Dr Katz 3. Chronic pain syndrome, pain management.- Dr BakerCurrently patient on [place] morphine and Tylenol 4. Bipolar disorder, continue Prozac. Denies SI/HI. Follow up Psych. 5. Hypothyroidism, continue levothyroxine. Monitor TSH.Endocrine consultedTSH 49Increased synthroid to 200 mcg po dailyCheck free T3 and free T4 6. DVT prophylaxis.Lovenox subcu -- SUBJECTIVE -- CHIEF COMPLAINT:Events noted, n.p.o. for surgical intervention, awake and alert, discussed with familydiscussed with RN -REVIEW OF SYSTEMS- GENERAL: Negative for fever.RESPIRATORY: Negative for dyspnea.CARDIOVASCULAR: Negative for chest pain.GASTROINTESTINAL: Negative for abdominal pain. MUSCULOSKELETAL: Positive for hip pain.SKIN: Negative for rashes. -- OBJECTIVE -- VITALS (10/20 11:43 - 10/21 11:43):Temperature C: 36.7 (36.7 - 36.9)Temperature source: OralPulse Rate 89 (56 - 89)Respiratory rate: 16 (16 - 18)BP: 125/85 (120/75 - 156/96) -EXAM- GENERAL: Awake, alert, and oriented.HEAD: Normocephalic, atraumatic.NECK: No JVD, supple.LUNGS: Clear bilaterally with normal respiratory effort.HEART: Regular rate and rhythm, normal S1, S2.ABDOMEN: Soft, non-tender, non-distended, bowel sounds present.MUSCULOSKELETAL: Bilateral lower extremity weakness.EXTREMITIES: No clubbing, no cyanosis, no edema.NEUROLOGICAL: No focal deficits, cranial nerves II-XII grossly intact. -- DATA -- MEDICATIONS PREGABALIN 150 MG PO BIDPANTOPRAZOLE 40 MG PO DAILYPROMETHAZINE HCL with/in SODIUM CHLORIDE 50 mL BAG 12.5 MG IV Q6H PRNZOLPIDEM TARTRATE 5 MG PO BEDTIME PRNpolyethylene glycoL 3350 1 PKT PO DAILYACETAMINOPHEN 650 MG PO Q4H PRNdiphenhydrAMINE HCL 25 MG PO Q6H PRNhydrALAZINE HCL 10 MG IV Q2H PRNclonazePAM 2 MG PO BIDLEVOTHYROXINE SODIUM 200 MCG PO DAILY@0600ENOXAPARIN SODIUM 40 MG SUBQ F83LITMEAujtpeo BITARTRATE/APAP 2 TAB PO Q4H PRNONDANSETRON HCL/PF 4 MG IV Q6H PRNACETAMINOPHEN 650 MG PO Q4H PRNceFAZolin with/in SODIUM CHLORIDE 0.9% 1 GM IV X8VimqFIQav HCL 50 MG PO Q6H PRNHYDROmorphone HCL 0.5 MG IV Q4H PRNoxyCODONE HCL/ACETAMINOPHEN 2 TAB PO Q4H PRNmorphine SULFATE 4 MG IV Q4H PRNnalOXone HCL 0.2 MG IV ASDIR PRNFLUoxetine HCL 60 MG PO DAILYDOCUSATE SODIUM 100 MG PO BIDHYDROcodone BITARTRATE/APAP 2 TAB PO Q4H PRNlisinopriL 20 MG PO DAILY Signed in PatientKeeper by Sharon Agudelo MD on 10/21/22 at 11:43 at 1143ATTENTION EDITS and/or ADDENDA must be made in Patient Keeper for this note. Edits and ammendments created in [email or web address] are not visible in Patient Keeper or the legal medical record ([facility]). [facility] #: [id number] OF REPORTPRProgress [id number] ailable for patient [id number] [facility] 2022-10-21 10:41:00 [id number]- [id number] [place] [address] PATIENT NAME: CYNDIE PENN ADMIT DATE: 10/17/22ACCOUNT NO: [id number] ROOM NO: [id number] AGE: 46 REPORT TYPE: PROGRESS NOTE SEX: F ADMITTING PHYSICIAN:Sharon Agudelo MD ATTENDING PHYSICIAN:Sharon Agudelo MD DATE: 10/20/2022 PAIN MANAGEMENT PROGRESS NOTE CONSULTING PHYSICIAN: Fatou Baker DO SPECIALTY: Pain management. Late entry. SUBJECTIVE: Ms. Penn is still waiting for surgery. The surgery was delayed. She is a little upset about this. It is supposed to be later today, around 2-3 o'clock. Using the IV Dilaudid. Pain is okay, but very anxious about having her surgery and hopefully she can make her recovery and put this behind her. PHYSICAL EXAMINATION:VITAL SIGNS: Stable.GENERAL: Awake and alert, in no acute distress.LUNGS: Normal respiratory rate and effort.ABDOMEN: Soft.EXTREMITIES: No edema in the lower extremities. ASSESSMENT: Fall, hip fracture. PLAN: To go to the OR today with Dr. Menchaca. Continue the IV Dilaudid. We will be happy to follow up. Dictated By: Fatou Baker DO Date Dictated: 10/21/2022 10:41:55Date Transcribed: 10/21/2022 11:22:29RM/MITALI/RSHJob #: [id number] ID: [id number] by Fatou Baker DO On 10/30/2022 11:12:48 AM at 1112 PATIENT NAME: CYNDIE PENN [id number]:22:00P.[id number] ble for patient gnubQSIDAZYWOAVPWZ6691-57-82T48:13:19 [facility] 2022-10-20 17:06:00 [id number]- 07T17:06:00 [facility] ([facility]) Internal Med. Progress Note REPORT #: [id number] REPORT STATUS: Signed DATE: 10/20/22 TIME: 1706 PATIENT: CYNDIE PENN UNIT #: [id number] #: [id number] ROOM #: P.0702 BED: 1 : 76 AGE: 46 SEX: F ATTEND: Sharon Agudelo MD ADM AUTHOR: Sharon Agudelo MD ATTENTION EDITS and/or ADDENDA must be made in Patient Keeper for this note. Edits and ammendments created in [employer] are not visible in Patient Keeper or the legal medical record (HPF). -- ASSESSMENT AND PLAN -- GENERAL ASSESSMENT:1. Right hip Fracture with nonunionOrthopedic surgery following Dr Ferguson today, NPOCardiology clearance obtained 2. Hypertension, continue lisinopril. Hold parameters in place.Hydralazine IV as needed for elevated BPEchocardiogram pendingCardiology consulted- Dr Katz 3. Chronic pain syndrome, pain management.- Dr BakerCurrently patient on [place] morphine and Tylenol 4. Bipolar disorder, continue Prozac. Denies SI/HI. Follow up Psych. 5. Hypothyroidism, continue levothyroxine. Monitor TSH.[facility] 49Increased synthroid to 200 mcg po dailyCheck free T3 and free T4 6. DVT prophylaxis.Lovenox subcu -- SUBJECTIVE -- CHIEF COMPLAINT:Events noted, n.p.o. for surgical intervention, awake and alert, -REVIEW OF SYSTEMS- GENERAL: Negative for fever.RESPIRATORY: Negative for dyspnea.CARDIOVASCULAR: Negative for chest pain.GASTROINTESTINAL: Negative for abdominal pain.MUSCULOSKELETAL: Positive for hip pain.SKIN: Negative for rashes. -- OBJECTIVE -- VITALS (10/19 17:07 - 10/20 17:07):Temperature C: 36.9 (36.4 - 36.9)Temperature source: OralPulse Rate 71 (56 - 77)Respiratory rate: 16 (16 - 18)BP: 136/82 (134/79 - 163/98) -EXAM- GENERAL: Awake, alert, and oriented.HEAD: Normocephalic, atraumatic.NECK: No JVD, supple.LUNGS: Clear bilaterally with normal respiratory effort.HEART: Regular rate and rhythm, normal S1, S2.ABDOMEN: Soft, non-tender, non-distended, bowel sounds present.MUSCULOSKELETAL: Bilateral lower extremity weakness.EXTREMITIES: No clubbing, no cyanosis, no edema.NEUROLOGICAL: No focal deficits, cranial nerves II-XII grossly intact. -- DATA -- MEDICATIONS PREGABALIN 150 MG PO BIDPROMETHAZINE HCL with/in SODIUM CHLORIDE 50 mL BAG 12.5 MG IV Q6H PRNZOLPIDEM TARTRATE 5 MG PO BEDTIME PRNpolyethylene glycoL 3350 1 PKT PO DAILYACETAMINOPHEN 650 MG PO Q4H PRNdiphenhydrAMINE HCL 25 MG PO Q6H PRNhydrALAZINE HCL 10 MG IV Q2H PRNclonazePAM 2 MG PO BIDLEVOTHYROXINE SODIUM 200 MCG PO DAILY@0600ENOXAPARIN SODIUM 40 MG SUBQ [id number] HCL/PF 4 MG IV Q6H PRNoxyCODONE HCL/ACETAMINOPHEN 1 TAB PO Q4H PRNtraMADol HCL 50 MG PO Q6H PRNHYDROmorphone HCL 0.5 MG IV Q4H PRNFLUoxetine HCL 60 MG PO DAILYlisinopriL 20 MG PO DAILY LABS BASIC METABOLIC PANEL (10/20/22 06:02)SODIUM 135L LPOTASSIUM 4.3CHLORIDE 101CARBON DIOXIDE 29GLUCOSE 71L LBLOOD UREA NITROGEN 9GLOMERULAR FILTRATION RATE >=60 max estimateCREATININE 0.80CALCIUM 8.8 CBC W/AUTO DIFF (10/20/22 06:02)WHITE BLOOD CELL 5.4RED BLOOD CELL 4.33 HEMOGLOBIN 12.6HEMATOCRIT 39.0MEAN CELL VOLUME 90.1MEAN CELL HGB 29.1MEAN CELL HGB CONCENTRATION 32.3 LRED CELL DISTRIBUTION WIDTH 13.9PLATELET COUNT 332MEAN PLATELET VOLUME 10.3NEUTROPHIL % 50.1LYMPHOCYTE % 37.8MONOCYTE % 8.0EOSINOPHIL % 2.6BASOPHIL % 1.3NEUTROPHIL # 2.71LYMPHOCYTE # 2.04MONOCYTE # 0.43EOSINOPHIL # 0.14BASOPHIL # 0.07 Signed in PatientKeeper by Sharon Agudelo MD on 10/20/22 at 17:08 at 1708ATTENTION EDITS and/or ADDENDA must be made in Patient Keeper for this note. Edits and ammendments created in [employer] are not visible in Patient Keeper or the legal medical record (HPF). RPT #: [id number] OF REPORTPRProgress [id number]:06:00P.[id number] ailable for patient lifaJCFWBTGILCFFGO1607-00-04O61:09:20 [facility] 2022-10-20 07:51:00 [id number] 07T07:51:00 [facility] ([facility]) Endocrinology Progress Note REPORT #: [id number] REPORT STATUS: Signed DATE: 10/20/22 TIME: 750 PATIENT: CYNDIE PENN UNIT #: [id number] #: [id number] ROOM #: P.0702 BED: 1 : 76 AGE: 46 SEX: F ATTEND: Sharon Agudelo MD ADM AUTHOR: Tamara Zhu ATTENTION EDITS and/or ADDENDA must be made in Patient Keeper for this note. Edits and ammendments created in [employer] are not visible in Patient Keeper or the legal medical record (HPF). -- ASSESSMENT AND PLAN -- GENERAL ASSESSMENT:1. Hypothyroidism- TSH 46.89.- placed on levothyroxine 200 mcg 1 tab PO QD- Monitor HR, BP. 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 Right hip pain- Continue pain management 3. Right hip fracture- Dr Menchaca following 4. Hypertension- continue lisinopril. Monitor BP 5. Hypoglucemia- 10/20 BS 72. NPO after midnight because of surgery this am -- SUBJECTIVE -- PATIENT NARRATIVE:Events noted -REVIEW OF SYSTEMS- GENERAL: Negative for fever, malaise, fatigue.EYES: Negative for blurry vision. No diplopia.EARS/NOSE/THROAT: Negative for sore throat. No otalgia. No rhinorrhea.RESPIRATORY: Negative for dyspnea or wheeze. No cough.CARDIOVASCULAR: Negative for chest pain or palpitations. No extremity swelling.GASTROINTESTINAL: Negative for abdominal pain or nausea. No emesis. No diarrhea.GENITOURINARY: Negative for dysuria, frequency, or urgency. No gross hematuria.MUSCULOSKELETAL: R hip painSKIN: Negative for rashes. No pruritus.NEUROLOGICAL: Negative for headache. No vertigo. Denies paresthesias. PSYCHIATRIC: Negative for specific complaints.ENDOCRINE: Negative for cold intolerance, heat intolerance, polyphagia, polydipsia, polyuria, weight change, fatigue.HEMATALOGIC / LYMPHORETICULAR: Negative for excessive bleeding, unusual masses.ALLERGIC / IMMUNOLOGIC: Negative for heat/cold intolerance, polydipsia, or polyuria. -- OBJECTIVE -- VITALS (10/19 07:51 - 10/20 07:51):Temperature C: 36.7 (36.4 - 37.3)Temperature source: OralPulse Rate 77 (59 - 77)Respiratory rate: 18 (17 - 18)BP: 163/98 (141/80 - 163/98) -EXAM- GENERAL: Well developed, well nourished, in no apparent distress.HEAD: Normocephalic, atraumatic.EYES: PERRLEARS: grossly normal hearing.NOSE: No deformity, no discharge, no inflammation, no lesions.MOUTH: Oropharynx without deformities or lesions, normal mucosa..NECK: No masses, no thyromegaly, no abnormal cervical nodes, trachea midline.CHEST: Grossly normal appearance.LUNGS: Clear bilaterally with normal respiratory effort.HEART: Regular rate and rhythm, normal S1, S2, no murmurs, no rubs, no gallops, no clicks.ABDOMEN: Soft, non-tender, no organomegaly, no masses noted.MUSCULOSKELETAL: No deformity, no scoliosis noted of thoracic or lumbar spine, joint ROM grossly normal, normal gait and station.EXTREMITIES: No clubbing, no cyanosis, no edema.NEUROLOGICAL: No focal deficitsPULSES: Pulses normal in all extremities.GENITOURINARY: Normal external genitalia.SKIN: Intact without significant lesions, or rashes.PSYCHIATRIC: Alert and oriented to time, person, place. Normal mood and affect, intact judgment and insight. -- DATA -- MEDICATIONS PREGABALIN 150 MG PO BIDPROMETHAZINE HCL with/in SODIUM CHLORIDE 50 mL BAG 12.5 MG IV Q6H PRNZOLPIDEM TARTRATE 5 MG PO BEDTIME PRNpolyethylene glycoL 3350 1 PKT PO DAILYACETAMINOPHEN 650 MG PO Q4H PRNdiphenhydrAMINE HCL 25 MG PO Q6H PRNhydrALAZINE HCL 10 MG IV Q2H PRNclonazePAM 2 MG PO BIDLEVOTHYROXINE SODIUM 200 MCG PO DAILY@0600 ENOXAPARIN SODIUM 40 MG SUBQ [id number] HCL 0.5 MG IV Q4H PRNONDANSETRON HCL/PF 4 MG IV Q6H PRNoxyCODONE HCL/ACETAMINOPHEN 1 TAB PO Q4H PRNtraMADol HCL 50 MG PO Q6H PRNFLUoxetine HCL 60 MG PO DAILYlisinopriL 20 MG PO DAILY LABS BASIC METABOLIC PANEL (10/20/22 06:02)SODIUM 135L LPOTASSIUM 4.3CHLORIDE 101CARBON DIOXIDE 29GLUCOSE 71L LBLOOD UREA NITROGEN 9GLOMERULAR FILTRATION RATE >=60 max estimateCREATININE 0.80CALCIUM 8.8 CBC W/AUTO DIFF (10/20/22 06:02)WHITE BLOOD CELL 5.4RED BLOOD CELL 4.33HEMOGLOBIN 12.6HEMATOCRIT 39.0MEAN CELL VOLUME 90.1MEAN CELL HGB 29.1MEAN CELL HGB CONCENTRATION 32.3 LRED CELL DISTRIBUTION WIDTH 13.9PLATELET COUNT 332MEAN PLATELET VOLUME 10.3NEUTROPHIL % 50.1LYMPHOCYTE % 37.8MONOCYTE % 8.0EOSINOPHIL % 2.6BASOPHIL % 1.3NEUTROPHIL # 2.71LYMPHOCYTE # 2.04MONOCYTE # 0.43EOSINOPHIL # 0.14BASOPHIL # 0.07 -- ATTESTATION -- TIME SPENT ON PATIENT CARE: - Direct 15 minutes - Counseling 5 minutes - Coordination of Care 15 minutes Signed in PatientKeeper by TAMARA ZHU on 10/20/22 at 07:52 Cosigned by LUDMILA CHOPRA MD on 11/08/22 at 19:43 at 1943 at 1943ATTENTION EDITS and/or ADDENDA must be made in Patient Keeper for this note. Edits and ammendments created in [employer] are not visible in Patient Keeper or the legal medical record (HPF). [facility] #: [id number] OF REPORTPRProgress [id number]:51:00P.BK-[id number] ailable for patient sirhFPGBBYVMPRKSQP4146-68-27W16:44:33 [facility] 2022-10-19 16:27:00 [id number] 06T16:27:[id number] [facility] [address] [place] [address] PATIENT NAME: CYNDIE PENN ADMIT DATE: 10/17/22ACCOUNT NO: [id number] ROOM NO: P.0702 AGE: 46 REPORT TYPE: PROGRESS NOTE SEX: F ADMITTING PHYSICIAN:Sharon Agudelo MD ATTENDING PHYSICIAN:Sharon Agudelo MD DATE: PAIN MANAGEMENT PROGRESS NOTE CONSULTING PHYSICIAN: Fatou Baker DO SPECIALTY: Pain management. CHIEF COMPLAINT: Hip pain. SUBJECTIVE: Surgery was delayed until tomorrow. She was a little upset about this. She states she waited a long time, but other than that, doing okay, sitting, eating her dinner, resting comfortably. Alternating the oxycodone and IV Dilaudid, both are helpful with the pain. No other side effects reported. PHYSICAL EXAMINATION:VITAL SIGNS: Blood pressure 147/80, respirations 18, heart rate 70, temperature____.GENERAL: Awake and alert, in no acute distress.LUNGS: Normal respiratory rate and effort.ABDOMEN: Soft. ASSESSMENT: Right hip fracture nonunion. PLAN: Surgery tomorrow. Surgery has been delayed. Continue oxycodone, which was switched from hydrocodone and IV Dilaudid. We will be happy to follow up. Dictated By: Fatou Baker DO Date Dictated: 10/19/2022 16:27:04Date Transcribed: 10/19/2022 16:59:33MARI/MITALI/Mahsa #: [id number] ID: [id number] by Fatou Baker DO On 10/30/2022 11:12:47 AM at 1112 PATIENT NAME: CYNDIE PENN [id number]:59:00P.[id number] ble for patient [id number]:13:18 [facility] 2022-10-19 12:15:00 [id number] 06T12:15:00 [facility] ([facility] Internal Med. Progress Note REPORT #: [id number] REPORT STATUS: Signed DATE: 10/19/22 TIME: 1215 PATIENT: CYNDIE PENN UNIT #: [id number] #: [id number] ROOM #: [facility]02 BED: 1 : 76 AGE: 46 SEX: F ATTEND: Sharon Agudelo MD ADM AUTHOR: Sharon Agudelo MD ATTENTION EDITS and/or ADDENDA must be made in Patient Keeper for this note. Edits and ammendments created in [employer] are not visible in Patient Keeper or the legal medical record (HPF). -- ASSESSMENT AND PLAN -- GENERAL ASSESSMENT:1. Right hip Fracture with nonunionOrthopedic surgery following Dr Molinaology consult for cardiac clearancePlan is for SAMUEL 2. Hypertension, continue lisinopril. Hold parameters in place.Hydralazine IV as needed for elevated BPEchocardiogram pendingCardiology consulted 3. Chronic pain syndrome, pain management.- Dr Marinently patient on [place] morphine and Tylenol 4. Bipolar disorder, continue Prozac. Denies SI/HI. Follow up Psych. 5. Hypothyroidism, continue levothyroxine. Monitor TSH.Endocrine consultedTSH 49Increased synthroid to 200 mcg po dailyCheck free T3 and free T4 6. DVT prophylaxis.Lovenox subcu -- SUBJECTIVE -- CHIEF COMPLAINT:Events noted, n.p.o. for surgical intervention, awake and alert, -REVIEW OF SYSTEMS- GENERAL: Negative for fever.RESPIRATORY: Negative for dyspnea.CARDIOVASCULAR: Negative for chest pain.GASTROINTESTINAL: Negative for abdominal pain.MUSCULOSKELETAL: Positive for hip pain.SKIN: Negative for rashes. -- OBJECTIVE -- VITALS (10/18 07:33 - 10/19 07:33):Temperature C: 36.7 (35.8 - 36.7)Temperature source: OralPulse Rate 70 (63 - 78)Respiratory rate: 18 (16 - 18)BP: 146/86 (109/73 - 147/89) -EXAM- GENERAL: Awake, alert, and oriented.HEAD: Normocephalic, atraumatic.NECK: No JVD, supple.LUNGS: Clear bilaterally with normal respiratory effort.HEART: Regular rate and rhythm, normal S1, S2.ABDOMEN: Soft, non-tender, non-distended, bowel sounds present.MUSCULOSKELETAL: Bilateral lower extremity weakness.EXTREMITIES: No clubbing, no cyanosis, no edema.NEUROLOGICAL: No focal deficits, cranial nerves II-XII grossly intact. -- DATA -- MEDICATIONS ENOXAPARIN SODIUM 40 MG SUBQ [id number] HCL 0.5 MG IV Q4H PRNONDANSETRON HCL/PF 4 MG IV Q6H PRNoxyCODONE HCL/ACETAMINOPHEN 1 TAB PO Q4H PRNtraMADol HCL 50 MG PO Q6H PRNPREGABALIN 150 MG PO BIDFLUoxetine HCL 60 MG PO DAILYPROMETHAZINE HCL with/in SODIUM CHLORIDE 50 mL BAG 12.5 MG IV Q6H PRNlisinopriL 20 MG PO DAILYZOLPIDEM TARTRATE 5 MG PO BEDTIME PRNpolyethylene glycoL 3350 1 PKT PO DAILYACETAMINOPHEN 650 MG PO Q4H PRNdiphenhydrAMINE HCL 25 MG PO Q6H PRNhydrALAZINE HCL 10 MG IV Q2H PRNclonazePAM 2 MG PO BIDLEVOTHYROXINE SODIUM 200 MCG PO DAILY@0600 LABS CBC W/AUTO DIFF (10/19/22 05:55)WHITE BLOOD CELL 6.6RED BLOOD CELL 4.20HEMOGLOBIN 12.0HEMATOCRIT 37.0MEAN CELL VOLUME 88.1MEAN CELL HGB 28.6MEAN CELL HGB CONCENTRATION 32.4 LRED CELL DISTRIBUTION WIDTH 13.8PLATELET COUNT 305MEAN PLATELET VOLUME 10.2NEUTROPHIL % 54.6LYMPHOCYTE % 33.4MONOCYTE % 8.8EOSINOPHIL % 2.0 BASOPHIL % 0.9NEUTROPHIL # 3.62LYMPHOCYTE # 2.21MONOCYTE # 0.58EOSINOPHIL # 0.13BASOPHIL # 0.06 Signed in PatientKeeper by Sharon Agudelo MD on 10/19/22 at 12:19 at 1219ATTENTION EDITS and/or ADDENDA must be made in Patient Keeper for this note. Edits and ammendments created in [facility] are not visible in Patient Keeper or the legal medical record ([facility]). [facility] #: [id number] OF REPORTPRProgress [id number]:15:00P.BP-[id number] ailable for patient dmzrSBJIPGNBYILMPT8388-26-32I80:21:02 [facility] 2022-10-19 08:21:00 [id number] 06T08:21:[id number] [facility] [address] [place], [place] [address]HOFMVMW NAME: CYNDIE PENN ADMIT DATE: 10/17/22ACCOUNT NO: [id number] ROOM NO: [facility] AGE: 46 REPORT TYPE: eECHOCARDIOGRAM REPORT SEX: F ADMITTING PHYSICIAN: Sharon Agudelo MD ATTENDING PHYSICIAN: Sharon Agudelo MD *[facility]*[address] [place], [place] [address]I[facility] Transthoracic Echocardiogram Patient: Tatiana Pennudshelley Date: 10/18/2022 BP: 147 / 75 [id number] 1975 Age: 46 Height: 64 in / 162.6 cmAccession#: [id number] Gender: F Weight: 151.7 lb / 68.9 kgBMI/BSA: 26.1 kg/m 2 / 1.74 m 2 *Ordering Physician: * Sharon Agudelo *Interpreting Physician: * João Katz M.D.*Community Living Coach: * Fartun Eaton Indications: Congestive Heart Failure. Study data: Transthoracic echocardiogram. Procedure:Transthoracic echocardiography was performed. Images were obtainedusing a [employer] E95 cardiac ultrasound machine. M-mode, edudqqoy2P, complete spectral Doppler, and color Doppler. Location:Bedside. Patient status: Inpatient. Patient room number: 702.Study status: Routine. Findings Left ventricle: The cavity size is normal. Wall thickness isnormal. Systolic function is normal. The estimated ejectionfraction is 55-60%. Wall motion is normal; there are no regionalwall motion abnormalities. Left ventricular diastolic functionparameters are normal.Right ventricle: The cavity size is normal. Systolic function is PATIENT NAME: CYNDIE PENN normal.Left atrium: The atrium is normal in size.Right atrium: The atrium is normal in size.Aorta: Aortic root: The aortic root is normal in size.Aortic valve: The valve is structurally normal. The valve istrileaflet. There is no evidence of stenosis. There is noregurgitation.Mitral valve: The valve is structurally normal. There is noevidence of stenosis. There is no regurgitation.Tricuspid valve: The valve is structurally normal. There is noregurgitation.Pulmonic valve: The valve is structurally normal. There is noregurgitation.Pericardium: There is no pericardial effusion.Pulmonary arteries:The main pulmonary artery is normal-sized.Systemic veins:Inferior vena cava: The vessel is normal in size. Measurements Left ventricle Value Ref JESSEE, LAX [...] 55 ml/m 2 PATIENT NAME: CYNDIE PENN Ventricular septum Value Ref IVS, ED 0.9 [...] valve Value Ref PATIENT NAME: CYNDIE PENN TR peak v 2.31 m/sec <=2.8 Peak RV-RA grad, 21 mm Hg S Aortic root Value Ref Root diam 2.9 cm <3.9 Root diam, ED MM 3.33 cm Ascending aorta Value Ref AAo AP diam, S 2.7 cm AAo AP diam/bsa, 1.6 cm/m 2 S Conclusions Summary: Left ventricle: The cavity size is normal. Wallthickness is normal. Systolic function is normal. The estimatedejection fraction is 55-60%. Wall motion is normal; there are noregional wall motion abnormalities. Left ventricular diastolicfunction parameters are normal. Prepared and electronicallysigned by João Katz M.D.10/19/2022 08:21 at 0821 PATIENT NAME: CYNDIE PENN :21:0 0P.[id number] for patient zejgHPRTINOHESATTK1184-98-72V50:22:26 [facility] 2022-10-19 07:20:00 [id number] 06T07:20:00 [facility] ([facility]) Endocrinology Progress Note REPORT #: [id number] REPORT STATUS: Signed DATE: 10/19/22 TIME: 719 PATIENT: CYNDIE PENN UNIT #: [id number] #: [id number] ROOM #: [facility] BED: 1 : 76 AGE: 46 SEX: F ATTEND: Sharon Agudelo MD ADM AUTHOR: Tamara Zhu APRNNP ATTENTION EDITS and/or ADDENDA must be made in Patient Keeper for this note. Edits and ammendments created in [employer] are not visible in Patient Keeper or the legal medical record (HPF). -- ASSESSMENT AND PLAN -- GENERAL ASSESSMENT:1. Hypothyroidism- TSH 46.89.- placed on levothyroxine 200 mcg 1 tab PO QD- Monitor HR, BP. 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 Right hip pain- Continue pain management 3. Right hip fracture- Dr Menchaca following 4. Hypertension- continue lisinopril. Monitor BP -- SUBJECTIVE -- PATIENT NARRATIVE:Events noted -REVIEW OF SYSTEMS- GENERAL: Negative for fever, malaise, fatigue.EYES: Negative for blurry vision. No diplopia.EARS/NOSE/THROAT: Negative for sore throat. No otalgia. No rhinorrhea.RESPIRATORY: Negative for dyspnea or wheeze. No cough.CARDIOVASCULAR: Negative for chest pain or palpitations. No extremity swelling.GASTROINTESTINAL: Negative for abdominal pain or nausea. No emesis. No diarrhea.GENITOURINARY: Negative for dysuria, frequency, or urgency. No gross hematuria.MUSCULOSKELETAL: R hip painSKIN: Negative for rashes. No pruritus.NEUROLOGICAL: Negative for headache. No vertigo. Denies paresthesias.PSYCHIATRIC: Negative for specific complaints.ENDOCRINE: Negative for cold intolerance, heat intolerance, polyphagia, polydipsia, polyuria, weight change, fatigue.HEMATALOGIC / LYMPHORETICULAR: Negative for excessive bleeding, unusual masses.ALLERGIC / IMMUNOLOGIC: Negative for heat/cold intolerance, polydipsia, or polyuria. -- OBJECTIVE -- VITALS (10/18 07:20 - 10/19 07:20):Temperature C: 35.8 (35.8 - 36.7)Temperature source: OralPulse Rate 68 (63 - 80)Respiratory rate: 17 (16 - 18)BP: 137/89 (109/73 - 147/94) -EXAM- GENERAL: Well developed, well nourished, in no apparent distress.HEAD: Normocephalic, atraumatic.EYES: PERRLEARS: grossly normal hearing.NOSE: No deformity, no discharge, no inflammation, no lesions.MOUTH: Oropharynx without deformities or lesions, normal mucosa..NECK: No masses, no thyromegaly, no abnormal cervical nodes, trachea midline.CHEST: Grossly normal appearance.LUNGS: Clear bilaterally with normal respiratory effort.HEART: Regular rate and rhythm, normal S1, S2, no murmurs, no rubs, no gallops, no clicks.ABDOMEN: Soft, non-tender, no organomegaly, no masses noted.MUSCULOSKELETAL: No deformity, no scoliosis noted of thoracic or lumbar spine, joint ROM grossly normal, normal gait and station.EXTREMITIES: No clubbing, no cyanosis, no edema.NEUROLOGICAL: No focal deficitsPULSES: Pulses normal in all extremities.GENITOURINARY: Normal external genitalia.SKIN: Intact without significant lesions, or rashes.PSYCHIATRIC: Alert and oriented to time, person, place. Normal mood and affect, intact judgment and insight. -- DATA -- MEDICATIONS ENOXAPARIN SODIUM 40 MG SUBQ [id number] HCL 0.5 MG IV Q4H PRNONDANSETRON HCL/PF 4 MG IV Q6H PRNoxyCODONE HCL/ACETAMINOPHEN 1 TAB PO Q4H PRNtraMADol HCL 50 MG PO Q6H PRNPREGABALIN 150 MG PO BIDFLUoxetine HCL 60 MG PO DAILYPROMETHAZINE HCL with/in SODIUM CHLORIDE 50 mL BAG 12.5 MG IV Q6H PRNlisinopriL 20 MG PO DAILYZOLPIDEM TARTRATE 5 MG PO BEDTIME PRNpolyethylene glycoL 3350 1 PKT PO DAILY ACETAMINOPHEN 650 MG PO Q4H PRNdiphenhydrAMINE HCL 25 MG PO Q6H PRNhydrALAZINE HCL 10 MG IV Q2H PRNclonazePAM 2 MG PO BIDLEVOTHYROXINE SODIUM 200 MCG PO DAILY@0600 LABS CBC W/AUTO DIFF (10/19/22 05:55)WHITE BLOOD CELL 6.6RED BLOOD CELL 4.20HEMOGLOBIN 12.0HEMATOCRIT 37.0MEAN CELL VOLUME 88.1MEAN CELL HGB 28.6MEAN CELL HGB CONCENTRATION 32.4 LRED CELL DISTRIBUTION WIDTH 13.8PLATELET COUNT 305MEAN PLATELET VOLUME 10.2NEUTROPHIL % 54.6LYMPHOCYTE % 33.4MONOCYTE % 8.8EOSINOPHIL % 2.0BASOPHIL % 0.9NEUTROPHIL # 3.62LYMPHOCYTE # 2.21MONOCYTE # 0.58EOSINOPHIL # 0.13BASOPHIL # 0.06 -- ATTESTATION -- TIME SPENT ON PATIENT CARE: - Direct 15 minutes - Counseling 5 minutes - Coordination of Care 15 minutes Signed in PatientKeeper by TAMARA ZHU on 10/19/22 at 07:24 Cosigned by LUDMILA CHOPRA MD on 11/08/22 at 19:43 at 1943 at 1943ATTENTION EDITS and/or ADDENDA must be made in Patient Keeper for this note. Edits and ammendments created in [facility] are not visible in Patient Keeper or the legal medical record (HPF). [facility] #: [id number] OF REPORTPRProgress [id number]:20:00P.SS-[id number] ailable for patient daexIDBICOOZAXWMGL6160-38-26Z50:44:41 [facility] 2022-10-18 13:15:00 [id number] 05T13:15:[id number] [facility] [address] [place] [address] PATIENT NAME: CYNDIE PENN ADMIT DATE: 10/17/22ACCOUNT NO: [id number] [facility] 46 REPORT TYPE: CONSULTATION SEX: F ADMITTING PHYSICIAN:Sharon Agudelo MD ATTENDING PHYSICIAN:Sharon Agudelo MD CONSULTATION DATE: PAIN MANAGEMENT CONSULTATION CONSULTING PHYSICIAN: Fatou Baker DO SPECIALTY: Pain management. CHIEF COMPLAINT: Right lower extremity pain. HISTORY OF PRESENT ILLNESS: A 46-year-old with history of right-sided hip pain and fracture. She states she fell. She states she could never find a surgeon that can operate that was within her network. 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 Seen by Dr. Menchaca. The plan is to go to the OR tomorrow. She states that she has been on Percocet at home, which I will check the prescription monitoring report. She sees a pain doctor. Here, beforeI had a chance to see her, I got numerous phone calls that the pain is not controlled. I increase the morphine to 2-4 mg. She says she gets fentanyl at [facility], now is better. She fell out of the bathtub, which significantly exacerbated her chronic pain, pain in the hip, going into the groin area on the right side. Currently using a wheelchair. She says that the morphine helps a little bit when it was increased to 4 mg, but not lasting long. The hydrocodone is not as effective as the oxycodone, which she normally takes at home. Pain rated to be severe. She is somewhat tearful. PAST MEDICAL HISTORY: Chronic hip fracture resulting in chronic pain, hypothyroidism, hypertension, ADHD, bipolar disorder. PAST SURGICAL HISTORY: Hysterectomy, laparoscopic cholecystectomy. SOCIAL HISTORY: Positive for recent tobacco use, 3 cigarettes a day, but has stopped. Negative for alcohol or illicit drugs. ALLERGIES: NONE. MEDICATIONS: MAR. REVIEW OF SYSTEMS: Positive for hip pain. Positive for groin pain. Positive for having to use a wheelchair. No chest pain or shortness of breath. No nausea, no vomiting. No hearing changes, no visual changes. PHYSICAL EXAMINATION:VITAL SIGNS: Blood pressure 109/73, heart rate 78, respirations 17, temperature PATIENT NAME: CYNDIE PENN 36.7.GENERAL: Awake and alert, in no acute distress.LUNGS: Normal respiratory rate and effort.ABDOMEN: Soft.EXTREMITIES: No edema in the lower extremities. Using wheelchair. ASSESSMENT: Hip fracture. PLAN: I am going to give her one dose of Toradol now, switch the morphine to Dilaudid, switch the [place] to Percocet. Go to the OR tomorrow. We will be happyto follow up and manage her postoperative pain. Dictated By: Fatou Baker DO Date Dictated: 10/18/2022 13:15:37Date Transcribed: 10/18/2022 15:26:14Liyah/Ezequiel #: [id number] ID: [id number] by Fatou Baker DO On 10/30/2022 11:12:47 AM at 1112 PATIENT NAME: CYNDIE PENN :26:00[facility] [id number] for patient utfrIQPSMQHERZSRAN6516-19-20O69:13:18 [facility] 2022-10-18 12:07:00 [id number] 05T12:07:00 [facility] ([facility]) Internal Med. Progress Note REPORT #: [id number] REPORT STATUS: Signed DATE: 10/18/22 TIME: 1207 PATIENT: CYNDIE PENN UNIT #: [id number] #: [id number] ROOM #: P0702 BED: 1 : 76 AGE: 46 SEX: F ATTEND: Sharon Agudelo MD ADM AUTHOR: Sharon Agudelo MD ATTENTION EDITS and/or ADDENDA must be made in Patient Keeper for this note. Edits and ammendments created in [employer] are not visible in Patient Keeper or the legal medical record (HPF). -- ASSESSMENT AND PLAN -- GENERAL ASSESSMENT:1. Right hip pathological fracture, as seen on CT. Ortho consulted.pain managementdiscussed with pt and familycardiology consulted for card clearancesurgery on ThursdsayOrtho followingLovenox 40 mg SQ daily 2. Hypertension, continue lisinopril. Hold parameters in place.Hydralazine IV as needed for elevated BPEchocardiogram pending 3. Chronic pain syndrome, pain management.- Dr Baker 4. Bipolar disorder, continue Prozac. Denies SI/HI. Follow up Psych. 5. Hypothyroidism, continue levothyroxine. Monitor TSH.Endocrine consultedTS 49Increased synthroid to 200 mcg po daily 6. DVT prophylaxis. -- SUBJECTIVE -- CHIEF COMPLAINT:Awake and alertcomplaints of right hip painno feverno chest pain discussed with pt and family -REVIEW OF SYSTEMS- GENERAL: Negative for fever.RESPIRATORY: Negative for dyspnea.CARDIOVASCULAR: Negative for chest pain.GASTROINTESTINAL: Negative for abdominal pain.MUSCULOSKELETAL: Positive for hip pain. SKIN: Negative for rashes. -- OBJECTIVE -- VITALS (10/17 12:07 - 10/18 12:07):Temperature C: 36.7 (36.5 - 37.1)Temperature source: OralPulse Rate 78 (63 - 80)Respiratory rate: 17 (16 - 17)BP: 109/73 (109/73 - 150/97) I/Os (10/17 07:00 - 10/18 07:00):Net 920Intake 920 -EXAM- GENERAL: Awake, alert, and oriented.HEAD: Normocephalic, atraumatic.NECK: No JVD, supple.LUNGS: Clear bilaterally with normal respiratory effort.HEART: Regular rate and rhythm, normal S1, S2.ABDOMEN: Soft, non-tender, non-distended, bowel sounds present.MUSCULOSKELETAL: Bilateral lower extremity weakness.EXTREMITIES: No clubbing, no cyanosis, no edema.NEUROLOGICAL: No focal deficits, cranial nerves II-XII grossly intact. -- DATA -- MEDICATIONS ENOXAPARIN SODIUM 40 MG SUBQ B29Cmkcitjpy SULFATE 4 MG IV Q4H PRNONDANSETRON HCL/PF 4 MG IV Q6H PRNtraMADol HCL 50 MG PO Q6H PRNPREGABALIN 150 MG PO BIDHYDROcodone BITARTRATE/APAP 1 TAB PO Q4H PRNFLUoxetine HCL 60 MG PO DAILYPROMETHAZINE HCL with/in SODIUM CHLORIDE 50 mL BAG 12.5 MG IV Q6H PRNlisinopriL 20 MG PO DAILYZOLPIDEM TARTRATE 5 MG PO BEDTIME PRNpolyethylene glycoL 3350 1 PKT PO DAILYACETAMINOPHEN 650 MG PO Q4H PRNdiphenhydrAMINE HCL 25 MG PO Q6H PRNhydrALAZINE HCL 10 MG IV Q2H PRNclonazePAM 2 MG PO BIDmorphine SULFATE 2 MG IV Q4H PRNLEVOTHYROXINE SODIUM 200 MCG PO DAILY@0600 LABS T4F (10/17/22 17:10)T4 FREE 0.68 L Signed in PatientKeeper by Sharon Agudelo MD on 10/18/22 at 12:08 at 1208ATTENTION EDITS and/or ADDENDA must be made in Patient Keeper for this note. Edits and ammendments created in [employer] are not visible in Patient Keeper or the legal medical record ([facility]). RPT #: [id number] OF REPORTPRProgress [id number]:07:00P.GB-[id number] ailable for patient [id number]:09:13 [facility] 2022-10-18 07:39:00 [id number] 05T07:39:00 [facility] ([facility]) Endocrinology Consultation REPORT #: [id number] REPORT STATUS: Signed DATE: 10/18/22 TIME: 738 PATIENT: CYNDIE PENN UNIT #: [id number] #: [id number] ROOM #: P.0702 BED: 1 : 76 AGE: 46 SEX: F ATTEND: Sharon Agudelo MD [facility] AUTHOR: Tamara Zhu APRNNP ATTENTION EDITS and/or ADDENDA must be made in Patient Keeper for this note. Edits and ammendments created in [employer] are not visible in Patient Keeper or the legal medical record ([facility]). -- ASSESSMENT AND PLAN -- GENERAL ASSESSMENT:1. Hypothyroidism- TSH 46.89.- Will place on levothyroxine 200 mcg 1 tab PO QD- Monitor HR, BP 2. Right hip pain- Continue pain management3. Right hip fracture- Dr Menchaca following 4. Hypertension- continue lisinopril. Monitor BP -- HISTORY -- CONSULT REQUESTED BY:Sharon Agudelo MD DATE/TIME AT BEDSIDE:2022-10-18 07:41 REASON FOR CONSULT:Hypothyroidism CHIEF COMPLAINT:Hip pain post fall HPI: This is a 46 year old female with past medical history of bipolar disorder ADHD who presented to [facility] ER for evaluation of right-sided hip pain. she fell10/15 onto her right hip. She also hit her right shoulder and right knee. Ofnote, patient was seen on 10/11 and was admitted overnight at [facility].Orthopedics evaluated her and noted longstanding/chronic pain with left femoralneck fracture and has been seen at multiple different ED's for falls. CT pelvisrevealed chronic right femoral neck fracture in nonunion. No acute fracture isseen. X-ray right hip revealed lytic lesion at the right greatertrochanter/femoral neck with underlying pathologic fracture. Right shoulder x-ray revealed no acute fracture or malignment. TSH 46.89. Patient takeslevothyroxine 200 mcg a recent increase from 150 mcg because she said she ischronically hypothyroid and her PCP cant get her levels to normal. We areconsulted to manage this patient's hypothyroidism. Thank you for consultingyour. PAST MEDICAL HISTORY:Bipolar disorder, ADHD, anxiety, chronic pain syndrome, hypothyroidism,hypertension PAST SURGICAL HISTORY:Hysterectomy, lap gino -- ALLERGIES/HOME MEDS -- ALLERGIES:No Known Allergies (UNKNOWN - Allergy) HOME MEDICATIONS:clonazePAM disintegrating tablet 2 MG PO BIDLyrica cap (pregabalin) 150 MG PO BID -- SUBJECTIVE -- -REVIEW OF SYSTEMS- GENERAL: Negative for fever, malaise, fatigue.EYES: Negative for blurry vision. No diplopia.EARS/NOSE/THROAT: Negative for sore throat. No otalgia. No rhinorrhea.RESPIRATORY: Negative for dyspnea or wheeze. No cough.CARDIOVASCULAR: Negative for chest pain or palpitations. No extremity swelling.GASTROINTESTINAL: Negative for abdominal pain or nausea. No emesis. No diarrhea.GENITOURINARY: Negative for dysuria, frequency, or urgency. No gross hematuria.MUSCULOSKELETAL: R hip painSKIN: Negative for rashes. No pruritus.NEUROLOGICAL: Negative for headache. No vertigo. Denies paresthesias.PSYCHIATRIC: Negative for specific complaints.ENDOCRINE: Negative for cold intolerance, heat intolerance, polyphagia, polydipsia, polyuria, weight change, fatigue.HEMATALOGIC / LYMPHORETICULAR: Negative for excessive bleeding, unusual masses.ALLERGIC / IMMUNOLOGIC: Negative for heat/cold intolerance, polydipsia, or polyuria. -- OBJECTIVE -- VITALS (10/17 07:40 - 10/18 07:40):Temperature C: 36.6 (36.3 - 37.1)Temperature source: OralPulse Rate 80 (63 - 80)Respiratory rate: 17 (16 - 17)BP: 145/94 (133/82 - 150/97) I/Os (10/17 07:00 - 10/18 07:00):Net 920 Intake 920 -EXAM- GENERAL: Well developed, well nourished, in no apparent distress.HEAD: Normocephalic, atraumatic.EYES: PERRLEARS: grossly normal hearing.NOSE: No deformity, no discharge, no inflammation, no lesions.MOUTH: Oropharynx without deformities or lesions, normal mucosa..NECK: No masses, no thyromegaly, no abnormal cervical nodes, trachea midline.CHEST: Grossly normal appearance.LUNGS: Clear bilaterally with normal respiratory effort.HEART: Regular rate and rhythm, normal S1, S2, no murmurs, no rubs, no gallops, no clicks.ABDOMEN: Soft, non-tender, no organomegaly, no masses noted.MUSCULOSKELETAL: No deformity, no scoliosis noted of thoracic or lumbar spine, joint ROM grossly normal, normal gait and station.EXTREMITIES: No clubbing, no cyanosis, no edema.NEUROLOGICAL: No focal deficitsPULSES: Pulses normal in all extremities.GENITOURINARY: Normal external genitalia.SKIN: Intact without significant lesions, or rashes.PSYCHIATRIC: Alert and oriented to time, person, place. Normal mood and affect, intact judgment and insight. -- DATA -- MEDICATIONS ENOXAPARIN SODIUM 40 MG SUBQ Y25Ceeqbimxx SULFATE 4 MG IV Q4H PRNONDANSETRON HCL/PF 4 MG IV Q6H PRNtraMADol HCL 50 MG PO Q6H PRNPREGABALIN 150 MG PO BIDHYDROcodone BITARTRATE/APAP 1 TAB PO Q4H PRNFLUoxetine HCL 60 MG PO DAILYPROMETHAZINE HCL with/in SODIUM CHLORIDE 50 mL BAG 12.5 MG IV Q6H PRNlisinopriL 20 MG PO DAILYZOLPIDEM TARTRATE 5 MG PO BEDTIME PRNpolyethylene glycoL 3350 1 PKT PO DAILYACETAMINOPHEN 650 MG PO Q4H PRNdiphenhydrAMINE HCL 25 MG PO Q6H PRNLEVOTHYROXINE SODIUM 200 MCG PO DAILY@0600hydrALAZINE HCL 10 MG IV Q2H PRNclonazePAM 2 MG PO BIDmorphine SULFATE 2 MG IV Q4H PRN LABS TSH (10/17/22 04:21)THYROID STIMULATING HORMONE 46.89 H T4F (10/17/22 17:10) T4 FREE 0.68 L -- ATTESTATION -- TIME SPENT ON PATIENT CARE: - Direct 20 minutes - Counseling 5 minutes - Coordination of Care 20 minutes Signed in PatientKeeper by TAMARA ZHU on 10/18/22 at 07:53 Cosigned by LUDMILA CHOPRA MD on 11/08/22 at 19:44 at 1944 at 1944ATTENTION EDITS and/or ADDENDA must be made in Patient Keeper for this note. Edits and ammendments created in [facility] are not visible in Patient Keeper or the legal medical record (HPF). [facility] #: [id number] OF [id number]:39:00P.PK-NO [id number] for patient [id number]:44:51 [facility] 2022-10-17 23:09:00 [id number] 04T23:09:135553-5641 [facility] [address] [place] [address] PATIENT NAME: CYNDIE PENN ADMIT DATE: 10/17/22ACCOUNT NO: [id number] ROOM NO: P.0702 AGE: 46 REPORT TYPE: CONSULTATION SEX: F ADMITTING PHYSICIAN:Sharon Agudelo MD ATTENDING PHYSICIAN:Sharon Agudelo MD CONSULTATION DATE: 10/17/2022 FABRIC NORMALIZER: Myself, Dr. Menchaca, orthopedics. HISTORY OF PRESENT ILLNESS: This is a 46-year-old who I think has been to a fewERs, at least [facility], but she had mentioned other ones as well and it sounds like she has had right hip pain and that is why she came in with. She has been unable to just get fixed. REVIEW OF SYSTEMS: There is history of bipolar, ADHD, chronic pain problems, decreased thyroid, hypotension, previous laparoscopic cholecystectomy as well asa hysterectomy. No other heart, lung, GI, or endocrine. PHYSICAL EXAMINATION: She has normal toe motion, normal sensation. Capillary refill is less than 3 seconds and the skin is intact. Review of the CT and plain x-ray shows a right femoral neck fracture with kind of a collapse of close to 2 cm. ASSESSMENT AND PLAN: We discussed with her potentially the discharge and getting rescheduled from clinic. Unfortunately, she does not believe she can tolerate it any further. I told her that we could do the total hip maybe on . There is a three times infection rate since she has been in the hospital, then coming in and doing as an outpatient. She is willing to take that risk. So, we are going to go ahead and put her on for to do a right total hip arthroplasty. Thank you again for the kind consultation. If you have any comments or questions, please give me a call. Dictated By: Balbir Menchaca MD Date Dictated: 10/17/2022 23:09:31Date Transcribed: 10/18/2022 00:25:55KFD/JAKY/DA/Michael #: [id number] ID: [id number] by Balbir Menchaca MD On 10/18/2022 10:41:02 AM PATIENT NAME: CYNDIE PENN at 1041 PATIENT NAME: CYNDIE PENN :25:00[facility] [id number] for patient ljkgTVMQTPJCYLPGHZ4103-32-67M33:41:39 [facility] 2022-10-17 18:59:00 [id number] 04T18:59:00 [facility] ([facility]) Med Order Sheet REPORT #: [id number] REPORT STATUS: Signed DATE: 10/17/22 TIME: 185 PATIENT: CYNDIE PENN UNIT #: [id number] #: [id number] ROOM #: P.0702 BED: 1 : 76 AGE: 46 SEX: F ATTEND: Sharon Agudelo MD ADM AUTHOR: Sharon Agudelo MD ATTENTION EDITS and/or ADDENDA must be made in Patient Keeper for this note. Edits and ammendments created in [facility] are not visible in Patient Keeper or the legal medical record (HPF). Admission Medication Reconciliation -- CONTINUED / CHANGED HOME MEDICATIONS -- Home: clonazePAM disintegrating tablet 2 MG PO BIDHosp: Existing: clonazePAM Tab (KlonoPIN Tab) 2MG PO BID Home: Lyrica cap (pregabalin) 150 MG PO BIDHosp: Existing: Pregabalin Cap (Lyrica Cap) 150MG PO BID at 1859ATTENTION EDITS and/or ADDENDA must be made in Patient Keeper for this note. Edits and ammendments created in [employer] are not visible in Patient Keeper or the legal medical record (HPF). RPT #: [id number] OF REPORTCLClinical [id number]:59:00P.FO-[id number] ailable for patient yappBETLORODICHYXM0338-45-55D77:00:13 [facility] 2022-10-17 11:35:00 [id number] 04T11:35:00 [facility] ([facility]) Internal Med. Progress Note REPORT #: [id number] REPORT STATUS: Signed DATE: 10/17/22 TIME: 1135 PATIENT: CYNDIE PENN UNIT #: [id number] #: [id number] ROOM #: Nolan0702 BED: 1 : 76 AGE: 46 SEX: F ATTEND: Sharon Agudelo MD ADM AUTHOR: Sharon Agudelo MD ATTENTION EDITS and/or ADDENDA must be made in Patient Keeper for this note. Edits and ammendments created in [employer] are not visible in Patient Keeper or the legal medical record (HPF). -- ASSESSMENT AND PLAN -- GENERAL ASSESSMENT:1. Right hip pathological fracture, as seen on CT. Ortho consulted.pain managementdiscussed with pt and familyLovenox 40 mg SQ daily 2. Hypertension, continue lisinopril. Hold parameters in place.Hydralazine IV as needed for elevated BP 3. Chronic pain syndrome, pain management.- Dr Baker 4. Bipolar disorder, continue Prozac. Denies SI/HI. Follow up Psych. 5. Hypothyroidism, continue levothyroxine. Monitor TSH.Endocrine consultedTS 49Increased synthroid to 200 mcg po daily 6. DVT prophylaxis. -- SUBJECTIVE -- CHIEF COMPLAINT:Awake and alertcomplaints of right hip painno feverno chest pain -REVIEW OF SYSTEMS- GENERAL: Negative for fever.RESPIRATORY: Negative for dyspnea.CARDIOVASCULAR: Negative for chest pain.GASTROINTESTINAL: Negative for abdominal pain.MUSCULOSKELETAL: Positive for hip pain.SKIN: Negative for rashes. -- OBJECTIVE -- VITALS (10/16 11:35 - 10/17 11:35):Temperature F: 97.9 Temperature C: 36.5 (36.3 - 36.9)Temperature source: OralPulse Rate 64 (64 - 89)Respiratory rate: 17 (16 - 19)BP: 150/94 (131/73 - 150/94) -EXAM- GENERAL: Awake, alert, and oriented.HEAD: Normocephalic, atraumatic.NECK: No JVD, supple.LUNGS: Clear bilaterally with normal respiratory effort.HEART: Regular rate and rhythm, normal S1, S2.ABDOMEN: Soft, non-tender, non-distended, bowel sounds present.MUSCULOSKELETAL: Bilateral lower extremity weakness.EXTREMITIES: No clubbing, no cyanosis, no edema.NEUROLOGICAL: No focal deficits, cranial nerves II-XII grossly intact. -- DATA -- MEDICATIONS ENOXAPARIN SODIUM 40 MG SUBQ Q20IGVGUETJRLZZ HCL/PF 4 MG IV Q6H PRNtraMADol HCL 50 MG PO Q6H PRNGABAPENTIN 300 MG PO BIDFLUoxetine HCL 60 MG PO DAILYPROMETHAZINE HCL with/in SODIUM CHLORIDE 50 mL BAG 12.5 MG IV Q6H PRNlisinopriL 20 MG PO DAILYZOLPIDEM TARTRATE 5 MG PO BEDTIME PRNpolyethylene glycoL 3350 1 PKT PO DAILYACETAMINOPHEN 650 MG PO Q4H PRNdiphenhydrAMINE HCL 25 MG PO Q6H PRNLEVOTHYROXINE SODIUM 200 MCG PO DAILY@0600hydrALAZINE HCL 10 MG IV Q2H PRNmorphine SULFATE 2 MG IV Q4H PRN LABS BASIC METABOLIC PANEL (10/17/22 04:21)SODIUM 141POTASSIUM 4.0CHLORIDE 105CARBON DIOXIDE 28GLUCOSE 92BLOOD UREA NITROGEN 6L LGLOMERULAR FILTRATION RATE >=60 max estimateCREATININE 0.70CALCIUM 8.6 L CBC W/AUTO DIFF (10/17/22 04:21)WHITE BLOOD CELL 5.4RED BLOOD CELL 4.09 LHEMOGLOBIN 12.0HEMATOCRIT 37.0MEAN CELL VOLUME 90.5MEAN CELL HGB 29.3 MEAN CELL HGB CONCENTRATION 32.4 LRED CELL DISTRIBUTION WIDTH 13.9PLATELET COUNT 283MEAN PLATELET VOLUME 10.1NEUTROPHIL % 48.3LYMPHOCYTE % 40.4MONOCYTE % 7.2EOSINOPHIL % 2.6BASOPHIL % 1.1NEUTROPHIL # 2.63LYMPHOCYTE # 2.20MONOCYTE # 0.39EOSINOPHIL # 0.14BASOPHIL # 0.06 TSH (07/04/23 04:21)THYROID STIMULATING HORMONE 46.89 H Signed in PatientKeeper by Sharon Agudelo MD on 10/17/22 at 11:38 at 1138ATTENTION EDITS and/or ADDENDA must be made in Patient Keeper for this note. Edits and ammendments created in [employer] are not visible in Patient Keeper or the legal medical record (HPF). [facility] #: [id number] OF REPORTPRProgress [id number]:35:00P.XZ-[id number] ailable for patient qwddZEEVQFGPWINJMS3481-25-05B94:38:39 [facility] 2022-10-16 21:47:00 [id number] 03T21:47:00 [facility] ([facility]) Internal Med. H P REPORT #: [id number] REPORT STATUS: Signed DATE: 10/16/22 TIME: 2146 PATIENT: CYNDIE PENN UNIT #: [id number] #: [id number] ROOM #: P.0702 BED: 1 : 76 AGE: 46 SEX: F ATTEND: Sharon Agudelo MD ADM AUTHOR: Jennifer Rodrigues NP ATTENTION EDITS and/or ADDENDA must be made in Patient Keeper for this note. Edits and ammendments created in [employer] are not visible in Patient Keeper or the legal medical record (HPF). -- HISTORY -- ADMISSION DATE:2022-10-16 PRIMARY CARE PROVIDER:Noe Aguirre CHIEF COMPLAINT:Right hip pain HPI:This is a 46 year old female with past medical history of bipolar disorder ADHD who presented to [facility] ER for evaluation of right-sided hip pain. Accordingto patient, she fell yesterday and fell onto her right hip. She also hit herright shoulder and right knee. Of note, patient was seen on 10/11 and wasadmitted overnight at [facility]. Orthopedics evaluated her and notedlongstanding/chronic pain with left femoral neck fracture and has been seen atmultiple different ED's for falls. 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 No acute fracture is seen. X-ray right hip revealedlytic lesion at the right greater trochanter/femoral neck with underlyingpathologic fracture. Right shoulder x-ray revealed no acute fracture ormalalignment. Pending Ortho evaluation. PAST MEDICAL HISTORY:Bipolar disorder, ADHD, anxiety, chronic pain syndrome, hypothyroidism,hypertension PAST SURGICAL HISTORY:Hysterectomy, lap gino IMMUNIZATION STATUS:None recent FAMILY HISTORY:Non-contributory -SOCIAL HISTORY- ADDITIONAL SOCIAL HISTORY:NEG ETOH, NEG tobacco -- ALLERGIES/HOME MEDS -- ALLERGIES:No Known Allergies (UNKNOWN - Allergy) -- SUBJECTIVE -- -REVIEW OF SYSTEMS- GENERAL: Negative for fever.RESPIRATORY: Negative for dyspnea.CARDIOVASCULAR: Negative for chest pain.GASTROINTESTINAL: Negative for abdominal pain.MUSCULOSKELETAL: Positive for hip pain.SKIN: Negative for rashes. -- OBJECTIVE -- VITALS (10/15 21:48 - 10/16 21:48):Temperature F: 97.9Temperature source: OralPulse Rate 89Respiratory rate: 19BP: 145/80 -EXAM- GENERAL: Awake, alert, and oriented.HEAD: Normocephalic, atraumatic.EYES: PERRL, EOM intact, conjunctiva and sclera clear.NECK: No JVD, supple.LUNGS: Clear bilaterally with normal respiratory effort.HEART: Regular rate and rhythm, normal S1, S2.ABDOMEN: Soft, non-tender, non-distended, bowel sounds present.MUSCULOSKELETAL: Bilateral lower extremity weakness.EXTREMITIES: No clubbing, no cyanosis, no edema.NEUROLOGICAL: No focal deficits, cranial nerves II-XII grossly intact.PULSES: Pulses normal in all extremities.SKIN: Intact without significant lesion. -- ASSESSMENT AND PLAN -- GENERAL ASSESSMENT:1. Right hip pathological fracture, as seen on CT. Ortho consulted. 2. Hypertension, continue lisinopril. Hold parameters in place. 3. Chronic pain syndrome, pain management. 4. Bipolar disorder, continue Prozac. Denies SI/HI. Follow up Psych. 5. Hypothyroidism, continue levothyroxine. Monitor TSH. 6. DVT prophylaxis. CONSULTANTS:Ortho, Pain management Signed in PatientKeeper by Jennifer Rodrigues NP on 10/16/22 at 23:45 Cosigned by SHARON AGUDELO MD on 10/17/22 at 07:55 at 0755 at 0755ATTENTION EDITS and/or ADDENDA must be made in Patient Keeper for this note. Edits and ammendments created in [facility] are not visible in Patient Keeper or the legal medical record (HPF). RPT #: [id number] OF REPORTHPHistory and physical rinigoiccqp9610-30-13S86:47:00P.OW-[id number] 256AVAvailable for patient agpaKSWPMUSHAYTMRP8447-10-17C40:55:43 [facility] 2022-10-16 18:09:00 [id number] 03T18:09:00 [facility] ([facility])EMERGENCY PROVIDER REPORTREPORT#:[id number] REPORT STATUS: SignedDATE:10/16/22 TIME: 180 PATIENT: CYNDIE PENN UNIT #: [id number]#: [id number] ROOM: [facility] BED: 1AGE: 46 SEX: F PCP PHYS: Undefined ProviderSERVICE AUTHOR: Sabrina Artis MD * ALL edits or amendments must be made on the electronic/computer document * HPI-General Illness Free Text HPI NotesFree Text HPI Sltwd01-xppd-xtt female past medical history significant for bipolar, ADHD presents to [facility] ER for evaluation of right-sided hip pain. States that yesterday morningat 7 AM, she slipped and fell onto her right hip. Also states that she hit her right shoulder and her right knee although pain is lesser in these areas. Denies any head trauma, loss of consciousness, or pain/trauma elsewhere. Of note, patient was seen on 10/11 and was admitted overnight at [facility]. Orthopedics evaluated her and noted longstanding/chronic pain with left femoral neck fracture and has been seen at multiple different ED's for falls. GeneralInitial Greet Date/Time 10/16/22 171 PresentationChief Complaint R hip pain. Review of Systems Free Text ROS NotesFree Text ROS NotesConstitutional:Denies: Chills, Fatigue. Eyes:Denies: Blurry Vision, Diplopia. ENT:Denies: Sinus problem, Sore throat. Respiratory:Denies: Cough, Shortness of breath. Cardiovascular:Denies: Chest pain, Palpitations. GI: Denies: Abdominal pain, Nausea, Vomiting. : Denies: Dysuria, Flank pain. Musculoskeletal:+Extremity pain. HematologicDenies: Bleeding. NeurologicDenies: Change LOC, Confusion, Slurred speech. Past Medical History - AdultStated Complaint HIP PAIN POST FALLAllergiesCoded Allergies:No Known Allergies (10/16/22) Calculated Suicide Risk (nurs) No riskAdditional Medical HistoryBipolar disorder, ADHD, anxiety, chronic pain syndrome, hypothyroidism,hypertensionSmoking status for patients 13 years old or older: Never Smoker Physical Exam Vital SignsVital SignsFirst Documented: Result Date Time Pulse Ox 98 10/16 1706 B/P 145/80 / 1706 B/P Mean 101 10/16 1706 O2 Delivery Room air 10/16 1706 Temp 36.6 10/16 1706 Pulse 89 10/16 1706 Resp 19 10/16 1705 Last Documented: Result Date Time Pulse Ox 98 10/16 1706 B/P 145/80 10/16 1706 B/P Mean 101 10/16 1706 O2 Delivery Room air 10/16 1706 Temp 36.6 10/16 1706 Pulse 89 10/16 1706 Resp 10/16 Review of Vital Signs Reviewed Free Text PE NotesFree Text PE Notes Constitutional: Well nourished, well-developed, no acute distress.Head: Atraumatic, normocephalicENT: No periorbital ecchymosis or hairston sign. No midline c-spine TTP. Jaw approximates normally. Trachea midline and neck supple.Respiratory: Normal respiratory effort. Lungs CTAB. No crackles or wheezes. Cardiovacsular: RRR. No murmurs or rubs.Abdomen: Abdomen soft, nondistended, nontender to palpation. NBS. : Pelvis stable and nontender to palpation.Back: No significant thoracic or lumbar midline TTP. No step offs or deformities. No overlying skin lesions noted. Full spinal ROM. Extremities: Mild tenderness to palpation over the right shoulder, right hip, and right knee. Mild limitation of range of motion of right hip due to discomfort but still is able to to lift leg against gravity. Otherwise, no other significant TTP over bilateral upper extremities including shoulders, elbows, wrists and hands. No other significant TTP over bilateral lower extremities including hips, knees, ankles, and feet. Full ROM of BUE/BLE. No gross deformities of extremities. Interpretation Diagnostics Lab Results InterpretationResultsRecent Impressions:RADIOLOGY - XR HIP W/PEL UNI 2+V RT 10/16 1745 Report Impression - Status: SIGNED Entered: 10/16/2022 184 IMPRESSION:Lytic lesion at the right greater trochanter/femoral neck withunderlying pathologic fracture.Impression By: Nathaniel CUTLER M.D.RADIOLOGY - XR SHOULDER 2 + V RT 10/16 1750 Report Impression - Status: SIGNED Entered: 10/16/2022 184 IMPRESSION:No acute fracture or malalignment.Impression By: Nathaniel CUTLER M.D.RADIOLOGY - XR KNEE 1 OR 2 V RT 10/16 1838 Report Impression - Status: SIGNED Entered: 10/16/2022 184 IMPRESSION:Lytic lesion at the right greater trochanter/femoral neck withunderlying pathologic fracture.Impression By: Nathaniel CUTLER M.D. Re-Evaluation MDM Free Text MDM NotesFree Text MDM Notes History and physical as above. X-ray imaging showing lytic lesion in the right greater trochanter/femoral neck with underlying pathologic fracture. Case was discussed with Dr. Menchaca who sent patient in, including prior visits to [facility] as noted in HPI. He requested admission for pain control as well as CT imaging. Discussed patient with and admitted to the inpatient medicine service for further management/workup. Did f/u on CT imaging - no evidence of acute hip fx; chronic. ED CourseMedication(s) OrderedMedication(s) Ordered:Central Nervous System Agents Sig/Heather Start time Last Medication Dose Route Stop Time Status Admin Hydrocodone Bitart/ 1 TAB X1ED STA 10/16 1713 DC 10/16 Acetaminophen PO 10/16 1714 1800 Patient Discharge Departure Vital Signs/ConditionVital SignsFirst Documented: Result Date Time Pulse Ox 98 10/16 1706 B/P 145/80 10/16 1706 B/P Mean 101 10/16 1706 O2 Delivery Room air 10/16 1706 Temp 36.6 10/16 1706 Pulse 89 10/16 1706 Resp 19 10/16 1706 Last Documented: Result Date Time Pulse Ox 98 10/16 1706 B/P 145/80 10/16 1706 B/P Mean 101 10/16 1706 O2 Delivery Room air 10/16 170 Temp 36.6 10/16 1706 Pulse 89 10/16 1706 Resp 19 10/16 1706 All vital signs available at the time of this entry have been reviewed. Clinical ImpressionClinical ImpressionPrimary Impression: Chronic fractureSecondary Impressions: Fall, Hip fracture, Right hip pain Disposition DecisionHospitalize Hosp Physician Name Sharon Agudelo MD Request Time 1900 Request Date 10/16/22 )( Accepts Hospitalization Yes )( Accepted Time 1900 )( Accepted Date 10/16/22 at 0947RPT #:[id number] OF REPORTEDEmergency department [id number] ilable for patient [id number] [facility]"
--- NOTE | 2023-03-25 12:32 | RAD REPORT ---
EXAM DESCRIPTION: CT - CTHCSPWOC - 03/25/2023 12:21 pm CLINICAL HISTORY: Trauma, head and neck injury. tinnitus, radiculopathy;Pain COMPARISON: <Comparisons> TECHNIQUE: Axial 5 mm thick images of the head were obtained. Axial 2 mm thick images of the cervical spine were obtained with sagittal and coronal reconstruction images generated and reviewed. All CT scans are performed using dose optimization technique as appropriate and may include automated exposure control or mA/KV adjustment according to patient size. FINDINGS: CT HEAD WITHOUT CONTRAST: No acute hemorrhage, hydrocephalus or extra-axial collection is identified.No areas of brain edema or midline shift. The paranasal sinuses and mastoids are clear.The calvarium is intact. CT CERVICAL SPINE WITHOUT CONTRAST: No fracture or subluxation.Mild midcervical spondylosis.No prevertebral soft tissues swelling is iden tified. IMPRESSION: No acute intracranial or cervical spine findings.
[2023-03-25] MEDS ORDERED: GABAPENTIN 300 MG CAP ONE (12:40)
--- NOTE | 2023-03-25 12:44 | RAD REPORT ---
EXAM DESCRIPTION: RAD - Shoulder Right 2 View - 03/25/2023 12:38 pm CLINICAL HISTORY: PAIN COMPARISON: <Comparisons> FINDINGS: Mild AC joint degenerative changes. No fracture or dislocation seen.
[2023-03-25] MEDS ORDERED: dexAMETHasone 10 MG/ML VIAL ONE (13:10)
[2023-03-25] MEDS ORDERED: KETOROLAC 30 MG/ML INJ ONE (13:11)
--- NOTE | 2023-03-25 13:34 | EDPHYS ---
Physician Documentation [facility] Name: Rody Doan Age: 47 yrs Sex: Female : 1975 Arrival Date: 03/25/2023 Time: 10:25 Bed 11 Private MD: ED Physician Duran Westfall HPI: 03/25 17:54 This 47 yrs old Female presents to ER via Ambulatory with complaints of sb4 shoulder and neck pain. 17:54 Patient states that she has chronic right shoulder pain, she was told in the past that sb4 she had a mildly torn rotator cuff. However, she states the past few days she has been experiencing tinnitus in her left ear causing a pain to wrap around her neck and go down her right arm. She is not sure if the 2 are related but she states the pain has become unbearable, especially with the ringing in her ears. 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 - Social history:: Smoking status: Patient reports the use of cigarette tobacco products, smokes one-half pack cigarettes per day. ROS: 17:55 Constitutional: Negative for fever, chills, and weight loss, sb4 17:55 MS/extremity: Positive for Neck and right shoulder pain, 17:55 All other systems are negative, Exam: 17:55 Constitutional: This is a well developed, well nourished patient who is awake, alert, sb4 and in no acute distress. Head/Face: Normocephalic, atraumatic. Eyes: Extra-ocular motions intact. Periorbital areas with no swelling, redness, or edema. ENT: Mucous membranes moist. Cardiovascular: Regular rate and rhythm with a normal S1 and S2. Respiratory: Lungs have equal breath sounds bilaterally, clear to auscultation and percussion. No rales, rhonchi or wheezes noted. No increased work of breathing, no retractions or nasal flaring. Abdomen/GI: Soft, non-tender, no distension. Skin: Warm, dry with normal turgor. Normal color with no rashes, no lesions, and no evidence of cellulitis. MS/ Extremity: Pulses equal, no cyanosis. Neurovascular intact. Full, normal range of motion. Neuro: Awake and alert, GCS 15, oriented to person, place, time, and situation. Motor strength 5/5 in all extremities. Sensory grossly intact. 17:55 Neck: External neck: tenderness, that is mild, of the left mid cervical area and right mid cervical area, C-spine: no acute changes, ROM/movement: pain, that is mild, with rotation to the left, with rotation to the right, Lymph nodes: no appreciated lymphadenopathy, Vital Signs: 10:36 BP 125 / 84; Pulse 90; Resp 17; Temp 97.9(O); Pulse Ox 100% ; Weight 73.48 kg; Height 5 nj1 ft. 5 in. ; Pain 10/10; 12:02 BP 119 / 97; Pulse 88; Resp 18; Pulse Ox 100% on R/A; Pain 10/10; me1 13:50 BP 114 / 82; Pulse 81; Resp 16; Pulse Ox 100% on R/A; me1 10:36 Body Mass Index 26.96 (73.48 kg, 165.1 cm) nj1 10:36 Pain Scale: Adult nj1 12:02 Pain Scale: Adult me1 MDM: 10:40 Patient medically screened. sb4 17:55 Differential diagnosis: DJD, tendonitis, Radiculopathy, cervicalgia. Data reviewed: sb4 vital signs, nurses notes, radiologic studies, and as a result, I will discharge patient. Care significantly affected by the following chronic conditions: Hypertension. Counseling: I had a detailed discussion with the patient and/or guardian regarding the historical points, exam findings, and any diagnostic results supporting the discharge/admit diagnosis, radiology results, the need for outpatient follow up, a orthopedic surgeon, to return to the emergency department if symptoms worsen or persist or if there are any questions or concerns that arise at home. 03/25 12:01 Order name: Head C Spine MPR Wo Con CT; Complete Time: 12:34 sb4 03/25 12:02 Order name: Shoulder Right (2 View) XRAY; Complete Time: 12:45 sb4 03/25 13:33 Order name: Shoulder Immobilizer; Complete Time: 13:52 sb4 Administered Medications: 12:31 Drug: Gabapentin PO 300 mg PO once Route: PO; me1 13:01 Follow up: Response: No adverse reaction me1 13:25 Follow up: Response: No adverse reaction; Pain is decreased me1 13:00 Drug: Dexamethasone IM 10 mg IM once Route: IM; Site: left deltoid; me1 13:25 Follow up: Response: No adverse reaction; Pain is decreased me1 13:01 Drug: Ketorolac IM 30 mg IM once Route: IM; Site: right deltoid; me1 13:25 Follow up: Response: No adverse reaction; Pain is decreased me1 Disposition: 19:53 I was immediately available on-site in the Emergency Department for consultation in the ms3 care of the patient. Disposition Summary: 03/25/23 13:33 Discharge Ordered Notes: Location: Home sb4 Problem: an ongoing problem sb4 Symptoms: have improved sb4 Condition: Stable sb4 Diagnosis - Radiculopathy, cervical region sb4 - Pain in right shoulder sb4 Followup: sb4 - With: Emergency Department - When: As needed - Reason: Trouble breathing, Worsening of condition Discharge Instructions: - Discharge Summary Sheet sb4 - Cervical Radiculopathy sb4 - Shoulder Pain sb4 Forms: - Medication Reconciliation Form sb4 - Thank You Letter sb4 - Antibiotic Education sb4 - Prescription Opioid Use sb4 - Patient Portal Instructions sb4 - Leadership Thank You Letter sb4 Prescriptions: - gabapentin 300 mg Oral capsule - take 1 capsule ORAL route every 8 hours; 20 capsule; Refills: 0, Product sb4 Selection Permitted - Diclofenac Sodium 75 mg Oral Tablet Sustained Release - take 1 tablet ORAL route 2 times per day; 30 tablet; Refills: 0, Product sb4 Selection Permitted - Medrol (Chente) 4 mg Oral Tablets, Dose Pack - take 1 tablet ORAL route as directed - follow package instructions; 1 packet; sb4 Refills: 0, Product Selection Permitted Signatures: Dispatcher [employer] Duran Brown DO DO ms3 Christine Baird PA-C PA-C sb4 Melony Pastor RN RN nj1 Dee Dee Patten RN RN me1 Corrections: (The following items were deleted from the chart) 10:41 10:40 PSHx: Total hip replacement, right (hysterectomy); nj1 nj1 17:55 17:54 Patient states that she has chronic right shoulder pain, she was told in the past sb4 that she had a mildly torn rotator cuff. However, she states the past few days she has been experiencing tinnitus in her left ear causing a pain to wrap around her neck and go down her right arm. She is not sure if the 2 are related.. sb4
--- NOTE | 2023-03-25 13:34 | ER ---
Nurse's Notes [facility] Name: Rody Doan Age: 47 yrs Sex: Female : 1975 Arrival Date: 03/25/2023 Time: 10:25 Bed 11 Private MD: Diagnosis: Radiculopathy, cervical region;Pain in right shoulder Presentation: 03/25 10:36 Chief complaint: Patient states: Right shoulder/arm pain, onset 2.5 months ago, on and nj1 off. However, the pain has worsen and been constant for about 8 days now. Left ear ringing for the same amount of time. Has been taking tylenol/ibuprofen that worked at the beginning but not working anymore, had leftover norcos that seem to ease the pain some. Coronavirus screen: Vaccine status: Patient reports being unvaccinated. Ebola Screen: Patient denies travel to an Ebola-affected area in the 21 days before illness onset. Initial Sepsis Screen: Does the patient meet any 2 criteria? No. Patient's initial sepsis screen is negative. Does the patient have a suspected source of infection? No. Patient's initial sepsis screen is negative. Risk Assessment: Do you want to hurt yourself or someone else? Patient reports no desire to harm self or others. Onset of symptoms was January 2023. 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 - Social history:: Smoking status: Patient reports the use of cigarette tobacco products, smokes one-half pack cigarettes per day. Screenin:03 [facility] ED Fall Risk Assessment (Adult) History of falling in the last 3 months, me1 including since admission No falls in past 3 months (0 pts) Confusion or Disorientation No (0 pts) Intoxicated or Sedated No (0 pts) Impaired Gait No (0 pts) Mobility Assist Device Used No (0 pt) Altered Elimination No (0 pt) Score/Fall Risk Level 0 - 2 = Low Risk Maintained a safe environment, Provided non-skid footwear, Hourly rounding (assess needs \T\ fall precautionary measures) done. Abuse screen: Denies threats or abuse. Nutritional screening: No deficits noted. Tuberculosis screening: No symptoms or risk factors identified. Assessment: 12:03 General: Appears uncomfortable, well developed, well nourished, Behavior is calm, me1 cooperative, appropriate for age, Reports c/o pain in right shoulder that has been going on for over 2 months. C/o ringing in left ear that started about 8 days ago as well as a sharp stabbing pain that goes across her neck from left to right, to the right shoulder and down the right arm. pain is 10/10. Pain: Complains of pain in back of neck and left ear and right shoulder. Pain radiates to neck to right shoulder and down right arm. Pain currently is 10 out of 10 on a pain scale. Quality of pain is described as sharp, stabbing, Pain began. Neuro: Level of Consciousness is awake, alert, obeys commands, Oriented to person, place, time, situation, Appropriate for age. Cardiovascular: Capillary refill < 3 seconds Patient's skin is warm and dry. Respiratory: Airway is patent Respiratory effort is even, unlabored, Respiratory pattern is regular, symmetrical. Musculoskeletal: Reports pain in back of neck and left ear, right shoulder and down right arm. Vital Signs: 10:36 BP 125 / 84; Pulse 90; Resp 17; Temp 97.9(O); Pulse Ox 100% ; Weight 73.48 kg; Height 5 nj1 ft. 5 in. ; Pain 10/10; 12:02 BP 119 / 97; Pulse 88; Resp 18; Pulse Ox 100% on R/A; Pain 10/10; me1 13:50 BP 114 / 82; Pulse 81; Resp 16; Pulse Ox 100% on R/A; me1 10:36 Body Mass Index 26.96 (73.48 kg, 165.1 cm) nj1 10:36 Pain Scale: Adult nj1 12:02 Pain Scale: Adult nv1 ED Course: 10:28 Patient arrived in ED. im 10:29 Christine Baird PA-C is PHCP. sb4 10:29 Duran Westfall DO is Attending Physician. sb4 10:40 Triage completed. nj1 10:41 Arm band placed on left wrist. nj1 11:57 Dee Dee Patten, RN is Primary Nurse. me1 12:03 Patient has correct armband on for positive identification. Fall risk band placed. Bed me1 in low position. Call light in reach. Side rails up X2. Provided Education on: POC. Verbalized understanding. . 12:03 No provider procedures requiring assistance completed. me1 12:23 Head C Spine MPR Wo Con CT In Process Unspecified. EDMS 12:40 Shoulder Right (2 View) XRAY In Process Unspecified. EDMS 13:51 Patient did not have IV access during this emergency room visit. me1 Administered Medications: 12:31 Drug: Gabapentin PO 300 mg PO once Route: PO; me1 13:01 Follow up: Response: No adverse reaction me1 13:25 Follow up: Response: No adverse reaction; Pain is decreased me1 13:00 Drug: Dexamethasone IM 10 mg IM once Route: IM; Site: left deltoid; me1 13:25 Follow up: Response: No adverse reaction; Pain is decreased me1 13:01 Drug: Ketorolac IM 30 mg IM once Route: IM; Site: right deltoid; me1 13:25 Follow up: Response: No adverse reaction; Pain is decreased me1 Medication: 12:03 VIS not applicable for this client. me1 Outcome: 13:33 Discharge ordered by MD. sb4 13:51 Discharged to home ambulatory, with family, me1 13:51 Condition: stable 13:51 Discharge instructions given to patient, Instructed on discharge instructions, follow up and referral plans. medication usage, Demonstrated understanding of instructions, follow-up care, medications, Prescriptions given X 3, 13:52 Patient left the ED. me1 Signatures: Dispatcher [employer] Christine Casey PA-C PA-C sb4 Melony Pastor RN RN nj1 Komal Mendenhall im Dee Dee Patten, RN RN me1 Corrections: (The following items were deleted from the chart) 10:41 10:40 PSHx: Total hip replacement, right (hysterectomy); nj1 nj1 12:02 10:36 Chief complaint: Patient states: Right shoulder/arm pain, onset 2.5 months ago, me1 on and off. However, the pain has worsen and been constant for about 8 days now. Left ear ringing for the same amount of time. Has been taking tylenol/ibuprofen that worked at the beginning but not working anymore, had leftover norcos that seem to ease the pain some. nj1
[2023-03-25 14:19] VITALS: TEMP 97.9; O2SAT 100
[2023-03-25 14:27] VITALS: BP 114/82
== END 2023-03-25 13:52 | disposition home or self-care (01) ==
LOC: ER 10:25
DX: M54.12 Radiculopathy, cervical region (principal); F17.210 Nicotine dependence, cigarettes, uncomplicated; Z88.6 Allergy status to analgesic agent; Z28.310 Unvaccinated for COVID-19
CPT/HCPCS: 70450; 72125; 73030; 96372; 99284; J1100

== ENCOUNTER → 2023-04-26 | Emergency (ER) | payer OTHER ==
[~2023-04-26] MED LIST: ACETAMINOPHEN 500 MG TAB ONE; KETOROLAC 30 MG/ML INJ ONE; LORAZEPAM 1 MG TABLET ONE; NA CHLORIDE 0.9% 1,000 ML ONE; ONDANSETRON 4 MG/2 ML VIAL ONE; POTASSIUM 25 MEQ EFFERV TAB ONE
[2023-04-26 23:58] LABS: Absolute Lymphocytes (CBC) 2.1 K/uL (0.7-4.9); Hematocrit 35.7 % (36.0-45.0); Lymphocytes % 24.5 % (15.3-44.8); MPV 8.3 fL (7.6-11.3); Platelets 406 thou/uL (152-406); RBC Red Blood Cell Count 4.31 M/uL (3.86-4.86)
[2023-04-27] LABS: Protime INR 1.2
[2023-04-27 00:08] LABS: Potassium 3.4 mEq/L (3.5-5.1); Troponin High Sensitivity 4.8 pg/mL (<58.9)
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
[2023-04-27 11:36] VITALS: BP 131/82; TEMP 98.4; O2SAT 100
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
== END ==
LOC: ER 23:00
DX: T76.21XA Adult sexual abuse, suspected, initial encounter (principal); R10.31 Right lower quadrant pain; F17.210 Nicotine dependence, cigarettes, uncomplicated; F31.9 Bipolar disorder, unspecified
CPT/HCPCS: 85025; 80048; 36415; 86900; 86850; 84703; 85610; 86901; 85730; 84484; 71260; 74177; 96375; 96374; 99284; Q9967; J7030

== ENCOUNTER 2023-09-21 16:48 | Emergency (ER) | payer OTHER ==
[2023-09-21] MEDS ORDERED: HYDROCODONE/APAP 10/325 TAB ONE (18:23)
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
--- NOTE | 2023-09-21 18:38 | RAD REPORT ---
EXAM DESCRIPTION: RAD - Pelvis - 09/21/2023 6:28 pm CLINICAL HISTORY: PAIN COMPARISON: Pelvis Wo Cont dated 11/22/2022 FINDINGS/IMPRESSION: No acute pelvic fracture. Intact right hip arthroplasty. No dislocation.
--- NOTE | 2023-09-21 18:39 | RAD REPORT ---
EXAM DESCRIPTION: RAD - Elbow Left 3 View - 09/21/2023 6:28 pm CLINICAL HISTORY: PAIN COMPARISON: No comparisons FINDINGS/IMPRESSION: No acute fracture. No malalignment. Small spur at the coronoid process. Lateral view limited by positioning. No large elbow effusion.
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
--- NOTE | 2023-09-21 18:44 | ER ---
Nurse's Notes [facility] Name: Rody Carroll Age: 47 yrs Sex: Female : 1975 Arrival Date: 09/21/2023 Time: 16:48 Bed 16 Private MD: Diagnosis: Pain in leg, unspecified;Lateral epicondylitis, left elbow Presentation: 09/20 17:07 Chief complaint: Patient states: left elbow pain x3 weeks and right leg pain. pt is as6 worried there is an issue with her hardware from her hip replacement from last year. Coronavirus screen: At this time, the client does not indicate any symptoms associated with coronavirus-19. Ebola Screen: No symptoms or risks identified at this time. Initial Sepsis Screen: Does the patient meet any 2 criteria? No. Patient's initial sepsis screen is negative. Does the patient have a suspected source of infection? No. Patient's initial sepsis screen is negative. Risk Assessment: Do you want to hurt yourself or someone else? Patient reports no desire to harm self or others. Onset of symptoms was September 21, 2023. 17:07 Acuity: MEGHA 3 as6 17:07 Method Of Arrival: Ambulatory as6 Triage Assessment: 17:06 General: Appears uncomfortable, Behavior is calm, cooperative. Pain: Complains of pain as6 in left elbow and right leg. [employer]ER: 17:06 LMP N/A - Hysterectomy, Not as6 Historical: - Allergies: 17:07 No Known Allergies; as6 - PMHx: 17:07 Anxiety; Bipolar disorder; Chronic pain; Depression; Hypertension; Hypothyroidism; as6 Seizures; - PSHx: 17:07 Cholecystectomy; hysterectomy; hip (hysterectomy); as6 - Immunization history:: Adult Immunizations not up to date. - Infectious Disease History:: Denies. - Social history:: Smoking status: Reported history of juuling and/or vaping. - Family history:: not pertinent. Screenin:26 [facility] ED Fall Risk Assessment (Adult) History of falling in the last 3 months, tl4 including since admission No falls in past 3 months (0 pts) Confusion or Disorientation No (0 pts) Intoxicated or Sedated No (0 pts) Impaired Gait No (0 pts) Mobility Assist Device Used No (0 pt) Altered Elimination No (0 pt) Score/Fall Risk Level 0 - 2 = Low Risk Oriented to surroundings, Maintained a safe environment, Educated pt \T\ family on fall prevention, incl call for assistance when getting out of bed, Assessed \T\ reinforced patient's understanding of fall precautions. Abuse screen: Denies threats or abuse. Denies injuries from another. Nutritional screening: No deficits noted. Tuberculosis screening: No symptoms or risk factors identified. Assessment: 18:25 General: Appears uncomfortable, Behavior is calm, cooperative. Pain: Complains of pain tl4 in left arm and right leg. Neuro: Level of Consciousness is awake, alert, obeys commands, Oriented to person, place, time, situation, Moves all extremities. Full function Speech is normal. Cardiovascular: Capillary refill < 3 seconds Patient's skin is warm and dry. Respiratory: Airway is patent Respiratory effort is even, unlabored, Respiratory pattern is regular, symmetrical, Breath sounds are clear bilaterally. GI: No signs and/or symptoms were reported involving the gastrointestinal system. : No signs and/or symptoms were reported regarding the genitourinary system. EENT: No signs and/or symptoms were reported regarding the EENT system. Derm: No signs and/or symptoms reported regarding the dermatologic system. Musculoskeletal: Reports pain in left arm and right leg. 19:40 Reassessment: Patient and/or family updated on plan of care and expected duration. Pain tl4 level reassessed. Patient is alert, oriented x 3, equal unlabored respirations, skin warm/dry/pink. Extended time to discharge due to patient needing more interventions for pain. Vital Signs: 17:06 BP 160 / 84; Pulse 79; Resp 18; Temp 97.4; Pulse Ox 100% ; Weight 70.31 kg; Height 5 as6 ft. 7 in. ; Pain 10/10; 18:27 BP 124 / 87; Pulse 85; Resp 16; Pulse Ox 100% on R/A; Pain 10/10; tl4 19:37 BP 134 / 87; Pulse 81; Resp 18; Temp 98.3(O); Pulse Ox 100% on R/A; Pain 8/10; tl4 17:06 Body Mass Index 24.28 (70.31 kg, 170.18 cm) as6 17:06 Pain Scale: Adult as6 18:27 Pain Scale: Adult tl4 19:37 Pain Scale: Adult tl4 ED Course: 16:51 Patient arrived in ED. im 16:54 Perry Rueda MD is Attending Physician. olya 17:06 Arm band placed on. as6 17:08 Triage completed. as6 18:22 Denver Martin, RN is Primary Nurse. tl4 18:27 Patient has correct armband on for positive identification. Bed in low position. Call tl4 light in reach. Side rails up X 1. Adult w/ patient. Provided Education on: ed process, call montemayor. Client placed on continuous cardiac and pulse oximetry monitoring. NIBP monitoring applied. Door closed. Noise minimized. Lights dimmed. Moved to private room. Warm blanket given. Pillow given. 18:27 No provider procedures requiring assistance completed. tl4 18:30 Elbow Left 3 View XRAY In Process Unspecified. EDMS 18:30 Pelvis XRAY In Process Unspecified. EDMS 18:30 Hip Right 2 View XRAY In Process Unspecified. EDMS 18:30 Femur Right XRAY In Process Unspecified. EDMS 18:43 London Quinn MD is Referral Physician. olya 19:38 Patient did not have IV access during this emergency room visit. tl4 19:38 Dimas wrap to left elbow and right knee ice pack applied. tl4 Administered Medications: 18:28 Drug: [place] PO 10 mg-325 mg 1 tabs PO once Route: PO; tl4 19:36 Follow up: Response: No adverse reaction; Pain is decreased tl4 19:25 Drug: Ketorolac IM 60 mg IM once Route: IM; Site: left ventrogluteal; tl4 19:44 Follow up: Response: No adverse reaction tl4 Medication: 18:26 VIS not applicable for this client. tl4 Outcome: 18:43 Discharge ordered by . [facility] 19:38 Discharged to home ambulatory, with family, tl4 19:38 Condition: stable 19:38 Discharge instructions given to patient, Instructed on discharge instructions, follow up and referral plans. medication usage, Demonstrated understanding of instructions, follow-up care, medications, Prescriptions given X 2, 19:44 Patient left the ED. tl4 Signatures: Dispatcher [employer] Perry Maguire MD MD cha Slawson, Ashby, RN RN as6 Komal Mendenhall im Denver Martin RN RN tl4
[2023-09-21] MEDS ORDERED: KETOROLAC 30 MG/ML INJ ONE (19:27)
[2023-09-21 20:10] VITALS: BP 134/87; TEMP 98.3; O2SAT 100
== END 2023-09-21 19:44 | disposition home or self-care (01) ==
LOC: ER 16:48
DX: M77.12 Lateral epicondylitis, left elbow (principal); M79.604 Pain in right leg; G89.29 Other chronic pain; I10 Essential (primary) hypertension; E03.9 Hypothyroidism, unspecified
CPT/HCPCS: 72170; 96372; 99284

== ENCOUNTER 2023-10-08 04:25 | Emergency (ER) | payer OTHER ==
[2023-10-08] MEDS ORDERED: KETOROLAC 30 MG/ML INJ ONE (05:19)
[2023-10-08] MEDS ORDERED: ACETAMINOPHEN 500 MG TAB ONE (05:19)
[2023-10-08] MEDS ORDERED: DIAZEPAM 5 MG TABLET ONE (05:19)
[2023-10-08] MEDS ORDERED: MORPHINE 4 MG/ML SYR ONE (06:36)
--- NOTE | 2023-10-08 09:02 | EDPHYS ---
Physician Documentation [facility] Name: Rody Carroll Age: 47 yrs Sex: Female : 1975 Arrival Date: 10/08/2023 Time: 04:25 Bed 17 Private MD: ED Physician Santo Rivera HPI: 10/07 05:16 This 47 yrs old Female presents to ER via Ambulatory with complaints of Leg ec2 Pain. 05:16 Patient arrives today for evaluation of right knee pain. Patient reports that she had a ec2 fall several days ago, was seen here in the emergency department, had negative radiographs and is having persistent pain. Patient reports pain is worse at the right knee as well as the left elbow.. 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 - Infectious Disease History:: Denies. - Social history:: Smoking status: Reported history of juuling and/or vaping. ROS: 05:16 Constitutional: as per hpi ec2 Exam: 05:16 Constitutional: GEN: NAD Head: atraumatic Eyes: EOMI Ears: External ears are ec2 normal. CV: regular rate LUNGS: no respiratory distress ABD: non-distended SKIN: no evidence of rashes MSK: no evidence of trauma bilateral lower extremities with good range of motion, TTP to the distal femur, intact distal neurovascular status of the right lower extremity. TTP to the left elbow, good range of motion, no deformities, no ecchymosis or swelling noted NEURO: moves all extremities equally Vital Signs: 04:38 BP 121 / 81; Pulse 79; Resp 17 S; Temp 97.6(T); Pulse Ox 100% on R/A; Weight 71.67 kg; ha1 Height 5 ft. 5 in. ; Pain 7/10; 05:25 BP 132 / 82; Pulse 80; Resp 17 S; Pulse Ox 99% on R/A; ha1 06:00 BP 107 / 77; Pulse 70; Resp 17 S; Pulse Ox 97% on R/A; ha1 07:00 BP 114 / 93; Pulse 73; Resp 17 S; Pulse Ox 100% on R/A; ha1 04:38 Body Mass Index 26.29 (71.67 kg, 165.1 cm) ha1 04:38 Pain Scale: Adult ha1 MDM: 04:36 Patient medically screened. ec2 05:16 Data reviewed: vital signs. ED course: Patient arrives today for evaluation of MSK ec2 pain. Examination remarkable for radiographs as noted above. Will obtain repeat radiographs and treat the patient's pain. Suspect contusion, sprain, additionally considering fracture.. 06:31 ED course: Elbow x-ray, hip x-ray, knee x-ray, independently reviewed and interpreted ec2 by me, show no bony fracture. Will discharge to home, have the patient follow-up with her primary care doctor.. 10/07 05:48 Order name: Hip Right 2 View EDAR 10/07 05:48 Order name: Knee Right 3 View EDAR 10/07 05:48 Order name: Elbow Left 3 View EDAR Administered Medications: 05:26 Drug: Ketorolac IM 30 mg IM once Route: IM; Site: right deltoid; ha1 06:00 Follow up: Response: No adverse reaction; Pain is unchanged, physician notified ha1 05:26 Drug: Acetaminophen PO 1000 mg PO once Route: PO; ha1 06:00 Follow up: Response: No adverse reaction ha1 05:27 Drug: Diazepam PO 10 mg PO once Route: PO; ha1 06:00 Follow up: Response: No adverse reaction 1 06:40 Drug: morphine IM 4 mg IM once Route: IM; Site: left deltoid; ha1 07:06 Follow up: Response: No adverse reaction; Pain is decreased; RASS: Alert and Calm (0) ha1 Disposition Summary: 10/08/23 06:47 Discharge Ordered Notes: Location: Home ec2 Condition: Stable ec2 Diagnosis - Pain in right knee ec2 - Pain in left elbow ec2 Followup: ec2 - With: Private Physician - When: - Reason: Re-evaluation by your physician Discharge Instructions: - Discharge Summary Sheet ec2 - Acute Knee Pain, Adult ec2 Forms: - Medication Reconciliation Form ec2 - Antibiotic Education ec2 - Prescription Opioid Use ec2 - Patient Portal Instructions ec2 - Leadership Thank You Letter ec2 Prescriptions: - methocarbamol 500 mg Oral tablet - take 2 tablets ORAL route 4 times per day; 20 tablet; Refills: 0, Product ec2 Selection Permitted Signatures: Dispatcher [employer] Nikki Novak RN RN ha1 Santo Rivera MD MD ec2
--- NOTE | 2023-10-08 09:02 | ER ---
Nurse's Notes [facility] Name: Rody Carroll Age: 47 yrs Sex: Female : 1975 Arrival Date: 10/08/2023 Time: 04:25 Bed 17 Private MD: Diagnosis: Pain in right knee;Pain in left elbow Presentation: 10/07 04:38 Chief complaint: Patient states: I fell two days ago and I am having constant pain on ha1 my right leg and left elbow. I had a hip replacement on the right side and something seems to be off. pain 7/10 after taking tramadol. 04:38 Coronavirus screen: Vaccine status: Patient reports being unvaccinated. Ebola Screen: ha1 No symptoms or risks identified at this time. Initial Sepsis Screen: Does the patient meet any 2 criteria? No. Patient's initial sepsis screen is negative. Does the patient have a suspected source of infection? No. Patient's initial sepsis screen is negative. Risk Assessment: Do you want to hurt yourself or someone else? Patient reports no desire to harm self or others. Onset of symptoms was October 06, 2023. 04:38 Method Of Arrival: Ambulatory ha1 04:38 Acuity: MEGHA 4 ha1 Triage Assessment: 04:38 General: Appears uncomfortable, Behavior is calm, cooperative. Pain: Complains of pain ha1 in right hip Pain does not radiate. Pain currently is 7 out of 10 on a pain scale. Quality of pain is described as aching, throbbing, Pain began 2-3 days ago. Neuro: Level of Consciousness is awake, alert, obeys commands, Oriented to person, place, time, situation. Cardiovascular: Patient's skin is warm and dry. Respiratory: Airway is patent Respiratory effort is even, unlabored, Respiratory pattern is regular, symmetrical. GI: No signs and/or symptoms were reported involving the gastrointestinal system. Musculoskeletal: Reports pain in right leg. 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 - Infectious Disease History:: Denies. - Social history:: Smoking status: Reported history of juuling and/or vaping. Screenin:00 [facility] ED Fall Risk Assessment (Adult) History of falling in the last 3 months, ha1 including since admission No falls in past 3 months (0 pts) Confusion or Disorientation No (0 pts) Intoxicated or Sedated No (0 pts) Impaired Gait No (0 pts) Mobility Assist Device Used No (0 pt) Altered Elimination No (0 pt) Score/Fall Risk Level 0 - 2 = Low Risk Oriented to surroundings, Maintained a safe environment, Educated pt \T\ family on fall prevention, incl call for assistance when getting out of bed, Hourly rounding (assess needs \T\ fall precautionary measures) done. Abuse screen: Denies threats or abuse. Denies injuries from another. Nutritional screening: No deficits noted. Tuberculosis screening: No symptoms or risk factors identified. Assessment: 04:38 Reassessment: see triage assessment. ha1 05:30 Reassessment: Patient and/or family updated on plan of care and expected duration. Pain ha1 level reassessed. Patient is alert, oriented x 3, equal unlabored respirations, skin warm/dry/pink. 06:25 Reassessment: Patient and/or family updated on plan of care and expected duration. Pain ha1 level reassessed. Patient is alert, oriented x 3, equal unlabored respirations, skin warm/dry/pink. requesting pain medications notified Dr. Rivera. pain 8/. 07:05 Reassessment: Patient and/or family updated on plan of care and expected duration. Pain ha1 level reassessed. Patient is alert, oriented x 3, equal unlabored respirations, skin warm/dry/pink. pain 3/10 Patient states feeling better. Patient states symptoms have improved. Vital Signs: 04:38 BP 121 / 81; Pulse 79; Resp 17 S; Temp 97.6(T); Pulse Ox 100% on R/A; Weight 71.67 kg; ha1 Height 5 ft. 5 in. ; Pain 7/10; 05:25 BP 132 / 82; Pulse 80; Resp 17 S; Pulse Ox 99% on R/A; ha1 06:00 BP 107 / 77; Pulse 70; Resp 17 S; Pulse Ox 97% on R/A; ha1 07:00 BP 114 / 93; Pulse 73; Resp 17 S; Pulse Ox 100% on R/A; ha1 04:38 Body Mass Index 26.29 (71.67 kg, 165.1 cm) ha1 04:38 Pain Scale: Adult ha1 ED Course: 04:31 Patient arrived in ED. gm2 04:36 Santo Rivera MD is Attending Physician. ec2 04:38 Patient has correct armband on for positive identification. Placed in gown. Bed in low ha1 position. Call light in reach. Side rails up X 1. Adult w/ patient. 04:38 Arm band placed on right wrist. ha1 04:49 Nikki Oliver, BONIFACIO is Primary Nurse. ha1 04:53 Triage completed. ha1 06:22 Hip Right 2 View In Process Unspecified. EDMS 06:23 Knee Right 3 View In Process Unspecified. EDMS 06:23 Elbow Left 3 View In Process Unspecified. EDMS 06:28 Provided Education on: medication administration . ha1 07:07 No provider procedures requiring assistance completed. IV discontinued, intact, ha1 bleeding controlled, No redness/swelling at site. Pressure dressing applied. Administered Medications: 05:26 Drug: Ketorolac IM 30 mg IM once Route: IM; Site: right deltoid; ha1 06:00 Follow up: Response: No adverse reaction; Pain is unchanged, physician notified ha1 05:26 Drug: Acetaminophen PO 1000 mg PO once Route: PO; ha1 06:00 Follow up: Response: No adverse reaction ha1 05:27 Drug: Diazepam PO 10 mg PO once Route: PO; ha1 06:00 Follow up: Response: No adverse reaction ha1 06:40 Drug: morphine IM 4 mg IM once Route: IM; Site: left deltoid; ha1 07:06 Follow up: Response: No adverse reaction; Pain is decreased; RASS: Alert and Calm (0) ha1 Medication: 05:01 VIS not applicable for this client. ha1 Outcome: 06:47 Discharge ordered by . ec2 07:07 Discharged to home ambulatory, with family, ha1 07:07 Condition: improved 07:07 Discharge instructions given to patient, family, Instructed on discharge instructions, follow up and referral plans. medication usage, Demonstrated understanding of instructions, follow-up care, medications, Prescriptions given X 1, 07:08 Patient left the ED. ha1 Signatures: Dispatcher [employer] Nikki oNvak RN RN ha1 Santo Rivera MD MD 2 Irma Rodriguez 2 Corrections: (The following items were deleted from the chart) 06:48 06:48 Response: No adverse reaction ha1 ha1
[2023-10-08 16:39] VITALS: TEMP 97.6
[2023-10-08 17:03] VITALS: BP 114/93; O2SAT 100
--- NOTE | 2023-10-08 22:40 | RAD REPORT ---
EXAM DESCRIPTION: RAD - Hip Right 2 View - 10/08/2023 6:20 am CLINICAL HISTORY: PAIN; COMPARISON: 09/21/2023 02/26/2023 FINDINGS: There is no evidence for fracture or dislocation. Status post right hip arthroplasty. Hard lantigua is intact. The soft tissues appear unremarkable. IMPRESSION: 1. No acute findings. 2. Status post right hip arthroplasty with intact hardware. Electronically signed by: Niko Wolff MD 10/08/2023 07:28 AM CDT Due to temporary technical issues with the PACS/Fluency reporting system, reports are being signed by the in house radiologists without review as a courtesy to insure prompt reporting. The interpreting radiologist is fully responsible for the content of the report.
--- NOTE | 2023-10-08 22:41 | RAD REPORT ---
EXAM DESCRIPTION: RAD - Elbow Left 3 View - 10/08/2023 6:20 am CLINICAL HISTORY: ; PAIN; COMPARISON: 09/21/2023 FINDINGS: Negative for acute fracture, dislocation, or radiopaque foreign body. No joint effusion. S purring of the coronoid. IMPRESSION: 1. No acute findings. Electronically signed by: Niko Wolff MD 10/08/2023 07:27 AM CDT RP Due to temporary technical issues with the PACS/Fluency reporting system, reports are being signed by the in house radiologists without review as a courtesy to insure prompt reporting. The interpreting radiologist is fully responsible for the content of the report.
--- NOTE | 2023-10-08 22:42 | RAD REPORT ---
EXAM DESCRIPTION: RAD - Knee Right 3 View - 10/08/2023 6:20 am CLINICAL HISTORY: PAIN COMPARISON: 09/21/2023 FINDINGS: No acute fracture or dislocation. The joint spaces are well preserved. There is very mild medial tibiofemoral joint space narrowing. Mild osteopenia. The soft tissues appear unremarkable. The re is no foreign body. IMPRESSION: 1. No acute findings. Electronically signed by: Niko Wolff MD 10/08/2023 07:30 AM CDT Due to temporary technical issues with the PACS/Fluency reporting system, reports are being signed by the in house radiologists without review as a courtesy to insure prompt reporting. The interpreting radiologist is fully responsible for the content of the report.
== END 2023-10-08 07:08 | disposition home or self-care (01) ==
LOC: ER 04:25
DX: M25.561 Pain in right knee (principal); M25.522 Pain in left elbow